=== PATIENT | female | born 1960 | race Caucasian/White ===

== ENCOUNTER → 2020-05-12 13:29 | Outpatient (BNVA) | payer MEDICAID, SELFPAY | PROVIDERS: Visit Provider Orthopaedic Surgery | DX: M17.11 Unilateral primary osteoarthritis, right knee (principal) | CPT/HCPCS: 99212 ==

== ENCOUNTER → 2020-05-21 13:11 | Outpatient (BNVA) | payer MEDICAID, SELFPAY | PROVIDERS: Visit Provider Nurse Practitioner Family | DX: Z01.818 Encounter for other preprocedural examination (principal) | CPT/HCPCS: 99212 ==

== ENCOUNTER 2020-05-22 11:00 | Outpatient (RCR) | payer MEDICAID, SELFPAY ==
[2020-05-12 15:47] LABS: Estimated Average Glucose 123 mg/dL; Hemoglobin A1c % 5.9 %
== END 2020-06-19 11:48 | disposition home or self-care (01) ==
LOC: HO.PTCHIC 11:00
PROVIDERS: Orthopaedic Surgery; PCP Nurse Practitioner Primary Care; Visit Provider Nurse Practitioner Primary Care
DX: M25.562 Pain in left knee (principal)
CPT/HCPCS: 83036; 97110; 97112; 97140

== ENCOUNTER 2020-05-27 12:56 | Outpatient (REF) | payer MEDICAID, SELFPAY ==
[2020-05-27 13:54] LABS: Hematocrit 41.7 % (37-47); Hemoglobin 14.1 g/dl (12.0-16.0); Mean Corpuscular HGB Conc 33.8 g/dl (31.0-35.0); Mean Corpuscular Hemoglobin 32.1 pg (27.0-33.0); Mean Platelet Volume 9.6 fL (9.4-12.3); Platelet Count 270 X10*3/uL (160-400); Red Blood Count 4.39 X10*6/uL (4.20-5.50); Red Cell Distribution Width 12.4 % (11.0-16.0); White Blood Count 8.3 X10*3/uL (4.8-10.8)
[2020-05-27 14:47] LABS: Alanine Aminotransferase 26 U/L (0-31); Albumin Level 4.2 g/dL (3.5-5.0); Alkaline Phosphatase 84 U/L (39-117); Anion Gap 13 (12-20); Aspartate Amino Transferase 26 U/L (5-31); Bilirubin Total 0.3 mg/dL (0.0-1.0); Blood Urea Nitrogen 17 mg/dL (9-16); Calcium 9.1 mg/dL (8.4-10.2); Carbon Dioxide 27 mmol/L (22-29); Chloride 102 mmol/L (96-108); Estimated Glomerular Filt Rate 52; Glucose Random 233 mg/dL (60-115); Potassium 4.1 mmol/l (3.3-5.1); Sodium 138 mmol/L (135-145); Total Protein 6.8 g/dL (6.5-8.0)
== END 2020-05-27 12:57 | disposition home or self-care (01) ==
LOC: HO.LAB 12:56
PROVIDERS: Visit Provider Nurse Practitioner Family
DX: Z12.11 Encounter for screening for malignant neoplasm of colon (principal)
CPT/HCPCS: 36415; 80053; 85027

== ENCOUNTER → 2020-06-19 13:55 | Outpatient (BNVA) | payer MEDICAID, SELFPAY | PROVIDERS: PCP Nurse Practitioner Primary Care; Visit Provider Internal Medicine Cardiovascular Disease | DX: Z01.810 Encounter for preprocedural cardiovascular examination (principal); R00.2 Palpitations; R06.00 Dyspnea, unspecified; I10 Essential (primary) hypertension | CPT/HCPCS: 93005; 99202 ==

== ENCOUNTER → 2020-07-02 11:39 | Outpatient (REF) | payer MEDICAID, SELFPAY ==
--- NOTE | 2020-07-02 10:00 | CA_ITS ---
Acquisition Time: 2020-07-02 11:50:01 Total Exercise Time: 00:05:06 Test Indications: cp Medications: see chart Protocol: FADI Max HR: 169 BPM 105% of Pred: 160 BPM Max BP: 144/080 mmHG Max Work Load: 7.0 METS Exercise stress nuclear using Fadi protocol, total of 5 min 6 sec. Tolerated well, SOB at the end of exercise, pt is asthmatic and used her rescue inh. METS 7.0 and MAPHR up to 105%=-. EKG without any arrhythmia, no ischemic changes during exercise or in recovery. Nuclear images to follow. Normotensive response to exercise. Test reviewed with Dr. Gold. . Referred By: Ramos Lieberman Overread By: Miko Conrad
--- NOTE | 2020-07-02 11:04 | NM_ITS ---
Exercise Myocardial perfusion study Indication: Shortness of breath to evaluate for myocardial ischemia Technique: The patient was brought in for an exercise perfusion study on 07/02/2020. Patient performed exercise as per Moreno protocol and was injected 30 mCi of sestamibi was given intravenously one target HR was achieved. Images were obtained using the SPECT gamma camera interlaced with the gating device. Images were obtained in supine position. Resting perfusion study was performed on 07/04/2020. Patient was administered 30 mCi of sestamibi intravenously at rest. Images were then obtained in supine position. Images obtained with and without CT attenuation. Total DLP 97 mGy-cm. Images were processed with the software and compared side to side in short axis, horizontal long axis and vertical long axis views. Findings: The stress perfusion study showed non attenuated images show normal uptake of radiotracer in all segments of LV myocardium. Attenuation corrected images show minimally reduced uptake in the apex of the LV myocardium. The gated study shows normal LV systolic function with calculated LVEF of greater than 70 %. LV cavity is normal in size. The gated study shows normal systolic wall thickening and contraction of all segments. There is no transient ischemic dilation. Resting study shows non attenuated images show minimally reduced uptake in the apex of the LV myocardium. Attenuation corrected images show mildly to moderately reduced reduced uptake in a small area of the apex of the LV myocardium. Gating at rest reveals normal systolic wall motion with ejection fraction at 73%. The findings are consistent with normal myocardial perfusion. NM/NM cardiolite stress test Impression: 1. Normal myocardial perfusion 2. Gated LVEF is greater than 70% 3. Transient ischemic dilatation not present Stress EKG is negative for ischemia
== END ==
LOC: HO.CARD 11:39
PROVIDERS: Visit Provider Internal Medicine Cardiovascular Disease
DX: R06.00 Dyspnea, unspecified (principal); I10 Essential (primary) hypertension
CPT/HCPCS: 78452; 93017; A9500

== ENCOUNTER → 2020-07-15 08:23 | Outpatient (REF) | payer MEDICAID, SELFPAY ==
--- NOTE | 2020-07-15 08:26 | CA_ITS ---
Transthoracic Echocardiogram Patient (Last, First, Middle): Rhonda Fernández, Gender: Female Date of : 1960 Age: 59 Procedure Date: 07/15/2020 Procedure Type: Transthoracic Echocardiogram Location: OP Height: 160.02 cm Weight: 86.18 kg BSA: 1.89 m2 Heart Rate: bpm BP: 170 / 90 mmHg Dedicated Driver: TAE Referring MD: Ramos Lieberman MD Symptoms: R00.2 - Palpitations Study Quality: Fair/contrast ECG Rhythm: Sinus Conclusions: - The left ventricular systolic function is normal. The visually estimated ejection fraction is between 60-65%. - No obvious valvular pathology seen on this study. Findings Procedure Information Contrast agent, definity, is being given per protocol without apparent complications. Left Ventricle Normal left ventricular cavity size. There is normal left ventricular wall thickness. The left ventricular systolic function is normal. The visually estimated ejection fraction is between 60-65%. There is no evidence of regional wall motion abnormalities. Diastolic function is normal for age. Right Ventricle Normal right ventricular cavity size and systolic function. Atria Both atria are normal in size. Aortic Valve There is a normal trileaflet aortic valve. There is no aortic valve stenosis. There is trace (trivial) aortic valve regurgitation. Mitral Valve The mitral valve appears normal. There is no mitral valve regurgitation. There is no mitral valve stenosis. Pulmonic Valve The pulmonic valve was not well visualized. Tricuspid Valve Normal tricuspid valve structure. There is trace tricuspid valve regurgitation. The pulmonary artery systolic pressure is normal. Great Vessels The aortic annulus, sinuses of valsalva, and asc aorta are normal in size. Venous The inferior vena cava is normal in size and collapses greater than 50% with inspiration. Pericardium/Pleural There is no evidence of pericardial effusion. Prior Study Comparison No prior study available for comparison. Recommendations, Care & Conclusions No obvious valvular pathology seen on this study. Measurements 2D Linear Measurements IVSd: 0.93 0.6-0.9/0.6-1.0 cm LVIDd: 4.18 3.9-5.3/4.2-5.9 cm LVIDd Index: 2.21 2.4-3.2/2.2-3.1 cm/m2 LVIDs: 2.77 2.0-3.6 cm LVPWd: 0.92 0.7-1.1 cm Ao Root: 3.00 2.1-3.5 cm LA Diam: 2.90 2.7-3.8/3.0-4.0 cm LAIDs Index: 1.53 1.5-2.3 cm/m2 LV Mass: 152.07 67-162/88-224 g LV Mass Index: 80.46 43-95/49-115 g/m2 LVOT Diam: 2.00 3.0+(-)1.3 cm 2D Systolic Function EF 4C: 67.10 >55% EF 2C: 65.70 >55% EF BiP: 66.10 >55% Mitral Valve MV Pk E: 0.90 MV PK A: 1.03 MV Decel Time: 271.00 E/A: 0.90 E'Lateral: 10.40 E'Medial: 10.00 E/E' Med: 9.00 E/E' Lat: 8.60 PHT: 79.00 MVA PHT: 2.78 Decel [place]: 3.31 Aortic Valve AoV Pk Jesus: 1.41 AoV Mn Jesus: 0.95 AoV VTI: 0.29 AoV Pk Grad: 8.00 Aov Mn Grad: 4.00 YAMILKA Cont.VTI: 2.34 LVOT LVOT Pk Jesus: 1.01 LVOT Mn Jesus: 0.61 LVOT VTI: 0.22 LVOT Pk Grad: 4.00 LVOT Mn Grad: 2.00 LVOT Diam: 2.00 LVOT Area: 3.14 Diastolic Function MV Pk E: 0.90 MV Pk A: 1.03 E/A: 0.90 E'Medial: 10.00 E/E' Med: 9.00 E' Laterial: 10.40 E/E' Lat: 8.60 Tricuspid Valve TR Pk Jesus: 2.13 TR Pk Grad: 18.00 RA Press: 3.00 RVSP: 21.00 Great Vessels Aorta Ao Root-2D: 3.00 2.0-3.7 cm Ao Asc: 3.40 2.1-3.4 cm Ao Arch: 2.70 Updated in Other Vendor System with Status of Final Noel Gold MD electronically signed on 07/17/2020 4:31:41 PM with status of Final
--- NOTE | 2020-07-15 08:26 | HM_ITS ---
TEST PERFORMED: Cardiac event monitoring. ENROLLMENT PERIOD: 07/15/2020 to 08/14/2020 - 30 days. REQUESTING PHYSICIAN: Dr. Lieberman. INDICATIONS: Palpitations. FINDINGS: In the above monitoring period of 30 days, the underlying rhythm was sinus. The rates ranged from 70 beats per minute to 124 beats per minute. Rare premature atrial contraction, but no other arrhythmias of concern. The patient's symptoms of chest pain, shortness of breath, palpitations are all associated with sinus rhythm only. CONCLUSION: Essentially unremarkable 30-day event monitoring showing sinus rhythm only. No arrhythmias of significance. Noel Gold MD HS/MODL / [id number]
== END ==
LOC: HO.CARD 08:23
PROVIDERS: Visit Provider Internal Medicine Cardiovascular Disease
DX: R00.2 Palpitations (principal); R07.9 Chest pain, unspecified
CPT/HCPCS: 93225; 93270; 93306; Q9957

== ENCOUNTER → 2020-07-22 10:51 | Outpatient (BNVA) | payer MEDICAID, SELFPAY | PROVIDERS: PCP Nurse Practitioner Primary Care; Visit Provider Orthopaedic Surgery | DX: Z76.89 Persons encountering health services in other specified circumstances (principal) ==

== ENCOUNTER 2020-10-01 12:33 | Outpatient (REF) | payer MEDICAID, SELFPAY ==
[2020-10-01 14:19] LABS: MANUAL DIFF FLAG NO
[2020-10-01 14:22] LABS: Basophils Absolute Auto 0.1 X10*3/uL (0.0-0.2); Basophils Percent Auto 0.7 % (0-2); Eosinophils Absolute Auto 0.2 X10*3/uL (0.0-0.4); Eosinophils Percent Auto 2.1 % (0-4); Hematocrit 39.2 % (37-47); Hemoglobin 13.1 g/dl (12.0-16.0); Imm Gran Abs Auto 0.04 X10*3/uL (0.00-0.03); Imm Gran Pct Auto 0.5 % (0.0-0.4); Lymphocytes Absolute Auto 2.4 X10*3/uL (1.2-4.9); Lymphocytes Percent Auto 27.5 % (20-40); Mean Corpuscular HGB Conc 33.4 g/dl (31.0-35.0); Mean Corpuscular Hemoglobin 32.1 pg (27.0-33.0); Mean Corpuscular Volume 96.1 fL (80-98); Mean Platelet Volume 9.3 fL (9.4-12.3); Monocytes Absolute Auto 0.7 X10*3/uL (0.1-1.2); Monocytes Percent Auto 8.7 % (2-11); Neutrophils Absolute Auto 5.2 X10*3/uL (2.0-8.3); Neutrophils Percent Auto 60.5 % (45-73); Platelet Count 268 X10*3/uL (160-400); Red Blood Count 4.08 X10*6/uL (4.20-5.50); Red Cell Distribution Width 12.5 % (11.0-16.0); White Blood Count 8.6 X10*3/uL (4.8-10.8)
[2020-10-01 14:45] LABS: Anion Gap 9 (12-20); Blood Urea Nitrogen 15 mg/dL (9-16); Calcium 8.9 mg/dL (8.4-10.2); Carbon Dioxide 31 mmol/L (22-29); Chloride 105 mmol/L (96-108); Estimated Glomerular Filt Rate > 60; Glucose Random 99 mg/dL (60-115); Potassium 4.6 mmol/L (3.3-5.1); Sodium 140 mmol/L (135-145)
[2020-10-01 15:27] LABS: Estimated Average Glucose 120 mg/dL; Hemoglobin A1c % 5.8 %
== END 2020-10-01 12:34 | disposition home or self-care (01) ==
LOC: HO.LAB 12:33
PROVIDERS: Orthopaedic Surgery; PCP Nurse Practitioner Primary Care; Visit Provider Internal Medicine Cardiovascular Disease
DX: Z01.810 Encounter for preprocedural cardiovascular examination (principal); I10 Essential (primary) hypertension; R06.00 Dyspnea, unspecified; R00.2 Palpitations
CPT/HCPCS: 36415; 80048; 83036; 85025; 93005; 99212

== ENCOUNTER 2020-10-07 14:20 | Outpatient (REF) | payer MEDICAID, SELFPAY ==
--- NOTE | ~2020-10-07 | MM_ITS ---
EXAMINATION: BONE DENSITOMETRY CLINICAL INDICATION: Screening for osteoporosis. COMPARISON: None (current study represents initial baseline exam). TECHNIQUE: Using Easy Voyage DXA System (software version: 13.1) manufactured by [employer], dual-energy x-ray absorptiometry was performed of the lumbar spine and left hip. The images are of good technical quality. Summary results are attached. FINDINGS: AP SPINE L1-L4: BMD 1.260 g/cm2, Z-score 1.3, T-score 0.7, normal. LEFT FEMUR, NECK: BMD 0.978 g/cm2, Z-score 0.4, T-score -0.4, normal. LEFT FEMUR, TOTAL: BMD 1.043 g/cm2, Z-score 0.8, T-score 0.3, normal. IDENTIFIED RISK FACTORS: Early menopause, secondary osteoporosis. HISTORY OF FRACTURE: None listed. MEDICATIONS: Vitamin D. MM/XR DEXA axial skeleton IMPRESSION: 1. DIAGNOSIS: Normal bone density based on the lowest T-score value of -0.4 in the femoral neck applying World Health Organization criteria. 2. 10-YEAR FRACTURE RISK PREDICTION, FRAX: Major osteoporotic fracture (clinical spine, forearm, hip or shoulder) 3.4%. Hip fracture 0.1%. 3. Treatment Recommendations: NOF guidelines recommend consideration for treatment in postmenopausal women and men age 50 and older presenting with the following: -A hip or vertebral (clinical or morphometric) fracture. -T-score less than or equal to -2.5 at the femoral neck or spine after appropriate evaluation to exclude secondary causes. -Low bone mass at the hip or spine and a 10-year fracture probability by FRAX of greater than or equal to 3% for hip fracture or greater than or equal to 20% for major osteoporotic fracture based on the [place] adapted WHO algorithm. 4. Other Recommendations: All treatment decisions require clinical judgment and consideration of individual patient factors, including patient preferences, comorbidities, previous drug use, risk factors not captured in the FRAX model (e.g. frailty, falls, vitamin D deficiency, increased bone turnover, interval significant decline in bone density) and possible under or overestimation of fracture risk by FRAX. FUTURE SCAN RECOMMENDATION: People with diagnosed cases of osteoporosis or at high risk for fracture should have regular bone mineral density tests. For patients eligible for Medicare, routine testing is allowed once every 2 years. The testing frequency can be increased to one year for patients who have rapidly progressing disease, those who are receiving or discontinuing medical therapy to restore bone mass, or have additional risk factors.
== END 2020-10-07 14:21 | disposition home or self-care (01) ==
LOC: HO.MAMMO 14:20
PROVIDERS: Visit Provider Nurse Practitioner Primary Care
DX: Z13.820 Encounter for screening for osteoporosis (principal); Z78.0 Asymptomatic menopausal state; Z79.899 Other long term (current) drug therapy
CPT/HCPCS: 77080

== ENCOUNTER → 2020-10-22 14:04 | Outpatient (BNVA) | payer MEDICAID, SELFPAY | PROVIDERS: PCP Nurse Practitioner Primary Care; Visit Provider Physician Assistant ==

== ENCOUNTER 2020-10-27 09:53 | Outpatient (REF) | payer MEDICAID, SELFPAY ==
--- NOTE | 2020-10-27 10:58 | ECG_ITS ---
Test Reason : PREOP Blood Pressure : / mmHG Vent. Rate : 073 BPM Atrial Rate : 073 BPM P-R Int : 128 ms QRS Dur : 084 ms QT Int : 414 ms P-R-T Axes : 042 013 032 degrees QTc Int : 456 ms Normal sinus rhythm Normal ECG When compared with ECG of 13-JUN-2017 21:49, No significant change was found Referred By: Chai Sebastian Electronically Signed By:TOBI RIZZO
[2020-10-27 11:44] LABS: MANUAL DIFF FLAG NO
[2020-10-27 11:51] LABS: Basophils Absolute Auto 0.1 X10*3/uL (0.0-0.2); Eosinophils Absolute Auto 0.2 X10*3/uL (0.0-0.4); Eosinophils Percent Auto 3.1 % (0-4); Hematocrit 41.7 % (37-47); Imm Gran Abs Auto 0.04 X10*3/uL (0.00-0.03); Imm Gran Pct Auto 0.6 % (0.0-0.4); Lymphocytes Absolute Auto 1.9 X10*3/uL (1.2-4.9); Lymphocytes Percent Auto 27.5 % (20-40); Mean Corpuscular HGB Conc 33.6 g/dl (31.0-35.0); Mean Corpuscular Hemoglobin 32.3 pg (27.0-33.0); Mean Corpuscular Volume 96.3 fL (80-98); Mean Platelet Volume 9.6 fL (9.4-12.3); Monocytes Absolute Auto 0.7 X10*3/uL (0.1-1.2); Monocytes Percent Auto 9.4 % (2-11); Neutrophils Absolute Auto 4.1 X10*3/uL (2.0-8.3); Neutrophils Percent Auto 58.4 % (45-73); Platelet Count 299 X10*3/uL (160-400); Red Blood Count 4.33 X10*6/uL (4.20-5.50); Red Cell Distribution Width 12.8 % (11.0-16.0); White Blood Count 7.1 X10*3/uL (4.8-10.8)
[2020-10-27 12:22] LABS: Anion Gap 14 (12-20); Blood Urea Nitrogen 20 mg/dL (9-16); Carbon Dioxide 29 mmol/L (22-29); Chloride 103 mmol/L (96-108); Estimated Glomerular Filt Rate 59; Glucose Random 111 mg/dL (60-115); Potassium 4.3 mmol/L (3.3-5.1); Sodium 142 mmol/L (135-145)
== END 2020-10-27 09:54 | disposition home or self-care (01) ==
LOC: HO.LAB 09:53
PROVIDERS: PCP Nurse Practitioner Primary Care; Visit Provider Orthopaedic Surgery
DX: Z01.812 Encounter for preprocedural laboratory examination (principal); Z01.810 Encounter for preprocedural cardiovascular examination
CPT/HCPCS: 36415; 80048; 85025; 93005

== ENCOUNTER 2020-11-04 12:46 | Day surgery (SDC) | payer MEDICAID, SELFPAY ==
--- NOTE | 2020-10-31 09:12 | HO.ANESPROP2 ---
Documented by User: Chiara Young 10/31/20 09:19 HPI - Anesthesia Eval Consult details Narrative: 59yo F for Colonoscopy Cardiac cleared at [facility] opioids prn PMFSH Active Problems Active Problems: All Active Problems (Updated 10/22/20 @ 14:32 by Sue Castellon PA-C) Encounter for screening colonoscopy (Acute) Diabetes mellitus (Acute) Hypertension (Acute) Preoperative cardiovascular examination (Acute) HART (dyspnea on exertion) (Acute) Palpitations (Acute) Primary osteoarthritis of right knee (Acute) Past Medical History Medical History Diabetes mellitus Erosive osteoarthritis Hypertension Obesity Palpitations Primary osteoarthritis of knees, bilateral Primary osteoarthritis of right knee Family History Family History Mother Hx of acute arthritis Father History of Parkinson's disease Surgical History Surgical History H/O Spinal surgery History of Social History Social History Alcohol intake: never Smoking Status: Never smoker Use of substances other than those prescribed or required for medical reasons: No Advance Directives: No Advance Directives Information Provided: Yes Current occupational status: unemployed Current occupation: Right [employer] Meds Allergies Allergy/AdvReac Type Severity Reaction Status Date / Time pineapple [PINEAPPLE] Allergy Unknown TONGUE Verified 10/22/20 14:04 SWELLS Home Medications Medication Instructions Recorded Confirmed Last Taken Type amlodipine 5 mg tablet 5 mg PO DAILY 05/09/20 10/27/20 Unknown History oxycodone-acetaminophen 5 mg-325 1 tab PO Q8H PRN 06/19/20 10/27/20 Unknown History mg tablet metformin 500 mg tablet 500 mg PO BID tab 10/22/20 10/27/20 Unknown History Exam Exam Date and Time: October 31, 2020911 Narrative Narrative: EKG 10/2020 Vent. Rate : 073 BPM Atrial Rate : 073 BPM P-R Int : 128 ms QRS Dur : 084 ms QT Int : 414 ms P-R-T Axes : 042 013 032 degrees QTc Int : 456 ms Normal sinus rhythm Normal ECG When compared with ECG of 13-JUN-2017 21:49, No significant change was found ECHO 06/2020 Conclusions: - The left ventricular systolic function is normal. The visually estimated ejection fraction is between 60-65%. - No obvious valvular pathology seen on this study. NM cardiolite stress test 06/2020 Impression: 1. Normal myocardial perfusion 2. Gated LVEF is greater than 70% 3. Transient ischemic dilatation not present Stress EKG is negative for ischemia 30Day CARLOS CONCLUSION: Essentially unremarkable 30-day event monitoring showing sinus rhythm only. No arrhythmias of significance. Assessment and Plan Assessment Anesthesia Assessment: Chart Reviewed Documented by User: Rebeca Fox 11/04/20 13:09 PMF Past Medical History Medical History Diabetes mellitus Erosive osteoarthritis Hypertension Obesity Palpitations Primary osteoarthritis of knees, bilateral Primary osteoarthritis of right knee Family History Family History Mother Hx of acute arthritis Father History of Parkinson's disease Surgical History Surgical History H/O Spinal surgery History of Social History Social History Alcohol intake: never Smoking Status: Never smoker Use of substances other than those prescribed or required for medical reasons: No Advance Directives: No Advance Directives Information Provided: Yes Current occupational status: unemployed Current occupation: Right [employer] Meds Allergies Allergy/AdvReac Type Severity Reaction Status Date / Time pineapple [PINEAPPLE] Allergy Unknown TONGUE Verified 10/22/20 14:04 SWELLS Home Medications Medication Instructions Recorded Confirmed Last Taken Type amlodipine 5 mg tablet 5 mg PO DAILY 05/09/20 10/27/20 Unknown History oxycodone-acetaminophen 5 mg-325 1 tab PO Q8H PRN 06/19/20 10/27/20 Unknown History mg tablet metformin 500 mg tablet 500 mg PO BID tab 10/22/20 10/27/20 Unknown History Exam Airway Mallampati Class: II TM Dist: >3cm Neck ROM: Full Assessment and Plan Assessment Anesthesia Assessment: Anesthesia Plan Discussed and Chart Reviewed Final Anesthetic Review NPO: Yes ASA Class: III Final Preanesthetic Review: No Changes in Pt Med Stat, Meds/Allgs Chart Reviewed and Consent Obtained/Reviewed Patient Risk: Intermediate Procedure Risk: Low Assessment/Block/Sedation in SS: Assess/Block/Sedation-SS Anesthetic Plan Anesthetic Plan: MAC: Disposition: Standard PACU
[2020-11-04] VITALS (8 sets, daily range): BP systolic 74–116; BP diastolic 32–66; PULSE 63–84; RESP 14–16; TEMP 36.2–36.3; O2SAT 94–99; BMI 32.5
[2020-11-04] MEDS: Lactated Ringers 1,000 ML 100 ML IVCONT (12:53)
--- NOTE | 2020-11-04 12:53 | W.PM.OPN ---
Operative Note Operative Note Date of Service: 11/07/20 Narrative: Pre-op diagnosis: Colon cancer screening Post-op diagnosis: other (Colon polyps, diverticulosis, hemorrhoids) Procedure: COLONOSCOPY TO CECUM WITH BIOPSIES AND SNARE POLYPECTOMY Consent: Indications for the procedure and potential complications of bleeding, perforation, reaction to medications and missed diagnosis were discussed with the patient and informed consent was obtained. Instrument: Olympus PCF H 190 L variable stiffness pediatric colonoscope Monitoring: Vital signs and clinical assessment, intermittent blood pressure monitoring, continuous EKG monitoring, Pulse oximetry and Carbon Dioxide monitoring were done throughout the procedure. Colon withdrawl time was 35 minutes. Procedure: The patient was placed in the left lateral decubitis position and pre-procedure medications were administered. After a digital rectal examination of the ano-rectum, the video colonoscope was inserted into the rectum and advanced through the colon to the cecum. The colonoscope was slowly withdrawn in a retrograde panoramic fashion and the colon mucosa was carefully examined including a retroflexed view of the rectum. Findings and interventions are described below. Procedure Difficulty: Without difficulty Findings: Terminal Ileum: Not evaluated Cecum: Normal Ascending Colon: Normal Transverse Colon: A 4-5 mm diminutive appearing polyp removed with the cold biopsy Descending Colon: Moderate diverticulosis Sigmoid Colon: 4-5 mm sessile polyp removed with the cold biopsy. A 7-8 mm sessile polyp removed with cold snare. A 12-15 mm sessile polyp at 35 cm removed with a hot snare. Moderate diverticulosis Rectum: For 4-5 mm diminutive appearing polyp which was biopsy. Ano-rectum: Small internal hemorrhoids Colon preparation: Good after copious irrigation Impression and Post Procedure Diagnosis: Colonoscopy Findings: Four small to medium sized polyps removed Moderate diverticulosis seen in the left colon Small hemorrhoids on retroflexed exam. Plan: Await pathology results Patient will be sent a letter with biopsy results and recommendations for follow-up colonoscopy. Repeat Colonoscopy interval based on path results - in 3 years if polyps are adenomatous and 10 years if polyps are hyperplastic. Above findings were reviewed with the patient and colon polyps and diverticulosis handouts were given in the discharge area Surgeon: Bonnie Pearson MD Anesthesia: MAC (Lety Harrison CRNA) Supervisor Frame Sample And Pattern: Isadora Ferreira Estimated blood loss (mL): 0 Pathology: other (A. TC polyp x 1, B. SC polyps x 2, C. SC polyp at 35 cms, D. Rectal polyp x 1) Condition: stable Disposition: PACU
--- NOTE | 2020-11-04 12:53 | MHC.SHP ---
Pre-Procedural Eval Section A The patient is an INPATIENT: No Changes since office visit: Yes Patient answered all questions; No Cold of Flu in the past 2 weeks, No New Medical Problems and No Changes in Medication The History & Physical has been completed within 30 days and I have reviewed it.: Yes Section B Chief Complaint: Screening Allergies: Allergies Allergy/AdvReac Type Severity Reaction Status Date / Time pineapple [PINEAPPLE] Allergy Unknown TONGUE Verified 10/22/20 14:04 SWELLS Exam Surgical H&P Exam: Normal: Heart, Normal: Lungs, Normal: Extremities and Normal: Abdomen Plan Diagnosis/Plan: Unchanged I have reviewed the history and physical and performed a pertinent physical examination on my patient. No changes have occurred unless specified.
[2020-11-04 12:55] LABS: Glucose, Whole Blood 96 mg/dL (60-115)
== END 2020-11-04 15:14 | disposition home or self-care (01) ==
PROVIDERS: PCP Nurse Practitioner Primary Care; Visit Provider Internal Medicine Gastroenterology
PROC: 0DJD8ZZ Inspection of Lower Intestinal Tract, Via Natural or Artificial Opening Endoscopic (ICD-10-PCS; CPT 45378; principal; 2020-11-04 13:30)
DX: Z12.11 Encounter for screening for malignant neoplasm of colon (principal); D12.5 Benign neoplasm of sigmoid colon; K62.1 Rectal polyp; K57.30 Diverticulosis of large intestine without perforation or abscess without bleeding; K64.8 Other hemorrhoids; I10 Essential (primary) hypertension; E11.9 Type 2 diabetes mellitus without complications; Z79.84 Long term (current) use of oral hypoglycemic drugs; Z79.899 Other long term (current) drug therapy
CPT/HCPCS: 45385; 45380; 82947; 88305

== ENCOUNTER 2020-11-06 13:01 | Outpatient (RCR) | payer MEDICAID, SELFPAY ==
--- NOTE | 2020-11-06 13:58 | MHC.PT.EP ---
[facility] [place] [facility] [place] [facility] [place] [facility] [address] Reggie Hernandez [address] [phone] F: [phone] F: [phone] F: [phone] F: [phone] Physical Therapy Plan of Care Date of Evaluation: Date of Surgery: Diagnosis: unilateral primary OA, R knee PREHAB R TKA 12/02 Assessment: 60 y/o F referred to PT with R knee OA and prehab for upcoming TKA 12/02/20. She reports pain and difficulty with stairs, walking, and standing. Examination shows decreased R knee AROM, decreased B LE strength, decreased B quad length, and impaired gait pattern. Recommend PT for 2 additional visits prior to surgery for LE strengthening, ROM, and education to prepare for upcoming TKA. Pt will be going to [place] for 2 weeks, therefore distributed extensive HEP for vacation and pt will f/u in 2 visits. Frequency and Duration: The patient will be seen 2x/week for 2 weeks Short Term Goals: 2 weeks: 1. I with HEP Intermediate Goals: 3 weeks: 1. I with HEP 2. Pt will improve R knee AROM to 0-125 3. Pt will demonstrate B LE strength of one MMT grade improvement to faciliate stairs. Treatment Plan: Modalities to reduce pain, spasms and effusion. Manual therapy to restore motion and function. Therapeutic exercise to improve strength and flexibility. Neuromuscular re-education for posture and balance. Therapeutic activities to return to functional activities of daily living. Electronically signed by: Oly Lucas PT DPT Please sign and return to therapist. Thank you for your referral.
--- NOTE | 2020-11-26 15:54 | MHC.PT.DC ---
[facility] [place] [facility] [place] [facility] [place] [facility] [address] [phone] F: [phone] F: [phone] F: [phone] F: [phone] Physical Therapy Discharge Report Diagnosis: unilateral primary OA, R knee PREHAB R TKA 12/02 Date of Surgery: Date of Evaluation: 11/06/20 Date of Discharge: 11/26/20 Treatments to Date: 1 Cancellations to Date: 0 No Shows to Date: 0 Discharge Status: Patient Elected to Stop Discharge Summary: Pt only attended for evaluation and then called to self d/c due to transportation issues. Electronically signed by: Oly Lucas PT DPT Please sign and return to therapist. Thank you for your referral.
== END 2020-11-26 15:55 | disposition home or self-care (01) ==
LOC: HO.PT 13:01
PROVIDERS: PCP Nurse Practitioner Primary Care; Visit Provider Orthopaedic Surgery
DX: M17.11 Unilateral primary osteoarthritis, right knee (principal)
CPT/HCPCS: 97110; 97161

== ENCOUNTER → 2020-11-10 11:52 | Outpatient (BNVA) | payer MEDICAID, SELFPAY | PROVIDERS: PCP Nurse Practitioner Primary Care; Visit Provider Physician Assistant | DX: D12.6 Benign neoplasm of colon, unspecified (principal); K57.30 Diverticulosis of large intestine without perforation or abscess without bleeding; K64.9 Unspecified hemorrhoids | CPT/HCPCS: 99212 ==

== ENCOUNTER 2020-11-27 08:06 | Outpatient (REF) | payer MEDICAID, SELFPAY ==
--- NOTE | ~2020-11-27 | XR_ITS ---
EXAMINATION: XR KNEE, RIGHT CLINICAL INFORMATION: Right knee pain. COMPARISON: None TECHNIQUE: Two views of the right knee. FINDINGS: There is significant loss of medial, lateral and patellofemoral compartment joint space without bony erosive changes or loose bodies. There is minimal suprapatellar joint effusion. No soft tissue abnormality seen. XR/XR knee RT 2V IMPRESSION: Minimal suprapatellar joint effusion. Mild degenerative changes of the tricompartment.
== END 2020-11-27 08:07 | disposition home or self-care (01) ==
LOC: HO.HOSX 08:06
PROVIDERS: Visit Provider Physician Assistant
DX: M17.11 Unilateral primary osteoarthritis, right knee (principal)
CPT/HCPCS: 73560; 99212

== ENCOUNTER 2020-12-02 12:25 | Inpatient (IN) | payer MEDICAID, SELFPAY ==
--- NOTE | 2020-11-27 09:55 | P.CONAN_ITS ---
Documented by User: Chiara Hannah 12/01/20 12:24 HPI - Anesthesia Eval Consult details Narrative: 60yo F for Right Knee Replacement Total Cardiac cleared @ intermed risk PCP cleared PMFSH Active Problems Active Problems: All Active Problems (Updated 11/11/20 @ 08:54 by Sue Castellon PA-C) Hemorrhoids (Acute) Diverticulosis large intestine w/o perforation or abscess w/o bleeding (Acute) Adenomatous colon polyp (Acute) Encounter for screening colonoscopy (Acute) Diabetes mellitus (Acute) Preoperative cardiovascular examination (Acute) HART (dyspnea on exertion) (Acute) Primary osteoarthritis of right knee (Acute) Past Medical History Medical History Asthma COVID-19 vaccine series completed Diabetes mellitus Elevated cholesterol Erosive osteoarthritis Full dentures Hypertension Low back pain Obesity Palpitations Primary osteoarthritis of knees, bilateral Primary osteoarthritis of right knee Family History Family History Mother Hx of acute arthritis Father History of Parkinson's disease Family history of problems with anesthesia: No Surgical History Surgical History H/O Spinal surgery History of Hx of colonoscopy Hx of reduction mammoplasty Hx of tonsillectomy History of Problems with Anesthesia: No Social History Social History Household Members: Other Household Members Other:: Room mate Alcohol intake: never Smoking Status: Never smoker Use of substances other than those prescribed or required for medical reasons: No Current occupational status: unemployed Narrative Narrative: No recent illness. No CP or SOB within limits of pain. Meds Allergies Allergy/AdvReac Type Severity Reaction Status Date / Time pineapple [PINEAPPLE] Allergy Unknown TONGUE Verified 11/27/20 11:11 SWES Home Medications Medication Instructions Recorded Confirmed Last Taken Type amlodipine 5 mg tablet 5 mg PO DAILY 05/09/20 11/27/20 12/02/20 History oxycodone-acetaminophen 5 mg-325 1 tab PO Q8H PRN 06/19/20 11/27/20 Unknown History mg tablet metformin 500 mg tablet 1,000 mg PO BID tab 10/22/20 11/27/20 Unknown History albuterol sulfate [Proventil HFA] 2 puff INHALATION Q4-6H PRN 11/27/20 11/27/20 Unknown History amitriptyline 50 mg PO BEDTIME 11/27/20 11/27/20 Unknown History atorvastatin 40 mg PO BEDTIME 11/27/20 11/27/20 Unknown History baclofen 10 mg PO DAILY 11/27/20 11/27/20 Unknown History fluticasone propionate [Flovent] INHALATION 11/27/20 Unknown History Exam Exam Date and Time: November 27, 2020 0955 Pertinent Lab Results Pertinent Lab Results: Laboratory Tests 10/01/20 10/27/20 10/27/20 14:05 11:05 11:05 WBC 7.1 Hgb 14.0 Hct 41.7 Plt Count 299 Sodium 142 Potassium 4.3 Chloride 103 Carbon Dioxide 29 BUN 20 H Creatinine 0.96 Hemoglobin A1c % 5.8 Lab Results 11/27/20 11/27/20 11/27/20 Range/Units 12:30 13:09 Unknown Estimat Average Glucose 120 mg/dL Hemoglobin A1c % 5.8 % Nasal Screen MRSA (PCR) NEGATIVE (Negative) Nasal S. aureus Screen POSITIVE A (Negative) Nasal MRSA/S.aureus Interp SEE NOTE Blood Type A Positive Antibody Screen NEGATIVE Narrative Narrative: Narrative: EKG 10/2020 Vent. Rate : 073 BPM Atrial Rate : 073 BPM P-R Int : 128 ms QRS Dur : 084 ms QT Int : 414 ms P-R-T Axes : 042 013 032 degrees QTc Int : 456 ms Normal sinus rhythm Normal ECG When compared with ECG of 13-JUN-2017 21:49, No significant change was found ECHO 06/2020 Conclusions: - The left ventricular systolic function is normal. The visually estimated ejection fraction is between 60-65%. - No obvious valvular pathology seen on this study. NM cardiolite stress test 06/2020 Impression: 1. Normal myocardial perfusion 2. Gated LVEF is greater than 70% 3. Transient ischemic dilatation not present Stress EKG is negative for ischemia 30Day CARLOS CONCLUSION: Essentially unremarkable 30-day event monitoring showing sinus rhythm only. No arrhythmias of significance. Airway Mallampati Class: II (Small mouth) TM Dist: >3cm Denture: Upper Partial: Lower Heart: RRR Lungs: CTAB Assessment and Plan Assessment Anesthesia Assessment: Anesthesia Plan Discussed and PAT Visit Documented by User: Rebeca Fox 12/02/20 09:37 PMFSH Past Medical History Medical History Asthma COVID-19 vaccine series completed Diabetes mellitus Elevated cholesterol Erosive osteoarthritis Full dentures Hypertension Low back pain Obesity Palpitations Primary osteoarthritis of knees, bilateral Primary osteoarthritis of right knee Family History Family History Mother Hx of acute arthritis Father History of Parkinson's disease Surgical History Surgical History H/O Spinal surgery History of Hx of colonoscopy Hx of reduction mammoplasty Hx of tonsillectomy Social History Social History Household Members: Other Household Members Other:: Room mate Alcohol intake: never Smoking Status: Never smoker Use of substances other than those prescribed or required for medical reasons: No Current occupational status: unemployed Meds Allergies Allergy/AdvReac Type Severity Reaction Status Date / Time pineapple [PINEAPPLE] Allergy Unknown TONGUE Verified 11/27/20 11:11 SWELLS Home Medications Medication Instructions Recorded Confirmed Last Taken Type amlodipine 5 mg tablet 5 mg PO DAILY 05/09/20 11/27/20 12/02/20 History oxycodone-acetaminophen 5 mg-325 1 tab PO Q8H PRN 06/19/20 11/27/20 Unknown History mg tablet metformin 500 mg tablet 1,000 mg PO BID tab 10/22/20 11/27/20 Unknown History albuterol sulfate [Proventil HFA] 2 puff INHALATION Q4-6H PRN 11/27/20 11/27/20 Unknown History amitriptyline 50 mg PO BEDTIME 11/27/20 11/27/20 Unknown History atorvastatin 40 mg PO BEDTIME 11/27/20 11/27/20 Unknown History baclofen 10 mg PO DAILY 11/27/20 11/27/20 Unknown History fluticasone propionate [Flovent] INHALATION 11/27/20 Unknown History Assessment and Plan Assessment Anesthesia Assessment: Anesthesia Plan Discussed and Chart Reviewed Final Anesthetic Review NPO: Yes ASA Class: III Final Preanesthetic Review: No Changes in Pt Med Stat, Meds/Allgs Chart Review ed, Consent Obtained/Reviewed and Anes Risks/Benef Reviewed Patient Risk: Intermediate Procedure Risk: Intermediate Assessment/Block/Sedation in SS: Assess/Block/Sedation-SS Anesthetic Plan Anesthetic Plan: Spinal and Regional Block Disposition: Standard PACU
[2020-11-27 11:53] VITALS: BP 134/84; PULSE 86; RESP 16; O2SAT 98; BMI 34.0
[2020-11-27 14:37] LABS: MRSA Nasal PCR NEGATIVE (Negative); SA Nasal PCR POSITIVE (Negative)
[2020-11-27 15:12] LABS: Estimated Average Glucose 120 mg/dL; Hemoglobin A1c % 5.8 %
[2020-12-02] VITALS (14 sets, daily range): BP systolic 88–134; BP diastolic 54–74; PULSE 77–97; RESP 12–20; TEMP 35.3–36.6; O2SAT 92–97
--- NOTE | ~2020-12-02 | XR_ITS ---
EXAMINATION: XR KNEE, RIGHT CLINICAL INFORMATION: Knee replacement COMPARISON: Preoperative x-ray 12/03/2020 TECHNIQUE: Two views of the right knee. FINDINGS: There is a new 3 component right knee replacement in satisfactory position. No fracture or dislocation is seen. There are postoperative changes to the soft tissues. XR/XR knee RT 2V IMPRESSION: Satisfactory appearance of right knee replacement.
[2020-12-02] MEDS: ceFAZolin Sodium/Dextrose,Iso 2 GM/50 ML PIGGYBACK IV ×2 (08:11→17:14)
[2020-12-02] MEDS: Gabapentin 600 MG TABLET PO (08:11)
[2020-12-02] MEDS: Lactated Ringers 1,000 ML 100 ML IVCONT (08:12)
[2020-12-02 08:17] LABS: COVID-19 Test Negative (Negative)
[2020-12-02 09:35] LABS: Glucose, Whole Blood 109 mg/dL (60-115)
--- NOTE | 2020-12-02 09:57 | MHC.SHP ---
Pre-Procedural Eval Section A The patient is an INPATIENT: No Changes since office visit: Yes Patient answered all questions; No Cold of Flu in the past 2 weeks, No New Medical Problems and No Changes in Medication The History & Physical has been completed within 30 days and I have reviewed it.: Yes Section B Chief Complaint: Osteoarthritis Right Knee Allergies: Allergies Allergy/AdvReac Type Severity Reaction Status Date / Time pineapple [PINEAPPLE] Allergy Unknown TONGUE Verified 11/27/20 11:11 ROCKY Plan I have reviewed the history and physical and performed a pertinent physical examination on my patient. No changes have occurred unless specified.
--- NOTE | 2020-12-02 12:12 | PM.OP ---
Brief Operative Note Date of Service: 12/02/20 Pre-op diagnosis: right knee OA Post-op diagnosis: same Procedure: RIght TKA Implants: [employer] Surgeon: Chai Sebastian MD Anesthesia: regional and spinal Was an Mobile Application Tester used for this Procedure?: Yes Mobile Application Tester: Ponce Palmer Estimated blood loss (mL): 150 IV fluids (mL): 800 Pathology: other Condition: stable Disposition: PACU
--- NOTE | 2020-12-02 12:13 | W.PM.OPN ---
Operative Note Operative Note Date of Service: 12/02/20 Narrative: Pre-op diagnosis: right knee OA Post-op diagnosis: same Procedure: RIght TKA Implants: [place] [employer] 09/16/A Surgeon: Chai Sebastian MD Anesthesia: regional and spinal Was an Loading Manager used for this Procedure?: Yes Loading Manager: Ponce Palmer Estimated blood loss (mL): 150 IV fluids (mL): 800 Pathology: other Condition: stable Disposition: PACU Procedure in detail: Patient was brought to the operating room and prepped and draped in standard sterile fashion. A time-out was called to identify proper site proper procedure proper surgeon IV antibiotics were administered. 1 g of IV tranexamic acid was also administered. I began by making a midline incision down to the retinaculum and performed a medial parapatellar arthrotomy. The patella was translated laterally and the knee was flexed up. I performed a small medial peel and resected the infrapatellar fat pad. There was eburnation of the medial compartment. Mathews's line was then used to drill my intramedullary femoral guide and my distal femur cut was made in 5 degrees of valgus. I then measured a 3 femur and placed my cutting guide and made my anterior posterior and chamfer cuts protecting the soft tissues at all times. Once I was happy with my cut I turned my attention to the tibia. In line with the tibial crest and with a 3 degree posterior slope I made my distal tibial cut protecting the PCL the posterior soft tissues at all times. An extension block was used to confirm appropriate amount of bony resection. I then sized a 2 tibia and which provided tibial coverage I placed my trial and with the trial femur in place took the knee through range of motion. I was satisfied with the extension and flexion as well as the stability at 0, 30 and 90 degrees. This was a varus knee with tight MCL. An medioal peel and anterior release was perfromed. I then turned my attention to the patella where I removed 1 cm from the undersurface of the patella and then trialed a 29a patellar button . Again the knee was taken through range of motion I was satisfied with the tracking. I then returned to the femur and drilled my femoral lug holes and prepared the tibia. Femoral bone plug was then placed and the knee was irrigated copiously. I then press fit the patella, tibia and femur in standard fashion. I trialed different inserts until I was satisfied with a 9. There was full extension and stable thorughout her full arc of motion. I then placed the final insert and performed a 3 minutes iodine soak with local TXA. The knee was then closed with a running Quill suture, a 3 0 Vicryl and elmira on the skin. Patient was then placed in sterile dressing and brought to recovery room in stable condition. There were no known complications.
[2020-12-02] MEDS: oxyCODONE HCl Immed Release 5 MG TABLET PO ×3 (13:44→21:50)
[2020-12-02] MEDS: Acetaminophen 325 MG TABLET 650 MG PO ×2 (13:44→20:20)
[2020-12-02] MEDS: Sodium Chloride 0.45 % 1,000 ML 80 ML IVCONT (14:58)
--- NOTE | 2020-12-02 15:41 | PM.IMCN ---
History of Present Illness Data of Consult Service Date: 12/02/20 Primary Care Provider: Rose Mary Castellano NP [facility] Reason for consult: Diabetes A 60 years old lady with PMH of diabetes type 2, osteoarthritis among others who presented to the hospital for elective right knee arthroplasty. Surgery went well. Orthopedic team as the hospitalist team to evaluate the patient for her medical problems and diabetes control. Review of Systems Review of Systems: No fever, chills or weakness No chest pain, palpitation No shortness of breath or coughing No abdominal pain, nausea or vomiting No urinary symptoms No any rash or wounds PMFSH Medical History Asthma COVID-19 vaccine series completed Diabetes mellitus Elevated cholesterol Erosive osteoarthritis Full dentures Hypertension Low back pain Obesity Palpitations Primary osteoarthritis of knees, bilateral Primary osteoarthritis of right knee Family History Mother Hx of acute arthritis Father History of Parkinson's disease Surgical History H/O Spinal surgery History of Hx of colonoscopy Hx of reduction mammoplasty Hx of tonsillectomy Social History Household Members: Other Household Members Other:: Room mate Housing: Apartment Are you a primary patient care representative to a significant other at home: No Do you presently have visiting nurse or other home services: Yes ([employer]) Alcohol intake: never Smoking Status: Never smoker Use of substances other than those prescribed or required for medical reasons: No Have you been hit, kicked, punched, or otherwise hurt by someone within the past year? If so, by whom?: No Do you feel safe in your current relationship?: No Current Relationship Is there a partner from a previous relationship who is making you feel unsafe now?: No Are you made to feel afraid or neglected: No Spiritual Healthcare Practices: none Nondenominational Healthcare Practices: none Cultural Healthcare Practices: none Are you DNR?: No Advance Directives: No Advance Directives Information Provided: No Advance Directives on File: No Do you have thoughts of harming others: None Do you have a plan to hurt others: No Plan Recently lost weight without trying: No Eating poorly because of decreased appetite: No Nutrition Risks: No Nutritional Risk Patient : No Current occupational status: unemployed Meds Allergies Allergy/AdvReac Type Severity Reaction Status Date / Time pineapple [PINEAPPLE] Allergy Unknown TONGUE Verified 11/27/20 11:11 SWELLS Active Medications: Current Medications Generic Name Dose Route Start Last Admin Trade Name Freq PRN Reason Stop Dose Admin Acetaminophen 650 mg 12/02/20 14:35 Acetaminophen 325 Mg Tablet PO Q6H PRN Pain, Mild (Pain Scale 1-3) Albuterol Sulfate 2 puff 12/02/20 15:19 Albuterol Sulfate 90 Mcg 8 Gm Inhaler INHALE Q4H PRN Shortness Of Breath Or Wheezing Amitriptyline HCl 50 mg 12/02/20 21:00 Amitriptyline Hcl 50 Mg Tablet PO BEDTIME [facility] Amlodipine Besylate 5 mg 12/03/20 09:00 Amlodipine Besylate 5 Mg Tablet PO DAILY [facility] Protocol Aspirin 325 mg 12/03/20 11:00 Aspirin 325 Mg Tablet PO BID [facility] Atorvastatin Calcium 40 mg 12/02/20 21:00 Atorvastatin Calcium 40 Mg Tablet PO BEDTIME [facility] Baclofen 10 mg 12/03/20 09:00 Baclofen 10 Mg Tablet PO DAILY [facility] Celecoxib 200 mg 12/02/20 21:00 Celecoxib 200 Mg Capsule PO BID [facility] Docusate Sodium 100 mg 12/02/20 21:00 Docusate Sodium 100 Mg Capsule PO BID [facility] Hydrochlorothiazide 12.5 mg 12/03/20 09:00 Hydrochlorothiazide 12.5 Mg Tablet PO DAILY [facility] Protocol Hydromorphone HCl 0.25 mg 12/02/20 14:35 Hydromorphone Hcl 0.5 Mg/0.5 Ml Syringe IVPUSH Q4H PRN Pain, Severe (Pain Scale 7-10) Cefazolin Sodium/Dextrose 2 gm in 50 mls @ 100 mls/hr 12/02/20 16:30 Ancef IV 12/02/20 16:59 POSTOP ONE Sodium Chloride 1,000 mls @ 80 mls/hr 12/02/20 14:35 12/02/20 14:58 IVCONT 80 mls/hr .[id number] [facility] Administration Insulin Human Lispro 0 unit 12/02/20 16:30 Insulin Lispro 100 Unit/Ml 3 Ml Vial SUBCUT QIDACHS [facility] Protocol Naloxone HCl 0.2 mg 12/02/20 14:35 Naloxone Hcl 0.4 Mg/Ml Vial IVPUSH Q2M PRN Excessive sedation or RR < 8 Ondansetron HCl 4 mg 12/02/20 14:35 Ondansetron Hcl 4 Mg/2 Ml Vial IVPUSH Q8H PRN Nausea and Vomiting Oxycodone HCl 5 mg 12/02/20 14:35 Oxycodone Hcl Immed Release 5 Mg Tablet PO Q4H PRN Pain, Moderate (Pain Scale 4-6 Oxycodone HCl 10 mg 12/02/20 21:00 Oxycodone Hcl Er 10 Mg Tab.Er.12h PO BID [facility] Sodium Chloride 3 ml 12/02/20 16:00 12/02/20 15:31 0.9 % Sodium Chloride Flush 3 Ml Syringe IVFLUSH Not Given QSHIFT [facility] Home Medications Medication Instructions Recorded Confirmed Last Taken Type amlodipine 5 mg tablet 5 mg PO DAILY 05/09/20 11/27/20 12/02/20 History oxycodone-acetaminophen 5 mg-325 1 tab PO Q8H PRN 06/19/20 11/27/20 Unknown History mg tablet metformin 500 mg tablet 1,000 mg PO BID tab 10/22/20 11/27/20 Unknown History albuterol sulfate [Proventil HFA] 2 puff INHALATION Q4-6H PRN 11/27/20 11/27/20 Unknown History amitriptyline 50 mg PO BEDTIME 11/27/20 11/27/20 Unknown History atorvastatin 40 mg PO BEDTIME 11/27/20 11/27/20 Unknown History baclofen 10 mg PO DAILY 11/27/20 11/27/20 Unknown History fluticasone propionate [Flovent] 110 mcg INHALATION BID 11/27/20 12/02/20 Unknown History Physical Exam Vital Signs and Narrative: Vital Signs: Last Vital Signs Temp 95.5 F L 12/02/20 15:05 Pulse 88 12/02/20 15:05 Resp 20 12/02/20 15:05 BP 100/64 12/02/20 15:05 Pulse Ox 96 12/02/20 15:05 Body Mass Index 34.0 Const: Other: Constitutional : Alert, oriented, not in distress Neck : Normal inspection, Supple Cardiovascular : RRR, S1 S2, no lower extremity edema Respiratory : Good bilateral air entry, no crackles, wheezes or rhonchi Gastrointestinal: soft, lax, Normal bowel sounds, Non tender Skin : Warm/Dry, No rash, right knee in dressing with no drainage noted Neurological : Alert & oriented x3, No focal deficit Results Labs Labs: Laboratory Results - last 24 hr 12/02/20 12/02/20 07:45 08:15 POC Glucose 109 COVID-19 (MARJORIE) Negative COVID-19 Clin Com See Note Imaging Radiologist's Impressions: Impressions Knee X-Ray 12/02/20 12:52 IMPRESSION: Satisfactory appearance of right knee replacement. Assessment and Plan (1) Diabetes mellitus: Problem details: NIDDM Status: Acute A 60 years old lady with PMH of diabetes type 2, osteoarthritis among others who presented to the hospital for elective right knee arthroplasty. Diabetes type 2 Hold oral medications SSI next diabetic diet HLD continue atorvastatin Hypertension Continue amlodipine and hydrochlorothiazide Right knee arthroplasty Plan by orthopedic team DVT PPX per primary team. Thank you for the consult, will continue to follow the patient with you.
[2020-12-02 16:28] LABS: Glucose, Whole Blood 187 mg/dL (60-115)
[2020-12-02] MEDS: Insulin Lispro 100 UNIT/ML 3 ML VIAL SUBCUT ×2 (17:58→20:19)
[2020-12-02 20:20] LABS: Glucose, Whole Blood 311 mg/dL (60-115)
[2020-12-02] MEDS: oxyCODONE HCl ER 10 MG TAB.ER.12H PO (20:21)
[2020-12-02] MEDS: Celecoxib 200 MG CAPSULE PO (20:21)
[2020-12-02] MEDS: Docusate Sodium 100 MG CAPSULE PO (20:21)
[2020-12-02] MEDS: Atorvastatin Calcium 40 MG TABLET PO (20:21)
[2020-12-02] MEDS: Amitriptyline HCl 50 MG TABLET PO (20:21)
[2020-12-02] MEDS: HYDROmorphone HCl 0.5 MG/0.5 ML SYRINGE 0.25 MG IVPUSH (22:54)
[2020-12-02] MEDS: 0.9 % Sodium Chloride Flush 3 ML SYRINGE IVFLUSH (23:30)
[2020-12-03] VITALS (10 sets, daily range): BP systolic 86–103; BP diastolic 55–70; PULSE 70–86; RESP 12–20; TEMP 35.5–36.3; O2SAT 92–97
[2020-12-03] MEDS: Sodium Chloride 0.45 % 1,000 ML 80 ML IVCONT ×2 (03:43→17:03)
[2020-12-03] MEDS: HYDROmorphone HCl 0.5 MG/0.5 ML SYRINGE 0.25 MG IVPUSH (03:52)
[2020-12-03 07:23] LABS: Basophils Percent Auto 0.1 % (0-2); Hematocrit 33.2 % (37-47); Hemoglobin 11.2 g/dl (12.0-16.0); Imm Gran Abs Auto 0.13 X10*3/uL (0.00-0.03); Imm Gran Pct Auto 0.7 % (0.0-0.4); Lymphocytes Absolute Auto 1.1 X10*3/uL (1.2-4.9); Lymphocytes Percent Auto 5.7 % (20-40); MANUAL DIFF FLAG SCAN; Mean Corpuscular HGB Conc 33.7 g/dl (31.0-35.0); Mean Corpuscular Hemoglobin 32.4 pg (27.0-33.0); Mean Platelet Volume 9.6 fL (9.4-12.3); Monocytes Absolute Auto 1.7 X10*3/uL (0.1-1.2); Monocytes Percent Auto 9.1 % (2-11); Neutrophils Absolute Auto 15.6 X10*3/uL (2.0-8.3); Neutrophils Percent Auto 84.4 % (45-73); Platelet Count 236 X10*3/uL (160-400); Red Blood Count 3.46 X10*6/uL (4.20-5.50); Red Cell Distribution Width 12.8 % (11.0-16.0); SCAN SMEAR FLAG 1; White Blood Count 18.5 X10*3/uL (4.8-10.8)
[2020-12-03 07:42] LABS: Glucose, Whole Blood 165 mg/dL (60-115)
[2020-12-03 07:59] LABS: Anion Gap 13 (12-20); Blood Urea Nitrogen 18 mg/dL (9-16); Calcium 8.8 mg/dL (8.4-10.2); Carbon Dioxide 27 mmol/L (22-29); Chloride 102 mmol/L (96-108); Creatinine Clr Calc Pharmacy 63.2; Estimated Glomerular Filt Rate > 60; Glucose Fasting 169 mg/dL (60-99); Potassium 4.4 mmol/L (3.3-5.1); Sodium 138 mmol/L (135-145)
--- NOTE | 2020-12-03 08:04 | PM.PNORT ---
Subjective Subjective Date of Service: 12/03/20 Interval history: POD 1 s/p RT TKA No overnight events States she has not been out of bed yet Has been using the bed winn Denies cp, sob, dizziness. Physical Exam Vital Signs: Vital Signs: Last Vital Signs Temp 96.9 F 12/03/20 07:18 Pulse 77 12/03/20 07:18 Resp 18 12/03/20 07:18 BP 103/66 12/03/20 07:18 Pulse Ox 92 12/03/20 07:18 Body Mass Index 34.0 Const: General: cooperative, healthy appearing and no acute distress Resp: Effort & Inspection: normal respiratory effort and able to speak in complete sentences Cardio: Rate: regular rate Peripheral pulses: Peripheral pulses 2+ throughout GI: Palpation (GI): Soft to palpation Skin: General skin exam: no rashes or lesions noted Extrem: Other: bandage clean dry and intact. [place] intact. No erythema or joint effusion. Calf supple nontender. Neurovascularly intact. Progress Note: A&P Assessment and plan (1) Status post total right knee replacement: Status: Acute Assessment and Plan: Continue pain mgmnt Begin Aspirin for dvt ppx begin PT for RT TKA Dispo planning-Pending PT eval, pain mgmnt Fall Risk Details Current Medications: Current Medications Generic Name Dose Route Start Last Admin Trade Name Ralphq PRN Reason Stop Dose Admin Acetaminophen 650 mg 12/02/20 14:35 12/02/20 20:20 Acetaminophen 325 Mg Tablet PO 650 mg Q6H PRN Administration Pain, Mild (Pain Scale 1-3) Albuterol Sulfate 2 puff 12/02/20 15:19 Albuterol Sulfate 90 Mcg 8 Gm Inhaler INHALE Q4H PRN Shortness Of Breath Or Wheezing Amitriptyline HCl 50 mg 12/02/20 21:00 12/02/20 20:21 Amitriptyline Hcl 50 Mg Tablet PO 50 mg BEDTIME RAGHU Administration Amlodipine Besylate 5 mg 12/03/20 09:00 Amlodipine Besylate 5 Mg Tablet PO DAILY [facility] Protocol Aspirin 325 mg 12/03/20 11:00 Aspirin 325 Mg Tablet PO BID RAGHU Atorvastatin Calcium 40 mg 12/02/20 21:00 12/02/20 20:21 Atorvastatin Calcium 40 Mg Tablet PO 40 mg BEDTIME RAGHU Administration Baclofen 10 mg 12/03/20 09:00 Baclofen 10 Mg Tablet PO DAILY [facility] Celecoxib 200 mg 12/02/20 21:00 12/02/20 20:21 Celecoxib 200 Mg Capsule PO 200 mg BID RAGHU Administration Docusate Sodium 100 mg 12/02/20 21:00 12/02/20 20:21 Docusate Sodium 100 Mg Capsule PO 100 mg BID RAGHU Administration Hydrochlorothiazide 12.5 mg 12/03/20 09:00 Hydrochlorothiazide 12.5 Mg Tablet PO DAILY [facility] Protocol Hydromorphone HCl 0.25 mg 12/02/20 14:35 12/03/20 03:52 Hydromorphone Hcl 0.5 Mg/0.5 Ml Syringe IVPUSH 0.25 mg Q4H PRN Administration Pain, Severe (Pain Scale 7-10) Sodium Chloride 1,000 mls @ 80 mls/hr 12/02/20 14:35 12/03/20 03:43 IVCONT 80 mls/hr .[id number] RAGHU Administration Insulin Human Lispro 0 unit 12/02/20 16:30 12/02/20 20:19 Insulin Lispro 100 Unit/Ml 3 Ml Vial SUBCUT 8 unit QIDACHS [facility] Administration Protocol Naloxone HCl 0.2 mg 12/02/20 14:35 Naloxone Hcl 0.4 Mg/Ml Vial IVPUSH Q2M PRN Excessive sedation or RR < 8 Ondansetron HCl 4 mg 12/02/20 14:35 Ondansetron Hcl 4 Mg/2 Ml Vial IVPUSH Q8H PRN Nausea and Vomiting Oxycodone HCl 5 mg 12/02/20 14:35 12/02/20 21:50 Oxycodone Hcl Immed Release 5 Mg Tablet PO 5 mg Q4H PRN Administration Pain, Moderate (Pain Scale 4-6 Oxycodone HCl 10 mg 12/02/20 21:00 12/02/20 20:21 Oxycodone Hcl Er 10 Mg Tab.Er.12h PO 10 mg BID [facility] Administration Sodium Chloride 3 ml 12/02/20 16:00 12/02/20 23:30 0.9 % Sodium Chloride Flush 3 Ml Syringe IVFLUSH 3 ml QSHIFT [facility] Administration Time Spent With Patient Time: Total time spent is greater than 50% in coordination of care (as documented) at patient's floor/unit and/or counseling patient: Time with patient: less than 15 minutes Procedures Date of Service Date of Service: 12/03/20
[2020-12-03 08:13] LABS: SLIDE REVIEW VERIFIED
[2020-12-03] MEDS: Insulin Lispro 100 UNIT/ML 3 ML VIAL SUBCUT ×3 (08:14→20:42)
[2020-12-03] MEDS: amLODIPine Besylate 5 MG TABLET PO (08:15)
[2020-12-03] MEDS: hydroCHLOROthiazide 12.5 MG TABLET PO (08:15)
[2020-12-03] MEDS: oxyCODONE HCl ER 10 MG TAB.ER.12H PO ×2 (08:15→20:20)
[2020-12-03] MEDS: Baclofen 10 MG TABLET PO (08:15)
[2020-12-03] MEDS: Celecoxib 200 MG CAPSULE PO ×2 (08:16→20:20)
[2020-12-03] MEDS: Docusate Sodium 100 MG CAPSULE PO ×2 (08:17→20:20)
[2020-12-03] MEDS: Aspirin 325 MG TABLET PO ×2 (09:37→20:19)
[2020-12-03] MEDS: oxyCODONE HCl Immed Release 5 MG TABLET PO ×3 (09:37→20:19)
--- NOTE | 2020-12-03 10:24 | HO.POSTANES ---
Post Anesthesia Evaluation Post Anesthesia Evaluation Vital Signs: Vital Signs Temp Pulse Resp BP Pulse Ox 12/03/20 08:59 77 103/66 92 12/03/20 07:18 96.9 F 77 18 103/66 92 12/03/20 05:00 20 12/03/20 03:38 96 F L 82 18 102/64 94 12/02/20 23:19 97.9 F 85 18 112/56 L 92 12/02/20 22:56 86 20 105/57 L Anesthesia: Spinal and Nerve Block Mental Status: Awake Pain Control: Satisfactory Nausea/Vomiting: None Hydration: Adequate Anesthesia-Related Issues: No Anes. Related Issues
[2020-12-03 11:32] LABS: Glucose, Whole Blood 209 mg/dL (60-115)
--- NOTE | 2020-12-03 11:41 | HO.PM.IMPN ---
Subjective Subjective Date of Service: 12/03/20 Interval History: the patient was seen and evaluated this morning Laying in bed, feels comfortable overall as the pain in her right knee improved WBCs increased this morning Denies any fever, chills or shortness of breath No reported other overnight events. Review of Systems No fever, chills or weakness No chest pain, palpitation No shortness of breath or coughing No abdominal pain, nausea or vomiting No urinary symptoms No any rash or wounds Physical Exam Vital Signs: Vital Signs: Last Vital Signs Temp 96.9 F 12/03/20 07:18 Pulse 77 12/03/20 08:59 Resp 18 12/03/20 07:18 BP 103/66 12/03/20 08:59 Pulse Ox 92 12/03/20 08:59 Body Mass Index 34.0 Const: Other: Constitutional : Alert, oriented, not in distress Neck : Normal inspection, Supple Cardiovascular : RRR, S1 S2, no lower extremity edema Respiratory : Good bilateral air entry, no crackles, wheezes or rhonchi Gastrointestinal: soft, lax, Normal bowel sounds, Non tender Skin : Warm/Dry, No rash, right knee in dressing with no drainage noted Neurological : Alert & oriented x3, No focal deficit Objective Data Current Medications Generic Name Dose Route Start Last Admin Trade Name Freq PRN Reason Stop Dose Admin Acetaminophen 650 mg 12/02/20 14:35 12/02/20 20:20 Acetaminophen 325 Mg Tablet PO 650 mg Q6H PRN Administration Pain, Mild (Pain Scale 1-3) Albuterol Sulfate 2 puff 12/02/20 15:19 Albuterol Sulfate 90 Mcg 8 Gm Inhaler INHALE Q4H PRN Shortness Of Breath Or Wheezing Amitriptyline HCl 50 mg 12/02/20 21:00 12/02/20 20:21 Amitriptyline Hcl 50 Mg Tablet PO 50 mg BEDTIME RAGHU Administration Amlodipine Besylate 5 mg 12/03/20 09:00 12/03/20 08:15 Amlodipine Besylate 5 Mg Tablet PO 5 mg DAILY RAGHU Administration Protocol Aspirin 325 mg 12/03/20 11:00 12/03/20 09:37 Aspirin 325 Mg Tablet PO 325 mg BID RAHGU Administration Atorvastatin Calcium 40 mg 12/02/20 21:00 12/02/20 20:21 Atorvastatin Calcium 40 Mg Tablet PO 40 mg BEDTIME RAGHU Administration Baclofen 10 mg 12/03/20 09:00 12/03/20 08:15 Baclofen 10 Mg Tablet PO 10 mg DAILY RAGHU Administration Celecoxib 200 mg 12/02/20 21:00 12/03/20 08:16 Celecoxib 200 Mg Capsule PO 200 mg BID RAGHU Administration Docusate Sodium 100 mg 12/02/20 21:00 12/03/20 08:17 Docusate Sodium 100 Mg Capsule PO 100 mg BID RAGHU Administration Hydrochlorothiazide 12.5 mg 12/03/20 09:00 12/03/20 08:15 Hydrochlorothiazide 12.5 Mg Tablet PO 12.5 mg DAILY RAGHU Administration Protocol Hydromorphone HCl 0.25 mg 12/02/20 14:35 12/03/20 03:52 Hydromorphone Hcl 0.5 Mg/0.5 Ml Syringe IVPUSH 0.25 mg Q4H PRN Administration Pain, Severe (Pain Scale 7-10) Sodium Chloride 1,000 mls @ 80 mls/hr 12/02/20 14:35 12/03/20 03:43 IVCONT 80 mls/hr .[id number] RAGHU Administration Insulin Human Lispro 0 unit 12/02/20 16:30 12/03/20 08:14 Insulin Lispro 100 Unit/Ml 3 Ml Vial SUBCUT 2 unit QIDACHS [facility] Administration Protocol Naloxone HCl 0.2 mg 12/02/20 14:35 Naloxone Hcl 0.4 Mg/Ml Vial IVPUSH Q2M PRN Excessive sedation or RR < 8 Ondansetron HCl 4 mg 12/02/20 14:35 Ondansetron Hcl 4 Mg/2 Ml Vial IVPUSH Q8H PRN Nausea and Vomiting Oxycodone HCl 5 mg 12/02/20 14:35 12/03/20 09:37 Oxycodone Hcl Immed Release 5 Mg Tablet PO 5 mg Q4H PRN Administration Pain, Moderate (Pain Scale 4-6 Oxycodone HCl 10 mg 12/02/20 21:00 12/03/20 08:15 Oxycodone Hcl Er 10 Mg Tab.Er.12h PO 10 mg BID RAGHU Administration Sodium Chloride 3 ml 12/02/20 16:00 12/03/20 08:16 0.9 % Sodium Chloride Flush 3 Ml Syringe IVFLUSH Not Given QSHIFT [facility] Labs CBC & Chem 7: 12/03/20 06:14 12/03/20 06:14 Assessment and Plan (1) Diabetes mellitus: Problem details: NIDDM Status: Acute Assessment and Plan: A 60 years old lady with PMH of diabetes type 2, osteoarthritis among others who presented to the hospital for elective right knee arthroplasty. Leukocytosis No source of infection identified, no fever or chills reported Continue incentive spirometry Hold on antibiotics for the time being Diabetes type 2 Hold oral medications SSI diabetic diet HLD continue atorvastatin Hypertension Continue amlodipine and hydrochlorothiazide Right knee arthroplasty Plan by orthopedic team DVT PPX per primary team. Thank you for the consult, will continue to follow the patient with you.
--- NOTE | 2020-12-03 15:44 | PC.NURSE ---
p low BP 86/55pulse [address] Hsu notified E patient asymptomatic
--- NOTE | 2020-12-03 16:13 | MHC.CM.PN ---
CALL TO PROTOZOOLOGY TEACHER @ [phone]. CURRENTLY AWAITING ARRIVAL FOR CASE MANAGEMENT ASSESSMENT PURPOSES
[2020-12-03 16:27] LABS: Glucose, Whole Blood 131 mg/dL (60-115)
[2020-12-03] MEDS: Atorvastatin Calcium 40 MG TABLET PO (20:20)
[2020-12-03] MEDS: Amitriptyline HCl 50 MG TABLET PO (20:20)
[2020-12-03 20:43] LABS: Glucose, Whole Blood 208 mg/dL (60-115)
[2020-12-04 00:18] VITALS: BP 99/55; PULSE 78; RESP 16; TEMP 36.3; O2SAT 95
[2020-12-04 03:52] VITALS: BP 95/52; PULSE 78; RESP 16; TEMP 36.1; O2SAT 92
[2020-12-04 06:48] LABS: Basophils Percent Auto 0.2 % (0-2); Eosinophils Absolute Auto 0.1 X10*3/uL (0.0-0.4); Eosinophils Percent Auto 0.9 % (0-4); Hematocrit 31.9 % (37-47); Hemoglobin 10.5 g/dl (12.0-16.0); Imm Gran Abs Auto 0.08 X10*3/uL (0.00-0.03); Imm Gran Pct Auto 0.6 % (0.0-0.4); Lymphocytes Absolute Auto 2.6 X10*3/uL (1.2-4.9); Lymphocytes Percent Auto 18.9 % (20-40); MANUAL DIFF FLAG NO; Mean Corpuscular HGB Conc 32.9 g/dl (31.0-35.0); Mean Corpuscular Hemoglobin 32.2 pg (27.0-33.0); Mean Corpuscular Volume 97.9 fL (80-98); Mean Platelet Volume 9.5 fL (9.4-12.3); Monocytes Absolute Auto 1.5 X10*3/uL (0.1-1.2); Monocytes Percent Auto 10.8 % (2-11); Neutrophils Absolute Auto 9.6 X10*3/uL (2.0-8.3); Neutrophils Percent Auto 68.6 % (45-73); Platelet Count 192 X10*3/uL (160-400); Red Blood Count 3.26 X10*6/uL (4.20-5.50); Red Cell Distribution Width 13.1 % (11.0-16.0); White Blood Count 13.9 X10*3/uL (4.8-10.8)
[2020-12-04] MEDS: oxyCODONE HCl Immed Release 5 MG TABLET PO ×2 (06:51→11:33)
[2020-12-04 07:04] LABS: Anion Gap 10 (12-20); Blood Urea Nitrogen 27 mg/dL (9-16); Calcium 8.4 mg/dL (8.4-10.2); Carbon Dioxide 27 mmol/L (22-29); Chloride 104 mmol/L (96-108); Creatinine Clr Calc Pharmacy 57.7; Estimated Glomerular Filt Rate 54; Glucose Fasting 162 mg/dL (60-99); Potassium 4.1 mmol/L (3.3-5.1); Sodium 137 mmol/L (135-145)
--- NOTE | 2020-12-04 07:25 | P.F2F_ITS ---
Service Date Service Date: 12/04/20 Encounter Date of encounter: 12/04/20 Reasons for Services Reason for physical therapy: home safety and mobility, therapeutic exercises, restore joint function, gait/transfer training and ADL training Reason for occupational therapy: home safety and mobility, therapeutic exercises, restore joint function, gait/transfer training, assess need for DME and ADL training Homebound: Leaving the home is medically contraindicated at this time without the asist of a device and/or another person due th the listed conditions above and below. Reason homebound: unsteady gait / fall risk, leg weakness, pain with ambulation, pain with transfers, poor balance / fall risk and unable to drive Homebound supporting statement: Pt. is considered homebound due to recent surgery. Unable to drive, poor balance, poor gait mechanics. Certification: Based on the above findings, I certify that this patient is confined to the home and needs intermittent shelter care, physical therapy and/or speech therapy, or continues to need occupational therapy. The patient is under my care, and I have initiated the establishment of the plan of care. The patient will be followed by a physician who will periodically review the plan of care.
--- NOTE | 2020-12-04 07:26 | PM.DS ---
DS: Providers Provider Date of Service: 12/04/20 Date of admission: 12/02/20 12:25 Primary care physician: Rose Mary Castellano NP Consults: 12/02/20 14:35 Consult to Hospitalist Routine Consulting Provider: Hospitalist Reason For Exam: DIABETES DS: Diagnosis Discharge Diagnosis (1) Diabetes mellitus: Problem details: NIDDM (2) Status post total right knee replacement: Status: Acute Problem details: Ms. Gerry Mclaughlin is a 60 yo female who presented to the office with ongoing right knee pain. She was found to have OA of the right knee and had failed all conservative treatment. She continued to have difficulty with ambulation and daily activities; therefore she consented to move forward with Right total knee arthroplasty. DS: Medications Discharge Medications Home Medications: Home Medications Medication Instructions Recorded Confirmed amlodipine 5 mg tablet 5 mg PO DAILY 05/09/20 11/27/20 metformin 500 mg tablet 1,000 mg PO BID tab 10/22/20 11/27/20 albuterol sulfate [Proventil HFA] 2 puff INHALATION Q4-6H PRN 11/27/20 11/27/20 amitriptyline 50 mg PO BEDTIME 11/27/20 11/27/20 atorvastatin 40 mg PO BEDTIME 11/27/20 11/27/20 baclofen 10 mg PO DAILY 11/27/20 11/27/20 fluticasone propionate 110 mcg INHALATION BID 11/27/20 12/02/20 Previous Rx's Medication Instructions Recorded hydrochlorothiazide 12.5 mg tablet 12.5 mg PO DAILY 90 Days #90 tab 10/13/20 acetaminophen 650 mg PO Q6H PRN 30 Days #240 tab 12/03/20 aspirin 325 mg PO BID 42 Days #84 tab 12/03/20 docusate sodium 100 mg PO BID 30 Days #60 cap 12/03/20 oxycodone 5 mg PO Q4H PRN 7 Days #42 tab 12/04/20 DS: Summary Hospital Course Hospital Course: The patient underwent a successful right total knee arthroplasty, they were transferred to PACU and then to the floor to recover. During their stay, their vitals were stable, afebrile 96.9 Labs were unremarkable, H/H 10.5/31.9. POD 1 they were started on Aspirin 325mg po bid for DVT ppx, they also received Physical Therapy services twice a day. Prior to discharge, their dressing was changed, incision clean dry and intact, new Aquacel dressing applied and the plan was to be discharged home with VNA services. Status at Discharge Functional status at discharge: uses cane/walker Time Spent with Patient Time attestation: Total time spent providing and/or coordinating discharge services: Discharge coordination time: Less than 30 minutes Quality: Stroke Does the patient have a stroke diagnosis?: No Physical Exam Vital Signs: Vital Signs: Last Vital Signs Temp 96.9 F 12/04/20 03:52 Pulse 78 12/04/20 03:52 Resp 16 12/04/20 03:52 BP 95/52 L 12/04/20 03:52 Pulse Ox 92 12/04/20 03:52 Body Mass Index 34.0 Const: General: cooperative, healthy appearing and no acute distress Resp: Effort & Inspection: normal respiratory effort and able to speak in complete sentences Cardio: Rate: regular rate Peripheral pulses: Peripheral pulses 2+ throughout GI: Palpation (GI): Soft to palpation Skin: Lesions: no lesions Rashes: no rashes Extrem: Other: He no ecchymosis, redness, drainage or warmth. Aquacel is clean dry and intact. Incision site remains well approximated with elmira intact. New Aquacel dressing was applied. NVI. DS: Data Data Completed and Pending Pending studies at discharge: Pending at discharge 12/02/20 11:51 Surgical [PTH] Routine Labs on day of discharge: Laboratory Results - last 24 hr 12/03/20 12/03/20 12/03/20 06:14 06:14 07:18 WBC 18.5 H RBC 3.46 L D Hgb 11.2 L Hct 33.2 L D MCV 96.0 MCH 32.4 MCHC 33.7 RDW 12.8 Plt Count 236 MPV 9.6 Immature Gran % (Auto) 0.7 H Neut % (Auto) 84.4 H Lymph % (Auto) 5.7 L Glasscock % (Auto) 9.1 Eos % (Auto) 0.0 Baso % (Auto) 0.1 Lymph # (Auto) 1.1 L Glasscock # (Auto) 1.7 H Eos # (Auto) 0.0 Baso # (Auto) 0.0 Abs Immat Gran (auto) 0.13 H Absolute Neuts (auto) 15.6 H Absolute Nucleated RBC 0.000 Nucleated RBC % (auto) 0.0 Smear Tech's Comments VERIFIED Sodium 138 Potassium 4.4 Chloride 102 Carbon Dioxide 27 Anion Gap 13 BUN 18 H Creatinine 0.94 Estim Creat Clear Calc 63.2 Estimated GFR > 60 POC Glucose 165 H Fasting Glucose 169 H Calcium 8.8 D 12/03/20 12/03/20 12/03/20 11:15 16:15 20:35 WBC RBC Hgb Hct MCV MCH MCHC RDW Plt Count MPV Immature Gran % (Auto) Neut % (Auto) Lymph % (Auto) Glasscock % (Auto) Eos % (Auto) Baso % (Auto) Lymph # (Auto) Glasscock # (Auto) Eos # (Auto) Baso # (Auto) Abs Immat Gran (auto) Absolute Neuts (auto) Absolute Nucleated RBC Nucleated RBC % (auto) Smear Tech's Comments Sodium Potassium Chloride Carbon Dioxide Anion Gap BUN Creatinine Estim Creat Clear Calc Estimated GFR POC Glucose 209 H 131 H 208 H Fasting Glucose Calcium 12/04/20 12/04/20 12/04/20 06:12 06:12 06:12 WBC 13.9 H Cancelled RBC 3.26 L Cancelled Hgb 10.5 L Cancelled Hct 31.9 L Cancelled MCV 97.9 Cancelled MCH 32.2 Cancelled MCHC 32.9 Cancelled RDW 13.1 Cancelled Plt Count 192 Cancelled MPV 9.5 Cancelled Immature Gran % (Auto) 0.6 H Neut % (Auto) 68.6 Lymph % (Auto) 18.9 L Glasscock % (Auto) 10.8 Eos % (Auto) 0.9 Baso % (Auto) 0.2 Lymph # (Auto) 2.6 Glasscock # (Auto) 1.5 H Eos # (Auto) 0.1 Baso # (Auto) 0.0 Abs Immat Gran (auto) 0.08 H Absolute Neuts (auto) 9.6 H Absolute Nucleated RBC 0.000 Cancelled Nucleated RBC % (auto) 0.0 Cancelled Smear Tech's Comments Sodium 137 Potassium 4.1 Chloride 104 Carbon Dioxide 27 Anion Gap 10 L BUN 27 H Creatinine 1.03 Estim Creat Clear Calc 57.7 Estimated GFR 54 POC Glucose Fasting Glucose 162 H Calcium 8.4 Discharge Plan Discharge Patient Disposition: Home Health Service Discharge Diagnosis: s/p RT TKA Referrals: Ponce Palmer PA-C [Physician Battery Plate Assembler] - 2 Weeks (12/18/20 at 12:45pm) Rose Mary Castellano NP [Primary Care Provider] - 1 Week Discharge Medications: New acetaminophen 325 mg Tablet 650 mg PO Q6H PRN (Reason: Pain, Mild (Pain Scale 1-3)) 30 Days Qty: 240 RF: 0 aspirin 325 mg Tablet 325 mg PO BID 42 Days Qty: 84 RF: 0 docusate sodium 100 mg Capsule 100 mg PO BID 30 Days Qty: 60 RF: 0 oxycodone 5 mg Tablet 5 mg PO Q4H PRN (Reason: Pain, Moderate (Pain Scale 4-6) 7 Days Qty: 42 RF: 0 Continued hydrochlorothiazide 12.5 mg tablet 12.5 mg PO DAILY 90 Days Qty: 90 RF: 1 atorvastatin 40 mg Tablet 40 mg PO BEDTIME RF: 0 amitriptyline 50 mg Tablet 50 mg PO BEDTIME RF: 0 baclofen 10 mg Tablet 10 mg PO DAILY RF: 0 albuterol sulfate [Proventil HFA] 90 mcg/actuation Hfa Aerosol Inhaler 2 puff INHALATION Q4-6H PRN (Reason: Shortness Of Breath Or Wheezing) RF: 0 fluticasone propionate 110 mcg/actuation Hfa Aerosol Inhaler 110 mcg INHALATION BID RF: 0 amlodipine 5 mg tablet 5 mg PO DAILY RF: 0 metformin 500 mg tablet 1,000 mg PO BID RF: 0 Discontinued oxycodone-acetaminophen [Percocet] 5-325 mg tablet 1 tab PO Q8H PRN (Reason: Pain) RF: 0 Discharge Orders: Discharge Order (Routine); Ordered 12/04/20 Ordered By: Suzanne Boyle Diet: regular diet Activity on Discharge: Use cane or walker Stand Alone Forms: Patient Portal Discharge page Care Plan Goals: Restore function of joint Health Concerns: none Plan of Treatment: Physical Therapy Pain management DVT prophylaxis Assessment: Physical Therapy for Total knee arthroplasty: gait training, ROM 0-12, quad strength Limit stair climbing No showering, no tub bath-keep dressing clean, dry and intact No driving x6 weeks Continue Aspirin twice a day x 6 weeks Follow up with [facility] in 2 weeks
[2020-12-04 07:34] VITALS: BP 113/66; PULSE 78; RESP 18; TEMP 36.2; O2SAT 95
[2020-12-04 08:04] LABS: Glucose, Whole Blood 160 mg/dL (60-115)
[2020-12-04 08:11] VITALS: BP 113/66; PULSE 78; O2SAT 95
[2020-12-04] MEDS: Insulin Lispro 100 UNIT/ML 3 ML VIAL SUBCUT ×2 (08:28→11:34)
--- NOTE | 2020-12-04 08:55 | MHC.CM.PN ---
PATIENT IS DISCHARGED HOME WITH [facility] FOR HOME P.T. SHE WILL DC TO HER DAUGHTER'S HOME AT [address] [facility] IN [facility]. RN AWARE OF PLAN
[2020-12-04] MEDS: Aspirin 325 MG TABLET PO (09:37)
[2020-12-04] MEDS: 0.9 % Sodium Chloride Flush 3 ML SYRINGE IVFLUSH (09:37)
[2020-12-04] MEDS: Docusate Sodium 100 MG CAPSULE PO (09:38)
[2020-12-04] MEDS: hydroCHLOROthiazide 12.5 MG TABLET PO (09:38)
[2020-12-04] MEDS: Baclofen 10 MG TABLET PO (09:38)
[2020-12-04] MEDS: Celecoxib 200 MG CAPSULE PO (09:38)
[2020-12-04] MEDS: oxyCODONE HCl ER 10 MG TAB.ER.12H PO (09:39)
[2020-12-04] MEDS: amLODIPine Besylate 5 MG TABLET PO (09:41)
--- NOTE | 2020-12-04 10:24 | P.PNIM_ITS ---
Subjective Subjective Date of Service: 12/04/20 Interval History: the patient was seen and evaluated this morning Laying in bed, feels comfortable overall as the pain in her right knee imp roved, dressed and ready to go home WBCs going down to this morning Denies any fever, chills or shortness of breath No reported other overnight events. Review of Systems No fever, chills or weakness No chest pain, palpitation No shortness of breath or coughing No abdominal pain, nausea or vomiting No urinary symptoms No any rash or wounds Physical Exam Vital Signs: Vital Signs: Last Vital Signs Temp 97.1 F 12/04/20 07:34 Pulse 78 12/04/20 08:11 Resp 18 12/04/20 07:34 BP 113/66 12/04/20 08:11 Pulse Ox 95 12/04/20 08:11 Body Mass Index 34.0 Const: Other: Constitutional : Alert, oriented, not in distress Neck : Normal inspection, Supple Cardiovascular : RRR, S1 S2, no lower extremity edema Respiratory : Good bilateral air entry, no crackles, wheezes or rhonchi Gastrointestinal: soft, lax, Normal bowel sounds, Non tender Skin : Warm/Dry, No rash, right knee in dressing Neurological : Alert & oriented x3, No focal deficit Objective Data Current Medications Generic Name Dose Route Start Last Admin Trade Name Ralphq PRN Reason Stop Dose Admin Acetaminophen 650 mg 12/02/20 14:35 12/02/20 20:20 Acetaminophen 325 Mg Tablet PO 650 mg Q6H PRN Administration Pain, Mild (Pain Scale 1-3) Albuterol Sulfate 2 puff 12/02/20 15:19 Albuterol Sulfate 90 Mcg 8 Gm Inhaler INHALE Q4H PRN Shortness Of Breath Or Wheezing Amitriptyline HCl 50 mg 12/02/20 21:00 12/03/20 20:20 Amitriptyline Hcl 50 Mg Tablet PO 50 mg BEDTIME RAGHU Administration Amlodipine Besylate 5 mg 12/03/20 09:00 12/04/20 09:41 Amlodipine Besylate 5 Mg Tablet PO 5 mg DAILY RAGHU Administration Protocol Aspirin 325 mg 12/03/20 11:00 12/04/20 09:37 Aspirin 325 Mg Tablet PO 325 mg BID RAGHU Administration Atorvastatin Calcium 40 mg 12/02/20 21:00 12/03/20 20:20 Atorvastatin Calcium 40 Mg Tablet PO 40 mg BEDTIME RAGHU Administration Baclofen 10 mg 12/03/20 09:00 12/04/20 09:38 Baclofen 10 Mg Tablet PO 10 mg DAILY [facility] Administration Celecoxib 200 mg 12/02/20 21:00 12/04/20 09:38 Celecoxib 200 Mg Capsule PO 200 mg BID RAGHU Administration Diphenhydramine HCl 25 mg 12/04/20 07:53 Diphenhydramine Hcl 25 Mg Tablet PO Q6H PRN Itching Docusate Sodium 100 mg 12/02/20 21:00 12/04/20 09:38 Docusate Sodium 100 Mg Capsule PO 100 mg BID [facility] Administration Hydrochlorothiazide 12.5 mg 12/03/20 09:00 12/04/20 09:38 Hydrochlorothiazide 12.5 Mg Tablet PO 12.5 mg DAILY [facility] Administration Protocol Hydromorphone HCl 0.25 mg 12/02/20 14:35 12/03/20 03:52 Hydromorphone Hcl 0.5 Mg/0.5 Ml Syringe IVPUSH 0.25 mg Q4H PRN Administration Pain, Severe (Pain Scale 7-10) Sodium Chloride 1,000 mls @ 80 mls/hr 12/02/20 14:35 12/04/20 05:41 IVCONT Infused .[id number] [facility] Infusion Insulin Human Lispro 0 unit 12/02/20 16:30 12/04/20 08:28 Insulin Lispro 100 Unit/Ml 3 Ml Vial SUBCUT 2 unit QIDACHS [facility] Administration Protocol Naloxone HCl 0.2 mg 12/02/20 14:35 Naloxone Hcl 0.4 Mg/Ml Vial IVPUSH Q2M PRN Excessive sedation or RR < 8 Ondansetron HCl 4 mg 12/02/20 14:35 Ondansetron Hcl 4 Mg/2 Ml Vial IVPUSH Q8H PRN Nausea and Vomiting Oxycodone HCl 5 mg 12/02/20 14:35 12/04/20 06:51 Oxycodone Hcl Immed Release 5 Mg Tablet PO 5 mg Q4H PRN Administration Pain, Moderate (Pain Scale 4-6 Oxycodone HCl 10 mg 12/02/20 21:00 12/04/20 09:39 Oxycodone Hcl Er 10 Mg Tab.Er.12h PO 10 mg BID [facility] Administration Sodium Chloride 3 ml 12/02/20 16:00 12/04/20 09:37 0.9 % Sodium Chloride Flush 3 Ml Syringe IVFLUSH 3 ml QSHIFT RAGHU Administration Labs CBC & Chem 7: 12/04/20 06:12 12/04/20 06:12 Assessment and Plan (1) Diabetes mellitus: Assessment and Plan: A 60 years old lady with PMH of diabetes type 2, osteoarthritis among others who presented to the hospital for elective right knee arthroplasty. Leukocytosis Trending down No source of infection identified, no fever or chills reported Continue incentive spirometry Hold on antibiotics for the time being Diabetes type 2 Resume oral medications at discharge HLD continue atorvastatin Hypertension Continue amlodipine and hydrochlorothiazide Right knee arthroplasty Plan by orthopedic team DVT PPX per primary team. Thank you for the consult, will continue to follow the patient with you.
[2020-12-04 11:25] LABS: Glucose, Whole Blood 162 mg/dL (60-115)
== END 2020-12-04 11:49 | disposition home health service (06) | DRG 302 ==
LOC: HO.SSSA 12:27 → HO.S3 14:12
PROVIDERS: Physician Assistant; Admitting Provider Orthopaedic Surgery; PCP Nurse Practitioner Primary Care; Visit Provider Orthopaedic Surgery
PROC: 0SRC0JA Replacement of Right Knee Joint with Synthetic Substitute, Uncemented, Open Approach (ICD-10-PCS; CPT 27447; principal; 2020-12-02 09:30)
DX: M17.11 Unilateral primary osteoarthritis, right knee (principal); D72.829 Elevated white blood cell count, unspecified; E11.9 Type 2 diabetes mellitus without complications; E78.5 Hyperlipidemia, unspecified; I10 Essential (primary) hypertension; Z20.822 Contact with and (suspected) exposure to COVID-19; Z79.51 Long term (current) use of inhaled steroids; Z79.899 Other long term (current) drug therapy
CPT/HCPCS: 27447; 36415; 73560; 80048; 82947; 83036; 85025; 86850; 86900; 86901; 87635; 87640; 87641; 88305; 88311; 97110; 97116; 97162; C1776; J0690; J1100; J1170; J2250; J2370

== ENCOUNTER 2020-12-08 10:34 | Emergency (ER) | payer MEDICAID, SELFPAY ==
--- NOTE | ~2020-12-08 | US_ITS ---
EXAMINATION: US VENOUS ULTRASOUND WITH DOPPLER LOWER EXTREMITY, RIGHT CLINICAL INFORMATION: Swelling post knee surgery. COMPARISON: None TECHNIQUE: Ultrasound of the deep veins is performed from the hip to the calf with compression sonography and color and pulse Doppler assessment. Spectral analysis with color-flow imaging is performed. FINDINGS: There is normal venous compression and respiratory variation and augmented flow. The visualized common femoral vein, superficial femoral vein, profunda femoral vein, popliteal vein, and the trifurcation region shows no evidence of deep venous thrombosis. There is no significant popliteal fossa cyst. US/US venous duplex LE RT IMPRESSION: No DVT demonstrated in the right lower extremity.
--- NOTE | ~2020-12-08 | XR_ITS ---
EXAMINATION: XR CHEST CLINICAL INFORMATION: Syncope COMPARISON: None TECHNIQUE: Frontal view of the chest was obtained. FINDINGS: The lungs are hypoexpanded but clear. Heart size and pulmonary vascularity is normal. There is moderate spondylosis dorsal spine. No lytic process. XR/XR chest 1V IMPRESSION: Hypoexpanded lungs without acute process.
--- NOTE | ~2020-12-08 | CT_ITS ---
EXAMINATION: CT HEAD WITHOUT CONTRAST CLINICAL INFORMATION: Syncope COMPARISON: None TECHNIQUE: Contiguous axial imaging was performed from the skull base to vertex without intravenous administration of contrast. This CT examination was performed using dose optimization techniques as appropriate, variously including the following: *Automated exposure control *Adjustment of mA and/or kV according to patient size (this includes techniques or standardized protocols for targeted exams where dose is matched to indication/reason for exam; i.e. extremities or head) *Use of iterative reconstruction technique DLP: 708 mGy-cm FINDINGS: There is no evidence of acute intracranial hemorrhage or territorial infarction. No abnormal mass effect or midline shift is seen. More to white matter differentiation is well preserved. No extra-axial fluid collections are identified. The ventricles are normal in size. There is no abnormal attenuation within the brain parenchyma. The osseous structures and soft tissues are normal. The mastoid air cells and visualized portions of the paranasal sinuses are well aerated. CT/CT head/brain wo con IMPRESSION: No acute intracranial process seen.
[2020-12-08 10:44] VITALS: BP 105/58; PULSE 82; RESP 18; TEMP 36.6; O2SAT 96; BMI 33.7
--- NOTE | 2020-12-08 11:09 | ECG_ITS ---
Test Reason : SYNCOPY Blood Pressure : / mmHG Vent. Rate : 081 BPM Atrial Rate : 081 BPM P-R Int : 138 ms QRS Dur : 086 ms QT Int : 408 ms P-R-T Axes : 038 014 034 degrees QTc Int : 473 ms Normal sinus rhythm Normal ECG When compared with ECG of 27-OCT-2020 11:07, No significant change was found Referred By: Maricarmen Donaldson Electronically Signed By:TOBI RIZZO
--- NOTE | 2020-12-08 11:12 | ED.GENADULT ---
HPI - General Adult General Chief complaint: General Medical Stated complaint: DIZZY W/FALL FROM SITTING W/HEAD STRIKE Time Seen by Provider: 12/08/20 10:56 Source: patient, family and bilingual interpreter Mode of arrival: EMS Limitations: no limitations History of Present Illness HPI narrative: This is a 60-year-old female brought in by ambulance for syncopal episode. 60-year-old female status post right knee replacement last week, patient still suffering from pain after surgery, patient used an old pain medication at home that made the patient dizzy for the past 3 days, patient feeling dizzy and sleepy went to the bathroom today sitting on the toilet then she does remember until was found on the floor hitting her head. Patient declined chest pain, or shortness of breath. Patient stated that she did not have breakfast when she had pain medication. Related Data Home Medications Medication Instructions Recorded Confirmed amlodipine 5 mg tablet 5 mg PO DAILY 05/09/20 11/27/20 metformin 500 mg tablet 1,000 mg PO BID tab 10/22/20 11/27/20 albuterol sulfate [Proventil HFA] 2 puff INHALATION Q4-6H PRN 11/27/20 11/27/20 amitriptyline 50 mg PO BEDTIME 11/27/20 11/27/20 atorvastatin 40 mg PO BEDTIME 11/27/20 11/27/20 baclofen 10 mg PO DAILY 11/27/20 11/27/20 fluticasone propionate 110 mcg INHALATION BID 11/27/20 12/02/20 Previous Rx's Medication Instructions Recorded hydrochlorothiazide 12.5 mg tablet 12.5 mg PO DAILY 90 Days #90 tab 10/13/20 acetaminophen 650 mg PO Q6H PRN 30 Days #240 tab 12/03/20 aspirin 325 mg PO BID 42 Days #84 tab 12/03/20 docusate sodium 100 mg PO BID 30 Days #60 cap 12/03/20 oxycodone 5 mg PO Q4H PRN 7 Days #42 tab 12/04/20 oxycodone 5 mg PO Q8H PRN #10 tab 12/08/20 Allergies Allergy/AdvReac Type Severity Reaction Status Date / Time pineapple [PINEAPPLE] Allergy Unknown TONGUE Verified 11/27/20 11:11 ROCKY Review of Systems Review of Systems: All other systems are reviewed and are negative Constitutional: Reports as per HPI and Reports no additional constitutional complaints Eyes: Reports as per HPI and Reports no additional eye complaints Reports system reviewed and no additional complaints, except as documented Cardiovascular: Reports as per HPI and Reports no additional cardiovascular complaints Respiratory: Reports as per HPI and Reports no additional respiratory complaints Gastrointestinal: Reports as per HPI and Reports no additional gastrointestinal complaints Genitourinary: Reports no additional female genitourinary complaints Musculoskeletal: Reports no additional musculoskeletal complaints Skin/Breast: Reports system reviewed and no additional complaints, except as docu Psychiatric: Reports no additional psychiatric complaints Endocrine: Reports no additional endocrine complaints Hematologic/Lymphatic: Reports no additional hematologic/lymphatic complaints Allergic/Immunologic: Reports no additional allergic/immunologic complaints Reports system reviewed and no additional complaints, except as documented and Reports Abnormal speech present [facility] Past Medical History Medical History Asthma COVID-19 vaccine series completed Diabetes mellitus Elevated cholesterol Erosive osteoarthritis Full dentures Hypertension Low back pain Obesity Palpitations Primary osteoarthritis of knees, bilateral Primary osteoarthritis of right knee Surgical History H/O Spinal surgery History of Hx of colonoscopy Hx of reduction mammoplasty Hx of tonsillectomy Family History Family History Mother Hx of acute arthritis Father History of Parkinson's disease Social History Social History Household Members: Other Household Members Other:: Room mate Housing: Apartment Are you a primary workforce investment act career manager to a significant other at home: No 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 Blood pressure normal. Heart rate normal. Respiration rate normal. Temperature normal. Oxygen saturation normal. Appearance: Alert. Oriented X3. No acute distress. Head: Normal external exam. Normocephalic. Atraumatic. No Romeo signs noted. No raccoon eyes noted Eyes: PERRLA. EOMI. Conjunctiva and sclera normal. Eyelids normal. ENT: TM's Normal. Pharynx normal. Uvula midline. Moist mucous membranes. No trismus noted. No drooling noted. No muffled voice noted. Neck: Normal inspection. Neck supple. FROM. No adenopathy. Thyroid Normal. No meningeal signs. No neck mass noted. CVS: Normal heart rate and rhythm. Heart sound normal. No murmurs noted. Pulses normal throughout. Respiratory: No respiratory distress. Painless inspiration. Breath sounds normal. No wheezes/rales/rhonchi noted. Chest nontender. No accessory muscle usage noted or decreased air movement noted. Abdomen: Soft and nontender. Bowel sounds normal in all 4 quadrants. No distention noted. No organomegaly noted. No visible injury noted. Back: No CVA tenderness. Full range of motion noted. Skin: Skin warm and dry. Normal skin color. Normal skin turgor. No rashes/lesions/lacerations noted. Extremities: Status post right knee replacement, dressing is dry and clean and intact, swelling in the right calf with tenderness with spots of ecchymosis could be normal change after surgery. Neuro: Oriented X 3. No motor deficit. No sensory deficit. Reflexes normal. Course Course Course Narrative: 60-year-old female came in after she had a syncopal episode without chest pain or shortness of breath. Patient status post right total knee arthroplasty. Patient had ultrasound of right lower extremities which ruled out DVT. Chest x-ray unremarkable. Cardiac-contreras patient had an unremarkable troponin and EKG. Patient's symptoms started 3 days ago after taking an old medication for pain control of her right knee. Slight leukocytosis (patient had a history of leukocytosis today's value indicating it is trending down toward normal). Will start patient on few pills of oxycodone to help postoperative pain. Patient was instructed not to take pain medication on empty stomach. Medical Decision Making Lab Data Lab results reviewed: Yes I reviewed the patient's lab results. Result diagrams: 12/08/20 11:43 12/08/20 11:43 Labs: Lab Results 12/08/20 12/08/20 12/08/20 Range/Units 11:43 11:43 11:43 WBC 11.5 H (4.8-10.8) X10*3/uL RBC 3.38 L (4.20-5.50) X10*6/uL Hgb 10.7 L (12.0-16.0) g/dl Hct 32.2 L (37-47) % MCV 95.3 (80-98) fL MCH 31.7 (27.0-33.0) pg MCHC 33.2 (31.0-35.0) g/dl RDW 12.8 (11.0-16.0) % Plt Count 254 D (160-400) X10*3/uL MPV 8.8 L (9.4-12.3) fL Immature Gran % (Auto) 0.4 (0.0-0.4) % Neut % (Auto) 73.3 H (45-73) % Lymph % (Auto) 12.8 L (20-40) % [place] % (Auto) 12.0 H (2-11) % Eos % (Auto) 1.4 (0-4) % Baso % (Auto) 0.1 (0-2) % Lymph # (Auto) 1.5 (1.2-4.9) X10*3/uL [place] # (Auto) 1.4 H (0.1-1.2) X10*3/uL Eos # (Auto) 0.2 (0.0-0.4) X10*3/uL Baso # (Auto) 0.0 (0.0-0.2) X10*3/uL Abs Immat Gran (auto) 0.05 H (0.00-0.03) X10*3/uL Absolute Neuts (auto) 8.4 H (2.0-8.3) X10*3/uL Absolute Nucleated RBC 0.000 (0.0-0.012) X10*3/uL Nucleated RBC % (auto) 0.0 (0.0-0.2) /100WBC Sodium 137 (135-145) mmol/L Potassium 3.9 (3.3-5.1) mmol/L Chloride 101 (96-108) mmol/L Carbon Dioxide 28 (22-29) mmol/L Anion Gap 12 (12-20) BUN 20 H (9-16) mg/dL Creatinine 0.88 (0.5-1.4) mg/dL Estim Creat Clear Calc 69.9 Estimated GFR > 60 Random Glucose 133 H (60-115) mg/dL Calcium 8.6 (8.4-10.2) mg/dL Total Bilirubin 1.1 H (0.0-1.0) mg/dL Direct Bilirubin 0.4 (0.0-0.5) mg/dL AST 20 (5-31) U/L ALT 19 (0-31) U/L Alkaline Phosphatase 100 (39-117) U/L Troponin I High Sens < 3.5 (<3.5-17.0) ng/L Total Protein 6.1 L (6.5-8.0) g/dL Albumin 3.5 (3.5-5.0) g/dL Lipase 22 (8-78) U/L Urine Color Urine Appearance Urine pH (5.0-8.0) Ur Specific [place] (1.005-1.025) Urine Protein (NEG-TRACE) MG/DL Urine Glucose (UA) (NEG) MG/DL Urine Ketones (NEG) MG/DL Urine Blood (NEG) Urine Nitrite (NEG) Ur Leukocyte Esterase (NEG) 12/08/20 Range/Units 13:00 WBC (4.8-10.8) X10*3/uL RBC (4.20-5.50) X10*6/uL Hgb (12.0-16.0) g/dl Hct (37-47) % MCV (80-98) fL MCH (27.0-33.0) pg MCHC (31.0-35.0) g/dl RDW (11.0-16.0) % Plt Count (160-400) X10*3/uL MPV (9.4-12.3) fL Immature Gran % (Auto) (0.0-0.4) % Neut % (Auto) (45-73) % Lymph % (Auto) (20-40) % [place] % (Auto) (2-11) % Eos % (Auto) (0-4) % Baso % (Auto) (0-2) % Lymph # (Auto) (1.2-4.9) X10*3/uL [place] # (Auto) (0.1-1.2) X10*3/uL Eos # (Auto) (0.0-0.4) X10*3/uL Baso # (Auto) (0.0-0.2) X10*3/uL Abs Immat Gran (auto) (0.00-0.03) X10*3/uL Absolute Neuts (auto) (2.0-8.3) X10*3/uL Absolute Nucleated RBC (0.0-0.012) X10*3/uL Nucleated RBC % (auto) (0.0-0.2) /100WBC Sodium (135-145) mmol/L Potassium (3.3-5.1) mmol/L Chloride (96-108) mmol/L Carbon Dioxide (22-29) mmol/L Anion Gap (12-20) BUN (9-16) mg/dL Creatinine (0.5-1.4) mg/dL Estim Creat Clear Calc Estimated GFR Random Glucose (60-115) mg/dL Calcium (8.4-10.2) mg/dL Total Bilirubin (0.0-1.0) mg/dL Direct Bilirubin (0.0-0.5) mg/dL AST (5-31) U/L ALT (0-31) U/L Alkaline Phosphatase (39-117) U/L Troponin I High Sens (<3.5-17.0) ng/L Total Protein (6.5-8.0) g/dL Albumin (3.5-5.0) g/dL Lipase (8-78) U/L Urine Color YELLOW Urine Appearance CLEAR Urine pH 6.5 (5.0-8.0) Ur Specific [place] 1.015 (1.005-1.025) Urine Protein NEG (NEG-TRACE) MG/DL Urine Glucose (UA) NEG (NEG) MG/DL Urine Ketones NEG (NEG) MG/DL Urine Blood NEG (NEG) Urine Nitrite NEG (NEG) Ur Leukocyte Esterase NEG (NEG) Imaging Data Right leg ultrasound.: Radiologist's impression: No DVT demonstrated in the right lower extremity. CT scan - head: Radiologist's impression: No acute intracranial process seen. Chest x-ray: Radiologist's impression: Hypoexpanded lungs without acute process. ECG Data Interpretation: Normal sinus rhythm at 81 beats per minute, normal axis, normal intervals, no ST-T changes. Discharge Plan Discharge Clinical Impression: Orthostatic syncope, Post-operative pain Patient Disposition: Home, Self-Care Instructions: Pain Management After Surgery (DC) Prescriptions: New oxycodone 5 mg tablet 5 mg PO Q8H PRN (Reason: pain) Qty: 10 RF: 0 No Action hydrochlorothiazide 12.5 mg tablet 12.5 mg PO DAILY 90 Days Qty: 90 RF: 1 atorvastatin 40 mg Tablet 40 mg PO BEDTIME RF: 0 amitriptyline 50 mg Tablet 50 mg PO BEDTIME RF: 0 baclofen 10 mg Tablet 10 mg PO DAILY RF: 0 albuterol sulfate [Proventil HFA] 90 mcg/actuation Hfa Aerosol Inhaler 2 puff INHALATION Q4-6H PRN (Reason: Shortness Of Breath Or Wheezing) RF: 0 fluticasone propionate 110 mcg/actuation Hfa Aerosol Inhaler 110 mcg INHALATION BID RF: 0 acetaminophen 325 mg Tablet 650 mg PO Q6H PRN (Reason: Pain, Mild (Pain Scale 1-3)) 30 Days Qty: 240 RF: 0 aspirin 325 mg Tablet 325 mg PO BID 42 Days Qty: 84 RF: 0 docusate sodium 100 mg Capsule 100 mg PO BID 30 Days Qty: 60 RF: 0 oxycodone 5 mg Tablet 5 mg PO Q4H PRN (Reason: Pain, Moderate (Pain Scale 4-6) 7 Days Qty: 42 RF: 0 amlodipine 5 mg tablet 5 mg PO DAILY RF: 0 metformin 500 mg tablet 1,000 mg PO BID RF: 0 Referrals: Chai Sebastian MD [Physician] - 2 days Rose Mary Castellano NP [Primary Care Provider] - 2 days
[2020-12-08 11:47] LABS: MANUAL DIFF FLAG NO
[2020-12-08 11:50] LABS: Basophils Percent Auto 0.1 % (0-2); Eosinophils Absolute Auto 0.2 X10*3/uL (0.0-0.4); Eosinophils Percent Auto 1.4 % (0-4); Hematocrit 32.2 % (37-47); Hemoglobin 10.7 g/dl (12.0-16.0); Imm Gran Abs Auto 0.05 X10*3/uL (0.00-0.03); Imm Gran Pct Auto 0.4 % (0.0-0.4); Lymphocytes Absolute Auto 1.5 X10*3/uL (1.2-4.9); Lymphocytes Percent Auto 12.8 % (20-40); Mean Corpuscular HGB Conc 33.2 g/dl (31.0-35.0); Mean Corpuscular Hemoglobin 31.7 pg (27.0-33.0); Mean Corpuscular Volume 95.3 fL (80-98); Mean Platelet Volume 8.8 fL (9.4-12.3); Monocytes Absolute Auto 1.4 X10*3/uL (0.1-1.2); Neutrophils Absolute Auto 8.4 X10*3/uL (2.0-8.3); Neutrophils Percent Auto 73.3 % (45-73); Platelet Count 254 X10*3/uL (160-400); Red Blood Count 3.38 X10*6/uL (4.20-5.50); Red Cell Distribution Width 12.8 % (11.0-16.0); White Blood Count 11.5 X10*3/uL (4.8-10.8)
[2020-12-08] MEDS: 0.9 % Sodium Chloride 1,000 ML 999 ML IVCONT (12:16)
[2020-12-08 12:20] LABS: Alanine Aminotransferase 19 U/L (0-31); Albumin Level 3.5 g/dL (3.5-5.0); Alkaline Phosphatase 100 U/L (39-117); Anion Gap 12 (12-20); Aspartate Amino Transferase 20 U/L (5-31); Bilirubin Direct 0.4 mg/dL (0.0-0.5); Bilirubin Total 1.1 mg/dL (0.0-1.0); Blood Urea Nitrogen 20 mg/dL (9-16); Calcium 8.6 mg/dL (8.4-10.2); Carbon Dioxide 28 mmol/L (22-29); Chloride 101 mmol/L (96-108); Creatinine Clr Calc Pharmacy 69.9; Estimated Glomerular Filt Rate > 60; Glucose Random 133 mg/dL (60-115); Lipase 22 U/L (8-78); Potassium 3.9 mmol/L (3.3-5.1); Sodium 137 mmol/L (135-145); Total Protein 6.1 g/dL (6.5-8.0)
[2020-12-08 12:25] LABS: Troponin-I High Sensitivity < 3.5 ng/L (<3.5-17.0)
[2020-12-08 13:13] LABS: Appearance Urine CLEAR; Color Urine YELLOW; Glucose Urine UA NEG (NEG); Leukocyte Esterase Urine NEG (NEG); Nitrite Urine NEG (NEG); PH 6.5 (5.0-8.0); Specific Gravity - Urine 1.015 (1.005-1.025); Urine Blood NEG (NEG); Urine Ketones NEG (NEG); Urine Protein NEG (NEG-TRACE)
[2020-12-08 14:11] VITALS: BP 130/72; BP 131/79; PULSE 79; PULSE 80
[2020-12-08 14:12] VITALS: BP 131/79; PULSE 80; RESP 18; O2SAT 100
[2020-12-08 14:49] VITALS: RESP 16
[2020-12-08] MEDS: Morphine Sulfate 2 MG/ML CARTRIDGE IVPUSH (14:49)
== END 2020-12-08 14:59 | disposition home or self-care (01) ==
PROVIDERS: Emergency Provider Emergency Medicine; PCP Nurse Practitioner Primary Care
DX: I95.1 Orthostatic hypotension (principal); G89.18 Other acute postprocedural pain; E11.9 Type 2 diabetes mellitus without complications; E78.5 Hyperlipidemia, unspecified; I10 Essential (primary) hypertension; Z79.82 Long term (current) use of aspirin; Z79.02 Long term (current) use of antithrombotics/antiplatelets; Z79.899 Other long term (current) drug therapy; Z79.84 Long term (current) use of oral hypoglycemic drugs
CPT/HCPCS: 36415; 70450; 71045; 80048; 80076; 81003; 83690; 84484; 85025; 93005; 93971; 96361; 96374; 96376; 99285; J2270

== ENCOUNTER 2020-12-11 13:37 | Outpatient (REF) | payer MEDICAID, SELFPAY ==
--- NOTE | ~2020-12-11 | XR_ITS ---
EXAMINATION:XR knee RT 3V, XR knee RT 2V CLINICAL INFORMATION: Reason for Exam M17.11 - Unilateral primary osteoarthritis, right knee COMPARISON: None available at the time of this dictation. TECHNIQUE: Bilateral frontal, right frontal and lateral. FINDINGS: BONES: No fracture or dislocation is present. JOINTS: There is total knee replacement prosthesis device, both femoral and tibial component of which is properly positioned maintaining normal alignment's. No radiologic evidence of device loosening. Patella properly positioned. The device is properly positioned maintaining anatomic alignment's. There are degenerative osteoarthritic changes of the left knee. SOFT TISSUE: Subcutaneous emphysema postsurgical. XR/XR knee RT 2V IMPRESSION: Postsurgical changes, right total knee replacement. There are degenerative arthritis of the left knee as well.
--- NOTE | ~2020-12-11 | XR_ITS ---
EXAMINATION:XR knee RT 3V, XR knee RT 2V CLINICAL INFORMATION: Reason for Exam M17.11 - Unilateral primary osteoarthritis, right knee COMPARISON: None available at the time of this dictation. TECHNIQUE: Bilateral frontal, right frontal and lateral. FINDINGS: BONES: No fracture or dislocation is present. JOINTS: There is total knee replacement prosthesis device, both femoral and tibial component of which is properly positioned maintaining normal alignment's. No radiologic evidence of device loosening. Patella properly positioned. The device is properly positioned maintaining anatomic alignment's. There are degenerative osteoarthritic changes of the left knee. SOFT TISSUE: Subcutaneous emphysema postsurgical. XR/XR knee RT 3V IMPRESSION: Postsurgical changes, right total knee replacement. There are degenerative arthritis of the left knee as well.
== END 2020-12-11 13:38 | disposition home or self-care (01) ==
LOC: HO.HOSX 13:37
PROVIDERS: PCP Nurse Practitioner Primary Care; Visit Provider Physician Assistant
DX: M25.561 Pain in right knee (principal); Z91.81 History of falling; Z96.651 Presence of right artificial knee joint
CPT/HCPCS: 73560; 73562; 99212

== ENCOUNTER → 2020-12-18 14:30 | Outpatient (BNVA) | payer MEDICAID, SELFPAY | PROVIDERS: Visit Provider Physician Assistant | DX: Z96.651 Presence of right artificial knee joint (principal) | CPT/HCPCS: 99212 ==

== ENCOUNTER → 2020-12-25 15:29 | Outpatient (BNVA) | payer MEDICAID, SELFPAY | PROVIDERS: PCP Nurse Practitioner Primary Care; Visit Provider Orthopaedic Surgery | DX: Z47.1 Aftercare following joint replacement surgery (principal); Z96.651 Presence of right artificial knee joint | CPT/HCPCS: 99212 ==

== ENCOUNTER → 2021-01-01 10:45 | Outpatient (BNVA) | payer MEDICAID, SELFPAY | PROVIDERS: PCP Nurse Practitioner Primary Care; Visit Provider Orthopaedic Surgery | DX: Z47.1 Aftercare following joint replacement surgery (principal); Z96.651 Presence of right artificial knee joint | CPT/HCPCS: 99212 ==

== ENCOUNTER 2021-01-22 14:24 | Outpatient (REF) | payer MEDICAID, SELFPAY ==
--- NOTE | ~2021-01-22 | XR_ITS ---
EXAMINATION: BILATERAL HAND AND WRIST X-RAY CLINICAL INFORMATION: Pain COMPARISON: Previous x-ray December 2017 TECHNIQUE: 4 views of each hand and wrist Findings: Left: Bone alignment is normal. No fracture or dislocation is seen. There is arthritis at the IP joints and first joint with joint space narrowing and osteophyte formation. Soft tissues are unremarkable. Right: Bone alignment is normal. No fracture or dislocation is seen. There is arthritis at the IP and first GROUP HOME joints with joint space narrowing and osteophyte formation. There are mild erosive changes at the DIP joint of the third and fourth fingers increased from previous exam. Soft tissues are unremarkable. XR/XR hand wrist RT Impression: Bilateral osteoarthritis at the IP joints and first GROUP HOME joints. This is most severe at the DIP joints of the third and fourth right fingers were there are mild erosive changes as well. This is increased compared to previous exams.
--- NOTE | ~2021-01-22 | XR_ITS ---
EXAMINATION: BILATERAL HAND AND WRIST X-RAY CLINICAL INFORMATION: Pain COMPARISON: Previous x-ray December 2017 TECHNIQUE: 4 views of each hand and wrist Findings: Left: Bone alignment is normal. No fracture or dislocation is seen. There is arthritis at the IP joints and first joint with joint space narrowing and osteophyte formation. Soft tissues are unremarkable. Right: Bone alignment is normal. No fracture or dislocation is seen. There is arthritis at the IP and first PRISON joints with joint space narrowing and osteophyte formation. There are mild erosive changes at the DIP joint of the third and fourth fingers increased from previous exam. Soft tissues are unremarkable. XR/XR hand wrist LT Impression: Bilateral osteoarthritis at the IP joints and first PRISON joints. This is most severe at the DIP joints of the third and fourth right fingers were there are mild erosive changes as well. This is increased compared to previous exams.
== END 2021-01-22 14:25 | disposition home or self-care (01) ==
LOC: CF 14:24
PROVIDERS: PCP Nurse Practitioner Primary Care; Referring Provider Nurse Practitioner Primary Care; Visit Provider Physician Assistant
DX: Z47.1 Aftercare following joint replacement surgery (principal); M79.641 Pain in right hand; M79.642 Pain in left hand; Z96.651 Presence of right artificial knee joint
CPT/HCPCS: 73110; 73130; 99212

== ENCOUNTER 2021-02-13 13:40 | Outpatient (REF) | payer MEDICAID, SELFPAY ==
--- NOTE | ~2021-02-13 | MM_ITS ---
EXAMINATION: MM SCREENING DIGITAL BREAST TOMOSYNTHESIS, BILATERAL CLINICAL INFORMATION: Screening. Asymptomatic. Prior mammography from [place] currently unavailable. Age 60. Remote history reduction mammoplasty, 1997. Family history breast cancer, mother. The lifetime risk of breast cancer based on the Tyrer-Cuzick Model is 11%. COMPARISON: None. TECHNIQUE: Digital breast tomosynthesis is performed in both the craniocaudal and mediolateral oblique views along with computer-aided detection (CAD). Synthesized 2D images are generated from the tomosynthesis. FINDINGS: There are scattered areas of fibroglandular density (ACR BI-RADS breast composition Category b). Breast tissue composition borders on predominantly fatty. There is some minor bilateral scarring consistent with the history reduction mammoplasty. There is no significant mass or architectural abnormality. No abnormal calcifications. The axilla are unremarkable. MM/MM tomosynthesis screening BI IMPRESSION: No mammographic evidence of malignancy. ASSESSMENT: BI-RADS 2: Benign RECOMMENDATION: Routine annual mammography screening. This patient's information was entered into a reminder system with a target due date for their next mammogram.
== END 2021-02-13 13:41 | disposition home or self-care (01) ==
LOC: HO.MAMMO 13:40
PROVIDERS: Visit Provider Nurse Practitioner Primary Care
DX: Z12.31 Encounter for screening mammogram for malignant neoplasm of breast (principal)
CPT/HCPCS: 77063; 77067

== ENCOUNTER 2021-02-26 12:51 | Outpatient (REF) | payer MEDICAID, SELFPAY ==
--- NOTE | ~2021-02-26 | XR_ITS ---
EXAMINATION: XR KNEE STANDING, BILATERAL XR KNEE, RIGHT CLINICAL INFORMATION: Pain. COMPARISON: Right knee radiographs dated 12/11/2020. TECHNIQUE: AP standing view of the right and left knee. Lateral and sunrise views of the right knee. FINDINGS: Total right knee arthroplasty. No acute hardware or osseous fracture. No perihardware lucency to suggest loosening or infection. No osseous erosion. No significant joint effusion. Left knee medial compartment joint space narrowing with marginal osteophytes, unchanged. XR/XR knee RT 2V IMPRESSION: Total right knee arthroplasty without evidence of complication. Left knee medial compartment osteoarthritis, unchanged.
--- NOTE | ~2021-02-26 | XR_ITS ---
EXAMINATION: XR KNEE STANDING, BILATERAL XR KNEE, RIGHT CLINICAL INFORMATION: Pain. COMPARISON: Right knee radiographs dated 12/11/2020. TECHNIQUE: AP standing view of the right and left knee. Lateral and sunrise views of the right knee. FINDINGS: Total right knee arthroplasty. No acute hardware or osseous fracture. No perihardware lucency to suggest loosening or infection. No osseous erosion. No significant joint effusion. Left knee medial compartment joint space narrowing with marginal osteophytes, unchanged. XR/XR knee standing BI IMPRESSION: Total right knee arthroplasty without evidence of complication. Left knee medial compartment osteoarthritis, unchanged.
== END 2021-02-26 12:52 | disposition home or self-care (01) ==
LOC: HO.HOSX 12:51
PROVIDERS: Visit Provider Physician Assistant
DX: Z47.1 Aftercare following joint replacement surgery (principal); M25.562 Pain in left knee; Z96.651 Presence of right artificial knee joint
CPT/HCPCS: 73560; 73565; 99212

== ENCOUNTER → 2021-03-25 12:56 | Outpatient (BNVA) | payer MEDICAID, SELFPAY | PROVIDERS: PCP Nurse Practitioner Primary Care; Referring Provider Nurse Practitioner Primary Care; Visit Provider Internal Medicine Cardiovascular Disease | DX: R06.00 Dyspnea, unspecified (principal); R00.2 Palpitations; I10 Essential (primary) hypertension; E11.9 Type 2 diabetes mellitus without complications; E78.00 Pure hypercholesterolemia, unspecified; E66.9 Obesity, unspecified; Z68.32 Body mass index [BMI] 32.0-32.9, adult; Z91.018 Allergy to other foods; Z79.84 Long term (current) use of oral hypoglycemic drugs; Z79.891 Long term (current) use of opiate analgesic; Z79.899 Other long term (current) drug therapy | CPT/HCPCS: 99212 ==

== ENCOUNTER → 2021-04-16 15:11 | Outpatient (BNVA) | payer MEDICAID, SELFPAY | PROVIDERS: PCP Nurse Practitioner Primary Care; Visit Provider Surgery Vascular Surgery | DX: I83.12 Varicose veins of left lower extremity with inflammation (principal) | CPT/HCPCS: 99202 ==

== ENCOUNTER → 2021-07-06 14:22 | Outpatient (BNVA) | payer MEDICAID, SELFPAY | PROVIDERS: PCP Nurse Practitioner Primary Care; Visit Provider Orthopaedic Surgery | DX: Z47.1 Aftercare following joint replacement surgery (principal); M17.12 Unilateral primary osteoarthritis, left knee; Z96.651 Presence of right artificial knee joint | CPT/HCPCS: 99212 ==

== ENCOUNTER 2021-08-13 12:13 | Outpatient (REF) | payer MEDICAID, SELFPAY ==
--- NOTE | ~2021-08-13 | US_ITS ---
EXAMINATION: US LOWER EXTREMITY VENOUS (REFLUX EXAM), BILATERAL CLINICAL INDICATION: This is a 60-year-old female with venous insufficiency and varicose veins. COMPARISON: None. TECHNIQUE: Color flow triplex imaging and compression Doppler was performed to evaluate both the deep and the superficial systems bilaterally. To evaluate the superficial system, the examination was performed in the upright position. Color-flow Doppler ultrasound and compression ultrasound were utilized. In addition, maneuvers were utilized to demonstrate reflux. FINDINGS: 1. DEEP VENOUS ULTRASOUND OF THE RIGHT LOWER EXTREMITY: Common Femoral Vein: Compressible, normal respiratory variation and augmented flow. Femoral vein: Compressible, normal color flow and augmentation. Popliteal Vein: Compressible, normal augmentation. Deep Reflux: There is no evidence of reflux in the deep system in either the common femoral vein or the popliteal vein. There is no evidence of a Montes's cyst. 2. SUPERFICIAL ULTRASOUND WITH DOPPLER OF RIGHT LOWER EXTREMITY: GREAT SAPHENOUS VEIN: Saphenofemoral Junction: 0.4 cm Mid Thigh: 0.3 cm Above Knee: 0.3 cm Below Knee: 0.1 cm Mid Calf: 0.2 cm Ankle: 0.2 cm GSV REFLUX: No evidence of reflux. DUPLICATED GREAT SAPHENOUS VEIN: There is a 0.3 cm duplicated lateral great saphenous vein without reflux. SMALL SAPHENOUS VEIN: Proximal: 0.2 cm Distal: 0.1 cm SSV REFLUX: No evidence of reflux. VEIN OF GIACOMINI: None Imaged. PERFORATORS: There are 0.3 cm perforators at the knee without reflux. VARICOSITIES: None Imaged 3. DEEP VENOUS ULTRASOUND OF THE LEFT LOWER EXTREMITY: Common Femoral Vein: Compressible, normal respiratory variation and augmented flow. Femoral Vein: There is reflux in the femoral vein measuring 2640 ms. Popliteal Vein: Compressible, normal augmentation. Deep Reflux: There is no evidence of reflux in the deep system in either the common femoral vein or the popliteal vein. However, there is deep reflux in the left common femoral vein. There is no evidence of a Montes's cyst. 4. SUPERFICIAL ULTRASOUND WITH DOPPLER OF LEFT LOWER EXTREMITY: GREAT SAPHENOUS VEIN: Saphenofemoral Junction: 0.4 cm Mid Thigh: 0.2 cm Above Knee: 0.2 cm Below Knee: 0.2 cm Mid Calf: 0.1 cm Ankle: 0.2 cm GSV REFLUX: No evidence of reflux. DUPLICATED GREAT SAPHENOUS VEIN: There is a 0.2 cm duplicated lateral great saphenous vein without reflux. SMALL SAPHENOUS VEIN: Proximal: 0.2 cm Distal: 0.1 cm SSV REFLUX: No evidence of reflux. VEIN OF GIACOMINI: None Imaged. PERFORATORS: There are 0.3 cm proximal anterior calf perforators with reflux of 1088 ms. VARICOSITIES: There are varicose veins measure 0.3 cm in the proximal calf with reflux of 672 ms. US/US venous duplex LE BI IMPRESSION: 1. There are patent bilateral great saphenous veins, duplicated lateral great saphenous veins, small saphenous veins without evidence of reflux or insufficiency. 2. Varicose veins are not seen on the right. However, varicose veins are seen on the left in the calf.
== END 2021-08-13 12:14 | disposition home or self-care (01) ==
LOC: HO.US 12:13
PROVIDERS: Visit Provider Surgery Vascular Surgery
DX: I83.893 Varicose veins of bilateral lower extremities with other complications (principal)
CPT/HCPCS: 93970

== ENCOUNTER → 2021-08-18 13:43 | Outpatient (BNVA) | payer MEDICAID, SELFPAY | PROVIDERS: PCP Nurse Practitioner Primary Care; Visit Provider Surgery Vascular Surgery | DX: I83.12 Varicose veins of left lower extremity with inflammation (principal) | CPT/HCPCS: 99212 ==

== ENCOUNTER 2021-09-13 19:16 | Emergency (ER) | payer MEDICAID, SELFPAY ==
--- NOTE | 2021-09-13 | ECG_ITS ---
Test Reason : CHEST PAIN Blood Pressure : / mmHG Vent. Rate : 076 BPM Atrial Rate : 076 BPM P-R Int : 134 ms QRS Dur : 082 ms QT Int : 412 ms P-R-T Axes : 042 016 030 degrees QTc Int : 463 ms Normal sinus rhythm Normal ECG When compared with ECG of 08-DEC-2020 13:42, No significant change was found Referred By: Shirlene Narvaez Electronically Signed By:Ramos Lieberman
[2021-09-13 19:29] VITALS: BP 225/104; PULSE 82; RESP 18; TEMP 36.2; O2SAT 97; BMI 32.4
[2021-09-13 22:31] LABS: MANUAL DIFF FLAG NO
--- NOTE | 2021-09-13 22:31 | ED_ITS ---
HPI - Chest Pain General Chief Complaint: Chest Pain Stated Complaint: general medical Time Seen by Provider: 09/13/21 21:48 Source: patient Mode of arrival: ambulatory Limitations: no limitations History of Present Illness HPI narrative: Patient comes to emergency room complaining of hypertension and left arm pain. Patient states that she has been diagnosed with hypertension in the past. Patient takes 5 mg of amlodipine daily, states that she is compliant with her medication. Patient states a few days ago she was seen by her PCP, her blood pressure was in the 150s. Patient already had intermittent headache and left arm pain. Patient complaining of ongoing symptoms. Patient denies chest pain or shortness of breath. No visual changes. Related Data Home Medications Medication Instructions Recorded Confirmed amlodipine 5 mg tablet 5 mg PO DAILY 05/09/20 03/25/21 metformin 500 mg tablet 1,000 mg PO BID tab 10/22/20 03/25/21 albuterol sulfate 90 mcg/actuation 2 puff INHALATION Q4-6H PRN 11/27/20 03/25/21 aerosol inhaler (Proventil HFA) atorvastatin 40 mg tablet 40 mg PO BEDTIME 11/27/20 03/25/21 baclofen 10 mg tablet 10 mg PO DAILY 11/27/20 03/25/21 fluticasone propionate 110 110 mcg INHALATION BID 11/27/20 03/25/21 mcg/actuation HFA aerosol inhaler Previous Rx's Medication Instructions Recorded hydrochlorothiazide 12.5 mg tablet 12.5 mg PO DAILY 90 Days #90 tab 10/13/20 acetaminophen 325 mg tablet 650 mg PO Q6H PRN 30 Days #240 tab 12/03/20 aspirin 325 mg tablet 325 mg PO BID 42 Days #84 tab 12/03/20 docusate sodium 100 mg capsule 100 mg PO BID 30 Days #60 cap 12/03/20 oxycodone 5 mg tablet 5 mg PO Q8H PRN #10 tab 12/08/20 amlodipine 10 mg tablet 10 mg PO DAILY #30 tab 09/14/21 Allergies Allergy/AdvReac Type Severity Reaction Status Date / Time pineapple [PINEAPPLE] Allergy Unknown TONGUE Verified 08/18/21 14:07 ROCKY Review of Systems Review of Systems: Constitutional : No Weight loss, No Fever, No Chills, No Night Sweats, No Fatigue, No Malaise ENT/Mouth : No Hearing loss, No Ear Pain, No Nasal Congestion, No Sinus Pain, No Hoarseness, No sore throat, No Rhinorrhea, No Swallowing Difficulty Eyes: No Eye Pain, No Swelling, No Redness, No Foreign Body, No Discharge, No Vision Changes Cardiovascular : No Chest Pain, No SOB, No Dyspnea on Exertion, No Orthopnea, No Edema, No Palpitations, complaining of hypertension, left-sided arm Respiratory : No Cough, No Sputum, No Wheezing, No Smoke Exposure, No Dyspnea Gastrointestinal : No Nausea, No Vomiting, No Diarrhea, No Constipation, No abdominal Pain, No Hematochezia, No Melena Genitourinary : no irregular bleeding, No Dysuria, No Urinary Frequency, No Hematuria, No Urinary Incontinence, No Urgency, No Flank Pain, No Urinary Flow Changes, No Hesitancy Musculoskeletal : No joint pain, No Myalgias, No Joint Swelling Skin : No Skin Lesions, No rash Neuro : No Weakness, No Numbness, No Paresthesias, No Loss of Consciousness, No Dizziness, complaining of headache secondary to high blood pressure Psych : No Anxiety/Panic, No Depression, No SI/HI/AH/VH, No Social Issues, Heme/Lymph: No Bruising, No Bleeding,No Lymphadenopathy Endocrine : No Polyuria, No Polydipsia, No Temperature Intolerance PMFSH Past Medical History Medical History Asthma COVID-19 vaccine series completed Diabetes mellitus Elevated cholesterol Erosive osteoarthritis Full dentures Hypertension Low back pain Obesity Palpitations Primary osteoarthritis of knees, bilateral Primary osteoarthritis of right knee Surgical History H/O Spinal surgery History of History of total bilateral knee replacement Hx of colonoscopy Hx of reduction mammoplasty Hx of tonsillectomy Family History Family History Mother Hx of acute arthritis Father History of Parkinson's disease Social History Social History Household Members: Other Household Members Other:: Room mate Housing: Apartment Are you a primary post acute care nurse to a significant other at home: No 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 Oriented X3. No acute distress. Well-appearing Eyes: Pupils equal, round and reactive to light. ENT: Pharynx normal. Neck: Normal inspection. Neck supple. No lymph nodes noted. No crepitus CVS: Normal heart rate and rhythm. Pulses normal. Normal S1 and S2, blood pressure 198 systolic Respiratory: No respiratory distress. Breath sounds normal. No Wheezing. No rales Abdomen: Soft and nontender. No rigidity. No distention. Skin: Skin warm and dry. Normal skin color. Normal skin turgor. Extremities: No lower extremity edema.No Lacerations. No Rash Neuro: Oriented X 3. No motor deficit. No sensory deficit. Moving all extermities. No slurred speech. Course Course Course Narrative: This time, patient states that the distal portion of her left arm hurts, not the proximal. Patient denies chest pain, mild headache. Blood pressure 198/92, 1 dose of labetalol 200 mg has been given. Patient's blood pressure improved to 163/82. Heart rate 73. Patient states that she no longer has headache and feels completely back to baseline. EKG unremarkable. Patient instructed to increase her dose medication of amlodipine from 5 mg to 10 mg MDM - Chest Pain Lab Data Result diagrams: 09/13/21 22:27 09/13/21 22:27 Labs: Lab Results 09/13/21 09/13/21 09/13/21 Range/Units 22:27 22:27 22:27 WBC 8.0 (4.8-10.8) X10*3/uL RBC 4.13 L (4.20-5.50) X10*6/uL Hgb 12.6 (12.0-16.0) g/dl Hct 38.2 (37.0-47.0) % MCV 92.5 (80.0-98.0) fL MCH 30.5 (27.0-33.0) pg MCHC 33.0 (31.0-35.0) g/dl RDW 13.8 (11.0-16.0) % Plt Count 246 (160-400) X10*3/uL MPV 9.4 (9.4-12.3) fL Immature Gran % (Auto) 0.2 (0.0-0.4) % Neut % (Auto) 51.6 (45-73) % Lymph % (Auto) 35.5 (20-40) % [place] % (Auto) 9.7 (2-11) % Eos % (Auto) 2.5 (0-4) % Baso % (Auto) 0.5 (0-2) % Lymph # (Auto) 2.9 (1.2-4.9) X10*3/uL [place] # (Auto) 0.8 (0.1-1.2) X10*3/uL Eos # (Auto) 0.2 (0.0-0.4) X10*3/uL Baso # (Auto) 0.0 (0.0-0.2) X10*3/uL Abs Immat Gran (auto) 0.02 (0.00-0.03) X10*3/uL Absolute Neuts (auto) 4.1 (2.0-8.3) x10*3/uL Absolute Nucleated RBC 0.000 (0.0-0.012) X10*3/uL Nucleated RBC % (auto) 0.0 (0.0-0.2) /100WBC Sodium 139 (135-145) mmol/L Potassium 4.3 (3.3-5.1) mmol/L Chloride 101 (96-108) mmol/L Carbon Dioxide 27 (22-29) mmol/L Anion Gap 15 (12-20) BUN 15 (9-16) mg/dL Creatinine 0.84 (0.5-1.4) mg/dL Estim Creat Clear Calc 71.7 Estimated GFR > 60 Random Glucose 94 (60-115) mg/dL Calcium 9.6 D (8.4-10.2) mg/dL Troponin I High Sens < 3.5 (<3.5-17.0) ng/L ECG Data ECG #1: Attestation: I personally reviewed and interpreted this ECG as follows: (Sinus rhythm, heart rate 76, no ST segment depression with the patient, no T- wave inversion, QTC 463) Discharge Plan Discharge Clinical Impression: Hypertension Patient Disposition: Home, Self-Care Instructions: Hypertension (ED) Additional Instructions: Please follow-up with your primary care physician tomorrow. If you have any worsening or new symptoms, please return to the emergency room or call 911 Prescriptions: New amlodipine 10 mg tablet 10 mg PO DAILY Qty: 30 0RF No Action hydrochlorothiazide 12.5 mg tablet 12.5 mg PO DAILY 90 Days Qty: 90 1RF oxycodone 5 mg tablet 5 mg PO Q8H PRN (Reason: pain) Qty: 10 0RF atorvastatin 40 mg Tablet 40 mg PO BEDTIME 0RF baclofen 10 mg Tablet 10 mg PO DAILY 0RF albuterol sulfate [Proventil HFA] 90 mcg/actuation Hfa Aerosol Inhaler 2 puff INHALATION Q4-6H PRN (Reason: Shortness Of Breath Or Wheezing) 0RF fluticasone propionate 110 mcg/actuation Hfa Aerosol Inhaler 110 mcg INHALATION BID 0RF acetaminophen 325 mg Tablet 650 mg PO Q6H PRN (Reason: Pain, Mild (Pain Scale 1-3)) 30 Days Qty: 240 0RF aspirin 325 mg Tablet 325 mg PO BID 42 Days Qty: 84 0RF docusate sodium 100 mg Capsule 100 mg PO BID 30 Days Qty: 60 0RF amlodipine 5 mg tablet 5 mg PO DAILY 0RF metformin 500 mg tablet 1,000 mg PO BID 0RF
[2021-09-13 22:32] VITALS: BP 198/92; PULSE 78; RESP 15; TEMP 37.1; O2SAT 96
[2021-09-13 22:33] LABS: Basophils Percent Auto 0.5 % (0-2); Eosinophils Absolute Auto 0.2 X10*3/uL (0.0-0.4); Eosinophils Percent Auto 2.5 % (0-4); Hematocrit 38.2 % (37.0-47.0); Hemoglobin 12.6 g/dl (12.0-16.0); Imm Gran Abs Auto 0.02 X10*3/uL (0.00-0.03); Imm Gran Pct Auto 0.2 % (0.0-0.4); Lymphocytes Absolute Auto 2.9 X10*3/uL (1.2-4.9); Lymphocytes Percent Auto 35.5 % (20-40); Mean Corpuscular Hemoglobin 30.5 pg (27.0-33.0); Mean Corpuscular Volume 92.5 fL (80.0-98.0); Mean Platelet Volume 9.4 fL (9.4-12.3); Monocytes Absolute Auto 0.8 X10*3/uL (0.1-1.2); Monocytes Percent Auto 9.7 % (2-11); Neutrophils Absolute Auto 4.1 x10*3/uL (2.0-8.3); Neutrophils Percent Auto 51.6 % (45-73); Platelet Count 246 X10*3/uL (160-400); Red Blood Count 4.13 X10*6/uL (4.20-5.50); Red Cell Distribution Width 13.8 % (11.0-16.0)
[2021-09-13 22:49] LABS: Anion Gap 15 (12-20); Blood Urea Nitrogen 15 mg/dL (9-16); Calcium 9.6 mg/dL (8.4-10.2); Carbon Dioxide 27 mmol/L (22-29); Chloride 101 mmol/L (96-108); Creatinine Clr Calc Pharmacy 71.7; Estimated Glomerular Filt Rate > 60; Glucose Random 94 mg/dL (60-115); Potassium 4.3 mmol/L (3.3-5.1); Sodium 139 mmol/L (135-145)
[2021-09-13 22:56] LABS: Troponin-I High Sensitivity < 3.5 ng/L (<3.5-17.0)
[2021-09-13] MEDS: Labetalol HCL 200 MG TABLET PO (23:05)
[2021-09-13 23:57] VITALS: BP 163/82; PULSE 73; RESP 19; O2SAT 98
--- NOTE | 2021-09-14 00:21 | PC.NURSE ---
pt a&o, no sob or chest pain. Reviewed pt discharge plan. pt verbalized understanding. Pt discharged home to follow up with Pcp.
== END 2021-09-14 00:25 | disposition home or self-care (01) ==
PROVIDERS: Emergency Provider Emergency Medicine; PCP Nurse Practitioner Primary Care
DX: R07.9 Chest pain, unspecified (principal); Z79.899 Other long term (current) drug therapy
CPT/HCPCS: 36415; 80048; 84484; 85025; 93005; 99285

== ENCOUNTER → 2021-09-16 13:04 | Outpatient (BNVA) | payer MEDICAID, SELFPAY | PROVIDERS: PCP Nurse Practitioner Primary Care; Visit Provider Nurse Practitioner Family | DX: M79.641 Pain in right hand (principal); M79.642 Pain in left hand; M19.041 Primary osteoarthritis, right hand; M19.042 Primary osteoarthritis, left hand; M17.0 Bilateral primary osteoarthritis of knee; M85.80 Other specified disorders of bone density and structure, unspecified site; E11.9 Type 2 diabetes mellitus without complications; I10 Essential (primary) hypertension; E78.00 Pure hypercholesterolemia, unspecified; E66.9 Obesity, unspecified; Z68.31 Body mass index [BMI] 31.0-31.9, adult; Z96.651 Presence of right artificial knee joint; Z91.018 Allergy to other foods; Z79.84 Long term (current) use of oral hypoglycemic drugs; Z79.891 Long term (current) use of opiate analgesic; Z79.899 Other long term (current) drug therapy | CPT/HCPCS: 99212 ==

== ENCOUNTER 2021-09-29 16:13 | Outpatient (REF) | payer MEDICAID, SELFPAY ==
--- NOTE | ~2021-09-29 | XR_ITS ---
EXAMINATION: XR KNEE, RIGHT CLINICAL INFORMATION: Fall, injury. Right knee pain COMPARISON: Right knee 02/26/2021 TECHNIQUE: Four views of the right knee. FINDINGS: There is a total right knee prosthesis with prosthetic components in satisfactory alignment. There is no periprosthetic fracture. There is no periprosthetic lucency to suspect any loosening. There is no joint effusion seen. The soft tissues are normal. XR/XR knee RT 4V IMPRESSION: Total right knee arthroplasty in satisfactory position. No acute periprosthetic fracture or loosening seen. No change from previous study 02/26/2021
== END 2021-09-29 16:14 | disposition home or self-care (01) ==
LOC: HO.LAB 16:13
PROVIDERS: Absent Provider Registered Nurse Community Health; PCP Registered Nurse Community Health; Visit Provider Nurse Practitioner
DX: M25.561 Pain in right knee (principal)
CPT/HCPCS: 73564

== ENCOUNTER 2021-09-30 08:53 | Outpatient (REF) | payer MEDICAID, SELFPAY ==
[2021-09-30 10:14] LABS: Anion Gap 14 (12-20); Blood Urea Nitrogen 31 mg/dL (9-16); Carbon Dioxide 29 mmol/L (22-29); Chloride 100 mmol/L (96-108); Cholesterol 219 mg/dL; Estimated Glomerular Filt Rate 52; Glucose Random 112 mg/dL (60-115); HDL Cholesterol 77 mg/dL; LDL Cholesterol Calculated 126 mg/dl; Potassium 4.4 mmol/L (3.3-5.1); Sodium 139 mmol/L (135-145); Triglycerides 83 mg/dL
== END 2021-09-30 08:54 | disposition home or self-care (01) ==
LOC: HO.LAB 08:53
PROVIDERS: PCP Registered Nurse Community Health; Visit Provider Nurse Practitioner
DX: I10 Essential (primary) hypertension (principal)
CPT/HCPCS: 36415; 80048; 80061

== ENCOUNTER 2021-10-05 16:20 | Emergency (ER) | payer MEDICAID, SELFPAY ==
--- NOTE | ~2021-10-05 | US_ITS ---
EXAMINATION: US VENOUS ULTRASOUND WITH DOPPLER LOWER EXTREMITY, RIGHT CLINICAL INFORMATION: Fell with pain and swelling. COMPARISON: 08/13/2021. TECHNIQUE: Ultrasound of the deep veins is performed from the hip to the calf with compression sonography and color and pulse Doppler assessment. Spectral analysis with color-flow imaging is performed. FINDINGS: There is normal venous compression and respiratory variation and augmented flow. The visualized common femoral vein, superficial femoral vein, profunda femoral vein, popliteal vein, and the trifurcation region shows no evidence of deep venous thrombosis. There is no significant popliteal fossa cyst. If the patient's symptoms persist, followup ultrasound in 5 days 7 days might be of value to exclude proximal propagation from a non-visualized calf vein. US/US venous duplex LE RT IMPRESSION: No DVT demonstrated in the right lower extremity.
--- NOTE | ~2021-10-05 | XR_ITS ---
EXAMINATION: 1. RADIOGRAPHS RIGHT KNEE 2. RADIOGRAPHS RIGHT TIBIA/FIBULA CLINICAL INFORMATION: Worsening pain and swelling after fall one week ago COMPARISON: Right knee x-rays 09/29/2021 TECHNIQUE: 4 views of the right knee and 2 views of the right tibia/fibula were obtained. FINDINGS: Patient is status post right knee arthroplasty. Components are in expected orientation. There is no dislocation. No periprosthetic fracture. No suprapatellar joint effusion. No fracture of the tibia or fibula. No focal soft tissue swelling identified of the right calf. The right ankle is grossly unremarkable. Small posterior calcaneal enthesophyte. XR/XR tibia fibula RT 2V IMPRESSION: -Postsurgical changes of the right knee are unremarkable. -No fracture of the right tibia or fibula.
--- NOTE | ~2021-10-05 | XR_ITS ---
EXAMINATION: 1. RADIOGRAPHS RIGHT KNEE 2. RADIOGRAPHS RIGHT TIBIA/FIBULA CLINICAL INFORMATION: Worsening pain and swelling after fall one week ago COMPARISON: Right knee x-rays 09/29/2021 TECHNIQUE: 4 views of the right knee and 2 views of the right tibia/fibula were obtained. FINDINGS: Patient is status post right knee arthroplasty. Components are in expected orientation. There is no dislocation. No periprosthetic fracture. No suprapatellar joint effusion. No fracture of the tibia or fibula. No focal soft tissue swelling identified of the right calf. The right ankle is grossly unremarkable. Small posterior calcaneal enthesophyte. XR/XR knee RT 4V IMPRESSION: -Postsurgical changes of the right knee are unremarkable. -No fracture of the right tibia or fibula.
[2021-10-05 18:19] VITALS: BP 138/67; PULSE 78; RESP 16; TEMP 36.5; O2SAT 98; BMI 31.5
--- NOTE | 2021-10-05 20:49 | ED.LOWEXIN ---
HPI - Extremity Injury (Lower) General Chief Complaint: Extremity Injury, Lower Stated Complaint: fall Time Seen by Provider: 10/05/21 19:36 Source: patient and family Mode of arrival: ambulatory Limitations: language barrier ( Northern Irish-speaking) History of Present Illness HPI Narrative: 60-year-old female with a past medical history of hypertension presenting to the ED with complaints of persistent right knee pain after she had a mechanical fall approximately 10 days ago where she fell directly on her right knee. She reports that she was seen here had x-rayed and was negative for any fractures and sent home. Although she reports that the right knee pain continues to worsen now she has some swelling and some redness and she is concerned. She denies any fevers, chills, dizziness, headaches, neck pain /stiffness, trouble swallowing or breathing, chest pain or shortness of breath, dyspnea on exertion, orthopnea, palpitations, or any other symptoms complaints or injuries at this time. MD complaint: knee injury and fall Onset (ago): day(s) (10) Injury: Right: knee Type of Injury: blunt Severity: severe Severity scale (1-10): >10 Relieving factors: nothing Exacerbating factors: weight bearing, movement and palpation Context: fall Associated symptoms: swelling and ambulatory Other symptoms: none Related Data Home Medications Medication Instructions Recorded Confirmed metformin 500 mg tablet 1,000 mg PO BID tab 10/22/20 03/25/21 albuterol sulfate 90 mcg/actuation 2 puff INHALATION Q4-6H PRN 11/27/20 03/25/21 aerosol inhaler (Proventil HFA) atorvastatin 40 mg tablet 40 mg PO BEDTIME 11/27/20 03/25/21 baclofen 10 mg tablet 10 mg PO DAILY 11/27/20 03/25/21 fluticasone propionate 110 110 mcg INHALATION BID 11/27/20 03/25/21 mcg/actuation HFA aerosol inhaler Previous Rx's Medication Instructions Recorded hydrochlorothiazide 12.5 mg tablet 12.5 mg PO DAILY 90 Days #90 tab 10/13/20 acetaminophen 325 mg tablet 650 mg PO Q6H PRN 30 Days #240 tab 12/03/20 aspirin 325 mg tablet 325 mg PO BID 42 Days #84 tab 12/03/20 oxycodone 5 mg tablet 5 mg PO Q8H PRN #10 tab 05/24/21 amlodipine 10 mg tablet 10 mg PO DAILY #30 tab 09/14/21 cephalexin 500 mg capsule 500 mg PO BID 10 Days #20 cap 10/05/21 doxycycline monohydrate 100 mg 100 mg PO BID 10 Days #20 cap 10/05/21 capsule ibuprofen 800 mg tablet 800 mg PO Q8H PRN #14 tab 10/05/21 Allergies Allergy/AdvReac Type Severity Reaction Status Date / Time pineapple [PINEAPPLE] Allergy Unknown TONGUE Verified 09/16/21 13:17 SWELLS Review of Systems Review of Systems: Constitutional : No Weight loss, No Fever, No Chills, No Night Sweats, No Fatigue, No Malaise ENT/Mouth : No Hearing loss, No Ear Pain, No Nasal Congestion, No Sinus Pain, No Hoarseness, No sore throat, No Rhinorrhea, No Swallowing Difficulty Eyes: No Eye Pain, No Swelling, No Redness, No Foreign Body, No Discharge, No Vision Changes Cardiovascular : No Chest Pain, No SOB, No Dyspnea on Exertion, No Orthopnea, No Edema, No Palpitations Respiratory : No Cough, No Sputum, No Wheezing, No Smoke Exposure, No Dyspnea Gastrointestinal : No Nausea, No Vomiting, No Diarrhea, No Constipation, No abdominal Pain, No Hematochezia, No Melena Genitourinary : no irregular bleeding, No Dysuria, No Urinary Frequency, No Hematuria, No Urinary Incontinence, No Urgency, No Flank Pain, No Urinary Flow Changes, No Hesitancy Musculoskeletal : + joint pain/swelling/redness, No Myalgias, No Joint Swelling Skin : No Skin Lesions, No rash Neuro : No Weakness, No Numbness, No Paresthesias, No Loss of Consciousness, No Dizziness, No Headache Psych : No Anxiety/Panic, No Depression, No SI/HI/AH/VH, No Social Issues, Heme/Lymph: No Bruising, No Bleeding,No Lymphadenopathy Endocrine : No Polyuria, No Polydipsia, No Temperature Intolerance Yes all other systems are reviewed and are negative [facility] Past Medical History Attestation statement: The following information was validated with the patient. Medical History Asthma COVID-19 vaccine series completed Diabetes mellitus Elevated cholesterol Erosive osteoarthritis Full dentures Hypertension Low back pain Obesity Palpitations Primary osteoarthritis of knees, bilateral Primary osteoarthritis of right knee Surgical History H/O Spinal surgery History of History of total bilateral knee replacement Hx of colonoscopy Hx of reduction mammoplasty Hx of tonsillectomy Family History Family History Mother Hx of acute arthritis Father History of Parkinson's disease Social History Social History Household Members: Other Household Members Other:: Room mate Housing: Apartment Are you a primary career coach to a significant other at home: No 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 Blood pressure normal Heart rate normal. Respiration rate normal. Temperature normal. Oxygen saturation normal. Appearance: Alert. Oriented X3. No acute distress. Head: Normal external exam. Normocephalic. Atraumatic. Eyes: PERRLA. EOMI. Conjunctiva and sclera normal. Eyelids normal. ENT: Pharynx normal. Uvula midline. Moist mucous membranes. Neck: Normal inspection. Neck supple. FROM. CVS: Normal heart rate and rhythm. Respiratory: No respiratory distress. Painless inspiration. Skin: Skin warm and dry. Normal skin color. Normal skin turgor. No rashes/lesions/lacerations noted. Extremities: Patient with moderate tenderness all patient to the proximal aspect of the tibia /fibula right over the patient's abrasion with mild soft tissue swelling and erythema surrounding the scab borders. Otherwise no fluctuance/induration/ foreign bodies. Not consistent with septic joint. She does have full range of motion of the right knee. She does have tenderness up patient to the right calf and soft tissue swelling to the lower extremity. No pitting edema is noted. Otherwise all other Extremities exhibit normal range of motion and nontender. Neuro: Oriented X 3. No motor deficit. No sensory deficit. Reflexes normal. Normal steady gait. No focal neuro deficits noted. Vascular: + radial pulses/+ 2 distal pedal pulses/+2 dorsalis pedis b/l. Normal cap refill. No cyanosis noted to upper extremity nails and lower extremity toes nails. Course Course Course Narrative: 60-year-old female with a past medical history of hypertension presenting to the ED with complaints of persistent right knee pain after she had a mechanical fall approximately 10 days ago where she fell directly on her right knee. She reports that she was seen here had x-rayed and was negative for any fractures and sent home. Although she reports that the right knee pain continues to worsen now she has some swelling and some redness and she is concerned. She denies any fevers, chills, dizziness, headaches, neck pain /stiffness, trouble swallowing or breathing, chest pain or shortness of breath, dyspnea on exertion, orthopnea, palpitations, or any other symptoms complaints or injuries at this time. x-ray negative for any acute processes. Patient negative for DVT. This is not consistent with a septic joint due to she has full range of motion. At this time she might be starting a cellulitis infection therefore will DC home with antibiotics and symptomatic treatment instructions to return if any new or worsening symptoms to follow up with primary care provider. Patient understands agrees with this plan. MDM - Extremity Injury (Lower) Medical Records Attestation: I reviewed the patient's medical records. Imaging Data Right knee x-ray: Attestation: I personally reviewed and interpreted this imaging study as follows: Radiologist's impression: FINDINGS: Patient is status post right knee arthroplasty. Components are in expected orientation. There is no dislocation. No periprosthetic fracture. No suprapatellar joint effusion. No fracture of the tibia or fibula. No focal soft tissue swelling identified of the right calf. The right ankle is grossly unremarkable. Small posterior calcaneal enthesophyte.? XR/XR knee RT 4V IMPRESSION: -Postsurgical changes of the right knee are unremarkable. -No fracture of the right tibia or fibula.? venous duplex ultrasound of right lower extremity: Attestation: I personally reviewed and interpreted this imaging study as follows: Radiologist's impression: FINDINGS: There is normal venous compression and respiratory variation and augmented flow. The visualized common femoral vein, superficial femoral vein, profunda femoral vein, popliteal vein, and the trifurcation region shows no evidence of deep venous thrombosis. ? There is no significant popliteal fossa cyst. If the patient's symptoms persist, followup ultrasound in 5 days 7 days might be of value to exclude proximal propagation from a non-visualized calf vein. US/US venous duplex LE RT IMPRESSION: No DVT demonstrated in the right lower extremity. Discharge Plan Discharge Clinical Impression: Strain of right knee, Cellulitis of knee, right Patient Disposition: Home, Self-Care Instructions: Cellulitis (ED) Prescriptions: New doxycycline monohydrate 100 mg capsule 100 mg PO BID 10 Days Qty: 20 0RF cephalexin 500 mg capsule 500 mg PO BID 10 Days Qty: 20 0RF ibuprofen 800 mg tablet 800 mg PO Q8H PRN (Reason: pain) Qty: 14 0RF No Action hydrochlorothiazide 12.5 mg tablet 12.5 mg PO DAILY 90 Days Qty: 90 1RF oxycodone 5 mg tablet 5 mg PO Q8H PRN (Reason: pain) Qty: 10 0RF atorvastatin 40 mg Tablet 40 mg PO BEDTIME 0RF baclofen 10 mg Tablet 10 mg PO DAILY 0RF albuterol sulfate [Proventil HFA] 90 mcg/actuation Hfa Aerosol Inhaler 2 puff INHALATION Q4-6H PRN (Reason: Shortness Of Breath Or Wheezing) 0RF fluticasone propionate 110 mcg/actuation Hfa Aerosol Inhaler 110 mcg INHALATION BID 0RF acetaminophen 325 mg Tablet 650 mg PO Q6H PRN (Reason: Pain, Mild (Pain Scale 1-3)) 30 Days Qty: 240 0RF aspirin 325 mg Tablet 325 mg PO BID 42 Days Qty: 84 0RF amlodipine 10 mg tablet 10 mg PO DAILY Qty: 30 0RF metformin 500 mg tablet 1,000 mg PO BID 0RF Referrals: Rebekah Guevara NP [Primary Care Provider] - 2 days Print Language: Northern Irish
== END 2021-10-05 21:14 | disposition home or self-care (01) ==
PROVIDERS: Emergency Provider Internal Medicine; PCP Registered Nurse Community Health
DX: S86.911A Strain of unspecified muscle(s) and tendon(s) at lower leg level, right leg, initial encounter (principal); W01.0XXA Fall on same level from slipping, tripping and stumbling without subsequent striking against object, initial encounter; L03.115 Cellulitis of right lower limb; M25.561 Pain in right knee; E11.9 Type 2 diabetes mellitus without complications; I10 Essential (primary) hypertension; Y93.01 Activity, walking, marching and hiking; Y92.9 Unspecified place or not applicable; Y99.9 Unspecified external cause status
CPT/HCPCS: 73564; 73590; 93971; 99283; 99284

== ENCOUNTER 2022-03-15 16:44 | Outpatient (REF) | payer MEDICAID, SELFPAY ==
--- NOTE | ~2022-03-15 | MM_ITS ---
EXAMINATION: MM SCREENING DIGITAL BREAST TOMOSYNTHESIS, BILATERAL CLINICAL INFORMATION: Screening. Asymptomatic. Remote reduction mammoplasty, 1997. The lifetime risk of breast cancer based on the Tyrer-Cuzick Model is 5%. COMPARISON: Mammography: 02/13/2021 (new baseline). TECHNIQUE: Digital breast tomosynthesis is performed in both the craniocaudal and mediolateral oblique views along with computer-aided detection (CAD). Synthesized 2D images are generated from the tomosynthesis. FINDINGS: There are scattered areas of fibroglandular density (ACR BI-RADS breast composition Category b). Parenchymal pattern is similar to prior new baseline exam. Background stromal markings are normal. There is no developing density or interval architectural abnormality. Minor scarring related to the reduction mammoplasty is stable. No abnormal calcifications. The axilla are unremarkable. No significant changes. MM/MM tomosynthesis screening BI IMPRESSION: No mammographic evidence of malignancy. ASSESSMENT: BI-RADS 2: Benign RECOMMENDATION: Routine annual mammography screening. This patient's information was entered into a reminder system with a target due date for their next mammogram.
== END 2022-03-15 16:45 | disposition home or self-care (01) ==
LOC: HO.MAMMO 16:44
PROVIDERS: PCP Registered Nurse Community Health; Visit Provider Registered Nurse Community Health
DX: Z12.31 Encounter for screening mammogram for malignant neoplasm of breast (principal)
CPT/HCPCS: 77063; 77067

== ENCOUNTER → 2022-07-01 14:31 | Outpatient (BNVA) | payer MEDICAID, SELFPAY | PROVIDERS: PCP Nurse Practitioner Primary Care; Visit Provider Nurse Practitioner Family | DX: M19.041 Primary osteoarthritis, right hand (principal); M19.042 Primary osteoarthritis, left hand | CPT/HCPCS: 99212 ==

== ENCOUNTER 2022-07-26 13:01 | Outpatient (REF) | payer MEDICAID, SELFPAY ==
--- NOTE | ~2022-07-26 | XR_ITS ---
EXAMINATION: XR HAND, RIGHT CLINICAL INFORMATION: Right hand pain. COMPARISON: None TECHNIQUE: PA, lateral, and oblique views of the right hand. An indicator arrow points to the first digit. FINDINGS: Mild to moderate distal interphalangeal and first carpal metacarpal degenerative joint changes are seen, most pronounced in the distal interphalangeal joint of the third digit with hypertrophic changes. There is no acute fracture or dislocation. The carpal bones are normally aligned. The distal radius and ulna are intact. The soft tissues are unremarkable. XR/XR hand RT min 3V IMPRESSION: Mild to moderate degenerative joint changes most consistent with osteoarthritis. No acute abnormality.
--- NOTE | ~2022-07-26 | XR_ITS ---
EXAMINATION: XR HAND, LEFT CLINICAL INFORMATION: Left hand pain. COMPARISON: None TECHNIQUE: PA, lateral, and oblique views of the left hand. FINDINGS: Mild to moderate distal interphalangeal degenerative joint changes are seen most pronounced in the distal phalangeal joints of the third and fourth digits. There is no acute fracture or dislocation. The carpal bones are normally aligned. The distal radius and ulna are intact with the soft tissues are unremarkable. XR/XR hand LT min 3V IMPRESSION: Mild to moderate degenerative joint changes most consistent with osteoarthritis. No overt acute abnormality.
[2022-07-26 14:38] LABS: C Reactive Protein 1.77 mg/dL (< or = 0.50)
[2022-07-26 15:53] LABS: Erythrocyte Sedimentation Rate 19 MM/HR (0-20)
== END 2022-07-26 13:02 | disposition home or self-care (01) ==
LOC: HO.LAB 13:01
PROVIDERS: PCP Nurse Practitioner; Visit Provider Nurse Practitioner Family
DX: M19.042 Primary osteoarthritis, left hand (principal); M19.041 Primary osteoarthritis, right hand
CPT/HCPCS: 36415; 73130; 85652; 86140

== ENCOUNTER 2022-11-18 10:00 | Outpatient (RCR) | payer MEDICAID, SELFPAY ==
--- NOTE | 2022-09-23 12:34 | MHC.OT.EP ---
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 Pt presents with pain and stiffness in L CMC joint as well as decreased strength in B hands. Manager Economic strength is 8# on the left compared to 30# on the right. Pt. reports a 63.6% limitation per the Quick DASH assessment. 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 Pt educated in role of OT, POC, and goals. Pt would benefit from short term skilled OT for pain management, education on joint protection, and instruction on exercises to maximize functional IND. Frequency and Duration: The patient will be seen 2x/wk for 4 weeks Short Term Goals: Decrease bilateral hand pain <4/10 IND with joint protection techniques IND with orthosis wear Chief Security And Safety Officer Goals: IND with HEP Decrease maryann hand pain <2/10 Increase bilateral air conditioning installer supervisor strength by 10# each Quick DASH <30% Treatment Plan: Therapeutic Exercise Therapeutic Activity Home Exercise Program Splinting Patient Education Edema Control Ultrasound Paraffin Fluidotherapy MHP Joint Mobilization Electronically Signed By: Isadora Ashley MS OTR/L Please Sign and return to therapist. Thank you once again for your referral.
--- NOTE | 2022-12-31 14:43 | MHC.OT.DC ---
[address] [phone] F: [phone] Occupational Therapy Discharge Note Patient Name: Rhonda Garrett Mclaughlin Provider: Rebeca Self Diagnosis: Bilateral hand OA Date of Surgery: Date of Evaluation: 09/23/22 Date of Discharge: Treatments to Date: 9 Cancellations to Date: 1 No Shows to Date: 2 Discharge Status: Visit Non-compliance Discharge Summary: Con't moderate left thumb and radial wrist edema noted. 12/25 . Poor compliance with thumb protection with alot of texting, tik tok and facebook Electronically Signed By: Rima Pickard OT CHT CLT Reviewed/agree with student documentation: Therapist: Please Sign and return to therapist, thank you for your referral.
== END 2022-12-31 14:44 | disposition home or self-care (01) ==
LOC: HO.OT 10:00
PROVIDERS: PCP Internal Medicine; Visit Provider Nurse Practitioner Family
DX: M19.041 Primary osteoarthritis, right hand (principal); M19.042 Primary osteoarthritis, left hand
CPT/HCPCS: 29125; 29130; 97033; 97035; 97110; 97140; 97165; 97535; 97760

== ENCOUNTER 2023-02-14 11:37 | Outpatient (AMB) | payer MEDICAID, SELFPAY ==
--- NOTE | 2023-02-14 11:52 | A.OFFVIS_ITS ---
Intake Vital Signs 02/14/23 11:59 Height 5 ft 2 in Weight 173 lb BMI 31.6 BP 97/52 L Blood Pressure Location Lt brachial Position Sitting Pulse 66 Intake Visit Reasons: Gastroesophageal reflux disease (GERD) Intake Note: Patient follow up for CHRISTINE. Patient cc: abdominal pain with acid reflex. Denies any other GI issues. Blasting Gang Miner Required: Yes Blasting Gang Miner [place]: [facility] [place] Accompanied by: Self / Same As Patient Allergies pineapple [PINEAPPLE] Allergy (Unknown, Verified 02/14/23 11:49) TONGUE SWELLS Medication List - Last Reconciled 02/14/23 by Sue Castellon PA-C acetaminophen 650 mg (2 x 325 mg) PO Q6H PRN 30 days albuterol sulfate 90 mcg/actuation (Proventil HFA) 2 puffs inhalation Q4-6H PRN amlodipine-valsartan 10-320 mg 1 tab PO DAILY atorvastatin 40 mg PO BEDTIME betamethasone valerate 0.1% topical BID cetirizine 10 mg PO DAILY chlorthalidone 12.5 mg PO DAILY fluticasone propionate 110 mcg/actuation 110 mcg inhalation BID hydrocortisone 2.5% appl topical BID ibuprofen 800 mg PO Q8H PRN lancets (TRUEplus Lancets) As directed lidocaine 5% (Lidoderm) 0 patches topical metronidazole 0.75% topical BEDTIME naloxone 4 mg/actuation 0 sprays intranasal oxycodone 5 mg PO Q8H PRN HPI HPI Comments History of Present Illness Details A 62 y/o female with acid reflux/ waterbrash - epigastric pain comes and go She is taking papaya supplement which has not been beneficial no antibiotics, no PPI She has a chronic cough due to her asthma however 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- seem to be worse, she was given steroids She had a balloon type procedure- in [place] about 1 1/2 years ago to help her lose weight she has lost about 22 lb Appetite overall is just okay She has normal bowels no issues there No nausea, vomiting, hematemesis, hematochezia fever or chills PFSH Medical History Asthma COVID-19 vaccine series completed Diabetes mellitus Elevated cholesterol Erosive osteoarthritis Full dentures Hypertension Low back pain Obesity Palpitations Primary osteoarthritis of knees, bilateral Primary osteoarthritis of right knee Surgical History H/O Spinal surgery History of bladder surgery History of History of total bilateral knee replacement Hx of colonoscopy Hx of reduction mammoplasty Hx of tonsillectomy Family History Mother Hx of acute arthritis Father History of Parkinson's disease Social History Household Members: Other Household Members Other:: Room mate Housing: Apartment Are you a primary adult daycare coordinator to a significant other at home: No Do you presently have visiting nurse or other home services: Yes (ORIENTAL RUG STRETCHER) Alcohol intake: never Patient Tobacco Use Status: Never used Tobacco Current occupational status: disabled Current occupation: rt handed Review of Systems Const All systems reviewed & are unremarkable except as noted in HPI and below ENT Denies dysphagia, Denies hoarseness, Denies nasal congestion, Denies odynophagia and Denies throat swelling Card Denies chest pain and Denies dyspnea Resp Reports cough and Denies dyspnea GI Reports abdominal pain, Denies change in bowel habits, Denies dysphagia, Reports heartburn, Denies nausea, Denies odynophagia and Denies vomiting Aller/Immun Denies throat swelling Physical Exam Vital Signs: Last Vital Signs Pulse 66 02/14/23 11:59 BP 97/52 L 02/14/23 11:59 BMI result Body Mass Index 31.6 Const General: cooperative, healthy appearing, comfortable and no acute distress Nutritional Appearance: overweight Orientation/consciousness: patient oriented x3 Limitations: language barrier Eyes Sclerae: sclerae normal Resp Effort & Inspection: normal respiratory effort, able to speak in complete sentences and Actively coughing Auscultation: clear to auscultation bilaterally, no rhonchi and no wheezes Cardio Rate: regular rate Rhythm: regular rhythm Heart sounds: S1 normal heart sound present and S2 normal heart sound present GI Palpation (GI): Soft to palpation, Tenderness to palpation present (GI) (Mild) in the epigastrum, no guarding, not rigid and No Rebound tenderness present Auscultation: normal bowel sounds Skin General skin exam: no rashes or lesions noted Neuro General: patient oriented x3 Extrem General: Yes full ROM Psych Appearance: well kempt Mental Status: mental status grossly normal Speech and movement: Normal speech and movement present and Clear speech present Affect: normal affect Attitude: cooperative Thought process: Normal thought process present Thought content: Normal thought content present Insight: Good insight present (Psych) Results Reviewed Results Reviewed: 10/2020- mpression and Post Procedure Diagnosis: Colonoscopy Findings: Four small to medium sized polyps removed Moderate diverticulosis seen in the left colon Small hemorrhoids on retroflexed exam. Plan: Await pathology results Patient will be sent a letter with biopsy results and recommendations for follow-up colonoscopy. Repeat Colonoscopy interval based on path results - in 3 years if polyps are adenomatous and 10 years if polyps are hyperplastic. Above findings were reviewed with the patient and colon polyps and diverticulosis handouts were given in the discharge area Surgeon: Bonnie Pearson MD Name: Rhonda Fernández Age/Sex: 60/F Attending: Bonnie Pearson MD : 1960 Submitted by: Bonnie Pearson MD Copies to: CAMILO WRIGHT NP MR #: [id number] ? Status: [facility] Collected: 11/04/20 Location: [facility] Received: 11/05/20 Diagnosis A.? Colon, transverse, polypectomy:? Colonic mucosa with prominent lymphoid aggregates; no dysplasia seen. B.? Colon, sigmoid, polypectomies: - Tubular adenoma; no high grade dysplasia or carcinoma seen. - Hyperplastic mucosal polyp(s). C.? Colon, sigmoid at 35 cm, polypectomy:? Tubular adenoma; no high grade dysplasia or carcinoma seen. D.? Rectum, polypectomy:? Hyperplastic mucosal polyp. Clinical History Pre-Op Dx:? Screening Post-Op Dx: Colon polyps, diverticulosis and hemorrhoids Assessment & Plan Assessment & Plan (1) Epigastric pain: Comment: Previous GI [id number] get upper GI series- Vague, no exacerbating factor Code(s): R10.13 - Epigastric pain Plan: CBC CMP Upper GI (2) Chronic cough: Comment: Chronic cough for years Asthma,-recent prednisone May be aggravated Code(s): R05.3 - Chronic cough Plan: Follow back with PCP for as (3) Acid reflux: Comment: H pylori breath-if positive will treat Pantoprazole 20 mg daily Reflux may / asthma Code(s): K21.9 - Gastro-esophageal reflux disease without esophagitis Orders: Orders Comprehensive Met. Panel Today R10.13 - Epigastric pain Complete Blood Count Auto Diff Today R10.13 - Epigastric pain H Pylori Breath Test Today A04.8 - Other specified bacterial intestinal infections FL upper GI series Today K21.9 - Gastro-esophageal reflux disease without esophagitis, R05.3 - Chronic cough, R10.13 - Epigastric pain Medications: New pantoprazole 20 mg PO QAM 30 tabs 6RF Patient Instructions: 62-year-old female asthma presents with acid reflux/water brash, asthma chronic cough H pylori breath test obtained-results pending If positive will treat, she will begin pantoprazole 20 mg today Reviewed reflux precautions ,avoid culprits, remain upright 2-3 hours after eating especially after evening meal Follow-up PCP further eval of asthma-any worsening respiratory issues cough ED No major barriers to understanding were identified Coding Level of Care Code New Pt Level 4 (78636) Diagnoses Epigastric pain R10.13 Chronic cough R05.3 Acid reflux K21.9 Time Spent (min) 40 Comment Serena
[2023-02-14 11:59] VITALS: BP 97/52; PULSE 66; BMI 31.6
== END 2023-02-14 12:26 | disposition home or self-care (01) ==
PROVIDERS: PCP Internal Medicine; Visit Provider Physician Assistant
DX: K21.9 Gastro-esophageal reflux disease without esophagitis (principal); R10.13 Epigastric pain; R05.3 Chronic cough
CPT/HCPCS: 99214

== ENCOUNTER 2023-02-14 11:37 | Outpatient (REF) | payer MEDICAID, SELFPAY ==
[2023-02-14 12:40] LABS: MANUAL DIFF FLAG NO
[2023-02-14 14:06] LABS: Basophils Absolute Auto 0.1 X10*3/uL (0.0-0.2); Basophils Percent Auto 0.7 % (0-2); Eosinophils Absolute Auto 0.2 X10*3/uL (0.0-0.4); Eosinophils Percent Auto 1.9 % (0-4); Hematocrit 39.2 % (37.0-47.0); Hemoglobin 12.7 g/dl (12.0-16.0); Imm Gran Abs Auto 0.07 X10*3/uL (0.00-0.03); Imm Gran Pct Auto 0.7 % (0.0-0.4); Lymphocytes Absolute Auto 2.1 X10*3/uL (1.2-4.9); Lymphocytes Percent Auto 20.2 % (20-40); Mean Corpuscular HGB Conc 32.4 g/dl (31.0-35.0); Mean Corpuscular Volume 95.6 fL (80.0-98.0); Mean Platelet Volume 9.5 fL (9.4-12.3); Monocytes Absolute Auto 1.1 X10*3/uL (0.1-1.2); Monocytes Percent Auto 10.7 % (2-11); Neutrophils Absolute Auto 6.8 x10*3/uL (2.0-8.3); Neutrophils Percent Auto 65.8 % (45-73); Platelet Count 310 X10*3/uL (160-400); Red Cell Distribution Width 13.4 % (11.0-16.0); White Blood Count 10.3 X10*3/uL (4.8-10.8)
[2023-02-14 14:55] LABS: Alanine Aminotransferase 15 U/L (0-31); Alkaline Phosphatase 56 U/L (39-117); Anion Gap 17 (12-20); Aspartate Amino Transferase 20 U/L (5-31); Bilirubin Total 0.6 mg/dL (0.0-1.0); Blood Urea Nitrogen 28 mg/dL (9-16); Calcium 9.9 mg/dL (8.4-10.2); Carbon Dioxide 24 mmol/L (22-29); Chloride 108 mmol/L (96-108); Estimated Glomerular Filt Rate 39; Glucose Random 100 mg/dL (60-115); Sodium 145 mmol/L (135-145); Total Protein 7.1 g/dL (6.5-8.0)
[2023-02-16 18:37] LABS: H Pylori Breath Test Positive (Negative)
== END 2023-02-14 11:38 | disposition home or self-care (01) ==
LOC: HO.LAB 11:37
PROVIDERS: PCP Internal Medicine; Visit Provider Physician Assistant
DX: R10.13 Epigastric pain (principal); A04.8 Other specified bacterial intestinal infections; K21.9 Gastro-esophageal reflux disease without esophagitis
CPT/HCPCS: 36415; 80053; 83013; 85025; 99214

== ENCOUNTER 2023-03-22 09:35 | Outpatient (REF) | payer MEDICAID, SELFPAY ==
--- NOTE | ~2023-03-22 | FL_ITS ---
EXAMINATION: XR FLUOROSCOPY UPPER GI WITH AIR CLINICAL INFORMATION: Patient complaining of epigastric pain and reflux. Technology Teacher present as patient only spoke Tajik. COMPARISON: None TECHNIQUE: Fluoroscopic air contrast upper GI examination was performed utilizing standard techniques with thin and thick barium and effervescent granules. Numerous spot images were obtained. FINDINGS: Lateral cine images of the oropharynx and hypopharynx demonstrate normal swallow mechanism with normal epiglottic inversion and soft palate elevation. No tracheal penetration, glottic or subglottic aspiration identified. No nasopharyngeal reflux present. Hypopharyngeal structures appear normal without evidence of mass or diverticulum. 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 Dual and single contrast images of the esophagus demonstrate normal caliber, contour, and mucosal pattern. No evidence of stricture, mass, or ulcerations identified. The primary peristaltic wave was mildly attenuated, however was followed by numerous nonpropulsive tertiary contractions consistent with presbyesophagus. Small hiatus hernia identified at the GE junction, type I. Moderate GE reflux was noted during the course of the examination Dual contrast and single contrast images of the stomach demonstrated a markedly abnormal appearance. The stomach is abnormally distended/enlarged. There is a round lucent balloon in the gastric body, with estimated diameter of approximately 4 1/2 thoracic vertebral bodies. This appears to be causing a functional gastric outlet obstruction, with a phytobezoar of retained food proximal within the gastric fundus and proximal body. In addition, there is retained material within the antrum as well. There was passage of contrast into the duodenal bulb and duodenal sweep. Single and air-contrast images of the duodenal bulb demonstrate no abnormality. The duodenal sweep has a normal appearance, course, and mucosal fold appearance. The imaged proximal jejunum has a normal fold pattern and caliber. Incidental note made of moderate to severe spondylosis of the cervical spine spanning C4-T1. A right-sided sacral nerve stimulator is noted. FLUOROSCOPY TIME: 3.9 minutes Number of Spot Images: 26 DOSE AREA PRODUCT: 40.801 uGy-m2 (microgray-meter squared) FL/FL upper GI w air IMPRESSION: 1. There is a large balloon within the gastric body, which the patient states was placed in [place] as a type of bariatric device. It spans approximately 4 1/2 thoracic vertebral bodies, likely approaching 20 cm in diameter. It is causing a functional gastric outlet obstruction, with a phytobezoar occupying the upper body and fundus of the stomach which is enlarged. A small amount of contrast did progress around the balloon and into the duodenal bulb and sweep. 2. Episodic gastroesophageal reflux, and small type I hiatus hernia. 3. Fairly marked cricopharyngeal achalasia noted. The hypopharynx otherwise appear normal without pouch or diverticulum. 4. Marked presbyesophagus. 5. The duodenal bulb and sweep, as well as the proximal small bowel have a normal appearance.
== END 2023-03-22 09:36 | disposition home or self-care (01) ==
LOC: HO.XRAY 09:35
PROVIDERS: PCP Internal Medicine; Visit Provider Physician Assistant
DX: R10.13 Epigastric pain (principal); R05.3 Chronic cough; K21.9 Gastro-esophageal reflux disease without esophagitis
CPT/HCPCS: 74246

== ENCOUNTER → 2023-03-22 09:37 | Outpatient (BNV) | payer MEDICAID, SELFPAY | PROVIDERS: PCP Internal Medicine; Visit Provider Radiology Diagnostic Radiology | DX: R10.13 Epigastric pain (principal); K21.9 Gastro-esophageal reflux disease without esophagitis | CPT/HCPCS: 74246 ==

== ENCOUNTER 2023-03-30 09:24 | Outpatient (AMB) | payer MEDICAID, SELFPAY ==
--- NOTE | 2023-03-30 09:32 | MHC.OFFVIS ---
Intake Vital Signs 03/30/23 09:33 Height 5 ft 2 in Weight 166 lb BMI 30.4 BP 137/75 Blood Pressure Location Lt brachial Position Sitting Pulse 72 Intake Visit Reasons: f/u GI series Intake Note: Patient follow up for Upper GI series results. Patient cc: abdominal pain, and denies any other GI issues. Nutrition Director Required: Yes Accompanied by: Self / Same As Patient Allergies pineapple [PINEAPPLE] Allergy (Unknown, Verified 02/14/23 11:49) TONGUE SWELLS HPI HPI Comments History of Present Illness Details A 62 y/o female follows up with epigastric pain and acid reflux. She had bariatric device/ balloon placed 03/2022-in [place]-follows up after recent upper GI series. Had reviewed report with Dr. Osorio and please referral to be seen in Bariatric surgery- She presents today she has intermittent RUQ / LUQ intermittently. She has been to have following full liquid diet, she had been advised by bariatric surgeon in [place]- She is scheduled to return to [place] on 04/09/23 She has had no vomiting, fever chills Bowels are normal [facility] Medical History Asthma COVID-19 vaccine series completed Diabetes mellitus Elevated cholesterol Erosive osteoarthritis Full dentures Hypertension Low back pain Obesity Palpitations Primary osteoarthritis of knees, bilateral Primary osteoarthritis of right knee Surgical History History of bladder surgery History of total bilateral knee replacement Hx of colonoscopy Hx of reduction mammoplasty Hx of tonsillectomy History of H/O Spinal surgery Family History Mother Hx of acute arthritis Father History of Parkinson's disease Social History Household Members: Other Household Members Other:: Room mate Housing: Apartment Are you a primary child care counselor to a significant other at home: No Do you presently have visiting nurse or other home services: Yes (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 TESTING 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) Alcohol intake: never Patient Tobacco Use Status: Never used Tobacco Current occupational status: disabled Current occupation: rt handed Review of Systems Const All systems reviewed & are unremarkable except as noted in HPI and below Card Denies chest pain and Denies dyspnea Resp Denies dyspnea GI Reports abdominal pain, Denies change in bowel habits, Reports heartburn, Reports nausea and Denies vomiting Physical Exam Vital Signs: Last Vital Signs Pulse 72 03/30/23 09:33 BP 137/75 03/30/23 09:33 BMI result Body Mass Index 30.4 Const General: comfortable and no acute distress Orientation/consciousness: patient oriented x3 Limitations: language barrier Eyes Sclerae: sclerae normal Resp Effort & Inspection: normal respiratory effort and able to speak in complete sentences Auscultation: clear to auscultation bilaterally, no rales, no rhonchi and no wheezes GI Palpation (GI): Soft to palpation, Tenderness to palpation present (GI) (mild) in the epigastrum and no guarding Auscultation: normal bowel sounds Neuro General: patient oriented x3 Extrem General: Yes full ROM Psych Appearance: well kempt Mental Status: mental status grossly normal Speech and movement: Normal speech and movement present Affect: normal affect Attitude: cooperative Thought process: Normal thought process present Thought content: Normal thought content present Results Reviewed Results Reviewed: FL/FL upper GI w air IMPRESSION: 1. There is a large balloon within the gastric body, which the patient states was placed in [place] as a type of bariatric device. It spans approximately 4 1/2 thoracic vertebral bodies, likely approaching 20 cm in diameter. It is causing a functional gastric outlet obstruction, with a phytobezoar occupying the upper body and fundus of the stomach which is enlarged. A small amount of contrast did progress around the balloon and into the duodenal bulb and sweep. 2. Episodic gastroesophageal reflux, and small type I hiatus hernia. 3. Fairly marked cricopharyngeal achalasia noted. The hypopharynx otherwise appear normal without pouch or diverticulum. 4. Marked presbyesophagus. 5. The duodenal bulb and sweep, as well as the proximal small bowel have a normal appearance. Assessment & Plan Assessment & Plan (1) Complications of bariatric procedures: Comment: Reviewed with patient-prefers to return to [place] where balloon has been originally placed. She is aware a referral has been sent to Dr. Mays Discussed with - large balloon within the gastric body, which the patient states was placed in [place] as a type of bariatric device. It spans approximately 4 1/2 thoracic vertebral bodies, likely approaching 20 cm in diameter. It is causing a functional gastric outlet obstruction, with a phytobezoar occupying the upper body and fundus of the stomach which is enlarged. A small amount of contrast did progress around the balloon and into the duodenal bulb and sweep. Code(s): K95.89 - Other complications of other bariatric procedure Plan: Reviewed with patient- Patient Instructions: 62-year-old female 1 year bariatric device placed in [place]-with epigastric pain acid reflux Reviewed upper GI series discussed options-however prefers to return to [place]- for care She will Continue liquid diet-no solid food Reinforced importance of abdominal pain nausea vomiting go to ED Coding Level of Care Code Est Pt Level 3 (10540) Diagnoses Complications of bariatric procedures K95.89 Time Spent (min) 30 Comment development writer
[2023-03-30 09:33] VITALS: BP 137/75; PULSE 72; BMI 30.4
== END 2023-03-30 09:58 | disposition home or self-care (01) ==
PROVIDERS: PCP Internal Medicine; Visit Provider Physician Assistant
DX: K95.89 Other complications of other bariatric procedure (principal)
CPT/HCPCS: 99213

== ENCOUNTER → 2023-03-30 09:24 | Outpatient (BNVA) | payer MEDICAID, SELFPAY | PROVIDERS: PCP Internal Medicine; Visit Provider Physician Assistant | DX: K95.89 Other complications of other bariatric procedure (principal) | CPT/HCPCS: 99212 ==

== ENCOUNTER 2023-05-04 09:54 | Outpatient (REF) | payer MEDICAID, SELFPAY ==
[2023-05-04 10:37] LABS: MANUAL DIFF FLAG NO
[2023-05-04 10:58] LABS: Basophils Absolute Auto 0.1 X10*3/uL (0.0-0.2); Basophils Percent Auto 0.8 % (0-2); Eosinophils Absolute Auto 0.2 X10*3/uL (0.0-0.4); Eosinophils Percent Auto 3.6 % (0-4); Hematocrit 37.7 % (37.0-47.0); Hemoglobin 12.4 g/dl (12.0-16.0); Imm Gran Abs Auto 0.03 X10*3/uL (0.00-0.03); Imm Gran Pct Auto 0.5 % (0.0-0.4); Lymphocytes Absolute Auto 1.9 X10*3/uL (1.2-4.9); Lymphocytes Percent Auto 29.3 % (20-40); Mean Corpuscular HGB Conc 32.9 g/dl (31.0-35.0); Mean Corpuscular Hemoglobin 31.2 pg (27.0-33.0); Mean Corpuscular Volume 94.7 fL (80.0-98.0); Mean Platelet Volume 9.2 fL (9.4-12.3); Monocytes Absolute Auto 0.6 X10*3/uL (0.1-1.2); Monocytes Percent Auto 9.4 % (2-11); Neutrophils Absolute Auto 3.7 x10*3/uL (2.0-8.3); Neutrophils Percent Auto 56.4 % (45-73); Platelet Count 318 X10*3/uL (160-400); Red Blood Count 3.98 X10*6/uL (4.20-5.50); Red Cell Distribution Width 13.7 % (11.0-16.0); White Blood Count 6.5 X10*3/uL (4.8-10.8)
== END 2023-05-04 09:55 | disposition home or self-care (01) ==
LOC: HO.LAB 09:54
PROVIDERS: PCP Registered Nurse; Visit Provider Internal Medicine Pulmonary Disease
DX: R06.00 Dyspnea, unspecified (principal); J45.909 Unspecified asthma, uncomplicated; Z91.09 Other allergy status, other than to drugs and biological substances
CPT/HCPCS: 36415; 82785; 85025; 86003

== ENCOUNTER 2023-05-04 09:54 | Outpatient (AMB) | payer MEDICAID, SELFPAY ==
[2023-05-04 09:56] VITALS: BP 109/62; PULSE 75; O2SAT 97; BMI 31.2
--- NOTE | 2023-05-04 09:56 | MHC.OFFVIS ---
Intake Vital Signs 05/04/23 09:56 Height 5 ft 2 in Weight 170 lb 13.732 oz BMI 31.2 BP 109/62 Blood Pressure Location Lt brachial Position Sitting Pulse 75 Pulse Source Doppler Pulse Oximetry (%) 97 Oxygen Delivery Method Room Air Intake Visit Reasons: Asthma Physician Assistant Surgery Required: Yes Physician Assistant Surgery Name: Jayne Berlin Monzon Allergies pineapple [PINEAPPLE] Allergy (Unknown, Verified 05/04/23 09:58) TONGUE SWELLS HPI Asthma HPI Details 62-year-old lady, nonsmoker, with underlying history of asthma since 5 years of age, previously managed on Flovent and albuterol MDI. With no recent pulmonary function testing or allergy testing referred for evaluation of her pulmonary concerns. Patient states that she has been getting paroxysms of dry cough poorly relieved with albuterol MDI and only relieved with a brief prednisone courses. She denies family history of lung disease. Patient does not have any pets. She denies exposure to industrial dusts. [facility] Medical History (Updated 05/04/23 @ 10:24 by Brayan Jensen MD) Elevated cholesterol Full dentures Low back pain COVID-19 vaccine series completed Asthma Hypertension Palpitations Primary osteoarthritis of right knee Diabetes mellitus Obesity Erosive osteoarthritis Primary osteoarthritis of knees, bilateral Surgical History History of bladder surgery History of total bilateral knee replacement Hx of colonoscopy Hx of reduction mammoplasty Hx of tonsillectomy History of H/O Spinal surgery Family History Mother Hx of acute arthritis Father History of Parkinson's disease Social History Household Members: Other Household Members Other:: Room mate Housing: Apartment Are you a primary career representative to a significant other at home: No Do you presently have 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) Alcohol intake: never Patient Tobacco Use Status: Never used Tobacco Current occupational status: disabled Current occupation: rt handed Review of Systems Const Denies daytime sleepiness, Denies excessive sweating, Denies fatigue, Denies fever(s), Denies lethargy, Denies malaise, Denies night sweats, Denies snoring and Denies weight loss Eyes Denies blurry vision and Denies itchy eyes ENT Denies nasal congestion, Denies post nasal drip, Denies sinus pain, Denies sinus pressure and Denies other ( Thrush) Card Denies chest pain, Denies pedal edema, Denies dyspnea, Denies orthopnea and Denies paroxysmal nocturnal dyspnea Resp Reports cough, Denies hemoptysis, Denies excessive phlegm production, Denies dyspnea, Denies snoring and Denies wheezing GI Denies abdominal pain and Denies heartburn Musc Denies myalgias, Denies arthralgias and Denies joint swelling Skin/Breast Denies rash Neuro Denies memory loss and Denies seizure-like activity Psych Denies abnormal sleep pattern, Denies anxiety and Denies memory loss Endo Denies excessive sweating, Denies fatigue and Denies heat intolerance Dwayne/Lymph Denies easy bruising Aller/Immun Denies itchy eyes, Denies seasonal rhinorrhea and Denies wheezing Physical Exam Vital Signs: Last Vital Signs Pulse 75 05/04/23 09:56 BP 109/62 05/04/23 09:56 Pulse Ox 97 05/04/23 09:56 Oxygen Delivery Method Room Air 05/04/23 09:56 BMI result Body Mass Index 31.2 Const General: no acute distress and alert Nutritional Appearance: not obese Orientation/consciousness: Other orientation findings ( oriented) HEENT Head: Yes atraumatic Eyes General: appearance normal, both eyes and all related structures Sclerae: sclerae normal EOM: EOMs intact bilaterally Neck Neck: Yes supple Lymphatic: no lymphadenopathy noted Resp Effort & Inspection: normal respiratory effort and no use of accessory muscles Auscultation: clear to auscultation bilaterally Cardio Rate: regular rate Rhythm: regular rhythm Heart sounds: no gallops, no murmurs and no rubs Skin General skin exam: other ( warm) Extrem General: No clubbing, No cyanosis and No edema Assessment & Plan Assessment & Plan (1) Environmental allergies: Code(s): Z91.09 - Other allergy status, other than to drugs and biological substances Plan: Will obtain IgE level, CBC with differential, and RAST panel for further evaluation. (2) Asthma: Code(s): J45.909 - Unspecified asthma, uncomplicated Plan: Likely cough variant asthma suboptimally controlled on current regimen of Flovent albuterol MDI. Will change Flovent to Symbicort. Will obtain full PFT. Orders: Orders PFT pulmonary function test Today R06.00 - Dyspnea, unspecified Complete Blood Count Auto Diff Today R06.00 - Dyspnea, unspecified Rast Allergen Today R06.00 - Dyspnea, unspecified Medications: New budesonide-formoterol 160-4.5 mcg/actuation (Symbicort) 2 puffs inhalation BID 30 days 1 ea 6RF Coding Level of Care Code New Pt Level 4 (78350) Diagnoses Environmental allergies Z91.09 Asthma J45.909
== END 2023-05-04 10:20 | disposition home or self-care (01) ==
PROVIDERS: PCP Internal Medicine; Referring Provider Registered Nurse; Visit Provider Internal Medicine Pulmonary Disease
DX: Z91.09 Other allergy status, other than to drugs and biological substances (principal); J45.909 Unspecified asthma, uncomplicated
CPT/HCPCS: 99204

== ENCOUNTER 2023-05-25 09:56 | Outpatient (AMB) | payer MEDICAID, SELFPAY ==
--- NOTE | 2023-05-25 10:04 | A.OFFVIS_ITS ---
Intake Vital Signs 05/25/23 10:06 Height 5 ft 2 in Weight 165 lb BMI 30.2 BP 116/66 Blood Pressure Location Lt brachial Position Sitting Pulse 76 Intake Visit Reasons: 8 week f/u Intake Note: Patient follow up Patient cc: rectal itching, she think is hemorrhoids and denies any other GI issues. 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 Accompanied by: Self / Same As Patient Allergies pineapple [PINEAPPLE] Allergy (Unknown, Verified 05/25/23 10:06) TONGUE SWELLS Medication List - Last Reconciled 05/25/23 by Sue Castellon PA-C acetaminophen 650 mg (2 x 325 mg) PO Q6H PRN 30 days albuterol sulfate 90 mcg/actuation (Proventil HFA) 2 puffs inhalation Q4-6H PRN amlodipine-valsartan 10-320 mg 1 tab PO DAILY atorvastatin 40 mg PO BEDTIME betamethasone valerate 0.1% topical BID budesonide-formoterol 160-4.5 mcg/actuation (Symbicort) 2 puffs inhalation BID 30 days cetirizine 10 mg PO DAILY chlorthalidone 12.5 mg PO DAILY hydrocortisone 2.5% appl topical BID ibuprofen 800 mg PO Q8H PRN lancets (TRUEplus Lancets) As directed lidocaine 5% (Lidoderm) 0 patches topical metronidazole 0.75% topical BEDTIME naloxone 4 mg/actuation 0 sprays intranasal oxycodone 5 mg PO Q8H PRN HPI HPI Comments History of Present Illness Details A 62 y/o female seen 8 weeks ago- run with acid reflux, gastric balloon placed well in [place]-she had already had appointment to have removed. Upper GI series was performed-was reviewed here is a large balloon within the gastric body, states was placed in [place] as a type of bariatric device. It spans approximately 4 1/2 thoracic vertebral bodies, likely approaching 20 cm in diameter. It is causing a functional gastric outlet obstruction, Today she follows up returns from [place] completely asymptomatic she has a good appetite, she has had no further acid reflux no abdominal pain no GI complaints at all. She has no nausea, vomiting, hematemesis, hematochezia, abdominal pain, dysphagia, fever or chills [facility] Medical History (Updated 05/25/23 @ 11:53 by Sue B Castellon, PA-C) Elevated cholesterol Full dentures Low back pain COVID-19 vaccine series completed Asthma Hypertension Palpitations Primary osteoarthritis of right knee Diabetes mellitus Obesity Erosive osteoarthritis Primary osteoarthritis of knees, bilateral Surgical History History of bladder surgery History of total bilateral knee replacement Hx of colonoscopy Hx of reduction mammoplasty Hx of tonsillectomy History of H/O Spinal surgery Family History Mother Hx of acute arthritis Father History of Parkinson's disease Social History Household Members: Other Household Members Other:: Room mate Housing: Apartment Are you a primary multi care technician to a significant other at home: No Do you presently have 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) Alcohol intake: never Patient Tobacco Use Status: Never used Tobacco Current occupational status: disabled Current occupation: rt handed Review of Systems Const All systems reviewed & are unremarkable except as noted in HPI and below ENT Denies dysphagia Card Denies chest pain and Denies dyspnea Resp Denies dyspnea GI Denies abdominal pain, Denies bloating, Denies dysphagia, Denies early satiety, Denies dyspepsia, Denies heartburn, Denies nausea and Denies vomiting Physical Exam Vital Signs: Last Vital Signs Pulse 76 05/25/23 10:06 BP 116/66 05/25/23 10:06 BMI result Body Mass Index 30.2 Const General: cooperative, healthy appearing, comfortable, no acute distress and well developed Nutritional Appearance: obese Limitations: language barrier Eyes Sclerae: sclerae normal Resp Effort & Inspection: normal respiratory effort and able to speak in complete sentences Extrem General: Yes full ROM Psych Appearance: grossly normal and well kempt Mental Status: mental status grossly normal Speech and movement: Normal speech and movement present and Clear speech present Affect: normal affect Attitude: cooperative Thought process: Normal thought process present Thought content: Normal thought content present and Obsession(s) present Insight: Good insight present (Psych) Judgement: Good judgement present (Psych) Results Reviewed Results Reviewed: BMI result Body Mass Index 30.4 Const Results Reviewed Results Reviewed: FL/FL upper GI w air IMPRESSION: 1. There is a large balloon within the gastric body, which the patient states was placed in [place] as a type of bariatric device. It spans approximately 4 1/2 thoracic vertebral bodies, likely approaching 20 cm in diameter. It is causing a functional gastric outlet obstruction, with a phytobezoar occupying the upper body and fundus of the stomach which is enlarged. A small amount of contrast did progress around the balloon and into the duodenal bulb and sweep. 2. Episodic gastroesophageal reflux, and small type I hiatus hernia. 3. Fairly marked cricopharyngeal achalasia noted. The hypopharynx otherwise appear normal without pouch or diverticulum. 4. Marked presbyesophagus. 5. The duodenal bulb and sweep, as well as the proximal small bowel have a normal appearance. Assessment & Plan Assessment & Plan (1) Acid reflux: Comment: Completely resolved Code(s): K21.9 - Gastro-esophageal reflux disease without esophagitis Plan: Avoid culprits (2) Adenomatous colon polyp: Comment: Repeat asymptomatic colonoscopy- 3 years-2023 Code(s): D12.6 - Benign neoplasm of colon, unspecified Plan: See back after 1st year to discuss colonoscopy (3) Hemorrhoids: Comment: High-fiber diet, avoid straining Code(s): K64.9 - Unspecified hemorrhoids (4) Gastric outlet obstruction: Comment: Results Reviewed: FL/FL upper GI w air IMPRESSION: 1. There is a large balloon within the gastric body, which the patient states was placed in [place] as a type of bariatric device. It spans approximately 4 1/2 thoracic vertebral bodies, likely approaching 20 cm in diameter. It is causing a functional gastric outlet obstruction, with a phytobezoar occupying the upper body and fundus of the stomach which is enlarged. A small amount of contrast did progress around the balloon and into the duodenal bulb and sweep. 2. Episodic gastroesophageal reflux, and small type I hiatus hernia. 3. Fairly marked cricopharyngeal achalasia noted. The hypopharynx otherwise appear normal without pouch or diverticulum. 4. Marked presbyesophagus. 5. The duodenal bulb and sweep, as well as the proximal small bowel have a normal appearance. 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
[2023-05-25 10:06] VITALS: BP 116/66; PULSE 76; BMI 30.2
== END 2023-05-25 10:30 | disposition home or self-care (01) ==
PROVIDERS: PCP Internal Medicine; Visit Provider Physician Assistant
DX: K21.9 Gastro-esophageal reflux disease without esophagitis (principal); D12.6 Benign neoplasm of colon, unspecified; K64.9 Unspecified hemorrhoids; K31.1 Adult hypertrophic pyloric stenosis
CPT/HCPCS: 99213

== ENCOUNTER → 2023-05-25 09:56 | Outpatient (BNVA) | payer MEDICAID, SELFPAY | PROVIDERS: PCP Internal Medicine; Visit Provider Physician Assistant | DX: K31.1 Adult hypertrophic pyloric stenosis (principal); K64.9 Unspecified hemorrhoids; K21.9 Gastro-esophageal reflux disease without esophagitis; D12.6 Benign neoplasm of colon, unspecified | CPT/HCPCS: 99212 ==

== ENCOUNTER 2023-08-17 11:23 | Outpatient (REF) | payer MEDICAID, SELFPAY ==
[2023-08-17 13:14] LABS: MANUAL DIFF FLAG NO
[2023-08-17 13:18] LABS: Basophils Percent Auto 0.5 % (0-2); Eosinophils Absolute Auto 0.1 X10*3/uL (0.0-0.4); Eosinophils Percent Auto 1.5 % (0-4); Hematocrit 42.4 % (37.0-47.0); Hemoglobin 14.5 g/dl (12.0-16.0); Imm Gran Abs Auto 0.03 X10*3/uL (0.00-0.03); Imm Gran Pct Auto 0.4 % (0.0-0.4); Lymphocytes Absolute Auto 1.8 X10*3/uL (1.2-4.9); Lymphocytes Percent Auto 21.2 % (20-40); Mean Corpuscular HGB Conc 34.2 g/dl (31.0-35.0); Mean Corpuscular Hemoglobin 32.5 pg (27.0-33.0); Mean Corpuscular Volume 95.1 fL (80.0-98.0); Mean Platelet Volume 9.7 fL (9.4-12.3); Monocytes Absolute Auto 0.9 X10*3/uL (0.1-1.2); Neutrophils Absolute Auto 5.7 x10*3/uL (2.0-8.3); Neutrophils Percent Auto 66.4 % (45-73); Platelet Count 306 X10*3/uL (160-400); Red Blood Count 4.46 X10*6/uL (4.20-5.50); Red Cell Distribution Width 13.4 % (11.0-16.0); White Blood Count 8.5 X10*3/uL (4.8-10.8)
[2023-08-17 13:39] LABS: Alanine Aminotransferase 17 U/L (0-31); Albumin Level 4.2 g/dL (3.5-5.0); Alkaline Phosphatase 78 U/L (39-117); Anion Gap 14 (12-20); Aspartate Amino Transferase 23 U/L (5-31); Bilirubin Total 0.6 mg/dL (0.0-1.0); Blood Urea Nitrogen 25 mg/dL (9-16); Calcium 9.7 mg/dL (8.4-10.2); Carbon Dioxide 26 mmol/L (22-29); Chloride 104 mmol/L (96-108); Cholesterol 229 mg/dL (<200); Estimated Glomerular Filt Rate 58; Glucose Random 93 mg/dL (60-115); HDL Cholesterol 78 mg/dL (>40); LDL Cholesterol Calculated 131 mg/dL (<100); Sodium 140 mmol/L (135-145); Total Protein 7.6 g/dL (6.5-8.0); Triglycerides 100 mg/dL (<150)
[2023-08-17 13:57] LABS: Free T4 (Free Thyroxine) 0.75 ng/dL (0.71-1.85); Thyroid Stimulating Hormone 1.35 uIU/mL (0.32-4.0)
== END 2023-08-17 11:24 | disposition home or self-care (01) ==
LOC: HO.HHCL 11:23
PROVIDERS: Visit Provider Nurse Practitioner Family
DX: F34.1 Dysthymic disorder (principal); F41.1 Generalized anxiety disorder
CPT/HCPCS: 36415; 80053; 80061; 84439; 84443; 85025

== ENCOUNTER 2023-11-01 15:29 | Outpatient (REF) | payer MEDICAID, SELFPAY ==
[2023-11-01 16:03] LABS: MANUAL DIFF FLAG NO
[2023-11-01 16:19] LABS: Basophils Absolute Auto 0.1 X10*3/uL (0.0-0.2); Basophils Percent Auto 0.5 % (0-2); Eosinophils Absolute Auto 0.3 X10*3/uL (0.0-0.4); Eosinophils Percent Auto 3.4 % (0-4); Hematocrit 37.5 % (37.0-47.0); Hemoglobin 12.8 g/dl (12.0-16.0); Imm Gran Abs Auto 0.05 X10*3/uL (0.00-0.03); Imm Gran Pct Auto 0.5 % (0.0-0.4); Lymphocytes Absolute Auto 2.5 X10*3/uL (1.2-4.9); Lymphocytes Percent Auto 26.1 % (20-40); Mean Corpuscular HGB Conc 34.1 g/dl (31.0-35.0); Mean Corpuscular Hemoglobin 32.1 pg (27.0-33.0); Mean Platelet Volume 9.1 fL (9.4-12.3); Monocytes Absolute Auto 0.9 X10*3/uL (0.1-1.2); Monocytes Percent Auto 9.9 % (2-11); Neutrophils Absolute Auto 5.6 x10*3/uL (2.0-8.3); Neutrophils Percent Auto 59.6 % (45-73); Platelet Count 312 X10*3/uL (160-400); Red Blood Count 3.99 X10*6/uL (4.20-5.50); Red Cell Distribution Width 12.7 % (11.0-16.0); White Blood Count 9.4 X10*3/uL (4.8-10.8)
[2023-11-01 17:03] LABS: Alanine Aminotransferase 16 U/L (0-31); Albumin Level 3.9 g/dL (3.5-5.0); Alkaline Phosphatase 76 U/L (39-117); Anion Gap 11 (12-20); Aspartate Amino Transferase 20 U/L (5-31); Bilirubin Total 0.4 mg/dL (0.0-1.0); Blood Urea Nitrogen 28 mg/dL (9-16); Calcium 9.5 mg/dL (8.4-10.2); Carbon Dioxide 27 mmol/L (22-29); Chloride 106 mmol/L (96-108); Estimated Glomerular Filt Rate 54; Glucose Random 98 mg/dL (60-115); Potassium 3.9 mmol/L (3.3-5.1); Sodium 140 mmol/L (135-145); Total Protein 7.4 g/dL (6.5-8.0)
== END 2023-11-01 15:30 | disposition home or self-care (01) ==
LOC: HO.HHCL 15:29
PROVIDERS: Visit Provider Family Medicine
DX: R10.11 Right upper quadrant pain (principal); J32.9 Chronic sinusitis, unspecified
CPT/HCPCS: 36415; 80053; 85025

== ENCOUNTER 2023-12-05 08:59 | Outpatient (AMB) | payer MEDICAID, SELFPAY ==
[2023-12-05 09:02] VITALS: BP 127/61; PULSE 65; BMI 34.7
--- NOTE | 2023-12-05 09:02 | A.OFFVIS_ITS ---
Vital Signs 12/05/23 09:02 Height 5 ft 2 in Weight 190 lb BMI 34.7 BP 127/61 Blood Pressure Location Lt brachial Position Sitting Pulse 65 Intake Visit Reasons: 3 Month Follow up Intake Note: Patient presents in office today in 3 months follow up of GERD. CC: Patient states that she had a gallbladder US done in [facility] about 2 months ago and she was told that it showed fatty liver. She c/o RUQ abdominal pain, worst if she is seating for long periods of times. Patient also c/o feeling that when she swallows something states stuck in her esophagus and she has to cough. 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 Accompanied by: Self / Same As Patient Allergies No Known Drug Allergies Allergy (Severe, Verified 12/05/23 09:08) Unknown pineapple [PINEAPPLE] Allergy (Unknown, Verified 12/05/23 09:03) TONGUE SWELLS Medication List - Last Reconciled 12/05/23 by Sue Castellon PA-C acetaminophen 650 mg (2 x 325 mg) PO Q6H PRN 30 days albuterol sulfate 90 mcg/actuation (Proventil HFA) 2 puffs inhalation Q4-6H PRN amlodipine-valsartan 10-320 mg 1 tab PO DAILY atorvastatin 40 mg PO BEDTIME betamethasone valerate 0.1% topical BID budesonide-formoterol 160-4.5 mcg/actuation (Symbicort) 2 puffs inhalation BID 30 days cetirizine 10 mg PO DAILY chlorthalidone 12.5 mg PO DAILY hydrocortisone 2.5% (Proctosol HC) 1 appl RI BEDTIME PRN 30 days lancets (TRUEplus Lancets) As directed lidocaine 5% (Lidoderm) 1 patch topical DAILY metronidazole 0.75% topical BEDTIME naloxone 4 mg/actuation 0 sprays intranasal oxycodone 5 mg PO Q8H PRN HPI Comments Details: Seen in06/09- after complications after bariatric surgery- w/ balloon we did UGI Upper GI series was performed-was reviewed here is a large balloon within the gastric body, states was placed in [place] as a type of bariatric device. It spans approximately 4 1/2 thoracic vertebral bodies, likely approaching 20 cm in diameter. It is causing a functional gastric outlet obstruction, Went to [place]-had balloon removed- continues with intermittent dysphagia- heartburn Due for colonoscopy She was seen at [facility] ED-fatty liver She also says she is having testing for lungs- chronic cough/ wheeze,SOB, dizziness- scheduled for ?? procedure in December- no details She has shortness of breath worsens with exertion intermittent dizziness, and wheezing-currently no distress No nausea, vomiting, hematemesis, hematochezia, abdominal pain, fever or chills PFSH Medical History Elevated cholesterol Full dentures Low back pain COVID-19 vaccine series completed Asthma Hypertension Palpitations Primary osteoarthritis of right knee Diabetes mellitus Obesity Erosive osteoarthritis Primary osteoarthritis of knees, bilateral Surgical History History of bladder surgery History of total bilateral knee replacement Hx of colonoscopy Hx of reduction mammoplasty Hx of tonsillectomy History of H/O Spinal surgery Family History Mother Hx of acute arthritis Father History of Parkinson's disease Social History Household Members: Other Household Members Other:: Room mate Housing: Apartment Are you a primary manager managed care to a significant other at home: No Do you presently have 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) Alcohol intake: never Patient Tobacco Use Status: Never used Tobacco Current occupational status: disabled Current occupation: rt handed Review of Systems Const All systems reviewed & are unremarkable except as noted in HPI and below ENT Denies dysphagia and Denies odynophagia Card Denies chest pain, Denies syncope, Denies rapid heart rate, Reports dyspnea and Reports dyspnea on exertion Resp Reports dyspnea and Reports dyspnea on exertion GI Denies abdominal pain, Denies change in stool character, Denies dysphagia, Denies heartburn, Denies nausea, Denies odynophagia and Denies vomiting Neuro Denies syncope Psych Reports anxiety Physical Exam Vital Signs: Last Vital Signs Pulse 65 12/05/23 09:02 BP 127/61 12/05/23 09:02 BMI result Body Mass Index 34.7 Const General: cooperative, healthy appearing and comfortable Orientation/consciousness: patient oriented x3 Limitations: language barrier Eyes Sclerae: sclerae normal Resp Effort & Inspection: normal respiratory effort, able to speak in complete sentences and Actively coughing Auscultation: no rales, no rhonchi and wheezes Cardio Rate: regular rate Rhythm: regular rhythm Heart sounds: S1 normal heart sound present and S2 normal heart sound present Neuro General: patient oriented x3 Extrem General: Yes full ROM Psych Appearance: grossly normal and well kempt Mental Status: mental status grossly normal Speech and movement: Normal speech and movement present and Clear speech present Affect: normal affect Attitude: cooperative Thought process: Normal thought process present Thought content: Normal thought content present Insight: Good insight present (Psych) Judgement: Good judgement present (Psych) Results Reviewed Results Reviewed: Name: Rhonda Fernández Age/Sex: 60/F Attending: Bonnie Pearson MD : 1960 Submitted by: Bonnie Pearson MD Copies to: CAMILO WRIGHT NP MR #: [id number] Status: [facility] Collected: 11/04/20 Location: [facility] Received: 11/05/20 Diagnosis A. Colon, transverse, polypectomy: Colonic mucosa with prominent lymphoid aggregates; no dysplasia seen. B. Colon, sigmoid, polypectomies: - Tubular adenoma; no high grade dysplasia or carcinoma seen. - Hyperplastic mucosal polyp(s). C. Colon, sigmoid at 35 cm, polypectomy: Tubular adenoma; no high grade dysp lasia or carcinoma seen. D. Rectum, polypectomy: Hyperplastic mucosal polyp. Clinical History Pre-Op Dx: Screening Post-Op Dx: Colon polyps, diverticulosis and hemorrhoids Microscopic Description A-D. Microscopic sections reviewed. Material Received A: Transverse colon polyp B: Sigmoid polyps C: Sigmoid polyp at 35 cm D: Rectal polyp Gross Description Received in four parts. Part A: Received in formalin labeled Transverse colon polyp are two glistening, semitranslucent, soft, beach, irregular tissue fragments, ranging from 0.15 to 0.25 cm. in greatest dimension, which are submitted in toto in a single cassette labeled A. Part B: Received in formalin labeled Sigmoid polyps are three glistening, semitranslucent, soft, beach and beach-pink, irregular and papular tissue fragments, ranging from 0.2 to 0.9 cm. in greatest dimension, the largest of which is a 0.3 cm. in greatest dimension, beach-pink papule attached to a 0.6 cm. in length pedicle of beach mucosa. The larger fragment is sectioned and the specimen is entirely submitted in a single cassette labeled B. Patient: Gerry Page 1 of 2 Assessment & Plan Assessment & Plan (1) Gastric outlet obstruction: Comment: 03/2023 Results Reviewed: FL/FL upper GI w air IMPRESSION: 1. There is a large balloon within the gastric body, which the patient states was placed in [place] as a type of bariatric device. It spans approximately 4 1/2 thoracic vertebral bodies, likely approaching 20 cm in diameter. It is causing a functional gastric outlet obstruction, with a phytobezoar occupying the upper body and fundus of the stomach which is enlarged. A small amount of contrast did progress around the balloon and into the duodenal bulb and sweep. 2. Episodic gastroesophageal reflux, and small type I hiatus hernia. 3. Fairly marked cricopharyngeal achalasia noted. The hypopharynx otherwise appear normal without pouch or diverticulum. 4. Marked presbyesophagus. 5. The duodenal bulb and sweep, as well as the proximal small bowel have a normal appearance. 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 Chronic cough for years Asthma,-recent prednisone May be aggravated -seasonal allergies Code(s): R05.3 - Chronic cough Category: Medical Plan: Continue with pulmonary And procedure that is scheduled Follow-up with GI once workup completed (3) Asthma: Code(s): J45.909 - Unspecified asthma, uncomplicated Category: Medical Plan: Follow-up pulmonary Plan RTC 2 mos Complete pulmonary w/u call w/ concerns Patient Instructions: 63-year-old female, no acute distress, Due for repeat colonoscopy-however currently undergoing pulmonary work with chronic cough, shortness of She will continue that workup, will see her back in in a couple months to further discuss endoscopy. She agrees with the plan She will call with concerns, change in health status- Coding Level of Care Code Est Pt Level 3 (07063) Diagnoses Gastric outlet obstruction K31.1 Chronic cough R05.3 Asthma J45.909 Time Spent (min) 30 Comment interp-Josh
== END 2023-12-05 09:38 | disposition home or self-care (01) ==
PROVIDERS: PCP Internal Medicine; Visit Provider Physician Assistant
DX: K31.1 Adult hypertrophic pyloric stenosis (principal); R05.3 Chronic cough; J45.909 Unspecified asthma, uncomplicated
CPT/HCPCS: 99213

== ENCOUNTER → 2023-12-05 08:59 | Outpatient (BNVA) | payer MEDICAID, SELFPAY | PROVIDERS: PCP Internal Medicine; Visit Provider Physician Assistant | DX: K31.1 Adult hypertrophic pyloric stenosis (principal); R05.3 Chronic cough; J45.909 Unspecified asthma, uncomplicated | CPT/HCPCS: 99212 ==

== ENCOUNTER 2024-01-06 12:36 | Outpatient (REF) | payer MEDICAID, SELFPAY ==
[2024-01-06 16:44] LABS: Rheumatoid Factor < 13.0 IU/mL (<15.0)
[2024-01-06 17:02] LABS: C Reactive Protein 0.44 mg/dL (< or = 0.50); Cholesterol 211 mg/dL (<200); HDL Cholesterol 61 mg/dL (>40); LDL Cholesterol Calculated 132 mg/dL (<100); Triglycerides 91 mg/dL (<150)
[2024-01-06 17:08] LABS: TSH reflex Free T4 1.04 uIU/mL (0.32-4.0); Vitamin D 25-OH Total 30.9 ng/mL (>30)
[2024-01-06 17:48] LABS: Erythrocyte Sedimentation Rate 25 MM/HR (0-20)
[2024-01-06 19:26] LABS: Reflex LDLD? No
[2024-01-08 22:04] LABS: RPR Rapid Plasma Reagin NON-REACTIVE (NON-REACTIVE)
[2024-01-09 08:21] LABS: HBc Num1 0.16 S/CO (0.00-0.79); HBsAGNum1 0.27 S/CO (0.00-0.99); HIV AB/AG Nonreactive (Nonreactive); HIV Num 1 0.06 S/CO (0.00-0.99); Hepatitis A Antibody IgM 0.33 Index (0-0.79); Hepatitis B Core Antibody Nonreactive (Nonreactive); Hepatitis B Surface Antigen Negative (Negative); ~HepC Num1 0.17 S/CO (0.00-0.79); ~Hepatitis A Antibody IgM Nonreactive (Nonreactive); ~Hepatitis B Surface Antibody REACTIVE (Nonreactive); ~Hepatitis C Antibody Nonreactive (Nonreactive)
[2024-01-09 15:29] LABS: Anti Nuclear Antibody Screen NEGATIVE (NEGATIVE)
== END 2024-01-06 12:37 | disposition home or self-care (01) ==
LOC: HO.HHCL 12:36
PROVIDERS: Visit Provider Internal Medicine
DX: M51.26 Other intervertebral disc displacement, lumbar region (principal); K76.0 Fatty (change of) liver, not elsewhere classified; E11.9 Type 2 diabetes mellitus without complications; R06.00 Dyspnea, unspecified
CPT/HCPCS: 36415; 80061; 82306; 84443; 85652; 86038; 86140; 86431; 86592; 86704; 86706; 86709; 86803; 87340; 87389

== ENCOUNTER 2024-01-07 09:07 | Outpatient (REF) | payer MEDICAID, SELFPAY ==
--- NOTE | 2024-01-07 09:00 | PFT_ITS ---
Flows: FEV1: 87 % of predicted at 2.01 L FVC: 86 % of predicted at 2.53 L FEV1/FVC: 79 % Bronchodilator response: Absent Volumes: Total lung capacity: 80 % of predicted at 3.91 L Residual volume: 79 % of predicted at 1.39 L Slow vital capacity: 80 % of predicted at 2.52 L Expiratory reserve volume: 58 % of predicted at 0.44 L Diffusion capacity: Normal Impression: No obstructive or restrictive ventilatory defect. No bronchodilator response. Essentially normal pulmonary function test. MTDD
[2024-01-07 10:01] VITALS: PULSE 69; RESP 16; O2SAT 96
== END 2024-01-07 09:08 | disposition home or self-care (01) ==
LOC: HO.RESP 09:07
PROVIDERS: Visit Provider Internal Medicine Pulmonary Disease
DX: R06.00 Dyspnea, unspecified (principal)
CPT/HCPCS: 94010; 94640; 94727; 94729

== ENCOUNTER 2024-01-10 12:42 | Outpatient (AMB) | payer MEDICAID, SELFPAY ==
[2024-01-10 13:03] VITALS: BP 140/78; PULSE 66; O2SAT 94; BMI 34.9
--- NOTE | 2024-01-10 13:03 | MHC.OFFVIS ---
Vital Signs 01/10/24 13:03 Height 5 ft 2 in Weight 190 lb 11.198 oz BMI 34.9 BP 140/78 H Blood Pressure Location Rt brachial Position Sitting Pulse 66 Pulse Source Doppler Pulse Oximetry (%) 94 Oxygen Delivery Method Room Air Intake Visit Reasons: Asthma/PFT Follow Up Implementation Project Manager Required: Yes Implementation Project Manager Name: Jayne Slade PamelaYandy Allergies No Known Drug Allergies Allergy (Severe, Verified 01/10/24 13:08) Unknown pineapple [PINEAPPLE] Allergy (Unknown, Verified 01/10/24 13:08) TONGUE SWELLS HPI HPI Asthma/PFT Follow Up: Details: 62-year-old lady, nonsmoker, with underlying history of asthma since 5 years of age, now followed for asthma. At the last office visit patient is Flovent has been changed to Symbicort with significantly improved symptom control. She also had essentially negative allergic workup. She continues with good symptom control. She does complain of episodes of what appears to be vagal presyncope. [facility] Medical History Elevated cholesterol Full dentures Low back pain COVID-19 vaccine series completed Asthma Hypertension Palpitations Primary osteoarthritis of right knee Diabetes mellitus Obesity Erosive osteoarthritis Primary osteoarthritis of knees, bilateral Surgical History History of bladder surgery History of total bilateral knee replacement Hx of colonoscopy Hx of reduction mammoplasty Hx of tonsillectomy History of H/O Spinal surgery Family History Mother Hx of acute arthritis Father History of Parkinson's disease Social History Household Members: Other Household Members Other:: Room mate Housing: Apartment Are you a primary career technical counselor to a significant other at home: No Do you presently have visiting nurse or other home services: Yes ([employer]) Alcohol intake: never Patient Tobacco Use Status: Never used Tobacco Current occupational status: disabled Current occupation: rt handed Review of Systems Const Denies daytime sleepiness, Denies excessive sweating, Denies fatigue, Denies fever(s), Denies lethargy, Denies malaise, Denies night sweats, Denies snoring and Denies weight loss Eyes Denies blurry vision and Denies itchy eyes ENT Denies nasal congestion, Denies post nasal drip, Denies sinus pain, Denies sinus pressure and Denies other ( Thrush) Card Denies chest pain, Denies pedal edema, Denies dyspnea, Denies orthopnea and Denies paroxysmal nocturnal dyspnea Resp Denies cough, Denies hemoptysis, Denies excessive phlegm production, Denies dyspnea, Denies snoring and Denies wheezing GI Denies abdominal pain and Denies heartburn Musc Denies myalgias, Denies arthralgias and Denies joint swelling Skin/Breast Denies rash Neuro Denies memory loss and Denies seizure-like activity Psych Denies abnormal sleep pattern, Denies anxiety and Denies memory loss Endo Denies excessive sweating, Denies fatigue and Denies heat intolerance Dwayne/Lymph Denies easy bruising Aller/Immun Denies itchy eyes, Denies seasonal rhinorrhea and Denies wheezing Physical Exam Vital Signs: Last Vital Signs Pulse 66 01/10/24 13:03 BP 140/78 H 01/10/24 13:03 Pulse Ox 94 01/10/24 13:03 Oxygen Delivery Method Room Air 01/10/24 13:03 BMI result Body Mass Index 34.9 Const General: no acute distress and alert Nutritional Appearance: obese Orientation/consciousness: Other orientation findings ( oriented) HEENT Head: Yes atraumatic Eyes General: appearance normal, both eyes and all related structures Sclerae: sclerae normal EOM: EOMs intact bilaterally Neck Neck: Yes supple Lymphatic: no lymphadenopathy noted Resp Effort & Inspection: normal respiratory effort and no use of accessory muscles Auscultation: clear to auscultation bilaterally Cardio Rate: regular rate Rhythm: regular rhythm Heart sounds: no gallops, no murmurs and no rubs Skin General skin exam: other ( warm) Extrem General: No clubbing, No cyanosis and No edema Assessment & Plan Assessment & Plan (1) Asthma: Code(s): J45.909 - Unspecified asthma, uncomplicated Category: Medical Plan: Well controlled on Symbicort and albuterol MDI. Continue current regimen. (2) Environmental allergies: Code(s): Z91.09 - Other allergy status, other than to drugs and biological substances Category: Medical Plan: No significant allergic contribution to asthma noted. Continue on as needed Zyrtec for symptomatic relief. (3) Pre-syncope: Code(s): R55 - Syncope and collapse Category: Medical Plan: Patient describes feeling of dizziness lightheadedness darkening in her eyes and difficulty breathing when laughing or coughing that appears to be related to vagal presyncope. Patient has been advised to follow-up with her primary care provider. Coding Level of Care Code Est Pt Level 4 (46131) Diagnoses Asthma J45.909 Environmental allergies Z91.09 Pre-syncope R55
== END 2024-01-10 13:26 | disposition home or self-care (01) ==
PROVIDERS: PCP Internal Medicine; Referring Provider Internal Medicine; Visit Provider Internal Medicine Pulmonary Disease
DX: J45.909 Unspecified asthma, uncomplicated (principal); Z91.09 Other allergy status, other than to drugs and biological substances; R55 Syncope and collapse
CPT/HCPCS: 99214

== ENCOUNTER → 2024-01-10 12:42 | Outpatient (BNVA) | payer MEDICAID, SELFPAY | PROVIDERS: PCP Internal Medicine; Visit Provider Internal Medicine Pulmonary Disease | DX: J45.909 Unspecified asthma, uncomplicated (principal); Z91.09 Other allergy status, other than to drugs and biological substances; R55 Syncope and collapse | CPT/HCPCS: 99212 ==

== ENCOUNTER 2024-03-14 18:01 | Outpatient (REF) | payer MEDICAID, SELFPAY ==
[2024-03-15 11:15] LABS: Bacterial Vaginosis PCR NEGATIVE (Negative); Candida Group PCR NOT DETECTED (Not Detect); Candida glab krusei PCR NOT DETECTED (Not Detect); Trichomonas vaginalis PCR NOT DETECTED (Not Detect)
== END 2024-03-14 18:02 | disposition home or self-care (01) ==
LOC: HO.HHCLNP 18:01
PROVIDERS: Visit Provider Student in an Organized Health Care Education/Training Program
DX: N95.0 Postmenopausal bleeding (principal)
CPT/HCPCS: 0352U

== ENCOUNTER 2024-03-23 14:58 | Outpatient (REF) | payer MEDICAID, SELFPAY ==
--- NOTE | ~2024-03-23 | US_ITS ---
EXAMINATION: US PELVIS COMPLETE US PELVIS ENDOVAGINAL CLINICAL INFORMATION: post menopausal bleeding COMPARISON: Ultrasound pelvis from 05/04/2019 TECHNIQUE: Transabdominal and transvaginal images of the pelvis were obtained. FINDINGS: UTERUS: Anteverted. Normal size and contour, measuring 8.8 x 2.9 x 5.1 cm (cervix to fundus x AP x transverse). Fibroid noted measuring up to 0.6 cm. Thickened endometrium measuring 0.7 cm in width. Echogenic focus noted within the endometrium measuring 0.6 x 0.4 x 0.6 cm, nonspecific though may reflect a polyp. Nabothian cysts are noted. RIGHT OVARY: Normal size and echogenicity measuring 1.9 x 1.3 x 1.1 cm, volume 1.4 mL. LEFT OVARY: Normal size and echogenicity measuring 1.3 x 0.9 x 1.0 cm, and 0.6 mL. FREE FLUID: No pelvic free fluid. US/US pelvic and transvaginal IMPRESSION: 1. Thickened endometrium measuring up to 0.7 cm in width. Echogenic focus noted within the endometrium measuring 0.6 x 0.4 x 0.6 cm, nonspecific though may reflect a polyp. If clinically warranted this can be further evaluated with hysterosonography. 2. Fibroid noted measuring up to 0.6 cm. 3. Nabothian cysts are noted. 4. Bilateral ovaries are unremarkable. Electronically signed by: Paty Montiel MD 03/31/2024 04:26 PM EDT
== END 2024-03-23 14:59 | disposition home or self-care (01) ==
LOC: HO.US 14:58
PROVIDERS: PCP Internal Medicine; Visit Provider Student in an Organized Health Care Education/Training Program
DX: N95.0 Postmenopausal bleeding (principal)
CPT/HCPCS: 76830; 76856

== ENCOUNTER 2024-03-29 11:59 | Outpatient (REF) | payer MEDICAID, SELFPAY ==
--- NOTE | ~2024-03-29 | XR_ITS ---
EXAMINATION: XR FOOT, LEFT CLINICAL INFORMATION: Left foot pain No injury COMPARISON: None available. TECHNIQUE: AP, lateral, and oblique views of the left foot. FINDINGS: The bones are intact No fracture. Alignment is anatomic. There is mild narrowing of the first metatarsophalangeal joint. Achilles enthesophyte is noted. There are small calcifications seen at the insertion of the Achilles tendon. XR/XR foot LT min 3V IMPRESSION: 1. No acute bony abnormality. 2. Mild osteoarthritis of the first metatarsophalangeal joint. Electronically signed by: Africa Li MD 04/19/2024 02:07 PM EDT
== END 2024-03-29 12:00 | disposition home or self-care (01) ==
LOC: HO.HHCX 11:59
PROVIDERS: Visit Provider Internal Medicine
DX: M79.672 Pain in left foot (principal)
CPT/HCPCS: 73630

== ENCOUNTER 2024-05-29 13:08 | Outpatient (REF) | payer MEDICAID, SELFPAY ==
[2024-06-01 15:24] LABS: Fentanyl, Ur NEGATIVE; Norfentanyl, Ur NEGATIVE
[2024-06-01 15:25] LABS: Alphahydroxymidazolam,GCMS Ur NEGATIVE; Alphahydroxytriazolam, GCMS Ur NEGATIVE; Alprazolam, GCMS Urine NEGATIVE; Aminoclonazepam, GCMS Urine NEGATIVE; Flurazepam Metabolite,GCMS Ur NEGATIVE; Lorazepam GCMS Urine NEGATIVE; Nordiazepam, GCMS Urine NEGATIVE; Oxazepam, GCMS Urine NEGATIVE; Temazepam, GCMS Urine NEGATIVE
== END 2024-05-29 13:09 | disposition home or self-care (01) ==
LOC: HO.HHCLNP 13:08
PROVIDERS: Visit Provider Registered Nurse
DX: Z79.891 Long term (current) use of opiate analgesic (principal); M54.16 Radiculopathy, lumbar region
CPT/HCPCS: 80346; 80354

== ENCOUNTER 2024-06-01 13:47 | Outpatient (AMB) | payer MEDICAID, SELFPAY ==
[2024-06-01 14:00] VITALS: BP 136/72; BMI 35.1
--- NOTE | 2024-06-01 14:00 | A.OFFVIS_ITS ---
Vital Signs 06/01/24 14:00 Height 5 ft 2 in Weight 192 lb BMI 35.1 BP 136/72 Intake Visit Reasons: PMB/Referral Unmanned Aircraft Systems Roboticist Required: Yes Unmanned Aircraft Systems Roboticist Language: Ore Bridge Operator Services: Unmanned Aircraft Systems Roboticist Present (in person) Unmanned Aircraft Systems Roboticist Name: Leola Gotti DONTRELL Information Interpreted: non-clinical & clinical Ring Maker: Ring Maker Present (Leola JON) Accompanied by: Self / Same As Patient Allergies No Known Drug Allergies Allergy (Severe, Verified 06/01/24 14:04) Unknown pineapple [PINEAPPLE] Allergy (Unknown, Verified 06/01/24 14:04) TONGUE SWELLS Post menopausal: Yes HPI Comments Details: Patient is here today for a referral due to post menopausal bleeding episode 2 months ago. She does not recall when her last Pap smear or women's exam was obtained she believes it was done at the urology department at [facility]. She denies having any previous surgery to the cervix or abnormal Pap history. History of symphysis pain, back pain, prolapse surgery and correction x2 an additional nerve stimulator for urinary symptoms in place followed at [facility] has a follow up with her providers there. She denies any UTI symptoms today. She is concerned occasionally she has trouble wiping the perianal area clean due to her history of hemorrhoids. [facility] Medical History (Updated 06/01/24 @ 14:37 by Aisha Mcclain CNM) Elevated cholesterol Full dentures Low back pain COVID-19 vaccine series completed Asthma Hypertension Palpitations Primary osteoarthritis of right knee Diabetes mellitus Obesity Erosive osteoarthritis Primary osteoarthritis of knees, bilateral Surgical History (Updated 06/01/24 @ 14:24 by Aisha Mcclain CNM) History of bladder surgery History of total bilateral knee replacement Hx of colonoscopy Hx of reduction mammoplasty Hx of tonsillectomy History of H/O Spinal surgery Family History Mother Hx of acute arthritis Father History of Parkinson's disease Social History (Updated 06/01/24 @ 14:06 by Leola Gotti CMA) Household Members Other:: Daughter Housing: House Are you a primary long term care administrator to a significant other at home: No Do you 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 have 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) Alcohol intake: never Patient Tobacco Use Status: Never used Tobacco Current occupational status: disabled Current occupation: rt handed Sexual orientation: Straight/Heterosexual Gender identity: Female Female Reproductive History Menstrual Total pregnancies: 3 Full term: 3 Number of Living Children: 3 Review of Systems Const All systems reviewed & are unremarkable except as noted in HPI and below Reports as per HPI Eyes Reports no additional complaints ENT Reports no additional complaints Card Reports no additional complaints Resp Reports no additional complaints GI Reports as per HPI and Reports no additional complaints Reports as per HPI Musc Reports no additional complaints Skin/Breast Reports as per HPI Neuro Reports no additional complaints Psych Reports no additional complaints Endo Reports no additional complaints Dwayne/Lymph Reports no additional complaints Aller/Immun Reports no additional complaints Physical Exam Vital Signs: Last Vital Signs BP 136/72 06/01/24 14:00 BMI result Body Mass Index 35.1 Const General: cooperative, healthy appearing, no acute distress, well developed and alert Orientation/consciousness: patient oriented x3 HEENT Head: Yes normal to inspection Eyes General: appearance normal, both eyes and all related structures Neck Neck: Yes normal visual inspection Thyroid: Thyroid normal Chest Other: Bilateral reconstruction scarring Chest palpation & inspection: normal inspection of the chest and other (no puckering, dimpling, peau de orange, retraction, discharge, masses) Breast/axilla inspection: normal inspection of the breasts Breast/axilla palpation: normal palpation of the breasts Resp Effort & Inspection: normal respiratory effort GI Inspection: Yes normal to inspection Palpation (GI): Soft to palpation Rectal Exam - Female: deferred General: Yes bladder normal to palpation External Female Exam: normal external appearance and normal appearance of the urethra Speculum Exam - Vagina: normal appearance of the vagina, normal palpation, normal vaginal discharge and vagina atrophic Speculum Exam - Cervix: normal appearance of the cervix, normal palpation and Other cervical findings present (Short cervix has a post LEEP appearance bled slight with Pap) Bimanual exam- vagina & uterus: normal bimanual exam, normal palpation, uterine size normal, bladder normal to palpation, normal palpation and non-tender Bimanual Exam- Adnexa, other: no masses Skin General skin exam: no rashes or lesions noted Rashes: no rashes Neuro General: patient oriented x3 Cognition (Neuro): normal cognition Extrem General: Yes normal to inspection Psych Attitude: cooperative Thought process: Normal thought process present Results Reviewed Results Reviewed: [address] [address] Ultrasound Report Signed Patient: Rhonda Fernández MR#: [id number] : 1960 Acct:[id number] Age/Sex: 63 / F ADM Date: 03/23/24 Loc: HO.US Attending Dr: Marie Lozano MD Ordering Physician: Marie Lozano MD Date of Service: 03/23/24 Procedure(s): US pelvic and transvaginal Accession Number(s): [id number] cc: Zeinab Sykes MD; Marie Lozano MD~ EXAMINATION: US PELVIS COMPLETE US PELVIS ENDOVAGINAL CLINICAL INFORMATION: post menopausal bleeding COMPARISON: Ultrasound pelvis from 05/04/2019 TECHNIQUE: Transabdominal and transvaginal images of the pelvis were obtained. FINDINGS: UTERUS: Anteverted. Normal size and contour, measuring 8.8 x 2.9 x 5.1 cm (cervix to fundus x AP x transverse). Fibroid noted measuring up to 0.6 cm. Thickened endometrium measuring 0.7 cm in width. Echogenic focus noted within the endometrium measuring 0.6 x 0.4 x 0.6 cm, nonspecific though may reflect a polyp. Nabothian cysts are noted. RIGHT OVARY: Normal size and echogenicity measuring 1.9 x 1.3 x 1.1 cm, volume 1.4 mL. LEFT OVARY: Normal size and echogenicity measuring 1.3 x 0.9 x 1.0 cm, and 0.6 mL. FREE FLUID: No pelvic free fluid. US/US pelvic and transvaginal IMPRESSION: 1. Thickened endometrium measuring up to 0.7 cm in width. Echogenic focus noted within the endometrium measuring 0.6 x 0.4 x 0.6 cm, nonspecific though may reflect a polyp. If clinically warranted this can be further evaluated with hysterosonography. 2. Fibroid noted measuring up to 0.6 cm. 3. Nabothian cysts are noted. 4. Bilateral ovaries are unremarkable. Electronically signed by: Paty Montiel MD 03/31/2024 04:26 PM EDT Dictated By: Paty Montiel MD Signed By: <Electronically signed by Paty Montiel MD in OV> 03/31/24 1626 DD/ 1510 TD/TT: 03/23/24 1548 Wood Box Maker: Assessment & Plan Assessment & Plan (1) Encounter for well woman exam with routine gynecological exam: Code(s): Z01.419 - Encounter for gynecological examination (general) (routine) without abnormal findings Category: Medical (2) Endometrial polyp: Code(s): N84.0 - Polyp of corpus uteri (3) Postmenopausal bleeding: Code(s): N95.0 - Postmenopausal bleeding Plan Discussed: Current recommendations for pap smears per ASCCP guidelines. Pap smear obtained. Breast awareness, periodic self breast exams and yearly mammogram. Recommendations for hysteroscopy with Dr. Quigley appointment to be made for a follow up preop consult. Reviewed endometrial polyps with the use of diagram. Contact the office with any postmenopausal bleeding. Patient verbalizes understanding and agrees to the plan of care. She was given opportunity to ask questions and all questions were answered to the best of my ability. RTO in 1 year for annual remedial reading teacher exam. This note is constructed using voice recognition software. While every effort has been made to ensure accuracy, butter printer errors may have been included. Orders: Orders Pap Smear Today Z01.419 - Encounter for gynecological examination (general) (routine) without abnormal findings HPV High risk Today Z01.419 - Encounter for gynecological examination (general) (routine) without abnormal findings Coding Level of Care Code New Pt Prev Care 40-64y(57543) Diagnoses Encounter for well woman exam with routine gynecological exam Z01.419 Endometrial polyp N84.0 Postmenopausal bleeding N95.0
== END 2024-06-01 14:42 | disposition home or self-care (01) ==
LOC: HO.HWS 13:48
PROVIDERS: PCP Internal Medicine; Visit Provider Advanced Practice Midwife
DX: Z01.419 Encounter for gynecological examination (general) (routine) without abnormal findings (principal); N84.0 Polyp of corpus uteri; N95.0 Postmenopausal bleeding
CPT/HCPCS: 99386

== ENCOUNTER 2024-06-01 13:47 | Outpatient (REF) | payer MEDICAID, SELFPAY ==
[2024-06-04 10:28] LABS: HPV 16,18/45 See PAP report
== END 2024-06-01 13:48 | disposition home or self-care (01) ==
LOC: HO.LNP 13:47
PROVIDERS: PCP Internal Medicine; Visit Provider Advanced Practice Midwife
DX: Z01.419 Encounter for gynecological examination (general) (routine) without abnormal findings (principal); N84.0 Polyp of corpus uteri; N95.0 Postmenopausal bleeding
CPT/HCPCS: 87624; 88175; 99386

== ENCOUNTER 2024-06-05 15:08 | Outpatient (AMB) | payer MEDICAID, SELFPAY ==
--- NOTE | 2024-06-05 15:17 | MHC.OFFVIS ---
Intake Visit Reasons: pre op/Hysteroscopy Wastewater Treatment Supervisor Required: Yes Wastewater Treatment Supervisor Language: Residential Sales Consultant Services: Wastewater Treatment Supervisor Present (in person) Wastewater Treatment Supervisor Name: DONTRELL Leon Information Interpreted: non-clinical & clinical Soaker Meat: Soaker Meat Present (Leola Franco RMA) Accompanied by: Self / Same As Patient Allergies No Known Drug Allergies Allergy (Severe, Verified 06/05/24 15:18) Unknown pineapple [PINEAPPLE] Allergy (Unknown, Verified 06/05/24 15:18) TONGUE SWELLS Is last menstrual period known: Yes Last menstrual period: 05/15/20 Post menopausal: No Patient : No Do you need a note to return to daycare/school/sports/work: Yes (for surgery on tuesday) HPI Comments Details: Presenting referred from the MARLENE Mcclain regarding postmenopausal bleeding and abnormal endometrial ultrasound showing the following: UTERUS: Anteverted. Normal size and contour, measuring 8.8 x 2.9 x 5.1 cm (cervix to fundus x AP x transverse). Fibroid noted measuring up to 0.6 cm. Thickened endometrium measuring 0.7 cm in width. Echogenic focus noted within the endometrium measuring 0.6 x 0.4 x 0.6 cm, nonspecific though may reflect a polyp. Nabothian cysts are noted. RIGHT OVARY: Normal size and echogenicity measuring 1.9 x 1.3 x 1.1 cm, volume 1.4 mL. LEFT OVARY: Normal size and echogenicity measuring 1.3 x 0.9 x 1.0 cm, and 0.6 mL. FREE FLUID: No pelvic free fluid. Last co testing in 06/04 still pending [facility] Medical History Elevated cholesterol Full dentures Low back pain COVID-19 vaccine series completed Asthma Hypertension Palpitations Primary osteoarthritis of right knee Diabetes mellitus Obesity Erosive osteoarthritis Primary osteoarthritis of knees, bilateral Surgical History History of bladder surgery History of total bilateral knee replacement Hx of colonoscopy Hx of reduction mammoplasty Hx of tonsillectomy History of H/O Spinal surgery Family History Mother Hx of acute arthritis Father History of Parkinson's disease Social History Household Members Other:: Daughter Housing: House Are you a primary career center director to a significant other at home: No Do you presently have 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) Alcohol intake: never Patient Tobacco Use Status: Never used Tobacco Current occupational status: disabled Current occupation: rt handed Sexual orientation: Straight/Heterosexual Gender identity: Female Female Reproductive History Menstrual Date of last menstrual period: 05/15/20 Total pregnancies: 2 Full term: 2 Review of Systems Card Reports as per HPI and Reports no additional complaints Resp Reports as per HPI and Reports no additional complaints GI Reports as per HPI and Reports no additional complaints Reports as per HPI Physical Exam Const General: cooperative, healthy appearing and comfortable Resp Effort & Inspection: normal respiratory effort Auscultation: clear to auscultation bilaterally Percussion: percussion normal Cardio Palpation: normal PMI Rate: regular rate Rhythm: regular rhythm Heart sounds: no murmurs and no rubs Peripheral pulses: Peripheral pulses 2+ throughout GI Inspection: Yes normal to inspection Palpation (GI): Soft to palpation, nontender, no guarding, not rigid and No hepatosplenomegaly present Percussion: Yes normal to percussion Auscultation: normal bowel sounds Rectal Exam - Female: deferred Assessment & Plan Assessment & Plan (1) Postmenopausal bleeding: Comment: Thick endometrium and endometrial polyp by ultrasound Code(s): N95.0 - Postmenopausal bleeding Category: Medical Plan: Discussed with the patient the pelvic ultrasound findings, the endometrial stripe thickenss measured by ultrasound was more than 4mm in addition to possible endometrial polyp. The negative predictive value, positive predictive value, Sensitivity, specificity of using ultrasound measurement of endometrial stripe to detecting endometrial pathology including hyperplasia , polyp or cancer were discussed with the patient. Recommended to the patient that the next step is an endometrial sampling via hysteroscopy D&C possible polypectomy versus endometrial biopsy to r/o endometrial pathology including hyperplasia or cancer. All the pros and cons risks and benefits of each approach were discussed with the patient, endometrial biopsy being less invasive, office procedure with less sensitivity and inability diagnose a polyp and removal versus hysteroscopy done under anesthesia more invasive more sensitive to endometrial cancer and possibility of diagnosing and endometrial polyp with the possibility of polypectomy. All questions were answered pt verbalized understanding and decided to proceed with hysteroscopy D&C possible polypectomy/myomectomy. Discussed with the patient the procedure , all benefits and risks including but not limited to inability to complete the procedure , insufficient endometrial tissue for a complete evaluation of the endometrial cavity , bleeding, infection, possible need for blood transfusion with all its risk ( HIV,syphilis, Hepatitis, anaphylaxis shock, others..), injury to bladder, rectum, possible need for laparoscopy/laparotomy or hysterectomy. The patient verbalized understanding and signed the consent. Instructions given the patient to stay NPO after midnight the day prior to the procedure and to take only the specific medication (s) discussed the morning of the surgical procedure and to schedule a 2 week postoperative appointment (2) Uterine myoma: Code(s): D25.9 - Leiomyoma of uterus, unspecified Category: Medical Plan: Discussed with the patient the findings on pelvic ultrasound & the risk of myosarcoma; discussed with the patient the options of treatment including expectant management versus hysterectomy; the pros and cons, risks benefits of each approach were discussed with the patient including the fact that in cases of myosarcoma, surgical treatment can lead to early diagnosis and positively affects the prognosis; after further discussion, the patient decided to proceed with expectant management. Will repeat pelvic ultrasound periodically. Instructions given to patient to call in case any of the following occurs: pressure symptoms, abnormal uterine bleeding, pelvic pain; and to schedule a six-months pelvic ultrasound and a follow-up appointment . All questions answered, the patient verbalized understanding and agreed with the plan . Orders: Orders US pelvic and transvaginal Today D25.9 - Leiomyoma of uterus, unspecified Coding Level of Care Code Est Pt Level 3 (46482) Diagnoses Postmenopausal bleeding N95.0 Uterine myoma D25.9
== END 2024-06-05 15:36 | disposition home or self-care (01) ==
LOC: HO.HWS 15:08
PROVIDERS: PCP Internal Medicine; Visit Provider Obstetrics & Gynecology
DX: N95.0 Postmenopausal bleeding (principal); D25.9 Leiomyoma of uterus, unspecified
CPT/HCPCS: 99213

== ENCOUNTER → 2024-06-05 15:08 | Outpatient (BNVA) | payer MEDICAID, SELFPAY | PROVIDERS: PCP Internal Medicine; Visit Provider Obstetrics & Gynecology | DX: N95.0 Postmenopausal bleeding (principal); D25.9 Leiomyoma of uterus, unspecified | CPT/HCPCS: 99212 ==

== ENCOUNTER 2024-06-08 09:02 | Day surgery (SDC) | payer MEDICAID, SELFPAY ==
--- NOTE | 2024-06-07 10:21 | HO.ANESPROP2 ---
Documented by User: Chiara Young NP 06/07/24 10:24 HPI - Anesthesia Eval Consult details Narrative: 63yo F for D&C Hysteroscopy,possible myomectomy,possible polypectomy PMFSH Active Problems Active Problems: All Active Problems Uterine myoma (Acute) Postmenopausal bleeding (Acute) Encounter for well woman exam with routine gynecological exam (Acute) Pre-syncope (Acute) Environmental allergies (Acute) Asthma (Acute) Complications of bariatric procedures (Acute) Gastric outlet obstruction (Acute) Chronic cough (Acute) Acid reflux (Acute) Epigastric pain (Acute) Rosacea (Acute) Osteoarthritis of hands, bilateral (Acute) Primary osteoarthritis of left knee (Acute) Varicose veins of left lower extremity with inflammation (Acute) Status post total right knee replacement (Acute) HART (dyspnea on exertion) (Acute) Preoperative cardiovascular examination (Acute) Encounter for screening colonoscopy (Acute) Adenomatous colon polyp (Acute) Diverticulosis large intestine w/o perforation or abscess w/o bleeding (Acute) Hemorrhoids (Acute) Primary osteoarthritis of right knee (Acute) Past Medical History Medical History Elevated cholesterol Full dentures Low back pain COVID-19 vaccine series completed Asthma Hypertension Palpitations Primary osteoarthritis of right knee Diabetes mellitus Obesity Erosive osteoarthritis Primary osteoarthritis of knees, bilateral Family History Family History Mother Hx of acute arthritis Father History of Parkinson's disease Family history of problems with anesthesia: No Surgical History Surgical History History of bladder surgery History of total bilateral knee replacement Hx of colonoscopy Hx of reduction mammoplasty Hx of tonsillectomy History of H/O Spinal surgery History of Problems with Anesthesia: No Social History Social History Household Members Other:: Daughter Housing: House Are you a primary healthcare associate to a significant other at home: No Do you presently have visiting nurse or other home services: No Alcohol intake: never Patient Tobacco Use Status: Never used Tobacco Use of substances other than those prescribed or required for medical reasons: No Have you been hit, kicked, punched, or otherwise hurt by someone within the past year? If so, by whom?: No Are you DNR?: No Advance Directives: No Advance Directives Information Provided: No Advance Directives on File: No Recently lost weight without trying: No How much weight loss: Not applicable Eating poorly because of decreased appetite: No Nutrition screen score: 0 Nutrition Risks: No Nutritional Risk Patient : No : No Poor oral hygiene: Yes (upper and lower missing teeth) Current occupational status: disabled Current occupation: rt handed Sexual orientation: Straight/Heterosexual Gender identity: Female Meds Allergies Allergy/AdvReac Type Severity Reaction Status Date / Time pineapple [PINEAPPLE] Allergy Unknown TONGUE Verified 06/08/24 10:01 SWELLS latex Allergy Unknown Verified 06/08/24 10:01 Home Medications ?Medication ?Instructions ?Recorded ?Confirmed ?Last Taken ?Type albuterol sulfate 90 mcg/actuation 2 puff inhalation Q4-6H PRN 11/27/20 06/08/24 Unknown History aerosol inhaler (Proventil HFA) Shortness Of Breath Or Wheezing atorvastatin 40 mg tablet 40 mg PO BEDTIME 11/27/20 06/08/24 Unknown History amlodipine 10 mg-valsartan 320 mg 1 tab PO DAILY 07/01/22 06/08/24 06/08/24 History tablet betamethasone valerate 0.1 % lotion 1 appl topical BID 07/01/22 06/08/24 Unknown History cetirizine 10 mg tablet 10 mg PO DAILY 07/01/22 06/08/24 Unknown History chlorthalidone 25 mg tablet 12.5 mg PO DAILY 07/01/22 06/08/24 Unknown History lancets 33 gauge (TRUEplus Lancets) #100 ea 07/01/22 05/25/23 Unknown History naloxone 4 mg/actuation nasal spray 1 spray intranasal 07/01/22 05/25/23 Unknown History lidocaine 5 % topical patch 1 patch topical DAILY 12/05/23 06/08/24 Unknown History (Lidoderm) gabapentin 300 mg capsule 300 mg PO TID 06/08/24 06/08/24 Unknown History Assessment and Plan Assessment Anesthesia Assessment: Chart Reviewed Final Anesthetic Review Family History of Problems with Anesthesia: No History of Problems with Anesthesia: No Documented by User: Nelia Flores MD 06/08/24 10:05 [facility] Active Problems Active Problems: All Active Problems Uterine myoma (Acute) Postmenopausal bleeding (Acute) Encounter for well woman exam with routine gynecological exam (Acute) Pre-syncope (Acute) Environmental allergies (Acute) Asthma (Acute) Complications of bariatric procedures (Acute)- patient had gastric balloon inserted and removed Gastric outlet obstruction (Acute) Chronic cough (Acute) Acid reflux (Acute) Epigastric pain (Acute) Rosacea (Acute) Osteoarthritis of hands, bilateral (Acute) Primary osteoarthritis of left knee (Acute) Varicose veins of left lower extremity with inflammation (Acute) Status post total right knee replacement (Acute) HART (dyspnea on exertion) (Acute) Preoperative cardiovascular examination (Acute) Encounter for screening colonoscopy (Acute) Adenomatous colon polyp (Acute) Diverticulosis large intestine w/o perforation or abscess w/o bleeding (Acute) Hemorrhoids (Acute) Primary osteoarthritis of right knee (Acute) [place]. Not using CPAP because unable to tolerate Past Medical History Medical History Elevated cholesterol Full dentures Low back pain COVID-19 vaccine series completed Asthma Hypertension Palpitations Primary osteoarthritis of right knee Diabetes mellitus Obesity Erosive osteoarthritis Primary osteoarthritis of knees, bilateral Family History Family History Mother Hx of acute arthritis Father History of Parkinson's disease Family history of problems with anesthesia: No Surgical History Surgical History History of bladder surgery History of total bilateral knee replacement Hx of colonoscopy Hx of reduction mammoplasty Hx of tonsillectomy History of H/O Spinal surgery History of Problems with Anesthesia: No Social History Social History Household Members Other:: Daughter Housing: House Are you a primary healthcare associate to a significant other at home: No Do you presently have visiting nurse or other home services: No Alcohol intake: never Patient Tobacco Use Status: Never used Tobacco Use of substances other than those prescribed or required for medical reasons: No Have you been hit, kicked, punched, or otherwise hurt by someone within the past year? If so, by whom?: No Are you DNR?: No Advance Directives: No Advance Directives Information Provided: No Advance Directives on File: No Recently lost weight without trying: No How much weight loss: Not applicable Eating poorly because of decreased appetite: No Nutrition screen score: 0 Nutrition Risks: No Nutritional Risk Patient : No : No Poor oral hygiene: Yes (upper and lower missing teeth) Current occupational status: disabled Current occupation: rt handed Sexual orientation: Straight/Heterosexual Gender identity: Female Meds Allergies Allergy/AdvReac Type Severity Reaction Status Date / Time pineapple [PINEAPPLE] Allergy Unknown TONGUE Verified 06/08/24 10:01 SWELLS latex Allergy Unknown Verified 06/08/24 10:01 Home Medications ?Medication ?Instructions ?Recorded ?Confirmed ?Last Taken ?Type albuterol sulfate 90 mcg/actuation 2 puff inhalation Q4-6H PRN 11/27/20 06/08/24 Unknown History aerosol inhaler (Proventil HFA) Shortness Of Breath Or Wheezing atorvastatin 40 mg tablet 40 mg PO BEDTIME 11/27/20 06/08/24 Unknown History amlodipine 10 mg-valsartan 320 mg 1 tab PO DAILY 07/01/22 06/08/24 06/08/24 History tablet betamethasone valerate 0.1 % lotion 1 appl topical BID 07/01/22 06/08/24 Unknown History cetirizine 10 mg tablet 10 mg PO DAILY 07/01/22 06/08/24 Unknown History chlorthalidone 25 mg tablet 12.5 mg PO DAILY 07/01/22 06/08/24 Unknown History lancets 33 gauge (TRUEplus Lancets) #100 ea 07/01/22 05/25/23 Unknown History naloxone 4 mg/actuation nasal spray 1 spray intranasal 07/01/22 05/25/23 Unknown History lidocaine 5 % topical patch 1 patch topical DAILY 12/05/23 06/08/24 Unknown History (Lidoderm) gabapentin 300 mg capsule 300 mg PO TID 06/08/24 06/08/24 Unknown History Exam Height,Weight and Vital Signs: Height 5 ft 3 in Weight 86.636 kg Vital Signs Temp Pulse Resp BP Pulse Ox O2 Del Method 06/08/24 09:47 98.2 F 68 16 115/56 L 96 Room Air Pertinent Lab Results Pertinent Lab Results: Lab Results 06/08/24 Range/Units 09:44 POC Glucose 119 H (60-115) mg/dL Airway Mallampati Class: II TM Dist: >3cm Neck ROM: Full Loose/Missing/Broken Teeth: Yes (Edentulous) Heart: RRR Lungs: CTAB Assessment and Plan Assessment Anesthesia Assessment: Anesthesia Plan Discussed and Chart Reviewed Final Anesthetic Review Family History of Problems with Anesthesia: No History of Problems with Anesthesia: No NPO: Yes ASA Class: III Final Preanesthetic Review: No Changes in Pt Med Stat, Meds/Allgs Chart Reviewed, Consent Obtained/Reviewed and Anes Risks/Benef Reviewed Patient Risk: Intermediate Procedure Risk: Low Assessment/Block/Sedation in SS: Assess/Block/Sedation-SS Anesthetic Plan Anesthetic Plan: GA Disposition: Standard PACU
[2024-06-08 09:40] VITALS: BMI 33.8
[2024-06-08 09:47] VITALS: BP 115/56; PULSE 68; RESP 16; TEMP 36.8; O2SAT 96
[2024-06-08 09:49] LABS: Glucose, Whole Blood 119 mg/dL (60-115)
--- NOTE | 2024-06-08 09:52 | MHC.SHP ---
Pre-Procedural Eval Section A - 24 Hr Update-Section A only Date of Service: 06/08/24 The patient is an INPATIENT: No Changes since office visit: No Cold of Flu in the past 2 weeks, No New Medical Problems, No Changes in Medication and No Patient answered all questions The patient has been examined within 24 hours of the surgical procedure. The History & Physical has been completed within 30 days and I have reviewed it.: Yes Section B - Complete if H&P > 30 days Chief Complaint: Postmenopausal bleeding Allergies: Allergies Allergy/AdvReac Type Severity Reaction Status Date / Time No Known Drug Allergies Allergy Severe Unknown Verified 06/05/24 15:18 pineapple [PINEAPPLE] Allergy Unknown TONGUE Verified 06/05/24 15:18 SWELLS Plan Diagnosis/Plan: Unchanged I have reviewed the history and physical and performed a pertinent physical examination on my patient. No changes have occurred unless specified. Time Spent With Patient Time: Total time managing care of this patient today ____ minutes.
[2024-06-08] MEDS: Lactated Ringers 1,000 ML 100 ML IVCONT (09:55)
--- NOTE | 2024-06-08 10:34 | P.OP_ITS ---
Operative Note Operative Note Date of Service: 06/08/24 Narrative: Preop Diagnosis: Postmenopausal bleeding, abnormal endometrium by US Operation: Diagnostic Hysteroscopy, Dilataion & Curettage and polypectomy Post Op Diagnosis: Endometrial Polyp QBL: Minimal Anesthesia: GLMA Surgeon: Nolberto Quigley MD Sail Finisher Hand: None Complication: None Pathology: Endometrial Scrapings, Endometrial polyp Procedure: The patient was put in the dorsal lithotomy position, scrubbed, and draped in the usual manner. A sterile speculum was inserted in the patient's vagina. The anterior lip of the cervix was grasped with a single tooth tenaculum. The cervix was dilated up to 5 mm, then the scope was inserted in the patient's uterus. Inspection revealed endometrial polyp. The Myosure Reach device was used; it was introduced through the operative channel and polypectomy done with no complications. The scope was then taken out from the uterine cavity, sharp curettings was carried on with minimal to moderate amount of tissues retrieved. At the end of the procedure, all instruments were taken out of the patient uterine and vaginal cavity. The single tooth tenaculum was removed and homeostasis was assured using pressure,. The patient tolerated the procedure well and was transferred to the PACU in a stable condition.
--- NOTE | 2024-06-08 10:34 | P.BOP_ITS ---
Brief Operative Note Date of Service: 06/08/24 Pre-op diagnosis: Postmenopausal bleeding, abnormal endometrium by ultrasound Post-op diagnosis: same (Endometrial polyp) Procedure: Hysteroscopy D&C, Polypectomy Surgeon: Nolberto Quigley MD Anesthesia: GLMA Was an Batch Freezer Operator used for this Procedure?: No Estimated blood loss (mL): 0 Pathology: other (Endometrial Scrapping. Polyp) Condition: stable Disposition: PACU
[2024-06-08 10:36] VITALS: BP 105/49; PULSE 62; RESP 12; TEMP 36.1; O2SAT 97
[2024-06-08 10:41] VITALS: BP 107/53; PULSE 87; RESP 12; TEMP 36.1; O2SAT 94
[2024-06-08 10:46] VITALS: BP 106/57; PULSE 77; RESP 12; TEMP 36.1; O2SAT 99
[2024-06-08 10:51] VITALS: BP 107/60; PULSE 70; RESP 12; TEMP 36.1; O2SAT 98
[2024-06-08 11:01] VITALS: BP 101/59; PULSE 70; RESP 12; TEMP 36.1; O2SAT 96
== END 2024-06-08 11:30 | disposition home or self-care (01) ==
PROVIDERS: Visit Provider Obstetrics & Gynecology
PROC: 0UDB8ZZ Extraction of Endometrium, Via Natural or Artificial Opening Endoscopic (ICD-10-PCS; CPT 58558; principal; 2024-06-08 10:30)
DX: N95.0 Postmenopausal bleeding (principal); N84.0 Polyp of corpus uteri; D25.9 Leiomyoma of uterus, unspecified; E78.00 Pure hypercholesterolemia, unspecified; I10 Essential (primary) hypertension; E11.9 Type 2 diabetes mellitus without complications; J45.909 Unspecified asthma, uncomplicated; Z98.890 Other specified postprocedural states; Z79.899 Other long term (current) drug therapy; Z91.040 Latex allergy status
CPT/HCPCS: 58558; 82947; 88305; J0131; J1100; J1885; J2003; J2405; J2704; J3010

== ENCOUNTER → 2024-06-08 09:02 | Outpatient (BNV) | payer MEDICAID, SELFPAY | PROVIDERS: Visit Provider Obstetrics & Gynecology | DX: N84.0 Polyp of corpus uteri (principal) | CPT/HCPCS: 58558 ==

== ENCOUNTER 2024-06-18 14:37 | Outpatient (REF) | payer MEDICAID, SELFPAY | END 2024-06-18 14:38 | disposition home or self-care (01) | LOC: HO.US 14:37 | PROVIDERS: Visit Provider Obstetrics & Gynecology | DX: D25.9 Leiomyoma of uterus, unspecified (principal) | CPT/HCPCS: 76830; 76856 ==

== ENCOUNTER 2024-07-03 11:18 | Outpatient (REF) | payer MEDICAID, SELFPAY ==
--- OUTSIDE RECORDS SUMMARY | 2024-07-03 11:50 | XMS_ITS | Continuity of Care Document ---
Author Organization [facility] Address [address] [place] [address] Phone Care Team Providers Care Cardiologist Name Role Phone Waldo MADDOX FACS RVT Shir[place] CHERY Unavailable Unavailable Allergies, Adverse Reactions, Alerts Substance Reaction Status Criticality latex Active No Information Medications Medication Instructions Dosage Effective Dates (start - stop) Status Comments lidocaine-prilocaine 2.5 %-2.5 % topical cream apply 2 hours before procedures for Pain - Active Procedures Procedure Date Office/Outpt E&M Established 15 Mins Oct Duplex Scan-extrem Veins; [facility]/ 23 Endovenous Laser, 1st Vein Endovenous Laser, [...] E&M Established 15 Mins [facility], [address] [place] [address] Dr Adan [address]Pradeep [place], [id number], [place] tel:[phone] [facility] Venous insufficiency (chronic) (peripheral) 3 Waldo MADDOX FACS RVT MIRI Rapp. [address] [place] [address], [place], [address], [place]. tel:[phone] Referring Provider: Rebekah Guevara, [address] [place], [address]. tel:[phone] [facility], [address] [place] [address] [address]Pradeep [place], [id number], [place] tel:[phone] [facility] - [place] Encntr for f/u exam aft trtmt for cond oth than malig neoplmVenous insufficiency (chronic) (peripheral) 3 Waldo MADDOX FACS RVT MIRI Rapp. [address] [place] [address], [place], [address], [place]. tel:[phone] Referring Provider: Rebekah Guevara, [address] [place] [address], [address]. tel:[phone] [facility], [address] [place] [address] [address]Pradeep [place], [id number], [place] tel:[phone] [facility] [place] Venous insufficiency (chronic) (peripheral) 3 Waldo MADDOX FACS RVT MIRI Rapp. [address] [place] [address], [place], [address], [place]. tel:[phone] Referring Provider: Rebekah Guevara, [address] [place] [address], [address]. tel:[phone] [facility], [address] [place] [address] [address]Pradeep [place], [id number], [place] tel:[phone] [facility] [place] Venous insufficiency (chronic) (peripheral) 3 Waldo MADDOX FACS RVT MIRI Rapp. [address] [place] [address], [place] [address], [place], [address], [place]. tel:[phone] Referring Provider: Rebekah Guevara, [address] [place], [address]. tel:[phone] [facility], [address] [place] [address] [address]Pradeep [place], [id number], [place] tel:[phone] [facility] [place] No Information 3 Waldo Rapp. [address] [facility], [address] [facility], [place], [address], [place]. tel:[phone] Referring Provider: Rebekah Guevara, [address] [place] [address], [address]. tel:[phone] [facility], [address] [place] [address] [address]Pradeep [place], [id number], [place] tel:[phone] [facility] [place] Encntr for f/u exam aft trtmt for cond oth than malig neoplmVenous insufficiency (chronic) (peripheral) 3 Waldo Rapp. [address] [place] [address], [place] [address], [place], [address], [place]. tel:[phone] Referring Provider: Rebekah Guevara, [address] [place] [address], [address]. tel:[phone] [facility], [address] [place] [address] [address]Pradeep [place], [id number], [place] tel:[phone] [facility] [place] Varicose veins of left lower extremities w oth complications 3 Waldo Rapp. [address] [place] [address], [facility] [address], [place], [address], [place]. tel:[phone] Referring Provider: Rebekah Guevara, [address] [place], [address]. tel:[phone] [facility], [address] [place] [address] [address]Pradeep [place], [id number], [place] tel:[phone] [facility] - [place] Venous insufficiency (chronic) (peripheral) 3 Waldo Rapp. [facility], [address], [place], [address], [place]. [phone] Referring Provider: Rebekah Guevara, [address] [place], [address]. tel:[phone] Family History Family Member Type Diagnosis Age At Onset No Information Payers Payer name Insurance type Covered green party ID Authorlitzy funes(s) Medical Assistance DANIEL [id number] Social History Type Description Quantity Date Captured [...]
[2024-07-03 12:59] LABS: Blood Urea Nitrogen 18 mg/dL (9-16); Estimated Glomerular Filt Rate 56
== END 2024-07-03 11:19 | disposition home or self-care (01) ==
LOC: HO.LAB 11:18
PROVIDERS: PCP Internal Medicine; Visit Provider Obstetrics & Gynecology
DX: N95.0 Postmenopausal bleeding (principal); D25.9 Leiomyoma of uterus, unspecified; R10.2 Pelvic and perineal pain
CPT/HCPCS: 36415; 82565; 84520; 99212

== ENCOUNTER 2024-07-03 11:18 | Outpatient (AMB) | payer MEDICAID, SELFPAY ==
--- NOTE | 2024-07-03 11:19 | MHC.OFFVIS ---
Vital Signs 07/03/24 11:21 Height 5 ft 2 in Weight 192 lb BMI 35.1 Intake Visit Reasons: post op Automatic Equipment Technician Required: Yes Automatic Equipment Technician Language: Senior Technical Support Engineer Services: Automatic Equipment Technician Present (in person) Automatic Equipment Technician Name: Leola JON Information Interpreted: non-clinical & clinical Accompanied by: Self / Same As Patient Allergies pineapple [PINEAPPLE] Allergy (Unknown, Verified 07/03/24 11:21) TONGUE SWELLS latex Allergy (Verified 07/03/24 11:21) Unknown Post menopausal: Yes HPI Comments Details: The patient is presenting post hysteroscopy D&C no complaints minimal vaginal bleeding no feverishness chills . The patient has been complaining of pelvic cramping over the last few months no associated urinary or GI symptoms and did not improve after hysteroscopic polypectomy. Intraoperative finding= endometrial polyp The pathology showed the following: A. Endometrium, polypectomy: Fragments of endometrial polyp; no atypia identified. B. Endometrium, curettage: - Fragments of endometrial polyp. - Background inactive endometrium. - No atypia identified PFSH Medical History Elevated cholesterol Full dentures Low back pain COVID-19 vaccine series completed Asthma Hypertension Palpitations Primary osteoarthritis of right knee Diabetes mellitus Obesity Erosive osteoarthritis Primary osteoarthritis of knees, bilateral Surgical History History of bladder surgery History of total bilateral knee replacement Hx of colonoscopy Hx of reduction mammoplasty Hx of tonsillectomy History of H/O Spinal surgery Family History Mother Hx of acute arthritis Father History of Parkinson's disease Social History Household Members Other:: Daughter Housing: House Are you a primary manager career to a significant other at home: No Do you presently have visiting nurse or other home services: No Alcohol intake: never Patient Tobacco Use Status: Never used Tobacco Current occupational status: disabled Current occupation: rt handed Sexual orientation: Straight/Heterosexual Gender identity: Female Review of Systems Const All systems reviewed & are unremarkable except as noted in HPI and below Reports as per HPI and Reports no additional complaints GI Reports no additional complaints Reports no additional complaints Assessment & Plan Assessment & Plan (1) Postmenopausal bleeding: Comment: Thick endometrium and endometrial polyp by ultrasound status post hysteroscopic polypectomy Code(s): N95.0 - Postmenopausal bleeding Category: Medical Plan: Discussed with the patient the results of the intraoperative findings showing endometrial polyp, inactive endometrial pathology and benign polyp. Discussed with the patient the sensitivity, specificity, positive and negative predictive value, of D and C in detecting endometrial pathology including but not limited to endometrial hyperplasia, cancer and other pathology; instructed the patient to call in case vaginal bleeding bleeding recurs, the next step will be to proceed with further endometrial sampling evaluation to rule out endometrial pathology. All questions answered and the patient verbalized understanding and agreed with the plan. (2) Pelvic cramping: Code(s): R10.2 - Pelvic and perineal pain Category: Medical Plan: Urine dip done in the office was negative. Ultrasound of the pelvis done but no official report yet, unofficial finding shows bilateral ovaries were not seen. Will order CT scan of pelvis to rule out pelvic pathology as a cause of the pain. Instructions given the patient to schedule an pelvic ultrasound and CT scan a follow-up appointment. All questions answered, the patient verbalized understanding Orders: Orders Creatinine Today D25.9 - Leiomyoma of uterus, unspecified, R10.2 - Pelvic and perineal pain CT abdomen pelvis wo/w IV con Today R10.2 - Pelvic and perineal pain Blood Urea Nitrogen Today D25.9 - Leiomyoma of uterus, unspecified, R10.2 - Pelvic and perineal pain Coding Level of Care Code Est Pt Level 3 (93436) Diagnoses Postmenopausal bleeding N95.0 Pelvic cramping R10.2
[2024-07-03 11:21] VITALS: BMI 35.1
--- OUTSIDE RECORDS SUMMARY | 2024-07-03 11:41 | XMS_ITS | Continuity of Care Document ---
Author Organization [facility] Address [address] [place] [address] Phone Care Team Providers Care It Infrastructure Architect Name Role Phone Waldo MADDOX FACS RVT Shiraz CHERY Unavailable Unavailable Allergies, Adverse Reactions, Alerts Substance Reaction Status Criticality latex Active No Information Medications Medication Instructions Dosage Effective Dates (start - stop) Status Comments lidocaine-prilocaine 2.5 %-2.5 % topical cream apply 2 hours before procedures for Pain - Active Procedures Procedure Date Office/Outpt E&M Established 15 Mins Oct Duplex Scan-extrem Veins; [facility]/ 23 Endovenous Laser, 1st Vein Endovenous Laser, 1st Vein Endovenous laser vein addon Duplex Scan-extrem Veins; [facility]/ 23 Phleb Veins - Extrem - To Endovenous Laser, 1st Vein Endovenous laser vein addon Advance Directives Directive Yes / No Effective Date File Name No Information Encounters Encounter Description Practice Location Reason(s) For Visit Diagnoses Date Provider Providers Copied on Encounter Office/Outpt E&M Established 15 Mins [facility], [address] [place] [address] [address], [id number], [place] tel:[phone] [facility] Venous insufficiency (chronic) (peripheral) 3 Waldo MADDOX FACS RVT MIRI Rapp. [address] [place] [address], [place], [address], [place]. tel:[phone] Referring Provider: Rebekah Guevara, [address] [place], [address]. tel:[phone] [facility], [address] [place] [address] [address], [id number], [place] tel:[phone] [facility] [place] [facility] En[facility]tr for f/u exam aft trtmt for cond oth than malig neoplmVenous insufficiency (chronic) (peripheral) 3 Waldo MADDOX FACS RVT MIRI Rapp. [address] [place] [address], [place], [address], [place]. tel:[phone] Referring Provider: Rebekah Guevara, [address] [place] [address], [address]. tel:[phone] [facility], [address] [place] [address] [address], [id number], [place] tel:[phone] [facility] [place] [facility] Venous insufficiency (chronic) (peripheral) 3 Waldo MADDOX FACS RVT MIRI Rapp. [address] [place] [address], [place], [address], [place]. tel:[phone] Referring Provider: Rebekah Guevara, [address] [place] [address], [address]. tel:[phone] [facility], [address] [place] [address] [address]ep [place], [id number], [place] tel:[phone] [facility] [place] [facility] Venous insufficiency (chronic) (peripheral) 3 Waldo MADDOX FACS RVT MIRI Rapp. [address] [place] [address], [place] [address], [place], [address], [place]. tel:[phone] Referring Provider: Rebekah Guevara, [address] [place], [address]. tel:[phone] [facility], [address] [place] [address] [address], [id number], [place] tel:[phone] [facility] [place] [facility] No Information 3 Waldo Rapp. [address] [facility], [address] [facility], [place], [address], [place]. tel:[phone] Referring Provider: Rebekah Guevara, [address] [place] [address], [address]. tel:[phone] [facility], [address] [place] [address] [address]ep [place], [id number], [place] tel:[phone] [facility] [place] [facility] En[facility]tr for f/u exam aft trtmt for cond oth than malig neoplmVenous insufficiency (chronic) (peripheral) 3 Waldo Rapp. [address] [place] [address], [place] [address], [place], [address], [place]. tel:[phone] Referring Provider: Rebekah Guevara, [address] [place] [address], [address]. tel:[phone] [facility], [address] [place] [address] [address], [id number], [place] tel:[phone] [facility] [place] [facility] Varicose veins of left lower extremities w oth complications 3 Waldo Rapp. [address] [place] [address], [facility] [address], [place], [address], [place]. tel:[phone] Referring Provider: Rebekah Guevara, [address] [place], [address]. tel:[phone] [facility], [address] [place] [address] [address]ep [place], [id number], [place] tel:[phone] [facility] [place] [facility] [place] Venous insufficiency (chronic) (peripheral) 3 Waldo Rapp. On license of [facility], [address], [place], [address], [place]. [phone] Referring Provider: Rebekah Guevara, [address] [place], [address]. tel:[phone] Family History Family Member Type Diagnosis Age At Onset No Information Payers Payer name Insurance type Covered alliance party ID Authorlitzy funes(s) Medical Assistance DANIEL [id number] Social History Type Description Quantity Date Captured Comments Alcohol Use Details Caffeine Use Details Unknown Tobacco Use Status Never smoked tobacco 2022 Smoking Status Never smoker Non-Smoking Tobacco Use Details : No Details Available : No Details Available Sex Female Chief Complaint And Reason For Visit No Information Reason For Referral Reason For Referral No Information History Of Present Illness Encounter Date Complaint History Of Prese nt Illness No Information Functional Status Date Functional Assessmen t No Information Instructions Date Instruction Additional Infor mation Patient education booklet given Related to Venous Insufficiency (Chronic / Peripheral) Assessments Type Assessment Date assessment Venous insufficiency (chronic) ( peripheral) Patient Care Teams Name Effective Dates (start - stop) Status Members No Information
== END 2024-07-03 11:41 | disposition home or self-care (01) ==
LOC: HO.HWS 11:18
PROVIDERS: PCP Internal Medicine; Visit Provider Obstetrics & Gynecology
DX: N95.0 Postmenopausal bleeding (principal); R10.2 Pelvic and perineal pain
CPT/HCPCS: 99213

== ENCOUNTER 2024-07-26 15:16 | Outpatient (AMB) | payer MEDICAID, SELFPAY ==
[2024-07-26 15:22] VITALS: BP 134/74; PULSE 82; BMI 36.3
--- NOTE | 2024-07-26 15:22 | A.OFFVIS_ITS ---
Vital Signs 07/26/24 15:22 Height 5 ft 2 in Weight 198 lb 6.656 oz BMI 36.3 BP 134/74 Blood Pressure Location Lt brachial Position Sitting Pulse 82 Intake Visit Reasons: Acid reflux Sue patient 30 mins Intake Note: Rhonda presents in office today for acid reflux. CC: Patient c/o having to wipe constantly after BMs and still is never completely cleaned. Also, for about 3 months she has been having pain from her vagina and rectum at the same time and when she needs to have a BM the pain is worst. She states that her cellular equipment installer and urologist could not find a reason for this pain and advised her to see GI. She reports that last month she had about 2 weeks of having to defecate x7 times daily. She also c/o lower back pain. Allergies No Known Drug Allergies Allergy (Unknown, Verified 07/26/24 15:29) none pineapple [PINEAPPLE] Allergy (Unknown, Verified 07/03/24 11:21) TONGUE SWELLS latex Allergy (Verified 07/03/24 11:21) Unknown HPI HPI Acid reflux Sue patient 30 mins: Details: 63-year-old female here for a follow-up for GERD. In the past she was followed by Deirdre Castellon. Her primary care provider is [facility]. PMX Asthma Obesity Diabetes Hypertension High cholesterol Rosacea Osteoarthritis of the hands Osteoarthritis of the knees Varicose veins History of tubular adenoma Fatty liver * SURGICAL HISTORY Bladder stimulator implant Bilateral total knee replacements Reduction mammoplasty Tonsillectomy Lumbar spine surgery Colonoscopy-2020; Michel= 2 TA is and 1 hyperplastic polyp History of bariatric balloon placed in [place] * ALLERGIES Pineapple Latex * [employer] LABS: Laboratory Tests 11/01/23 01/06/24 07/03/24 15:30 12:38 12:03 WBC 9.4 Hgb 12.8 Hct 37.5 Plt Count 312 Estimated GFR 56 Total Bilirubin 0.4 AST 20 ALT 16 Alkaline Phosphatase 76 TSH 1.04 TODAY'S VISIT Sinhala #Zeinab Live With review of the chart it appears she has here not for management of chronic GERD but for her repeat colonoscopy that was called for for 3 years after 3 polyps removed in 2020 although only to move them were TA is. She says I have 2 concerns she is having multiple daily BM's but she will have fecal smearing despite copious cleaning. This has been ongoing for years. She does not feel she that she is constipated, because of the multiple daily movements. I explain, however, that this can be a sign of IBS-C with incomplete evacuation, but the ddx also could include rectal incompetence or even prolapse. She eats fruits, but otherwise her diet is mostly low fiber carbs and meats. She says that when she was on fiber in the past it was not helpful. She has had 3 mos of pressure in the rectal and vaginal area, that at times is stabbing briefly. She has run the problem by her urologist and her HUNTER but they said it has nothing to do with us ask the gastro. I ask if they ever did an exam for a prolapse - she has had 2 surgeries for vaginal prolapse. Her pain started after the most recent one done in 01/2024 at [facility]. 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 Her asthma is well controlled and she denies any cardiac problems. There are no prior problems with anesthesia or sedation. There are no infectious disease problems. ROV next available. [facility] Medical History Hypertension Primary osteoarthritis of left knee Primary osteoarthritis of right knee Hemorrhoids Diverticulosis large intestine w/o perforation or abscess w/o bleeding Encounter for screening colonoscopy Preoperative cardiovascular examination HART (dyspnea on exertion) Epigastric pain Chronic cough Gastric outlet obstruction Complications of bariatric procedures Environmental allergies Pre-syncope Encounter for well woman exam with routine gynecological exam Postmenopausal bleeding Elevated cholesterol Full dentures Low back pain COVID-19 vaccine series completed Asthma Palpitations Diabetes mellitus Obesity Erosive osteoarthritis Primary osteoarthritis of knees, bilateral Surgical History H/O bariatric surgery Status post total right knee replacement History of bladder surgery History of total bilateral knee replacement Hx of colonoscopy Hx of reduction mammoplasty Hx of tonsillectomy History of H/O Spinal surgery Family History Mother Hx of acute arthritis Father History of Parkinson's disease Social History Household Members Other:: Daughter Housing: House Are you a primary senior resident care director to a significant other at home: No Do you presently have visiting nurse or other home services: No Alcohol intake: never Patient Tobacco Use Status: Never used Tobacco Current occupational status: disabled Current occupation: rt handed Sexual orientation: Straight/Heterosexual Gender identity: Female Review of Systems Const Denies fatigue, Denies fever(s), Denies night sweats, Denies poor appetite and Denies weight loss ENT Reports Normal hearing present, Denies dental pain, Denies dysphagia, Denies hearing loss, Denies mouth pain, Denies odynophagia, Denies throat swelling, Denies tongue swelling and Reports other (Dentition adequate) Card Reports no additional complaints Resp Reports no additional complaints GI Details: Rectal spasm and smearing Denies abdominal pain, Denies melena, Denies bloating, Denies hematochezia, Reports constipation, Denies GI cramping, Denies dysphagia, Denies excessive flatus, Denies early satiety, Denies heartburn, Denies diarrhea, Denies nausea, Denies odynophagia, Denies vomiting and Denies hematemesis Reports pelvic pain (Suprapubic midline) Musc Reports back pain Skin/Breast Denies pruritus, Denies lesions, Denies rash and Denies jaundice Neuro Reports Normal hearing present and Denies Abnormal speech present Endo Denies fatigue Aller/Immun Denies throat swelling and Denies tongue swelling Physical Exam Vital Signs: Last Vital Signs Pulse 82 07/26/24 15:22 BP 134/74 07/26/24 15:22 BMI result Body Mass Index 36.3 Const General: cooperative, no acute distress, well developed and well groomed Nutritional Appearance: well nourished and obese Orientation/consciousness: oriented to person, oriented to place and oriented to time Limitations: language barrier HEENT Head: Yes normocephalic and Yes atraumatic Eyes General: appearance normal, both eyes and all related structures Pupils: Equal, round and reactive pupils present Neck Neck: Yes normal visual inspection and Yes no lymphadenopathy Thyroid: Thyroid normal Resp Effort & Inspection: normal respiratory effort and able to speak in complete sentences Auscultation: clear to auscultation bilaterally Cardio Rate: regular rate Rhythm: regular rhythm Heart sounds: Normal, physiologic split S2 sound present Peripheral pulses: radial pulses present and posterior tibial pulses present GI Inspection: No distended, Yes Abdominal panniculus present and Yes obesity Palpation (GI): Soft to palpation, Tenderness to palpation present (GI) (Suprapubic), no guarding, not rigid and No hepatosplenomegaly present Percussion: Yes normal to percussion Auscultation: normal bowel sounds Rectal Exam - Female: deferred Skin General skin exam: no rashes or lesions noted, turgor normal, skin not dry, no jaundice, No spider nevi and no striae Rashes: no rashes Nails: normal Neuro General: oriented to person, oriented to place and oriented to time Cranial nerves: Yes Equal, round and reactive pupils present and Yes Normal hearing present Speech: No Abnormal speech present Extrem General: Yes normal to inspection, No clubbing, No cyanosis and No edema Psych Appearance: grossly normal and well kempt Mental Status: mental status grossly normal Speech and movement: Normal speech and movement present Affect: normal affect Attitude: cooperative Thought process: Normal thought process present and not confabulating Thought content: Normal thought content present Insight: Fair insight present (Psych) and Limited insight present (Psych) Judgement: Fair judgement present (Psych) and Limited judgement present (Psych) Results Reviewed Results Reviewed: Laboratory Tests 11/01/23 01/06/24 07/03/24 15:30 12:38 12:03 WBC 9.4 Hgb 12.8 Hct 37.5 Plt Count 312 Estimated GFR 56 Total Bilirubin 0.4 AST 20 ALT 16 Alkaline Phosphatase 76 TSH 1.04 Review of notes from [facility] year old gynecology 03/13/2024 Rhonda is a 63 year old presenting for f/u of urge incontinence.? Stratus used for interpretation. She's taking Myrbetriq?25 mg.? [address] Ivey a month ago that it was working well but today says she doesn't have urinary frequency but UUI.? She's using vaginal estrogen. 11/2021 she had InterStim implanted.? She's not adjusted the program since that time per pt. She underwent?posterior repair?and perineorrhaphy?on 08/19/[address] Mccauley.?? Previously, she underwent?Rectocele repair, perineorrhaphy, Obtryx midurethral sling,?cystoscopy on 01/28/23. She denies vaginal bulge.? She denies LAUREN but thought the surgery would resolve all incontinence.? She reports UUI.?? Assessment & Plan Assessment & Plan (1) Adenomatous colon polyp: Comment: Repeat asymptomatic colonoscopy- 3 years-2023 Code(s): D12.6 - Benign neoplasm of colon, unspecified Category: Medical (2) Irritable bowel syndrome with constipation: Code(s): K58.1 - Irritable bowel syndrome with constipation Category: Medical (3) Rectal spasm: Code(s): K59.4 - Anal spasm Category: Medical Plan Sinhala #Zeinab Live With review of the chart it appears she has here not for management of chronic GERD but for her repeat colonoscopy that was called for for 3 years after 3 polyps removed in 2020 although only to move them were TA is. She says I have 2 concerns she is having multiple daily BM's but she will have fecal smearing despite copious cleaning. This has been ongoing for years. She does not feel she that she is constipated, because of the multiple daily movem ents. I explain, however, that this can be a sign of IBS-C with incomplete evacuation, but the ddx also could include rectal incompetence or even prolapse. She eats fruits, but otherwise her diet is mostly low fiber carbs and meats. She says that when she was on fiber in the past it was not helpful. She has had 3 mos of pressure in the rectal and vaginal area, that at times is stabbing briefly. She has run the problem by her urologist and her HUNTER but they said it has nothing to do with us ask the gastro. I ask if they ever did an exam for a prolapse - she has had 2 surgeries for vaginal prolapse. Her pain started after the most recent one done in 01/2024 at [facility]. 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 She has a CT scan that was ordered by her cellular equipment installer and I would also be curious to see this to see if there is any gross evidence of prolapse from her prior surgery at [facility]. This was apparently done to address her urinary issues and in the past she has had a bladder stimulator. Her asthma is well controlled and she denies any cardiac problems. There are no prior problems with anesthesia or sedation. There are no infectious disease problems. ROV next available. Orders: Orders Colonoscopy - GI Use Only Today D12.6 - Benign neoplasm of colon, unspecified Medications: New sennosides (Senna Laxative) 17.2 mg (2 x 8.6 mg) PO BEDTIME 60 tabs 6RF K58.1 - Irritable bowel syndrome with constipation dicyclomine 20 mg PO BID 30 days 60 tabs 3RF K58.1 - Irritable bowel syndrome with constipation, K59.4 - Anal spasm peg 3350-electrolytes 236-22.74-6.74 -5.86 gram (Golytely) until fecal effluent is clear; do not exceed a total volume of 2,000 mL 240 mL PO Q10M 1 day 4,000 mL 0RF Z12.11 - Encounter for screening for malignant neoplasm of colon bisacodyl (Dulcolax (bisacodyl)) 10 mg (2 x 5 mg) PO BEDTIME 2 days 4 tabs 0RF Coding Level of Care Code Est Pt Level 4 (52946) Diagnoses Adenomatous colon polyp D12.6 Irritable bowel syndrome with constipation K58.1 Rectal spasm K59.4 Time Spent (min) 38
--- OUTSIDE RECORDS SUMMARY | 2024-07-26 16:49 | XMS_ITS | Continuity of Care Document ---
Author Organization [facility] Address [address] [place] [address] Phone Care Team Providers Care Senior Data Integration Developer Name Role Phone Waldo MADDOX FACS RVT Shiraz CHERY Unavailable Unavailable Allergies, Adverse Reactions, Alerts Substance Reaction Status Criticality latex Active No Information Medications Medication Instructions Dosage Effective Dates (start - stop) Status Comments lidocaine-prilocaine 2.5 %-2.5 % topical cream apply 2 hours before procedures for Pain - Active Procedures Procedure Date Office/Outpt E&M Established 15 Mins Oct Duplex Scan-extrem Veins; [facility]/ 23 Endovenous Laser, 1st Vein Endovenous Laser, [...] E&M Established 15 Mins [facility], [address] [place] [address] Dr Adan [address] 1000Pradeep [place], [id number], [place] tel:[phone] [facility] Venous insufficiency (chronic) (peripheral) 3 Waldo MADDOX FACS RVT MIRI Rapp. [address] [place] [address], [place], [address], [place]. tel:[phone] Referring Provider: Rebekah Guevara, [address] [place], [address]. tel:[phone] [facility], [address] [place] [address] [address]Pradeep [place], [id number], [place] tel:[phone] CVR - [place] Encntr for f/u exam aft trtmt for cond oth than malig neoplmVenous insufficiency (chronic) (peripheral) 3 Waldo MADDOX FACS RVT MIRI Rapp. [address] [place] [address], [place], [address], [place]. tel:[phone] Referring Provider: Rebekah Guevara, [address] [place] [address], [address]. tel:[phone] [facility], [address] [place] [address] [address] 1000Pradeep [place], [id number], [place] tel:[phone] [facility] - [place] Venous insufficiency (chronic) (peripheral) 3 Waldo MADDOX FACS RVT MIRI Rapp. [address] [place] [address], [place], [address], [place]. tel:[phone] Referring Provider: Rebekah Guevara, [address] [place] [address], [address]. tel:[phone] [facility], [address] [place] [address] [address]Pradeep MD, [id number], [place] tel:[phone] [facility] [place] [facility] [place] Venous insufficiency (chronic) (peripheral) 3 Waldo MADDOX FACS RVT MIRI Rapp. [address] [place] [address], [place] [address], [place], [address], [place]. tel:[phone] Referring Provider: Rebekah Guevara, [address] [place], [address]. tel:[phone] [facility], [address] [place] [address] [address]Pradeep [place], [id number], [place] tel:[phone] [facility] [place] No Information 3 Waldo Rapp. [address] [facility], Suite [facility], [place], [address], [place]. tel:[phone] Referring Provider: Rebekah Guevara, [address] [place] [address], [address]. tel:[phone] [facility], [address] [place] [address] [address] 1000Pradeep MD, [id number], [place] tel:[phone] [facility] - [place] Encntr for f/u exam aft trtmt for cond oth than malig neoplmVenous insufficiency (chronic) (peripheral) 3 Waldo Rapp. [address] [place] [address], [place] [address], [place], [address], [place]. tel:[phone] Referring Provider: Rebekah Guevara, [address] [place] [address], [address]. tel:[phone] [facility], [address] [place] [address] [address]Pradeep MD, [id number], [place] tel:[phone] [facility] [place] Varicose veins of left lower extremities w oth complications 3 Waldo Rapp. [address] [place] [address], [facility] [address], [place], [address], [place]. tel:[phone] Referring Provider: Rebekah Guevara, [address] [place], [address]. tel:[phone] [facility], [address] [place] [address] [address]Pradeep MD, [id number], [place] tel:[phone] [facility]R - [place] Venous insufficiency (chronic) (peripheral) 3 Waldo Rapp. [facility], [address], [place], [address], [place]. [phone] Referring Provider: Rebekah Guevara, [address] [place], [address]. tel:[phone] Family History Family Member Type Diagnosis Age At Onset No Information Payers Payer name Insurance type Covered democrat ID Authorlitzy funes(s) Medical Assistance DANIEL [id number] Social History Type Description Quantity Date Captured [...]
== END 2024-07-26 17:39 ==
PROVIDERS: PCP Internal Medicine; Visit Provider Nurse Practitioner
DX: D12.6 Benign neoplasm of colon, unspecified (principal); K58.1 Irritable bowel syndrome with constipation; K59.4 Anal spasm
CPT/HCPCS: 99214

== ENCOUNTER → 2024-07-26 15:16 | Outpatient (BNVA) | payer MEDICAID, SELFPAY | PROVIDERS: PCP Internal Medicine; Visit Provider Nurse Practitioner | DX: K58.1 Irritable bowel syndrome with constipation (principal); K59.4 Anal spasm; D12.6 Benign neoplasm of colon, unspecified | CPT/HCPCS: 99212 ==

== ENCOUNTER 2024-08-16 13:35 | Outpatient (AMB) | payer MEDICAID, SELFPAY ==
--- NOTE | 2024-08-16 13:35 | MHC.OFFVIS ---
Intake Visit Reasons: CT scan and u/s results Plug Shaper Hand Required: Yes Plug Shaper Hand Language: Roller Leveler Operator Services: Plug Shaper Hand Present ([employer]) Plug Shaper Hand Name: Yandy [id number] Information Interpreted: clinical only Pharmacy Operations Coordinator: Pharmacy Operations Coordinator Present (Joan) Accompanied by: Self / Same As Patient Allergies No Known Drug Allergies Allergy (Unknown, Verified 08/16/24 13:44) none pineapple [PINEAPPLE] Allergy (Unknown, Verified 08/16/24 13:44) TONGUE SWELLS latex Allergy (Verified 08/16/24 13:44) Unknown HPI Comments Details: Presenting for ultrasound follow-up regarding her pelvic cramping. The patient is still complaining of mild pelvic cramping no associated vaginal bleeding. P Pelvic ultrasound done in 07/10 showed the followin. Limited visualization due to bowel gas. Visualization further limited as patient unable to completely empty bladder, although 2 attempts were made to empty bladder per welcome center agent's statement. 2. Previously identified fibroid was not visualized today, possibly because of limited visualization. 3. Bilateral ovaries were not visualized. 4. Severely limited visualization of the endometrium with imaged segment measuring approximately 6 mm in thickness, previously 7 mm. Previously identified possible 0.6 cm endometrial polyp is difficult to visualize today, possibly because of severely limited visualization. Correlation with gynecologic consultation recommended to determine further management. CT scan ordered not done yet [facility] Medical History Hypertension Primary osteoarthritis of left knee Primary osteoarthritis of right knee Hemorrhoids Diverticulosis large intestine w/o perforation or abscess w/o bleeding Encounter for screening colonoscopy Preoperative cardiovascular examination HART (dyspnea on exertion) Epigastric pain Chronic cough Gastric outlet obstruction Complications of bariatric procedures Environmental allergies Pre-syncope Encounter for well woman exam with routine gynecological exam Postmenopausal bleeding Elevated cholesterol Full dentures Low back pain COVID-19 vaccine series completed Asthma Palpitations Diabetes mellitus Obesity Erosive osteoarthritis Primary osteoarthritis of knees, bilateral Surgical History H/O perineoplasty H/O bariatric surgery Status post total right knee replacement History of bladder surgery History of total bilateral knee replacement Hx of colonoscopy Hx of reduction mammoplasty Hx of tonsillectomy History of H/O Spinal surgery Family History Mother Hx of acute arthritis Father History of Parkinson's disease Social History Household Members Other:: Daughter Housing: House Are you a primary memory care program director to a significant other at home: No Do you presently have visiting nurse or other home services: No Alcohol intake: never Patient Tobacco Use Status: Never used Tobacco Current occupational status: disabled Current occupation: rt handed Sexual orientation: Straight/Heterosexual Gender identity: Female Review of Systems Const All systems reviewed & are unremarkable except as noted in HPI and below Reports as per HPI and Reports no additional complaints GI Reports no additional complaints Reports no additional complaints Assessment & Plan Assessment & Plan (1) Pelvic cramping: Code(s): R10.2 - Pelvic and perineal pain Category: Medical Plan: Discussed with the patient the results the ultrasound showed thickened endometrium but with the recent hysteroscopy D&C polypectomy and no evidence of vaginal bleeding the findings are not concerning. Since pelvic ultrasound had limited visualization, will expedite the CT scan and schedule a follow-up appointment within 1-2 weeks. Instructions given the patient to call in case of fever above 100.4, persistent or worsening of her pain, nausea or vomiting. All questions answered, the patient verbalized understanding Coding Level of Care Code Est Pt Level 3 (61178) Diagnoses Pelvic cramping R10.2
--- OUTSIDE RECORDS SUMMARY | 2024-08-16 17:27 | XMS_ITS | Encounter Summary ---
Author Organization [employer] Address [address] [place] [address] [address]t [place] [address] Care Team Providers Care Registered Dietetic Technician Name Role Phone Zeinab Sykes MD Primary Care Provider + Reason for Visit * Reason Onset Date Comments Med Refill 08/03/2024 Encounter Details Date Type Department Care Team (Late st Contact Info) Description 08/03/2024 Refill [facility] [address] [place], [place] [phone] Zeinab Sykes MD [address] [place] [address] Other intervertebral disc displacement, lumbar region Social History Tobacco Use Types Packs/Day Years Used Date Smoking Tobacco: Never Passive Smoke Exposure: Never Smokeless Tobacco: Never Alcohol Use Standard Drinks/Week Comments Not Currently 0 (1 standard drink = 0.6 oz pure alcohol) very limited/occasionally/holidays Depression Answer Date Recorded Patient Health Questionnaire-9 Score 18 01/02/2024 Patient Health Questionnaire-9 Score 18 01/02/2024 Last PHQ-9: Questionnaire Data Not on file 0 01/02/2024 Housing Stability Answer Date Recorded What is your housing situation today? I have tessa sing 12/21/[address] you li ve. Do you have problems with any of the following? Mold 12/21/2023 Food Insecurity Answer Date Recorded Within the past 12 months, y ou worried that your food would run out before you got money to buy more: Sometimes True 2023 Within the past 12 months,th e food you bought just didn't last and you didn't have enough money to get more: Sometimes True 12/21/2023 Transportation Answer Date Recorded In the past 12 months, has l ack of transportation kept you from medical appts, meetings, work or from getting things needed for daily living? No 12/21/2023 Utilities Answer Date Recorded In the past 12 months, has t he electric, gas, oil or water company threatened to shut off services in your home? No 12/21/2023 Depression Answer Date Recorded Patient Health Questionnaire-2 Score 6 01/02/2024 Comments No Sex and Gender Information Value Date Recorded Sex Assigned at Female 05/17/2022 10:32 AM EDT Legal Sex Female 10:32 AM EDT Gender Identity Female 05/17/2022 10:32 AM EDT Sexual Orientation Straight 05/17/2022 10 :32 AM EDT documented as of this encounter Miscellaneous Notes * Telephone Encounter - Kirstie Morrison - 08/03/2024 10:56 AM EST TC from pt requesting medication refill. Medications needing refill : oxyCODONE-acetaminophen (Percocet) 5-325 MG tablet () To be sent to: [facility] documented in this encounter Plan of Treatment Upcoming Encounters Date Type Department Care Team (Late st Contact Info) Description 09/25/2024 9:45 AM EDT Office Visit [facility] [address] [place] [phone] 10/09/2024 11:45 AM EDT Office Visit [facility] [address] [place] [phone] Zeinab Sykes MD [address] [place] [phone] documented as of this encounter Goals Goal Patient Goal Type Associated Problems Recent Progress Patient-Stated? Author Patient will manage their medication General On track( 023 11:18 AM EDT) No Citlali Armando, Anoop Note: Began medboxes. Goal achieved 11/19/22. Patient graduated from [facility]. documented as of this encounter Visit Diagnoses Diagnosis Other intervertebral disc displacement, lumbar region documented in this encounter Additional Health Concerns Assessment Noted Time PHQ-9 Depression Total Score: 18 024 1:46 PM EDT documented as of this encounter Care Teams Registered Dietetic Technician Relationship Specialty Start Date End Date Zeinab Sykes MD [address] [place] [phone] PCP - General Internal Medicine 01/02/24 Tomeka Martins Diesel Maintenance ElectricianPolisher Hand 10/27/23 documented as of this encounter
--- OUTSIDE RECORDS SUMMARY | 2024-08-16 17:27 | XMS_ITS | Encounter Summary ---
Author Organization [facility] [facility] Address [address] [place] [address] 7t [place] [address] Care Team Providers Care Computer Tech Name Role Phone Oralia Aguila MD Primary Care Provider [phone] Zeinab Sykes MD Primary Care Provider + Reason for Visit * Reason Comments Med Refill Encounter Details Date Type Department Care Team (Late Contact Info) Description 07/06/2023 Refill [facility] [address] [place] [address] Bryn Franklin MD [address] [place] [address] Social History Tobacco Use Types Packs/Day Years Used Date Smoking Tobacco: Never Passive Smoke Exposure: Never Smokeless Tobacco: Never Alcohol Use Standard Drinks/Week Comments Not Currently 0 (1 standard drink = 0.6 oz pure alcohol) very limited/occasionally/holidays Comments Unknown Sex and Gender Information Value Date Recorded Sex Assigned at Female 05/17/2022 10:32 AM EDT Legal Sex Female 10:32 AM EDT Gender Identity Female 05/17/2022 10:32 AM EDT Sexual Orientation Straight 05/17/2022 10 :32 AM EDT documented as of this encounter Plan of Treatment Upcoming Encounters Date Type Department Care Team (Late Contact Info) Description 09/25/2024 9:45 AM EDT Office Visit [facility] [address] [place] [address] [phone] 10/09/2024 11:45 AM EDT Office Visit [facility] [address] [place] [address] [phone] Zeinab Sykes MD [address] [place] [address] documented as of this encounter Goals Goal Patient Goal Type Associated Problems Recent Progress Patient-Stated? Author Patient will manage their medication General On track( 023 11:18 AM EDT) Citlali Ocampo, Anoop Note: Began medboxes. Goal achieved 11/19/22. Patient graduated from [facility]. documented as of this encounter Visit Diagnoses Not on filedocumented in this encounter Care Teams Computer Tech Relationship Specialty Start Date End Date Oralia Aguila MD [address] [place] [phone] PCP - General Family Medicine 04/26/23 01/01/24 Zeinab Sykes MD [address] [place] [phone] PCP - General Internal Medicine 01/02/24 Tomeka Martins Counseling AideYard Crane Operator 10/27/23 documented as of this encounter
--- OUTSIDE RECORDS SUMMARY | 2024-08-16 17:27 | XMS_ITS | Encounter Summary ---
Author Organization [employer] [facility] Address [address] [place] [address] [address]t [place] [address] Care Team Providers Care Director Bioinformatics Name Role Phone Evelyn Ledesma Primary Care Provider [phone] Oralia Aguila MD Primary Care Provider [phone] Zeinab Sykes MD Primary Care Provider + Reason for Visit * Reason Onset Date Comments Prior Authorization 12/28/2022 Encounter Details Date Type Department Care Team (Late st Contact Info) Description 12/28/2022 Telephone [facility] [address] [place] [phone] Evelyn Ledesma FNP [address] [place] [address] [place] [address] Prior Authorization Social History Tobacco Use Types Packs/Day Years [...] Orientation Straight 05/17/2022 10 :32 AM EDT COVID-19 Exposure Response Date Recorded In the last 10 days, have yo u been in contact with someone who was confirmed or suspected to have Coronavirus/COVID-19? No / Unsure 12/29/2022 9:46 AM EDT documented as of this encounter Miscellaneous Notes * Telephone Encounter - Enedina Richmond RN - 12/31/2022 10:43 AM EDT T/C placed to pt via [employer] Cutter Zeinab #[id number]. Advised of message from pcp re: lab results. Pt verbalized understanding. Reports agreement with POC and Nephrology referral. Advised pt she willmost likely receive referral by mail. * Telephone Encounter - Enedina Richmond RN - 12/31/2022 10:43 AM EDT ----- Message from JERRY Nunes sent at 12/31/2022 9:17 AM EDT ----- Please notify pt that her: Your kidney function has worsened a little since 10/20/22 This means your kidneys are not working as well as they should. You should avoid ibuprofen, aleve, and all other NSAIDS. Do you have a welder and fitter yet? If not, your PCP would like to refer you for an assessment. Your kidney function might have been the reason behind your long QT interval or the percocet. Thereis nothing we need to change we just need to monitor. And if you start having chest pain or palpitations go to ED Also your Mg was normal * Telephone Encounter - Nolvia Alcazar - 12/28/2022 10:18 AM EDT THOMAS Emery from [employer] requesting XL pull ups and disposable under pads . States faxed request couple days ago and have not gotten a response . Informs paper work 12/29/22. Please call to clarify at phone # [phone] . documented in this encounter Plan of Treatment Upcoming Encounters Date Type Department Care Team (Late st Contact Info) Description 09/25/2024 9:45 AM EDT Office Visit [facility] [address] [place] [phone] 10/09/2024 11:45 AM EDT Office Visit [facility] [address] [place] [address] Zeinab Sykes MD [address] [place] [address] documented as of this encounter Goals Goal Patient Goal Type Associated Problems Recent Progress Patient-Stated? Author Patient will manage their medication General On track( 023 11:18 AM EDT) Citlali Ocampo, Anoop Note: Began medboxes. Goal achieved 11/19/22. Patient graduated from [facility]. documented as of this encounter Visit Diagnoses Not on filedocumented in this encounter Care Teams Director Bioinformatics Relationship Specialty Start Date End Date Evelyn Ledesma FNP PCP - General Family Medicine 03/15/22 04/25/23 Oralia Aguila MD [address] [place] [phone] PCP - General Family Medicine 04/26/23 01/01/24 Zeinab Sykes MD [address] [place] [phone] PCP - General Internal Medicine 01/02/24 Tomeka Martins Single Spindle Screw Machine OperatorCocoa Powder Mixer Operator 10/27/23 documented as of this encounter
--- OUTSIDE RECORDS SUMMARY | 2024-08-16 17:27 | XMS_ITS | Encounter Summary ---
Author Organization [employer] Address [address] [facility] [address]t [place] [address] Care Team Providers Care Pickers Material Handlers Name Role Phone Zeinab Sykes MD Primary Care Provider + Encounter Details Date Type Department Care Team (Latest Contact Info) Description 08/14/2024 Travel Social History Tobacco Use Types Packs/Day Years Used Date Smoking Tobacco: Never Passive Smoke Exposure: Never Smokeless Tobacco: Never Alcohol Use Standard Drinks/Week Comments Not Currently 0 (1 standard drink = 0.6 oz pure alcohol) very limited/occasionally/holidays Depression Answer Date Recorded Patient Health Questionnaire-9 Score 22 08/15/2024 Patient Health Questionnaire-9 Score 22 08/15/2024 Last PHQ-9: Questionnaire Data Not on file 0 08/15/2024 Housing Stability Answer Date Recorded What is your housing situation today? I have tessa de la rosa 12/21/[address] you li [...] Date Recorded Patient Health Questionnaire-2 Score 6 08/15/2024 Comments No Sex and Gender Information Value [...] Description 09/25/2024 9:45 AM EDT Office Visit [facility] [address] [place] [address] [phone] 10/09/2024 11:45 AM EDT Office Visit [facility] [address] [place] [address] [phone] Zeinab Sykes MD [address] [place] [address] documented as of this encounter Goals Goal Patient Goal Type Associated Problems Recent Progress Patient-Stated? Author Patient will manage their medication General On track( 023 11:18 AM EDT) Citlali Ocampo PharmD Note: Began medboxes. Goal achieved 11/19/22. Patient graduated from [facility]. documented as of this encounter Visit Diagnoses Not on filedocumented in this encounter Additional Health Concerns Assessment Noted Time PHQ-9 Depression Total Score: 18 024 1:46 PM EDT documented as of this encounter Care Teams Pickers Material Handlers Relationship Specialty Start Date End Date Zeinab Sykes MD [address] [place] [address] PCP - General Internal Medicine 01/02/24 Tomeka Martins Tower Excavator OperatorHuman Service Technician 10/27/23 documented as of this encounter
--- OUTSIDE RECORDS SUMMARY | 2024-08-16 17:27 | XMS_ITS | Encounter Summary ---
Author Organization [employer] Address [address] [facility] [address] [place] [address] Care Team Providers Care Nuclear Waste Process Operator Name Role Phone Zeinab Sykes MD Primary Care Provider + Reason for Visit * Reason Onset Date Comments Chart prep 08/10/2024 Encounter Details Date Type Department Care Team ([facility] st Contact Info) Description 08/10/2024 Telephone [facility] [address] [place] [address] Terra Mackey MA Chart prep Social History Tobacco Use Types Packs/Day Years [...] encounter Miscellaneous Notes * Telephone Encounter - Terra Mackey MA - 08/10/2024 2:38 PM EST Chart Prep Labs: done Images: done Vaccines due: yes Referrals: pending appt Screenings: colonoscopy , eye exam Overdue care gaps: Glucose, PHQ-9 documented in this encounter Plan of Treatment Upcoming Encounters Date Type Department Care Team (Late st Contact Info) Description 09/25/2024 9:45 AM EDT Office Visit [facility] [address] [place] [phone] 10/09/2024 11:45 AM EDT Office Visit [facility] [address] [place] [phone] Zeinab Sykes MD [address] [place] [phone] documented as of this encounter Goals Goal Patient Goal Type Associated Problems Recent Progress Patient-Stated? Author Patient will manage their medication General On track( 023 11:18 AM EDT) No Citlali Armando, Anoop Note: Began medboxes. Goal achieved 11/19/22. Patient graduated from [facility]. documented as of this encounter Visit Diagnoses Not on filedocumented in this encounter Additional Health Concerns Assessment Noted Time PHQ-9 Depression Total Score: 18 024 1:46 PM EDT documented as of this encounter Care Teams Nuclear Waste Process Operator Relationship Specialty Start Date End Date Zeinab Sykes MD [address] [place] [phone] PCP - General Internal Medicine 01/02/24 Tomeka Martins Sales Project AdministratorManager Acquisition 10/27/23 documented as of this encounter
--- OUTSIDE RECORDS SUMMARY | 2024-08-16 17:27 | XMS_ITS | Encounter Summary ---
Author Organization [employer] Address [address] [facility] 7t [place] [address] Care Team Providers Care Regional Loss Prevention Manager Name Role Phone Zeinab Sykes MD Primary Care Provider + Reason for Visit * Reason Comments Med Refill Encounter Details Date Type Department Care Team ([facility] st Contact Info) Description 05/04/2024 Refill [facility] [address] [place], [place] [phone] Zeinab Sykes MD [address] [place] [address] Other intervertebral disc displacement, lumbar region Social [...] Description 09/25/2024 9:45 AM EDT Office Visit [facility] [address] [place] [phone] 10/09/2024 11:45 AM EDT Office Visit [facility] [address] [place] [address] Zeinab Sykes MD [address] [place] [phone] documented as of this encounter Goals Goal Patient Goal Type Associated Problems Recent Progress Patient-Stated? Author Patient will manage their medication General On track( 023 11:18 AM EDT) No Citlali Armando, PharmD Note: Began medboxes. Goal achieved 11/19/22. Patient graduated from [facility]. documented as of this encounter Visit Diagnoses Diagnosis Other intervertebral disc displacement, lumbar region documented in this encounter Additional Health Concerns Assessment Noted Time PHQ-9 Depression Total Score: 18 024 1:46 PM EDT documented as of this encounter Care Teams Regional Loss Prevention Manager Relationship Specialty Start Date End Date Zeinab Sykes MD [address] [place] [phone] PCP - General Internal Medicine 01/02/24 Tomeka Martins Critical Systems TechnicianStain Wiper 10/27/23 documented as of this encounter
--- OUTSIDE RECORDS SUMMARY | 2024-08-16 17:27 | XMS_ITS | Encounter Summary ---
Author Organization [employer] Address [address] [facility] 7[address] [place] [address] Care Team Providers Care Job Analyst Name Role Phone Zeinab Sykes MD Primary Care Provider + Reason for Visit * Reason Comments Cough Encounter Details Date Type Department Care Team (Latest Contact Info) Description 08/08/2024 5:20 PM EST Office Visit [facility] [address] [place], [place] [phone] Lia Martinez NP [address] [place] [address] Acute nasopharyngitis (Primary Dx); Flu-like symptoms Social History Tobacco Use Types Packs/Day Years [...] AM EDT documented as of this encounter Last Filed Vital Signs Vital Sign Reading Time Taken Comments Blood Pressure 130/72 08/08/2024 5:41 PM EST Pulse 88 08/08/2024 4:53 PM EST Temperature 37.4 ??C (99.4 ??F) 08/08/2024 4:53 PM ES T Respiratory Rate 20 08/08/2024 4:53 PM EST Oxygen Saturation - - Inhaled Oxygen Concentration - - Weight 91 kg (200 lb 9.6 oz) 08/08/2024 4:53 PM EST Height 160 cm (5' 3 ) 08/08/2024 4:53 PM EST Body Mass Index 35.53 08/08/2024 4:53 PM EST documented in this encounter Progress Notes * Lia Martinez NP - 08/08/2024 5:20 PM EST SUBJECTIVE: Rhonda Mclaughlin is a 63 y.o. female who presents to the [facility] for a sick visit. Denies recent illness, injury, or hospitalization. Cough Associated symptoms include chills, headaches, myalgias, a sore throat, shortness of breath and wheezing. Pertinent negatives include no chest pain, ear pain, fever, postnasal drip or rash. Complains of headache, sleepiness, and cough. Has some shortness of breath with coughing only and intermittent wheezing. Symptoms started 2 days ago and she has not noticed any fever. Endorses havingchills, and fatigue. Denies dizziness, n/v/d. Review of Systems Constitutional: Positive for chills and fatigue. Negative for fever. HENT: Positive for sore throat. Negative for congestion, ear pain and postnasal drip. Respiratory: Positive for cough, shortness of breath and wheezing. Negative for chest tightness. Cardiovascular: Negative for chest pain. Gastrointestinal: Negative for abdominal pain, constipation, diarrhea and nausea. Genitourinary: Negative for dysuria. Musculoskeletal: Positive for myalgias. Negative for arthralgias, back pain and neck pain. Skin: Negative. Negative for rash and wound. Neurological: Positive for headaches. Negative for weakness and light-headedness. Psychiatric/Behavioral: Negative for behavioral problems, confusion, decreased concentration and suicidal ideas. OBJECTIVE: Vitals: 08/08/24 1653 08/08/24 1741 BP: (!) 142/80 130/72 BP Location: Left arm Left arm Patient Position: Sitting Sitting BP Cuff Size: Large adult Adult Pulse: 88 Resp: 20 Temp: 99.4 ??F (37.4 ??C) TempSrc: Oral Weight: 200 lb 9.6 oz (91 kg) Height: 5' 3 (1.6 m) Patient Active Problem List Diagnosis ??? S/P placement of VNS (vagus nerve stimulation) device ??? Essential hypertension ??? Other intervertebral disc displacement, lumbar region ??? Type 2 diabetes mellitus without complication (CMS/HCC) ??? Moderate persistent asthma without complication ??? Detrusor overactivity ??? Neurostimulator device in situ ??? Obesity ??? Health care maintenance ??? Exostosis of right foot ??? Hallux rigidus of right foot ??? Mixed incontinence ??? Rectocele ??? Neuropathy ??? Gastroesophageal reflux disease without esophagitis ??? RUQ pain ??? Stage 3a chronic kidney disease (CMS/HCC) ??? Recurrent sinusitis ??? Seborrheic dermatitis of scalp ??? Housing insecurity ??? Dyslipidemia ??? Fatty liver ??? Long-term current use of opiate analgesic ??? Postmenopause bleeding ??? Left foot pain ??? Lumbar back pain with radiculopathy affecting left lower extremity Physical Exam Vitals reviewed. Constitutional: General: She is not in acute distress. Appearance: Normal appearance. She is not ill-appearing. HENT: Head: Normocephalic and atraumatic. Right Ear: External ear normal. Left Ear: External ear normal. Nose: Right Sinus: Maxillary sinus tenderness present. Left Sinus: Maxillary sinus tenderness present. Mouth/Throat: Mouth: Mucous membranes are moist. Pharynx: Uvula midline. No oropharyngeal exudate, posterior oropharyngeal erythema or uvula swelling. Eyes: General: No scleral icterus. Extraocular Movements: Extraocular movements intact. Cardiovascular: Rate and Rhythm: Normal rate and regular rhythm. Pulses: Normal pulses. Heart sounds: Normal heart sounds. Pulmonary: Effort: Pulmonary effort is normal. No respiratory distress. Breath sounds: Normal breath sounds. No wheezing. Musculoskeletal: General: Normal range of motion. Cervical back: Normal range of motion. No tenderness. Lymphadenopathy: Cervical: No cervical adenopathy. Neurological: General: No focal deficit present. Mental Status: She is alert and oriented to person, place, and time. Gait: Gait normal. Psychiatric: Mood and Affect: Mood normal. Behavior: Behavior normal. Assessment/Plan Diagnoses and all orders for this visit: Acute nasopharyngitis Comments: -symptoms suggestive of URI -Rapid COVID-19, Influenza and Strep all negative today -advised increase fluid intake and rest -Sore throat: salt water gargles, drink tea with honey & lemon, suck lozenge -come to walk-in center if symptoms worsen -may use Symbicort as needed for rescue not exceeding 12 inhalations per day -rx'ed wale purcell -advised steam inhalation Orders: - benzonatate (Tessalon Perles) 100 MG capsule; Take 1 capsule (100 mg) by mouth if needed in the morning, at noon, and at bedtime for cough for up to 7 days. Do not crush or chew. - acetaminophen (Tylenol) 325 MG tablet; Take 2 tablets (650 mg) by mouth every 6 (six) hours if needed for moderate pain or fever. - sodium chloride (Hardin Nasal [place]) 0.65 % nasal spray; Administer 1 spray into each nostril if needed for congestion. Flu-like symptoms - POCT Rapid RSV JI ID NOW - POCT Rapid Influenza B JI ID NOW - POCT Rapid Influenza A JI ID NOW - POCT Rapid Covid-19 BinaxNOW Occitan Translation: Provided by [facility] staff member DONTRELL Garber documented in this encounter Plan of Treatment Upcoming Encounters Date Type Department Care Team (Late st Contact Info) Description 09/25/2024 9:45 AM EDT Office Visit [facility] [address] [place] [address] 10/09/2024 11:45 AM EDT Office Visit [facility] [address] [place] [address] Zeinab Sykes MD [address] [place] [address] documented as of this encounter Goals Goal Patient Goal Type Associated Problems Recent Progress Patient-Stated? Author Patient will manage their medication General On track( 023 11:18 AM EDT) Citlali Ocampo, Anoop Note: Began medboxes. Goal achieved 11/19/22. Patient graduated from [facility]. documented as of this encounter Procedures Procedure Name Priority Date/Time Associated Diagnosis Comments POCT RSV (ID NOW RAPID ANTIGEN) Routine 08/08/2024 5:54 PM EST Flu-like symptoms POCT INFLUENZA B (ID NOW RAPID MOLECULAR) Routine 08/08/2024 5:54 PM EST Flu-like symptoms POCT INFLUENZA A (ID NOW RAPID MOLECULAR) Routine 08/08/2024 5:54 PM EST Flu-like symptoms POCT RAPID COVID ANTIGEN Routine 08/08/2024 5:54 PM EST Flu-like symptoms documented in this encounter Results * POCT Rapid Covid-19 BinaxNOW (08/08/2024 5:54 PM EST) Rapid COVID Ag Negative Swab 08/08/2024 5:54 PM EST us Lia Martinez NP POINT OF CARE TEST ENTER/EDIT O RDERABLES Final Result * POCT Rapid Influenza A JI ID NOW (08/08/2024 5:54 PM EST) [facility] Influenza A Negative Negative, Indeterminate [facility] Swab 08/08/2024 5:54 PM EST us Lia Blasm EVP [employer] SALES POINT OF CARE TEST ENTER/EDIT O RDERABLES Final Result Performing Organization Address [facility] Co de Phone Number [facility] [address] [place] [phone] * POCT Rapid Influenza B JI ID NOW (08/08/2024 5:54 PM EST) [facility] Influenza B Negative Negative, Indeterminate [facility] Swab 08/08/2024 5:54 PM EST us Lia Martinez [employer] POINT OF CARE TEST ENTER/EDIT O RDERABLES Final Result Performing Organization Address [facility] Co de Phone Number [facility] [address] [place] [phone] * POCT Rapid RSV JI ID NOW (08/08/2024 5:54 PM EST) [facility] RSV Rapid Ag POC Negative Negative [facility] Swab 08/08/2024 5:54 PM EST us Reneeamena Blas [employer] POINT OF CARE TEST ENTER/EDIT O RDERABLES Final Result Performing Organization Address [facility] de Phone Number [facility] [address] [place] [phone] documented in this encounter Visit Diagnoses Diagnosis Acute nasopharyngitis- Primary Acute nasopharyngitis (common cold) Flu-like symptoms documented in this encounter Additional Health Concerns Assessment Noted Time PHQ-9 Depression Total Score: 18 06/17/2 024 1:46 PM EDT documented as of this encounter Care Teams Job Analyst Relationship Specialty Start Date End Date Zeinab Sykes MD [address] [place] [phone] PCP - General Internal Medicine 01/02/24 Tomeka Martins Channel Lip WetterFlexboard Operator 10/27/23 documented as of this encounter
--- OUTSIDE RECORDS SUMMARY | 2024-08-16 17:27 | XMS_ITS | Continuity of Care Document ---
Author Organization [facility] Address [address] [place] [address] Phone Care Team Providers Care Catering Attendant Name Role Phone Waldo MADDOX FACS RVT Shiraz CHERY Unavailable Unavailable Allergies, Adverse Reactions, Alerts Substance Reaction Status Criticality latex Active No Information Medications Medication Instructions Dosage Effective Dates (start - stop) Status Comments lidocaine-prilocaine 2.5 %-2.5 % topical cream apply 2 hours before procedures for Pain - Active Procedures Procedure Date Office/Outpt E&M Established 15 Mins Oct Duplex Scan-extrem Veins; [facility]/ 23 Endovenous Laser, 1st Vein Endovenous [...] E&M Established 15 Mins [facility], [address] [place] [address] [address] [address]Pr[place]ep [place], [id number], [place] tel:[phone] [facility] Venous insufficiency (chronic) (peripheral) 3 Waldo MADDOX FACS RVT MIRI Rapp. [address] [place] [address], [place], [address], [place]. tel:[phone] Referring Provider: Rebekah Guevara, [address] [place], [address]. tel:[phone] [facility] [place], [address] [place] [address] [address]Pradeep [place], [id number], [place] tel:[phone] [facility] [place] [facility] [place] [facility] for f/u exam aft trtmt for cond oth than malig neoplmVenous insufficiency (chronic) (peripheral) 3 Waldo MADDOX FACS RVT MIRI Rapp. [address] [place] [address], [place], [address], [place]. tel:[phone] Referring Provider: Rebekah Guevara, [address] [place] [address], [address]. tel:[phone] [facility], [address] [place] [address] [address]Pradeep [place], [id number], [place] tel:[phone] [facility] [place] [facility] [place] Venous insufficiency (chronic) (peripheral) 3 Waldo MADDOX FACS RVT MIRI Rapp. [address] [place] [address], [place], [address], [place]. tel:[phone] Referring Provider: Rebekah Guevara, [address] [place] [address], [address]. tel:[phone] [facility] MD [place], [address] [place] [address] [address]Pradeep [place], [id number], [place] tel:[phone] [facility] [place] [facility] [place] Venous insufficiency (chronic) (peripheral) 3 Waldo MADDOX FACS RVT MIRI Rapp. [address] [place] [address], [place] [address], [place], [address], [place]. tel:[phone] Referring Provider: Rebekah Guevara, [address] [place], [address]. tel:[phone] [facility], [address] [place] [address] [address]Pradeep [place], [id number], [place] tel:[phone] [facility] [place] [facility] [place] No Information 3 Waldo Rapp. [address] [facility], [address] [facility], [place], [address], [place]. tel:[phone] Referring Provider: Rebekah Guevara, [address] [place] [address], [address]. tel:[phone] [facility], [address] [place] [address] [address]Pradeep [place], [id number], [place] tel:[phone] [facility] [place] [facility] [place] En[facility] for f/u exam aft trtmt for cond oth than malig neoplmVenous insufficiency (chronic) (peripheral) 3 Waldo [address]app[address] [place] [address], [place] [address], [place], [address], [place]. tel:[phone] Referring Provider: Rebekah Guevara, [address] [place] [address], [address]. 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 [place] [address], [facility] [address], [place], [address], [place]. tel:[phone] Referring Provider: Rebekah Guevara, [address] [place], [address]. tel:[phone] [facility] MD [place], [address] [place] [address] [address]Pradeep [place], [id number], [place] tel:[phone] [facility] [place] [facility] [place] Venous insufficiency (chronic) (peripheral) 3 Waldo Rapp. [facility] [facility], [address], [place], [address], [place]. [phone] Referring Provider: Rebekah Guevara, [address] [place], [address]. tel:[phone] Family History Family Member Type Diagnosis Age At Onset No Information Payers Payer name Insurance type Covered republican ID Authorlitzy funes(s) Medical Assistance DANIEL [id number] Social History Type Description Quantity Date Captured [...]
--- OUTSIDE RECORDS SUMMARY | 2024-08-16 17:27 | XMS_ITS | Encounter Summary ---
Author Organization [employer] Address [address] [facility] 7t [place] [address] Care Team Providers Care Consumer Educator Name Role Phone Evelyn Ledesma Primary Care Provider [phone] Oralia Aguila MD Primary Care Provider [phone] Zeinab Sykes MD Primary Care Provider + Reason for Visit * Reason Onset Date Comments case from lab 11/04/2022 Encounter Details Date Type Department Care Team (Late st Contact Info) Description 11/04/2022 Telephone [facility] [address] [place] [address] Asad Shore DDS [address] [place] [address] case from lab Social History Tobacco Use Types Packs/Day Years Used Date Smoking Tobacco: Never Smokeless Tobacco: Never Alcohol Use Standard [...] suspected to have Coronavirus/COVID-19? No / Unsure 10/25/2022 11:29 AM EDT documented as of this encounter Miscellaneous Notes * Telephone Encounter - Edyta Júnior - 11/11/2022 3:18 PM EDT Patient is calling in to confirm if case is back from lab. * Telephone Encounter - Cely Aly - 11/04/2022 2:46 PM EDT Patient is calling in to confirm if case is back from lab. DR documented in this encounter Plan of Treatment Upcoming Encounters Date Type Department Care Team (Late st Contact Info) Description 09/25/2024 9:45 AM EDT Office Visit [facility] [address] [place] [phone] 10/09/2024 11:45 AM EDT Office Visit [address] [address] Zeinab Sykes MD [address] [place] [address] documented as of this encounter Visit Diagnoses Not on filedocumented in this encounter Care Teams Consumer Educator Relationship Specialty Start Date End Date Evelyn Ledesma FNP PCP - General Family Medicine 03/15/22 04/25/23 Oralia Aguila MD [address] [place] [address] PCP - General Family Medicine 04/26/23 01/01/24 Zeinab Sykes MD [address] [place] [address] PCP - General Internal Medicine 01/02/24 Tomeka Martins Fire Control System InstallerTest Inspection Engineer 10/27/23 documented as of this encounter
--- OUTSIDE RECORDS SUMMARY | 2024-08-16 17:27 | XMS_ITS | Encounter Summary ---
Author Organization [facility], Address [address] [place] [address] Phone Care Team Providers Care Plasterer Spray Gun Name Role Phone Evelyn Rodriguez Primary Care Provider Silvana vailable Encounter Details Date Type Department Care Team (Late st Contact Info) Description 02/18/2023 Documentation Only [facility], [address] [place] [address] Xiao She[address]ard [address] [place] [address] Social History Tobacco Use Types Packs/Day Years Used Date Smoking Tobacco: Never Assessed Comments Unknown Sex and Gender Information Value Date Recorded Sex Assigned at Not on file Legal Sex Female 3:56 PM EDT Gender Identity Not on file Sexual Orientation Not on file documented as of this encounter Plan of Treatment Not on file documented as of this encounter Visit Diagnoses Not on filedocumented in this encounter Care Teams Plasterer Spray Gun Relationship Specialty Start Date End Date Evelyn Rodriguez FNP PCP - General 02/18/23 documented as of this encounter
--- OUTSIDE RECORDS SUMMARY | 2024-08-16 17:27 | XMS_ITS | Clinical Summary ---
Author Organization [facility] [facility] Address [address] [place] [address] [address] [place] [address] Care Team Providers Care Grocery Store Manager Name Role Phone Zeinab Sykes MD Primary Care Provider + Allergies Active Allergy Reactions Criticality Noted Date Comments Latex Rash Low 06/09/2022 Pineapple Angioedema 12/15/2022 Medications ammonium lactate (Lac-Hydrin) 12 % lotion apply twice daily to affected area, rub in well Active hydrOXYzine HCl (Atarax) 25 MG tablet Take 1 tablet by mouth every 8 (eight) hours. PRN itching Active Misc. Devices (Cane) misc Active Blood Pressure kit A ctive Respiratory Therapy Supplies (Nebulizer) device A ctive Blood Glucose Monitoring Suppl (FreeStyle glucose monitoring) kit 1 each if needed. Active Turmeric 500 MG capsule Use 3 capsules per day. Patient purchases OTC. Active Finacea 15 % gel APPLY TOPICALLY TO THE FACE ONCE DAILY 023 Active betamethasone dipropionate (Diprosone) 0.05 % lotion APPLY TOPICALLY TO SCALP TWICE DAILY (for itching), DECREASE WHEN SYMPTOMS IMPROVE 023 Active desonide (DesOwen) 0.05 % cream APPLY TOPICALLY TO FACE (for itching) ONCE DAILY NEEDED. DECREASE WHEN SYMPTOMS IMPROVE 023 Active Diclofenac Sodium 1 % gel Apply 2 g topically 4 times daily. 100 g 1 023 Active Symbicort 160-4.5 MCG/ACT inhaler Inhale 2 puffs 2 times daily. Active Clobetasol Propionate 0.05 % lotion APPLY TO SCALP TWICE DAILY NEEDED FOR FLARE Active Myrbetriq 25 MG 24 hr tablet Take 25 mg by mouth in the morning. Active pantoprazole (ProtoNix) 20 MG EC tablet Take 20 mg by mouth in the morning. Active doxepin (SINEquan) 10 MG capsule Take 10 mg by mouth in the morning. Active minoxidil (Loniten) 2.5 MG tablet Take 1.25 mg by mouth in the morning. Active chlorthalidone (Hygroton) 25 MG tablet TAKE 1/2 TABLET BY MOUTH EVERY MORNING 45 tablet 3 Active oxymetazoline (Afrin Nasal [place]) 0.05 % nasal spray Administer 2 sprays into each nostril every 12 (twelve) hours if needed for congestion for up to 2 days. Do not use for more than 3 days. 30 mL Active Alcohol Swabs (Alcohol Prep) padsIndications:Ty pe 2 diabetes mellitus without complication, without long-term current use of insulin ([facility]) USE TWICE DAILY 100 each 5 Active pseudoephedrine (Sudafed) 60 MG tablet Take 1 tablet (60 mg) by mouth every 6 (six) hours if needed for congestion for up to 7 days. 20 tablet Active albuterol (2.5 MG/3ML) 0.083% nebulizer solution Take 3 mL (2.5 mg) by nebulization every 4 (four) hours if needed for wheezing or shortness of breath (Maximum 4 treatments per day). 75 mL 2 024 2024 Active ondansetron (Zofran) 4 MG tablet Take 1 tablet (4 mg) by mouth every 8 (eight) hours if needed for nausea or vomiting. 12 tablet Active cetirizine (ZyrTEC) 10 MG tabletIndications: Seasonal allergic rhinitis, unspecified trigger Take 1 tablet (10 mg) by mouth Once per day. 90 tablet 3 024 2024 Active atorvastatin (Lipitor) 20 MG tablet Take 1 tablet (20 mg) by mouth at bedtime. 90 tablet 3 024 Active celecoxib (CeleBREX) 100 MG capsuleIndications :Left hand pain Take 1 capsule (100 mg) by mouth 2 times daily. 60 capsule 3 024 Active lidocaine (Lidoderm) 5 % patchIndications:O ther intervertebral disc displacement, lumbar region APPLY 1 PATCH TOPICALLY TO SKIN, LEAVE ON FOR 12 HOURS AND OFF FOR 12 HOURS DIRECTED DIRECTED 30 patch 3 Active amLODIPine-valsart an (Exforge) 10-320 MG tablet TAKE 1 TABLET BY MOUTH EVERY MORNING 90 tablet 3 024 Active FreeStyle lancetsIndications :Type 2 diabetes mellitus without complication, without long-term current use of insulin ([facility]) 1 each by Other route Once per day. USE TO TEST BLOOD SUGAR ONCE A DAY 100 each 3 024 Active glucose blood (FREESTYLE LITE) test stripIndications:T ype 2 diabetes mellitus without complication, without long-term current use of insulin ([facility]) USE TO TEST BLOOD SUGAR ONCE A DAY 100 each 3 024 Active gabapentin (Neurontin) 300 MG capsuleIndications :Neuropathy TAKE 1 CAPSULE BY MOUTH THREE TIMES DAILY IN THE MORNING, EVENING, AND BEDTIME 90 capsule 3 024 Active ergocalciferol (Vitamin D2) 1.25 MG (05861 UT) capsule TAKE 1 CAPSULE BY MOUTH ONCE WEEKLY ON TUESDAY MORNING 12 capsule 025 Active oxyCODONE-acetamin ophen (Percocet) 5-325 MG tabletIndications: Other intervertebral disc displacement, lumbar region Take 1 tablet by mouth every 6 (six) hours if needed for severe pain for up to 28 days. 112 tablet 025 2024 Active acetaminophen (Tylenol) 325 MG tabletIndications: Acute nasopharyngitis Take 2 tablets (650 mg) by mouth every 6 (six) hours if needed for moderate pain or fever. 120 tablet 025 2024 Active sodium chloride ([place] Nasal [place]) 0.65 % nasal sprayIndications:A cute nasopharyngitis Administer 1 spray into each nostril if needed for congestion. 30 mL 1 025 2025 Active acetaminophen (Tylenol) 325 MG tablet TAKE 2 TABLETS BY MOUTH EVERY 6 HOURS NEEDED FOR PAIN FOR UP TO 10 DAYS 023 2024 Discontinued(R eorder (will not trigger notification to Pharmacy)) ergocalciferol (Vitamin D2) 1.25 MG (72028 UT) capsule Take 1 capsule (1.25 mg) by mouth 1 (one) time per week. 12 capsule 024 2024 Discontinued oxyCODONE-acetamin ophen (Percocet) 5-325 MG tabletIndications: Other intervertebral disc displacement, lumbar region Take 1 tablet by mouth every 6 (six) hours if needed for severe pain for up to 28 days. 112 tablet 024 2024 Discontinued(R eorder (will not trigger notification to Pharmacy)) benzonatate (Tessalon Perles) 100 MG capsuleIndications :Acute nasopharyngitis Take 1 capsule (100 mg) by mouth if needed in the morning, at noon, and at bedtime for cough for up to 7 days. Do not crush or chew. 20 capsule 025 2024 Hospital, Clinic, or Other Facility Administered Medication Ordered Dose Route Frequency Start Date End Date Status ipratropium-albutero l (Duo-Neb) 0.5-2.5 mg/3 mL nebulizer solution 3 mLIndications:Modera te persistent asthma with acute exacerbation 3 mL NEBULIZATION Once 08/15/2024 08/15/2024 Ended Active Problems Problem Noted Date Diagnosed Date Recurrent major depressive disorder, in partial remission 08/15/2024 Assessment & Plan (08/15/2024 1:31 PM EST): Uncontrolled. FU with [facility] for adjustment. Patient waiting for housing assignment, needs a letter with functional limitations including handicap entrance. Drop release of information at medical records. A[place]LAIDE (obstructive sleep apnea) 08/15/2024 Assessment & Plan (08/15/2024 1:35 PM EST): Patient returned CPAP, she did not tolerate mask. Repeat sleep study and titration. I will prescribe nasal mask. Nasal congestion 08/15/2024 Assessment & Plan (08/15/2024 12:53 PM EST): Residual from URI, now improving. Continue Flonase and Tylenol as needed. DuoNeb nebulization today for asthma exacerbation and she will return to clinic if symptoms get worse or she develops fever again. Postmenopause bleeding 03/29/2024 Assessment & Plan (08/15/2024 1:28 PM EST): Result s/p endometrial polyp resection. Assessment & Plan (03/29/2024 2:47 PM EDT): Resolved. Pelvic US is pending, she may need endometrial bx, I will fu or refer to [facility] after US reports. Left foot pain 03/29/2024 Assessment & Plan (03/29/2024 2:48 PM EDT): Likely sec to lumbar radiculopathy. Order Xray foot to ro osteophyte or neuroma. Refer to PT and fu w me in 3-4m No change in meds. Lumbar back pain with radicu lopathy affecting left lower extremity 03/29/2024 Assessment & Plan (07/31/2024 4:58 PM EST): Known DDD L-spine with radiculopathy sxs 05/26/2018 - Lumbar decompression surgery: L4-5 and right L5-S1 decompressive laminectomy at [facility] - surgeon Dr. Melia Pedroza DME request for 10-in-1 pillow on 07/31/24 Assessment & Plan (05/29/2024 5:18 PM EST): Known DDD L-spine with radiculopathy sxs 05/26/2018 - Lumbar decompression surgery: L4-5 and right L5-S1 decompressive laminectomy at [facility] - surgeon Dr. Melia Pedroza Assessment & Plan (03/29/2024 2:54 PM EDT): Has knows DDD L-spine with radiculopathy sxs, see above She's doing well on percocet, advised to come to acupuncture clinic I will send rx percocet today to be filled out 1w earlier than expected as patient is going away this weekend for 3w. She's aware that insurance may or not cover medication. Her next refill is still due after 05/04/24 Long-term current use of opiate analgesic 2023 Overview (03/13/2024): Medication: Percocet 5-325mg Q6H PRN Indication: herniation of left side of L5-L5 intervertebral disc, s/p vagus nerve stimulator, neuropathy Last [employer] Agreement: 03/13/24 Assessment & Plan (07/31/2024 4:57 PM EST): -Good engagement and participation with Group Medical Visit model -Encouraged multifactorial approach to pain control including pharm and non- pharm modalities -UTOX and pill count as expected Timeline: 10/11/23: Group - WNL 11/08/23: Group - Pill count wnl, utox deferred 01/10/24: Group - WNL 03/13/24: Group - WNL 05/29/24: Group - pill count wnl, UTOX (+) fent, (+) BZO. Confirmatory testing negative 07/31/24: Group - WNL Assessment & Plan (05/29/2024 5:21 PM EST): -Good engagement and participation with Group Medical Visit model -Pill count as expected. Utox positive for BZO and fentanyl. Confirmatory testing sent to lab -Encouraged multifactorial approach to pain control including pharm and non- pharm modalities Timeline: 10/11/23: Group - WNL 11/08/23: Group - Pill count wnl, utox deferred 01/10/24: Group - WNL 03/13/24: Group - WNL 05/29/24: Group - pill count wnl, UTOX (+) fent, (+) BZO. Confirmatory testing sent Assessment & Plan (03/13/2024 5:29 PM EDT): -Good engagement and participation with Group Medical Visit model -Encouraged multifactorial approach to pain control including pharm and non- pharm modalities -UTOX and Pill count as expected Dyslipidemia 02/04/2024 Assessment & Plan (03/29/2024 2:51 PM EDT): LDL is not at goal. We discussed re rx options. Recommended moderate amount of exercise and increase consumption of fruit, vegetables, fish and high fiber foods. Should decrease consumption of highly saturated fats or trans fats. Started on atorvastatin few weeks ago, will repeat lipids and LFTs in 3mo Fatty liver 02/04/2024 Overview (03/29/2024): [facility] [place] [place] abd US on 10/2023 showed Fatty liver. Normal LFTs/albumin Assessment & Plan (03/29/2024 1:40 PM EDT): LFTs remain stable/normal. Dx d/w patient and advised her to continue tight control of DM, weight reduction, try to cut down on opiates and fu with me. I also advised her to avoid ETOH or recreational substances. Seborrheic dermatitis of scalp 01/02/2024 Overview (01/02/2024): Seen at [facility] dermatology Assessment & Plan (03/20/2024 3:50 PM EDT): Generally well controlled, encouraged to continue fu with [facility] derm Refill for fluocinolone today. Housing insecurity 01/02/2024 Assessment & Plan (08/15/2024 1:36 PM EST): See above. Applying for housing and need handicap access. Assessment & Plan (03/20/2024 3:51 PM EDT): Awaiting housing application, lives in abasement FU with SDOH. Stage 3a chronic kidney disease 11/01/2023 Assessment & Plan (03/29/2024 2:39 PM EDT): GFR stable in the 50s. Advised re tight control of DM, HTN and hyperlipidemia. Advised to avoid NSAIDs, tylenol is ok for pain. Assessment & Plan (11/01/2023 3:29 PM EDT): Will check labs. Recurrent sinusitis 11/01/2023 Assessment & Plan (11/01/2023 3:57 PM EDT): S/p treatment w/ amoxicillin SEPTEMBER 2023. Will give prednisone and pseudophedrine short term. Will refer her to snubber again so she can be evaluated for allergy and receive treatment if indicated. Moderate persistent asthma with acute exacerbati on 11/01/2023 Assessment & Plan (08/15/2024 1:38 PM EST): DuoNeb nebullization today and will continue BID at home for 5 days and after PRN. FU in 1 month. Assessment & Plan (11/01/2023 3:27 PM EDT): Cont Symbicort. Cont albuterol prn. Will refer her back to snubber. RUQ pain 10/05/2023 Assessment & Plan (11/01/2023 3:28 PM EDT): Pt was seen in walkin clinic for RUQ. US was ordered but pending. Labs were checked. Request refered to GI. Will check status of US order. Assessment & Plan (10/05/2023 6:49 PM EDT): Pt has benign abd exam but there is tenderness w palpation below RUQ Capillary today CBG 93, hb1AC 6.1 Will need to r/o cholelithiasis ,from symptoms no concern for biliary duct obstruction or pancreatitis ,denies epigastric burning pain nor CP -abd US complete referred today----will call pt w results -simethicone prn -alarm signs and symptoms discussed w pt , if pain is more intense to go to ED Gastroesophageal reflux disease without esophagi tis 04/22/2023 Overview (04/22/2023): EGD on 03/22/23: Large ballon inside the gastric body placed in [place] for bariatric procedure about 20 cm in diameter. Causes functional gastric outlet obstruction Episodic reflux noted and small type 1 hiatal hernia Marked presbyesophagus Duodenal bulb and proximal small bowel appear normal Neuropathy 01/31/2023 Overview (01/31/2023): Treating with Gabapentin 300 mg TID PRN Medbox pt Assessment & Plan (03/30/2023 6:40 PM EDT): Continue gabapentin L hand pain may be r/t neuropathy F/u PRN Assessment & Plan (01/31/2023 7:01 PM EDT): Continue gabapentin Pt picking up Medbox today F/u PRN Mixed incontinence 12/30/2022 Rectocele 12/30/2022 Exostosis of right foot 10/26/2022 Hallux rigidus of right foot 10/26/2022 Health care maintenance 09/17/2022 Overview (09/17/2022): C-scope: 11/04/20 repeat in 3 years due to 4 small to medium sized polyps Mammo: 03/15/2022 No mammographic evidence of malignancy. ASSESSMENT: BI-RADS 2: Benign PAP: 07/07/20 NIL/-HPV DEXA: 10/07/20 normal bone density with lowest t-score of -0.4 of femoral neck . Moderate persistent asthma without complication 08/20/2022 Overview (01/31/2023): Chronic asthma Treating with albuterol nebulizer treatment every 4-6 hours PRN Assessment & Plan (09/08/2023 4:18 PM EST): Albuterol inhaler Q 4-6 hrs Prednisone 40mg for 5 day s Assessment & Plan (03/30/2023 6:45 PM EDT): Hx and exam c/w asthma exacerbation vs GERD/reflux vs esophageal trauma/irritation d/t anesthesia tubing use Continue albuterol PRN as using Rx Prednisone burst 40 mg x 5 days again Refer to Pulmonology F/u with GI and keep EGD appt to further assess throat and reason for cough/vomiting F/u PRN Assessment & Plan (01/31/2023 7:03 PM EDT): Hx and exam c/w asthma exacerbation vs GERD/reflux vs esophageal trauma/irritation d/t anesthesia tubing use Continue albuterol PRN as using Rx Prednisone burst 40 mg x 5 days Educated on use RTC if cough or breathing not improved in 2 weeks F/u PRN Detrusor overactivity 08/20/2022 Overview (09/17/2022): (+) urinary incontinence - Has Vagal nerve stimulator insitu. Neurostimulator device in situ 08/20/2022 Obesity 08/20/2022 S/P placement of VNS (vagus nerve stimulation) d evice 03/08/2022 Type 2 diabetes mellitus without complication Overview (01/30/2023): Diet contolled. Office diagnostics: Hgb A1c 5.3, glucose 130. educated on hypo/hyperglycemia signs and symptoms. continue monitoring BG at home. continue lifestyle modifications. discussed low-concentrated sweets diet. Labs ordered, will evaluate and provide further recommendation per results. Last eye exam 12/30/22. No retinopathy. RTC 1 year f/up 3 months or sooner prn Assessment & Plan (08/15/2024 1:23 PM EST): Controlled. Hyperglycemia today, most likely current URI. Continue on lifestyle modifications only, no meds for now. Counseled re more frequent low calorie/carb meals. Check fgstk 1x daily Encouraged physical activity as tolerated. FU in 3-4 months. Assessment & Plan (03/29/2024 2:49 PM EDT): Controlled. A1c is at goal. Continue on lifestyle modifications only, no meds for now. Counseled re more frequent low calorie/carb meals. Check fgstk 1x daily Encouraged physical activity as tolerated. FU in 3-4 months. Assessment & Plan (03/20/2024 3:49 PM EDT): Controlled. A1c is at goal. Continue on dietary rx. Counseled re more frequent low calorie/carb meals. Check fgstk 1x daily Encouraged physical activity as tolerated. FU in 6 months. Other intervertebral disc displacement, lumbar r egion 05/17/2017 Overview (09/17/2022): On [employer] contract. discussed tapering percocet options, not interested.. Referred to HIM forms dept for handicap plackards documents. Referred to [facility] for polypharmacy education. Continue medications as prescribed. Discussed Narcan. Encouraged nonpharmacologic pain relief strategies. will f/up next visit Assessment & Plan (03/20/2024 3:48 PM EDT): On [employer] contract. discussed tapering percocet options, not interested, it apparently offers partial enough improvement of sxs. Patient is aware that skilled nursing use of opiates can cause hyperalgesia, liver toxicity, TURPENTINE DISTILLER toxicity, increase anxiety, among others. Will continue to work with chronic pain management [facility] clinic. Continue medications as prescribed. Discussed Narcan. Encouraged nonpharmacologic pain relief strategies. Assessment & Plan (01/10/2024 2:20 PM EDT): -Continues with Percocet 5-325mg Q6H PRN. Reviewed med safety and SE. -UTOX and pill count as expected -Good engagement and participation with Group Medical Visit model -Encouraged multifactorial approach to pain control including pharm and non- pharm modalities Assessment & Plan (11/08/2023 1:50 PM EDT): -Continues with Percocet 5-325mg Q6H PRN. Reviewed med safety and SE. -Pill count as expected (Utox deferred as last WNL) -Good engagement and participation with Group Medical Visit model -Encouraged multifactorial approach to pain control including pharm and non- pharm modalities Assessment & Plan (10/11/2023 12:44 PM EDT): -Continues with Percocet 5-325mg Q6H PRN. Reviewed med safety and SE. -UTOX and Pill count as expected -Good engagement and participation with Group Medical Visit model -Encouraged multifactorial approach to pain control including pharm and non- pharm modalities Assessment & Plan (09/13/2023 9:38 PM EST): -Continues with Percocet 5-325mg Q6H PRN. Reviewed med safety and SE. -UTOX and Pill count as expected -Good engagement and participation with Group Medical Visit model - today was first visit. -Encouraged multifactorial approach to pain control including pharm and non- pharm modalities Essential hypertension 05/03/2017 Overview (09/17/2022): Repeat BP during ofc visit 138/88. At goal <140/<90. Admits to medication noncompliance, reports taking PRN for elevated BP readings.. Referred to [facility] for polypharmacy education. Continue medications as prescribed, strongly advised regarding compliance. Continue monitroing BP at home. Keep daily log of BP readings. Follow lifestyle modifications. Labs ordered, will evaluate and provide further recommendation per results. F/up 3 mo. or sooner PRN. Assessment & Plan (08/15/2024 1:25 PM EST): Controlled. Compliant w/ Exforge, Chlorthalidone. Counseled re low salt diet/increase moderate physical activity. Check home BP BIW and prn CP/GUERIN/HART Resolved Problems Problem Noted Date Diagnosed Date Resolved Date Strep pharyngitis 12/26/2023 05/29/2024 Acute maxillary sinusitis 09/08/2023 Viral URI 09/03/2022 09/13/2023 Back pain 08/20/2022 12/30/2022 Onychomycosis of multiple to enails with type 2 diabetes mellitus ([facility]) 05/17/2017 03/29/2024 Encounters Date Type Department Care Team Description 08/15/2024 10:15 AM EST Office Visit [facility] [address] [place] [address] Zeinab Sykes MD Type 2 diabetes mellitus without complication, without long-term current use of insulin ([facility]) (Primary Dx); Essential hypertension; Postmenopause bleeding; Recurrent major depressive disorder, in partial remission ([facility]); Moderate persistent asthma with acute exacerbation; A[place]LA[place] (obstructive sleep apnea); Housing insecurity; Nasal congestion 08/15/2024 Travel 08/14/2024 Travel 08/10/[address] [phone] Terra Mackey MA Chart prep 08/08/2024 5:20 PM EST Office Visit [facility] [address] [place] [phone] Lia Martinez, LAMINE Acute nasopharyngitis (Primary Dx); Flu-like symptoms 08/08/2024 3:00 PM EST Office Visit [facility] [address] [place] [phone] Watknis-Maynard , Gay, DDS Fracture of removable partial denture (Primary Dx) 08/03/2024 3:30 PM EST Office Visit [facility] [address] [place] [phone] Watkins-Maynard , Gay, DDS Fracture of removable partial denture (Primary Dx) 08/03/[address] [address] Zeinab Sykes MD Other intervertebral disc displacement, lumbar region 08/03/2024 Patient Outreach [address] [address] Zeinab Sykes MD Pre-visit Planning ((Unable to reach for PVP screening, LVM)) 08/01/2024 Telephone [facility] [address], [place] [phone] Zeinab Sykes MD Durable Medical Equipment (10 In 1 pillow/) 07/31/2024 9:45 AM EST Office Visit [address] [address] Alma Jha, JERRY Lumbar back pain with radiculopathy affecting left lower extremity (Primary Dx); Long-term current use of opiate analgesic 07/31/2024 Telephone [facility] [address] [place] [address] Alma Jha SERVICES MANAGER [employer]: [employer] System 07/31/[address] [address] Bernie, Scarlett, RN BPI Scoring 07/31/2024 Travel 07/30/2024 Refill [facility] [address] [place] [address] Zeinab Sykes MD 07/16/[address] [address] Zeinab Sykes MD Med Refill 07/04/2024 Refill [facility] [address] [place] [address] Zeinab Sykes MD Other intervertebral disc displacement, lumbar region 06/29/2024 Refill [facility] [address] [place] [address] Zeinab Sykes MD Neuropathy 06/19/2024 Refill [facility] [address] [place] [phone] Zeinab Sykes MD Type 2 diabetes mellitus without complication, without long-term current use of insulin ([facility]) 06/04/2024 Telephone [facility] [address] [place] [phone] Zeinab Sykes MD Med Refill 06/04/2024 Refill [facility] [address] [place] [phone] Zeinab Sykes MD Other intervertebral disc displacement, lumbar region 05/29/2024 11:00 AM EST Office Visit [address] [address] Alma Jha, SERVICES MANAGER Lumbar back pain with radiculopathy affecting left lower extremity (Primary Dx); Long-term current use of opiate analgesic 05/29/2024 Telephone [facility] [address] [place] [phone] Scarlett Gibbs RN UTOX 05/29/[address] [address] Zeinab Sykes MD Serenity recall 05/29/2024 Travel 05/17/2024 2:30 PM EDT Office Visit [facility] [address] [place], [place] [phone] Meg Melgar DDS from Last 3 Months Immunizations Name Administration Dates Next Due HepB-CpG 10/04/2022,09/03/2022 Influenza Injectable Quadriv alant Preservative Free IIV4 MDCK 05/06/2022 Influenza injectable quadriv alent IIV4 with preservative 04/05/2018 Influenza injectable quadriv alent preservative free 07/28/2020 Moderna Covid-19 Vaccine 12+ 01/15/2022, 08/04/2021,10/08/2020,2020 Moderna Covid-19 Vaccine 6+ Bivalent 08/24/2022 Pneumococcal Conjugate PCV 20 09/03/2022 RSV Bivalent 09/13/2023 Tdap 12/26/2020 Zoster, Recombinant 04/20/2022,02/16/2022 Social History Tobacco Use Types Packs/Day Years Used Date Smoking Tobacco: Never Passive Smoke Exposure: Never Smokeless Tobacco: Never Tobacco Cessation:Counseling Given: Not Answered Alcohol Use Standard Drinks/Week Comments Not Currently [...] Orientation Straight 05/17/2022 10 :32 AM EDT Last Filed Vital Signs Vital Sign Reading Time Taken Comments Blood Pressure 128/72 08/15/2024 10:29 AM EST Pulse 65 08/15/2024 10:29 AM EST Temperature 36.2 ??C (97.2 ??F) 08/15/2024 10:[address] Respiratory Rate 20 08/15/2024 10:29 AM EST Oxygen Saturation 98% 08/15/2024 10:29 AM EST Inhaled Oxygen Concentration - - Weight 90.4 kg (199 lb 3.2 oz) 08/15/2024 10:29 AM EST Height 160 cm (5' 3 ) 08/15/2024 10:29 AM EST Body Mass Index 35.29 08/15/2024 10:29 AM EST Plan of Treatment Upcoming Encounters Date Type Department Care Team (Late st Contact Info) Description 09/25/2024 9:45 AM EDT Office Visit [facility] [address] [place] [phone] 10/09/2024 11:45 AM EDT Office Visit [facility] [address] [place] [phone] Zeinab Sykes MD [address] [place] [phone] Health Maintenance Due Date Last Done Comments CT Colonography 1960 Colonoscopy 1960 Colorectal Cancer Screening 1960 Dental X-Ray: Bitewings 1959 Dental X-Ray: Full Mouth 1959 FIT DNA/Cologuard 1959 FIT 1959 FOBT 1960 Sigmoidoscopy 1960 Eye Exam 11/05/1969 Alcohol/Substance Use Screening 1971 Hepatitis A Vaccines (1 of 2 - Risk 2-dose series) 11/05/1978 Diabetes: Urine Protein Screening 03/08/2023 03/08/2022, 09/16/2020 Mammogram 03/15/2024 03/15/2022, 01/17, 10/07/2020 COVID-19 Vaccine ( season) 2024 08/24/2022, 01/15/2022, 08/04/2021, Additional history exists Influenza Vaccine (#1) 2024 , 07/28/2020, 04/05/2018 Dental Oral Exam 07/23/2024 01/20/2024, 07/22/2023 Dental Prophylaxis 07/23/2024 01/20/2024, 07/22/2023 Diabetes: Hemoglobin A1C 09/26/2024 024, 10/05/2023, 10/20/2022, Additional history exists SDOH Screening 12/20/2024 12/21/2023 Lipid Panel 01/05/2025 01/06/2024, 05/19, 09/16/2020 Depression Monitoring (PHQ-9) 02/12/2025 08/15/2024, 08/15/2024 Diabetes: Foot Exam 03/29/2025 03/29/2024, 03/29/2024, 03/29/2024, Additional history exists Cervical Cancer Screening 07/07/2025 HPV/Cotest 07/07/2025 07/07/2020 Depression Screening 08/15/2025 08/15/2024, 08/15/19 25 Tobacco Screening 08/15/2025 08/15/2024 Pap Smear 06/01/2027 06/01/2024, 07/07/2020 DTaP/Tdap/Td Vaccines (2 - Td or Tdap) 12/26/2030 12/26/2020 Zoster Vaccines Completed 04/20/2022, 02/16/2022 Pneumococcal Vaccine: 50+ Years Completed 09/03/2022 Hepatitis B Vaccines Completed 10/04/2022, 09/03/19 23 RSV Patients and Patients Aged 60 years or older Completed 09/13/2023 HIV Screening Completed 01/06/2024, 02/16/2022 Hepatitis C Screening Completed 01/06/2024, 022 HIB Vaccines Aged Out No longer eligi ble based on patient's age to complete this topic HPV Vaccines Aged Out No longer eligi ble based on patient's age to complete this topic IPV Vaccines Aged Out No longer eligi ble based on patient's age to complete this topic Meningococcal Vaccine Aged Out No karina ansley eligible based on patient's age to complete this topic RSV under 20 months Aged Out No longe r eligible based on patient's age to complete this topic Rotavirus Vaccines Aged Out No longer eligible based on patient's age to complete this topic Goals Goal Patient Goal Type Associated Problems Recent Progress Patient-Stated? Author Patient will manage their medication General On track( 023 11:18 AM EDT) No Citlali Armando, Anoop Note: Began medboxes. Goal achieved 11/19/22. Patient graduated from [facility]. Procedures Procedure Name Priority Date/Time Associated Diagnosis Comments POCT INFLUENZA A (ID NOW RAPID MOLECULAR) Routine 08/15/2024 11:29 AM EST Nasal congestion POCT RAPID COVID ANTIGEN Routine 08/15/2024 11:29 AM EST Nasal congestion POCT INFLUENZA B (ID NOW RAPID MOLECULAR) Routine 08/15/2024 11:28 AM EST Nasal congestion POCT GLUCOSE Routine 08/15/2024 10:38 AM EST Type 2 diabetes mellitus without complication, without long-term current use of insulin ([facility]) POCT RAPID COVID ANTIGEN Routine 08/08/2024 5:54 PM EST Flu-like symptoms POCT INFLUENZA A (ID NOW RAPID MOLECULAR) Routine 08/08/2024 5:54 PM EST Flu-like symptoms POCT INFLUENZA B (ID NOW RAPID MOLECULAR) Routine 08/08/2024 5:54 PM EST Flu-like symptoms POCT RSV (ID NOW RAPID ANTIGEN) Routine 08/08/2024 5:54 PM EST Flu-like symptoms [employer] - PROFESSIONAL VISITS - CASE PRESENTATION, SUBSEQUENT TO DETAILED AND EXTENSIVE TREATMENT PLANNING Routine 08/08/2024 3:00 PM EST Fracture of removable partial denture PROSTHODONTICS (REMOVABLE) - REPAIRS TO PARTIAL DENTURES - REPAIR RESIN PARTIAL DENTURE BASE, MANDIBULAR Routine 08/08/2024 3:00 PM EST Fracture of removable partial denture [employer] - PROFESSIONAL VISITS - CASE PRESENTATION, SUBSEQUENT TO DETAILED AND EXTENSIVE TREATMENT PLANNING Routine 08/03/2024 3:30 PM EST Fracture of removable partial denture LIMITED ORAL EVALUATION - PROBLEM FOCUSED Routine 08/03/2024 3:30 PM EST Fracture of removable partial denture POCT DIDIER-14 URINE DRUG SCREEN Routine 07/31/2024 1:45 PM EST Lumbar back pain with radiculopathy affecting left lower extremity CREATININE, SERUM Routine 07/03/2024 12: 03 PM EST Postmenopause bleeding UREA NITROGEN (BUN) Routine 07/03/2024 1 2:03 PM EST Postmenopause bleeding HEMATOXYLIN AND EOSIN STAIN Routine 06/08/2024 10:22 AM EST Postmenopause bleeding GLUCOSE, WHOLE BLOOD Routine 06/08/2024 9:44 AM EST Postmenopause bleeding PAP SMEAR Routine 06/01/2024 2:43 PM EST Postmenopause bleeding POCT DIDIER-14 URINE DRUG SCREEN Routine 05/29/2024 1:54 PM EST Long-term current use of opiate analgesic DRUG MONITORING, BENZODIAZEPINES, QUANTITATIVE, URINE Routine 05/29/2024 12:00 PM EST Postmenopause bleeding DRUG MONITOR, FENTANYL, W/CONF, URINE Routine 05/29/2024 12:00 PM EST Long-term current use of opiate analgesic Lumbar back pain with radiculopathy affecting left lower extremity NO CHARGE PROCEDURE Routine 05/17/2024 2 :30 PM EDT POCT GLYCATED HEMOGLOBIN, TOTAL Routine 03/29/2024 10:47 AM EDT Type 2 diabetes mellitus without complication, without long-term current use of insulin (CMS/HCC) Full PROPHYLAXIS - ADULT Routine 01/20/2024 2:00 PM EDT PERIODIC ORAL EVALUATION - ESTABLISHED PATIENT Routine 01/20/2024 2:00 PM EDT HEPATITIS PANEL, GENERAL Routine 01/06/2024 12:38 PM EDT Fatty liver HIV 1/2 ANTIGEN/ANTIBODY, FOURTH GENERATION W/RFL Routine 01/06/2024 12:38 PM EDT Fatty liver LIPID PANEL WITH REFLEX TO DIRECT LDL Routine 01/06/2024 12:38 PM EDT Type 2 diabetes mellitus without complication, without long-term current use of insulin (CMS/HCC) Fatty liver MAMMOGRAM GENERIC Routine 03/15/2022 5:0 0 PM EDT ALBUMIN, RANDOM URINE W/CREATININE Routine 03/08/2022 3:04 PM EDT HPV MRNA E6/E7 Routine 07/07/2020 12:00 AM EST from Last 3 Months or Most Recently Relevant to Health Maintenance Results * POCT Rapid Influenza A JI ID NOW (08/15/2024 11:29 AM EST) Only the most recent of2 resultswithin the time period is included. Influenza A Negative Negative, Indeterminate [facility] QC Media Lot # [id number] [facility] Lot# Expiration Date [facility] Swab 08/15/2024 11:2 9 AM EST us Zeinab Sykes MD POINT OF CARE TEST ENTER /EDIT ORDERABLES Final Result [facility] [address] [place] [phone] * POCT Rapid Covid-19 BinaxNOW (08/15/2024 11:29 AM EST) Only the most recent of2 resultswithin the time period is included. Rapid COVID Ag Negative [facility] QC Media Lot # [id number] [facility] Lot# Expiration Date [id number] [facility] Swab 08/15/2024 11:2 9 AM EST Zeinab Sykes MD POINT OF CARE TEST ENTER /EDIT ORDERABLES Final Result Performing Organization Address City/[facility]/ZIP Co de Phone Number [facility] [address] [place] [phone] * POCT Rapid Influenza B JI ID NOW (08/15/2024 11:28 AM EST) Only the most recent of2 resultswithin the time period is included. Pathologist [facility] Influenza B Negative Negative, Indeterminate [facility] QC Media Lot # [id number] [facility] Lot# Expiration Date 11526 [facility] Swab 08/15/2024 11:2 8 AM EST Zeinab Sykes MD POINT OF CARE TEST ENTER /EDIT ORDERABLES Final Result Performing Organization Address City/[facility]/ZIP Co de Phone Number [facility] [address] [place] [phone] * (ABNORMAL) POCT Glucose (08/15/2024 10:38 AM EST) Pathologist [facility] Glucose Blood, POC 202(A) 60 - 200 mg/dL QC Media Lot # [id number] Lot# Expiration Date [id number] Blood Capillary blood specimen / Unknown 08/15/2024 10:38 AM EST Zeinab Sykes MD POINT OF CARE TEST ENTER /EDIT ORDERABLES Final Result * POCT Rapid RSV JI ID NOW (08/08/2024 5:54 PM EST) RSV Rapid Ag POC Negative Negative [facility] Swab 08/08/2024 5:54 PM EST Lia Martinez NP POINT OF CARE TEST ENTER/EDIT O RDERABLES Final Result Performing Organization Address [facility] Co de Phone Number [facility] [address] [place] [phone] * POCT DIDIER-14 Urine Drug Screen (07/31/2024 1:45 PM EST) Only the most recent of2 resultswithin the time period is included. TCA, Urine Positive Oxycodone Screen, Urine Positive Urine Urine specimen obtained by clean catch procedure / Unknown 07/31/2024 1:45 PM EST Scarlett Onofre RN - 07/31/2024 1:45 PM EST UTOX cup Lot#[id number] Exp. 04/11/26 Internal Pass Control Zeinab Sykes MD POINT OF CARE TEST ENTER /EDIT ORDERABLES Final Result * Creatinine, Serum (07/03/2024 12:03 PM EST) Pathologist [facility] Creatinine, Serum 0.99 0.5 - 1.4 mg/dL [facility] Estimated Glomerular Filt Rate 56 [facility] Comment:Chronic Kidney Disea se: Estimated GFR < 60 mL/min/[id number] Kidney Disease: Estimated GFR < 15 mL/min/1.73m2 07/03/2024 12:0 3 PM EST 07/03/2024 12:03 PM EST us Generic External Data Provider LAB BLOOD ORDERAB LES Final Result Performing Organization Address City/[facility]/ZIP Co de Phone Number [facility] [address] [place] [phone] * (ABNORMAL) BUN (Blood Urea Nitrogen) (07/03/2024 12:03 PM EST) Urea Nitrogen (BUN) 18(H) 9 - 16 mg/dL [facility] 07/03/2024 12:0 3 PM EST 07/03/2024 12:03 PM EST us Generic External Data Provider LAB BLOOD ORDERAB LES Final Result [facility] [address] [place] [address] [phone] * Hematoxylin and Eosin Stain (06/08/2024 10:22 AM EST) 06/08/2024 10:2 2 AM EST 06/08/2024 11:27 AM EST Narrative [facility] - 06/12/2024 11:41 AM EST ----- ------- Name: Rhonda Fernández ? Age/Sex: 63/F ? : 1960 Unit#: [id number] ?? Attend Dr: Nolberto Quigley MD ?Re06/08/24 ?Status: DEP SDC ? Location: HO.SSS ?Disch: ? ----- ------- SPEC : [id number] ? RECD: 06/08/24 ? STATUS: ??SOUT ? REQ NUM: [id number] ? DARWIN: 06/08/242 ? SUBM DR: Nolberto Quigley MD ? ENTERED: ??06/08/24 ?SP TYPE: Surgical ? OTHR DR: [facility] ? ORDERED: ??HE Stain/4, Gross Micro L4/2 ? Diagnosis ?? A. ??Endometrium, polypectomy: ??Fragments of endometrial polyp; no atypia identified. ? B. ??Endometrium, curettage: ?- Fragments of endometrial polyp. ?- Background inactive endometrium. ?- No atypia identified. ?Clinical History Pre-Op Dx: ??Postmenopausal bleeding Post-Op Dx: Endometrial polyp ?Microscopic Description A, B. ??Microscopic sections reviewed. ? Material Received ?? A. Endometrial polyp ?? B. EMC ? Gross Description Received in two parts. Part A: ??Received in formalin labeled ?endometrial polyp? in a white cotton mesh suction sock device are multiple rubbery, beach and beach-pink irregular shards of tissue ranging from minute to 0.8 cm and aggregating 2.0 x 1.8 x 0.45 cm, submitted in toto in a cassette labeled A. Part B: ??Received in formalin labeled ?EMC? on blood-stained Telfa are multiple irregular fragments of beach-pink and red-maroon tissue and blood ranging from minute to 1.0 cm in greatest dimension. ??The largest fragment is sectioned and the specimen is entirely submitted in a cassette labeled B. CEDS ? CONTINUED ON NEXT PAGE ----- ------- Name: Rhonda Fernández ? Age/Sex: 63/F ? : 1960 Unit#: [id number] ?? Attend Dr: Nolberto Quigley MD ?Re06/08/24 ?Status: DEP [facility] ? Location: HO.SSS ?Disch: ? ----- ------- SPEC : [id number] ? RECD: 06/08/24-1126 ? STATUS: ??SOUT ? REQ NUM: [id number] ? DARWIN: 06/08/24-1021 ? SUBM DR: Nolberto Quigley MD ? ENTERED: ??06/08/24-1139 ?SP TYPE: Surgical ? OTHR DR: [facility] ? ORDERED: ??HE Stain/4, Gross Micro L4/2 ? Copies To: ?? [facility] ?? [address] ?? [place] [address] ? Nolberto Quigley MD ?? [facility] [place] [place] [facility] ?? [address] ?? [place] [address] ?? [phone] ----- ------- Signed (signature on file) Jimmy Trejo MD 06/12/24 1147 ? ----- ------- ? END OF REPORT ? Generic External Data Provider LAB BLOOD ORDERAB LES Final Result Performing Organization Address [facility] de Phone Number [facility] [address] [place] [phone] [phone] * (ABNORMAL) Glucose, Whole Blood (06/08/2024 9:44 AM EST) Glucose, Whole Blood 119(H) 60 - 115 mg/dL [facility] Comment:METER #: [id number] 06/08/2024 9:44 AM EST 06/08/2024 9:49 AM EST Generic External Data Provider LAB BLOOD ORDERAB LES Final Result Performing Organization Address [facility] de Phone Number [facility] [address] [place] [address] [phone] * Pap Smear (06/01/2024 2:43 PM EST) 06/01/2024 2:43 PM EST 06/04/2024 9:25 AM EST Narrative [facility] - 06/20/2024 7:51 AM EST ----- ------- Name: Rhonda Fernández ? Age/Sex: 63/F ? : 1960 Unit#: [id number] ?? Attend Dr: Aisha Mcclain CNM ?Re06/01/24 ?Status: DEP REF ? Location: HO.LNP ?Disch: ? ----- ------- SPEC : [id number] ?RECD: 06/04/24-924 ? STATUS: ??SOUT ? REQ NUM: [id number] ? DARWIN: 06/01/24-1443 ? SUBM DR: Aisha Mcclain CNM ? ENTERED: ??06/04/24-1002 ?SP TYPE: Pap Smr ?OTHR DR: Zeinab Sykes MD ? ORDERED: ??Pap Smear ? Interpretation ?? Satisfactory for evaluation. ?? Negative for intraepithelial lesion or malignancy. ?? No endocervical cells seen. ?? Mild inflammation. ? HPV High Risk: ??Negative ? HPV Genotyping 16: ??Negative ?? HPV Genotyping 18: ??Negative ?Clinical Information LMP: Postmenopausal Previous PAP test: Unknown date, WNL ? Material Received ?? ThinPrep-Cervical Copies To: ?? Zeinab Sykes MD ?? [facility] ?? [address] ?? [place] [address] ?? [phone] ?? Aisha Mcclain ?? [facility] [place] [place] Women[facility] Services ?? [address] ?? [place] ?? [phone] ----- ------- Signed (signature on file) INDERJIT Bloom (ASCP) 06/20/24 0751 ? ----- ------- ? END OF REPORT ? us Generic External Data Provider LAB CYTOLOGY JERED STAFFORD Final Result [facility] [address] [place] [address] [phone] * Drug Monitoring, Benzodiazepines, Quantitative, Urine (05/29/2024 12:00 PM EST) Pathologist Robbie Ruiz, GCMS Urine NEGATIVE [facility] Oxazepam, GCMS Urine NEGATIVE [facility] Lorazepam GCMS Urine NEGATIVE [facility] Alprazolam, GCMS Urine NEGATIVE [facility] Alphahydroxytriazolam, GCMS Ur NEGATIVE [facility] Temazepam, GCMS Urine NEGATIVE [facility] Alphahydroxymidazolam,GC MS Ur NEGATIVE [facility] Aminoclonazepam, GCMS Urine NEGATIVE [facility] Flurazepam Metabolite,GCMS Ur NEGATIVE [facility] Benzodiazepines Comments SEE NOTE [facility] Comment:This drug testing is for medical treatment only.Analysis was performed as non-forensic testing andthese results should be used only by healthcareproviders to render diagnosis or treatment, or tomonitor progress of medical conditions.LDT Notes:Confirmation tests were developed and their analyticalperformance characteristics have been determined by[facility]. It has not been cleared or approvedby the FDA. This assay has been validated pursuant tothe CLIA regulations and is used for clinical purposes.Healthcare Providers needing Interpretation assistance,please contact us at [phone] ( )M-F, 8am to 10pm ESTTHIS TEST PERFORMED AT:[facility] [place] [phone] DIRECTOR: REHAN STAFFORD MD 05/29/2024 12:0 0 PM EST 05/29/2024 2:02 PM EST us Alma Jha SERVICES MANAGER LAB URINE ORDERABLES Final Res ult [facility] [address] [place] [phone] [phone] * Drug Monitoring, Fentanyl, with Confirmation, Urine (05/29/2024 12:00 PM EST) Fentanyl, Ur NEGATIVE [facility] Comment:REFERENCE RANGE: <0. 5 ng/mL Norfentanyl, Ur NEGATIVE [facility] Comment:REFERENCE RANGE: <0. 5 ng/mL Fentanyl Note SEE NOTE [facility] Comment:This drug testing is for medical treatment only.Analysis was performed as non-forensic testing andthese results should be used only by healthcareproviders to render diagnosis or treatment, or tomonitor progress of medical conditions.LDT Notes:Confirmation tests were developed and their analyticalperformance characteristics have been determined by[facility]. It has not been cleared or approvedby the FDA. This assay has been validated pursuant tothe CLIA regulations and is used for clinical purposes.Healthcare Providers needing Interpretation assistance,please contact us at [phone] ( )M-F, 8am to 10pm ESTTHIS TEST PERFORMED AT:[facility] [place] [phone] DIRECTOR: REHAN STAFFORD MD Urine (Urine, Random) 05/29/2024 12:00 PM EST 05/29/2024 1:10 PM EST Alma Jha [facility] LAB URINE ORDERABLES Final Res ult [facility] [address] [place] [phone] * (ABNORMAL) POCT HGB A1C (03/29/2024 10:47 AM EDT) Hemoglobin A1C 6.3(A) 4.0 - 6.0 % QC Media Lot # [id number] Lot# Expiration Date [id number] Blood 03/29/2024 10:4 7 AM EDT Zeinab Sykes MD POINT OF CARE TEST ENTER /EDIT ORDERABLES Final Result * (ABNORMAL) Lipid Panel with Reflex to Direct LDL (01/06/2024 12:38 PM EDT) Triglycerides 91 <150 mg/dL [facility] Comment:Desirable Triglyceri de: less than 150 mg/dLBorderline High Triglyceride 150-199 mg/dLHigh Triglyceride: 200-499 mg/dLVery High Triglyceride: greater than or equal to 5OO mg/dL Cholesterol 211(H) <200 mg/dL [facility] Comment:Desirable Cholestero l: less than 200 mg/dLBorderline High Cholesterol: 200-239 mg/dLHigh Cholesterol: greater than 239 mg/dL LDL Cholesterol Calculated 132(H) <100 mg/dL [facility] Comment:Desirable LDL: less than 100 mg/dLNear Optimal/Above Optimal LDL: 110- 129 mg/dLBorderline High LDL: 130-159 mg/dLHigh LDL: 160-189 mg/dLVery High LDL: greater than or equal to 190 mg/dL HDL Cholesterol 61 >40 mg/dL [facility] Comment:Desirable HDL: great er than 40 mg/dL Note: This HDL assay may give artificially low results in patients with liver disease. Blood 01/06/2024 12:3 8 PM EDT 01/06/2024 4:21 PM EDT us Zeinab Sykes MD LAB BLOOD ORDERABLES Fin al Result [facility] [address] [place] [phone] * Hepatitis Panel, General (01/06/2024 12:38 PM EDT) Hepatitis A IgM Nonreactive Nonreactive [facility] Comment:IgM antibodies to GUERIN V not detected; does not exclude earlyacute or recovered HAV infection. ~Hepatitis B Surface Antibody REACTIVE Nonreactive [facility] Comment:REACTIVE: > 11.99 mI U/mL Hepatitis B Core Antibody Nonreactive Nonreactive [facility] Hepatitis C Antibody Nonreactive Nonreactive [facility] Comment:Antibodies to HCV no t detected; does not exclude early acuteHCV infection. Hepatitis B Surface Ag Negative Negative [facility] Blood 01/06/2024 12:3 8 PM EDT 01/06/2024 4:21 PM EDT Zeinab Sykes MD LAB BLOOD ORDERABLES Fin al Result Performing Organization Address [facility] Co de Phone Number [facility] [address] [place] [phone] * HIV-1/2 Antigen and Antibodies, Fourth Generation, with Reflexes (01/06/2024 12:38 PM EDT) HIV AB/AG Nonreactive Nonreactive [facility] Comment:HIV-1 p24 Ag and/or HIV-1/HIV-2 Ab not detected.A test result that is nonreactive does not exclude thepossibility of exposure to or infection with HIV-1 and/orHIV-2. Nonreactive results in this assay for individualswith prior exposure to HIV-1 and/or HIV-2 may be due toantigen and antibody levels that are below the limit ofdetection of this assay.The WebVisible HIV Ag/Ab Combo assay result andsupplemental assay results should be interpreted inconjunction with the patient's clinical presentation,history and other laboratory results. If the results areinconsistent with clinical evidence, additional testing issuggested to confirm the result. Blood Venous blood specimen / Unknown 01/06/2024 12:38 PM EDT 01/06/2024 4:21 PM EDT Zeinab Sykes MD LAB BLOOD ORDERABLES Fin al Result Performing Organization Address [facility] Co de Phone Number [facility] [address] [place] [phone] * Mammography Report 1 (03/15/2022 5:00 PM EDT) Anatomical Region Laterality Modality Breast Bilateral Mammography 03/15/2022 5:00 PM EDT Narrative 03/16/2022 8:33 AM EDT Refer to the Notes tab for result details [facility] Procedure: Mammography Report 1 Procedure Note ProviderParag MD - 10/10/2022 Refer to the Notes tab for result details [facility] Procedure: Mammography Report 1 Evelyn Ledesma SERVICES MANAGER IMG BI PROCEDURES Final Re sult * ALBUMIN, RANDOM URINE W/CREATININE (03/08/2022 3:04 PM EDT) Microalbumin Urine 1.2 See Note: mg/dL [facility] Comment: Reference Range: ?? Reference Range Not established Microalb/Creat Ratio 5 <30 mcg/mg creat [facility] Comment: ?? The ADA defines abnormalities in albumin excretion as follows: ?? Albuminuria Category ?Result (mcg/mg creatinine) ?? Normal to Mildly increased ?? <30 Moderately increased ? 30-299 ?? Severely increased ? > OR = 300 ?? The ADA recommends that at least two of three specimens collected within a 3-6 month period be abnormal before considering a patient to be within a diagnostic category. Creatinine, Urine 244 20 - 275 mg/dL [facility] 03/08/2022 3:04 PM EDT Rebekah Guevara NP LAB URINE ORDERABLES Final Res ult [facility] [address] * HPV mRNA E6/E7 (07/07/2020 12:00 AM EST) HPV nRNA E6/E7 Not Detected Not Detected [facility] Comment: This test was performed using the APTIMA HPV Assay ([employer] This assay detects E6/E7 viral messenger RNA (mRNA) from 14 high-risk HPV types (16,18,31,33,35,39,45,51,52,56,58,59,66,68). ?? The analytical performance characteristics of this assay have been determined by [facility]. The modifications have not been cleared or approved by the FDA. This assay has been validated pursuant to the CLIA regulations and is used for clinical purposes. 07/07/2020 us Historical Provider LAB BLOOD ORDERABLES Sera hayes Result [facility] [address] from Last 3 Months or Most Recently Relevant to Health Maintenance Insurance [place] [facility] [employer] [facility] Care Teams Grocery Store Manager Relationship Specialty Start Date End Date Zeinab Sykes MD [address] [place] [address] PCP - General Internal Medicine 01/02/24 Tomeka Martins Sketch ArtistAffiliate Marketing Manager 10/27/23
--- OUTSIDE RECORDS SUMMARY | 2024-08-16 17:27 | XMS_ITS | Encounter Summary ---
Author Organization [facility] [facility] Address [address] [place] [address] 7 [place] [address] Care Team Providers Care Material Processor Name Role Phone Evelyn Ledesma Primary Care Provider [phone] Oralia Aguila MD Primary Care Provider [phone] Zeinab Sykes MD Primary Care Provider + Reason for Visit * Reason Onset Date Comments Referral 02/03/2023 Renewal Encounter Details Date Type Department Care Team (Late st Contact Info) Description 02/03/2023 Telephone [facility] MEDICINE [address] [place] [address] Evelyn Ledesma FNP [address] [place] [address] Dept [place] [address] Referral (Renewal ) Social History Tobacco Use Types Packs/Day Years [...] encounter Miscellaneous Notes * Telephone Encounter - Lisa Galicia - 02/03/2023 2:09 PM EDT Tc from patient requesting a renewal for OT referral to Physical Therapy, [facility]. States she was unable to go at the time and the office told her it's and needs a new one. documented in this encounter Plan of Treatment Upcoming Encounters Date Type Department Care Team (Late st Contact Info) Description 09/25/2024 9:45 AM EDT Office Visit [address] [address] 10/09/2024 11:45 AM EDT Office Visit [address] [address] Zeinab Sykes MD [address] [place], [place] [phone] documented as of this encounter Goals Goal Patient Goal Type Associated Problems Recent Progress Patient-Stated? Author Patient will manage their medication General On track( 023 11:18 AM EDT) Citlali Ocampo, PharmD Note: Began medboxes. Goal achieved 11/19/22. Patient graduated from [facility]. documented as of this encounter Visit Diagnoses Not on filedocumented in this encounter Care Teams Material Processor Relationship Specialty Start Date End Date Evelyn Ledesma FNP PCP - General Family Medicine 03/15/22 04/25/23 Oralia Aguila MD [address] [place] [address] [phone] PCP - General Family Medicine 04/26/23 01/01/24 Zeinab Sykes MD [address] [place] [address] [phone] PCP - General Internal Medicine 01/02/24 Tomeka Martins Glove Parts CutterEngineering Project Designer 10/27/23 documented as of this encounter
--- OUTSIDE RECORDS SUMMARY | 2024-08-16 17:27 | XMS_ITS | Clinical Summary ---
Author Organization [facility] Address [address] [place] [address] Care Team Providers Care Heavy Equipment Sales Manager Name Role Phone Meryl Montes Primary Care Provider Surgical History Surgery Date Site/Laterality Comments BREAST REDUCTION PROCEDURE: [facility] BREAST REDUCTION BACK SURGERY PROCEDURE: HISTORICAL BACK SURGERY; COMMENT: L4-5 rt L5-S1 decomp 05/26/18 Medical History Medical History Date Comments Asthma DX:Asthma Diabetes mellitus type 2, co ntrolled, with complications (CMS/HCC) DX:Diabetes mellitus type 2, controlled, with complications (HCC) Essential hypertension DX:Essent ial hypertension Depressive disorder DX:Depressiv e disorder Arthritis DX:Arthritis Memory loss DX:Memory loss Incontinence DX:Incontinence Social History Tobacco Use Types Packs/Day Years Used Date Smoking Tobacco: Never Smokeless Tobacco: Never Alcohol Use Standard Drinks/Week Comments Never 0 (1 standard drink = 0.6 oz pur e alcohol) Sex and Gender Information Value Date Recorded Sex Assigned at Not on file Gender Identity Not on file Sexual Orientation Not on file Obstetrics History Last Filed Vital Signs Vital Sign Reading Time Taken Comments Blood Pressure - - Pulse - - Temperature - - Respiratory Rate - - Oxygen Saturation - - Inhaled Oxygen Concentration - - Weight 82.1 kg (181 lb) 12/20/2022 4:08 PM EDT Height 160 cm (5' 3 ) 11/17/2022 4:18 PM EDT Body Mass Index 32.06 11/17/2022 4:18 PM EDT Plan of Treatment Health Maintenance Due Date Last Done Comments Breast Cancer Screening 1960 DTaP,Tdap,and Td Vaccines (1 - Tdap) 11/05/1978 Cervical Cancer Screening: P ap Smear 11/05/1980 Zoster Vaccines (1 of 2) 11/05/2009 Colorectal Cancer Screening: Colonoscopy 06/27/2022 Depression Screening 06/27/2022 HIV Screening 06/27/2022 Hepatitis C Screening 06/27/2022 Social Influencers of Health Screening 06/27/2022 COVID-19 Vaccine ( - 2023-2 5 season) 2024 Influenza Vaccine (#1) 2024 RSV Immunization Patients 60 + Years Old (1 - 1-dose 75+ series) 11/05/2034 HIB Vaccines Aged Out No longer eligi ble based on patient's age to complete this topic HPV Vaccines Aged Out No longer eligi ble based on patient's age to complete this topic Hepatitis A Vaccines Aged Out No long er eligible based on patient's age to complete this topic Hepatitis B Vaccines Aged Out No long er eligible based on patient's age to complete this topic IPV Vaccines Aged Out No longer eligi ble based on patient's age to complete this topic MMR Vaccines Aged Out No longer eligi ble based on patient's age to complete this topic Meningococcal ACWY Vaccine Aged Out N o longer eligible based on patient's age to complete this topic Pneumococcal Vaccine: Pediat rics (0 to 5 Years) and At-Risk Patients (6 to 64 Years) Aged Out No longer eligible b ased on patient's age to complete this topic RSV Immunization Patients Un ghazala 20 months Aged Out No longer eligible b ased on patient's age to complete this topic Varicella Vaccines Aged Out No longer eligible based on patient's age to complete this topic Care Teams Heavy Equipment Sales Manager Relationship Specialty Start Date End Date Meryl Montes [address] [place] [phone] PCP - General 05/07/22
--- OUTSIDE RECORDS SUMMARY | 2024-08-16 17:27 | XMS_ITS | Encounter Summary ---
Author Organization [employer] [facility] Address [address] [place] [address] 7t [place] [address] Care Team Providers Care Turbine Engineer Name Role Phone Evelyn Ledesma Primary Care Provider [phone] Oralia Aguila MD Primary Care Provider [phone] Zeinab Sykes MD Primary Care Provider + Reason for Visit * Reason Onset Date Comments Appointment Request 12/20/2022 Encounter Details Date Type Department Care Team (Late st Contact Info) Description 12/20/2022 Telephone [facility] MEDICINE [address] [place] [address] Evelyn Ledesma FNP [address] [place] [address] Dept [place] [address] Appointment Request Social History Tobacco Use Types Packs/Day Years [...] suspected to have Coronavirus/COVID-19? No / Unsure 12/15/2022 10:56 AM EDT documented as of this encounter Miscellaneous Notes * Telephone Encounter - Aurelia Barron - 12/20/2022 10:16 AM EDT Tc from pt requesting a call from a nurse in regards to pre-op appt scheduled on January 14 2023. ( Ptwould like to change a appt for an earlier day) Please contact pt at [phone] documented in this encounter Plan of Treatment Upcoming Encounters Date Type Department Care Team (Late st Contact Info) Description 09/25/2024 9:45 AM EDT Office Visit [facility] MEDICINE [address] [place] [phone] 10/09/2024 11:45 AM EDT Office Visit [facility] MEDICINE [address] [place] [address] Zeinab Sykes MD [address] [place] [address] documented as of this encounter Goals Goal Patient Goal Type Associated Problems Recent Progress Patient-Stated? Author Patient will manage their medication General On track( 023 11:18 AM EDT) Citlali Ocampo PharmD Note: Began medboxes. Goal achieved 11/19/22. Patient graduated from [facility]. documented as of this encounter Visit Diagnoses Not on filedocumented in this encounter Care Teams Turbine Engineer Relationship Specialty Start Date End Date Evelyn Ledesma FNP PCP - General Family Medicine 03/15/22 04/25/23 Oralia Aguila MD [address] [place] [phone] PCP - General Family Medicine 04/26/23 01/01/24 Zeinab Sykes MD [address] [place] [phone] PCP - General Internal Medicine 01/02/24 Tomeka Martins Patient Services AssistantMarketing Automation Analyst 10/27/23 documented as of this encounter
--- OUTSIDE RECORDS SUMMARY | 2024-08-16 17:27 | XMS_ITS | Encounter Summary ---
Author Organization [facility] Address [address] [place] [address] 7t [place] [address] Care Team Providers Care Print Designer Name Role Phone Evelyn Ledesma Primary Care Provider [phone] Oralia Aguila MD Primary Care Provider [phone] Zeinab Sykes MD Primary Care Provider + Encounter Details Date Type Department Care Team (Late Contact Info) Description 08/20/2022 Orders Only [facility] MEDICINE [address] [place] [phone] Karen Henderson FNP Social History Tobacco Use Types Packs/Day Years [...] was confirmed or suspected to have Coronavirus/COVID-19? Unable to assess 08/20/2022 1:31 PM EST documented as of this encounter Plan of Treatment Upcoming Encounters Date Type Department Care Team (Late Contact Info) Description 09/25/2024 9:45 AM EDT Office Visit [facility] MEDICINE [address] [place] [address] 10/09/2024 11:45 AM EDT Office Visit [facility] MEDICINE [address] [place] [address] Zeinab Sykes MD [address] [place] [address] documented as of this encounter Visit Diagnoses Not on filedocumented in this encounter Care Teams Print Designer Relationship Specialty Start Date End Date Evelyn Ledesma FNP PCP - General Family Medicine 03/15/22 04/25/23 Oralia Aguila MD [address] [place] [address] [phone] PCP - General Family Medicine 04/26/23 01/01/24 Zeinab Sykes MD [address] [place] [phone] PCP - General Internal Medicine 01/02/24 Tomeka Martins [facility] ManagerTester Sound 10/27/23 documented as of this encounter
--- OUTSIDE RECORDS SUMMARY | 2024-08-16 17:27 | XMS_ITS | Encounter Summary ---
Author Organization Mobile Location, [facility] Address [address] 7t [place] [address] Care Team Providers Care Lye Bath Operator Name Role Phone eZinab Sykes MD Primary Care Provider + Encounter Details Date Type Department Care Team ([facility] st Contact Info) Description 08/08/2024 3:00 PM EST Office Visit [facility] ADULT DENTAL [address] [place] [address] Gay Thompson, DDS [address] [place] [address] Fracture of removable partial denture (Primary Dx) Social History Tobacco Use Types Packs/Day Years [...] is your housing situation today? I have tessasergio de la rosa 12/21/2023 Think about the [...] AM EDT documented as of this encounter Progress Notes * Gay Thompson DDS - 08/08/2024 3:00 PM EST Patient ID: Rhonda Mclaughlin is a 63 y.o. female. Time Out: No data recorded Location: [facility] Tooth: Mandible Procedure: Delivery repaired denture Verified the above with patient, activities assistant, and provider. Confirmed via patient's chart, intraorally and by radiographs. Refiner Operator: not applicable No chief complaint on file. Medical Hx: Vitals: There were no vitals taken for this visit. Medications, Med Hx reviewed with patient and updated in chart. Consent Obtained: The risks, benefits, indications, potential complications, and alternatives were explained to the patient and informed consent was obtained with good understanding. Treatment Provided: Dental procedures in this visit D5611 - PROSTHODONTICS (REMOVABLE) - REPAIRS TO PARTIAL DENTURES - REPAIR RESIN PARTIAL DENTURE BASE, MANDIBULAR (Completed) Service provider: Gay Thompson DDS Billing provider: Gay Thompson DDS [id number] - ADJUNCTIVE GENERAL SERVICES - PROFESSIONAL VISITS - CASE PRESENTATION, SUBSEQUENT TO DETAILED AND EXTENSIVE TREATMENT PLANNING (Completed) Service provider: Gay Thompson DDS Billing provider: Gay Thompson DDS Tried in denture(s) -Evaluated for comfort, fit, phonetics, and stability (f, v, s, th sounds; swallow, yawn, etc) -Evaluated for satisfactory esthetics. -Occlusion verified; adjustments made as necessary. Patient has received information sheet for denture care and expectations. NV: 6 mo periodic exam Steam Pipe Fitter: Jayne Cabrera Dentist: Gay Thompson DDS documented in this encounter Plan of Treatment Upcoming Encounters Date Type Department Care Team (Late st Contact Info) Description 09/25/2024 9:45 AM EDT Office Visit [facility] MEDICINE [address] [place] [address] [phone] 10/09/2024 11:45 AM EDT Office Visit [address] [phone] Zeinab Sykes MD [address] [place] [address] [phone] documented as of this encounter Goals Goal Patient Goal Type Associated Problems Recent Progress Patient-Stated? Author Patient will manage their medication General On track( 023 11:18 AM EDT) Citlali Ocampo, PharmD Note: Began medboxes. Goal achieved 11/19/22. Patient graduated from [facility]. documented as of this encounter Procedures Procedure Name Priority Date/Time Associated Diagnosis Comments PROSTHODONTICS (REMOVABLE) - REPAIRS TO PARTIAL DENTURES - REPAIR RESIN PARTIAL DENTURE BASE, MANDIBULAR Routine 08/08/2024 3:00 PM EST Fracture of removable partial denture ADJUNCTIVE GENERAL SERVICES - PROFESSIONAL VISITS - CASE PRESENTATION, SUBSEQUENT TO DETAILED AND EXTENSIVE TREATMENT PLANNING Routine 08/08/2024 3:00 PM EST Fracture of removable partial denture documented in this encounter Visit Diagnoses Diagnosis Fracture of removable partial denture- Primary documented in this encounter Additional Health Concerns Assessment Noted Time PHQ-9 Depression Total Score: 18 024 1:46 PM EDT documented as of this encounter Care Teams Lye Bath Operator Relationship Specialty Start Date End Date Zeinab Sykes MD [address] [place] [phone] PCP - General Internal Medicine 01/02/24 Tomeka Martins Plugger ManMainframe Programmer 10/27/23 documented as of this encounter
--- OUTSIDE RECORDS SUMMARY | 2024-08-16 17:27 | XMS_ITS | Encounter Summary ---
Author Organization [employer] [facility] Address [address] 7t [place] [address] Care Team Providers Care Service Attendant Cafeteria Name Role Phone Evelyn Ledesma Primary Care Provider [phone] Oralia Aguila MD Primary Care Provider [phone] Zeinab Sykes MD Primary Care Provider + Encounter Details Date Type Department Care Team ([facility] Contact Info) Description 10/22/2022 Orders Only [facility] MEDICINE [address] [place] [address] Evelyn Ledesma FNP [address] [place] [address] Dept [place] [address] Social History Tobacco Use Types Packs/Day Years [...] Upcoming Encounters Date Type Department Care Team ([facility] Contact Info) Description 09/25/2024 9:45 AM EDT Office Visit [facility] MEDICINE [address] [place] [address] 10/09/2024 11:45 AM EDT Office Visit [address] [phone] Zeinab Sykes MD [address] [place] [phone] documented as of this encounter Visit Diagnoses Not on filedocumented in this encounter Care Teams Service Attendant Cafeteria Relationship Specialty Start Date End Date Evelyn Ledesma FNP PCP - General Family Medicine 03/15/22 04/25/23 Oralia Aguila MD [address] [place] [phone] PCP - General Family Medicine 04/26/23 01/01/24 Zeinab Sykes MD [address] [place] [phone] PCP - General Internal Medicine 01/02/24 Tomeka Martins Psychologist EngineeringUsability Strategist 10/27/23 documented as of this encounter
--- OUTSIDE RECORDS SUMMARY | 2024-08-16 17:27 | XMS_ITS | Encounter Summary ---
Author Organization [email or web address] [facility] Address [address] [place] [address] 7t [place] [address] Care Team Providers Care Photoengraving Etcher Name Role Phone Zeinab Sykes MD Primary Care Provider + Reason for Referral * Hospital - Outpatient (Routine) - Authorized Specialty Diagnoses / Procedures Referred By Contac t Referred To Contact Diagnoses ADELAIDE (obstructive sleep apnea) Procedures Polysomnography Zeinab Sykes MD [address] [place] [address] Phone: tel: fax: [address] Phone: tel: fax: Referral ID Status Reason Start Date Expiration Date V isits Requested Visits Authorized [id number] Authorized 08/15/2024 08/15/2025 1 1 Reason for Visit * Reason Comments Diabetes Follow-up Leg pain; pt states that she is noticing that at night she feels like she isn't breathing properly or receiving enough oxygen when she sleeps; also needs a housing letter stating specifically about needing to be accommodated on a first floor apt;, also heightened anxiety which causes pt to overeat Encounter Details Date Type Department Care Team ([facility] st Contact Info) Description 08/15/2024 10:15 AM EST Office Visit [facility] [address] [place], [place] [phone] Zeinab Sykes MD [address] [place] [address] Type 2 diabetes mellitus without complication, without long-term current use of insulin (CMS/HCC) (Primary Dx); Essential hypertension; Postmenopause bleeding; Recurrent major depressive disorder, in partial remission (CMS/HCC); Moderate persistent asthma with acute exacerbation; ADELAIDE (obstructive sleep apnea); Housing insecurity; Nasal congestion Social History Tobacco Use Types Packs/Day Years [...] t he electric, gas, oil or water [employer] threatened to shut off services in your [...] Mass Index 35.29 08/15/2024 10:29 AM EST documented in this encounter Miscellaneous Notes * Assessment & Plan Note - Shilpa Ashford MA - 08/15/2024 1:36 PM EST Associated Problem(s): Housing insecurity See above. Applying for housing and need handicap access. * Assessment & Plan Note - Shilpa Ashford MA - 08/15/2024 1:35 PM EST Associated Problem(s): ADELAIDE (obstructive sleep apnea) Patient returned CPAP, she did not tolerate mask. Repeat sleep study and titration. I will prescribe nasal mask. * Assessment & Plan Note - Shilpa Ashford MA - 08/15/2024 1:32 PM EST Associated Problem(s): Moderate persistent asthma with acute exacerbation DuoNeb nebullization today and will continue BID at home for 5 days and after PRN. FU in 1 month. * Assessment & Plan Note - Shilpa Ashford MA - 08/15/2024 1:30 PM EST Associated Problem(s): Recurrent major depressive disorder, in partial remission (CMS/HCC) Uncontrolled. FU with [facility] for adjustment. Patient waiting for housing assignment, needs a letter with functional limitations including handicap entrance. Drop release of information at medical records. * Assessment & Plan Note - Shilpa Ashford MA - 08/15/2024 1:28 PM EST Associated Problem(s): Postmenopause bleeding Result s/p endometrial polyp resection. * Assessment & Plan Note - Shilpa Ashford MA - 08/15/2024 1:25 PM EST Associated Problem(s): Essential hypertension Controlled. Compliant w/ Exforge, Chlorthalidone. Counseled re low salt diet/increase moderate physical activity. Check home BP BIW and prn CP/GUERIN/HART * Assessment & Plan Note - Shilpa Ashford MA - 08/15/2024 1:23 PM EST Associated Problem(s): Type 2 diabetes mellitus without complication (CMS/HCC) Controlled. Hyperglycemia today, most likely current URI. Continue on lifestyle modifications only, no meds for now. Counseled re more frequent low calorie/carb meals. Check fgstk 1x daily Encouraged physical activity as tolerated. FU in 3-4 months. * Assessment & Plan Note - Zeinab Sykes MD - 08/15/2024 12:53 PM EST Associated Problem(s): Nasal congestion Residual from URI, now improving. Continue Flonase and Tylenol as needed. DuoNeb nebulization today for asthma exacerbation and she will return to clinic if symptoms get worse or she develops fever again. documented in this encounter Plan of Treatment Upcoming Encounters Date Type Department Care Team (Late st Contact Info) Description 09/25/2024 9:45 AM EDT Office Visit [facility] [address] [place] [address] 10/09/2024 11:45 AM EDT Office Visit [facility] [address] [place] [place] [address] [phone] Zeinab Sykes MD [address] [place] [address] Scheduled Orders Name Type Priority Associated Diagnoses Orde r Schedule Polysomnography Sleep Center Routine ADELAIDE (obstructive sleep apnea) Expected: 08/15/2024 (Approximate), Expires: 08/15/2025 documented as of this encounter Goals Goal Patient Goal Type Associated Problems Recent Progress Patient-Stated? Author Patient will manage their medication General On track( 023 11:18 AM EDT) Citlali Ocampo, PharmCatrachita Note: Began medboxes. Goal achieved 11/19/22. Patient graduated from [facility]. documented as of this encounter Procedures [...] complication, without long-term current use of insulin ([facility]/HCC) documented in this encounter Results * POCT Rapid Influenza A JI ID NOW (08/15/2024 11:29 AM EST) Influenza A Negative Negative, Indeterminate [facility] QC Media Lot # [id number] [facility] Lot# Expiration Date [facility] Swab 08/15/2024 11:2 9 AM EST Zeinab Sykes MD POINT OF CARE TEST ENTER /EDIT ORDERABLES Final Result Performing Organization Address [facility]/ZIP Co de Phone Number [facility] [address] [place] [phone] * POCT Rapid Covid-19 BinaxNOW (08/15/2024 11:29 AM EST) Rapid COVID Ag Negative [facility] QC Media Lot # [id number] [facility] Lot# Expiration Date [id number] [facility] Swab 08/15/2024 11:2 9 AM EST Zeinab Sykes MD POINT OF CARE TEST ENTER /EDIT ORDERABLES Final Result Performing Organization Address [facility]/ZIP Co de Phone Number [facility] [address] [place] [phone] * POCT Rapid Influenza B JI ID NOW (08/15/2024 11:28 AM EST) Influenza B Negative Negative, Indeterminate [facility] QC Media Lot # [id number] [facility] Lot# Expiration Date [facility] Swab 08/15/2024 11:2 8 AM EST Zeinab Sykes MD POINT OF CARE TEST ENTER /EDIT ORDERABLES Final Result Performing Organization Address City/[facility]/ZIP Co de Phone Number [facility] [address] [place] [address] [phone] * (ABNORMAL) POCT Glucose (08/15/2024 10:38 AM EST) Glucose Blood, POC 202(A) 60 - 200 mg/dL QC Media Lot # [id number] Lot# Expiration Date Blood Capillary blood specimen / Unknown 08/15/2024 10:38 AM EST Zeinab Sykes MD POINT OF CARE TEST ENTER /EDIT ORDERABLES Final Result documented in this encounter Visit Diagnoses Diagnosis Type 2 diabetes mellitus without complication, without long-term current use of insulin ([facility])- Primary Essential hypertension Unspecified essential hypertension Postmenopause bleeding Postmenopausal bleeding Recurrent major depressive disorder, in partial remission ([facility]) Moderate persistent asthma with acute exacerbation ADELAIDE (obstructive sleep apnea) Obstructive sleep apnea (adult) (pediatric) Housing insecurity Nasal congestion Other diseases of nasal cavity and sinuses documented in this encounter Administered Medications Inactive Administered Medications - up to 3 most recent administrations Medication Order MAR Action Action Date Dose Rate Site ipratropium-albuterol (Duo-Neb) 0.5-2.5 mg/3 mL nebulizer solution 3 mL 3 mL, Nebulization, Once, On Tue08/15/24 at 1115, For 1 doseIndications:Moderate persistent asthma with acute exacerbation Given 08/15/2024 11:15 AM EST 3 mL documented in this encounter Additional Health Concerns Assessment Noted Time PHQ-9 Depression Total Score: 22 025 10:31 AM EST documented as of this encounter Care Teams Photoengraving Etcher Relationship Specialty Start Date End Date Zeinab Sykes MD [address] [place] [address] PCP - General Internal Medicine 01/02/24 Tomeka Martins Pellet Press OperatorPolymerization Oven Operator 10/27/23 documented as of this encounter
--- OUTSIDE RECORDS SUMMARY | 2024-08-16 17:27 | XMS_ITS | Encounter Summary ---
Author Organization [employer] [facility] Address [address] [place] [address] 7t [place] [address] Care Team Providers Care Seismic Survey Assistant Name Role Phone Oralia Aguila MD Primary Care Provider [phone] Zeinab Sykes MD Primary Care Provider + Reason for Visit * Reason Comments Med Refill Encounter Details Date Type Department Care Team (Late Contact Info) Description 08/09/2023 Refill [facility] [address] [place] [address] Oralia Aguila MD [address] [place], [place] [phone] Other intervertebral disc displacement, lumbar region Social [...] Description 09/25/2024 9:45 AM EDT Office Visit [address] [address] 10/09/2024 11:45 AM EDT Office Visit [address] [address] Zeinab Sykes MD [address] [place], [place] [phone] documented as of this encounter Goals Goal Patient Goal Type Associated Problems Recent Progress Patient-Stated? Author Patient will manage their medication General On track( 023 11:18 AM EDT) Citlali Ocampo, Anoop Note: Began medboxes. Goal achieved 11/19/22. Patient graduated from [facility]. documented as of this encounter Visit Diagnoses Diagnosis Other intervertebral disc displacement, lumbar region documented in this encounter Care Teams Seismic Survey Assistant Relationship Specialty Start Date End Date Oralia Aguila MD [address] [place] [phone] PCP - General Family Medicine 04/26/23 01/01/24 Zeinab Sykes MD [address] [place] [address] PCP - General Internal Medicine 01/02/24 Tomeka Martins Shelf FillerLaboratory Aide 10/27/23 documented as of this encounter
--- OUTSIDE RECORDS SUMMARY | 2024-08-16 17:27 | XMS_ITS | Encounter Summary ---
Author Organization [employer] [facility] Address [address] [place] [address] 7t [place] [address] Care Team Providers Care Weaving Inspector Name Role Phone Oralia Aguila MD Primary Care Provider [phone] Zeinab Sykes MD Primary Care Provider + Reason for Visit * Reason Onset Date Comments antibiotics pre med 07/19/2023 Encounter Details Date Type Department Care Team ([facility] st Contact Info) Description 07/19/2023 Telephone [facility] ADULT D[facility]AL [address] [place] [address] AttStefany terry, DDS [address] [place], [place] [phone] antibiotics pre med Social History Tobacco Use Types Packs/Day Years [...] encounter Miscellaneous Notes * Telephone Encounter - Cely Lu - 07/19/2023 10:55 AM EST Patient medical clearance checked off on box that does not need antibiotic for treatment but precautions for treatment explanation on bottom of for states patient must take abx for 2 years follow surgery which was 11/2022. Can abx script be sent to pharmacy? Patient coming on Tuesday for cleaning and exam DR documented in this encounter Plan of Treatment Upcoming Encounters Date Type Department Care Team (Late st Contact Info) Description 09/25/2024 9:45 AM EDT Office Visit [address] [address] 10/09/2024 11:45 AM EDT Office Visit [address] [address] Zeinab Sykes MD [address] [place] [address] documented as of this encounter Goals Goal Patient Goal Type Associated Problems Recent Progress Patient-Stated? Author Patient will manage their medication General On track( 023 11:18 AM EDT) Citlali Ocampo, Anoop Note: Began medboxes. Goal achieved 11/19/22. Patient graduated from [facility]. documented as of this encounter Visit Diagnoses Not on filedocumented in this encounter Care Teams Weaving Inspector Relationship Specialty Start Date End Date Oralia Aguila MD [address] [place] [address] PCP - General Family Medicine 04/26/23 01/01/24 Zeinab Sykes MD [address] [place] [address] PCP - General Internal Medicine 01/02/24 Tomeka Martins Retail Planning ManagerImprovement Rn 10/27/23 documented as of this encounter
--- OUTSIDE RECORDS SUMMARY | 2024-08-16 17:27 | XMS_ITS | Encounter Summary ---
Author Organization [employer] Address [address] [place] [address] 7t [place] [address] Care Team Providers Care Automatic Equipment Technician Name Role Phone Evelyn Ledesma Primary Care Provider [phone] Oralia Aguila MD Primary Care Provider [phone] Zeinab Sykes MD Primary Care Provider + Reason for Visit * Reason Onset Date Comments medical clearance 02/11/2023 Encounter Details Date Type Department Care Team (Late st Contact Info) Description 02/11/2023 Telephone [facility] [address] [place] [address] Asad Shore DDS [address] [place] [address] medical clearance Social History Tobacco Use Types Packs/Day Years [...] * Telephone Encounter - Cely Lu - 02/11/2023 2:31 PM EDT Patient is stating that [facility] provider faxed over the medical clearance back to office but Ander not see it scanned. Can you confirmed if it was received? documented in this encounter Plan of Treatment Upcoming Encounters Date Type Department Care Team (Late st Contact Info) Description 09/25/2024 9:45 AM EDT Office Visit [address] [phone] 10/09/2024 11:45 AM EDT Office Visit [address] [phone] Zeinab Sykes MD [address] [place] [address] [phone] documented as of this encounter Goals Goal Patient Goal Type Associated Problems Recent Progress Patient-Stated? Author Patient will manage their medication General On track( 023 11:18 AM EDT) Citlali Ocampo, PharmD Note: Began medboxes. Goal achieved 11/19/22. Patient graduated from [facility]. documented as of this encounter Visit Diagnoses Not on filedocumented in this encounter Care Teams Automatic Equipment Technician Relationship Specialty Start Date End Date Evelyn Ledesma FNP PCP - General Family Medicine 03/15/22 04/25/23 Oralia Aguila MD [address] [place] [address] [phone] PCP - General Family Medicine 04/26/23 01/01/24 Zeinab Sykes MD [address] [place] [address] [phone] PCP - General Internal Medicine 01/02/24 Tomeka Martins Nursing SecretaryEconomic Development Specialist 10/27/23 documented as of this encounter
--- OUTSIDE RECORDS SUMMARY | 2024-08-16 17:27 | XMS_ITS | Encounter Summary ---
Author Organization [employer] Address [address] [facility] 7t [place] [address] Care Team Providers Care Golf Ball Trimmer Name Role Phone Zeinab Sykes MD Primary Care Provider + Reason for Visit * Reason Comments Pre-visit Planning (Unable to reach for PVP screening, LVM) Encounter Details Date Type Department Care Team ([facility] [address] Contact Info) Description 08/03/2024 Patient Outreach [facility] [address] [place] [address] Zeinab Sykes MD [address] [place] [address] Pre-visit Planning ((Unable to reach for PVP screening, LVM)) Social History Tobacco Use Types Packs/Day Years [...] as of this encounter Progress Notes * Shanika Alcazar - 08/03/2024 9:59 AM EST ANIL Voss. Placed outbound call to patient to complete pre-visit planning. No answer at this time. Patient name and were not confirmed. CC left voicemail requesting return call. Direct contact information provided. documented in this encounter Plan of Treatment Upcoming Encounters Date Type Department Care Team (Late st Contact Info) Description 09/25/2024 9:45 AM EDT Office Visit [facility] [address] [place] [address] 10/09/2024 11:45 AM EDT Office Visit [facility] [address] [place] [address] Zeinab Sykes MD [address] [place] [address] documented as of this encounter Goals Goal Patient Goal Type Associated Problems Recent Progress Patient-Stated? Author Patient will manage their medication General On track( 023 11:18 AM EDT) No Citlali Armando, Anoop Note: Began medboxes. Goal achieved 11/19/22. Patient graduated from [facility]. documented as of this encounter Visit Diagnoses Not on filedocumented in this encounter Additional Health Concerns Assessment Noted Time PHQ-9 Depression Total Score: 18 024 1:46 PM EDT documented as of this encounter Care Teams Golf Ball Trimmer Relationship Specialty Start Date End Date Zeinab Sykes MD [address] [place] [address] PCP - General Internal Medicine 01/02/24 Tomeka Martins Sr Risk Management ConsultantStill Photographer 10/27/23 documented as of this encounter
--- OUTSIDE RECORDS SUMMARY | 2024-08-16 17:27 | XMS_ITS | Clinical Summary ---
Author Organization [facility], Address [address] [place] [address] [place] [address] Phone Care Team Providers Care Tight Barrel Inspector Name Role Phone Evelyn Rodriguez Primary Care Provider Silvana vailable Social History Tobacco Use Types Packs/Day Years Used Date Smoking Tobacco: Never Assessed Comments Unknown Sex and Gender Information Value Date Recorded Sex Assigned at Not on file Legal Sex Female 3:56 PM EDT Gender Identity Not on file Sexual Orientation Not on file Plan of Treatment Health Maintenance Due Date Last Done Comments Breast Cancer Screening 1960 Colorectal Cancer Screening: Annual FOBT 11/05/2008 Colorectal Cancer Screening: Colonoscopy 11/05/2008 Colorectal Cancer Screening: Sigmoidoscopy 11/05/2008 Influenza Vaccine (#1) 2024 Hepatitis B Vaccine Aged Out No longe r eligible based on patient's age to complete this topic Pneumococcal Vaccine: Pediat rics (0 to 5 Years) and At-Risk Patients (6 to 64 Years) Aged Out No longer eligible b ased on patient's age to complete this topic Insurance MEDICAID [place] Care Teams Tight Barrel Inspector Relationship Specialty Start Date End Date Evelyn Rodriguez FNP PCP - General 02/18/23
--- OUTSIDE RECORDS SUMMARY | 2024-08-16 17:27 | XMS_ITS | Encounter Summary ---
Author Organization [employer] [facility] Address [address] [place] [address] [place] [address] Care Team Providers Care Assistant Accounting Manager Name Role Phone Evelyn Ledesma Primary Care Provider [phone] Oralia Aguila MD Primary Care Provider Zeinab Sykes MD Primary Care Provider + Reason for Visit * Reason Comments Med Refill Encounter Details Date Type Department Care Team (Late st Contact Info) Description 02/05/2023 Refill [facility] [address] [place] [phone] Evelyn Ledesma FNP [address] [place] [address] [place] [address] Neuropathy Social History Tobacco Use Types Packs/Day Years [...] 09/25/2024 9:45 AM EDT [facility] [address] [place] [address] 10/09/2024 11:45 AM EDT Office Visit [facility] [address] [place] [address] Zeinab Sykes MD [address] [place] [address] documented as of this encounter Goals Goal Patient Goal Type Associated Problems Recent Progress Patient-Stated? Author Patient will manage their medication General On track( 023 11:18 AM EDT) Citlali Ocampo, Anoop Note: Began medboxes. Goal achieved 11/19/22. Patient graduated from [facility]. documented as of this encounter Visit Diagnoses Diagnosis Neuropathy Mononeuritis of unspecified site documented in this encounter Care Teams Assistant Accounting Manager Relationship Specialty Start Date End Date Evelyn Ledesma FNP PCP - General Family Medicine 03/15/22 04/25/23 Oralia Aguila MD [address] [place] [address] PCP - General Family Medicine 04/26/23 01/01/24 Zeinab Sykes MD [address] [place] [phone] PCP - General Internal Medicine 01/02/24 Tomeka Martins Pick Up And Delivery DriverBook Retailer 10/27/23 documented as of this encounter
--- OUTSIDE RECORDS SUMMARY | 2024-08-16 17:27 | XMS_ITS | Encounter Summary ---
Author Organization [employer] [facility] Address [address] [facility] 7t [place] [address] Care Team Providers Care Core Stripper Name Role Phone Zeinab Sykes MD Primary Care Provider + Reason for Visit * Reason Onset Date Comments Med Refill 07/16/2024 Encounter Details Date Type Department Care Team ([facility] st Contact Info) Description 07/16/2024 Telephone [facility] [address] [place], [place] [phone] Zeinab Sykes MD [address] [place], [place] [phone] Med Refill Social History Tobacco Use Types Packs/Day Years [...] encounter Miscellaneous Notes * Telephone Encounter - Jayne Tucker LPN - 07/16/2024 2:23 PM EST Medication isn't prescribed by PCP. * Telephone Encounter - Nancy Slade - 07/16/2024 2:20 PM EST TC from pt requesting medication refill. Medications needing refill : doxepin (SINEquan) 10 MG capsule To be sent to: [facility] pharmacy documented in this encounter Plan of Treatment Upcoming Encounters Date Type Department Care Team (Late st Contact Info) Description 09/25/2024 9:45 AM EDT Office Visit [facility] [address] [place] [address] [phone] 10/09/2024 11:45 AM EDT Office Visit [facility] [address] [place] [phone] Zeinab Skyes MD [address] [place] [address] documented as of this encounter Goals Goal Patient Goal Type Associated Problems Recent Progress Patient-Stated? Author Patient will manage their medication General On track( 023 11:18 AM EDT) Citlali Ocampo, Anoop Note: Began medboxes. Goal achieved 11/19/22. Patient graduated from [facility]. documented as of this encounter Visit Diagnoses Not on filedocumented in this encounter Additional Health Concerns Assessment Noted Time PHQ-9 Depression Total Score: 18 024 1:46 PM EDT documented as of this encounter Care Teams Core Stripper Relationship Specialty Start Date End Date Zeinab Sykes MD [address] [place] [address] PCP - General Internal Medicine 01/02/24 Tomeka Martins Director CustomTapping Machine Operator Automatic 10/27/23 documented as of this encounter
--- OUTSIDE RECORDS SUMMARY | 2024-08-16 17:27 | XMS_ITS | Encounter Summary ---
Author Organization [employer] Address 75 [facility] 7t [place] [address] Care Team Providers Care Vp Client Services Name Role Phone Zeinab Sykes MD Primary Care Provider + Encounter Details Date Type Department Care Team (Latest Contact Info) Description 08/15/2024 Travel Social History Tobacco Use Types Packs/Day [...] 9:45 AM EDT Office Visit [facility] MEDICINE [address] [place] [address] [phone] 10/09/2024 11:45 AM EDT Office Visit [facility] MEDICINE [address] [place] [address] [phone] Zeinab Sykes MD [address] [place] [address] documented as of this encounter Goals Goal Patient Goal Type Associated Problems Recent Progress Patient-Stated? Author Patient will manage their medication General On track( 023 11:18 AM EDT) Citalli Ocampo PharmD Note: Began medboxes. Goal achieved 11/19/22. Patient graduated from [facility]. documented as of this encounter Visit Diagnoses Not on filedocumented in this encounter Additional Health Concerns Assessment Noted Time PHQ-9 Depression Total Score: 22 025 10:31 AM EST documented as of this encounter Care Teams Vp Client Services Relationship Specialty Start Date End Date Zeinab Sykes MD [address] [place] [address] PCP - General Internal Medicine 01/02/24 Tomeka Martins Certified ProsthetistSpiral Winding Machine Helper 10/27/23 documented as of this encounter
--- OUTSIDE RECORDS SUMMARY | 2024-08-16 17:28 | XMS_ITS | Encounter Summary ---
Author Organization [employer] Address 75 [facility] 7t [place] [address] Care Team Providers Care Sheet Metal Work Furnace Installer Name Role Phone Zeinab Sykes MD Primary Care Provider + Reason for Visit * Reason Comments Med Refill Encounter Details Date Type Department Care Team ([facility] st Contact Info) Description 07/30/2024 Refill [facility] MEDICINE [address] [place], [place] [phone] Zeinab Sykes MD [address] [place] [address] Social History Tobacco Use Types Packs/Day Years [...] Description 09/25/2024 9:45 AM EDT Office Visit [address] [phone] 10/09/2024 11:45 AM EDT Office Visit [facility] MEDICINE [address] [place] [phone] Zeinab Sykes MD [address] [place] [address] documented as of this encounter Goals Goal Patient Goal Type Associated Problems Recent Progress Patient-Stated? Author Patient will manage their medication General On track( 023 11:18 AM EDT) No Citlali Armando, Anoop Note: Began medboxes. Goal achieved 11/19/22. Patient graduated from [facility]. documented as of this encounter Visit Diagnoses Not on filedocumented in this encounter Additional Health Concerns Assessment Noted Time PHQ-9 Depression Total Score: 18 024 1:46 PM EDT documented as of this encounter Care Teams Sheet Metal Work Furnace Installer Relationship Specialty Start Date End Date Zeinab Sykes MD [address] [place] [phone] PCP - General Internal Medicine 01/02/24 Tomeka Martins Leather StakerRadio Announcer 10/27/23 documented as of this encounter
--- OUTSIDE RECORDS SUMMARY | 2024-08-16 17:28 | XMS_ITS | Encounter Summary ---
Author Organization [employer] Address 75 [facility] 7t [place] [address] Care Team Providers Care Bi Application Developer Name Role Phone Zeinab Sykes MD Primary Care Provider + Reason for Visit * Reason Onset Date Comments Durable Medical Equipment 08/01/2024 10 In 1 pillow Encounter Details Date Type Department Care Team ([facility] st Contact Info) Description 08/01/[address] [facility] MED & PEDS [address] [place] [address] Zeinab Sykes MD [address] [place] [address] Durable Medical Equipment (10 In 1 pillow/) Social History Tobacco Use Types Packs/Day Years [...] encounter Miscellaneous Notes * Telephone Encounter - Trish Ahumada LPN - 08/01/2024 9:26 AM EST Rx generated and faxed to [facility] documented in this encounter Plan of Treatment Upcoming Encounters Date Type Department Care Team (Late st Contact Info) Description 09/25/2024 9:45 AM EDT Office Visit [facility] MEDICINE [address] [place] [phone] 10/09/2024 11:45 AM EDT Office Visit [facility] MEDICINE [address] [place] [phone] Zeinab Sykes MD [address] [place] [address] documented as of this encounter Goals Goal Patient Goal Type Associated Problems Recent Progress Patient-Stated? Author Patient will manage their medication General On track( 023 11:18 AM EDT) Citlali Ocampo, Anoop Note: Began medboxes. Goal achieved 11/19/22. Patient graduated from [facility]. documented as of this encounter Visit Diagnoses Not on filedocumented in this encounter Additional Health Concerns Assessment Noted Time PHQ-9 Depression Total Score: 18 024 1:46 PM EDT documented as of this encounter Care Teams Bi Application Developer Relationship Specialty Start Date End Date Zeinab Sykes MD [address] [place] [address] PCP - General Internal Medicine 01/02/24 Tomeka Martins Production Supply Equipment TenderYarn Dry Room Worker 10/27/23 documented as of this encounter
--- OUTSIDE RECORDS SUMMARY | 2024-08-16 17:28 | XMS_ITS | Encounter Summary ---
Author Organization [employer] Address 75 [facility] 7t [place] [address] Care Team Providers Care Can Coverer Name Role Phone Zeinab Sykes MD Primary Care Provider + Encounter Details Date Type Department Care Team (Latest Contact Info) Description 07/31/2024 Travel Social History Tobacco Use Types Packs/Day [...] Description 09/25/2024 9:45 AM EDT Office Visit [facility] MEDICINE [address] [place] [address] [phone] 10/09/2024 11:45 AM EDT Office Visit [facility] MEDICINE [address] [place] [address] [phone] Zeinab Sykes MD [address] [place] [address] documented as of this encounter Goals Goal Patient Goal Type Associated Problems Recent Progress Patient-Stated? Author Patient will manage their medication General On track( 023 11:18 AM EDT) Citlali Ocampo PharmD Note: Began medboxes. Goal achieved 11/19/22. Patient graduated from [facility]. documented as of this encounter Visit Diagnoses Not on filedocumented in this encounter Additional Health Concerns Assessment Noted Time PHQ-9 Depression Total Score: 18 024 1:46 PM EDT documented as of this encounter Care Teams Can Coverer Relationship Specialty Start Date End Date Zeinab Sykes MD [address] [place] [address] PCP - General Internal Medicine 01/02/24 Tomeka Martins Ceramic Design EngineerCatalytic Case Operator 10/27/23 documented as of this encounter
--- OUTSIDE RECORDS SUMMARY | 2024-08-16 17:28 | XMS_ITS | Encounter Summary ---
Author Organization [employer] Address 75 [facility] 7t [place] [address] Care Team Providers Care Chemical Process Project Engineer Name Role Phone Zeinab Sykes MD Primary Care Provider + Encounter Details Date Type Department Care Team (Latest Contact Info) Description 07/31/2024 9:45 AM EST Office Visit [facility] MEDICINE [address] [place] [address] Alma Jha FNP [address] [place] [address] Lumbar back pain with radiculopathy affecting left lower extremity (Primary Dx); Long-term current use of opiate analgesic Social History Tobacco Use Types Packs/Day Years [...] as of this encounter Progress Notes * Alma Jha, EXHAUST MACHINE OPERATOR - 07/31/2024 9:45 AM EST Subjective: Rhonda Saini is a 63 y.o. female w/ PMH hypertension, GERD, lumbar disc herniation, T2DM, mixed incontinence, who presents to the office for - Chronic Pain Clinic Group visits. Initial Group visit: 09/13/23 Group Visit Number: 7 Last PCP visit: Dr. Sykes on 03/29/24 Group Confidentiality last signed: 09/13/23 Group Topic: functional goal setting Chronic Pain History: Associated Diagnosis: herniation of left side of L4-L5 intervertebral disc, neuropathy Vagus nerve stimulator in place 2020 - right knee TKA 05/26/2018 - Lumbar decompression surgery: L4-5 and right L5-S1 decompressive laminectomy at [facility] - surgeon Dr. Melia Pedroza Indicated Dx: spinal stenosis of lumbar region with radiculopathy Current pharm tx: Medication: Percocet 5-325mg Q6H PRN. States taking medication as prescribed. Non-pharm tx: hx of physical therapy sessions Related Specialists: Previously following with Neurosurgery, Ortho, and C Rheum Review of Systems Constitutional: Negative for chills and fever. Respiratory: Negative for cough and wheezing. Cardiovascular: Negative for chest pain and palpitations. Musculoskeletal: Positive for arthralgias and back pain. Physical Exam Constitutional: Appearance: Normal appearance. HENT: Head: Atraumatic. Right Ear: External ear normal. Left Ear: External ear normal. Pulmonary: Effort: Pulmonary effort is normal. Neurological: Mental Status: She is alert and oriented to person, place, and time. Psychiatric: Mood and Affect: Mood normal. Behavior: Behavior normal. Problem List Items Addressed This Visit Other Long-term current use of opiate analgesic Overview Medication: Percocet 5-325mg Q6H PRN Indication: herniation of left side of L5-L5 intervertebral disc, s/p vagus nerve stimulator, neuropathy Last CHIEF PROGRAM OFFICER Agreement: 03/13/24 Current Assessment & Plan -Good engagement and participation with Group Medical [...] Confirmatory testing negative 07/31/24: Group - WNL Lumbar back pain with radiculopathy affecting left lower extremity - Primary Current Assessment & Plan Known DDD L-spine with radiculopathy sxs 05/26/2018 - Lumbar decompression surgery: L4-5 and right L5-S1 decompressive laminectomy at [facility] - surgeon Dr. Melia Pedroza DME request for 10-in-1 pillow on 07/31/24 Relevant Orders POCT DIDIER-14 Urine Drug Screen (Completed) Follow up: 1-3 months for CHIEF PROGRAM OFFICER visit. Follow up as scheduled with PCP, sooner as needed. * Scarlett Gibbs RN - 07/31/2024 9:45 AM EST CHIEF PROGRAM OFFICER currency machine operator: PDMP reviewed today. Last fill date: 07/05/24 Percocet 5mg count was 23, anticipated 6 to be remaining. UTOX completed. Positive for OXY & TCA, Negative for AMP, BAR, BUP, BZO, MIREYA, FTY, MDMA, MET, MOP, MTD, PCP, THC. UTOX as expected. BPI updated today. Pain severity score of 7, activity interference score of 9.3. Previous BPI completed 03/13/24 with pain severity score of 8, activity interference score of 9.7. Will update PCP with BPI scoring. documented in this encounter Miscellaneous Notes * Assessment & Plan Note - JERRY Villalpando - 07/31/2024 4:58 PM ESTAssociated Problem(s): Lumbar back pain with radiculopathy affecting left lower extremity Known DDD L-spine with radiculopathy sxs 05/26/2018 - Lumbar decompression surgery: L4-5 and right L5-S1 decompressive laminectomy at [facility] - surgeon Dr. Melia Pedroza DME request for 10-in-1 pillow on 07/31/24 * Assessment & Plan Note - JERRY Villalpando - 07/30/2024 7:41 PM ESTAssociated Problem(s): Long-term current use of opiate analgesic -Good engagement and participation with Group Medical [...] Confirmatory testing negative 07/31/24: Group - WNL documented in this encounter Plan of Treatment Upcoming Encounters Date Type Department Care Team (Late st Contact Info) Description 09/25/2024 9:45 AM EDT Office Visit [facility] MEDICINE [address] [place] [address] 10/09/2024 11:45 AM EDT Office Visit [facility] MEDICINE [address] [place] [address] Zeinab Sykes MD [address] [place] [address] documented as of this encounter Goals Goal Patient Goal Type Associated Problems Recent Progress Patient-Stated? Author Patient will manage their medication General On track( 023 11:18 AM EDT) Citlali Ocampo PharmD Note: Began medboxes. Goal achieved 11/19/22. Patient graduated from [facility]. documented as of this encounter Procedures Procedure Name Priority Date/Time Associated Diagnosis Comments POCT DIDIER-14 URINE DRUG SCREEN Routine 07/31/2024 1:45 PM EST Lumbar back pain with radiculopathy affecting left lower extremity documented in this encounter Results * POCT DIDIER-14 Urine Drug Screen (07/31/2024 1:45 PM EST) TCA, Urine Positive Oxycodone Screen, Urine Positive Urine Urine specimen obtained by clean catch procedure / Unknown 07/31/2024 1:45 PM EST Scarlett Onofre RN - 07/31/2024 1:45 PM EST UTOX cup Lot#[id number] Exp. 04/11/26 Internal Pass Control Zeinab Sykes MD POINT OF CARE TEST ENTER /EDIT ORDERABLES Final Result documented in this encounter Visit Diagnoses Diagnosis Lumbar back pain with radiculopathy affecting left lower extremity- Primary Long-term current use of opiate analgesic Encounter for long-term (current) use of other medications documented in this encounter Additional Health Concerns Assessment Noted Time PHQ-9 Depression Total Score: 18 024 1:46 PM EDT documented as of this encounter Care Teams Chemical Process Project Engineer Relationship Specialty Start Date End Date Zeinab Sykes MD [address] [place] [address] PCP - General Internal Medicine 01/02/24 Tomeka Martins Floor PersonJob Setter Honing 10/27/23 documented as of this encounter
--- OUTSIDE RECORDS SUMMARY | 2024-08-16 17:28 | XMS_ITS | Encounter Summary ---
Author Organization [employer] [facility] Address [address] [place] [address] 7t [place] [address] Care Team Providers Care Laundry Room Attendant Name Role Phone Evelyn Ledesma Primary Care Provider [phone] Oralia Aguila MD Primary Care Provider [phone] Zeinab Sykes MD Primary Care Provider + Encounter Details Date Type Department Care Team (Latest Contact Info) Description 12/21/2018 Abstract [facility] CONVERSIONS Dental, Provider, DDS Social History Tobacco Use Types Packs/Day Years [...] Upcoming Encounters Date Type Department Care Team ( st Contact Info) Description 09/25/2024 9:45 AM EDT Office Visit [facility] MEDICINE [address] [place] [address] [phone] 10/09/2024 11:45 AM EDT Office Visit [facility] MEDICINE [address] [place] [address] [phone] Zeinab Sykes MD [address] [place] [address] [phone] documented as of this encounter Visit Diagnoses Not on filedocumented in this encounter Care Teams Laundry Room Attendant Relationship Specialty Start Date End Date Evelyn Ledesma FNP PCP - General Family Medicine 03/15/22 04/25/23 Oralia Aguila MD [address] [place] [address] PCP - General Family Medicine 04/26/23 01/01/24 Zeinab Sykes MD [address] [place] [address] PCP - General Internal Medicine 01/02/24 Tomeka Martins Head Of ArtRoustabout Hand 10/27/23 documented as of this encounter
--- OUTSIDE RECORDS SUMMARY | 2024-08-16 17:28 | XMS_ITS | Encounter Summary ---
Author Organization [employer] Address [address] [place] [address] 7t [place] [address] Care Team Providers Care Production Expert Name Role Phone Zeinab Sykes MD Primary Care Provider + Reason for Visit * Reason Onset Date Comments TRAFFIC ASSISTANT: Tier System 07/31/2024 Encounter Details Date Type Department Care Team ([facility] Contact Info) Description 07/31/2024 Telephone [facility] MED & PEDS [address] [place] [address] Alma Jha FNP [address] [place] [address] TRAFFIC ASSISTANT: Tier System Social History Tobacco Use Types Packs/Day Years [...] your housing situation today? I have tessa estrella 12/21/[address] you li [...] encounter Miscellaneous Notes * Telephone Encounter - Zeinab Sykes MD - 07/31/2024 7:55 PM EST She can be seen in Tier 3 visits. Thank you for helping with her medical conditions. * Telephone Encounter - JERRY Villalpando - 07/31/2024 5:02 PM EST John Sykes! Rhonda Mclaughlin recently completed her 7th Chronic Pain Group visit. We are writing to seewhat Tier Level you would like for her to be assigned (see below). Since her last TRAFFIC ASSISTANT agreement (03/13/24) all of her TRAFFIC ASSISTANT visits - utox/pill counts have been as expected. There was one abnormal in office in May 2024, but confirmatory was normal. Please see timeline below. 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 Confirmatory testing negative 07/31/24: Group - WNL Tier Level Visit Frequency Tier 1 - High Risk Monthly Tier 2 - Moderate Risk Every 3 months Tier 3 - Low Risk Every 4-6 months documented in this encounter Plan of Treatment Upcoming Encounters Date Type Department Care Team (Late st Contact Info) Description 09/25/2024 9:45 AM EDT Office Visit [facility] MEDICINE [address] [place] [address] [phone] 10/09/2024 11:45 AM EDT Office Visit [facility] MEDICINE [address] [place] [address] [phone] Zeinab Sykes MD [address] [place] [address] documented as of this encounter Goals Goal Patient Goal Type Associated Problems Recent Progress Patient-Stated? Author Patient will manage their medication General On track( 023 11:18 AM EDT) Citlali Ocampo PharmD Note: Began medboxes. Goal achieved 11/19/22. Patient graduated from [facility]. documented as of this encounter Visit Diagnoses Diagnosis Dietary counseling Dietary surveillance and counseling Exercise counseling documented in this encounter Additional Health Concerns Assessment Noted Time PHQ-9 Depression Total Score: 18 024 1:46 PM EDT documented as of this encounter Care Teams Production Expert Relationship Specialty Start Date End Date Zeinab Sykes MD [address] [place] [address] PCP - General Internal Medicine 01/02/24 Tomeka Martins Human Performance TechnologistZoology Professor 10/27/23 documented as of this encounter
--- OUTSIDE RECORDS SUMMARY | 2024-08-16 17:28 | XMS_ITS | Encounter Summary ---
Author Organization [employer] Address 75 [facility] 7t [place] [address] Care Team Providers Care Pin Sorter And Bagger Name Role Phone Zeinab Sykes MD Primary Care Provider + Reason for Visit * Reason Onset Date Comments BPI Scoring 07/31/2024 Encounter Details Date Type Department Care Team ([facility] st Contact Info) Description 07/31/2024 Telephone [facility] MEDICINE [address] [place] [address] Scarlett Gibbs, PAULINA BPI Scoring Social History Tobacco Use Types Packs/Day Years [...] encounter Miscellaneous Notes * Telephone Encounter - Scarlett Gibbs RN - 07/31/2024 1:47 PM EST Pt attended chronic pain group today BPI updated today. Pain severity score of 7, activity interference score of 9.3. Previous BPI completed 03/13/24 with pain severity score of 8, activity interference score of 9.7. documented in this encounter Plan of Treatment Upcoming Encounters Date Type Department Care Team (Late st Contact Info) Description 09/25/2024 9:45 AM EDT Office Visit [facility] MEDICINE [address] [place] [phone] 10/09/2024 11:45 AM EDT Office Visit [facility] MEDICINE [address] [place] [address] Zeinab Sykes MD [address] [place] [address] documented as of this encounter Goals Goal Patient Goal Type Associated Problems Recent Progress Patient-Stated? Author Patient will manage their medication General On track( 023 11:18 AM EDT) No Citlali Armando PharmD Note: Began medboxes. Goal achieved 11/19/22. Patient graduated from [facility]. documented as of this encounter Visit Diagnoses Not on filedocumented in this encounter Additional Health Concerns Assessment Noted Time PHQ-9 Depression Total Score: 18 024 1:46 PM EDT documented as of this encounter Care Teams Pin Sorter And Bagger Relationship Specialty Start Date End Date Zeinab Sykes MD [address] [place] [address] PCP - General Internal Medicine 01/02/24 Tomeka Martins Servicing RepRegulatory Lead 10/27/23 documented as of this encounter
--- OUTSIDE RECORDS SUMMARY | 2024-08-16 17:28 | XMS_ITS | Encounter Summary ---
Author Organization [employer] [facility] Address [address] [place] [address] 7t [place] [address] Care Team Providers Care Armhole Sewer Name Role Phone Oralia Aguila MD Primary Care Provider [phone] Zeinab Sykes MD Primary Care Provider + Reason for Visit * Reason Comments Med Refill Encounter Details Date Type Department Care Team (Late Contact Info) Description 09/21/2023 Refill [facility] MEDICINE [address] [place] [phone] Oralia Aguila MD [address] [place], [place] [phone] Neuropathy Social History Tobacco Use Types Packs/Day [...] Upcoming Encounters Date Type Department Care Team ([facility] Contact Info) Description 09/25/2024 9:45 AM EDT Office Visit [facility] MEDICINE [address] [place] [address] [phone] 10/09/2024 11:45 AM EDT Office Visit [facility] MEDICINE [address] [place] [phone] Zeinab Sykes MD [address] [place] [phone] documented as of this encounter Goals Goal Patient Goal Type Associated Problems Recent Progress Patient-Stated? Author Patient will manage their medication General On track( 023 11:18 AM EDT) Citlali Ocampo, Anoop Note: Began medboxes. Goal achieved 11/19/22. Patient graduated from [facility]. documented as of this encounter Visit Diagnoses Diagnosis Neuropathy Mononeuritis of unspecified site documented in this encounter Care Teams Armhole Sewer Relationship Specialty Start Date End Date Oralia Aguila MD [address] [place] [address] PCP - General Family Medicine 04/26/23 01/01/24 Zeinab Sykes MD [address] [place] [address] PCP - General Internal Medicine 01/02/24 Tomeka Martins Toll LinemanSecond Baker 10/27/23 documented as of this encounter
--- OUTSIDE RECORDS SUMMARY | 2024-08-16 17:28 | XMS_ITS | Encounter Summary ---
Author Organization [employer] [facility] Address [address] [place] [address] 7t [place] [address] Care Team Providers Care Site Monitor Name Role Phone Evelyn Ledesma Primary Care Provider [phone] Oralia Aguila MD Primary Care Provider [phone] Zeinab Sykes MD Primary Care Provider + Encounter Details Date Type Department Care Team (Latest Contact Info) Description 10/30/2020 Abstract [facility] CONVERSIONS Dental, Provider, DDS Social History Tobacco [...] Description 09/25/2024 9:45 AM EDT Office Visit [facility] MEDICINE [address] [place] [address] [phone] 10/09/2024 11:45 AM EDT Office Visit [facility] MEDICINE [address] [place] [address] [phone] Zeinab Sykes MD [address] [place] [address] [phone] documented as of this encounter Visit Diagnoses Not on filedocumented in this encounter Care Teams Site Monitor Relationship Specialty Start Date End Date Evelyn Ledesma FNP PCP - General Family Medicine 03/15/22 04/25/23 Oralia Aguila MD [address] [place] [address] PCP - General Family Medicine 04/26/23 01/01/24 Zeinab Sykes MD [address] [place] [address] PCP - General Internal Medicine 01/02/24 Tomeka Martins President And Chief Operating OfficerLowerator Operator 10/27/23 documented as of this encounter
--- OUTSIDE RECORDS SUMMARY | 2024-08-16 17:28 | XMS_ITS | Encounter Summary ---
Author Organization [facility] Address [address] [place] [address] 7t [place] [address] Care Team Providers Care Compensation And Benefits Analyst Name Role Phone Oralia Aguila MD Primary Care Provider [phone] Zeinab Sykes MD Primary Care Provider + Reason for Visit * Reason Onset Date Comments Med Refill 05/05/2023 Encounter Details Date Type Department Care Team (Late st Contact Info) Description 05/05/2023 Refill [facility] [address] [place], [place] [phone] Oralia Aguila MD 230 [place], [place] [phone] Other intervertebral disc displacement, lumbar region Social [...] encounter Miscellaneous Notes * Telephone Encounter - Nila Edmundo - 05/05/2023 4:16 PM EDT Tc from pt requesting medication refill on oxyCODONE-acetaminophen (Percocet) 5- 325 MG tablet to besent to [facility] - [place], [place] - 230 [facility] documented in this encounter Plan of Treatment Upcoming Encounters Date Type Department Care Team (Late st Contact Info) Description 09/25/2024 9:45 AM EDT Office Visit [facility] [address] [facility] [place] [address] 10/09/2024 11:45 AM EDT Office Visit [facility] [address] [place] [address] [place] [address] documented as of this encounter Goals Goal Patient Goal Type Associated Problems Recent Progress Patient-Stated? Author Patient will manage their medication General On track( 023 11:18 AM EDT) Citlali Ocampo, PharmD Note: Began medboxes. Goal achieved 11/19/22. Patient graduated from [facility]. documented as of this encounter Visit Diagnoses Diagnosis Other intervertebral disc displacement, lumbar region documented in this encounter Care Teams Compensation And Benefits Analyst Relationship Specialty Start Date End Date [place] [address] PCP - General Family Medicine 04/26/23 01/01/24 Zeinab Sykes MD [address] [place] [address] PCP - General Internal Medicine 01/02/24 Tomeka Martins Director Of Individual GivingPayroll Assistant 10/27/23 documented as of this encounter
--- OUTSIDE RECORDS SUMMARY | 2024-08-16 17:28 | XMS_ITS | Encounter Summary ---
Author Organization [employer] [facility] Address [address] [facility] 7t [place] [address] Care Team Providers Care Director Of Knowledge Management Name Role Phone Zeinab Sykes MD Primary Care Provider + Encounter Details Date Type Department Care Team ([facility] st Contact Info) Description 08/03/2024 3:30 PM EST Office Visit [facility] 230 [place] [address] Gay Thompson, DDS [address] [place] [address] Fracture of removable partial denture (Primary Dx) [...] Progress Notes * Gay Thompson DDS - 08/03/2024 3:30 PM EST Patient ID: Rhonda Mclaughlin is a 63 y.o. female. Time Out: No data recorded Location: [facility] Tooth: Mandible Procedure: Dentures fracture Verified the above with patient, social services assistant, and provider. Confirmed via patient's chart, intraorally and by radiographs. Ux Information Architect: not applicable Chief complaint: Fractured denture Medical Hx: Vitals: There were no vitals taken for this visit. Medications, Med Hx reviewed with patient and updated in chart. Consent Obtained: The risks, benefits, indications, potential complications, and alternatives were explained to the patient and informed consent was obtained with good understanding. Treatment Provided: Dental procedures in this visit D0140 - LIMITED ORAL EVALUATION - PROBLEM FOCUSED (Completed) Service provider: Gay Thompson DDS Billing provider: Gay Thompson DDS [id number] - ADJUNCTIVE GENERAL SERVICES - PROFESSIONAL VISITS - CASE PRESENTATION, SUBSEQUENT TO DETAILED AND EXTENSIVE TREATMENT PLANNING (Completed) Service provider: Gay Thompson DDS Billing provider: Gay Thompson DDS Lower - patient in office because of fracture of lower RPD in the midline. Fracture happened about two months ago, patient had managed to wear them until they finally detached. Lower RPD sent to [facility] for repair. [place]: delivery repaired RPD Cross Cut Sawyer: Shannon Velasquez Dentist: Gay Thompson DDS documented in this encounter Plan of Treatment Upcoming Encounters Date Type Department Care Team (Late st Contact Info) Description 09/25/2024 9:45 AM EDT Office Visit [facility] [address] [place] [address] 10/09/2024 11:45 AM EDT Office Visit [facility] [address] [place] [address] [phone] Zeinab Sykes MD [address] [place] [address] [phone] Scheduled Orders Name Type Priority Associated Diagnoses Orde r Schedule DENTAL LAB DENTURES AND PARTIALS Dental Routine Ordered: 025 documented as of this encounter Goals Goal Patient Goal Type Associated Problems Recent Progress Patient-Stated? Author Patient will manage their medication General On track( 023 11:18 AM EDT) Citlali Ocampo, PharmD Note: Began medboxes. Goal achieved 11/19/22. Patient graduated from [facility]. documented as of this encounter Procedures Procedure Name Priority Date/Time Associated Diagnosis Comments LIMITED ORAL EVALUATION - PROBLEM FOCUSED Routine [...] documented as of this encounter Care Teams Director Of Knowledge Management Relationship Specialty Start Date End Date Zeinab Sykes MD [address] [place] [address] [phone] PCP - General Internal Medicine 01/02/24 Tomeka Martins Fixed Wing Aircraft Flight EngineerNet Application Architect 10/27/23 documented as of this encounter
== END 2024-08-16 13:57 | disposition home or self-care (01) ==
LOC: HO.HWS 13:35
PROVIDERS: PCP Internal Medicine; Visit Provider Obstetrics & Gynecology
DX: R10.2 Pelvic and perineal pain (principal)
CPT/HCPCS: 99213

== ENCOUNTER → 2024-08-16 13:35 | Outpatient (BNVA) | payer MEDICAID, SELFPAY | PROVIDERS: PCP Internal Medicine; Visit Provider Obstetrics & Gynecology | DX: R10.2 Pelvic and perineal pain (principal) | CPT/HCPCS: 99212 ==

== ENCOUNTER 2024-08-21 | Outpatient (REF) | payer MEDICAID, SELFPAY ==
--- OUTSIDE RECORDS SUMMARY | 2024-08-22 15:45 | XMS_ITS | Continuity of Care Document ---
Author Organization [facility] Address [address] [place] [address] Phone Care Team Providers Care Chief Information Security Officer Name Role Phone Waldo MADDOX FACS RVT Shiraz CHERY Unavailable Unavailable Allergies, Adverse Reactions, Alerts Substance Reaction Status Criticality latex Active No Information Medications Medication Instructions Dosage Effective Dates (start - stop) Status Comments lidocaine-prilocaine 2.5 %-2.5 % topical cream apply 2 hours before procedures for Pain - Active Procedures Procedure Date Office/Outpt E&M Established 15 Mins Oct Duplex Scan-extrem Veins; [facility]/ 23 Endovenous Laser, 1st Vein Endovenous [...] E&M Established 15 Mins [facility], [address] [place] [address] Dr [address] [address]Pradeep [place], [id number], [place] tel:[phone] [facility] Venous insufficiency (chronic) (peripheral) 3 Waldo MADDOX FACS RVT MIRI Rapp. [address] [place] [address], [place], [address], [place]. tel:[phone] Referring Provider: Rebekah Guevara, [address] [place], [address]. tel:[phone] [facility] MD PHILLIPS, [address] [place] [address] [address]Pradeep [place], [id number], [place] tel:[phone] [facility] - [place] [facility] [place] Encntr for f/u exam aft trtmt for cond oth than malig neoplmVenous insufficiency (chronic) (peripheral) 3 Waldo MADDOX FACS RVT MIRI Rapp. [address] [place] [address], [place], [address], [place]. tel:[phone] Referring Provider: Rebekah Guevara, [address] [place] [address], [address]. tel:[phone] [facility], [address] [place] [address] [address]Pradeep [place], [id number], [place] tel:[phone] CVR - [place] [facility] [place] Venous insufficiency (chronic) (peripheral) 3 Waldo MADDOX FACS RVT MIRI Rapp. [address] [place] [address], [place], [address], [place]. tel:[phone] Referring Provider: Rebekah Guevara, [address] [place] [address], [address]. tel:[phone] [facility] MD PHILLIPS, [address] [place] [address] [address]Pradeep [place], [id number], [place] tel:[phone] [facility] - [place] [facility] [place] Venous insufficiency (chronic) (peripheral) 3 Waldo MADDOX FACS RVT MIRI Rapp. [address] [place] [address], [place] [address], [place], [address], [place]. tel:[phone] Referring Provider: Rebekah Guevara, [address] [place], [address]. tel:[phone] [facility], [address] [place] [address] [address]Pradeep [place], [id number], [place] tel:[phone] [facility] - [place] [facility] [place] No Information 3 Waldo Rapp. [address] [facility], Suite [facility], [place], [address], [place]. tel:[phone] Referring Provider: Rebekah Guevara, [address] [place] [address], [address]. tel:[phone] [facility], [address] [place] [address] [address]Pradeep [place], [id number], [place] tel:[phone] CVR - [place] [facility] [place] Encntr for f/u exam aft trtmt for cond oth than malig neoplmVenous insufficiency (chronic) (peripheral) 3 Waldo Rapp. [address] [place] [address], [place] [address], [place], [address], [place]. tel:[phone] Referring Provider: Rebekah Guevara, [address] [place] [address], [address]. 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 [address] [place] [address], [facility] [address], [place], [address], [place]. tel:[phone] Referring Provider: Rebekah Guevara, [address] [place], [address]. tel:[phone] [facility] MD PHILLIPS, [address] [place] [address] [address]Pradeep [place], [id number], [place] tel:[phone] CVR - [place] - [place] Venous insufficiency (chronic) (peripheral) 3 Waldo Rapp. [facility], [address], [place], [address], [place]. [phone] Referring Provider: Rebekah Guevara, [address] [place], [address]. tel:[phone] Family History Family Member Type Diagnosis Age At Onset No Information Payers Payer name Insurance type Covered libertarian ID Authorlitzy funes(s) Medical Assistance DANIEL [id number] Social History Type Description Quantity Date Captured [...]
--- OUTSIDE RECORDS SUMMARY | 2024-08-22 15:45 | XMS_ITS | Encounter Summary ---
Author Organization [employer] [facility] Address [address] [facility] 7t [place] [address] Care Team Providers Care Apple Press Operator Name Role Phone Evelyn Ledesma Primary Care Provider [phone] Oralia Aguila MD Primary Care Provider [phone] Zeinab Sykes MD Primary Care Provider + Encounter Details Date Type Department Care Team ([facility] Contact Info) Description 10/22/2022 Orders Only [facility] [address] [place] [address] Evelyn Ledesma FNP [address] [place] [address] Dept [place] [address] Social History Tobacco Use Types Packs/Day Years [...] Upcoming Encounters Date Type Department Care Team ([facility] Contact Info) Description 09/25/2024 9:45 AM EDT Office Visit [facility] [address] [place] [address] 10/09/2024 11:45 AM EDT Office Visit [address] [phone] Zeinab Sykes MD [address] [place] [address] documented as of this encounter Visit Diagnoses Not on filedocumented in this encounter Care Teams Apple Press Operator Relationship Specialty Start Date End Date Evelyn Ledesma FNP PCP - General Family Medicine 03/15/22 04/25/23 Oralia Aguila MD [address] [place] [address] PCP - General Family Medicine 04/26/23 01/01/24 Zeinab Sykes MD [address] [place] [address] PCP - General Internal Medicine 01/02/24 Tomeka Martins Wood BufferBiomedical Repair Technician 10/27/23 documented as of this encounter
--- OUTSIDE RECORDS SUMMARY | 2024-08-22 15:45 | XMS_ITS | Encounter Summary ---
Author Organization [employer] [facility] Address [address] [place] [address] 7t [place] [address] Care Team Providers Care Shade Maker Name Role Phone Evelyn Ledesma Primary Care Provider [phone] Oralia Aguila MD Primary Care Provider [phone] Zeinab Sykes MD Primary Care Provider + Reason for Visit * Reason Onset Date Comments Prior Authorization 12/28/2022 Encounter Details Date Type Department Care Team (Late st Contact Info) Description 12/28/2022 Telephone [facility] [address] [place] [address] Evelyn Ledesma FNP [address] [place] [address] Dept [place] [address] Prior Authorization Social History Tobacco Use Types [...] AM EDT T/C placed to pt via [employer] Relationship Manager Zeinab #[id number]. Advised of message from pcp re: lab [...] all other NSAIDS. Do you have a upsetter setter up yet? If not, your PCP would like [...] 12/28/2022 10:18 AM EDT THOMAS Emery from [facility] requesting XL pull ups and disposable under pads . States faxed request couple days ago and have not gotten a response . Informs paper work 12/29/22. Please call to clarify at phone # [phone] . documented in this encounter Plan of Treatment Upcoming Encounters Date Type Department Care Team (Late st Contact Info) Description 09/25/2024 9:45 AM EDT Office Visit [facility] [address] [place] [address] 10/09/2024 11:45 AM EDT Office Visit [facility] 230 [place] [address] Zeinab Sykes MD 230 [place] [address] documented as of this encounter Goals Goal Patient Goal Type Associated Problems Recent Progress Patient-Stated? Author Patient will manage their medication General On track( 023 11:18 AM EDT) Citlali Ocampo, Anoop Note: Began medboxes. Goal achieved 11/19/22. Patient graduated from [facility]. documented as of this encounter Visit Diagnoses Not on filedocumented in this encounter Care Teams Shade Maker Relationship Specialty Start Date End Date Evelyn Ledesma FNP PCP - General Family Medicine 03/15/22 04/25/23 Oralia Aguila MD [address] [place] [address] PCP - General Family Medicine 04/26/23 01/01/24 Zeinab Sykes MD [address] [place] [address] PCP - General Internal Medicine 01/02/24 Tomeka Martins Emergency RegistrarElectrical Installer 10/27/23 documented as of this encounter
--- OUTSIDE RECORDS SUMMARY | 2024-08-22 15:45 | XMS_ITS | Encounter Summary ---
Author Organization [employer] Address [address] [facility] 7t [place] [address] Care Team Providers Care Pipe Production Worker Name Role Phone Evelyn Ledesma Primary Care Provider [phone] Oralia Aguila MD Primary Care Provider [phone] Zeinab Sykes MD Primary Care Provider + Reason for Visit * Reason Onset Date Comments case from lab 11/04/2022 Encounter Details Date Type Department Care Team (Late st Contact Info) Description 11/04/2022 Telephone [facility] [address] [place] [address] Asad Shore DDS 230 [place] [address] case from lab Social History Tobacco Use [...] Description 09/25/2024 9:45 AM EDT Office Visit [facility] [address] [place] [address] 10/09/2024 11:45 AM EDT Office Visit [address] [address] Zeinab Sykes MD [address] [place] [address] documented as of this encounter Visit Diagnoses Not on filedocumented in this encounter Care Teams Pipe Production Worker Relationship Specialty Start Date End Date Evelyn Ledesma FNP PCP - General Family Medicine 03/15/22 04/25/23 Oralia Aguila MD [address] [place] [address] PCP - General Family Medicine 04/26/23 01/01/24 Zeinab Sykes MD [address] [place] [address] PCP - General Internal Medicine 01/02/24 Tomeka Martins Medication NurseWelding Process Specialist 10/27/23 documented as of this encounter
--- OUTSIDE RECORDS SUMMARY | 2024-08-22 15:45 | XMS_ITS | Encounter Summary ---
Author Organization [facility] Address [address] [place] [address] 7t [place] [address] Care Team Providers Care Promotions Officer Name Role Phone Evelyn Ledesma Primary Care Provider [phone] Oralia Aguila MD Primary Care Provider [phone] Zeinab Sykes MD Primary Care Provider + Encounter Details Date Type Department Care Team (Late Contact Info) Description 08/20/2022 Orders Only [facility] [address] [place] [address] Karen Henderson FNP Social History Tobacco Use [...] Description 09/25/2024 9:45 AM EDT Office Visit [facility] [address] [place] [address] 10/09/2024 11:45 AM EDT Office Visit [facility] 230 [place] [address] Zeinab Sykes MD 230 [place] [address] documented as of this encounter Visit Diagnoses Not on filedocumented in this encounter Care Teams Promotions Officer Relationship Specialty Start Date End Date Evelyn Ledesma FNP PCP - General Family Medicine 03/15/22 04/25/23 Oralia Aguila MD [address] [place] [address] [phone] PCP - General Family Medicine 04/26/23 01/01/24 Zeinab Sykes MD [address] [place] [address] PCP - General Internal Medicine 01/02/24 Tomeka Martins CoutierierEmbossing Press Operator 10/27/23 documented as of this encounter
--- OUTSIDE RECORDS SUMMARY | 2024-08-22 15:45 | XMS_ITS | Encounter Summary ---
Author Organization [employer] [facility] Address [address] [place] [address] 7t [place] [address] Care Team Providers Care Application Support Manager Name Role Phone Evelyn Ledesma Primary Care Provider [phone] Oralia Aguila MD Primary Care Provider [phone] Zeinab Sykes MD Primary Care Provider + Reason for Visit * Reason Onset Date Comments Appointment Request 12/20/2022 Encounter Details Date Type Department Care Team (Late st Contact Info) Description 12/20/2022 Telephone [facility] MED[facility] [address] [place] [address] Evelyn Ledesma FNP [address] [place] [address] Dept [place] [address] Appointment Request Social History Tobacco Use Types [...] an earlier day) Please contact pt at [phone] documented in this encounter Plan of Treatment Upcoming Encounters Date Type Department Care Team (Late st Contact Info) Description 09/25/2024 9:45 AM EDT Office Visit [facility] [address] [place] [address] 10/09/2024 11:45 AM EDT Office Visit [facility] [address] [place] [address] Zeinab Sykes MD [address] [place] [address] documented as of this encounter Goals Goal Patient Goal Type Associated Problems Recent Progress Patient-Stated? Author Patient will manage their medication General On track( 023 11:18 AM EDT) Citlali Ocampo PharmD Note: Began medboxes. Goal achieved 11/19/22. Patient graduated from [facility]. documented as of this encounter Visit Diagnoses Not on filedocumented in this encounter Care Teams Application Support Manager Relationship Specialty Start Date End Date Evelyn Ledesma FNP PCP - General Family Medicine 03/15/22 04/25/23 Oralia Aguila MD [address] [place] [address] PCP - General Family Medicine 04/26/23 01/01/24 Zeinab Sykes MD [address] [place] [address] PCP - General Internal Medicine 01/02/24 Tomeka Martins Beauty DirectorParts Classifier 10/27/23 documented as of this encounter
--- OUTSIDE RECORDS SUMMARY | 2024-08-22 15:46 | XMS_ITS | Encounter Summary ---
Author Organization [employer] Address [address] [facility] 7t [place] [address] Care Team Providers Care Windows Server Specialist Name Role Phone Zeinab Sykes MD Primary Care Provider + Reason for Visit * Reason Comments Cough Encounter Details Date Type Department Care Team (Latest Contact Info) Description 08/08/2024 5:20 PM EST Office Visit [facility] [address] [place], [place] [phone] Lia Martinez NP 230 [place] [address] Acute nasopharyngitis (Primary Dx); Flu-like symptoms Social [...] moderate pain or fever. - sodium chloride (Vanderwagen Nasal [place]) 0.65 % nasal spray; Administer 1 spray into each nostril if needed for congestion. Flu-like symptoms - POCT Rapid RSV JI ID NOW - POCT Rapid Influenza B JI ID NOW - POCT Rapid Influenza A JI ID NOW - POCT Rapid Covid-19 Bin[employer] Georgian Translation: Provided by [facility] staff member DONTRELL Garber documented in this encounter Plan of Treatment Upcoming Encounters Date Type Department Care Team (Late st Contact Info) Description 09/25/2024 9:45 AM EDT Office Visit [facility] [address] [place] [address] 10/09/2024 11:45 AM EDT Office Visit [facility] [address] [place] [address] Zeinab Sykes MD [address] [place] [address] documented as of this encounter Goals Goal Patient Goal Type Associated Problems Recent Progress Patient-Stated? Author Patient will manage their medication General On track( 023 11:18 AM EDT) Citlali Ocampo, Anoop Note: Began medboxes. Goal achieved 11/19/22. Patient graduated from [facility]. documented as of this encounter [...] JI ID NOW (08/08/2024 5:54 PM EST) [facility] Influenza A Negative Negative, Indeterminate [facility] Swab 08/08/2024 5:54 PM EST us Lia Blasm FREIGHT RATE ANALYST POINT OF CARE TEST ENTER/EDIT O RDERABLES Final Result Performing Organization Address [facility] Co de Phone Number [facility] [address] [place] [phone] * POCT Rapid Influenza B JI ID NOW (08/08/2024 5:54 PM EST) [facility] Influenza B Negative Negative, Indeterminate [facility] Swab 08/08/2024 5:54 PM EST us Lia Martinez FREIGHT RATE ANALYST POINT OF CARE TEST ENTER/EDIT O RDERABLES Final Result Performing Organization Address [facility] Co de Phone Number [facility] [address] [place] [phone] * POCT Rapid RSV JI ID NOW (08/08/2024 5:54 PM EST) [facility] RSV Rapid Ag POC Negative Negative [facility] Swab 08/08/2024 5:54 PM EST us Reneeamena Blas FREIGHT RATE ANALYST POINT OF CARE TEST ENTER/EDIT O RDERABLES Final Result Performing Organization Address [facility] [[email or web address]] de Phone Number [facility] [address] [place] [phone] documented in this encounter Visit Diagnoses Diagnosis Acute nasopharyngitis- Primary Acute nasopharyngitis (common cold) Flu-like symptoms documented in this encounter Additional Health Concerns Assessment Noted Time PHQ-9 Depression Total Score: 18 06/17/2 024 1:46 PM EDT documented as of this encounter Care Teams Windows Server Specialist Relationship Specialty Start Date End Date Zeinab Sykes MD [address] [place] [address] PCP - General Internal Medicine 01/02/24 Tomeka Martins Route Sales PersonBag Sealer 10/27/23 documented as of this encounter
--- OUTSIDE RECORDS SUMMARY | 2024-08-22 15:46 | XMS_ITS | Clinical Summary ---
Author Organization [facility], Address [address] [place] [address] [place] [address] Phone Care Team Providers Care Chicken Sexer Name Role Phone Evelyn Rodriguez Primary Care [...] age to complete this topic [place] Care Teams Chicken Sexer Relationship Specialty Start Date End Date Evelyn Rodriguez FNP PCP - General 02/18/23
--- OUTSIDE RECORDS SUMMARY | 2024-08-22 15:46 | XMS_ITS | Encounter Summary ---
Author Organization [employer] Address 75 [facility] 7t [place] [address] Care Team Providers Care Automation Control Integrator Name Role Phone Zeinab Sykes MD Primary Care Provider + Reason for Visit * Reason Comments Pre-visit Planning (Unable to reach for PVP screening, LVM) Encounter Details Date Type Department Care Team ([facility] Contact Info) Description 08/03/2024 Patient Outreach [facility] [address] [place] [address] Zeinab Sykes MD [address] [place] [address] Pre-visit Planning ((Unable to reach for PVP [...] Description 09/25/2024 9:45 AM EDT Office Visit [facility] [address] [place] [phone] 10/09/2024 11:45 AM EDT Office Visit [facility] [address] [place] [phone] Zeinab Sykes MD [address] [place] [address] documented as of this encounter Goals Goal Patient Goal Type Associated Problems Recent Progress Patient-Stated? Author Patient will manage their medication General On track( 023 11:18 AM EDT) No Citlali Armando, Anoop Note: Began medboxes. Goal achieved 11/19/22. Patient graduated from [facility]. documented as of this encounter Visit Diagnoses Not on filedocumented in this encounter Additional Health Concerns Assessment Noted Time PHQ-9 Depression Total Score: 18 024 1:46 PM EDT documented as of this encounter Care Teams Automation Control Integrator Relationship Specialty Start Date End Date Zeinab Sykes MD [address] [place] [phone] PCP - General Internal Medicine 01/02/24 Tomeka Martins Security SpecialistLandscape Gardener 10/27/23 documented as of this encounter
--- OUTSIDE RECORDS SUMMARY | 2024-08-22 15:46 | XMS_ITS | Encounter Summary ---
Author Organization [employer] Address 75 [facility] 7t [place] [address] Care Team Providers Care Wire Spring Relay Adjuster Name Role Phone Zeinab Sykes MD Primary Care Provider + Encounter Details Date Type Department Care Team ([facility] st Contact Info) Description 08/08/2024 3:00 PM EST Office Visit [facility] [address] [place] [address] Gay Thompson, DDS [address] [place] [address] Fracture of removable partial denture (Primary Dx) [...] female. Time Out: No data recorded Location: [facility] Tooth: Mandible Procedure: Delivery repaired denture Verified the above with patient, assistant film editor, and provider. Confirmed via patient's chart, intraorally and by radiographs. Natural Resources Manager: not applicable No chief complaint on file. [...] and expectations. NV: 6 mo periodic exam Fabrication Engineer: Jayne Cabrrea Dentist: Gay Thompson DDS documented in this encounter Plan of Treatment Upcoming Encounters Date Type Department Care Team (Late st Contact Info) Description 09/25/2024 9:45 AM EDT Office Visit [facility] [address] [place] [address] [phone] 10/09/2024 11:45 AM EDT Office Visit [address] [phone] Zeinab Sykes MD [address] [place] [address] [phone] documented as of this encounter Goals Goal Patient Goal Type Associated Problems Recent Progress Patient-Stated? Author Patient will manage their medication General On track( 023 11:18 AM EDT) Citlali Ocampo, PharmD Note: Began medboxes. Goal achieved 11/19/22. Patient graduated from [facility]. documented as of this encounter Procedures Procedure [...] documented as of this encounter Care Teams Wire Spring Relay Adjuster Relationship Specialty Start Date End Date Zeinab Sykes MD [address] [place] [address] PCP - General Internal Medicine 01/02/24 Tomeka Martins Consumer Affairs ManagerIt Investment/Portfolio Manager 10/27/23 documented as of this encounter
--- OUTSIDE RECORDS SUMMARY | 2024-08-22 15:46 | XMS_ITS | Encounter Summary ---
Author Organization [facility] [facility] Address [address] [place] [address] 7t [place] [address] Care Team Providers Care Active Directory Administrator Name Role Phone Oralia Aguila MD Primary Care Provider [phone] Zeinab Sykes MD Primary Care Provider + Reason for Visit * Reason Comments Med Refill Encounter Details Date Type Department Care Team (Late Contact Info) Description 08/09/[address] [facility] [address] [place] [phone] Oralia Aguila MD [address] [place], [place] [phone] Other intervertebral disc displacement, lumbar region Social [...] Description 09/25/2024 9:45 AM EDT Office Visit [address] [address] 10/09/2024 11:45 AM EDT Office Visit [address] [address] Zeinab Sykes MD 230 [place], [place] [phone] documented as of this encounter Goals Goal Patient Goal Type Associated Problems Recent Progress Patient-Stated? Author Patient will manage their medication General On track( 023 11:18 AM EDT) Citlali Ocampo, Anoop Note: Began medboxes. Goal achieved 11/19/22. Patient graduated from [facility]. documented as of this encounter Visit Diagnoses Diagnosis Other intervertebral disc displacement, lumbar region documented in this encounter Care Teams Active Directory Administrator Relationship Specialty Start Date End Date Oralia Aguila MD [address] [place] [address] PCP - General Family Medicine 04/26/23 01/01/24 Zeinab Sykes MD [address] [place] [address] PCP - General Internal Medicine 01/02/[address] Light ServicerOptometrist Assistant 10/27/23 documented as of this encounter
--- OUTSIDE RECORDS SUMMARY | 2024-08-22 15:46 | XMS_ITS | Encounter Summary ---
Author Organization [employer] Address 75 [facility] 7t [place] [address] Care Team Providers Care Drawing Instructor Name Role Phone Zeinab Sykes MD Primary [...] 09/25/2024 9:45 AM EDT Office Visit [facility] [address] [place] [address] [phone] 10/09/2024 11:45 AM EDT Office Visit [facility] [address] [place] [address] [phone] Zeinab Sykes MD 230 [place] [address] documented as of this encounter Goals Goal Patient Goal Type Associated Problems Recent Progress Patient-Stated? Author Patient will manage their medication General On track( 023 11:18 AM EDT) Citlali Ocampo PharmD Note: Began medboxes. Goal achieved 11/19/22. Patient graduated from [facility]. documented as of this encounter Visit Diagnoses Not on filedocumented in this encounter Additional Health Concerns Assessment Noted Time PHQ-9 Depression Total Score: 18 024 1:46 PM EDT documented as of this encounter Care Teams Drawing Instructor Relationship Specialty Start Date End Date Zeinab Sykes MD 230 [place] [address] PCP - General Internal Medicine 01/02/24 Tomeka Martins Endoscopic TechnicianInsulator Technician 10/27/23 documented as of this encounter
--- OUTSIDE RECORDS SUMMARY | 2024-08-22 15:46 | XMS_ITS | Encounter Summary ---
Author Organization [employer] Address 75 [facility] 7t [place] [address] Care Team Providers Care Flexible Nanny Name Role Phone Zeinab Sykse MD Primary Care Provider + Reason for Visit * Reason Comments Med Refill Encounter Details Date Type Department Care Team ([facility] st Contact Info) Description 05/04/2024 Refill [facility] 230 [place], [place] [phone] Zeinab Sykes MD 230 [place] [address] Other intervertebral disc displacement, lumbar region Social [...] Description 09/25/2024 9:45 AM EDT Office Visit [facility] [address] [place] [phone] 10/09/2024 11:45 AM EDT Office Visit [facility] [address] [place] [address] Zeinab Sykes MD [address] [place] [phone] documented as of this encounter Goals Goal Patient Goal Type Associated Problems Recent Progress Patient-Stated? Author Patient will manage their medication General On track( 023 11:18 AM EDT) No Citlali Armando, PharmD Note: Began medboxes. Goal achieved 11/19/22. Patient graduated from [facility]. documented as of this encounter Visit Diagnoses Diagnosis Other intervertebral disc displacement, lumbar region documented in this encounter Additional Health Concerns Assessment Noted Time PHQ-9 Depression Total Score: 18 024 1:46 PM EDT documented as of this encounter Care Teams Flexible Nanny Relationship Specialty Start Date End Date Zeinab Sykes MD [address] [place] [phone] PCP - General Internal Medicine 01/02/24 Tomeka Martins Director Of Outside SalesSenior Software Development Manager 10/27/23 documented as of this encounter
--- OUTSIDE RECORDS SUMMARY | 2024-08-22 15:46 | XMS_ITS | Encounter Summary ---
Author Organization [employer] [facility] Address [address] [place] [address] 7t [place] [address] Care Team Providers Care Print Line Tailer Name Role Phone Zeinab Sykes MD Primary Care Provider + Reason for Visit * Reason Onset Date Comments Med Refill 07/16/2024 Encounter Details Date Type Department Care Team ([facility] st Contact Info) Description 07/16/2024 Telephone [facility] 230 [place], [place] [phone] Zeinab Sykes MD 230 [place], [place] [phone] Med Refill Social History Tobacco Use Types [...] 10 MG capsule To be sent to: [facility] pharmacy documented in this encounter Plan of Treatment Upcoming Encounters Date Type Department Care Team (Late st Contact Info) Description 09/25/2024 9:45 AM EDT Office Visit [facility] [address] [place] [address] [phone] 10/09/2024 11:45 AM EDT Office Visit [facility] [address] [place] [phone] Zeinab Sykes MD [address] [place] [address] documented as of this encounter Goals Goal Patient Goal Type Associated Problems Recent Progress Patient-Stated? Author Patient will manage their medication General On track( 023 11:18 AM EDT) Citlali Ocampo, Anoop Note: Began medboxes. Goal achieved 11/19/22. Patient graduated from [facility]. documented as of this encounter Visit Diagnoses Not on filedocumented in this encounter Additional Health Concerns Assessment Noted Time PHQ-9 Depression Total Score: 18 024 1:46 PM EDT documented as of this encounter Care Teams Print Line Tailer Relationship Specialty Start Date End Date Zeinab Sykes MD 230 [place] [address] PCP - General Internal Medicine 01/02/24 Tomeka Martins Shirt TrimmerHealthcare Account Manager 10/27/23 documented as of this encounter
--- OUTSIDE RECORDS SUMMARY | 2024-08-22 15:46 | XMS_ITS | Encounter Summary ---
Author Organization [employer] Address 75 [facility] 7t [place] [address] Care Team Providers Care Tile Edger Name Role Phone Zeinab Sykes MD Primary Care Provider + Reason for Visit * Reason Comments Med Refill Encounter Details Date Type Department Care Team ([facility] st Contact Info) Description 07/30/2024 Refill [facility] [address] [place], [place] [phone] Zeinab Sykes MD [address] [place] [address] Social History Tobacco Use Types Packs/Day Years [...] Description 09/25/2024 9:45 AM EDT Office Visit [address] [address] 10/09/2024 11:45 AM EDT Office Visit [facility] [address] [place] [phone] Zeinab Sykes MD [address] [place] [phone] documented as of this encounter Goals Goal Patient Goal Type Associated Problems Recent Progress Patient-Stated? Author Patient will manage their medication General On track( 023 11:18 AM EDT) No Citlali Armando, Anoop Note: Began medboxes. Goal achieved 11/19/22. Patient graduated from [facility]. documented as of this encounter Visit Diagnoses Not on filedocumented in this encounter Additional Health Concerns Assessment Noted Time PHQ-9 Depression Total Score: 18 024 1:46 PM EDT documented as of this encounter Care Teams Tile Edger Relationship Specialty Start Date End Date Zeinab Sykes MD [address] [place] [address] PCP - General Internal Medicine 01/02/24 Tomeka Martins Recovery ManagerTip Scourer 10/27/23 documented as of this encounter
--- OUTSIDE RECORDS SUMMARY | 2024-08-22 15:46 | XMS_ITS | Encounter Summary ---
Author Organization [employer] Address [address] [place] [address] 7t [place] [address] Care Team Providers Care Ship Fitter Name Role Phone Zeinab Sykes MD Primary Care Provider + Reason for Visit * Reason Onset Date Comments Med Refill 08/20/2024 Encounter Details Date Type Department Care Team (Late st Contact Info) Description 08/20/2024 Refill [facility] 230 [place], [place] [phone] Zeinab Sykes MD 230 [place], [place] [phone] Type 2 diabetes mellitus without complication, without long-term current use of insulin ([facility]); Other intervertebral disc displacement, lumbar region Social [...] encounter Miscellaneous Notes * Telephone Encounter - Nancy Slade - 08/20/2024 1:19 PM EST TC from pt requesting medication refill. Medications needing refill : Alcohol Swabs (Alcohol Prep) pads albuterol (2.5 MG/3ML) 0.083% nebulizer solution lidocaine (Lidoderm) 5 % patch To be sent to: [facility] [place], [place] - [address] [place] [address] documented in this encounter Plan of Treatment Upcoming Encounters Date Type Department Care Team ([facility] st Contact Info) Description 09/25/2024 9:45 AM EDT Office Visit [facility] [address] [place] [phone] 10/09/2024 11:45 AM EDT Office Visit [facility] [address] [place] [address] Zeinab Sykes MD [address] [place] [address] documented as of this encounter Goals Goal Patient Goal Type Associated Problems Recent Progress Patient-Stated? Author Patient will manage their medication General On track( 023 11:18 AM EDT) Citlali Ocampo, Anoop Note: Began medboxes. Goal achieved 11/19/22. Patient graduated from [facility]. documented as of this encounter Visit Diagnoses Diagnosis Type 2 diabetes mellitus without complication, without long-term current use of insulin ([facility]) Other intervertebral disc displacement, lumbar region documented in this encounter Additional Health Concerns Assessment Noted Time PHQ-9 Depression Total Score: 22 025 10:31 AM EST documented as of this encounter Care Teams Ship Fitter Relationship Specialty Start Date End Date Zeinab Sykes MD [address] [place] [address] PCP - General Internal Medicine 01/02/24 Tomeka Martins Per Diem InterpreterHead Of Training And Development 10/27/23 documented as of this encounter
--- OUTSIDE RECORDS SUMMARY | 2024-08-22 15:46 | XMS_ITS | Encounter Summary ---
Author Organization [employer] Address 75 [facility] 7t [place] [address] Care Team Providers Care Survey Research Teacher Name Role Phone Zeinab Sykes MD Primary Care Provider + Encounter Details Date Type Department Care Team (Latest Contact Info) Description 08/21/2024 Travel Social History Tobacco Use Types Packs/Day [...] 9:45 AM EDT Office Visit [facility] [address] [place] [address] [phone] 10/09/2024 11:45 AM EDT Office Visit [facility] [address] [place] [address] [phone] Zeinab Sykes MD [address] [place] [phone] documented as of this encounter Goals Goal Patient Goal Type Associated Problems Recent Progress Patient-Stated? Author Patient will manage their medication General On track( 023 11:18 AM EDT) Citlali Ocampo PharmD Note: Began medboxes. Goal achieved 11/19/22. Patient graduated from [facility]. documented as of this encounter Visit Diagnoses Not on filedocumented in this encounter Additional Health Concerns Assessment Noted Time PHQ-9 Depression Total Score: 22 025 10:31 AM EST documented as of this encounter Care Teams Survey Research Teacher Relationship Specialty Start Date End Date Zeinab Sykes MD 230 [place] [address] PCP - General Internal Medicine 01/02/24 Tomeka Martins Bacteriology ProfessorCreative Lead 10/27/23 documented as of this encounter
--- OUTSIDE RECORDS SUMMARY | 2024-08-22 15:46 | XMS_ITS | Encounter Summary ---
Author Organization [employer] Address 75 [facility] 7t [place] [address] Care Team Providers Care Quality Assurance Manager Name Role Phone eZinab Sykes MD Primary Care Provider + Reason for Visit * Reason Onset Date Comments BPI Scoring 07/31/2024 Encounter Details Date Type Department Care Team ([facility] st Contact Info) Description 07/31/2024 Telephone [facility] [address] [place] [address] Scarlett Gibbs, PAULINA BPI Scoring Social History [...] Description 09/25/2024 9:45 AM EDT Office Visit [facility] [address] [place] [phone] 10/09/2024 11:45 AM EDT Office Visit [facility] [address] [place] [phone] Zeinab Sykes MD [address] [place] [phone] documented as of this encounter Goals Goal Patient Goal Type Associated Problems Recent Progress Patient-Stated? Author Patient will manage their medication General On track( 023 11:18 AM EDT) No Citlali Armando PharmD Note: Began medboxes. Goal achieved 11/19/22. Patient graduated from [facility]. documented as of this encounter Visit Diagnoses Not on filedocumented in this encounter Additional Health Concerns Assessment Noted Time PHQ-9 Depression Total Score: 18 024 1:46 PM EDT documented as of this encounter Care Teams Quality Assurance Manager Relationship Specialty Start Date End Date Zeinab Sykes MD [address] [place] [address] PCP - General Internal Medicine 01/02/24 Tomeka Martins BryologistInside Contractor Sales 10/27/23 documented as of this encounter
--- OUTSIDE RECORDS SUMMARY | 2024-08-22 15:46 | XMS_ITS | Encounter Summary ---
Author Organization [employer] Address [address] [place] [address] 7t [place] [address] Care Team Providers Care Picture Painter Name Role Phone Zeinab Sykes MD Primary Care Provider + Reason for Visit * Reason Onset Date Comments BUILDING MAINTENANCE CUSTODIAN: Tier System 07/31/2024 Encounter Details Date Type Department [facility] Team ([facility] Description 07/31/2024 Telephone [facility] [address] [place] [address] Alma Jha FNP [address] [place] [address] BUILDING MAINTENANCE CUSTODIAN: Tier System Social History Tobacco Use Types [...] be assigned (see below). Since her last BUILDING MAINTENANCE CUSTODIAN agreement (03/13/24) all of her BUILDING MAINTENANCE CUSTODIAN visits - utox/pill counts have been as expected. There was one abnormal in office in May 2024, but confirmatory was normal. Please see timeline below. 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 Author Patient will manage their medication General On track( 023 11:18 AM EDT) Citlali Ocampo PharmD Note: Began medboxes. Goal achieved 11/19/22. Patient graduated from [facility]. documented as of this encounter Visit Diagnoses Diagnosis Dietary counseling Dietary surveillance and counseling Exercise counseling documented in this encounter Additional Health Concerns Assessment Noted Time PHQ-9 Depression Total Score: 18 024 1:46 PM EDT documented as of this encounter Care Teams Picture Painter Relationship Specialty Start Date End Date Zeinab Sykes MD [address] [place] [address] PCP - General Internal Medicine 01/02/24 Tomeka Martins Wire Wrapper Machine OperatorLathe Scalper Operator 10/27/23 documented as of this encounter
--- OUTSIDE RECORDS SUMMARY | 2024-08-22 15:46 | XMS_ITS | Encounter Summary ---
Author Organization [employer] Address 75 [facility] 7t [place] [address] Care Team Providers Care Translator/Interpreter Name Role Phone Zeinab Sykes MD Primary [...] Description 09/25/2024 9:45 AM EDT Office Visit [facility]INE [address] [place] [address] [phone] 10/09/2024 11:45 AM EDT Office Visit [facility] [address] [place] [address] [phone] Zeinab Sykes MD [address] [place] [phone] documented as of this encounter Goals Goal Patient Goal Type Associated Problems Recent Progress Patient-Stated? Author Patient will manage their medication General On track( 023 11:18 AM EDT) Citlali Ocampo PharmD Note: Began medboxes. Goal achieved 11/19/22. Patient graduated from [facility]. documented as of this encounter Visit Diagnoses Not on filedocumented in this encounter Additional Health Concerns Assessment Noted Time PHQ-9 Depression Total Score: 22 025 10:31 AM EST documented as of this encounter Care Teams Translator/Interpreter Relationship Specialty Start Date End Date Zeinab Sykes MD 230 [place] [address] PCP - General Internal Medicine 01/02/24 Tomeka Martins Patient Care AssistantField Adjuster 10/27/23 documented as of this encounter
--- OUTSIDE RECORDS SUMMARY | 2024-08-22 15:46 | XMS_ITS | Clinical Summary ---
Author Organization [facility] Address [address] [place] [address] [address] [place] [address] Care Team Providers Care Photoengraver Name Role Phone Zeinab Sykes MD Primary [...] 1.25 mg by mouth in the morning. 024 Active chlorthalidone (Hygroton) 25 MG tablet TAKE 1/2 TABLET BY MOUTH EVERY MORNING 45 tablet 3 024 Active oxymetazoline (Afrin Nasal [place]) 0.05 % nasal spray Administer 2 sprays into each nostril every 12 (twelve) hours if needed for congestion for up to 2 days. Do not use for more than 3 days. 30 mL 024 Active pseudoephedrine (Sudafed) 60 MG tablet Take 1 tablet (60 mg) by mouth every 6 (six) hours if needed for congestion for up to 7 days. 20 tablet 024 Active ondansetron (Zofran) 4 MG tablet Take 1 tablet (4 mg) by mouth every 8 (eight) hours if needed for nausea or vomiting. 12 tablet 024 Active cetirizine (ZyrTEC) 10 MG tabletIndications: Seasonal [...] times daily. 60 capsule 3 024 Active amLODIPine-valsart an (Exforge) 10-320 MG tablet TAKE 1 TABLET BY MOUTH EVERY MORNING 90 tablet 3 024 Active FreeStyle lancetsIndications :Type 2 diabetes mellitus without complication, without long-term current use of insulin ([facility]/HCC) 1 each by Other route Once per day. USE TO TEST BLOOD SUGAR ONCE A DAY 100 each 3 024 Active glucose blood (FREESTYLE LITE) test stripIndications:T ype 2 diabetes mellitus without complication, without long-term current use of insulin ([facility]) USE TO TEST BLOOD SUGAR ONCE A DAY 100 each 3 024 Active gabapentin (Neurontin) 300 MG capsuleIndications :Neuropathy TAKE 1 CAPSULE BY MOUTH THREE TIMES DAILY IN THE MORNING, EVENING, AND BEDTIME 90 capsule 3 024 Active ergocalciferol (Vitamin D2) 1.25 MG (99294 UT) capsule TAKE 1 CAPSULE BY MOUTH ONCE WEEKLY ON Tuesday 12 capsule Active oxyCODONE-acetamin ophen (Percocet) 5-325 MG tabletIndications: [...] 120 tablet 025 2024 Active sodium chloride (Shattuck Nasal Cedarcreek) 0.65 % nasal sprayIndications:A cute nasopharyngitis Administer 1 spray into each nostril if needed for congestion. 30 mL 1 025 2025 Active Alcohol Swabs (Alcohol Prep) padsIndications:Ty pe 2 diabetes mellitus without complication, without long-term current use of insulin ([facility]) USE TWICE DAILY 100 each 5 Active albuterol (2.5 MG/3ML) 0.083% nebulizer solution Take 3 mL (2.5 mg) by nebulization every 4 (four) hours if needed for wheezing or shortness of breath (Maximum 4 treatments per day). 75 mL 2 025 2025 Active lidocaine (Lidoderm) 5 % patchIndications:O ther intervertebral disc displacement, lumbar region APPLY 1 PATCH TOPICALLY TO SKIN, LEAVE ON FOR 12 HOURS AND OFF FOR 12 HOURS DIRECTED DIRECTED 30 patch 3 Active azithromycin (Zithromax) 250 MG tabletIndications: Subacute cough Take 2 tablets (500 mg) by mouth Once per day for 1 day, THEN 1 tablet (250 mg) Once per day for 4 days. 6 tablet 025 2024 Active acetaminophen (Tylenol) 325 MG tablet TAKE 2 TABLETS BY MOUTH EVERY 6 HOURS NEEDED FOR PAIN FOR UP TO 10 DAYS 023 2024 Discontinued(R eorder (will not trigger notification to Pharmacy)) Alcohol Swabs (Alcohol Prep) padsIndications:Ty pe 2 diabetes mellitus without complication, without long-term current use of insulin ([facility]) USE TWICE DAILY 100 each 5 024 2024 Discontinued(R eorder (will not trigger notification to Pharmacy)) albuterol (2.5 MG/3ML) 0.083% nebulizer solution Take 3 mL (2.5 mg) by nebulization every 4 (four) hours if needed for wheezing or shortness of breath (Maximum 4 treatments per day). 75 mL 2 024 2024 Discontinued(R eorder (will not trigger notification to Pharmacy)) ergocalciferol (Vitamin D2) 1.25 MG (95875 UT) capsule Take 1 capsule (1.25 mg) by mouth 1 (one) time per week. 12 capsule 024 2024 Discontinued lidocaine (Lidoderm) 5 % patchIndications:O ther intervertebral disc displacement, lumbar region APPLY 1 PATCH TOPICALLY TO SKIN, LEAVE ON FOR 12 HOURS AND OFF FOR 12 HOURS DIRECTED DIRECTED 30 patch 3 024 2024 Discontinued(R eorder (will not trigger notification to Pharmacy)) oxyCODONE-acetamin ophen (Percocet) 5-325 MG tabletIndications: Other [...] bx, I will fu or refer to [facility] after US reports. Left foot pain 03/29/2024 [...] and right L5-S1 decompressive laminectomy at [facility] - surgeon Dr. Melia Pedroza DME request for 10-in-1 pillow on 07/31/24 Assessment & Plan (05/29/2024 5:18 PM EST): Known DDD L-spine with radiculopathy sxs 05/26/2018 - Lumbar decompression surgery: L4-5 and right L5-S1 decompressive laminectomy at [facility] - surgeon Dr. 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 Normal LFTs/albumin Assessment & Plan (03/29/2024 1:40 PM EDT): LFTs remain stable/normal. Dx d/w patient and advised her to continue tight control of DM, weight reduction, try to cut down on opiates and fu with me. I also advised her to avoid ETOH or recreational substances. Seborrheic dermatitis of scalp 01/02/2024 Overview (01/02/2024): Seen at [facility] dermatology Assessment & Plan (03/20/2024 3:50 PM EDT): Generally well controlled, encouraged to continue fu with [facility] derm Refill for fluocinolone today. Housing insecurity [...] pseudophedrine short term. 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 Will refer her back to finishing range supervisor. 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 discussed tapering percocet options, not interested.. Referred to HIM forms dept for handicap plackards documents. Referred to [facility] for polypharmacy education. Continue medications as prescribed. Discussed Narcan. Encouraged nonpharmacologic pain relief strategies. 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 discussed tapering percocet options, not interested, it apparently offers partial enough improvement of sxs. Patient is aware that [facility] use of opiates can cause hyperalgesia, liver toxicity, CUTTING MACHINE FIXER toxicity, increase anxiety, among others. Will continue to work with chronic pain management [facility] clinic. Continue medications as prescribed. Discussed Narcan. [...] PRN for elevated BP readings.. Referred to [facility] for polypharmacy education. Continue medications as [...] to enails with type 2 diabetes mellitus (CMS/HCC) 05/17/2017 03/29/2024 Encounters Date Type Department Care Team Description 08/21/2024 5:20 PM EST Office Visit [facility] [address] [place] [phone] Yonathan Snider MD Subacute cough 08/21/2024 Travel 08/20/2024 Refill [facility] [address] [place] [phone] Zeinab Sykes MD Type 2 diabetes mellitus without complication, without long-term current use of insulin ([facility]); Other intervertebral disc displacement, lumbar region 08/15/2024 10:15 AM EST Office Visit [address] [address] Zeinab Sykes MD Type 2 diabetes mellitus without complication, without long-term current use of insulin ([facility]) (Primary Dx); Essential hypertension; Postmenopause bleeding; Recurrent major depressive disorder, in partial remission ([facility]); Moderate persistent asthma with acute exacerbation; [place] (obstructive sleep apnea); Housing insecurity; Nasal congestion 08/15/2024 Travel 08/14/2024 Travel 08/10/2024 Telephone [facility] [address] [place] [phone] Terra Mackey MA Chart prep 08/08/2024 5:20 PM EST Office Visit [facility] [address] [place] [phone] Lia Martinez NP Acute nasopharyngitis (Primary Dx); Flu-like symptoms 08/08/2024 3:00 PM EST Office Visit [facility] [address] [place] [address] Watkins-Maynard , Gay, DDS Fracture of removable partial denture (Primary Dx) 08/03/2024 3:30 PM EST Office Visit [facility] [address] [place] [address] Watkins-Maynard , Gay, DDS Fracture of removable partial denture (Primary Dx) 08/03/2024 Refill [facility] [address] [place] [address] Zeinab Sykes MD Other intervertebral disc displacement, lumbar region 08/03/2024 Patient Outreach [address] [address] Zeinab Sykes MD Pre-visit Planning ((Unable to reach for PVP screening, LVM)) 08/01/2024 Telephone [facility] [address] [place] [address] Zeinab Sykes MD Durable Medical Equipment (10 In 1 pillow/) 07/31/2024 9:45 AM EST Office Visit [address] [address] Alma Jha FNP Lumbar back pain with radiculopathy affecting left lower extremity (Primary Dx); Long-term current use of opiate analgesic 07/31/2024 Telephone [facility] [address] [place] [address] Alma Jha FNP SEMIAUTOMATIC STITCHER OPERATOR: Tier System 07/31/[address] [address] Scarlett Gibbs, PAULINA BPI Scoring 07/31/2024 Travel 07/30/[address] [address] Zeinab Sykes MD 07/16/[address] [address] Zeinab Sykes MD Med Refill 07/04/20[address] [place] [address] Zeinab Sykes MD Other intervertebral disc displacement, lumbar region 06/29/2024 Refill [facility] [address] [place] [address] Zeinab Sykes MD Neuropathy 06/19/2024 Refill [facility] [address] [place] [address] Zeinab Sykes MD Type 2 diabetes mellitus without complication, without long-term current use of insulin ([facility]) 06/04/2024 Telephone [facility] [address] [place] [address] Zeinab Sykes MD Med Refill 06/04/2024 Refill [facility] [address] [place] [address] Zeinab Sykes MD Other intervertebral disc displacement, lumbar region 05/29/2024 11:00 AM EST Office Visit [facility] [address] [place] [phone] Alma Jha, AUTOMATIC HEAD SAWYER Lumbar back pain with radiculopathy affecting left lower extremity (Primary Dx); Long-term current use of opiate analgesic 05/29/2024 Telephone [facility] [address] [place] [phone] Scarlett Gibbs, RN UTOX 05/29/[address] [address] Zeinab Sykes MD July05/29/2024 Travel from Last 3 Months Immunizations Name Administration [...] Sign Reading Time Taken Comments Blood Pressure 137/87 08/21/2024 5:06 PM EST Pulse 84 08/21/2024 5:06 PM EST Temperature 36.7 ??C (98.1 ??F) 08/21/2024 5:06 PM ES T Respiratory Rate 18 08/21/2024 5:06 PM EST Oxygen Saturation 96% 08/21/2024 5:06 PM EST Inhaled Oxygen Concentration - - Weight 90.7 kg (200 lb) 08/21/2024 5:06 PM EST Height 160 cm (5' 3 ) 08/15/2024 10:29 AM EST Body Mass Index 35.43 08/15/2024 10:29 AM EST Plan of Treatment Upcoming Encounters Date Type Department Care Team (Late st Contact Info) Description 09/25/2024 9:45 AM EDT Office Visit [facility] [address] [place] [address] 10/09/2024 11:45 AM EDT Office Visit [facility] [address] [place] [phone] Zeinab Sykes MD [address] [place] [address] Health Maintenance Due Date Last Done Comments [...] medboxes. Goal achieved 11/19/22. Patient graduated from [facility]. Procedures Procedure Name Priority Date/Time Associated Diagnosis Comments POCT INFLUENZA B (ID NOW RAPID MOLECULAR) Routine 08/21/2024 5:37 PM EST Subacute cough POCT INFLUENZA A (ID NOW RAPID MOLECULAR) Routine 08/21/2024 5:37 PM EST Subacute cough POCT RAPID COVID ANTIGEN Routine 08/21/2024 5:10 PM EST Subacute cough POCT INFLUENZA A (ID NOW RAPID MOLECULAR) Routine 08/15/2024 11:29 AM EST Nasal congestion POCT RAPID COVID ANTIGEN Routine 08/15/2024 11:29 AM EST Nasal congestion POCT INFLUENZA B (ID NOW RAPID MOLECULAR) Routine 08/15/2024 11:28 AM EST Nasal congestion POCT GLUCOSE Routine 08/15/2024 10:38 AM EST Type 2 diabetes mellitus without complication, without long-term current use of insulin ([facility]) POCT RAPID COVID ANTIGEN Routine 08/08/2024 5:54 [...] pain with radiculopathy affecting left lower extremity POCT GLYCATED HEMOGLOBIN, TOTAL Routine 03/29/2024 10:47 AM EDT Type 2 diabetes mellitus without complication, without long-term current use of insulin ([facility]) Full PROPHYLAXIS - ADULT Routine 01/20/2024 2:00 [...] Recently Relevant to Health Maintenance Results * Influenza B (ID NOW Rapid Molecular) (08/21/2024 5:37 PM EST) Only the most recent of3 resultswithin the time period is included. Influenza B Negative Negative, Indeterminate [facility] Swab 08/21/2024 5:37 PM EST Yonathan Snider MD POINT OF CARE TEST ENTER/EDIT OR DERABLES Final Result [facility] [address] [place] [phone] * Influenza A (ID NOW Rapid Molecular) (08/21/2024 5:37 PM EST) Only the most recent of3 resultswithin the time period is included. Influenza A Negative Negative, Indeterminate [facility] Swab 08/21/2024 5:37 PM EST Yonathan Snider MD POINT OF CARE TEST ENTER/EDIT OR DERABLES Final Result [facility] [address] [place] [address] [phone] * POCT Rapid COVID Ag (08/21/2024 5:10 PM EST) Only the most recent of3 resultswithin the time period is included. [facility] Rapid COVID Ag Negative Swab 08/21/2024 5:10 PM EST Yonathan Snider MD POINT OF CARE TEST ENTER/EDIT OR DERABLES Final Result * (ABNORMAL) POCT Glucose (08/15/2024 10:38 AM EST) [facility] Glucose Blood, POC 202(A) 60 - 200 mg/dL QC Media Lot # [id number] Lot# Expiration Date Blood Capillary blood specimen / Unknown 08/15/2024 10:38 AM EST Zeinab Sykes MD POINT OF CARE TEST ENTER /EDIT ORDERABLES Final Result * POCT Rapid RSV JI ID NOW (08/08/2024 5:54 PM EST) [facility] RSV Rapid Ag POC Negative Negative [facility] Swab 08/08/2024 5:54 PM EST Lia Martinez NP POINT OF CARE TEST ENTER/EDIT O RDERABLES Final Result [facility] [address] [place] [address] [phone] * POCT DIDIER-14 Urine Drug Screen (07/31/2024 1:45 PM EST) Only the most recent of2 resultswithin the time period is included. [facility] TCA, Urine Positive Oxycodone Screen, Urine Positive Urine Urine specimen obtained by clean catch procedure / Unknown 07/31/2024 1:45 PM EST Scarlett Onofre RN - 07/31/2024 1:45 PM EST UTOX cup Lot#[id number] Exp. 04/11/26 Internal Pass Control us Zeinab Sykes MD POINT OF CARE TEST ENTER /EDIT ORDERABLES Final Result * Creatinine, Serum (07/03/2024 12:03 PM EST) Creatinine, Serum 0.99 0.5 - 1.4 mg/dL [facility] Estimated Glomerular Filt Rate 56 [facility] Comment:Chronic Kidney Disea se: Estimated GFR < 60 mL/min/1.28n8Nmampl Kidney Disease: Estimated GFR < 15 mL/min/1.73m2 07/03/2024 12:0 3 PM EST 07/03/2024 12:03 PM EST us Generic External Data Provider LAB BLOOD ORDERAB LES Final Result Performing Organization Address City/[facility]/ZIP Co de Phone Number [facility] [address] [place] [phone] * (ABNORMAL) BUN (Blood Urea Nitrogen) (07/03/2024 12:03 PM EST) Urea Nitrogen (BUN) 18(H) 9 - 16 mg/dL [facility] 07/03/2024 12:0 3 PM EST 07/03/2024 12:03 PM EST Generic External Data Provider LAB BLOOD ORDERAB LES Final Result Performing Organization Address City/[facility]/ZIP Co de Phone Number [facility] [address] [place] [phone] * Hematoxylin and Eosin Stain (06/08/2024 10:22 AM EST) 06/08/2024 10:2 2 AM EST 06/08/2024 11:27 AM EST Narrative [facility] - 06/12/2024 11:41 AM EST ----- ------- Name: Rhonda Fernández ? Age/Sex: 63/F ? : 1960 Unit#: [id number] ?? Attend Dr: Nolberto Quigley MD ?Re06/08/24 ?Status: DEP SDC ? Location: HO.SSS ?Disch: ? ----- ------- SPEC : [id number] ? RECD: 06/08/24 ? STATUS: ??SOUT ? REQ NUM: [id number] ? DARWIN: 06/08/24-2 ? SUBM DR: Nolberto Quigley MD ? ENTERED: ??06/08/24-1140 ?SP TYPE: Surgical ? OTHR : [facility] ? ORDERED: ??HE Stain/4, Gross Micro L4/2 [...] ? Age/Sex: 63/F ? : 1960 Unit#: [id number] ?? Attend Dr: Nolberto Quigley MD ?Re06/08/24 ?Status: DEP SDC ? Location: HO.SSS ?Disch: ? ----- ------- SPEC : [id number] ? RECD: 06/08/24 ? STATUS: ??SOUT ? REQ NUM: [id number] ? DARWIN: 06/08/24-1022 ? SUBM DR: Nolberto Quigley MD ? ENTERED: ??06/08/24-1140 ?SP TYPE: Surgical ? OTHR : [facility] ? ORDERED: ??HE Stain/4, Gross Micro L4/2 ? Copies To: ?? [facility] ?? [address] ?? [place] [address] ? Nolberto Quigley MD ?? [facility] ?? [address] ?? [place] [address] ?? [phone] ----- ------- Signed (signature on file) Jimmy Trejo MD 06/12/24 1141 ? ----- ------- ? END OF REPORT ? us Generic External Data Provider LAB BLOOD ORDERAB LES Final Result [facility] [address] [facility] [place] [address] [phone] * (ABNORMAL) Glucose, Whole Blood (06/08/2024 9:44 AM EST) Pathologist [facility] Glucose, Whole Blood 119(H) 60 - 115 mg/dL [facility] Comment:METER #: [id number] 06/08/2024 9:44 AM EST 06/08/2024 9:49 AM EST us Generic External Data Provider LAB BLOOD ORDERAB LES Final Result [facility] [address] [place] [address] [phone] * Pap Smear (06/01/2024 2:43 PM EST) 06/01/2024 2:43 PM EST 06/04/2024 9:25 AM EST Narrative [facility] - 06/20/2024 7:51 AM EST ----- ------- Name: Rhonda Fernández ? Age/Sex: 63/F ? : 1960 Unit#: [id number] ?? Attend Dr: Aisha Mcclain CNM ?Re06/01/24 ?Status: DEP REF ? Location: HO.LNP ?Disch: ? ----- ------- SPEC : [id number] ?RECD: 06/04/24-0925 ? STATUS: ??SOUT ? REQ NUM: [id number] ? DARWIN: 06/01/24-1443 ? SUBM DR: Aisha [...] Copies To: ?? Zeinab Sykes MD ?? [facility] ?? [address] ?? [place] [address] ?? [phone] ?? Aisha Mcclain CNM ?? [facility] ?? [address] ?? [place] [address] ?? [phone] ----- ------- Signed (signature on file) Joaquin INDERJIT Cuellar ([facility]) 06/20/24 0751 ? ----- ------- ? END OF REPORT ? us Generic External Data Provider LAB CYTOLOGY CATHIEE JAVANSOLANGE Final Result [facility] [address] [place], [place] [phone] * Drug Monitoring, Benzodiazepines, Quantitative, Urine (05/29/2024 12:00 PM EST) Nordiazepam, GCMS Urine NEGATIVE [facility] Oxazepam, GCMS Urine NEGATIVE [facility] Lorazepam GCMS Urine NEGATIVE [facility] Alprazolam, GCMS Urine NEGATIVE [facility] Alphahydroxytriazolam, GCMS Ur NEGATIVE [facility] Temazepam, GCMS Urine NEGATIVE [facility] Alphahydroxymidazolam,GC MS Ur NEGATIVE [facility] Aminoclonazepam, GCMS Urine NEGATIVE [facility] Flurazepam Metabolite,GCMS Ur NEGATIVE [facility] Benzodiazepines Comments SEE NOTE [facility] Comment:This drug testing is for medical treatment only.Analysis was performed as non-forensic testing andthese results should be used only by healthcareproviders to render diagnosis or treatment, or tomonitor progress of medical conditions.LDT Notes:Confirmation tests were developed and their analyticalperformance characteristics have been determined by[employer]. It has not been cleared or approvedby the FDA. This assay has been validated pursuant tot CLIA regulations and is used for clinical purposes.Healthcare Providers needing Interpretation assistance,please contact us at [phone] ( )M-F, 8am to 10pm ESTTHIS TEST PERFORMED AT:[facility] [id number] [place] [phone] DIRECTOR: REHAN STAFFORD MD 05/29/2024 12:0 0 PM EST 05/29/2024 2:02 PM EST us Alma Jha [facility] LAB URINE ORDERABLES Final Res ult [facility] [address] [place] [phone] * Drug Monitoring, Fentanyl, with Confirmation, Urine (05/29/2024 12:00 PM EST) Fentanyl, Ur NEGATIVE [facility] Comment:REFERENCE RANGE: <0. 5 ng/mL Norfentanyl, Ur NEGATIVE [facility] Comment:REFERENCE RANGE: <0. 5 ng/mL Fentanyl Note SEE NOTE [facility] Comment:This drug testing is for medical treatment only.Analysis was performed as non-forensic testing andthese results should be used only by healthcareproviders to render diagnosis or treatment, or tomonitor progress of medical conditions.LDT Notes:Confirmation tests were developed and their analyticalperformance characteristics have been determined by[employer]. It has not been cleared or approvedby the FDA. This assay has been validated pursuant tot CLIA regulations and is used for clinical purposes.Healthcare Providers needing Interpretation assistance,please contact us at [phone] ( )M-F, 8am to 10pm ESTTHIS TEST PERFORMED AT:[facility] [address] [phone] DIRECTOR: REHAN STAFFORD MD Urine (Urine, Random) 05/29/2024 12:00 PM EST 05/29/2024 1:10 PM EST us Alma Jha [employer] LAB URINE ORDERABLES Final Res ult [facility] [address] [place] [phone] * (ABNORMAL) POCT HGB A1C (03/29/2024 10:47 AM EDT) Hemoglobin A1C 6.3(A) 4.0 - 6.0 % QC Media Lot # [id number] Lot# Expiration Date [id number] Blood 03/29/2024 10:4 7 AM EDT us Zeinab Sykes MD POINT OF CARE TEST ENTER /EDIT ORDERABLES Final Result * (ABNORMAL) Lipid Panel with Reflex to Direct LDL (01/06/2024 12:38 PM EDT) Triglycerides 91 <150 mg/dL [facility] Comment:Desirable Triglyceri de: less than 150 mg/dLBorderline High Triglyceride 150-199 mg/dLHigh Triglyceride: 200-499 mg/dLVery High Triglyceride: greater than or equal to 5OO mg/dL Cholesterol 211(H) <200 mg/dL [facility] Comment:Desirable Cholestero l: less than 200 mg/dLBorderline High Cholesterol: 200-239 mg/dLHigh Cholesterol: greater than 239 mg/dL LDL Cholesterol Calculated 132(H) <100 mg/dL [facility] Comment:Desirable LDL: less than 100 mg/dLNear Optimal/Above Optimal LDL: 110- 129 mg/dLBorderline High LDL: 130-159 mg/dLHigh LDL: 160-189 mg/dLVery High LDL: greater than or equal to 190 mg/dL HDL Cholesterol 61 >40 mg/dL [facility] Comment:Desirable HDL: great er than 40 mg/dL Note: This HDL assay may give artificially low results in patients with liver disease. Blood 01/06/2024 12:3 8 PM EDT 01/06/2024 4:21 PM EDT Zeinab Sykes MD LAB BLOOD ORDERABLES Fin al Result Performing Organization Address [facility] Co de Phone Number [facility] [address] [place] [address] [phone] * Hepatitis Panel, General (01/06/2024 12:38 PM EDT) Hepatitis A IgM Nonreactive Nonreactive [facility] Comment:IgM antibodies to GUERIN V not detected; does not exclude earlyacute or recovered HAV infection. ~Hepatitis B Surface Antibody REACTIVE Nonreactive [facility] Comment:REACTIVE: > 11.99 mI U/mL Hepatitis B Core Antibody Nonreactive Nonreactive [facility] Hepatitis C Antibody Nonreactive Nonreactive [facility] Comment:Antibodies to HCV no t detected; does not exclude early acuteHCV infection. Hepatitis B Surface Ag Negative Negative [facility] Blood 01/06/2024 12:3 8 PM EDT 01/06/2024 4:21 PM EDT Zeinab Sykes MD LAB BLOOD ORDERABLES Fin al Result Performing Organization Address [facility] de Phone Number [facility] [address] [place] [address] [phone] * HIV-1/2 Antigen and Antibodies, Fourth Generation, with Reflexes (01/06/2024 12:38 PM EDT) HIV AB/AG Nonreactive Nonreactive [facility] Comment:HIV-1 p24 Ag and/or HIV-1/HIV-2 Ab not detected.A test result that is nonreactive does not exclude thepossibility of exposure to or infection with HIV-1 and/orHIV-2. Nonreactive results in this assay for individualswith prior exposure to HIV-1 and/or HIV-2 may be due toantigen and antibody levels that are below the limit ofdetection of this assay.The [employer] HIV Ag/Ab Combo assay result andsupplemental assay results should be interpreted inconjunction with the patient's clinical presentation,history and other laboratory results. If the results areinconsistent with clinical evidence, additional testing issuggested to confirm the result. Blood Venous blood specimen / Unknown 01/06/2024 12:38 PM EDT 01/06/2024 4:21 PM EDT us Zeinab Sykes MD LAB BLOOD ORDERABLES Fin al Result [facility] [address] [place] [address] [phone] * Mammography Report 1 (03/15/2022 5:00 PM EDT) Anatomical Region Laterality Modality Breast Bilateral Mammography 03/15/2022 5:00 PM EDT Narrative 03/16/2022 8:33 AM EDT Refer to the Notes tab for result details [facility] Procedure: Mammography Report 1 Procedure Note Provider, MD Parag - 10/10/2022 Refer to the Notes tab for result details [facility] Procedure: Mammography Report 1 us Evelyn Ledesma AUTOMATIC HEAD SAWYER IMG BI PROCEDURES Final Re sult * ALBUMIN, RANDOM URINE W/CREATININE (03/08/2022 3:04 PM EDT) Microalbumin Urine 1.2 See Note: mg/dL [facility] Comment: Reference Range: ?? Reference [...] [facility] 03/08/2022 3:04 PM EDT us Rebekah Guevara CLOTH MERCERIZER BACK TENDER LAB URINE ORDERABLES Final Res ult Performing Organization Address [facility] Co de Phone Number [facility] [address] * HPV mRNA E6/E7 (07/07/2020 12:00 AM EST) HPV nRNA E6/E7 Not Detected Not Detected [facility] Comment: This test was performed using the APTIMA HPV Assay ([employer] This assay detects E6/E7 viral messenger RNA (mRNA) from 14 high-risk HPV types (16,18,31,33,35,39,45,51,52,56,58,59,66,68). ?? The analytical performance characteristics of this assay have been determined by [employer]. The modifications have not been cleared or approved by the FDA. This assay has been validated pursuant to the CLIA regulations and is used for clinical purposes. 07/07/2020 Historical Provider LAB BLOOD ORDERABLES Sera l Result Performing Organization Address [facility] de Phone Number [facility] [address] from Last 3 Months or Most Recently Relevant to Health Maintenance Insurance [facility] AD[facility] Care Teams Photoengraver Relationship Specialty Start Date End Date Zeinab Sykes MD [address] [place] [phone] PCP - General Internal Medicine 01/02/24 Tomeka Martins Facility Rehab DirectorPost Anesthesia Care Unit Nurse 10/27/23
--- OUTSIDE RECORDS SUMMARY | 2024-08-22 15:46 | XMS_ITS | Encounter Summary ---
Author Organization [facility], Address [address] [place] [address] Phone Care Team Providers Care Foot Tender Name Role Phone Evelyn Rodriguez Primary Care Provider Silvana vailable Encounter Details Date Type Department Care Team (Late st Contact Info) Description 02/18/2023 Documentation Only [facility], [address] [place] [address] Xiao Sheppard [address] [place] [address] Social History Tobacco Use Types [...] on filedocumented in this encounter Care Teams Foot Tender Relationship Specialty Start Date End Date Evelyn Rodriguez FNP PCP - General 02/18/23 documented as of this encounter
--- OUTSIDE RECORDS SUMMARY | 2024-08-22 15:46 | XMS_ITS | Encounter Summary ---
Author Organization [employer] Address [address] 7t [place] [address] Care Team Providers Care Transitional Care Liaison Name Role Phone Zeinab Sykes MD Primary Care Provider + Reason for Visit * Reason Comments Cough Encounter Details Date Type Department Care Team ([facility] Contact Info) Description 08/21/2024 5:20 PM EST Office Visit [facility] [address] [place] [address] [phone] Yonathan Snider MD [address] [place] [address] Subacute cough Social History Tobacco Use Types Packs/Day Years [...] (200 lb) 08/21/2024 5:06 PM EST Height - - Body Mass Index 35.43 08/15/2024 10:29 AM EST documented in this encounter Progress Notes * Yonathan Snider MD - 08/21/2024 5:20 PM EST Subjective History was provided by the patient. Rhonda Mclaughlin is a 63 y.o. female who presents for evaluation of symptoms of a URI. Symptoms include cough, shortness of breath, runny nose, and congestion. Onset of symptoms was 3 weeks ago, unchanged since that time. Associated negative symptoms include fever, chills, sore throat, nausea, vomiting, diarrhea, ear pain, and rash. Evaluation to date: none. Treatment to date: Benzonatateand nasal saline spray (no significant improvement). Objective Vitals: 08/21/24 1706 BP: 137/87 BP Location: Left arm Patient Position: Sitting BP Cuff Size: Adult Pulse: 84 Resp: 18 Temp: 98.1 ??F (36.7 ??C) TempSrc: Oral SpO2: 96% Weight: 200 lb (90.7 kg) Physical Exam Vitals reviewed. Constitutional: Appearance: Normal appearance. She is normal weight. HENT: Head: Normocephalic and atraumatic. Right Ear: Tympanic membrane, ear canal and external ear normal. Left Ear: Tympanic membrane, ear canal and external ear normal. Nose: Nose normal. No congestion or rhinorrhea. Mouth/Throat: Mouth: Mucous membranes are dry. Pharynx: Oropharynx is clear. Posterior oropharyngeal erythema present. No oropharyngeal exudate. Eyes: Extraocular Movements: Extraocular movements intact. Conjunctiva/sclera: Conjunctivae normal. Pupils: Pupils are equal, round, and reactive to light. Cardiovascular: Rate and Rhythm: Normal rate and regular rhythm. Heart sounds: Normal heart sounds. Pulmonary: Effort: Pulmonary effort is normal. Breath sounds: Normal breath sounds. Musculoskeletal: General: Normal range of motion. Cervical back: Normal range of motion and neck supple. Lymphadenopathy: Cervical: No cervical adenopathy. Skin: General: Skin is warm and dry. Neurological: General: No focal deficit present. Mental Status: She is alert and oriented to person, place, and time. Mental status is at baseline. Psychiatric: Mood and Affect: Mood normal. Behavior: Behavior normal. Thought Content: Thought content normal. Judgment: Judgment normal. Office Visit on 08/21/2024 Component Date Value Ref Range Status Influenza A 08/21/2024 Negative Negative, Indeterminate Final Influenza B 08/21/2024 Negative Negative, Indeterminate Final Rapid COVID Ag 08/21/2024 Negative Final Rhonda was seen today for cough. Diagnoses and all orders for this visit: Subacute cough - Influenza A (ID NOW Rapid Molecular) - Influenza B (ID NOW Rapid Molecular) - POCT Rapid COVID Ag - XR Chest 2 Views; Future - Respiratory Viral Panel PCR; Future - azithromycin (Zithromax) 250 MG tablet; Take 2 tablets (500 mg) by mouth Once per day for 1 day, THEN 1 tablet (250 mg) Once per day for 4 days. Patient presents to [facility] due to 3-week duration of cough Tested negative for Influenza and COVID x3 (including today) Also tested negative for RSV at the onset of her Normal pulmonary exam and no respiratory distress Given duration of her symptoms, will check Respiratory Panel and treat empirically with Azithromycin Check CXR Discussed supportive care with ample hydration, sleep position and rest OTC supportive medications reviewed Droplet precautions discussed Advised to contact the clinic if no improvement of symptoms Indications for UC/ER use reviewed documented in this encounter Plan of Treatment Upcoming Encounters Date Type Department Care Team (Late st Contact Info) Description 09/25/2024 9:45 AM EDT Office Visit [facility] [address] [place] [phone] 10/09/2024 11:45 AM EDT Office Visit [facility] [address] [place] [address] 525[address] Zeinab Sykes MD [address] [place] [address] Scheduled Orders Name Type Priority Associated Diagnoses Orde r Schedule XR Chest 2 Views Imaging Routine Subacute cough Expected: 08/21/2024, Expires: 08/21/2025 Respiratory Viral Panel PCR Lab Routine Subacute cough Expected: 08/21/2024 (Approximate), Expires: 08/21/2025 documented as of this encounter Goals Goal Patient Goal Type Associated Problems Recent Progress Patient-Stated? Author Patient will manage their medication General On track( 023 11:18 AM EDT) Citlali Ocampo PharmD Note: Began medboxes. Goal achieved 11/19/22. Patient graduated from [facility]. documented as of this encounter Procedures Procedure Name Priority Date/Time Associated Diagnosis Comments POCT INFLUENZA B (ID NOW RAPID MOLECULAR) Routine 08/21/2024 5:37 PM EST Subacute cough POCT INFLUENZA A (ID NOW RAPID MOLECULAR) Routine 08/21/2024 5:37 PM EST Subacute cough POCT RAPID COVID ANTIGEN Routine 08/21/2024 5:10 PM EST Subacute cough documented in this encounter Results * Influenza B (ID NOW Rapid Molecular) (08/21/2024 5:37 PM EST) Influenza B Negative Negative, Indeterminate [facility] Swab 08/21/2024 5:37 PM EST us Yonathan Snider MD POINT OF CARE TEST ENTER/EDIT OR DERABLES Final Result Performing Organization Address [facility]/ZIP Co de Phone Number [facility] [address] [place] [address] [phone] * Influenza A (ID NOW Rapid Molecular) (08/21/2024 5:37 PM EST) Influenza A Negative Negative, Indeterminate [facility] Swab 08/21/2024 5:37 PM EST us Yonathan Snider MD POINT OF CARE TEST ENTER/EDIT OR DERABLES Final Result Performing Organization Address [facility] Co de Phone Number [facility] [address] [place] [address] [phone] * POCT Rapid COVID Ag (08/21/2024 5:10 PM EST) Rapid COVID Ag Negative Swab 08/21/2024 5:10 PM EST us Yonathan Snider MD POINT OF CARE TEST ENTER/EDIT OR DERABLES Final Result documented in this encounter Visit Diagnoses Diagnosis Subacute cough documented in this encounter Additional Health Concerns Assessment Noted Time PHQ-9 Depression Total Score: 22 025 10:31 AM EST documented as of this encounter Care Teams Transitional Care Liaison Relationship Specialty Start Date End Date Zeinab Sykes MD [address] [place] [address] [phone] PCP - General Internal Medicine 01/02/24 Tomeka Martins Freelance CopywriterMule Developer 10/27/23 documented as of this encounter
--- OUTSIDE RECORDS SUMMARY | 2024-08-22 15:46 | XMS_ITS | Encounter Summary ---
Author Organization [employer] [facility] Address [address] [place] [address] 7t [place] [address] Care Team Providers Care Emergency Medical Dispatcher Name Role Phone Oralia Aguila MD Primary Care Provider [phone] Zeinab Sykes MD Primary Care Provider + Reason for Visit * Reason Comments Med Refill Encounter Details Date Type Department Care Team (Late Contact Info) Description 07/06/2023 Refill [facility] [address] [place] [address] Bryn Franklin MD [address] [place] [address] Social History Tobacco Use Types Packs/Day Years [...] Description 09/25/2024 9:45 AM EDT Office Visit [facility] [address] [place] [address] [phone] 10/09/2024 11:45 AM EDT Office Visit [facility] [address] [place] [address] [phone] Zeinab Sykes MD [address] [place] [address] documented as of this encounter Goals Goal Patient Goal Type Associated Problems Recent Progress Patient-Stated? Author Patient will manage their medication General On track( 023 11:18 AM EDT) Citlali Ocampo, Anoop Note: Began medboxes. Goal achieved 11/19/22. Patient graduated from [facility]. documented as of this encounter Visit Diagnoses Not on filedocumented in this encounter Care Teams Emergency Medical Dispatcher Relationship Specialty Start Date End Date Oralia Aguila MD [address] [place] [address] [phone] PCP - General Family Medicine 04/26/23 01/01/24 Zeinab Sykes MD [address] [place] [address] [phone] PCP - General Internal Medicine 01/02/24 Tomeka Martins Fishing Line Winding Machine OperatorHoof And Shoe Inspector 10/27/23 documented as of this encounter
--- OUTSIDE RECORDS SUMMARY | 2024-08-22 15:46 | XMS_ITS | Encounter Summary ---
Author Organization [employer] [facility] Address [address] [place] [address] 7t [place] [address] Care Team Providers Care Partner Marketing Intern Name Role Phone Zeinab Sykes MD Primary Care Provider + Reason for Referral * Hospital - Outpatient (Routine) - Authorized Specialty Diagnoses / Procedures Referred By Contac t Referred To Contact Diagnoses ADELAIDE (obstructive sleep apnea) Procedures Polysomnography Zeinab Sykes MD [address] [place] [address] Phone: tel: fax: [address] Phone: tel: fax: Referral ID Status Reason Start Date Expiration Date V isits Requested Visits Authorized [id number] Authorized 08/15/2024 08/15/2025 1 1 Reason for [...] Encounter Details Date Type Department Care Team ([facility] st Contact Info) Description 08/15/2024 10:15 AM EST Office Visit [facility] [address] [place], [place] [phone] Zeinab Sykes MD [address] [place] [address] Type 2 diabetes mellitus without complication, without [...] t he electric, gas, oil or water [employer] threatened to shut off services in your [...] Description 09/25/2024 9:45 AM EDT Office Visit [facility] [address] [place] [address] [phone] 10/09/2024 11:45 AM EDT Office Visit [facility] [address] [place] [address] [phone] Zeinab Sykes MD [address] [place] [address] [phone] Scheduled Orders Name Type Priority Associated Diagnoses [...] achieved 11/19/22. Patient graduated from [facility]. documented as of this encounter [...] complication, without long-term current use of insulin ([facility]) documented in this encounter Results * POCT Rapid Influenza A JI ID NOW (08/15/2024 11:29 AM EST) Influenza A Negative Negative, Indeterminate [facility] QC Media Lot # [id number] [facility] Lot# Expiration Date [facility] Swab 08/15/2024 11:2 9 AM EST Zeinab Sykes MD POINT OF CARE TEST ENTER /EDIT ORDERABLES Final Result Performing Organization Address [facility]/ZIP Co de Phone Number [facility] [address] [place] [phone] * POCT Rapid Covid-19 Bin[employer]NOW (08/15/2024 11:29 AM EST) Rapid COVID Ag Negative [facility] QC Media Lot # [id number] [facility] Lot# Expiration Date [id number] [facility] Swab 08/15/2024 11:2 9 AM EST Zeinab Sykes MD POINT OF CARE TEST ENTER /EDIT ORDERABLES Final Result Performing Organization Address [facility]/ZIP Co de Phone Number [facility] [address] [place] [address] [phone] * POCT Rapid Influenza B JI ID NOW (08/15/2024 11:28 AM EST) Influenza B Negative Negative, Indeterminate [facility] QC Media Lot # [id number] [facility] Lot# Expiration Date [facility] Swab 08/15/2024 11:2 8 AM EST Zeinab Sykes MD POINT OF CARE TEST ENTER /EDIT ORDERABLES Final Result Performing Organization Address City/[facility]/ZIP Co de Phone Number [facility] [address] [place] [phone] [phone] * (ABNORMAL) POCT Glucose (08/15/2024 10:38 [...] complication, without long-term current use of insulin ([facility])- Primary Essential hypertension Unspecified essential hypertension Postmenopause bleeding Postmenopausal bleeding Recurrent major depressive disorder, in partial remission ([facility]) Moderate persistent asthma with acute exacerbation ADELAIDE [...] documented as of this encounter Care Teams Partner Marketing Intern Relationship Specialty Start Date End Date Zeinab Sykes MD [address] [place] [address] [phone] PCP - General Internal Medicine 01/02/24 Tomeka Martins Frame StraightenerLead Rider 10/27/23 documented as of this encounter
--- OUTSIDE RECORDS SUMMARY | 2024-08-22 15:46 | XMS_ITS | Encounter Summary ---
Author Organization [employer] Address [address] [facility] [address] [facility] 7t [place] [address] Care Team Providers Care National [employer] Member Name Role Phone Zeinab Sykes MD Primary Care Provider + Reason for Visit * Reason Onset Date Comments Durable Medical Equipment 08/01/2024 10 In 1 pillow Encounter Details Date Type Department Care Team ([facility] st Contact Info) Description 08/01/2024 Telephone [facility] [address] [place] [address] Zeinab Sykes MD [address] [place] [address] Durable Medical Equipment (10 In 1 pillow/) [...] 9:45 AM EDT Office Visit [facility] [address] [place] [phone] 10/09/2024 11:45 AM EDT Office Visit [facility] [address] [place] [address] [phone] Zeinab Sykes MD [address] [place] [address] [phone] documented as of this encounter Goals Goal Patient Goal Type Associated Problems Recent Progress Patient-Stated? Author Patient will manage their medication General On track( 023 11:18 AM EDT) Citlali Ocampo, Anoop Note: Began medboxes. Goal achieved 11/19/22. Patient graduated from [facility]. documented as of this encounter Visit Diagnoses Not on filedocumented in this encounter Additional Health Concerns Assessment Noted Time PHQ-9 Depression Total Score: 18 024 1:46 PM EDT documented as of this encounter Care Teams [employer] Member Relationship Specialty Start Date End Date Zeinab Sykes MD [address] [place] [address] [phone] PCP - General Internal Medicine 01/02/24 Tomeka Martins Patent ChemistCarpenter 10/27/23 documented as of this encounter
--- OUTSIDE RECORDS SUMMARY | 2024-08-22 15:46 | XMS_ITS | Encounter Summary ---
Author Organization [employer] [facility] Address [address] [facility] 7t [place] [address] Care Team Providers Care Behavioral Health Case Manager Name Role Phone Zeinab Sykes MD Primary Care Provider + Encounter Details Date Type Department Care Team ([facility] st Contact Info) Description 08/03/2024 3:30 PM EST Office Visit [facility] [address] [place] [address] Gay Thompson, DDS [address] [place] [address] Fracture of removable partial denture (Primary Dx) [...] female. Time Out: No data recorded Location: [facility] Tooth: Mandible Procedure: Dentures fracture Verified the above with patient, household personal assistant, and provider. Confirmed via patient's chart, intraorally and by radiographs. Sanitation Manager: not applicable Chief complaint: Fractured denture Medical [...] they finally detached. Lower [employer] sent to [facility] for repair. [place]: delivery repaired [employer] Fscm Developer: Shannon Velasquez Dentist: Gay Thompson DDS documented in this encounter Plan of Treatment Upcoming Encounters Date Type Department Care Team (Late st Contact Info) Description 09/25/2024 9:45 AM EDT Office Visit [facility] [address] [place] [phone] 10/09/2024 11:45 AM EDT Office Visit [facility] [address] [place] [address] [phone] Zeinab Sykes MD [address] [place] [address] [phone] Scheduled Orders Name Type Priority Associated Diagnoses Orde r Schedule DENTAL LAB DENTURES AND PARTIALS Dental Routine Ordered: 025 documented as of this encounter Goals Goal Patient Goal Type Associated Problems Recent Progress Patient-Stated? Author Patient will manage their medication General On track( 023 11:18 AM EDT) Citlali Ocampo, PharmD Note: Began medboxes. Goal achieved 11/19/22. Patient graduated from [facility]. documented as of this encounter Procedures [...] documented as of this encounter Care Teams Behavioral Health Case Manager Relationship Specialty Start Date End Date Zeinab Sykes MD [address] [place] [address] [phone] PCP - General Internal Medicine 01/02/24 Tomeka Martins Editor MagazineMicrosoft Infrastructure Consultant 10/27/23 documented as of this encounter
--- OUTSIDE RECORDS SUMMARY | 2024-08-22 15:46 | XMS_ITS | Encounter Summary ---
Author Organization [employer] [facility] Address [address] [place] [address] 7t [place] [address] Care Team Providers Care Power Generation Plant Operator Name Role Phone Oralia Aguila MD Primary Care Provider [phone] Zeinab Sykes MD Primary Care Provider + Reason for Visit * Reason Onset Date Comments antibiotics pre med 07/19/2023 Encounter Details Date Type Department Care Team ([facility] st Contact Info) Description 07/19/2023 Telephone [facility] ADULT D[facility]AL [address] [place] [address] AttStefany terry, DDS [address], [place] [phone] antibiotics pre med Social History Tobacco Use [...] Description 09/25/2024 9:45 AM EDT Office Visit [address] [address] 10/09/2024 11:45 AM EDT Office Visit [address] [address] Zeinab Sykes MD [address] [place] [address] documented as of this encounter Goals Goal Patient Goal Type Associated Problems Recent Progress Patient-Stated? Author Patient will manage their medication General On track( 023 11:18 AM EDT) Citlali Ocampo, Anoop Note: Began medboxes. Goal achieved 11/19/22. Patient graduated from [facility]. documented as of this encounter Visit Diagnoses Not on filedocumented in this encounter Care Teams Power Generation Plant Operator Relationship Specialty Start Date End Date Oralia Aguila MD [address] [place] [address] PCP - General Family Medicine 04/26/23 01/01/24 Zeinab Sykes MD [address] [place] [address] PCP - General Internal Medicine 01/02/24 Tomeka Martins Sheet Metal Duct Worker SupervisorBlade Boner 10/27/23 documented as of this encounter
--- OUTSIDE RECORDS SUMMARY | 2024-08-22 15:46 | XMS_ITS | Encounter Summary ---
Author Organization [employer] Address [address] [facility] 7t [place] [address] Care Team Providers Care Head Housekeeper Name Role Phone Zeinab Sykes MD Primary [...] Description 09/25/2024 9:45 AM EDT Office Visit [facility] MEDICINE [address] [place] [address] [phone] 10/09/2024 11:45 AM EDT Office Visit [facility] MEDICINE [address] [place] [address] [phone] Zeinab Sykes MD [address] [place] [address] documented as of this encounter Goals Goal Patient Goal Type Associated Problems Recent Progress Patient-Stated? Author Patient will manage their medication General On track( 023 11:18 AM EDT) Citlali Ocampo PharmD Note: Began medboxes. Goal achieved 11/19/22. Patient graduated from [facility]. documented as of this encounter Visit Diagnoses Not on filedocumented in this encounter Additional Health Concerns Assessment Noted Time PHQ-9 Depression Total Score: 18 024 1:46 PM EDT documented as of this encounter Care Teams Head Housekeeper Relationship Specialty Start Date End Date Zeinab Sykes MD [address] [place] [address] PCP - General Internal Medicine 01/02/24 Tomeka Martins Merchandise Flow AssociateForestry Conservation Worker 10/27/23 documented as of this encounter
--- OUTSIDE RECORDS SUMMARY | 2024-08-22 15:46 | XMS_ITS | Encounter Summary ---
Author Organization [facility] Address [address] [place] [address] [place] [address] Care Team Providers Care Heel Shaver Name Role Phone Evelyn Ledesma Primary Care Provider [phone] Oralia Aguila MD Primary Care Provider [phone] Zeinab Sykes MD Primary Care Provider + Reason for Visit * Reason Comments Med Refill Encounter Details Date Type Department Care Team (Late st Contact Info) Description 02/05/2023 Refill [facility] MEDICINE [address] [place] [address] Evelyn Ledesma FNP [address] [place] [address] Dept [place] [address] Neuropathy Social History Tobacco Use Types Packs/Day [...] 09/25/2024 9:45 AM EDT Office Visit [facility] MEDICINE [address] [place] [address] 10/09/2024 11:45 AM EDT Office Visit [facility] MEDICINE [address] [place] [address] Zeinab Sykes MD [address] [place] [address] documented as of this encounter Goals Goal Patient Goal Type Associated Problems Recent Progress Patient-Stated? Author Patient will manage their medication General On track( 023 11:18 AM EDT) Citlali Ocampo, Anoop Note: Began medboxes. Goal achieved 11/19/22. Patient graduated from [facility]. documented as of this encounter Visit Diagnoses Diagnosis Neuropathy Mononeuritis of unspecified site documented in this encounter Care Teams Heel Shaver Relationship Specialty Start Date End Date Evelyn Ledesma FNP PCP - General Family Medicine 03/15/22 04/25/23 Oralia Aguila MD [address] [place] [phone] PCP - General Family Medicine 04/26/23 01/01/24 Zeinab Sykes MD [address] [place] [address] PCP - General Internal Medicine 01/02/24 Tomeka Martins Shotgun Shell Reprinting Unit OperatorSpecial Events Director 10/27/23 documented as of this encounter
--- OUTSIDE RECORDS SUMMARY | 2024-08-22 15:46 | XMS_ITS | Encounter Summary ---
Author Organization [employer] [facility] Address [address] [place] [address] 7t [place] [address] Care Team Providers Care Tire And Lube Technician Name Role Phone Evelyn Ledesma Primary Care Provider [phone] Oralia Aguila MD Primary Care Provider [phone] Zeinab Sykes MD Primary Care Provider + Encounter Details Date Type Department Care Team (Latest Contact Info) Description 10/30/2020 Abstract [facility] CONVERSIONS Dental, Provider, DDS Social History [...] Description 09/25/2024 9:45 AM EDT Office Visit [facility] MEDICINE [address] [place] [address] [phone] 10/09/2024 11:45 AM EDT Office Visit [facility] MEDICINE [address] [place] [address] [phone] Zeinab Sykes MD [address] [place] [address] [phone] documented as of this encounter Visit Diagnoses Not on filedocumented in this encounter Care Teams Tire And Lube Technician Relationship Specialty Start Date End Date Evelyn Ledesma FNP PCP - General Family Medicine 03/15/22 04/25/23 Oralia Aguila MD [address] [place] [address] PCP - General Family Medicine 04/26/23 01/01/24 Zeinab Sykes MD [address] [place] [address] PCP - General Internal Medicine 01/02/24 Tomeka Martins Clinical SecretaryHousehold Manager 10/27/23 documented as of this encounter
--- OUTSIDE RECORDS SUMMARY | 2024-08-22 15:46 | XMS_ITS | Clinical Summary ---
Author Organization [facility] Address [address] [place] [address] Care Team Providers Care Field Trainer Name Role Phone Meryl Montes Primary Care Provider Surgical History Surgery Date Site/Laterality Comments BREAST REDUCTION PROCEDURE: OK BREAST REDUCTION BACK SURGERY PROCEDURE: HISTORICAL BACK [...] age to complete this topic Care Teams Field Trainer Relationship Specialty Start Date End Date Meryl Montes [address] [place] [phone] PCP - General 05/07/22
--- OUTSIDE RECORDS SUMMARY | 2024-08-22 15:46 | XMS_ITS | Encounter Summary ---
Author Organization [employer] [facility] Address [address] [place] [address] 7t [place] [address] Care Team Providers Care Hearing Healthcare Practitioner Name Role Phone Oralia Aguila MD Primary Care Provider [phone] Zeinab Sykes MD Primary Care Provider + Reason for Visit * Reason Onset Date Comments Med Refill 05/05/2023 Encounter Details Date Type Department Care Team (Late st Contact Info) Description 05/05/2023 Refill [facility] MEDICINE [address] [place], [place] [phone] Oralia Aguila MD [address] [place], [place] [phone] Other intervertebral disc displacement, lumbar region Social [...] 5- 325 MG tablet to besent to [facility] - [place], [place] - [address] [facility] documented in this encounter Plan of Treatment Upcoming Encounters Date Type Department Care Team (Late st Contact Info) Description 09/25/2024 9:45 AM EDT Office Visit [facility] [address] [facility] [place] [address] 10/09/2024 11:45 AM EDT Office Visit [facility] MEDICINE [address] [place] [address] [place] [address] documented as of this encounter Goals Goal Patient Goal Type Associated Problems Recent Progress Patient-Stated? Author Patient will manage their medication General On track( 023 11:18 AM EDT) Citlali Ocampo, PharmD Note: Began medboxes. Goal achieved 11/19/22. Patient graduated from [facility]. documented as of this encounter Visit Diagnoses Diagnosis Other intervertebral disc displacement, lumbar region documented in this encounter Care Teams Hearing Healthcare Practitioner Relationship Specialty Start Date End Date [place] [address] PCP - General Family Medicine 04/26/23 01/01/24 Zeinab Sykes MD [address] [place] [address] PCP - General Internal Medicine 01/02/24 Tomeka Martins Stock MixerSet Up Mechanic Coil Winding Machines 10/27/23 documented as of this encounter
--- OUTSIDE RECORDS SUMMARY | 2024-08-22 15:46 | XMS_ITS | Encounter Summary ---
Author Organization [employer] [facility] Address [address] [place] [address] 7t [place] [address] Care Team Providers Care Tunneling Machine Operator Name Role Phone Oralia Aguila MD Primary Care Provider [phone] Zeinab Sykes MD Primary Care Provider + Reason for Visit * Reason Comments Med Refill Encounter Details Date Type Department Care Team (Late Contact Info) Description 09/21/2023 Refill [facility] MEDICINE [address] [place] [address] Oralia Aguila MD [address] [place], [place] [phone] Neuropathy Social History Tobacco Use Types Packs/Day [...] Upcoming Encounters Date Type Department Care Team ([facility] Contact Info) Description 09/25/2024 9:45 AM EDT Office Visit [facility] MEDICINE [address] [place] [address] [phone] 10/09/2024 11:45 AM EDT Office Visit [facility] MEDICINE [address] [place] [address] Zeinab Sykes MD [address] [place] [address] documented as of this encounter Goals Goal Patient Goal Type Associated Problems Recent Progress Patient-Stated? Author Patient will manage their medication General On track( 023 11:18 AM EDT) Citlali Ocampo, Anoop Note: Began medboxes. Goal achieved 11/19/22. Patient graduated from [facility]. documented as of this encounter Visit Diagnoses Diagnosis Neuropathy Mononeuritis of unspecified site documented in this encounter Care Teams Tunneling Machine Operator Relationship Specialty Start Date End Date Oralia Aguila MD [address] [place] [address] PCP - General Family Medicine 04/26/23 01/01/24 Zeinab Sykes MD [address] [place] [address] PCP - General Internal Medicine 01/02/24 Tomeka Martins Spool SalvagerFeed Elevator Worker 10/27/23 documented as of this encounter
--- OUTSIDE RECORDS SUMMARY | 2024-08-22 15:46 | XMS_ITS | Encounter Summary ---
Author Organization [employer] Address [address] [facility] 7t [place] [address] Care Team Providers Care Switch Tender Name Role Phone Zeinab Sykes MD Primary Care Provider + Encounter Details Date Type Department Care Team (Latest Contact Info) Description 07/31/2024 9:45 AM EST Office Visit [facility] MEDICINE [address] [place] [address] Alma Jha FNP [address] [place] [address] Lumbar back pain with radiculopathy affecting left [...] this encounter Progress Notes * Alma Jha, SEQUINS STRINGER - 07/31/2024 9:45 AM EST Subjective: Rhonda [...] L4-5 and right L5-S1 decompressive laminectomy at [facility] - surgeon Dr. Melia Pedroza Indicated Dx: [...] disc, s/p vagus nerve stimulator, neuropathy Last CAN MACHINE OPERATOR Agreement: 03/13/24 Current Assessment & Plan -Good [...] L4-5 and right L5-S1 decompressive laminectomy at [facility] - surgeon Dr. Melia Pedroza DME request for 10-in-1 pillow on 07/31/24 Relevant Orders POCT DIDIER-14 Urine Drug Screen (Completed) Follow up: 1-3 months for CAN MACHINE OPERATOR visit. Follow up as scheduled with PCP, sooner as needed. * Scarlett Gibbs RN - 07/31/2024 9:45 AM EST CAN MACHINE OPERATOR equipment maintenance engineer: PDMP reviewed today. Last fill date: 07/05/24 [...] L4-5 and right L5-S1 decompressive laminectomy at [facility] - surgeon Dr. Melia Pedroza DME request [...] Description 09/25/2024 9:45 AM EDT Office Visit [facility] MEDICINE [address] [place] [address] 10/09/2024 11:45 AM EDT Office Visit [facility] MEDICINE [address] [place] [address] Zeinab Sykes MD [address] [place] [address] documented as of this encounter Goals Goal Patient Goal Type Associated Problems Recent Progress Patient-Stated? Author Patient will manage their medication General On track( 023 11:18 AM EDT) Citlali Ocampo PharmD Note: Began medboxes. Goal achieved 11/19/22. Patient graduated from [facility]. documented as of this encounter Procedures [...] - 07/31/2024 1:45 PM EST U[employer] cup Lot#[id number] Exp. 04/11/26 Internal Pass Control Zeinab Sykes [...] documented as of this encounter Care Teams Switch Tender Relationship Specialty Start Date End Date Zeinab Sykes MD [address] [place] [address] PCP - General Internal Medicine 01/02/24 Tomeka Martins Sourcing ConsultantPresident Finance Company 10/27/23 documented as of this encounter
--- OUTSIDE RECORDS SUMMARY | 2024-08-22 15:46 | XMS_ITS | Encounter Summary ---
Author Organization [employer] Address [address] [place] [address] 7t [place] [address] Care Team Providers Care Ethologist Name Role Phone Zeinab Sykes MD Primary Care Provider + Reason for Visit * Reason Onset Date Comments Med Refill 08/03/2024 Encounter Details Date Type Department Care Team (Late st Contact Info) Description 08/03/2024 Refill [facility] MEDICINE [address] [place], [place] [phone] Zeinab Sykes MD [address] [place] [address] Other intervertebral disc displacement, lumbar region Social [...] MG tablet () To be sent to: [facility] documented in this encounter Plan of Treatment Upcoming Encounters Date Type Department Care Team (Late st Contact Info) Description 09/25/2024 9:45 AM EDT Office Visit [facility] MEDICINE [address] [place] [address] 10/09/2024 11:45 AM EDT Office Visit [facility] MEDICINE [address] [place] [address] Zeinab Sykes MD [address] [place] [address] documented as of this encounter Goals Goal Patient Goal Type Associated Problems Recent Progress Patient-Stated? Author Patient will manage their medication General On track( 023 11:18 AM EDT) No Citlali Armando, Anoop Note: Began medboxes. Goal achieved 11/19/22. Patient graduated from [facility]. documented as of this encounter Visit Diagnoses Diagnosis Other intervertebral disc displacement, lumbar region documented in this encounter Additional Health Concerns Assessment Noted Time PHQ-9 Depression Total Score: 18 024 1:46 PM EDT documented as of this encounter Care Teams Ethologist Relationship Specialty Start Date End Date Zeinab Sykes MD [address] [place] [address] PCP - General Internal Medicine 01/02/24 Tomeka Martins Solutions Market ConsultantPrice Accuracy Supervisor 10/27/23 documented as of this encounter
--- OUTSIDE RECORDS SUMMARY | 2024-08-22 15:46 | XMS_ITS | Encounter Summary ---
Author Organization [employer] [facility] Address [address] [place] [address] 7t [place] [address] Care Team Providers Care Chief Architect Name Role Phone Evelyn Ledesma Primary Care Provider [phone] Oralia Aguila MD Primary Care Provider [phone] Zeinab Sykes MD Primary Care Provider + Encounter Details Date Type Department Care Team (Latest Contact Info) Description 12/21/2018 Abstract [facility] CONVERSIONS Dental, Provider, DDS Social History Tobacco [...] Description 09/25/2024 9:45 AM EDT Office Visit [facility] MEDICINE [address] [place] [address] [phone] 10/09/2024 11:45 AM EDT Office Visit [facility] MEDICINE [address] [place] [address] [phone] Zeinab Sykes MD [address] [place] [address] documented as of this encounter Visit Diagnoses Not on filedocumented in this encounter Care Teams Chief Architect Relationship Specialty Start Date End Date Evelyn Ledesma FNP PCP - General Family Medicine 03/15/22 04/25/23 Oralia Aguila MD [address] [place] [address] PCP - General Family Medicine 04/26/23 01/01/24 Zeinab Sykes MD [address] [place] [address] PCP - General Internal Medicine 01/02/24 Tomeka Martins Automat Car AttendantHub Lead 10/27/23 documented as of this encounter
--- OUTSIDE RECORDS SUMMARY | 2024-08-22 15:46 | XMS_ITS | Encounter Summary ---
Author Organization [employer] Address [address] [place] [address] 7t [place] [address] Care Team Providers Care Host Coordinator Name Role Phone Evelyn Ledesma Primary Care Provider [phone] Oralia Aguila MD Primary Care Provider [phone] Zeinab Sykes MD Primary Care Provider + Reason for Visit * Reason Onset Date Comments medical clearance 02/11/2023 Encounter Details Date Type Department Care Team (Late st Contact Info) Description 02/11/2023 Telephone [facility]ULT DENTAL [address] [place] [address] Asad Shore DDS [address] [place] [address] medical clearance Social History Tobacco Use Types [...] Description 09/25/2024 9:45 AM EDT Office Visit [address] [phone] 10/09/2024 11:45 AM EDT Office Visit [address] [phone] Zeinab Sykes MD [address] [place] [address] [phone] documented as of this encounter Goals Goal Patient Goal Type Associated Problems Recent Progress Patient-Stated? Author Patient will manage their medication General On track( 023 11:18 AM EDT) Citlali Ocampo, PharmD Note: Began medboxes. Goal achieved 11/19/22. Patient graduated from [facility]. documented as of this encounter Visit Diagnoses Not on filedocumented in this encounter Care Teams Host Coordinator Relationship Specialty Start Date End Date Evelyn Ledesma FNP PCP - General Family Medicine 03/15/22 04/25/23 Oralia Aguila MD [address] [place] [address] [phone] PCP - General Family Medicine 04/26/23 01/01/24 Zeinab Sykes MD [address] [place] [address] [phone] PCP - General Internal Medicine 01/02/24 Tomeka Martins Technical Systems ArchitectLoan Representative 10/27/23 documented as of this encounter
--- OUTSIDE RECORDS SUMMARY | 2024-08-22 15:46 | XMS_ITS | Encounter Summary ---
Author Organization [employer] Address [address] [facility] 7t [place] [address] Care Team Providers Care Appeals Assistant Name Role Phone Zeinab Sykes MD Primary Care Provider + Reason for Visit * Reason Onset Date Comments Chart prep 08/10/2024 Encounter Details Date Type Department Care Team ([facility] st Contact Info) Description 08/10/2024 Telephone [facility] MEDICINE [address] [place] [address] Terra Mackey MA Chart prep Social History [...] 9:45 AM EDT Office Visit [facility] MEDICINE [address] [place] [address] 10/09/2024 11:45 AM EDT Office Visit [facility] MEDICINE [address] [place] [address] Zeinab Sykes MD [address] [place] [address] documented as of this encounter Goals Goal [...] documented as of this encounter Care Teams Appeals Assistant Relationship Specialty Start Date End Date Zeinab Sykes MD [address] [place] [address] PCP - General Internal Medicine 01/02/24 Tomeka Martins Photovoltaic InstallerShorts Sifter 10/27/23 documented as of this encounter
--- OUTSIDE RECORDS SUMMARY | 2024-08-22 15:46 | XMS_ITS | Encounter Summary ---
Author Organization [email or web address] [facility] Address [address] [place] [address] 7 [place] [address] Care Team Providers Care Dust Puller Name Role Phone Evelyn Ledesma Primary Care Provider [phone] Oralia Aguila MD Primary Care Provider [phone] Zeinab Sykes MD Primary Care Provider + Reason for Visit * Reason Onset Date Comments Referral 02/03/2023 Renewal Encounter Details Date Type Department Care Team (Late st Contact Info) Description 02/03/2023 Telephone [facility] MEDICINE [address] [place] [address] Evelyn Ledesma FNP [address] [place] [address] Dept [place] [address] Referral (Renewal ) Social History Tobacco Use [...] Description 09/25/2024 9:45 AM EDT Office Visit [address] [address] 10/09/2024 11:45 AM EDT Office Visit [address] [address] Zeinab Sykes MD 230 [place], [place] [phone] documented as of this encounter Goals Goal Patient Goal Type Associated Problems Recent Progress Patient-Stated? Author Patient will manage their medication General On track( 023 11:18 AM EDT) Citlali Ocampo, PharmD Note: Began medboxes. Goal achieved 11/19/22. Patient graduated from [facility]. documented as of this encounter Visit Diagnoses Not on filedocumented in this encounter Care Teams Dust Puller Relationship Specialty Start Date End Date Evelyn Ledesma FNP PCP - General Family Medicine 03/15/22 04/25/23 Oralia Aguila MD [address] [place] [address] [phone] PCP - General Family Medicine 04/26/23 01/01/24 Zeinab Sykes MD [address] [place] [address] [phone] PCP - General Internal Medicine 01/02/24 Tomeka Martins Family And Marriage CounsellorBillposting Supervisor 10/27/23 documented as of this encounter
[2024-08-23 09:02] LABS: Adenovirus PCR Not Detected (Not Detect.); Bordetella parapertussis PCR Not Detected (Not Detect.); Bordetella pertussis PCR Not Detected (Not Detect.); Chlamydia pneumoniae PCR Not Detected (Not Detect.); Coronavirus 229E PCR Not Detected (Not Detect.); Coronavirus HKU1 PCR Not Detected (Not Detect.); Coronavirus NL63 PCR Not Detected (Not Detect.); Coronavirus OC43 PCR Detected (Not Detect.); Human metapneumovirus PCR Not Detected (Not Detect.); Influenza A PCR Not Detected (Not Detect.); Influenza B PCR Not Detected (Not Detect.); Mycoplasma pneumoniae PCR Not Detected (Not Detect.); Parainfluenza 1 PCR Not Detected (Not Detect.); Parainfluenza 2 PCR Not Detected (Not Detect.); Parainfluenza 3 PCR Not Detected (Not Detect.); Parainfluenza 4 PCR Not Detected (Not Detect.); RSV PCR Not Detected (Not Detect.); Rhino/Enterovirus PCR Not Detected (Not Detect.); SARS-CoV-2 PCR Not Detected (Not Detect.)
== END 2024-08-21 00:01 | disposition home or self-care (01) ==
LOC: HO.HHCLNP
PROVIDERS: Visit Provider Family Medicine
DX: R05.2 Subacute cough (principal)
CPT/HCPCS: 87633

== ENCOUNTER → 2024-08-22 15:53 | Outpatient (BNV) | payer MEDICAID, SELFPAY | PROVIDERS: Visit Provider Radiology Diagnostic Radiology | DX: R05.2 Subacute cough (principal) | CPT/HCPCS: 71046 ==

== ENCOUNTER 2024-08-31 14:01 | Outpatient (AMB) | payer MEDICAID, SELFPAY ==
--- OUTSIDE RECORDS SUMMARY | 2024-08-31 14:04 | XMS_ITS | Encounter Summary ---
Author Organization [employer] Address [address] [facility] 7t [place] [address] Care Team Providers Care Target Network Analyst Name Role Phone Zeinab Sykes MD Primary Care Provider + Reason for Visit * Reason Comments Med Refill Encounter Details Date Type Department Care Team ([facility] st Contact Info) Description 05/04/2024 Refill [facility] MEDICINE [address] [place], [place] [phone] Zeinab Sykes MD [address] [place] [address] Other intervertebral disc displacement, lumbar region Social [...] 09/25/2024 9:45 AM EDT Office Visit [facility] MEDICINE [address] [place] [address] 10/09/2024 11:45 AM EDT Office Visit [facility] MEDICINE [address] [place] [address] Zeinab Sykes MD [address] [place] [address] documented as of this encounter Goals Goal Patient Goal Type Associated Problems Recent Progress Patient-Stated? Author Patient will manage their medication General On track( 023 11:18 AM EDT) No Citlali Armando, PharmD Note: Began medboxes. Goal achieved 11/19/22. Patient graduated from [facility]. documented as of this encounter Visit Diagnoses Diagnosis Other intervertebral disc displacement, lumbar region documented in this encounter Additional Health Concerns Assessment Noted Time PHQ-9 Depression Total Score: 18 024 1:46 PM EDT documented as of this encounter Care Teams Target Network Analyst Relationship Specialty Start Date End Date Zeinab Sykes MD [address] [place] [address] PCP - General Internal Medicine 01/02/24 Tomeka Martins Gin ClerkMirror Maker 10/27/23 documented as of this encounter
--- OUTSIDE RECORDS SUMMARY | 2024-08-31 14:04 | XMS_ITS | Continuity of Care Document ---
Author Organization [facility] Address [address] [place] [address] Phone Care Team Providers Care Railroad Baggage Porter Name Role Phone Waldo MADDOX FACS RVT Shiraz CHERY Unavailable Unavailable Allergies, Adverse Reactions, Alerts Substance Reaction Status Criticality latex Active No Information Medications Medication Instructions Dosage Effective Dates (start - stop) Status Comments lidocaine-prilocaine 2.5 %-2.5 % topical cream apply 2 hours before procedures for Pain - Active Procedures Procedure Date Office/Outpt E&M Established 15 Mins Oct Duplex Scan-extrem Veins; [facility]/ 23 Endovenous Laser, 1st Vein [...] E&M Established 15 Mins [facility], [address] [place] [address] Dr [address]Pradeep [place], [id number], [place] tel:[phone] [facility] Venous insufficiency (chronic) (peripheral) 3 Waldo MADDOX FACS RVT MIRI Rapp. [address] [place] [address], [place], [address], [place]. tel:[phone] Referring Provider: Rebekah Guevara, [address] [place], [address]. tel:[phone] [facility], [address] [place] [address] [address]Pradeep [place], [id number], [place] tel:[phone] [facility] [place] [facility] [place] En[facility]tr for f/u exam aft trtmt for cond oth than malig neoplmVenous insufficiency (chronic) (peripheral) 3 Waldo MADDOX FACS RVT MIRI Rapp. [address] [place] [address], [place], [address], [place]. tel:[phone] Referring Provider: Rebekah Guevara, [address] [place] [address], [address]. tel:[phone] [facility], [address] [place] [address] [address]Pradeep [place], [id number], [place] tel:[phone] [facility] [place] [facility] [place] Venous insufficiency (chronic) (peripheral) 3 Waldo MADDOX FACS RVT MIRI Rapp. [address] [place] [address], [place], [address], [place]. tel:[phone] Referring Provider: Rebekah Guevara, [address] [place] [address], [address]. tel:[phone] [facility], [address] [place] [address] [address]Pradeep [place], [id number], [place] tel:[phone] [facility] [place] [facility] [place] Venous insufficiency (chronic) (peripheral) 3 Waldo MADDOX FACS RVT MIRI Rapp. [address] [place] [address], [place] [address], [place], [address], [place]. tel:[phone] Referring Provider: Rebekah Guevara, [address] [place], [address]. tel:[phone] [facility], [address] [place] [address] [address]Pradeep [place], [id number], [place] tel:[phone] [facility] [place] [facility] [place] No Information 3 Waldo Rapp. [address] [facility], Suite [facility], [place], [address], [place]. tel:[phone] Referring Provider: Rebekah Guevara, [address] [place] [address], [address]. tel:[phone] [facility], [address] [place] [address] [address]Pradeep [place], [id number], [place] tel:[phone] [facility] [place] [facility] [place] Encntr for f/u exam aft trtmt for cond oth than malig neoplmVenous insufficiency (chronic) (peripheral) 3 Waldo Rapp. [address] [place] [address], [place] [address], [place], [address], [place]. tel:[phone] Referring Provider: Rebekah Guevara, [address] [place] [address], [address]. 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 [address] [place] [address], [facility] [address], [place], [address], [place]. tel:[phone] Referring Provider: Rebekah Guevara, [address] [place], [address]. tel:[phone] [facility], [address] [place] [address] [address]Pradeep [place], [id number], [place] tel:[phone] [facility] [place] Venous insufficiency (chronic) (peripheral) 3 Waldo Rapp. [facility] [facility], [address], [place], [address], [place]. [phone] Referring Provider: Rebekah Guevara, [address] [place], [address]. tel:[phone] Family History Family Member Type Diagnosis Age At Onset No Information Payers Payer name Insurance type Covered alliance party ID Authorlitzy funes(s) Medical Assistance DANIEL [id number] Social History Type Description Quantity Date Captured [...]
--- OUTSIDE RECORDS SUMMARY | 2024-08-31 14:04 | XMS_ITS | Encounter Summary ---
Author Organization [facility], Address [address] [place] [address] Phone Care Team Providers Care Knitting Machine Mechanic Name Role Phone Evelyn Rodriguez Primary Care Provider Silvana vailable Encounter Details Date Type Department Care Team (Late st Contact Info) Description 02/18/2023 Documentation Only [facility], [address] [place] [address] Xiao Sheppard [address] [place] [address] Social History Tobacco Use Types [...] on filedocumented in this encounter Care Teams Knitting Machine Mechanic Relationship Specialty Start Date End Date Evelyn Rodriguez FNP PCP - General 02/18/23 documented as of this encounter
--- OUTSIDE RECORDS SUMMARY | 2024-08-31 14:04 | XMS_ITS | Encounter Summary ---
Author Organization [facility] Address [address] [place] [address] [place] [address] Care Team Providers Care Campus Director Name Role Phone Evelyn Ledesma Primary Care Provider [phone] Oralia Aguila MD Primary Care Provider [phone] Zeinab Sykes MD Primary Care Provider + Reason for Visit * Reason Comments Med Refill Encounter Details Date Type Department Care Team (Late st Contact Info) Description 02/05/2023 Refill [facility] [address] [place] [address] Evelyn Ledesma FNP [address] [place] [address] Dept [place] [address] Neuropathy Social History Tobacco Use Types Packs/Day [...] Description 09/25/2024 9:45 AM EDT Office Visit [facility] [address] [place] [address] 10/09/2024 11:45 AM EDT Office Visit [facility] [address] [place] [address] Zeinab Sykes MD [address] [place] [address] documented as of this encounter Goals Goal Patient Goal Type Associated Problems Recent Progress Patient-Stated? Author Patient will manage their medication General On track( 023 11:18 AM EDT) Citlali Ocampo, Anoop Note: Began medboxes. Goal achieved 11/19/22. Patient graduated from [employer]. documented as of this encounter Visit Diagnoses Diagnosis Neuropathy Mononeuritis of unspecified site documented in this encounter Care Teams Campus Director Relationship Specialty Start Date End Date Evelyn Ledesma FNP PCP - General Family Medicine 03/15/22 04/25/23 Oralia Aguila MD [address] [place] [address] PCP - General Family Medicine 04/26/23 01/01/24 Zeinab Sykes MD [address] [place] [address] PCP - General Internal Medicine 01/02/24 Tomeka Martins [facility] SpecialistCork Painter And Grader 10/27/23 documented as of this encounter
--- OUTSIDE RECORDS SUMMARY | 2024-08-31 14:04 | XMS_ITS | Clinical Summary ---
Author Organization [facility] Address [address] [place] [address] [address] [place] [address] Care Team Providers Care Collar Trimmer Name Role Phone Zeinab Sykes MD [...] mg by mouth in the morning. Active oxymetazoline (Afrin Nasal [place]) 0.05 % nasal spray Administer 2 sprays [...] complication, without long-term current use of insulin ([facility]) 1 each by Other route Once per day. USE TO TEST BLOOD SUGAR ONCE A DAY 100 each 3 024 Active glucose blood (FREESTYLE LITE) test stripIndications:T ype 2 diabetes mellitus without complication, without long-term current use of insulin ([facility]) USE TO TEST BLOOD SUGAR ONCE A DAY 100 each 3 024 Active gabapentin (Neurontin) 300 MG capsuleIndications :Neuropathy TAKE 1 CAPSULE BY MOUTH THREE TIMES DAILY IN THE MORNING, EVENING, AND BEDTIME 90 capsule 3 024 Active ergocalciferol (Vitamin D2) 1.25 MG (61838 UT) capsule TAKE 1 CAPSULE BY MOUTH ONCE WEEKLY ON Tuesday 12 capsule 025 Active oxyCODONE-acetamin ophen (Percocet) 5-325 MG tabletIndications: Other intervertebral disc displacement, lumbar region Take 1 tablet by mouth every 6 (six) hours if needed for severe pain for up to 28 days. 112 tablet 025 Active acetaminophen (Tylenol) 325 MG tabletIndications: Acute nasopharyngitis Take 2 tablets (650 mg) by mouth every 6 (six) hours if needed for moderate pain or fever. 120 tablet 025 2024 Active sodium chloride ([place] Nasal [place]) 0.65 % nasal sprayIndications:A cute nasopharyngitis Administer 1 spray into each nostril if needed for congestion. 30 mL 1 025 2025 Active Alcohol Swabs (Alcohol Prep) padsIndications:Ty pe 2 diabetes mellitus without complication, without long-term current use of insulin ([facility]) USE TWICE DAILY 100 each 5 Active [...] HOURS DIRECTED DIRECTED 30 patch 3 Active chlorthalidone (Hygroton) 25 MG tablet TAKE 1/2 TABLET BY MOUTH EVERY MORNING 45 tablet 3 025 Active acetaminophen (Tylenol) 325 MG tablet TAKE 2 TABLETS BY MOUTH EVERY 6 HOURS NEEDED FOR PAIN FOR UP TO 10 DAYS 023 2024 Discontinued(R eorder (will not trigger notification to Pharmacy)) chlorthalidone (Hygroton) 25 MG tablet TAKE 1/2 TABLET BY MOUTH EVERY MORNING 45 tablet 3 024 2024 Discontinued Alcohol Swabs (Alcohol Prep) padsIndications:Ty pe 2 diabetes mellitus without complication, without long-term current use of insulin ([facility]) USE TWICE DAILY 100 each 5 024 2024 Discontinued(R eorder (will not trigger notification to Pharmacy)) albuterol (2.5 MG/3ML) 0.083% nebulizer solution Take 3 mL (2.5 mg) by nebulization every 4 (four) hours if needed for wheezing or shortness of breath (Maximum 4 treatments per day). 75 mL 2 024 2024 Discontinued(R eorder (will not trigger notification to Pharmacy)) lidocaine (Lidoderm) 5 % patchIndications:O ther intervertebral [...] crush or chew. 20 capsule 025 2024 azithromycin (Zithromax) 250 MG tabletIndications: Subacute cough Take 2 tablets (500 mg) by mouth Once per day for 1 day, THEN 1 tablet (250 mg) Once per day for 4 days. 6 tablet 025 2024 chlorthalidone (Hygroton) 25 MG tablet TAKE 1/2 TABLET BY MOUTH EVERY MORNING 45 tablet 3 025 2024 Discontinued(R eorder (will not trigger notification to Pharmacy)) Hospital, Clinic, or Other Facility Administered Medication [...] bx, I will fu or refer to [facility] after US reports. Left foot pain 03/29/2024 [...] L4-5 and right L5-S1 decompressive laminectomy at [facility] - surgeon Dr. Melia Pedroza DME request for 10-in-1 pillow on 07/31/24 Assessment & Plan (05/29/2024 5:18 PM EST): Known DDD L-spine with radiculopathy sxs 05/26/2018 - Lumbar decompression surgery: L4-5 and right L5-S1 decompressive laminectomy at [facility] - surgeon Dr. Melia Pedroza Assessment [...] disc, s/p vagus nerve stimulator, neuropathy Last PIG HANDLER Agreement: 03/13/24 Assessment & Plan (07/31/2024 4:57 [...] of scalp 01/02/2024 Overview (01/02/2024): Seen at [facility] dermatology Assessment & Plan (03/20/2024 3:50 PM EDT): Generally well controlled, encouraged to continue fu with [facility] derm Refill for fluocinolone today. Housing [...] pseudophedrine short term. 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 Will refer her back to wax [facility] knock out worker. RUQ pain 10/05/2023 Assessment & Plan (11/01/2023 3:28 PM EDT): [facility]. [facility] but [...] ballon inside the gastric body placed in [place] for bariatric procedure about 20 cm in [...] lumbar r egion 05/17/2017 Overview (09/17/2022): On PIG HANDLER contract. discussed tapering percocet options, not interested.. Referred to HIM forms dept for handicap plackards documents. Referred to [facility] for polypharmacy education. Continue medications as prescribed. Discussed Narcan. Encouraged nonpharmacologic pain relief strategies. will f/up next visit Assessment & Plan (03/20/2024 3:48 PM EDT): On PIG HANDLER contract. discussed tapering percocet options, not interested, it apparently offers partial enough improvement of sxs. Patient is aware that shelter use of opiates can cause hyperalgesia, liver toxicity, CAREER DEVELOPMENT SPECIALIST toxicity, increase anxiety, among others. Will continue to work with chronic pain management [facility] clinic. Continue medications as prescribed. Discussed [...] elevated BP readings.. Referred to [facility] for polypharmacy education. Continue medications [...] to enails with type 2 diabetes mellitus ([facility]) 05/17/2017 03/29/2024 Encounters Date Type Department Care Team Description 08/31/[address] [facility] [address] [place] [address] Zeinab Sykes MD Other intervertebral disc displacement, lumbar region 08/30/[address] [facility] [address] [place] [address] Zeinab Sykes MD 08/29/[address] [facility] [address] [place], [place] [phone] Oralia Aguila MD 08/27/[address] [facility] [address] [place] [address] Zeinab Sykes MD Results 08/21/2024 5:20 PM EST Office Visit [facility] [address] [place] [address] Yonathan Snider MD Subacute cough 08/21/2024 Travel 08/20/[address] [facility] [address] [place] [address] Zeinab Sykes MD Type 2 diabetes mellitus without complication, without long-term current use of insulin ([facility]); Other intervertebral disc displacement, lumbar region 08/15/2024 10:15 AM EST Office Visit [facility] [address] [place] [phone] Zeinab Sykes MD Type 2 diabetes mellitus without complication, without long-term current use of insulin ([facility]) (Primary Dx); Essential hypertension; Postmenopause bleeding; Recurrent major depressive disorder, in partial remission ([facility]); Moderate persistent asthma with acute exacerbation; [place] (obstructive sleep apnea); Housing insecurity; Nasal congestion 08/15/2024 Travel 08/14/2024 Travel 08/10/[address] [address] Terra Mackey MA Chart prep 08/08/2024 5:20 PM EST Office Visit [facility] [address] [place] [phone] Lia Martinez NP Acute nasopharyngitis (Primary Dx); Flu-like symptoms 08/08/2024 3:00 PM EST Office Visit [facility] [address] [place] [address] Watkins-Maynard , Gay, DDS Fracture of removable partial denture (Primary Dx) 08/03/2024 3:30 PM EST Office Visit [facility] [address] [place] [address] Watkins-Maynard , Gay, DDS Fracture of removable partial denture (Primary Dx) 08/03/[address] [address] Zeinab Sykes MD Other intervertebral disc displacement, lumbar region 08/03/2024 Patient Outreach [address] [address] Zeinab Sykes MD Pre-visit Planning ((Unable to reach for PVP screening, LVM)) 08/01/[address] [facility] [address] [place], [place] [phone] Zeinab Sykes MD Durable Medical Equipment (10 In 1 pillow/) 07/31/2024 9:45 AM EST Office Visit [address] [phone] Alma Jha, BAIT DIGGER Lumbar back pain with radiculopathy affecting left lower extremity (Primary Dx); Long-term current use of opiate analgesic 07/31/2024 Telephone [facility] [address] [place] [address] Alma Jha FNP PIG HANDLER: Tier System 07/31/[address] [facility] [address] [place] [address] Scarlett Gibbs RN BPI Scoring 07/31/2024 Travel 07/30/[address] [facility] [address] [place] [address] Zeinab Sykes MD 07/16/[address] [facility] [address] [place] [address] Zeinab Sykes MD Med Refill 07/04/[address] [facility] [address] [place] [phone] Zeinab Sykes MD Other intervertebral disc displacement, lumbar region 06/29/[address] [facility] [address] [place] [address] Zeinab Sykes MD Neuropathy 06/19/[address] [facility] [address] [place] [address] Zeinab Sykes MD Type 2 diabetes mellitus without complication, without long-term current use of insulin ([facility]) 06/04/[address] [address] Zeinab Sykes MD Med Refill 06/04/[address] [facility] [address] [place] [address] Zeinab Sykes MD Other intervertebral disc displacement, lumbar region from Last 3 Months Immunizations Name Administration [...] AM EDT Office Visit [facility] [address] [place] [address] [phone] 10/09/2024 11:45 AM EDT Office Visit [facility] [address] [place] [address] [phone] Zeinab Sykes MD [address] [place] [address] [phone] Health Maintenance Due Date Last Done Comments [...] Goal achieved 11/19/22. Patient graduated from [facility]. Procedures Procedure Name Priority Date/Time Associated Diagnosis Comments XR CHEST 2 VIEWS Routine 08/22/2024 3:53 PM EST Subacute cough POCT INFLUENZA B (ID NOW RAPID MOLECULAR) Routine 08/21/2024 5:37 PM EST Subacute cough POCT INFLUENZA A (ID NOW RAPID MOLECULAR) Routine 08/21/2024 5:37 PM EST Subacute cough POCT RAPID COVID ANTIGEN Routine 08/21/2024 5:10 PM EST Subacute cough RESPIRATORY VIRAL PANEL PCR Routine 08/21/2024 2:25 PM EST Subacute cough POCT INFLUENZA A (ID NOW RAPID MOLECULAR) Routine 08/15/2024 11:29 AM EST Nasal congestion POCT RAPID COVID ANTIGEN Routine 08/15/2024 11:29 AM EST Nasal congestion POCT INFLUENZA B (ID NOW RAPID MOLECULAR) Routine 08/15/2024 11:28 AM EST Nasal congestion POCT GLUCOSE Routine 08/15/2024 10:38 AM EST Type 2 diabetes mellitus without complication, without long-term current use of insulin ([facility]) POCT RAPID COVID ANTIGEN Routine 08/08/2024 5:54 PM EST Flu-like symptoms POCT INFLUENZA A (ID NOW RAPID MOLECULAR) Routine 08/08/2024 5:54 PM EST Flu-like symptoms POCT INFLUENZA B (ID NOW RAPID MOLECULAR) Routine 08/08/2024 5:54 PM EST Flu-like symptoms POCT RSV (ID NOW RAPID ANTIGEN) Routine 08/08/2024 5:54 PM EST Flu-like symptoms CASE PRESENTATION, DETAILED AND EXTENSIVE TREATMENT PLANNING Routine 08/08/2024 3:00 PM EST Fracture of removable partial denture REPAIR RESIN PARTIAL DENTURE BASE, LORENA Routine 08/08/2024 3:00 PM EST Fracture of removable partial denture CASE PRESENTATION, DETAILED AND EXTENSIVE TREATMENT PLANNING Routine 08/03/2024 [...] 06/01/2024 2:43 PM EST Postmenopause bleeding POCT GLYCATED HEMOGLOBIN, TOTAL Routine 03/29/2024 10:47 [...] Recently Relevant to Health Maintenance Results * XR Chest 2 Views (08/22/2024 3:53 PM EST) Anatomical Region Laterality Modality Chest Radiographic Celia ging 08/22/2024 3:53 PM EST Narrative 08/22/2024 4:30 PM EST ?[facility] ?[address] ?[place] [address] ?XRay Report ? Signed ? Patient: Rhonda Fernández ?MR# ?? : [id number] ? : 1960 ?Acct:[id number] ? Age/Sex: 63 / F ?ADM Date: 08/22/24 ? Loc: HO.HHCX ? Attending Dr: Yonathan Snider MD ? Ordering Physician: Yonathan Snider MD ?? Date of Service: 08/22/24 ?? Procedure(s): XR chest 2V ?? Accession Number(s): [id number] ? cc: Yonathan Snider MD ? EXAMINATION: ?? XR CHEST ? CLINICAL INFORMATION: ?? 3-week duration of cough ? COMPARISON: ?? None available. ? TECHNIQUE: ?? 2 views of the chest were obtained. ? FINDINGS: ?? The lungs are well-expanded and clear. Heart size and pulmonary ?? vascularity is normal. There is moderate spondylosis dorsal spine. No ?? aggressive lytic or sclerotic process seen ? XR/XR chest 2V ?? IMPRESSION: ?? No acute cardiopulmonary process seen. There is moderate spondylosis ?? dorsal spine. No aggressive lytic or sclerotic process seen. ? Electronically signed by: ??Sanjeev Mayifeld MD ??08/22/2024 04:27 PM EST RP ? Dictated By: ?Sanjeev Mayfield MD ? Signed By: ?<Electronically signed by Sanjeev Mayfield MD in OV> ?08/22/24 1627 ? DD/ 1553 ? TD/TT: 08/22/24 1600 ? Storekeeper Helper: MSM ? Procedure Note Donzacter, Image - 08/22/2024 [facility] [address] [place] [address] XRay Report Signed Patient: Karla Fernández# : [id number] : 1960Acct:[id number] Age/Sex: 63 / FADM Date: 08/22/24 Loc: HO.HHCX Attending Dr: Yonathan Snider MD Ordering Physician: Yonathan Snider MD Date of Service: 08/22/24 Procedure(s): XR chest 2V Accession Number(s): [id number] cc: Yonathan Snider MD EXAMINATION: XR CHEST CLINICAL INFORMATION: 3-week duration of cough COMPARISON: None available. TECHNIQUE: 2 views of the chest were obtained. FINDINGS: The lungs are well-expanded and clear. Heart size and pulmonary vascularity is normal. There is moderate spondylosis dorsal spine. No aggressive lytic or sclerotic process seen XR/XR chest 2V IMPRESSION: No acute cardiopulmonary process seen. There is moderate spondylosis dorsal spine. No aggressive lytic or sclerotic process seen. Electronically signed by: Sanjeev Mayfield MD 08/22/2024 04:27 PM EST Dictated By: Sanjeev Mayfield MD Signed By: <Electronically signed by Sanjeev Mayfield MD in OV> 08/22/24 1627 DD/ 1553 TD/TT: 08/22/24 1600 Storekeeper Helper: MSM Yonathan Snider MD IMG XR PROCEDURES Edited Result - Final * Influenza B (ID NOW Rapid Molecular) (08/21/2024 5:37 PM EST) Only the most recent of3 resultswithin the time period is included. [facility] Influenza B Negative Negative, Indeterminate [facility] Swab 08/21/2024 5:37 PM EST Yonathan Snider MD POINT OF CARE TEST ENTER/EDIT OR DERABLES Final Result Performing Organization Address [facility]/ZIP Co de Phone Number [facility] [address] [place] [phone] * Influenza A (ID NOW Rapid Molecular) (08/21/2024 5:37 PM EST) Only the most recent of3 resultswithin the time period is included. [facility] Influenza A Negative Negative, Indeterminate [facility] Swab 08/21/2024 5:37 PM EST us Yonathan Snider MD POINT OF CARE TEST ENTER/EDIT OR DERABLES Final Result Performing Organization Address [facility] de Phone Number [facility] [address] [place] [phone] * POCT Rapid COVID Ag (08/21/2024 5:10 PM EST) Only the most recent of3 resultswithin the time period is included. [facility] Rapid COVID Ag Negative Swab 08/21/2024 5:10 PM EST Yonathan Snider MD POINT OF CARE TEST ENTER/EDIT OR DERABLES Final Result * (ABNORMAL) Respiratory Viral Panel PCR (08/21/2024 2:25 PM EST) [facility] Adenovirus PCR Not Detected Not Detect. [facility] Bordetella pertussis PCR Not Detected Not Detect. [facility] Comment:Interpret results wi th caution. If B. pertussis isspecifically suspected, additional testing using analternate method is recommended. Bordetella parapertussis PCR Not Detected Not Detect. [facility] Chlamydia pneumoniae PCR Not Detected Not Detect. [facility] Coronavirus 229E PCR Not Detected Not Detect. [facility] Coronavirus HKU1 PCR Not Detected Not Detect. [facility] Coronavirus NL63 PCR Not Detected Not Detect. [facility] Coronavirus OC43 PCR Detected(A) Not Detect. [facility] SARS-CoV-2 PCR Not Detected Not Detect. [facility] Comment:SARS-CoV-2 not detec jocelyn by real-time RT-PCR.Note: If clinical suspicion for Sars-CoV-2 is high, continueto maintain precautions and consider repeat testing.Test results should be interpreted in the context ofclinical findings and other laboratory data.Rare polymorphisms exist that could lead to false-negativeor false-positive results. If results do not match theclinical findings, additional testing should be considered.Results reported to [facility].This test has been authorized by the FDA under the EmergencyUse Authorization (EUA) for use by authorized laboratories. Influenza A PCR Not Detected Not Detect. [facility] Influenza B PCR Not Detected Not Detect. [facility] Human metapneumovirus PCR Not Detected Not Detect. [facility] Rhino/Enterovirus PCR Not Detected Not Detect. [facility] Mycoplasma pneumoniae PCR Not Detected Not Detect. [facility] Parainfluenza 1 PCR Not Detected Not Detect. [facility] Parainfluenza 2 PCR Not Detected Not Detect. [facility] Parainfluenza 3 PCR Not Detected Not Detect. [facility] Parainfluenza 4 PCR Not Detected Not Detect. [facility] RSV PCR Not Detected Not Detect. [facility] Resp Panel NA Note See Note [facility] Comment:All results must be correlated with clinical findings.Negative results should not be used as the sole basis fordiagnosis, treatment, or other management decisions.A negative result does not exclude the possibility of viralor bacterial infection. Negative results may occur from thepresence of sequence variants in the region targeted by theassay, the presence of inhibitors, an infection caused by anorganism not detected by the panel, or lower respiratorytract infections that are not detected by a nasopharyngealswab specimen. Test results may also be affected byconcurrent antiviral/antibacterial therapy or levels oforganism in the specimen that are below the limit ofdetection for this test.This assay is performed by Multiplexed PCR, utilizing BettingXpert Film Array. 08/21/2024 2:25 PM EST 08/22/2024 2:39 PM EST Yonathan Snider MD LAB BLOOD ORDERABLES Final Resul t Performing Organization Address City/[facility] Co de Phone Number [facility] [address] [place] [phone] * (ABNORMAL) POCT Glucose (08/15/2024 10:38 AM EST) [facility] Glucose Blood, POC 202(A) 60 - 200 mg/dL QC Media Lot # [id number] Lot# Expiration Date Blood Capillary blood specimen / Unknown 08/15/2024 10:38 AM EST Zeinab Sykes MD POINT OF CARE TEST ENTER /EDIT ORDERABLES Final Result * POCT Rapid RSV JI ID NOW (08/08/2024 5:54 PM EST) [facility] RSV Rapid Ag POC Negative Negative [facility] Swab 08/08/2024 5:54 PM EST Lia Martinez NP POINT OF CARE TEST ENTER/EDIT O RDERABLES Final Result Performing Organization Address [facility] Co de Phone Number [facility] [address] [place] [phone] * POCT DIDIER-14 Urine Drug Screen (07/31/2024 1:45 PM EST) Pathologist [facility], Urine Positive Oxycodone Screen, Urine Positive Urine Urine specimen obtained by clean catch procedure / Unknown 07/31/2024 1:45 PM EST Scarlett Onofre, PAULINA - 07/31/2024 1:45 PM EST UTOX cup Lot#[id number] Exp. 04/11/26 Internal Pass Control Zeinab Sykes MD POINT OF CARE TEST ENTER /EDIT ORDERABLES Final Result * Creatinine, Serum (07/03/2024 12:03 PM EST) Creatinine, Serum 0.99 0.5 - 1.4 mg/dL [facility] Estimated Glomerular Filt Rate 56 [facility] Comment:Chronic Kidney Disea se: Estimated GFR < 60 mL/min/[id number] Kidney Disease: Estimated GFR < 15 mL/min/1.73m2 07/03/2024 12:0 3 PM EST 07/03/2024 12:03 PM EST Generic External Data Provider LAB BLOOD ORDERAB LES Final Result Performing Organization Address City/[facility]/ZIP Co de Phone Number [facility] [address] [place] [phone] * (ABNORMAL) BUN (Blood Urea Nitrogen) (07/03/2024 12:03 PM EST) Urea Nitrogen (BUN) 18(H) 9 - 16 mg/dL [facility] 07/03/2024 12:0 3 PM EST 07/03/2024 12:03 PM EST Generic External Data Provider LAB BLOOD ORDERAB LES Final Result Performing Organization Address City/[facility]/ZIP Co de Phone Number [facility] [address] [place] [phone] * Hematoxylin and Eosin Stain (06/08/2024 10:22 AM EST) 06/08/2024 10:2 2 AM EST 06/08/2024 11:27 AM EST Narrative [facility] - 06/12/2024 11:41 AM EST ----- ------- Name: Rhonda Fernández ? Age/Sex: 63/F ? : 1960 Unit#: [id number] ?? Attend Dr: Nolberto Quigley MD ?Re06/08/24 ?Status: DEP SDC ? Location: HO.SSS ?Disch: ? ----- ------- SPEC : [id number] ? RECD: 06/08/24 ? STATUS: ??SOUT ? REQ NUM: [id number] ? DARWIN: 06/08/24-1022 ? SUBM DR: Nolberto Quigley MD ? ENTERED: ??06/08/24-1139 ?SP TYPE: Surgical ? OTHR DR: [facility] ? ORDERED: ??HE Stain/4, Gross Micro [...] ? Age/Sex: 63/F ? : 1960 Unit#: [id number] ?? Attend Dr: Nolberto Quigley MD ?Re06/08/24 ?Status: DEP SDC ? Location: HO.SSS ?Disch: ? ----- ------- SPEC : [id number] ? RECD: 06/08/24-1126 ? STATUS: ??SOUT ? REQ NUM: [id number] ? DARWIN: 06/08/24-1022 ? SUBM DR: Nolberto Quigley MD ? ENTERED: ??06/08/24-114 ?SP TYPE: Surgical ? OTHR DR: [facility] ? ORDERED: ??HE Stain/4, Gross Micro L4/2 ? Copies To: ?? [facility] ?? [address] ?? [place] [address] ? Nolberto Quigley MD ?? [facility] ?? [address] ?? [place] [address] ?? [phone] ----- ------- Signed (signature on file) Jimmy Trejo MD 06/12/24 1141 ? ----- ------- ? END OF REPORT ? us Generic External Data Provider LAB BLOOD ORDERAB LES Final Result Performing Organization Address City/[facility]/ZIP Co de Phone Number [facility] [address] [place] [address] [phone] * (ABNORMAL) Glucose, Whole Blood (06/08/2024 9:44 AM EST) [facility] Glucose, Whole Blood 119(H) 60 - 115 mg/dL [facility] Comment:METER #: [id number] 06/08/2024 9:44 AM EST 06/08/2024 9:49 AM EST Generic External Data Provider LAB BLOOD ORDERAB LES Final Result Performing Organization Address [facility]/ZIP Co de Phone Number [facility] [address] [place] [address] [phone] * Pap Smear (06/01/2024 2:43 PM EST) 06/01/2024 2:43 PM EST 06/04/2024 9:25 AM EST Narrative [facility] - 06/20/2024 7:51 AM EST ----- ------- Name: Rhonda Fernández ? Age/Sex: 63/F ? : 1960 Unit#: [id number] ?? Attend Dr: Aisha Mcclain CNM ?Re06/01/24 ?Status: DEP REF ? Location: HO.LNP ?Disch: ? ----- ------- SPEC : [id number] ?RECD: 06/04/24-924 ? STATUS: ??SOUT ? REQ NUM: [id number] ? DARWIN: 06/01/24-7693 ? SUBM DR: Aisha Mcclain CNM ? [...] Copies To: ?? Zeinab Sykes MD ?? [facility] ?? [address] [facility] ?? [place] [address] ?? [phone] ?? Aisha Mcclain CNM ?? [facility] ?? [address] [place] [address] [address] ?? [place] [address] ?? [phone] ----- ------- Signed (signature on file) INDERJIT Bloom (ASCP) 06/20/24 0751 ? ----- ------- ? END OF REPORT ? us Generic External Data Provider LAB CYTOLOGY JERED RABSOLANGE Final Result [facility] [address] [place] [phone] * (ABNORMAL) POCT HGB A1C (03/29/2024 10:47 AM EDT) Pathologist [facility] Hemoglobin A1C 6.3(A) 4.0 - 6.0 % QC Media Lot # [id number] Lot# Expiration Date [id number] Blood 03/29/2024 10:4 7 AM EDT Zeinab Sykes MD POINT OF CARE TEST ENTER /EDIT ORDERABLES Final Result * (ABNORMAL) Lipid Panel with Reflex to Direct LDL (01/06/2024 12:38 PM EDT) Triglycerides 91 <150 mg/dL [facility] Comment:Desirable Triglyceri de: less than 150 mg/dLBorderline High Triglyceride 150-199 mg/dLHigh Triglyceride: 200-499 mg/dLVery High Triglyceride: greater than or equal to 5OO mg/dL Cholesterol 211(H) <200 mg/dL [facility] Comment:Desirable Cholestero l: less than 200 mg/dLBorderline High Cholesterol: 200-239 mg/dLHigh Cholesterol: greater than 239 mg/dL LDL Cholesterol Calculated 132(H) <100 mg/dL [facility] Comment:Desirable LDL: less than 100 mg/dLNear Optimal/Above Optimal LDL: 110- 129 mg/dLBorderline High LDL: 130-159 mg/dLHigh LDL: 160-189 mg/dLVery High LDL: greater than or equal to 190 mg/dL HDL Cholesterol 61 >40 mg/dL [facility] Comment:Desirable HDL: great er than 40 mg/dL Note: This HDL assay may give artificially low results in patients with liver disease. Blood 01/06/2024 12:3 8 PM EDT 01/06/2024 4:21 PM EDT Zeinab Sykes MD LAB BLOOD ORDERABLES Fin al Result Performing Organization Address [facility] de Phone Number [facility] [address] [place] [phone] * Hepatitis Panel, General (01/06/2024 12:38 PM EDT) Pathologist [facility] Hepatitis A IgM Nonreactive Nonreactive [facility] Comment:IgM antibodies to GUERIN V not detected; does not exclude earlyacute or recovered HAV infection. ~Hepatitis B Surface Antibody REACTIVE Nonreactive [facility] Comment:REACTIVE: > 11.99 mI U/mL Hepatitis B Core Antibody Nonreactive Nonreactive [facility] Hepatitis C Antibody Nonreactive Nonreactive [facility] Comment:Antibodies to HCV no t detected; does not exclude early acuteHCV infection. Hepatitis B Surface Ag Negative Negative [facility] Blood 01/06/2024 12:3 8 PM EDT 01/06/2024 4:21 PM EDT Zeinab Sykes MD LAB BLOOD ORDERABLES Fin al Result Performing Organization Address [facility] Co de Phone Number [facility] [address] [place] [phone] * HIV-1/2 Antigen and Antibodies, Fourth Generation, with Reflexes (01/06/2024 12:38 PM EDT) Pathologist [facility] HIV AB/AG Nonreactive Nonreactive [facility] Comment:HIV-1 p24 Ag and/or HIV-1/HIV-2 Ab not detected.A test result that is nonreactive does not exclude thepossibility of exposure to or infection with HIV-1 and/orHIV-2. Nonreactive results in this assay for individualswith prior exposure to HIV-1 and/or HIV-2 may be due toantigen and antibody levels that are below the limit ofdetection of this assay.The [employer] HIV Ag/Ab Combo assay result andsupplemental assay results should be interpreted inconjunction with the patient's clinical presentation,history and other laboratory results. If the results areinconsistent with clinical evidence, additional testing issuggested to confirm the result. Blood Venous blood specimen / Unknown 01/06/2024 12:38 PM EDT 01/06/2024 4:21 PM EDT us Zeinab Sykes MD LAB BLOOD ORDERABLES Fin al Result [facility] [address] [place] [phone] * Mammography Report 1 (03/15/2022 5:00 PM EDT) Anatomical Region Laterality Modality Breast Bilateral Mammography 03/15/2022 5:00 PM EDT Narrative 03/16/2022 8:33 AM EDT Refer to the Notes tab for result details [facility] Procedure: Mammography Report 1 Procedure Note Parag Torres MD - 10/10/2022 Refer to the Notes tab for result details [facility] Procedure: Mammography Report 1 us Evelyn Ledesma BAIT DIGGER IMG BI PROCEDURES Final Re sult * ALBUMIN, RANDOM URINE W/CREATININE (03/08/2022 3:04 PM EDT) Pathologist [facility] Microalbumin Urine 1.2 See Note: mg/dL [facility] Comment: Reference Range: ?? Reference [...] Creatinine, Urine 244 20 - 275 mg/dL [facility] 03/08/2022 3:04 PM EDT Rebekah Guevara SLUBBER TENDER LAB URINE ORDERABLES Final Res ult Performing Organization Address [facility] Phone Number [facility] [address] * HPV mRNA E6/E7 (07/07/2020 12:00 AM EST) HPV nRNA E6/E7 Not Detected Not Detected [facility] Comment: This test was performed using the APTIMA HPV Assay ([employer] This assay detects E6/E7 viral messenger RNA (mRNA) from 14 high-risk HPV types (16,18,31,33,35,39,45,51,52,56,58,59,66,68). ?? The analytical performance characteristics of this assay have been determined by [employer]. The modifications have not been cleared or approved by the FDA. This assay has been validated pursuant to the CLIA regulations and is used for clinical purposes. 07/07/2020 Historical Provider LAB BLOOD ORDERABLES Sera l Result Performing Organization Address [facility] de Phone Number [facility] [address] from Last 3 Months or Most Recently Relevant to Health Maintenance Insurance [facility] C3 [facility] MEDICAID STAND ADULT Care Teams Collar Trimmer Relationship Specialty Start Date End Date Zeinab Sykes MD [address] [place] [phone] PCP - General Internal Medicine 01/02/24 Tomeka Martins Laboratory InspectorNaphthol Soaping Machine Operator 10/27/23
--- OUTSIDE RECORDS SUMMARY | 2024-08-31 14:04 | XMS_ITS | Encounter Summary ---
Author Organization [employer] Address [address] [facility] 7t [place] [address] Care Team Providers Care Package Winder Name Role Phone Zeinab Sykes MD Primary [...] EDT Office Visit [facility] [address] [place] [address] [phone] 10/09/2024 11:45 AM EDT Office Visit [facility] [address] [place] [address] [phone] Zeinab Sykes MD [address] [place] [phone] documented as of this encounter Goals Goal Patient Goal Type Associated Problems Recent Progress Patient-Stated? Author Patient will manage their medication General On track( 023 11:18 AM EDT) Citlali Ocampo PharmD Note: Began medboxes. Goal achieved 11/19/22. Patient graduated from [facility]. documented as of this encounter Visit Diagnoses Not on filedocumented in this encounter Additional Health Concerns Assessment Noted Time PHQ-9 Depression Total Score: 22 025 10:31 AM EST documented as of this encounter Care Teams Package Winder Relationship Specialty Start Date End Date Zeinab Sykes MD [address] [place] [address] PCP - General Internal Medicine 01/02/24 Tomeka Martins Fisher Trawl NetPlastics Process Hand 10/27/23 documented as of this encounter
--- OUTSIDE RECORDS SUMMARY | 2024-08-31 14:04 | XMS_ITS | Encounter Summary ---
Author Organization [employer] [facility] Address [address] [place] [address] 7t [place] [address] Care Team Providers Care Serger Name Role Phone Evelyn Ledesma Primary Care Provider [phone] Oralia Aguila MD Primary Care Provider [phone] Zeinab Sykes MD Primary Care Provider + Reason for Visit * Reason Onset Date Comments Appointment Request 12/20/2022 Encounter Details Date Type Department Care Team (Late st Contact Info) Description 12/20/2022 Telephone [facility] [address] [place] [phone] Evelyn Ledesma FNP [address] [place] [address] Dept [place] [address] Appointment Request Social History Tobacco Use Types [...] an earlier day) Please contact pt at [phone] documented in this encounter Plan of Treatment Upcoming Encounters Date Type Department Care Team (Late st Contact Info) Description 09/25/2024 9:45 AM EDT Office Visit [facility] [address] [place] [phone] 10/09/2024 11:45 AM EDT Office Visit [facility] [address] [place] [phone] Zeinab Sykes MD [address] [place] [address] documented as of this encounter Goals Goal Patient Goal Type Associated Problems Recent Progress Patient-Stated? Author Patient will manage their medication General On track( 023 11:18 AM EDT) Citlali Ocampo PharmD Note: Began medboxes. Goal achieved 11/19/22. Patient graduated from [facility]. documented as of this encounter Visit Diagnoses Not on filedocumented in this encounter Care Teams Serger Relationship Specialty Start Date End Date Evelyn Ledesma FNP PCP - General Family Medicine 03/15/22 04/25/23 Oralia Aguila MD [address] [place] [phone] PCP - General Family Medicine 04/26/23 01/01/24 Zeinab Sykes MD [address] [place] [phone] PCP - General Internal Medicine 01/02/24 Tomeka Martins Records ClerkPublic Transportation Inspector 10/27/23 documented as of this encounter
--- OUTSIDE RECORDS SUMMARY | 2024-08-31 14:04 | XMS_ITS | Encounter Summary ---
Author Organization [facility] Address [address] [place] [address] 7t [place] [address] Care Team Providers Care Glass Forming Engineer Name Role Phone Evelyn Ledesma Primary Care Provider [phone] Oralia Aguila MD Primary Care Provider [phone] Zeinab Sykes MD Primary Care Provider + Encounter Details Date Type Department Care Team (Late Contact Info) Description 08/20/2022 Orders Only [facility] [address] [place] [phone] Karen Henderson FNP Social History Tobacco Use [...] AM EDT Office Visit [facility] [address] [place] [phone] 10/09/2024 11:45 AM EDT Office Visit [facility] [address] [place] [address] Zeinab Sykes MD [address] [place] [address] documented as of this encounter Visit Diagnoses Not on filedocumented in this encounter Care Teams Glass Forming Engineer Relationship Specialty Start Date End Date Evelyn Ledesma FNP PCP - General Family Medicine 03/15/22 04/25/23 Oralia Aguila MD [address] [place] [address] [phone] PCP - General Family Medicine 04/26/23 01/01/24 Zeinab Sykes MD [address] [place] [phone] PCP - General Internal Medicine 01/02/24 Tomeka Martins Bell ValetMechanotherapist 10/27/23 documented as of this encounter
--- OUTSIDE RECORDS SUMMARY | 2024-08-31 14:04 | XMS_ITS | Encounter Summary ---
Author Organization [facility] Address [address] [facility] 7t [place] [address] Care Team Providers Care Stocking Inspector Name Role Phone Zeinab Sykes MD Primary Care Provider + Reason for Visit * Reason Onset Date Comments Med Refill 07/16/2024 Encounter Details Date Type Department Care Team ([facility] st Contact Info) Description 07/16/2024 Telephone [facility] [address] [place], [place] [phone] Zeinab Sykes MD [address] [place], [place] [phone] Med Refill Social History Tobacco Use Types [...] 10 MG capsule To be sent to: [facility] pharmacy documented in this encounter Plan of Treatment Upcoming Encounters Date Type Department Care Team (Late st Contact Info) Description 09/25/2024 9:45 AM EDT Office Visit [facility] [address] [place] [address] [phone] 10/09/2024 11:45 AM EDT Office Visit [facility] [address] [place] [phone] Zeinab Sykes MD [address] [place] [address] documented as of this encounter Goals Goal Patient Goal Type Associated Problems Recent Progress Patient-Stated? Author Patient will manage their medication General On track( 023 11:18 AM EDT) Citlali Ocampo, Anoop Note: Began medboxes. Goal achieved 11/19/22. Patient graduated from [facility]. documented as of this encounter Visit Diagnoses Not on filedocumented in this encounter Additional Health Concerns Assessment Noted Time PHQ-9 Depression Total Score: 18 024 1:46 PM EDT documented as of this encounter Care Teams Stocking Inspector Relationship Specialty Start Date End Date Zeinab Sykes MD [address] [place] [address] PCP - General Internal Medicine 01/02/24 Tomeka Martins Stained Glass PainterNetwork Engineering Advisor 10/27/23 documented as of this encounter
--- OUTSIDE RECORDS SUMMARY | 2024-08-31 14:04 | XMS_ITS | Clinical Summary ---
Author Organization [facility] Address [address] [place] [address] Care Team Providers Care Vocational Training Teacher Name Role Phone Meryl Montes Primary Care Provider [phone] Surgical History Surgery Date Site/Laterality Comments BREAST REDUCTION PROCEDURE: [place] BREAST REDUCTION BACK SURGERY PROCEDURE: HISTORICAL BACK [...] drink = 0.6 oz pur e alcohol) Comments Unknown Sex and Gender Information Value Date Recorded Sex Assigned at Not on file Legal Sex Female 11:34 PM EST Gender Identity Not on file Sexual Orientation [...] Cervical Cancer Screening: P ap Smear 11/05/1980 Pneumococcal Vaccine: 50+ Ye ars (1 of 1 - PCV) 11/05/2009 Zoster Vaccines (1 of 2) 11/05/2009 Colorectal Cancer Screening: Colonoscopy 06/27/2022 Depression Screening 06/27/2022 HIV Screening 06/27/2022 Hepatitis C Screening 06/27/2022 Social Influencers of Health Screening 06/27/2022 COVID-19 Vaccine (1 - 2023-2 5 season) 2024 Influenza Vaccine [...] patient's age to complete this topic Meningococcal B Vacine Aged Out No lo nger eligible based on patient's age to complete [...] age to complete this topic Care Teams Vocational Training Teacher Relationship Specialty Start Date End Date Meryl Montes [address] [place] [phone] PCP - General 05/07/22
--- OUTSIDE RECORDS SUMMARY | 2024-08-31 14:04 | XMS_ITS | Encounter Summary ---
Author Organization [employer] Address [address] [facility] 7t [place] [address] Care Team Providers Care Fruit Coordinator Name Role Phone Evelyn Ledesma Primary Care Provider [phone] Oralia Aguila MD Primary Care Provider [phone] Zeinab Sykes MD Primary Care Provider + Reason for Visit * Reason Onset Date Comments case from lab 11/04/2022 Encounter Details Date Type Department Care Team (Late st Contact Info) Description 11/04/2022 Telephone [facility] [address] [place] [address] Asad Shore DDS [address] [place] [address] case from lab Social History Tobacco Use [...] Description 09/25/2024 9:45 AM EDT Office Visit [facility] [address] [place] [address] 10/09/2024 11:45 AM EDT Office Visit [address] [address] Zeinab Sykes MD [address] [place] [address] documented as of this encounter Visit Diagnoses Not on filedocumented in this encounter Care Teams Fruit Coordinator Relationship Specialty Start Date End Date Evelyn Ledesma FNP PCP - General Family Medicine 03/15/22 04/25/23 Oralia Aguila MD [address] [place] [address] PCP - General Family Medicine 04/26/23 01/01/24 Zeinab Sykes MD [address] [place] [phone] PCP - General Internal Medicine 01/02/24 Tomeka Martins Piston MakerCalender Inspector 10/27/23 documented as of this encounter
--- OUTSIDE RECORDS SUMMARY | 2024-08-31 14:04 | XMS_ITS | Encounter Summary ---
Author Organization [employer] [facility] Address [address] [place] [address] 7t [place] [address] Care Team Providers Care Box Strapper Name Role Phone Evelyn Ledesma Primary Care Provider [phone] Oralia Aguila MD Primary Care Provider [phone] Zeinab Sykes MD Primary Care Provider + Reason for Visit * Reason Onset Date Comments Prior Authorization 12/28/2022 Encounter Details Date Type Department Care Team (Late st Contact Info) Description 12/28/2022 Telephone [facility] [address] [place] [address] Evelyn Ledesma FNP [address] [place] [address] Dept [place] [address] Prior Authorization Social History Tobacco Use Types [...] AM EDT T/C placed to pt via [employer] Supervisor Zeinab #[id number]. Advised of message from pcp re: lab [...] all other NSAIDS. Do you have a foreclosure clerk yet? If not, your PCP would like [...] 12/28/2022 10:18 AM EDT THOMAS Emery from [employer] requesting XL pull ups and disposable under pads . States faxed request couple days ago and have not gotten a response . Informs paper work 12/29/22. Please call to clarify at phone # [phone] . documented in this encounter Plan of Treatment Upcoming Encounters Date Type Department Care Team (Late st Contact Info) Description 09/25/2024 9:45 AM EDT Office Visit [facility] [address] [place] [address] 10/09/2024 11:45 AM EDT Office Visit [facility] [address] [place] [address] Zeinab Sykes MD [address] [place] [address] documented as of this encounter Goals Goal Patient Goal Type Associated Problems Recent Progress Patient-Stated? Author Patient will manage their medication General On track( 023 11:18 AM EDT) Citlali Ocampo, Anoop Note: Began medboxes. Goal achieved 11/19/22. Patient graduated from [facility]. documented as of this encounter Visit Diagnoses Not on filedocumented in this encounter Care Teams Box Strapper Relationship Specialty Start Date End Date Evelyn Ledesma FNP PCP - General Family Medicine 03/15/22 04/25/23 Oralia Aguila MD [address] [place] [address] PCP - General Family Medicine 04/26/23 01/01/24 Zeinab Sykes MD [address] [place] [phone] PCP - General Internal Medicine 01/02/24 Tomeka Martins Hand RiggerTextile Artist 10/27/23 documented as of this encounter
--- OUTSIDE RECORDS SUMMARY | 2024-08-31 14:04 | XMS_ITS | Encounter Summary ---
Author Organization [employer] [facility] Address [address] [place] [address] 7 [place] [address] Care Team Providers Care Orchard Pruner Name Role Phone Evelyn Ledesma Primary Care Provider [phone] Oralia Aguila MD Primary Care Provider [phone] Zeinab Sykes MD Primary Care Provider + Reason for Visit * Reason Onset Date Comments Referral 02/03/2023 Renewal Encounter Details Date Type Department Care Team (Late st Contact Info) Description 02/03/2023 Telephone [facility] [address] [place] [phone] Evelyn Ledesma FNP [address] [place] [address] Dept [place] [address] Referral (Renewal ) Social History Tobacco Use [...] 09/25/2024 9:45 AM EDT Office Visit [address] [address] 10/09/2024 11:45 AM EDT Office Visit [address] [address] Zeinab Sykes MD [address] [place], [place] [phone] documented as of this encounter Goals Goal Patient Goal Type Associated Problems Recent Progress Patient-Stated? Author Patient will manage their medication General On track( 023 11:18 AM EDT) Citlali Ocampo, PharmD Note: Began medboxes. Goal achieved 11/19/22. Patient graduated from [facility]. documented as of this encounter Visit Diagnoses Not on filedocumented in this encounter Care Teams Orchard Pruner Relationship Specialty Start Date End Date Evelyn Ledesma FNP PCP - General Family Medicine 03/15/22 04/25/23 Oralia Aguila MD [address] [place] [address] [phone] PCP - General Family Medicine 04/26/23 01/01/24 Zeinab Sykes MD [address] [place] [address] [phone] PCP - General Internal Medicine 01/02/24 Tomeka Martins Manager StorageClamp Forklift Operator 10/27/23 documented as of this encounter
--- OUTSIDE RECORDS SUMMARY | 2024-08-31 14:04 | XMS_ITS | Encounter Summary ---
Author Organization [facility] Address [address] [place] [address] 7t [place] [address] Care Team Providers Care Roll Cutter Name Role Phone Zeinab Sykes MD Primary Care Provider + Reason for Referral * Hospital - Outpatient (Routine) - Authorized Specialty Diagnoses / Procedures Referred By Contac t Referred To Contact Diagnoses ADELAIDE (obstructive sleep apnea) Procedures Polysomnography Zeinab Sykes MD [address] [place] [address] Phone: tel: fax: [address] Phone: tel: fax: Referral ID Status Reason Start Date Expiration Date V isits Requested Visits Authorized [id number] Authorized 08/15/2024 08/15/2025 1 1 Reason for [...] Encounter Details Date Type Department Care Team ([facility] st Contact Info) Description 08/15/2024 10:15 AM EST Office Visit [facility] [address] [place], [place] [phone] Zeinab Sykes MD [address] [place] [address] Type 2 diabetes mellitus without complication, without [...] t he electric, gas, oil or water [employer] threatened to shut off services in your [...] documented in this encounter Progress Notes * Zeinab Sykes MD - 08/15/2024 10:15 AM EST SUBJECTIVE: Rhonda Mclaughlin is a 63 y.o. year old female who presents for follow up DM/ leg pain. Denies recent illness, injury, or hospitalization. Pelvic US on 03/23/2024 showed thickened endometrium, 0.6 cm fibroid. She followed up with [facility] and was surgically treated. Patient is compliant with all her medications. She attended her consult with the psychiatrist and they increased her medication dose. Patient mentions her depression symptoms have worsened. She says to be worried lately due to problems with housing. Acute Concerns: Patient states during the most recent surgery she had bradypnea and the doctor told her to check with PCP for follow up. She states to have gained a lot of weight recently and is very concerned about this. Patient was seen last week for an URI, today she continues symptoms. Social History Social History Narrative Not on file Patient Active Problem List Diagnosis S/P placement of VNS (vagus nerve stimulation) device Essential hypertension Other intervertebral disc displacement, lumbar region Type 2 diabetes mellitus without complication (CMS/HCC) Moderate persistent asthma without complication Detrusor overactivity Neurostimulator device in situ Obesity Health care maintenance Exostosis of right foot Hallux rigidus of right foot Mixed incontinence Rectocele Neuropathy Gastroesophageal reflux disease without esophagitis RUQ pain Stage 3a chronic kidney disease (CMS/HCC) Recurrent sinusitis Moderate persistent asthma with acute exacerbation Seborrheic dermatitis of scalp Housing insecurity Dyslipidemia Fatty liver Long-term current use of opiate analgesic Postmenopause bleeding Left foot pain Lumbar back pain with radiculopathy affecting left lower extremity Recurrent major depressive disorder, in partial remission (CMS/HCC) ADELAIDE (obstructive sleep apnea) Nasal congestion No family history on file. Review of Systems Constitutional: Positive for unexpected weight change (increased weight gain). Negative for chills,fatigue and fever. HENT: Positive for congestion. Negative for ear pain, nosebleeds, rhinorrhea, sinus pressure, sore throat and trouble swallowing. Eyes: Negative for pain and discharge. Respiratory: Positive for cough. Negative for chest tightness and shortness of breath. Cardiovascular: Negative for chest pain, palpitations and leg swelling. Gastrointestinal: Negative for abdominal pain, blood in stool, constipation, diarrhea and nausea. Endocrine: Negative for polydipsia and polyuria. Genitourinary: Negative for dysuria, frequency, genital sores, pelvic pain and vaginal discharge. Musculoskeletal: Negative for back pain and neck pain. Skin: Negative for rash. Allergic/Immunologic: Negative for environmental allergies. Neurological: Negative for dizziness, seizures, weakness, light-headedness and headaches. Hematological: Negative for adenopathy. Psychiatric/Behavioral: Negative for agitation, behavioral problems, self-injury and suicidal ideas. The patient is nervous/anxious. OBJECTIVE: Vitals: 08/15/24 1029 BP: 128/72 Pulse: 65 Resp: 20 Temp: 97.2 ??F (36.2 ??C) SpO2: 98% Physical Exam HENT: Right Ear: Tympanic membrane and ear canal normal. Left Ear: Tympanic membrane and ear canal normal. Mouth/Throat: Mouth: Mucous membranes are moist. Pharynx: Posterior oropharyngeal erythema present. No oropharyngeal exudate. Eyes: Pupils: Pupils are equal, round, and reactive to light. Cardiovascular: Rate and Rhythm: Regular rhythm. Pulses: Normal pulses. Heart sounds: Normal heart sounds. No murmur heard. Pulmonary: Breath sounds: Wheezing (Bilateral) present. Abdominal: General: Bowel sounds are normal. Palpations: Abdomen is soft. Tenderness: There is no abdominal tenderness. Musculoskeletal: General: Normal range of motion. Cervical back: Neck supple. Lumbar back: Tenderness (walks with cane) present. Skin: General: Skin is warm. Neurological: General: No focal deficit present. Mental Status: She is alert and oriented to person, place, and time. Psychiatric: Mood and Affect: Mood normal. Behavior: Behavior normal. Office Visit on 08/15/2024 Component Date Value Ref Range Status Glucose Blood, POC 08/15/2024 202 (A) 60 - 200 mg/dL Final QC Media Lot # 08/15/2024 [id number] Final Lot# Expiration Date 08/15/2024 [id number] Final Rapid COVID Ag 08/15/2024 Negative Final QC Media Lot # 08/15/2024 [id number] Final Lot# Expiration Date 08/15/2024 [id number] Final Influenza A 08/15/2024 Negative Negative, Indeterminate Final QC Media Lot # 08/15/2024 [id number] Final Lot# Expiration Date 08/15/2024 11,526 Final Influenza B 08/15/2024 Negative Negative, Indeterminate Final QC Media Lot # 08/15/2024 [id number] Final Lot# Expiration Date 08/15/2024 11,526 Final Problem List Items Addressed This Visit Type 2 diabetes mellitus without complication (CMS/HCC) - Primary Controlled. Hyperglycemia today, most likely current URI. Continue on lifestyle modifications only, no meds for now. Counseled re more frequent low calorie/carb meals. Check fgstk 1x daily Encouraged physical activity as tolerated. FU in 3-4 months. Relevant Orders POCT Glucose (Completed) Essential hypertension Controlled. Compliant w/ Exforge, Chlorthalidone. Counseled re low salt diet/increase moderate physical activity. Check home BP BIW and prn CP/GUERIN/HART Postmenopause bleeding Result s/p endometrial polyp resection. Recurrent major depressive disorder, in partial remission (CMS/HCC) Uncontrolled. FU with [facility] for adjustment. Patient waiting for housing assignment, needs a letter with functional limitations including handicap entrance. Drop release of information at medical records. Moderate persistent asthma with acute exacerbation DuoNeb nebullization today and will continue BID at home for 5 days and after PRN. FU in 1 month. Relevant Medications ipratropium-albuterol (Duo-Neb) 0.5-2.5 mg/3 mL nebulizer solution 3 mL (Completed) ADELAIDE (obstructive sleep apnea) Patient returned CPAP, she did not tolerate mask. Repeat sleep study and titration. I will prescribe nasal mask. Relevant Orders Polysomnography Housing insecurity See above. Applying for housing and need handicap access. Nasal congestion Residual from URI, now improving. Continue Flonase and Tylenol as needed. DuoNeb nebulization today for asthma exacerbation and she will return to clinic if symptoms get worse or she develops fever again. Relevant Orders POCT Rapid Covid-19 BinaxNOW (Completed) POCT Rapid Influenza A JI ID NOW (Completed) POCT Rapid Influenza B JI ID NOW (Completed) Follow Up: Current Outpatient Medications on File Prior to Visit Medication Sig Dispense Refill acetaminophen (Tylenol) 325 MG tablet Take 2 tablets (650 mg) by mouth every 6 (six) hours if needed for moderate pain or fever. 120 tablet 0 albuterol (2.5 MG/3ML) 0.083% nebulizer solution Take 3 mL (2.5 mg) by nebulization every 4 (four) hours if needed for wheezing or shortness of breath (Maximum 4 treatments per day). 75 mL 2 Alcohol Swabs (Alcohol Prep) pads USE TWICE DAILY 100 each 5 amLODIPine-valsartan (Exforge) 10-320 MG tablet TAKE 1 TABLET BY MOUTH EVERY MORNING 90 tablet 3 ammonium lactate (Lac-Hydrin) 12 % lotion apply twice daily to affected area, rub in well atorvastatin (Lipitor) 20 MG tablet Take 1 tablet (20 mg) by mouth at bedtime. 90 tablet 3 benzonatate (Tessalon Perles) 100 MG capsule Take 1 capsule (100 mg) by mouth if needed in the morning, at noon, and at bedtime for cough for up to 7 days. Do not crush or chew. 20 capsule 0 betamethasone dipropionate (Diprosone) 0.05 % lotion APPLY TOPICALLY TO SCALP TWICE DAILY (for itching), DECREASE WHEN SYMPTOMS IMPROVE Blood Glucose Monitoring Suppl (FreeStyle glucose monitoring) kit 1 each if needed. Blood Pressure kit celecoxib (CeleBREX) 100 MG capsule Take 1 capsule (100 mg) by mouth 2 times daily. 60 capsule 3 cetirizine (ZyrTEC) 10 MG tablet Take 1 tablet (10 mg) by mouth Once per day. 90 tablet 3 chlorthalidone (Hygroton) 25 MG tablet TAKE 1/2 TABLET BY MOUTH EVERY MORNING 45 tablet 3 Clobetasol Propionate 0.05 % lotion APPLY TO SCALP TWICE DAILY NEEDED FOR FLARE desonide (DesOwen) 0.05 % cream APPLY TOPICALLY TO FACE (for itching) ONCE DAILY NEEDED. DECREASE WHEN SYMPTOMS IMPROVE Diclofenac Sodium 1 % gel Apply 2 g topically 4 times daily. 100 g 1 doxepin (SINEquan) 10 MG capsule Take 10 mg by mouth in the morning. ergocalciferol (Vitamin D2) 1.25 MG (12225 UT) capsule TAKE 1 CAPSULE BY MOUTH ONCE WEEKLY ON Tuesday 12 capsule 0 Finacea 15 % gel APPLY TOPICALLY TO THE FACE ONCE DAILY FreeStyle lancets 1 each by Other route Once per day. USE TO TEST BLOOD SUGAR ONCE A DAY 100 each 3 gabapentin (Neurontin) 300 MG capsule TAKE 1 CAPSULE BY MOUTH THREE TIMES DAILY IN THE MORNING, EVENING, AND BEDTIME 90 capsule 3 glucose blood (FREESTYLE LITE) test strip USE TO TEST BLOOD SUGAR ONCE A DAY 100 each 3 hydrOXYzine HCl (Atarax) 25 MG tablet Take 1 tablet by mouth every 8 (eight) hours. PRN itching lidocaine (Lidoderm) 5 % patch APPLY 1 PATCH TOPICALLY TO SKIN, LEAVE ON FOR 12 HOURS AND OFF FOR 12 HOURS DIRECTED DIRECTED 30 patch 3 minoxidil (Loniten) 2.5 MG tablet Take 1.25 mg by mouth in the morning. Misc. Devices (Cane) misc Myrbetriq 25 MG 24 hr tablet Take 25 mg by mouth in the morning. ondansetron (Zofran) 4 MG tablet Take 1 tablet (4 mg) by mouth every 8 (eight) hours if needed for nausea or vomiting. 12 tablet 0 oxyCODONE-acetaminophen (Percocet) 5-325 MG tablet Take 1 tablet by mouth every 6 (six) hours if needed for severe pain for up to 28 days. 112 tablet 0 oxymetazoline (Afrin Nasal Monroe) 0.05 % nasal spray Administer 2 sprays into each nostril every 12(twelve) hours if needed for congestion for up to 2 days. Do not use for more than 3 days. 30 mL 0 pantoprazole (ProtoNix) 20 MG EC tablet Take 20 mg by mouth in the morning. pseudoephedrine (Sudafed) 60 MG tablet Take 1 tablet (60 mg) by mouth every 6 (six) hours if neededfor congestion for up to 7 days. 20 tablet 0 Respiratory Therapy Supplies (Nebulizer) device sodium chloride ([place]i Nasal Monroe) 0.65 % nasal spray Administer 1 spray into each nostril if needed for congestion. 30 mL 1 Symbicort 160-4.5 MCG/ACT inhaler Inhale 2 puffs 2 times daily. Turmeric 500 MG capsule Use 3 capsules per day. Patient purchases OTC. No current facility-administered medications on file prior to visit. I, Shilpa Ashford, am serving as a scribe to document services personally performed by Dr. Zeinab Sykes, based on the patient's response to questions by provider and provider's statements to me. documented in this encounter Miscellaneous Notes * [...] Description 09/25/2024 9:45 AM EDT Office Visit [facility] [address] [place] [phone] 10/09/2024 11:45 AM EDT Office Visit [facility] [address] [place] [address] [phone] Zeinab Sykes MD [address] [place] [address] Scheduled Orders Name Type Priority Associated Diagnoses [...] Goal achieved 11/19/22. Patient graduated from [facility]. documented as of this encounter [...] complication, without long-term current use of insulin ([facility]) documented in this encounter Results * POCT Rapid Influenza A JI ID NOW (08/15/2024 11:29 AM EST) Influenza A Negative Negative, Indeterminate [facility] QC Media Lot # [id number] [facility] Lot# Expiration Date [facility] Swab 08/15/2024 11:2 9 AM EST Zeinab Sykes MD POINT OF CARE TEST ENTER /EDIT ORDERABLES Final Result Performing Organization Address [facility]/ZIP Co de Phone Number [facility] [address] [place] [phone] * POCT Rapid Covid-19 BinaxNOW (08/15/2024 11:29 AM EST) Rapid COVID Ag Negative [facility] QC Media Lot # [id number] [facility] Lot# Expiration Date [id number] [facility] Swab 08/15/2024 11:2 9 AM EST Zeinab Sykes MD POINT OF CARE TEST ENTER /EDIT ORDERABLES Final Result Performing Organization Address [facility]/ZIP Co de Phone Number [facility] [address] [place] [phone] * POCT Rapid Influenza B JI ID NOW (08/15/2024 11:28 AM EST) Influenza B Negative Negative, Indeterminate [facility] QC Media Lot # [id number] [facility] Lot# Expiration Date [facility] Swab 08/15/2024 11:2 8 AM EST Zeinab Sykes MD POINT OF CARE TEST ENTER /EDIT ORDERABLES Final Result Performing Organization Address City/[facility]/ZIP Co de Phone Number [facility] [address] [place] [address] [phone] * (ABNORMAL) POCT Glucose (08/15/2024 10:38 [...] complication, without long-term current use of insulin ([facility])- Primary Essential hypertension Unspecified essential hypertension Postmenopause bleeding Postmenopausal bleeding Recurrent major depressive disorder, in partial remission ([facility]) Moderate persistent asthma with acute [...] documented as of this encounter Care Teams Roll Cutter Relationship Specialty Start Date End Date Zeinab Sykes MD [address] [place] [address] PCP - General Internal Medicine 01/02/24 Tomeka Martins Line ManagerPourer Metal 10/27/23 documented as of this encounter
--- OUTSIDE RECORDS SUMMARY | 2024-08-31 14:04 | XMS_ITS | Encounter Summary ---
Author Organization [employer] Address [address] [place] [address] 7t [place] [address] Care Team Providers Care Record Changer Assembler Name Role Phone Evelyn Ledesma Primary Care Provider [phone] Oralia Aguila MD Primary Care Provider [phone] Zeinab Sykes MD Primary Care Provider + Reason for Visit * Reason Onset Date Comments medical clearance 02/11/2023 Encounter Details Date Type Department Care Team (Late st Contact Info) Description 02/11/2023 Telephone [facility] [address] [place] [address] Asad Shore DDS [address] [place] [address] medical clearance Social History Tobacco Use Types [...] Description 09/25/2024 9:45 AM EDT Office Visit [address] [phone] 10/09/2024 11:45 AM EDT Office Visit [address] [phone] Zeinab Sykes MD [address] [place] [address] [phone] documented as of this encounter Goals Goal Patient Goal Type Associated Problems Recent Progress Patient-Stated? Author Patient will manage their medication General On track( 023 11:18 AM EDT) Citlali Ocampo, PharmD Note: Began medboxes. Goal achieved 11/19/22. Patient graduated from [facility]. documented as of this encounter Visit Diagnoses Not on filedocumented in this encounter Care Teams Record Changer Assembler Relationship Specialty Start Date End Date Evelyn Ledesma FNP PCP - General Family Medicine 03/15/22 04/25/23 Oralia Aguila MD [address] [place] [address] [phone] PCP - General Family Medicine 04/26/23 01/01/24 Zeinab Sykes MD [address] [place] [address] [phone] PCP - General Internal Medicine 01/02/24 Tomeka Martins Infant Lead TeacherWeb Portal Developer 10/27/23 documented as of this encounter
--- OUTSIDE RECORDS SUMMARY | 2024-08-31 14:04 | XMS_ITS | Encounter Summary ---
Author Organization [facility] Address [address] [facility] 7t [place] [address] Care Team Providers Care Plaster Pattern Caster Name Role Phone Evelyn Ledesma Primary Care Provider [phone] Oralia Aguila MD Primary Care Provider [phone] Zeinab Sykes MD Primary Care Provider + Encounter Details Date Type Department Care Team ([facility] Contact Info) Description 10/22/2022 Orders Only [facility] [address] [place] [address] Evelyn Ledesma FNP [address] [place] [address] [place] [address] Social History Tobacco Use Types Packs/Day Years [...] Upcoming Encounters Date Type Department Care Team ([facility] Contact Info) Description 09/25/2024 9:45 AM EDT Office Visit [facility] [address] [place] [phone] 10/09/2024 11:45 AM EDT Office Visit [address] [phone] Zeinab Sykes MD [address] [place] [phone] documented as of this encounter Visit Diagnoses Not on filedocumented in this encounter Care Teams Plaster Pattern Caster Relationship Specialty Start Date End Date Evelyn Ledesma FNP PCP - General Family Medicine 03/15/22 04/25/23 Oralia Aguila MD [address] [place] [phone] PCP - General Family Medicine 04/26/23 01/01/24 Zeinab Sykes MD [address] [place] [phone] PCP - General Internal Medicine 01/02/24 Tomeka Martins Supervisor Adult EducationDifferential Specialist 10/27/23 documented as of this encounter
--- OUTSIDE RECORDS SUMMARY | 2024-08-31 14:04 | XMS_ITS | Clinical Summary ---
Author Organization [facility], Address [address] [place] [address] [place] [phone] Phone Care Team Providers Care Emergency Department Director Name Role Phone Evelyn Rodriguez Primary Care [...] age to complete this topic Insurance MEDICAID [place] Care Teams Emergency Department Director Relationship Specialty Start Date End Date Evelyn Rodriguez FNP PCP - General 02/18/23
--- OUTSIDE RECORDS SUMMARY | 2024-08-31 14:05 | XMS_ITS | Encounter Summary ---
Author Organization [employer] Address [address] [facility] 7t [place] [address] Care Team Providers Care Hand Tennis Ball Coverer Name Role Phone Zeinab Sykes MD Primary Care Provider + Reason for Visit * Reason Onset Date Comments Chart prep 08/10/2024 Encounter Details Date Type Department Care Team ([facility] st Contact Info) Description 08/10/2024 Telephone [facility] [address] [place] [address] Terra Mackey MA Chart prep Social History [...] Description 09/25/2024 9:45 AM EDT Office Visit [facility] [address] [place] [phone] 10/09/2024 11:45 AM EDT Office Visit [facility] [address] [place] [phone] Zeinab Sykes MD [address] [place] [phone] documented as of this encounter Goals Goal Patient Goal Type Associated Problems Recent Progress Patient-Stated? Author Patient will manage their medication General On track( 023 11:18 AM EDT) No Citlali Armando, Anoop Note: Began medboxes. Goal achieved 11/19/22. Patient graduated from [facility]. documented as of this encounter Visit Diagnoses Not on filedocumented in this encounter Additional Health Concerns Assessment Noted Time PHQ-9 Depression Total Score: 18 024 1:46 PM EDT documented as of this encounter Care Teams Hand Tennis Ball Coverer Relationship Specialty Start Date End Date Zeinab Sykes MD [address] [place] [phone] PCP - General Internal Medicine 01/02/24 Tomeka Martins Case AdvocateHcc Coders 10/27/23 documented as of this encounter
--- OUTSIDE RECORDS SUMMARY | 2024-08-31 14:05 | XMS_ITS | Encounter Summary ---
Author Organization [facility] Address [address] [place] [address] 7t [place] [address] Care Team Providers Care Choral Teacher Name Role Phone Evelyn Ledesma Primary Care Provider [phone] Oralia Aguila MD Primary Care Provider [phone] Zeinab Sykes MD Primary Care Provider + Encounter Details Date Type Department Care Team (Latest Contact Info) Description 12/21/2018 Abstract [facility] CONVERSIONS Dental, Provider, DDS Social History [...] Description 09/25/2024 9:45 AM EDT Office Visit [facility] [address] [place] [address] [phone] 10/09/2024 11:45 AM EDT Office Visit [facility] [address] [place] [address] [phone] Zeinab Sykes MD [address] [place] [phone] documented as of this encounter Visit Diagnoses Not on filedocumented in this encounter Care Teams Choral Teacher Relationship Specialty Start Date End Date Evelyn Ledesma FNP PCP - General Family Medicine 03/15/22 04/25/23 Oralia Aguila MD [address] [place] [address] PCP - General Family Medicine 04/26/23 01/01/24 Zeinab Sykes MD [address] [place] [address] PCP - General Internal Medicine 01/02/24 Tomeka Martins Leaf TierMine Engineering Manager 10/27/23 documented as of this encounter
--- OUTSIDE RECORDS SUMMARY | 2024-08-31 14:05 | XMS_ITS | Encounter Summary ---
Author Organization [employer] Address [address] [facility] 7t [place] [address] Care Team Providers Care Workday Financials Consultant Name Role Phone Zeinab Sykes MD Primary Care Provider + Reason for Visit * Reason Comments Cough Encounter Details Date Type Department Care Team ([facility] Contact Info) Description 08/21/2024 5:20 PM EST Office Visit [facility] [address] [place] [address] [phone] Yonathan Snider MD [address] [place] [address] Subacute cough Social History Tobacco Use Types [...] day for 4 days. Patient presents to [facility] due to 3-week duration of cough [...] Description 09/25/2024 9:45 AM EDT Office Visit [facility] MED[facility] [address] [place] [address] 10/09/2024 11:45 AM EDT Office Visit [facility] MED[facility] [address] [place] [address] Zeinab Sykes MD [address] [place] [address] documented as of this encounter Goals Goal Patient Goal Type Associated Problems Recent Progress Patient-Stated? Author Patient will manage their medication General On track( 023 11:18 AM EDT) Citlali Ocampo PharmD Note: Began medboxes. Goal achieved 11/19/22. Patient graduated from [facility]. documented as of this encounter [...] Routine 08/21/2024 2:25 PM EST Subacute cough documented in this encounter Results * XR Chest 2 Views (08/22/2024 3:53 PM EST) Anatomical Region Laterality Modality Chest Radiographic Celia ging 08/22/2024 3:53 PM EST Narrative 08/22/2024 4:30 PM EST ?[facility] ?[address] ?[place] [address] ?XRay Report ? Signed ? Patient: Gerry Mclaughlin,Rhonda ?MR# ?? : [id number] ? : 1960 ?Acct:[id number] ? Age/Sex: 63 / F ?ADM Date: 08/22/24 ? Loc: HO.HHCX ? Attending Dr: Yonathan Snider MD ? Ordering Physician: Yonathan Snider MD ?? Date of Service: 08/22/24 ?? Procedure(s): XR chest 2V ?? Accession Number(s): [id number] ? cc: Yonathan Snider MD ? EXAMINATION: [...] process seen. ? Electronically signed by: ??Sanjeev Mayfield MD ??08/22/2024 04:27 PM EST RP ? Dictated By: ?Sanjeev Mayfield MD ? Signed By: ?<Electronically signed by Sanjeev Mayfield MD in OV> ?08/22/24 1627 ? DD/ 1553 ? TD/TT: 08/22/24 1600 ? Videogame Designer: MSM ? Procedure Note Carolina Hernandez - 08/22/[address] [address] XRay Report Signed Patient: Bertin FernándezMl# : [id number] : 1960Acct:[id number] Age/Sex: 63 / FADM Date: 08/22/24 Loc: .CX Attending Dr: Yonathan Snider MD Ordering Physician: Yonathan Snider MD Date of Service: 08/22/24 Procedure(s): XR chest 2V Accession Number(s): [id number] cc: Yonathan Snider MD EXAMINATION: XR CHEST [...] Sanjeev Mayfield MD 08/22/2024 04:27 PM EST RP Dictated By: Sanjeev Mayfield MD Signed By: <Electronically signed by Sanjeev Mayfield MD in OV> 08/22/24 1627 DD/ 1553 TD/TT: 08/22/24 1600 Videogame Designer: MSM Yonathan Snider MD IMG XR PROCEDURES Edited Result - Final * Influenza B (ID NOW Rapid Molecular) (08/21/2024 5:37 PM EST) Pathologist [facility] Influenza B Negative Negative, Indeterminate [facility] Swab 08/21/2024 5:37 PM EST Yonathan Snider MD POINT OF CARE TEST ENTER/EDIT OR DERABLES Final Result [facility] [address] [place] [address] [phone] * Influenza A (ID NOW Rapid Molecular) (08/21/2024 5:37 PM EST) Influenza A Negative Negative, Indeterminate [facility] Swab 08/21/2024 5:37 PM EST Yonathan Snider MD POINT OF CARE TEST ENTER/EDIT OR DERABLES Final Result [facility] [address] [place] [phone] * POCT Rapid COVID Ag (08/21/2024 5:10 PM EST) [facility] Rapid COVID Ag Negative Swab 08/21/2024 5:10 PM EST Yonathan Snider MD POINT OF CARE TEST ENTER/EDIT OR DERABLES Final Result * (ABNORMAL) Respiratory Viral Panel PCR (08/21/2024 2:25 PM EST) [facility] Adenovirus PCR Not Detected Not Detect. [facility] Bordetella pertussis PCR Not Detected Not Detect. [facility] Comment:Interpret results wi th caution. If B. pertussis isspecifically suspected, additional testing using analternate method is recommended. Bordetella parapertussis PCR Not Detected Not Detect. [facility] Chlamydia pneumoniae PCR Not Detected Not Detect. [facility] Coronavirus 229E PCR Not Detected Not Detect. [facility] Coronavirus HKU1 PCR Not Detected Not Detect. [facility] Coronavirus NL63 PCR Not Detected Not Detect. [facility] Coronavirus OC43 PCR Detected(A) Not Detect. [facility] SARS-CoV-2 PCR Not Detected Not Detect. [facility] Comment:SARS-CoV-2 not detec jocelyn by real-time RT-PCR.Note: If clinical suspicion for Sars-CoV-2 is high, continueto maintain precautions and consider repeat testing.Test results should be interpreted in the context ofclinical findings and other laboratory data.Rare polymorphisms exist that could lead to false-negativeor false-positive results. If results do not match theclinical findings, additional testing should be considered.Results reported to [facility].This test has been authorized by the FDA under the EmergencyUse Authorization (EUA) for use by authorized laboratories. Influenza A PCR Not Detected Not Detect. [facility] Influenza B PCR Not Detected Not Detect. [facility] Human metapneumovirus PCR Not Detected Not Detect. [facility] Rhino/Enterovirus PCR Not Detected Not Detect. [facility] Mycoplasma pneumoniae PCR Not Detected Not Detect. [facility] Parainfluenza 1 PCR Not Detected Not Detect. [facility] Parainfluenza 2 PCR Not Detected Not Detect. [facility] Parainfluenza 3 PCR Not Detected Not Detect. [facility] Parainfluenza 4 PCR Not Detected Not Detect. [facility] RSV PCR Not Detected Not Detect. [facility] Resp Panel NA Note See Note H [facility] Comment:All results must be correlated with [...] assay is performed by Multiplexed PCR, utilizing [employer]. 08/21/2024 2:25 PM EST 08/22/2024 2:39 PM EST us Yonathan Snider MD LAB BLOOD ORDERABLES Final Resul t [facility] [address] [place] [phone] documented in this encounter Visit Diagnoses Diagnosis Subacute cough documented in this encounter Additional Health Concerns Assessment Noted Time PHQ-9 Depression Total Score: 22 025 10:31 AM EST documented as of this encounter Care Teams Workday Financials Consultant Relationship Specialty Start Date End Date Zeniab Sykes MD [address] [place] [phone] PCP - General Internal Medicine 01/02/24 Tomeka Martins Race And Sports Book WriterReports Developer 10/27/23 documented as of this encounter
--- OUTSIDE RECORDS SUMMARY | 2024-08-31 14:05 | XMS_ITS | Encounter Summary ---
Author Organization [employer] [facility] Address [address] [place] [address] 7t [place] [address] Care Team Providers Care Real Estate Intern Name Role Phone Oralia Aguila MD Primary Care Provider [phone] Zeinab Sykes MD Primary Care Provider + Reason for Visit * Reason Comments Med Refill Encounter Details Date Type Department Care Team (Late Contact Info) Description 08/09/2023 Refill [facility] MEDICINE [address] [place] [phone] Oralia Aguila MD [address] [place], [place] [phone] Other intervertebral disc displacement, lumbar region Social [...] Description 09/25/2024 9:45 AM EDT Office Visit [address] [address] 10/09/2024 11:45 AM EDT Office Visit [address] [address] Zeinab Sykes MD [address] [place], [place] [phone] documented as of this encounter Goals Goal Patient Goal Type Associated Problems Recent Progress Patient-Stated? Author Patient will manage their medication General On track( 023 11:18 AM EDT) Citlali Ocampo, Anoop Note: Began medboxes. Goal achieved 11/19/22. Patient graduated from [facility]. documented as of this encounter Visit Diagnoses Diagnosis Other intervertebral disc displacement, lumbar region documented in this encounter Care Teams Real Estate Intern Relationship Specialty Start Date End Date Oralia Aguila MD [address] [place] [address] PCP - General Family Medicine 04/26/23 01/01/24 Zeinab Sykes MD [address] [place] [address] PCP - General Internal Medicine 01/02/24 Tomeka Martins Horseback ExcavatorClinching Machine Operator 10/27/23 documented as of this encounter
--- OUTSIDE RECORDS SUMMARY | 2024-08-31 14:05 | XMS_ITS | Encounter Summary ---
Author Organization [employer] [facility] Address [address] [facility] 7t [place] [address] Care Team Providers Care Shoder Filler Name Role Phone Zeinab Sykes MD Primary Care Provider + Encounter Details Date Type Department Care Team ([facility] st Contact Info) Description 08/08/2024 3:00 PM EST Office Visit [facility] ADULT DENTAL [address] [place] [address] Gay Thompson, DDS [address] [place] [address] Fracture of removable partial denture (Primary Dx) [...] female. Time Out: No data recorded Location: [facility] Tooth: Mandible Procedure: Delivery repaired denture Verified the above with patient, diver assistant, and provider. Confirmed via patient's chart, intraorally and by radiographs. Violent Crimes Detective: not applicable No chief complaint on file. [...] and expectations. NV: 6 mo periodic exam Business Transformation Analyst: Jayne Cabrera Dentist: Gay Thompson DDS documented in this encounter Plan of Treatment Upcoming Encounters Date Type Department Care Team (Late st Contact Info) Description 09/25/2024 9:45 AM EDT Office Visit [facility] MEDICINE [address] [place] [address] [phone] 10/09/2024 11:45 AM EDT Office Visit [address] [phone] Zeinab Sykes MD [address] [place], [place] [phone] documented as of this encounter Goals Goal Patient Goal Type Associated Problems Recent Progress Patient-Stated? Author Patient will manage their medication General On track( 023 11:18 AM EDT) Citlali Ocampo, PharmD Note: Began medboxes. Goal achieved 11/19/22. Patient graduated from [facility]. documented as of this encounter Procedures Procedure Name Priority Date/Time Associated Diagnosis Comments REPAIR RESIN PARTIAL DENTURE BASE, LORENA Routine [...] documented as of this encounter Care Teams Shoder Filler Relationship Specialty Start Date End Date Zeinab Sykes MD [address] [place] [address] [phone] PCP - General Internal Medicine 01/02/24 Tomeka Martins Acoustical Tile Drill Press OperatorSurgical Orderly 10/27/23 documented as of this encounter
--- OUTSIDE RECORDS SUMMARY | 2024-08-31 14:05 | XMS_ITS | Encounter Summary ---
Author Organization [employer] Address [address] [facility] 7t [place] [address] Care Team Providers Care Milieu Technician Name Role Phone Zeinab Sykes MD Primary Care Provider + Reason for Visit * Reason Comments Cough Encounter Details Date Type Department Care Team (Latest Contact Info) Description 08/08/2024 5:20 PM EST Office Visit [facility] WALK[facility] [address] [place], [place] [phone] Lia Martinez NP [address] [place] [address] Acute nasopharyngitis (Primary Dx); Flu-like symptoms Social [...] moderate pain or fever. - sodium chloride ([facility] [place]) 0.65 % nasal spray; Administer 1 spray into each nostril if needed for congestion. Flu-like symptoms - POCT Rapid RSV JI ID NOW - POCT Rapid Influenza B JI ID NOW - POCT Rapid Influenza A JI ID NOW - POCT Rapid Covid-19 BinaxNOW Turkish Translation: Provided by [facility] staff member DONTRELL Garber documented in this encounter Plan of Treatment Upcoming Encounters Date Type Department Care Team (Late st Contact Info) Description 09/25/2024 9:45 AM EDT Office Visit [facility] MEDICINE [address] [place] [address] 10/09/2024 11:45 AM EDT Office Visit [facility] MEDICINE [address] [place] [address] Zeinab Sykes MD [address] [place] [address] documented as of this encounter Goals Goal Patient Goal Type Associated Problems Recent Progress Patient-Stated? Author Patient will manage their medication General On track( 023 11:18 AM EDT) Citlali Ocampo, Anoop Note: Began medboxes. Goal achieved 11/19/22. Patient graduated from [facility]. documented as of this encounter Procedures [...] JI ID NOW (08/08/2024 5:54 PM EST) [facility] Influenza A Negative Negative, Indeterminate [facility] Swab 08/08/2024 5:54 PM EST us Lia Blasm BLOG WRITER POINT OF CARE TEST ENTER/EDIT O RDERABLES Final Result Performing Organization Address [facility] Co de Phone Number [facility] [address] [place] [phone] * POCT Rapid Influenza B JI ID NOW (08/08/2024 5:54 PM EST) [facility] Influenza B Negative Negative, Indeterminate [facility] Swab 08/08/2024 5:54 PM EST us Lia Martinez BLOG WRITER POINT OF CARE TEST ENTER/EDIT O RDERABLES Final Result Performing Organization Address [facility] Co de Phone Number [facility] [address] [place] [phone] * POCT Rapid RSV JI ID NOW (08/08/2024 5:54 PM EST) [facility] RSV Rapid Ag POC Negative Negative [facility] Swab 08/08/2024 5:54 PM EST us Reneeamena Blas BLOG WRITER POINT OF CARE TEST ENTER/EDIT O RDERABLES Final Result Performing Organization Address [facility] de Phone Number [facility] [address] [place] [phone] documented in this encounter Visit Diagnoses Diagnosis Acute nasopharyngitis- Primary Acute nasopharyngitis (common cold) Flu-like symptoms documented in this encounter Additional Health Concerns Assessment Noted Time PHQ-9 Depression Total Score: 18 06/17/2 024 1:46 PM EDT documented as of this encounter Care Teams Milieu Technician Relationship Specialty Start Date End Date Zeinab Sykes MD [address] [place] [phone] PCP - General Internal Medicine 01/02/24 Tomeka Martins Scientist EngineerManager Customer 10/27/23 documented as of this encounter
--- OUTSIDE RECORDS SUMMARY | 2024-08-31 14:05 | XMS_ITS | Encounter Summary ---
Author Organization [employer] [facility] Address [address] [place] [address] 7t [place] [address] Care Team Providers Care Head Of Music Name Role Phone Oralia Aguila MD Primary Care Provider [phone] Zeinab Sykes MD Primary Care Provider + Reason for Visit * Reason Onset Date Comments Med Refill 05/05/2023 Encounter Details Date Type Department Care Team (Late st Contact Info) Description 05/05/2023 Refill [facility] MEDICINE [address] [place], [place] [phone] Oralia Aguila MD [address] [place], [place] [phone] Other intervertebral disc displacement, lumbar region Social [...] 5- 325 MG tablet to besent to [facility] [place], [place] - [address] [facility] documented in this encounter Plan of Treatment Upcoming Encounters Date Type Department Care Team (Late st Contact Info) Description 09/25/2024 9:45 AM EDT Office Visit [facility] [place] [address] 10/09/2024 11:45 AM EDT Office Visit [facility] MEDICINE [address] [place] [address] [place] [address] documented as of this encounter Goals Goal Patient Goal Type Associated Problems Recent Progress Patient-Stated? Author Patient will manage their medication General On track( 023 11:18 AM EDT) Citlali Ocampo, PharmD Note: Began medboxes. Goal achieved 11/19/22. Patient graduated from [facility]. documented as of this encounter Visit Diagnoses Diagnosis Other intervertebral disc displacement, lumbar region documented in this encounter Care Teams Head Of Music Relationship Specialty Start Date End Date [place] [address] PCP - General Family Medicine 04/26/23 01/01/24 Zeinab Sykes MD [address] [place] [phone] PCP - General Internal Medicine 01/02/24 Tomeka Martins Vp IntegrityAir Control Electronics Operator 10/27/23 documented as of this encounter
--- OUTSIDE RECORDS SUMMARY | 2024-08-31 14:05 | XMS_ITS | Encounter Summary ---
Author Organization [employer] Address [address] [place] [address] 7t [place] [address] Care Team Providers Care Wrapper Opener Name Role Phone Zeinab Sykes MD Primary Care Provider + Reason for Visit * Reason Onset Date Comments Med Refill 08/03/2024 Encounter Details Date Type Department Care Team (Late st Contact Info) Description 08/03/2024 Refill [facility] MEDICINE [address] [place], [place] [phone] Zeinab Sykes MD [address] [place] [address] Other intervertebral disc displacement, lumbar region Social [...] MG tablet () To be sent to: [facility] documented in this encounter Plan of Treatment Upcoming Encounters Date Type Department Care Team (Late st Contact Info) Description 09/25/2024 9:45 AM EDT Office Visit [facility] MEDICINE [address] [place] [phone] 10/09/2024 11:45 AM EDT Office Visit [facility] MED[facility] [address] [place] [address] Zeinab Sykes MD [address] [place] [phone] documented as of this encounter Goals Goal Patient Goal Type Associated Problems Recent Progress Patient-Stated? Author Patient will manage their medication General On track( 023 11:18 AM EDT) No Citlali Armando, Anoop Note: Began medboxes. Goal achieved 11/19/22. Patient graduated from [facility]. documented as of this encounter Visit Diagnoses Diagnosis Other intervertebral disc displacement, lumbar region documented in this encounter Additional Health Concerns Assessment Noted Time PHQ-9 Depression Total Score: 18 024 1:46 PM EDT documented as of this encounter Care Teams Wrapper Opener Relationship Specialty Start Date End Date Zeinab Sykes MD [address] [place] [phone] PCP - General Internal Medicine 01/02/24 Tomeka Martins Courtroom ReporterWiring Technician 10/27/23 documented as of this encounter
--- OUTSIDE RECORDS SUMMARY | 2024-08-31 14:05 | XMS_ITS | Encounter Summary ---
Author Organization [employer] Address [address] [facility] 7t [place] [address] Care Team Providers Care Province Archivist Name Role Phone Zeinab Sykes MD Primary Care Provider + Reason for Visit * Reason Onset Date Comments Durable Medical Equipment 08/01/2024 10 In 1 pillow Encounter Details Date Type Department Care Team ([facility] st Contact Info) Description 08/01/2024 Telephone [facility] [address] [place] [address] Zeinab Sykes MD [address] [place] [address] Durable Medical Equipment (10 In 1 pillow/) [...] Description 09/25/2024 9:45 AM EDT Office Visit [facility] MEDICINE [address] [place] [phone] 10/09/2024 11:45 AM EDT Office Visit [facility] MED[facility] [address] [place] [address] Zeinab Sykes MD [address] [place] [phone] documented as of this encounter Goals Goal [...] documented as of this encounter Care Teams Province Archivist Relationship Specialty Start Date End Date Zeinab Sykes MD [address] [place] [address] PCP - General Internal Medicine 01/02/24 Tomeka Martins Publications Distribution ClerkLead Based Paint Technician 10/27/23 documented as of this encounter
--- OUTSIDE RECORDS SUMMARY | 2024-08-31 14:05 | XMS_ITS | Encounter Summary ---
Author Organization [employer] [facility] Address [address] [place] [address] 7t [place] [address] Care Team Providers Care Security Manager Name Role Phone Oralia Aguila MD Primary Care Provider [phone] Zeinab Sykes MD Primary Care Provider + Reason for Visit * Reason Comments Med Refill Encounter Details Date Type Department Care Team (Late Contact Info) Description 07/06/2023 Refill [facility] [address] [place] [address] Bryn Franklin MD [address] [place] [address] Social History Tobacco Use Types Packs/Day Years [...] Description 09/25/2024 9:45 AM EDT Office Visit [facility] [address] [place] [address] [phone] 10/09/2024 11:45 AM EDT Office Visit [facility] [address] [place] [address] [phone] Zeinab Sykes MD [address] [place] [address] documented as of this encounter Goals Goal Patient Goal Type Associated Problems Recent Progress Patient-Stated? Author Patient will manage their medication General On track( 023 11:18 AM EDT) Citlali Ocampo, Anoop Note: Began medboxes. Goal achieved 11/19/22. Patient graduated from [facility]. documented as of this encounter Visit Diagnoses Not on filedocumented in this encounter Care Teams Security Manager Relationship Specialty Start Date End Date Oralia Aguila MD [address] [place] [phone] PCP - General Family Medicine 04/26/23 01/01/24 Zeinab Sykes MD [address] [place] [address] PCP - General Internal Medicine 01/02/24 Tomeka Martins Spa AttendantElectric Locomotive Firer/Fireman 10/27/23 documented as of this encounter
--- OUTSIDE RECORDS SUMMARY | 2024-08-31 14:05 | XMS_ITS | Encounter Summary ---
Author Organization [facility] Address [address] [facility] 7t [place] [address] Care Team Providers Care Resource Conservationist Name Role Phone Zeinab Sykes MD Primary Care Provider + Encounter Details Date Type Department Care Team ([facility] st Contact Info) Description 08/03/2024 3:30 PM EST Office Visit [facility] ADULT DENTAL [address] [place] [address] Gay Thompson, DDS [address] [place] [address] Fracture of removable partial denture (Primary Dx) [...] of this encounter Progress Notes * Gay Tohmpson DDS - 08/03/2024 3:30 PM EST Patient ID: Rhonda Mclaughlin is a 63 y.o. female. Time Out: No data recorded Location: [facility] Tooth: Mandible Procedure: Dentures fracture Verified the above with patient, team assistant, and provider. Confirmed via patient's chart, intraorally and by radiographs. Small Animal Veterinarian: not applicable Chief complaint: Fractured denture Medical [...] they finally detached. Lower RPD sent to [facility] for repair. [place]: delivery repaired RPD Engineering Executive: Shannon Velasquez Dentist: Gay Thompson DDS documented in this encounter Plan of Treatment Upcoming Encounters Date Type Department Care Team (Late st Contact Info) Description 09/25/2024 9:45 AM EDT Office Visit [facility] MEDICINE [address] [place] [address] [phone] 10/09/2024 11:45 AM EDT Office Visit [facility] MEDICINE [address] [place] [address] [phone] Zeinab Sykes MD [address] [place] [address] [phone] Scheduled Orders Name Type Priority Associated Diagnoses Orde r Schedule DENTAL LAB DENTURES AND PARTIALS Dental Routine Ordered: 025 documented as of this encounter Goals Goal Patient Goal Type Associated Problems Recent Progress Patient-Stated? Author Patient will manage their medication General On track( 023 11:18 AM EDT) Citlali Ocampo, PharmD Note: Began medboxes. Goal achieved 11/19/22. Patient graduated from [facility]. documented as of this encounter Procedures Procedure [...] documented as of this encounter Care Teams Resource Conservationist Relationship Specialty Start Date End Date Zeinab Sykes MD [address] [place] [address] 67[address] PCP - General Internal Medicine 01/02/24 Tomeka Martins Paper Guillotine OperatorGuide Delegate 10/27/23 documented as of this encounter
--- OUTSIDE RECORDS SUMMARY | 2024-08-31 14:05 | XMS_ITS | Encounter Summary ---
Author Organization [facility] Address [address] [place] [address] 7t [place] [address] Care Team Providers Care Beef Cattle Farmer Name Role Phone Oralia Aguila MD Primary Care Provider [phone] Zeinab Sykes MD Primary Care Provider + Reason for Visit * Reason Comments Med Refill Encounter Details Date Type Department Care Team (Late Contact Info) Description 09/21/2023 Refill [facility] MEDICINE [address] [place] [phone] Oralia Aguila MD [address] [place], [place] [phone] Neuropathy Social History Tobacco Use Types Packs/Day [...] Upcoming Encounters Date Type Department Care Team ([facility] Contact Info) Description 09/25/2024 9:45 AM EDT Office Visit [facility] MED[facility]INE [address] [place] [address] [phone] 10/09/2024 11:45 AM EDT Office Visit [facility] MED[facility]INE [address] [place] [phone] Zeinab Sykes MD [address] [place] [phone] documented as of this encounter Goals Goal Patient Goal Type Associated Problems Recent Progress Patient-Stated? Author Patient will manage their medication General On track( 023 11:18 AM EDT) Citlali Ocampo, Anoop Note: Began medboxes. Goal achieved 11/19/22. Patient graduated from [facility]. documented as of this encounter Visit Diagnoses Diagnosis Neuropathy Mononeuritis of unspecified site documented in this encounter Care Teams Beef Cattle Farmer Relationship Specialty Start Date End Date Oralia Aguila MD [address] [place] [address] [phone] PCP - General Family Medicine 04/26/23 01/01/24 Zeinab Sykes MD [address] [place] [address] 495[address] PCP - General Internal Medicine 01/02/24 Tomeka Martins Bag PrinterRegulatory Compliance Director 10/27/23 documented as of this encounter
--- OUTSIDE RECORDS SUMMARY | 2024-08-31 14:05 | XMS_ITS | Encounter Summary ---
Author Organization [employer] Address [address] [facility] 7t [place] [address] Care Team Providers Care Charge Weigher Name Role Phone Zeinab Sykes MD Primary [...] 9:45 AM EDT Office Visit [facility] MED[facility]INE [address] [place] [address] [phone] 10/09/2024 11:45 AM EDT Office Visit [facility] MED[facility]INE [address] [place] [address] [phone] Zeinab Sykes MD [address] [place] [address] documented as of this encounter Goals Goal Patient Goal Type Associated Problems Recent Progress Patient-Stated? Author Patient will manage their medication General On track( 023 11:18 AM EDT) Citlali Ocampo PharmD Note: Began medboxes. Goal achieved 11/19/22. Patient graduated from [facility]. documented as of this encounter Visit Diagnoses Not on filedocumented in this encounter Additional Health Concerns Assessment Noted Time PHQ-9 Depression Total Score: 18 024 1:46 PM EDT documented as of this encounter Care Teams Charge Weigher Relationship Specialty Start Date End Date Zeinab Sykes MD [address] [place] [address] PCP - General Internal Medicine 01/02/24 Tomeka Martins Fine Grade OperatorElectrical Engineering Intern 10/27/23 documented as of this encounter
--- OUTSIDE RECORDS SUMMARY | 2024-08-31 14:05 | XMS_ITS | Encounter Summary ---
Author Organization [employer] Address [address] [facility] 7t [place] [address] Care Team Providers Care Stone Carriage Operator Name Role Phone Zeinab Sykes MD [...] Description 09/25/2024 9:45 AM EDT Office Visit [facility] MEDICINE [address] [place] [address] [phone] 10/09/2024 11:45 AM EDT Office Visit [facility] MED[facility]INE [address] [place] [address] [phone] Zeinab Sykes MD [address] [place] [phone] documented as of this encounter Goals Goal [...] documented as of this encounter Care Teams Stone Carriage Operator Relationship Specialty Start Date End Date Zeinab Sykes MD [address] [place] [address] PCP - General Internal Medicine 01/02/24 Tomeka Martins Supervisor Plate FormingGamemaster 10/27/23 documented as of this encounter
--- OUTSIDE RECORDS SUMMARY | 2024-08-31 14:05 | XMS_ITS | Encounter Summary ---
Author Organization [facility] Address [address] [place] [address] 7t [place] [address] Care Team Providers Care Urologist Physician Name Role Phone Oralia Aguila MD Primary Care Provider [phone] Zeinab Sykes MD Primary Care Provider + Reason for Visit * Reason Onset Date Comments antibiotics pre med 07/19/2023 Encounter Details Date Type Department Care Team ([facility] st Contact Info) Description 07/19/2023 Telephone [facility] ADULT DENTAL [address] [place] [address] AttStefany terry, DDS [address] [place], [place] [phone] antibiotics pre med Social History Tobacco Use [...] Description 09/25/2024 9:45 AM EDT Office Visit [address] [address] 10/09/2024 11:45 AM EDT Office Visit [address] [address] Zeinab Sykes MD [address] [place] [address] documented as of this encounter Goals Goal Patient Goal Type Associated Problems Recent Progress Patient-Stated? Author Patient will manage their medication General On track( 023 11:18 AM EDT) Citlali Ocampo, Anoop Note: Began medboxes. Goal achieved 11/19/22. Patient graduated from [facility]. documented as of this encounter Visit Diagnoses Not on filedocumented in this encounter Care Teams Urologist Physician Relationship Specialty Start Date End Date Oralia Aguila MD [address] [place] [address] PCP - General Family Medicine 04/26/23 01/01/24 Zeinab Sykes MD [address] [place] [address] PCP - General Internal Medicine 01/02/24 Tomeka Martins Shooter HelperMachine Operator General 10/27/23 documented as of this encounter
--- OUTSIDE RECORDS SUMMARY | 2024-08-31 14:05 | XMS_ITS | Encounter Summary ---
Author Organization [employer] Address [address] [place] [address] 7t [place] [address] Care Team Providers Care Welt Cutter Name Role Phone Zeinab Sykes MD Primary Care Provider + Reason for Visit * Reason Onset Date Comments ADJUNCT PROFESSOR OF ENGLISH: Tier System 07/31/2024 Encounter Details Date Type Department Care Team ([facility] Contact Info) Description 07/31/2024 Telephone [facility] MED & PEDS [address] [place] [address] Alma Jha FNP [address] [place] [address] ADJUNCT PROFESSOR OF ENGLISH: Tier System Social History Tobacco Use Types [...] be assigned (see below). Since her last ADJUNCT PROFESSOR OF ENGLISH agreement (03/13/24) all of her ADJUNCT PROFESSOR OF ENGLISH visits - utox/pill counts have been as expected. There was one abnormal in office in May 2024, but confirmatory was normal. Please see timeline below. 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, s/p vagus nerve stimulator, neuropathy Last ADJUNCT PROFESSOR OF ENGLISH Agreement: 03/13/24 Timeline: 10/11/23: Group - WNL [...] 9:45 AM EDT Office Visit [facility] MEDICINE [address] [place] [address] [phone] 10/09/2024 11:45 AM EDT Office Visit [facility] MEDICINE [address] [place] [address] [phone] Zeinab Sykes MD [address] [place] [address] documented as of this encounter Goals Goal [...] documented as of this encounter Care Teams Welt Cutter Relationship Specialty Start Date End Date Zeinab Sykes MD [address] [place] [address] PCP - General Internal Medicine 01/02/24 Tomeka Martins Paper ConservatorDirector Religious Education 10/27/23 documented as of this encounter
--- OUTSIDE RECORDS SUMMARY | 2024-08-31 14:05 | XMS_ITS | Encounter Summary ---
Author Organization [facility] Address [address] [place] [address] 7t [place] [address] Care Team Providers Care Seam Finisher Name Role Phone Evelyn Ledesma Primary Care Provider [phone] Oralia Aguila MD Primary Care Provider [phone] Zeinab Sykes MD Primary Care Provider + Encounter Details Date Type Department Care Team (Latest Contact Info) Description 10/30/2020 Abstract [facility] CONVERSION[facility] Dental, Provider, DDS Social History Tobacco [...] 9:45 AM EDT Office Visit [facility] MEDICINE [address] [place] [address] [phone] 10/09/2024 11:45 AM EDT Office Visit [facility] MED[facility]INE [address] [place] [address] [phone] Zeinab Sykes MD [address] [place] [address] [phone] documented as of this encounter Visit Diagnoses Not on filedocumented in this encounter Care Teams Seam Finisher Relationship Specialty Start Date End Date Evelyn Ledesma FNP PCP - General Family Medicine 03/15/22 04/25/23 Oralia Aguila MD [address] [place] [address] PCP - General Family Medicine 04/26/23 01/01/24 Zeinab Sykes MD [address] [place] [address] PCP - General Internal Medicine 01/02/24 Tomeka Martins Unit Control ClerkCarburetor Expert 10/27/23 documented as of this encounter
--- OUTSIDE RECORDS SUMMARY | 2024-08-31 14:05 | XMS_ITS | Encounter Summary ---
Author Organization [employer] Address [address] [place] [address] 7t [place] [address] Care Team Providers Care Strategic Debriefing Officer Name Role Phone Zeinab Sykes MD Primary Care Provider + Reason for Visit * Reason Onset Date Comments Med Refill 08/20/2024 Encounter Details Date Type Department Care Team (Late st Contact Info) Description 08/20/2024 Refill [facility] MEDICINE [address] [place], [place] [phone] Zeinab Sykes MD [address] [place], [place] [phone] Type 2 diabetes mellitus without complication, without long-term current use of insulin ([facility]); Other intervertebral disc displacement, lumbar region Social [...] 5 % patch To be sent to: [facility] - [place], [place] - [address] [place] [address] documented in this encounter Plan of Treatment Upcoming Encounters Date Type Department Care Team ([facility] st Contact Info) Description 09/25/2024 9:45 AM EDT Office Visit [facility] MEDICINE [address] [place] [phone] 10/09/2024 11:45 AM EDT Office Visit [facility] MED[facility]INE [address] [place] [address] Zeinab Sykes MD [address] [place] [address] documented as of this encounter Goals Goal Patient Goal Type Associated Problems Recent Progress Patient-Stated? Author Patient will manage their medication General On track( 023 11:18 AM EDT) Citlali Ocampo, Anoop Note: Began medboxes. Goal achieved 11/19/22. Patient graduated from [facility]. documented as of this encounter Visit Diagnoses Diagnosis Type 2 diabetes mellitus without complication, without long-term current use of insulin ([facility]) Other intervertebral disc displacement, lumbar region documented in this encounter Additional Health Concerns Assessment Noted Time PHQ-9 Depression Total Score: 22 025 10:31 AM EST documented as of this encounter Care Teams Strategic Debriefing Officer Relationship Specialty Start Date End Date Zeinab Sykes MD [address] [place] [address] PCP - General Internal Medicine 01/02/24 Tomeka Martins Aws Software Development EngineerDelivery And Installation Subcontractor 10/27/23 documented as of this encounter
--- OUTSIDE RECORDS SUMMARY | 2024-08-31 14:05 | XMS_ITS | Encounter Summary ---
Author Organization [employer] Address [address] [facility] 7t [place] [address] Care Team Providers Care Pulvi Mixer Operator Name Role Phone Zeinab Sykes MD Primary Care Provider + Reason for Visit * Reason Comments Pre-visit Planning (Unable to reach for PVP screening, LVM) Encounter Details Date Type Department Care Team ([facility] Contact Info) Description 08/03/2024 Patient Outreach [facility] MEDICINE [address] [place] [address] Zeinab Sykes MD [address] [place] [address] Pre-visit Planning ((Unable to reach for PVP [...] Description 09/25/2024 9:45 AM EDT Office Visit [facility] MEDICINE [address] [place] [address] 10/09/2024 11:45 AM EDT Office Visit [facility] MEDICINE [address] [place] [address] Zeinab Sykes MD [address] [place] [address] documented as of this encounter Goals Goal Patient Goal Type Associated Problems Recent Progress Patient-Stated? Author Patient will manage their medication General On track( 023 11:18 AM EDT) No Citlali Armando, Anoop Note: Began medboxes. Goal achieved 11/19/22. Patient graduated from [facility]. documented as of this encounter Visit Diagnoses Not on filedocumented in this encounter Additional Health Concerns Assessment Noted Time PHQ-9 Depression Total Score: 18 024 1:46 PM EDT documented as of this encounter Care Teams Pulvi Mixer Operator Relationship Specialty Start Date End Date Zeinab Sykes MD [address] [place] [address] PCP - General Internal Medicine 01/02/24 Tomeka Martins Knitter HandApplication Software Developer 10/27/23 documented as of this encounter
--- OUTSIDE RECORDS SUMMARY | 2024-08-31 14:06 | XMS_ITS | Encounter Summary ---
Author Organization [employer] Address [address] [place] [address] 7t [place] [address] Care Team Providers Care Metal Sponge Making Machine Operator Name Role Phone Zeinab Sykes MD Primary Care Provider + Reason for Visit * Reason Onset Date Comments Med Refill 08/31/2024 Encounter Details Date Type Department Care Team (Late st Contact Info) Description 08/31/2024 Refill [facility] MEDICINE [address] [place], [place] [phone] Zeinab Sykes MD [address] [place] [address] Other intervertebral disc displacement, lumbar region Social [...] encounter Miscellaneous Notes * Telephone Encounter - Darius Tom - 08/31/2024 10:35 AM EST TC from pt requesting medication refill. Medications needing refill : oxyCODONE-acetaminophen (Percocet) 5-325 MG tablet To be sent to: [facility] - [place], [place] - [address] [place] [address] documented in this encounter Plan of Treatment Upcoming Encounters Date Type Department Care Team ([facility] st Contact Info) Description 09/25/2024 9:45 AM EDT Office Visit [facility] MEDICINE [address] [place] [address] 10/09/2024 11:45 AM EDT Office Visit [facility] MEDICINE [address] [place] [address] Zeinab Sykes MD [address] [place] [phone] documented as of this encounter Goals Goal Patient Goal Type Associated Problems Recent Progress Patient-Stated? Author Patient will manage their medication General On track( 023 11:18 AM EDT) No Citlali Armando, Anoop Note: Began medboxes. Goal achieved 11/19/22. Patient graduated from [facility]. documented as of this encounter Visit Diagnoses Diagnosis Other intervertebral disc displacement, lumbar region documented in this encounter Additional Health Concerns Assessment Noted Time PHQ-9 Depression Total Score: 22 025 10:31 AM EST documented as of this encounter Care Teams Metal Sponge Making Machine Operator Relationship Specialty Start Date End Date Zeinab Sykes MD [address] [place] [address] PCP - General Internal Medicine 01/02/24 Tomeka Martins Hog ScraperWind Energy Engineer 10/27/23 documented as of this encounter
--- OUTSIDE RECORDS SUMMARY | 2024-08-31 14:06 | XMS_ITS | Encounter Summary ---
Author Organization [employer] Address [address] [facility] 7t [place] [address] Care Team Providers Care Lamps Tester And Inspector Name Role Phone Zeinab Sykes MD Primary Care Provider + Reason for Visit * Reason Comments Med Refill Encounter Details Date Type Department Care Team ([facility] st Contact Info) Description 08/29/2024 Refill [facility] [address] [place] [address] Oralia Aguila MD [address] [place] [address] Social History Tobacco Use Types Packs/Day Years [...] Description 09/25/2024 9:45 AM EDT Office Visit [address] [address] 10/09/2024 11:45 AM EDT Office Visit [facility] MEDICINE [address] [place] [address] Zeinab Sykes MD [address] [place] [address] documented as of this encounter Goals Goal Patient Goal Type Associated Problems Recent Progress Patient-Stated? Author Patient will manage their medication General On track( 023 11:18 AM EDT) No Citlali Armando, Anoop Note: Began medboxes. Goal achieved 11/19/22. Patient graduated from [facility]. documented as of this encounter Visit Diagnoses Not on filedocumented in this encounter Additional Health Concerns Assessment Noted Time PHQ-9 Depression Total Score: 22 025 10:31 AM EST documented as of this encounter Care Teams Lamps Tester And Inspector Relationship Specialty Start Date End Date Zeinab Sykes MD [address] [place] [address] PCP - General Internal Medicine 01/02/24 Tomeka Martins Relations LiaisonSignal Intelligence/Electronic Warfare 10/27/23 documented as of this encounter
--- OUTSIDE RECORDS SUMMARY | 2024-08-31 14:06 | XMS_ITS | Encounter Summary ---
Author Organization [employer] Address [address] [facility] 7t [place] [address] Care Team Providers Care Air Brush Artist Name Role Phone Zeinab Sykes MD Primary Care Provider + Encounter Details Date Type Department Care Team ([facility] st Contact Info) Description 08/30/2024 Refill [facility] MEDICINE [address] [place], [place] [phone] Zeinab Sykes MD [address] [place] [address] Social History Tobacco Use Types Packs/Day Years [...] Description 09/25/2024 9:45 AM EDT Office Visit [facility] MED[facility] [address] [place] [address] 10/09/2024 11:45 AM EDT Office Visit [facility] MED[facility] [address] [place] [address] Zeinab Sykes MD [address] [place] [address] documented as of this encounter Goals Goal Patient Goal Type Associated Problems Recent Progress Patient-Stated? Author Patient will manage their medication General On track( 023 11:18 AM EDT) Citlali Ocampo PharmD Note: Began medboxes. Goal achieved 11/19/22. Patient graduated from [facility]. documented as of this encounter Visit Diagnoses Not on filedocumented in this encounter Additional Health Concerns Assessment Noted Time PHQ-9 Depression Total Score: 22 025 10:31 AM EST documented as of this encounter Care Teams Air Brush Artist Relationship Specialty Start Date End Date Zeinab Sykes MD [address] [place] [address] PCP - General Internal Medicine 01/02/24 Tomeka Martins Manager Of LearningOutbound Sales Executive 10/27/23 documented as of this encounter
--- OUTSIDE RECORDS SUMMARY | 2024-08-31 14:06 | XMS_ITS | Encounter Summary ---
Author Organization [employer] Address 75 [facility] 7t [place] [address] Care Team Providers Care Heddler Name Role Phone Zeinab Sykes MD Primary Care Provider + Reason for Visit * Reason Onset Date Comments Results 08/27/2024 Encounter Details Date Type Department Care Team ([facility] Contact Info) Description 08/27/2024 Telephone [facility] [address] [place], [place] [phone] Zeinab Sykes MD [address] [place] [address] Results Social History Tobacco Use Types Packs/Day Years [...] encounter Miscellaneous Notes * Telephone Encounter - Ashley Cosby RN - 08/28/2024 4:57 PM EST TC placed to pt, Arthena ID: [id number], regarding message below per Dr. Snider. Pt verbalized understanding and reports what do they recommend as feel same but have appt with pulmonology on Tuesday. Pt reports she completed abx. RN reviewed provider recommendations from visit 08/21/24 with pt and returning to [facility] if no improvement. Pt verbalized understanding. No further questions or concerns expressed at this time. Pt to F/U as needed. I had called her, but no answer. If you are able to connect with her, please inform her her CXR showed normal lung findings. It did show some arthritic changes in her spine. * Telephone Encounter - Yonathan Snider MD - 08/27/2024 4:57 PM EST I had called her, but no answer. If you are able to connect with her, please inform her her CXR showed normal lung findings. It did show some arthritic changes in her spine. * Telephone Encounter - Ashley Cosby RN - 08/27/2024 3:50 PM EST See message below. RN will forward to ordering provider Dr. Snider to review and advise team nurses. TC from pt requesting call back regarding Results. Type of results: X-RAY Date when done: 08/22/2023 Facility: [facility] * Telephone Encounter - Nancy Slade - 08/27/2024 3:35 PM EST TC from pt requesting call back regarding Results. Type of results: X-RAY Date when done: 08/22/2023 Facility: [facility] documented in this encounter Plan of Treatment Upcoming Encounters Date Type Department Care Team (Late st Contact Info) Description 09/25/2024 9:45 AM EDT Office Visit [facility] [address] [place] [address] 10/09/2024 11:45 AM EDT Office Visit [facility] [address] [place] [address] Zeinab Sykes MD [address] [place] [address] documented as of this encounter Goals Goal Patient Goal Type Associated Problems Recent Progress Patient-Stated? Author Patient will manage their medication General On track( 023 11:18 AM EDT) Citlali Ocampo PharmD Note: Began medboxes. Goal achieved 11/19/22. Patient graduated from [facility]. documented as of this encounter Visit Diagnoses Not on filedocumented in this encounter Additional Health Concerns Assessment Noted Time PHQ-9 Depression Total Score: 22 025 10:31 AM EST documented as of this encounter Care Teams Heddler Relationship Specialty Start Date End Date Zeinab Sykes MD [address] [place] [address] PCP - General Internal Medicine 01/02/24 Tomeka Martins Support StaffApplication Support Manager 10/27/23 documented as of this encounter
[2024-08-31 14:08] VITALS: BP 110/70; PULSE 80; O2SAT 96; BMI 36.6
--- NOTE | 2024-08-31 14:08 | A.OFFVIS_ITS ---
Vital Signs 08/31/24 14:08 Height 5 ft 2 in Weight 200 lb BMI 36.6 BP 110/70 Blood Pressure Location Rt brachial Position Sitting Pulse 80 Pulse Source Doppler Pulse Oximetry (%) 96 Oxygen Delivery Method Room Air Intake Visit Reasons: cough and wheeze Gps Navigation Installer Required: Yes Gps Navigation Installer Name: Jayne Slade C.L.Yandy Allergies No Known Drug Allergies Allergy (Unknown, Verified 08/31/24 14:22) none pineapple [PINEAPPLE] Allergy (Unknown, Verified 08/31/24 14:22) TONGUE SWELLS latex Allergy (Verified 08/31/24 14:22) Unknown HPI HPI cough and wheeze: Details: 63-year-old lady, nonsmoker, with underlying history of asthma since 5 years of age, now followed for moderate persistent asthma and environmental allergies. Patient has been using Symbicort and albuterol MDI with good baseline control. She does have an ongoing exacerbation after recent viral infection still symptomatic with significant cough and some wheezing, but no dyspnea or sputum production. [facility] Medical History (Updated 08/31/24 @ 14:36 by Brayan Jensen MD) Environmental allergies Hypertension Primary osteoarthritis of left knee Primary osteoarthritis of right knee Hemorrhoids Diverticulosis large intestine w/o perforation or abscess w/o bleeding Encounter for screening colonoscopy Preoperative cardiovascular examination HART (dyspnea on exertion) Epigastric pain Chronic cough Gastric outlet obstruction Complications of bariatric procedures Pre-syncope Encounter for well woman exam with routine gynecological exam Postmenopausal bleeding Elevated cholesterol Full dentures Low back pain COVID-19 vaccine series completed Asthma Palpitations Diabetes mellitus Obesity Erosive osteoarthritis Primary osteoarthritis of knees, bilateral Surgical History H/O perineoplasty H/O bariatric surgery Status post total right knee replacement History of bladder surgery History of total bilateral knee replacement Hx of colonoscopy Hx of reduction mammoplasty Hx of tonsillectomy History of H/O Spinal surgery Family History Mother Hx of acute arthritis Father History of Parkinson's disease Social History Household Members Other:: Daughter Housing: House Are you a primary hospice care sales consultant to a significant other at home: No Do you presently have visiting nurse or other home services: No Alcohol intake: never Patient Tobacco Use Status: Never used Tobacco Current occupational status: disabled Current occupation: rt handed Sexual orientation: Straight/Heterosexual Gender identity: Female Review of Systems Const Denies daytime sleepiness, Denies excessive sweating, Denies fatigue, Denies fever(s), Denies lethargy, Denies malaise, Denies night sweats, Denies snoring and Denies weight loss Eyes Denies blurry vision and Denies itchy eyes ENT Denies nasal congestion, Denies post nasal drip, Denies sinus pain, Denies sinus pressure and Denies other ( Thrush) Card Denies chest pain, Denies pedal edema, Denies dyspnea, Denies orthopnea and Denies paroxysmal nocturnal dyspnea Resp Denies cough, Denies hemoptysis, Denies excessive phlegm production, Denies dyspnea, Denies snoring and Denies wheezing GI Denies abdominal pain and Denies heartburn Musc Denies myalgias, Denies arthralgias and Denies joint swelling Skin/Breast Denies rash Neuro Denies memory loss and Denies seizure-like activity Psych Denies abnormal sleep pattern, Denies anxiety and Denies memory loss Endo Denies excessive sweating, Denies fatigue and Denies heat intolerance Dwayne/Lymph Denies easy bruising Aller/Immun Denies itchy eyes, Denies seasonal rhinorrhea and Denies wheezing Physical Exam Vital Signs: Last Vital Signs Pulse 80 08/31/24 14:08 BP 110/70 08/31/24 14:08 Pulse Ox 96 08/31/24 14:08 Oxygen Delivery Method Room Air 08/31/24 14:08 BMI result Body Mass Index 36.6 Const General: no acute distress and alert Nutritional Appearance: obese Orientation/consciousness: Other orientation findings ( oriented) HEENT Head: Yes atraumatic Eyes General: appearance normal, both eyes and all related structures Sclerae: sclerae normal EOM: EOMs intact bilaterally Neck Neck: Yes supple Lymphatic: no lymphadenopathy noted Resp Effort & Inspection: normal respiratory effort and no use of accessory muscles Auscultation: clear to auscultation bilaterally Cardio Rate: regular rate Rhythm: regular rhythm Heart sounds: no gallops, no murmurs and no rubs Skin General skin exam: other ( warm) Extrem General: No clubbing, No cyanosis and No edema Assessment & Plan Assessment & Plan (1) Asthma: Code(s): J45.909 - Unspecified asthma, uncomplicated Category: Medical Plan: Baseline well controlled on Symbicort and albuterol MDI. Continue current regimen. Now with an acute exacerbation, will treat with a prednisone taper. (2) Environmental allergies: Code(s): Z91.09 - Other allergy status, other than to drugs and biological substances Category: Medical Plan: Well controlled on as needed cetirizine. Continue current regimen. Medications: New prednisone Take 4 pills daily for 5 days, then go down by 1 tab every 5 days 10 mg PO DIRECTED 50 tabs 0RF Coding Level of Care Code Est Pt Level 4 (60974) Diagnoses Asthma J45.909 Environmental allergies Z91.09
== END 2024-08-31 14:34 | disposition home or self-care (01) ==
PROVIDERS: Visit Provider Internal Medicine Pulmonary Disease
DX: J45.909 Unspecified asthma, uncomplicated (principal); Z91.09 Other allergy status, other than to drugs and biological substances
CPT/HCPCS: 99214

== ENCOUNTER → 2024-08-31 14:01 | Outpatient (BNVA) | payer MEDICAID, SELFPAY | PROVIDERS: Visit Provider Internal Medicine Pulmonary Disease | DX: J45.909 Unspecified asthma, uncomplicated (principal); Z91.09 Other allergy status, other than to drugs and biological substances | CPT/HCPCS: 99212 ==

== ENCOUNTER → 2024-09-11 20:30 | Outpatient (REF) | payer MEDICAID, SELFPAY ==
--- OUTSIDE RECORDS SUMMARY | 2024-09-11 21:10 | XMS_ITS | Encounter Summary ---
Author Organization [facility] Address 75 [facility] 7t [place] [address] Care Team Providers Care Airfield Operations Specialist Name Role Phone Evelyn Ledesma Primary Care Provider [phone] Oralia Aguila MD Primary Care Provider [phone] Zeinab Sykes MD Primary Care Provider + Encounter Details Date Type Department Care Team ([facility] [place] Contact Info) Description 10/22/2022 Orders Only [facility] [address] [place] [address] Evelyn Ledesma FNP [address] [place] [address] Dept [place] [address] Social History Tobacco Use Types Packs/Day Years [...] Upcoming Encounters Date Type Department Care Team ([facility] [place] Contact Info) Description 09/25/2024 9:45 AM EDT Office Visit [facility] [address] [place] [address] 10/09/2024 11:45 AM EDT Office Visit [address] [phone] Zeinab Sykes MD [address] [place] [address] documented as of this encounter Visit Diagnoses Not on filedocumented in this encounter Care Teams Airfield Operations Specialist Relationship Specialty Start Date End Date Evelyn Ledesma FNP PCP - General Family Medicine 03/15/22 04/25/23 Oralia Aguila MD [address] [place] [address] PCP - General Family Medicine 04/26/23 01/01/24 Zeinab Sykes MD [address] [place] [address] PCP - General Internal Medicine 01/02/24 Tomeka Martins College CoachApprentice Painter Brush 10/27/23 documented as of this encounter
--- OUTSIDE RECORDS SUMMARY | 2024-09-11 21:10 | XMS_ITS | Encounter Summary ---
Author Organization [employer] [facility] Address [address] [place] [address] 7t [place] [address] Care Team Providers Care Protection Mgr Name Role Phone Evelyn Ledesma Primary Care Provider [phone] Oralia Aguila MD Primary Care Provider [phone] Zeinab Sykes MD Primary Care Provider + Reason for Visit * Reason Onset Date Comments Appointment Request 12/20/2022 Encounter Details Date Type Department Care Team (Late st Contact Info) Description 12/20/2022 Telephone [facility] MEDICINE [address] [place] [address] Evelyn Ledesma FNP [address] [place] [address] Dept [place] [address] Appointment Request Social History Tobacco Use Types [...] an earlier day) Please contact pt at [phone] documented in this encounter Plan of Treatment Upcoming Encounters Date Type Department Care Team (Late st Contact Info) Description 09/25/2024 9:45 AM EDT Office Visit [facility] MED[facility]INE [address] [place] [address] 10/09/2024 11:45 AM EDT Office Visit [facility] MEDICINE [address] [place] [address] Zeinab Sykes MD [address] [place] [address] documented as of this encounter Goals Goal Patient Goal Type Associated Problems Recent Progress Patient-Stated? Author Patient will manage their medication General On track( 023 11:18 AM EDT) Citlali Ocampo PharmD Note: Began medboxes. Goal achieved 11/19/22. Patient graduated from [facility]. documented as of this encounter Visit Diagnoses Not on filedocumented in this encounter Care Teams Protection Mgr Relationship Specialty Start Date End Date Evelyn Ledesma FNP PCP - General Family Medicine 03/15/22 04/25/23 Oralia Aguila MD [address] [place] [address] PCP - General Family Medicine 04/26/23 01/01/24 Zeinab Sykes MD [address] [place] [address] PCP - General Internal Medicine 01/02/24 Tomeka Martins Ext Js DeveloperProduce Laborer 10/27/23 documented as of this encounter
--- OUTSIDE RECORDS SUMMARY | 2024-09-11 21:10 | XMS_ITS | Encounter Summary ---
Author Organization [employer] Address 75 [facility] 7t [place] [address] Care Team Providers Care Electrician Assistant Name Role Phone Evelyn Ledesma Primary Care Provider [phone] Oralia Aguila MD Primary Care Provider [phone] Zeinab Sykes MD Primary Care Provider + Reason for Visit * Reason Onset Date Comments case from lab 11/04/2022 Encounter Details Date Type Department Care Team (Late st Contact Info) Description 11/04/2022 Telephone [facility] [address] [place] [address] Asad Shore DDS [address] [place] [address] case from lab Social History Tobacco Use [...] 09/25/2024 9:45 AM EDT Office Visit [facility] [address] [place] [address] 10/09/2024 11:45 AM EDT Office Visit [address] [address] Zeinab Sykes MD [address] [place] [address] documented as of this encounter Visit Diagnoses Not on filedocumented in this encounter Care Teams Electrician Assistant Relationship Specialty Start Date End Date Evelyn Ledesma FNP PCP - General Family Medicine 03/15/22 04/25/23 Oralia Aguila MD [address] [place] [address] PCP - General Family Medicine 04/26/23 01/01/24 Zeinab Sykes MD [address] [place] [address] PCP - General Internal Medicine 01/02/24 Tomeka Martins Web DeveloperManager Art 10/27/23 documented as of this encounter
--- OUTSIDE RECORDS SUMMARY | 2024-09-11 21:10 | XMS_ITS | Encounter Summary ---
Author Organization [employer] [facility] Address [address] [place] [address] 7t [place] [address] Care Team Providers Care Apartment Maintenance Technician Name Role Phone Evelyn Ledesma Primary Care Provider [phone] Oralia Aguila MD Primary Care Provider [phone] Zeinab Sykes MD Primary Care Provider + Encounter Details Date Type Department Care Team (Late Contact Info) Description 08/20/2022 Orders Only [facility] MEDICINE [address] [place] [address] Karen Henderson FNP Social History Tobacco Use [...] Visit [facility] MED[facility]INE [address] [place] [address] 10/09/2024 11:45 AM EDT Office Visit [facility] MED[facility]INE [address] [place] [address] Zeinab Sykes MD [address] [place] [address] documented as of this encounter Visit Diagnoses Not on filedocumented in this encounter Care Teams Apartment Maintenance Technician Relationship Specialty Start Date End Date Evelyn Ledesma FNP PCP - General Family Medicine 03/15/22 04/25/23 Oralia Aguila MD [address] [place] [address] [phone] PCP - General Family Medicine 04/26/23 01/01/24 Zeinab Sykes MD [address] [place] [address] PCP - General Internal Medicine 01/02/24 Tomeka Martins Pilot Plant SupervisorTitle I Instructional Assistant 10/27/23 documented as of this encounter
--- OUTSIDE RECORDS SUMMARY | 2024-09-11 21:10 | XMS_ITS | Encounter Summary ---
Author Organization [employer] [facility] Address [address] [place] [address] 7t [place] [address] Care Team Providers Care Cigarette Examiner Name Role Phone Evelyn Ledesma Primary Care Provider [phone] Oralia Aguila MD Primary Care Provider [phone] Zeinab Sykes MD Primary Care Provider + Reason for Visit * Reason Onset Date Comments Prior Authorization 12/28/2022 Encounter Details Date Type Department Care Team (Late st Contact Info) Description 12/28/[address] [facility] [address] [place] [address] Evelyn Ledesma FNP [address] [place] [address] Dept [place] [address] Prior Authorization Social History Tobacco Use Types [...] AM EDT T/C placed to pt via [employer] Aide Zeinab #[id number]. Advised of message from pcp re: lab [...] all other NSAIDS. Do you have a transportation officer yet? If not, your PCP would like [...] 12/28/2022 10:18 AM EDT THOMAS Emery from [employer] requesting XL pull ups and disposable under pads . States faxed request couple days ago and have not gotten a response . Informs paper work 12/29/22. Please call to clarify at phone # [phone] . documented in this encounter Plan of Treatment Upcoming Encounters Date Type Department Care Team (Late st Contact Info) Description 09/25/2024 9:45 AM EDT Office Visit [facility] [address] [place] [address] 10/09/2024 11:45 AM EDT Office Visit [facility] [address] [place] [address] Zeinab Sykes MD [address] [place] [address] documented as of this encounter Goals Goal Patient Goal Type Associated Problems Recent Progress Patient-Stated? Author Patient will manage their medication General On track( 023 11:18 AM EDT) Citlali Ocampo, Anoop Note: Began medboxes. Goal achieved 11/19/22. Patient graduated from [facility]. documented as of this encounter Visit Diagnoses Not on filedocumented in this encounter Care Teams Cigarette Examiner Relationship Specialty Start Date End Date Evelyn Ledesma FNP PCP - General Family Medicine 03/15/22 04/25/23 Oralia Aguila MD [address] [place] [address] PCP - General Family Medicine 04/26/23 01/01/24 Zeinab Sykes MD [address] [place] [address] PCP - General Internal Medicine 01/02/24 Tomeka Martins PalletizerPsychology Tech 10/27/23 documented as of this encounter
--- OUTSIDE RECORDS SUMMARY | 2024-09-11 21:11 | XMS_ITS | Encounter Summary ---
Author Organization [employer] Address [address] [place] [address] 7t [place] [address] Care Team Providers Care Shot Hole Shooter Name Role Phone Zeinab Sykes MD Primary Care Provider + Reason for Referral * Hospital - Outpatient (Routine) - Authorized Specialty Diagnoses / Procedures Referred By Contac t Referred To Contact Diagnoses ADELAIDE (obstructive sleep apnea) Procedures Polysomnography Zeinab Sykes MD [address] [place] [address] Phone: tel: fax: [address] Phone: tel: fax: Referral ID Status Reason Start Date Expiration Date V isits Requested Visits Authorized [id number] Authorized 08/15/2024 08/15/2025 1 1 Reason for [...] Encounter Details Date Type Department Care Team ([facility] st Contact Info) Description 08/15/2024 10:15 AM EST Office Visit [facility] MEDICINE [address] [place], [place] [phone] Zeinab Sykes MD [address] [place] [address] Type 2 diabetes mellitus without complication, without [...] t he electric, gas, oil or water [employer] threatened to shut off services in your [...] 0.6 cm fibroid. She followed up with Dining Room Cashier and was surgically treated. Patient is compliant [...] Negative Final QC Media Lot # 08/15/2024 [id number] Final Lot# Expiration Date 08/15/2024 [id number] Final [...] the morning. ergocalciferol (Vitamin D2) 1.25 MG (73354 UT) capsule TAKE 1 CAPSULE BY MOUTH [...] days. 112 tablet 0 oxymetazoline (Afrin Nasal [place]) 0.05 % nasal spray Administer 2 sprays [...] Respiratory Therapy Supplies (Nebulizer) device sodium chloride (Ponce Nasal [place]) 0.65 % nasal spray Administer 1 spray [...] 09/25/2024 9:45 AM EDT Office Visit [facility] MEDICINE [address] [place] [address] 10/09/2024 11:45 AM EDT Office Visit [facility] MEDICINE [address] [place] [address] [phone] Zeinab Sykes MD [address] [place] [address] Scheduled Orders Name Type Priority Associated Diagnoses [...] complication, without long-term current use of insulin ([facility]) documented in this encounter Results * POCT Rapid Influenza A JI ID NOW (08/15/2024 11:29 AM EST) Influenza A Negative Negative, Indeterminate [facility] QC Media Lot # [id number] [facility] Lot# Expiration Date [facility] Swab 08/15/2024 11:2 9 AM EST Zeinab Sykes MD POINT OF CARE TEST ENTER /EDIT ORDERABLES Final Result Performing Organization Address [facility]/ZIP Co de Phone Number [facility] [address] [place] [phone] * POCT Rapid Covid-19 BinaxNOW (08/15/2024 11:29 AM EST) Rapid COVID Ag Negative [facility] QC Media Lot # [id number] [facility] Lot# Expiration Date [id number] [facility] Swab 08/15/2024 11:2 9 AM EST Zeinab Sykes MD POINT OF CARE TEST ENTER /EDIT ORDERABLES Final Result Performing Organization Address [facility]/ZIP Co de Phone Number [facility] [address] [place] [phone] * POCT Rapid Influenza B JI ID NOW (08/15/2024 11:28 AM EST) Influenza B Negative Negative, Indeterminate [facility] QC Media Lot # [id number] [facility] Lot# Expiration Date [facility] Swab 08/15/2024 11:2 8 AM EST Zeinab Sykes MD POINT OF CARE TEST ENTER /EDIT ORDERABLES Final Result Performing Organization Address City/[facility]/ZIP Co de Phone Number [facility] [address] [place] [address] [phone] * (ABNORMAL) POCT Glucose (08/15/2024 10:38 [...] complication, without long-term current use of insulin ([facility])- Primary Essential hypertension Unspecified essential hypertension Postmenopause bleeding Postmenopausal bleeding Recurrent major depressive disorder, in partial remission ([facility]) Moderate persistent asthma with acute exacerbation [...] documented as of this encounter Care Teams Shot Hole Shooter Relationship Specialty Start Date End Date Zeinab Sykes MD [address] [place] [address] PCP - General Internal Medicine 01/02/24 Tomeka Martins Human Services Case ManagerTwist Packer 10/27/23 documented as of this encounter
--- OUTSIDE RECORDS SUMMARY | 2024-09-11 21:11 | XMS_ITS | Clinical Summary ---
Author Organization [facility] Address [address] [place] [address] Care Team Providers Care Bed Spring Maker Name Role Phone Meryl Montes Primary Care Provider Surgical History Surgery Date Site/Laterality Comments BREAST REDUCTION PROCEDURE: GA BREAST REDUCTION BACK SURGERY PROCEDURE: HISTORICAL BACK [...] age to complete this topic Care Teams Bed Spring Maker Relationship Specialty Start Date End Date Meryl Montes [address] [place] [phone] PCP - General 05/07/22
--- OUTSIDE RECORDS SUMMARY | 2024-09-11 21:11 | XMS_ITS | Encounter Summary ---
Author Organization [employer] Address [address] [facility] 7t [place] [address] Care Team Providers Care Web Application Developer Name Role Phone Zeinab Sykes [...] EDT Office Visit [facility] MEDICINE [address] [place] [address] [phone] 10/09/2024 11:45 AM EDT Office Visit [facility] MED[facility]INE [address] [place] [address] [phone] Zeinab Sykes MD [address] [place] [address] documented as of this encounter Goals Goal Patient Goal Type Associated Problems Recent Progress Patient-Stated? Author Patient will manage their medication General On track( 023 11:18 AM EDT) Citlali Ocampo PharmD Note: Began medboxes. Goal achieved 11/19/22. Patient graduated from [facility]. documented as of this encounter Visit Diagnoses Not on filedocumented in this encounter Additional Health Concerns Assessment Noted Time PHQ-9 Depression Total Score: 18 024 1:46 PM EDT documented as of this encounter Care Teams Web Application Developer Relationship Specialty Start Date End Date Zeinab Sykes MD [address] [place] [address] PCP - General Internal Medicine 01/02/24 Tomeka Martins Medical Device SalesVeterans Service Officer 10/27/23 documented as of this encounter
--- OUTSIDE RECORDS SUMMARY | 2024-09-11 21:11 | XMS_ITS | Encounter Summary ---
Author Organization [employer] Address [address] [facility] 7t [place] [address] Care Team Providers Care Dual Rate Dealer Name Role Phone Zeinab Sykes MD Primary Care Provider + Reason for Visit * Reason Comments Med Refill Encounter Details Date Type Department Care Team ([facility] st Contact Info) Description 05/04/2024 Refill [facility] MEDICINE [address] [place], [place] [phone] Zeinab Sykes MD 230 [place] [address] Other intervertebral disc displacement, lumbar region Social [...] Office Visit [facility] MEDICINE [address] [place] [phone] 10/09/2024 11:45 AM EDT Office Visit [facility] MEDICINE [address] [place] [address] Zeinab Sykes MD [address] [place] [address] documented as of this encounter Goals Goal Patient Goal Type Associated Problems Recent Progress Patient-Stated? Author Patient will manage their medication General On track( 023 11:18 AM EDT) No Citlali Armando, PharmD Note: Began medboxes. Goal achieved 11/19/22. Patient graduated from [facility]. documented as of this encounter Visit Diagnoses Diagnosis Other intervertebral disc displacement, lumbar region documented in this encounter Additional Health Concerns Assessment Noted Time PHQ-9 Depression Total Score: 18 024 1:46 PM EDT documented as of this encounter Care Teams Dual Rate Dealer Relationship Specialty Start Date End Date Zeinab Sykes MD [address] [place] [address] PCP - General Internal Medicine 01/02/24 Tomeka Martins Industry Segment SpecialistWasher Repairman 10/27/23 documented as of this encounter
--- OUTSIDE RECORDS SUMMARY | 2024-09-11 21:11 | XMS_ITS | Encounter Summary ---
Author Organization [facility] Address [address] [place] [address] 7t [place] [address] Care Team Providers Care Telephoto Engineer Name Role Phone Evelyn Ledesma Primary Care Provider [phone] Oralia Aguila MD Primary Care Provider [phone] Zeinab Sykes MD Primary Care Provider + Encounter Details Date Type Department Care Team (Latest Contact Info) Description 10/30/2020 Abstract [facility] CONVERSIONS Dental, Provider, DDS Social [...] Description 09/25/2024 9:45 AM EDT Office Visit [facility] MEDICINE [address] [place] [address] [phone] 10/09/2024 11:45 AM EDT Office Visit [facility] MEDICINE [address] [place] [address] [phone] Zeinab Sykes MD [address] [place] [address] [phone] documented as of this encounter Visit Diagnoses Not on filedocumented in this encounter Care Teams Telephoto Engineer Relationship Specialty Start Date End Date Evelyn Ledesma FNP PCP - General Family Medicine 03/15/22 04/25/23 Oralia Aguila MD [address] [place] [address] PCP - General Family Medicine 04/26/23 01/01/24 Zeinab Sykes MD [address] [place] [address] PCP - General Internal Medicine 01/02/24 Tomeka Martins Poultry FarmerCake Former 10/27/23 documented as of this encounter
--- OUTSIDE RECORDS SUMMARY | 2024-09-11 21:11 | XMS_ITS | Encounter Summary ---
Author Organization [employer] Address [address] [facility] 7t [place] [address] Care Team Providers Care Mixing Plant Operator Name Role Phone Zeinab Sykes MD [...] Description 09/25/2024 9:45 AM EDT Office Visit [facility] MEDICINE [address] [place] [address] [phone] 10/09/2024 11:45 AM EDT Office Visit [facility] MEDICINE [address] [place] [address] [phone] Zeinab Sykes MD [address] [place] [address] documented as of this encounter Goals Goal Patient Goal Type Associated Problems Recent Progress Patient-Stated? Author Patient will manage their medication General On track( 023 11:18 AM EDT) Citlali Ocampo PharmD Note: Began medboxes. Goal achieved 11/19/22. Patient graduated from [facility]. documented as of this encounter Visit Diagnoses Not on filedocumented in this encounter Additional Health Concerns Assessment Noted Time PHQ-9 Depression Total Score: 22 025 10:31 AM EST documented as of this encounter Care Teams Mixing Plant Operator Relationship Specialty Start Date End Date Zeinab Sykes MD [address] [place] [address] PCP - General Internal Medicine 01/02/24 Tomeka Martins Pediatric Care CoordinatorPattern Cleaner 10/27/23 documented as of this encounter
--- OUTSIDE RECORDS SUMMARY | 2024-09-11 21:11 | XMS_ITS | Encounter Summary ---
Author Organization [facility] Address [address] [place] [address] 7t [place] [address] Care Team Providers Care Plug Paster Name Role Phone Oralia Aguila MD Primary Care Provider [phone] Zeinab Sykes MD Primary Care Provider + Reason for Visit * Reason Comments Med Refill Encounter Details Date Type Department Care Team (Late Contact Info) Description 08/09/2023 Refill [facility] MEDICINE [address] [place] [address] Oralia Aguila MD 230 [place], [place] [phone] Other intervertebral disc displacement, lumbar region Social [...] Description 09/25/2024 9:45 AM EDT Office Visit [address] [address] 10/09/2024 11:45 AM EDT Office Visit [address] [address] Zeinab Sykes MD 230 [place], [place] [phone] documented as of this encounter Goals Goal Patient Goal Type Associated Problems Recent Progress Patient-Stated? Author Patient will manage their medication General On track( 023 11:18 AM EDT) Citlali Ocampo, Anoop Note: Began medboxes. Goal achieved 11/19/22. Patient graduated from [facility]. documented as of this encounter Visit Diagnoses Diagnosis Other intervertebral disc displacement, lumbar region documented in this encounter Care Teams Plug Paster Relationship Specialty Start Date End Date Oralia Aguila MD [address] [place] [address] PCP - General Family Medicine 04/26/23 01/01/24 Zeinab Sykes MD [address] [place] [address] PCP - General Internal Medicine 01/02/24 Tomeka Martins Manager Critical CareBrass Plater 10/27/23 documented as of this encounter
--- OUTSIDE RECORDS SUMMARY | 2024-09-11 21:11 | XMS_ITS | Encounter Summary ---
Author Organization [employer] [facility] Address [address] [place] [address] [place] [address] Care Team Providers Care Pharmacist Name Role Phone Evelyn Ledesma Primary Care Provider [phone] Oralia Aguila MD Primary Care Provider [phone] Zeinab Sykes MD Primary Care Provider + Reason for Visit * Reason Comments Med Refill Encounter Details Date Type Department Care Team (Late st Contact Info) Description 02/05/2023 Refill [facility] MEDICINE [address] [place] [address] Evelyn Ledesma FNP [address] [place] [address] [place] [address] Neuropathy Social History Tobacco Use Types Packs/Day [...] AM EDT Office Visit [facility] MEDICINE 230 [place] [address] 10/09/2024 11:45 AM EDT Office Visit [facility] MEDICINE 230 [place] [address] Zeinab Sykes MD 230 [place] [address] documented as of this encounter Goals Goal Patient Goal Type Associated Problems Recent Progress Patient-Stated? Author Patient will manage their medication General On track( 023 11:18 AM EDT) Citlali Ocampo, Anoop Note: Began medboxes. Goal achieved 11/19/22. Patient graduated from [facility]. documented as of this encounter Visit Diagnoses Diagnosis Neuropathy Mononeuritis of unspecified site documented in this encounter Care Teams Pharmacist Relationship Specialty Start Date End Date Evelyn Ledesma FNP PCP - General Family Medicine 03/15/22 04/25/23 Oralia Aguila MD [address] [place] [address] PCP - General Family Medicine 04/26/23 01/01/24 Zeinab Sykes MD [address] [place] [address] PCP - General Internal Medicine 01/02/24 Tomeka Martins Plastic SurgeonMilitary Technology Manager 10/27/23 documented as of this encounter
--- OUTSIDE RECORDS SUMMARY | 2024-09-11 21:11 | XMS_ITS | Encounter Summary ---
Author Organization [facility] Address [address] [facility] 7t [place] [address] Care Team Providers Care Rougher Machine Operator Name Role Phone Zeinab Sykes MD Primary Care Provider + Encounter Details Date Type Department Care Team ([facility] st Contact Info) Description 08/30/2024 Refill [facility] MEDICINE 230 [place], [place] [phone] Zeinab Sykes MD 230 [place] [address] Social History Tobacco Use Types Packs/Day Years [...] Office Visit [facility] MEDICINE [address] [place] [address] 10/09/2024 11:45 AM EDT Office Visit [facility] MEDICINE [address] [place] [address] Zeinab Sykes MD [address] [place] [address] documented as of this encounter Goals Goal Patient Goal Type Associated Problems Recent Progress Patient-Stated? Author Patient will manage their medication General On track( 023 11:18 AM EDT) Citlali Ocampo PharmD Note: Began medboxes. Goal achieved 11/19/22. Patient graduated from [facility]. documented as of this encounter Visit Diagnoses Not on filedocumented in this encounter Additional Health Concerns Assessment Noted Time PHQ-9 Depression Total Score: 22 025 10:31 AM EST documented as of this encounter Care Teams Rougher Machine Operator Relationship Specialty Start Date End Date Zeinab Sykes MD [address] [place] [address] PCP - General Internal Medicine 01/02/24 Tomeka Martins President And Chief Executive OfficerMilk Route Deliverer 10/27/23 documented as of this encounter
--- OUTSIDE RECORDS SUMMARY | 2024-09-11 21:11 | XMS_ITS | Encounter Summary ---
Author Organization [employer] [facility] Address [address] [place] [address] 7t [place] [address] Care Team Providers Care Trust Administrative Assistant Name Role Phone Zeinab Sykes MD Primary Care Provider + Reason for Visit * Reason Onset Date Comments Med Refill 07/16/2024 Encounter Details Date Type Department Care Team ([facility] st Contact Info) Description 07/16/2024 Telephone [facility] MEDICINE 230 [place], [place] [phone] Zeinab Sykes MD 230 [place], [place] [phone] Med Refill Social History Tobacco Use Types [...] 10 MG capsule To be sent to: [facility] pharmacy documented in this encounter Plan of Treatment Upcoming Encounters Date Type Department Care Team (Late st Contact Info) Description 09/25/2024 9:45 AM EDT Office Visit [facility] MEDICINE [address] [place] [address] [phone] 10/09/2024 11:45 AM EDT Office Visit [facility] MEDICINE [address] [place] [phone] Zeinab Sykes MD 230 [place] [address] documented as of this encounter Goals Goal Patient Goal Type Associated Problems Recent Progress Patient-Stated? Author Patient will manage their medication General On track( 023 11:18 AM EDT) Citlali Ocampo, Anoop Note: Began medboxes. Goal achieved 11/19/22. Patient graduated from [facility]. documented as of this encounter Visit Diagnoses Not on filedocumented in this encounter Additional Health Concerns Assessment Noted Time PHQ-9 Depression Total Score: 18 024 1:46 PM EDT documented as of this encounter Care Teams Trust Administrative Assistant Relationship Specialty Start Date End Date Zeinab Sykes MD 230 [place] [address] PCP - General Internal Medicine 01/02/24 Tomeka Martins Activity SpecialistApplications Support Specialist 10/27/23 documented as of this encounter
--- OUTSIDE RECORDS SUMMARY | 2024-09-11 21:11 | XMS_ITS | Encounter Summary ---
Author Organization [employer] Address [address] [place] [address] 7t [place] [address] Care Team Providers Care Worm Grower Name Role Phone Zeinab Sykes MD Primary Care Provider + Reason for Visit * Reason Onset Date Comments Med Refill 08/31/2024 Encounter Details Date Type Department Care Team (Late st Contact Info) Description 08/31/2024 Refill [facility] MEDICINE 230 [place], [place] [phone] Zeinab Sykes MD 230 [place] [address] Other intervertebral disc displacement, lumbar region Social [...] 5-325 MG tablet To be sent to: [facility] - [place], [place] - [address] [place] [address] documented in this encounter Plan of Treatment Upcoming Encounters Date Type Department Care Team ([facility] st Contact Info) Description 09/25/2024 9:45 AM EDT Office Visit [facility] MEDICINE [address] [place] [address] 10/09/2024 11:45 AM EDT Office Visit [facility] MEDICINE [address] [place] [address] Zeinab Sykes MD [address] [place] [address] documented as of this encounter Goals Goal Patient Goal Type Associated Problems Recent Progress Patient-Stated? Author Patient will manage their medication General On track( 023 11:18 AM EDT) No Citlali Armando, Anoop Note: Began medboxes. Goal achieved 11/19/22. Patient graduated from [facility]. documented as of this encounter Visit Diagnoses Diagnosis Other intervertebral disc displacement, lumbar region documented in this encounter Additional Health Concerns Assessment Noted Time PHQ-9 Depression Total Score: 22 025 10:31 AM EST documented as of this encounter Care Teams Worm Grower Relationship Specialty Start Date End Date Zeinab Sykes MD [address] [place] [address] PCP - General Internal Medicine 01/02/24 Tomeka Martins Blind EscortArcade Attendant 10/27/23 documented as of this encounter
--- OUTSIDE RECORDS SUMMARY | 2024-09-11 21:11 | XMS_ITS | Encounter Summary ---
Author Organization [employer] [facility] Address [address] [place] [address] 7t [place] [address] Care Team Providers Care Multimedia Designer Name Role Phone Oralia Aguila MD Primary Care Provider [phone] Zeinab Sykes MD Primary Care Provider + Reason for Visit * Reason Comments Med Refill Encounter Details Date Type Department Care Team (Late Contact Info) Description 09/21/2023 Refill [facility] MEDICINE [address] [place] [address] Oralia Aguila MD 230 [place], [place] [phone] Neuropathy Social History Tobacco Use Types Packs/Day [...] Upcoming Encounters Date Type Department Care Team ([facility] Contact Info) Description 09/25/2024 9:45 AM EDT Office Visit [facility] MEDICINE 230 [place], [place] [phone] 10/09/2024 11:45 AM EDT Office Visit [facility] MEDICINE [address] [place] [address] Zeinab Sykes MD [address] [place] [address] documented as of this encounter Goals Goal Patient Goal Type Associated Problems Recent Progress Patient-Stated? Author Patient will manage their medication General On track( 023 11:18 AM EDT) Citlali Ocampo, Anoop Note: Began medboxes. Goal achieved 11/19/22. Patient graduated from [facility]. documented as of this encounter Visit Diagnoses Diagnosis Neuropathy Mononeuritis of unspecified site documented in this encounter Care Teams Multimedia Designer Relationship Specialty Start Date End Date Oralia Aguila MD [address] [place] [address] PCP - General Family Medicine 04/26/23 01/01/24 Zeinab Sykes MD [address] [place] [address] PCP - General Internal Medicine 01/02/24 Tomeka Martins Lead Instructor/Flight AttendantHospital Educator 10/27/23 documented as of this encounter
--- OUTSIDE RECORDS SUMMARY | 2024-09-11 21:11 | XMS_ITS | Encounter Summary ---
Author Organization [employer] Address [address] [place] [address] 7t [place] [address] Care Team Providers Care Roll Setter Name Role Phone Zeinab Sykes MD Primary Care Provider + Reason for Visit * Reason Onset Date Comments Med Refill 08/20/2024 Encounter Details Date Type Department Care Team (Late st Contact Info) Description 08/20/2024 Refill [facility] MEDICINE [address] [place], [place] [phone] Zeinab Sykes MD 230 [place], [place] [phone] Type 2 diabetes mellitus without complication, without long-term current use of insulin ([facility]); Other intervertebral disc displacement, [...] 5 % patch To be sent to: [facility] - [place], [place] - [address] [place] [address] documented in this encounter Plan of Treatment Upcoming Encounters Date Type Department Care Team ([facility] st Contact Info) Description 09/25/2024 9:45 AM EDT Office Visit [facility] MEDICINE [address] [place] [address] 10/09/2024 11:45 AM EDT Office Visit [facility] MEDICINE [address] [place] [address] Zeinab Sykes MD [address] [place] [address] documented as of this encounter Goals Goal Patient Goal Type Associated Problems Recent Progress Patient-Stated? Author Patient will manage their medication General On track( 023 11:18 AM EDT) Citlali Ocampo, Anoop Note: Began medboxes. Goal achieved 11/19/22. Patient graduated from [facility]. documented as of this encounter Visit Diagnoses Diagnosis Type 2 diabetes mellitus without complication, without long-term current use of insulin ([facility]) Other intervertebral disc displacement, lumbar region documented in this encounter Additional Health Concerns Assessment Noted Time PHQ-9 Depression Total Score: 22 025 10:31 AM EST documented as of this encounter Care Teams Roll Setter Relationship Specialty Start Date End Date Zeinab Sykes MD 230 [place] [address] PCP - General Internal Medicine 01/02/24 Tomeka Martins Bell Spinner SousaphonesManager Planning 10/27/23 documented as of this encounter
--- OUTSIDE RECORDS SUMMARY | 2024-09-11 21:11 | XMS_ITS | Encounter Summary ---
Author Organization [employer] [facility] Address [address] [place] [address] 7t [place] [address] Care Team Providers Care Biometrics Technician Name Role Phone Oralia Aguila MD Primary Care Provider [phone] Zeinab Sykes MD Primary Care Provider + Reason for Visit * Reason Onset Date Comments antibiotics pre med 07/19/2023 Encounter Details Date Type Department Care Team ([facility] st Contact Info) Description 07/19/2023 Telephone [facility] ADULT DENTAL [address] [place] [address] AttStefany terry, DDS [address] [place], [place] [phone] antibiotics pre med Social History Tobacco Use [...] Description 09/25/2024 9:45 AM EDT Office Visit [address] [address] 10/09/2024 11:45 AM EDT Office Visit [address] [address] Zeinab Sykes MD [address] [place] [address] documented as of this encounter Goals Goal Patient Goal Type Associated Problems Recent Progress Patient-Stated? Author Patient will manage their medication General On track( 023 11:18 AM EDT) Citlali Ocampo, Anoop Note: Began medboxes. Goal achieved 11/19/22. Patient graduated from [facility]. documented as of this encounter Visit Diagnoses Not on filedocumented in this encounter Care Teams Biometrics Technician Relationship Specialty Start Date End Date Oralai Aguila MD [address] [place] [address] PCP - General Family Medicine 04/26/23 01/01/24 Zeinab Sykes MD [address] [place] [address] PCP - General Internal Medicine 01/02/24 Tomeka Martins Tin Roller Hot MillFurniture Upholsterer 10/27/23 documented as of this encounter
--- OUTSIDE RECORDS SUMMARY | 2024-09-11 21:11 | XMS_ITS | Encounter Summary ---
Author Organization [facility], Address [address] [place] [address] Phone Care Team Providers Care Agronomy Supervisor Name Role Phone Evelyn Rodriguez Primary Care Provider Silvana vailable Encounter Details Date Type Department Care Team (Late st Contact Info) Description 02/18/2023 Documentation Only [facility], [address] [place] [address] [address] [place] [address] Social History Tobacco Use Types [...] on filedocumented in this encounter Care Teams Agronomy Supervisor Relationship Specialty Start Date End Date Evelyn Rodriguez FNP PCP - General 02/18/23 documented as of this encounter
--- OUTSIDE RECORDS SUMMARY | 2024-09-11 21:11 | XMS_ITS | Encounter Summary ---
Author Organization [employer] [facility] Address [address] [place] [address] 7t [place] [address] Care Team Providers Care Ug Designer Name Role Phone Evelyn Ledesma Primary Care Provider [phone] Oralia Aguila MD Primary Care Provider [phone] Zeinab Sykes MD Primary Care Provider + Encounter Details Date Type Department Care Team (Latest Contact Info) Description 12/21/[address] [facility] CONVERSIONS Dental, Provider, DDS Social History [...] EDT Office Visit [facility] MEDICINE [address] [place] [address] [phone] 10/09/2024 11:45 AM EDT Office Visit [facility] MEDICINE [address] [place] [address] [phone] Zeinab Sykes MD [address] [place] [address] documented as of this encounter Visit Diagnoses Not on filedocumented in this encounter Care Teams Ug Designer Relationship Specialty Start Date End Date Evelyn Ledesma FNP PCP - General Family Medicine 03/15/22 04/25/23 Oralia Aguila MD 230 [place] [address] PCP - General Family Medicine 04/26/23 01/01/24 Zeinab Sykes MD 230 [place] [address] PCP - General Internal Medicine 01/02/24 Tomeka Martins Administrative ProcessorFire Manager 10/27/23 documented as of this encounter
--- OUTSIDE RECORDS SUMMARY | 2024-09-11 21:11 | XMS_ITS | Encounter Summary ---
Author Organization [employer] [facility] Address [address] [place] [address] 7 [place] [address] Care Team Providers Care Case Operator Name Role Phone Evelyn Ledesma Primary Care Provider [phone] Oralia Aguila MD Primary Care Provider [phone] Zeinab Sykes MD Primary Care Provider + Reason for Visit * Reason Onset Date Comments Referral 02/03/2023 Renewal Encounter Details Date Type Department Care Team (Late st Contact Info) Description 02/03/2023 Telephone [facility] [address] [place] [id number] Evelyn Ledesma FNP [address] [place] [address] [place] [address] Referral (Renewal ) Social History Tobacco Use [...] 09/25/2024 9:45 AM EDT Office Visit [address] [address] 10/09/2024 11:45 AM EDT Office Visit [address] [address] Zeinab Sykes MD [address] [place], [place] [phone] documented as of this encounter Goals Goal Patient Goal Type Associated Problems Recent Progress Patient-Stated? Author Patient will manage their medication General On track( 023 11:18 AM EDT) Citlali Ocampo, PharmD Note: Began medboxes. Goal achieved 11/19/22. Patient graduated from [employer]. documented as of this encounter Visit Diagnoses Not on filedocumented in this encounter Care Teams Case Operator Relationship Specialty Start Date End Date Evelyn Ledesma FNP PCP - General Family Medicine 03/15/22 04/25/23 Oralia Aguila MD [address] [place] [address] [id number] PCP - General Family Medicine 04/26/23 01/01/24 Zeinab Sykes MD [address] [place] [address] [id number] PCP - General Internal Medicine 01/02/24 Tomeka Martins Director EpidemiologyMachine Cell [employer] 10/27/23 documented as of this encounter
--- OUTSIDE RECORDS SUMMARY | 2024-09-11 21:11 | XMS_ITS | Encounter Summary ---
Author Organization [employer] Address [address] [facility] [address] [place] [address] Care Team Providers Care Club Attendant Name Role Phone Zeinab Sykes MD Primary [...] 9:45 AM EDT Office Visit [facility] [address] [place] [address] [phone] 10/09/2024 11:45 AM EDT Office Visit [facility] [address] [place] [address] [phone] Zeinab Sykes MD [address] [place] [phone] documented as of this encounter Goals Goal Patient Goal Type Associated Problems Recent Progress Patient-Stated? Author Patient will manage their medication General On track( 023 11:18 AM EDT) Citlali Ocampo PharmD Note: Began medboxes. Goal achieved 11/19/22. Patient graduated from [employer] [facility] [employer] [facility]. documented as of this encounter Visit Diagnoses Not on filedocumented in this encounter Additional Health Concerns Assessment Noted Time PHQ-9 Depression Total Score: 22 025 10:31 AM EST documented as of this encounter Care Teams Club Attendant Relationship Specialty Start Date End Date Zeinab Sykes MD [address] [place] [address] PCP - General Internal Medicine 01/02/24 Tomeka Martins Design Release EngineerConference Services Director 10/27/23 documented as of this encounter
--- OUTSIDE RECORDS SUMMARY | 2024-09-11 21:11 | XMS_ITS | Clinical Summary ---
Author Organization [employer] Address [address] [place] [address] 7[address] [place] [address] Care Team Providers Care Manager Chemistry Name Role Phone Zeinab Sykes MD Primary [...] in the morning. Active oxymetazoline (Afrin Nasal [place]) 0.05 % nasal spray Administer 2 sprays [...] complication, without long-term current use of insulin ([facility]) 1 each by Other route Once per day. USE TO TEST BLOOD SUGAR ONCE A DAY 100 each 3 024 Active glucose blood (FREESTYLE LITE) test stripIndications:T ype 2 diabetes mellitus without complication, without long-term current use of insulin (CMS/HCC) USE TO TEST BLOOD SUGAR ONCE A DAY 100 each 3 024 Active gabapentin (Neurontin) 300 MG capsuleIndications :Neuropathy TAKE 1 CAPSULE BY MOUTH THREE TIMES DAILY IN THE MORNING, EVENING, AND BEDTIME 90 capsule 3 024 Active ergocalciferol (Vitamin D2) 1.25 MG (12046 UT) capsule TAKE 1 CAPSULE BY MOUTH ONCE WEEKLY ON TUESDAY MORNING 12 capsule Active sodium chloride ([place] Nasal [place]) 0.65 % nasal sprayIndications:A cute nasopharyngitis Administer 1 spray into each nostril if needed for congestion. 30 mL 1 025 2025 Active Alcohol Swabs (Alcohol Prep) padsIndications:Ty pe 2 diabetes mellitus without complication, without long-term current use of insulin (CMS/HCC) USE TWICE DAILY 100 each 5 025 Active albuterol (2.5 MG/3ML) 0.083% nebulizer solution [...] EVERY MORNING 45 tablet 3 025 Active oxyCODONE-acetamin ophen (Percocet) 5-325 MG tabletIndications: Other intervertebral disc displacement, lumbar region Take 1 tablet by mouth every 6 (six) hours if needed for severe pain for up to 28 days. 112 tablet 025 2024 Active chlorthalidone (Hygroton) 25 MG tablet TAKE 1/2 TABLET BY MOUTH EVERY MORNING 45 tablet 3 024 2024 Discontinued Alcohol Swabs (Alcohol Prep) padsIndications:Ty pe 2 diabetes mellitus without complication, without long-term current use of insulin ([facility]) USE TWICE DAILY 100 each 5 024 [...] to 28 days. 112 tablet 025 2024 Discontinued(R eorder (will not trigger notification to Pharmacy)) benzonatate (Tessalon Perles) 100 MG capsuleIndications :Acute nasopharyngitis Take 1 capsule (100 mg) by mouth if needed in the morning, at noon, and at bedtime for cough for up to 7 days. Do not crush or chew. 20 capsule 025 2024 acetaminophen (Tylenol) 325 MG tabletIndications: Acute nasopharyngitis Take 2 tablets (650 mg) by mouth every 6 (six) hours if needed for moderate pain or fever. 120 tablet 025 2024 azithromycin (Zithromax) 250 MG tabletIndications: [...] bx, I will fu or refer to TRUCK TRAILER FINAL INSPECTOR after US reports. Left foot pain 03/29/2024 [...] L4-5 and right L5-S1 decompressive laminectomy at [facility] - surgeon Dr. Melia Pedroza DME request for 10-in-1 pillow on 07/31/24 Assessment & Plan (05/29/2024 5:18 PM EST): Known DDD L-spine with radiculopathy sxs 05/26/2018 - Lumbar decompression surgery: L4-5 and right L5-S1 decompressive laminectomy at [facility] - surgeon Dr. Melia Pedroza Assessment & [...] disc, s/p vagus nerve stimulator, neuropathy Last RESPIRATORY THERAPY DIRECTOR Agreement: 03/13/24 Assessment & Plan (07/31/2024 4:57 [...] in 3mo Fatty liver 02/04/2024 Overview (03/29/2024): [facility] abd US on 10/2023 showed Fatty liver. Normal LFTs/albumin Assessment & Plan (03/29/2024 1:40 PM EDT): LFTs remain stable/normal. Dx d/w patient and advised her to continue tight control of DM, weight reduction, try to cut down on opiates and fu with me. I also advised her to avoid ETOH or recreational substances. Seborrheic dermatitis of scalp 01/02/2024 Overview (01/02/2024): Seen at [facility] dermatology Assessment & Plan (03/20/2024 3:50 PM EDT): Generally well controlled, encouraged to continue fu with [facility] derm Refill for fluocinolone today. Housing insecurity 01/02/2024 Assessment & Plan (08/15/2024 1:36 PM EST): See above. Applying for housing and need handicap access. Assessment & Plan (03/20/2024 3:51 PM EDT): Awaiting housing application, lives in abasement FU with SDDE. Stage 3a chronic kidney disease 11/01/2023 Assessment [...] pseudophedrine short term. Will refer her to marine engine machinist apprentice again so she can be evaluated for [...] albuterol prn. Will refer her back to marine engine machinist apprentice. RUQ pain 10/05/2023 Assessment & Plan (11/01/2023 3:28 PM EDT): Pt [facility] RUQ. US was ordered but pending. [...] ballon inside the gastric body placed in [place] for bariatric procedure about 20 cm in [...] lumbar r egion 05/17/2017 Overview (09/17/2022): On RESPIRATORY THERAPY DIRECTOR contract. discussed tapering percocet options, not interested.. Referred to HIM forms dept for handicap plackards documents. Referred to [facility] for polypharmacy education. Continue medications as prescribed. Discussed Narcan. Encouraged nonpharmacologic pain relief strategies. will f/up next visit Assessment & Plan (03/20/2024 3:48 PM EDT): On RESPIRATORY THERAPY DIRECTOR contract. discussed tapering percocet options, not interested, it apparently offers partial enough improvement of sxs. Patient is aware that oil heaterman use of opiates can cause hyperalgesia, liver toxicity, TIP SCOURER toxicity, increase anxiety, among others. Will continue to work with chronic pain management [facility] clinic. Continue medications as prescribed. Discussed Narcan. [...] PRN for elevated BP readings.. Referred to [facility] for polypharmacy education. Continue medications as [...] Type Department Care Team Description 08/31/2024 Refill [facility] [address] [place] [address] Zeinab Sykes MD Other intervertebral disc displacement, lumbar region 08/30/2024 Refill [facility] [address] [place] [address] Zeinba Sykes MD 08/29/2024 Refill [facility] & PEDS [address] [place] [address] Oralia Aguila MD 08/27/2024 Telephone [facility] [address] [place] [address] Zeinab Sykes MD Results 08/21/2024 5:20 PM EST Office Visit [facility] [address] [place] [address] Yonathan Snider MD Subacute cough 08/21/2024 Travel 08/20/2024 Refill [facility] [address] [place] [address] Zeinab Sykes MD Type 2 diabetes mellitus without complication, without long-term current use of insulin ([facility]); Other intervertebral disc displacement, lumbar region 08/15/2024 10:15 AM EST Office Visit [facility] [address] [place] [address] Zeinab Sykes MD Type 2 diabetes mellitus without complication, without long-term current use of insulin ([facility]/H[facility]) (Primary Dx); Essential hypertension; Postmenopause bleeding; Recurrent major depressive disorder, in partial remission (CMS/HCC); Moderate persistent asthma with acute exacerbation; ADELAIED (obstructive sleep apnea); Housing insecurity; Nasal congestion 08/15/2024 Travel 08/14/2024 Travel 08/10/[address] [address] Terra Mackey [place] Chart prep 08/08/2024 5:20 PM EST Office Visit [facility] [address] [place] [phone] Lia Martinez NP Acute nasopharyngitis (Primary Dx); Flu-like symptoms 08/08/2024 3:00 PM EST Office Visit [facility] ADULT DENTAL [address] [place] [phone] Watkins-Maynard , Gay, DDS Fracture of removable partial denture (Primary Dx) 08/03/2024 3:30 PM EST Office Visit [facility] [address] [place] [phone] Watkins-Maynard , Gay, DDS Fracture of removable partial denture (Primary Dx) 08/03/[address] [address] Zeinab Sykes MD Other intervertebral disc displacement, lumbar region 08/03/2024 Patient Outreach [address] [address] Zeinab Sykes MD Pre-visit Planning ((Unable to reach for PVP screening, LVM)) 08/01/2024 Telephone [facility] [address] [place], [place] [phone] Zeinab Sykes MD Durable Medical Equipment (10 In 1 pillow/) 07/31/2024 9:45 AM EST Office Visit [address] [address] Alma Jha FNP Lumbar back pain with radiculopathy affecting left lower extremity (Primary Dx); Long-term current use of opiate analgesic 07/31/2024 Telephone [facility] [address] [place], [place] [phone] Alma Jha FNP RESPIRATORY THERAPY DIRECTOR: [employer] System 07/31/2024 Telephone [facility] [address] [place] [address] Scarlett Gibbs RN BPI Scoring 07/31/2024 Travel 07/30/2024 Refill [facility] [address] [place] [address] Zeinab Sykes MD 07/16/2024 Telephone [facility] [address] [place] [address] Zeinab Sykes MD Med Refill 07/04/2024 Refill [facility] [address] [place] [address] Zeinab Sykes MD Other intervertebral disc displacement, lumbar region 06/29/2024 Refill [facility] [address] [place] [address] Zeinab Sykes MD Neuropathy 06/19/2024 Refill [facility] [address] [place] [address] Zeinab Sykes MD Type 2 diabetes mellitus without complication, without long-term current use of insulin ([facility]) from Last 3 Months Immunizations Name Administration [...] [facility] [address] [place] [phone] 10/09/2024 11:45 AM EDT Office Visit [facility] [address] [place] [phone] Zeinab Sykes MD [address] [place] [address] Health Maintenance Due Date Last Done Comments [...] medboxes. Goal achieved 11/19/22. Patient graduated from [facility]. Procedures Procedure Name Priority Date/Time Associated [...] complication, without long-term current use of insulin ([facility]) POCT RAPID COVID ANTIGEN Routine 08/08/2024 5:54 [...] 07/03/2024 1 2:03 PM EST Postmenopause bleeding PAP SMEAR Routine 06/01/2024 [...] PM EST Narrative 08/22/2024 4:30 PM EST ?[facility] ?[address] ?[place] [address] ?XRay Report ? Signed ? Patient: Gerry Mclaughlin,Rhonda ?MR# ?? : [id number] ? : 1960 ?Acct:[id number] ? Age/Sex: 63 / F ?ADM Date: 08/22/24 ? Loc: HO.HHCX ? Attending Dr: Yonathan Snider MD ? Ordering Physician: Yonathan Snider MD ?? Date of Service: 08/22/24 ?? Procedure(s): XR chest 2V ?? Accession Number(s): [id number] ? cc: Yonathan Snider MD ? EXAMINATION: [...] 04:27 PM EST RP ? Dictated By: ?Tiesha Mayfieldnal S MD ? Signed By: ?<Electronically signed by Sajneev Mayfield MD in OV> ?08/22/24 1627 ? DD/ 1553 ? TD/TT: 08/22/24 1600 ? Butcher Helper: MSM ? Procedure Note Carolina Hernandez - 08/22/2024 [facility] [address] [place] [address] XRay Report Signed Patient: Karla Fernández# : [id number] : 1960Acct:[id number] Age/Sex: 63 / FADM Date: 08/22/24 Loc: HO.HHCX Attending Dr: Yonathan Snider MD Ordering Physician: Yonathan Snider MD Date of Service: 08/22/24 Procedure(s): XR chest 2V Accession Number(s): [id number] cc: Yonathan Snider MD EXAMINATION: XR CHEST [...] 08/22/24 1627 DD/ 1553 TD/TT: 08/22/24 1600 Butcher Helper: [facility] Yonathan Snider MD IMG XR PROCEDURES Edited Result - Final * Influenza B (ID NOW Rapid Molecular) (08/21/2024 5:37 PM EST) Only the most recent of3 resultswithin the time period is included. Influenza B Negative Negative, Indeterminate [facility] Swab 08/21/2024 5:37 PM EST Yonathan Snider MD POINT OF CARE TEST ENTER/EDIT OR DERABLES Final Result [facility] [address] [place] [phone] * Influenza A (ID NOW Rapid Molecular) (08/21/2024 5:37 PM EST) Only the most recent of3 resultswithin the time period is included. Influenza A Negative Negative, Indeterminate [facility] Swab 08/21/2024 5:37 PM EST us Yonathan Snider MD POINT OF CARE TEST ENTER/EDIT OR DERABLES Final Result [facility] [address] [place] [address] [phone] * POCT Rapid COVID Ag (08/21/2024 5:10 PM EST) Only the most recent of3 resultswithin the time period is included. [facility] Rapid COVID Ag Negative Swab 08/21/2024 5:10 PM EST Yonathan Snider MD POINT OF CARE TEST ENTER/EDIT OR DERABLES Final Result * (ABNORMAL) Respiratory Viral Panel PCR (08/21/2024 2:25 PM EST) [facility] Adenovirus PCR Not Detected Not Detect. [facility] Bordetella pertussis PCR Not Detected Not Detect. [facility] Comment:Interpret results wi th caution. If B. pertussis isspecifically suspected, additional testing using analternate method is recommended. Bordetella parapertussis PCR Not Detected Not Detect. [facility] Chlamydia pneumoniae PCR Not Detected Not Detect. [facility] Coronavirus 229E PCR Not Detected Not Detect. [facility] Coronavirus HKU1 PCR Not Detected Not Detect. [facility] Coronavirus NL63 PCR Not Detected Not Detect. [facility] Coronavirus OC43 PCR Detected(A) Not Detect. [facility] SARS-CoV-2 PCR Not Detected Not Detect. [facility] Comment:SARS-CoV-2 not detec jocelyn by real-time RT-PCR.Note: If clinical suspicion for Sars-CoV-2 is high, continueto maintain precautions and consider repeat testing.Test results should be interpreted in the context ofclinical findings and other laboratory data.Rare polymorphisms exist that could lead to false-negativeor false-positive results. If results do not match theclinical findings, additional testing should be considered.Results reported to [facility].This test has been authorized by the FDA under the EmergencyUse Authorization (EUA) for use by authorized laboratories. Influenza A PCR Not Detected Not Detect. [facility] Influenza B PCR Not Detected Not Detect. [facility] Human metapneumovirus PCR Not Detected Not Detect. [facility] Rhino/Enterovirus PCR Not Detected Not Detect. [facility] Mycoplasma pneumoniae PCR Not Detected Not Detect. [facility] Parainfluenza 1 PCR Not Detected Not Detect. [facility] Parainfluenza 2 PCR Not Detected Not Detect. [facility] Parainfluenza 3 PCR Not Detected Not Detect. [facility] Parainfluenza 4 PCR Not Detected Not Detect. [facility] RSV PCR Not Detected Not Detect. [facility] Resp Panel NA Note See Note H [facility] Comment:All results must be correlated [...] assay is performed by Multiplexed PCR, utilizing [employer] Film Array. 08/21/2024 2:25 PM EST 08/22/2024 2:39 PM EST us Yonathan Snider MD LAB BLOOD ORDERABLES Final Resul t [facility] [address] [place] [address] [phone] * (ABNORMAL) POCT Glucose (08/15/2024 10:38 AM EST) [facility] Glucose Blood, POC 202(A) 60 - 200 mg/dL QC Media Lot # [id number] Lot# Expiration Date [id number] Blood Capillary blood specimen / Unknown 08/15/2024 10:38 AM EST Zeinab Sykes MD POINT OF CARE TEST ENTER /EDIT ORDERABLES Final Result * POCT Rapid RSV JI ID NOW (08/08/2024 5:54 PM EST) RSV Rapid Ag POC Negative Negative [facility] Swab 08/08/2024 5:54 PM EST Lia Martinez NP POINT OF CARE TEST ENTER/EDIT O RDERABLES Final Result [facility] [address] [place] [phone] * POCT DIDIER-14 Urine Drug Screen (07/31/2024 1:45 PM EST) TCA, Urine Positive Oxycodone Screen, Urine Positive Urine Urine specimen obtained by clean catch procedure / Unknown 07/31/2024 1:45 PM EST Scarlett Onofre RN - 07/31/2024 1:45 PM EST UTOX cup Lot#[id number] Exp. 04/11/26 Internal Pass Control Zeinab Sykes MD POINT OF CARE TEST ENTER /EDIT ORDERABLES Final Result * Creatinine, Serum (07/03/2024 12:03 PM EST) Creatinine, Serum 0.99 0.5 - 1.4 mg/dL [facility] Estimated Glomerular Filt Rate 56 [facility] Comment:Chronic Kidney Disea se: Estimated GFR < 60 mL/min/[id number] Kidney Disease: Estimated GFR < 15 mL/min/1.73m2 07/03/2024 12:0 3 PM EST 07/03/2024 12:03 PM EST us Generic External Data Provider LAB BLOOD ORDERAB LES Final Result Performing Organization Address [facility]/ZIP Co de Phone Number [facility] [address] [place] [phone] * (ABNORMAL) BUN (Blood Urea Nitrogen) (07/03/2024 12:03 PM EST) Urea Nitrogen (BUN) 18(H) 9 - 16 mg/dL [facility] 07/03/2024 12:0 3 PM EST 07/03/2024 12:03 PM EST Generic External Data Provider LAB BLOOD ORDERAB LES Final Result Performing Organization Address [facility] de Phone Number [facility] [address] [place] [phone] * Pap Smear (06/01/2024 2:43 PM EST) 06/01/2024 2:43 PM EST 06/04/2024 9:25 AM EST Farrah [facility] - 06/20/2024 7:51 AM EST ----- ------- Name: Rhonda Fernández ? Age/Sex: 63/F ? : 1960 Unit#: [id number] ?? Attend Dr: Aisha Mcclain CNM ?Re06/01/24 ?Status: DEP REF ? Location: HO.LNP ?Disch: ? ----- ------- SPEC : [id number] ?RECD: 06/04/24 ? STATUS: ??SOUT ? REQ NUM: [id number] ? DARWIN: [birth year]1944 ? SUBM DR: Aisha Mcclain CNM ? ENTERED: ??06/04/24-1001 ?SP TYPE: Pap Smr ?OTHR DR: Zeinab [...] Copies To: ?? Zeinab Sykes MD ?? [facility] ?? [address] [facility] ?? [place] [address] ?? [phone] ?? Aisha Mcclain CNM ?? [facility] Women[facility] Services ?? [address] ?? [place] [address] ?? [phone] ----- ------- Signed (signature on file) INDERJIT Bloom (ASCP) 06/20/24 0751 ? ----- ------- ? END OF REPORT ? us Generic External Data Provider LAB CYTOLOGY JERED STAFFORD Final Result [facility] [address] [place] [address] [phone] * (ABNORMAL) POCT HGB A1C (03/29/2024 10:47 AM EDT) Hemoglobin A1C 6.3(A) 4.0 - 6.0 % QC Media Lot # [id number] Lot# Expiration Date ,[id number] Blood 03/29/2024 10:4 7 AM EDT us Zeinab Sykes MD POINT OF CARE TEST ENTER /EDIT ORDERABLES Final Result * (ABNORMAL) Lipid Panel with Reflex to Direct LDL (01/06/2024 12:38 PM EDT) Triglycerides 91 <150 mg/dL [facility] Comment:Desirable Triglyceri de: less than 150 mg/dLBorderline High Triglyceride 150-199 mg/dLHigh Triglyceride: 200-499 mg/dLVery High Triglyceride: greater than or equal to 5OO mg/dL Cholesterol 211(H) <200 mg/dL [facility] Comment:Desirable Cholestero l: less than 200 mg/dLBorderline High Cholesterol: 200-239 mg/dLHigh Cholesterol: greater than 239 mg/dL LDL Cholesterol Calculated 132(H) <100 mg/dL [facility] Comment:Desirable LDL: less than 100 mg/dLNear Optimal/Above Optimal LDL: 110- 129 mg/dLBorderline High LDL: 130-159 mg/dLHigh LDL: 160-189 mg/dLVery High LDL: greater than or equal to 190 mg/dL HDL Cholesterol 61 >40 mg/dL [facility] Comment:Desirable HDL: great er than 40 mg/dL Note: This HDL assay may give artificially low results in patients with liver disease. Blood 01/06/2024 12:3 8 PM EDT 01/06/2024 4:21 PM EDT us Zeinab Sykes MD LAB BLOOD ORDERABLES Fin al Result [facility] [address] [place] [phone] * Hepatitis Panel, General (01/06/2024 12:38 PM EDT) Hepatitis A IgM Nonreactive Nonreactive [facility] Comment:IgM antibodies to GUERIN V not detected; does not exclude earlyacute or recovered HAV infection. ~Hepatitis B Surface Antibody REACTIVE Nonreactive [facility] Comment:REACTIVE: > 11.99 mI U/mL Hepatitis B Core Antibody Nonreactive Nonreactive [facility] Hepatitis C Antibody Nonreactive Nonreactive [facility] Comment:Antibodies to HCV no t detected; does not exclude early acuteHCV infection. Hepatitis B Surface Ag Negative Negative [facility] Blood 01/06/2024 12:3 8 PM EDT 01/06/2024 4:21 PM EDT Zeinab Sykes MD LAB BLOOD ORDERABLES Fin al Result Performing Organization Address City/[facility]/ZIP Co de Phone Number [facility] [address] [place] [address] [phone] * HIV-1/2 Antigen and Antibodies, Fourth Generation, with Reflexes (01/06/2024 12:38 PM EDT) Pathologist [facility] HIV AB/AG Nonreactive Nonreactive [facility] Comment:HIV-1 p24 Ag and/or HIV-1/HIV-2 Ab not detected.A test result that is nonreactive does not exclude thepossibility of exposure to or infection with HIV-1 and/orHIV-2. Nonreactive results in this assay for individualswith prior exposure to HIV-1 and/or HIV-2 may be due toantigen and antibody levels that are below the limit ofdetection of this assay.The [id number] HIV Ag/Ab Combo assay result andsupplemental assay results should be interpreted inconjunction with the patient's clinical presentation,history and other laboratory results. If the results areinconsistent with clinical evidence, additional testing issuggested to confirm the result. Blood Venous blood specimen / Unknown 01/06/2024 12:38 PM EDT 01/06/2024 4:21 PM EDT Zeinab Sykes MD LAB BLOOD ORDERABLES Fin al Result Performing Organization Address City/[facility]/ZIP Co de Phone Number [facility] [address] [place] [address] [phone] * Mammography Report 1 (03/15/2022 5:00 PM EDT) Anatomical Region Laterality Modality Breast Bilateral Mammography 03/15/2022 5:00 PM EDT Narrative 03/16/2022 8:33 AM EDT Refer to the Notes tab for result details [facility] Procedure: Mammography Report 1 Procedure Note ProviderParag MD - 10/10/2022 Refer to the Notes tab for result details [facility] Procedure: Mammography Report 1 Evelyn Carlin Baltazar PYROTECHNICIAN IMG BI PROCEDURES Final Re sult * [...] Creatinine, Urine 244 20 - 275 mg/dL [facility] 03/08/2022 3:04 PM EDT Rebekah Guevara CHEMICAL TREATMENT PLANT TECHNICIAN LAB URINE ORDERABLES Final Res ult [facility] [address] * HPV mRNA E6/E7 (07/07/2020 12:00 AM EST) HPV nRNA E6/E7 Not Detected Not Detected [facility] Comment: This test was performed using the APTIMA HPV Assay ([employer] This assay detects E6/E7 viral messenger RNA (mRNA) from 14 high-risk HPV types (16,18,31,33,35,39,45,51,52,56,58,59,66,68). ?? The analytical performance characteristics of this assay have been determined by [employer] The modifications have not been cleared or approved by the FDA. This assay has been validated pursuant to the CLIA regulations and is used for clinical purposes. 07/07/2020 us Historical Provider LAB BLOOD ORDERABLES Sera hayes Result Performing Organization Address City/State/RUST Co de Phone Number [facility] [address] from Last 3 Months or Most Recently Relevant to Health Maintenance Insurance [facility] C3 DENTAL-[facility] MEDICAID STAND ADULT Care Teams Manager Chemistry Relationship Specialty Start Date End Date Zeinab Sykes MD [address] [place] [phone] PCP - General Internal Medicine 01/02/24 Tomeka Martins Gasoline Locomotive Crane OperatorHealth Aide 10/27/23
--- OUTSIDE RECORDS SUMMARY | 2024-09-11 21:11 | XMS_ITS | Clinical Summary ---
Author Organization [facility], Address [address] [place] [address] [place] [address] Phone Care Team Providers Care Director Print Name Role Phone Evelyn Rodriguez Primary Care [...] age to complete this topic Insurance [place] Care Teams Director Print Relationship Specialty Start Date End Date Evelyn Rodriguez FNP PCP - General 02/18/23
--- OUTSIDE RECORDS SUMMARY | 2024-09-11 21:11 | XMS_ITS | Encounter Summary ---
Author Organization [employer] Address [address] [place] [address] 7t [place] [address] Care Team Providers Care Fitness Director Name Role Phone Evelyn Ledesma Primary Care Provider [phone] Oralia Aguila MD Primary Care Provider [phone] Zeinab Sykes MD Primary Care Provider + Reason for Visit * Reason Onset Date Comments medical clearance 02/11/2023 Encounter Details Date Type Department Care Team (Late st Contact Info) Description 02/11/2023 Telephone [facility] [address] [place] [address] Asad Shore DDS [address] [place] [address] medical clearance Social History Tobacco Use Types [...] 09/25/2024 9:45 AM EDT Office Visit [address] [phone] 10/09/2024 11:45 AM EDT Office Visit [address] [phone] Zeinab Sykes MD [address] [place] [address] [phone] documented as of this encounter Goals Goal Patient Goal Type Associated Problems Recent Progress Patient-Stated? Author Patient will manage their medication General On track( 023 11:18 AM EDT) Citlali Ocampo, PharmD Note: Began medboxes. Goal achieved 11/19/22. Patient graduated from [facility]. documented as of this encounter Visit Diagnoses Not on filedocumented in this encounter Care Teams Fitness Director Relationship Specialty Start Date End Date Evelyn Ledesma FNP PCP - General Family Medicine 03/15/22 04/25/23 Oralia Aguila MD [address] [place] [address] [phone] PCP - General Family Medicine 04/26/23 01/01/24 Zeinab Sykes MD [address] [place] [address] [phone] PCP - General Internal Medicine 01/02/24 Tomeka Martins Stores LaborerInsurance Inspector 10/27/23 documented as of this encounter
--- OUTSIDE RECORDS SUMMARY | 2024-09-11 21:11 | XMS_ITS | Encounter Summary ---
Author Organization [facility] Address [address] [place] [address] 7t [place] [address] Care Team Providers Care Radio Station Manager Name Role Phone Oralia Aguila MD Primary Care Provider [phone] Zeinab Sykes MD Primary Care Provider + Reason for Visit * Reason Comments Med Refill Encounter Details Date Type Department Care Team (Late Contact Info) Description 07/06/2023 Refill [facility] [address] [place] [address] Bryn Franklin MD 230 [place] [address] Social History Tobacco Use Types Packs/Day Years [...] Description 09/25/2024 9:45 AM EDT Office Visit [facility] [address] [place] [address] [phone] 10/09/2024 11:45 AM EDT Office Visit [facility] [address] [place] [address] [phone] Zeinab Sykes MD [address] [place] [address] documented as of this encounter Goals Goal Patient Goal Type Associated Problems Recent Progress Patient-Stated? Author Patient will manage their medication General On track( 023 11:18 AM EDT) Citlali Ocampo, Anoop Note: Began medboxes. Goal achieved 11/19/22. Patient graduated from [facility]. documented as of this encounter Visit Diagnoses Not on filedocumented in this encounter Care Teams Radio Station Manager Relationship Specialty Start Date End Date Oralia Aguila MD [address] [place] [address] PCP - General Family Medicine 04/26/23 01/01/24 Zeinab Sykes MD [address] [place] [address] PCP - General Internal Medicine 01/02/24 Tomeka Martins Sales Appointment CoordinatorDogman/Woman 10/27/23 documented as of this encounter
--- OUTSIDE RECORDS SUMMARY | 2024-09-11 21:11 | XMS_ITS | Encounter Summary ---
Author Organization [employer] Address [address] [facility] [address] [employer] [address] [employer] 7t [place] [address] Care Team Providers Care Follow Up Clerk Name Role Phone Zeinab Sykes MD Primary Care Provider + Reason for Visit * Reason Onset Date Comments Results 08/27/2024 Encounter Details Date Type Department Care Team ([facility] Contact Info) Description 08/27/2024 Telephone [facility] 230 [place], [place] [phone] Zeinab Sykes MD 230 [place] [address] Results Social History Tobacco Use Types Packs/Day [...] 4:57 PM EST TC placed to pt, Kaleidoscope ID: [id number], regarding message below per Dr. Snider. Pt [...] results: X-RAY Date when done: 08/22/2023 Facility: [facility] * Telephone Encounter - Nancy Slade - 08/27/2024 3:35 PM EST TC from pt requesting call back regarding Results. Type of results: X-RAY Date when done: 08/22/2023 Facility: [facility] documented in this encounter Plan of Treatment Upcoming Encounters Date Type Department Care Team (Late st Contact Info) Description 09/25/2024 9:45 AM EDT Office Visit [facility] [address] [place] [address] 10/09/2024 11:45 AM EDT Office Visit [facility] [address] [place] [address] Zeinab Sykes MD [address] [place] [address] documented as of this encounter Goals Goal Patient Goal Type Associated Problems Recent Progress Patient-Stated? Author Patient will manage their medication General On track( 023 11:18 AM EDT) Citlali Ocampo PharmD Note: Began medboxes. Goal achieved 11/19/22. Patient graduated from [facility]. documented as of this encounter Visit Diagnoses Not on filedocumented in this encounter Additional Health Concerns Assessment Noted Time PHQ-9 Depression Total Score: 22 025 10:31 AM EST documented as of this encounter Care Teams Follow Up Clerk Relationship Specialty Start Date End Date Zeinab Sykes MD [address] [place] [address] PCP - General Internal Medicine 01/02/24 Tomeka Martins Computer Network Support SpecialistBilingual Social Worker 10/27/23 documented as of this encounter
--- OUTSIDE RECORDS SUMMARY | 2024-09-11 21:11 | XMS_ITS | Encounter Summary ---
Author Organization [employer] Address [address] [facility] 7t [place] [address] Care Team Providers Care Health Teacher Name Role Phone Zeinab Sykes MD Primary Care Provider + Reason for Visit * Reason Comments Med Refill Encounter Details Date Type Department Care Team ([facility] st Contact Info) Description 08/29/2024 Refill [facility] [address] [place] [address] Oralia Aguila MD 230 [place] [address] Social History Tobacco Use Types Packs/Day Years [...] Description 09/25/2024 9:45 AM EDT Office Visit [address] [address] 10/09/2024 11:45 AM EDT Office Visit [facility] [address] [place] [address] Zeinab Sykes MD [address] [place] [address] documented as of this encounter Goals Goal Patient Goal Type Associated Problems Recent Progress Patient-Stated? Author Patient will manage their medication General On track( 023 11:18 AM EDT) No Citlali Armando, Anoop Note: Began medboxes. Goal achieved 11/19/22. Patient graduated from [facility]. documented as of this encounter Visit Diagnoses Not on filedocumented in this encounter Additional Health Concerns Assessment Noted Time PHQ-9 Depression Total Score: 22 025 10:31 AM EST documented as of this encounter Care Teams Health Teacher Relationship Specialty Start Date End Date Zeinab Sykes MD [address] [place] [phone] PCP - General Internal Medicine 01/02/24 Tomeka Martins Appliance TechnicianCleaning Matron 10/27/23 documented as of this encounter
--- OUTSIDE RECORDS SUMMARY | 2024-09-11 21:11 | XMS_ITS | Encounter Summary ---
Author Organization [facility] Address [address] [place] [address] 7t [place] [address] Care Team Providers Care Army Helicopter Pilot Name Role Phone Oralia Aguila MD Primary Care Provider [phone] Zeinab Sykes MD Primary Care Provider + Reason for Visit * Reason Onset Date Comments Med Refill 05/05/2023 Encounter Details Date Type Department Care Team (Late st Contact Info) Description 05/05/2023 Refill [facility] [address] [place], [place] [phone] Oralia Aguila MD [address] [place], [place] [phone] Other intervertebral disc displacement, lumbar region Social [...] 5- 325 MG tablet to besent to [facility] - [place], [place] - 230 [facility] documented in this encounter Plan of Treatment Upcoming Encounters Date Type Department Care Team (Late st Contact Info) Description 09/25/2024 9:45 AM EDT Office Visit [facility] [place] [address] 10/09/2024 11:45 AM EDT Office Visit [facility] [address] [place] [address] [place] [address] documented as of this encounter Goals Goal Patient Goal Type Associated Problems Recent Progress Patient-Stated? Author Patient will manage their medication General On track( 023 11:18 AM EDT) Citlali Ocampo, PharmD Note: Began medboxes. Goal achieved 11/19/22. Patient graduated from [facility]. documented as of this encounter Visit Diagnoses Diagnosis Other intervertebral disc displacement, lumbar region documented in this encounter Care Teams Army Helicopter Pilot Relationship Specialty Start Date End Date [place] [address] PCP - General Family Medicine 04/26/23 01/01/24 Zeinab Sykes MD [address] [place] [address] PCP - General Internal Medicine 01/02/24 Tomeka Martins Customer Sales ConsultantBilliard Table Mechanic 10/27/23 documented as of this encounter
--- OUTSIDE RECORDS SUMMARY | 2024-09-11 21:11 | XMS_ITS | Encounter Summary ---
Author Organization [employer] Address [address] [facility] 7t [place] [address] Care Team Providers Care Millinery Blocker Name Role Phone Zeinab Sykes MD Primary Care Provider + Reason for Visit * Reason Comments Cough Encounter Details Date Type Department Care Team ([facility] Contact Info) Description 08/21/2024 5:20 PM EST Office Visit [facility] [address] [place] [address] [phone] Yonathan Snider MD 230 [place] [address] Subacute cough Social History Tobacco Use Types [...] day for 4 days. Patient presents to [facility] due to 3-week duration of cough Tested [...] Description 09/25/2024 9:45 AM EDT Office Visit [facility] 230 [place] [address] 10/09/2024 11:45 AM EDT Office Visit [facility] [address] [place] [address] Zeinab Sykes MD [address] [place] [address] documented as of this encounter Goals Goal [...] PM EST Narrative 08/22/2024 4:30 PM EST ?[facility] ?[address] ?[place] [address] ?XRay Report ? Signed ? Patient: Gerry Mclaughlin,Rhonda ?MR# ?? : [id number] ? : 1960 ?Acct:[id number] ? Age/Sex: 63 / F ?ADM Date: 08/22/24 ? Loc: HO.HHCX ? Attending Dr: Yonathan Snider MD ? Ordering Physician: Yonathan Snider MD ?? Date of Service: 08/22/24 ?? Procedure(s): XR chest 2V ?? Accession Number(s): [id number] ? cc: Yonathan Snider MD ? EXAMINATION: [...] DD/ 1553 ? TD/TT: 08/22/24 1600 ? Freight Car Loader: MSM ? Procedure Note Carolina Hernandez - 08/22/[address] [address] XRay Report Signed Patient: Bertin FernándezMl# : [id number] : 1960Acct:[id number] Age/Sex: 63 / FADM Date: 08/22/24 Loc: .CX Attending Dr: Yonathan Snider MD Ordering Physician: Yonathan Snider MD Date of Service: 08/22/24 Procedure(s): XR chest 2V Accession Number(s): [id number] cc: Yonathan Snider MD EXAMINATION: XR CHEST [...] 08/22/24 1627 DD/ 1553 TD/TT: 08/22/24 1600 Freight Car Loader: MSM Yonathan Snider MD IMG XR PROCEDURES Edited Result - Final * Influenza B (ID NOW Rapid Molecular) (08/21/2024 5:37 PM EST) Pathologist [facility] Influenza B Negative Negative, Indeterminate [facility] Swab 08/21/2024 5:37 PM EST Yonathan Snider MD POINT OF CARE TEST ENTER/EDIT OR DERABLES Final Result [facility] [address] [place] [address] [phone] * Influenza A (ID NOW Rapid Molecular) (08/21/2024 5:37 PM EST) Influenza A Negative Negative, Indeterminate [facility] Swab 08/21/2024 5:37 PM EST Yonathan Snider MD POINT OF CARE TEST ENTER/EDIT OR DERABLES Final Result [facility] [address] [place] [address] [phone] * POCT Rapid COVID Ag (08/21/2024 5:10 PM EST) [facility] Rapid COVID Ag Negative Swab 08/21/2024 5:10 PM EST Yonathan Snider MD POINT OF CARE TEST ENTER/EDIT OR DERABLES Final Result * (ABNORMAL) Respiratory Viral Panel PCR (08/21/2024 2:25 PM EST) [facility] Adenovirus PCR Not Detected Not Detect. [facility] Bordetella pertussis PCR Not Detected Not Detect. [facility] Comment:Interpret results wi th caution. If B. pertussis isspecifically suspected, additional testing using analternate method is recommended. Bordetella parapertussis PCR Not Detected Not Detect. [facility] Chlamydia pneumoniae PCR Not Detected Not Detect. [facility] Coronavirus 229E PCR Not Detected Not Detect. [facility] Coronavirus HKU1 PCR Not Detected Not Detect. [facility] Coronavirus NL63 PCR Not Detected Not Detect. [facility] Coronavirus OC43 PCR Detected(A) Not Detect. [facility] SARS-CoV-2 PCR Not Detected Not Detect. [facility] Comment:SARS-CoV-2 not detec jcoelyn by real-time RT-PCR.Note: If clinical suspicion for Sars-CoV-2 is high, continueto maintain precautions and consider repeat testing.Test results should be interpreted in the context ofclinical findings and other laboratory data.Rare polymorphisms exist that could lead to false-negativeor false-positive results. If results do not match theclinical findings, additional testing should be considered.Results reported to [facility].This test has been authorized by the FDA under the EmergencyUse Authorization (EUA) for use by authorized laboratories. Influenza A PCR Not Detected Not Detect. [facility] Influenza B PCR Not Detected Not Detect. [facility] Human metapneumovirus PCR Not Detected Not Detect. [facility] Rhino/Enterovirus PCR Not Detected Not Detect. [facility] Mycoplasma pneumoniae PCR Not Detected Not Detect. [facility] Parainfluenza 1 PCR Not Detected Not Detect. [facility] Parainfluenza 2 PCR Not Detected Not Detect. [facility] Parainfluenza 3 PCR Not Detected Not Detect. [facility] Parainfluenza 4 PCR Not Detected Not Detect. [facility] RSV PCR Not Detected Not Detect. [facility] Resp Panel NA Note See Note H [facility] Comment:All results must be correlated [...] assay is performed by Multiplexed PCR, utilizing [facility] Film Array. 08/21/2024 2:25 PM EST 08/22/2024 2:39 PM EST us Yonathan Snider MD LAB BLOOD ORDERABLES Final Resul t [facility] [address] [place] [address] [phone] documented in this encounter Visit Diagnoses Diagnosis Subacute cough documented in this encounter Additional Health Concerns Assessment Noted Time PHQ-9 Depression Total Score: 22 025 10:31 AM EST documented as of this encounter Care Teams Millinery Blocker Relationship Specialty Start Date End Date Zeinab Sykes MD [address] [place] [address] PCP - General Internal Medicine 01/02/24 Tomeka Martins Swatch PasterJob Developer 10/27/23 documented as of this encounter
== END ==
LOC: HO.SL 20:30
PROVIDERS: Visit Provider Internal Medicine
DX: Z13.89 Encounter for screening for other disorder (principal)

== ENCOUNTER 2024-09-18 15:48 | Outpatient (REF) | payer MEDICAID, SELFPAY ==
[2024-09-18 17:27] LABS: Blood Urea Nitrogen 13 mg/dL (9-16); Estimated Glomerular Filt Rate 55
--- OUTSIDE RECORDS SUMMARY | 2024-09-18 19:49 | XMS_ITS | Encounter Summary ---
Author Organization [facility] Address [address] [place] [address] 7t [place] [address] Care Team Providers Care Human Resources Training Manager Name Role Phone Oralia Aguila MD Primary Care Provider [phone] Zeinab Sykes MD Primary Care Provider + Reason for Visit * Reason Onset Date Comments Med Refill 05/05/2023 Encounter Details Date Type Department Care Team (Late st Contact Info) Description 05/05/2023 Refill [facility] [address] [place], [place] [phone] Oralia Aguila MD [address] [place], [place] [phone] Other intervertebral disc displacement, lumbar region Social [...] 5- 325 MG tablet to besent to [facility] [place], [place] - 230 [facility] documented in this encounter Plan of Treatment Upcoming Encounters Date Type Department Care Team (Late st Contact Info) Description 09/25/2024 9:45 AM EDT Office Visit [facility] 230 [facility] [place] [address] 10/09/2024 11:45 AM EDT Office Visit [facility] [address] [place] [address] [place] [address] documented as of this encounter Goals Goal Patient Goal Type Associated Problems Recent Progress Patient-Stated? Author Patient will manage their medication General On track( 023 11:18 AM EDT) Citlali Ocampo, PharmD Note: Began medboxes. Goal achieved 11/19/22. Patient graduated from [facility]. documented as of this encounter Visit Diagnoses Diagnosis Other intervertebral disc displacement, lumbar region documented in this encounter Care Teams Human Resources Training Manager Relationship Specialty Start Date End Date [place] [address] PCP - General Family Medicine 04/26/23 01/01/24 Zeinab Sykes MD [address] [place] [address] PCP - General Internal Medicine 01/02/24 Tomeka Martins Paving And Surfacing LabourerProduct Development Coordinator 10/27/23 documented as of this encounter
--- OUTSIDE RECORDS SUMMARY | 2024-09-18 19:49 | XMS_ITS | Encounter Summary ---
Author Organization [employer] Address [address] [facility] 7t [place] [address] Care Team Providers Care Back Padder Name Role Phone Zeinab Sykes MD Primary Care Provider + Encounter Details Date Type Department Care Team ([facility] st Contact Info) Description 08/30/2024 Refill [facility] 230 [place], [place] [phone] Zeinab Sykes MD 230 [place] [address] Social History Tobacco Use Types Packs/Day Years [...] AM EDT Office Visit [facility] [address] [place] [address] 10/09/2024 11:45 AM EDT Office Visit [facility] [address] [place] [address] Zeinab Sykes MD [address] [place] [address] documented as of this encounter Goals Goal [...] documented as of this encounter Care Teams Back Padder Relationship Specialty Start Date End Date Zeinab Sykes MD [address] [place] [address] PCP - General Internal Medicine 01/02/24 Tomeka Martins Scoop FillerContent Strategist 10/27/23 documented as of this encounter
--- OUTSIDE RECORDS SUMMARY | 2024-09-18 19:49 | XMS_ITS | Encounter Summary ---
Author Organization [employer] Address [address] [facility] 7t [place] [address] Care Team Providers Care Marketing Communication Manager Name Role Phone Zeinab Sykes MD Primary Care Provider + Reason for Visit * Reason Comments Med Refill Encounter Details Date Type Department Care Team ([facility] st Contact Info) Description 08/29/2024 Refill [facility] [address] [place] [address] Oralia Aguila MD [address] [place] [address] Social History Tobacco Use Types Packs/Day Years [...] Description 09/25/2024 9:45 AM EDT Office Visit [address] [address] 10/09/2024 11:45 AM EDT Office Visit [facility] [address] [place] [address] Zeinab Sykes MD [address] [place] [address] documented as of this encounter Goals Goal [...] documented as of this encounter Care Teams Marketing Communication Manager Relationship Specialty Start Date End Date Zeianb Sykes MD [address] [place] [address] PCP - General Internal Medicine 01/02/24 Tomeka Martins Redye HandHot Worker 10/27/23 documented as of this encounter
--- OUTSIDE RECORDS SUMMARY | 2024-09-18 19:49 | XMS_ITS | Encounter Summary ---
Author Organization [employer] Address [address] [facility] 7t [place] [address] Care Team Providers Care Manufacturing Engineer Paint Name Role Phone Zeinab Sykes MD Primary Care Provider + Reason for Visit * Reason Comments Med Refill Encounter Details Date Type Department Care Team ([facility] st Contact Info) Description 05/04/2024 Refill [facility] 230 [place], [place] [phone] Zeinab Sykes MD [address] [place] [address] Other intervertebral disc displacement, lumbar region Social [...] Description 09/25/2024 9:45 AM EDT Office Visit [facility] [address] [place] [address] 10/09/2024 11:45 AM EDT Office Visit [facility] [address] [place] [address] Zeinab Sykes MD [address] [place] [address] documented as of this encounter Goals Goal Patient Goal Type Associated Problems Recent Progress Patient-Stated? Author Patient will manage their medication General On track( 023 11:18 AM EDT) No Citlali Armando, PharmD Note: Began medboxes. Goal achieved 11/19/22. Patient graduated from [facility]. documented as of this encounter Visit Diagnoses Diagnosis Other intervertebral disc displacement, lumbar region documented in this encounter Additional Health Concerns Assessment Noted Time PHQ-9 Depression Total Score: 18 024 1:46 PM EDT documented as of this encounter Care Teams Manufacturing Engineer Paint Relationship Specialty Start Date End Date Zeinab Sykes MD [address] [place] [address] PCP - General Internal Medicine 01/02/24 Tomeka Martins Manager RecruitmentFish House Worker 10/27/23 documented as of this encounter
--- OUTSIDE RECORDS SUMMARY | 2024-09-18 19:49 | XMS_ITS | Encounter Summary ---
Author Organization [employer] Address [address] [facility] 7t [place] [address] Care Team Providers Care Branding Specialist Name Role Phone Zeinab Sykes MD Primary Care Provider + Reason for Visit * Reason Onset Date Comments Results 08/27/2024 Encounter Details Date Type Department Care Team ([facility] Contact Info) Description 08/27/2024 Telephone [facility] MEDICINE [address] [place], [place] [phone] Zeinab Sykes MD 230 [place] [address] Results Social History Tobacco Use Types Packs/Day [...] 4:57 PM EST TC placed to pt, Yoono ID: [id number], regarding message below per Dr. Snider. Pt [...] results: X-RAY Date when done: 08/22/2023 Facility: [facility] * Telephone Encounter - Nancy Slade - 08/27/2024 3:35 PM EST TC from pt requesting call back regarding Results. Type of results: X-RAY Date when done: 08/22/2023 Facility: [facility] documented in this encounter Plan of Treatment Upcoming Encounters Date Type Department Care Team (Late st Contact Info) Description 09/25/2024 9:45 AM EDT Office Visit [facility] MEDICINE [address] [place] [address] 10/09/2024 11:45 AM EDT Office Visit [facility] MEDICINE [address] [place] [address] Zeinab Sykes MD [address] [place] [address] documented as of this encounter Goals Goal Patient Goal Type Associated Problems Recent Progress Patient-Stated? Author Patient will manage their medication General On track( 023 11:18 AM EDT) Citlali Ocampo PharmD Note: Began medboxes. Goal achieved 11/19/22. Patient graduated from [facility]. documented as of this encounter Visit Diagnoses Not on filedocumented in this encounter Additional Health Concerns Assessment Noted Time PHQ-9 Depression Total Score: 22 025 10:31 AM EST documented as of this encounter Care Teams Branding Specialist Relationship Specialty Start Date End Date Zeinab Sykes MD [address] [place] [address] PCP - General Internal Medicine 01/02/24 Tomeka Martins Applications ConsultantSecondary Set Up Man 10/27/23 documented as of this encounter
--- OUTSIDE RECORDS SUMMARY | 2024-09-18 19:49 | XMS_ITS | Encounter Summary ---
Author Organization [employer] Address [address] [facility] 7t [place] [address] Care Team Providers Care Silver Steward Name Role Phone Evelyn Ledesma Primary Care Provider [phone] Oralia Aguila MD Primary Care Provider [phone] Zeinab Sykes MD Primary Care Provider + Reason for Visit * Reason Onset Date Comments case from lab 11/04/2022 Encounter Details Date Type Department Care Team (Late st Contact Info) Description 11/04/2022 Telephone [facility] ADULT DENTAL [address] [place] [address] Asad Shore DDS [address] [place] [address] case from lab Social History Tobacco Use [...] Office Visit [facility] MEDICINE [address] [place] [address] 10/09/2024 11:45 AM EDT Office Visit [address] [address] Zeinab Sykes MD [address] [place] [address] documented as of this encounter Visit Diagnoses Not on filedocumented in this encounter Care Teams Silver Steward Relationship Specialty Start Date End Date Evelyn Ledesma FNP PCP - General Family Medicine 03/15/22 04/25/23 Oralia Aguila MD [address] [place] [address] PCP - General Family Medicine 04/26/23 01/01/24 Zeinab Sykes MD [address] [place] [address] PCP - General Internal Medicine 01/02/24 Tomeka Martins Dish Cloth InspectorMetalizing Machine Operator 10/27/23 documented as of this encounter
--- OUTSIDE RECORDS SUMMARY | 2024-09-18 19:49 | XMS_ITS | Encounter Summary ---
Author Organization [facility], Address [address] [place] [address] Phone Care Team Providers Care Nurse Infection Control Name Role Phone Evelyn Rodriguez Primary Care Provider Silvana vailable Encounter Details Date Type Department Care Team (Late st Contact Info) Description 02/18/2023 Documentation Only [facility], [address] [place] [address] Xiao Sheppard [address] [place] [address] Social History Tobacco Use Types [...] on filedocumented in this encounter Care Teams Nurse Infection Control Relationship Specialty Start Date End Date Evelyn Rodriguez FNP PCP - General 02/18/23 documented as of this encounter
--- OUTSIDE RECORDS SUMMARY | 2024-09-18 19:49 | XMS_ITS | Encounter Summary ---
Author Organization [employer] [facility] Address [address] [place] [address] 7t [place] [address] Care Team Providers Care Commercial Lender Name Role Phone Oralia Aguila MD Primary Care Provider [phone] Zeinab Sykes MD Primary Care Provider + Reason for Visit * Reason Comments Med Refill Encounter Details Date Type Department Care Team (Late Contact Info) Description 09/21/2023 Refill [facility] MEDICINE [address] [place] [address] Oralia Aguila MD [address] [place], [place] [phone] Neuropathy Social History Tobacco Use Types Packs/Day [...] Upcoming Encounters Date Type Department Care Team ([facility] Contact Info) Description 09/25/2024 9:45 AM EDT Office Visit [facility] MEDICINE [address] [place] [address] [phone] 10/09/2024 11:45 AM EDT Office Visit [facility] MEDICINE [address] [place] [address] Zeinab Sykes MD [address] [place] [address] documented as of this encounter Goals Goal [...] site documented in this encounter Care Teams Commercial Lender Relationship Specialty Start Date End Date Oralia Aguila MD [address] [place] [address] PCP - General Family Medicine 04/26/23 01/01/24 Zeinab Sykes MD [address] [place] [address] PCP - General Internal Medicine 01/02/24 Tomeka Martins Music ComposerInspector Metal Fabricating 10/27/23 documented as of this encounter
--- OUTSIDE RECORDS SUMMARY | 2024-09-18 19:49 | XMS_ITS | Encounter Summary ---
Author Organization [employer] [facility] Address [address] [place] [address] 7t [place] [address] Care Team Providers Care Roast Master Name Role Phone Oralia Aguila MD Primary Care Provider [phone] Zeinab Sykes MD Primary Care Provider + Reason for Visit * Reason Comments Med Refill Encounter Details Date Type Department Care Team (Late Contact Info) Description 08/09/2023 Refill [facility] MEDICINE [address] [place] [address] Oralia Aguila MD 230 [place], [place] [phone] Other intervertebral disc displacement, lumbar region Social [...] Description 09/25/2024 9:45 AM EDT Office Visit [address] [address] 10/09/2024 11:45 AM EDT Office Visit [address] [address] Zeinab Sykes MD [address] [place], [place] [phone] documented as of this encounter Goals Goal Patient Goal Type Associated Problems Recent Progress Patient-Stated? Author Patient will manage their medication General On track( 023 11:18 AM EDT) Citlali Ocampo, Anoop Note: Began medboxes. Goal achieved 11/19/22. Patient graduated from [facility]. documented as of this encounter Visit Diagnoses Diagnosis Other intervertebral disc displacement, lumbar region documented in this encounter Care Teams Roast Master Relationship Specialty Start Date End Date Oralia Aguila MD [address] [place] [address] PCP - General Family Medicine 04/26/23 01/01/24 Zeinab Sykes MD [address] [place] [address] PCP - General Internal Medicine 01/02/24 Tomeka Martins Branch LeadDirector Public Service 10/27/23 documented as of this encounter
--- OUTSIDE RECORDS SUMMARY | 2024-09-18 19:49 | XMS_ITS | Encounter Summary ---
Author Organization [employer] [facility] Address [address] [place] [address] 7t [place] [address] Care Team Providers Care Head Up Operator Name Role Phone Evelyn Ledesma Primary Care Provider [phone] Oralia Aguila MD Primary Care Provider [phone] Zeinab Sykes MD Primary Care Provider + Reason for Visit * Reason Onset Date Comments Appointment Request 12/20/2022 Encounter Details Date Type Department Care Team (Late st Contact Info) Description 12/20/2022 Telephone [facility] MEDICINE [address] [place] [address] Evelyn Ledesma FNP [address] [place] [address] Dept [place] [address] Appointment Request Social History Tobacco Use Types [...] an earlier day) Please contact pt at [phone] documented in this encounter Plan of Treatment Upcoming Encounters Date Type Department Care Team (Late st Contact Info) Description 09/25/2024 9:45 AM EDT Office Visit [facility] MEDICINE [address] [place] [address] 10/09/2024 11:45 AM EDT Office Visit [facility] MEDICINE [address] [place] [address] Zeinab Sykes MD [address] [place] [address] documented as of this encounter Goals Goal Patient Goal Type Associated Problems Recent Progress Patient-Stated? Author Patient will manage their medication General On track( 023 11:18 AM EDT) Citlali Ocampo PharmD Note: Began medboxes. Goal achieved 11/19/22. Patient graduated from [facility]. documented as of this encounter Visit Diagnoses Not on filedocumented in this encounter Care Teams Head Up Operator Relationship Specialty Start Date End Date Evelyn Ledesma FNP PCP - General Family Medicine 03/15/22 04/25/23 Oralia Aguila MD [address] [place] [address] PCP - General Family Medicine 04/26/23 01/01/24 Zeinab Sykes MD [address] [place] [address] PCP - General Internal Medicine 01/02/24 Tomeka Martins Chemical Plant WorkerLumber Yard Worker 10/27/23 documented as of this encounter
--- OUTSIDE RECORDS SUMMARY | 2024-09-18 19:49 | XMS_ITS | Encounter Summary ---
Author Organization [employer] [facility] Address [address] [place] [address] 7t [place] [address] Care Team Providers Care Hazardous Materials Handler Name Role Phone Evelyn Ledesma Primary Care Provider [phone] Oralia Aguila MD Primary Care Provider [phone] Zeinab Sykes MD Primary Care Provider + Encounter Details Date Type Department Care Team (Latest Contact Info) Description 10/30/2020 Abstract [facility] CONVERSIONS Dental, Provider, DDS Social History [...] Description 09/25/2024 9:45 AM EDT Office Visit [facility] MEDICINE [address] [place] [address] [phone] 10/09/2024 11:45 AM EDT Office Visit [facility] MEDICINE [address] [place] [address] [phone] Zeinab Sykes MD [address] [place] [address] [phone] documented as of this encounter Visit Diagnoses Not on filedocumented in this encounter Care Teams Hazardous Materials Handler Relationship Specialty Start Date End Date Evelyn Ledesma FNP PCP - General Family Medicine 03/15/22 04/25/23 Oralia Aguila MD 230 [place] [address] PCP - General Family Medicine 04/26/23 01/01/24 Zeinab Sykes MD 230 [place] [address] PCP - General Internal Medicine 01/02/24 Tomeka Martins Applications CoordinatorForge Shop Machine Repairer 10/27/23 documented as of this encounter
--- OUTSIDE RECORDS SUMMARY | 2024-09-18 19:49 | XMS_ITS | Encounter Summary ---
Author Organization [employer] [facility] Address [address] [facility] 7t [place] [address] Care Team Providers Care Entertainment & Media Correspondent Name Role Phone Zeinab Sykes MD Primary Care Provider + Reason for Visit * Reason Onset Date Comments Med Refill 07/16/2024 Encounter Details Date Type Department Care Team ([facility] st Contact Info) Description 07/16/2024 Telephone [facility] MEDICINE [address] [place], [place] [phone] Zeinab Sykes MD [address] [place], [place] [phone] Med Refill Social History Tobacco Use Types [...] 10 MG capsule To be sent to: [facility] pharmacy documented in this encounter Plan of Treatment Upcoming Encounters Date Type Department Care Team (Late st Contact Info) Description 09/25/2024 9:45 AM EDT Office Visit [facility] MEDICINE [address] [place] [address] [phone] 10/09/2024 11:45 AM EDT Office Visit [facility] MEDICINE [address] [place] [address] Zeinab Sykes MD [address] [place] [address] documented as of this encounter Goals Goal [...] documented as of this encounter Care Teams Entertainment & Media Correspondent Relationship Specialty Start Date End Date Zeinab Sykes MD [address] [place] [address] PCP - General Internal Medicine 01/02/24 Tomeka Martins Senior Management ConsultantHuman Resource Professional 10/27/23 documented as of this encounter
--- OUTSIDE RECORDS SUMMARY | 2024-09-18 19:49 | XMS_ITS | Encounter Summary ---
Author Organization [employer] [facility] Address [address] [place] [address] 7t [place] [address] Care Team Providers Care Speech Language Therapist Name Role Phone Evelyn Ledesma Primary Care Provider [phone] Oralia Aguila MD Primary Care Provider [phone] eZinab Sykes MD Primary Care Provider + [...] [facility] MED[facility] [address] [place] [address] [phone] 10/09/2024 11:45 AM EDT Office Visit [facility] [address] [place] [address] [phone] Zeinab Sykes MD [address] [place] [address] documented as of this encounter Visit Diagnoses Not on filedocumented in this encounter Care Teams Speech Language Therapist Relationship Specialty Start Date End Date Evelyn Ledesma FNP PCP - General Family Medicine 03/15/22 04/25/23 Oralia Aguila MD 230 [place] [address] PCP - General Family Medicine 04/26/23 01/01/24 Zeinab Sykes MD [address] [place] [address] PCP - General Internal Medicine 01/02/24 Tomeka Martins Audio SpecialistProvider Relations Representative 10/27/23 documented as of this encounter
--- OUTSIDE RECORDS SUMMARY | 2024-09-18 19:49 | XMS_ITS | Encounter Summary ---
Author Organization [employer] Address [address] [facility] 7t [place] [address] Care Team Providers Care Med Spa Manager Name Role Phone Zeinab Sykes MD [...] Description 09/25/2024 9:45 AM EDT Office Visit [facility] MEDICINE [address] [place] [address] [phone] 10/09/2024 11:45 AM EDT Office Visit [facility] MEDICINE [address] [place] [address] [phone] Zeinab Sykes MD [address] [place] [address] documented as of this encounter Goals Goal Patient Goal Type Associated Problems Recent Progress Patient-Stated? Author Patient will manage their medication General On track( 023 11:18 AM EDT) Citlali Ocampo PharmD Note: Began medboxes. Goal achieved 11/19/22. Patient graduated from [facility]. documented as of this encounter Visit Diagnoses Not on filedocumented in this encounter Additional Health Concerns Assessment Noted Time PHQ-9 Depression Total Score: 22 025 10:31 AM EST documented as of this encounter Care Teams Med Spa Manager Relationship Specialty Start Date End Date Zeinab Sykes MD [address] [place] [address] PCP - General Internal Medicine 01/02/24 Tomeka Martins Mechanic Welder Truck DriverDirector Volunteer Services 10/27/23 documented as of this encounter
--- OUTSIDE RECORDS SUMMARY | 2024-09-18 19:49 | XMS_ITS | Encounter Summary ---
Author Organization [employer] [facility] Address [address] [place] [address] 7t [place] [address] Care Team Providers Care Lithographers Printer Name Role Phone Evelyn Ledesma Primary Care Provider [phone] Oralia Aguila MD Primary Care Provider [phone] Zeinab Sykes MD Primary Care Provider + Encounter Details Date Type Department Care Team (Late Contact Info) Description 08/20/2022 Orders Only [facility] MEDICINE [address] [place] [phone] Karen Henderson FNP Social History Tobacco Use [...] 9:45 AM EDT Office Visit [facility] MEDICINE [address] [place] [address] 10/09/2024 11:45 AM EDT Office Visit [facility] MEDICINE [address] [place] [address] Zeinab Sykes MD [address] [place] [address] documented as of this encounter Visit Diagnoses Not on filedocumented in this encounter Care Teams Lithographers Printer Relationship Specialty Start Date End Date Evelyn Ledesma FNP PCP - General Family Medicine 03/15/22 04/25/23 Oralia Aguila MD [address] [place] [address] [phone] PCP - General Family Medicine 04/26/23 01/01/24 Zeinab Sykes MD [address] [place] [address] PCP - General Internal Medicine 01/02/24 Tomeka Martins Billing AdministratorLap Hand Tool 10/27/23 documented as of this encounter
--- OUTSIDE RECORDS SUMMARY | 2024-09-18 19:49 | XMS_ITS | Encounter Summary ---
Author Organization [employer] Address [address] [place] [address] 7t [place] [address] Care Team Providers Care Paint Stock Clerk Name Role Phone Evelyn Ledesma Primary Care Provider [phone] Oralia Aguila MD Primary Care Provider [phone] Zeinab Sykes MD Primary Care Provider + Reason for Visit * Reason Onset Date Comments medical clearance 02/11/2023 Encounter Details Date Type Department Care Team (Late st Contact Info) Description 02/11/2023 Telephone [facility] ADULT DENTAL [address] [place] [address] Asad Shore DDS [address] [place] [address] medical clearance Social History Tobacco Use Types [...] Description 09/25/2024 9:45 AM EDT Office Visit [address] [phone] 10/09/2024 11:45 AM EDT Office Visit [address] [phone] Zeinab Sykes MD [address] [place] [address] [phone] documented as of this encounter Goals Goal Patient Goal Type Associated Problems Recent Progress Patient-Stated? Author Patient will manage their medication General On track( 023 11:18 AM EDT) Citlali Ocampo, PharmD Note: Began medboxes. Goal achieved 11/19/22. Patient graduated from [facility]. documented as of this encounter Visit Diagnoses Not on filedocumented in this encounter Care Teams Paint Stock Clerk Relationship Specialty Start Date End Date Evelyn Ledesma FNP PCP - General Family Medicine 03/15/22 04/25/23 Oralia Aguila MD [address] [place] [address] [phone] PCP - General Family Medicine 04/26/23 01/01/24 Zeinab Sykes MD [address] [place] [address] [phone] PCP - General Internal Medicine 01/02/24 Tomeka Martins Automatic MounterRegistered Nurses 10/27/23 documented as of this encounter
--- OUTSIDE RECORDS SUMMARY | 2024-09-18 19:49 | XMS_ITS | Encounter Summary ---
Author Organization [employer] [facility] Address [address] [place] [address] [place] [address] Care Team Providers Care Automatic Profile Sander Operator Name Role Phone Evelyn Ledesma Primary Care Provider [phone] Oralia Aguila MD Primary Care Provider [phone] Zeinab Sykes MD Primary Care Provider + Reason for Visit * Reason Comments Med Refill Encounter Details Date Type Department Care Team (Late st Contact Info) Description 02/05/2023 Refill [facility] MEDICINE [address] [place] [address] Evelyn Ledesma FNP [address] [place] [address] Dept [place] [address] Neuropathy Social History Tobacco Use Types Packs/Day [...] Office Visit [facility] MEDICINE [address] [place] [address] 10/09/2024 11:45 AM EDT Office Visit [facility] MEDICINE [address] [place] [address] Zeinab Sykes MD [address] [place] [address] documented as of this encounter Goals Goal Patient Goal Type Associated Problems Recent Progress Patient-Stated? Author Patient will manage their medication General On track( 023 11:18 AM EDT) Citlali Ocampo, Anoop Note: Began medboxes. Goal achieved 11/19/22. Patient graduated from [facility]. documented as of this encounter Visit Diagnoses Diagnosis Neuropathy Mononeuritis of unspecified site documented in this encounter Care Teams Automatic Profile Sander Operator Relationship Specialty Start Date End Date Evelyn Ledesma FNP PCP - General Family Medicine 03/15/22 04/25/23 Oralia Aguila MD [address] [place] [address] PCP - General Family Medicine 04/26/23 01/01/24 Zeinab Sykes MD [address] [place] [address] PCP - General Internal Medicine 01/02/24 Tomeka Martins Pantry CookAnimal Doctor 10/27/23 documented as of this encounter
--- OUTSIDE RECORDS SUMMARY | 2024-09-18 19:49 | XMS_ITS | Encounter Summary ---
Author Organization [employer] Address [address] [place] [address] 7t [place] [address] Care Team Providers Care Screen Cleaner Name Role Phone Zeinab Sykes MD Primary Care Provider + Reason for Visit * Reason Onset Date Comments Med Refill 08/31/2024 Encounter Details Date Type Department Care Team (Late st Contact Info) Description 08/31/2024 Refill [facility] MEDICINE 230 [place], [place] [phone] Zeinab Sykes MD [address] [place] [address] Other intervertebral disc displacement, lumbar region Social [...] 5-325 MG tablet To be sent to: [facility] - [place], [place] - [address] [place] [address] documented in this encounter Plan of Treatment Upcoming Encounters Date Type Department Care Team ([facility] st Contact Info) Description 09/25/2024 9:45 AM EDT Office Visit [facility] MEDICINE [address] [place] [address] 10/09/2024 11:45 AM EDT Office Visit [facility] MEDICINE [address] [place] [address] Zeinab Sykes MD [address] [place] [address] documented as of this encounter Goals Goal Patient Goal Type Associated Problems Recent Progress Patient-Stated? Author Patient will manage their medication General On track( 023 11:18 AM EDT) No Citlali Armando, Anoop Note: Began medboxes. Goal achieved 11/19/22. Patient graduated from [facility]. documented as of this encounter Visit Diagnoses Diagnosis Other intervertebral disc displacement, lumbar region documented in this encounter Additional Health Concerns Assessment Noted Time PHQ-9 Depression Total Score: 22 025 10:31 AM EST documented as of this encounter Care Teams Screen Cleaner Relationship Specialty Start Date End Date Zeinab Sykes MD [address] [place] [address] PCP - General Internal Medicine 01/02/24 Tomeka Martins Recruitment DirectorIt Program Engagement Director 10/27/23 documented as of this encounter
--- OUTSIDE RECORDS SUMMARY | 2024-09-18 19:49 | XMS_ITS | Clinical Summary ---
Author Organization [facility] Address [address] [place] [address] Care Team Providers Care Women'S Health Care Nurse Practitioner Name Role Phone Meryl Montes Primary Care [...] age to complete this topic Care Teams Women'S Health Care Nurse Practitioner Relationship Specialty Start Date End Date Meryl Montes [address] [place] [phone] PCP - General 05/07/22
--- OUTSIDE RECORDS SUMMARY | 2024-09-18 19:49 | XMS_ITS | Encounter Summary ---
Author Organization [employer] Organization [facility] Address [address] [place] [address] 7t [place] [address] Care Team Providers Care Sausage Stringer Name Role Phone Oralia Aguila MD Primary Care Provider [phone] Zeinab Sykes MD Primary Care Provider + Reason for Visit * Reason Comments Med Refill Encounter Details Date Type Department Care Team (Late Contact Info) Description 07/06/[address] [facility] [address] [place] [address] Bryn Franklin MD [address] [place] [address] Social History Tobacco Use Types Packs/Day Years [...] 9:45 AM EDT Office Visit [facility] MED[facility]INE [address] [place] [address] [phone] 10/09/2024 11:45 AM EDT Office Visit [facility] MED[facility] [address] [place] [address] [phone] Zeinab Sykes MD [address] [place] [address] documented as of this encounter Goals Goal Patient Goal Type Associated Problems Recent Progress Patient-Stated? Author Patient will manage their medication General On track( 023 11:18 AM EDT) Citlali Ocampo, Anoop Note: Began medboxes. Goal achieved 11/19/22. Patient graduated from [facility]. documented as of this encounter Visit Diagnoses Not on filedocumented in this encounter Care Teams Sausage Stringer Relationship Specialty Start Date End Date Oralia Aguila MD [address] [place] [address] PCP - General Family Medicine 04/26/23 01/01/24 Zeinab Sykes MD [address] [place] [address] PCP - General Internal Medicine 01/02/24 Tomeka Martins Color AdviserBurr Picker 10/27/23 documented as of this encounter
--- OUTSIDE RECORDS SUMMARY | 2024-09-18 19:49 | XMS_ITS | Encounter Summary ---
Author Organization [employer] [facility] Address [address] [facility] 7t [place] [address] Care Team Providers Care Mental Health Program Manager Name Role Phone Evelyn Ledesma Primary Care Provider [phone] Oralia Aguila MD Primary Care Provider [phone] Zeinab Sykes MD Primary Care Provider + Encounter Details Date Type Department Care Team ([facility] Contact Info) Description 10/22/2022 Orders Only [facility] MED[facility]INE [address] [place] [address] Evelyn Ledesma FNP [address] [place] [address] Dept [place] [address] Social History Tobacco Use Types Packs/Day Years [...] Upcoming Encounters Date Type Department Care Team ([facility] Contact Info) Description 09/25/2024 9:45 AM EDT Office Visit [facility] [address] [place] [address] 10/09/2024 11:45 AM EDT Office Visit [address] [phone] Zeinab Sykes MD [address] [place] [address] documented as of this encounter Visit Diagnoses Not on filedocumented in this encounter Care Teams Mental Health Program Manager Relationship Specialty Start Date End Date Evelyn Ledesma FNP PCP - General Family Medicine 03/15/22 04/25/23 Oralia Aguila MD [address] [place] [phone] PCP - General Family Medicine 04/26/23 01/01/24 Zeinab Sykes MD [address] [place] [address] PCP - General Internal Medicine 01/02/24 Tomeka Martins CablemanTerminal Press Operator 10/27/23 documented as of this encounter
--- OUTSIDE RECORDS SUMMARY | 2024-09-18 19:49 | XMS_ITS | Encounter Summary ---
Author Organization [employer] [facility] Address [address] [place] [address] 7 [place] [address] Care Team Providers Care Wood Heel Flap Rubber Name Role Phone Evelyn Ledesma Primary Care Provider [phone] Oralia Aguila MD Primary Care Provider [phone] Zeinab Sykes MD Primary Care Provider + Reason for Visit * Reason Onset Date Comments Referral 02/03/2023 Renewal Encounter Details Date Type Department Care Team (Late st Contact Info) Description 02/03/2023 Telephone [facility] MEDICINE [address] [place] [address] Evelyn Ledesma FNP [address] [place] [address] Dept [place] [address] Referral (Renewal ) Social History Tobacco Use [...] Description 09/25/2024 9:45 AM EDT Office Visit [address] [address] 10/09/2024 11:45 AM EDT Office Visit [address] [address] Zeinab Sykes MD [address] [place], [place] [phone] documented as of this encounter Goals Goal Patient Goal Type Associated Problems Recent Progress Patient-Stated? Author Patient will manage their medication General On track( 023 11:18 AM EDT) Citlali Ocampo, PharmD Note: Began medboxes. Goal achieved 11/19/22. Patient graduated from [facility]. documented as of this encounter Visit Diagnoses Not on filedocumented in this encounter Care Teams Wood Heel Flap Rubber Relationship Specialty Start Date End Date Evelyn Ledesma FNP PCP - General Family Medicine 03/15/22 04/25/23 Oralia Aguila MD [address] [place] [address] [phone] PCP - General Family Medicine 04/26/23 01/01/24 Zeinab Sykes MD [address] [place] [address] [phone] PCP - General Internal Medicine 01/02/24 Tomeka Martins Education RnAccount Services Representative 10/27/23 documented as of this encounter
--- OUTSIDE RECORDS SUMMARY | 2024-09-18 19:49 | XMS_ITS | Encounter Summary ---
Author Organization [employer] [facility] Address [address] [place] [address] 7t [place] [address] Care Team Providers Care Floor Runner Name Role Phone Evelyn Ledesma Primary Care Provider [phone] Oralia Aguila MD Primary Care Provider [phone] Zeinab Sykes MD Primary Care Provider + Reason for Visit * Reason Onset Date Comments Prior Authorization 12/28/2022 Encounter Details Date Type Department Care Team (Late st Contact Info) Description 12/28/2022 Telephone [facility] MEDICINE [address] [place] [address] Evelyn Ledesma FNP [address] [place] [address] Dept [place] [address] Prior Authorization Social History Tobacco Use Types [...] AM EDT T/C placed to pt via [employer] Log[employer] Assistant Zeinab #[id number]. Advised of message from pcp re: lab [...] all other NSAIDS. Do you have a hot strip finisher yet? If not, your PCP would like [...] 12/28/2022 10:18 AM EDT THOMAS Emery from [employer] requesting XL pull ups and disposable under pads . States faxed request couple days ago and have not gotten a response . Informs paper work 12/29/22. Please call to clarify at phone # [phone] . documented in this encounter Plan of Treatment Upcoming Encounters Date Type Department Care Team (Late st Contact Info) Description 09/25/2024 9:45 AM EDT Office Visit [facility] MEDICINE [address] [place] [address] 10/09/2024 11:45 AM EDT Office Visit [facility] MED[facility]INE [address] [place] [address] Zeinab Sykes MD [address] [place] [address] documented as of this encounter Goals Goal Patient Goal Type Associated Problems Recent Progress Patient-Stated? Author Patient will manage their medication General On track( 023 11:18 AM EDT) Citlali Ocampo, Anoop Note: Began medboxes. Goal achieved 11/19/22. Patient graduated from [facility]. documented as of this encounter Visit Diagnoses Not on filedocumented in this encounter Care Teams Floor Runner Relationship Specialty Start Date End Date Evelyn Ledesma FNP PCP - General Family Medicine 03/15/22 04/25/23 Oralia Aguila MD [address] [place] [phone] PCP - General Family Medicine 04/26/23 01/01/24 Zeinab Sykes MD [address] [place] [address] PCP - General Internal Medicine 01/02/24 Tomeka Martins Rivet TosserPattern Maker 10/27/23 documented as of this encounter
--- OUTSIDE RECORDS SUMMARY | 2024-09-18 19:49 | XMS_ITS | Encounter Summary ---
Author Organization [employer] Address [address] [facility] 7t [place] [address] Care Team Providers Care Windscreen Fitter Name Role Phone Zeinab Sykes MD Primary Care Provider + Reason for Visit * Reason Comments Cough Encounter Details Date Type Department Care Team ([facility] Contact Info) Description 08/21/2024 5:20 PM EST Office Visit [facility] [address] [place] [address] [phone] Yonathan Snider MD [address] [place] [address] Subacute cough Social History Tobacco Use Types [...] day for 4 days. Patient presents [facility] to 3-week duration of cough [...] Description 09/25/2024 9:45 AM EDT Office Visit [facility] [address] [place] [address] 10/09/2024 11:45 AM EDT Office Visit [facility] [address] [place] [address] Zeinab Sykes MD [address] [place] [address] documented as of this encounter Goals Goal Patient Goal Type Associated Problems Recent Progress Patient-Stated? Author Patient will manage their medication General On track( 023 11:18 AM EDT) Citlali Ocampo PharmD Note: Began medboxes. Goal achieved 11/19/22. Patient graduated from [facility]. documented as of this encounter [...] PM EST Narrative 08/22/2024 4:30 PM EST ?[facility] ?[address] ?[place] [address] ?XRay Report ? Signed ? Patient: Gerry Mclaughlin,Rhonda ?MR# ?? : [id number] ? : 1960 ?Acct:[id number] ? Age/Sex: 63 / F ?ADM Date: 08/22/24 ? Loc: HO.HHCX ? Attending Dr: Yonathan Snider MD ? Ordering Physician: Yonathan Snider MD ?? Date of Service: 08/22/24 ?? Procedure(s): XR chest 2V ?? Accession Number(s): [id number] ? cc: Yonathan Snider MD ? EXAMINATION: [...] DD/ 1553 ? TD/TT: 08/22/24 1600 ? Software Asset Manager: MSM ? Procedure Note Carolina Hernandez - 08/22/[address] [address] XRay Report Signed Patient: Bertin FernándezMl# : [id number] : 1960Acct:[id number] Age/Sex: 63 / FADM Date: 08/22/24 Loc: .CX Attending Dr: Yonathan Snider MD Ordering Physician: Yonathan Snider MD Date of Service: 08/22/24 Procedure(s): XR chest 2V Accession Number(s): [id number] cc: Yonathan Snider MD EXAMINATION: XR CHEST [...] 08/22/24 1627 DD/ 1553 TD/TT: 08/22/24 1600 Software Asset Manager: MSM Yonathan Snider MD IMG XR PROCEDURES Edited Result - Final * Influenza B (ID NOW Rapid Molecular) (08/21/2024 5:37 PM EST) Pathologist [facility] Influenza B Negative Negative, Indeterminate [facility] Swab 08/21/2024 5:37 PM EST Yonathan Sinder MD POINT OF CARE TEST ENTER/EDIT OR DERABLES Final Result [facility] [address] [place] [address] [phone] * Influenza A (ID NOW Rapid Molecular) (08/21/2024 5:37 PM EST) Influenza A Negative Negative, Indeterminate [facility] Swab 08/21/2024 5:37 PM EST Yonathan Snider MD POINT OF CARE TEST ENTER/EDIT OR DERABLES Final Result [facility] [address] [place] [address] [phone] * POCT Rapid COVID Ag (08/21/2024 5:10 PM EST) [facility] Rapid COVID Ag Negative Swab 08/21/2024 5:10 PM EST Yonathan Snider MD POINT OF CARE TEST ENTER/EDIT OR DERABLES Final Result * (ABNORMAL) Respiratory Viral Panel PCR (08/21/2024 2:25 PM EST) [facility] Adenovirus PCR Not Detected Not Detect. [facility] Bordetella pertussis PCR Not Detected Not Detect. [facility] Comment:Interpret results wi th caution. If B. pertussis isspecifically suspected, additional testing using analternate method is recommended. Bordetella parapertussis PCR Not Detected Not Detect. [facility] Chlamydia pneumoniae PCR Not Detected Not Detect. [facility] Coronavirus 229E PCR Not Detected Not Detect. [facility] Coronavirus HKU1 PCR Not Detected Not Detect. [facility] Coronavirus NL63 PCR Not Detected Not Detect. [facility] Coronavirus OC43 PCR Detected(A) Not Detect. [facility] SARS-CoV-2 PCR Not Detected Not Detect. [facility] Comment:SARS-CoV-2 not detec jocelyn by real-time RT-PCR.Note: If clinical suspicion for Sars-CoV-2 is high, continueto maintain precautions and consider repeat testing.Test results should be interpreted in the context ofclinical findings and other laboratory data.Rare polymorphisms exist that could lead to false-negativeor false-positive results. If results do not match theclinical findings, additional testing should be considered.Results reported to [facility].This test has been authorized by the FDA under the EmergencyUse Authorization (EUA) for use by authorized laboratories. Influenza A PCR Not Detected Not Detect. [facility] Influenza B PCR Not Detected Not Detect. [facility] Human metapneumovirus PCR Not Detected Not Detect. [facility] Rhino/Enterovirus PCR Not Detected Not Detect. [facility] Mycoplasma pneumoniae PCR Not Detected Not Detect. [facility] Parainfluenza 1 PCR Not Detected Not Detect. [facility] Parainfluenza 2 PCR Not Detected Not Detect. [facility] Parainfluenza 3 PCR Not Detected Not Detect. [facility] Parainfluenza 4 PCR Not Detected Not Detect. [facility] RSV PCR Not Detected Not Detect. [facility] Resp Panel NA Note See Note H [facility] Comment:All results must be correlated [...] assay is performed by Multiplexed PCR, utilizing [employer]. 08/21/2024 2:25 PM EST 08/22/2024 2:39 PM EST us Yonathan Snider MD LAB BLOOD ORDERABLES Final Resul t [facility] [address] [place] [address] [phone] documented in this encounter Visit Diagnoses Diagnosis Subacute cough documented in this encounter Additional Health Concerns Assessment Noted Time PHQ-9 Depression Total Score: 22 025 10:31 AM EST documented as of this encounter Care Teams Windscreen Fitter Relationship Specialty Start Date End Date Zeinab Sykes MD [address] [place] [address] PCP - General Internal Medicine 01/02/24 Tomeka Martins Petroleum Inspector SupervisorPharmacy Clinical Specialist 10/27/23 documented as of this encounter
--- OUTSIDE RECORDS SUMMARY | 2024-09-18 19:49 | XMS_ITS | Clinical Summary ---
Author Organization [facility], Address [address] [place] [address] [place] [address] Phone Care Team Providers Care Compressor Station Engineer Chief Name Role Phone Evelyn Rodriguez Primary Care [...] age to complete this topic [place] Care Teams Compressor Station Engineer Chief Relationship Specialty Start Date End Date Evelyn Rodriguez FNP PCP - General 02/18/23
--- OUTSIDE RECORDS SUMMARY | 2024-09-18 19:49 | XMS_ITS | Encounter Summary ---
Author Organization [employer] Address [address] [place] [address] 7t [place] [address] Care Team Providers Care Scalehouse Attendant Name Role Phone Zeinab Sykes MD Primary Care Provider + Reason for Visit * Reason Onset Date Comments Med Refill 08/20/2024 Encounter Details Date Type Department Care Team (Late st Contact Info) Description 08/20/2024 Refill [facility] [address] [place], [place] [phone] Zeinab Sykes MD [address] [place], [place] [phone] Type 2 diabetes mellitus without complication, without long-term current use of insulin ([facility]); Other intervertebral disc displacement, lumbar region Social [...] your housing situation today? I have tessa del a rosa 12/21/[address] you [...] 5 % patch To be sent to: [facility] - [place], [place] - [address] [place] [address] documented in this encounter Plan of Treatment Upcoming Encounters Date Type Department Care Team ([facility] st Contact Info) Description 09/25/2024 9:45 AM EDT Office Visit [facility] [address] [place] [address] 10/09/2024 11:45 AM EDT Office Visit [facility] [address] [place] [address] Zeinab Sykes MD [address] [place] [address] documented as of this encounter Goals Goal Patient Goal Type Associated Problems Recent Progress Patient-Stated? Author Patient will manage their medication General On track( 023 11:18 AM EDT) Citlali Ocampo, Anoop Note: Began medboxes. Goal achieved 11/19/22. Patient graduated from [facility]. documented as of this encounter Visit Diagnoses Diagnosis Type 2 diabetes mellitus without complication, without long-term current use of insulin ([facility]) Other intervertebral disc displacement, lumbar region documented in this encounter Additional Health Concerns Assessment Noted Time PHQ-9 Depression Total Score: 22 025 10:31 AM EST documented as of this encounter Care Teams Scalehouse Attendant Relationship Specialty Start Date End Date Zeinab Sykes MD [address] [place] [address] PCP - General Internal Medicine 01/02/24 Tomeka Martins Twill CutterForest Pathologist 10/27/23 documented as of this encounter
--- OUTSIDE RECORDS SUMMARY | 2024-09-18 19:49 | XMS_ITS | Clinical Summary ---
Author Organization [facility] Address [address] [place] [address] 7[address] [place] [address] Care Team Providers Care Siebel Solution Architect Name Role Phone Zeinab Sykes MD Primary [...] in the morning. Active oxymetazoline (Afrin Nasal Gormania) 0.05 % nasal spray Administer 2 sprays [...] complication, without long-term current use of insulin ([facility]) 1 each by Other route Once [...] 024 Active ergocalciferol (Vitamin D2) 1.25 MG (03365 UT) capsule TAKE 1 CAPSULE BY MOUTH ONCE WEEKLY ON TUESDAY MORNING 12 capsule Active sodium chloride (Gregg Nasal Gormania) 0.65 % nasal sprayIndications:A cute nasopharyngitis Administer [...] complication, without long-term current use of insulin ([facility]) USE TWICE DAILY 100 each 5 [...] eorder (will not trigger notification to Pharmacy)) acetaminophen (Tylenol) 325 MG tabletIndications: Acute nasopharyngitis [...] eorder (will not trigger notification to Pharmacy)) Active Problems Problem Noted Date Diagnosed Date [...] bx, I will fu or refer to AEROSPACE QUALITY ENGINEER after US reports. Left foot pain 03/29/2024 [...] disc, s/p vagus nerve stimulator, neuropathy Last GROUP HOME SUPERVISOR Agreement: 03/13/24 Assessment & Plan (07/31/2024 4:57 [...] in 3mo Fatty liver 02/04/2024 Overview (03/29/2024): C abd US on 10/2023 showed Fatty liver. Normal LFTs/albumin Assessment & Plan (03/29/2024 1:40 PM EDT): LFTs remain stable/normal. Dx d/w patient and advised her to continue tight control of DM, weight reduction, try to cut down on opiates and fu with me. I also advised her to avoid ETOH or recreational substances. Seborrheic dermatitis of scalp 01/02/2024 Overview (01/02/2024): Seen at [facility] dermatology Assessment & Plan (03/20/2024 3:50 PM EDT): Generally well controlled, encouraged to continue fu with [facility] derm Refill for fluocinolone today. Housing insecurity 01/02/2024 Assessment & Plan (08/15/2024 1:36 PM EST): See above. Applying for housing and need handicap access. Assessment & Plan (03/20/2024 3:51 PM EDT): Awaiting housing application, lives in abasement FU with SDNE. Stage 3a chronic kidney disease 11/01/2023 Assessment [...] pseudophedrine short term. Will refer her to pin worker again so she can be evaluated [...] albuterol prn. Will refer her back to pin worker. RUQ pain 10/05/2023 Assessment & Plan [...] ballon inside the gastric body placed in [place] for bariatric procedure about 20 cm in [...] lumbar r egion 05/17/2017 Overview (09/17/2022): On GROUP HOME SUPERVISOR contract. discussed tapering percocet options, not interested.. Referred to HIM forms dept for handicap plackards documents. Referred to [facility] for polypharmacy education. Continue medications as prescribed. Discussed Narcan. Encouraged nonpharmacologic pain relief strategies. will f/up next visit Assessment & Plan (03/20/2024 3:48 PM EDT): On GROUP HOME SUPERVISOR contract. discussed tapering percocet options, not interested, it apparently offers partial enough improvement of sxs. Patient is aware that fdc use of opiates can cause hyperalgesia, liver toxicity, CUSTOMER SERVICE REPRESENTATIVE TELLER toxicity, increase anxiety, among others. Will continue to work with chronic pain management [facility] clinic. Continue medications as prescribed. Discussed Narcan. [...] PRN for elevated BP readings.. Referred to [facility] for polypharmacy education. Continue medications as [...] to enails with type 2 diabetes mellitus ([facility]) 05/17/2017 03/29/2024 Encounters Date Type Department Care Team Description 08/31/2024 Refill [facility] MED[facility]INE [address] [place] [phone] Zeinab Sykes MD Other intervertebral disc displacement, lumbar region 08/30/2024 Refill [facility] [address] [place] [address] Zeinab Sykes MD 08/29/2024 Refill [facility] & PEDS [address] [place] [address] Oralia Aguila MD 08/27/[address] [address] Zeinab Sykes MD Results 08/21/2024 5:20 PM EST Office Visit [facility] [address] [place] [address] Yonathan Snider MD Subacute cough 08/21/2024 Travel 08/20/2024 Refill [facility] [address] [place] [address] Zeinab Sykes MD Type 2 diabetes mellitus without complication, without long-term current use of insulin ([facility]); Other intervertebral disc displacement, lumbar region 08/15/2024 10:15 AM EST Office Visit [address] [address] Zeinab Sykes MD Type 2 diabetes mellitus without complication, without long-term current use of insulin ([facility]) (Primary Dx); Essential hypertension; Postmenopause bleeding; Recurrent major depressive disorder, in partial remission ([facility]/HCC); Moderate persistent asthma with acute exacerbation; [place] (obstructive sleep apnea); Housing insecurity; Nasal congestion 08/15/2024 Travel 08/14/2024 Travel 08/10/2024 Telephone [facility] [address] [place] [address] Terra Mackey MA Chart prep 08/08/2024 5:20 PM EST Office Visit [facility] [address] [place] [address] Lia Martinez NP Acute nasopharyngitis (Primary Dx); Flu-like symptoms 08/08/2024 3:00 PM EST Office Visit [facility] ADULT DENTAL [address] [place] [address] Watkins-Maynard , Gay, DDS Fracture of removable partial denture (Primary Dx) 08/03/2024 3:30 PM EST Office Visit [facility] ADULT DENTAL [address] [place] [address] Watkins-Maynard , Gay, DDS Fracture of removable partial denture (Primary Dx) 08/03/2024 Refill [facility] [address] [facility] [place] [address] Zeinab Sykes MD Other intervertebral disc displacement, lumbar region 08/03/2024 Patient Outreach [facility] [address] [place] [address] Zeinab Sykes MD Pre-visit Planning ((Unable to reach for PVP screening, LVM)) 08/01/2024 Telephone [facility] [address] [place], [place] [phone] Zeinab Sykes MD Durable Medical Equipment (10 In 1 pillow/) 07/31/2024 9:45 AM EST Office Visit [address] [address] Alma Jha FNP Lumbar back pain with radiculopathy affecting left lower extremity (Primary Dx); Long-term current use of opiate analgesic 07/31/2024 Telephone [facility] [address] [place] [address] Alma Jha FNP GROUP HOME SUPERVISOR: Tier System 07/31/[address] [address] Scarlett Gibbs RN BPI Scoring 07/31/2024 Travel 07/30/2024 Refill [facility] [address] [place] [address] Zeinab Sykes MD 07/16/[address] [address] Zeinab Sykes MD Med Refill 07/04/[address] [address] Zeinab Sykes MD Other intervertebral disc displacement, lumbar region 06/29/2024 Refill [facility] [address] [place] [address] Zeinab Sykes MD Neuropathy from Last 3 Months Immunizations Name Administration [...] 09/25/2024 9:45 AM EDT Office Visit [facility] [address] [place] [address] 10/09/2024 11:45 AM EDT Office Visit [facility] [address] [place] [address] Zeinab Sykes MD [address] [place] [phone] Health Maintenance Due Date Last Done Comments CT Colonography 1960 Colonoscopy 1959 Colorectal Cancer Screening 1960 Dental X-Ray: Bitewings 1959 Dental X-Ray: Full Mouth 1959 FIT DNA/Cologuard 1959 FIT 1959 FOBT 1960 Sigmoidoscopy 1960 Eye Exam 11/05/1969 Alcohol/Substance Use Screening 1971 Hepatitis A Vaccines (1 of 2 - Risk 2-dose series) 11/05/1978 Diabetes: Urine Protein Screening 03/08/2023 03/08/2022, 09/16/2020 Mammogram 03/15/2024 03/15/2022, 07, 10/07/2020 COVID-19 Vaccine ( season) 2024 08/24/2022, [...] medboxes. Goal achieved 11/19/22. Patient graduated from [facility]. Procedures Procedure Name Priority Date/Time Associated Diagnosis Comments CREATININE, SERUM Routine 09/18/2024 3:5 7 PM EST Postmenopause bleeding UREA NITROGEN (BUN) Routine 09/18/2024 3 :57 PM EST Postmenopause bleeding XR CHEST 2 VIEWS Routine 08/22/2024 3:53 [...] complication, without long-term current use of insulin ([facility]) POCT RAPID COVID ANTIGEN Routine 08/08/2024 [...] Recently Relevant to Health Maintenance Results * Creatinine, Serum (09/18/2024 3:57 PM EST) Only the most recent of2 resultswithin the time period is included. Creatinine, Serum 1.01 0.5 - 1.4 mg/dL [facility] Estimated Glomerular Filt Rate 55 [facility] Comment:Chronic Kidney Disea se: Estimated GFR < 60 mL/min/1.75i6Qlsude Kidney Disease: Estimated GFR < 15 mL/min/1.73m2 09/18/2024 3:57 PM EST 09/18/2024 3:57 PM EST us Generic External Data Provider LAB BLOOD ORDERAB LES Final Result Performing Organization Address [facility] de Phone Number [facility] [address] [place] [address] [phone] * BUN (Blood Urea Nitrogen) (09/18/2024 3:57 PM EST) Only the most recent of2 resultswithin the time period is included. Urea Nitrogen (BUN) 13 9 - 16 mg/dL [facility] 09/18/2024 3:57 PM EST 09/18/2024 3:57 PM EST Generic External Data Provider LAB BLOOD ORDERAB LES Final Result Performing Organization Address [facility] de Phone Number [facility] [address] [place] [address] [phone] * XR Chest 2 Views (08/22/2024 3:53 PM EST) Anatomical Region Laterality Modality Chest Radiographic Celia ging 08/22/2024 3:53 PM EST Narrative 08/22/2024 4:30 PM EST ?[facility] ?[address] ?[place] [address] ?XRay Report ? Signed ? Patient: Gerry Mclaughlin,Rhonda ?MR# ?? : [id number] ? : 1960 ?Acct:[id number] ? Age/Sex: 63 / F ?ADM Date: 08/22/24 ? Loc: HO.HHCX ? Attending Dr: Yonathan Snider MD ? Ordering Physician: Yonathan Sndier MD ?? Date of Service: 08/22/24 ?? Procedure(s): XR chest 2V ?? Accession Number(s): [id number] ? cc: Yonathan Snider MD ? EXAMINATION: [...] signed by Sanjeev Mayfield MD in OV> ?08/22/241626 ? DD/ 1553 ? TD/TT: 08/22/24 1600 ? Deck[employer]: MSM ? Procedure Note Donotyolieter, Image - 08/22/2024 [place] [address] XRay Report Signed Patient: Karla Fernández# : [id number] : 1960Acct:[id number] Age/Sex: 63 / FADM Date: 08/22/24 Loc: HO.HHCX Attending Dr: Yonathan Snider MD Ordering Physician: Yonathan Snider MD Date of Service: 08/22/24 Procedure(s): XR chest 2V Accession Number(s): [id number] cc: Yonathan Snider MD EXAMINATION: XR CHEST [...] 08/22/24 1627 DD/ 1553 TD/TT: 08/22/24 1600 [employer]: MSM us Yonathan Snider MD IMG XR PROCEDURES Edited Result - Final * Influenza B (ID NOW Rapid Molecular) (08/21/2024 5:37 PM EST) Only the most recent of3 resultswithin the time period is included. Pathologist [facility] Influenza B Negative Negative, Indeterminate [facility] Swab 08/21/2024 5:37 PM EST us Yonathan Snider MD POINT OF CARE TEST ENTER/EDIT OR DERABLES Final Result Performing Organization Address [facility] Co de Phone Number [facility] [address] [place] [phone] * Influenza A (ID NOW Rapid Molecular) (08/21/2024 5:37 PM EST) Only the most recent of3 resultswithin the time period is included. [facility] Influenza A Negative Negative, Indeterminate [facility] Swab 08/21/2024 5:37 PM EST Yonathan Snider MD POINT OF CARE TEST ENTER/EDIT OR DERABLES Final Result Performing Organization Address [facility] Co de Phone Number [facility] [address] [place] [phone] * POCT Rapid COVID Ag (08/21/2024 5:10 PM EST) Only the most recent of3 resultswithin the time period is included. [facility] Rapid COVID Ag Negative Swab 08/21/2024 5:10 PM EST us Yonathan Snider MD POINT OF CARE TEST ENTER/EDIT OR DERABLES Final Result * (ABNORMAL) Respiratory Viral Panel PCR (08/21/2024 2:25 PM EST) [facility] Adenovirus PCR Not Detected Not Detect. [facility] Bordetella pertussis PCR Not Detected Not Detect. [facility] Comment:Interpret results wi th caution. If B. pertussis isspecifically suspected, additional testing using analternate method is recommended. Bordetella parapertussis PCR Not Detected Not Detect. [facility] Chlamydia pneumoniae PCR Not Detected Not Detect. [facility] Coronavirus 229E PCR Not Detected Not Detect. [facility] Coronavirus HKU1 PCR Not Detected Not Detect. [facility] Coronavirus NL63 PCR Not Detected Not Detect. [facility] Coronavirus OC43 PCR Detected(A) Not Detect. [facility] SARS-CoV-2 PCR Not Detected Not Detect. [facility] Comment:SARS-CoV-2 not detec jocelyn by [...] Influenza A PCR Not Detected Not Detect. [facility] Influenza B PCR Not Detected Not Detect. [facility] Human metapneumovirus PCR Not Detected Not Detect. [facility] Rhino/Enterovirus PCR Not Detected Not Detect. [facility] Mycoplasma pneumoniae PCR Not Detected Not Detect. [facility] Parainfluenza 1 PCR Not Detected Not Detect. [facility] Parainfluenza 2 PCR Not Detected Not Detect. [facility] Parainfluenza 3 PCR Not Detected Not Detect. [facility] Parainfluenza 4 PCR Not Detected Not Detect. [facility] RSV PCR Not Detected Not Detect. [facility] Resp Panel NA Note See Note H [facility] Comment:All results must be correlated [...] assay is performed by Multiplexed PCR, utilizing [employer] Film Array. 08/21/2024 2:25 PM EST 08/22/2024 2:39 PM EST Yonathan Snider MD LAB BLOOD ORDERABLES Final Resul t Performing Organization Address [facility]/ZIP Co de Phone Number [facility] [address] [place] [phone] * (ABNORMAL) POCT Glucose (08/15/2024 10:38 [...] EST) RSV Rapid Ag POC Negative Negative [facility] Swab 08/08/2024 5:54 PM EST Lia Martinez NP POINT OF CARE TEST ENTER/EDIT O RDERABLES Final Result Performing Organization Address [facility]/ZIP Co de Phone Number [facility] [address] [place] [phone] * POCT DIDIER-14 Urine Drug Screen (07/31/2024 1:45 PM EST) TCA, Urine Positive Oxycodone Screen, Urine Positive Urine Urine specimen obtained by clean catch procedure / Unknown 07/31/2024 1:45 PM EST Scarlett Onofre RN - 07/31/2024 1:45 PM EST UTOX cup Lot#[id number] Exp. 04/11/26 Internal Pass Control Zeinab Sykes MD POINT OF CARE TEST ENTER /EDIT ORDERABLES Final Result * Pap Smear (06/01/2024 2:43 PM EST) 06/01/2024 2:43 PM EST 06/04/2024 9:25 AM EST [facility] - 06/20/2024 7:51 AM EST ----- ------- Name: Rhonda Fernández ? Age/Sex: 63/F ? : 1960 Unit#: [id number] ?? Attend Dr: Aisha Mcclain CNM ?Re06/01/24 ?Status: DEP REF ? Location: HO.LNP ?Disch: ? ----- ------- SPEC : [id number] ?RECD: 06/04/24 ? STATUS: ??SOUT ? REQ NUM: [id number] ? DARWIN: 06/01/24-4633 ? SUBM DR: Aisha Mcclain CNM ? [...] Copies To: ?? Zeinab Sykes MD ?? [facility] ?? [address] [facility] ?? [place] [address] ?? [phone] ?? Aisha Mcclain CNM ?? [facility] ?? [address] ?? [place] [address] ?? [phone] ----- ------- Signed (signature on file) INDERJIT Bloom (ASC) 06/20/24 0751 ? ----- ------- ? END OF REPORT ? us Generic External Data Provider LAB CYTOLOGY JERED EDOUARDSOLANGE Final Result [facility] [address] [place] [address] [phone] * (ABNORMAL) POCT HGB A1C (03/29/2024 10:47 AM EDT) Pathologist [facility] Hemoglobin A1C 6.3(A) 4.0 - 6.0 % QC Media Lot # [id number] Lot# Expiration Date [id number] Blood 03/29/2024 10:4 7 AM EDT Zeinab Sykes MD POINT OF CARE TEST ENTER /EDIT ORDERABLES Final Result * (ABNORMAL) Lipid Panel with Reflex to Direct LDL (01/06/2024 12:38 PM EDT) Pathologist [facility] Triglycerides 91 <150 mg/dL [facility] Comment:Desirable Triglyceri de: less than 150 mg/dLBorderline High Triglyceride 150-199 mg/dLHigh Triglyceride: 200-499 mg/dLVery High Triglyceride: greater than or equal to 5OO mg/dL Cholesterol 211(H) <200 mg/dL [facility] Comment:Desirable Cholestero l: less than 200 mg/dLBorderline High Cholesterol: 200-239 mg/dLHigh Cholesterol: greater than 239 mg/dL LDL Cholesterol Calculated 132(H) <100 mg/dL [facility] Comment:Desirable LDL: less than 100 mg/dLNear Optimal/Above Optimal LDL: 110- 129 mg/dLBorderline High LDL: 130-159 mg/dLHigh LDL: 160-189 mg/dLVery High LDL: greater than or equal to 190 mg/dL HDL Cholesterol 61 >40 mg/dL [facility] Comment:Desirable HDL: great er than 40 mg/dL Note: This HDL assay may give artificially low results in patients with liver disease. Blood 01/06/2024 12:3 8 PM EDT 01/06/2024 4:21 PM EDT us Zeinab Sykes MD LAB BLOOD ORDERABLES Fin al Result Performing Organization Address [facility] de Phone Number [facility] [address] [place] [phone] * Hepatitis Panel, General (01/06/2024 12:38 PM EDT) Hepatitis A IgM Nonreactive Nonreactive [facility] Comment:IgM antibodies to GUERIN V not detected; does not exclude earlyacute or recovered HAV infection. ~Hepatitis B Surface Antibody REACTIVE Nonreactive [facility] Comment:REACTIVE: > 11.99 mI U/mL Hepatitis B Core Antibody Nonreactive Nonreactive [facility] Hepatitis C Antibody Nonreactive Nonreactive [facility] Comment:Antibodies to HCV no t detected; does not exclude early acuteHCV infection. Hepatitis B Surface Ag Negative Negative [facility] Blood 01/06/2024 12:3 8 PM EDT 01/06/2024 4:21 PM EDT Zeinab Sykes MD LAB BLOOD ORDERABLES Fin al Result Performing Organization Address City/[facility] Co de Phone Number [facility] [address] [place] [address] [phone] * HIV-1/2 Antigen and Antibodies, Fourth Generation, with Reflexes (01/06/2024 12:38 PM EDT) HIV AB/AG Nonreactive Nonreactive [facility] Comment:HIV-1 p24 Ag and/or HIV-1/HIV-2 Ab not detected.A test result that is nonreactive does not exclude thepossibility of exposure to or infection with HIV-1 and/orHIV-2. Nonreactive results in this assay for individualswith prior exposure to HIV-1 and/or HIV-2 may be due toantigen and antibody levels that are below the limit ofdetection of this assay.The [employer] HIV Ag/Ab Combo assay result andsupplemental assay [...] al Result Performing Organization Address [facility]/State/ZIP Co de Phone Number [facility] [address] [place] [address] [phone] * Mammography Report 1 (03/15/2022 5:00 PM EDT) Anatomical Region Laterality Modality Breast Bilateral Mammography 03/15/2022 5:00 PM EDT Narrative 03/16/2022 8:33 AM EDT Refer to the Notes tab for result details [facility] Procedure: Mammography Report 1 Procedure Note ProviderParag MD - 10/10/2022 Refer to the Notes tab for result details [facility] Procedure: Mammography Report 1 us Evelyn Ledesma FLOUR WORKER IMG BI PROCEDURES Final Re sult * [...] Creatinine, Urine 244 20 - 275 mg/dL [facility] 03/08/2022 3:04 PM EDT Rebekah Guevara MACHINE STRIPER LAB URINE ORDERABLES Final Res ult Performing Organization Address [facility] Phone Number [facility] [address] * HPV mRNA E6/E7 (07/07/2020 12:00 AM EST) HPV nRNA E6/E7 Not Detected Not Detected [facility] Comment: This test was performed using the APTIMA HPV Assay ([employer] This assay detects E6/E7 viral messenger RNA (mRNA) from 14 high-risk HPV types (16,18,31,33,35,39,45,51,52,56,58,59,66,68). ?? The analytical performance characteristics of this assay have been determined by [employer]. The modifications have not been cleared or approved by the FDA. This assay has been validated pursuant to the CLIA regulations and is used for clinical purposes. 07/07/2020 us Historical Provider MD LAB BLOOD ORDERABLES Sera l Result Performing Organization Address [facility] de Phone Number [facility] [address] from Last 3 Months or Most Recently Relevant to Health Maintenance Insurance [place], [place] C[facility] MEDICAID STAND ADULT Care Teams Siebel Solution Architect Relationship Specialty Start Date End Date Zeinab Sykes MD [address] [place] [phone] PCP - General Internal Medicine 01/02/24 Tomeka Martins [employer] Sales RepresentativeSales And Service Representative 10/27/23
--- OUTSIDE RECORDS SUMMARY | 2024-09-18 19:49 | XMS_ITS | Encounter Summary ---
Author Organization [facility] Address [address] [place] [address] [address] [place] [address] Care Team Providers Care Bilingual Counter Sales Retail Name Role Phone Oralia Aguila MD Primary Care Provider [phone] Zeinab Sykes MD Primary Care Provider + Reason for Visit * Reason Onset Date Comments antibiotics pre med 07/19/2023 Encounter Details Date Type Department Care Team ([facility] st Contact Info) Description 07/19/2023 Telephone [facility] ADULT D[facility] [address] [place] [address] AttStefany terry, DDS [address] [place], [place] [phone] antibiotics pre med Social History Tobacco Use [...] Description 09/25/2024 9:45 AM EDT Office Visit [address] [address] 10/09/2024 11:45 AM EDT Office Visit [address] [address] Zeinab Sykes MD [address] [place] [phone] documented as of this encounter Goals Goal Patient Goal Type Associated Problems Recent Progress Patient-Stated? Author Patient will manage their medication General On track( 023 11:18 AM EDT) Citlali Ocampo, Anoop Note: Began medboxes. Goal achieved 11/19/22. Patient graduated from [facility]. documented as of this encounter Visit Diagnoses Not on filedocumented in this encounter Care Teams Bilingual Counter Sales Retail Relationship Specialty Start Date End Date Oralia Aguila MD [address] [place] [phone] PCP - General Family Medicine 04/26/23 01/01/24 Zeinab Sykes MD [address] [place] [phone] PCP - General Internal Medicine 01/02/24 Tomeka Martins Can PatcherScallop Cutter 10/27/23 documented as of this encounter
== END 2024-09-18 15:49 | disposition home or self-care (01) ==
LOC: HO.LAB 15:48
PROVIDERS: PCP Internal Medicine; Visit Provider Obstetrics & Gynecology
DX: N83.299 Other ovarian cyst, unspecified side (principal)
CPT/HCPCS: 36415; 82565; 84520

== ENCOUNTER 2024-10-16 15:04 | Emergency (ER) | payer OTHER, MEDICARE, MEDICAID, SELFPAY ==
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
[2024-10-16 15:13] VITALS: BP 185/84; PULSE 66; O2SAT 97
[2024-10-16 15:17] VITALS: BMI 36.8
[2024-10-16 15:35] VITALS: BP 179/80; PULSE 70; RESP 20; TEMP 36.5; O2SAT 95
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
[2024-10-16] MEDS: Acetaminophen 325 MG TABLET 975 MG PO (16:25)
[2024-10-16 17:51] VITALS: BP 167/77; PULSE 64; RESP 18; TEMP 36.7; O2SAT 95
--- OUTSIDE RECORDS SUMMARY | 2024-10-16 18:30 | XMS_ITS | Encounter Summary ---
Author Organization [employer] [facility] Address [address] [place] [address] Care Team Providers Care Rural Health Consultant Name Role Phone Evelyn Ledesma Primary Care Provider [phone] Oralia Aguila MD Primary Care Provider [phone] Zeinab Sykes MD Primary Care Provider + Encounter Details Date Type Department Care Team ([facility] Contact Info) Description 10/22/2022 Orders Only [facility] MEDICINE [address] [place] [address] Evelyn Ledesma FNP [address] [place] [address] Dept [place] [address] Social History Tobacco Use Types Packs/Day Years [...] Upcoming Encounters Date Type Department Care Team ([facility] Contact Info) Description 10/23/2024 11:00 AM EDT Office Visit [facility] MED[facility]INE [address] [place] [address] 10/30/2024 3:30 PM EDT Office Visit [facility] ADULT DENTAL [address] [place] [address] Watkins-Maynard, Gay, DDS [address] [place] [address] 11/16/2024 11:00 AM EDT Nutrition [facility] DIABETES/NUTRITION [address] [place] [address] Czepiel, Juana, RD [address] [place] [address] 01/10/2025 12:00 PM EDT Office Visit [facility] MEDICINE [address] [place] [address] Zeinab Sykes MD [address] [place] [address] documented as of this encounter Visit Diagnoses Not on filedocumented in this encounter Care Teams Rural Health Consultant Relationship Specialty Start Date End Date Evelyn Ledesma FNP PCP - General Family Medicine 03/15/22 04/25/23 Oralia Aguila MD [address] [place] [id number] PCP - General Family Medicine 04/26/23 01/01/24 Zeinab Sykes MD [address] [place] [id number] PCP - General Internal Medicine 01/02/24 Tomeka Martins Regional Sales ManagerMachinist Tool And Die 10/27/23 documented as of this encounter
--- OUTSIDE RECORDS SUMMARY | 2024-10-16 18:30 | XMS_ITS | Encounter Summary ---
Author Organization [employer] [facility] Address [address] [place] [address] [address] [place] [address] Care Team Providers Care Piano Bench Assembler Name Role Phone Zeinab Sykes MD Primary Care Provider + Reason for Visit * Reason Onset Date Comments Med Refill 07/16/2024 Encounter Details Date Type Department Care Team ([facility] st Contact Info) Description 07/16/2024 Telephone [facility] MEDICINE [address] [place], [place] [phone] Zeinab Sykes MD [address] [place], [place] [phone] Med Refill Social History Tobacco Use Types [...] 10 MG capsule To be sent to: [facility] pharmacy documented in this encounter Plan of Treatment Upcoming Encounters Date Type Department Care Team (Late st Contact Info) Description 10/23/2024 11:00 AM EDT Office Visit [facility] MEDICINE [address] [place] [address] 10/30/2024 3:30 PM EDT Office Visit [facility] ADULT DENTAL [address] [place] [address] Gay Thompson, DDS [address] [place] [address] 11/16/2024 11:00 AM EDT Nutrition [facility] DIABETES/NUTRITION [address] [place], [place] [phone] Juana [address]man [address] [place], [place] [phone] 01/10/2025 12:00 PM EDT Office Visit [facility] MEDICINE [address] [place], [place] [phone] Zeinab Sykes MD [address] [place], [place] [phone] documented as of this encounter Goals Goal [...] documented as of this encounter Care Teams Piano Bench Assembler Relationship Specialty Start Date End Date Zeinab Sykes MD [address] [place], [place] [phone] PCP - General Internal Medicine 01/02/24 Tomeka Martins Passport Application ExaminerHarvest Crew Supervisor 10/27/23 documented as of this encounter
--- OUTSIDE RECORDS SUMMARY | 2024-10-16 18:30 | XMS_ITS | Encounter Summary ---
Author Organization [employer] [facility] Address [address] [place] [address] [address] [place] [address] Care Team Providers Care Sliver Lap Machine Tender Name Role Phone Oralia Aguila MD Primary Care Provider [phone] Zeinab Sykes MD Primary Care Provider + Reason for Visit * Reason Onset Date Comments Med Refill 05/05/2023 Encounter Details Date Type Department Care Team (Late st Contact Info) Description 05/05/2023 Refill [facility] MEDICINE [address] [place], [place] [phone] Oralia Aguila MD [address] [place], [place] [phone] Other intervertebral disc displacement, lumbar region Social [...] 5- 325 MG tablet to besent to [facility] [place], [place] - [address] [facility] documented in this encounter Plan of Treatment Upcoming Encounters Date Type Department Care Team (Late st Contact Info) Description 10/23/2024 11:00 AM EDT Office Visit [facility] MEDICINE [address] [place] [address] 10/30/2024 3:30 PM EDT Office Visit [facility] ADULT DENTAL [address] [place] [address] Watkins-Maynard, Gay, DDS [address] [place] [address] 11/16/2024 11:00 AM EDT Nutrition [facility] DIABETES/NUTRITION [address] [place] [address] Juana Gusman, RD [address] [place] [address] 01/10/2025 12:00 PM EDT Office Visit [facility] MEDICINE [address] [place] [address] Zeinab Sykes MD [address] [place] [phone] documented as of this encounter Goals Goal Patient Goal Type Associated Problems Recent Progress Patient-Stated? Author Patient will manage their medication General On track( 023 11:18 AM EDT) Citlali Ocampo, PharmCatrachita Note: Began medboxes. Goal achieved 11/19/22. Patient graduated from [facility] [employer]. documented as of this encounter Visit Diagnoses Diagnosis Other intervertebral disc displacement, lumbar region documented in this encounter Care Teams Sliver Lap Machine Tender Relationship Specialty Start Date End Date Oralia Aguila MD [address] [place] [phone] PCP - General Family Medicine 04/26/23 01/01/24 Zeinab Sykes MD [address] [place] [id number] PCP - General Internal Medicine 01/02/24 Tomeka Martins Public Affairs DirectorTanning Solution Maker 10/27/23 documented as of this encounter
--- OUTSIDE RECORDS SUMMARY | 2024-10-16 18:30 | XMS_ITS | Encounter Summary ---
Author Organization [employer] Address [address] [facility] 7t [place] [address] Care Team Providers Care Warehouse Unloader Name Role Phone Zeinab Sykes MD Primary Care Provider + Reason for Visit * Reason Comments Med Refill Encounter Details Date Type Department Care Team ([facility] st Contact Info) Description 05/04/2024 Refill [facility] MEDICINE [address] [place], [place] [phone] Zeinab Sykes MD 230 [place] [address] Other intervertebral disc displacement, lumbar region Social [...] Description 10/23/2024 11:00 AM EDT Office Visit [facility] MEDICINE [address] [place] [address] 10/30/2024 3:30 PM EDT Office Visit [facility] ADULT DENTAL 230 [place] [address] Watkins-Maynard, Gay, DDS 230 [place] [address] 11/16/2024 11:00 AM EDT Nutrition [facility] DIABETES/NUTRITION [address] [place] [address] Juana Gusman, MONICA 230 [place] [address] 01/10/2025 12:00 PM EDT Office Visit [facility] MEDICINE [address] [place] [address] Zeinab Sykes MD 230 [place] [address] documented as of this encounter Goals Goal Patient Goal Type Associated Problems Recent Progress Patient-Stated? Author Patient will manage their medication General On track( 023 11:18 AM EDT) No Citlali Armando, PharmD Note: Began medboxes. Goal achieved 11/19/22. Patient graduated from [facility]. documented as of this encounter Visit Diagnoses Diagnosis Other intervertebral disc displacement, lumbar region documented in this encounter Additional Health Concerns Assessment Noted Time PHQ-9 Depression Total Score: 18 024 1:46 PM EDT documented as of this encounter Care Teams Warehouse Unloader Relationship Specialty Start Date End Date Zeinab Sykes MD [address] [place] [address] PCP - General Internal Medicine 01/02/24 Tomeka Martins Environmental Protection SpecialistManager Editorial 10/27/23 documented as of this encounter
--- OUTSIDE RECORDS SUMMARY | 2024-10-16 18:30 | XMS_ITS | Encounter Summary ---
Author Organization [employer] [facility] Address [address] [place] [address] 7t [place] [address] Care Team Providers Care Party Supply Specialist Name Role Phone Oralia Aguila MD Primary Care Provider [phone] Zeinab Sykes MD Primary Care Provider + Reason for Visit * Reason Comments Med Refill Encounter Details Date Type Department Care Team (Late Contact Info) Description 07/06/2023 Refill [facility] WALK-IN CENTER 230 [place] [address] Bryn Franklin MD 230 [place] [address] Social History Tobacco Use Types Packs/Day Years [...] Department Care Team (Late Contact Info) Description 10/23/2024 11:00 AM EDT Office Visit [facility] MEDICINE 230 [place] [address] 10/30/2024 3:30 PM EDT Office Visit [facility] ADULT DENTAL [address] [place] [address] Watkins-Maynard, Agy, DDS 230 [place] [address] 11/16/2024 11:00 AM EDT Nutrition [facility] DIABETES/NUTRITION 230 [place] [address] Juana Gusman, RD 230 [place] [address] 01/10/2025 12:00 PM EDT Office Visit [facility] MEDICINE [address] [place] [address] Zeinab Sykes MD [address] [place] [address] documented as of this encounter Goals Goal Patient Goal Type Associated Problems Recent Progress Patient-Stated? Author Patient will manage their medication General On track( 023 11:18 AM EDT) Citlali Ocampo, PharmD Note: Began medboxes. Goal achieved 11/19/22. Patient graduated from [facility]. documented as of this encounter Visit Diagnoses Not on filedocumented in this encounter Care Teams Party Supply Specialist Relationship Specialty Start Date End Date Oralia Aguila MD [address] [place] [address] [phone] PCP - General Family Medicine 04/26/23 01/01/24 Zeinab Sykes MD [address] [place] [address] [phone] PCP - General Internal Medicine 01/02/24 Tomeka Martins Fondant CookerRemnant Sorter 10/27/23 documented as of this encounter
--- OUTSIDE RECORDS SUMMARY | 2024-10-16 18:30 | XMS_ITS | Encounter Summary ---
Author Organization [facility] Address [address] [place] [address] 7t [place] [address] Care Team Providers Care Offset Plate Maker Name Role Phone Oralia Aguila MD Primary Care Provider [phone] Zeinab Sykes MD Primary Care Provider + Reason for Visit * Reason Comments Med Refill Encounter Details Date Type Department Care Team (Late Contact Info) Description 08/09/2023 Refill [facility] MEDICINE [address] [place] [address] Oralia Aguila MD 230 [place], [place] [phone] Other intervertebral disc displacement, lumbar region Social [...] Description 10/23/2024 11:00 AM EDT Office Visit [facility] MEDICINE [address] [place] [address] 10/30/2024 3:30 PM EDT Office Visit [facility] ADULT DENTAL [address] [place] [address] [place] [address] Watkins-Maynard, Gay, DDS 230 [place] [address] 11/16/2024 11:00 AM EDT Nutrition [facility] DIABETES/NUTRITION 230 [place] [address] Juana Gusman, RD 230 [place] [address] 01/10/2025 12:00 PM EDT Office Visit [facility] MEDICINE 230 [place] [address] Zeinab Sykes MD 230 [place] [address] documented as of this encounter Goals Goal Patient Goal Type Associated Problems Recent Progress Patient-Stated? Author Patient will manage their medication General On track( 023 11:18 AM EDT) Citlali Ocampo, PharmCatrachita Note: Began medboxes. Goal achieved 11/19/22. Patient graduated from [facility]. documented as of this encounter Visit Diagnoses Diagnosis Other intervertebral disc displacement, lumbar region documented in this encounter Care Teams Offset Plate Maker Relationship Specialty Start Date End Date Oralia Aguila MD [address] [place] [address] PCP - General Family Medicine 04/26/23 01/01/24 Zeinab Sykes MD [address] [place] [address] PCP - General Internal Medicine 01/02/24 Tomeka Martins Dental Office ReceptionistDry House Tender 10/27/23 documented as of this encounter
--- OUTSIDE RECORDS SUMMARY | 2024-10-16 18:30 | XMS_ITS | Encounter Summary ---
Author Organization [employer] [facility] Address [address] [place] [address] 7t [place] [address] Care Team Providers Care Soda Jerker Name Role Phone Evelyn Ledesma Primary Care Provider [phone] Oralia Aguila MD Primary Care Provider [phone] Zeinab Sykes MD Primary Care Provider + Reason for Visit * Reason Onset Date Comments Appointment Request 12/20/2022 Encounter Details Date Type Department Care Team (Late st Contact Info) Description 12/20/2022 Telephone [facility] MEDICINE [address] [place] [address] Evelyn Ledesma FNP [address] [place] [address] Dept [place] [address] Appointment Request Social History Tobacco Use Types [...] Miscellaneous Notes * Telephone Encounter - Aurelia Carltonrero - 12/20/2022 10:16 AM EDT Tc from pt requesting a call from a nurse in regards to pre-op appt scheduled on January 14 2023. ( Ptwould like to change a appt for an earlier day) Please contact pt at [phone] documented in this encounter Plan of Treatment Upcoming Encounters Date Type Department Care Team (Late st Contact Info) Description 10/23/2024 11:00 AM EDT Office Visit [facility] MEDICINE [address] [place] [address] 10/30/2024 3:30 PM EDT Office Visit [facility] ADULT DENTAL 230 [place] [address] Gay Thompson, DDS 230 [place] [address] 11/16/2024 11:00 AM EDT Nutrition [facility] DIABETES/NUTRITION 230 [place] [address] Juana Gusman, MONICA 230 [place] [address] 01/10/2025 12:00 PM EDT Office Visit [facility] MEDICINE [address] [place] [address] Zeinab Sykes MD 230 [place] [address] documented as of this encounter Goals Goal Patient Goal Type Associated Problems Recent Progress Patient-Stated? Author Patient will manage their medication General On track( 023 11:18 AM EDT) Citlali Ocampo PharmD Note: Began medboxes. Goal achieved 11/19/22. Patient graduated from [facility]. documented as of this encounter Visit Diagnoses Not on filedocumented in this encounter Care Teams Soda Jerker Relationship Specialty Start Date End Date Evelyn Ledesma FNP PCP - General Family Medicine 03/15/22 04/25/23 Oralia Aguila MD 230 [place] [address] PCP - General Family Medicine 04/26/23 01/01/24 Zeinab Sykes MD 230 [place] [address] PCP - General Internal Medicine 01/02/24 Tomeka Martins Tactical Intelligence OfficerUnionmelt Operator 10/27/23 documented as of this encounter
--- OUTSIDE RECORDS SUMMARY | 2024-10-16 18:30 | XMS_ITS | Encounter Summary ---
Author Organization [employer] [facility] Address [address] [place] [address] [place] [address] Care Team Providers Care Caretaker Name Role Phone Evelyn Ledesma Primary Care Provider [phone] Oralia Aguila MD Primary Care Provider [phone] Zeinab Sykes MD Primary Care Provider + Reason for Visit * Reason Comments Med Refill Encounter Details Date Type Department Care Team (Late Contact Info) Description 02/05/2023 Refill [facility] MEDICINE 230 [place] [address] Evelyn Ledesma FNP [address] [place] [address] Dept [place] [address] Neuropathy Social History Tobacco Use Types Packs/Day [...] 10/23/2024 11:00 AM EDT Office Visit [facility] MEDICINE 230 [place] [address] 10/30/2024 3:30 PM EDT Office Visit [facility] ADULT DENTAL 230 [place] [address] Watkins-Maynard Gay, DDS 230 [place] [address] 11/16/2024 11:00 AM EDT Nutrition [facility] DIABETES/NUTRITION 230 [place] [address] Juana Gusman, RD 230 [place] [address] 01/10/2025 12:00 PM EDT Office Visit [facility] MEDICINE 230 [place] [address] Zeinab Sykes MD 230 [place] [address] documented as of this encounter Goals Goal Patient Goal Type Associated Problems Recent Progress Patient-Stated? Author Patient will manage their medication General On track( 023 11:18 AM EDT) Citlali Ocampo, PharmD Note: Began medboxes. Goal achieved 11/19/22. Patient graduated from [facility]. documented as of this encounter Visit Diagnoses Diagnosis Neuropathy Mononeuritis of unspecified site documented in this encounter Care Teams Caretaker Relationship Specialty Start Date End Date Evelyn Ledesma FNP PCP - General Family Medicine 03/15/22 04/25/23 Oralia Aguila MD [address] [place] [address] [phone] PCP - General Family Medicine 04/26/23 01/01/24 Zeinab Sykes MD [address] [place] [address] [phone] PCP - General Internal Medicine 01/02/24 Tomeka Martins Business Intelligence ArchitectPhysician Extender 10/27/23 documented as of this encounter
--- OUTSIDE RECORDS SUMMARY | 2024-10-16 18:30 | XMS_ITS | Encounter Summary ---
Author Organization [employer] [facility] Address [address] [place] [address] 7t [place] [address] Care Team Providers Care Treating Plant Operator Name Role Phone Evelyn Ledesma Primary Care Provider [phone] Oralia Aguila MD Primary Care Provider [phone] Zeinab Sykes MD Primary Care Provider + Encounter Details Date Type Department Care Team (Late Contact Info) Description 08/20/2022 Orders Only [facility] MEDICINE 230 [place] [address] Karen [place] FNP Social History Tobacco Use [...] Description 10/23/2024 11:00 AM EDT Office Visit [facility] MEDICINE [address] [place] [address] [phone] 10/30/2024 3:30 PM EDT Office Visit [facility] ADULT DENTAL 230 [place] [address] Watkins-Maynard, Gay, DDS 230 [place] [address] 11/16/2024 11:00 AM EDT Nutrition [facility] DIABETES/NUTRITION 230 [place] [address] Juana Gusman, RD 230 [place] [address] 01/10/2025 12:00 PM EDT Office Visit [facility] MEDICINE 230 [place] [address] Zeinab Sykes MD 230 [place] [address] documented as of this encounter Visit Diagnoses Not on filedocumented in this encounter Care Teams Treating Plant Operator Relationship Specialty Start Date End Date Evelyn Ledesma FNP PCP - General Family Medicine 03/15/22 04/25/23 Oralia Aguila MD [address] [place] [address] PCP - General Family Medicine 04/26/23 01/01/24 Zeinab Sykes MD [address] [place] [address] PCP - General Internal Medicine 01/02/24 Tomeka Martins Mandrel MakerCan Sorter 10/27/23 documented as of this encounter
--- OUTSIDE RECORDS SUMMARY | 2024-10-16 18:30 | XMS_ITS | Encounter Summary ---
Author Organization [employer] Address [address] [facility] 7t [place] [address] Care Team Providers Care Restrike Hammer Operator Name Role Phone Evelyn Ledesma Primary Care Provider [phone] Oralia Aguila MD Primary Care Provider [phone] Zeinab Sykes MD Primary Care Provider + Reason for Visit * Reason Onset Date Comments case from lab 11/04/2022 Encounter Details Date Type Department Care Team (Late st Contact Info) Description 11/04/2022 Telephone [facility] ADULT DENTAL [address] [place] [address] Asad Shore DDS 230 [place] [address] case from lab Social History Tobacco Use [...] Miscellaneous Notes * Telephone Encounter - Edyta Callejas - 11/11/2022 3:18 PM EDT Patient is calling in to confirm if case is back from lab. * Telephone Encounter - Cely Lu - 11/04/2022 2:46 PM EDT Patient is calling in to confirm if case is back from lab. DR documented in this encounter Plan of Treatment Upcoming Encounters Date Type Department Care Team (Late st Contact Info) Description 10/23/2024 11:00 AM EDT Office Visit [facility] MEDICINE [address] [place] [address] 10/30/2024 3:30 PM EDT Office Visit [facility] ADULT DENTAL [address] [place] [address] Watkins-Maynard, Gay, DDS 230 [place] [address] 11/16/2024 11:00 AM EDT Nutrition [facility] DIABETES/NUTRITION [address] [place] [address] Uzma, Juana, RD 230 [place] [address] 01/10/2025 12:00 PM EDT Office Visit [facility] MEDICINE [address] [place] [address] Zeinab Sykes MD 230 [place] [address] documented as of this encounter Visit Diagnoses Not on filedocumented in this encounter Care Teams Restrike Hammer Operator Relationship Specialty Start Date End Date Evelyn Ledesma FNP PCP - General Family Medicine 03/15/22 04/25/23 Oralia Aguila MD 230 [place] [address] PCP - General Family Medicine 04/26/23 01/01/24 Zeinab Sykes MD 230 [place] [address] PCP - General Internal Medicine 01/02/24 Tomeka Martins Crimper OperatorSofa Inspector 10/27/23 documented as of this encounter
--- OUTSIDE RECORDS SUMMARY | 2024-10-16 18:30 | XMS_ITS | Encounter Summary ---
Author Organization [employer] [facility] Address [address] [place] [address] 7t [place] [address] Care Team Providers Care Parachute Taper Name Role Phone Oralia Aguila MD Primary Care Provider [phone] Zeinab Sykes MD Primary Care Provider + Reason for Visit * Reason Onset Date Comments antibiotics pre med 07/19/2023 Encounter Details Date Type Department Care Team ([facility] st Contact Info) Description 07/19/2023 Telephone [facility] ADULT DENTAL 505 [place] [address] AttStefany terry, DDS 505 [place], [place] [phone] antibiotics pre med Social History Tobacco Use [...] 10/23/2024 11:00 AM EDT Office Visit [facility] MEDICINE 230 [place] [address] 10/30/2024 3:30 PM EDT Office Visit [facility] ADULT DENTAL [address] [place] [address] Watkins-Maynard, Gay, DDS 230 [place] [address] 11/16/2024 11:00 AM EDT Nutrition [facility] DIABETES/NUTRITION [address] [place] [address] Juana Gusman, RD 230 [place] [address] 01/10/2025 12:00 PM EDT Office Visit [facility] MEDICINE [address] [place] [address] Zeinab Sykes MD [address] [place] [address] documented as of this encounter Goals Goal Patient Goal Type Associated Problems Recent Progress Patient-Stated? Author Patient will manage their medication General On track( 023 11:18 AM EDT) No Citlali Armando, PharmCatrachita Note: Began medboxes. Goal achieved 11/19/22. Patient graduated from [facility]. documented as of this encounter Visit Diagnoses Not on filedocumented in this encounter Care Teams Parachute Taper Relationship Specialty Start Date End Date Oralia Aguila MD [address] [place] [address] PCP - General Family Medicine 04/26/23 01/01/24 Zeinab Sykes MD [address] [place] [address] PCP - General Internal Medicine 01/02/24 Tomeka Martins Paper Testing SupervisorBond Analyst 10/27/23 documented as of this encounter
--- OUTSIDE RECORDS SUMMARY | 2024-10-16 18:30 | XMS_ITS | Encounter Summary ---
Author Organization [facility] Address [address] [place] [address] 7 [place] [address] Care Team Providers Care Tuna Purse Seiner Name Role Phone Evelyn Ledesma Primary Care Provider [phone] Oralia Aguila MD Primary Care Provider [phone] Zeinab Sykes MD Primary Care Provider + Reason for Visit * Reason Onset Date Comments Referral 02/03/2023 Renewal Encounter Details Date Type Department Care Team (Late st Contact Info) Description 02/03/2023 Telephone [facility] MEDICINE [address] [place] [address] Evelyn Ledesma FNP [address] [place] [address] Dept [place] [address] Referral (Renewal ) Social History Tobacco Use [...] Description 10/23/2024 11:00 AM EDT Office Visit [facility] MEDICINE 230 [place] [address] 10/30/2024 3:30 PM EDT Office Visit [facility] ADULT DENTAL [address] [place] [address] Roland-Gay Maynard, DDS [address] [place] [address] 11/16/2024 11:00 AM EDT Nutrition [facility] DIABETES/NUTRITION 230 [place] [address] Juana Gusman, MONICA 230 [place] [address] 01/10/2025 12:00 PM EDT Office Visit [facility] MEDICINE 230 [place] [address] Zeinab Sykes MD 230 [place] [address] documented as of this encounter Goals Goal Patient Goal Type Associated Problems Recent Progress Patient-Stated? Author Patient will manage their medication General On track( 023 11:18 AM EDT) Citlali Ocampo, PharmD Note: Began medboxes. Goal achieved 11/19/22. Patient graduated from [facility]. documented as of this encounter Visit Diagnoses Not on filedocumented in this encounter Care Teams Tuna Purse Seiner Relationship Specialty Start Date End Date Evelyn Ledesma FNP PCP - General Family Medicine 03/15/22 04/25/23 Oralia Aguila MD 230 [place] [address] PCP - General Family Medicine 04/26/23 01/01/24 Zeinab Sykes MD [address] [place] [address] PCP - General Internal Medicine 01/02/24 Tomeka Martins Injection Molding EngineerInspector Casing 10/27/23 documented as of this encounter
--- OUTSIDE RECORDS SUMMARY | 2024-10-16 18:30 | XMS_ITS | Encounter Summary ---
Author Organization [employer] [facility] Address [address] [place] [address] 7t [place] [address] Care Team Providers Care Help Desk Agent Name Role Phone Evelyn Ledesma Primary Care Provider [phone] Oralia Aguila MD Primary Care Provider [phone] Zeinab Sykes MD Primary Care Provider + Reason for Visit * Reason Onset Date Comments Prior Authorization 12/28/2022 Encounter Details Date Type Department Care Team (Late st Contact Info) Description 12/28/2022 Telephone [facility] MEDICINE [address] [place] [address] Evelyn Ledesma FNP [address] [place] [address] Dept [place] [address] Prior Authorization Social History Tobacco Use Types [...] AM EDT T/C placed to pt via [employer] Manufacturing Technician Zeinab #[id number]. Advised of message from pcp re: lab [...] all other NSAIDS. Do you have a solar designer/installer yet? If not, your PCP would like [...] 12/28/2022 10:18 AM EDT THOMAS Emery from [employer] requesting XL pull ups and disposable under pads . States faxed request couple days ago and have not gotten a response . Informs paper work 12/29/22. Please call to clarify at phone # [phone] . documented in this encounter Plan of Treatment Upcoming Encounters Date Type Department Care Team (Late st Contact Info) Description 10/23/2024 11:00 AM EDT Office Visit [facility] MEDICINE [address] [place] [address] 10/30/2024 3:30 PM EDT Office Visit [facility] ADULT DENTAL [address] [place] [address] Watkins-Maynard, Gay, DDS [address] [place] [address] 11/16/2024 11:00 AM EDT Nutrition [facility] DIABETES/NUTRITION [address] [place] [address] Juana Gusman, RD [address] [place] [address] 01/10/2025 12:00 PM EDT Office Visit [facility] MEDICINE [address] [place], [place] [phone] Zeinab Sykes MD 230 [place] [address] documented as of this encounter Goals Goal Patient Goal Type Associated Problems Recent Progress Patient-Stated? Author Patient will manage their medication General On track( 023 11:18 AM EDT) Citlali Ocampo, Anoop Note: Began medboxes. Goal achieved 11/19/22. Patient graduated from [facility]. documented as of this encounter Visit Diagnoses Not on filedocumented in this encounter Care Teams Help Desk Agent Relationship Specialty Start Date End Date Evelyn Ledesma FNP PCP - General Family Medicine 03/15/22 04/25/23 Oralia Aguila MD [address] [place] [address] PCP - General Family Medicine 04/26/23 01/01/24 Zeinab Sykes MD [address] [place] [address] PCP - General Internal Medicine 01/02/24 Tomeka Martins Computer Security ManagerVeneer Jointer Returner 10/27/23 documented as of this encounter
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
--- OUTSIDE RECORDS SUMMARY | 2024-10-16 18:30 | XMS_ITS | Encounter Summary ---
Author Organization [employer] Address [address] [place] [address] 7t [place] [address] Care Team Providers Care Cray Fishing Hand Name Role Phone Evelyn Ledesma Primary Care Provider [phone] Oralia Aguila MD Primary Care Provider [phone] Zeinab Sykes MD Primary Care Provider + Reason for Visit * Reason Onset Date Comments medical clearance 02/11/2023 Encounter Details Date Type Department Care Team (Late st Contact Info) Description 02/11/2023 Telephone [facility] CHC ADULT DENTAL [address] [place] [address] Asad Shore DDS [address] [place] [address] medical clearance Social History Tobacco Use Types [...] 10/23/2024 11:00 AM EDT Office Visit [facility] MEDICINE [address] [place] [address] 10/30/2024 3:30 PM EDT Office Visit [facility] ADULT DENTAL [address] [place] [address] Watkins-Maynard, Gay, DDS [address] [place] [address] 11/16/2024 11:00 AM EDT Nutrition [facility] DIABETES/NUTRITION [address] [place] [address] Juana Gusman, RD [address] [place] [address] 01/10/2025 12:00 PM EDT Office Visit [facility] MEDICINE [address] [place] [address] Zeinab Sykes MD [address] [place] [address] documented as of this encounter Goals Goal Patient Goal Type Associated Problems Recent Progress Patient-Stated? Author Patient will manage their medication General On track( 023 11:18 AM EDT) No Citlali Armando, Anoop Note: Began medboxes. Goal achieved 11/19/22. Patient graduated from [facility]. documented as of this encounter Visit Diagnoses Not on filedocumented in this encounter Care Teams Cray Fishing Hand Relationship Specialty Start Date End Date Evelyn Ledesma FNP PCP - General Family Medicine 03/15/22 04/25/23 Oralia Aguila MD [address] [place] [address] PCP - General Family Medicine 04/26/23 01/01/24 Zeinab Sykes MD [address] [place] [address] DANIEL Garrison [address] PCP - General Internal Medicine 01/02/24 Tomeka Martins Cement Sack BreakerEnvironmental Health Manager 10/27/23 documented as of this encounter
--- OUTSIDE RECORDS SUMMARY | 2024-10-16 18:30 | XMS_ITS | Clinical Summary ---
Author Organization [facility] Address [address] [place] [address] 7[address] [place] [address] Care Team Providers Care [employer] Counselor Name Role Phone Zeinab Sykes MD Primary [...] in the morning. Active oxymetazoline (Afrin Nasal Roosevelt) 0.05 % nasal spray Administer 2 sprays [...] at bedtime. 90 tablet 3 024 Active amLODIPine-valsart an (Exforge) 10-320 MG tablet TAKE 1 TABLET BY MOUTH EVERY MORNING 90 tablet 3 024 Active FreeStyle lancetsIndications :Type 2 diabetes mellitus without complication, without long-term current use of insulin ([facility]) 1 each by Other route Once per day. USE TO TEST BLOOD SUGAR ONCE A DAY 100 each 3 024 Active glucose blood (FREESTYLE LITE) test stripIndications:T ype 2 diabetes mellitus without complication, without long-term current use of insulin ([facility]) USE TO TEST BLOOD SUGAR ONCE A DAY 100 each 3 024 Active gabapentin (Neurontin) 300 MG capsuleIndications :Neuropathy TAKE 1 CAPSULE BY MOUTH THREE TIMES DAILY IN THE MORNING, EVENING, AND BEDTIME 90 capsule 3 024 Active sodium chloride (Briscoe Nasal Roosevelt) 0.65 % nasal sprayIndications:A cute nasopharyngitis Administer 1 spray into each nostril if needed for congestion. 30 mL 1 025 2025 Active Alcohol Swabs (Alcohol Prep) padsIndications:Ty pe 2 diabetes mellitus without complication, without long-term current use of insulin ([facility]) USE TWICE DAILY 100 each 5 025 [...] MOUTH EVERY MORNING 45 tablet 3 Active celecoxib (CeleBREX) 100 MG capsuleIndications :Left hand pain TAKE 1 CAPSULE BY MOUTH TWICE DAILY 60 capsule 3 025 Active oxyCODONE-acetamin ophen (Percocet) 5-325 MG tabletIndications: Other intervertebral disc displacement, lumbar region Take 1 tablet by mouth every 6 (six) hours if needed for severe pain for up to 28 days. 112 tablet 025 2024 Active melatonin 10 MG tablet Take 1 tablet (10 mg) by mouth at bedtime. 90 tablet 1 Active ergocalciferol (Vitamin D2) 1.25 MG (01893 UT) capsule Take 1 capsule (1.25 mg) by mouth 1 (one) time per week. 12 capsule 1 Active acetaminophen (Tylenol 8 Hour) 650 MG ER tablet Take 1 tablet (650 mg) by mouth every 8 (eight) hours if needed for mild pain. Do not crush, chew, or split. 120 tablet 025 2024 Active celecoxib (CeleBREX) 100 MG capsuleIndications :Left hand pain Take 1 capsule (100 mg) by mouth 2 times daily. 60 capsule 3 024 2024 Discontinued ergocalciferol (Vitamin D2) 1.25 MG (76334 UT) capsule TAKE 1 CAPSULE BY MOUTH ONCE WEEKLY ON TUESDAY MORNING 12 capsule 025 2024 Discontinued(R eorder (will not trigger notification to Pharmacy)) oxyCODONE-acetamin ophen (Percocet) 5-325 MG tabletIndications: Other intervertebral disc displacement, lumbar region Take 1 tablet by mouth every 6 (six) hours if needed for severe pain for up to 28 days. 112 tablet 025 2024 Discontinued(R eorder (will not trigger notification to Pharmacy)) Active Problems Problem Noted Date Diagnosed Date Vitamin D deficiency 10/09/2024 Assessment & Plan (10/09/2024 2:22 PM EDT): Restart vitamin D x 6 months Advised regarding outdoor exercises for at least 15 minutes. Follow-up vitamin D levels in 1 year Recurrent major depressive disorder, in partial remission 08/15/2024 Assessment & Plan (08/15/2024 1:31 PM EST): Uncontrolled. FU with [facility] for adjustment. Patient waiting for housing [...] bx, I will fu or refer to AUTOMOTIVE TIRE TESTER after US reports. Left foot pain 03/29/2024 Assessment & Plan (03/29/2024 2:48 PM EDT): Likely sec to lumbar radiculopathy. Order Xray foot to ro osteophyte or neuroma. Refer to PT and fu w me in 3-4m No change in meds. Lumbar back pain with radicu lopathy affecting left lower extremity 03/29/2024 Assessment & Plan (09/27/2024 11:23 AM EDT): Known DDD L-spine with radiculopathy sxs 05/26/2018 - Lumbar decompression surgery: L4-5 and right L5-S1 decompressive laminectomy at [facility] - surgeon Dr. Melia Pedroza DME request for 10-in-1 pillow on 07/31/24 (not approved by insurance) Assessment & Plan (07/31/2024 4:58 PM EST): Known DDD L-spine with radiculopathy sxs 05/26/2018 - Lumbar decompression surgery: L4-5 and right L5-S1 decompressive laminectomy at [facility] - surgeon Dr. Melia Pedroza DME request for 10-in-1 pillow on 07/31/24 Assessment & Plan (05/29/2024 5:18 PM EST): Known DDD L-spine with radiculopathy sxs 05/26/2018 - Lumbar decompression surgery: L4-5 and right L5-S1 decompressive laminectomy at [facility] - surgeon Dr. Melia Pedroza Assessment & [...] current use of opiate analgesic 2023 Overview (09/27/2024): Medication: Percocet 5-325mg Q6H PRN Indication: herniation of left side of L5-L5 intervertebral disc, s/p vagus nerve stimulator, neuropathy Last [employer] Agreement: 03/13/24 Tier 3: [employer] visit Q4-6 months. (Last evaluated Jul 2024 by PCP - Dr. Sykes) Assessment & Plan (09/27/2024 11:24 AM EDT): -Good engagement and participation with Group [...] Confirmatory testing negative 07/31/24: Group - WNL 09/25/24: Group - WNL Assessment & Plan (07/31/2024 4:57 PM EST): [...] in 3mo Fatty liver 02/04/2024 Overview (03/29/2024): [facility] [place] [place] on 10/2023 showed Fatty liver. Normal LFTs/albumin Assessment & Plan (03/29/2024 1:40 PM EDT): LFTs remain stable/normal. Dx d/w patient and advised her to continue tight control of DM, weight reduction, try to cut down on opiates and fu with me. I also advised her to avoid ETOH or recreational substances. Seborrheic dermatitis of scalp 01/02/2024 Overview (01/02/2024): Seen at [facility] dermatology Assessment & Plan (03/20/2024 3:50 PM EDT): Generally well controlled, encouraged to continue fu with [facility] Refill for fluocinolone today. Housing insecurity [...] pseudophedrine short term. Will refer her to concert pianist again so she can be evaluated for [...] albuterol prn. Will refer her back to concert pianist. RUQ pain 10/05/2023 Assessment & Plan (11/01/2023 [...] ballon inside the gastric body placed in [place] for bariatric procedure about 20 cm in [...] BI-RADS 2: Benign PAP: 07/07/20 NIL/-HPV DEXA: 3/23/21 normal bone density with lowest t-score of [...] months or sooner prn Assessment & Plan (10/09/2024 2:23 PM EDT): Control, A1c is at goal. See recent note on 08/15/2024 Assessment & Plan (08/15/2024 1:23 PM EST): [...] lumbar r egion 05/17/2017 Overview (09/17/2022): On [employer] contract. discussed tapering percocet options, not interested.. Referred to [facility] forms dept for handicap plackards documents. Referred to [facility] for polypharmacy education. Continue medications as prescribed. Discussed Narcan. Encouraged nonpharmacologic pain relief strategies. will f/up next visit Assessment & Plan (03/20/2024 3:48 PM EDT): On [employer] contract. discussed tapering percocet options, not interested, it apparently offers partial enough improvement of sxs. Patient is aware that intermediate use of opiates can cause hyperalgesia, liver toxicity, QUARTER SECTION IRONER toxicity, increase anxiety, among others. Will continue to work with chronic pain management [facility] clinic. Continue medications as prescribed. Discussed Narcan. [...] PRN for elevated BP readings.. Referred to [facility] for polypharmacy education. Continue medications as prescribed, strongly advised regarding compliance. Continue monitroing BP at home. Keep daily log of BP readings. Follow lifestyle modifications. Labs ordered, will evaluate and provide further recommendation per results. F/up 3 mo. or sooner PRN. Assessment & Plan (10/09/2024 2:23 PM EDT): Controlled, see recent note on 08/15/2024 Assessment & Plan (08/15/2024 1:25 PM EST): Controlled. Compliant w/ Exforge, Chlorthalidone. Counseled re low salt diet/increase moderate physical activity. Check home BP BIW and prn CP/GUERIN/HART Arthritis Assessment & Plan (10/09/2024 2:21 PM EDT): Mostly on both hands today, has Heberden nodules. Use Tylenol as needed, use protective gloves as needed for ADLs. Continue vitamin D supplementation to complete 6 months Reconsult as needed Resolved Problems Problem Noted Date Diagnosed Date Resolved Date Strep pharyngitis 12/26/2023 05/29/2024 Acute maxillary sinusitis 09/08/2023 Viral URI 09/03/2022 09/13/2023 Back pain 08/20/2022 12/30/2022 Onychomycosis of multiple to enails with type 2 diabetes mellitus (CMS/HCC) 05/17/2017 03/29/2024 Encounters Date Type Department Care Team Description 10/09/2024 11:45 AM EDT Office Visit [facility] [address] [place] [address] Zeinab Sykes MD Moderate persistent asthma without complication (Primary Dx); Class 2 severe obesity with serious comorbidity and body mass index (BMI) of 35.0 to 35.9 in adult, unspecified obesity type (CMS/HCC); Type 2 diabetes mellitus without complication, without long-term current use of insulin (CMS/HCC); Essential hypertension; Arthritis; Vitamin D deficiency 10/09/2024 Travel 10/01/2024 Travel 09/28/2024 Refill [facility] [address] [place] [address] Zeinab Sykes MD Other intervertebral disc displacement, lumbar region 09/28/2024 Population Health Risk Score [facility] ([facility]) Department [address] [phone] Provider, Population Health Generic 09/25/2024 9:45 AM EDT Office Visit [facility] [address] [place] [address] Alma Jha, MEDICAL AFFAIRS SPECIALIST Lumbar back pain with radiculopathy affecting left lower extremity (Primary Dx); Long-term current use of opiate analgesic 09/25/2024 Travel 09/20/2024 Orders Only [facility] [address] [place] [address] Parag Torres MD 09/19/2024 Refill [facility] [address] [place] [address] Zeinab Sykes MD Left hand pain 08/31/2024 Refill [facility] [address] [place] [address] Zeinab Sykes MD Other intervertebral disc displacement, lumbar region 08/30/2024 Refill [facility] [address] [place] [address] Zeinab Sykes MD 08/29/2024 Refill [facility] [address] [place] [address] Oralia Aguila MD 08/27/2024 Telephone [facility] [address] [place] [address] Zeinab Sykes MD Results 08/21/2024 5:20 PM EST Office Visit [facility] [address] [place] [address] Yonathan Snider MD Subacute cough 08/21/2024 Travel 08/20/2024 Refill [facility] [address] [place] [address] Zeinab Sykes MD Type 2 diabetes mellitus without complication, without long-term current use of insulin (CMS/HCC); Other intervertebral disc displacement, lumbar region 08/15/2024 10:15 AM EST Office Visit [facility] [address] [place] [address] Zeinab Sykes MD Type 2 diabetes mellitus without complication, without long-term current use of insulin (CMS/HCC) (Primary Dx); Essential hypertension; Postmenopause bleeding; Recurrent major depressive disorder, in partial remission (CMS/HCC); Moderate persistent asthma with acute exacerbation; ADELAIDE (obstructive sleep apnea); Housing insecurity; Nasal congestion 08/15/2024 Travel 08/14/2024 Travel 08/10/[address] [address] Terra Mackey MA Chart prep 08/08/2024 5:20 PM EST Office Visit [facility] [address] [place] [address] Lia Martinez NP Acute nasopharyngitis (Primary Dx); Flu-like symptoms 08/08/2024 3:00 PM EST Office Visit [facility] ADULT DENTAL [address] [place] [address] Watkins-Maynard, Gay, DDS Fracture of removable partial denture (Primary Dx) 08/03/2024 3:30 PM EST Office Visit [facility] ADULT DENTAL [address] [place] [address] Watkins-Maynard, Gay, DDS Fracture of removable partial denture (Primary Dx) 08/03/[address] [address] Zeinab Sykes MD Other intervertebral disc displacement, lumbar region 08/03/2024 Patient Outreach [address] [address] Zeinab Sykes MD Pre-visit Planning ((Unable to reach for PVP screening, LVM)) 08/01/2024 Telephone [facility] [address] [place] [address] Zeinab Sykes MD Durable Medical Equipment (10 In 1 pillow/) 07/31/2024 9:45 AM EST Office Visit [address] [address] Alma Jha FNP Lumbar back pain with radiculopathy affecting left lower extremity (Primary Dx); Long-term current use of opiate analgesic 07/31/2024 Telephone [facility] [address] [place], [place] [phone] Alma Jha FNP SUPERVISOR [employer]: Tier System 07/31/2024 Telephone [facility] [address] [place] [address] Scarlett Gibbs RN BPI Scoring 07/31/2024 Travel 07/30/2024 Refill [facility] [address] [place] [address] Zeinab Sykes MD from Last 3 Months Immunizations Name Administration [...] Sign Reading Time Taken Comments Blood Pressure 130/75 10/09/2024 12:35 PM EDT Pulse 74 10/09/2024 11:56 AM EDT Temperature 35.7 ??C (96.3 ??F) 10/09/2024 11:56 AM E DT Respiratory Rate 20 10/09/2024 11:56 AM EDT Oxygen Saturation 97% 10/09/2024 11:56 AM EDT Inhaled Oxygen Concentration - - Weight 90.3 kg (199 lb 2 oz) 10/09/2024 11:56 AM EDT Height 160 cm (5' 3 ) 10/09/2024 11:56 AM EDT Body Mass Index 35.27 10/09/2024 11:56 AM EDT Plan of Treatment Upcoming Encounters Date Type Department Care Team (Late st Contact Info) Description 10/23/2024 11:00 AM EDT Office Visit [facility] [address] [place] [address] 10/30/2024 3:30 PM EDT Office Visit [facility] ADULT DENTAL [address] [place] [address] Gay Thompson DDS [address] [place] [address] 11/16/2024 11:00 AM EDT Nutrition [facility] DIABETES/NUTRITION [address] [place] [address] [place] [address] 01/10/2025 12:00 PM EDT Office Visit [facility] [address] [place] [address] Zeinab Sykes MD [address] [place] [address] Health Maintenance Due Date Last Done Comments CT Colonography 1959 Dental X-Ray: Bitewings 1959 Dental X-Ray: Full Mouth 1959 FIT DNA/Cologuard 1959 FIT 1959 FOBT 1959 Sigmoidoscopy 1959 Eye Exam 11/05/1969 Alcohol/Substance Use Screening 1971 Hepatitis A Vaccines (1 of 2 - Risk 2-dose series) 11/05/1978 Diabetes: Urine Protein Screening 03/08/2023 03/08/2022, 09/16/2020 Colonoscopy 2023 11/05/2020 Colorectal Cancer Screening 2023 Mammogram 03/15/2024 03/15/2022, 01/17, 10/07/2020 COVID-19 Vaccine ( season) 2024 08/24/2022, 01/15/2022, 08/04/2021, Additional history exists Influenza Vaccine (#1) 2024 , 07/28/2020, 04/05/2018 Dental Oral Exam 07/23/2024 01/20/2024, 07/22/2023 Dental Prophylaxis 07/23/2024 01/20/2024, 07/22/2023 SDOH Screening 12/20/2024 12/21/2023 Lipid Panel 01/05/2025 01/06/2024, 05/19, 09/16/2020 Depression Monitoring (PHQ-9) 02/12/2025 08/15/2024, 08/15/2024 Diabetes: Foot Exam 03/29/2025 03/29/2024, 03/29/2024, 03/29/2024, Additional history exists Diabetes: Hemoglobin A1C 04/11/2025 025, 03/29/2024, 10/05/2023, Additional history exists Cervical Cancer Screening 07/07/2025 HPV/Cotest 07/07/2025 07/07/2020 Depression Screening 08/15/2025 08/15/2024, 08/15/19 Tobacco Screening 10/09/2025 10/09/2024 Pap Smear 06/01/2027 06/01/2024, 07/07/2020 DTaP/Tdap/Td Vaccines [...] Patient graduated from [facility]. Procedures Procedure Name Priority Date/Time Associated Diagnosis Comments XR WRIST 3+ VIEWS LEFT Routine 10/16/2024 5:26 PM EDT XR HIP LEFT WITH PELVIS 1 VIEW Routine 10/16/2024 5:24 PM EDT XR ELBOW 3+ VIEWS LEFT Routine 10/16/2024 5:[address] CERVICAL SPINE WO CONTRAST Routine 10/16/2024 5:18 PM EDT POCT GLYCATED HEMOGLOBIN, TOTAL Routine 10/09/2024 12:03 PM EDT Type 2 diabetes mellitus without complication, without long-term current use of insulin ([facility]) POCT GLUCOSE Routine 10/09/2024 11:58 AM EDT Type 2 diabetes mellitus without complication, without long-term current use of insulin ([facility]) POCT DIDIER-14 URINE DRUG SCREEN Routine 09/25/2024 11:35 AM EDT Lumbar back pain with radiculopathy affecting left lower extremity CREATININE, SERUM Routine 09/18/2024 3:5 7 PM EST Postmenopause bleeding UREA NITROGEN (BUN) Routine 09/18/2024 3 :57 PM EST Postmenopause bleeding POLYSOMNOGRAM Routine 09/11/2024 ADELAIDE (obstructive sleep apnea) XR CHEST 2 VIEWS Routine 08/22/2024 3:53 [...] complication, without long-term current use of insulin ([facility]) POCT RAPID COVID ANTIGEN [...] pain with radiculopathy affecting left lower extremity PAP SMEAR Routine 06/01/2024 2:43 PM EST Postmenopause bleeding Full PROPHYLAXIS - ADULT Routine 01/20/2024 2:00 [...] URINE W/CREATININE Routine 03/08/2022 3:04 PM EDT HM COLONOSCOPY Routine 11/05/2020 11:36 AM EDT HPV MRNA E6/E7 Routine 07/07/2020 12:00 AM EST from Last 3 Months or Most Recently Relevant to Health Maintenance Results * XR Wrist 3+ Views Left (10/16/2024 5:26 PM EDT) Anatomical Region Laterality Modality Upper Extremities, Wrist Left Radiogr aphic Imaging 10/16/2024 5:26 PM EDT Narrative 10/16/2024 5:28 PM EDT ? [facility] ?[address] ?[place] [address] ?XRay Report ? Signed ? Patient: Rhonda Fernández ?MR# ?? : [id number] ? : 1960 ?Acct:[id number] ? Age/Sex: 63 / F ?ADM Date: //25 ? Loc: HO.ED ? Attending Dr: ? Ordering Physician: Lanette Laura PA-C ?? Date of Service: 10/16/24 ?? Procedure(s): XR wrist LT min 3V ?? Accession Number(s): [id number] ? cc: Zeinab Sykes MD; Lanette Laura [...] by Enedina Beltran MD in OV> ? 10/16/241726 ? DD/ 25 ? TD/TT: 10/16/24 1726 ? Excel Analyst: ? Procedure Note Donzacter, Image - 10/16/[address] [address] XRay Report Signed Patient: Karla Fernández# : [id number] : 1960Acct:[id number] Age/Sex: 63 / FADM Date: 10/16/24 Loc: HO.ED Attending Dr: Ordering Physician: Lanette Laura PA-C Date of Service: 10/16/24 Procedure(s): XR wrist LT min 3V Accession Number(s): [id number] cc: Zeinab Sykes MD; Lanette Laura PA-C [...] OV> 10/16/241726 DD/ 172 TD/TT: 10/16/24 172 Excel Analyst: [facility] External Provider IMG XR PROCEDURES Final Result * XR Hip left with Pelvis 1 view (10/16/2024 5:24 PM EDT) Anatomical Region Laterality Modality Lower Extremities, Hip Bilateral Radiograp hic Imaging 10/16/2024 5:24 PM EDT Narrative 10/16/2024 5:26 PM EDT ? [facility] ?[address] ?[place] [address] ?XRay Report ? Signed ? Patient: Gerry Mclaughlin,Rhonda ?MR# ?? : [id number] ? : 1960 ?Acct:[id number] ? Age/Sex: 63 / F ?ADM Date: 10/16/24 ? Loc: HO.ED ? Attending Dr: ? Ordering Physician: Lanette Laura PA-C ?? Date of Service: 10/16/24 ?? Procedure(s): XR hip LT w PEL1V ?? Accession Number(s): [id number] ? cc: Zeinab Sykes MD; Lanette Laura [...] DD/ 1724 ? TD/TT: 10/16/24 1724 ? Excel Analyst: ? Procedure Note Carolina Hernandez - 10/16/2024 [place] [address] XRay Report Signed Patient: Karla Fernández# : [id number] : 1960Acct:[id number] Age/Sex: 63 / FADM Date: 10/16/24 Loc: HO.ED Attending Dr: Ordering Physician: Lanette Laura PA-C Date of Service: 10/16/24 Procedure(s): XR hip LT w PEL1V Accession Number(s): [id number] cc: Zeinab Sykes MD; Lanette Laura PA-C [...] by Enedina Beltran MD in OV> 10/16/24 1725 DD/ 1724 TD/TT: 10/16/24 1724 Excel Analyst: [facility] External Provider IMG XR PROCEDURES Final Result * XR Elbow 3+ Views Left (10/16/2024 5:23 PM EDT) Anatomical Region Laterality Modality Upper Extremities, Elbow Left Radiogr aphic Imaging 10/16/2024 5:23 PM EDT Narrative 10/16/2024 5:25 PM EDT ? [facility] ?[address] ?[place] [address] ?XRay Report ? Signed ? Patient: Gerry MclaughlinRhonda ?MR# ?? : [id number] ? : 1960 ?Acct:[id number] ? Age/Sex: 63 / F ?ADM Date: 10/16/24 ? Loc: HO.ED ? Attending Dr: ? Ordering Physician: Lanette Laura PA-C ?? Date of Service: 10/16/24 ?? Procedure(s): XR elbow LT min 3V ?? Accession Number(s): [id number] ? cc: Zeinab Sykes MD; Lanette Laura [...] in OV> ? 10/16/24 1724 ? DD/ 1723 ? TD/TT: 10/16/24 1723 ? Excel Analyst: ? Procedure Note Donotuseinterpreter, Image - 10/16/2024 [facility] [address] [place] [address] XRay Report Signed Patient: Karla Fernández# : [id number] : 1960Acct:[id number] Age/Sex: 63 / FADM Date: 10/16/24 Loc: HO.ED Attending Dr: Ordering Physician: Lanette Laura PA-C Date of Service: 10/16/24 Procedure(s): XR elbow LT min 3V Accession Number(s): [id number] cc: Zeinab Sykes MD; Lanette Laura PA-C [...] 10/16/24 1724 DD/ 1723 TD/TT: 10/16/24 1723 Excel Analyst: [facility] External Provider IMG XR PROCEDURES Final Result * CT Cervical Spine w/o Contrast (10/16/2024 5:18 PM EDT) Anatomical Region Laterality Modality Spine, C-spine Computed Tomogra phy 10/16/2024 5:18 PM EDT Narrative 10/16/2024 5:19 PM EDT ? [facility] ?[address] ?[place] [address] ? CT Scan Report ? Signed ? Patient: Gerry Mclaughlin,Rhonda ?MR# ?? : [id number] ? : 1960 ?Acct:[id number] ? Age/Sex: 63 / F ?ADM Date: 04/01/25 ? Loc: HO.ED ? Attending Dr: ? Ordering Physician: Lanette Laura PA-C ?? Date of Service: 10/16/24 ?? Procedure(s): CT cervical spine wo IV con ?? Accession Number(s): [id number] ? cc: Zeinab Sykes MD; Lanette Laura PA-C ? Report Number: ?? [id number]: Total DLP = ??605.00 mGy-cm ? CLINICAL [...] Melania Raza MD in OV> ? 10/16/24 8709 ? DD/ ? TD/TT: 10/16/241717 ? Excel Analyst: ? Procedure Note Carolina Hernandez - 10/16/[address] [place] [address] [address] Scan Report Signed Patient: Karla Fernández# : [id number] : 1960Acct:[id number] Age/Sex: 63 / FADM Date: 10/16/24 Loc: HO.ED Attending Dr: Ordering Physician: Lanette Laura PA-C Date of Service: 10/16/24 Procedure(s): CT cervical spine wo IV con Accession Number(s): [id number] cc: Zeinab Sykes MD; Lanette Laura PA-C Report Number: [id number]: Total DLP = 605.00 mGy-cm CLINICAL HISTORY: [...] signed by Melania Raza MD in OV> 10/16/241718 DD/ 17 TD/TT: 10/16/241717 Excel Analyst: [facility] External Provider IMG CT PROCEDURES Final Result * (ABNORMAL) POCT HGB A1C (10/09/2024 12:03 PM EDT) Hemoglobin A1C 6.8(A) 4.0 - 6.0 % QC Media Lot # [id number] Lot# Expiration Date 120,526 Blood 10/09/2024 12:0 3 PM EDT Zeinab Sykes MD POINT OF CARE TEST ENTER /EDIT ORDERABLES Final Result * POCT Glucose (10/09/2024 11:58 AM EDT) Only the most recent of2 resultswithin the time period is included. Glucose Blood, POC 200 60 - 200 mg/dL QC Media Lot # [id number] Lot# Expiration Date 101,425 Blood Capillary blood specimen / Unknown 10/09/2024 11:58 AM EDT Zeinab Sykes MD POINT OF CARE TEST ENTER /EDIT ORDERABLES Final Result * POCT DIDIER-14 Urine Drug Screen (09/25/2024 11:35 AM EDT) Only the most recent of2 resultswithin the time period is included. Oxycodone Screen, Urine Positive Urine Urine specimen obtained by clean catch procedure / Unknown 09/25/2024 11:35 AM EDT Narrative Scarlett Gibbs, RN - 09/25/2024 11:35 AM EDT UTOX cup Lot#[id number] Exp. 03/06/26 Internal Pass Control us Almajazlyn Jha MEDICAL AFFAIRS SPECIALIST POINT OF CARE TEST ENTER/EDIT ORDERABLES Final Result * Creatinine, Serum (09/18/2024 3:57 PM EST) Creatinine, Serum 1.01 0.5 - 1.4 mg/dL [facility] Estimated Glomerular Filt Rate 55 [facility] Comment:Chronic Kidney Disea se: Estimated GFR < 60 mL/min/[id number] Kidney Disease: Estimated GFR < 15 mL/min/1.73m2 09/18/2024 3:57 PM EST 09/18/2024 3:57 PM EST Generic External Data Provider LAB BLOOD ORDERAB LES Final Result Performing Organization Address City/[facility] Co de Phone Number [facility] [address] [place] [phone] * BUN (Blood Urea Nitrogen) (09/18/2024 3:57 PM EST) Urea Nitrogen (BUN) 13 9 - 16 mg/dL [facility] 09/18/2024 3:57 PM EST 09/18/2024 3:57 PM EST us Generic External Data Provider LAB BLOOD ORDERAB LES Final Result Performing Organization Address City/[facility] Co de Phone Number [facility] [address] [place] [phone] * Polysomnography (09/11/2024) us Zeinab Sykes MD [facility] ORDERABLES Final Result * XR Chest 2 Views (08/22/2024 3:53 PM EST) Anatomical Region Laterality Modality Chest Radiographic Celia ging 08/22/2024 3:53 PM EST Narrative 08/22/2024 4:30 PM EST ?[facility] ?[address] ?[place], [place] [address] ?XRay Report ? Signed ? Patient: Gerry Mclaughlin,Rhonda ?MR# ?? : [id number] ? : 1960 ?Acct:[id number] ? Age/Sex: 63 / F ?ADM Date: 08/22/24 ? Loc: HO.HHCX ? Attending Dr: Yonathan Snider MD ? Ordering Physician: Yonathan Snider MD ?? Date of Service: 08/22/24 ?? Procedure(s): XR chest 2V ?? Accession Number(s): [id number] ? cc: Yonathan Snider MD ? EXAMINATION: [...] DD/ 1553 ? TD/TT: 08/22/24 1600 ? Excel Analyst: MSM ? Procedure Note Mary, Image - 08/22/2024 [facility] [address] [place] [address] XRay Report Signed Patient: Karla Fernández# : [id number] : 1960Acct:[id number] Age/Sex: 63 / FADM Date: 08/22/24 Loc: .HHCX Attending Dr: Yonathan Snider MD Ordering Physician: Yonathan Snider MD Date of Service: 08/22/24 Procedure(s): XR chest 2V Accession Number(s): [id number] cc: Yonathan Snider MD EXAMINATION: XR CHEST [...] 08/22/24 1627 DD/ 1553 TD/TT: 08/22/24 1600 Excel Analyst: MSM Yonathan Snider MD IMG XR PROCEDURES Edited Result - Final * Influenza B (ID NOW Rapid Molecular) (08/21/2024 5:37 PM EST) Only the most recent of3 resultswithin the time period is included. Influenza B Negative Negative, Indeterminate [facility] Swab 08/21/2024 5:37 PM EST Yonathan Snider MD POINT OF CARE TEST ENTER/EDIT OR DERABLES Final Result [facility] [address] [place] [address] [phone] * Influenza A (ID NOW Rapid Molecular) (08/21/2024 5:37 PM EST) Only the most recent of3 resultswithin the time period is included. Influenza A Negative Negative, Indeterminate [facility] Swab 08/21/2024 5:37 PM EST us Yonathan Snider MD POINT OF CARE TEST ENTER/EDIT OR DERABLES Final Result [facility] [address] [place] [address] [phone] * POCT Rapid COVID Ag (08/21/2024 5:10 PM EST) Only the most recent of3 resultswithin the time period is included. Pathologist [facility] Rapid COVID Ag Negative Swab 08/21/2024 5:10 PM EST Yonathan Snider MD POINT OF CARE TEST ENTER/EDIT OR DERABLES Final Result * (ABNORMAL) Respiratory Viral Panel PCR (08/21/2024 2:25 PM EST) [facility] Adenovirus PCR Not Detected Not Detect. [facility] Bordetella pertussis PCR Not Detected Not Detect. [facility] Comment:Interpret results wi th caution. If B. pertussis isspecifically suspected, additional testing using analternate method is recommended. Bordetella parapertussis PCR Not Detected Not Detect. [facility] Chlamydia pneumoniae PCR Not Detected Not Detect. [facility] Coronavirus 229E PCR Not Detected Not Detect. [facility] Coronavirus HKU1 PCR Not Detected Not Detect. [facility] Coronavirus NL63 PCR Not Detected Not Detect. [facility] Coronavirus OC43 PCR Detected(A) Not Detect. [facility] SARS-CoV-2 PCR Not Detected Not Detect. [facility] Comment:SARS-CoV-2 not detec jocelyn by real-time RT-PCR.Note: If clinical suspicion for Sars-CoV-2 is high, continueto maintain precautions and consider repeat testing.Test results should be interpreted in the context ofclinical findings and other laboratory data.Rare polymorphisms exist that could lead to false-negativeor false-positive results. If results do not match theclinical findings, additional testing should be considered.Results reported to [facility].This test has been authorized by the FDA under the EmergencyUse Authorization (EUA) for use by authorized laboratories. Influenza A PCR Not Detected Not Detect. [facility] Influenza B PCR Not Detected Not Detect. [facility] Human metapneumovirus PCR Not Detected Not Detect. [facility] Rhino/Enterovirus PCR Not Detected Not Detect. [facility] Mycoplasma pneumoniae PCR Not Detected Not Detect. [facility] Parainfluenza 1 PCR Not Detected Not Detect. [facility] Parainfluenza 2 PCR Not Detected Not Detect. [facility] Parainfluenza 3 PCR Not Detected Not Detect. [facility] Parainfluenza 4 PCR Not Detected Not Detect. [facility] RSV PCR Not Detected Not Detect. [facility] Resp Panel NA Note See Note H [facility] Comment:All results must be correlated [...] assay is performed by Multiplexed PCR, utilizing [address] Film Array. 08/21/2024 2:25 PM EST 08/22/2024 2:39 PM EST us Yonathan Snider MD LAB BLOOD ORDERABLES Final Resul t [facility] [address] [place] [phone] [phone] * POCT Rapid RSV JI ID NOW (08/08/2024 5:54 PM EST) RSV Rapid Ag POC Negative Negative [facility] Swab 08/08/2024 5:54 PM EST Lia Martinez LAMINE POINT OF CARE TEST ENTER/EDIT O RDERABLES Final Result [facility] [address] [place] [address] [phone] * Pap Smear (06/01/2024 2:43 PM EST) 06/01/2024 2:43 PM EST 06/04/2024 9:25 AM EST Narrative [facility] - 06/20/2024 7:51 AM EST ----- ------- Name: Rhonda Fernández ? Age/Sex: 63/F ? : 1960 Unit#: [id number] ?? Attend Dr: Aisha Mcclain CNM ?Re06/01/24 ?Status: DEP REF ? Location: HO.LNP ?Disch: ? ----- ------- SPEC : [id number] ?RECD: 06/04/24 ? STATUS: ??SOUT ? REQ NUM: [id number] ? DARWIN: 06/01/24-1443 ? SUBM DR: Aisha [...] Copies To: ?? Zeinab Sykes MD ?? [facility] ?? [address] [facility] ?? [place] [address] ?? [phone] ?? Aisha Mcclain CNM ?? [facility] ?? [address] [facility] [address] ?? [place] [address] ?? [phone] ----- ------- Signed (signature on file) INDERJIT Bloom ([facility]) 06/20/24 0751 ? ----- ------- ? END OF REPORT ? us Generic External Data Provider LAB CYTOLOGY JERED STAFFORD Final Result [facility] [address] [place] [phone] * (ABNORMAL) Lipid Panel with Reflex to Direct LDL (01/06/2024 12:38 PM EDT) Triglycerides 91 <150 mg/dL [facility] Comment:Desirable Triglyceri de: less than 150 mg/dLBorderline High Triglyceride 150-199 mg/dLHigh Triglyceride: 200-499 mg/dLVery High Triglyceride: greater than or equal to 5OO mg/dL Cholesterol 211(H) <200 mg/dL [facility] Comment:Desirable Cholestero l: less than 200 mg/dLBorderline High Cholesterol: 200-239 mg/dLHigh Cholesterol: greater than 239 mg/dL LDL Cholesterol Calculated 132(H) <100 mg/dL [facility] Comment:Desirable LDL: less than 100 mg/dLNear Optimal/Above Optimal LDL: 110- 129 mg/dLBorderline High LDL: 130-159 mg/dLHigh LDL: 160-189 mg/dLVery High LDL: greater than or equal to 190 mg/dL HDL Cholesterol 61 >40 mg/dL [facility] Comment:Desirable HDL: great er than 40 mg/dL Note: This HDL assay may give artificially low results in patients with liver disease. Blood 01/06/2024 12:3 8 PM EDT 01/06/2024 4:21 PM EDT Zeinab Sykes MD LAB BLOOD ORDERABLES Fin al Result Performing Organization Address [facility] de Phone Number [facility] [address] [place] [phone] * Hepatitis Panel, General (01/06/2024 12:38 PM EDT) Hepatitis A IgM Nonreactive Nonreactive [facility] Comment:IgM antibodies to GUERIN V not detected; does not exclude earlyacute or recovered HAV infection. ~Hepatitis B Surface Antibody REACTIVE Nonreactive [facility] Comment:REACTIVE: > 11.99 mI U/mL Hepatitis B Core Antibody Nonreactive Nonreactive [facility] Hepatitis C Antibody Nonreactive Nonreactive [facility] Comment:Antibodies to HCV no t detected; does not exclude early acuteHCV infection. Hepatitis B Surface Ag Negative Negative [facility] Blood 01/06/2024 12:3 8 PM EDT 01/06/2024 4:21 PM EDT Zeinab Sykes MD LAB BLOOD ORDERABLES Fin al Result Performing Organization Address [facility] de Phone Number [facility] [address] [place] [phone] * HIV-1/2 Antigen and Antibodies, Fourth Generation, with Reflexes (01/06/2024 12:38 PM EDT) HIV AB/AG Nonreactive Nonreactive [facility] Comment:HIV-1 p24 Ag and/or HIV-1/HIV-2 Ab not detected.A test result that is nonreactive does not exclude thepossibility of exposure to or infection with HIV-1 and/orHIV-2. Nonreactive results in this assay for individualswith prior exposure to HIV-1 and/or HIV-2 may be due toantigen and antibody levels that are below the limit ofdetection of this assay.The [employer] HIV Ag/Ab Combo assay result andsupplemental assay results should be interpreted inconjunction with the patient's clinical presentation,history and other laboratory results. If the results areinconsistent with clinical evidence, additional testing issuggested to confirm the result. Blood Venous blood specimen / Unknown 01/06/2024 12:38 PM EDT 01/06/2024 4:21 PM EDT us Zeinab Sykes MD LAB BLOOD ORDERABLES Fin al Result [facility] [address] [place] [phone] * Mammography Report 1 (03/15/2022 5:00 PM EDT) Anatomical Region Laterality Modality Breast Bilateral Mammography 03/15/2022 5:00 PM EDT Narrative 03/16/2022 8:33 AM EDT Refer to the Notes tab for result details [facility] Procedure: Mammography Report 1 Procedure Note Provider, MD Parag - 10/10/2022 Refer to the Notes tab for result details [facility] Procedure: Mammography Report 1 us Evelyn Ledesma MEDICAL AFFAIRS SPECIALIST IMG BI PROCEDURES Final Re sult * [...] Creatinine, Urine 244 20 - 275 mg/dL [facility] 03/08/2022 3:04 PM EDT Rebekah Samayoamitra PBX WIRE CHIEF LAB URINE ORDERABLES Final Res ult Performing Organization Address [facility] Co de Phone Number [facility] [address] * Hm Colonoscopy (11/05/2020 11:36 AM EDT) Historical Provider MD HEALTH MAINTENANCE Final Result * HPV mRNA E6/E7 (07/07/2020 12:00 AM EST) HPV nRNA E6/E7 Not Detected Not Detected [facility] Comment: This test was performed using the APTIMA HPV Assay ([employer] This assay detects E6/E7 viral messenger RNA (mRNA) from 14 high-risk HPV types (16,18,31,33,35,39,45,51,52,56,58,59,66,68). ?? The analytical performance characteristics of this assay have been determined by [employer]. The modifications have not been cleared or approved by the FDA. This assay has been validated pursuant to the CLIA regulations and is used for clinical purposes. 07/07/2020 Historical Provider LAB BLOOD ORDERABLES Sera l Result Performing Organization Address [facility] de Phone Number [facility] [address] from Last 3 Months or Most Recently Relevant to Health Maintenance Insurance [facility] ADULT Care Teams Middle School Counselor Relationship Specialty Start Date End Date Zeinab Sykes MD [address] [place] [phone] PCP - General Internal Medicine 01/02/24 Tomeka Martins Hardwood Floor RefinisherBenefits Officer 10/27/23
--- OUTSIDE RECORDS SUMMARY | 2024-10-16 18:30 | XMS_ITS | Clinical Summary ---
Author Organization [facility] Address [address] [place] [address] Care Team Providers Care Seat Maker Name Role Phone Meryl Montes Primary Care Provider Surgical History Surgery Date Site/Laterality Comments BREAST REDUCTION PROCEDURE: HI BREAST REDUCTION BACK SURGERY PROCEDURE: HISTORICAL BACK [...] age to complete this topic Care Teams Seat Maker Relationship Specialty Start Date End Date Meryl Montes [address] [place] [phone] PCP - General 05/07/22
--- OUTSIDE RECORDS SUMMARY | 2024-10-16 18:30 | XMS_ITS | Clinical Summary ---
Author Organization [facility], Address [address] [place] [address] [place] [address] Phone Care Team Providers Care Pot Lining Supervisor Name Role Phone Evelyn Rodriguez Primary [...] age to complete this topic Insurance MEDICAID [place] Care Teams Pot Lining Supervisor Relationship Specialty Start Date End Date Evelyn Rodriguez FNP PCP - General 02/18/23
--- OUTSIDE RECORDS SUMMARY | 2024-10-16 18:30 | XMS_ITS | Encounter Summary ---
Author Organization [facility], Address [address] [place] [address] Phone Care Team Providers Care Electronic Test Technician Name Role Phone Evelyn Rodriguez Primary Care Provider Silvana vailable Encounter Details Date Type Department Care Team (Late st Contact Info) Description 02/18/2023 Documentation Only [facility], [address] [place] [address] Xiao Sheppard [address] [place] [address] Social History Tobacco Use Types [...] on filedocumented in this encounter Care Teams Electronic Test Technician Relationship Specialty Start Date End Date Evelyn Rodriguez FNP PCP - General 02/18/23 documented as of this encounter
--- OUTSIDE RECORDS SUMMARY | 2024-10-16 18:31 | XMS_ITS | Encounter Summary ---
Author Organization [employer] [facility] Address [address] [place] [address] [address]t [place] [address] Care Team Providers Care Farm Operations Technical Director Name Role Phone Baltazar Evelyn EDWARDS Primary Care Provider [phone] Oralia Aguila MD Primary Care Provider Zeinab Sykes MD Primary Care Provider + Encounter Details Date Type Department Care Team (Latest Contact Info) Description 12/21/2018 Abstract [facility] CONVERSIONS Dental, Provider, DDS Social [...] Care Team ( st Contact Info) Description 10/23/2024 11:00 AM EDT Office Visit [facility] MEDICINE [address] [place] [address] 10/30/2024 3:30 PM EDT Office Visit [facility] ADULT DENTAL [address] [place] [address] Gay Thompson, DDS [address] [place] [address] 11/16/2024 11:00 AM EDT Nutrition [facility] DIABETES/NUTRITION [address] [place], [place] [phone] Juana Gusman, MONICA [address] [place], [place] [phone] 01/10/2025 12:00 PM EDT Office Visit [facility] MEDICINE [address] [place] [address] Zeinab Sykes MD [address] [place], [place] [phone] documented as of this encounter Visit Diagnoses Not on filedocumented in this encounter Care Teams Farm Operations Technical Director Relationship Specialty Start Date End Date Evelyn Ledesma FNP PCP - General Family Medicine 03/15/22 04/25/23 Oralia Aguila MD [address] [place] [address] [phone] PCP - General Family Medicine 04/26/23 01/01/24 Zeinab Sykes MD [address] [place] [address] [phone] PCP - General Internal Medicine 01/02/24 Tomeka Martins Print Line SupervisorFamily Consultant 10/27/23 documented as of this encounter
--- OUTSIDE RECORDS SUMMARY | 2024-10-16 18:31 | XMS_ITS | Encounter Summary ---
Author Organization [employer] [facility] Address [address] [place] [address] 7[address] [place] [address] Care Team Providers Care Shotblast Operator Name Role Phone Oralia Aguila MD Primary Care Provider [phone] Zeinab Sykes MD Primary Care Provider + Reason for Visit * Reason Comments Med Refill Encounter Details Date Type Department Care Team (Late Contact Info) Description 09/21/2023 Refill [facility] MEDICINE [address] [place] [phone] Oralia Aguila MD [address] [place], [place] [phone] Neuropathy Social History Tobacco Use Types Packs/Day [...] Description 10/23/2024 11:00 AM EDT Office Visit [facility] MEDICINE [address] [place], [place] [phone] 10/30/2024 3:30 PM EDT Office Visit [facility] ADULT DENTAL [address] [place] [address] Watkins-Maynard, Gay, DDS [address] [place] [address] 11/16/2024 11:00 AM EDT Nutrition [facility] DIABETES/NUTRITION [address] [place] [address] Juana Gusman, RD [address] [place] [address] 01/10/2025 12:00 PM EDT Office Visit [facility] MEDICINE [address] [place] [address] Zeinab Sykes MD [address] [place] [phone] documented as of this encounter Goals Goal Patient Goal Type Associated Problems Recent Progress Patient-Stated? Author Patient will manage their medication General On track( 023 11:18 AM EDT) Citlali Ocampo, PharmD Note: Began medboxes. Goal achieved 11/19/22. Patient graduated from [facility]. documented as of this encounter Visit Diagnoses Diagnosis Neuropathy Mononeuritis of unspecified site documented in this encounter Care Teams Shotblast Operator Relationship Specialty Start Date End Date Oralia Aguila MD [address] [place] [phone] PCP - General Family Medicine 04/26/23 01/01/24 Zeinab Sykes MD [address] [place] [address] [phone] PCP - General Internal Medicine 01/02/24 Tomeka Martins Post Acute Care Nurse PractitionerSap Bobj Developer 10/27/23 documented as of this encounter
--- OUTSIDE RECORDS SUMMARY | 2024-10-16 18:31 | XMS_ITS | Encounter Summary ---
Author Organization [employer] [facility] Address [address] [place] [address] 7t [place] [address] Care Team Providers Care Senior Speech Pathologist Name Role Phone Baltazar Evelyn EDWARDS Primary Care Provider [phone] Oralia Aguila MD Primary Care Provider [phone] Zeinab Sykes MD Primary Care Provider + Encounter Details Date Type Department Care Team (Latest Contact Info) Description 10/30/2020 Abstract [facility] CONVERSIONS Dental, Provider, DDS [...] Description 10/23/2024 11:00 AM EDT Office Visit [facility] MEDICINE [address] [place] [address] 10/30/2024 3:30 PM EDT Office Visit [facility] ADULT DENTAL [address] [place], [place] [phone] Gay Thompson, DDS [address] [place] [address] 11/16/2024 11:00 AM EDT Nutrition [facility] DIABETES/NUTRITION [address] [place], [place] [phone] Juana Gusman, MONICA [address] [place], [place] [phone] 01/10/2025 12:00 PM EDT Office Visit [facility] MEDICINE [address] [place] [address] Zeinab Sykes MD [address] [place], [place] [phone] documented as of this encounter Visit Diagnoses Not on filedocumented in this encounter Care Teams Senior Speech Pathologist Relationship Specialty Start Date End Date Evelyn Ledesma FNP PCP - General Family Medicine 03/15/22 04/25/23 Oralia Aguila MD [address] [place] [address] [phone] PCP - General Family Medicine 04/26/23 01/01/24 Zeinab Sykes MD [address] [place] [address] [phone] PCP - General Internal Medicine 01/02/24 Tomeka Martins Psychic ReaderPrison Librarian 10/27/23 documented as of this encounter
== END 2024-10-16 17:53 | disposition home or self-care (01) ==
PROVIDERS: Emergency Provider Emergency Medicine; PCP Internal Medicine
DX: M62.838 Other muscle spasm (principal); S16.1XXA Strain of muscle, fascia and tendon at neck level, initial encounter; S29.011A Strain of muscle and tendon of front wall of thorax, initial encounter; S63.502A Unspecified sprain of left wrist, initial encounter; S50.02XA Contusion of left elbow, initial encounter; S70.02XA Contusion of left hip, initial encounter; V43.52XA Car driver injured in collision with other type car in traffic accident, initial encounter; M25.512 Pain in left shoulder; M25.532 Pain in left wrist; Y93.89 Activity, other specified; Y92.488 Other paved roadways as the place of occurrence of the external cause; Y99.9 Unspecified external cause status
CPT/HCPCS: 72125; 73080; 73110; 73502; 99284

== ENCOUNTER → 2024-10-16 15:53 | Outpatient (BNV) | payer MEDICAID, SELFPAY | PROVIDERS: Emergency Provider Emergency Medicine; PCP Internal Medicine; Visit Provider Radiology Diagnostic Radiology | DX: M25.552 Pain in left hip (principal); M25.532 Pain in left wrist; M48.02 Spinal stenosis, cervical region; M25.522 Pain in left elbow | CPT/HCPCS: 72125; 73080; 73110; 73502 ==

== ENCOUNTER 2024-10-18 12:58 | Outpatient (REF) | payer MEDICARE, MEDICAID, SELFPAY ==
--- NOTE | ~2024-10-18 | CT_ITS ---
CLINICAL HISTORY: R10.2 - Pelvic and perineal pain CT abdomen and pelvis with contrast Comparison: None Findings: No consolidation or effusion. Unremarkable gallbladder and solid organs. No urolithiasis. No bowel obstruction, pneumoperitoneum, or pneumatosis. Pelvic contents unremarkable. Normal appendix. The bones are intact. IMPRESSION: No acute findings. This document has been electronically signed by: Amalia Potter MD on 10/19/2024 16:13:40
--- OUTSIDE RECORDS SUMMARY | 2024-10-18 14:13 | XMS_ITS | Encounter Summary ---
Author Organization [employer] [facility] Address [address] [place] [address] [place] [address] Care Team Providers Care Home Therapy Teacher Name Role Phone Evelyn Ledesma Primary Care Provider [phone] Oralia Aguila MD Primary Care Provider [phone] Zeinab Sykes MD Primary Care Provider + Reason for Visit * Reason Comments Med Refill Encounter Details Date Type Department Care Team (Late Contact Info) Description 02/05/2023 Refill [facility] MEDICINE [address] [place] [address] Evelyn Ledesma FNP [address] [place] [address] Dept [place] [address] Neuropathy Social History Tobacco Use Types Packs/Day [...] 10/23/2024 11:00 AM EDT Office Visit [facility] MEDICINE [address] [place] [address] 10/30/2024 3:30 PM EDT Office Visit [facility] ADULT DENTAL [address] [place] [address] Watkins-Maynard Gay, DDS [address] [place] [address] 11/16/2024 11:00 AM EDT Nutrition [facility] DIABETES/NUTRITION [address] [place] [address] Juana Gusman, RD [address] [place] [address] 01/10/2025 12:00 PM EDT Office Visit [facility] MEDICINE [address] [place] [address] Zeinab Sykes MD [address] [place] [address] documented as of this encounter Goals Goal Patient Goal Type Associated Problems Recent Progress Patient-Stated? Author Patient will manage their medication General On track( 023 11:18 AM EDT) Citlali Ocampo, PharmD Note: Began medboxes. Goal achieved 11/19/22. Patient graduated from [facility]. documented as of this encounter Visit Diagnoses Diagnosis Neuropathy Mononeuritis of unspecified site documented in this encounter Care Teams Home Therapy Teacher Relationship Specialty Start Date End Date Evelyn Ledesma FNP PCP - General Family Medicine 03/15/22 04/25/23 Oralia Aguila MD [address] [place] [address] [phone] PCP - General Family Medicine 04/26/23 01/01/24 Zeinab Sykes MD [address] [place] [address] [phone] PCP - General Internal Medicine 01/02/24 Tomeka Martins Field Health OfficerPrecision Farming Coordinator 10/27/23 documented as of this encounter
--- OUTSIDE RECORDS SUMMARY | 2024-10-18 14:13 | XMS_ITS | Clinical Summary ---
Author Organization [employer] [facility] Address [address] [place] [address] 7[address] [place] [address] Care Team Providers Care Account Support Rep Name Role Phone Zeinab Sykes MD Primary [...] in the morning. Active oxymetazoline (Afrin Nasal Rush) 0.05 % nasal spray Administer 2 sprays [...] complication, without long-term current use of insulin ([facility]) 1 each by Other route Once per day. USE TO TEST BLOOD SUGAR ONCE A DAY 100 each 3 024 Active glucose blood (FREESTYLE LITE) test stripIndications:T ype 2 diabetes mellitus without complication, without long-term current use of insulin ([facility]) USE TO TEST BLOOD SUGAR ONCE A DAY 100 each 3 024 Active sodium chloride (Lander Nasal Rush) 0.65 % nasal sprayIndications:A cute nasopharyngitis Administer 1 spray into each nostril if needed for congestion. 30 mL 1 025 2025 Active Alcohol Swabs (Alcohol Prep) padsIndications:Ty pe 2 diabetes mellitus without complication, without long-term current use of insulin ([facility]) USE TWICE DAILY 100 each [...] 12 HOURS DIRECTED DIRECTED 30 patch 3 025 Active chlorthalidone (Hygroton) 25 MG tablet TAKE 1/2 TABLET BY MOUTH EVERY MORNING 45 tablet 3 025 Active celecoxib (CeleBREX) 100 MG capsuleIndications :Left [...] 1 Active ergocalciferol (Vitamin D2) 1.25 MG (50039 UT) capsule Take 1 capsule (1.25 mg) by mouth 1 (one) time per week. 12 capsule 1 025 Active acetaminophen (Tylenol 8 Hour) 650 MG ER tablet Take 1 tablet (650 mg) by mouth every 8 (eight) hours if needed for mild pain. Do not crush, chew, or split. 120 tablet 025 2024 Active gabapentin (Neurontin) 300 MG capsuleIndications :Neuropathy TAKE 1 CAPSULE BY MOUTH THREE TIMES DAILY IN THE MORNING, EVENING, AND BEDTIME 90 capsule 3 025 Active celecoxib (CeleBREX) 100 MG capsuleIndications :Left hand pain Take 1 capsule (100 mg) by mouth 2 times daily. 60 capsule 3 024 2024 Discontinued gabapentin (Neurontin) 300 MG capsuleIndications :Neuropathy TAKE 1 CAPSULE BY MOUTH THREE TIMES DAILY IN THE MORNING, EVENING, AND BEDTIME 90 capsule 3 024 2024 Discontinued ergocalciferol (Vitamin D2) 1.25 MG (01798 UT) capsule TAKE 1 CAPSULE BY MOUTH [...] bx, I will fu or refer to CONTAINERS SALES REPRESENTATIVE after US reports. Left foot pain 03/29/2024 [...] disc, s/p vagus nerve stimulator, neuropathy Last AIR TRAFFIC CONTROL OPERATOR Agreement: 03/13/24 Tier 3: AIR TRAFFIC CONTROL OPERATOR visit Q4-6 months. (Last evaluated Jul 2024 [...] in 3mo Fatty liver 02/04/2024 Overview (03/29/2024): [facility] on 10/2023 showed Fatty liver. Normal LFTs/albumin Assessment & Plan (03/29/2024 1:40 PM EDT): LFTs remain stable/normal. Dx d/w patient and advised her to continue tight control of DM, weight reduction, try to cut down on opiates and fu with me. I also advised her to avoid ETOH or recreational substances. Seborrheic dermatitis of scalp 01/02/2024 Overview (01/02/2024): Seen at [facility] dermatology Assessment & Plan (03/20/2024 3:50 PM EDT): Generally well controlled, encouraged to continue fu with [facility] derm Refill for fluocinolone today. Housing insecurity 01/02/2024 Assessment & Plan (08/15/2024 1:36 PM EST): See above. Applying for housing and need handicap access. Assessment & Plan (03/20/2024 3:51 PM EDT): Awaiting housing application, lives in abasement FU with [place]. Stage 3a chronic kidney disease 11/01/2023 Assessment [...] pseudophedrine short term. Will refer her to poultry processor again so she can be evaluated for [...] albuterol prn. Will refer her back to poultry processor. RUQ pain 10/05/2023 Assessment & Plan (11/01/2023 [...] inside the gastric body placed in [place] for bariatric procedure about 20 cm in [...] lumbar r egion 05/17/2017 Overview (09/17/2022): On AIR TRAFFIC CONTROL OPERATOR contract. discussed tapering percocet options, not interested.. Referred to HIM forms dept for handicap plackards documents. Referred to [facility] for polypharmacy education. Continue medications as prescribed. Discussed Narcan. Encouraged nonpharmacologic pain relief strategies. will f/up next visit Assessment & Plan (03/20/2024 3:48 PM EDT): On AIR TRAFFIC CONTROL OPERATOR contract. discussed tapering percocet options, not interested, it apparently offers partial enough improvement of sxs. Patient is aware that snf use of opiates can cause hyperalgesia, liver toxicity, ADVANCE SCOUT toxicity, increase anxiety, among others. Will continue to work with chronic pain management [facility] clinic. Continue medications as prescribed. Discussed [...] PRN for elevated BP readings.. Referred to [facility] for polypharmacy education. Continue medications [...] to enails with type 2 diabetes mellitus ([facility]) 05/17/2017 03/29/2024 Encounters Date Type Department Care Team Description 10/17/2024 Refill [facility] [address] [place] [address] Zeinab Sykes MD Neuropathy 10/09/2024 11:45 AM EDT Office Visit [facility] [address] [place] [address] Zeinab Sykes MD Moderate persistent asthma without complication (Primary Dx); Class 2 severe obesity with serious comorbidity and body mass index (BMI) of 35.0 to 35.9 in adult, unspecified obesity type ([facility]); Type 2 diabetes mellitus without complication, without long-term current use of insulin ([facility]); Essential hypertension; Arthritis; Vitamin D deficiency 10/09/2024 Travel 10/01/2024 Travel 09/28/2024 Refill [facility] [address] [place] [address] Zeinab Sykes MD Other intervertebral disc displacement, lumbar region 09/28/2024 Population Health Risk Score [facility] (C[facility]) Department [address] [place] [phone] Provider, Population Health Generic 09/25/2024 9:45 AM EDT Office Visit [facility] [address] [place] [address] Alma Jha FNP Lumbar back pain with radiculopathy affecting left lower extremity (Primary Dx); Long-term current use of opiate analgesic 09/25/2024 Travel 09/20/2024 Orders Only [facility] [address] [place] [address] Parag Torres MD 09/19/2024 Refill [facility] [address] [place] [address] Zeinab Sykes MD Left hand pain 08/31/2024 Refill [facility] [address] [place] [address] Zeinab Sykes MD Other intervertebral disc displacement, lumbar region 08/30/2024 Refill [facility] [address] [place] [address] Zeinab Sykes MD 08/29/2024 Refill [facility] [address] [place] [address] Oralia Aguila MD 08/27/2024 Telephone [facility] [address] [place] [address] Zeinab Sykes MD Results 08/21/2024 5:20 PM EST Office Visit [facility] [address] [place] [address] Yonathan Snider MD Subacute cough 08/21/2024 Travel 08/20/2024 Refill [facility] [address] [place] [address] Zeinab Sykes MD Type 2 diabetes mellitus without complication, without long-term current use of insulin ([facility]); Other intervertebral disc displacement, lumbar region 08/15/2024 10:15 AM EST Office Visit [facility] [address] [place] [phone] Zeinab Sykes MD Type 2 diabetes mellitus without complication, without long-term current use of insulin ([facility]) (Primary Dx); Essential hypertension; Postmenopause bleeding; Recurrent major depressive disorder, in partial remission ([facility]); Moderate persistent asthma with acute exacerbation; [place] (obstructive sleep apnea); Housing insecurity; Nasal congestion 08/15/2024 Travel 08/14/2024 Travel 08/10/[address] [address] Terra Mackey MA Chart prep 08/08/2024 5:20 PM EST Office Visit [facility] [address] [place] [phone] Lia Martinez NP Acute nasopharyngitis (Primary Dx); Flu-like symptoms 08/08/2024 3:00 PM EST Office Visit [facility] AD[facility] DENT[facility] [address] [place] [address] Watkins-Maynard, Gay, DDS Fracture of removable partial denture (Primary Dx) 08/03/2024 3:30 PM EST Office Visit [facility] [address] [place] [address] Watkins-Maynard, Gay, DDS Fracture of removable partial denture (Primary Dx) 08/03/[address] [address] Zeinab Sykes MD Other intervertebral disc displacement, lumbar region 08/03/2024 Patient Outreach [address] [address] Zeinab Sykes MD Pre-visit Planning ((Unable to reach for PVP screening, LVM)) 08/01/2024 Telephone [facility] [address] [place], [place] [phone] Zeinab Sykes MD Durable Medical Equipment (10 In 1 pillow/) 07/31/2024 9:45 AM EST Office Visit [address] [address] Alma hJa, NETWORKING TECHNICIAN Lumbar back pain with radiculopathy affecting left lower extremity (Primary Dx); Long-term current use of opiate analgesic 07/31/2024 Telephone [facility] [address] [place] [address] Alma Jha, NETWORKING TECHNICIAN AIR TRAFFIC CONTROL OPERATOR: Tier System 07/31/2024 Telephone [facility] [address] [place] [address] Scarlett Gibbs RN BPI Scoring 07/31/2024 Travel 07/30/2024 Refill [facility] [address] [place] [address] Zeinab Sykes MD from Last 3 Months [...] Description 10/23/2024 11:00 AM EDT Office Visit [facility] [address] [place] [address] 10/30/2024 3:30 PM EDT Office Visit [facility] [address] [place] [address] Gay Thompson, DDS [address] [place] [address] 11/16/2024 11:00 AM EDT Nutrition [facility] DIABET[facility]/NUTRITION [address] [place] [address] Juana Gusman, RD [address], [place] [phone] 01/10/2025 12:00 PM EDT Office Visit [facility] [address] [place] [address] Zeinab Sykes MD [address] [place], [place] [phone] Health Maintenance Due Date Last Done Comments CT Colonography 1959 Dental X-Ray: Bitewings 1959 Dental X-Ray: Full Mouth 1959 FIT DNA/Cologuard 1959 FIT 1959 FOBT 1960 Sigmoidoscopy 1959 Eye Exam 11/05/1969 Alcohol/Substance Use Screening 1971 Hepatitis A Vaccines (1 of 2 - Risk 2-dose series) 11/05/1978 Diabetes: Urine Protein Screening 03/08/2023 03/08/2022, 09/16/2020 Colonoscopy 2023 11/05/2020 Colorectal Cancer Screening 2023 Mammogram 03/15/2024 03/15/2022, 07/3 , 10/07/2020 COVID-19 Vaccine ( season) 2024 08/24/2022, [...] Armando, PharmD Note: Began medboxes. Goal achieved 5/5/23. Patient graduated from [facility]. Procedures Procedure Name Priority Date/Time Associated [...] complication, without long-term current use of insulin ([facility]) POCT GLUCOSE Routine 10/09/2024 11:58 AM EDT Type 2 diabetes mellitus without complication, without long-term current use of insulin ([facility]) POCT DIDIER-14 URINE DRUG SCREEN [...] complication, without long-term current use of insulin ([facility]) POCT RAPID COVID ANTIGEN Routine [...] EDT Narrative 10/16/2024 5:28 PM EDT ? [facility] ?[address] ?[place] [address] ?XRay Report ? Signed ? Patient: Gerry Mclaughlin,Rhonda ?MR# ?? : [id number] ? : 1960 ?Acct:[id number] ? Age/Sex: 63 / F ?ADM Date: 04/01/25 ? Loc: HO.ED ? Attending Dr: ? Ordering Physician: Lanette Laura PA-C ?? Date of Service: 10/16/24 ?? Procedure(s): XR wrist LT min 3V ?? Accession Number(s): [id number] ? cc: Zeinab Sykes MD; Lanette Laura [...] MD in OV> ? 10/16/247 ? DD/ 1726 ? TD/TT: 10/16/24 1726 ? Bonding Supervisor: ? Procedure Note Tioter, Image - 10/16/2024 [place] [address] XRay Report Signed Patient: Karla Fernández# : [id number] : 1960Acct:[id number] Age/Sex: 63 / FADM Date: 10/16/24 Loc: HO.ED Attending Dr: Ordering Physician: Lanette Laura PA-C Date of Service: 10/16/24 Procedure(s): XR wrist LT min 3V Accession Number(s): [id number] cc: Zeinab Sykes MD; Lanette Laura PA-C [...] Enedina Beltran MD in OV> 10/16/241726 DD/ 25 TD/TT: 10/16/241725 Bonding Supervisor: us [facility] External Provider IMG XR PROCEDURES Final Result * XR Hip left with Pelvis 1 view (10/16/2024 5:24 PM EDT) Anatomical Region Laterality Modality Lower Extremities, Hip Bilateral Radiograp hic Imaging 10/16/2024 5:24 PM EDT Narrative 10/16/2024 5:26 PM EDT ? [facility] ?[address] ?[place] [address] ?XRay Report ? Signed ? Patient: Gerry Mclaughlin,Rhonda ?MR# ?? : [id number] ? : 1960 ?Acct:[id number] ? Age/Sex: 63 / F ?ADM Date: 10/16/24 ? Loc: HO.ED ? Attending Dr: ? Ordering Physician: Lanette Laura PA-C ?? Date of Service: 10/16/24 ?? Procedure(s): XR hip LT w PEL1V ?? Accession Number(s): [id number] ? cc: Zeinab Sykes MD; Lanette Laura [...] DD/ 1724 ? TD/TT: 10/16/24 1724 ? Bonding Supervisor: ? Procedure Note Mary, Image - 10/16/[address] [address] XRay Report Signed Patient: Bertin FernándezMl# : [id number] : 1960Acct:[id number] Age/Sex: 63 / FADM Date: 10/16/24 Loc: HO.ED Attending Dr: Ordering Physician: Lanette Laura PA-C Date of Service: 10/16/24 Procedure(s): XR hip LT w PEL1V Accession Number(s): [id number] cc: Zeinab Sykes MD; Lanette Laura PA-C [...] MD in OV> 10/16/241724 DD/ 23 TD/TT: 10/16/241723 Bonding Supervisor: [employer] External Provider IMG XR PROCEDURES Final Result * XR Elbow 3+ Views Left (10/16/2024 5:23 PM EDT) Anatomical Region Laterality Modality Upper Extremities, Elbow Left Radiogr aphic Imaging 10/16/2024 5:23 PM EDT Narrative 10/16/2024 5:25 PM EDT ? [facility] ?[address] ?[place] [address] ?XRay Report ? Signed ? Patient: Gerry Mclaughlin,Rhonda ?MR# ?? : [id number] ? : 1960 ?Acct:[id number] ? Age/Sex: 63 / F ?ADM Date: 10/16/24 ? Loc: HO.ED ? Attending Dr: ? Ordering Physician: Lanette Laura PA-C ?? Date of Service: 10/16/24 ?? Procedure(s): XR elbow LT min 3V ?? Accession Number(s): [id number] ? cc: Zeinab Sykes MD; Lanette Laura [...] DD/ 1723 ? TD/TT: 10/16/24 1723 ? Bonding Supervisor: ? Procedure Note Donotsaludinterpreter, Image - 10/16/[address] [address] XRay Report Signed Patient: Spenser FernándezR# : [id number] : 1960Acct:[id number] Age/Sex: 63 / FADM Date: 10/16/24 Loc: HO.ED Attending Dr: Ordering Physician: Lanette Laura PA-C Date of Service: 10/16/24 Procedure(s): XR elbow LT min 3V Accession Number(s): [id number] cc: Zeinab Sykes MD; Lanette Laura PA-C [...] signed by Enedina Beltran MD in OV> 10/16/241723 DD/ 172 TD/TT: 10/16/24 172 Bonding Supervisor: us [facility] External Provider IMG XR PROCEDURES Final Result * CT Cervical Spine w/o Contrast (10/16/2024 5:18 PM EDT) Anatomical Region Laterality Modality Spine, C-spine Computed Tomogra phy 10/16/2024 5:18 PM EDT Narrative 10/16/2024 5:19 PM EDT ? [place] [facility] ?[address] ?[place] [address] ? CT Scan Report ? Signed ? Patient: Gerry Mclaughlin,Rhonda ?MR# ?? : [id number] ? : 1960 ?Acct:[id number] ? Age/Sex: 63 / F ?ADM Date: 10/16/24 ? Loc: HO.ED ? Attending Dr: ? Ordering Physician: Lanette Laura PA-C ?? Date of Service: 10/16/24 ?? Procedure(s): CT cervical spine wo IV con ?? Accession Number(s): [id number] ? cc: Zeinab Sykes MD; Lanette Laura PA-C ? Report Number: ?? [id number]: Total DLP = ??605.00 mGy-cm ? CLINICAL [...] in OV> ? 10/16/24 1719 ? DD/ 1718 ? TD/TT: 10/16/248 ? Bonding Supervisor: ? Procedure Note Carolina Hernandez - 10/16/[address] [address] [place] Scan Report Signed Patient: Tanmay FernándezSeun# : [id number] : 1960Acct:[id number] Age/Sex: 63 / FADM Date: 10/16/24 Loc: HO.ED Attending Dr: Ordering Physician: Lanette Laura PA-C Date of Service: 10/16/24 Procedure(s): CT cervical spine wo IV con Accession Number(s): [id number] cc: Zeinab Sykes MD; Lanette Laura PA-C Report Number: [id number]: Total DLP = 605.00 mGy-cm CLINICAL HISTORY: [...] in OV> 10/16/241718 DD/ 17 TD/TT: 10/16/241717 Bonding Supervisor: [employer] External Provider IMG CT PROCEDURES Final Result [...] procedure / Unknown 09/25/2024 11:35 AM EDT Scarlett Onofre RN - 09/25/2024 11:35 AM EDT UTOX cup Lot#[id number] Exp. 03/06/26 Internal Pass Control Alma Jha NETWORKING TECHNICIAN POINT OF CARE TEST ENTER/EDIT ORDERABLES Final Result * Creatinine, Serum (09/18/2024 3:57 PM EST) Creatinine, Serum 1.01 0.5 - 1.4 mg/dL [facility] Estimated Glomerular Filt Rate 55 [facility] Comment:Chronic Kidney Disea se: Estimated GFR < 60 mL/min/1.62w7Lzhwuk Kidney Disease: Estimated GFR < 15 mL/min/1.73m2 09/18/2024 3:57 PM EST 09/18/2024 3:57 PM EST Generic External Data Provider LAB BLOOD ORDERAB LES Final Result Performing Organization Address City/[facility]/ZIP Co de Phone Number [facility] [address] [place] [phone] * BUN (Blood Urea Nitrogen) (09/18/2024 3:57 PM EST) Urea Nitrogen (BUN) 13 9 - 16 mg/dL [facility] 09/18/2024 3:57 PM EST 09/18/2024 3:57 PM EST Generic External Data Provider LAB BLOOD ORDERAB LES Final Result Performing Organization Address City/[facility]/ZIP Co de Phone Number [facility] [address] [place] [phone] * Polysomnography (09/11/2024) us Zeinab Sykes MD [facility] ORDERABLES Final Result * XR Chest 2 Views (08/22/2024 3:53 PM EST) Anatomical Region Laterality Modality Chest Radiographic Celia ging 08/22/2024 3:53 PM EST Narrative 08/22/2024 4:30 PM EST ?[facility] ?[address] ?[place] [address] ?XRay Report ? Signed ? Patient: Rhonda Fernández ?MR# ?? : [id number] ? : 1960 ?Acct:[id number] ? Age/Sex: 63 / F ?ADM Date: 08/22/24 ? Loc: HO.HHCX ? Attending Dr: Yonathan Snider MD ? Ordering Physician: Yonathan Snider MD ?? Date of Service: 08/22/24 ?? Procedure(s): XR chest 2V ?? Accession Number(s): [id number] ? cc: Yonathan Snider MD ? EXAMINATION: [...] process seen. ? Electronically signed by: ??Sanjeev Tran MD ??08/22/2024 04:27 PM EST RP ? Dictated By: ?Tran,Sanjeev S MD ? Signed By: ?<Electronically signed by Sanjeev S Tran, MD in OV> ?08/22/24 1627 ? DD/ 1553 ? TD/TT: 08/22/24 1600 ? Bonding Supervisor: MSM ? Procedure Note Mary, Image - 08/22/2024 [facility] [address] [place] [address] XRay Report Signed Patient: Karla Fernández# : [id number] : 1960Acct:[id number] Age/Sex: 63 / FADM Date: 08/22/24 Loc: HO.HHCX Attending Dr: Yonathan Sndier MD Ordering Physician: Yonathan Snider MD Date of Service: 08/22/24 Procedure(s): XR chest 2V Accession Number(s): [id number] cc: Yonathan Snider MD EXAMINATION: XR CHEST [...] 08/22/24 1627 DD/ 1553 TD/TT: 08/22/24 1600 Bonding Supervisor: [facility] Yonathan Snider MD IMG XR PROCEDURES Edited Result - Final * Influenza B (ID NOW Rapid Molecular) (08/21/2024 5:37 PM EST) Only the most recent of3 resultswithin the time period is included. Influenza B Negative Negative, Indeterminate [facility] Swab 08/21/2024 5:37 PM EST Yonathan Snider MD POINT OF CARE TEST ENTER/EDIT OR DERABLES Final Result [facility] [address] [place] [phone] * Influenza A (ID NOW Rapid Molecular) (08/21/2024 5:37 PM EST) Only the most recent of3 resultswithin the time period is included. [facility] Influenza A Negative Negative, Indeterminate [facility] Swab 08/21/2024 5:37 PM EST us Yonathan Snider MD POINT OF CARE TEST ENTER/EDIT OR DERABLES Final Result [facility] [address] [place] [address] [phone] * POCT Rapid COVID Ag (08/21/2024 5:10 PM EST) Only the most recent of3 resultswithin the time period is included. [facility] Rapid COVID Ag Negative Swab 08/21/2024 5:10 PM EST Yonathan Snider MD POINT OF CARE TEST ENTER/EDIT OR DERABLES Final Result * (ABNORMAL) Respiratory Viral Panel PCR (08/21/2024 2:25 PM EST) [facility] Adenovirus PCR Not Detected Not Detect. [facility] Bordetella pertussis PCR Not Detected Not Detect. [facility] Comment:Interpret results wi th caution. If B. pertussis isspecifically suspected, additional testing using analternate method is recommended. Bordetella parapertussis PCR Not Detected Not Detect. [facility] Chlamydia pneumoniae PCR Not Detected Not Detect. [facility] Coronavirus 229E PCR Not Detected Not Detect. [facility] Coronavirus HKU1 PCR Not Detected Not Detect. [facility] Coronavirus NL63 PCR Not Detected Not Detect. [facility] Coronavirus OC43 PCR Detected(A) Not Detect. [facility] SARS-CoV-2 PCR Not Detected Not Detect. [facility] Comment:SARS-CoV-2 not detec jocelyn by real-time RT-PCR.Note: If clinical suspicion for Sars-CoV-2 is high, continueto maintain precautions and consider repeat testing.Test results should be interpreted in the context ofclinical findings and other laboratory data.Rare polymorphisms exist that could lead to false-negativeor false-positive results. If results do not match theclinical findings, additional testing should be considered.Results reported to [facility].This test has been authorized by the FDA under the EmergencyUse Authorization (EUA) for use by authorized laboratories. Influenza A PCR Not Detected Not Detect. [facility] Influenza B PCR Not Detected Not Detect. [facility] Human metapneumovirus PCR Not Detected Not Detect. [facility] Rhino/Enterovirus PCR Not Detected Not Detect. [facility] Mycoplasma pneumoniae PCR Not Detected Not Detect. [facility] Parainfluenza 1 PCR Not Detected Not Detect. [facility] Parainfluenza 2 PCR Not Detected Not Detect. [facility] Parainfluenza 3 PCR Not Detected Not Detect. [facility] Parainfluenza 4 PCR Not Detected Not Detect. [facility] RSV PCR Not Detected Not Detect. [facility] Resp Panel NA Note See Note H [facility] Comment:All results must be [...] assay is performed by Multiplexed PCR, utilizing [employer] Film Array. 08/21/2024 2:25 PM EST 08/22/2024 2:39 PM EST us Yonathan Snider MD LAB BLOOD ORDERABLES Final Resul t [facility] [address] [place] [address] [phone] * POCT Rapid RSV JI ID NOW (08/08/2024 5:54 PM EST) RSV Rapid Ag POC Negative Negative [facility] Swab 08/08/2024 5:54 PM EST Lia Juan RAMAN POINT OF CARE TEST ENTER/EDIT O RDERABLES Final Result [facility] [address] [place] [phone] [phone] * Pap Smear (06/01/2024 2:43 PM EST) 06/01/2024 2:43 PM EST 06/04/2024 9:25 AM EST Narrative [facility] - 06/20/2024 7:51 AM EST ----- ------- Name: Rhonda Fernández ? Age/Sex: 63/F ? : 1960 Unit#: [id number] ?? Attend Dr: Aisha Mcclain CNM ?Re06/01/24 ?Status: DEP REF ? Location: HO.LNP ?Disch: ? ----- ------- SPEC : [id number] ?RECD: 06/04/24 ? STATUS: ??SOUT ? REQ NUM: [id number] ? DARWIN: 06/01/24-018 ? SUBM DR: Aisha Mcclain CNM ? ENTERED: ??06/04/24 ?SP TYPE: Pap Smr ?OTHR DR: Zeinab [...] Copies To: ?? Zeinab Sykes MD ?? [facility] ?? [address] ?? [place] [address] ?? [phone] ?? Aisha Mcclain CNM ?? [facility] ?? [address] [facility] [address] ?? [place] [id number] ?? [phone] ----- ------- Signed (signature on file) INDERJIT Bloom ([facility]) 06/20/24 0751 ? ----- ------- ? END OF REPORT ? us Generic External Data Provider LAB CYTOLOGY JERED STAFFORD Final Result [facility] [address] [place] [phone] * (ABNORMAL) Lipid Panel with Reflex to Direct LDL (01/06/2024 12:38 PM EDT) Triglycerides 91 <150 mg/dL [facility] Comment:Desirable Triglyceri de: less than 150 mg/dLBorderline High Triglyceride 150-199 mg/dLHigh Triglyceride: 200-499 mg/dLVery High Triglyceride: greater than or equal to 5OO mg/dL Cholesterol 211(H) <200 mg/dL [facility] Comment:Desirable Cholestero l: less than 200 mg/dLBorderline High Cholesterol: 200-239 mg/dLHigh Cholesterol: greater than 239 mg/dL LDL Cholesterol Calculated 132(H) <100 mg/dL [facility] Comment:Desirable LDL: less than 100 mg/dLNear Optimal/Above Optimal LDL: 110- 129 mg/dLBorderline High LDL: 130-159 mg/dLHigh LDL: 160-189 mg/dLVery High LDL: greater than or equal to 190 mg/dL HDL Cholesterol 61 >40 mg/dL [facility] Comment:Desirable HDL: great er than 40 mg/dL Note: This HDL assay may give artificially low results in patients with liver disease. Blood 01/06/2024 12:3 8 PM EDT 01/06/2024 4:21 PM EDT Zeinab Sykes MD LAB BLOOD ORDERABLES Fin al Result Performing Organization Address [facility] Co de Phone Number [facility] [address] [place] [phone] * Hepatitis Panel, General (01/06/2024 12:38 PM EDT) Pathologist [facility] Hepatitis A IgM Nonreactive Nonreactive [facility] Comment:IgM antibodies to GUERIN V not detected; does not exclude earlyacute or recovered HAV infection. ~Hepatitis B Surface Antibody REACTIVE Nonreactive [facility] Comment:REACTIVE: > 11.99 mI U/mL Hepatitis B Core Antibody Nonreactive Nonreactive [facility] Hepatitis C Antibody Nonreactive Nonreactive [facility] Comment:Antibodies to HCV no t detected; does not exclude early acuteHCV infection. Hepatitis B Surface Ag Negative Negative [facility] Blood 01/06/2024 12:3 8 PM EDT 01/06/2024 4:21 PM EDT Zeinab Sykes MD LAB BLOOD ORDERABLES Fin al Result Performing Organization Address [facility] Co de Phone Number [facility] [address] [place] [phone] * HIV-1/2 Antigen and Antibodies, Fourth Generation, with Reflexes (01/06/2024 12:38 PM EDT) HIV AB/AG Nonreactive Nonreactive [facility] Comment:HIV-1 p24 Ag and/or HIV-1/HIV-2 Ab not detected.A test result that is nonreactive does not exclude thepossibility of exposure to or infection with HIV-1 and/orHIV-2. Nonreactive results in this assay for individualswith prior exposure to HIV-1 and/or HIV-2 may be due toantigen and antibody levels that are below the limit ofdetection of this assay.The [employer]. HIV Ag/Ab Combo assay result andsupplemental assay results should be interpreted inconjunction with the patient's clinical presentation,history and other laboratory results. If the results areinconsistent with clinical evidence, additional testing issuggested to confirm the result. Blood Venous blood specimen / Unknown 01/06/2024 12:38 PM EDT 01/06/2024 4:21 PM EDT us Zeinab Sykes MD LAB BLOOD ORDERABLES Fin al Result [facility] [address] [place] [phone] * Mammography Report 1 (03/15/2022 5:00 PM EDT) Anatomical Region Laterality Modality Breast Bilateral Mammography 03/15/2022 5:00 PM EDT Narrative 03/16/2022 8:33 AM EDT Refer to the Notes tab for result details [facility] Procedure: Mammography Report 1 Procedure Note ProviderParag MD - 10/10/2022 Refer to the Notes tab for result details [facility] Procedure: Mammography Report 1 us Evelyn Ledesma NETWORKING TECHNICIAN IMG BI PROCEDURES Final Re sult * ALBUMIN, RANDOM URINE W/CREATININE (03/08/2022 3:04 PM EDT) Microalbumin Urine 1.2 See Note: mg/dL [facility] Comment: Reference Range: ?? [...] Urine 244 20 - 275 mg/dL [facility] 03/08/2022 3:04 PM EDT Rebekah Guevara NP LAB URINE ORDERABLES Final Res ult Performing Organization Address [facility] Phone Number [facility] [address] * Hm Colonoscopy (11/05/2020 11:36 AM EDT) Historical Provider HEALTH MAINTENANCE Final Result * HPV mRNA E6/E7 (07/07/2020 12:00 AM EST) HPV nRNA E6/E7 Not Detected Not Detected [facility] Comment: This test was performed using the APTIMA HPV Assay ([employer] This assay detects E6/E7 viral messenger RNA (mRNA) from 14 high-risk HPV types (16,18,31,33,35,39,45,51,52,56,58,59,66,68). ?? The analytical performance characteristics of this assay have been determined by [facility]. The modifications have not been cleared or approved by the FDA. This assay has been validated pursuant to the CLIA regulations and is used for clinical purposes. 07/07/2020 Historical Provider LAB BLOOD ORDERABLES Sera l Result Performing Organization Address [facility] de Phone Number [facility] [address] from Last 3 Months or Most Recently Relevant to Health Maintenance Insurance [place] [facility] [place] MEDICAID STAND ADULT Care Teams Account Support Rep Relationship Specialty Start Date End Date Zeinab Sykes MD [address] [place] [address] PCP - General Internal Medicine 01/02/24 Tomeka Martins Clay ThrowerSuperintendent Landfill Operations 10/27/23
--- OUTSIDE RECORDS SUMMARY | 2024-10-18 14:13 | XMS_ITS | Encounter Summary ---
Author Organization [employer] [facility] Address [address] [place] [address] 7t [place] [address] Care Team Providers Care Member Of The Legislative Council Name Role Phone Evelyn Ledesma Primary Care Provider [phone] Oralia Aguila MD Primary Care Provider [phone] Zeinab Sykes MD Primary Care Provider + Reason for Visit * Reason Onset Date Comments Appointment Request 12/20/2022 Encounter Details Date Type Department Care Team (Late st Contact Info) Description 12/20/2022 Telephone [facility] [address] [place] [address] Evelyn Ledesma FNP [address] [place] [address] Dept [place] [address] Appointment Request Social History Tobacco Use Types [...] an earlier day) Please contact pt at [phone] documented in this encounter Plan of Treatment Upcoming Encounters Date Type Department Care Team (Late st Contact Info) Description 10/23/2024 11:00 AM EDT Office Visit [facility] [address] [place] [address] 10/30/2024 3:30 PM EDT Office Visit [facility] ADULT DENTAL [address] [place] [address] Gay Thompson, DDS [address] [place] [address] 11/16/2024 11:00 AM EDT Nutrition [facility] DIABETES/NUTRITION [address] [place] [address] Juana Gusman, MONICA [address] [place] [address] 01/10/2025 12:00 PM EDT Office Visit [facility] MEDICINE [address] [place] [address] Zeinab Sykes MD [address] [place] [address] documented as of this encounter Goals Goal Patient Goal Type Associated Problems Recent Progress Patient-Stated? Author Patient will manage their medication General On track( 023 11:18 AM EDT) Citlali Ocampo PharmD Note: Began medboxes. Goal achieved 11/19/22. Patient graduated from [facility]. documented as of this encounter Visit Diagnoses Not on filedocumented in this encounter Care Teams Member Of The Legislative Council Relationship Specialty Start Date End Date Evelyn Ledesma FNP PCP - General Family Medicine 03/15/22 04/25/23 Oralia Aguila MD [address] [place] [address] PCP - General Family Medicine 04/26/23 01/01/24 Zeinab Sykes MD [address] [place] [address] PCP - General Internal Medicine 01/02/24 Tomeka Martins Farm Implement Engine MechanicIce Bag Assembler 10/27/23 documented as of this encounter
--- OUTSIDE RECORDS SUMMARY | 2024-10-18 14:13 | XMS_ITS | Encounter Summary ---
Author Organization [facility], Address [address] [place] [address] Phone Care Team Providers Care Box Office Manager Name Role Phone Evelyn Rodriguze Primary Care Provider Silvana vailable Encounter Details Date Type Department Care Team (Late st Contact Info) Description 02/18/2023 Documentation Only [facility], [address] [place] [address] Xiao Sheppard [address] [place] [address] Social History Tobacco Use Types [...] filedocumented in this encounter Care Teams Box Office Manager Relationship Specialty Start Date End Date Evelyn Rodriguez FNP PCP - General 02/18/23 documented as of this encounter
--- OUTSIDE RECORDS SUMMARY | 2024-10-18 14:13 | XMS_ITS | Encounter Summary ---
Author Organization [employer] Address [address] [facility] 7t [place] [address] Care Team Providers Care Ndt Inspector Name Role Phone Evelyn Ledesma Primary Care Provider [phone] Oralia Aguila MD Primary Care Provider [phone] Zeinab Sykes MD Primary Care Provider + Reason for Visit * Reason Onset Date Comments case from lab 11/04/2022 Encounter Details Date Type Department Care Team (Late st Contact Info) Description 11/04/2022 Telephone [facility] ADULT DENTAL [address] [place] [address] Asad Shore DDS [address] [place] [address] case from lab Social History Tobacco Use [...] Description 10/23/2024 11:00 AM EDT Office Visit [facility] MED[facility]INE [address] [place] [address] 10/30/2024 3:30 PM EDT Office Visit [facility] ADULT DENTAL [address] [place] [address] Watkins-Maynard, Gay, DDS [address] [place] [address] 11/16/2024 11:00 AM EDT Nutrition [facility] DIABETES/NUTRITION [address] [place] [address] Uzma, Juana, RD [address] [place] [address] 01/10/2025 12:00 PM EDT Office Visit [facility] MEDICINE [address] [place] [address] Zeinab Sykes MD 230 [place] [address] documented as of this encounter Visit Diagnoses Not on filedocumented in this encounter Care Teams Ndt Inspector Relationship Specialty Start Date End Date Evelyn Ledesma FNP PCP - General Family Medicine 03/15/22 04/25/23 Oralia Aguila MD [address] [place] [address] PCP - General Family Medicine 04/26/23 01/01/24 Zeinab Sykes MD [address] [place] [address] PCP - General Internal Medicine 01/02/24 Tomeka Martins Global Marketing Operations ManagerRn International 10/27/23 documented as of this encounter
--- OUTSIDE RECORDS SUMMARY | 2024-10-18 14:13 | XMS_ITS | Encounter Summary ---
Author Organization [employer] Address [address] [facility] 7t [place] [address] Care Team Providers Care Choral Director Name Role Phone Zeinab Sykes MD Primary Care Provider + Reason for Visit * Reason Comments Med Refill Encounter Details Date Type Department Care Team ([facility] st Contact Info) Description 05/04/2024 Refill [facility] [address] [place], [place] [phone] Zeinab Sykes MD [address] [place] [address] Other intervertebral disc displacement, lumbar region Social [...] 10/23/2024 11:00 AM EDT Office Visit [facility] MEDICINE [address] [place] [address] 10/30/2024 3:30 PM EDT Office Visit [facility] ADULT DENTAL [address] [place] [address] Watkins-Maynard, Gay, DDS [address] [place] [address] 11/16/2024 11:00 AM EDT Nutrition [facility] DIABETES/NUTRITION [address] [place] [address] Juana Gusman, MONICA [address] [place] [address] 01/10/2025 12:00 PM EDT Office Visit [facility] MEDICINE [address] [place] [address] Zeinab Sykes MD [address] [place] [address] documented as of this encounter Goals Goal [...] documented as of this encounter Care Teams Choral Director Relationship Specialty Start Date End Date Zeinab Sykes MD [address] [place] [address] PCP - General Internal Medicine 01/02/24 Tomeka Martins Heavy Coil WinderDredge Master 10/27/23 documented as of this encounter
--- OUTSIDE RECORDS SUMMARY | 2024-10-18 14:13 | XMS_ITS | Encounter Summary ---
Author Organization [employer] Address [address] [place] [address] 7t [place] [address] Care Team Providers Care Sole Trimmer Name Role Phone Evelyn Ledesma Primary Care Provider [phone] Oralia Aguila MD Primary Care Provider [phone] Zeinab Sykes MD Primary Care Provider + Reason for Visit * Reason Onset Date Comments medical clearance 02/11/2023 Encounter Details Date Type Department Care Team (Late st Contact Info) Description 02/11/2023 Telephone [facility] ADULT DENTAL [address] [place] [address] Asad Shore DDS [address] [place] [address] medical clearance Social History Tobacco Use Types [...] Description 10/23/2024 11:00 AM EDT Office Visit [facility] MEDICINE [address] [place] [address] 10/30/2024 3:30 PM EDT Office Visit [facility] ADULT DENTAL [address] [place] [address] Watkins-Maynard, Gay, DDS [address] [place] [address] 11/16/2024 11:00 AM EDT Nutrition [facility] DIABETES/NUTRITION [address] [place] [address] Juana Gusman, RD [address] [place] [address] 01/10/2025 12:00 PM EDT Office Visit [facility] MEDICINE [address] [place] [address] Zeinab Sykes MD [address] [place] [address] documented as of this encounter Goals Goal Patient Goal Type Associated Problems Recent Progress Patient-Stated? Author Patient will manage their medication General On track( 023 11:18 AM EDT) No Citlali Armando, Anoop Note: Began medboxes. Goal achieved 11/19/22. Patient graduated from [facility]. documented as of this encounter Visit Diagnoses Not on filedocumented in this encounter Care Teams Sole Trimmer Relationship Specialty Start Date End Date Evelyn Ledesma FNP PCP - General Family Medicine 03/15/22 04/25/23 Oralia Aguila MD [address] [place] [address] PCP - General Family Medicine 04/26/23 01/01/24 Zeinab Sykes MD [address] [place] [address] DANIEL Garrison [address] PCP - General Internal Medicine 01/02/24 Tomeka Martins Truck Driver SalespersonPhotographic Aide 10/27/23 documented as of this encounter
--- OUTSIDE RECORDS SUMMARY | 2024-10-18 14:13 | XMS_ITS | Encounter Summary ---
Author Organization [employer] [facility] Address [address] [place] [address] 7t [place] [address] Care Team Providers Care Kinesiologist Name Role Phone Evelyn Ledesma Primary Care Provider [phone] Oralia Aguila MD Primary Care Provider [phone] Zeinab Sykes MD Primary Care Provider + Encounter Details Date Type Department Care Team (Late Contact Info) Description 08/20/2022 Orders Only [facility] [address] [place] [address] Karen Henderson FNP Social History Tobacco Use [...] Description 10/23/2024 11:00 AM EDT Office Visit [facility] [address] [place] [address] [phone] 10/30/2024 3:30 PM EDT Office Visit [facility] ADULT DENTAL [address] [place] [address] Watkins-Maynard, Gay, DDS [address] [place] [address] 11/16/2024 11:00 AM EDT Nutrition [facility] DIABETES/NUTRITION [address] [place] [address] Juana Gusman, RD [address] [place] [address] 01/10/2025 12:00 PM EDT Office Visit [facility] [address] [place] [address] Zeinab Sykes MD [address] [place] [address] documented as of this encounter Visit Diagnoses Not on filedocumented in this encounter Care Teams Kinesiologist Relationship Specialty Start Date End Date Evelyn Ledesma FNP PCP - General Family Medicine 03/15/22 04/25/23 Oralia Aguila MD [address] [place] [address] PCP - General Family Medicine 04/26/23 01/01/24 Zeinab Sykes MD [address] [place] [address] PCP - General Internal Medicine 01/02/24 Tomeka Martins Manager TelemarketingCritical Care Technician 10/27/23 documented as of this encounter
--- OUTSIDE RECORDS SUMMARY | 2024-10-18 14:13 | XMS_ITS | Encounter Summary ---
Author Organization [employer] [facility] Address [address] [facility] 7t [place] [address] Care Team Providers Care Paper Cone Machine Tender Name Role Phone Evelyn Ledesma Primary Care Provider [phone] Oralia Aguila MD Primary Care Provider [phone] Zeinab Sykes MD Primary Care Provider + Encounter Details Date Type Department Care Team ([facility] Contact Info) Description 10/22/2022 Orders Only [facility] MEDICINE [address] [place] [address] Evelyn Ledesma FNP [address] [place] [address] Dept [place] [address] Social History Tobacco Use Types Packs/Day Years [...] Upcoming Encounters Date Type Department Care Team ([facility] Contact Info) Description 10/23/2024 11:00 AM EDT Office Visit [facility] [address] [place] [address] 10/30/2024 3:30 PM EDT Office Visit [facility] ADULT DENTAL [address] [place] [address] Watkins-Maynard, Gay, DDS [address] [place] [address] 11/16/2024 11:00 AM EDT Nutrition [facility] DIABETES/NUTRITION [address] [place] [address] Czepiel, Juana, RD [address] [place] [address] 01/10/2025 12:00 PM EDT Office Visit [facility] MEDICINE [address] [place] [address] Zeinab Sykes MD [address] [place] [address] documented as of this encounter Visit Diagnoses Not on filedocumented in this encounter Care Teams Paper Cone Machine Tender Relationship Specialty Start Date End Date Evelyn Ledesma FNP PCP - General Family Medicine 03/15/22 04/25/23 Oralia Aguila MD [address] [place] [address] PCP - General Family Medicine 04/26/23 01/01/24 Zeinab Sykes MD [address] [place] [address] PCP - General Internal Medicine 01/02/24 Tomeka Martins Duct Layer HelperMachine Tool Builder 10/27/23 documented as of this encounter
--- OUTSIDE RECORDS SUMMARY | 2024-10-18 14:13 | XMS_ITS | Encounter Summary ---
Author Organization [employer] [facility] Address [address] [place] [address] 7 [place] [address] Care Team Providers Care Clinic Specialist Name Role Phone Evelyn Ledesma Primary Care Provider [phone] Oralia Aguila MD Primary Care Provider [phone] Zeinab Sykes MD Primary Care Provider + Reason for Visit * Reason Onset Date Comments Referral 02/03/2023 Renewal Encounter Details Date Type Department Care Team (Late st Contact Info) Description 02/03/2023 Telephone [facility] MEDICINE [address] [place] [address] Evelyn Ledesma FNP [address] [place] [address] Dept [place] [address] Referral (Renewal ) Social History Tobacco Use [...] Office Visit [facility] MEDICINE [address] [place] [address] 10/30/2024 3:30 PM EDT Office Visit [facility] ADULT DENTAL [address] [place] [address] Roland-Gay Maynard, DDS [address] [place] [address] 11/16/2024 11:00 AM EDT Nutrition [facility] DIABETES/NUTRITION [address] [place] [address] Juana Gusman, MONICA [address] [place] [address] 01/10/2025 12:00 PM EDT Office Visit [facility] MEDICINE [address] [place] [address] Zeinab Sykes MD [address] [place] [address] documented as of this encounter Goals Goal Patient Goal Type Associated Problems Recent Progress Patient-Stated? Author Patient will manage their medication General On track( 023 11:18 AM EDT) Citlali Ocampo, PharmD Note: Began medboxes. Goal achieved 11/19/22. Patient graduated from [facility]. documented as of this encounter Visit Diagnoses Not on filedocumented in this encounter Care Teams Clinic Specialist Relationship Specialty Start Date End Date Evelyn Ledesma FNP PCP - General Family Medicine 03/15/22 04/25/23 Oralia Aguila MD [address] [place] [address] PCP - General Family Medicine 04/26/23 01/01/24 Zeinab Sykes MD [address] [place] [address] PCP - General Internal Medicine 01/02/24 Tomeka Martins Robotics Testing TechnicianRock Wool Insulator 10/27/23 documented as of this encounter
--- OUTSIDE RECORDS SUMMARY | 2024-10-18 14:13 | XMS_ITS | Encounter Summary ---
Author Organization [employer] [facility] Address [address] [place] [address] 7t [place] [address] Care Team Providers Care Tool Repairer Name Role Phone Evelyn Ledesma Primary Care Provider [phone] Oralia Aguila MD Primary Care Provider [phone] Zeinab Sykes MD Primary Care Provider + Reason for Visit * Reason Onset Date Comments Prior Authorization 12/28/2022 Encounter Details Date Type Department Care Team (Late st Contact Info) Description 12/28/2022 Telephone [facility] MED[facility]INE [address] [place] [address] Evelyn Ledesma FNP [address] [place] [address] Dept [place] [address] Prior Authorization Social History Tobacco Use Types [...] AM EDT T/C placed to pt via [facility] Zeinab #[id number]. Advised of message from pcp re: lab [...] all other NSAIDS. Do you have a software integrator yet? If not, your PCP would like [...] 12/28/2022 10:18 AM EDT THOMAS Emery from [employer] requesting XL pull ups and disposable under pads . States faxed request couple days ago and have not gotten a response . Informs paper work 12/29/22. Please call to clarify at phone # [phone] . documented in this encounter Plan of Treatment Upcoming Encounters Date Type Department Care Team (Late st Contact Info) Description 10/23/2024 11:00 AM EDT Office Visit [facility] [address] [place] [address] 10/30/2024 3:30 PM EDT Office Visit [facility] ADULT DENTAL [address] [place] [address] Watkins-Maynard, Gay, DDS [address] [place] [address] 11/16/2024 11:00 AM EDT Nutrition [facility] DIABETES/NUTRITION [address] [place] [address] Juana Gusman, RD [address] [place] [address] 01/10/2025 12:00 PM EDT Office Visit [facility] MEDICINE [address] [place], [place] [phone] Zeinab Sykes MD [address] [place] [address] documented as of this encounter Goals Goal Patient Goal Type Associated Problems Recent Progress Patient-Stated? Author Patient will manage their medication General On track( 023 11:18 AM EDT) Citlali Ocampo, Anoop Note: Began medboxes. Goal achieved 11/19/22. Patient graduated from [facility]. documented as of this encounter Visit Diagnoses Not on filedocumented in this encounter Care Teams Tool Repairer Relationship Specialty Start Date End Date Evelyn Ledesma FNP PCP - General Family Medicine 03/15/22 04/25/23 Oralia Aguila MD [address] [place] [address] PCP - General Family Medicine 04/26/23 01/01/24 Zeinab Sykes MD [address] [place] [address] PCP - General Internal Medicine 01/02/24 Tomeka Martins Import Customs Clearing AgentLoan Assistant 10/27/23 documented as of this encounter
--- OUTSIDE RECORDS SUMMARY | 2024-10-18 14:13 | XMS_ITS | Encounter Summary ---
Author Organization [employer] Address [address] [facility] 7t [place] [address] Care Team Providers Care Probation And Patrol Agent Name Role Phone Zeinab Sykes MD Primary Care Provider + Encounter Details Date Type Department Care Team ([facility] st Contact Info) Description 09/20/2024 Orders Only [facility] CHC MED & PEDS [address] [place], [place] [phone] ProviderParag MD Social History Tobacco Use Types [...] Description 10/23/2024 11:00 AM EDT Office Visit [facility] MEDICINE [address] [place] [address] 10/30/2024 3:30 PM EDT Office Visit [facility] ADULT DENTAL [address] [place] [address] Roland-Gay Maynard, DDS [address] [place] [address] 11/16/2024 11:00 AM EDT Nutrition [facility] DIABETES/NUTRITION 230 [place] [address] Juana Gusman, RD 230 [place] [address] 01/10/2025 12:00 PM EDT Office Visit [facility] MEDICINE [address] [place] [address] Zeinab Sykes MD 230 [place] [address] documented as of this encounter Goals Goal Patient Goal Type Associated Problems Recent Progress Patient-Stated? Author Patient will manage their medication General On track( 023 11:18 AM EDT) Citlali Ocampo, Anoop Note: Began medboxes. Goal achieved 11/19/22. Patient graduated from [facility]. documented as of this encounter Procedures Procedure [...] EDT Narrative 10/16/2024 5:28 PM EDT ? [facility] ?[address] ?[place] [address] ?XRay Report ? Signed ? Patient: Rhonda Fernández ?MR# ?? : [id number] ? : 1960 ?Acct:[id number] ? Age/Sex: 63 / F ?ADM Date: 10/16/24 ? Loc: HO.ED ? Attending Dr: ? Ordering Physician: Lanette Laura PA-C ?? Date of Service: 10/16/24 ?? Procedure(s): XR wrist LT min 3V ?? Accession Number(s): [id number] ? cc: Zeinab Sykes MD; Lanette Laura [...] 10/16/247 ? DD/ ? TD/TT: 10/16/246 ? Ludlow Machine Operator: ? Procedure Note Donzacter, Image - 10/16/[address] [address] XRay Report Signed Patient: Spenser FernándezR# : [id number] : 1960Acct:[id number] Age/Sex: 63 / FADM Date: 10/16/24 Loc: HO.ED Attending Dr: Ordering Physician: Lanette Laura PA-C Date of Service: 10/16/24 Procedure(s): XR wrist LT min 3V Accession Number(s): [id number] cc: Zeinab Sykes MD; Lanette Laura PA-C [...] OV> 10/16/241726 DD/ 172 TD/TT: 10/16/24 172 Ludlow Machine Operator: us [facility] External Provider IMG XR PROCEDURES Final Result * XR Hip left with Pelvis 1 view (10/16/2024 5:24 PM EDT) Anatomical Region Laterality Modality Lower Extremities, Hip Bilateral Radiograp hic Imaging 10/16/2024 5:24 PM EDT Narrative 10/16/2024 5:26 PM EDT ? [facility] ?[address] ?[place] [address] ?XRay Report ? Signed ? Patient: Gerry Mclaughlin,Rhonda ?MR# ?? : [id number] ? : 1960 ?Acct:[id number] ? Age/Sex: 63 / F ?ADM Date: 04/01/25 ? Loc: HO.ED ? Attending Dr: ? Ordering Physician: Lanette Laura PA-C ?? Date of Service: 10/16/24 ?? Procedure(s): XR hip LT w PEL1V ?? Accession Number(s): [id number] ? cc: Zeinab Sykes MD; Lanette Laura [...] DD/ 1724 ? TD/TT: 10/16/24 1724 ? Ludlow Machine Operator: ? Procedure Note Donzacter, Image - 10/16/[address] [address] XRay Report Signed Patient: Karla Fernández# : [id number] : 1960Acct:[id number] Age/Sex: 63 / FADM Date: 10/16/24 Loc: HO.ED Attending Dr: Ordering Physician: Lanette Laura PA-C Date of Service: 10/16/24 Procedure(s): XR hip LT w PEL1V Accession Number(s): [id number] cc: Zeinab Sykes MD; Lanette Laura PA-C [...] OV> 10/16/241724 DD/ 23 TD/TT: 04/01/25 1724 Ludlow Machine Operator: us [facility] External Provider IMG XR PROCEDURES Final Result * XR Elbow 3+ Views Left (10/16/2024 5:23 PM EDT) Anatomical Region Laterality Modality Upper Extremities, Elbow Left Radiogr aphic Imaging 10/16/2024 5:23 PM EDT Narrative 10/16/2024 5:25 PM EDT ? [facility] ?[address] ?[place], [place] [address] ?XRay Report ? Signed ? Patient: Gerry Mclaughlin,Rhonda ?MR# ?? : [id number] ? : 1960 ?Acct:[id number] ? Age/Sex: 63 / F ?ADM Date: 10/16/24 ? Loc: HO.ED ? Attending Dr: ? Ordering Physician: Lanette Laura PA-C ?? Date of Service: 10/16/24 ?? Procedure(s): XR elbow LT min 3V ?? Accession Number(s): [id number] ? cc: Zeinab Sykes MD; Lanette Laura [...] DD/ 172 ? TD/TT: 10/16/24 1723 ? Ludlow Machine Operator: ? Procedure Note Carolina Hernandez - 10/16/[address] [address] XRay Report Signed Patient: Spenser FernándezEyad# : [id number] : 1960Acct:[id number] Age/Sex: 63 / FADM Date: 10/16/24 Loc: HO.ED Attending Dr: Ordering Physician: Lanette Laura PA-C Date of Service: 10/16/24 Procedure(s): XR elbow LT min 3V Accession Number(s): [id number] cc: Zeinab Sykes MD; Lanette Laura PA-C [...] 10/16/24 1724 DD/ 1723 TD/TT: 10/16/24 1723 Ludlow Machine Operator: [facility] External Provider IMG XR PROCEDURES Final Result * CT Cervical Spine w/o Contrast (10/16/2024 5:18 PM EDT) Anatomical Region Laterality Modality Spine, C-spine Computed Tomogra phy 10/16/2024 5:18 PM EDT Narrative 10/16/2024 5:19 PM EDT ? [facility] ?[address] ?[place] [address] ? CT Scan Report ? Signed ? Patient: Gerry Mclaughlin,Rhonda ?MR# ?? : [id number] ? : 1960 ?Acct:[id number] ? Age/Sex: 63 / F ?ADM Date: 04//25 ? Loc: HO.ED ? Attending Dr: ? Ordering Physician: Lanette Laura PA-C ?? Date of Service: 10/16/24 ?? Procedure(s): CT cervical spine wo IV con ?? Accession Number(s): [id number] ? cc: Zeinab Sykes MD; Lanette Laura PA-C ? Report Number: ?? [id number]: Total DLP = ??605.00 mGy-cm ? CLINICAL [...] 1719 ? DD/ ? TD/TT: 10/16/241717 ? Ludlow Machine Operator: ? Procedure Note Mary, Image - 10/16/[address] [place] [address] [address] Scan Report Signed Patient: Karla Fernández# : [id number] : 1960Acct:[id number] Age/Sex: 63 / FADM Date: 10/16/24 Loc: HO.ED Attending Dr: Ordering Physician: Lanette Laura PA-C Date of Service: 10/16/24 Procedure(s): CT cervical spine wo IV con Accession Number(s): [id number] cc: Zeinab Sykes MD; Lanette Laura PA-C Report Number: [id number]: Total DLP = 605.00 mGy-cm CLINICAL HISTORY: [...] OV> 10/16/24 1719 DD/ 17 TD/TT: 10/16/241717 Ludlow Machine Operator: [facility] External Provider IMG CT PROCEDURES Final Result * Hm Colonoscopy (11/05/2020 11:36 AM EDT) Historical Provider HEALTH MAINTENANCE Final Result documented in this encounter Visit Diagnoses Not on filedocumented in this encounter Additional Health Concerns Assessment Noted Time PHQ-9 Depression Total Score: 22 025 10:31 AM EST documented as of this encounter Care Teams Probation And Patrol Agent Relationship Specialty Start Date End Date Zeinab Sykes MD [address] [place] [address] PCP - General Internal Medicine 01/02/24 Tomeka Martins Klystrom Tube TesterOccupational Therapy Teacher 10/27/23 documented as of this encounter
--- OUTSIDE RECORDS SUMMARY | 2024-10-18 14:13 | XMS_ITS | Clinical Summary ---
Author Organization [facility] Address [address] [place] [address] Care Team Providers Care Box Repairer Name Role Phone Meryl Montes Primary Care Provider [phone] Surgical History Surgery Date Site/Laterality Comments BREAST REDUCTION PROCEDURE: SC BREAST REDUCTION BACK SURGERY PROCEDURE: HISTORICAL BACK [...] 2024 Influenza Vaccine (#1) 2024 RSV Immunization Adult Patie nts (1 - 1-dose 75+ series) 11/05/2034 HIB [...] age to complete this topic Care Teams Box Repairer Relationship Specialty Start Date End Date Meryl Montes [address] [place] [phone] PCP - General 05/07/22
--- OUTSIDE RECORDS SUMMARY | 2024-10-18 14:14 | XMS_ITS | Encounter Summary ---
Author Organization [employer] [facility] Address [address] [place] [address] 7t [place] [address] Care Team Providers Care First Assistant Name Role Phone Oralia Aguila MD Primary Care Provider [phone] Zeinab Sykes MD Primary Care Provider + Reason for Visit * Reason Comments Med Refill Encounter Details Date Type Department Care Team (Late Contact Info) Description 07/06/2023 Refill [facility] WALK-IN CENTER [address] [place] [address] Bryn Franklin MD 230 [place] [address] Social History Tobacco Use Types Packs/Day Years [...] Description 10/23/2024 11:00 AM EDT Office Visit [facility] MEDICINE [address] [place] [address] 10/30/2024 3:30 PM EDT Office Visit [facility] ADULT DENTAL [address] [place] [address] Watkins-Maynard, Gay, DDS [address] [place] [address] 11/16/2024 11:00 AM EDT Nutrition [facility] DIABETES/NUTRITION [address] [place] [address] Juana Gusman, RD 230 [place] [address] 01/10/2025 12:00 PM EDT Office Visit [facility] MEDICINE [address] [place] [address] Zeinab Sykes MD [address] [place] [address] documented as of this encounter Goals Goal Patient Goal Type Associated Problems Recent Progress Patient-Stated? Author Patient will manage their medication General On track( 023 11:18 AM EDT) Citlali Ocampo, PharmD Note: Began medboxes. Goal achieved 11/19/22. Patient graduated from [facility]. documented as of this encounter Visit Diagnoses Not on filedocumented in this encounter Care Teams First Assistant Relationship Specialty Start Date End Date Oralia Aguila MD [address] [place] [address] [phone] PCP - General Family Medicine 04/26/23 01/01/24 Zeinab Sykes MD [address] [place] [address] [phone] PCP - General Internal Medicine 01/02/24 Tomeka Martins Vehicle Maintenance TechnicianOptical Model Maker And Tester 10/27/23 documented as of this encounter
--- OUTSIDE RECORDS SUMMARY | 2024-10-18 14:14 | XMS_ITS | Encounter Summary ---
Author Organization [employer] [facility] Address [address] [place] [address] 7t [place] [address] Care Team Providers Care Sweeper Operator Highways Name Role Phone Baltazar Evelyn EDWARDS Primary Care Provider [phone] Oralia Aguila MD Primary Care Provider [phone] Zeinab Sykes MD Primary Care Provider + Encounter Details Date Type Department Care Team (Latest Contact Info) Description 12/21/2018 Abstract [facility] CONVERSIONS Dental, Provider, DDS Social [...] Description 10/23/2024 11:00 AM EDT Office Visit [facility] MEDICINE [address] [place] [address] 10/30/2024 3:30 PM EDT Office Visit [facility] ADULT DENTAL [address] [place] [address] Gay Thompson, DDS 230 [place] [address] 11/16/2024 11:00 AM EDT Nutrition [facility] DIABETES/NUTRITION [address] [place], [place] [phone] Juana Gusman, MONICA [address] [place], [place] [phone] 01/10/2025 12:00 PM EDT Office Visit [facility] MEDICINE [address] [place] [address] Zeinab Sykes MD 230 [place], [place] [phone] documented as of this encounter Visit Diagnoses Not on filedocumented in this encounter Care Teams Sweeper Operator Highways Relationship Specialty Start Date End Date Evelyn Ledesma FNP PCP - General Family Medicine 03/15/22 04/25/23 Oralia Aguila MD [address] [place] [address] [phone] PCP - General Family Medicine 04/26/23 01/01/24 Zeinab Sykes MD [address] [place] [address] [phone] PCP - General Internal Medicine 01/02/24 Tomeka Martins Tow Bar DriverLockstitch Collar Setter 10/27/23 documented as of this encounter
--- OUTSIDE RECORDS SUMMARY | 2024-10-18 14:14 | XMS_ITS | Encounter Summary ---
Author Organization [facility] Address [address] [place] [address] 7t [place] [address] Care Team Providers Care Hospice Clinical Supervisor Name Role Phone Zeinab Sykes MD Primary Care Provider + Reason for Visit * Reason Onset Date Comments Med Refill 07/16/2024 Encounter Details Date Type Department Care Team ([facility] st Contact Info) Description 07/16/2024 Telephone [facility] MEDICINE 230 [place], [place] [phone] Zeinab Sykes MD 230 [place], [place] [phone] Med Refill Social History Tobacco Use Types [...] 10 MG capsule To be sent to: [facility] pharmacy documented in this encounter Plan of Treatment Upcoming Encounters Date Type Department Care Team (Late st Contact Info) Description 10/23/2024 11:00 AM EDT Office Visit [facility] MEDICINE 230 [place] [address] 10/30/2024 3:30 PM EDT Office Visit [facility] ADULT DENTAL [address] [place] [address] Gay Thompson, DDS 230 [place] [address] 11/16/2024 11:00 AM EDT Nutrition [facility] DIABETES/NUTRITION 230 [place], [place] [phone] Juana Gusman RD 230 [place], [place] [phone] 01/10/2025 12:00 PM EDT Office Visit [facility] MEDICINE 230 [place], [place] [phone] Zeinab Sykes MD 230 [place], [place] [phone] documented as of this encounter Goals Goal Patient Goal Type Associated Problems Recent Progress Patient-Stated? Author Patient will manage their medication General On track( 023 11:18 AM EDT) Citlali Ocampo, Anoop Note: Began medboxes. Goal achieved 11/19/22. Patient graduated from [facility]. documented as of this encounter Visit Diagnoses Not on filedocumented in this encounter Additional Health Concerns Assessment Noted Time PHQ-9 Depression Total Score: 18 024 1:46 PM EDT documented as of this encounter Care Teams Hospice Clinical Supervisor Relationship Specialty Start Date End Date Zeinab Sykes MD [address] [place], [place] [phone] PCP - General Internal Medicine 01/02/24 Tomeka Martins Program ClinicianSales Planning Manager 10/27/23 documented as of this encounter
--- OUTSIDE RECORDS SUMMARY | 2024-10-18 14:14 | XMS_ITS | Encounter Summary ---
Author Organization [employer] [facility] Address [address] [place] [address] 7t [place] [address] Care Team Providers Care Paedodontist Name Role Phone Oralia Aguila MD Primary Care Provider [phone] Zeinab Sykes MD Primary Care Provider + Reason for Visit * Reason Comments Med Refill Encounter Details Date Type Department Care Team (Late Contact Info) Description 08/09/2023 Refill [facility] MEDICINE [address] [place] [address] Oralia Aguila MD 230 [place], [place] [phone] Other intervertebral disc displacement, lumbar region Social [...] Description 10/23/2024 11:00 AM EDT Office Visit [facility] MEDICINE [address] [place] [address] 10/30/2024 3:30 PM EDT Office Visit [facility] ADULT DENTAL [address] [place] [address] [place] [address] Watkins-Maynard, Gay, DDS [address] [place] [address] 11/16/2024 11:00 AM EDT Nutrition [facility] DIABETES/NUTRITION [address] [place] [address] Juana Gusman, RD 230 [place] [address] 01/10/2025 12:00 PM EDT Office Visit [facility] MEDICINE [address] [place] [address] Zeinab Sykes MD 230 [place] [address] documented as of this encounter Goals Goal Patient Goal Type Associated Problems Recent Progress Patient-Stated? Author Patient will manage their medication General On track( 023 11:18 AM EDT) Citlali Ocampo, PharmCatrachita Note: Began medboxes. Goal achieved 11/19/22. Patient graduated from [facility]. documented as of this encounter Visit Diagnoses Diagnosis Other intervertebral disc displacement, lumbar region documented in this encounter Care Teams Paedodontist Relationship Specialty Start Date End Date Oralia Aguila MD [address] [place] [address] PCP - General Family Medicine 04/26/23 01/01/24 Zeinab Sykes MD [address] [place] [address] PCP - General Internal Medicine 01/02/24 Tomeka Martins Claim ApproverJob Interviewer 10/27/23 documented as of this encounter
--- OUTSIDE RECORDS SUMMARY | 2024-10-18 14:14 | XMS_ITS | Encounter Summary ---
Author Organization [facility] Address [address] [place] [address] 7t [place] [address] Care Team Providers Care Customs Compliance Manager Name Role Phone Oralia Aguila MD Primary Care Provider Zeinab Sykes MD Primary Care Provider + Reason for Visit * Reason Comments Med Refill Encounter Details Date Type Department Care Team (Late Contact Info) Description 09/21/2023 Refill [facility] MEDICINE [address] [place] [address] Oralia Aguila MD 230 [place], [place] [phone] Neuropathy Social History Tobacco Use Types Packs/Day [...] Description 10/23/2024 11:00 AM EDT Office Visit [facility] MEDICINE 230 [place], [place] [phone] 10/30/2024 3:30 PM EDT Office Visit [facility] ADULT DENTAL [address] [place] [address] Watkins-Maynard, Gay, DDS [address] [place] [address] 11/16/2024 11:00 AM EDT Nutrition [facility] DIABETES/NUTRITION [address] [place] [address] Juana Gusman, RD 230 [place] [address] 01/10/2025 12:00 PM EDT Office Visit [facility] MEDICINE [address] [place] [address] eZinab Sykes MD [address] [place] [address] documented as of this encounter Goals Goal Patient Goal Type Associated Problems Recent Progress Patient-Stated? Author Patient will manage their medication General On track( 023 11:18 AM EDT) Citlali Ocampo, PharmD Note: Began medboxes. Goal achieved 11/19/22. Patient graduated from [facility]. documented as of this encounter Visit Diagnoses Diagnosis Neuropathy Mononeuritis of unspecified site documented in this encounter Care Teams Customs Compliance Manager Relationship Specialty Start Date End Date Oralia Aguila MD [address] [place] [address] PCP - General Family Medicine 04/26/23 01/01/24 Zeinab Sykes MD [address] [place] [address] [phone] PCP - General Internal Medicine 01/02/24 Tomeka Martins Science AnalystLead Java J2Ee Developer 10/27/23 documented as of this encounter
--- OUTSIDE RECORDS SUMMARY | 2024-10-18 14:14 | XMS_ITS | Clinical Summary ---
Author Organization [facility], Address [address] [place] [address] [place] [address] Phone Care Team Providers Care Lime Kiln Worker Helper Name Role Phone Evelyn Rodriguez Primary Care [...] Colorectal Cancer Screening: Sigmoidoscopy 11/05/2008 Influenza Vaccine (Season Ended) 2025 Hepatitis B Vaccine Aged Out No longe r eligible based on patient's age to complete this topic Pneumococcal Vaccine: Pediat rics (0 to 5 Years) and At-Risk Patients (6 to 64 Years) Aged Out No longer eligible b ased on patient's age to complete this topic Insurance [place]ID [place] Care Teams Lime Kiln Worker Helper Relationship Specialty Start Date End Date Evelyn Rodriguez FNP PCP - General 02/18/23
--- OUTSIDE RECORDS SUMMARY | 2024-10-18 14:14 | XMS_ITS | Encounter Summary ---
Author Organization [facility] Address [address] [facility] 7t [place] [address] Care Team Providers Care Care Worker Name Role Phone Zeinab Sykes MD Primary Care Provider + Reason for Visit * Reason Comments Med Refill Encounter Details Date Type Department Care Team ([facility] st Contact Info) Description 10/17/2024 Refill [facility] MEDICINE 230 [place], [place] [phone] Zeinab Sykes MD 230 [place] [address] Neuropathy Social History Tobacco Use Types Packs/Day [...] Description 10/23/2024 11:00 AM EDT Office Visit [facility] MEDICINE [address] [place] [address] 10/30/2024 3:30 PM EDT Office Visit [facility] ADULT DENTAL [address] [place] [address] Watkins-Maynard, Gay, DDS [address] [place] [address] 11/16/2024 11:00 AM EDT Nutrition [facility] DIABETES/NUTRITION [address] [place] [address] Juana Gusman, RD [address] [place] [address] 01/10/2025 12:00 PM EDT Office Visit [facility] MEDICINE [address] [place] [address] Zeinab Sykes MD [address] [place] [address] documented as of this encounter Goals Goal Patient Goal Type Associated Problems Recent Progress Patient-Stated? Author Patient will manage their medication General On track( 023 11:18 AM EDT) No Citlali Armando, PharmCatrachita Note: Began medboxes. Goal achieved 11/19/22. Patient graduated from [facility]. documented as of this encounter Visit Diagnoses Diagnosis Neuropathy Mononeuritis of unspecified site documented in this encounter Additional Health Concerns Assessment Noted Time PHQ-9 Depression Total Score: 22 025 10:31 AM EST documented as of this encounter Care Teams Care Worker Relationship Specialty Start Date End Date Zeinab Sykes MD [address] [place] [address] PCP - General Internal Medicine 01/02/24 Tomeka Martins Exhibit ElectricianSenior Mortgage Underwriter 10/27/23 documented as of this encounter
--- OUTSIDE RECORDS SUMMARY | 2024-10-18 14:14 | XMS_ITS | Encounter Summary ---
Author Organization [facility] Address [address] [place] [address] 7t [place] [address] Care Team Providers Care Train Driver Name Role Phone Oralia Aguila MD Primary Care Provider [phone] Zeinab Sykes MD Primary Care Provider + Reason for Visit * Reason Onset Date Comments Med Refill 05/05/2023 Encounter Details Date Type Department Care Team (Late st Contact Info) Description 05/05/2023 Refill [facility] MEDICINE 230 [place], [place] [phone] Oralia Aguila MD 230 [place], [place] [phone] Other intervertebral disc displacement, lumbar region Social [...] 5- 325 MG tablet to besent to [facility] [place], [place] - [address] [facility] documented in this encounter Plan of Treatment Upcoming Encounters Date Type Department Care Team (Late st Contact Info) Description 10/23/2024 11:00 AM EDT Office Visit [facility] MEDICINE [address] [place] [address] 10/30/2024 3:30 PM EDT Office Visit [facility] ADULT DENTAL [address] [place] [address] Watkins-Maynard, Gay, DDS [address] [place] [address] 11/16/2024 11:00 AM EDT Nutrition [facility] DIABETES/NUTRITION [address] [place] [address] Juana Gusman, RD [address] [place] [address] 01/10/2025 12:00 PM EDT Office Visit [facility] MEDICINE [address] [place] [address] Zeinab Sykes MD [address] [place] [address] documented as of this encounter Goals Goal Patient Goal Type Associated Problems Recent Progress Patient-Stated? Author Patient will manage their medication General On track( 023 11:18 AM EDT) Citlali Ocampo, PharmCatrachita Note: Began medboxes. Goal achieved 11/19/22. Patient graduated from [facility]. documented as of this encounter Visit Diagnoses Diagnosis Other intervertebral disc displacement, lumbar region documented in this encounter Care Teams Train Driver Relationship Specialty Start Date End Date Oralia Aguila MD [address] [place] [address] PCP - General Family Medicine 04/26/23 01/01/24 Zeinab Sykes MD [address] [place] [address] PCP - General Internal Medicine 01/02/24 Tomeka Martins Cell ManagerBee Breeder 10/27/23 documented as of this encounter
--- OUTSIDE RECORDS SUMMARY | 2024-10-18 14:14 | XMS_ITS | Encounter Summary ---
Author Organization [facility] Address [address] [place] [address] 7t [place] [address] Care Team Providers Care Dean Of Instruction Name Role Phone Oralia Aguila MD Primary Care Provider [phone] Zeinab Sykes MD Primary Care Provider + Reason for Visit * Reason Onset Date Comments antibiotics pre med 07/19/2023 Encounter Details Date Type Department Care Team ([facility] st Contact Info) Description 07/19/2023 Telephone [facility] ADULT DENTAL [address] [place] [address] AttStefany terry, DDS [address] [place], [place] [phone] antibiotics pre med Social History Tobacco Use [...] 10/23/2024 11:00 AM EDT Office Visit [facility] MEDICINE [address] [place] [address] 10/30/2024 3:30 PM EDT Office Visit [facility] ADULT DENTAL [address] [place] [address] Watkins-Maynard, Gay, DDS [address] [place] [address] 11/16/2024 11:00 AM EDT Nutrition [facility] DIABETES/NUTRITION [address] [place] [address] Juana Gusman, RD [address] [place] [address] 01/10/2025 12:00 PM EDT Office Visit [facility] MEDICINE [address] [place] [address] Zeinab Sykes MD [address] [place] [address] documented as of this encounter Goals Goal Patient Goal Type Associated Problems Recent Progress Patient-Stated? Author Patient will manage their medication General On track( 023 11:18 AM EDT) No Citlali Armando, PharmCatrachita Note: Began medboxes. Goal achieved 11/19/22. Patient graduated from [facility]. documented as of this encounter Visit Diagnoses Not on filedocumented in this encounter Care Teams Dean Of Instruction Relationship Specialty Start Date End Date Oralia Aguila MD [address] [place] [address] PCP - General Family Medicine 04/26/23 01/01/24 Zeinab Sykes MD [address] [place] [address] PCP - General Internal Medicine 01/02/24 Tomeka Martins Stretcher OperatorAuthorization Nurse 10/27/23 documented as of this encounter
--- OUTSIDE RECORDS SUMMARY | 2024-10-18 14:14 | XMS_ITS | Encounter Summary ---
Author Organization [employer] [facility] Address [address] [place] [address] 7t [place] [address] Care Team Providers Care Rn Neurology Name Role Phone Baltazar Evelyn EDWARDS Primary Care Provider [phone] Oralia Aguila MD Primary Care Provider [phone] Zeinab Sykes MD Primary Care Provider + Encounter Details Date Type Department Care Team (Latest Contact Info) Description 10/30/2020 Abstract [facility] CONVERSIONS Dental, Provider, DDS Social History [...] Description 10/23/2024 11:00 AM EDT Office Visit [facility] MEDICINE [address] [place] [address] 10/30/2024 3:30 PM EDT Office Visit [facility] ADULT DENTAL [address] [place], [place] [phone] Gay Thompson, DDS [address] [place] [address] 11/16/2024 11:00 AM EDT Nutrition [facility] DIABETES/NUTRITION [address] [place], [place] [phone] Juana Gusman, MONICA [address] [place], [place] [phone] 01/10/2025 12:00 PM EDT Office Visit [facility] MEDICINE [address] [place] [address] Zeinab Sykes MD 230 [place], [place] [phone] documented as of this encounter Visit Diagnoses Not on filedocumented in this encounter Care Teams Rn Neurology Relationship Specialty Start Date End Date Evelyn Ledesma FNP PCP - General Family Medicine 03/15/22 04/25/23 Oralia Aguila MD [address] [place] [address] [phone] PCP - General Family Medicine 04/26/23 01/01/24 Zeinab Sykes MD [address] [place] [address] [phone] PCP - General Internal Medicine 01/02/24 Tomeka Martins Customer Insight AnalystPhysical Therapist 10/27/23 documented as of this encounter
[2024-10-18] MEDS: Barium Sulfate Oral (Berry) 450 ML ORAL.SUSP 900 ML PO (15:39)
[2024-10-18] MEDS: iohexoL 350 MG/ML 75 ML INFUS..BTL 85 ML IV (15:39)
== END 2024-10-18 12:59 | disposition home or self-care (01) ==
LOC: HO.CT 12:58
PROVIDERS: PCP Internal Medicine; Visit Provider Obstetrics & Gynecology
DX: R10.2 Pelvic and perineal pain (principal)
CPT/HCPCS: 74177; Q9967

== ENCOUNTER → 2024-10-18 13:03 | Outpatient (BNV) | payer MEDICARE, MEDICAID, SELFPAY | PROVIDERS: PCP Internal Medicine; Visit Provider Radiology Diagnostic Radiology | DX: R10.2 Pelvic and perineal pain (principal) | CPT/HCPCS: 74177 ==

== ENCOUNTER 2024-11-01 11:45 | Outpatient (AMB) | payer MEDICARE, MEDICAID, SELFPAY ==
--- NOTE | 2024-11-01 11:46 | MHC.OFFVIS ---
Intake Visit Reasons: ct scan results Er Registrar Required: Yes Er Registrar Language: Test Department Helper Services: Er Registrar Present (in person) Er Registrar Name: DONTRELL Leon Information Interpreted: non-clinical & clinical Horizontal Boring Mill Operator: Horizontal Boring Mill Operator Present (DONTRELL Leon) Accompanied by: Self / Same As Patient Allergies No Known Drug Allergies Allergy (Unknown, Verified 11/01/24 11:47) none pineapple [PINEAPPLE] Allergy (Unknown, Verified 11/01/24 11:47) TONGUE SWELLS latex Allergy (Verified 11/01/24 11:47) Unknown HPI Comments Details: Presenting for CT scan follow-up which showed the following: IMPRESSION: No acute findings. Pelvic Ultrasound done in 07/10 had limited visualization Pelvic ultrasound done in 04/10 showed a 0.8 cm myoma, follow-up pelvic ultrasound scheduled within weeks [facility] Medical History Environmental allergies Hypertension Primary osteoarthritis of left knee Primary osteoarthritis of right knee Hemorrhoids Diverticulosis large intestine w/o perforation or abscess w/o bleeding Encounter for screening colonoscopy Preoperative cardiovascular examination HART (dyspnea on exertion) Epigastric pain Chronic cough Gastric outlet obstruction Complications of bariatric procedures Pre-syncope Encounter for well woman exam with routine gynecological exam Postmenopausal bleeding Elevated cholesterol Full dentures Low back pain COVID-19 vaccine series completed Asthma Palpitations Diabetes mellitus Obesity Erosive osteoarthritis Primary osteoarthritis of knees, bilateral Surgical History H/O perineoplasty H/O bariatric surgery Status post total right knee replacement History of bladder surgery History of total bilateral knee replacement Hx of colonoscopy Hx of reduction mammoplasty Hx of tonsillectomy History of H/O Spinal surgery Family History Mother Hx of acute arthritis Father History of Parkinson's disease Social History Household Members Other:: Daughter Housing: House Are you a primary post acute care nurse to a significant other at home: No Do you presently have visiting nurse or other home services: No Unable to assess alcohol history related to: Unknown Alcohol intake: never Patient Tobacco Use Status: Never used Tobacco Current occupational status: disabled Current occupation: rt handed Sexual orientation: Straight/Heterosexual Gender identity: Female Review of Systems Const All systems reviewed & are unremarkable except as noted in HPI and below Reports as per HPI and Reports no additional complaints GI Reports no additional complaints Reports no additional complaints Assessment & Plan Assessment & Plan (1) Uterine myoma: Code(s): D25.9 - Leiomyoma of uterus, unspecified Category: Medical Plan: Pelvic Ultrasound scheduled . Instructions given to patient to schedule a follow-up appointment (2) Pelvic cramping: Code(s): R10.2 - Pelvic and perineal pain Category: Medical Plan: Discussed with the patient the results of the workup done including negative urine dip, pelvic ultrasound and CT scan. Differential diagnosis of elementary supervisor causes that have not be ruled out yet include but not limited to endometriosis, pelvic adhesions , or others. Recommended for the patient to see her PCP for further workup for non elementary supervisor causes; if the all the results are negative and the patient's pelvic pain is persistent, instructions given to patient to call back for further testing. Meanwhile, instructions were given the patient to go to emergency room or call in case of fever above 100.4, heavy vaginal bleeding, persistence or worsening of her pelvic pain. All questions answered, the patient verbalized understanding. Coding Level of Care Code Est Pt Level 3 (00175) Diagnoses Uterine myoma D25.9 Pelvic cramping R10.2
--- OUTSIDE RECORDS SUMMARY | 2024-11-01 14:39 | XMS_ITS | Encounter Summary ---
Author Organization [employer] Address [address] [facility] 7t [place] [address] Care Team Providers Care Floor Press Operator Name Role Phone Zeinab Sykes MD Primary Care Provider + Reason for Visit * Reason Onset Date Comments Verbal Orders 10/29/2024 Encounter Details Date Type Department Care Team ([facility] st Contact Info) Description 10/29/2024 Telephone [facility] MEDICINE [address] [place], [place] [phone] Zeinab Sykes MD 230 [place] [address] Verbal Orders Social History Tobacco Use Types Packs/Day Years [...] encounter Miscellaneous Notes * Telephone Encounter - Monalisa Jerome RN - 10/29/2024 3:30 PM EDT TC placed to Marcia [phone] we're sorry the republican you have dialed is not accepting calls at this time (number documented in TC). RN unable to leave . TC placed to Marcia [phone] (number documented in contacts) providing verbal order for detention services. Marcia to f/u PRN. * Telephone Encounter - Darius Tom - 10/29/2024 3:03 PM EDT Tc from Marcia with Tj Ramos requesting a call back regarding Verbal Orders. Contact Marcia at [phone] documented in this encounter Plan of Treatment Upcoming Encounters Date Type Department Care Team (Late st Contact Info) Description 11/16/2024 11:00 AM EDT Nutrition [facility] DIABETES/NUTRITION [address] [place] [address] Juana Gusman, RD [address] [place] [address] 01/04/2025 11:00 AM EDT Office Visit [facility] ADULT DENTAL [address] [place], [place] [phone] Fabi Hogue [address] [place], [place] [phone] 01/10/2025 12:00 PM EDT Office Visit [facility] MEDICINE [address] [place] [address] Zeinab Sykes MD [address] [place], [place] [phone] 01/22/2025 11:00 AM EDT Office Visit [facility] [address] [place], [place] [phone] documented as of this encounter Goals Goal Patient Goal Type Associated Problems Recent Progress Patient-Stated? Author Patient will manage their medication General On track( 023 11:18 AM EDT) Citlali Ocampo, Anoop Note: Began medboxes. Goal achieved 11/19/22. Patient graduated from [facility]. documented as of this encounter Visit Diagnoses Not on filedocumented in this encounter Additional Health Concerns Assessment Noted Time PHQ-9 Depression Total Score: 22 025 10:31 AM EST documented as of this encounter Care Teams Floor Press Operator Relationship Specialty Start Date End Date Zeinab Sykes MD [address] [place] [address] PCP - General Internal Medicine 01/02/24 Tomeka Martins Mercantile ReporterGrave Digger 10/27/23 documented as of this encounter
--- OUTSIDE RECORDS SUMMARY | 2024-11-01 14:39 | XMS_ITS | Encounter Summary ---
Author Organization [employer] [facility] Address [address] [place] [address] 7t [place] [address] Care Team Providers Care Poultry Process Worker Name Role Phone Evelyn Ledesma Primary Care Provider [phone] Oralia Aguila MD Primary Care Provider [phone] Zeinab Sykes MD Primary Care Provider + Reason for Visit * Reason Onset Date Comments Appointment Request 12/20/2022 Encounter Details Date Type Department Care Team (Late st Contact Info) Description 12/20/2022 Telephone [facility] MEDICINE [address] [place] [address] Evelyn Ledesma FNP [address] [place] [address] Dept [place] [address] Appointment Request Social History Tobacco Use Types [...] Miscellaneous Notes * Telephone Encounter - Aurelia Haley Barron - 12/20/2022 10:16 AM EDT Tc from pt requesting a call from a nurse in regards to pre-op appt scheduled on January 14 2023. ( Ptwould like to change a appt for an earlier day) Please contact pt at [phone] documented in this encounter Plan of Treatment Upcoming Encounters Date Type Department Care Team (Late st Contact Info) Description 11/16/2024 11:00 AM EDT Nutrition [facility] DIABETES/NUTRITION [address] [place] [address] Juana Gusman, MONICA [address] [place] [address] 01/04/2025 11:00 AM EDT Office Visit [facility] ADULT DENTAL [address] [place] [address] Mykel, Fabi [address] [place] [address] 01/10/2025 12:00 PM EDT Office Visit [facility] MEDICINE [address] [place] [address] Zeinab Sykes MD [address] [place] [address] 01/22/2025 11:00 AM EDT Office Visit [facility] MEDICINE [address] [place] [address] documented as of this encounter Goals Goal Patient Goal Type Associated Problems Recent Progress Patient-Stated? Author Patient will manage their medication General On track( 023 11:18 AM EDT) Citlali Ocampo, Anoop Note: Began medboxes. Goal achieved 11/19/22. Patient graduated from [facility]. documented as of this encounter Visit Diagnoses Not on filedocumented in this encounter Care Teams Poultry Process Worker Relationship Specialty Start Date End Date Evelyn Ledesma FNP PCP - General Family Medicine 03/15/22 04/25/23 Oralia Aguila MD [address] [place] [address] PCP - General Family Medicine 04/26/23 01/01/24 Zeinab Sykes MD [address] [place] [address] PCP - General Internal Medicine 01/02/24 Tomeka Martins Client Renewal SpecialistPersonalization Specialist 10/27/23 documented as of this encounter
--- OUTSIDE RECORDS SUMMARY | 2024-11-01 14:39 | XMS_ITS | Encounter Summary ---
Author Organization [facility], Address [address] [place] [address] Phone Care Team Providers Care Clearance Center Manager Name Role Phone Evelyn Rodriguez Primary Care Provider Silvana vailable Encounter Details Date Type Department Care Team (Late st Contact Info) Description 02/18/2023 Documentation Only [facility], [address] [place] [address] Xiao Sheppard [address] [place] [address] Social History Tobacco Use Types [...] on filedocumented in this encounter Care Teams Clearance Center Manager Relationship Specialty Start Date End Date Evelyn Rodriguez FNP PCP - General 02/18/23 documented as of this encounter
--- OUTSIDE RECORDS SUMMARY | 2024-11-01 14:39 | XMS_ITS | Encounter Summary ---
Author Organization [employer] Address [address] [place] [address] 7t [place] [address] Care Team Providers Care Rougher Merchant Mill Name Role Phone Zeinab Sykes MD Primary Care Provider + Reason for Visit * Reason Onset Date Comments Med Refill 10/26/2024 Encounter Details Date Type Department Care Team (Late st Contact Info) Description 10/26/2024 Refill [facility] MEDICINE [address] [place], [place] [phone] Zeinab Sykes MD 230 [place] [address] Other intervertebral disc displacement, lumbar region Social [...] encounter Miscellaneous Notes * Telephone Encounter - Fany Mary RN - 10/30/2024 8:42 AM EDT Bill reviewed again today, rx pended * Telephone Encounter - Fany Mary RN - 10/26/2024 2:08 PM EDT Bill reviewed, pt. Last picked up 28 day supply 10/03/24, due 10/31/24. Will pend to PCP 10/30/24 * Telephone Encounter - Kirstie Morrison - 10/26/2024 1:48 PM EDT TC from pt requesting medication refill. Medications needing refill : oxyCODONE-acetaminophen (Percocet) 5-325 MG tablet To be sent to: [facility] documented in this encounter Plan of Treatment Upcoming Encounters Date Type Department Care Team (Late st Contact Info) Description 11/16/2024 11:00 AM EDT Nutrition [facility] DIABETES/NUTRITION [address] [place], [place] [phone] Juana Gusman, RD [address] [place] [address] 01/04/2025 11:00 AM EDT Office Visit [facility] ADULT DENTAL [address] [place] [address] Mykel, Fabi [address] [place] [address] 01/10/2025 12:00 PM EDT Office Visit [facility] MEDICINE [address] [place] [address] Zeinab Sykes MD [address] [place] [address] 01/22/2025 11:00 AM EDT Office Visit [facility] MEDICINE [address] [place] [address] documented as of this encounter Goals Goal Patient Goal Type Associated Problems Recent Progress Patient-Stated? Author Patient will manage their medication General On track( 023 11:18 AM EDT) Citlali Ocampo, PharmCatrachita Note: Began medboxes. Goal achieved 11/19/22. Patient graduated from [facility]. documented as of this encounter Visit Diagnoses Diagnosis Other intervertebral disc displacement, lumbar region documented in this encounter Additional Health Concerns Assessment Noted Time PHQ-9 Depression Total Score: 22 025 10:31 AM EST documented as of this encounter Care Teams Rougher Merchant Mill Relationship Specialty Start Date End Date Zeinab Sykes MD [address] [place] [address] PCP - General Internal Medicine 01/02/24 Tomeka Martins Polishing Machine Operator HelperPattern Setter 10/27/23 documented as of this encounter
--- OUTSIDE RECORDS SUMMARY | 2024-11-01 14:39 | XMS_ITS | Clinical Summary ---
Author Organization [facility] Address [address] [place] [address] Care Team Providers Care Pouncer Name Role Phone Meryl Montes Primary Care Provider Surgical History Surgery Date Site/Laterality Comments BREAST REDUCTION PROCEDURE: UT BREAST REDUCTION BACK SURGERY PROCEDURE: HISTORICAL BACK SURGERY; COMMENT: L4-5 rt L5-S1 decomp 05/26/18 Medical History Medical History Date Comments Asthma DX:Asthma Diabetes mellitus type 2, co ntrolled, with complications (CMS/HCC V24, CMS/HCC V28) DX:Diabetes mellitus type 2, controlled, with complications ([facility]) Essential hypertension DX:Essent ial hypertension Depressive disorder [...] - 2023-2 5 season) 2024 Influenza Vaccine (Season Ended) 2025 RSV Immunization Adult Patie nts (1 - [...] age to complete this topic Meningococcal B Vaccine Aged Out No l onger eligible based on patient's age to complete [...] age to complete this topic Care Teams Pouncer Relationship Specialty Start Date End Date Meryl Montes [address] [place] [phone] PCP - General 05/07/22
--- OUTSIDE RECORDS SUMMARY | 2024-11-01 14:39 | XMS_ITS | Encounter Summary ---
Author Organization [employer] [facility] Address [address] [place] [address] 7t [place] [address] Care Team Providers Care Manager Agricultural Name Role Phone Zeinab Sykes MD Primary Care Provider + Reason for Visit * Reason Comments Dentures Encounter Details Date Type Department Care Team ([facility] st Contact Info) Description 10/31/2024 8:30 AM EDT Office Visit [facility] ADULT DENTAL [address] [place] [address] Gay Thompson, DDS [address] [place] [address] Fracture of removable partial denture (Primary Dx) [...] Progress Notes * Gay Thompson DDS - 10/31/2024 8:30 AM EDT Rhonda Mclaughlin in office because lower denture fractured. Pt is due for new dentures in December. Pt asked if interested in new pair, in order to do so she would have to wait until December, and repair would have to be stopped in order for insurance to cover the new set. Pt agreed and is coming back in December for new dentures designed. NV: Impression new dentures F/P documented in this encounter Plan of Treatment Upcoming Encounters Date Type Department Care Team (Late st Contact Info) Description 11/16/2024 11:00 AM EDT Nutrition [facility] DIABETES/NUTRITION [address] [place], [place] [phone] Juana Gusman RD [address] [place], [place] [phone] 01/04/2025 11:00 AM EDT Office Visit [facility] ADULT DENTAL [address] [place], [place] [phone] Fabi Hogue [address] [place], [place] [phone] 01/10/2025 12:00 PM EDT Office Visit [facility] MEDICINE [address] [place] [address] Zeinab Sykes MD [address] [place] [address] 01/22/2025 11:00 AM EDT Office Visit [address] [address] Scheduled Orders Name Type Priority Associated Diagnoses Orde r Schedule Max Max COMPLETE DENTURE - MAXILLARY Dental Routine [address] arting 10/31/2024 18,19,20,24,25,28,29,30,3 1 18,19,20,24,25,28,29,30,3 1 MANDIBULAR PARTIAL DENTURE - RESIN BASE (INCLUDING, RETENTIVE/CLASPING MATERIALS, RESTS, AND TEETH) Dental Routine [address] arting 10/31/2024 DENTURE IMPRESSION Dental Routine 1 Occu rrences starting 10/31/2024 BITE REGISTRATION Dental Routine 1 Occur rences starting 10/31/2024 WAX TRY IN Dental Routine 1 Occurrences starting 10/31/2024 documented as of this encounter Goals Goal Patient Goal Type Associated Problems Recent Progress Patient-Stated? Author Patient will manage their medication General On track( 023 11:18 AM EDT) Citlali Ocampo, Anoop Note: Began medboxes. Goal achieved 11/19/22. Patient graduated from [facility]. documented as of this encounter Procedures Procedure Name Priority Date/Time Associated Diagnosis Comments NO CHARGE PROCEDURE Routine 10/31/2024 8:30 AM EDT documented in this encounter Visit Diagnoses Diagnosis Fracture of removable partial denture- Primary documented in this encounter Additional Health Concerns Assessment Noted Time PHQ-9 Depression Total Score: 22 025 10:31 AM EST documented as of this encounter Care Teams Manager Agricultural Relationship Specialty Start Date End Date Zeinab Sykes MD [address] [place] [address] PCP - General Internal Medicine 01/02/24 Tomeka Martins Paste MakerMaterials Mgmt Tech 10/27/23 documented as of this encounter
--- OUTSIDE RECORDS SUMMARY | 2024-11-01 14:39 | XMS_ITS | Encounter Summary ---
Author Organization [employer] [facility] Address [address] [facility] 7t [place] [address] Care Team Providers Care Asw/Asuw Tactical Air Controller Name Role Phone Evelyn Ledesma Primary Care Provider [phone] Oralia Aguila MD Primary Care Provider [phone] Zeinab Sykes MD Primary Care Provider + Encounter Details Date Type Department Care Team ([facility] Contact Info) Description 10/22/2022 Orders Only [facility] MEDICINE [address] [place] [address] Evelyn Ledesma FNP [address] [place] [address] Dept [place] [address] Social History Tobacco Use Types Packs/Day Years [...] Upcoming Encounters Date Type Department Care Team ([facility] Contact Info) Description 11/16/2024 11:00 AM EDT Nutrition [facility] DIABETES/NUTRITION [address] [place] [address] Juana Gusman, RD 230 [place] [address] 01/04/2025 11:00 AM EDT Office Visit [facility] ADULT DENTAL [address] [place] [address] Mykel, Fabi [address] [place] [address] 01/10/2025 12:00 PM EDT Office Visit [facility] MEDICINE [address] [place] [address] Zeinab Sykes MD [address] [place] [address] 01/22/2025 11:00 AM EDT Office Visit [facility] MEDICINE [address] [place] [address] documented as of this encounter Visit Diagnoses Not on filedocumented in this encounter Care Teams Asw/Asuw Tactical Air Controller Relationship Specialty Start Date End Date Evelyn Ledesma FNP PCP - General Family Medicine 03/15/22 04/25/23 Oralia Aguila MD [address] [place] [address] PCP - General Family Medicine 04/26/23 01/01/24 Zeinab Sykes MD [address] [place] [address] PCP - General Internal Medicine 01/02/24 Tomeka Martins Petroleum Products District SupervisorWashing Machine Loader 10/27/23 documented as of this encounter
--- OUTSIDE RECORDS SUMMARY | 2024-11-01 14:39 | XMS_ITS | Clinical Summary ---
Author Organization [facility] Address [address] [place] [address] [address] [place] [address] Care Team Providers Care Video Editing Intern Name Role Phone Zeinab Sykes MD [...] in the morning. Active oxymetazoline (Afrin Nasal [place]) 0.05 % nasal spray Administer 2 sprays [...] long-term current use of insulin ([facility]) 1 each by Other route Once per day. USE TO TEST BLOOD SUGAR ONCE A DAY 100 each 3 024 Active glucose blood (FREESTYLE LITE) test stripIndications:T ype 2 diabetes mellitus without complication, without long-term current use of insulin ([facility]) USE TO TEST BLOOD SUGAR ONCE A DAY 100 each 3 024 Active sodium chloride ([place] Nasal [place]) 0.65 % nasal sprayIndications:A cute nasopharyngitis Administer 1 spray into each nostril if needed for congestion. 30 mL 1 025 2025 Active Alcohol Swabs (Alcohol Prep) padsIndications:Ty pe 2 diabetes mellitus without complication, without long-term current use of insulin ([facility]) USE TWICE DAILY 100 [...] TWICE DAILY 60 capsule 3 025 Active melatonin 10 MG tablet Take 1 tablet (10 mg) by mouth at bedtime. 90 tablet 1 Active ergocalciferol (Vitamin D2) 1.25 MG (79370 UT) capsule Take 1 capsule (1.25 mg) [...] MORNING, EVENING, AND BEDTIME 90 capsule 3 Active oxyCODONE-acetamin ophen (Percocet) 5-325 MG tabletIndications: Other intervertebral disc displacement, lumbar region Take 1 tablet by mouth every 6 (six) hours if needed for severe pain for up to 28 days. 112 tablet 025 2024 Active gabapentin (Neurontin) 300 MG capsuleIndications :Neuropathy TAKE 1 CAPSULE BY MOUTH THREE TIMES DAILY IN THE MORNING, EVENING, AND BEDTIME 90 capsule 3 024 2024 Discontinued ergocalciferol (Vitamin D2) 1.25 MG (18328 UT) capsule TAKE 1 CAPSULE BY MOUTH [...] bx, I will fu or refer to COMMISSARY STEWARD after US reports. Left foot pain 03/29/2024 Assessment & Plan (03/29/2024 2:48 PM EDT): Likely sec to lumbar radiculopathy. Order Xray foot to ro osteophyte or neuroma. Refer to PT and fu w me in 3-4m No change in meds. Lumbar back pain with radicu lopathy affecting left lower extremity 03/29/2024 Assessment & Plan (10/23/2024 2:47 PM EDT): Known DDD L-spine with radiculopathy sxs 05/26/2018 - Lumbar decompression surgery: L4-5 and right L5-S1 decompressive laminectomy at [facility] - surgeon Dr. Melia Pedroza DME request for 10-in-1 pillow on 07/31/24 (not approved by insurance) Assessment & Plan (09/27/2024 11:23 AM EDT): Known DDD L-spine with radiculopathy sxs 05/26/2018 - Lumbar decompression surgery: L4-5 and right L5-S1 decompressive laminectomy at [facility] - surgeon Dr. Melia RIOS request for 10-in-1 pillow on 07/31/24 (not approved by insurance) Assessment & Plan (07/31/2024 4:58 PM EST): Known DDD L-spine with radiculopathy sxs 05/26/2018 - Lumbar decompression surgery: L4-5 and right L5-S1 decompressive laminectomy at [facility] - surgeon Dr. Melia Pedroza DME request for 10-in-1 pillow on 07/31/24 Assessment & Plan (05/29/2024 5:18 PM EST): Known DDD L-spine with radiculopathy sxs 05/26/2018 - Lumbar decompression surgery: L4-5 and right L5-S1 decompressive laminectomy at [facility] - surgeon Dr. Melia Pedroza Assessment [...] disc, s/p vagus nerve stimulator, neuropathy Last DISC INSPECTOR Agreement: 03/13/24 Tier 3: DISC INSPECTOR visit Q4-6 months. (Last evaluated Jul 2024 by PCP - Dr. Sykes) Assessment & Plan (10/23/2024 2:48 PM EDT): -Good engagement and participation with [...] Group - WNL 09/25/24: Group - WNL 10/23/24: Group - WNL Assessment & Plan (09/27/2024 11:24 AM EDT): [...] in 3mo Fatty liver 02/04/2024 Overview (03/29/2024): [facility] abd US on 10/2023 showed Fatty liver. Normal LFTs/albumin Assessment & Plan (03/29/2024 1:40 PM EDT): LFTs remain stable/normal. Dx d/w patient and advised her to continue tight control of DM, weight reduction, try to cut down on opiates and fu with me. I also advised her to avoid ETOH or recreational substances. Seborrheic dermatitis of scalp 01/02/2024 Overview (01/02/2024): Seen at [facility] dermatology Assessment & Plan (03/20/2024 3:50 PM EDT): Generally well controlled, encouraged to continue fu with [facility] derm Refill for fluocinolone today. Housing insecurity 01/02/2024 Assessment & Plan (08/15/2024 1:36 PM EST): See above. Applying for housing and need handicap access. Assessment & Plan (03/20/2024 3:51 PM EDT): Awaiting housing application, lives in abasement FU with [facility]. Stage 3a chronic kidney disease 11/01/2023 Assessment [...] pseudophedrine short term. Will refer her to combination machine tender again so she can be evaluated for [...] albuterol prn. Will refer her back to combination machine tender. RUQ pain 10/05/2023 Assessment & Plan (11/01/2023 [...] ballon inside the gastric body placed in [place] for bariatric procedure about 20 cm in [...] lumbar r egion 05/17/2017 Overview (09/17/2022): On DISC INSPECTOR contract. discussed tapering percocet options, not interested.. Referred to [facility] forms dept for handicap plackards documents. Referred to [facility] for polypharmacy education. Continue medications as prescribed. Discussed Narcan. Encouraged nonpharmacologic pain relief strategies. will f/up next visit Assessment & Plan (03/20/2024 3:48 PM EDT): On DISC INSPECTOR contract. discussed tapering percocet options, not interested, it apparently offers partial enough improvement of sxs. Patient is aware that rn long term care use of opiates can cause hyperalgesia, liver toxicity, HOME CARE GIVER toxicity, increase anxiety, among others. Will continue to work with chronic pain management [facility] clinic. Continue medications as prescribed. Discussed [...] PRN for elevated BP readings.. Referred to [facility] for polypharmacy education. Continue medications [...] to enails with type 2 diabetes mellitus ([facility]) 05/17/2017 03/29/2024 Encounters Date Type Department Care Team Description 10/31/2024 8:30 AM EDT Office Visit [facility] [address] [place] [address] Watkins-Maynard, Gay, DDS Fracture of removable partial denture (Primary Dx) 10/30/2024 Telephone [facility] [address] [place] [address] Zeinab Sykes MD FYI 10/29/[address] [address] Zeinab Sykes MD Verbal Orders 10/26/2024 Refill [facility] [address] [place] [phone] Zeinab Sykes MD Other intervertebral disc displacement, lumbar region 10/23/2024 11:00 AM EDT Office Visit [facility] [address] [place] [address] Alma Jha, CLINICAL INVESTIGATOR Lumbar back pain with radiculopathy affecting left lower extremity (Primary Dx); Long-term current use of opiate analgesic 10/23/2024 Travel 10/18/[address] [address] Zeinab Sykes MD ER Follow-up; Nurse Triage 10/17/[address] [address] Zeinab Sykes MD Neuropathy 10/09/2024 11:45 AM EDT Office Visit [address] [address] Zeinab Sykes MD Moderate persistent asthma without complication (Primary Dx); Class 2 severe obesity with serious comorbidity and body mass index (BMI) of 35.0 to 35.9 in adult, unspecified obesity type ([facility]); Type 2 diabetes mellitus without complication, without long-term current use of insulin ([facility]); Essential hypertension; Arthritis; Vitamin D deficiency 10/09/2024 Travel 10/01/2024 Travel 09/28/2024 Refill [facility] [address] [place] [address] Zeinab Sykes MD Other intervertebral disc displacement, lumbar region 09/28/2024 Population Health Risk Score Community [facility] ([facility]) Department [address] [place] [phone] Provider, Population Health Generic 09/25/2024 9:45 AM EDT Office Visit [facility] [address] [place] [address] Alma Jha, CLINICAL INVESTIGATOR Lumbar back pain with radiculopathy affecting left lower extremity (Primary Dx); Long-term current use of opiate analgesic 09/25/2024 Travel 09/20/2024 Orders Only [facility] [address] [place] [address] Parag Torres MD 09/19/2024 Refill [facility] [address] [place] [address] Zeinab Sykes MD Left hand pain 08/31/2024 Refill [facility] [address] [place] [address] Zeinab Sykes MD Other intervertebral disc displacement, lumbar region 08/30/2024 Refill [facility] [address] [place] [address] Zeinab Sykes MD 08/29/2024 Refill [facility] [address] [place] [address] Oralia Aguila MD 08/27/2024 Telephone [facility] [address] [place] [address] Zeinab Sykes MD Results 08/21/2024 5:20 PM EST Office Visit [facility] [address] [place] [address] Yonathan Snider MD Subacute cough 08/21/2024 Travel 08/20/2024 Refill [facility] [address] [place] [address] Zeinab Sykes MD Type 2 diabetes mellitus without complication, without long-term current use of insulin ([facility]); Other intervertebral disc displacement, lumbar region 08/15/2024 10:15 AM EST Office Visit [facility] [address] [place] [address] Zeinab Sykes MD Type 2 diabetes mellitus without complication, without long-term current use of insulin ([facility]) (Primary Dx); Essential hypertension; Postmenopause bleeding; Recurrent major depressive disorder, in partial remission ([facility]); Moderate persistent asthma with acute exacerbation; [place] (obstructive sleep apnea); Housing insecurity; Nasal congestion 08/15/2024 Travel 08/14/2024 Travel 08/10/2024 Telephone [facility] [address] [place] [address] Terra Mackey MA Chart prep 08/08/2024 5:20 PM EST Office Visit [facility] [address] [place] [phone] Lia Martinez NP Acute nasopharyngitis (Primary Dx); Flu-like symptoms 08/08/2024 3:00 PM EST Office Visit [facility] [address] [place] [address] Watkins-Maynard, Gay, DDS Fracture of removable partial denture (Primary Dx) 08/03/2024 3:30 PM EST Office Visit [facility] [address] [place] [address] Watkins-Maynard, Gay, DDS Fracture of removable partial denture (Primary Dx) 08/03/[address] [address] Zeinab Sykes MD Other intervertebral disc displacement, lumbar region 08/03/2024 Patient Outreach [facility] [address] [place] [address] Zeinab Sykes MD Pre-visit Planning ((Unable to reach for PVP screening, LVM)) from Last 3 Months Immunizations Name Administration [...] Info) Description 11/16/2024 11:00 AM EDT Nutrition [facility] [address] [place] [address] Juana Gusman, RD [address] [place] [address] 01/04/2025 11:00 AM EDT Office Visit [facility] [address] [place] [address] Mykel, Fabi [address] [place] [address] 01/10/2025 12:00 PM EDT Office Visit [facility] [address] [place] [address] Zeinab Sykes MD [address] [place] [address] 01/22/2025 11:00 AM EDT Office Visit [facility] [address] [place] [address] Health Maintenance Due Date Last Done Comments [...] Panel 01/05/2025 01/06/2024, 05/19, 09/16/2020 Depression Monitoring 02/12/2025 08/15/2024, 025 Diabetes: Foot Exam 03/29/2025 03/29/2024, 03/29/2024, 03/29/2024, Additional history exists Diabetes: Hemoglobin A1C 04/11/2025 025, 03/29/2024, 10/05/2023, Additional history exists Cervical Cancer Screening 07/07/2025 HPV/Cotest 07/07/2025 07/07/2020 Depression Screening 08/15/2025 08/15/2024, 08/15/19 25 Tobacco Screening 10/31/2025 10/31/2024 Pap Smear 06/01/2027 06/01/2024, 07/07/2020 DTaP/Tdap/Td Vaccines [...] medboxes. Goal achieved 11/19/22. Patient graduated from [facility]. Procedures Procedure Name Priority Date/Time Associated Diagnosis Comments NO CHARGE PROCEDURE Routine 10/31/2024 8 :30 AM EDT POCT DIDIER-14 URINE DRUG SCREEN Routine 10/23/2024 1:48 PM EDT Lumbar back pain with radiculopathy affecting left lower extremity Long-term current use of opiate analgesic CT ABDOMEN PELVIS W CONTRAST Routine 10/19/2024 4:13 PM EDT XR WRIST 3+ VIEWS LEFT Routine 10/16/2024 [...] long-term current use of insulin ([facility]) POCT GLUCOSE Routine 10/09/2024 11:58 AM EDT Type 2 diabetes mellitus without complication, without long-term current use of insulin ([facility]) POCT DIDIER-14 URINE DRUG [...] without long-term current use of insulin (CMS/HCC) POCT RAPID COVID ANTIGEN Routine 08/08/2024 5:54 [...] PM EST Fracture of removable partial denture PAP SMEAR Routine 06/01/2024 2:43 PM EST [...] Relevant to Health Maintenance Results * POCT DIDIER-14 Urine Drug Screen (10/23/2024 1:48 PM EDT) Only the most recent of2 resultswithin the time period is included. Oxycodone Screen, Urine Positive Urine Urine specimen obtained by clean catch procedure / Unknown 10/23/2024 1:48 PM EDT Narrative Jasmyn Menjivar RN - 10/23/2024 1:48 PM EDT .UTOX cup Lot#[id number] Exp. 03/06/26 Internal Pass Control Alma Jha CLINICAL INVESTIGATOR POINT OF CARE TEST ENTER/EDIT ORDERABLES Final Result * CT Abdomen Pelvis w/ Contrast (10/19/2024 4:13 PM EDT) Anatomical Region Laterality Modality Body, Pelvis, Abdomen Computed T omography 10/19/2024 4:13 PM EDT Narrative 10/19/2024 4:14 PM EDT ? [facility] ?[address] ?[place] [address] ? CT Scan Report ? Signed ? Patient: Rhonda Fernández ?MR# ?? : [id number] ? : 1960 ?Acct:[id number] ? Age/Sex: 63 / F ?ADM Date: 04/03/25 ? Loc: HO.CT ? Attending Dr: Nolberto Quigley MD ? Ordering Physician: Nolberto Quigley MD ?? Date of Service: 10/18/24 ?? Procedure(s): CT abdomen pelvis w IV con ?? Accession Number(s): [id number] ? cc: Zeinab Sykes MD; Nolberto Quigley MD ? Report Number: ?? [id number]: Total DLP = ??538.00 mGy-cm ? CLINICAL HISTORY: R10.2 - Pelvic and perineal pain ? CT abdomen and pelvis with contrast ? Comparison: None ? Findings: ?? No consolidation or effusion. ? Unremarkable gallbladder and solid organs. No urolithiasis. ?? No bowel obstruction, pneumoperitoneum, or pneumatosis. ? Pelvic contents unremarkable. Normal appendix. ?? The bones are intact. ? IMPRESSION: ?? No acute findings. ? This document has been electronically signed by: Amalia Potter MD on ?? 10/19/2024 16:13:40 ? Dictated By: ?Amalia Potter MD ? Signed By: ?<Electronically signed by Amalia Potter MD in OV> ? 10/19/24 1614 ? DD/ 1613 ? TD/TT: 10/19/24 1613 ? Advanced Manager: ? Procedure Note Carolina Hernandez - 10/19/[address] [place] [address] [address] Scan Report Signed Patient: Karla Fernández# : [id number] : 1960Acct:[id number] Age/Sex: 63 / FADM Date: 10/18/24 Loc: HO.CT Attending Dr: Nolberto Quigley MD Ordering Physician: Nolberto Quigley MD Date of Service: 10/18/24 Procedure(s): CT abdomen pelvis w IV con Accession Number(s): [id number] cc: Zeinab Sykes MD; Nolberto Quigley MD Report Number: [id number]: Total DLP = 538.00 mGy-cm CLINICAL HISTORY: R10.2 - Pelvic and perineal pain CT abdomen and pelvis with contrast Comparison: None Findings: No consolidation or effusion. Unremarkable gallbladder and solid organs. No urolithiasis. No bowel obstruction, pneumoperitoneum, or pneumatosis. Pelvic contents unremarkable. Normal appendix. The bones are intact. IMPRESSION: No acute findings. This document has been electronically signed by: Amalia Potter MD on 10/19/2024 16:13:40 Dictated By: Amalia Potter MD Signed By: <Electronically signed by Amalia Potter MD in OV> 10/19/24 1614 DD/ 1613 TD/TT: 10/19/24 1613 Advanced Manager: us [facility] External Provider IMG CT PROCEDURES Final Result * XR Wrist 3+ Views Left (10/16/2024 5:26 PM EDT) Anatomical Region Laterality Modality Upper Extremities, Wrist Left Radiogr aphic Imaging 10/16/2024 5:26 PM EDT Narrative 10/16/2024 5:28 PM EDT ? [facility] ?[address] ?[place] [address] ?XRay Report ? Signed ? Patient: Gerry MclaughlinRhonda ?MR# ?? : [id number] ? : 1960 ?Acct:[id number] ? Age/Sex: 63 / F ?ADM Date: 10/16/24 ? Loc: HO.ED ? Attending Dr: ? Ordering Physician: Lanette Laura PA-C ?? Date of Service: 10/16/24 ?? Procedure(s): XR wrist LT min 3V ?? Accession Number(s): [id number] ? cc: Zeinab Sykes MD; Lanette Laura [...] 10/16/247 ? DD/ 1726 ? TD/TT: 10/16/24 172 ? Advanced Manager: ? Procedure Note Mary, Carolina - 10/16/2024 [facility] [address] [facility] [place] [address] XRay Report Signed Patient: Spenser FernándezR# : [id number] : 1960Acct:[id number] Age/Sex: 63 / FADM Date: 10/16/24 Loc: HO.ED Attending Dr: Ordering Physician: Lanette Laura PA-C Date of Service: 10/16/24 Procedure(s): XR wrist LT min 3V Accession Number(s): [id number] cc: Zeinab Sykes MD; Lanette Laura PA-C [...] by Enedina Beltran MD in OV> 10/16/24 1727 DD/ 1726 TD/TT: 10/16/24 1726 Advanced Manager: [facility] External Provider IMG XR PROCEDURES Final Result * XR Hip left with Pelvis 1 view (10/16/2024 5:24 PM EDT) Anatomical Region Laterality Modality Lower Extremities, Hip Bilateral Radiograp hic Imaging 10/16/2024 5:24 PM EDT Narrative 10/16/2024 5:26 PM EDT ? [facility] ?[address] ?[place] [address] ?XRay Report ? Signed ? Patient: Gerry Mclaughlin,Rhonda ?MR# ?? : [id number] ? : 1960 ?Acct:[id number] ? Age/Sex: 63 / F ?ADM Date: 04/01/25 ? Loc: HO.ED ? Attending Dr: ? Ordering Physician: Lanette Laura PA-C ?? Date of Service: 10/16/24 ?? Procedure(s): XR hip LT w PEL1V ?? Accession Number(s): [id number] ? cc: Zeinab Sykes MD; Lanette Laura [...] by Enedina Beltran MD in OV> ? 10/16/245 ? DD/ ? TD/TT: 10/16/24 1724 ? Advanced Manager: ? Procedure Note Donzacter, Image - 10/16/2024 [place] [address] XRay Report Signed Patient: Karla Fernández# : [id number] : 1960Acct:[id number] Age/Sex: 63 / FADM Date: 10/16/24 Loc: HO.ED Attending Dr: Ordering Physician: Lanette Laura PA-C Date of Service: 10/16/24 Procedure(s): XR hip LT w PEL1V Accession Number(s): [id number] cc: Zeinab Sykes MD; Lanette Laura PA-C [...] in OV> 10/16/241724 DD/ 23 TD/TT: 10/16/241723 Advanced Manager: [facility] External Provider IMG XR PROCEDURES Final Result * XR Elbow 3+ Views Left (10/16/2024 5:23 PM EDT) Anatomical Region Laterality Modality Upper Extremities, Elbow Left Radiogr aphic Imaging 10/16/2024 5:23 PM EDT Narrative 10/16/2024 5:25 PM EDT ? [facility] ?[address] ?[place] [address] ?XRay Report ? Signed ? Patient: Gerry Mclaughlin,Rhonda ?MR# ?? : [id number] ? : 1960 ?Acct:[id number] ? Age/Sex: 63 / F ?ADM Date: 10/16/24 ? Loc: HO.ED ? Attending Dr: ? Ordering Physician: Lanette Laura PA-C ?? Date of Service: 10/16/24 ?? Procedure(s): XR elbow LT min 3V ?? Accession Number(s): [id number] ? cc: Zeinab Sykes MD; Lanette Laura [...] DD/ 1723 ? TD/TT: 10/16/24 1723 ? Advanced Manager: ? Procedure Note Mary, Image - 10/16/[address] [address] XRay Report Signed Patient: Tanmay FernándezSeun# : [id number] : 1960Acct:[id number] Age/Sex: 63 / FADM Date: 10/16/24 Loc: HO.ED Attending Dr: Ordering Physician: Lanette Laura PA-C Date of Service: 10/16/24 Procedure(s): XR elbow LT min 3V Accession Number(s): [id number] cc: Zeinab Sykes MD; Lanette Laura PA-C [...] Beltran MD in OV> 10/16/24 1724 DD/ 172 TD/TT: 10/16/241722 Advanced Manager: [facility] External Provider IMG XR PROCEDURES Final Result * CT Cervical Spine w/o Contrast (10/16/2024 5:18 PM EDT) Anatomical Region Laterality Modality Spine, C-spine Computed Tomogra phy 10/16/2024 5:18 PM EDT Narrative 10/16/2024 5:19 PM EDT ? [facility] ?[address] ?[place] [address] ? CT Scan Report ? Signed ? Patient: Rhonda Fernández ?MR# ?? : [id number] ? : 1960 ?Acct:[id number] ? Age/Sex: 63 / F ?ADM Date: 10/16/24 ? Loc: HO.ED ? Attending Dr: ? Ordering Physician: Lanette Laura PA-C ?? Date of Service: 10/16/24 ?? Procedure(s): CT cervical spine wo IV con ?? Accession Number(s): [id number] ? cc: Zeinab Sykes MD; Lanette Laura PA-C ? Report Number: ?? [id number]: Total DLP = ??605.00 mGy-cm ? CLINICAL [...] by Melania Raza MD in OV> ? 10/16/249 ? DD/ 17 ? TD/TT: 10/16/241717 ? Advanced Manager: ? Procedure Note Donzacter, Image - 10/16/[address] [place] [address] [address] Scan Report Signed Patient: Karla Fernández# : [id number] : 1960Acct:[id number] Age/Sex: 63 / FADM Date: 10/16/24 Loc: HO.ED Attending Dr: Ordering Physician: Lanette Laura PA-C Date of Service: 10/16/24 Procedure(s): CT cervical spine wo IV con Accession Number(s): [id number] cc: Zeinab Sykes MD; Lanette Laura PA-C Report Number: [id number]: Total DLP = 605.00 mGy-cm CLINICAL HISTORY: [...] OV> 10/16/24 1719 DD/ 17 TD/TT: 10/16/241717 Advanced Manager: [facility] External Provider IMG CT PROCEDURES Final Result * (ABNORMAL) POCT HGB A1C (10/09/2024 12:03 PM EDT) Hemoglobin A1C 6.8(A) 4.0 - 6.0 % QC Media Lot # [id number] Lot# Expiration Date 120,526 Blood 10/09/2024 12:0 3 PM EDT Result [facility] Zeinab Sykes MD POINT OF CARE TEST ENTER /EDIT ORDERABLES Final Result * POCT Glucose (10/09/2024 11:58 AM EDT) Only the most recent of2 resultswithin the time period is included. Glucose Blood, POC 200 60 - 200 mg/dL QC Media Lot # [id number] Lot# Expiration Date 101,425 Blood Capillary blood specimen / Unknown 10/09/2024 11:58 AM EDT Result [facility] Zeinab Sykes MD POINT OF CARE TEST ENTER /EDIT ORDERABLES Final Result * Creatinine, Serum (09/18/2024 3:57 PM EST) Creatinine, Serum 1.01 0.5 - 1.4 mg/dL [facility] Estimated Glomerular Filt Rate 55 [facility] Comment:Chronic Kidney Disea se: Estimated GFR < 60 mL/min/1.04d1Sdkosm Kidney Disease: Estimated GFR < 15 mL/min/1.73m2 09/18/2024 3:57 PM EST 09/18/2024 3:57 PM EST Result [facility] Generic External Data Provider LAB BLOOD ORDERAB LES Final Result [facility] [address] [place] [address] [phone] * BUN (Blood Urea Nitrogen) (09/18/2024 3:57 PM EST) Urea Nitrogen (BUN) 13 9 - 16 mg/dL [facility] 09/18/2024 3:57 PM EST 09/18/2024 3:57 PM EST us Generic External Data Provider LAB BLOOD ORDERAB LES Final Result [facility] [address] [facility] [place] [address] [phone] * Polysomnography (09/11/2024) us Zeinab Sykes MD [facility] ORDERABLES Final Result * XR Chest 2 Views (08/22/2024 3:53 PM EST) Anatomical Region Laterality Modality Chest Radiographic Celia ging 08/22/2024 3:53 PM EST Narrative 08/22/2024 4:30 PM EST ?[facility] ?[address] ?[place] [address] ?XRay Report ? Signed ? Patient: Rhonda Fernández ?MR# ?? : [id number] ? : 1960 ?Acct:[id number] ? Age/Sex: 63 / F ?ADM Date: 08/22/24 ? Loc: HO.HHCX ? Attending Dr: Yonathan Snider MD ? Ordering Physician: Yonathan Snider MD ?? Date of Service: 08/22/24 ?? Procedure(s): XR chest 2V ?? Accession Number(s): [id number] ? cc: Yonathan Snider MD ? EXAMINATION: [...] DD/ 1553 ? TD/TT: 08/22/24 1600 ? Advanced Manager: RUTHY ? Procedure Note Donotuseinterpreter, Image - 08/22/2024 [facility] [address] [place] [address] XRay Report Signed Patient: Karla Fernández# : [id number] : 1960Acct:[id number] Age/Sex: 63 / FADM Date: 08/22/24 Loc: HO.HHCX Attending Dr: Yonathan Snider MD Ordering Physician: Yonathan Snider MD Date of Service: 08/22/24 Procedure(s): XR chest 2V Accession Number(s): [id number] cc: Yonathan Snider MD EXAMINATION: XR CHEST [...] 08/22/24 1627 DD/ 1553 TD/TT: 08/22/24 1600 Advanced Manager: RUTHY Yonathan Snider MD IMG XR PROCEDURES Edited Result - Final * Influenza B (ID NOW Rapid Molecular) (08/21/2024 5:37 PM EST) Only the most recent of3 resultswithin the time period is included. [facility] Influenza B Negative Negative, Indeterminate [facility] Swab 08/21/2024 5:37 PM EST Yonathan Snider MD POINT OF CARE TEST ENTER/EDIT OR DERABLES Final Result Performing Organization Address [facility]/ZIP Co de Phone Number [facility] [address] [place] [phone] * Influenza A (ID NOW Rapid Molecular) (08/21/2024 5:37 PM EST) Only the most recent of3 resultswithin the time period is included. [facility] Influenza A Negative Negative, Indeterminate [facility] Swab 08/21/2024 5:37 PM EST Yonathan Snider MD POINT OF CARE TEST ENTER/EDIT OR DERABLES Final Result Performing Organization Address [facility] Co de Phone Number [facility] [address] [place] [phone] * POCT Rapid COVID Ag (08/21/2024 5:10 PM EST) Only the most recent of3 resultswithin the time period is included. [facility] Rapid COVID Ag Negative Swab 08/21/2024 5:10 PM EST Yonathan Snider MD POINT OF CARE TEST ENTER/EDIT OR DERABLES Final Result * (ABNORMAL) Respiratory Viral Panel PCR (08/21/2024 2:25 PM EST) [facility] Adenovirus PCR Not Detected Not Detect. [facility] Bordetella pertussis PCR Not Detected Not Detect. [facility] Comment:Interpret results wi th caution. If B. pertussis isspecifically suspected, additional testing using analternate method is recommended. Bordetella parapertussis PCR Not Detected Not Detect. [facility] Chlamydia pneumoniae PCR Not Detected Not Detect. [facility] Coronavirus 229E PCR Not Detected Not Detect. [facility] Coronavirus HKU1 PCR Not Detected Not Detect. [facility] Coronavirus NL63 PCR Not Detected Not Detect. [facility] Coronavirus OC43 PCR Detected(A) Not Detect. [facility] SARS-CoV-2 PCR Not Detected Not Detect. [facility] Comment:SARS-CoV-2 not detec jocelyn by [...] A PCR Not Detected Not Detect. [facility] Influenza B PCR Not Detected Not Detect. [facility] Human metapneumovirus PCR Not Detected Not Detect. [facility] Rhino/Enterovirus PCR Not Detected Not Detect. [facility] Mycoplasma pneumoniae PCR Not Detected Not Detect. [facility] Parainfluenza 1 PCR Not Detected Not Detect. [facility] Parainfluenza 2 PCR Not Detected Not Detect. [facility] Parainfluenza 3 PCR Not Detected Not Detect. [facility] Parainfluenza 4 PCR Not Detected Not Detect. [facility] RSV PCR Not Detected Not Detect. [facility] Resp Panel NA Note See Note [facility] Comment:All results must be correlated [...] assay is performed by Multiplexed PCR, utilizing i[employer]This Array. 08/21/2024 2:25 PM EST 08/22/2024 2:39 PM EST Yonathan Snider MD LAB BLOOD ORDERABLES Final Resul t Performing Organization Address [facility]/ZIP Co de Phone Number [facility] [address] [place] [phone] * POCT Rapid RSV JI ID NOW (08/08/2024 5:54 PM EST) [facility] RSV Rapid Ag POC Negative Negative [facility] Swab 08/08/2024 5:54 PM EST Lia Martinez NP POINT OF CARE TEST ENTER/EDIT O RDERABLES Final Result Performing Organization Address [facility] de Phone Number [facility] [address] [place] [phone] * Pap Smear (06/01/2024 2:43 PM EST) 06/01/2024 2:43 PM EST 06/04/2024 9:25 AM EST Narrative [facility] - 06/20/2024 7:51 AM EST ----- ------- Name: Rhonda Fernández ? Age/Sex: 63/F ? : 1960 Unit#: [id number] ?? Attend Dr: Aisha Mcclain CNM ?Re06/01/24 ?Status: DEP REF ? Location: HO.LNP ?Disch: ? ----- ------- SPEC : [id number] ?RECD: 06/04/24 ? STATUS: ??SOUT ? REQ NUM: [id number] ? DARWIN: 06/01/24-1193 ? SUBM DR: Aisha Mcclain CNM ? [...] Copies To: ?? Zeinab Sykes MD ?? [facility] ?? [address] ?? [place] [address] ?? [phone] ?? Aisha Mcclain CNM ?? [facility] ?? [address] ?? [place] ?? [phone] ----- ------- Signed (signature on file) INDERJIT Bloom (ASCP) 06/20/24 0751 ? ----- ------- ? END OF REPORT ? us Generic External Data Provider LAB CYTOLOGY JERED STAFFORD Final Result [facility] [address] [facility] [place] [phone] [phone] * (ABNORMAL) Lipid Panel with Reflex to Direct LDL (01/06/2024 12:38 PM EDT) Triglycerides 91 <150 mg/dL [facility] Comment:Desirable Triglyceri de: less than 150 mg/dLBorderline High Triglyceride 150-199 mg/dLHigh Triglyceride: 200-499 mg/dLVery High Triglyceride: greater than or equal to 5OO mg/dL Cholesterol 211(H) <200 mg/dL [facility] Comment:Desirable Cholestero l: less than 200 mg/dLBorderline High Cholesterol: 200-239 mg/dLHigh Cholesterol: greater than 239 mg/dL LDL Cholesterol Calculated 132(H) <100 mg/dL [facility] Comment:Desirable LDL: less than 100 mg/dLNear Optimal/Above Optimal LDL: 110- 129 mg/dLBorderline High LDL: 130-159 mg/dLHigh LDL: 160-189 mg/dLVery High LDL: greater than or equal to 190 mg/dL HDL Cholesterol 61 >40 mg/dL [facility] Comment:Desirable HDL: great er than 40 mg/dL Note: This HDL assay may give artificially low results in patients with liver disease. Blood 01/06/2024 12:3 8 PM EDT 01/06/2024 4:21 PM EDT us Zeinab Sykes MD LAB BLOOD ORDERABLES Fin al Result [facility] [address] [place] [phone] * Hepatitis Panel, General (01/06/2024 12:38 PM EDT) Hepatitis A IgM Nonreactive Nonreactive [facility] Comment:IgM antibodies to GUERIN V not detected; does not exclude earlyacute or recovered HAV infection. ~Hepatitis B Surface Antibody REACTIVE Nonreactive [facility] Comment:REACTIVE: > 11.99 mI U/mL Hepatitis B Core Antibody Nonreactive Nonreactive [facility] Hepatitis C Antibody Nonreactive Nonreactive [facility] Comment:Antibodies to HCV no t detected; does not exclude early acuteHCV infection. Hepatitis B Surface Ag Negative Negative [facility] Blood 01/06/2024 12:3 8 PM EDT 01/06/2024 4:21 PM EDT Zeinab Sykes MD LAB BLOOD ORDERABLES Fin al Result Performing Organization Address [facility] Co de Phone Number [facility] [address] [place] [phone] * HIV-1/2 Antigen and Antibodies, Fourth Generation, with Reflexes (01/06/2024 12:38 PM EDT) [facility] Signature HIV AB/AG Nonreactive Nonreactive [facility] Comment:HIV-1 p24 Ag and/or HIV-1/HIV-2 Ab not detected.A test result that is nonreactive does not exclude thepossibility of exposure to or infection with HIV-1 and/orHIV-2. Nonreactive results in this assay for individualswith prior exposure to HIV-1 and/or HIV-2 may be due toantigen and antibody levels that are below the limit ofdetection of this assay.The Smash Bucket HIV Ag/Ab Combo assay result andsupplemental assay results should be interpreted inconjunction with the patient's clinical presentation,history and other laboratory results. If the results areinconsistent with clinical evidence, additional testing issuggested to confirm the result. Blood Venous blood specimen / Unknown 01/06/2024 12:38 PM EDT 01/06/2024 4:21 PM EDT us Zeinab Sykes MD LAB BLOOD ORDERABLES Fin al Result Performing Organization Address City/[facility] Co de Phone Number [facility] [address] [place] [phone] * Mammography Report 1 (03/15/2022 5:00 PM EDT) Anatomical Region Laterality Modality Breast Bilateral Mammography 03/15/2022 5:00 PM EDT Narrative 03/16/2022 8:33 AM EDT Refer to the Notes tab for result details [facility] Procedure: Mammography Report 1 Procedure Note ProviderParag MD - 10/10/2022 Refer to the Notes tab for result details [facility] Procedure: Mammography Report 1 Evelyn Ledesma CLINICAL INVESTIGATOR IMG BI PROCEDURES Final Re sult * [...] Creatinine, Urine 244 20 - 275 mg/dL [facility] 03/08/2022 3:04 PM EDT Rebekah Guevara VACUUM FORMING MACHINE OPERATOR LAB URINE ORDERABLES Final Res ult [facility] [address] * Hm Colonoscopy (11/05/2020 11:36 AM EDT) Historical Provider HEALTH MAINTENANCE Final Result * HPV mRNA E6/E7 (07/07/2020 12:00 AM EST) HPV nRNA E6/E7 Not Detected Not Detected [facility] Comment: This test was performed using the APTIMA HPV Assay ([employer] This assay detects E6/E7 viral messenger RNA (mRNA) from 14 high-risk HPV types (16,18,31,33,35,39,45,51,52,56,58,59,66,68). ?? The analytical performance characteristics of this assay have been determined by [facility]. The modifications have not been cleared or approved by the FDA. This assay has been validated pursuant to the CLIA regulations and is used for clinical purposes. 07/07/2020 us Historical Provider LAB BLOOD ORDERABLES Sera hayes Result [facility] [address] from Last 3 Months or Most Recently Relevant to Health Maintenance Insurance [place] [address] [place] [id number] D[facility]AL-[facility] MEDICAID STAND ADULT Care Teams Video Editing Intern Relationship Specialty Start Date End Date Zeinab Sykes MD [address] [place] [address] PCP - General Internal Medicine 01/02/24 Tomeka Martins TeletypesetterMarketing Communications Leader 10/27/23
--- OUTSIDE RECORDS SUMMARY | 2024-11-01 14:39 | XMS_ITS | Continuity of Care Document ---
Author Organization [facility] Address [address] [place] [phone] Phone Care Team Providers Care Compensation Programs Manager Name Role Phone Waldo MADDOX FACS RVT Shiraz CHERY Unavailable Unavailable Allergies, Adverse Reactions, Alerts Substance Reaction Status Criticality latex Active No Information Medications Medication Instructions Dosage Effective Dates (start - stop) Status Comments lidocaine-prilocaine 2.5 %-2.5 % topical cream apply 2 hours before procedures for Pain - Active Procedures Procedure Date Office/Outpt E&M Established 15 Mins Oct Duplex Scan-extrem Veins; [facility]/ 23 Endovenous Laser, 1st Vein [...] E&M Established 15 Mins [facility], [address] [place] [address] Dr [address]Pradeep [place], [id number], [place] tel:[phone] [facility] Venous insufficiency (chronic) (peripheral) 3 Waldo MADDOX FACS RVT MIRI Rapp. [address] [place] [address], [place], [address], [place]. tel:[phone] Referring Provider: Rebekah Guevara, [address] [place], [address]. tel:[phone] [facility] MD PHILLIPS, [address] [place] [address] [address]Pradeep [place], [id number], [place] tel:[phone] [facility] [place] [facility] [place] Encntr for f/u exam aft trtmt for cond oth than malig neoplmVenous insufficiency (chronic) (peripheral) 3 Waldo MADDOX FACS RVT MIRI Rapp. [address] [place] [address], [place], [address], [place]. tel:[phone] Referring Provider: Rebekah Guevara, [address] [place] [address], [address]. tel:[phone] [facility], [address] [place] [address] [address]Pradeep [place], [id number], [place] tel:[phone] [facility] [place] [facility] [place] Venous insufficiency (chronic) (peripheral) 3 Waldo MADDOX FACS RVT MIRI Rapp. [address] [place] [address], [place], [address], [place]. tel:[phone] Referring Provider: Rebekah Guevara, [address] [place] [address], [address]. tel:[phone] [facility] MD PHILLIPS, [address] [place] [address] [address]Pradeep [place], [id number], [place] tel:[phone] [facility] [place] [facility] [place] Venous insufficiency (chronic) (peripheral) 3 Waldo MADDOX FACS RVT MIRI Rapp. [address] [place] [address], [place] [address], [place], [address], [place]. tel:[phone] Referring Provider: Rebekah Guevara, [address] [place], [address]. tel:[phone] [facility], [address] [place] [address] [address]Pradeep [place], [id number], [place] tel:[phone] [facility] [place] [facility] [place] No Information 3 Waldo Rapp. [address] [facility], [address] [facility], [place], [address], [place]. tel:[phone] Referring Provider: Rebekah Guevara, [address] [place] [address], [address]. tel:[phone] [facility], [address] [place] [address] [address]Pradeep [place], [id number], [place] tel:[phone] [facility] [place] [facility] [place] Encntr for f/u exam aft trtmt for cond oth than malig neoplmVenous insufficiency (chronic) (peripheral) 3 Waldo Rapp. [address] [place] [address], [place] [address], [place], [address], [place]. tel:[phone] Referring Provider: Rebekah Guevara, [address] [place] [address], [address]. 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 [address] [place] [address], [facility] [address], [place], [address], [place]. tel:[phone] Referring Provider: Rebekah Guevara, [address] [place], [address]. tel:[phone] [facility] MD PHILLIPS, [address] [place] [address] [address]Pradeep [place], [id number], [place] tel:[phone] [facility] [place] [facility] [place] Venous insufficiency (chronic) (peripheral) 3 Waldo Rapp. [facility] [facility], [address], [place], [address], [place]. [phone] Referring Provider: Rebekah Guevara, [address] [place], [address]. tel:[phone] Family History Family Member Type Diagnosis Age At Onset No Information Payers Payer name Insurance type Covered republican ID Authorlitzy funes(s) Medical Assistance DANIEL [id number] Social History Type Description Quantity Date Captured [...]
--- OUTSIDE RECORDS SUMMARY | 2024-11-01 14:39 | XMS_ITS | Encounter Summary ---
Author Organization [employer] [facility] Address [address] [place] [address] 7 [place] [address] Care Team Providers Care Chute Builder Name Role Phone Evelyn Ledesma Primary Care Provider [phone] Oralia Aguila MD Primary Care Provider [phone] Zeinab Sykes MD Primary Care Provider + Reason for Visit * Reason Onset Date Comments Referral 02/03/2023 Renewal Encounter Details Date Type Department Care Team (Late st Contact Info) Description 02/03/2023 Telephone [facility] [address] [place] [address] Evelyn Ledesma FNP [address] [place] [address] Dept [place] [address] Referral (Renewal ) Social History Tobacco Use [...] Info) Description 11/16/2024 11:00 AM EDT Nutrition [facility] DIABETES/NUTRITION [address] [place] [address] Juana Gusman, MONICA [address] [place] [address] 01/04/2025 11:00 AM EDT Office Visit [facility] ADULT DENTAL [address] [place] [address] Mykel, Fabi [address] [place] [address] 01/10/2025 12:00 PM EDT Office Visit [facility] [address] [place] [address] Zeinab Sykes MD [address] [place] [address] 01/22/2025 11:00 AM EDT Office Visit [facility] [address] [place] [address] documented as of this encounter Goals Goal Patient Goal Type Associated Problems Recent Progress Patient-Stated? Author Patient will manage their medication General On track( 023 11:18 AM EDT) Citlali Ocampo, PharmD Note: Began medboxes. Goal achieved 11/19/22. Patient graduated from [facility]. documented as of this encounter Visit Diagnoses Not on filedocumented in this encounter Care Teams Chute Builder Relationship Specialty Start Date End Date Evelyn Ledesma FNP PCP - General Family Medicine 03/15/22 04/25/23 Oralia Aguila MD [address] [place] [address] PCP - General Family Medicine 04/26/23 01/01/24 Zeinab Sykes MD [address] [place] [address] PCP - General Internal Medicine 01/02/24 Tomeka Martins Butadiene Convertor OperatorBurrito Maker 10/27/23 documented as of this encounter
--- OUTSIDE RECORDS SUMMARY | 2024-11-01 14:39 | XMS_ITS | Encounter Summary ---
Author Organization [employer] Address [address] [facility] 7[address] [place] [address] Care Team Providers Care Penology Teacher Name Role Phone Evelyn Ledesma Primary Care Provider [phone] Oralia Aguila MD Primary Care Provider [phone] Zeinab Sykes MD Primary Care Provider + Reason for Visit * Reason Onset Date Comments case from lab 11/04/2022 Encounter Details Date Type Department Care Team (Late st Contact Info) Description 11/04/2022 Telephone [facility] ADULT DENTAL [address] [place] [address] Asad Shore DDS [address] [place] [address] case from lab Social History Tobacco Use [...] Info) Description 11/16/2024 11:00 AM EDT Nutrition [facility] DIABETES/NUTRITION [address] [place] [address] [place] [address] 01/04/2025 11:00 AM EDT Office Visit [facility] ADULT DENTAL [address] [place] [address] Mykel, Fabi [address] [place] [address] 01/10/2025 12:00 PM EDT Office Visit [facility] MEDICINE [address] [place] [address] Zeinab Sykes MD [address] [place] [address] 01/22/2025 11:00 AM EDT Office Visit [facility] MEDICINE [address] [place] [address] documented as of this encounter Visit Diagnoses Not on filedocumented in this encounter Care Teams Penology Teacher Relationship Specialty Start Date End Date Evelyn Ledesma FNP PCP - General Family Medicine 03/15/22 04/25/23 Oralia Aguila MD [address] [place] [address] PCP - General Family Medicine 04/26/23 01/01/24 Zeinab Sykes MD [address] [place] [address] [place] [address] PCP - General Internal Medicine 01/02/24 Tomeka Martins Running InstructorRetail Sales Merchandiser 10/27/23 documented as of this encounter
--- OUTSIDE RECORDS SUMMARY | 2024-11-01 14:39 | XMS_ITS | Encounter Summary ---
Author Organization [employer] [facility] Address [address] [place] [address] 7[address] [place] [address] Care Team Providers Care Intermodal Dispatcher Name Role Phone Evelyn Ledesma Primary Care Provider [phone] Oralia gAuila MD Primary Care Provider [phone] Zeinab Sykes MD Primary Care Provider + Encounter Details Date Type Department Care Team (Late Contact Info) Description 08/20/2022 Orders Only [facility] [address] [place], [place] [phone] Karen Henderson FNP Social History Tobacco Use [...] Department Care Team (Late Contact Info) Description 11/16/2024 11:00 AM EDT Nutrition [facility] DIABETES/NUTRITION [address] [place], [place] [phone] Juana Gusman, MONICA [address] [place] [address] 01/04/2025 11:00 AM EDT Office Visit [facility] ADULT DENTAL [address] [place] [address] Fabi Hogue [address] [place] [address] 01/10/2025 12:00 PM EDT Office Visit [facility] [address] [place] [address] Zeinab Sykes MD [address] [place] [address] 01/22/2025 11:00 AM EDT Office Visit [facility] [address] [place] [address] documented as of this encounter Visit Diagnoses Not on filedocumented in this encounter Care Teams Intermodal Dispatcher Relationship Specialty Start Date End Date Evelyn Ledesma FNP PCP - General Family Medicine 03/15/22 04/25/23 Oralia Aguila MD [address] [place] [address] PCP - General Family Medicine 04/26/23 01/01/24 Zeinab Sykes MD [address] [place] [address] PCP - General Internal Medicine 01/02/24 Tomeka Martins Head Of DigitalSupervisor Conditioning Yard 10/27/23 documented as of this encounter
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
--- OUTSIDE RECORDS SUMMARY | 2024-11-01 14:39 | XMS_ITS | Encounter Summary ---
Author Organization [employer] Address [address] [facility] 7t [place] [address] Care Team Providers Care Mobile Homes Repairer Name Role Phone Zeinab Sykes MD Primary Care Provider + Reason for Visit * Reason Comments Med Refill Encounter Details Date Type Department Care Team ([facility] st Contact Info) Description 05/04/2024 Refill [facility] MEDICINE [address] [place], [place] [phone] Zeinab Sykes MD 230 [place] [address] Other intervertebral disc displacement, lumbar region Social [...] Info) Description 11/16/2024 11:00 AM EDT Nutrition [facility] DIABETES/NUTRITION [address] [place] [address] Juana Gusman, MONICA [address] [place] [address] 01/04/2025 11:00 AM EDT Office Visit [facility] ADULT DENTAL [address] [place] [address] Mykel, Fabi [address] [place] [address] 01/10/2025 12:00 PM EDT Office Visit [facility] MEDICINE [address] [place] [address] Zeinab Sykes MD [address] [place] [address] 01/22/2025 11:00 AM EDT Office Visit [facility] MEDICINE [address] [place] [address] documented as of this encounter Goals Goal Patient Goal Type Associated Problems Recent Progress Patient-Stated? Author Patient will manage their medication General On track( 023 11:18 AM EDT) No Citlali Armando, PharmCatrachita Note: Began medboxes. Goal achieved 11/19/22. Patient graduated from [facility]. documented as of this encounter Visit Diagnoses Diagnosis Other intervertebral disc displacement, lumbar region documented in this encounter Additional Health Concerns Assessment Noted Time PHQ-9 Depression Total Score: 18 024 1:46 PM EDT documented as of this encounter Care Teams Mobile Homes Repairer Relationship Specialty Start Date End Date Zeinab Sykes MD [address] [place] [address] PCP - General Internal Medicine 01/02/24 Tomeka Martins Mortician Supplies Sales RepresentativeAppliance Sales Associate 10/27/23 documented as of this encounter
--- OUTSIDE RECORDS SUMMARY | 2024-11-01 14:39 | XMS_ITS | Encounter Summary ---
Author Organization [employer] Address [address] [place] [address] 7t [place] [address] Care Team Providers Care Artificial Snow Making Machine Operator Name Role Phone Evelyn Ledesma Primary Care Provider [phone] Oralia Aguila MD Primary Care Provider [phone] Zeinab Sykes MD Primary Care Provider + Reason for Visit * Reason Onset Date Comments medical clearance 02/11/2023 Encounter Details Date Type Department Care Team (Late st Contact Info) Description 02/11/[address] [facility] CHC ADULT DENTAL [address] [place] [address] [place] DDS [address] [place] [address] medical clearance Social History Tobacco Use Types [...] Info) Description 11/16/2024 11:[address] [facility] DIABETES/NUTRITION [address] [place] [address] [place] [address] 01/04/2025 11:00 AM EDT Office Visit [facility] ADULT DENTAL [address] [place] [address] Mykel, Fabi [address] [place] [address] 01/10/2025 12:00 PM EDT Office [facility] MEDICINE [address] [place] [address] Zeinab Sykes MD 230 [place] [address] 01/22/2025 11:00 AM EDT Office [facility] MEDICINE [address] [place] [address] documented as of this encounter Goals Goal Patient Goal Type Associated Problems Recent Progress Patient-Stated? Author Patient will manage their medication General On track( 023 11:18 AM EDT) Citlali Ocampo, PharmD Note: Began medboxes. Goal achieved 11/19/22. Patient graduated from [facility]. documented as of this encounter Visit Diagnoses Not on filedocumented in this encounter Care Teams Artificial Snow Making Machine Operator Relationship Specialty Start Date End Date Evelyn Ledesma FNP PCP - General Family Medicine 03/15/22 04/25/23 Oralia Aguila MD [address] [place] [address] PCP - General Family Medicine 04/26/23 01/01/24 Zeinab Sykes MD [address] [place] [address] PCP - General Internal Medicine 01/02/24 Tomeka Martins Review ManagerCharter Boat Captain 10/27/23 documented as of this encounter
--- OUTSIDE RECORDS SUMMARY | 2024-11-01 14:39 | XMS_ITS | Encounter Summary ---
Author Organization [employer] [facility] Address [address] [place] [address] 7t [place] [address] Care Team Providers Care Home Restoration Service Supervisor Name Role Phone Evelyn Ledesma Primary Care Provider [phone] Oralia Aguila MD Primary Care Provider [phone] Zeinab Sykes MD Primary Care Provider + Reason for Visit * Reason Onset Date Comments Prior Authorization 12/28/2022 Encounter Details Date Type Department Care Team (Late st Contact Info) Description 12/28/2022 Telephone [facility] MEDICINE [address] [place] [address] Evelyn Ledesma FNP [address] [place] [address] Dept [place] [address] Prior Authorization Social History Tobacco Use Types [...] AM EDT T/C placed to pt via [employer] Blower And Compressor Assembler Zeinab #[id number]. Advised of message from pcp re: lab [...] all other NSAIDS. Do you have a information resources director yet? If not, your PCP would like [...] 12/28/2022 10:18 AM EDT THOMAS Emery from [facility] requesting XL pull ups and disposable under pads . States faxed request couple days ago and have not gotten a response . Informs paper work 12/29/22. Please call to clarify at phone # [phone] . documented in this encounter Plan of Treatment Upcoming Encounters Date Type Department Care Team (Late st Contact Info) Description 11/16/2024 11:00 AM EDT Nutrition [facility] DIABETES/NUTRITION [address] [place], [place] [phone] Juana Gusman, RD [address] [place] [address] 01/04/2025 11:00 AM EDT Office Visit [facility] ADULT DENTAL [address] [place] [address] Ruben Hoguearis [address] [place] [address] 01/10/2025 12:00 PM EDT Office Visit [facility] MEDICINE [address] [place] [address] Zeinab Sykes MD 230 [place] [address] 01/22/2025 11:00 AM EDT Office Visit [facility] MEDICINE [address] [place] [address] documented as of this encounter Goals Goal Patient Goal Type Associated Problems Recent Progress Patient-Stated? Author Patient will manage their medication General On track( 023 11:18 AM EDT) Citlali Ocampo, PharmCatrachita Note: Began medboxes. Goal achieved 11/19/22. Patient graduated from [facility]. documented as of this encounter Visit Diagnoses Not on filedocumented in this encounter Care Teams Home Restoration Service Supervisor Relationship Specialty Start Date End Date Evelyn Ledesma FNP PCP - General Family Medicine 03/15/22 04/25/23 Oralia Aguila MD [address] [place] [phone] PCP - General Family Medicine 04/26/23 01/01/24 Zeinab Sykes MD [address] [place] [phone] PCP - General Internal Medicine 01/02/24 Tomeka Martins Survey Cad TechnicianLicensed Massage Therapist 10/27/23 documented as of this encounter
--- OUTSIDE RECORDS SUMMARY | 2024-11-01 14:39 | XMS_ITS | Encounter Summary ---
Author Organization [employer] Address [address] [facility] 7t [place] [address] Care Team Providers Care Roller Bearing Inspector Name Role Phone Zeinab Sykes MD Primary Care Provider + Reason for Visit * Reason Onset Date Comments FYI 10/30/2024 Encounter Details Date Type Department Care Team ([facility] st Contact Info) Description 10/30/2024 Telephone [facility] MEDICINE 230 [place], [place] [phone] Zeinab Sykes MD 230 [place] [address] FYI Social History Tobacco Use Types Packs/Day Years [...] Encounter - Fany Mary RN - 10/30/2024 10:15 AM EDT Noted * Telephone Encounter - Nolvia Alcazar - 10/30/2024 10:05 AM EDT Tc from [place] with Tj hernández calling to inform start of services isn't till 11/06/24 due to pt request. documented in this encounter Plan of Treatment Upcoming Encounters Date Type Department Care Team (Late st Contact Info) Description 11/16/2024 11:00 AM EDT Nutrition [facility] DIABETES/NUTRITION [address] [place] [address] Juana Gusman, RD [address] [place], [place] [phone] 01/04/2025 11:00 AM EDT Office Visit [facility] ADULT DENTAL [address] [place] [address] Mykel, Fabi [address] [place] [address] 01/10/2025 12:00 PM EDT Office Visit [facility] MEDICINE [address] [place] [address] Zeinab Sykes MD [address] [place] [address] 01/22/2025 11:00 AM EDT Office Visit [facility] MEDICINE [address] [place] [address] documented as of this encounter Goals Goal Patient Goal Type Associated Problems Recent Progress Patient-Stated? Author Patient will manage their medication General On track( 023 11:18 AM EDT) Citlali Ocampo, PharmCatrachita Note: Began medboxes. Goal achieved 11/19/22. Patient graduated from [facility]. documented as of this encounter Visit Diagnoses Not on filedocumented in this encounter Additional Health Concerns Assessment Noted Time PHQ-9 Depression Total Score: 22 025 10:31 AM EST documented as of this encounter Care Teams Roller Bearing Inspector Relationship Specialty Start Date End Date Zeinab Sykes MD [address] [place] [address] PCP - General Internal Medicine 01/02/24 Tomeka Martins Donor Services ManagerTitle Specialist 10/27/23 documented as of this encounter"
--- OUTSIDE RECORDS SUMMARY | 2024-11-01 14:40 | XMS_ITS | Encounter Summary ---
Author Organization [employer] [facility] Address [address] [place] [address] 7t [place] [address] Care Team Providers Care Software Test And Validation Engineer Name Role Phone Oralia Aguila MD Primary Care Provider [phone] Zeinab Sykes MD Primary Care Provider + Reason for Visit * Reason Onset Date Comments Med Refill 05/05/2023 Encounter Details Date Type Department Care Team (Late st Contact Info) Description 05/05/[address] [facility] MEDICINE [address] [place], [place] [phone] Oralia Aguila MD 230 [place], [place] [phone] Other intervertebral disc displacement, lumbar region Social [...] 5- 325 MG tablet to besent to [facility] - [place], [place] - [address] [facility] documented in this encounter Plan of Treatment Upcoming Encounters Date Type Department Care Team (Late st Contact Info) Description 11/16/2024 11:00 AM EDT Nutrition [facility] DIABETES/NUTRITION [address] [place] [address] Juana Gusman, MONICA [address] [place] [address] 01/04/2025 11:00 AM EDT Office Visit [facility] ADULT DENTAL [address] [place] [address] Mykel, Fabi [address] [place] [address] 01/10/2025 12:00 PM EDT Office Visit [facility] MEDICINE [address] [place] [address] Zeinab Sykes MD [address] [place] [address] 01/22/2025 11:00 AM EDT Office Visit [facility] MEDICINE [address] [place] [address] documented as of this encounter Goals Goal Patient Goal Type Associated Problems Recent Progress Patient-Stated? Author Patient will manage their medication General On track( 023 11:18 AM EDT) Citlali Ocampo, PharmD Note: Began medboxes. Goal achieved 11/19/22. Patient graduated from [facility]. documented as of this encounter Visit Diagnoses Diagnosis Other intervertebral disc displacement, lumbar region documented in this encounter Care Teams Software Test And Validation Engineer Relationship Specialty Start Date End Date Oralia Aguila MD [address] [place] [address] PCP - General Family Medicine 04/26/23 01/01/24 Zeinab Sykes MD [address] [place] [address] PCP - General Internal Medicine 01/02/24 Tomeka Martins Oceanography ProfessorSignal Worker Helper 10/27/23 documented as of this encounter
--- OUTSIDE RECORDS SUMMARY | 2024-11-01 14:40 | XMS_ITS | Encounter Summary ---
Author Organization [employer] [facility] Address [address] [place] [address] 7 [place] [address] Care Team Providers Care Steam Distribution Supervisor Name Role Phone Evelyn Ledesma Primary Care Provider [phone] Oralia Aguila MD Primary Care Provider [phone] Zeinab Sykes MD Primary Care Provider + Reason for Visit * Reason Comments Med Refill Encounter Details Date Type Department Care Team (Late Contact Info) Description 02/05/2023 Refill [facility] MEDICINE [address] [place] [address] Evelyn Ledesma FNP [address] [place] [address] Dept [place] [address] Neuropathy Social History Tobacco Use Types Packs/Day [...] Info) Description 11/16/2024 11:00 AM EDT Nutrition [facility] DIABETES/NUTRITION [address] [place] [address] [place] [address] 01/04/2025 11:00 AM EDT Office Visit [facility] ADULT DENTAL [address] [place] [address] Ruben Hoguearis [address] [place] [address] 01/10/2025 12:00 PM EDT Office Visit [facility] MEDICINE [address] [place] [address] Zeinab Sykes MD 230 [place] [address] 01/22/2025 11:00 AM EDT Office Visit [address] [address] documented as of this encounter Goals Goal Patient Goal Type Associated Problems Recent Progress Patient-Stated? Author Patient will manage their medication General On track( 023 11:18 AM EDT) Citlali Ocampo, PharmD Note: Began medboxes. Goal achieved 11/19/22. Patient graduated from [facility]. documented as of this encounter Visit Diagnoses Diagnosis Neuropathy Mononeuritis of unspecified site documented in this encounter Care Teams Steam Distribution Supervisor Relationship Specialty Start Date End Date Evelyn Ledesma FNP PCP - General Family Medicine 03/15/22 04/25/23 Oralia Aguila MD [address] [place] [address] PCP - General Family Medicine 04/26/23 01/01/24 Zeinab Sykes MD [address] [place] [address] PCP - General Internal Medicine 01/02/24 Tomeka Martins Student Ministries DirectorSpearer 10/27/23 documented as of this encounter
--- OUTSIDE RECORDS SUMMARY | 2024-11-01 14:40 | XMS_ITS | Encounter Summary ---
Author Organization [employer] [facility] Address [address] [place] [address] 7t [place] [address] Care Team Providers Care Ribbon Blocker Name Role Phone Baltazar Evelyn EDWARDS Primary Care Provider [phone] Oralia Aguila MD Primary Care Provider [phone] Zeniab Sykes MD Primary Care Provider + Encounter Details Date Type Department Care Team (Latest Contact Info) Description 10/30/2020 Abstract [facility] CONVERSIONS Dental, Provider, DDS Social History [...] 11/16/2024 11:00 AM EDT Nutrition [facility] DIABETES/NUTRITION [address] [place] [address] Juana Gusman, MONICA [address] [place], [place] [phone] 01/04/2025 11:00 AM EDT Office Visit [facility] ADULT DENTAL [address] [place] [address] Fbai Hogue [address] [place] [address] 01/10/2025 12:00 PM EDT Office Visit [facility] MEDICINE [address] [place] [address] Zeinab Sykes MD [address] [place] [address] 01/22/2025 11:00 AM EDT Office Visit [address] [address] documented as of this encounter Visit Diagnoses Not on filedocumented in this encounter Care Teams Ribbon Blocker Relationship Specialty Start Date End Date Evelyn Ledesma FNP PCP - General Family Medicine 03/15/22 04/25/23 Oralia Aguila MD [address] [place] [address] PCP - General Family Medicine 04/26/23 01/01/24 Zeinab Sykes MD [address] [place] [address] PCP - General Internal Medicine 01/02/24 Tomeka Martins Open Hearth Furnace LaborerLead Front Desk Agent 10/27/23 documented as of this encounter
--- OUTSIDE RECORDS SUMMARY | 2024-11-01 14:40 | XMS_ITS | Encounter Summary ---
Author Organization [facility] Address [address] [place] [address] 7t [place] [address] Care Team Providers Care Supervisor Mold Yard Name Role Phone Oralia Aguila MD Primary Care Provider [phone] Zeinab Sykes MD Primary Care Provider + Reason for Visit * Reason Comments Med Refill Encounter Details Date Type Department Care Team (Late Contact Info) Description 08/09/2023 Refill [facility] MEDICINE 230 [place], [place] [phone] Oralia Aguila MD [address] [place], [place] [phone] Other intervertebral disc displacement, lumbar region Social [...] Info) Description 11/16/2024 11:00 AM EDT Nutrition [facility] DIABETES/NUTRITION 230 [place], [place] [phone] Juana Gusman RD [address] [place], [place] [phone] 01/04/2025 11:00 AM EDT Office Visit [facility] ADULT DENTAL [address] [place], [place] [phone] Fabi Hogue [address] [place], [place] [phone] 01/10/2025 12:00 PM EDT Office Visit [facility] MEDICINE [address] [place] [address] [phone] Zeinab Sykes MD [address] [place], [place] [phone] 01/22/2025 11:00 AM EDT Office Visit [facility] MEDICINE [address] [place] [address] [phone] documented as of this encounter Goals Goal Patient Goal Type Associated Problems Recent Progress Patient-Stated? Author Patient will manage their medication General On track( 023 11:18 AM EDT) Citlali Ocampo, PharmD Note: Began medboxes. Goal achieved 11/19/22. Patient graduated from [facility]. documented as of this encounter Visit Diagnoses Diagnosis Other intervertebral disc displacement, lumbar region documented in this encounter Care Teams Supervisor Mold Yard Relationship Specialty Start Date End Date Oralia Aguila MD [address] [place] [address] PCP - General Family Medicine 04/26/23 01/01/24 Zeinab Sykes MD [address] [place] [address] PCP - General Internal Medicine 01/02/24 Tomeka Martins Block PilerReal Estate Attorney 10/27/23 documented as of this encounter
--- OUTSIDE RECORDS SUMMARY | 2024-11-01 14:40 | XMS_ITS | Encounter Summary ---
Author Organization [employer] [facility] Address [address] [place] [address] 7t [place] [address] Care Team Providers Care Od Grinder Operator Name Role Phone Baltazar Evelyn EDWARDS Primary Care Provider [phone] Oralia Aguila MD Primary Care Provider [phone] Zeinab Sykes MD Primary Care Provider + Encounter Details Date Type Department Care Team (Latest Contact Info) Description 12/21/2018 Abstract [facility] CONVERSIONS Dental, Provider, DDS Social [...] Care Team ( st Contact Info) Description 11/16/2024 11:00 AM EDT Nutrition [facility] DIABETES/NUTRITION 230 [place] [address] Juana Gusman, MONICA [address] [place] [address] 01/04/2025 11:00 AM EDT Office Visit [facility] ADULT DENTAL [address] [place] [address] Fabi Hogue [address] [place] [address] 01/10/2025 12:00 PM EDT Office Visit [facility] MEDICINE [address] [place] [address] Zeinab Sykse MD [address] [place] [address] 01/22/2025 11:00 AM EDT Office Visit [address] [address] documented as of this encounter Visit Diagnoses Not on filedocumented in this encounter Care Teams Od Grinder Operator Relationship Specialty Start Date End Date Evelyn Ledesma FNP PCP - General Family Medicine 03/15/22 04/25/23 Oralia Aguila MD [address] [place] [address] PCP - General Family Medicine 04/26/23 01/01/24 Zeinab Sykes MD [address] [place] [address] PCP - General Internal Medicine 01/02/24 Tomeka Martins Outside Machinist ApprenticeOffice Spec 10/27/23 documented as of this encounter
--- OUTSIDE RECORDS SUMMARY | 2024-11-01 14:40 | XMS_ITS | Encounter Summary ---
Author Organization [facility] Address [address] [place] [address] 7t [place] [address] Care Team Providers Care Printer Apprentice Name Role Phone Oralia Aguila MD Primary Care Provider [phone] Zeinab Sykes MD Primary Care Provider + Reason for Visit * Reason Comments Med Refill Encounter Details Date Type Department Care Team (Late Contact Info) Description 09/21/2023 Refill [facility] MEDICINE 230 [place], [place] [phone] Oralia Aguila MD 230 [place], [place] [phone] Neuropathy Social History Tobacco Use Types Packs/Day [...] 11/16/2024 11:00 AM EDT Nutrition [facility] DIABETES/NUTRITION 230 [place], [place] [phone] Juana Gusman RD 230 [place], [place] [phone] 01/04/2025 11:00 AM EDT Office Visit [facility] ADULT DENTAL 230 [place] [address] Fabi Hogue [address] [place] [address] 01/10/2025 12:00 PM EDT Office Visit [facility] MEDICINE [address] [place] [address] Zeinab Sykes MD 230 [place] [address] 01/22/2025 11:00 AM EDT Office Visit [facility] MEDICINE [address] [place] [address] documented as of this encounter Goals Goal Patient Goal Type Associated Problems Recent Progress Patient-Stated? Author Patient will manage their medication General On track( 023 11:18 AM EDT) Citlali Ocampo, PharmD Note: Began medboxes. Goal achieved 11/19/22. Patient graduated from [facility]. documented as of this encounter Visit Diagnoses Diagnosis Neuropathy Mononeuritis of unspecified site documented in this encounter Care Teams Printer Apprentice Relationship Specialty Start Date End Date Oralia Aguila MD [address] [place] [address] PCP - General Family Medicine 04/26/23 01/01/24 Zeinab Sykes MD [address] [place] [address] PCP - General Internal Medicine 01/02/24 Tomeka Martins Law InstructorTrestle Mainternance Laborer 10/27/23 documented as of this encounter
--- OUTSIDE RECORDS SUMMARY | 2024-11-01 14:40 | XMS_ITS | Encounter Summary ---
Author Organization [employer] [facility] Address [address] [place] [address] 7t [place] [address] Care Team Providers Care R&D Engineer Name Role Phone Zeinab Sykes MD Primary Care Provider + Reason for Visit * Reason Onset Date Comments Med Refill 07/16/2024 Encounter Details Date Type Department Care Team ([facility] st Contact Info) Description 07/16/2024 Telephone [facility] MEDICINE 230 [place], [place] [phone] Zeinab Sykes MD 230 [place], [place] [phone] Med Refill Social History Tobacco Use Types [...] 10 MG capsule To be sent to: [facility] pharmacy documented in this encounter Plan of Treatment Upcoming Encounters Date Type Department Care Team (Late st Contact Info) Description 11/16/2024 11:00 AM EDT Nutrition [facility] DIABETES/NUTRITION 230 [place], [place] [phone] Juana Gusman RD 230 [place], [place] [phone] 01/04/2025 11:00 AM EDT Office Visit [facility] ADULT DENTAL [address] [place] [address] Fabi Hogue [address] [place] [address] 01/10/2025 12:00 PM EDT Office Visit [facility] MEDICINE [address] [place] [address] Zeinab Sykes MD [address] [place] [address] 01/22/2025 11:00 AM EDT Office Visit [address] [address] documented as of this encounter Goals Goal Patient Goal Type Associated Problems Recent Progress Patient-Stated? Author Patient will manage their medication General On track( 023 11:18 AM EDT) Citlali Ocampo, PharmCatrachita Note: Began medboxes. Goal achieved 11/19/22. Patient graduated from [facility]. documented as of this encounter Visit Diagnoses Not on filedocumented in this encounter Additional Health Concerns Assessment Noted Time PHQ-9 Depression Total Score: 18 024 1:46 PM EDT documented as of this encounter Care Teams R&D Engineer Relationship Specialty Start Date End Date Zeinab Sykes MD [address] [place] [address] PCP - General Internal Medicine 01/02/24 Tomeka Martins Supervisor Coal HandlingAssistant Guest Services Manager 10/27/23 documented as of this encounter
--- OUTSIDE RECORDS SUMMARY | 2024-11-01 14:40 | XMS_ITS | Encounter Summary ---
Author Organization [facility] Address [address] [place] [address] 7t [place] [address] Care Team Providers Care Wiper Blender Name Role Phone Oralia Aguila MD Primary Care Provider [phone] Zeinab Sykes MD Primary Care Provider + Reason for Visit * Reason Onset Date Comments antibiotics pre med 07/19/2023 Encounter Details Date Type Department Care Team ([facility] st Contact Info) Description 07/19/2023 Telephone [facility] ADULT DENTAL [address] [place] [address] AttStefany terry, DDS [address] [place], [place] [phone] antibiotics pre med Social History Tobacco Use [...] Info) Description 11/16/2024 11:00 AM EDT Nutrition [facility] DIABETES/NUTRITION [address] [place] [address] Juana Gusman, MONICA [address] [place] [address] 01/04/2025 11:00 AM EDT Office Visit [facility] ADULT DENTAL [address] [place] [address] Mykel, Fabi [address] [place] [address] 01/10/2025 12:00 PM EDT Office Visit [facility] MEDICINE [address] [place] [address] Zeinab Sykes MD [address] [place] [address] 01/22/2025 11:00 AM EDT Office Visit [facility] MEDICINE [address] [place] [address] documented as of this encounter Goals Goal Patient Goal Type Associated Problems Recent Progress Patient-Stated? Author Patient will manage their medication General On track( 023 11:18 AM EDT) Citlali Ocampo, PharmD Note: Began medboxes. Goal achieved 11/19/22. Patient graduated from [facility]. documented as of this encounter Visit Diagnoses Not on filedocumented in this encounter Care Teams Wiper Blender Relationship Specialty Start Date End Date Oralia Aguila MD [address] [place] [address] PCP - General Family Medicine 04/26/23 01/01/24 Zeinab Sykes MD [address] [place] [address] PCP - General Internal Medicine 01/02/24 Tomeka Martins Textile StylistSchool Adjustment Counselor 10/27/23 documented as of this encounter
--- OUTSIDE RECORDS SUMMARY | 2024-11-01 14:40 | XMS_ITS | Clinical Summary ---
Author Organization [facility], Address [address] [place] [address] [place] [address] Phone Care Team Providers Care Microsoft Dynamics Consultant Name Role Phone Evelyn Rodriguez Primary Care [...] Colonoscopy 11/05/2008 Colorectal Cancer Screening: Sigmoidoscopy 11/05/2008 Pneumococcal Vaccine: 50+ Ye ars (1 of - PCV) 11/05/2009 Influenza Vaccine (Season Ended) 2025 Hepatitis B Vaccine Aged Out No longe r eligible based on patient's age to complete this topic Insurance Medicaid [place] Care Teams Microsoft Dynamics Consultant Relationship Specialty Start Date End Date Evelyn Rodriguez FNP PCP - General 02/18/23
--- OUTSIDE RECORDS SUMMARY | 2024-11-01 14:40 | XMS_ITS | Encounter Summary ---
Author Organization [employer] [facility] Address [address] [place] [address] 7t [place] [address] Care Team Providers Care Relish Maker Name Role Phone Oralia Aguila MD Primary Care Provider [phone] Zeinab Sykes MD Primary Care Provider + Reason for Visit * Reason Comments Med Refill Encounter Details Date Type Department Care Team (Late Contact Info) Description 07/06/2023 Refill [facility] [address] [place] [address] Bryn Franklin MD [address] [place], [place] [phone] Social History Tobacco Use Types Packs/Day Years [...] Info) Description 11/16/2024 11:00 AM EDT Nutrition [facility] DIABETES/NUTRITION [address] [place] [address] [place] [address] 01/04/2025 11:00 AM EDT Office Visit [facility] ADULT DENTAL [address] [place] [address] Fabi Hogue [address] [place] [address] 01/10/2025 12:00 PM EDT Office Visit [facility] MEDICINE [address] [place] [address] Zeinab Sykes MD 230 [place] [address] 01/22/2025 11:00 AM EDT Office Visit [facility] MEDICINE [address] [place] [address] documented as of this encounter Goals Goal Patient Goal Type Associated Problems Recent Progress Patient-Stated? Author Patient will manage their medication General On track( 023 11:18 AM EDT) Citlali Ocampo, PharmD Note: Began medboxes. Goal achieved 11/19/22. Patient graduated from [facility]. documented as of this encounter Visit Diagnoses Not on filedocumented in this encounter Care Teams Relish Maker Relationship Specialty Start Date End Date Oralia Aguila MD [address] [place] [address] PCP - General Family Medicine 04/26/23 01/01/24 Zeinab Sykes MD [address] [place] [address] PCP - General Internal Medicine 01/02/24 Tomeka Martins Wire InserterIronworker Apprentice 10/27/23 documented as of this encounter
== END 2024-11-01 12:07 | disposition home or self-care (01) ==
LOC: HO.HWS 11:45
PROVIDERS: PCP Internal Medicine; Visit Provider Obstetrics & Gynecology
DX: D25.9 Leiomyoma of uterus, unspecified (principal); R10.2 Pelvic and perineal pain
CPT/HCPCS: 99213

== ENCOUNTER → 2024-11-01 11:45 | Outpatient (BNVA) | payer MEDICARE, MEDICAID, SELFPAY | PROVIDERS: PCP Internal Medicine; Visit Provider Obstetrics & Gynecology | DX: R10.2 Pelvic and perineal pain (principal); D25.9 Leiomyoma of uterus, unspecified; Z71.2 Person consulting for explanation of examination or test findings | CPT/HCPCS: 99212 ==

== ENCOUNTER 2024-11-02 11:00 | Outpatient (AMB) | payer MEDICARE, MEDICAID, SELFPAY ==
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
[2024-11-02 11:10] VITALS: BMI 35.4
--- OUTSIDE RECORDS SUMMARY | 2024-11-02 12:04 | XMS_ITS | Encounter Summary ---
Author Organization [employer] [facility] Address [address] [place] [address] 7t [place] [address] Care Team Providers Care Assembler Camper Name Role Phone Evelyn Ledesma Primary Care Provider [phone] Oralia Aguila MD Primary Care Provider [phone] Zeinab Sykes MD Primary Care Provider + Reason for Visit * Reason Onset Date Comments Appointment Request 12/20/2022 Encounter Details Date Type Department Care Team (Late st Contact Info) Description 12/20/2022 Telephone [facility] MEDICINE [address] [place] [address] Eveyln Ledesma FNP [address] [place] [address] Dept [place] [address] Appointment Request Social History Tobacco Use Types [...] an earlier day) Please contact pt at [phone] documented in this encounter Plan of Treatment Upcoming Encounters Date Type Department Care Team (Late st Contact Info) Description 11/16/2024 11:00 AM EDT Nutrition [facility] DIABETES/NUTRITION [address] [place] [address] Juana Gusman, MONICA [address] [place] [address] 01/04/2025 11:00 AM EDT Office Visit [facility] ADULT DENTAL [address] [place] [address] Mykel, Fabi [address] [place] [address] 01/10/2025 12:00 PM EDT Office Visit [facility] MEDICINE [address] [place] [address] Zeinab Sykes MD [address] [place] [address] 01/22/2025 11:00 AM EDT Office Visit [facility] MED[facility]INE [address] [place] [address] documented as of this encounter Goals Goal Patient Goal Type Associated Problems Recent Progress Patient-Stated? Author Patient will manage their medication General On track( 023 11:18 AM EDT) Citlali Ocampo, Anoop Note: Began medboxes. Goal achieved 11/19/22. Patient graduated from [facility]. documented as of this encounter Visit Diagnoses Not on filedocumented in this encounter Care Teams Assembler Camper Relationship Specialty Start Date End Date Evelyn Ledesma FNP PCP - General Family Medicine 03/15/22 04/25/23 Oralia Aguila MD [address] [place] [address] PCP - General Family Medicine 04/26/23 01/01/24 Zeinab Sykes MD [address] [place] [address] PCP - General Internal Medicine 01/02/24 Tomeka Martins Paper TesterFreezer Laboratory Technician 10/27/23 documented as of this encounter
--- OUTSIDE RECORDS SUMMARY | 2024-11-02 12:04 | XMS_ITS | Encounter Summary ---
Author Organization [employer] Address [address] [facility] 7t [place] [address] Care Team Providers Care Bird Sitter Name Role Phone Evelyn Ledesma Primary Care Provider [phone] Oralia Aguila MD Primary Care Provider [phone] Zeinab Sykes MD Primary Care Provider + Reason for Visit * Reason Onset Date Comments case from lab 11/04/2022 Encounter Details Date Type Department Care Team (Late st Contact Info) Description 11/04/2022 Telephone [facility] ADULT DENTAL [address] [place] [address] Asad Shore DDS [address] [place] [address] case from lab Social History Tobacco Use [...] 11:00 AM EDT Nutrition [facility] DIABETES/NUTRITION [address] [place] [address] [place] [address] 01/04/2025 11:00 AM EDT Office Visit [facility] ADULT DENTAL [address] [place] [address] Mykel, Fabi [address] [place] [address] 01/10/2025 12:00 PM EDT Office Visit [facility] MEDICINE [address] [place] [address] Zeinab Sykes MD 230 [place] [address] 01/22/2025 11:00 AM EDT Office Visit [facility] MEDICINE [address] [place] [address] documented as of this encounter Visit Diagnoses Not on filedocumented in this encounter Care Teams Bird Sitter Relationship Specialty Start Date End Date Evelyn Ledesma FNP PCP - General Family Medicine 03/15/22 04/25/23 Oralia Aguila MD [address] [place] [address] PCP - General Family Medicine 04/26/23 01/01/24 Zeinab Sykes MD [address] [place] [address] [place] [address] PCP - General Internal Medicine 01/02/24 Tomeka Martins Sql AnalystCardiac Care Nurse 10/27/23 documented as of this encounter
--- OUTSIDE RECORDS SUMMARY | 2024-11-02 12:04 | XMS_ITS | Encounter Summary ---
Author Organization [employer] Address [address] [place] [address] 7t [place] [address] Care Team Providers Care Surgical Assistant Name Role Phone Zeinab Sykes MD Primary Care Provider + Reason for Visit * Reason Onset Date Comments Med Refill 10/26/2024 Encounter Details Date Type Department Care Team (Late st Contact Info) Description 10/26/2024 Refill [facility] MEDICINE 230 [place], [place] [phone] Zeinab Sykes MD 230 [place] [address] Other intervertebral disc displacement, lumbar region Social [...] 5-325 MG tablet To be sent to: [facility] documented in this encounter Plan of Treatment Upcoming Encounters Date Type Department Care Team (Late st Contact Info) Description 11/16/2024 11:00 AM EDT Nutrition [facility] DIABETES/NUTRITION 230 [place], [place] [phone] Juana Gusman, RD 230 [place] [address] 01/04/2025 11:00 AM EDT Office Visit [facility] ADULT DENTAL 230 [place] [address] Mykel, Fabi 230 [place] [address] 01/10/2025 12:00 PM EDT Office Visit [facility] MEDICINE 230 [place] [address] Zeinab Sykes MD [address] [place] [address] 01/22/2025 11:00 AM EDT Office Visit [facility] MEDICINE [address] [place] [address] documented as of this encounter Goals Goal Patient Goal Type Associated Problems Recent Progress Patient-Stated? Author Patient will manage their medication General On track( 023 11:18 AM EDT) Citlali Ocampo, PharmCatrachita Note: Began medboxes. Goal achieved 11/19/22. Patient graduated from [facility]. documented as of this encounter Visit Diagnoses Diagnosis Other intervertebral disc displacement, lumbar region documented in this encounter Additional Health Concerns Assessment Noted Time PHQ-9 Depression Total Score: 22 025 10:31 AM EST documented as of this encounter Care Teams Surgical Assistant Relationship Specialty Start Date End Date Zeinab Sykes MD [address] [place] [address] PCP - General Internal Medicine 01/02/24 Tomeka Martins Company LaborerProfessor Of Psychology 10/27/23 documented as of this encounter
--- OUTSIDE RECORDS SUMMARY | 2024-11-02 12:04 | XMS_ITS | Encounter Summary ---
Author Organization [employer] [facility] Address [address] [place] [address] 7t [place] [address] Care Team Providers Care Rinkman Name Role Phone Evelyn Ledesma Primary Care Provider [phone]- [phone] Oralia Aguila MD Primary Care Provider [phone] Zeinab Sykes MD Primary Care Provider + Encounter Details Date Type Department Care Team (Late Contact Info) Description 08/20/2022 Orders Only [facility] MEDICINE 230 [place], [place] [phone] Karen Henderson FNP Social History Tobacco Use [...] Info) Description 11/16/2024 11:00 AM EDT Nutrition [facility] DIABETES/NUTRITION [address] [place], [place] [phone] Juana Gusman, MONICA 230 [place] [address] 01/04/2025 11:00 AM EDT Office Visit [facility] ADULT DENTAL [address] [place] [address] Fabi Hogue 230 [place] [address] 01/10/2025 12:00 PM EDT Office Visit [facility] MEDICINE [address] [place] [address] Zeinab Sykes MD [address] [place] [address] 01/22/2025 11:00 AM EDT Office Visit [facility] [address] [place] [address] documented as of this encounter Visit Diagnoses Not on filedocumented in this encounter Care Teams Rinkman Relationship Specialty Start Date End Date Evelyn Ledesma FNP PCP - General Family Medicine 03/15/22 04/25/23 Oralia Aguila MD [address] [place] [address] PCP - General Family Medicine 04/26/23 01/01/24 Zeinab Sykes MD [address] [place] [address] PCP - General Internal Medicine 01/02/24 Tomeka Martins Supervisor Of ResearchBronze Plater 10/27/23 documented as of this encounter
--- OUTSIDE RECORDS SUMMARY | 2024-11-02 12:04 | XMS_ITS | Encounter Summary ---
Author Organization [employer] Address [address] [place] [address] 7t [place] [address] Care Team Providers Care Facilities Director Name Role Phone Evelyn Ledesma Primary Care Provider [phone] Oralia Aguila MD Primary Care Provider [phone] Zeinab Sykes MD Primary Care Provider + Reason for Visit * Reason Onset Date Comments medical clearance 02/11/2023 Encounter Details Date Type Department Care Team (Late st Contact Info) Description 02/11/[address] [facility] ADULT DENTAL [address] [place] [address] Asad Shore DDS [address] [place] [address] medical clearance Social History Tobacco Use Types [...] 11:00 AM EDT Nutrition [facility] DIABETES/NUTRITION [address] [place] [address] [place] [address] 01/04/2025 11:00 AM EDT Office Visit [facility] ADULT DENTAL [address] [place] [address] Mykel, Fabi [address] [place] [address] 01/10/2025 12:00 PM EDT Office Visit [facility] MEDICINE [address] [place] [address] Zeinab Sykes MD 230 [place] [address] 01/22/2025 11:00 AM EDT Office Visit [facility] MEDICINE [address] [place] [address] documented as of this encounter Goals Goal Patient Goal Type Associated Problems Recent Progress Patient-Stated? Author Patient will manage their medication General On track( 023 11:18 AM EDT) Citlali Ocampo, PharmD Note: Began medboxes. Goal achieved 11/19/22. Patient graduated from [facility]. documented as of this encounter Visit Diagnoses Not on filedocumented in this encounter Care Teams Facilities Director Relationship Specialty Start Date End Date Evelyn Ledesma FNP PCP - General Family Medicine 03/15/22 04/25/23 Oralia Aguila MD [address] [place] [address] PCP - General Family Medicine 04/26/23 01/01/24 Zeinab Sykes MD [address] [place] [address] PCP - General Internal Medicine 01/02/24 Tomeka Martins Heel MolderC 13 Catapult Operator 10/27/23 documented as of this encounter
--- OUTSIDE RECORDS SUMMARY | 2024-11-02 12:04 | XMS_ITS | Encounter Summary ---
Author Organization [employer] Address [address] [facility] 7t [place] [address] Care Team Providers Care Gas Main Fitter Helper Name Role Phone Zeinab Sykes MD Primary Care Provider + Encounter Details Date Type Department Care Team ([facility] st Contact Info) Description 09/20/2024 Orders Only [facility] CHC MED & PEDS [address] [place], [place] [phone] ProviderParag MD Social History Tobacco Use Types [...] Description 11/16/2024 11:00 AM EDT Nutrition [facility] DIABETES/NUTRITION 230 [place] [address] Juana Gusman, MONICA 230 [place] [address] 01/04/2025 11:00 AM EDT Office Visit [facility] ADULT DENTAL 230 [place] [address] Mykel, Fabi [address] [place] [address] 01/10/2025 12:00 PM EDT Office Visit [facility] MEDICINE [address] [place] [address] Zeinab Sykes MD 230 [place] [address] 01/22/2025 11:00 AM EDT Office Visit [facility] MEDICINE [address] [place] [address] documented as of this encounter Goals Goal Patient Goal Type Associated Problems Recent Progress Patient-Stated? Author Patient will manage their medication General On track( 023 11:18 AM EDT) Citlali Ocampo, Anoop Note: Began medboxes. Goal achieved 11/19/22. Patient graduated from [facility]. documented as of this encounter [...] EDT Narrative 10/19/2024 4:14 PM EDT ? [facility] ?[address] ?[place] [address] ? CT Scan Report ? Signed ? Patient: Rhonda Fernández ?MR# ?? : [id number] ? : 1960 ?Acct:[id number] ? Age/Sex: 63 / F ?ADM Date: 10/18/24 ? Loc: HO.CT ? Attending Dr: Nolberto Quigley MD ? Ordering Physician: Nolberto Quigley MD ?? Date of Service: 10/18/24 ?? Procedure(s): CT abdomen pelvis w IV con ?? Accession Number(s): [id number] ? cc: Zeinab Sykes MD; Nolberto Quigley MD ? Report Number: ?? [id number]: Total DLP = ??538.00 mGy-cm ? CLINICAL [...] ? DD/ ? TD/TT: 10/19/24 1613 ? Usability Specialist: ? Procedure Note Donotuseinterpreter, Image - 10/19/[address] [place] [address] [address] Scan Report Signed Patient: Karla Fernández# : [id number] : 1960Acct:[id number] Age/Sex: 63 / FADM Date: 10/18/24 Loc: HO.CT Attending Dr: Nolberto Quigley MD Ordering Physician: Nolberto Quigley MD Date of Service: 10/18/24 Procedure(s): CT abdomen pelvis w IV con Accession Number(s): [id number] cc: Zeinab Sykes MD; Nolberto Quigley MD Report Number: [id number]: Total DLP = 538.00 mGy-cm CLINICAL HISTORY: [...] 10/19/24 1614 DD/ 161 TD/TT: 10/19/24 161 Usability Specialist: us [facility] External Provider IMG CT PROCEDURES Final Result * XR Wrist 3+ Views Left (10/16/2024 5:26 PM EDT) Anatomical Region Laterality Modality Upper Extremities, Wrist Left Radiogr aphic Imaging 10/16/2024 5:26 PM EDT Narrative 10/16/2024 5:28 PM EDT ? [facility] ?[address] ?[place], [place] [address] ?XRay Report ? Signed ? Patient: Gerry Mclaughlin,Rhonda ?MR# ?? : [id number] ? : 1960 ?Acct:[id number] ? Age/Sex: 63 / F ?ADM Date: 10/16/24 ? Loc: HO.ED ? Attending Dr: ? Ordering Physician: Lanette Laura PA-C ?? Date of Service: 10/16/24 ?? Procedure(s): XR wrist LT min 3V ?? Accession Number(s): [id number] ? cc: Zeinab Sykes MD; Lanette Laura [...] ? DD/ 25 ? TD/TT: 10/16/241725 ? Usability Specialist: ? Procedure Note Mary, Carolina - 10/16/[address] [address] XRay Report Signed Patient: Karla Fernández# : [id number] : 1960Acct:[id number] Age/Sex: 63 / FADM Date: 10/16/24 Loc: HO.ED Attending Dr: Ordering Physician: Lanette Laura PA-C Date of Service: 10/16/24 Procedure(s): XR wrist LT min 3V Accession Number(s): [id number] cc: Zeinab Sykse MD; Lanette Laura PA-C CLINICAL HISTORY: TTP [...] 10/16/24 1727 DD/ 1726 TD/TT: 10/16/24 1726 Usability Specialist: [facility] External Provider IMG XR PROCEDURES Final Result * XR Hip left with Pelvis 1 view (10/16/2024 5:24 PM EDT) Anatomical Region Laterality Modality Lower Extremities, Hip Bilateral Radiograp hic Imaging 10/16/2024 5:24 PM EDT Narrative 10/16/2024 5:26 PM EDT ? [facility] ?[address] ?[place] [address] ?XRay Report ? Signed ? Patient: Rhonda Fernández ?MR# ?? : [id number] ? : 1960 ?Acct:[id number] ? Age/Sex: 63 / F ?ADM Date: 10/16/24 ? Loc: HO.ED ? Attending Dr: ? Ordering Physician: Lanette Laura PA-C ?? Date of Service: 10/16/24 ?? Procedure(s): XR hip LT w PEL1V ?? Accession Number(s): [id number] ? cc: Zeinab Sykes MD; Lanette Laura [...] ? DD/ 1724 ? TD/TT: 10/16/244 ? Usability Specialist: ? Procedure Note Donedward, Image - 10/16/[address] [address] XRay Report Signed Patient: Karla Fernández# : [id number] : 1960Acct:[id number] Age/Sex: 63 / FADM Date: 10/16/24 Loc: HO.ED Attending Dr: Ordering Physician: Lantete Laura PA-C Date of Service: 10/16/24 Procedure(s): XR hip LT w PEL1V Accession Number(s): [id number] cc: Zeinab Sykes MD; Lanette Laura PA-C [...] 10/16/24 1725 DD/ 172 TD/TT: 10/16/24 1724 Usability Specialist: [facility] External Provider IMG XR PROCEDURES Final Result * XR Elbow 3+ Views Left (10/16/2024 5:23 PM EDT) Anatomical Region Laterality Modality Upper Extremities, Elbow Left Radiogr aphic Imaging 10/16/2024 5:23 PM EDT Narrative 10/16/2024 5:25 PM EDT ? [facility] ?[address] ?[place] [address] ?XRay Report ? Signed ? Patient: Gerry Mclaughlin,Rhonda ?MR# ?? : [id number] ? : 1960 ?Acct:[id number] ? Age/Sex: 63 / F ?ADM Date: 04/01/25 ? Loc: HO.ED ? Attending Dr: ? Ordering Physician: Lanette Laura PA-C ?? Date of Service: 10/16/24 ?? Procedure(s): XR elbow LT min 3V ?? Accession Number(s): [id number] ? cc: Zeinab Sykes MD; Lanette Laura [...] DD/ 1723 ? TD/TT: 10/16/24 1723 ? Usability Specialist: ? Procedure Note Carolina Hernandez - 10/16/[address] [address] XRay Report Signed Patient: Karla Fernández# : [id number] : 1960Acct:[id number] Age/Sex: 63 / FADM Date: 10/16/24 Loc: HO.ED Attending Dr: Ordering Physician: Lanette Laura PA-C Date of Service: 10/16/24 Procedure(s): XR elbow LT min 3V Accession Number(s): [id number] cc: Zeinab Sykes MD; Lanette Laura PA-C [...] 10/16/24 1724 DD/ 1723 TD/TT: 10/16/24 1723 Usability Specialist: [facility] External Provider IMG XR PROCEDURES Final Result * CT Cervical Spine w/o Contrast (10/16/2024 5:18 PM EDT) Anatomical Region Laterality Modality Spine, C-spine Computed Tomogra phy 10/16/2024 5:18 PM EDT Narrative 10/16/2024 5:19 PM EDT ? [facility] ?[address] ?[place], [place] [address] ? [address] Scan Report ? Signed ? Patient: Rhonda Fernández ?MR# ?? : [id number] ? : 1960 ?Acct:[id number] ? Age/Sex: 63 / F ?ADM Date: 10/16/24 ? Loc: HO.ED ? Attending Dr: ? Ordering Physician: Lanette Laura PA-C ?? Date of Service: 10/16/24 ?? Procedure(s): CT cervical spine wo IV con ?? Accession Number(s): [id number] ? cc: Zeinab Syeks MD; Lanette Laura PA-C ? Report Number: ?? [id number]: Total DLP = ??605.00 mGy-cm ? CLINICAL [...] ? DD/ 1718 ? TD/TT: 10/16/248 ? Usability Specialist: ? Procedure Note Mary, Image - 04/01/2025 [facility] [address] [place] [address] [address] [address] Scan Report Signed Patient: Karla Fernández# : [id number] : 1960Acct:[id number] Age/Sex: 63 / FADM Date: 10/16/24 Loc: HO.ED Attending Dr: Ordering Physician: Lanette Laura PA-C Date of Service: 10/16/24 Procedure(s): CT cervical spine wo IV con Accession Number(s): [id number] cc: Zeinab Sykes MD; Lanette Laura PA-C Report Number: [id number]: Total DLP = 605.00 mGy-cm CLINICAL HISTORY: [...] in OV> 10/16/241718 DD/ 17 TD/TT: 10/16/241717 Usability Specialist: [facility] External Provider IMG CT PROCEDURES Final Result * Hm Colonoscopy (11/05/2020 11:36 AM EDT) Historical Provider HEALTH MAINTENANCE Final Result documented in this encounter Visit Diagnoses Not on filedocumented in this encounter Additional Health Concerns Assessment Noted Time PHQ-9 Depression Total Score: 22 08/15/ 025 10:31 AM EST documented as of this encounter Care Teams Gas Main Fitter Helper Relationship Specialty Start Date End Date Zeinab Sykes MD [address] [place] [address] PCP - General Internal Medicine 01/02/24 Tomeka Martins Head Of DigitalTherapy Manager 10/27/23 documented as of this encounter
--- OUTSIDE RECORDS SUMMARY | 2024-11-02 12:04 | XMS_ITS | Encounter Summary ---
Author Organization [employer] [facility] Address [address] [place] [address] 7t [place] [address] Care Team Providers Care Rubber Roller Grinder Operator Name Role Phone Evelyn Ledesma Primary Care Provider [phone] Oralia Aguila MD Primary Care Provider [phone] Zeinab Sykes MD Primary Care Provider + Reason for Visit * Reason Onset Date Comments Prior Authorization 12/28/2022 Encounter Details Date Type Department Care Team (Late st Contact Info) Description 12/28/2022 Telephone [facility] MEDICINE [address] [place] [address] Evelyn Ledesma FNP [address] [place] [address] Dept [place] [address] Prior Authorization Social History Tobacco Use Types [...] AM EDT T/C placed to pt via [employer] Distribution Engineer Zeinab #[id number]. Advised of message from pcp re: lab [...] all other NSAIDS. Do you have a agricultural equipment salesperson yet? If not, your PCP would like [...] 12/28/2022 10:18 AM EDT THOMAS Emery from [employer] requesting XL pull ups and disposable under pads . States faxed request couple days ago and have not gotten a response . Informs paper work 12/29/22. Please call to clarify at phone # [phone] . documented in this encounter Plan of Treatment Upcoming Encounters Date Type Department Care Team (Late st Contact Info) Description 11/16/2024 11:00 AM EDT Nutrition [facility] DIABETES/NUTRITION [address] [place], [place] [phone] Juana Gusman, RD 230 [place] [address] 01/04/2025 11:00 AM EDT Office Visit [facility] ADULT DENTAL [address] [place] [address] Ruben Hoguearis [address] [place] [address] 01/10/2025 12:00 PM EDT Office Visit [facility] MEDICINE [address] [place] [address] Zeinab Sykes MD 230 [place] [address] 01/22/2025 11:00 AM EDT Office Visit [facility] MEDICINE [address] [place] [address] documented as of this encounter Goals Goal Patient Goal Type Associated Problems Recent Progress Patient-Stated? Author Patient will manage their medication General On track( 023 11:18 AM EDT) Citlali Ocampo, PharmCatrachita Note: Began medboxes. Goal achieved 11/19/22. Patient graduated from [facility]. documented as of this encounter Visit Diagnoses Not on filedocumented in this encounter Care Teams Rubber Roller Grinder Operator Relationship Specialty Start Date End Date Evelyn Ledesma FNP PCP - General Family Medicine 03/15/22 04/25/23 Oralia Aguila MD [address] [place] [phone] PCP - General Family Medicine 04/26/23 01/01/24 Zeinab Sykes MD [address] [place] [id number] PCP - General Internal Medicine 01/02/24 Tomeka Martins Database Administration Project ManagerDrafting Teacher 10/27/23 documented as of this encounter
--- OUTSIDE RECORDS SUMMARY | 2024-11-02 12:04 | XMS_ITS | Clinical Summary ---
Author Organization [facility] Address [address] [place] [address] Care Team Providers Care Folding Machine Setter Name Role Phone Meryl Montes Primary Care Provider Surgical History Surgery Date Site/Laterality Comments BREAST REDUCTION PROCEDURE: [place] BREAST REDUCTION BACK SURGERY PROCEDURE: HISTORICAL BACK SURGERY; COMMENT: L4-5 rt L5-S1 decomp 05/26/18 Medical History Medical History Date Comments Asthma DX:Asthma Diabetes mellitus type 2, co ntrolled, with complications (CMS/HCC V24, CMS/HCC V28) DX:Diabetes mellitus type 2, controlled, with complications ([facility]) Essential hypertension DX:Essent ial hypertension Depressive disorder [...] age to complete this topic Care Teams Folding Machine Setter Relationship Specialty Start Date End Date Meryl Montes [address] [place] [phone] PCP - General 05/07/22
--- OUTSIDE RECORDS SUMMARY | 2024-11-02 12:04 | XMS_ITS | Encounter Summary ---
Author Organization [employer] [facility] Address [address] [facility] 7t [place] [address] Care Team Providers Care Owner Manager Name Role Phone Evelyn Ledesma Primary Care Provider [phone] Oralia Aguila MD Primary Care Provider [phone] Zeinab Sykes MD Primary Care Provider + Encounter Details Date Type Department Care Team ([facility] Contact Info) Description 10/22/2022 Orders Only [facility] MEDICINE [address] [place] [address] Evelyn Ledesma FNP [address] [place] [address] Dept [place] [address] Social History Tobacco Use Types Packs/Day Years [...] Encounters Date Type Department Care Team ([facility] Contact Info) Description 11/16/2024 11:00 AM EDT Nutrition [facility] DIABETES/NUTRITION [address] [place] [address] Juana Gusman, RD [address] [place] [address] 01/04/2025 11:00 AM EDT Office Visit [facility] ADULT DENTAL [address] [place] [address] Mykel, Fabi [address] [place] [address] 01/10/2025 12:00 PM EDT Office Visit [facility] MEDICINE [address] [place] [address] Zeinab Sykes MD [address] [place] [address] 01/22/2025 11:00 AM EDT Office Visit [facility] MEDICINE [address] [place] [address] documented as of this encounter Visit Diagnoses Not on filedocumented in this encounter Care Teams Owner Manager Relationship Specialty Start Date End Date Evelyn Ledesma FNP PCP - General Family Medicine 03/15/22 04/25/23 Oralia Aguila MD [address] [place] [address] PCP - General Family Medicine 04/26/23 01/01/24 Zeinab Sykes MD [address] [place] [address] PCP - General Internal Medicine 01/02/24 Tomeka Martins Electronic Design EngineerMaterials And Processes Manager 10/27/23 documented as of this encounter
--- OUTSIDE RECORDS SUMMARY | 2024-11-02 12:04 | XMS_ITS | Encounter Summary ---
Author Organization [facility], Address [address] [place] [address] Phone Care Team Providers Care Immersion Metalcleaner Name Role Phone Evelyn Rodriguez Primary Care Provider Silvana vailable Encounter Details Date Type Department Care Team (Late st Contact Info) Description 02/18/2023 Documentation Only [facility], [address] [place] [address] Xiao Sheppard [address] [place] [address] Social History Tobacco Use Types [...] on filedocumented in this encounter Care Teams Immersion Metalcleaner Relationship Specialty Start Date End Date Evelyn Rodriguez FNP PCP - General 02/18/23 documented as of this encounter
--- OUTSIDE RECORDS SUMMARY | 2024-11-02 12:04 | XMS_ITS | Clinical Summary ---
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 Active oxymetazoline (Afrin Nasal [place]) 0.05 % nasal spray Administer 2 sprays [...] complication, without long-term current use of insulin ([facility]) 1 each by Other route Once per day. USE TO TEST BLOOD SUGAR ONCE A DAY 100 each 3 024 Active glucose blood (FREESTYLE LITE) test stripIndications:T ype 2 diabetes mellitus without complication, without long-term current use of insulin ([facility]) USE TO TEST BLOOD SUGAR ONCE A DAY 100 each 3 024 Active sodium chloride ([place] Nasal [place]) 0.65 % nasal sprayIndications:A cute nasopharyngitis Administer 1 spray into each nostril if needed for congestion. 30 mL 1 025 2025 Active Alcohol Swabs (Alcohol Prep) padsIndications:Ty pe 2 diabetes mellitus without complication, without long-term current use of insulin ([facility]) USE TWICE DAILY 100 each 5 025 [...] 1 Active ergocalciferol (Vitamin D2) 1.25 MG (32324 UT) capsule Take 1 capsule (1.25 mg) [...] 2024 Discontinued ergocalciferol (Vitamin D2) 1.25 MG (22940 UT) capsule TAKE 1 CAPSULE BY MOUTH [...] bx, I will fu or refer to SCHOOL SECRETARY after US reports. Left foot pain 03/29/2024 [...] L4-5 and right L5-S1 decompressive laminectomy at [facility] - surgeon Dr. Melia Pedroza DME request for 10-in-1 pillow on 07/31/24 (not approved by insurance) Assessment & Plan (09/27/2024 11:23 AM EDT): Known DDD L-spine with radiculopathy sxs 05/26/2018 - Lumbar decompression surgery: L4-5 and right L5-S1 decompressive laminectomy at [facility] - surgeon Dr. Melia RIOS request for 10-in-1 pillow on 07/31/24 (not approved by insurance) Assessment & Plan (07/31/2024 4:58 PM EST): Known DDD L-spine with radiculopathy sxs 05/26/2018 - Lumbar decompression surgery: L4-5 and right L5-S1 decompressive laminectomy at [facility] - surgeon Dr. Melia Pedroza DME request for 10-in-1 pillow on 07/31/24 Assessment & Plan (05/29/2024 5:18 PM EST): Known DDD L-spine with radiculopathy sxs 05/26/2018 - Lumbar decompression surgery: L4-5 and right L5-S1 decompressive laminectomy at [facility] - surgeon Dr. Melia Pedroza Assessment [...] disc, s/p vagus nerve stimulator, neuropathy Last [facility] [employer] Agreement: 03/13/24 Tier 3: [facility] visit Q4-6 months. (Last evaluated Jul 2024 [...] in 3mo Fatty liver 02/04/2024 Overview (03/29/2024): [facility] [place] on 10/2023 showed Fatty liver. Normal LFTs/albumin Assessment & Plan (03/29/2024 1:40 PM EDT): LFTs remain stable/normal. Dx d/w patient and advised her to continue tight control of DM, weight reduction, try to cut down on opiates and fu with me. I also advised her to avoid ETOH or recreational substances. Seborrheic dermatitis of scalp 01/02/2024 Overview (01/02/2024): Seen at [facility] dermatology Assessment & Plan (03/20/2024 3:50 PM EDT): Generally well controlled, encouraged to continue fu with [facility] derm Refill for fluocinolone today. Housing insecurity 01/02/2024 Assessment & Plan (08/15/2024 1:36 PM EST): See above. Applying for housing and need handicap access. Assessment & Plan (03/20/2024 3:51 PM EDT): Awaiting housing application, lives in abasement FU with [facility]. Stage 3a chronic kidney disease 11/01/2023 Assessment [...] pseudophedrine short term. Will refer her to consolidator again so she can be evaluated for [...] albuterol prn. Will refer her back to consolidator. RUQ pain 10/05/2023 Assessment & Plan (11/01/2023 [...] ballon inside the gastric body placed in [place] for bariatric procedure about 20 cm in [...] lumbar r egion 05/17/2017 Overview (09/17/2022): On [facility] contract. discussed tapering percocet options, not interested.. Referred to [facility] forms dept for handicap plackards documents. Referred to [facility] for polypharmacy education. Continue medications as prescribed. Discussed Narcan. Encouraged nonpharmacologic pain relief strategies. will f/up next visit Assessment & Plan (03/20/2024 3:48 PM EDT): On [facility] contract. discussed tapering percocet options, not interested, it apparently offers partial enough improvement of sxs. Patient is aware that terminal operations manager use of opiates can cause hyperalgesia, liver toxicity, PHYSICAL PLANT EMPLOYEE toxicity, increase anxiety, among others. Will continue to work with chronic pain management [facility] clinic. Continue medications as prescribed. Discussed Narcan. [...] PRN for elevated BP readings.. Referred to [facility] for polypharmacy education. Continue medications as [...] to enails with type 2 diabetes mellitus ([facility]) 05/17/2017 03/29/2024 Encounters Date Type Department Care Team Description 11/01/2024 Telephone [facility] [address] [place] [address] Zeinab Sykes MD MED B form 10/31/2024 8:30 AM EDT Office Visit [facility] ADULT DENTAL [address] [place] [address] Watkins-Maynard, Gay, DDS Fracture of removable partial denture (Primary Dx) 10/30/2024 Telephone [facility] [address] [place] [address] Zeinab Sykes MD FYI 10/29/2024 Telephone [facility] [address] [place] [address] Zeinab Sykes MD Verbal Orders 10/26/2024 Refill [facility] [address] [place] [address] Zeinab Sykes MD Other intervertebral disc displacement, lumbar region 10/23/2024 11:00 AM EDT Office Visit [facility] [address] [place] [address] Alma Jha, TRAFFIC OPERATIONS MANAGER Lumbar back pain with radiculopathy affecting left lower extremity (Primary Dx); Long-term current use of opiate analgesic 10/23/2024 Travel 10/18/2024 Telephone [facility] [address] [place] [address] Zeinab Sykes MD ER Follow-up; Nurse Triage 10/17/2024 Refill [facility] [address] [place] [address] Zeinab Sykes MD Neuropathy 10/09/2024 11:45 AM EDT Office Visit [facility] [address] [place] [address] Zeinab Sykes MD Moderate persistent asthma without complication (Primary Dx); Class 2 severe obesity with serious comorbidity and body mass index (BMI) of 35.0 to 35.9 in adult, unspecified obesity type ([facility]); Type 2 diabetes mellitus without complication, without long-term current use of insulin ([facility]); Essential hypertension; Arthritis; Vitamin D deficiency 10/09/2024 Travel 10/01/2024 Travel 09/28/2024 Refill [facility] [address] [place] [address] Zeinab Sykes MD Other intervertebral disc displacement, lumbar region 09/28/2024 Population Health Risk Score [facility] () Department [address] [phone] Provider, Population Health Generic 09/25/2024 9:45 AM EDT Office Visit [facility] [address] [place] [address] Alma Jha FNP Lumbar back pain with radiculopathy affecting left lower extremity (Primary Dx); Long-term current use of opiate analgesic 09/25/2024 Travel 09/20/2024 Orders Only [facility] [address] [place] [address] Parag Torres MD 09/19/2024 Refill [facility] [address] [place] [address] Zeinab Sykes MD Left hand pain 08/31/2024 Refill [facility] [address] [place] [address] Zeinab Sykes MD Other intervertebral disc displacement, lumbar region 08/30/2024 Refill [facility] [address] [place] [address] Zeinab Sykse MD 08/29/2024 Refill [facility] [address] [place] [address] Oralia Aguila MD 08/27/2024 Telephone [facility] [address] [place] [address] Zeinab Sykes MD Results 08/21/2024 5:20 PM EST Office Visit [facility] [address] [place] [address] Yonathan Snider MD Subacute cough 08/21/2024 Travel 08/20/2024 Refill [facility] [address] [place] [address] Zeinab Sykes MD Type 2 diabetes mellitus without complication, without long-term current use of insulin ([facility]); Other intervertebral disc displacement, lumbar region 08/15/2024 10:15 AM EST Office Visit [facility] [address] [place] [address] Zeinab Sykes MD Type 2 diabetes mellitus without complication, without long-term current use of insulin (CMS/HCC) (Primary Dx); Essential hypertension; Postmenopause bleeding; Recurrent major depressive disorder, in partial remission ([facility]); Moderate persistent asthma with acute exacerbation; [place] (obstructive sleep apnea); Housing insecurity; Nasal congestion 08/15/2024 Travel 08/14/2024 Travel 08/10/2024 Telephone [facility] [address] [place] [address] Terra Mackey MA Chart prep 08/08/2024 5:20 PM EST Office Visit [facility] [address] [place] [address] Lia Martinez NP Acute nasopharyngitis (Primary Dx); Flu-like symptoms 08/08/2024 3:00 PM EST Office Visit [facility] ADULT DENTAL [address] [place] [address] Gay Thompson, DDS Fracture of removable partial denture (Primary Dx) from Last 3 Months Immunizations Name Administration [...] Info) Description 11/16/2024 11:00 AM EDT Nutrition [facility] DIABETES/NUTRITION [address] [place] [address] Juana Gusman, RD [address] [place] [address] 01/04/2025 11:00 AM EDT Office Visit [facility] ADULT DENTAL [address] [place] [address] Ruben Hoguearis [address] [place] [address] 01/10/2025 12:00 PM EDT Office Visit [facility] [address] [place] [address] Zeinab Sykes MD [address] [place] [address] 01/22/2025 11:00 AM EDT Office Visit [facility] [address] [place] [address] Health Maintenance Due Date Last Done Comments [...] medboxes. Goal achieved 11/19/22. Patient graduated from [facility]. Procedures Procedure Name Priority Date/Time Associated [...] complication, without long-term current use of insulin ([facility]) POCT GLUCOSE Routine 10/09/2024 11:58 AM EDT Type 2 diabetes mellitus without complication, without long-term current use of insulin ([facility]) POCT DIDIER-14 URINE DRUG SCREEN Routine 09/25/2024 [...] complication, without long-term current use of insulin ([facility]) POCT RAPID COVID ANTIGEN Routine 08/08/2024 5:54 [...] - 10/23/2024 1:48 PM EDT .UTOX cup Lot#[id number] Exp. 03/06/26 Internal Pass Control Alma Jha TRAFFIC OPERATIONS MANAGER POINT OF CARE TEST ENTER/EDIT ORDERABLES Final Result * CT Abdomen Pelvis w/ Contrast (10/19/2024 4:13 PM EDT) Anatomical Region Laterality Modality Body, Pelvis, Abdomen Computed T omography 10/19/2024 4:13 PM EDT Narrative 10/19/2024 4:14 PM EDT ? [facility] ?[address] ?[place] [address] ? CT Scan Report ? Signed ? Patient: Rhonda Fernández ?MR# ?? : [id number] ? : 1960 ?Acct:[id number] ? Age/Sex: 63 / F ?ADM Date: 10/18/24 ? Loc: HO.CT ? Attending Dr: Nolberto Quigley MD ? Ordering Physician: Nolberto Quigley MD ?? Date of Service: 10/18/24 ?? Procedure(s): CT abdomen pelvis w IV con ?? Accession Number(s): [id number] ? cc: Zeinab Sykes MD; Nolberto Quigley MD ? Report Number: ?? [id number]: Total DLP = ??538.00 mGy-cm ? CLINICAL [...] by Amalia Potter MD in OV> ? 10/19/244 ? DD/ 12 ? TD/TT: 10/19/24 1613 ? [employer]: ? Procedure Note Donzacter, Image - 10/19/[address] [place] [address] [address] Scan Report Signed Patient: Karla Fernández# : [id number] : 1960Acct:[id number] Age/Sex: 63 / FADM Date: 10/18/24 Loc: HO.CT Attending Dr: Nolberto Quigley MD Ordering Physician: Nolberto Quigley MD Date of Service: 10/18/24 Procedure(s): CT abdomen pelvis w IV con Accession Number(s): [id number] cc: Zeinab Sykes MD; Nolberto Quigley MD Report Number: [id number]: Total DLP = 538.00 mGy-cm CLINICAL HISTORY: [...] 10/19/24 1614 DD/ 1613 TD/TT: 10/19/24 1613 [employer]: [facility] External Provider IMG CT PROCEDURES Final Result * XR Wrist 3+ Views Left (10/16/2024 5:26 PM EDT) Anatomical Region Laterality Modality Upper Extremities, Wrist Left Radiogr aphic Imaging 10/16/2024 5:26 PM EDT Narrative 10/16/2024 5:28 PM EDT ? [facility] ?[address] ?[place] [address] ?XRay Report ? Signed ? Patient: Gerry Mclaughlin,Rhonda ?MR# ?? : [id number] ? : 1960 ?Acct:[id number] ? Age/Sex: 63 / F ?ADM Date: 10/16/24 ? Loc: HO.ED ? Attending Dr: ? Ordering Physician: Lanette Laura PA-C ?? Date of Service: 10/16/24 ?? Procedure(s): XR wrist LT min 3V ?? Accession Number(s): [id number] ? cc: Zeinab Sykes MD; Lanette Laura [...] ? DD/ 25 ? TD/TT: 10/16/241725 ? [employer]: ? Procedure Note Vladimirphilipsaludblade, Image - 10/16/[address] [address] XRay Report Signed Patient: Bertin FernándezMl# : [id number] : 1960Acct:[id number] Age/Sex: 63 / FADM Date: 10/16/24 Loc: HO.ED Attending Dr: Ordering Physician: Lanette Laura PA-C Date of Service: 10/16/24 Procedure(s): XR wrist LT min 3V Accession Number(s): [id number] cc: Zeinab Sykes MD; Lanette Laura PA-C [...] Beltran MD in OV> 10/16/24 1727 DD/ 172 TD/TT: 10/16/24 172 [employer]: us [facility] External Provider IMG XR PROCEDURES Final Result * XR Hip left with Pelvis 1 view (10/16/2024 5:24 PM EDT) Anatomical Region Laterality Modality Lower Extremities, Hip Bilateral Radiograp hic Imaging 10/16/2024 5:24 PM EDT Narrative 10/16/2024 5:26 PM EDT ? [facility] ?[address] ?[place] [address] ?XRay Report ? Signed ? Patient: Rhonda Fernández ?MR# ?? : [id number] ? : 1960 ?Acct:[id number] ? Age/Sex: 63 / F ?ADM Date: 10/16/24 ? Loc: HO.ED ? Attending Dr: ? Ordering Physician: Lanette Laura PA-C ?? Date of Service: 10/16/24 ?? Procedure(s): XR hip LT w PEL1V ?? Accession Number(s): [id number] ? cc: Zeinab Sykes MD; Lanette Laura [...] DD/ 1724 ? TD/TT: 10/16/24 1724 ? [employer]: ? Procedure Note Mary, Image - 10/16/2024 [facility] [address] [facility] [place] [address] XRay Report Signed Patient: Karla Fernández# : [id number] : 1960Acct:[id number] Age/Sex: 63 / FADM Date: 10/16/24 Loc: HO.ED Attending Dr: Ordering Physician: Lanette Laura PA-C Date of Service: 10/16/24 Procedure(s): XR hip LT w PEL1V Accession Number(s): [id number] cc: Zeinab Sykes MD; Lanette Laura PA-C [...] OV> 10/16/24 1725 DD/ 1724 TD/TT: 10/16/24 172 [employer]: [facility] External Provider IMG XR PROCEDURES Final Result * XR Elbow 3+ Views Left (10/16/2024 5:23 PM EDT) Anatomical Region Laterality Modality Upper Extremities, Elbow Left Radiogr aphic Imaging 10/16/2024 5:23 PM EDT Narrative 10/16/2024 5:25 PM EDT ? [facility] ?[address] ?[place] [address] ?XRay Report ? Signed ? Patient: Gerry Mclaughlin,Rhonda ?MR# ?? : [id number] ? : 1960 ?Acct:[id number] ? Age/Sex: 63 / F ?ADM Date: 04/01/25 ? Loc: HO.ED ? Attending Dr: ? Ordering Physician: Lanette Laura PA-C ?? Date of Service: 10/16/24 ?? Procedure(s): XR elbow LT min 3V ?? Accession Number(s): [id number] ? cc: Zeinab Sykes MD; Lanette Laura [...] by Enedina Beltran MD in OV> ? 10/16/244 ? DD/ 1723 ? TD/TT: 10/16/24 1723 ? [employer]: ? Procedure Note Donotsaludinterpreter, Image - 10/16/2024 [place] [address] XRay Report Signed Patient: Karla Fernández# : [id number] : 1960Acct:[id number] Age/Sex: 63 / FADM Date: 10/16/24 Loc: HO.ED Attending Dr: Ordering Physician: Lanette Laura PA-C Date of Service: 10/16/24 Procedure(s): XR elbow LT min 3V Accession Number(s): [id number] cc: Zeinab Sykes MD; Lanette Laura PA-C [...] Enedina Beltran MD in OV> 10/16/241723 DD/ 22 TD/TT: 04/01/25 1723 [employer]: us [facility] External Provider IMG XR PROCEDURES Final Result * CT Cervical Spine w/o Contrast (10/16/2024 5:18 PM EDT) Anatomical Region Laterality Modality Spine, C-spine Computed Tomogra phy 10/16/2024 5:18 PM EDT Narrative 10/16/2024 5:19 PM EDT ? [facility] ?[address] ?[place], [place] [address] ? CT Scan Report ? Signed ? Patient: Rhonda Fernández ?MR# ?? : [id number] ? : 1960 ?Acct:[id number] ? Age/Sex: 63 / F ?ADM Date: 10/16/24 ? Loc: HO.ED ? Attending Dr: ? Ordering Physician: Lanette Laura PA-C ?? Date of Service: 10/16/24 ?? Procedure(s): CT cervical spine wo IV con ?? Accession Number(s): [id number] ? cc: Zeinab Sykes MD; Lanette Laura PA-C ? Report Number: ?? [id number]: Total DLP = ??605.00 mGy-cm ? CLINICAL [...] 10/16/24 1719 ? DD/ 1718 ? TD/TT: 10/16/24 1718 ? [employer]: ? Procedure Note Mary, Carolina - 10/16/[address] [address] [address] Scan Report Signed Patient: Karla Fernández# : [id number] : 1960Acct:[id number] Age/Sex: 63 / FADM Date: 10/16/24 Loc: HO.ED Attending Dr: Ordering Physician: Lanette Laura PA-C Date of Service: 10/16/24 Procedure(s): CT cervical spine wo IV con Accession Number(s): [id number] cc: Zeinab Sykes MD; Lanette Laura PA-C Report Number: [id number]: Total DLP = 605.00 mGy-cm CLINICAL HISTORY: [...] in OV> 10/16/241718 DD/ 17 TD/TT: 10/16/241717 [employer]: [facility] External Provider IMG CT PROCEDURES Final [...] Media Lot # [id number] Lot# Expiration Date Blood Capillary blood specimen / Unknown 10/09/2024 11:58 AM EDT us Zeinab Sykes MD POINT OF CARE TEST ENTER /EDIT ORDERABLES Final Result * Creatinine, Serum (09/18/2024 3:57 PM EST) Creatinine, Serum 1.01 0.5 - 1.4 mg/dL [facility] Estimated Glomerular Filt Rate 55 [facility] Comment:Chronic Kidney Disea se: Estimated GFR < 60 mL/min/1.51v6Gyorns Kidney Disease: Estimated GFR < 15 mL/min/1.73m2 09/18/2024 3:57 PM EST 09/18/2024 3:57 PM EST Generic External Data Provider LAB BLOOD ORDERAB LES Final Result Performing Organization Address City/[facility]/ZIP Co de Phone Number [facility] [address] [place] [phone] * BUN (Blood Urea Nitrogen) (09/18/2024 3:57 PM EST) Urea Nitrogen (BUN) 13 9 - 16 mg/dL [facility] 09/18/2024 3:57 PM EST 09/18/2024 3:57 PM EST Generic External Data Provider LAB BLOOD ORDERAB LES Final Result Performing Organization Address City/[facility] Co de Phone Number [facility] [address] [place] [phone] * Polysomnography (09/11/2024) us Zeinab Sykes MD [facility] ORDERABLES Final Result * XR Chest 2 Views (08/22/2024 3:53 PM EST) Anatomical Region Laterality Modality Chest Radiographic Celia ging 08/22/2024 3:53 PM EST Narrative 08/22/2024 4:30 PM EST ?[facility] ?[address] ?[place] [address] ?XRay Report ? Signed ? Patient: Gerry Mclaughlin,Rhonda ?MR# ?? : [id number] ? : 1960 ?Acct:[id number] ? Age/Sex: 63 / F ?ADM Date: 08/22/24 ? Loc: HO.HHCX ? Attending Dr: Yonathan Snider MD ? Ordering Physician: Yonathan Snider MD ?? Date of Service: 08/22/24 ?? Procedure(s): XR chest 2V ?? Accession Number(s): [id number] ? cc: Yonathan Snider MD ? EXAMINATION: [...] DD/ 1553 ? TD/TT: 08/22/24 1600 ? [employer]: MSM ? Procedure Note Carolina Hernandez - 08/22/2024 [facility] [address] [facility] [place] [address] XRay Report Signed Patient: Karla Fernández# : [id number] : 1960Acct:[id number] Age/Sex: 63 / FADM Date: 08/22/24 Loc: HO.HHCX Attending Dr: Yonathan Snider MD Ordering Physician: Yonathan Snider MD Date of Service: 08/22/24 Procedure(s): XR chest 2V Accession Number(s): [id number] cc: Yonathan Snider MD EXAMINATION: XR CHEST [...] 08/22/24 1627 DD/ 1553 TD/TT: 08/22/24 1600 [employer]: MSM Yonathan Snider MD IMG XR PROCEDURES Edited Result - Final * Influenza B (ID NOW Rapid Molecular) (08/21/2024 5:37 PM EST) Only the most recent of3 resultswithin the time period is included. Influenza B Negative Negative, Indeterminate [facility] Swab 08/21/2024 5:37 PM EST Yonathan Snider MD POINT OF CARE TEST ENTER/EDIT OR DERABLES Final Result [facility] [address] [place] [phone] * Influenza A (ID NOW Rapid Molecular) (08/21/2024 5:37 PM EST) Only the most recent of3 resultswithin the time period is included. [facility] Influenza A Negative Negative, Indeterminate [facility] Swab 08/21/2024 5:37 PM EST us Yonathan Snider MD POINT OF CARE TEST ENTER/EDIT OR DERABLES Final Result [facility] [address] [place] [phone] * POCT Rapid COVID Ag (08/21/2024 [...] Health Adenovirus PCR Not Detected Not Detect. [facility] Bordetella pertussis PCR Not Detected Not Detect. [facility] Comment:Interpret results wi th caution. If B. pertussis isspecifically suspected, additional testing using analternate method is recommended. Bordetella parapertussis PCR Not Detected Not Detect. [facility] Chlamydia pneumoniae PCR Not Detected Not Detect. [facility] Coronavirus 229E PCR Not Detected Not Detect. [facility] Coronavirus HKU1 PCR Not Detected Not Detect. [facility] Coronavirus NL63 PCR Not Detected Not Detect. [facility] Coronavirus OC43 PCR Detected(A) Not Detect. [facility] SARS-CoV-2 PCR Not Detected Not Detect. [facility] Comment:SARS-CoV-2 not detec jocelyn by real-time RT-PCR.Note: If clinical suspicion for Sars-CoV-2 is high, continueto maintain precautions and consider repeat testing.Test results should be interpreted in the context ofclinical findings and other laboratory data.Rare polymorphisms exist that could lead to false-negativeor false-positive results. If results do not match theclinical findings, additional testing should be considered.Results reported to [facility].This test has been authorized by the FDA under the EmergencyUse Authorization (EUA) for use by authorized laboratories. Influenza A PCR Not Detected Not Detect. [facility] Influenza B PCR Not Detected Not Detect. [facility] Human metapneumovirus PCR Not Detected Not Detect. [facility] Rhino/Enterovirus PCR Not Detected Not Detect. [facility] Mycoplasma pneumoniae PCR Not Detected Not Detect. [facility] Parainfluenza 1 PCR Not Detected Not Detect. [facility] Parainfluenza 2 PCR Not Detected Not Detect. [facility] Parainfluenza 3 PCR Not Detected Not Detect. [facility] Parainfluenza 4 PCR Not Detected Not Detect. [facility] RSV PCR Not Detected Not Detect. [facility] Resp Panel NA Note See Note [facility] Comment:All results must be correlated with [...] assay is performed by Multiplexed PCR, utilizing [employer] Film Array. 08/21/2024 2:25 PM EST 08/22/2024 2:39 PM EST us Yonathan Snider MD LAB BLOOD ORDERABLES Final Resul t [facility] [address] [place] [address] [phone] * POCT Rapid RSV JI ID NOW (08/08/2024 5:54 PM EST) RSV Rapid Ag POC Negative Negative [facility] Swab 08/08/2024 5:54 PM EST Lia Martinez LAMINE POINT OF CARE TEST ENTER/EDIT O RDERABLES Final Result [facility] [address] [place] [address] [phone] * Pap Smear (06/01/2024 2:43 PM EST) 06/01/2024 2:43 PM EST 06/04/2024 9:25 AM EST Narrative [facility] - 06/20/2024 7:51 AM EST ----- ------- Name: Rhonda Fernández ? Age/Sex: 63/F ? : 1960 Unit#: [id number] ?? Attend Dr: Aisha Mcclain CNM ?Re06/01/24 ?Status: DEP REF ? Location: HO.LNP ?Disch: ? ----- ------- SPEC : [id number] ?RECD: 06/04/24 ? STATUS: ??SOUT ? REQ NUM: [id number] ? DARWIN: 06/01/24-144 ? SUBM DR: Aisha Mcclain CNM ? [...] Copies To: ?? Zeinab Sykes MD ?? [facility] ?? [address] ?? [place] [address] ?? [phone] ?? Aisha Mcclain CNM ?? [facility] ?? [address] ?? [place] [address] ?? [phone] ----- ------- Signed (signature on file) INDERJIT Bloom (ASCP) 06/20/24 0751 ? ----- ------- ? END OF REPORT ? us Generic External Data Provider LAB CYTOLOGY ORDE RABSOLANGE Final Result [facility] [address] [place] [phone] * (ABNORMAL) Lipid Panel with Reflex to Direct LDL (01/06/2024 12:38 PM EDT) Triglycerides 91 <150 mg/dL [facility] Comment:Desirable Triglyceri de: less than 150 mg/dLBorderline High Triglyceride 150-199 mg/dLHigh Triglyceride: 200-499 mg/dLVery High Triglyceride: greater than or equal to 5OO mg/dL Cholesterol 211(H) <200 mg/dL [facility] Comment:Desirable Cholestero l: less than 200 mg/dLBorderline High Cholesterol: 200-239 mg/dLHigh Cholesterol: greater than 239 mg/dL LDL Cholesterol Calculated 132(H) <100 mg/dL [facility] Comment:Desirable LDL: less than 100 mg/dLNear Optimal/Above Optimal LDL: 110- 129 mg/dLBorderline High LDL: 130-159 mg/dLHigh LDL: 160-189 mg/dLVery High LDL: greater than or equal to 190 mg/dL HDL Cholesterol 61 >40 mg/dL [facility] Comment:Desirable HDL: great er than 40 mg/dL Note: This HDL assay may give artificially low results in patients with liver disease. Blood 01/06/2024 12:3 8 PM EDT 01/06/2024 4:21 PM EDT Zeinab Sykes MD LAB BLOOD ORDERABLES Fin al Result Performing Organization Address [facility]/ZIP Co de Phone Number [facility] [address] [place] [address] [phone] * Hepatitis Panel, General (01/06/2024 12:38 PM EDT) Hepatitis A IgM Nonreactive Nonreactive [facility] Comment:IgM antibodies to GUERIN V not detected; does not exclude earlyacute or recovered HAV infection. ~Hepatitis B Surface Antibody REACTIVE Nonreactive [facility] Comment:REACTIVE: > 11.99 mI U/mL Hepatitis B Core Antibody Nonreactive Nonreactive [facility] Hepatitis C Antibody Nonreactive Nonreactive [facility] Comment:Antibodies to HCV no t detected; does not exclude early acuteHCV infection. Hepatitis B Surface Ag Negative Negative [facility] Blood 01/06/2024 12:3 8 PM EDT 01/06/2024 4:21 PM EDT Zeinab Sykes MD LAB BLOOD ORDERABLES Fin al Result Performing Organization Address [facility]/ZIP Co de Phone Number [facility] [address] [place] [address] [phone] * HIV-1/2 Antigen and Antibodies, Fourth Generation, with Reflexes (01/06/2024 12:38 PM EDT) HIV AB/AG Nonreactive Nonreactive [facility] Comment:HIV-1 p24 Ag and/or HIV-1/HIV-2 Ab not detected.A test result that is nonreactive does not exclude thepossibility of exposure to or infection with HIV-1 and/orHIV-2. Nonreactive results in this assay for individualswith prior exposure to HIV-1 and/or HIV-2 may be due toantigen and antibody levels that are below the limit ofdetection of this assay.The [employer] HIV Ag/Ab Combo assay result andsupplemental assay results should be interpreted inconjunction with the patient's clinical presentation,history and other laboratory results. If the results areinconsistent with clinical evidence, additional testing issuggested to confirm the result. Blood Venous blood specimen / Unknown 01/06/2024 12:38 PM EDT 01/06/2024 4:21 PM EDT us Zeinab Sykes MD LAB BLOOD ORDERABLES Fin al Result [facility] [address] [place] [phone] * Mammography Report 1 (03/15/2022 5:00 PM EDT) Anatomical Region Laterality Modality Breast Bilateral Mammography 03/15/2022 5:00 PM EDT Narrative 03/16/2022 8:33 AM EDT Refer to the Notes tab for result details [facility] Procedure: Mammography Report 1 Procedure Note ProviderParag MD - 10/10/2022 Refer to the Notes tab for result details [facility] Procedure: Mammography Report 1 us Evelyn Ledesma TRAFFIC OPERATIONS MANAGER IMG BI PROCEDURES Final Re sult * ALBUMIN, RANDOM URINE W/CREATININE (03/08/2022 3:04 PM EDT) Microalbumin Urine 1.2 See Note: mg/dL [facility] Comment: Reference Range: ?? Reference [...] Creatinine, Urine 244 20 - 275 mg/dL [facility] 03/08/2022 3:04 PM EDT Rebekah Guevara FIELD LABORER LAB URINE ORDERABLES Final Res ult Performing Organization Address [facility]/State/ZIP Co de Phone Number [facility] [address] * Hm Colonoscopy (11/05/2020 11:36 AM EDT) Historical Provider HEALTH MAINTENANCE Final Result * HPV mRNA E6/E7 (07/07/2020 12:00 AM EST) HPV nRNA E6/E7 Not Detected Not Detected [facility] Comment: This test was performed using the APTIMA HPV Assay ([employer] This assay detects E6/E7 viral messenger RNA (mRNA) from 14 high-risk HPV types (16,18,31,33,35,39,45,51,52,56,58,59,66,68). ?? The analytical performance characteristics of this assay have been determined by [employer]. The modifications have not been cleared or approved by the FDA. This assay has been validated pursuant to the CLIA regulations and is used for clinical purposes. 07/07/2020 Historical Provider LAB BLOOD ORDERABLES Sera l Result Performing Organization Address [facility]/ZIP Co de Phone Number [facility] [address] from Last 3 Months or Most Recently Relevant to Health Maintenance Insurance [facility] C3 MEDICARE DENTAL-[facility] MEDICAID STAND ADULT Care Teams Metal Spraying Machine Operator Relationship Specialty Start Date End Date Zeinab Sykes MD [address] [place] [address] PCP - General Internal Medicine 01/02/24 Tomeka Martins Baker Operator AutomaticGeriatric Physical Therapist 10/27/23
--- OUTSIDE RECORDS SUMMARY | 2024-11-02 12:04 | XMS_ITS | Encounter Summary ---
Author Organization [employer] Address [address] [facility] 7t [place] [address] Care Team Providers Care Powder Mixer Name Role Phone Zeinab Sykes MD Primary Care Provider + Reason for Visit * Reason Onset Date Comments Verbal Orders 10/29/2024 Encounter Details Date Type Department Care Team ([facility] st Contact Info) Description 10/29/2024 Telephone [facility] MEDICINE [address] [place], [place] [phone] Zeinab Sykes MD [address] [place] [address] Verbal Orders Social History Tobacco Use Types [...] 3:30 PM EDT TC placed to Marcia [phone] we're sorry the republican you have dialed is not accepting calls at this time (number documented in TC). RN unable to leave . TC placed to Marcia [phone] (number documented in contacts) providing verbal order for intermediate services. Marcia to f/u PRN. * Telephone Encounter - Darius Tom - 10/29/2024 3:03 PM EDT Tc from Marcia with Tj Ramos requesting a call back regarding Verbal Orders. Contact Marcia at [phone] documented in this encounter Plan of Treatment Upcoming Encounters Date Type Department Care Team (Late st Contact Info) Description 11/16/2024 11:00 AM EDT Nutrition [facility] DIABETES/NUTRITION [address] [place] [address] Juana Gusman, RD [address] [place] [address] 01/04/2025 11:00 AM EDT Office Visit [facility] ADULT DENTAL [address] [place], [place] [phone] Fabi Hogue [address] [place], [place] [phone] 01/10/2025 12:00 PM EDT Office Visit [facility] [address] [place] [address] Zeinab Sykes MD [address] [place], [place] [phone] 01/22/2025 11:00 AM EDT Office Visit [facility] [address] [place], [place] [phone] documented as of this encounter Goals Goal [...] documented as of this encounter Care Teams Powder Mixer Relationship Specialty Start Date End Date Zeinab Sykes MD [address] [place] [address] PCP - General Internal Medicine 01/02/24 Tomeka Martins Agricultural Plow OperatorCommodities Trader 10/27/23 documented as of this encounter
--- OUTSIDE RECORDS SUMMARY | 2024-11-02 12:04 | XMS_ITS | Encounter Summary ---
Author Organization [employer] [facility] Address [address] [place] [address] 7 [place] [address] Care Team Providers Care Animal Husbandry Technician Name Role Phone Evelyn Ledesma Primary Care Provider [phone] Oralia Aguila MD Primary Care Provider [phone] Zeinab Sykes MD Primary Care Provider + Reason for Visit * Reason Onset Date Comments Referral 02/03/2023 Renewal Encounter Details Date Type Department Care Team (Late st Contact Info) Description 02/03/2023 Telephone [facility] MEDICINE [address] [place] [phone] Evelyn Ledesma FNP [address] [place] [address] Dept of [place] [address] Referral (Renewal ) Social History Tobacco Use [...] Info) Description 11/16/2024 11:00 AM EDT Nutrition [facility] DIABETES/NUTRITION [address] [place] [address] Juana Gusman, MONICA [address] [place] [address] 01/04/2025 11:00 AM EDT Office Visit [facility] ADULT DENTAL [address] [place] [address] Mykel, Fabi [address] [place] [address] 01/10/2025 12:00 PM EDT Office Visit [facility] MEDICINE [address] [place] [address] Zeinab Sykes MD 230 [place] [address] 01/22/2025 11:00 AM EDT Office Visit [facility] MEDICINE [address] [place] [address] documented as of this encounter Goals Goal Patient Goal Type Associated Problems Recent Progress Patient-Stated? Author Patient will manage their medication General On track( 023 11:18 AM EDT) Citlali Ocampo, PharmD Note: Began medboxes. Goal achieved 11/19/22. Patient graduated from [facility]. documented as of this encounter Visit Diagnoses Not on filedocumented in this encounter Care Teams Animal Husbandry Technician Relationship Specialty Start Date End Date Evelyn Ledesma FNP PCP - General Family Medicine 03/15/22 04/25/23 Oralia Aguila MD [address] [place] [address] PCP - General Family Medicine 04/26/23 01/01/24 Zeinab Sykes MD [address] [place] [address] PCP - General Internal Medicine 01/02/24 Tomeka Martins Land Acquisition ManagerField Artillery Senior Sergeant 10/27/23 documented as of this encounter
--- OUTSIDE RECORDS SUMMARY | 2024-11-02 12:04 | XMS_ITS | Clinical Summary ---
Author Organization [facility], Address [address] [place] [address] [place] [address] Phone Care Team Providers Care Nursing Service Administrator Name Role Phone Evelyn Rodriguez Primary Care [...] this topic Insurance Medicaid [place] Care Teams Nursing Service Administrator Relationship Specialty Start Date End Date Evelyn Rodriguez FNP PCP - General 02/18/23
--- OUTSIDE RECORDS SUMMARY | 2024-11-02 12:04 | XMS_ITS | Encounter Summary ---
Author Organization [facility] Address [address] [place] [address] 7 [place] [address] Care Team Providers Care Head Automatic Sawyer Name Role Phone Evelyn Ledesma Primary Care Provider [phone] Oralia Aguila MD Primary Care Provider [phone] Zeinab Sykes MD Primary Care Provider + Reason for Visit * Reason Comments Med Refill Encounter Details Date Type Department Care Team (Late Contact Info) Description 02/05/2023 Refill [facility] MEDICINE [address] [place] [address] Evelyn Ledesma FNP [address] [place] [address] Dept [place] [address] Neuropathy Social History Tobacco Use Types Packs/Day [...] Info) Description 11/16/2024 11:00 AM EDT Nutrition [facility] DIABETES/NUTRITION [address] [place] [address] [place] [address] 01/04/2025 11:00 AM EDT Office Visit [facility] ADULT DENTAL [address] [place] [address] Ruben Hoguearis [address] [place] [address] 01/10/2025 12:00 PM EDT Office Visit [facility] MEDICINE [address] [place] [address] Zeinab Sykes MD [address] [place] [address] 01/22/2025 11:00 AM EDT Office Visit [address] [address] documented as of this encounter Goals Goal Patient Goal Type Associated Problems Recent Progress Patient-Stated? Author Patient will manage their medication General On track( 023 11:18 AM EDT) Citlali Ocampo, PharmD Note: Began medboxes. Goal achieved 11/19/22. Patient graduated from [facility]. documented as of this encounter Visit Diagnoses Diagnosis Neuropathy Mononeuritis of unspecified site documented in this encounter Care Teams Head Automatic Sawyer Relationship Specialty Start Date End Date Evelyn Ledesma FNP PCP - General Family Medicine 03/15/22 04/25/23 Oralia Aguila MD [address] [place] [address] PCP - General Family Medicine 04/26/23 01/01/24 Zeinab Sykes MD [address] [place] [address] PCP - General Internal Medicine 01/02/24 Tomeka Martins Marble CarverAssociate [employer] 10/27/23 documented as of this encounter
--- OUTSIDE RECORDS SUMMARY | 2024-11-02 12:04 | XMS_ITS | Encounter Summary ---
Author Organization [employer] Address [address] [facility] 7t [place] [address] Care Team Providers Care Wallpaperer Helper Name Role Phone Zeinab Sykes MD Primary Care Provider + Reason for Visit * Reason Comments Med Refill Encounter Details Date Type Department Care Team ([facility] st Contact Info) Description 05/04/2024 Refill [facility] MEDICINE [address] [place], [place] [phone] Zeinab Sykes MD [address] [place] [address] Other intervertebral disc displacement, lumbar region Social [...] Info) Description 11/16/2024 11:00 AM EDT Nutrition [facility] DIABETES/NUTRITION [address] [place] [address] Juana Gusman, MONICA [address] [place] [address] 01/04/2025 11:00 AM EDT Office Visit [facility] ADULT DENTAL [address] [place] [address] Mykel, Fabi [address] [place] [address] 01/10/2025 12:00 PM EDT Office Visit [facility] MEDICINE [address] [place] [address] Zeinab Sykes MD [address] [place] [address] 01/22/2025 11:00 AM EDT Office Visit [facility] MEDICINE [address] [place] [address] documented as of this encounter Goals Goal [...] documented as of this encounter Care Teams Wallpaperer Helper Relationship Specialty Start Date End Date Zeinab Sykes MD [address] [place] [address] PCP - General Internal Medicine 01/02/24 Tomeka Martins Senior Billing ConsultantLining Inserter 10/27/23 documented as of this encounter
--- OUTSIDE RECORDS SUMMARY | 2024-11-02 12:04 | XMS_ITS | Encounter Summary ---
Author Organization [facility] Address [address] [place] [address] 7t [place] [address] Care Team Providers Care Regional Sales Director Name Role Phone Zeinab Sykes MD Primary Care Provider + Reason for Visit * Reason Comments Dentures Encounter Details Date Type Department Care Team ([facility] st Contact Info) Description 10/31/2024 8:30 AM EDT Office Visit [facility] ADULT DENTAL [address] [place] [address] Gay Thompson, DDS [address] [place] [address] Fracture of removable partial denture (Primary Dx) [...] EDT Nutrition [facility] DIABETES/NUTRITION [address] [place], [place] [phone] Juana Gusman RD [address] [place], [place] [phone] 01/04/2025 11:00 AM EDT Office Visit [facility] ADULT DENTAL [address] [place], [place] [phone] Fabi Hogue [address] [place], [place] [phone] 01/10/2025 12:00 PM EDT Office Visit [facility] MEDICINE [address] [place] [address] Zeinab Sykes MD [address] [place] [address] 01/22/2025 11:00 AM EDT Office Visit [address] [address] Scheduled Orders Name Type Priority Associated Diagnoses [...] as of this encounter Care Teams Regional Sales Director Relationship Specialty Start Date End Date Zeinab Sykes MD [address] [place] [address] PCP - General Internal Medicine 01/02/24 Tomeka Martins Executive Communications ManagerProtection Analyst 10/27/23 documented as of this encounter
--- OUTSIDE RECORDS SUMMARY | 2024-11-02 12:04 | XMS_ITS | Continuity of Care Document ---
Author Organization [facility] Address [address] [place] [address] Phone Care Team Providers Care Apprentice Photographer Name Role Phone Waldo MADDOX FACS RVT Shiraz CHERY Unavailable Unavailable Allergies, Adverse Reactions, Alerts Substance Reaction Status Criticality latex Active No Information Medications Medication Instructions Dosage Effective Dates (start - stop) Status Comments lidocaine-prilocaine 2.5 %-2.5 % topical cream apply 2 hours before procedures for Pain - Active Procedures Procedure Date Office/Outpt E&M Established 15 Mins Oct Duplex Scan-extrem Veins; Uni/ 23 Endovenous Laser, 1st Vein Endovenous Laser, [...] E&M Established 15 Mins [facility], [address] [place] [address] Dr [address] [address]Pradeep [place], [id number], [place] tel:[phone] [facility] Venous insufficiency (chronic) (peripheral) 3 Waldo MADDOX FACS RVT MIRI Rapp. [address] [place] [address], [place], [address], [place]. tel:[phone] Referring Provider: Rebekah Guevara, [address] [place], [address]. tel:[phone] [facility] [place] MD [facility]IPS, [address] [place] [address] [address]Pradeep [place], [id number], [place] tel:[phone] [facility] [place] [facility] [place] Encntr for f/u exam aft trtmt for cond oth than malig neoplmVenous insufficiency (chronic) (peripheral) 3 Waldo MADDOX FACS RVT MIRI Rapp. [address] [place] [address], [place], [address], [place]. tel:[phone] Referring Provider: Rebekah Guevara, [address] [place] [address], [address]. tel:[phone] [facility], [address] [place] [address] [address]Pradeep [place], [id number], [place] tel:[phone] [facility] [place] [facility] [place] Venous insufficiency (chronic) (peripheral) 3 Waldo MADDOX FACS RVT MIRI Rapp. [address] [place] [address], [place], [address], [place]. tel:[phone] Referring Provider: Rebekah Guevara, [address] [place] [address], [address]. tel:[phone] [facility] [place] MD PHILLIPS, [address] [place] [address] [address]Pradeep [place], [id number], [place] tel:[phone] [facility] [place] [facility] [place] Venous insufficiency (chronic) (peripheral) 3 Waldo MADDOX FACS RVT MIRI Rapp. [address] [place] [address], [place] [address], [place], [address], [place]. tel:[phone] Referring Provider: Rebekah Guevara, [address] [place], [address]. tel:[phone] [facility], [address] [place] [address] [address]Pradeep [place], [id number], [place] tel:[phone] [facility] [place] [facility] [place] No Information 3 Waldo Rapp. [address] [facility], [address] [facility], [place], [address], [place]. tel:[phone] Referring Provider: Rebekah Guevara, [address] [place] [address], [address]. tel:[phone] [facility], [address] [place] [address] [address]Pradeep [place], [id number], [place] tel:[phone] [facility] [place] [facility] [place] Encntr for f/u exam aft trtmt for cond oth than malig neoplmVenous insufficiency (chronic) (peripheral) 3 [address]app[address] [place] [address], [place] [address], [place], [address], [place]. tel:[phone] Referring Provider: Rebekah Guevara, [address] [place] [address], [address]. 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 [place] [address], [facility] [address], [place], [address], [place]. tel:[phone] Referring Provider: Rebekah Guevara, [address] [place], [address]. tel:[phone] [facility] MD PHILLIPS, [address] [place] [address] [address]Pradeep [place], [id number], [place] tel:[phone] [facility] [place] [facility] [place] Venous insufficiency (chronic) (peripheral) 3 Waldo Rapp. [facility], [address], [place], [address], [place]. [phone] Referring Provider: Rebekah Guevara, [address] [place], [address]. tel:[phone] Family History Family Member Type Diagnosis Age At Onset No Information Payers Payer name Insurance type Covered alliance party ID Authorlitzy funes(s) Medical Assistance DANIEL [id number] Social History Type Description Quantity Date Captured [...]
--- OUTSIDE RECORDS SUMMARY | 2024-11-02 12:04 | XMS_ITS | Encounter Summary ---
Author Organization [employer] Address [address] [facility] 7t [place] [address] Care Team Providers Care President And Chief Operating Officer Name Role Phone Zeinab Sykes MD Primary Care Provider + Reason for Visit * Reason Onset Date Comments FYI 10/30/2024 Encounter Details Date Type Department Care Team ([facility] st Contact Info) Description 10/30/[address] [facility] MEDICINE [address] [place], [place] [phone] Zeinab Sykes MD 230 [place] [address] FYI Social History Tobacco Use Types Packs/Day [...] - 10/30/2024 10:05 AM EDT Tc from [place] with Tj hernández calling to inform start of services isn't till 11/06/24 due to pt request. documented in this encounter Plan of Treatment Upcoming Encounters Date Type Department Care Team (Late st Contact Info) Description 11/16/2024 11:[address] [facility] DIABETES/NUTRITION [address] [place] [address] Juana Gusman, RD [address] [place], [place] [phone] 01/04/2025 11:00 AM EDT Office Visit [facility] ADULT DENTAL [address] [place] [address] Mykel, Fabi [address] [place] [address] 01/10/2025 12:00 PM EDT Office Visit [facility] MEDICINE [address] [place] [address] Zeinab Sykes MD [address] [place] [address] 01/22/2025 11:00 AM EDT Office Visit [facility] MEDICINE [address] [place] [address] documented as of this encounter Goals Goal Patient Goal Type Associated Problems Recent Progress Patient-Stated? Author Patient will manage their medication General On track( 023 11:18 AM EDT) Citlali Ocampo, PharmCatrachita Note: Began medboxes. Goal achieved 11/19/22. Patient graduated from [facility]. documented as of this encounter Visit Diagnoses Not on filedocumented in this encounter Additional Health Concerns Assessment Noted Time PHQ-9 Depression Total Score: 22 025 10:31 AM EST documented as of this encounter Care Teams President And Chief Operating Officer Relationship Specialty Start Date End Date Zeinab Sykes MD [address] [place] [address] PCP - General Internal Medicine 01/02/24 Tomeka Martins Automotive Sales SpecialistShark Biologist 10/27/23 documented as of this encounter
--- OUTSIDE RECORDS SUMMARY | 2024-11-02 12:05 | XMS_ITS | Encounter Summary ---
Author Organization [facility] Address [address] [place] [address] 7t [place] [address] Care Team Providers Care Population Health Coach Name Role Phone Oralia Aguila MD Primary Care Provider Zeinab Sykes MD Primary Care Provider + Reason for Visit * Reason Comments Med Refill Encounter Details Date Type Department Care Team (Late Contact Info) Description 07/06/2023 Refill [facility] 230 [place] [address] Bryn Franklin MD [address] [place], [place] [phone] Social History Tobacco Use Types Packs/Day Years [...] 11/16/2024 11:00 AM EDT Nutrition [facility] DIABETES/NUTRITION 230 [place] [address] [place] [address] 01/04/2025 11:00 AM EDT Office Visit [facility] ADULT DENTAL [address] [place] [address] Fabi Hogue 230 [place] [address] 01/10/2025 12:00 PM EDT Office Visit [facility] MEDICINE [address] [place] [address] Zeinab Sykes MD 230 [place] [address] 01/22/2025 11:00 AM EDT Office Visit [facility] MEDICINE [address] [place] [address] documented as of this encounter Goals Goal Patient Goal Type Associated Problems Recent Progress Patient-Stated? Author Patient will manage their medication General On track( 023 11:18 AM EDT) Citlali Ocampo, PharmD Note: Began medboxes. Goal achieved 11/19/22. Patient graduated from [facility]. documented as of this encounter Visit Diagnoses Not on filedocumented in this encounter Care Teams Population Health Coach Relationship Specialty Start Date End Date Oralia Aguila MD [address] [place] [address] PCP - General Family Medicine 04/26/23 01/01/24 Zeinab Sykes MD [address] [place] [address] PCP - General Internal Medicine 01/02/24 Tomeka Martins Information DeveloperReverberatory Furnace Operator 10/27/23 documented as of this encounter
--- OUTSIDE RECORDS SUMMARY | 2024-11-02 12:05 | XMS_ITS | Encounter Summary ---
Author Organization [facility] Address [address] [place] [address] 7t [place] [address] Care Team Providers Care Business Writer Name Role Phone Oralia Aguila MD Primary Care Provider [phone] Zeinab Sykes MD Primary Care Provider + Reason for Visit * Reason Comments Med Refill Encounter Details Date Type Department Care Team (Late Contact Info) Description 09/21/2023 Refill [facility] MEDICINE 230 [place], [place] [phone] Oralia Aguila MD 230 [place], [place] [phone] Neuropathy Social History Tobacco Use Types Packs/Day [...] Info) Description 11/16/2024 11:00 AM EDT Nutrition [facility] DIABETES/NUTRITION 230 [place], [place] [phone] Juana Gusman RD 230 [place], [place] [phone] 01/04/2025 11:00 AM EDT Office Visit [facility] ADULT DENTAL 230 [place] [address] Fabi oHgue 230 [place] [address] 01/10/2025 12:00 PM EDT Office Visit [facility] MEDICINE [address] [place] [address] Zeinab Sykes MD 230 [place] [address] 01/22/2025 11:00 AM EDT Office Visit [facility] MEDICINE [address] [place] [address] documented as of this encounter Goals Goal Patient Goal Type Associated Problems Recent Progress Patient-Stated? Author Patient will manage their medication General On track( 023 11:18 AM EDT) Citlali Ocampo, PharmD Note: Began medboxes. Goal achieved 11/19/22. Patient graduated from [facility]. documented as of this encounter Visit Diagnoses Diagnosis Neuropathy Mononeuritis of unspecified site documented in this encounter Care Teams Business Writer Relationship Specialty Start Date End Date Oralia Aguila MD [address] [place] [address] PCP - General Family Medicine 04/26/23 01/01/24 Zeinab Sykes MD [address] [place] [address] PCP - General Internal Medicine 01/02/24 Tomeka Martins Office RepGrader Meat 10/27/23 documented as of this encounter
--- OUTSIDE RECORDS SUMMARY | 2024-11-02 12:05 | XMS_ITS | Encounter Summary ---
Author Organization [employer] [facility] Address [address] [place] [address] 7t [place] [address] Care Team Providers Care Animal Rides Manager Name Role Phone Oralia Aguila MD Primary Care Provider [phone] Zeinab Sykes MD Primary Care Provider + Reason for Visit * Reason Comments Med Refill Encounter Details Date Type Department Care Team (Late Contact Info) Description 08/09/2023 Refill [facility] MEDICINE 230 [place], [place] [phone] Oralia Aguila MD 230 [place], [place] [phone] Other intervertebral disc displacement, lumbar region Social [...] EDT Nutrition [facility] DIABETES/NUTRITION 230 [place], [place] [phone] Juana Gusman RD 230 [place], [place] [phone] 01/04/2025 11:00 AM EDT Office Visit [facility] ADULT DENTAL 230 [place], [place] [phone] Fabi Hogue 230 [place], [place] [phone] 01/10/2025 12:00 PM EDT Office Visit [facility] MEDICINE [address] [place] [address] [phone] Zeinab Sykes MD 230 [place], [place] [phone] 01/22/2025 11:00 AM EDT Office Visit [facility] MEDICINE [address] [place] [phone] documented as of this encounter Goals Goal Patient Goal Type Associated Problems Recent Progress Patient-Stated? Author Patient will manage their medication General On track( 023 11:18 AM EDT) Citlali Ocampo, PharmD Note: Began medboxes. Goal achieved 11/19/22. Patient graduated from [facility]. documented as of this encounter Visit Diagnoses Diagnosis Other intervertebral disc displacement, lumbar region documented in this encounter Care Teams Animal Rides Manager Relationship Specialty Start Date End Date Oralia Aguila MD [address] [place] [address] PCP - General Family Medicine 04/26/23 01/01/24 Zeinab Sykes MD [address] [place] [address] PCP - General Internal Medicine 01/02/24 Tomeka Martins Interior Design AssistantElectrical And Radio Aircraft Mechanic 10/27/23 documented as of this encounter
--- OUTSIDE RECORDS SUMMARY | 2024-11-02 12:05 | XMS_ITS | Encounter Summary ---
Author Organization [employer] Address [address] [place] [address] 7t [place] [address] Care Team Providers Care Lsat Instructor Name Role Phone Zeinab Sykes MD Primary Care Provider + Reason for Visit * Reason Onset Date Comments MED B form 11/01/2024 Encounter Details Date Type Department Care Team ([facility] st Contact Info) Description 11/01/2024 Telephone [facility] MEDICINE 230 [place], [place] [phone] Zeinab Sykes MD 230 [place] [address] MED B form Social History Tobacco Use Types Packs/Day Years [...] Telephone Encounter - Monalisa Jerome RN - 11/01/2024 3:32 PM EDT RN received medB form for test strips and lancets. PCP has signed and RN has faxed to pharmacy at [phone], confirmation page received. documented in this encounter Plan of Treatment Upcoming Encounters Date Type Department Care Team (Late st Contact Info) Description 11/16/2024 11:00 AM EDT Nutrition [facility] DIABETES/NUTRITION 230 [place] [address] [place] [address] 01/04/2025 11:00 AM EDT Office Visit [facility] ADULT DENTAL 230 [place] [address] Ruben Hoguearis 230 [place] [address] 01/10/2025 12:00 PM EDT Office Visit [facility] MEDICINE 230 [place] [address] Zeinab Sykes MD 230 [place] [address] 01/22/2025 11:00 AM EDT Office Visit [facility] MEDICINE 230 [place] [address] documented as of this encounter Goals Goal Patient Goal Type Associated Problems Recent Progress Patient-Stated? Author Patient will manage their medication General On track( 023 11:18 AM EDT) Citlali Ocampo PharmD Note: Began medboxes. Goal achieved 11/19/22. Patient graduated from [facility]. documented as of this encounter Visit Diagnoses Not on filedocumented in this encounter Additional Health Concerns Assessment Noted Time PHQ-9 Depression Total Score: 22 025 10:31 AM EST documented as of this encounter Care Teams Lsat Instructor Relationship Specialty Start Date End Date Zeinab Sykes MD 230 [place] [address] PCP - General Internal Medicine 01/02/[address] LiaisonPr Manager 10/27/23 documented as of this encounter
--- OUTSIDE RECORDS SUMMARY | 2024-11-02 12:05 | XMS_ITS | Encounter Summary ---
Author Organization [employer] [facility] Address [address] [place] [address] 7t [place] [address] Care Team Providers Care Sales Receptionist Name Role Phone Baltazar Evelyn EDWARDS Primary Care Provider [phone] Oralia Aguila MD Primary Care Provider [phone] Zeinab Sykes MD Primary Care Provider + Encounter Details Date Type Department Care Team (Latest Contact Info) Description 10/30/2020 Abstract [facility] CONVERSIONS Dental, Provider, DDS Social [...] Info) Description 11/16/2024 11:00 AM EDT Nutrition [facility] DIABETES/NUTRITION 230 [place] [address] Juana Gusman, MONICA 230 [place], [place] [phone] 01/04/2025 11:00 AM EDT Office Visit [facility] ADULT DENTAL 230 [place] [address] Fabi Hogue [address] [place] [address] 01/10/2025 12:00 PM EDT Office Visit [facility] MEDICINE [address] [place] [address] Zeinab Sykes MD [address] [place] [address] 01/22/2025 11:00 AM EDT Office Visit [address] [address] documented as of this encounter Visit Diagnoses Not on filedocumented in this encounter Care Teams Sales Receptionist Relationship Specialty Start Date End Date Evelyn Ledesma FNP PCP - General Family Medicine 03/15/22 04/25/23 Oralia Aguila MD [address] [place] [address] PCP - General Family Medicine 04/26/23 01/01/24 Zeinab Sykes MD [address] [place] [address] PCP - General Internal Medicine 01/02/24 Tomeka Martins Civil LawyerMedical Education Specialist 10/27/23 documented as of this encounter
--- OUTSIDE RECORDS SUMMARY | 2024-11-02 12:05 | XMS_ITS | Encounter Summary ---
Author Organization [facility] Address [address] [place] [address] 7t [place] [address] Care Team Providers Care Suppository Molding Machine Operator Name Role Phone Baltazar Evelyn EDWARDS Primary Care Provider [phone] Oralia Aguila MD Primary Care Provider [phone] Zeinab Sykes MD Primary Care Provider + Encounter Details Date Type Department Care Team (Latest Contact Info) Description 12/21/2018 Abstract [facility] CONVERSIONS Dental, Provider, DDS Social History [...] Nutrition [facility] DIABETES/NUTRITION 230 [place] [address] Juana Gusman, MONICA 230 [place] [address] 01/04/2025 11:00 AM EDT Office Visit [facility] ADULT DENTAL 230 [place] [address] Fabi Hogue 230 [place] [address] 01/10/2025 12:00 PM EDT Office Visit [facility] MEDICINE [address] [place] [address] Zeinab Sykes MD [address] [place] [address] 01/22/2025 11:00 AM EDT Office Visit [address] [address] documented as of this encounter Visit Diagnoses Not on filedocumented in this encounter Care Teams Suppository Molding Machine Operator Relationship Specialty Start Date End Date Evelyn Ledesma FNP PCP - General Family Medicine 03/15/22 04/25/23 Oralia Aguila MD [address] [place] [address] PCP - General Family Medicine 04/26/23 01/01/24 Zeinab Sykes MD [address] [place] [address] PCP - General Internal Medicine 01/02/24 Tomeka Martins Med DirFirmware Software Verification Engineer 10/27/23 documented as of this encounter
--- OUTSIDE RECORDS SUMMARY | 2024-11-02 12:05 | XMS_ITS | Encounter Summary ---
Author Organization [facility] [place] [facility] Address [address] [place] [address] 7t [place] [address] Care Team Providers Care Children'S Attendant Name Role Phone Oralia Aguila MD Primary Care Provider [phone] Zeinab Sykes MD Primary Care Provider + Reason for Visit * Reason Onset Date Comments Med Refill 05/05/2023 Encounter Details Date Type Department Care Team (Late st Contact Info) Description 05/05/2023 Refill [facility] MEDICINE 230 [place], [place] [phone] Oralia Aguila MD 230 [place], [place] [phone] Other intervertebral disc displacement, lumbar region Social [...] 5- 325 MG tablet to besent to [facility] [place], [place] - [address] [facility] documented in this encounter Plan of Treatment Upcoming Encounters Date Type Department Care Team (Late st Contact Info) Description 11/16/2024 11:00 AM EDT Nutrition [facility] DIABETES/NUTRITION 230 [place] [address] Juana Gusman, MONICA 230 [place] [address] 01/04/2025 11:00 AM EDT Office Visit [facility] ADULT DENTAL 230 [place] [address] Mykel, Fabi 230 [place] [address] 01/10/2025 12:00 PM EDT Office Visit [facility] MEDICINE [address] [place] [address] Zeinab Sykes MD [address] [place] [address] 01/22/2025 11:00 AM EDT Office Visit [facility] MEDICINE [address] [place] [address] documented as of this encounter Goals Goal [...] region documented in this encounter Care Teams Children'S Attendant Relationship Specialty Start Date End Date Oralia Aguila MD [address] [place] [address] PCP - General Family Medicine 04/26/23 01/01/24 Zeinab Sykes MD [address] [place] [address] PCP - General Internal Medicine 01/02/24 Tomeka Martins Account AdministratorTemporary Administrative Assistant 10/27/23 documented as of this encounter
--- OUTSIDE RECORDS SUMMARY | 2024-11-02 12:05 | XMS_ITS | Encounter Summary ---
Author Organization [employer] [facility] Address [address] [place] [address] 7t [place] [address] Care Team Providers Care Manager Installation Name Role Phone Zeinab Sykes MD Primary Care Provider + Reason for Visit * Reason Onset Date Comments Med Refill 07/16/2024 Encounter Details Date Type Department Care Team ([facility] st Contact Info) Description 07/16/[address] [facility] MEDICINE 230 [place], [place] [phone] Zeinab Sykes MD 230 [place], [place] [phone] Med Refill Social History Tobacco Use Types [...] 10 MG capsule To be sent to: [facility] pharmacy documented in this encounter Plan of Treatment Upcoming Encounters Date Type Department Care Team (Late st Contact Info) Description 11/16/2024 11:00 AM EDT Nutrition [facility] DIABETES/NUTRITION 230 [place], [place] [phone] Juana Gusman RD [address] [place], [place] [phone] 01/04/2025 11:00 AM EDT Office Visit [facility] ADULT DENTAL [address] [place] [address] Fabi Hogue [address] [place] [address] 01/10/2025 12:00 PM EDT Office Visit [facility] MEDICINE [address] [place] [address] Zeinab Sykes MD [address] [place] [address] 01/22/2025 11:00 AM EDT Office Visit [address] [address] documented as of this encounter Goals Goal [...] as of this encounter Care Teams Manager Installation Relationship Specialty Start Date End Date Zeinab Sykes MD [address] [place] [address] PCP - General Internal Medicine 01/02/24 Tomeka Martins Manager Technical TrainingNeuropsychology Medical Consultant 10/27/23 documented as of this encounter
--- OUTSIDE RECORDS SUMMARY | 2024-11-02 12:05 | XMS_ITS | Encounter Summary ---
Author Organization [employer] [facility] Address [address] [place] [address] 7t [place] [address] Care Team Providers Care Cost Controller Name Role Phone Oralia Aguila MD Primary Care Provider [phone] Zeinab Sykes MD Primary Care Provider + Reason for Visit * Reason Onset Date Comments antibiotics pre med 07/19/2023 Encounter Details Date Type Department Care Team ([facility] st Contact Info) Description 07/19/2023 Telephone [facility] ADULT DENTAL [address] [place] [address] AttStefany terry, DDS [address] [place], [place] [phone] antibiotics pre med Social History Tobacco Use [...] Info) Description 11/16/2024 11:00 AM EDT Nutrition [facility] DIABETES/NUTRITION [address] [place] [address] Juana Gusman, MONICA [address] [place] [address] 01/04/2025 11:00 AM EDT Office Visit [facility] ADULT DENTAL [address] [place] [address] Mykel, Fabi [address] [place] [address] 01/10/2025 12:00 PM EDT Office Visit [facility] MEDICINE [address] [place] [address] Zeinab Sykes MD [address] [place] [address] 01/22/2025 11:00 AM EDT Office Visit [facility] MEDICINE [address] [place] [address] documented as of this encounter Goals Goal Patient Goal Type Associated Problems Recent Progress Patient-Stated? Author Patient will manage their medication General On track( 023 11:18 AM EDT) Citlali Ocampo, PharmD Note: Began medboxes. Goal achieved 11/19/22. Patient graduated from [facility]. documented as of this encounter Visit Diagnoses Not on filedocumented in this encounter Care Teams Cost Controller Relationship Specialty Start Date End Date Oralia Aguila MD [address] [place] [address] PCP - General Family Medicine 04/26/23 01/01/24 Zeinab Sykes MD [address] [place] [address] PCP - General Internal Medicine 01/02/24 Tomeka Martins Civil LawyerFarm Hand 10/27/23 documented as of this encounter
== END 2024-11-02 12:05 | disposition home or self-care (01) ==
LOC: HO.HOS 11:00
PROVIDERS: PCP Internal Medicine
DX: M25.531 Pain in right wrist (principal); M25.532 Pain in left wrist
CPT/HCPCS: 99203

== ENCOUNTER 2024-11-02 11:00 | Outpatient (REF) | payer MEDICARE, MEDICAID, SELFPAY ==
--- NOTE | ~2024-11-02 | XR_ITS ---
EXAMINATION: XR WRIST, BILATERAL CLINICAL INFORMATION: M25.531 - Pain in right wrist COMPARISON: Left wrist 10/16/2024, bilateral hands and 07/26/2022. TECHNIQUE: PA, lateral, oblique, and scaphoid views of the the bilateral wrists. FINDINGS: RIGHT WRIST: No fracture, dislocation, or suspicious bone lesion. Normal carpal alignment. No erosions evident. There is mild chondrocalcinosis of the TFCC. Moderate osteoarthrosis of the first CMC joint. Joint spaces otherwise preserved. Normal soft tissues. LEFT WRIST: No fracture, dislocation, or suspicious bone lesion. Normal carpal alignment. No erosions evident. Moderate osteoarthrosis of the first CMC joint. Joint spaces otherwise preserved. Normal soft tissues. XR/XR Wrist Jah min 3V IMPRESSION: 1. No acute bony abnormalities of either wrist. 2. 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 3. Subtle chondrocalcinosis of the TFCC right wrist. Electronically signed by: Jose Lagunas MD 11/02/2024 12:32 PM EDT
--- OUTSIDE RECORDS SUMMARY | 2024-11-02 12:44 | XMS_ITS | Encounter Summary ---
Author Organization [employer] Address [address] [facility] 7t [place] [address] Care Team Providers Care Lithographic Proofer Apprentice Name Role Phone Zeinab Sykes MD Primary Care Provider + Reason for Visit * Reason Onset Date Comments Verbal Orders 10/29/2024 Encounter Details Date Type Department Care Team ([facility] st Contact Info) Description 10/29/2024 Telephone [facility] MEDICINE 230 [place], [place] [phone] Zeinab Sykes MD 230 [place] [address] Verbal Orders Social History Tobacco Use Types [...] 3:30 PM EDT TC placed to Marcia [phone] we're sorry the green party you have dialed is not accepting calls at this time (number documented in TC). RN unable to leave . TC placed to Marcia [phone] (number documented in contacts) providing verbal order for detention services. Marcia to f/u PRN. * Telephone Encounter - Darius Tom - 10/29/2024 3:03 PM EDT Tc from Marcia with Tj Ramos requesting a call back regarding Verbal Orders. Contact Marcia at [phone] documented in this encounter Plan of Treatment Upcoming Encounters Date Type Department Care Team (Late st Contact Info) Description 11/16/2024 11:00 AM EDT Nutrition [facility] DIABETES/NUTRITION 230 [place] [address] Juana Gusman, RD 230 [place] [address] 01/04/2025 11:00 AM EDT Office Visit [facility] ADULT DENTAL 230 [place], [place] [phone] Fabi Hogue 230 [place], [place] [phone] 01/10/2025 12:00 PM EDT Office Visit [facility] MEDICINE 230 [place] [address] Zeinab Sykes MD 230 [place], [place] [phone] 01/22/2025 11:00 AM EDT Office Visit [facility] MEDICINE 230 [place], [place] [phone] documented as of this encounter Goals Goal Patient Goal Type Associated Problems Recent Progress Patient-Stated? Author Patient will manage their medication General On track( 023 11:18 AM EDT) Citlali Ocampo, Anoop Note: Began medboxes. Goal achieved 11/19/22. Patient graduated from [facility]. documented as of this encounter Visit Diagnoses Not on filedocumented in this encounter Additional Health Concerns Assessment Noted Time PHQ-9 Depression Total Score: 22 025 10:31 AM EST documented as of this encounter Care Teams Lithographic Proofer Apprentice Relationship Specialty Start Date End Date Zeinab Sykes MD [address] [place] [address] PCP - General Internal Medicine 01/02/24 Tomeka Martins J2Ee ArchitectStaff Physical Therapist 10/27/23 documented as of this encounter
--- OUTSIDE RECORDS SUMMARY | 2024-11-02 12:44 | XMS_ITS | Encounter Summary ---
Author Organization [employer] Address [address] [place] [address] 7t [place] [address] Care Team Providers Care Human Factors Scientist Name Role Phone Evelyn Ledesma Primary Care Provider [phone] Oralia Aguila MD Primary Care Provider [phone] Zeinab Sykes MD Primary Care Provider + Reason for Visit * Reason Onset Date Comments medical clearance 02/11/2023 Encounter Details Date Type Department Care Team (Late st Contact Info) Description 02/11/2023 Telephone [facility] ADULT DENTAL [address] [place] [address] Asad Shore DDS [address] [place] [address] medical clearance Social History Tobacco Use Types [...] AM EDT Nutrition [facility] DIABETES/NUTRITION [address] [place] [address] [place] [address] 01/04/2025 11:00 AM EDT Office Visit [facility] ADULT DENTAL [address] [place] [address] Mykel, Fabi [address] [place] [address] 01/10/2025 12:00 PM EDT Office Visit [facility] MEDICINE [address] [place] [address] Zeinab Sykes MD [address] [place] [address] 01/22/2025 11:00 AM EDT Office Visit [facility] MED[facility] [address] [place] [address] documented as of this encounter Goals Goal Patient Goal Type Associated Problems Recent Progress Patient-Stated? Author Patient will manage their medication General On track( 023 11:18 AM EDT) Citlali Ocampo, PharmD Note: Began medboxes. Goal achieved 11/19/22. Patient graduated from [facility]. documented as of this encounter Visit Diagnoses Not on filedocumented in this encounter Care Teams Human Factors Scientist Relationship Specialty Start Date End Date Evelyn Ledesma FNP PCP - General Family Medicine 03/15/22 04/25/23 Oralia Aguila MD [address] [place] [address] PCP - General Family Medicine 04/26/23 01/01/24 Zeinab Sykes MD [address] [place] [address] PCP - General Internal Medicine 01/02/24 Tomeka Martins Treasury AccountantTinning Machine Set Up Operator 10/27/23 documented as of this encounter
--- OUTSIDE RECORDS SUMMARY | 2024-11-02 12:44 | XMS_ITS | Encounter Summary ---
Author Organization [employer] Address [address] [place] [address] 7t [place] [address] Care Team Providers Care Desk Editor Name Role Phone Zeinab Sykes MD Primary Care Provider + Reason for Visit * Reason Onset Date Comments MED B form 11/01/2024 Encounter Details Date Type Department Care Team ([facility] st Contact Info) Description 11/01/2024 Telephone [facility] MEDICINE [address] [place], [place] [phone] Zeinab Sykes MD [address] [place] [address] MED B form Social History Tobacco Use [...] and RN has faxed to pharmacy at [phone], confirmation page received. documented in this encounter Plan of Treatment Upcoming Encounters Date Type Department Care Team (Late st Contact Info) Description 11/16/2024 11:00 AM EDT Nutrition [facility] DIABETES/NUTRITION [address] [place] [address] [place] [address] 01/04/2025 11:00 AM EDT Office Visit [facility] ADULT DENTAL [address] [place] [address] Ruben Hoguearis [address] [place] [address] 01/10/2025 12:00 PM EDT Office Visit [facility] MEDICINE [address] [place] [address] Zeinab Sykes MD [address] [place] [address] 01/22/2025 11:00 AM EDT Office Visit [facility] MEDICINE [address] [place] [address] documented as of this encounter Goals Goal Patient Goal Type Associated Problems Recent Progress Patient-Stated? Author Patient will manage their medication General On track( 023 11:18 AM EDT) Citlali Ocampo PharmD Note: Began medboxes. Goal achieved 11/19/22. Patient graduated from [facility]. documented as of this encounter Visit Diagnoses Not on filedocumented in this encounter Additional Health Concerns Assessment Noted Time PHQ-9 Depression Total Score: 22 025 10:31 AM EST documented as of this encounter Care Teams Desk Editor Relationship Specialty Start Date End Date Zeinab Sykes MD [address] [place] [address] PCP - General Internal Medicine 01/02/24 Tomeka Martins Customer Accounts AdvisorDressing Machine Operator 10/27/23 documented as of this encounter
--- OUTSIDE RECORDS SUMMARY | 2024-11-02 12:44 | XMS_ITS | Encounter Summary ---
Author Organization [employer] [facility] Address [address] [place] [address] 7t [place] [address] Care Team Providers Care Title Investigator Name Role Phone Baltazar Evelyn EDWARDS Primary Care Provider [phone] Oralia Aguila MD Primary Care Provider [phone] Zeinab Sykes MD Primary Care Provider + Encounter Details Date Type Department Care Team (Latest Contact Info) Description 12/21/2018 Abstract [facility] CONVERSIONS Dental, Provider, DDS Social History Tobacco [...] 11/16/2024 11:00 AM EDT Nutrition [facility] DIABETES/NUTRITION [address] [place] [address] Juana Gusman, MONICA [address] [place] [address] 01/04/2025 11:00 AM EDT Office Visit [facility] ADULT DENTAL [address] [place] [address] Fabi Hogue [address] [place] [address] 01/10/2025 12:00 PM EDT Office Visit [facility] MEDICINE [address] [place] [address] Zeinab Sykes MD [address] [place] [address] 01/22/2025 11:00 AM EDT Office Visit [address] [address] documented as of this encounter Visit Diagnoses Not on filedocumented in this encounter Care Teams Title Investigator Relationship Specialty Start Date End Date Evelyn Ledesma FNP PCP - General Family Medicine 03/15/22 04/25/23 Oralia Aguila MD [address] [place] [address] PCP - General Family Medicine 04/26/23 01/01/24 Zeinab Sykes MD [address] [place] [address] PCP - General Internal Medicine 01/02/24 Tomeka Martins [place] SupervisorConsumer Relations Specialist 10/27/23 documented as of this encounter
--- OUTSIDE RECORDS SUMMARY | 2024-11-02 12:44 | XMS_ITS | Encounter Summary ---
Author Organization [employer] [facility] Address [address] [place] [address] 7t [place] [address] Care Team Providers Care Jewelry Sales Coordinator Name Role Phone Evelyn Ledesma Primary Care Provider [phone] Oralia Aguila MD Primary Care Provider Zeinab Sykes MD Primary Care Provider + Encounter Details Date Type Department Care Team (Late Contact Info) Description 08/20/2022 Orders Only [facility] MEDICINE [address] [place], [place] [phone] Karen Henderson FNP Social History Tobacco Use [...] Info) Description 11/16/2024 11:00 AM EDT Nutrition [facility] DIABETES/NUTRITION [address] [place], [place] [phone] Juana Gusman, MONICA [address] [place] [address] 01/04/2025 11:00 AM EDT Office Visit [facility] ADULT DENTAL [address] [place] [address] Fabi Hogue [address] [place] [address] 01/10/2025 12:00 PM EDT Office Visit [facility] MEDICINE [address] [place] [address] Zeinab Sykes MD [address] [place] [address] 01/22/2025 11:00 AM EDT Office Visit [facility] [address] [place] [address] documented as of this encounter Visit Diagnoses Not on filedocumented in this encounter Care Teams Jewelry Sales Coordinator Relationship Specialty Start Date End Date Evelyn Ledesma FNP PCP - General Family Medicine 03/15/22 04/25/23 Oralia Aguila MD [address] [place] [address] PCP - General Family Medicine 04/26/23 01/01/24 Zeinab Sykes MD [address] [place] [address] PCP - General Internal Medicine 01/02/24 Tomeka Martins Blade WorkerNews Library Director 10/27/23 documented as of this encounter
--- OUTSIDE RECORDS SUMMARY | 2024-11-02 12:44 | XMS_ITS | Encounter Summary ---
Author Organization [employer] Address [address] [facility] 7t [place] [address] Care Team Providers Care Yard Stocker Name Role Phone Zeinab Sykes MD Primary Care Provider + Reason for Visit * Reason Onset Date Comments FYI 10/30/2024 Encounter Details Date Type Department Care Team ([facility] st Contact Info) Description 10/30/2024 Telephone [facility] MEDICINE [address] [place], [place] [phone] Zeinab Sykes MD [address] [place] [address] FYI Social History Tobacco Use Types Packs/Day [...] - 10/30/2024 10:05 AM EDT Tc from [place] with Tj hernández calling to inform start of services isn't till 11/06/24 due to pt request. documented in this encounter Plan of Treatment Upcoming Encounters Date Type Department Care Team (Late st Contact Info) Description 11/16/2024 11:00 AM EDT Nutrition [facility] DIABETES/NUTRITION [address] [place] [address] Juana Gusman, RD [address] [place], [place] [phone] 01/04/2025 11:00 AM EDT Office Visit [facility] ADULT DENTAL [address] [place] [address] Mykel, Fabi [address] [place] [address] 01/10/2025 12:00 PM EDT Office Visit [facility] MEDICINE [address] [place] [address] Zeinab Sykes MD [address] [place] [address] 01/22/2025 11:00 AM EDT Office Visit [facility] MEDICINE [address] [place] [address] documented as of this encounter Goals Goal Patient Goal Type Associated Problems Recent Progress Patient-Stated? Author Patient will manage their medication General On track( 023 11:18 AM EDT) Citlali Ocampo, PharmCatrachita Note: Began medboxes. Goal achieved 11/19/22. Patient graduated from [facility]. documented as of this encounter Visit Diagnoses Not on filedocumented in this encounter Additional Health Concerns Assessment Noted Time PHQ-9 Depression Total Score: 22 025 10:31 AM EST documented as of this encounter Care Teams Yard Stocker Relationship Specialty Start Date End Date Zeinab Sykes MD [address] [place] [address] PCP - General Internal Medicine 01/02/24 Tomeka Martins House Wirer HelperBanquet Attendant 10/27/23 documented as of this encounter
--- OUTSIDE RECORDS SUMMARY | 2024-11-02 12:44 | XMS_ITS | Clinical Summary ---
Author Organization [facility] Address [address] [place] [address] 7t [place] [address] Care Team Providers Care Plumber Supervisor Name Role Phone Zeinab Sykes MD [...] in the morning. Active oxymetazoline (Afrin Nasal [place]) 0.05 % nasal spray Administer 2 sprays [...] complication, without long-term current use of insulin ([facility]) 1 each by Other route Once per day. USE TO TEST BLOOD SUGAR ONCE A DAY 100 each 3 024 Active glucose blood (FREESTYLE LITE) test stripIndications:T ype 2 diabetes mellitus without complication, without long-term current use of insulin ([facility]) USE TO TEST BLOOD SUGAR ONCE A DAY 100 each 3 024 Active sodium chloride ([place] Nasal [place]) 0.65 % nasal sprayIndications:A cute nasopharyngitis Administer 1 spray into each nostril if needed for congestion. 30 mL 1 025 2025 Active Alcohol Swabs (Alcohol Prep) padsIndications:Ty pe 2 diabetes mellitus without complication, without long-term current use of insulin ([facility]) USE TWICE DAILY 100 each [...] 1 Active ergocalciferol (Vitamin D2) 1.25 MG (65152 UT) capsule Take 1 capsule (1.25 mg) [...] 2024 Discontinued ergocalciferol (Vitamin D2) 1.25 MG (44631 UT) capsule TAKE 1 CAPSULE BY MOUTH [...] bx, I will fu or refer to BATCH UNLOADER after US reports. Left foot pain 03/29/2024 [...] L4-5 and right L5-S1 decompressive laminectomy at [facility] - surgeon Dr. Melia Pedroza DME request for 10-in-1 pillow on 07/31/24 (not approved by insurance) Assessment & Plan (09/27/2024 11:23 AM EDT): Known DDD L-spine with radiculopathy sxs 05/26/2018 - Lumbar decompression surgery: L4-5 and right L5-S1 decompressive laminectomy at [facility] - surgeon Dr. Melia RIOS request for 10-in-1 pillow on 07/31/24 (not approved by insurance) Assessment & Plan (07/31/2024 4:58 PM EST): Known DDD L-spine with radiculopathy sxs 05/26/2018 - Lumbar decompression surgery: L4-5 and right L5-S1 decompressive laminectomy at [facility] - surgeon Dr. Melia Pedroza DME request for 10-in-1 pillow on 07/31/24 Assessment & Plan (05/29/2024 5:18 PM EST): Known DDD L-spine with radiculopathy sxs 05/26/2018 - Lumbar decompression surgery: L4-5 and right L5-S1 decompressive laminectomy at [facility] - surgeon Dr. 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 (Last evaluated Jul 2024 [...] in 3mo Fatty liver 02/04/2024 Overview (03/29/2024): [facility] abd US on [...] of scalp 01/02/2024 Overview (01/02/2024): Seen at [facility] dermatology Assessment & Plan (03/20/2024 3:50 PM EDT): Generally well controlled, encouraged to continue fu with [facility] derm Refill for fluocinolone today. Housing insecurity 01/02/2024 Assessment & Plan (08/15/2024 1:36 PM EST): See above. Applying for housing and need handicap access. Assessment & Plan (03/20/2024 3:51 PM EDT): Awaiting housing application, lives in abasement FU with [facility]. Stage 3a chronic kidney disease 11/01/2023 [...] pseudophedrine short term. Will refer her to [facility] again so she can be evaluated for [...] albuterol prn. Will refer her back to [facility]. RUQ pain 10/05/2023 Assessment & Plan (11/01/2023 [...] ballon inside the gastric body placed in [employer] for bariatric procedure about 20 cm in [...] lumbar r egion 05/17/2017 Overview (09/17/2022): On [employer] contract. discussed tapering percocet options, not interested.. Referred to [facility] forms dept for handicap plackards documents. Referred to [facility] for polypharmacy education. Continue medications as prescribed. Discussed Narcan. Encouraged nonpharmacologic pain relief strategies. will f/up next visit Assessment & Plan (03/20/2024 3:48 PM EDT): On [employer] contract. discussed tapering percocet options, not interested, it apparently offers partial enough improvement of sxs. Patient is aware that superintendent terminal use of opiates can cause hyperalgesia, liver toxicity, HAND ROUTER OPERATOR toxicity, increase anxiety, among others. Will continue to work with chronic pain management [facility] clinic. Continue medications as prescribed. Discussed [...] PRN for elevated BP readings.. Referred to [facility] for polypharmacy education. Continue medications [...] to enails with type 2 diabetes mellitus ([facility]) 05/17/2017 03/29/2024 Encounters Date Type Department Care Team Description 11/01/2024 Telephone [facility] MEDICINE [address] [place] [address] Zeinab Sykes MD MED B form 10/31/2024 8:30 AM EDT Office Visit [facility] ADULT DENTAL [address] [place] [address] Watkins-Maynard, Gay, DDS Fracture of removable partial denture (Primary Dx) 10/30/2024 Telephone [facility] MEDICINE [address] [place] [address] Zeinab Sykes MD FYI 10/29/2024 Telephone [facility] MEDICINE [address] [place] [address] Zeinab Sykes MD Verbal Orders 10/26/2024 Refill [facility] MEDICINE [address] [place] [address] Zeinab Sykes MD Other intervertebral disc displacement, lumbar region 10/23/2024 11:00 AM EDT Office Visit [facility] MEDICINE [address] [place] [address] Alma Jha, LOCKSTITCH POCKET SETTER Lumbar back pain with radiculopathy affecting left lower extremity (Primary Dx); Long-term current use of opiate analgesic 10/23/2024 Travel 10/18/2024 Telephone [facility] [address] [place] [address] Zeinab Sykes MD ER Follow-up; Nurse Triage 10/17/2024 Refill [facility] MEDICINE [address] [place] [address] Zeinab Sykes MD Neuropathy 10/09/2024 11:45 AM EDT Office Visit [facility] [address] [place] [address] Zeinab Sykes MD Moderate persistent asthma without complication (Primary Dx); Class 2 severe obesity with serious comorbidity and body mass index (BMI) of 35.0 to 35.9 in adult, unspecified obesity type ([facility]); Type 2 diabetes mellitus without complication, without long-term current use of insulin ([facility]); Essential hypertension; Arthritis; Vitamin D deficiency 10/09/2024 Travel 10/01/2024 Travel 09/28/2024 Refill [facility] MEDICINE [address] [place] [address] Zeinab Sykes MD Other intervertebral disc displacement, lumbar region 09/28/2024 Population Health Risk Score [facility] () Department [address] [phone] Provider, Population Health Generic 09/25/2024 9:45 AM EDT Office Visit [facility] MEDICINE [address] [place] [address] Alma Jha FNP Lumbar back pain with radiculopathy affecting left lower extremity (Primary Dx); Long-term current use of opiate analgesic 09/25/2024 Travel 09/20/2024 Orders Only [facility] [address] [place] [address] Parag Torres MD 09/19/2024 Refill [facility] MEDICINE [address] [place] [address] Zeinab Sykes MD Left hand pain 08/31/2024 Refill [facility] MEDICINE [address] [place] [address] Zeinab Sykes MD Other intervertebral disc displacement, lumbar region 08/30/2024 Refill [facility] MEDICINE [address] [place] [address] Zeinab Sykes MD 08/29/2024 Refill [facility] MED & PEDS [address] [place] [address] Oralia Aguila MD 08/27/2024 Telephone [facility] MEDICINE [address] [place] [address] Zeinab Sykes MD Results 08/21/2024 5:20 PM EST Office Visit [facility] WALK-IN CENTER [address] [place] [address] Yonathan Snider MD Subacute cough 08/21/2024 Travel 08/20/2024 Refill [facility] MEDICINE [address] [place] [phone] Zeinab Sykes MD Type 2 diabetes mellitus without complication, without long-term current use of insulin ([facility]); Other intervertebral disc displacement, lumbar region 08/15/2024 10:15 AM EST Office Visit [facility] MEDICINE [address] [place] [phone] Zeinab Sykes MD Type 2 diabetes mellitus without complication, without long-term current use of insulin (CMS/HCC) (Primary Dx); Essential hypertension; Postmenopause bleeding; Recurrent major depressive disorder, in partial remission ([facility]); Moderate persistent asthma with acute exacerbation; [place] (obstructive sleep apnea); Housing insecurity; Nasal congestion 08/15/2024 Travel 08/14/2024 Travel 08/10/2024 Telephone [facility] MEDICINE [address] [place] [address] Terra Mackey MA Chart prep 08/08/2024 5:20 PM EST Office Visit [facility] WALK-IN CENTER [address] [place] [phone] Lia Martinez NP Acute nasopharyngitis (Primary Dx); Flu-like symptoms 08/08/2024 3:00 PM EST Office Visit [facility] ADULT DENTAL [address] [place] [phone] Gay Thompson, DDS Fracture of removable partial [...] 11/16/2024 11:00 AM EDT Nutrition [facility] DIABETES/NUTRITION [address] [place] [address] Juana Gusman, RD [address] [place] [address] 01/04/2025 11:00 AM EDT Office Visit [facility] ADULT DENTAL [address] [place] [address] Ruben Hoguearis [address] [place] [address] 01/10/2025 12:00 PM EDT Office Visit [facility] MEDICINE [address] [place] [phone] Zeinab Sykes MD [address] [place] [address] 01/22/2025 11:00 AM EDT Office Visit [facility] MEDICINE [address] [place] [phone] Health Maintenance Due Date Last Done Comments [...] Goal achieved 11/19/22. Patient graduated from [facility]. Procedures Procedure Name Priority Date/Time Associated [...] complication, without long-term current use of insulin ([facility]) POCT GLUCOSE Routine 10/09/2024 11:58 AM EDT Type 2 diabetes mellitus without complication, without long-term current use of insulin ([facility]) POCT DIDIER-14 URINE DRUG SCREEN [...] complication, without long-term current use of insulin ([facility]) POCT RAPID COVID ANTIGEN Routine [...] - 10/23/2024 1:48 PM EDT .UTOX cup Lot#[id number] Exp. 03/06/26 Internal Pass Control Alma Jha LOCKSTITCH POCKET SETTER POINT OF CARE TEST ENTER/EDIT ORDERABLES Final Result * CT Abdomen Pelvis w/ Contrast (10/19/2024 4:13 PM EDT) Anatomical Region Laterality Modality Body, Pelvis, Abdomen Computed T omography 10/19/2024 4:13 PM EDT Narrative 10/19/2024 4:14 PM EDT ? [facility] ?[address] ?[place] [address] ? CT Scan Report ? Signed ? Patient: Rhonda Fernández ?MR# ?? : [id number] ? : 1960 ?Acct:[id number] ? Age/Sex: 63 / F ?ADM Date: 10/18/24 ? Loc: HO.CT ? Attending Dr: Nolberto Quigley MD ? Ordering Physician: Nolberto Quigley MD ?? Date of Service: 10/18/24 ?? Procedure(s): CT abdomen pelvis w IV con ?? Accession Number(s): [id number] ? cc: Zeinab Sykes MD; Nolberto Quigley MD ? Report Number: ?? [id number]: Total DLP = ??538.00 mGy-cm ? CLINICAL [...] DD/ 12 ? TD/TT: 10/19/24 1613 ? Nurse Coordinator: ? Procedure Note Donzacter, Image - 10/19/[address] [place] [address] [address] Scan Report Signed Patient: Karla Fernández# : [id number] : 1960Acct:[id number] Age/Sex: 63 / FADM Date: 10/18/24 Loc: HO.CT Attending Dr: Nolberto Quigley MD Ordering Physician: Nolberto Quigley MD Date of Service: 10/18/24 Procedure(s): CT abdomen pelvis w IV con Accession Number(s): [id number] cc: Zeinab Sykes MD; Nolberto Quigley MD Report Number: [id number]: Total DLP = 538.00 mGy-cm CLINICAL HISTORY: [...] 10/19/24 1614 DD/ 1613 TD/TT: 10/19/24 1613 Nurse Coordinator: [facility] External Provider IMG CT PROCEDURES Final Result * XR Wrist 3+ Views Left (10/16/2024 5:26 PM EDT) Anatomical Region Laterality Modality Upper Extremities, Wrist Left Radiogr aphic Imaging 10/16/2024 5:26 PM EDT Narrative 10/16/2024 5:28 PM EDT ? [facility] ?[address] ?[place] [address] ?XRay Report ? Signed ? Patient: Gerry Mclaughlin,Rhonda ?MR# ?? : [id number] ? : 1960 ?Acct:[id number] ? Age/Sex: 63 / F ?ADM Date: 10/16/24 ? Loc: HO.ED ? Attending Dr: ? Ordering Physician: Lanette Laura PA-C ?? Date of Service: 10/16/24 ?? Procedure(s): XR wrist LT min 3V ?? Accession Number(s): [id number] ? cc: Zeinab Sykes MD; Lanette Laura [...] ? DD/ 25 ? TD/TT: 10/16/241725 ? Nurse Coordinator: ? Procedure Note Vladimirphilipsaludblade, Image - 10/16/[address] [address] XRay Report Signed Patient: Bertin FernándezMl# : [id number] : 1960Acct:[id number] Age/Sex: 63 / FADM Date: 10/16/24 Loc: HO.ED Attending Dr: Ordering Physician: Lanette Laura PA-C Date of Service: 10/16/24 Procedure(s): XR wrist LT min 3V Accession Number(s): [id number] cc: Zeinab Sykes MD; Lanette Laura PA-C [...] 10/16/24 1727 DD/ 172 TD/TT: 10/16/24 172 Nurse Coordinator: us [facility] External Provider IMG XR PROCEDURES Final Result * XR Hip left with Pelvis 1 view (10/16/2024 5:24 PM EDT) Anatomical Region Laterality Modality Lower Extremities, Hip Bilateral Radiograp hic Imaging 10/16/2024 5:24 PM EDT Narrative 10/16/2024 5:26 PM EDT ? [facility] ?[address] ?[place] [address] ?XRay Report ? Signed ? Patient: Rhonda Fernández ?MR# ?? : [id number] ? : 1960 ?Acct:[id number] ? Age/Sex: 63 / F ?ADM Date: 10/16/24 ? Loc: HO.ED ? Attending Dr: ? Ordering Physician: Lanette Laura PA-C ?? Date of Service: 10/16/24 ?? Procedure(s): XR hip LT w PEL1V ?? Accession Number(s): [id number] ? cc: Zeinab Sykes MD; Lanette Laura [...] DD/ 1724 ? TD/TT: 10/16/24 1724 ? Nurse Coordinator: ? Procedure Note Mary, Image - 10/16/2024 [facility] [address] [place] [address] XRay Report Signed Patient: Karla Fernández# : [id number] : 1960Acct:[id number] Age/Sex: 63 / FADM Date: 10/16/24 Loc: HO.ED Attending Dr: Ordering Physician: Lanette Laura PA-C Date of Service: 10/16/24 Procedure(s): XR hip LT w PEL1V Accession Number(s): [id number] cc: Zeinab Sykes MD; Lanette Laura PA-C CLINICAL HISTORY: TTP lateral hip 3 view, pelvis and left hip Comparison: None Findings: There is a left joce sacral electrode. Mild arthritic change of the left hip. The soft tissues are unremarkable. IMPRESSION: No acute findings. This document has been electronically signed by: Enednia Beltran MD on 10/16/2024 17:24:20 Dictated By: Enedina Beltran MD Signed By: <Electronically signed by Enedina Beltran MD in OV> 10/16/24 1725 DD/ 1724 TD/TT: 10/16/24 172 Nurse Coordinator: [facility] External Provider IMG XR PROCEDURES Final Result * XR Elbow 3+ Views Left (10/16/2024 5:23 PM EDT) Anatomical Region Laterality Modality Upper Extremities, Elbow Left Radiogr aphic Imaging 10/16/2024 5:23 PM EDT Narrative 10/16/2024 5:25 PM EDT ? [facility] ?[address] ?[place] [address] ?XRay Report ? Signed ? Patient: Gerry Mclaughlin,Rhonda ?MR# ?? : [id number] ? : 1960 ?Acct:[id number] ? Age/Sex: 63 / F ?ADM Date: 04/01/25 ? Loc: HO.ED ? Attending Dr: ? Ordering Physician: Lanette Laura PA-C ?? Date of Service: 10/16/24 ?? Procedure(s): XR elbow LT min 3V ?? Accession Number(s): [id number] ? cc: Zeinab Sykes MD; Lanette Laura [...] DD/ 1723 ? TD/TT: 10/16/24 1723 ? Nurse Coordinator: ? Procedure Note Donotsaludinterpreter, Image - 10/16/2024 [place] [address] XRay Report Signed Patient: Karla Fernández# : [id number] : 1960Acct:[id number] Age/Sex: 63 / FADM Date: 10/16/24 Loc: HO.ED Attending Dr: Ordering Physician: Lanette Laura PA-C Date of Service: 10/16/24 Procedure(s): XR elbow LT min 3V Accession Number(s): [id number] cc: Zeinab Sykes MD; Lanette Laura PA-C [...] OV> 10/16/241723 DD/ 22 TD/TT: 04/01/25 1723 Nurse Coordinator: us [facility] External Provider IMG XR PROCEDURES Final Result * CT Cervical Spine w/o Contrast (10/16/2024 5:18 PM EDT) Anatomical Region Laterality Modality Spine, C-spine Computed Tomogra phy 10/16/2024 5:18 PM EDT Narrative 10/16/2024 5:19 PM EDT ? [facility] ?[address] ?[place], [place] [address] ? CT Scan Report ? Signed ? Patient: Rhonda Fernández ?MR# ?? : [id number] ? : 1960 ?Acct:[id number] ? Age/Sex: 63 / F ?ADM Date: 10/16/24 ? Loc: HO.ED ? Attending Dr: ? Ordering Physician: Lanette Laura PA-C ?? Date of Service: 10/16/24 ?? Procedure(s): CT cervical spine wo IV con ?? Accession Number(s): [id number] ? cc: Zeinab Sykes MD; Lanette Laura PA-C ? Report Number: ?? [id number]: Total DLP = ??605.00 mGy-cm ? CLINICAL [...] DD/ 1718 ? TD/TT: 10/16/24 1718 ? Nurse Coordinator: ? Procedure Note Mary, Carolina - 10/16/[address] [address] [address] Scan Report Signed Patient: Karla Fernández# : [id number] : 1960Acct:[id number] Age/Sex: 63 / FADM Date: 10/16/24 Loc: HO.ED Attending Dr: Ordering Physician: Lanette Laura PA-C Date of Service: 10/16/24 Procedure(s): CT cervical spine wo IV con Accession Number(s): [id number] cc: Zeinab Sykes MD; Lanette Laura PA-C Report Number: [id number]: Total DLP = 605.00 mGy-cm CLINICAL HISTORY: [...] in OV> 10/16/241718 DD/ 17 TD/TT: 10/16/241717 Nurse Coordinator: [facility] External Provider IMG CT PROCEDURES [...] Creatinine, Serum 1.01 0.5 - 1.4 mg/dL [facility] Estimated Glomerular Filt Rate 55 [facility] Comment:Chronic Kidney Disea se: Estimated GFR < 60 mL/min/1.07o0Yomhql Kidney Disease: Estimated GFR < 15 mL/min/1.73m2 09/18/2024 3:57 PM EST 09/18/2024 3:57 PM EST Generic External Data Provider LAB BLOOD ORDERAB LES Final Result Performing Organization Address City/[facility]/ZIP Co de Phone Number [facility] [address] [place] [phone] * BUN (Blood Urea Nitrogen) (09/18/2024 3:57 PM EST) Urea Nitrogen (BUN) 13 9 - 16 mg/dL [facility] 09/18/2024 3:57 PM EST 09/18/2024 3:57 PM EST Generic External Data Provider LAB BLOOD ORDERAB LES Final Result Performing Organization Address City/[facility] Co de Phone Number [facility] [address] [place] [phone] * Polysomnography (09/11/2024) us Zeinab Sykes MD [facility] ORDERABLES Final Result * XR Chest 2 Views (08/22/2024 3:53 PM EST) Anatomical Region Laterality Modality Chest Radiographic Celia ging 08/22/2024 3:53 PM EST Narrative 08/22/2024 4:30 PM EST ?[facility] ?[address] ?[place] [address] ?XRay Report ? Signed ? Patient: Gerry Mclaughlin,Rhonda ?MR# ?? : [id number] ? : 1960 ?Acct:[id number] ? Age/Sex: 63 / F ?ADM Date: 08/22/24 ? Loc: HO.HHCX ? Attending Dr: Yonathan Snider MD ? Ordering Physician: Yonathan Snider MD ?? Date of Service: 08/22/24 ?? Procedure(s): XR chest 2V ?? Accession Number(s): [id number] ? cc: Yonathan Snider MD ? EXAMINATION: [...] DD/ 1553 ? TD/TT: 08/22/24 1600 ? Nurse Coordinator: MSM ? Procedure Note Carolina Hernandez - 08/22/2024 [facility] [address] [facility] [place] [address] XRay Report Signed Patient: Karla Fernández# : [id number] : 1960Acct:[id number] Age/Sex: 63 / FADM Date: 08/22/24 Loc: HO.HHCX Attending Dr: Yonathan Snider MD Ordering Physician: Yonathan Snider MD Date of Service: 08/22/24 Procedure(s): XR chest 2V Accession Number(s): [id number] cc: Yonathan Snider MD EXAMINATION: XR CHEST [...] 08/22/24 1627 DD/ 1553 TD/TT: 08/22/24 1600 Nurse Coordinator: MSM Yonathan Snider MD IMG XR PROCEDURES Edited Result - Final * Influenza B (ID NOW Rapid Molecular) (08/21/2024 5:37 PM EST) Only the most recent of3 resultswithin the time period is included. Influenza B Negative Negative, Indeterminate [facility] Swab 08/21/2024 5:37 PM EST Yonathan Snider MD POINT OF CARE TEST ENTER/EDIT OR DERABLES Final Result [facility] [address] [place] [phone] * Influenza A (ID NOW Rapid Molecular) (08/21/2024 5:37 PM EST) Only the most recent of3 resultswithin the time period is included. [facility] Influenza A Negative Negative, Indeterminate [facility] Swab 08/21/2024 5:37 PM EST us Yonathan Snider MD POINT OF CARE TEST ENTER/EDIT OR DERABLES Final Result [facility] [address] [place] [phone] * POCT Rapid COVID Ag (08/21/2024 5:10 PM EST) Only the most recent of3 resultswithin the time period is included. [facility] Rapid COVID Ag Negative Swab 08/21/2024 5:10 PM EST us Yonathan Snider MD POINT OF CARE TEST ENTER/EDIT OR DERABLES Final Result * (ABNORMAL) Respiratory Viral Panel PCR (08/21/2024 2:25 PM EST) [facility] Adenovirus PCR Not Detected Not Detect. [facility] Bordetella pertussis PCR Not Detected Not Detect. [facility] Comment:Interpret results wi th caution. If B. pertussis isspecifically suspected, additional testing using analternate method is recommended. Bordetella parapertussis PCR Not Detected Not Detect. [facility] Chlamydia pneumoniae PCR Not Detected Not Detect. [facility] Coronavirus 229E PCR Not Detected Not Detect. [facility] Coronavirus HKU1 PCR Not Detected Not Detect. [facility] Coronavirus NL63 PCR Not Detected Not Detect. [facility] Coronavirus OC43 PCR Detected(A) Not Detect. [facility] SARS-CoV-2 PCR Not Detected Not Detect. [facility] Comment:SARS-CoV-2 not detec jocelyn by real-time RT-PCR.Note: If clinical suspicion for Sars-CoV-2 is high, continueto maintain precautions and consider repeat testing.Test results should be interpreted in the context ofclinical findings and other laboratory data.Rare polymorphisms exist that could lead to false-negativeor false-positive results. If results do not match theclinical findings, additional testing should be considered.Results reported to [facility].This test has been authorized by the FDA under the EmergencyUse Authorization (EUA) for use by authorized laboratories. Influenza A PCR Not Detected Not Detect. [facility] Influenza B PCR Not Detected Not Detect. [facility] Human metapneumovirus PCR Not Detected Not Detect. [facility] Rhino/Enterovirus PCR Not Detected Not Detect. [facility] Mycoplasma pneumoniae PCR Not Detected Not Detect. [facility] Parainfluenza 1 PCR Not Detected Not Detect. [facility] Parainfluenza 2 PCR Not Detected Not Detect. [facility] Parainfluenza 3 PCR Not Detected Not Detect. [facility] Parainfluenza 4 PCR Not Detected Not Detect. [facility] RSV PCR Not Detected Not Detect. [facility] Resp Panel NA Note See Note H [facility] Comment:All results must be correlated [...] assay is performed by Multiplexed PCR, utilizing Meridium Film Array. 08/21/2024 2:25 PM EST 08/22/2024 2:39 PM EST us Yonathan Snider MD LAB BLOOD ORDERABLES Final Resul t [facility] [address] [place] [address] [phone] * POCT Rapid RSV JI ID NOW (08/08/2024 5:54 PM EST) RSV Rapid Ag POC Negative Negative [facility] Swab 08/08/2024 5:54 PM EST Lia Martinez LAMINE POINT OF CARE TEST ENTER/EDIT O RDERABLES Final Result [facility] [address] [place] [address] [phone] * Pap Smear (06/01/2024 2:43 PM EST) 06/01/2024 2:43 PM EST 06/04/2024 9:25 AM EST Narrative [facility] - 06/20/2024 7:51 AM EST ----- ------- Name: Rhonda Fernández ? Age/Sex: 63/F ? : 1960 Unit#: [id number] ?? Attend Dr: Aisha Mcclain CNM ?Re06/01/24 ?Status: DEP REF ? Location: HO.LNP ?Disch: ? ----- ------- SPEC : [id number] ?RECD: 06/04/24 ? STATUS: ??SOUT ? REQ NUM: [id number] ? DARWIN: 06/01/24-144 ? SUBM DR: Aisha [...] Copies To: ?? Zeinab Sykes MD ?? [facility] ?? [address] ?? [place] [address] ?? [phone] ?? Aisha Mcclain CNM ?? [facility] ?? [address] ?? [place] [address] ?? [phone] ----- ------- Signed (signature on file) INDERJIT Bloom (ASCP) 06/20/24 0751 ? ----- ------- ? END OF REPORT ? us Generic External Data Provider LAB CYTOLOGY ORDE RABSOLANGE Final Result [facility] [address] [place] [phone] * (ABNORMAL) Lipid Panel with Reflex to Direct LDL (01/06/2024 12:38 PM EDT) Triglycerides 91 <150 mg/dL [facility] Comment:Desirable Triglyceri de: less than 150 mg/dLBorderline High Triglyceride 150-199 mg/dLHigh Triglyceride: 200-499 mg/dLVery High Triglyceride: greater than or equal to 5OO mg/dL Cholesterol 211(H) <200 mg/dL [facility] Comment:Desirable Cholestero l: less than 200 mg/dLBorderline High Cholesterol: 200-239 mg/dLHigh Cholesterol: greater than 239 mg/dL LDL Cholesterol Calculated 132(H) <100 mg/dL [facility] Comment:Desirable LDL: less than 100 mg/dLNear Optimal/Above Optimal LDL: 110- 129 mg/dLBorderline High LDL: 130-159 mg/dLHigh LDL: 160-189 mg/dLVery High LDL: greater than or equal to 190 mg/dL HDL Cholesterol 61 >40 mg/dL [facility] Comment:Desirable HDL: great er than 40 mg/dL Note: This HDL assay may give artificially low results in patients with liver disease. Blood 01/06/2024 12:3 8 PM EDT 01/06/2024 4:21 PM EDT Zeinab Sykes MD LAB BLOOD ORDERABLES Fin al Result Performing Organization Address [facility]/ZIP Co de Phone Number [facility] [address] [place] [phone] [phone] * Hepatitis Panel, General (01/06/2024 12:38 PM EDT) Hepatitis A IgM Nonreactive Nonreactive [facility] Comment:IgM antibodies to GUERIN V not detected; does not exclude earlyacute or recovered HAV infection. ~Hepatitis B Surface Antibody REACTIVE Nonreactive [facility] Comment:REACTIVE: > 11.99 mI U/mL Hepatitis B Core Antibody Nonreactive Nonreactive [facility] Hepatitis C Antibody Nonreactive Nonreactive [facility] Comment:Antibodies to HCV no t detected; does not exclude early acuteHCV infection. Hepatitis B Surface Ag Negative Negative [facility] Blood 01/06/2024 12:3 8 PM EDT 01/06/2024 4:21 PM EDT Zeinab Sykes MD LAB BLOOD ORDERABLES Fin al Result Performing Organization Address [facility]/ZIP Co de Phone Number [facility] [address] [place] [address] [phone] * HIV-1/2 Antigen and Antibodies, Fourth Generation, with Reflexes (01/06/2024 12:38 PM EDT) HIV AB/AG Nonreactive Nonreactive [facility] Comment:HIV-1 p24 Ag and/or HIV-1/HIV-2 Ab not detected.A test result that is nonreactive does not exclude thepossibility of exposure to or infection with HIV-1 and/orHIV-2. Nonreactive results in this assay for individualswith prior exposure to HIV-1 and/or HIV-2 may be due toantigen and antibody levels that are below the limit ofdetection of this assay.The [employer] HIV Ag/Ab Combo assay result andsupplemental assay results should be interpreted inconjunction with the patient's clinical presentation,history and other laboratory results. If the results areinconsistent with clinical evidence, additional testing issuggested to confirm the result. Blood Venous blood specimen / Unknown 01/06/2024 12:38 PM EDT 01/06/2024 4:21 PM EDT us Zeinab Sykes MD LAB BLOOD ORDERABLES Fin al Result [facility] [address] [place] [phone] * Mammography Report 1 (03/15/2022 5:00 PM EDT) Anatomical Region Laterality Modality Breast Bilateral Mammography 03/15/2022 5:00 PM EDT Narrative 03/16/2022 8:33 AM EDT Refer to the Notes tab for result details [facility] Procedure: Mammography Report 1 Procedure Note ProviderParag MD - 10/10/2022 Refer to the Notes tab for result details [facility] Procedure: Mammography Report 1 us Evelyn Ledesma LOCKSTITCH POCKET SETTER IMG BI PROCEDURES Final Re sult * ALBUMIN, RANDOM URINE W/CREATININE (03/08/2022 3:04 PM EDT) Microalbumin Urine 1.2 See Note: mg/dL [facility] Comment: Reference Range: ?? [...] Creatinine, Urine 244 20 - 275 mg/dL [facility] 03/08/2022 3:04 PM EDT Rebekah Guevara GLASS ENGRAVER LAB URINE ORDERABLES Final Res ult Performing Organization Address [facility]/State/ZIP Co de Phone Number [facility] [address] * Hm Colonoscopy (11/05/2020 11:36 AM EDT) Historical Provider HEALTH MAINTENANCE Final Result * HPV mRNA E6/E7 (07/07/2020 12:00 AM EST) HPV nRNA E6/E7 Not Detected Not Detected [facility] Comment: This test was performed using the APTIMA HPV Assay ([employer] This assay detects E6/E7 viral messenger RNA (mRNA) from 14 high-risk HPV types (16,18,31,33,35,39,45,51,52,56,58,59,66,68). ?? The analytical performance characteristics of this assay have been determined by [employer]. The modifications have not been cleared or approved by the FDA. This assay has been validated pursuant to the CLIA regulations and is used for clinical purposes. 07/07/2020 Historical Provider LAB BLOOD ORDERABLES Sera l Result Performing Organization Address [facility]/ZIP Co de Phone Number [facility] [address] from Last 3 Months or Most Recently Relevant to Health Maintenance Insurance [facility] C3 MEDICARE DENTAL-[facility] MEDICAID STAND ADULT Care Teams Plumber Supervisor Relationship Specialty Start Date End Date Zeinab Sykes MD [address] [place] [address] PCP - General Internal Medicine 01/02/24 Tomeka Martins Bank GuardShear Tender 10/27/23
--- OUTSIDE RECORDS SUMMARY | 2024-11-02 12:44 | XMS_ITS | Encounter Summary ---
Author Organization [facility] [facility] Address [address] [place] [address] 7t [place] [address] Care Team Providers Care School Examiner Name Role Phone Oralia Aguila MD Primary Care Provider [phone] Zeinab Sykes MD Primary Care Provider + Reason for Visit * Reason Onset Date Comments antibiotics pre med 07/19/2023 Encounter Details Date Type Department Care Team ([facility] st Contact Info) Description 07/19/2023 Telephone [facility]ULT D[facility]AL [address] [place] [address] AttStefany terry, DDS [address], [place] [phone] antibiotics pre med Social History Tobacco Use [...] Info) Description 11/16/2024 11:00 AM EDT Nutrition [facility] DIABETES/NUTRITION [address] [place] [address] Juana Gusman, MONICA [address] [place] [address] 01/04/2025 11:00 AM EDT Office Visit [facility] ADULT DENTAL [address] [place] [address] Mykel, Fabi [address] [place] [address] 01/10/2025 12:00 PM EDT Office Visit [facility] MEDICINE [address] [place] [address] Zeinab Sykes MD [address] [place] [address] 01/22/2025 11:00 AM EDT Office Visit [facility] MEDICINE [address] [place] [address] documented as of this encounter Goals Goal Patient Goal Type Associated Problems Recent Progress Patient-Stated? Author Patient will manage their medication General On track( 023 11:18 AM EDT) Citlali Ocampo, PharmD Note: Began medboxes. Goal achieved 11/19/22. Patient graduated from [facility]. documented as of this encounter Visit Diagnoses Not on filedocumented in this encounter Care Teams School Examiner Relationship Specialty Start Date End Date Oralia Aguila MD [address] [place] [address] PCP - General Family Medicine 04/26/23 01/01/24 Zeinab Sykes MD [address] [place] [address] PCP - General Internal Medicine 01/02/24 Tomeka Martins Group Exercise ManagerScrap Collector 10/27/23 documented as of this encounter
--- OUTSIDE RECORDS SUMMARY | 2024-11-02 12:44 | XMS_ITS | Encounter Summary ---
Author Organization [employer] [facility] Address [address] [place] [address] 7t [place] [address] Care Team Providers Care Furnace Loader Name Role Phone Evelyn Ledesma Primary Care Provider [phone] Oralia Aguila MD Primary Care Provider [phone] Zeinab Syeks MD Primary Care Provider + Reason for Visit * Reason Onset Date Comments Appointment Request 12/20/2022 Encounter Details Date Type Department Care Team (Late st Contact Info) Description 12/20/2022 Telephone [facility] MEDICINE [address] [place] [address] Evelyn Ledesma FNP [address] [place] [address] Dept [place] [address] Appointment Request Social History Tobacco Use Types [...] an earlier day) Please contact pt at [phone] documented in this encounter Plan of Treatment Upcoming Encounters Date Type Department Care Team (Late st Contact Info) Description 11/16/2024 11:00 AM EDT Nutrition [facility] DIABETES/NUTRITION [address] [place] [address] Juana Gusman, MONICA [address] [place] [address] 01/04/2025 11:00 AM EDT Office Visit [facility] ADULT DENTAL [address] [place] [address] Mykel, Fabi [address] [place] [address] 01/10/2025 12:00 PM EDT Office Visit [facility] MEDICINE [address] [place] [address] Zeinab Sykes MD [address] [place] [address] 01/22/2025 11:00 AM EDT Office Visit [facility] MEDICINE [address] [place] [address] documented as of this encounter Goals Goal Patient Goal Type Associated Problems Recent Progress Patient-Stated? Author Patient will manage their medication General On track( 023 11:18 AM EDT) Citlali Ocampo, Anoop Note: Began medboxes. Goal achieved 11/19/22. Patient graduated from [facility]. documented as of this encounter Visit Diagnoses Not on filedocumented in this encounter Care Teams Furnace Loader Relationship Specialty Start Date End Date Evelyn Ledesma FNP PCP - General Family Medicine 03/15/22 04/25/23 Oralia Aguila MD [address] [place] [address] PCP - General Family Medicine 04/26/23 01/01/24 Zeinab Sykes MD [address] [place] [address] PCP - General Internal Medicine 01/02/24 Tomeka Martins Ground WirerSprinkler Fitter 10/27/23 documented as of this encounter
--- OUTSIDE RECORDS SUMMARY | 2024-11-02 12:44 | XMS_ITS | Encounter Summary ---
Author Organization [employer] [facility] Address [address] [place] [address] 7t [place] [address] Care Team Providers Care Head Athletic Trainer Name Role Phone Oralia Aguila MD Primary Care Provider [phone] Zeinab Sykes MD Primary Care Provider + Reason for Visit * Reason Comments Med Refill Encounter Details Date Type Department Care Team (Late Contact Info) Description 08/09/2023 Refill [facility] [address] [place], [place] [phone] Oralia Aguila MD [address] [place], [place] [phone] Other intervertebral disc displacement, lumbar region Social [...] Info) Description 11/16/2024 11:00 AM EDT Nutrition [facility] DIABETES/NUTRITION [address] [place], [place] [phone] Juana [address]man [address] [place], [place] [phone] 01/04/2025 11:00 AM EDT Office Visit [facility] ADULT DENTAL [address] [place], [place] [phone] Fabi Hogue [address] [place], [place] [phone] 01/10/2025 12:00 PM EDT Office Visit [facility] MEDICINE [address] [place] [address] [phone] Zeinab Sykes MD [address] [place], [place] [phone] 01/22/2025 11:00 AM EDT Office Visit [facility] [address] [place] [address] [phone] documented as of this encounter Goals Goal [...] documented in this encounter Care Teams Head Athletic Trainer Relationship Specialty Start Date End Date Oralia Aguila MD [address] [place] [address] PCP - General Family Medicine 04/26/23 01/01/24 Zeinab Sykes MD [address] [place] [address] PCP - General Internal Medicine 01/02/24 Tomeka Martins Receivable ClerkMagneto Electrician 10/27/23 documented as of this encounter
--- OUTSIDE RECORDS SUMMARY | 2024-11-02 12:44 | XMS_ITS | Encounter Summary ---
Author Organization [facility] Address [address] [place] [address] 7 [place] [address] Care Team Providers Care Client Engagement Manager Name Role Phone Evelyn Ledesma Primary Care Provider [phone] Oralia Aguila MD Primary Care Provider Zeinab Sykes MD Primary Care Provider + Reason for Visit * Reason Comments Med Refill Encounter Details Date Type Department Care Team (Late Contact Info) Description 02/05/2023 Refill [facility] [address] [place] [address] Evelyn Ledesma FNP [address] [place] [address] Dept [place] [address] Neuropathy Social History Tobacco Use Types Packs/Day [...] Info) Description 11/16/2024 11:00 AM EDT Nutrition [facility] DIABETES/NUTRITION [address] [place] [address] [place] [address] 01/04/2025 11:00 AM EDT Office Visit [facility] ADULT DENTAL [address] [place] [address] Ruben Hoguearis [address] [place] [address] 01/10/2025 12:00 PM EDT Office Visit [facility] MEDICINE [address] [place] [address] Zeinab Sykes MD [address] [place] [address] 01/22/2025 11:00 AM EDT Office Visit [address] [address] documented as of this encounter Goals Goal Patient Goal Type Associated Problems Recent Progress Patient-Stated? Author Patient will manage their medication General On track( 023 11:18 AM EDT) Citlali Ocampo, PharmD Note: Began medboxes. Goal achieved 11/19/22. Patient graduated from [facility]. documented as of this encounter Visit Diagnoses Diagnosis Neuropathy Mononeuritis of unspecified site documented in this encounter Care Teams Client Engagement Manager Relationship Specialty Start Date End Date Evelyn Ledesma FNP PCP - General Family Medicine 03/15/22 04/25/23 Oralia Aguila MD [address] [place] [address] PCP - General Family Medicine 04/26/23 01/01/24 Zeinab Sykes MD [address] [place] [address] PCP - General Internal Medicine 01/02/24 Tomeka Martins Director Of Leadership DevelopmentReinforcing Iron And Rebar Workers 10/27/23 documented as of this encounter
--- OUTSIDE RECORDS SUMMARY | 2024-11-02 12:44 | XMS_ITS | Encounter Summary ---
Author Organization [facility] Address [address] [place] [address] 7t [place] [address] Care Team Providers Care Meat Packager Name Role Phone Oralia Aguila MD Primary Care Provider [phone] Zeinab Sykes MD Primary Care Provider + Reason for Visit * Reason Comments Med Refill Encounter Details Date Type Department Care Team (Late Contact Info) Description 07/06/2023 Refill [facility] [address] [place] [address] Bryn Franklin MD [address] [place], [place] [phone] Social History Tobacco Use Types Packs/Day Years [...] Info) Description 11/16/2024 11:00 AM EDT Nutrition [facility] DIABETES/NUTRITION [address] [place] [address] [place] [address] 01/04/2025 11:00 AM EDT Office Visit [facility] ADULT DENTAL [address] [place] [address] Fabi Hogue [address] [place] [address] 01/10/2025 12:00 PM EDT Office Visit [facility] MEDICINE [address] [place] [address] Zeinab Sykes MD [address] [place] [address] 01/22/2025 11:00 AM EDT Office Visit [facility] MED[facility] [address] [place] [address] documented as of this encounter Goals Goal Patient Goal Type Associated Problems Recent Progress Patient-Stated? Author Patient will manage their medication General On track( 023 11:18 AM EDT) Citlali Ocampo, PharmD Note: Began medboxes. Goal achieved 11/19/22. Patient graduated from [facility]. documented as of this encounter Visit Diagnoses Not on filedocumented in this encounter Care Teams Meat Packager Relationship Specialty Start Date End Date Oralia Aguila MD [address] [place] [address] PCP - General Family Medicine 04/26/23 01/01/24 Zeinab Sykes MD [address] [place] [address] PCP - General Internal Medicine 01/02/24 Tomeka Martins Print Shop HelperDirector Fundraising 10/27/23 documented as of this encounter
--- OUTSIDE RECORDS SUMMARY | 2024-11-02 12:44 | XMS_ITS | Encounter Summary ---
Author Organization [employer] [facility] Address [address] [place] [address] 7 [place] [address] Care Team Providers Care Registered Nurse Obstetrics Name Role Phone Evelyn Ledesma Primary Care Provider [phone] Oralia Aguila MD Primary Care Provider [phone] Zeinab Sykes MD Primary Care Provider + Reason for Visit * Reason Onset Date Comments Referral 02/03/2023 Renewal Encounter Details Date Type Department Care Team (Late st Contact Info) Description 02/03/2023 Telephone [facility] MEDICINE [address] [place] [address] Evelyn Ledesma FNP [address] [place] [address] Dept [place] [address] Referral (Renewal ) Social History Tobacco Use [...] 11/16/2024 11:00 AM EDT Nutrition [facility] DIABETES/NUTRITION [address] [place] [address] Juana Gusman, MONICA [address] [place] [address] 01/04/2025 11:00 AM EDT Office Visit [facility] ADULT DENTAL [address] [place] [address] Mykel, Fabi [address] [place] [address] 01/10/2025 12:00 PM EDT Office Visit [facility] MEDICINE [address] [place] [address] Zeinab Sykes MD [address] [place] [address] 01/22/2025 11:00 AM EDT Office Visit [facility] MED[facility]INE [address] [place] [address] documented as of this encounter Goals Goal Patient Goal Type Associated Problems Recent Progress Patient-Stated? Author Patient will manage their medication General On track( 023 11:18 AM EDT) Citlali Ocampo, PharmD Note: Began medboxes. Goal achieved 11/19/22. Patient graduated from [facility]. documented as of this encounter Visit Diagnoses Not on filedocumented in this encounter Care Teams Registered Nurse Obstetrics Relationship Specialty Start Date End Date Evelyn Ledesma FNP PCP - General Family Medicine 03/15/22 04/25/23 Oralia Aguila MD [address] [place] [address] PCP - General Family Medicine 04/26/23 01/01/24 Zeinab Sykes MD [address] [place] [address] PCP - General Internal Medicine 01/02/24 Tomeka Martins Sat Act InstructorPanel Edge Sealer 10/27/23 documented as of this encounter
--- OUTSIDE RECORDS SUMMARY | 2024-11-02 12:44 | XMS_ITS | Encounter Summary ---
Author Organization [employer] [facility] Address [address] [place] [address] 7t [place] [address] Care Team Providers Care Makeup Instructor Name Role Phone Oralia Aguila MD Primary Care Provider [phone] Zeinab Sykes MD Primary Care Provider + Reason for Visit * Reason Onset Date Comments Med Refill 05/05/2023 Encounter Details Date Type Department Care Team (Late st Contact Info) Description 05/05/2023 Refill [facility] MED[facility]INE [address] [place], [place] [phone] Orlaia Aguila MD [address] [place], [place] [phone] Other intervertebral disc displacement, lumbar region Social [...] 325 MG tablet to besent to [facility] [place], [place] - [address] [facility] documented in this encounter Plan of Treatment Upcoming Encounters Date Type Department Care Team (Late st Contact Info) Description 11/16/2024 11:00 AM EDT Nutrition [facility] DIABETES/NUTRITION [address] [place] [address] Juana Gusman, MONICA [address] [place] [address] 01/04/2025 11:00 AM EDT Office Visit [facility] ADULT DENTAL [address] [place] [address] Mykel, Fabi [address] [place] [address] 01/10/2025 12:00 PM EDT Office Visit [facility] MEDICINE [address] [place] [address] Zeinab Sykes MD [address] [place] [address] 01/22/2025 11:00 AM EDT Office Visit [facility] MEDICINE [address] [place] [address] documented as of this encounter Goals Goal [...] region documented in this encounter Care Teams Makeup Instructor Relationship Specialty Start Date End Date Oralia Aguila MD [address] [place] [address] PCP - General Family Medicine 04/26/23 01/01/24 Zeinab Sykes MD [address] [place] [address] PCP - General Internal Medicine 01/02/24 Tomeka Martins Event Sales ManagerDental Amalgam Processor 10/27/23 documented as of this encounter
--- OUTSIDE RECORDS SUMMARY | 2024-11-02 12:44 | XMS_ITS | Encounter Summary ---
Author Organization [employer] Address [address] [facility] 7t [place] [address] Care Team Providers Care Disulfurizer Tender Name Role Phone Zeinab Sykes MD Primary Care Provider + Encounter Details Date Type Department Care Team ([facility] st Contact Info) Description 09/20/2024 Orders Only [facility] CH[facility] MED & PEDS [address] [place], [place] [phone] ProviderParag MD Social History Tobacco Use Types [...] Info) Description 11/16/2024 11:00 AM EDT Nutrition [facility] DIABETES/NUTRITION [address] [place] [address] Juana Gusman, MONICA [address] [place] [address] 01/04/2025 11:00 AM EDT Office Visit [facility] ADULT DENTAL [address] [place] [address] Mykel, Fabi [address] [place] [address] 01/10/2025 12:00 PM EDT Office Visit [facility] MEDICINE [address] [place] [address] Zeinab Sykes MD 230 [place] [address] 01/22/2025 11:00 AM EDT Office Visit [facility] MEDICINE [address] [place] [address] documented as of this encounter Goals Goal Patient Goal Type Associated Problems Recent Progress Patient-Stated? Author Patient will manage their medication General On track( 023 11:18 AM EDT) Citlali Ocampo, Anoop Note: Began medboxes. Goal achieved 11/19/22. Patient graduated from [facility]. documented as of this encounter [...] EDT Narrative 10/19/2024 4:14 PM EDT ? [facility] ?[address] ?[place] [address] ? CT Scan Report ? Signed ? Patient: Rhonda Fernández ?MR# ?? : [id number] ? : 1960 ?Acct:[id number] ? Age/Sex: 63 / F ?ADM Date: 10/18/24 ? Loc: HO.CT ? Attending Dr: Nolberto Quigley MD ? Ordering Physician: Nolberto Quigley MD ?? Date of Service: 10/18/24 ?? Procedure(s): CT abdomen pelvis w IV con ?? Accession Number(s): [id number] ? cc: Zeinab Sykes MD; Nolberto Quigley MD ? Report Number: ?? [id number]: Total DLP = ??538.00 mGy-cm ? CLINICAL [...] ? DD/ ? TD/TT: 10/19/24 1613 ? Claim Professional: ? Procedure Note Donotuseinterpreter, Image - 10/19/[address] [place] [address] [address] Scan Report Signed Patient: Karla Fernández# : [id number] : 1960Acct:[id number] Age/Sex: 63 / FADM Date: 10/18/24 Loc: HO.CT Attending Dr: Nolberto Quigley MD Ordering Physician: Nolberto Quigley MD Date of Service: 10/18/24 Procedure(s): CT abdomen pelvis w IV con Accession Number(s): [id number] cc: Zeinab Sykes MD; Nolberto Quigley MD Report Number: [id number]: Total DLP = 538.00 mGy-cm CLINICAL HISTORY: [...] 10/19/24 1614 DD/ 161 TD/TT: 10/19/24 161 Claim Professional: us [facility] External Provider IMG CT PROCEDURES Final Result * XR Wrist 3+ Views Left (10/16/2024 5:26 PM EDT) Anatomical Region Laterality Modality Upper Extremities, Wrist Left Radiogr aphic Imaging 10/16/2024 5:26 PM EDT Narrative 10/16/2024 5:28 PM EDT ? [facility] ?[address] ?[place], [place] [address] ?XRay Report ? Signed ? Patient: Gerry Mclaughlin,Rhonda ?MR# ?? : [id number] ? : 1960 ?Acct:[id number] ? Age/Sex: 63 / F ?ADM Date: 10/16/24 ? Loc: HO.ED ? Attending Dr: ? Ordering Physician: Lanette Laura PA-C ?? Date of Service: 10/16/24 ?? Procedure(s): XR wrist LT min 3V ?? Accession Number(s): [id number] ? cc: Zeinab Sykes MD; Lanette Laura [...] ? DD/ 25 ? TD/TT: 10/16/241725 ? Claim Professional: ? Procedure Note Mary, Carolina - 10/16/[address] [address] XRay Report Signed Patient: Karla Fernández# : [id number] : 1960Acct:[id number] Age/Sex: 63 / FADM Date: 10/16/24 Loc: HO.ED Attending Dr: Ordering Physician: Lanette Laura PA-C Date of Service: 10/16/24 Procedure(s): XR wrist LT min 3V Accession Number(s): [id number] cc: Zeinab Sykes MD; Lanette Laura PA-C [...] 10/16/24 1727 DD/ 1726 TD/TT: 10/16/24 1726 Claim Professional: [facility] External Provider IMG XR PROCEDURES Final Result * XR Hip left with Pelvis 1 view (10/16/2024 5:24 PM EDT) Anatomical Region Laterality Modality Lower Extremities, Hip Bilateral Radiograp hic Imaging 10/16/2024 5:24 PM EDT Narrative 10/16/2024 5:26 PM EDT ? [facility] ?[address] ?[place] [address] ?XRay Report ? Signed ? Patient: Rhonda Fernández ?MR# ?? : [id number] ? : 1960 ?Acct:[id number] ? Age/Sex: 63 / F ?ADM Date: 10/16/24 ? Loc: HO.ED ? Attending Dr: ? Ordering Physician: Lanette Laura PA-C ?? Date of Service: 10/16/24 ?? Procedure(s): XR hip LT w PEL1V ?? Accession Number(s): [id number] ? cc: Zeinab Sykes MD; Lanette Laura [...] ? DD/ 1724 ? TD/TT: 10/16/244 ? Claim Professional: ? Procedure Note Donedward, Image - 10/16/[address] [address] XRay Report Signed Patient: Karla Fernández# : [id number] : 1960Acct:[id number] Age/Sex: 63 / FADM Date: 10/16/24 Loc: HO.ED Attending Dr: Ordering Physician: Lanette Laura PA-C Date of Service: 10/16/24 Procedure(s): XR hip LT w PEL1V Accession Number(s): [id number] cc: Zeinab Sykes MD; Lanette Laura PA-C [...] 10/16/24 1725 DD/ 172 TD/TT: 10/16/24 1724 Claim Professional: [facility] External Provider IMG XR PROCEDURES Final Result * XR Elbow 3+ Views Left (10/16/2024 5:23 PM EDT) Anatomical Region Laterality Modality Upper Extremities, Elbow Left Radiogr aphic Imaging 10/16/2024 5:23 PM EDT Narrative 10/16/2024 5:25 PM EDT ? [facility] ?[address] ?[place] [address] ?XRay Report ? Signed ? Patient: Gerry Mclaughlin,Rhonda ?MR# ?? : [id number] ? : 1960 ?Acct:[id number] ? Age/Sex: 63 / F ?ADM Date: 04/01/25 ? Loc: HO.ED ? Attending Dr: ? Ordering Physician: Lanette Laura PA-C ?? Date of Service: 10/16/24 ?? Procedure(s): XR elbow LT min 3V ?? Accession Number(s): [id number] ? cc: Zeinab Sykes MD; Lanette Laura [...] DD/ 1723 ? TD/TT: 10/16/24 1723 ? Claim Professional: ? Procedure Note Carolina Hernandez - 10/16/[address] [address] XRay Report Signed Patient: Karla Fernández# : [id number] : 1960Acct:[id number] Age/Sex: 63 / FADM Date: 10/16/24 Loc: HO.ED Attending Dr: Ordering Physician: Lanette Laura PA-C Date of Service: 10/16/24 Procedure(s): XR elbow LT min 3V Accession Number(s): [id number] cc: Zeinab Sykes MD; Lanette Laura PA-C [...] 10/16/24 1724 DD/ 1723 TD/TT: 10/16/24 1723 Claim Professional: [facility] External Provider IMG XR PROCEDURES Final Result * CT Cervical Spine w/o Contrast (10/16/2024 5:18 PM EDT) Anatomical Region Laterality Modality Spine, C-spine Computed Tomogra phy 10/16/2024 5:18 PM EDT Narrative 10/16/2024 5:19 PM EDT ? [facility] ?[address] ?[place], [place] [address] ? CT Scan Report ? Signed ? Patient: Rhonda Fernández ?MR# ?? : [id number] ? : 1960 ?Acct:[id number] ? Age/Sex: 63 / F ?ADM Date: 10/16/24 ? Loc: HO.ED ? Attending Dr: ? Ordering Physician: Lanette Laura PA-C ?? Date of Service: 10/16/24 ?? Procedure(s): CT cervical spine wo IV con ?? Accession Number(s): [id number] ? cc: Zeinab Sykes MD; Lanette Laura PA-C ? Report Number: ?? [id number]: Total DLP = ??605.00 mGy-cm ? CLINICAL [...] ? DD/ 1718 ? TD/TT: 10/16/248 ? Claim Professional: ? Procedure Note Mary, Image - 04/01/2025 [facility] [address] [place] [address] [address] [address] Scan Report Signed Patient: Karla Fernández# : [id number] : 1960Acct:[id number] Age/Sex: 63 / FADM Date: 10/16/24 Loc: HO.ED Attending Dr: Ordering Physician: Lanette Laura PA-C Date of Service: 10/16/24 Procedure(s): CT cervical spine wo IV con Accession Number(s): [id number] cc: Zeinab Sykes MD; Lanette Laura PA-C Report Number: [id number]: Total DLP = 605.00 mGy-cm CLINICAL HISTORY: [...] in OV> 10/16/241718 DD/ 17 TD/TT: 10/16/241717 Claim Professional: [facility] External Provider IMG CT PROCEDURES Final Result * Hm Colonoscopy (11/05/2020 11:36 AM EDT) Historical Provider HEALTH MAINTENANCE Final Result documented in this encounter Visit Diagnoses Not on filedocumented in this encounter Additional Health Concerns Assessment Noted Time PHQ-9 Depression Total Score: 22 08/15/ 025 10:31 AM EST documented as of this encounter Care Teams Disulfurizer Tender Relationship Specialty Start Date End Date Zeinab Sykes MD [address] [place] [address] PCP - General Internal Medicine 01/02/24 Tomeka Martins Metal Numerical Control ProgrammerDiesel Maintenance Electrician 10/27/23 documented as of this encounter
--- OUTSIDE RECORDS SUMMARY | 2024-11-02 12:44 | XMS_ITS | Clinical Summary ---
Author Organization [facility], Address [address] [place] [address] [place] [address] Phone Care Team Providers Care Division Sergeant Name Role Phone Evelyn Rodriguez Primary Care [...] this topic Insurance Medicaid [place] Care Teams Division Sergeant Relationship Specialty Start Date End Date Evelyn Rodriguez FNP PCP - General 02/18/23
--- OUTSIDE RECORDS SUMMARY | 2024-11-02 12:44 | XMS_ITS | Continuity of Care Document ---
Author Organization [facility] Address [address] [place] [address] Phone Care Team Providers Care Coil Maker Name Role Phone Waldo MADDOX FACS RVT [...] E&M Established 15 Mins [facility], [address] [place] [address] [address] [address]Pr[place]ep [place], [id number], [place] tel:[phone] [facility] Venous insufficiency (chronic) (peripheral) 3 Waldo MADDOX FACS RVT MIRI Rapp. [address] [place] [address], [place], [address], [place]. tel:[phone] Referring Provider: Rebekah Guevara, [address] [place], [address]. tel:[phone] [facility] MD PHILLIPS, [address] [place] [address] [address]Pradeep [place], [id number], [place] tel:[phone] CVR - [place] - [place] Encntr for f/u exam aft trtmt for cond oth than malig neoplmVenous insufficiency (chronic) (peripheral) 3 Waldo MADDOX FACS RVT MIRI Rapp. [address] [place] [address], [place], [address], [place]. tel:[phone] Referring Provider: Rebekah Guevara, [address] [place] [address], [address]. tel:[phone] [facility], [address] [place] [address] [address]Pradeep [place], [id number], [place] tel:[phone] CVR - [place] - [place] Venous insufficiency (chronic) (peripheral) 3 Waldo MADDOX FACS RVT MIRI Rapp. [address] [place] [address], [place], [address], [place]. tel:[phone] Referring Provider: Rebekah Guevara, [address] [place] [address], [address]. tel:[phone] [facility] MD PHILLIPS, [address] [place] [address] [address]Pradeep [place], [id number], [place] tel:[phone] CVR - [place] - [place] Venous insufficiency (chronic) (peripheral) 3 Waldo MADDOX FACS RVT MIRI Rapp. [address] [place] [address], [place] [address], [place], [address], [place]. tel:[phone] Referring Provider: Rebekah Guevara, [address] [place], [address]. tel:[phone] [facility], [address] [place] [address] [address]Pradeep [place], [id number], [place] tel:[phone] CVR - [place] - [place] No Information 3 Waldo Rapp. [address] [facility], [address] [facility], [place], [address], [place]. tel:[phone] Referring Provider: Rebekah Guevara, [address] [place] [address], [address]. tel:[phone] [facility], [address] [place] [address] [address]Pradeep [place], [id number], [place] tel:[phone] CVR - [place] - [place] Encntr for f/u exam aft trtmt for cond oth than malig neoplmVenous insufficiency (chronic) (peripheral) 3 Waldo Rapp. [address] [place] [address], [place] [address], [place], [address], [place]. tel:[phone] Referring Provider: Rebekah Guevara, [address] [place] [address], [address]. 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 [address] [place] [address], [facility] [address], [place], [address], [place]. tel:[phone] Referring Provider: Rebekah Guevara, [address] [place], [address]. tel:[phone] [facility] MD PHILLIPS, [address] [place] [address] [address]Pradeep [place], [id number], [place] tel:[phone] CVR - [place] Venous insufficiency (chronic) (peripheral) 3 Waldo Rapp. [facility] [facility], [address], [place], [address], [place]. [phone] Referring Provider: Rebekah Guevara, [address] [place], [address]. tel:[phone] Family History Family Member Type Diagnosis Age At Onset No Information Payers Payer name Insurance type Covered libertarian ID Authorlitzy funes(s) Medical Assistance DANIEL [id number] Social History Type Description Quantity Date Captured [...]
--- OUTSIDE RECORDS SUMMARY | 2024-11-02 12:44 | XMS_ITS | Encounter Summary ---
Author Organization [facility] Address [address] [facility] 7t [place] [address] Care Team Providers Care Therapy Site Coordinator Name Role Phone Evelyn Ledesma Primary Care Provider [phone] Oralia Aguila MD Primary Care Provider [phone] Zeinab Sykes MD Primary Care Provider + Encounter Details Date Type Department Care Team ([facility] Contact Info) Description 10/22/2022 Orders Only [facility] MEDICINE [address] [place] [address] Evelyn Ledesma FNP [address] [place] [address] Dept [place] [address] Social History Tobacco Use Types Packs/Day Years [...] Upcoming Encounters Date Type Department Care Team ([facility] Contact Info) Description 11/16/2024 11:00 AM EDT Nutrition [facility] DIABETES/NUTRITION [address] [place] [address] Juana Gusman, RD [address] [place] [address] 01/04/2025 11:00 AM EDT Office Visit [facility] ADULT DENTAL [address] [place] [address] Mykel, Fabi [address] [place] [address] 01/10/2025 12:00 PM EDT Office Visit [facility] MEDICINE [address] [place] [address] Zeinab Sykes MD [address] [place] [address] 01/22/2025 11:00 AM EDT Office Visit [facility] MEDICINE [address] [place] [address] documented as of this encounter Visit Diagnoses Not on filedocumented in this encounter Care Teams Therapy Site Coordinator Relationship Specialty Start Date End Date Evelyn Ledesma FNP PCP - General Family Medicine 03/15/22 04/25/23 Oralia Aguila MD [address] [place] [address] PCP - General Family Medicine 04/26/23 01/01/24 Zeinab Sykes MD [address] [place] [address] PCP - General Internal Medicine 01/02/24 Tomeka Martins Qa LeadFiler Repairer 10/27/23 documented as of this encounter
--- OUTSIDE RECORDS SUMMARY | 2024-11-02 12:44 | XMS_ITS | Encounter Summary ---
Author Organization [employer] [facility] Address [address] [place] [address] 7t [place] [address] Care Team Providers Care Regulatory Affairs Analyst Name Role Phone Oralia Aguila MD Primary Care Provider [phone] Zeinab Sykes MD Primary Care Provider + Reason for Visit * Reason Comments Med Refill Encounter Details Date Type Department Care Team (Late Contact Info) Description 09/21/2023 Refill [facility] MEDICINE [address] [place], [place] [phone] Oralia Aguila MD [address] [place], [place] [phone] Neuropathy Social History Tobacco Use Types Packs/Day [...] Description 11/16/2024 11:00 AM EDT Nutrition [facility] DIABETES/NUTRITION [address] [place], [place] [phone] Juana Gusman RD [address] [place], [place] [phone] 01/04/2025 11:00 AM EDT Office Visit [facility] ADULT DENTAL [address] [place] [address] Fabi Hogue [address] [place] [address] 01/10/2025 12:00 PM EDT Office Visit [facility] MEDICINE [address] [place] [address] Zeinab Sykes MD [address] [place] [address] 01/22/2025 11:00 AM EDT Office Visit [facility] MEDICINE [address] [place] [address] documented as of this encounter Goals Goal Patient Goal Type Associated Problems Recent Progress Patient-Stated? Author Patient will manage their medication General On track( 023 11:18 AM EDT) Citlali Ocampo, PharmD Note: Began medboxes. Goal achieved 11/19/22. Patient graduated from [facility]. documented as of this encounter Visit Diagnoses Diagnosis Neuropathy Mononeuritis of unspecified site documented in this encounter Care Teams Regulatory Affairs Analyst Relationship Specialty Start Date End Date Oralia Aguila MD [address] [place] [address] PCP - General Family Medicine 04/26/23 01/01/24 Zeinab Sykes MD [address] [place] [address] PCP - General Internal Medicine 01/02/24 Tomeka Martins Meat StufferA P Mechanic 10/27/23 documented as of this encounter
--- OUTSIDE RECORDS SUMMARY | 2024-11-02 12:44 | XMS_ITS | Encounter Summary ---
Author Organization [employer] [facility] Address [address] [place] [address] 7t [place] [address] Care Team Providers Care Party Host/Hostess Name Role Phone Evelyn Ledesma Primary Care Provider [phone] Oralia Aguila MD Primary Care Provider [phone] Zeinab Sykes MD Primary Care Provider + Reason for Visit * Reason Onset Date Comments Prior Authorization 12/28/2022 Encounter Details Date Type Department Care Team (Late st Contact Info) Description 12/28/2022 Telephone [facility] MEDICINE [address] [place] [address] Evelyn Ledesma FNP [address] [place] [address] [place] [address] Prior Authorization Social History Tobacco Use Types [...] AM EDT T/C placed to pt via [employer] Zeinab #[id number]. Advised of message from pcp re: lab [...] all other NSAIDS. Do you have a dot etcher yet? If not, your PCP would like [...] 12/28/2022 10:18 AM EDT THOMAS Emery from [employer] requesting XL pull ups and disposable under pads . States faxed request couple days ago and have not gotten a response . Informs paper work 12/29/22. Please call to clarify at phone # [phone] . documented in this encounter Plan of Treatment Upcoming Encounters Date Type Department Care Team (Late st Contact Info) Description 11/16/2024 11:00 AM EDT Nutrition [facility] DIABETES/NUTRITION [address] [place], [place] [phone] Juana Gusman, RD [address] [place] [address] 01/04/2025 11:00 AM EDT Office Visit [facility] ADULT DENTAL [address] [place] [address] Ruben Hoguearis [address] [place] [address] 01/10/2025 12:00 PM EDT Office Visit [facility] MEDICINE [address] [place] [address] Zeinab Sykes MD [address] [place] [address] 01/22/2025 11:00 AM EDT Office Visit [facility] MEDICINE [address] [place] [address] documented as of this encounter Goals Goal Patient Goal Type Associated Problems Recent Progress Patient-Stated? Author Patient will manage their medication General On track( 023 11:18 AM EDT) Citlali Ocampo, PharmCatrachita Note: Began medboxes. Goal achieved 11/19/22. Patient graduated from [facility]. documented as of this encounter Visit Diagnoses Not on filedocumented in this encounter Care Teams Party Host/Hostess Relationship Specialty Start Date End Date Evelyn Ledesma FNP PCP - General Family Medicine 03/15/22 04/25/23 Oralia Aguila MD [address] [place] [address] [phone] PCP - General Family Medicine 04/26/23 01/01/24 Zeinab Sykes MD [address] [place] [phone] PCP - General Internal Medicine 01/02/24 Tomeka Martins Community RepresentativeSenior Operations Analyst 10/27/23 documented as of this encounter
--- OUTSIDE RECORDS SUMMARY | 2024-11-02 12:44 | XMS_ITS | Encounter Summary ---
Author Organization [employer] [facility] Address [address] [place] [address] 7t [place] [address] Care Team Providers Care Instrument Lens Generator Name Role Phone Zeinab Sykes MD Primary Care Provider + Reason for Visit * Reason Onset Date Comments Med Refill 07/16/2024 Encounter Details Date Type Department Care Team ([facility] st Contact Info) Description 07/16/2024 Telephone [facility] MEDICINE [address] [place], [place] [phone] Zeinab Sykes MD [address] [place], [place] [phone] Med Refill Social History Tobacco Use Types [...] 10 MG capsule To be sent to: [facility] pharmacy documented in this encounter Plan of Treatment Upcoming Encounters Date Type Department Care Team (Late st Contact Info) Description 11/16/2024 11:00 AM EDT Nutrition [facility] DIABETES/NUTRITION [address] [place], [place] [phone] Juana Gusman RD [address] [place], [place] [phone] 01/04/2025 11:00 AM EDT Office Visit [facility] ADULT DENTAL [address] [place] [address] Fabi Hogue [address] [place] [address] 01/10/2025 12:00 PM EDT Office Visit [facility] MEDICINE [address] [place] [address] Zeinab Sykes MD [address] [place] [address] 01/22/2025 11:00 AM EDT Office Visit [address] [address] documented as of this encounter Goals Goal Patient Goal Type Associated Problems Recent Progress Patient-Stated? Author Patient will manage their medication General On track( 023 11:18 AM EDT) Citlali Ocampo, PharmCatrachita Note: Began medboxes. Goal achieved 11/19/22. Patient graduated from [facility]. documented as of this encounter Visit Diagnoses Not on filedocumented in this encounter Additional Health Concerns Assessment Noted Time PHQ-9 Depression Total Score: 18 024 1:46 PM EDT documented as of this encounter Care Teams Instrument Lens Generator Relationship Specialty Start Date End Date Zeinab Sykes MD [address] [place] [address] PCP - General Internal Medicine 01/02/24 Tomeka Martins Employee Relations ConsultantCommercial Finance Manager 10/27/23 documented as of this encounter
--- OUTSIDE RECORDS SUMMARY | 2024-11-02 12:44 | XMS_ITS | Encounter Summary ---
Author Organization [employer] [facility] Address [address] [place] [address] 7t [place] [address] Care Team Providers Care Technical Asst Name Role Phone Baltazar Evelyn EDWARDS Primary Care Provider [phone] Oralia Aguila MD Primary Care Provider [phone] Zeinab Sykes MD Primary Care Provider + Encounter Details Date Type Department Care Team (Latest Contact Info) Description 10/30/2020 Abstract [facility] CONVERSIONS Dental, Provider, DDS Social History [...] 11/16/2024 11:00 AM EDT Nutrition [facility] DIABETES/NUTRITION [address] [place] [address] Juana Gusman, MONICA [address] [place], [place] [phone] 01/04/2025 11:00 AM EDT Office Visit [facility] ADULT DENTAL [address] [place] [address] Fabi Hogue [address] [place] [address] 01/10/2025 12:00 PM EDT Office Visit [facility] MEDICINE [address] [place] [address] Zeinab Sykes MD [address] [place] [address] 01/22/2025 11:00 AM EDT Office Visit [address] [address] documented as of this encounter Visit Diagnoses Not on filedocumented in this encounter Care Teams Technical Asst Relationship Specialty Start Date End Date Evelyn Ledesma FNP PCP - General Family Medicine 03/15/22 04/25/23 Oralia Aguila MD [address] [place] [address] PCP - General Family Medicine 04/26/23 01/01/24 Zeinab Sykes MD [address] [place] [address] PCP - General Internal Medicine 01/02/24 Tomeka Martins Rpg Programmer AnalystManager Integration 10/27/23 documented as of this encounter
--- OUTSIDE RECORDS SUMMARY | 2024-11-02 12:44 | XMS_ITS | Encounter Summary ---
Author Organization [employer] Address [address] [facility] 7t [place] [address] Care Team Providers Care Jaw Skinner Name Role Phone Zeinab Sykes MD Primary Care Provider + Reason for Visit * Reason Comments Med Refill Encounter Details Date Type Department Care Team ([facility] st Contact Info) Description 05/04/2024 Refill [facility] MEDICINE [address] [place], [place] [phone] Zeinab Sykes MD [address] [place] [address] Other intervertebral disc displacement, lumbar region Social [...] Nutrition [facility] DIABETES/NUTRITION [address] [place] [address] Juana Gusman, MONICA [address] [place] [address] 01/04/2025 11:00 AM EDT Office Visit [facility] ADULT DENTAL [address] [place] [address] Mykel, Fabi [address] [place] [address] 01/10/2025 12:00 PM EDT Office Visit [facility] MEDICINE [address] [place] [address] Zeinab Sykes MD [address] [place] [address] 01/22/2025 11:00 AM EDT Office Visit [facility] MEDICINE [address] [place] [address] documented as of this encounter Goals Goal [...] documented as of this encounter Care Teams Jaw Skinner Relationship Specialty Start Date End Date Zeinab Sykes MD [address] [place] [address] PCP - General Internal Medicine 01/02/24 Tomeka Martins Gun StockerSeam Stayer 10/27/23 documented as of this encounter
--- OUTSIDE RECORDS SUMMARY | 2024-11-02 12:44 | XMS_ITS | Clinical Summary ---
Author Organization [facility] Address [address] [place] [address] Care Team Providers Care Special Education Resource Room Teacher Name Role Phone Meryl Montes Primary Care Provider [phone] Surgical History Surgery Date Site/Laterality Comments BREAST REDUCTION PROCEDURE: [place] BREAST REDUCTION BACK SURGERY PROCEDURE: HISTORICAL BACK SURGERY; COMMENT: L4-5 rt L5-S1 decomp 05/26/18 Medical History Medical History Date Comments Asthma DX:Asthma Diabetes mellitus type 2, co ntrolled, with complications (CMS/HCC V24, CMS/HCC V28) DX:Diabetes mellitus type 2, controlled, with complications ([facility]) Essential hypertension DX:Essent ial hypertension Depressive disorder [...] age to complete this topic Care Teams Special Education Resource Room Teacher Relationship Specialty Start Date End Date Meryl Montes [address] [place] [phone] PCP - General 05/07/22
--- OUTSIDE RECORDS SUMMARY | 2024-11-02 12:44 | XMS_ITS | Encounter Summary ---
Author Organization [employer] Address [address] [facility] 7t [place] [address] Care Team Providers Care Manager Line Name Role Phone Evelyn Ledesma Primary Care Provider [phone] Oralia Aguila MD Primary Care Provider [phone] Zeinab Sykes MD Primary Care Provider + Reason for Visit * Reason Onset Date Comments case from lab 11/04/2022 Encounter Details Date Type Department Care Team (Late st Contact Info) Description 11/04/2022 Telephone [facility] ADULT DENTAL [address] [place] [address] Asad Shore DDS [address] [place] [address] case from lab Social History Tobacco Use [...] 11/16/2024 11:00 AM EDT Nutrition [facility] DIABETES/NUTRITION [address] [place] [address] [place] [address] 01/04/2025 11:00 AM EDT Office Visit [facility] ADULT DENTAL [address] [place] [address] Mykel, Fabi [address] [place] [address] 01/10/2025 12:00 PM EDT Office Visit [facility] MEDICINE [address] [place] [address] Zeinab Sykes MD [address] [place] [address] 01/22/2025 11:00 AM EDT Office Visit [facility] MEDICINE [address] [place] [address] documented as of this encounter Visit Diagnoses Not on filedocumented in this encounter Care Teams Manager Line Relationship Specialty Start Date End Date Evelyn Ledesma FNP PCP - General Family Medicine 03/15/22 04/25/23 Oralia Aguila MD [address] [place] [phone] PCP - General Family Medicine 04/26/23 01/01/24 Zeinab Sykes MD [address] [place] [address] [place] [address] PCP - General Internal Medicine 01/02/24 Tomeka Martins Perioperative AssistantMotel Manager 10/27/23 documented as of this encounter
--- OUTSIDE RECORDS SUMMARY | 2024-11-02 12:44 | XMS_ITS | Encounter Summary ---
Author Organization [employer] Address [address] [place] [address] 7[address] [place] [address] Care Team Providers Care Berry Picker Machine Operator Name Role Phone Zeinab Sykes MD Primary Care Provider + Reason for Visit * Reason Onset Date Comments Med Refill 10/26/2024 Encounter Details Date Type Department Care Team (Late st Contact Info) Description 10/26/[address] [facility] MEDICINE [address] [place], [place] [phone] Zeinab Sykes MD [address] [place] [address] Other intervertebral disc displacement, lumbar region Social [...] 5-325 MG tablet To be sent to: [facility] documented in this encounter Plan of Treatment Upcoming Encounters Date Type Department Care Team (Late st Contact Info) Description 11/16/2024 11:00 AM EDT Nutrition [facility] DIABETES/NUTRITION [address] [place], [place] [phone] Juana Gusman, RD [address] [place] [address] 01/04/2025 11:00 AM EDT Office Visit [facility] ADULT DENTAL [address] [place] [address] Mykel, Fabi [address] [place] [address] 01/10/2025 12:00 PM EDT Office Visit [facility] MEDICINE [address] [place] [address] Zeinab Sykes MD [address] [place] [address] 01/22/2025 11:00 AM EDT Office Visit [facility] MEDICINE [address] [place] [address] documented as of this encounter Goals Goal [...] documented as of this encounter Care Teams Berry Picker Machine Operator Relationship Specialty Start Date End Date Zeinab Sykes MD [address] [place] [address] PCP - General Internal Medicine 01/02/24 Tomeka Martins Molasses Feed MixerResearch Biologist 10/27/23 documented as of this encounter
--- OUTSIDE RECORDS SUMMARY | 2024-11-02 12:44 | XMS_ITS | Encounter Summary ---
Author Organization [facility], Address [address] [place] [address] Phone Care Team Providers Care Collision Center Manager Name Role Phone Evelyn Rodriguez Primary Care Provider Silvana vailable Encounter Details Date Type Department Care Team (Late st Contact Info) Description 02/18/2023 Documentation Only [facility], [address] [place] [address] Xiao Sheppard [address] [place] [address] Social History Tobacco Use Types [...] on filedocumented in this encounter Care Teams Collision Center Manager Relationship Specialty Start Date End Date Evelyn Rodriguez FNP PCP - General 02/18/23 documented as of this encounter
--- OUTSIDE RECORDS SUMMARY | 2024-11-02 12:44 | XMS_ITS | Encounter Summary ---
Author Organization [employer] [facility] Address [address] [place] [address] 7t [place] [address] Care Team Providers Care Skid Man Name Role Phone Zeinab Sykes MD Primary Care Provider + Reason for Visit * Reason Comments Dentures Encounter Details Date Type Department Care Team ([facility] st Contact Info) Description 10/31/2024 8:30 AM EDT Office Visit [facility] ADULT DENTAL [address] [place] [address] Gay Thompson, DDS [address] [place] [address] Fracture of removable partial denture (Primary Dx) [...] Info) Description 11/16/2024 11:00 AM EDT Nutrition [facility] DIABETES/NUTRITION [address] [place], [place] [phone] Juana Gusman RD [address] [place], [place] [phone] 01/04/2025 11:00 AM EDT Office Visit [facility] ADULT DENTAL [address] [place], [place] [phone] Fabi Hogue [address] [place], [place] [phone] 01/10/2025 12:00 PM EDT Office Visit [facility] MEDICINE [address] [place] [address] Zeinab Sykes MD [address] [place] [address] 01/22/2025 11:00 AM EDT Office Visit [address] [address] Scheduled Orders Name Type Priority Associated Diagnoses [...] medboxes. Goal achieved 11/19/22. Patient graduated from [facility]. documented as of this encounter Procedures Procedure Name Priority Date/Time Associated Diagnosis Comments NO CHARGE PROCEDURE Routine 10/31/2024 8:30 AM EDT documented in this encounter Visit Diagnoses Diagnosis Fracture of removable partial denture- Primary documented in this encounter Additional Health Concerns Assessment Noted Time PHQ-9 Depression Total Score: 22 025 10:31 AM EST documented as of this encounter Care Teams Skid Man Relationship Specialty Start Date End Date Zeinab Sykes MD [address] [place] [address] PCP - General Internal Medicine 01/02/24 Tomeka Martins Cargo Tank MechanicLithograph Designer 10/27/23 documented as of this encounter
== END 2024-11-02 11:01 | disposition home or self-care (01) ==
LOC: HO.HOSX 11:00
PROVIDERS: PCP Internal Medicine
DX: M25.531 Pain in right wrist (principal); M25.532 Pain in left wrist
CPT/HCPCS: 73110; 99202

== ENCOUNTER → 2024-11-02 11:40 | Outpatient (BNV) | payer MEDICARE, MEDICAID, SELFPAY | PROVIDERS: PCP Internal Medicine; Visit Provider Radiology Diagnostic Radiology | DX: M18.11 Unilateral primary osteoarthritis of first carpometacarpal joint, right hand (principal); M19.041 Primary osteoarthritis, right hand | CPT/HCPCS: 73110 ==

== ENCOUNTER 2024-11-21 10:45 | Outpatient (AMB) | payer MEDICARE, MEDICAID, SELFPAY ==
--- NOTE | 2024-11-21 10:47 | A.OFFVIS_ITS ---
Vital Signs 11/21/24 10:54 Height 5 ft 3 in Weight 196 lb 3.382 oz BMI 34.8 BP 174/77 H Blood Pressure Location Lt brachial Position Sitting Pulse 76 Pulse Source Pulse Oximeter Pulse Oximetry (%) 95 Oxygen Delivery Method Room Air Intake Visit Reasons: Follow up Polyps Intake Note: Pt presents to the office today for a follow up polyps. Allergies No Known Drug Allergies Allergy (Unknown, Verified 11/21/24 10:48) none pineapple [PINEAPPLE] Allergy (Unknown, Verified 11/21/24 10:48) TONGUE SWELLS latex Allergy (Verified 11/21/24 10:48) Unknown HPI HPI Follow up Polyps: Details: Assessment & Plan (1) Adenomatous colon polyp: Comment: Repeat asymptomatic colonoscopy- 3 years-2023 Code(s): D12.6 - Benign neoplasm of colon, unspecified Category: Medical (2) Irritable bowel syndrome with constipation: Code(s): K58.1 - Irritable bowel syndrome with constipation Category: Medical (3) Rectal spasm: Code(s): K59.4 - Anal spasm Category: Medical Plan [place] #Zeinab Live With review of the chart it appears she has here not for management of chronic GERD but for her repeat colonoscopy that was called for for 3 years after 3 polyps removed in 2020 although only to move them were TA is. She says I have 2 concerns she is having multiple daily BM's but she will have fecal smearing despite copious cleaning. This has been ongoing for years. She does not feel she that she is constipated, because of the multiple daily movements. I explain, however, that this can be a sign of IBS-C with incomplete evacuation, but the ddx also could include rectal incompetence or even prolapse. She eats fruits, but otherwise her diet is mostly low fiber carbs and meats. She says that when she was on fiber in the past it was not helpful. She has had 3 mos of pressure in the rectal and vaginal area, that at times is stabbing briefly. She has run the problem by her urologist and her BENEFITS COUNSELOR but they said it has nothing to do with us ask the gastro. I ask if they ever did an exam for a prolapse - she has had 2 surgeries for vaginal prolapse. Her pain started after the most recent one done in 01/2024 at [facility]. 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 She has a CT scan that was ordered by her financial recruiter and I would also be curious to see this to see if there is any gross evidence of prolapse from her prior surgery at [facility]. This was apparently done to address her urinary issues and in the past she has had a bladder stimulator. Her asthma is well controlled and she denies any cardiac problems. There are no prior problems with anesthesia or sedation. There are no infectious disease problems. ROV next available. Orders: Orders Colonoscopy - GI Use Only Today D12.6 - Benign neoplasm of colon, unspecified Medications: New sennosides (Senna Laxative) 17.2 mg (2 x 8.6 mg) PO BEDTIME 60 tabs 6RF K58.1 - Irritable bowel syndrome with constipation dicyclomine 20 mg PO BID 30 days 60 tabs 3RF K58.1 - Irritable bowel syndrome with constipation, K59.4 - Anal spasm peg 3350-electrolytes 236-22.74-6.74 -5.86 gram (Golytely) until fecal effluent is clear; do not exceed a total volume of 2,000 mL 240 mL PO Q10M 1 day 4,000 mL 0RF Z12.11 - Encounter for screening for malignant neoplasm of colon bisacodyl (Dulcolax (bisacodyl)) 10 mg (2 x 5 mg) PO BEDTIME 2 days 4 tabs 0RF COLONOSCOPY not yet contacted but tracking note is in chart BIOPSY TODAY'S VISIT [place] #[id number] (With review of the chart it appears she has here not for management of chronic GERD but for her repeat colonoscopy that was called for for 3 years after 3 polyps removed in 2020 although only to move them were TA is.) She tells me that the green pills caused post prandial diarrhea. This was less but still occurred with 1 every night, she even had one episode of near fecal incontinence. So, it sounds like titrating the senna is not a good option for her. I will change to MOM and try to titrate. She also is still having fecal leakage that may indicate incomplete evacuation. She says she saw her BENEFITS COUNSELOR and they did not find any vaginal problems. She had had a LOT of vaginal surgeries, but she feels this problem pre dated her vaginal surgeries - she also had hx of back problems and surgery so interrupted nerve signals could be in the ddx. 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 She did feel that the dicyclomine was helpful with her pain. However she was only taking 1 at bedtime and she does have breakthrough pain during the day so I suggest she take 1 in the evening 1 in the morning and then keep a 3rd for p.r.n. use for breakthrough pain. She is agreeable to this. Along with the milk of magnesia we will see how she does and evaluate her response to the medications. She is ask quite a lot of questions about whether we will be able to see the origin of the pathology via colonoscopy. I advised her that this is probably not likely unless there is a severe anatomic abnormality. Ordinarily these sort of problems of the intestine are functional and not due to anyone causative factor. The good news is it that they are not deadly but they are usually due to a number of different factors that affect the bowels at any given time including hormones, neural signals, internal and external milieu etc. if this is the case once we have ruled out any severe pathology we treat the symptoms. Depending on her response there is the possibility of rectal incompetence and we could consider something like a balloon expulsion test. However I would have to send her to different institution for this. Return office visit next available [facility] Medical History Environmental allergies Hypertension Primary osteoarthritis of left knee Primary osteoarthritis of right knee Hemorrhoids Diverticulosis large intestine w/o perforation or abscess w/o bleeding Encounter for screening colonoscopy Preoperative cardiovascular examination HART (dyspnea on exertion) Epigastric pain Chronic cough Gastric outlet obstruction Complications of bariatric procedures Pre-syncope Encounter for well woman exam with routine gynecological exam Postmenopausal bleeding Elevated cholesterol Full dentures Low back pain COVID-19 vaccine series completed Asthma Palpitations Diabetes mellitus Obesity Erosive osteoarthritis Primary osteoarthritis of knees, bilateral Surgical History H/O perineoplasty H/O bariatric surgery Status post total right knee replacement History of bladder surgery History of total bilateral knee replacement Hx of colonoscopy Hx of reduction mammoplasty Hx of tonsillectomy History of H/O Spinal surgery Family History Mother Hx of acute arthritis Father History of Parkinson's disease Social History Household Members Other:: Daughter Housing: House Are you a primary home care consultant to a significant other at home: No Do you presently have visiting nurse or other home services: No Unable to assess alcohol history related to: Unknown Alcohol intake: never Patient Tobacco Use Status: Never used Tobacco Current occupational status: disabled Current occupation: rt handed Sexual orientation: Straight/Heterosexual Gender identity: Female Review of Systems Const Denies fatigue, Denies fever(s), Denies night sweats, Denies poor appetite and Denies weight loss ENT Reports Normal hearing present, Denies dysphagia, Denies odynophagia, Denies throat swelling and Denies tongue swelling Card Reports no additional complaints Resp Reports no additional complaints GI Details: Reports abdominal pain, Denies melena, Denies bloating, Denies hematochezia, Reports constipation, Denies GI cramping, Denies dysphagia, Denies excessive flatus, Denies early satiety, Reports heartburn, Denies diarrhea, Denies nausea, Denies odynophagia, Denies vomiting, Denies hematemesis and Reports other (Rectal leakage) Reports pelvic pain (Suprapubic) Musc Reports back pain Skin/Breast Denies pruritus, Denies lesions, Denies rash and Denies jaundice Neuro Reports Normal hearing present and Denies Abnormal speech present Endo Denies fatigue Aller/Immun Denies throat swelling and Denies tongue swelling Physical Exam Vital Signs: Last Vital Signs Pulse 76 11/21/24 10:54 BP 174/77 H 11/21/24 10:54 Pulse Ox 95 11/21/24 10:54 Oxygen Delivery Method Room Air 11/21/24 10:54 BMI result Body Mass Index 34.8 Const General: cooperative, no acute distress, well developed and well groomed Nutritional Appearance: well nourished and obese Orientation/consciousness: oriented to person, oriented to place and oriented to time Limitations: language barrier HEENT Head: Yes normocephalic and Yes atraumatic Eyes General: appearance normal, both eyes and all related structures Pupils: Equal, round and reactive pupils present Neck Neck: Yes normal visual inspection and Yes no lymphadenopathy Thyroid: Thyroid normal Resp Effort & Inspection: normal respiratory effort and able to speak in complete sentences Auscultation: clear to auscultation bilaterally Cardio Rate: regular rate Rhythm: regular rhythm Heart sounds: Normal, physiologic split S2 sound present Peripheral pulses: radial pulses present and posterior tibial pulses present GI Inspection: No distended, Yes Abdominal panniculus present and Yes obesity Palpation (GI): Soft to palpation, nontender, no guarding, not rigid and No hepatosplenomegaly present Percussion: Yes normal to percussion Auscultation: normal bowel sounds Rectal Exam - Female: deferred Skin General skin exam: no rashes or lesions noted, turgor normal, skin not dry, no jaundice, No spider nevi and no striae Rashes: no rashes Nails: normal Neuro General: oriented to person, oriented to place and oriented to time Cranial nerves: Yes Equal, round and reactive pupils present and Yes Normal hearing present Speech: No Abnormal speech present Extrem General: Yes normal to inspection, No clubbing, No cyanosis and No edema Psych Appearance: grossly normal and well kempt Mental Status: mental status grossly normal Speech and movement: Normal speech and movement present Affect: normal affect Attitude: cooperative Thought process: Normal thought process present and not confabulating Thought content: Normal thought content present Insight: Limited insight present (Psych) Judgement: Limited judgement present (Psych) Assessment & Plan Assessment & Plan (1) Irritable bowel syndrome with constipation: Code(s): K58.1 - Irritable bowel syndrome with constipation Category: Medical (2) Rectal spasm: Code(s): K59.4 - Anal spasm Category: Medical (3) Adenomatous colon polyp: Comment: Repeat asymptomatic colonoscopy- 3 years-2023 Code(s): D12.6 - Benign neoplasm of colon, unspecified Category: Medical Plan [place] #[id number] (With review of the chart it appears she has here not for management of chronic GERD but for her repeat colonoscopy that was called for for 3 years after 3 polyps removed in 2020 although only to move them were TA is.) She tells me that the green pills caused post prandial diarrhea. This was less but still occurred with 1 every night, she even had one episode of near fecal incontinence. So, it sounds like titrating the senna is not a good option for her. I will change to MOM and try to titrate. She also is still having fecal leakage that may indicate incomplete evacuation. She says she saw her BENEFITS COUNSELOR and they did not find any vaginal problems. She had had a LOT of vaginal surgeries, but she feels this problem pre dated her vaginal surgeries - she also had hx of back problems and surgery so interrupted nerve signals could be in the ddx. 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 She did feel that the dicyclomine was helpful with her pain. However she was only taking 1 at bedtime and she does have breakthrough pain during the day so I suggest she take 1 in the evening 1 in the morning and then keep a 3rd for p.r.n. use for breakthrough pain. She is agreeable to this. Along with the milk of magnbritney we will see how she does and evaluate her response to the medications. She is ask quite a lot of questions about whether we will be able to see the origin of the pathology via colonoscopy. I advised her that this is probably not likely unless there is a severe anatomic abnormality. Ordinarily these sort of problems of the intestine are functional and not due to anyone causative factor. The good news is it that they are not deadly but they are usually due to a number of different factors that affect the bowels at any given time including hormones, neural signals, internal and external milieu etc. if this is the case once we have ruled out any severe pathology we treat the symptoms. Depending on her response there is the possibility of rectal incompetence and we could consider something like a balloon expulsion test. However I would have to send her to different institution for this. Return office visit next available COLONOSCOPY not yet contacted but tracking note is in chart BIOPSY Medications: New magnesium hydroxide (Milk of Magnesia) 5 mL PO BEDTIME 355 mL 6RF K58.1 - Irritable bowel syndrome with constipation Changed From dicyclomine 20 mg PO BID 30 days 60 tabs 3RF K58.1 - Irritable bowel syndrome with constipation, K59.4 - Anal spasm To dicyclomine 1 tab qhs, 1 tab qam scheduled, 1 tablet prn breakthrough cramps orally 3 times a day; 90 tabs 6RF 30 days K58.1 - Irritable bowel syndrome with constipation, K59.4 - Anal spasm Discontinued sennosides (Senna Laxative) Discontinued Reason: Doctor's Order 17.2 mg (2 x 8.6 mg) PO BEDTIME 60 tabs 6RF K58.1 - Irritable bowel syndrome with constipation Coding Level of Care Code Est Pt Level 4 (45333) Diagnoses Irritable bowel syndrome with constipation K58.1 Rectal spasm K59.4 Adenomatous colon polyp D12.6 Time Spent (min) 35
[2024-11-21 10:54] VITALS: BP 174/77; PULSE 76; O2SAT 95; BMI 34.8
--- OUTSIDE RECORDS SUMMARY | 2024-11-21 12:05 | XMS_ITS | Encounter Summary ---
Author Organization [employer] Address [address] [place] [address] Care Team Providers Care Telesales Manager Name Role Phone Zeinab Sykes MD Primary Care Provider + Encounter Details Date Type Department Care Team ([facility] st Contact Info) Description 09/20/2024 Orders Only [facility] PEDS [address] [place] [address] ProviderParag MD Social History Tobacco Use Types [...] Care Team (Late st Contact Info) Description 01/04/2025 11:00 AM EDT Office Visit [facility] ADULT DENTAL [address] [place] [address] Mykel, Fabi [address] [place] [address] 01/10/2025 12:00 PM EDT Office Visit [facility] MEDICINE [address] [place] [address] Zeinab Sykes MD [address] [place] [address] 01/22/2025 11:00 AM EDT Office Visit [facility] MED[facility]INE [address] [place] [phone] documented as of this encounter Goals Goal [...] Narrative 10/19/2024 4:14 PM EDT ? [facility] ?[address] ?[place] [address] ? CT Scan Report ? Signed ? Patient: Rhonda Fernádnez ?MR# ?? : [id number] ? : 1960 ?Acct:[id number] ? Age/Sex: 63 / F ?ADM Date: 10/18/24 ? Loc: HO.CT ? Attending Dr: Nolberto Quigley MD ? Ordering Physician: Nolberto Quigley MD ?? Date of Service: 10/18/24 ?? Procedure(s): CT abdomen pelvis w IV con ?? Accession Number(s): [id number] ? cc: Zeinab Sykes MD; Nolberto Quigley MD ? Report Number: ?? [id number]: Total DLP = ??538.00 mGy-cm ? CLINICAL [...] MD in OV> ? 10/19/241613 ? DD/ 12 ? TD/TT: 10/19/241612 ? Steam Powerplant Supervisor: ? Procedure Note Donotuseinterpreter, Image - 10/19/[address] [address] [address] Scan Report Signed Patient: Karla Fernández# : [id number] : 1960Acct:[id number] Age/Sex: 63 / FADM Date: 10/18/24 Loc: HO.CT Attending Dr: Nolberto Quigley MD Ordering Physician: Nolberto Quigley MD Date of Service: 10/18/24 Procedure(s): CT abdomen pelvis w IV con Accession Number(s): [id number] cc: Zeinab Sykes MD; Nolberto Quigley MD Report Number: [id number]: Total DLP = 538.00 mGy-cm CLINICAL HISTORY: [...] 10/19/24 1614 DD/ 1613 TD/TT: 10/19/24 1613 Steam Powerplant Supervisor: us [facility] External Provider IMG CT PROCEDURES Final Result * XR Wrist 3+ Views Left (10/16/2024 5:26 PM EDT) Anatomical Region Laterality Modality Upper Extremities, Wrist Left Radiogr aphic Imaging 10/16/2024 5:26 PM EDT Narrative 10/16/2024 5:28 PM EDT ? [place] [facility] ?[address] ?[place] [address] ?XRay Report ? Signed ? Patient: Gerry Mclaughlin,Rhonda ?MR# ?? : [id number] ? : 1960 ?Acct:[id number] ? Age/Sex: 63 / F ?ADM Date: 10/16/24 ? Loc: HO.ED ? Attending Dr: ? Ordering Physician: Lanette Laura PA-C ?? Date of Service: 10/16/24 ?? Procedure(s): XR wrist LT min 3V ?? Accession Number(s): [id number] ? cc: Zeinab Sykes MD; Lanette Laura [...] Enedina Beltran MD in OV> ? 10/16/24 1727 ? DD/ ? TD/TT: 10/16/241725 ? Steam Powerplant Supervisor: ? Procedure Note Mary, Image - 10/16/2024 [place] [address] XRay Report Signed Patient: Karla Fernández# : [id number] : 1960Acct:[id number] Age/Sex: 63 / FADM Date: 10/16/24 Loc: HO.ED Attending Dr: Ordering Physician: Lanette Laura PA-C Date of Service: 10/16/24 Procedure(s): XR wrist LT min 3V Accession Number(s): [id number] cc: Zeinab Sykes MD; Lanette Laura PA-C [...] 10/16/24 1727 DD/ 172 TD/TT: 10/16/24 172 Steam Powerplant Supervisor: [facility] External Provider IMG XR PROCEDURES Final Result * XR Hip left with Pelvis 1 view (10/16/2024 5:24 PM EDT) Anatomical Region Laterality Modality Lower Extremities, Hip Bilateral Radiograp hic Imaging 10/16/2024 5:24 PM EDT Narrative 10/16/2024 5:26 PM EDT ? [facility] ?[address] ?[place] [address] ?XRay Report ? Signed ? Patient: Rhonda Fernández ?MR# ?? : [id number] ? : 1960 ?Acct:[id number] ? Age/Sex: 63 / F ?ADM Date: 10/16/24 ? Loc: HO.ED ? Attending Dr: ? Ordering Physician: Lanette Laura PA-C ?? Date of Service: 10/16/24 ?? Procedure(s): XR hip LT w PEL1V ?? Accession Number(s): [id number] ? cc: Zeinab Sykes MD; Lanette Laura [...] DD/ 1724 ? TD/TT: 10/16/24 1724 ? Steam Powerplant Supervisor: ? Procedure Note Mary, Carolina - 10/16/2024 [facility] [address] [place] [address] XRay Report Signed Patient: Karla Fernández# : [id number] : 1960Acct:[id number] Age/Sex: 63 / FADM Date: 10/16/24 Loc: HO.ED Attending Dr: Ordering Physician: Lanette Laura PA-C Date of Service: 10/16/24 Procedure(s): XR hip LT w PEL1V Accession Number(s): [id number] cc: Zeinab Sykes MD; Lanette Laura PA-C [...] 10/16/24 1725 DD/ 1724 TD/TT: 10/16/24 1724 Steam Powerplant Supervisor: [facility] External Provider IMG XR PROCEDURES Final Result * XR Elbow 3+ Views Left (10/16/2024 5:23 PM EDT) Anatomical Region Laterality Modality Upper Extremities, Elbow Left Radiogr aphic Imaging 10/16/2024 5:23 PM EDT Narrative 10/16/2024 5:25 PM EDT ? [facility] ?[address] ?[place] [address] ?XRay Report ? Signed ? Patient: Gerry Mclaughlin,Rhonda ?MR# ?? : [id number] ? : 1960 ?Acct:[id number] ? Age/Sex: 63 / F ?ADM Date: 04/01/25 ? Loc: HO.ED ? Attending Dr: ? Ordering Physician: Lanette Laura PA-C ?? Date of Service: 10/16/24 ?? Procedure(s): XR elbow LT min 3V ?? Accession Number(s): [id number] ? cc: Zeinab Sykes MD; Lanette Laura [...] MD in OV> ? 10/16/244 ? DD/ 22 ? TD/TT: 10/16/24 1723 ? Steam Powerplant Supervisor: ? Procedure Note Carolina Hernandez - 10/16/[address] [address] XRay Report Signed Patient: Karla Fernández# : [id number] : 1960Acct:[id number] Age/Sex: 63 / FADM Date: 10/16/24 Loc: HO.ED Attending Dr: Ordering Physician: Lanette Laura PA-C Date of Service: 10/16/24 Procedure(s): XR elbow LT min 3V Accession Number(s): [id number] cc: Zeinab Sykes MD; Lanette Laura PA-C [...] MD in OV> 10/16/241723 DD/ 22 TD/TT: 10/16/241722 Steam Powerplant Supervisor: us [facility] External Provider IMG XR PROCEDURES Final Result * CT Cervical Spine w/o Contrast (10/16/2024 5:18 PM EDT) Anatomical Region Laterality Modality Spine, C-spine Computed Tomogra phy 10/16/2024 5:18 PM EDT Narrative 10/16/2024 5:19 PM EDT ? [facility] ?[address] ?[place] [address] ? CT Scan Report ? Signed ? Patient: Gerry Mclaughlin,Rhonda ?MR# ?? : [id number] ? : 1960 ?Acct:[id number] ? Age/Sex: 63 / F ?ADM Date: 10/16/24 ? Loc: HO.ED ? Attending Dr: ? Ordering Physician: Lanette Laura PA-C ?? Date of Service: 10/16/24 ?? Procedure(s): CT cervical spine wo IV con ?? Accession Number(s): [id number] ? cc: Zeinab Sykes MD; Lanette Laura PA-C ? Report Number: ?? [id number]: Total DLP = ??605.00 mGy-cm ? CLINICAL [...] DD/ 1718 ? TD/TT: 10/16/24 1718 ? Steam Powerplant Supervisor: ? Procedure Note Carolina Hernandez - 10/16/2024 [facility] [address] [place] [address] CT Scan Report Signed Patient: Gerry MclaughlinKarla# : [id number] : 1960Acct:[id number] Age/Sex: 63 / FADM Date: 10/16/24 Loc: HO.ED Attending Dr: Ordering Physician: Lanette Laura PA-C Date of Service: 10/16/24 Procedure(s): CT cervical spine wo IV con Accession Number(s): [id number] cc: Zeinab Sykes MD; Lanette Laura PA-C Report Number: [id number]: Total DLP = 605.00 mGy-cm CLINICAL HISTORY: [...] in OV> 10/16/241718 DD/ 17 TD/TT: 10/16/241717 Steam Powerplant Supervisor: [facility] External Provider IMG CT PROCEDURES Final Result * Hm Colonoscopy (11/05/2020 11:36 AM EDT) Historical Provider HEALTH MAINTENANCE Final Result documented in this encounter Visit Diagnoses Not on filedocumented in this encounter Additional Health Concerns Assessment Noted Time PHQ-9 Depression Total Score: 22 025 10:31 AM EST documented as of this encounter Care Teams Telesales Manager Relationship Specialty Start Date End Date Zeinab Sykes MD [address] [place] [id number] PCP - General Internal Medicine 01/02/24 Tomeka Martins Stamp PresserHoop Cutter 10/27/23 [facility] 11/06/24 documented as of this encounter
--- OUTSIDE RECORDS SUMMARY | 2024-11-21 12:05 | XMS_ITS | Encounter Summary ---
Author Organization [facility], Address [address] [place] [address] Phone Care Team Providers Care Humidifier Operator Name Role Phone Evelyn Rodriguez Primary Care Provider Silvana vailable Encounter Details Date Type Department Care Team (Late st Contact Info) Description 02/18/2023 Documentation Only [facility], [address] [place] [address] Xiao Sheppard [address] [place] [address] Social History Tobacco Use Types [...] on filedocumented in this encounter Care Teams Humidifier Operator Relationship Specialty Start Date End Date Evelyn Rodriguez FNP PCP - General 02/18/23 documented as of this encounter
--- OUTSIDE RECORDS SUMMARY | 2024-11-21 12:05 | XMS_ITS | Encounter Summary ---
Author Organization [employer] Address [address] [facility] 7[address] [place] [address] Care Team Providers Care Compensation Intern Name Role Phone Evelyn Ledesma Primary Care Provider [phone] Oralia Aguila MD Primary Care Provider [phone] Zeinab Sykes MD Primary Care Provider + Reason for Visit * Reason Onset Date Comments Appointment Request 12/20/2022 Encounter Details Date Type Department Care Team (Late st Contact Info) Description 12/20/2022 Telephone [facility] [address] [place] [id number] Evelyn Ledesma FNP [address] [place] [address] Dept [place] [address] Appointment Request Social History Tobacco Use Types [...] encounter Miscellaneous Notes * Telephone Encounter - Ahiritza Haley Barron - 12/20/2022 10:16 AM EDT Tc from pt requesting a call from a nurse in regards to pre-op appt scheduled on January 14 2023. ( Ptwould like to change a appt for an earlier day) Please contact pt at [phone] documented in this encounter Plan of Treatment Upcoming Encounters Date Type Department Care Team (Late st Contact Info) Description 01/04/2025 11:00 AM EDT Office Visit [facility] [address] [place] [id number] Mykel, Fabi [address] [place] [address] 01/10/2025 12:00 PM EDT Office Visit [facility] [address] [place] [phone] Zeinab Sykes MD [address] [place] [phone] 01/22/2025 11:00 AM EDT Office Visit [facility] [address] [place] [phone] documented as of this encounter Goals Goal Patient Goal Type Associated Problems Recent Progress Patient-Stated? Author Patient will manage their medication General On track( 023 11:18 AM EDT) Citlali Ocampo, Anoop Note: Began medboxes. Goal achieved 11/19/22. Patient graduated from [facility]. documented as of this encounter Visit Diagnoses Not on filedocumented in this encounter Care Teams Compensation Intern Relationship Specialty Start Date End Date Evelyn Ledesma FNP PCP - General Family Medicine 03/15/22 04/25/23 Oralia Aguila MD [address] [place] [phone] PCP - General Family Medicine 04/26/23 01/01/24 Zeinab Sykes MD [address] [place] [address] PCP - General Internal Medicine 01/02/24 Tomeka Martins Supervisor Steffen House[employer] Administrator 10/27/23 [employer] 11/06/24 documented as of this encounter
--- OUTSIDE RECORDS SUMMARY | 2024-11-21 12:05 | XMS_ITS | Encounter Summary ---
Author Organization [employer] [facility] Address [address] [facility] [address] [place] [address] Care Team Providers Care Solar Water Heater Installer Name Role Phone Evelyn Ledesma Primary Care Provider [phone] Oralia Aguila MD Primary Care Provider [phone] Zeinab Sykes MD Primary Care Provider + Encounter Details Date Type Department Care Team ([facility] Contact Info) Description 08/20/2022 Orders Only [facility] [address] [place] [address] Karen Henderson FNP Social History Tobacco Use [...] Department Care Team (Late Contact Info) Description 01/04/2025 11:00 AM EDT Office Visit [facility] [address] [place] [address] Ruben Hoguearis [address] [place] [address] 01/10/2025 12:00 PM EDT Office Visit [address] [address] Zeinab Sykes MD [address] [place] [phone] 01/22/2025 11:00 AM EDT Office Visit [address] [address] documented as of this encounter Visit Diagnoses Not on filedocumented in this encounter Care Teams Solar Water Heater Installer Relationship Specialty Start Date End Date Evelyn Ledesma FNP PCP - General Family Medicine 03/15/22 04/25/23 Oralia Aguila MD [address] [place] [phone] PCP - General Family Medicine 04/26/23 01/01/24 Zeinab Sykes MD [address] [place] [address] [phone] PCP - General Internal Medicine 01/02/24 Tomeka Martins Rate Clerk [employer] 10/27/23 [facility] 11/06/24 documented as of this encounter
--- OUTSIDE RECORDS SUMMARY | 2024-11-21 12:05 | XMS_ITS | Clinical Summary ---
Author Organization [employer] Address [address] [facility] [address] [place] [address] Care Team Providers Care Gear Milling Machine Set Up Operator Name Role Phone Zeinab Sykes MD Primary Care Provider + Allergies Active Allergy Reactions Criticality Noted Date Comments Latex Rash Low 06/09/2022 Pineapple Angioedema 12/15/2022 Medications ammonium lactate (Lac-Hydrin) 12 % lotion apply twice daily to affected area, rub in well Active hydrOXYzine HCl (Atarax) 25 MG tablet Take 1 tablet by mouth every 8 (eight) hours. PRN itching 022 Active Misc. Devices (Cane) misc Active Blood [...] inhaler Inhale 2 puffs 2 times daily. 12/09/2 023 Active Clobetasol Propionate 0.05 % lotion APPLY TO SCALP TWICE DAILY NEEDED FOR FLARE Active Myrbetriq 25 MG 24 hr tablet Take 25 mg by mouth in the morning. Active pantoprazole (ProtoNix) 20 MG EC tablet Take 20 mg by mouth in the morning. 023 Active doxepin (SINEquan) 10 MG capsule Take 10 mg by mouth in the morning. Active minoxidil (Loniten) 2.5 MG tablet Take 1.25 mg by mouth in the morning. Active oxymetazoline (Afrin Nasal [place]) 0.05 % nasal spray Administer 2 sprays [...] complication, without long-term current use of insulin ([facility]) 1 each by Other route Once per day. USE TO TEST BLOOD SUGAR ONCE A DAY 100 each 3 024 Active glucose blood (FREESTYLE LITE) test stripIndications:T ype 2 diabetes mellitus without complication, without long-term current use of insulin ([facility]) USE TO TEST BLOOD SUGAR ONCE A DAY 100 each 3 024 Active sodium chloride ([place] Nasal [place]) 0.65 % nasal sprayIndications:A cute nasopharyngitis Administer 1 spray into each nostril if needed for congestion. 30 mL 1 025 2025 Active Alcohol Swabs (Alcohol Prep) padsIndications:Ty pe 2 diabetes mellitus without complication, without long-term current use of insulin ([facility]) USE TWICE DAILY 100 each 5 025 [...] by mouth at bedtime. 90 tablet 1 025 Active ergocalciferol (Vitamin D2) 1.25 MG (05913 UT) capsule Take 1 capsule (1.25 mg) by mouth 1 (one) time per week. 12 capsule 1 025 Active gabapentin (Neurontin) 300 MG capsuleIndications :Neuropathy TAKE 1 CAPSULE BY MOUTH THREE TIMES DAILY IN THE MORNING, EVENING, AND BEDTIME 90 capsule 3 025 Active oxyCODONE-acetamin ophen (Percocet) 5-325 MG tabletIndications: Other intervertebral disc displacement, lumbar region Take 1 tablet by mouth every 6 (six) hours if needed for severe pain for up to 28 days. 112 tablet 025 2024 Active oxyCODONE-acetamin ophen (Percocet) 5-325 MG tabletIndications: Other intervertebral disc displacement, lumbar region Take 1 tablet by mouth every 6 (six) hours if needed for severe pain for up to 28 days. 112 tablet 025 2024 Discontinued(R eorder (will not trigger notification to Pharmacy)) acetaminophen (Tylenol 8 Hour) 650 MG ER tablet Take 1 tablet (650 mg) by mouth every 8 (eight) hours if needed for mild pain. Do not crush, chew, or split. 120 tablet 025 2024 Active Problems Problem Noted Date Diagnosed Date [...] bx, I will fu or refer to RN OR LVN after US reports. Left foot pain 03/29/2024 [...] L4-5 and right L5-S1 decompressive laminectomy at [facility] - surgeon Dr. Melia Pedroza DME request for 10-in-1 pillow on 07/31/24 (not approved by insurance) Assessment & Plan (09/27/2024 11:23 AM EDT): Known DDD L-spine with radiculopathy sxs 05/26/2018 - Lumbar decompression surgery: L4-5 and right L5-S1 decompressive laminectomy at [facility] - surgeon Dr. Melia Pedroza DME request for 10-in-1 pillow on 07/31/24 (not approved by insurance) Assessment & Plan (07/31/2024 4:58 PM EST): Known DDD L-spine with radiculopathy sxs 05/26/2018 - Lumbar decompression surgery: L4-5 and right L5-S1 decompressive laminectomy at [facility] - surgeon Dr. Melia Pedroza DME request for 10-in-1 pillow on 07/31/24 Assessment & Plan (05/29/2024 5:18 PM EST): Known DDD L-spine with radiculopathy sxs 05/26/2018 - Lumbar decompression surgery: L4-5 and right L5-S1 decompressive laminectomy at [facility] - surgeon Dr. Melia Pedroza Assessment [...] disc, s/p vagus nerve stimulator, neuropathy Last SHOTBLAST EQUIPMENT OPERATOR Agreement: 03/13/24 Tier 3: SHOTBLAST EQUIPMENT OPERATOR visit Q4-6 months. (Last evaluated Jul [...] in 3mo Fatty liver 02/04/2024 Overview (03/29/2024): [facility] [place]23 showed Fatty liver. Normal LFTs/albumin Assessment & Plan (03/29/2024 1:40 PM EDT): LFTs remain stable/normal. Dx d/w patient and advised her to continue tight control of DM, weight reduction, try to cut down on opiates and fu with me. I also advised her to avoid ETOH or recreational substances. Seborrheic dermatitis of scalp 01/02/2024 Overview (01/02/2024): Seen at [facility] dermatology Assessment & Plan (03/20/2024 3:50 PM EDT): Generally well controlled, encouraged to continue fu with [facility] derm Refill for fluocinolone today. Housing [...] pseudophedrine short term. Will refer her to counter server again so she can be evaluated for [...] albuterol prn. Will refer her back to counter server. RUQ pain 10/05/2023 Assessment & Plan (11/01/2023 [...] ballon inside the gastric body placed in [place] for bariatric procedure about 20 cm in [...] lumbar r egion 05/17/2017 Overview (09/17/2022): On SHOTBLAST EQUIPMENT OPERATOR contract. discussed tapering percocet options, not interested.. Referred to HIM forms dept for handicap plackards documents. Referred to [facility] for polypharmacy education. Continue medications as prescribed. Discussed Narcan. Encouraged nonpharmacologic pain relief strategies. will f/up next visit Assessment & Plan (03/20/2024 3:48 PM EDT): On SHOTBLAST EQUIPMENT OPERATOR contract. discussed tapering percocet options, not interested, it apparently offers partial enough improvement of sxs. Patient is aware that long term care phlebotomist use of opiates can cause hyperalgesia, liver toxicity, HUMAN RESOURCES OPERATIONS MANAGER toxicity, increase anxiety, among others. Will continue to work with chronic pain management [facility] clinic. Continue medications as prescribed. [...] PRN for elevated BP readings.. Referred to [facility] for polypharmacy education. Continue [...] to enails with type 2 diabetes mellitus ([facility]) 05/17/2017 03/29/2024 Encounters Date Type Department Care Team Description 11/02/2024 Orders Only [facility] External Provider, [facility] 11/01/2024 Telephone [facility] [address] [place] [phone] Zeinab Sykes MD MED B form 10/31/2024 8:30 AM EDT Office Visit [facility] [address] [place] [address] Gay Thompson, DDS Fracture of removable partial denture (Primary Dx) 10/30/2024 Telephone [facility] [address] [place] [address] Zeinab Sykes MD FYI 10/29/2024 Telephone [facility] [address] [place] [address] Zeinab Sykes MD Verbal Orders 10/26/2024 Refill [facility] [address] [place] [address] Zeinab Sykes MD Other intervertebral disc displacement, lumbar region 10/23/2024 11:00 AM EDT Office Visit [facility] [address] [place] [address] Alma Jha, RECONCILIATION ACCOUNTANT Lumbar back pain with radiculopathy affecting left lower extremity (Primary Dx); Long-term current use of opiate analgesic 10/23/2024 Travel 10/18/2024 Telephone [facility] [address] [place] [address] Zeinab Sykes MD ER Follow-up; Nurse Triage 10/17/2024 Refill [facility] [address] [place] [address] Zeinab Sykes MD Neuropathy 10/09/2024 11:45 AM EDT Office Visit [address] [address] Zeinab Sykes MD Moderate persistent asthma without complication (Primary Dx); Class 2 severe obesity with serious comorbidity and body mass index (BMI) of 35.0 to 35.9 in adult, unspecified obesity type (CMS/HCC); Type 2 diabetes mellitus without complication, without long-term current use of insulin ([facility]); Essential hypertension; Arthritis; Vitamin D deficiency 10/09/2024 Travel 10/01/2024 Travel 09/28/2024 Refill [facility] [address] [place] [address] Zeinab Sykes MD Other intervertebral disc displacement, lumbar region 09/28/2024 Population Health Risk Score [facility] ([facility]) Department [address] [place] [phone] Provider, Population Health Generic 09/25/2024 9:45 AM EDT Office Visit [facility] [address] [place] [address] Alma Jha FNP Lumbar back pain with radiculopathy affecting left lower extremity (Primary Dx); Long-term current use of opiate analgesic 09/25/2024 Travel 09/20/2024 Orders Only [facility] [address] [place] [address] Parag Torres MD 09/19/2024 Refill [facility] [address] [place] [address] Zeinab Sykes MD Left hand pain 08/31/2024 Refill [facility] [address] [place] [address] Zeinab Sykes MD Other intervertebral disc displacement, lumbar region 08/30/2024 Refill [facility] [address] [place] [address] Zeinab Sykes MD 08/29/2024 Refill [facility] [address] [place] [address] Oralia Aguila MD 08/27/2024 Telephone [facility] [address] [place] [address] Zeinab Sykes MD Results from Last 3 Months Immunizations Name Administration [...] Description 01/04/2025 11:00 AM EDT Office Visit [facility] [address] [place] [address] Ruben Hoguearis [address] [place] [address] 01/10/2025 12:00 PM EDT Office Visit [facility] [address] [place] [address] Zeinab Sykes MD [address] [place] [address] 01/22/2025 11:00 AM EDT Office Visit [facility] [address] [place] [address] Health Maintenance Due Date Last Done Comments [...] 12/21/2023 Lipid Panel 01/05/2025 01/06/2024, 05/19, 09/16/2020 Diabetes: Foot Exam 03/29/2025 03/29/2024, 03/29/2024, 03/29/2024, [...] Aged 60 years or older Completed 09/13/2023 Hepatitis C Screening Completed 01/06/2024, 022 HIB [...] achieved 11/19/22. Patient graduated from [facility]. Procedures Procedure Name Priority Date/Time Associated Diagnosis Comments XR WRIST 3+ VIEWS BILATERAL Routine 11/02/2024 11:40 AM EDT NO CHARGE PROCEDURE Routine 10/31/2024 8 :30 [...] complication, without long-term current use of insulin ([facility]) POCT GLUCOSE Routine 10/09/2024 11:58 AM EDT Type 2 diabetes mellitus without complication, without long-term current use of insulin ([facility]) POCT DIDIER-14 URINE DRUG SCREEN Routine 09/25/2024 11:35 AM EDT Lumbar back pain with radiculopathy affecting left lower extremity CREATININE, SERUM Routine 09/18/2024 3:5 7 PM EST Postmenopause bleeding UREA NITROGEN (BUN) Routine 09/18/2024 3 :57 PM EST Postmenopause bleeding POLYSOMNOGRAM Routine 09/11/2024 [place] (obstructive sleep apnea) PAP SMEAR Routine 06/01/2024 2:43 PM EST [...] Maintenance Results * XR Wrist 3+ Views Bilateral (11/02/2024 11:40 AM EDT) Anatomical Region Laterality Modality Upper Extremities, Wrist Bilateral Radiogr aphic Imaging 11/02/2024 11:4 0 AM EDT Narrative 11/02/2024 12:36 PM EDT ? [facility] ? [address] ?[place] [address] ?XRay Report ? Signed ? Patient: Gerry Mclaughlin,Rhonda ?MR# ?? : [id number] ? : 1960 ?Acct:[id number] ? Age/Sex: 63 / F ?ADM Date: 04/18/25 ? Loc: HO.HOSX ? Attending Dr: Rubens ANDRE ? Ordering Physician: Rubens Kellogg ?? Date of Service: 11/02/24 ?? Procedure(s): XR Wrist Jah min 3V ?? Accession Number(s): [id number] ? cc: Rubens Kellogg; Zeinab Sykes MD ? EXAMINATION: ?? XR WRIST, BILATERAL ? CLINICAL INFORMATION: ?? M25.531 - Pain in right wrist ? COMPARISON: ?? Left wrist 10/16/2024, bilateral hands and 07/26/2022. ? TECHNIQUE: ?? PA, lateral, oblique, and scaphoid views of the the bilateral wrists. ? FINDINGS: ?? RIGHT WRIST: ?? No fracture, dislocation, or suspicious bone lesion. ?? Normal carpal alignment. No erosions evident. ?? There is mild chondrocalcinosis of the TFCC. ?? Moderate osteoarthrosis of the first CMC joint. Joint spaces otherwise ?? preserved. ? Normal soft tissues. ? LEFT WRIST: ?? No fracture, dislocation, or suspicious bone lesion. ?? Normal carpal alignment. No erosions evident. ?? Moderate osteoarthrosis of the first CMC joint. Joint spaces otherwise ?? preserved. ? Normal soft tissues. ? XR/XR Wrist Jah min 3V ?? IMPRESSION: ?? 1. No acute bony abnormalities of either wrist. ?? 2. 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 ?? 3. Subtle chondrocalcinosis of the TFCC right wrist. ? Electronically signed by: ??Jose Lagunas MD ??11/02/2024 12:32 PM EDT RP ? Dictated By: ?Jose Lagunas MD ? Signed By: ?<Electronically signed by Jose Lagunas MD in OV> ?11/02/24 1232 ? DD/ 1140 ? TD/TT: 11/02/24 1148 ? Fire Support Specialist: ? Procedure Note Carolina Hernandez - 11/02/2024 [facility] [address] [place] [address] [address] DANIEL Garrison [address] XRay Report Signed Patient: Karla Fernández# : [id number] : 1960Acct:[id number] Age/Sex: 63 / FADM Date: 11/02/24 Loc: [facility] Attending Dr: Rubens ANDRE Ordering Physician: Rubens Kellogg Date of Service: 11/02/24 Procedure(s): XR Wrist Jah min 3V Accession Number(s): [id number] cc: Rubens Kellogg; Zeinab Sykes MD EXAMINATION: XR WRIST, BILATERAL CLINICAL INFORMATION: M25.531 - Pain in right wrist COMPARISON: Left wrist 10/16/2024, bilateral hands and 07/26/2022. TECHNIQUE: PA, lateral, oblique, and scaphoid views of the the bilateral wrists. FINDINGS: RIGHT WRIST: No fracture, dislocation, or suspicious bone lesion. Normal carpal alignment. No erosions evident. There is mild chondrocalcinosis of the TFCC. Moderate osteoarthrosis of the first CMC joint. Joint spaces otherwise preserved. Normal soft tissues. LEFT WRIST: No fracture, dislocation, or suspicious bone lesion. Normal carpal alignment. No erosions evident. Moderate osteoarthrosis of the first CMC joint. Joint spaces otherwise preserved. Normal soft tissues. XR/XR Wrist Jah min 3V IMPRESSION: 1. No acute bony abnormalities of either wrist. 2. 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 3. Subtle chondrocalcinosis of the TFCC right wrist. Electronically signed by: Jose Lagunas MD 11/02/2024 12:32 PM EDT Dictated By: Jose Lagunas MD Signed By: <Electronically signed by Jose Lagunas MD in OV> 11/02/24 1232 DD/ 1140 TD/TT: 11/02/24 1148 Fire Support Specialist: [facility] External Provider IMG XR PROCEDURES Edited Result - Final * POCT DIDIER-14 Urine Drug Screen (10/23/2024 1:48 PM EDT) Only the most recent of2 resultswithin the time period is included. Oxycodone Screen, Urine Positive Urine Urine specimen obtained by clean catch procedure / Unknown 10/23/2024 1:48 PM EDT Narrative Jasmyn Menjivar RN - 10/23/2024 1:48 PM EDT .UTOX cup Lot#[id number] Exp. 03/06/26 Internal Pass Control us Alma Jha RECONCILIATION ACCOUNTANT POINT OF CARE TEST ENTER/EDIT ORDERABLES Final Result * CT Abdomen Pelvis w/ Contrast (10/19/2024 4:13 PM EDT) Anatomical Region Laterality Modality Body, Pelvis, Abdomen Computed T omography 10/19/2024 4:13 PM EDT Narrative 10/19/2024 4:14 PM EDT ? [facility] ?[address] ?[place] [address] ? CT Scan Report ? Signed ? Patient: Rhonda Fernández ?MR# ?? : [id number] ? : 1960 ?Acct:[id number] ? Age/Sex: 63 / F ?ADM Date: 10/18/24 ? Loc: HO.CT ? Attending Dr: Nolberto Quigley MD ? Ordering Physician: Nolberto Quigley MD ?? Date of Service: 10/18/24 ?? Procedure(s): CT abdomen pelvis w IV con ?? Accession Number(s): [id number] ? cc: Zeinab Sykes MD; Nolberto Quigley MD ? Report Number: ?? [id number]: Total DLP = ??538.00 mGy-cm ? CLINICAL [...] ? DD/ 12 ? TD/TT: 10/19/241612 ? Fire Support Specialist: ? Procedure Note Donotyolieter, Image - 10/19/[address] [place] [address] [address] Scan Report Signed Patient: Karla Fernández# : [id number] : 1960Acct:[id number] Age/Sex: 63 / FADM Date: 10/18/24 Loc: HO.CT Attending Dr: Nolberto Quigley MD Ordering Physician: Nolberto Quigley MD Date of Service: 10/18/24 Procedure(s): CT abdomen pelvis w IV con Accession Number(s): [id number] cc: Zeinab Sykes MD; Nolberto Quigley MD Report Number: [id number]: Total DLP = 538.00 mGy-cm CLINICAL HISTORY: [...] 10/19/24 1614 DD/ 1613 TD/TT: 10/19/24 1613 Fire Support Specialist: [facility] External Provider IMG CT PROCEDURES Final Result * XR Wrist 3+ Views Left (10/16/2024 5:26 PM EDT) Anatomical Region Laterality Modality Upper Extremities, Wrist Left Radiogr aphic Imaging 10/16/2024 5:26 PM EDT Narrative 10/16/2024 5:28 PM EDT ? [place] [facility] ?[address] ?[place] [address] ?XRay Report ? Signed ? Patient: Gerry Mclaughlin,Rhonda ?MR# ?? : [id number] ? : 1960 ?Acct:[id number] ? Age/Sex: 63 / F ?ADM Date: 10/16/24 ? Loc: HO.ED ? Attending Dr: ? Ordering Physician: Lanette Laura PA-C ?? Date of Service: 10/16/24 ?? Procedure(s): XR wrist LT min 3V ?? Accession Number(s): [id number] ? cc: Zeinab Sykes MD; Lanette Laura [...] in OV> ? 10/16/24 1727 ? DD/ 25 ? TD/TT: 10/16/241725 ? Fire Support Specialist: ? Procedure Note Carolina Hernandez - 10/16/2024 [place] [address] XRay Report Signed Patient: Karla Fernández# : [id number] : 1960Acct:[id number] Age/Sex: 63 / FADM Date: 10/16/24 Loc: HO.ED Attending Dr: Ordering Physician: Lanette Laura PA-C Date of Service: 10/16/24 Procedure(s): XR wrist LT min 3V Accession Number(s): [id number] cc: Zeinab Sykes MD; Lanette Laura PA-C [...] 10/16/24 1727 DD/ 172 TD/TT: 10/16/24 172 Fire Support Specialist: [facility] External Provider IMG XR PROCEDURES Final Result * XR Hip left with Pelvis 1 view (10/16/2024 5:24 PM EDT) Anatomical Region Laterality Modality Lower Extremities, Hip Bilateral Radiograp hic Imaging 10/16/2024 5:24 PM EDT Narrative 10/16/2024 5:26 PM EDT ? [facility] ?[address] ?[place] [address] ?XRay Report ? Signed ? Patient: Gerry Mclaughlin,Rhonda ?MR# ?? : [id number] ? : 1960 ?Acct:[id number] ? Age/Sex: 63 / F ?ADM Date: 10/16/24 ? Loc: HO.ED ? Attending Dr: ? Ordering Physician: Lanette Luara PA-C ?? Date of Service: 10/16/24 ?? Procedure(s): XR hip LT w PEL1V ?? Accession Number(s): [id number] ? cc: Zeinab Sykes MD; Lanette Laura [...] DD/ 1724 ? TD/TT: 10/16/24 1724 ? Fire Support Specialist: ? Procedure Note Carolina Hernandez - 10/16/[address] [place] [address] XRay Report Signed Patient: Spenser FernándezR# : [id number] : 1960Acct:[id number] Age/Sex: 63 / FADM Date: 10/16/24 Loc: HO.ED Attending Dr: Ordering Physician: Lanette Laura PA-C Date of Service: 10/16/24 Procedure(s): XR hip LT w PEL1V Accession Number(s): [id number] cc: Zeinab Sykes MD; Lanette Laura PA-C [...] 10/16/24 1725 DD/ 1724 TD/TT: 10/16/24 1724 Fire Support Specialist: [facility] External Provider IMG XR PROCEDURES Final Result * XR Elbow 3+ Views Left (10/16/2024 5:23 PM EDT) Anatomical Region Laterality Modality Upper Extremities, Elbow Left Radiogr aphic Imaging 10/16/2024 5:23 PM EDT Narrative 10/16/2024 5:25 PM EDT ? [facility] ?[address] ?[place] [address] ?XRay Report ? Signed ? Patient: Rhonda Fernández ?MR# ?? : [id number] ? : 1960 ?Acct:[id number] ? Age/Sex: 63 / F ?ADM Date: 04/01/25 ? Loc: HO.ED ? Attending Dr: ? Ordering Physician: Lanette Laura PA-C ?? Date of Service: 10/16/24 ?? Procedure(s): XR elbow LT min 3V ?? Accession Number(s): [id number] ? cc: Zeinab Sykes MD; Lanette Laura [...] MD in OV> ? 10/16/244 ? DD/ ? TD/TT: 10/16/24 1723 ? Fire Support Specialist: ? Procedure Note Donphilipsaludagustinter, Image - 10/16/2024 [place] [address] XRay Report Signed Patient: Karla Fernández# : [id number] : 1960Acct:[id number] Age/Sex: 63 / FADM Date: 10/16/24 Loc: HO.ED Attending Dr: Ordering Physician: Lanette Laura PA-C Date of Service: 10/16/24 Procedure(s): XR elbow LT min 3V Accession Number(s): [id number] cc: Zeinab Sykes MD; Lanette Laura PA-C [...] in OV> 10/16/241723 DD/ 22 TD/TT: 10/16/241722 Fire Support Specialist: [facility] External Provider IMG XR PROCEDURES Final Result * CT Cervical Spine w/o Contrast (10/16/2024 5:18 PM EDT) Anatomical Region Laterality Modality Spine, C-spine Computed Tomogra phy 10/16/2024 5:18 PM EDT Narrative 10/16/2024 5:19 PM EDT ? [facility] ?[address] ?[place] [address] ? CT Scan Report ? Signed ? Patient: Geryr Mclaughlin,Rhonda ?MR# ?? : [id number] ? : 1960 ?Acct:[id number] ? Age/Sex: 63 / F ?ADM Date: 10/16/24 ? Loc: HO.ED ? Attending Dr: ? Ordering Physician: Lanette Laura PA-C ?? Date of Service: 10/16/24 ?? Procedure(s): CT cervical spine wo IV con ?? Accession Number(s): [id number] ? cc: Zeinab Sykes MD; Lanette Laura PA-C ? Report Number: ?? [id number]: Total DLP = ??605.00 mGy-cm ? CLINICAL [...] DD/ 1718 ? TD/TT: 10/16/24 1718 ? Fire Support Specialist: ? Procedure Note Carolina Hernandez - 10/16/2024 [facility] [address] [place] [address] CT Scan Report Signed Patient: Karla Fernández# : [id number] : 1960Acct:[id number] Age/Sex: 63 / FADM Date: 10/16/24 Loc: HO.ED Attending Dr: Ordering Physician: Lanette Laura PA-C Date of Service: 10/16/24 Procedure(s): CT cervical spine wo IV con Accession Number(s): [id number] cc: Zeinab Sykes MD; Lanette Laura PA-C Report Number: [id number]: Total DLP = 605.00 mGy-cm CLINICAL HISTORY: [...] in OV> 10/16/241718 DD/ 17 TD/TT: 10/16/241717 Fire Support Specialist: Result [facility] External Provider IMG CT PROCEDURES Final Result * (ABNORMAL) POCT HGB A1C (10/09/2024 12:03 PM EDT) Hemoglobin A1C 6.8(A) 4.0 - 6.0 % QC Media Lot # [id number] Lot# Expiration Date 120,526 Blood 10/09/2024 12:0 3 PM EDT Zeinab Sykes MD POINT OF CARE TEST ENTER /EDIT ORDERABLES Final Result * POCT Glucose (10/09/2024 11:58 AM EDT) Glucose Blood, POC 200 60 - 200 mg/dL QC Media Lot # [id number] Lot# Expiration Date 101,425 Blood Capillary blood specimen / Unknown 10/09/2024 11:58 AM EDT Zeinab Sykes MD POINT OF CARE TEST ENTER /EDIT ORDERABLES Final Result * Creatinine, Serum (09/18/2024 3:57 PM EST) Creatinine, Serum 1.01 0.5 - 1.4 mg/dL [facility] Estimated Glomerular Filt Rate 55 [facility] Comment:Chronic Kidney Disea se: Estimated GFR < 60 mL/min/1.29e5Dbydcr Kidney Disease: Estimated GFR < 15 mL/min/1.73m2 09/18/2024 3:57 PM EST 09/18/2024 3:57 PM EST Generic External Data Provider LAB BLOOD ORDERAB LES Final Result Performing Organization Address [facility]/ZIP Co de Phone Number [facility] [address] [place] [phone] * BUN (Blood Urea Nitrogen) (09/18/2024 3:57 PM EST) Urea Nitrogen (BUN) 13 9 - 16 mg/dL [facility] 09/18/2024 3:57 PM EST 09/18/2024 3:57 PM EST Generic External Data Provider LAB BLOOD ORDERAB LES Final Result Performing Organization Address City/[facility] Co de Phone Number [facility] [address] [place] [phone] * Polysomnography (09/11/2024) us Zeinab Sykes MD [facility] ORDERABLES Final Result * Pap Smear (06/01/2024 2:43 PM EST) 06/01/2024 2:43 PM EST 06/04/2024 9:25 AM EST Narrative [facility] - 06/20/2024 7:51 AM EST ----- ------- Name: Rhonda Fernández ? Age/Sex: 63/F ? : 1960 Unit#: [id number] ?? Attend Dr: Aisha Mcclain CNM ?Re06/01/24 ?Status: DEP REF ? Location: HO.LNP ?Disch: ? ----- ------- SPEC : [id number] ?RECD: 06/04/24 ? STATUS: ??SOUT ? REQ NUM: [id number] ? DARWIN: 06/01/24-1442 ? SUBM DR: Aisha Mcclain CNM ? ENTERED: ??06/04/24-1002 ?SP TYPE: Pap Smr ?OTHR : Zeinab Sykes MD ? ORDERED: ??Pap Smear [...] Copies To: ?? Zeinab Sykes MD ?? [facility] ?? [address] [facility] ?? [place] [address] ?? [phone] ?? Aisha Mcclain CNM ?? [facility] ?? [address] [place] [address] [address] ?? [place] [address] ?? [phone] ----- ------- Signed (signature on file) INDERJIT Bloom (ASCP) 06/20/24 0751 ? ----- ------- ? END OF REPORT ? Generic External Data Provider LAB CYTOLOGY ORDE RABLES Final Result Performing Organization Address [facility] Co de Phone Number [facility] [address] [place] [address] [phone] * (ABNORMAL) Lipid Panel with Reflex to Direct LDL (01/06/2024 12:38 PM EDT) Triglycerides 91 <150 mg/dL [facility] Comment:Desirable Triglyceri de: less than 150 mg/dLBorderline High Triglyceride 150-199 mg/dLHigh Triglyceride: 200-499 mg/dLVery High Triglyceride: greater than or equal to 5OO mg/dL Cholesterol 211(H) <200 mg/dL [facility] Comment:Desirable Cholestero l: less than 200 mg/dLBorderline High Cholesterol: 200-239 mg/dLHigh Cholesterol: greater than 239 mg/dL LDL Cholesterol Calculated 132(H) <100 mg/dL [facility] Comment:Desirable LDL: less than 100 mg/dLNear Optimal/Above Optimal LDL: 110- 129 mg/dLBorderline High LDL: 130-159 mg/dLHigh LDL: 160-189 mg/dLVery High LDL: greater than or equal to 190 mg/dL HDL Cholesterol 61 >40 mg/dL [facility] Comment:Desirable HDL: great er than 40 mg/dL Note: This HDL assay may give artificially low results in patients with liver disease. Blood 01/06/2024 12:3 8 PM EDT 01/06/2024 4:21 PM EDT Zeinab Sykes MD LAB BLOOD ORDERABLES Fin al Result Performing Organization Address [facility] Co de Phone Number [facility] [address] [place] [address] [phone] * Hepatitis Panel, General (01/06/2024 12:38 PM EDT) Hepatitis A IgM Nonreactive Nonreactive [facility] Comment:IgM antibodies to GUERIN V not detected; does not exclude earlyacute or recovered HAV infection. ~Hepatitis B Surface Antibody REACTIVE Nonreactive [facility] Comment:REACTIVE: > 11.99 mI U/mL Hepatitis B Core Antibody Nonreactive Nonreactive [facility] Hepatitis C Antibody Nonreactive Nonreactive [facility] Comment:Antibodies to HCV no t detected; does not exclude early acuteHCV infection. Hepatitis B Surface Ag Negative Negative [facility] Blood 01/06/2024 12:3 8 PM EDT 01/06/2024 4:21 PM EDT us Zeinab Sykes MD LAB BLOOD ORDERABLES Fin al Result [facility] [address] [place] [phone] * Mammography Report 1 (03/15/2022 5:00 PM EDT) Anatomical Region Laterality Modality Breast Bilateral Mammography 03/15/2022 5:00 PM EDT Narrative 03/16/2022 8:33 AM EDT Refer to the Notes tab for result details [facility] Procedure: Mammography Report 1 Procedure Note ProviderParag MD - 10/10/2022 Refer to the Notes tab for result details [facility] Procedure: Mammography Report 1 us Evelyn Raegan Baltazar RECONCILIATION ACCOUNTANT IMG BI PROCEDURES Final Re sult * ALBUMIN, RANDOM URINE W/CREATININE (03/08/2022 3:04 PM EDT) Microalbumin Urine 1.2 See Note: mg/dL [facility] Comment: Reference Range: ?? Reference [...] Creatinine, Urine 244 20 - 275 mg/dL [facility] 03/08/2022 3:04 PM EDT Rebekah Guevara DIESEL POWER MECHANIC LAB URINE ORDERABLES Final Res ult Performing Organization Address [facility] Co de Phone Number [facility] [address] * Hm Colonoscopy (11/05/2020 11:36 AM EDT) Historical Provider MD HEALTH MAINTENANCE Final Result * HPV mRNA E6/E7 (07/07/2020 12:00 AM EST) HPV nRNA E6/E7 Not Detected Not Detected [facility] Comment: This test was performed using the APTIMA HPV Assay ([employer] This assay detects E6/E7 viral messenger RNA (mRNA) from 14 high-risk HPV types (16,18,31,33,35,39,45,51,52,56,58,59,66,68). ?? The analytical performance characteristics of this assay have been determined by [employer]. The modifications have not been cleared or approved by the FDA. This assay has been validated pursuant to the CLIA regulations and is used for clinical purposes. 07/07/2020 Historical Provider LAB BLOOD ORDERABLES Sera l Result Performing Organization Address [facility] Co de Phone Number [facility] [address] from Last 3 Months or Most Recently Relevant to Health Maintenance Insurance MEDICARE [facility] STANDARD DENTAL-[facility] MEDICAID STAND ADULT Care Teams Gear Milling Machine Set Up Operator Relationship Specialty Start Date End Date Zeinab Sykes MD [address] [place] [address] PCP - General Internal Medicine 01/02/24 Tomeka Martins Environmental Engineering AideCloth Coverer 10/27/23 Tj Caring 11/06/24
--- OUTSIDE RECORDS SUMMARY | 2024-11-21 12:05 | XMS_ITS | Encounter Summary ---
Author Organization [email or web address] Address [address] [facility] 7t [place] [address] Care Team Providers Care Mercantile Agent Name Role Phone Evelyn Ledesma Primary Care Provider [phone] Oralia Aguila MD Primary Care Provider [phone] Zeinab Sykes MD Primary Care Provider + Reason for Visit * Reason Onset Date Comments medical clearance 02/11/2023 Encounter Details Date Type Department Care Team (Late st Contact Info) Description 02/11/2023 Telephone [facility] ADULT DENTAL [address] [place] [address] Asad Shore DDS [address] [place] [address] medical clearance Social History Tobacco Use Types [...] Description 01/04/2025 11:00 AM EDT Office Visit [facility] ADULT DENTAL [address] [place], [place] [phone] Mykel Fabi [address] [place] [address] 01/10/2025 12:00 PM EDT Office Visit [facility] MEDICINE [address] [place] [address] Zeinab Sykes MD [address] [place] [address] 01/22/2025 11:00 AM EDT Office Visit [facility] [address] [place] [address] documented as of this encounter Goals Goal Patient Goal Type Associated Problems Recent Progress Patient-Stated? Author Patient will manage their medication General On track( 023 11:18 AM EDT) No Citlali Armando, PharmD Note: Began medboxes. Goal achieved 11/19/22. Patient graduated from [facility]. documented as of this encounter Visit Diagnoses Not on filedocumented in this encounter Care Teams Mercantile Agent Relationship Specialty Start Date End Date Evelyn Ledesma FNP PCP - General Family Medicine 03/15/22 04/25/23 Oralia Aguila MD [address] [place] [address] PCP - General Family Medicine 04/26/23 01/01/24 Zeianb Sykes MD [address] [place] [address] [phone] PCP - General Internal Medicine 01/02/24 Tomeka Martins [employer] ManagerLaundry Helper 10/27/23 [employer] 11/06/24 documented as of this encounter
--- OUTSIDE RECORDS SUMMARY | 2024-11-21 12:05 | XMS_ITS | Continuity of Care Document ---
Author Organization [facility] Address [address] [place] [address] Phone Care Team Providers Care Director Of Customer Service Name Role Phone Waldo MADDOX FACS RVT Shiraz CHERY Unavailable Unavailable Allergies, Adverse Reactions, Alerts Substance Reaction Status Criticality latex Active No Information Medications Medication Instructions Dosage Effective Dates (start - stop) Status Comments lidocaine-prilocaine 2.5 %-2.5 % topical cream apply 2 hours before procedures for Pain - Active Procedures Procedure Date Office/Outpt E&M Established 15 Mins Oct Duplex Scan-extrem Veins; [facility]/ 23 Endovenous Laser, 1st Vein Endovenous [...] E&M Established 15 Mins [facility], [address] [place] [address] [address] [address]Pradeep [place], [id number], [place] tel:[phone] [facility] Venous insufficiency (chronic) (peripheral) 3 Waldo MADDOX FACS RVT MIRI Rapp. [address] [place] [address], [place], [address], [place]. tel:[phone] Referring Provider: Rebekah Guevara, [address] [place], [address]. tel:[phone] [facility] MD PHILLIPS, [address] [place] [address] [address]Pradeep [place], [id number], [place] tel:[phone] [facility] [place] [facility] [place] Encntr for f/u exam aft trtmt for cond oth than malig neoplmVenous insufficiency (chronic) (peripheral) 3 Waldo MADDOX FACS RVT MIRI Rapp. [address] [place] [address], [place], [address], [place]. tel:[phone] Referring Provider: Rebekah Guevara, [address] [place] [address], [address]. tel:[phone] [facility], [address] [place] [address] [address]Pradeep [place], [id number], [place] tel:[phone] [facility] [place] [facility] [place] Venous insufficiency (chronic) (peripheral) 3 Waldo MADDOX FACS RVT MIRI Rapp. [address] [place] [address], [place], [address], [place]. tel:[phone] Referring Provider: Rebekah Guevara, [address] [place] [address], [address]. tel:[phone] [facility] MD PHILLIPS, [address] [place] [address] [address]Pradeep [place], [id number], [place] tel:[phone] [facility] [place] [facility] [place] Venous insufficiency (chronic) (peripheral) 3 Waldo MADDOX FACS RVT MIRI Rapp. [address] [place] [address], [place] [address], [place], [address], [place]. tel:[phone] Referring Provider: Rebekah Guevara, [address] [place], [address]. tel:[phone] [facility], [address] [place] [address] [address]Pradeep [place], [id number], [place] tel:[phone] [facility] [place] [facility] [place] No Information 3 Waldo Rapp. [address] [facility], [address] [facility], [place], [address], [place]. tel:[phone] Referring Provider: Rebekah Guevara, [address] [place] [address], [address]. tel:[phone] [facility], [address] [place] [address] [address]Pradeep [place], [id number], [place] tel:[phone] [facility] [place] [facility] [place] Encntr for f/u exam aft trtmt for cond oth than malig neoplmVenous insufficiency (chronic) (peripheral) 3 Waldo Rapp. [address] [place] [address], [place] [address], [place], [address], [place]. tel:[phone] Referring Provider: Rebekah Guevara, [address] [place] [address], [address]. 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 [address] [place] [address], [facility] [address], [place], [address], [place]. tel:[phone] Referring Provider: Rebekah Guevara, [address] [place], [address]. tel:[phone] [facility] MD [facility]IPS, [address] [place] [address] [address]Pradeep [place], [id number], [place] tel:[phone] [facility] [place] [facility] [place] Venous insufficiency (chronic) (peripheral) 3 Waldo Rapp. [facility], [address], [place], [address], [place]. [phone] Referring Provider: Rebekah Guevara, [address] [place], [address]. tel:[phone] Family History Family Member Type Diagnosis Age At Onset No Information Payers Payer name Insurance type Covered libertarian ID Authorlitzy funes(s) Medical Assistance DANIEL [id number] Social History Type Description Quantity Date Captured [...]
--- OUTSIDE RECORDS SUMMARY | 2024-11-21 12:05 | XMS_ITS | Encounter Summary ---
Author Organization [employer] Address [address] [facility] 7t [place] [address] Care Team Providers Care Clarifier Name Role Phone Evelyn Ledesma Primary Care Provider [phone] Oralia Aguila MD Primary Care Provider [phone] Zeinab Sykes MD Primary Care Provider + Reason for Visit * Reason Onset Date Comments Referral 02/03/2023 Renewal Encounter Details Date Type Department Care Team (Late st Contact Info) Description 02/03/2023 Telephone [facility] MEDICINE [address] [place] [address] Evelyn Ledesma FNP [address] [place] [address] [place] [address] Referral (Renewal ) Social History Tobacco Use [...] Description 01/04/2025 11:00 AM EDT Office Visit [facility] ADULT DENTAL [address] [place], [place] [phone] Mykel, Fabi [address] [place] [address] 01/10/2025 12:00 PM EDT Office Visit [facility] MEDICINE [address] [place] [address] Zeinab Sykes MD [address] [place] [address] 01/22/2025 11:00 AM EDT Office Visit [facility] MED[facility]INE [address] [place] [address] documented as of this encounter Goals Goal Patient Goal Type Associated Problems Recent Progress Patient-Stated? Author Patient will manage their medication General On track( 023 11:18 AM EDT) Citlali Ocampo, PharmD Note: Began medboxes. Goal achieved 11/19/22. Patient graduated from [facility]. documented as of this encounter Visit Diagnoses Not on filedocumented in this encounter Care Teams Clarifier Relationship Specialty Start Date End Date Evelyn Ledesma FNP PCP - General Family Medicine 03/15/22 04/25/23 Oralia Aguila MD [address] [place] [address] PCP - General Family Medicine 04/26/23 01/01/24 Zeinab Sykes MD [address] [place] [address] PCP - General Internal Medicine 01/02/24 Tomeka Martins Precision Instrument And Tool MakerControl Clerk 10/27/23 [employer] Caring 11/06/24 documented as of this encounter
--- OUTSIDE RECORDS SUMMARY | 2024-11-21 12:05 | XMS_ITS | Encounter Summary ---
Author Organization [employer] Address [address] [facility] 7t [place] [address] Care Team Providers Care Refrigerating Technician Name Role Phone Evelyn Ledesma Primary Care Provider [phone] Oralia Aguila MD Primary Care Provider [phone] Zeinab Sykes MD Primary Care Provider + Encounter Details Date Type Department Care Team (Late Contact Info) Description 10/22/2022 Orders Only [facility] [address] [place] [address] Evelyn Ledesma FNP [address] [facility] [place] [address] Social History Tobacco Use Types Packs/Day Years [...] Description 01/04/2025 11:00 AM EDT Office Visit [facility] ADULT DENTAL [address] [place], [place] [phone] Ruben Hoguearis [address] [place] [address] 01/10/2025 12:00 PM EDT Office Visit [facility] [address] [place] [address] Zeinab Sykes MD [address] [place] [address] 01/22/2025 11:00 AM EDT Office Visit [facility] [address] [place] [address] documented as of this encounter Visit Diagnoses Not on filedocumented in this encounter Care Teams Refrigerating Technician Relationship Specialty Start Date End Date Evelyn Ledesma FNP PCP - General Family Medicine 03/15/22 04/25/23 Oralia Aguila MD [address] [place] [address] PCP - General Family Medicine 04/26/23 01/01/24 Zeinab Sykes MD [address] [place] [address] PCP - General Internal Medicine 01/02/24 Tomeka Martins Manager Of Environmental ServicesIntelligence Operations Specialist 10/27/23 [employer] Caring 11/06/24 documented as of this encounter
--- OUTSIDE RECORDS SUMMARY | 2024-11-21 12:05 | XMS_ITS | Encounter Summary ---
Author Organization [employer] Address [address] [facility] 7t [place] [address] Care Team Providers Care Men'S Golf Coach Name Role Phone Zeinab Sykes MD Primary Care Provider + Reason for Visit * Reason Comments Med Refill Encounter Details Date Type Department Care Team ([facility] st Contact Info) Description 05/04/2024 Refill [facility] [address] [place], [place] [phone] Zeinab Sykes MD [address] [place] [address] Other intervertebral disc displacement, lumbar region Social [...] Description 01/04/2025 11:00 AM EDT Office Visit [facility] ADULT DENTAL [address] [place] [address] Mykel, Fabi [address] [place] [address] 01/10/2025 12:00 PM EDT Office Visit [facility] [address] [place] [address] Zeinab Sykes MD [address] [place] [address] 01/22/2025 11:00 AM EDT Office Visit [facility] [address] [place] [address] documented as of this encounter Goals Goal [...] documented as of this encounter Care Teams Men'S Golf Coach Relationship Specialty Start Date End Date Zeinab Sykes MD [address] [place] [address] PCP - General Internal Medicine 01/02/24 Tomeka Martins Office Technology ProfessorChute Puller 10/27/23 [employer] 11/06/24 documented as of this encounter
--- OUTSIDE RECORDS SUMMARY | 2024-11-21 12:05 | XMS_ITS | Encounter Summary ---
Author Organization [employer] Address [address] [facility] 7t [place] [address] Care Team Providers Care Glass Cylinder Flanger Name Role Phone Evelyn Ledesma Primary Care Provider [phone] Oralia Aguila MD Primary Care Provider [phone] Zeinab Sykes MD Primary Care Provider + Reason for Visit * Reason Onset Date Comments Prior Authorization 12/28/2022 Encounter Details Date Type Department Care Team (Late st Contact Info) Description 12/28/2022 Telephone [facility] MEDICINE [address] [place] [address] Evelyn Ledesma FNP [address] [place] [address] Dept [place] [address] Prior Authorization Social History Tobacco Use Types [...] AM EDT T/C placed to pt via [employer] Zeinab #[id number]. Advised of message from pcp re: lab [...] all other NSAIDS. Do you have a cafeteria monitor yet? If not, your PCP would like [...] Nolvia Alcazar - 12/28/2022 10:18 AM EDT TC luis m Emery from [employer] requesting XL pull ups and disposable under pads . States faxed request couple days ago and have not gotten a response . Informs paper work 12/29/22. Please call to clarify at phone # [phone] . documented in this encounter Plan of Treatment Upcoming Encounters Date Type Department Care Team (Late st Contact Info) Description 01/04/2025 11:00 AM EDT Office Visit [facility] ADULT DENTAL [address] [place], [place] [phone] Fabi Hogue [address] [place] [address] 01/10/2025 12:00 PM EDT Office Visit [address] [phone] Zeinab Sykes MD [address] [place] [address] [phone] 01/22/2025 11:00 AM EDT Office Visit [address] [address] documented as of this encounter Goals Goal Patient Goal Type Associated Problems Recent Progress Patient-Stated? Author Patient will manage their medication General On track( 023 11:18 AM EDT) Citlali Ocampo, Anoop Note: Began medboxes. Goal achieved 11/19/22. Patient graduated from [facility]. documented as of this encounter Visit Diagnoses Not on filedocumented in this encounter Care Teams Glass Cylinder Flanger Relationship Specialty Start Date End Date Evelyn Ledesma FNP PCP - General Family Medicine 03/15/22 04/25/23 Oralia Aguila MD [address] [place] [address] [phone] PCP - General Family Medicine 04/26/23 01/01/24 Zeinab Sykes MD [address] [place] [address] PCP - General Internal Medicine 01/02/24 Tomeka Martins Adolescent Medicine SpecialistSupervisor Gluing 10/27/23 [employer] 11/06/24 documented as of this encounter
--- OUTSIDE RECORDS SUMMARY | 2024-11-21 12:05 | XMS_ITS | Clinical Summary ---
Author Organization [facility] Address [address] [place] [address] Care Team Providers Care Tube Washer Name Role Phone Meryl Montes Primary Care Provider Surgical History Surgery Date Site/Laterality Comments BREAST REDUCTION PROCEDURE: [place] BREAST REDUCTION BACK SURGERY PROCEDURE: HISTORICAL BACK SURGERY; COMMENT: L4-5 rt L5-S1 decomp 05/26/18 Medical History Medical History Date Comments Asthma DX:Asthma Diabetes mellitus type 2, co ntrolled, with complications (CMS/HCC V24, CMS/HCC V28) DX:Diabetes mellitus type 2, controlled, with complications ([facility]) Essential hypertension DX:Essent ial hypertension Depressive disorder [...] Cancer Screening: Colonoscopy 06/27/2022 Depression Screening 06/27/2022 Hepatitis C Screening 06/27/2022 Osteoporosis Screening (Bone Density Screening) 06/27/2022 Social Influencers of Health Screening 06/27/2022 COVID-19 Vaccine (1 - 2023-2 5 season) 2024 Falls Risk Assessment 11/05/2024 Influenza Vaccine (Season Ended) 2025 RSV Immunization [...] age to complete this topic Care Teams Tube Washer Relationship Specialty Start Date End Date Meryl Montes [address] [place] [phone] PCP - General 05/07/22
--- OUTSIDE RECORDS SUMMARY | 2024-11-21 12:05 | XMS_ITS | Encounter Summary ---
Author Organization [employer] Address [address] [facility] 7t [place] [address] Care Team Providers Care Ld Teacher Name Role Phone Evelyn Ledesma Primary Care Provider [phone] Oralia Aguila MD Primary Care Provider [phone] Zeinab Sykes MD Primary Care Provider + Reason for Visit * Reason Onset Date Comments case from lab 11/04/2022 Encounter Details Date Type Department Care Team (Late st Contact Info) Description 11/04/2022 Telephone [facility] ADULT DENTAL [address] [place] [address] Asad Shore DDS [address] [place] [address] case from lab Social History Tobacco Use [...] Description 01/04/2025 11:00 AM EDT Office Visit [facility] ADULT DENTAL [address] [place] [address] Fabi Hogue [address] [place] [address] 01/10/2025 12:00 PM EDT Office Visit [facility] MEDICINE [address] [place] [address] Zeinab Sykes MD [address] [place] [address] 01/22/2025 11:00 AM EDT Office Visit [facility] MEDICINE [address] [place] [address] documented as of this encounter Visit Diagnoses Not on filedocumented in this encounter Care Teams Ld Teacher Relationship Specialty Start Date End Date Evelyn Ledesma FNP PCP - General Family Medicine 03/15/22 04/25/23 Oralia Aguila MD [address] [place] [address] PCP - General Family Medicine 04/26/23 01/01/24 Zeinab Sykes MD [address] [place] [address] PCP - General Internal Medicine 01/02/24 Tomeka Martins Sand Control WorkerHoop Punch And Coiler Operator 10/27/23 [employer] 11/06/24 documented as of this encounter
--- OUTSIDE RECORDS SUMMARY | 2024-11-21 12:06 | XMS_ITS | Encounter Summary ---
Author Organization [facility] Address 75 [facility] 7t [place] [address] Care Team Providers Care Beef Tagger Name Role Phone Oralia Aguila MD Primary Care Provider [phone] Zeinab Sykes MD Primary Care Provider + Reason for Visit * Reason Comments Med Refill Encounter Details Date Type Department Care Team (Late st Contact Info) Description 07/06/2023 Refill [facility] [address] [place] [address] Bryn Franklin MD [address] [place], [place] [phone] Social History Tobacco Use Types Packs/Day Years [...] Description 01/04/2025 11:00 AM EDT Office Visit [facility] [address] [place] [address] Fabi Hogue 230 [place] [address] 01/10/2025 12:00 PM EDT Office Visit [facility] [address] [place] [address] Zeinab Sykes MD [address] [place] [address] 01/22/2025 11:00 AM EDT Office Visit [address] [address] documented as of this encounter Goals Goal Patient Goal Type Associated Problems Recent Progress Patient-Stated? Author Patient will manage their medication General On track( 023 11:18 AM EDT) Citlali Ocampo, Anoop Note: Began medboxes. Goal achieved 11/19/22. Patient graduated from [facility]. documented as of this encounter Visit Diagnoses Not on filedocumented in this encounter Care Teams Beef Tagger Relationship Specialty Start Date End Date Oralia Aguila MD [address] [place] [address] PCP - General Family Medicine 04/26/23 01/01/24 Zeinab Sykes MD [address] [place] [address] PCP - General Internal Medicine 01/02/24 Tomeka Martins Sample GrinderIncinerator Plant Supervisor 10/27/23 [employer] 11/06/24 documented as of this encounter
--- OUTSIDE RECORDS SUMMARY | 2024-11-21 12:06 | XMS_ITS | Encounter Summary ---
Author Organization [employer] [facility] Address 75 [facility] 7t [place] [address] Care Team Providers Care Director Of Business Applications Name Role Phone Oraila Aguila MD Primary Care Provider [phone] Zeinab Sykes MD Primary Care Provider + Reason for Visit * Reason Comments Med Refill Encounter Details Date Type Department Care Team (Late st Contact Info) Description 09/21/[address] [facility] 230 [place], [place] [phone] Oralia Aguila MD 230 [place], [place] [phone] Neuropathy Social History Tobacco Use Types Packs/Day [...] Description 01/04/2025 11:00 AM EDT Office Visit [facility] ADULT DENTAL [address] [place], [place] [phone] Fabi Hogue [address] [place] [address] 01/10/2025 12:00 PM EDT Office Visit [facility] [address] [place] [address] Zeinab Sykes MD [address] [place] [address] 01/22/2025 11:00 AM EDT Office Visit [address] [address] documented as of this encounter Goals Goal [...] site documented in this encounter Care Teams Director Of Business Applications Relationship Specialty Start Date End Date Oralia Aguila MD [address] [place] [address] PCP - General Family Medicine 04/26/23 01/01/24 Zeinab Sykes MD [address] [place] [address] PCP - General Internal Medicine 01/02/24 Tomeka Martins Buyer GrainBarber Instructor 10/27/23 [employer] 11/06/24 documented as of this encounter
--- OUTSIDE RECORDS SUMMARY | 2024-11-21 12:06 | XMS_ITS | Encounter Summary ---
Author Organization [employer] Address 75 [facility] 7t [place] [address] Care Team Providers Care Inbound Sales Consultant Name Role Phone Oralia Aguila MD Primary Care Provider [phone] Zeinab Sykes MD Primary Care Provider + Reason for Visit * Reason Onset Date Comments antibiotics pre med 07/19/2023 Encounter Details Date Type Department Care Team (Late st Contact Info) Description 07/19/2023 Telephone [facility] [address] [place] [address] AttStefany terry, DDS [address] [place] [address] antibiotics pre med Social History Tobacco Use [...] Description 01/04/2025 11:00 AM EDT Office Visit [facility] 230 [place], [place] [phone] Mykel, Fabi [address] [place] [address] 01/10/2025 12:00 PM EDT Office Visit [facility] MEDICINE [address] [place] [address] Zeinab Sykes MD 230 [place] [address] 01/22/2025 11:00 AM EDT Office Visit [facility]INE [address] [place] [address] [phone] documented as of this encounter Goals Goal Patient Goal Type Associated Problems Recent Progress Patient-Stated? Author Patient will manage their medication General On track( 023 11:18 AM EDT) No Citlali Armando, PharmD Note: Began medboxes. Goal achieved 11/19/22. Patient graduated from [facility]. documented as of this encounter Visit Diagnoses Not on filedocumented in this encounter Care Teams Inbound Sales Consultant Relationship Specialty Start Date End Date Oralia Aguila MD [address] [place] [address] [phone] PCP - General Family Medicine 04/26/23 01/01/24 Zeinab Sykes MD [address] [place] [address] [phone] PCP - General Internal Medicine 01/02/24 Tomeka Martins Copy ChiefNewspaper Press Operator Apprentice 10/27/23 El[facility] 11/06/24 documented as of this encounter
--- OUTSIDE RECORDS SUMMARY | 2024-11-21 12:06 | XMS_ITS | Encounter Summary ---
Author Organization [employer] [employer] [facility] Address [address] [place] [address] Care Team Providers Care Tinware Lithograph Press Operator Name Role Phone Evelyn Ledesma Primary Care Provider [phone] Oralia Aguila MD Primary Care Provider [phone] Zeinab Sykes MD Primary Care Provider + Reason for Visit * Reason Comments Med Refill Encounter Details Date Type Department Care Team (Late st Contact Info) Description 02/05/2023 Refill [facility] 230 [place] [address] Evelyn Ledesma FNP [address] [place] [address] Dept [place] [address] Neuropathy Social History Tobacco Use Types Packs/Day [...] Description 01/04/2025 11:00 AM EDT Office Visit [facility] 230 [place] [address] Fabi Hogue 230 [place] [address] 01/10/2025 12:00 PM EDT Office Visit [address] [address] Zeinab Sykes MD [address] [place] [address] 01/22/2025 11:00 AM EDT Office Visit [address] [phone] documented as of this encounter Goals Goal Patient Goal Type Associated Problems Recent Progress Patient-Stated? Author Patient will manage their medication General On track( 023 11:18 AM EDT) Citlali Ocampo, PharmD Note: Began medboxes. Goal achieved 11/19/22. Patient graduated from [facility]. documented as of this encounter Visit Diagnoses Diagnosis Neuropathy Mononeuritis of unspecified site documented in this encounter Care Teams Tinware Lithograph Press Operator Relationship Specialty Start Date End Date Evelyn Ledesma FNP PCP - General Family Medicine 03/15/22 04/25/23 Oralia Aguila MD [address] [place] [address] PCP - General Family Medicine 04/26/23 01/01/24 Zeinab Sykes MD [address] [place] [address] PCP - General Internal Medicine 01/02/24 Tomeka Martins Telephone Information SupervisorUtilization Management Manager 10/27/23 [employer] 11/06/24 documented as of this encounter
--- OUTSIDE RECORDS SUMMARY | 2024-11-21 12:06 | XMS_ITS | Encounter Summary ---
Author Organization [facility] Address 75 [facility] 7t [place] [address] Care Team Providers Care Cyanide Pot Tender Name Role Phone Evelyn Ledesma Raegan EDWARDS Primary Care Provider [phone] Oralia Aguila MD Primary Care Provider [phone] Zeinab Sykes MD Primary Care Provider + Encounter Details Date Type Department Care Team (Latest Contact Info) Description 10/30/2020 Abstract [facility] CONVERSIONS Dental, Provider, DDS Social History Tobacco [...] Description 01/04/2025 11:00 AM EDT Office Visit [facility]ULT [facility] 230 [place], [place] [phone] Fabi Hogue [address] [place], [place] [phone] 01/10/2025 12:00 PM EDT Office Visit [facility] MEDICINE 230 [place], [place] [phone] Zeinab Sykes MD 230 [place], [place] [phone] 01/22/2025 11:00 AM EDT Office Visit [facility] 230 [place] [address] documented as of this encounter Visit Diagnoses Not on filedocumented in this encounter Care Teams Cyanide Pot Tender Relationship Specialty Start Date End Date Evelyn Ledesma FNP PCP - General Family Medicine 03/15/22 04/25/23 Oralia Aguila MD [address] [place] [address] PCP - General Family Medicine 04/26/23 01/01/24 Zeinab Sykes MD [address] [place] [address] PCP - General Internal Medicine 01/02/24 Tomeka Martins Substation ElectricianNursing Unit Manager 10/27/23 [employer] 11/06/24 documented as of this encounter
--- OUTSIDE RECORDS SUMMARY | 2024-11-21 12:06 | XMS_ITS | Encounter Summary ---
Author Organization [employer] [facility] Address 75 [facility] 7t [place] [address] Care Team Providers Care Plastic Welder Name Role Phone Oralia Aguila MD Primary Care Provider [phone] Zeinab Sykes MD Primary Care Provider + Reason for Visit * Reason Comments Med Refill Encounter Details Date Type Department Care Team (Late Contact Info) Description 08/09/2023 Refill [facility] 230 [place] [address] Oralia Aguila MD 230 [place], [place] [phone] Other intervertebral disc displacement, lumbar region Social [...] Description 01/04/2025 11:00 AM EDT Office Visit [facility] ADULT D[facility] 230 [place] [address] Fabi Hogue 230 [place] [address] 01/10/2025 12:00 PM EDT Office Visit [address] [address] Zeinab Sykes MD [address] [place] [address] 01/22/2025 11:00 AM EDT Office Visit [address] [address] documented as of this encounter Goals Goal Patient Goal Type Associated Problems Recent Progress Patient-Stated? Author Patient will manage their medication General On track( 023 11:18 AM EDT) Citlali Ocampo, PharmD Note: Began medboxes. Goal achieved 11/19/22. Patient graduated from [facility]. documented as of this encounter Visit Diagnoses Diagnosis Other intervertebral disc displacement, lumbar region documented in this encounter Care Teams Plastic Welder Relationship Specialty Start Date End Date Oralia Aguila MD [address] [place] [address] PCP - General Family Medicine 04/26/23 01/01/24 Zeinab Sykes MD [address] [place] [address] PCP - General Internal Medicine 01/02/24 Tomeka Martins Accounting Systems ManagerHospitality Associate 10/27/23 [facility] 11/06/24 documented as of this encounter
--- OUTSIDE RECORDS SUMMARY | 2024-11-21 12:06 | XMS_ITS | Encounter Summary ---
Author Organization [employer] Address 75 [facility] 7t [place] [address] Care Team Providers Care Dulite Machine Bluer Name Role Phone Zeinab Sykes MD Primary Care Provider + Reason for Visit * Reason Onset Date Comments Med Refill 07/16/2024 Encounter Details Date Type Department Care Team ([facility] st Contact Info) Description 07/16/2024 Telephone [facility] 230 [place], [place] [phone] Zeinab Sykes MD [address] [place] [address] Med Refill Social History Tobacco Use Types [...] 10 MG capsule To be sent to: [facility] pharmacy documented in this encounter Plan of Treatment Upcoming Encounters Date Type Department Care Team (Late st Contact Info) Description 01/04/2025 11:00 AM EDT Office Visit [facility] ADULT DENTAL 230 [place] [address] Fabi Hogue 230 [place] [address] 01/10/2025 12:00 PM EDT Office Visit [facility] 230 [place] [address] Zeinab Sykes MD [address] [place] [address] 01/22/2025 11:00 AM EDT Office Visit [facility] [address] [place] [address] documented as of this encounter Goals Goal [...] documented as of this encounter Care Teams Dulite Machine Bluer Relationship Specialty Start Date End Date Zeinab Sykes MD [address] [place] [address] PCP - General Internal Medicine 01/02/[address] JudgeCombination Machine Tool Operator 10/27/23 [facility] 11/06/24 documented as of this encounter
--- OUTSIDE RECORDS SUMMARY | 2024-11-21 12:06 | XMS_ITS | Clinical Summary ---
Author Organization [facility], Address [address] [place] [address] [place] [address] Phone Care Team Providers Care Shallot Packer Name Role Phone Evelyn Rodriguez Primary Care [...] this topic Insurance Medicaid [place] Care Teams Shallot Packer Relationship Specialty Start Date End Date Evelyn Rodriguez FNP PCP - General 02/18/23
--- OUTSIDE RECORDS SUMMARY | 2024-11-21 12:06 | XMS_ITS | Encounter Summary ---
Author Organization [employer] Address 75 [facility] 7t [place] [address] Care Team Providers Care Pricing Strategist Name Role Phone Oralia Aguila MD Primary Care Provider [phone] Zeinab Sykes MD Primary Care Provider + Reason for Visit * Reason Onset Date Comments Med Refill 05/05/2023 Encounter Details Date Type Department Care Team (Late st Contact Info) Description 05/05/2023 Refill [facility] 230 [place], [place] [phone] Oralia Aguila MD [address] [place], [place] [phone] Other intervertebral disc displacement, lumbar region Social [...] 5- 325 MG tablet to besent to [facility] - [place], [place] - [address] [facility] documented in this encounter Plan of Treatment Upcoming Encounters Date Type Department Care Team (Late st Contact Info) Description 01/04/2025 11:00 AM EDT Office Visit [facility] ADULT DENTAL 230 [place] [address] Mykel, Fabi [address] [place] [address] 01/10/2025 12:00 PM EDT Office Visit [facility] MED[facility] [address] [place] [address] Zeinab Sykes MD [address] [place] [address] 01/22/2025 11:00 AM EDT Office Visit [facility] [address] [place] [address] documented as of this encounter Goals Goal Patient Goal Type Associated Problems Recent Progress Patient-Stated? Author Patient will manage their medication General On track( 023 11:18 AM EDT) Citlali Ocampo, PharmD Note: Began medboxes. Goal achieved 11/19/22. Patient graduated from [facility]. documented as of this encounter Visit Diagnoses Diagnosis Other intervertebral disc displacement, lumbar region documented in this encounter Care Teams Pricing Strategist Relationship Specialty Start Date End Date Oralia Aguila MD [address] [place] [address] PCP - General Family Medicine 04/26/23 01/01/24 Zeinab Sykes MD [address] [place] [address] PCP - General Internal Medicine 01/02/24 Tomeka Martins Forging Roll OperatorOuter Diameter Technician 10/27/23 [facility] 11/06/24 documented as of this encounter
--- OUTSIDE RECORDS SUMMARY | 2024-11-21 12:06 | XMS_ITS | Encounter Summary ---
Author Organization [employer] [facility] Address 75 [facility] 7t [place] [address] Care Team Providers Care Fitness Sales Associate Name Role Phone Evelyn Ledesma Raegan EDWARDS Primary Care Provider [phone] Oralia Aguila MD Primary Care Provider [phone] Zeinab Sykes MD Primary Care Provider + Encounter Details Date Type Department Care Team (Latest Contact Info) Description 12/21/2018 Abstract [facility] CONVERSIONS Dental, Provider, DDS Social [...] Description 01/04/2025 11:00 AM EDT Office Visit [facility] ADULT DENTAL 230 [place] [address] Ruben Hoguearis 230 [place] [address] 01/10/2025 12:00 PM EDT Office Visit [facility] MEDICINE 230 [place], [place] [phone] Zeinab Sykes MD 230 [place], [place] [phone] 01/22/2025 11:00 AM EDT Office Visit [facility] MEDICINE 230 [place] [address] documented as of this encounter Visit Diagnoses Not on filedocumented in this encounter Care Teams Fitness Sales Associate Relationship Specialty Start Date End Date Evelyn Ledesma FNP PCP - General Family Medicine 03/15/22 04/25/23 Oralia Aguila MD 230 [place] [address] PCP - General Family Medicine 04/26/23 01/01/24 Zeinab Sykes MD [address] [place] [address] PCP - General Internal Medicine 01/02/24 Tomeka Martins Box Machine OperatorProfessional Shopper 10/27/23 [facility] 11/06/24 documented as of this encounter
== END 2024-11-21 11:43 | disposition home or self-care (01) ==
LOC: HO.HGI 10:46
PROVIDERS: PCP Internal Medicine; Visit Provider Nurse Practitioner
DX: K58.1 Irritable bowel syndrome with constipation (principal); K59.4 Anal spasm; D12.6 Benign neoplasm of colon, unspecified
CPT/HCPCS: 99214

== ENCOUNTER → 2024-11-21 10:45 | Outpatient (BNVA) | payer MEDICARE, MEDICAID, SELFPAY | PROVIDERS: PCP Internal Medicine; Visit Provider Nurse Practitioner | DX: D12.6 Benign neoplasm of colon, unspecified (principal); K58.1 Irritable bowel syndrome with constipation; K59.4 Anal spasm | CPT/HCPCS: 99212 ==

== ENCOUNTER 2024-12-04 09:55 | Outpatient (REF) | payer MEDICARE, MEDICAID, SELFPAY ==
--- OUTSIDE RECORDS SUMMARY | 2024-12-05 11:17 | XMS_ITS | Encounter Summary ---
Author Organization [facility] Address [address] [place] [address] 7t [place] [address] Care Team Providers Care Coagulator Name Role Phone Evelyn Ledesma Raegan EDWARDS Primary Care Provider [phone] Oralia Agulia MD Primary Care Provider [phone] Zeinab Sykes MD Primary Care Provider + Encounter Details Date Type Department Care Team (Latest Contact Info) Description 10/30/2020 Abstract [facility] CONVERSIONS Dental, Provider, DDS Social History Tobacco [...] Care Team ( st Contact Info) Description 01/04/2025 11:00 AM EDT Office Visit [facility] ADULT D[facility] [address] [place], [place] [phone] Fabi Hogue [address] [place], [place] [phone] 01/10/2025 12:00 PM EDT Office Visit [facility] [address] [place], [place] [phone] Zeinab Sykes MD 230 [place], [place] [phone] 01/22/2025 11:00 AM EDT Office Visit [facility] [address] [place] [address] documented as of this encounter Visit Diagnoses Not on filedocumented in this encounter Care Teams Coagulator Relationship Specialty Start Date End Date Evelyn Ledesma FNP PCP - General Family Medicine 03/15/22 04/25/23 Oralia Aguila MD [address] [place] [address] PCP - General Family Medicine 04/26/23 01/01/24 Zeinab Sykes MD [address] [place] [address] PCP - General Internal Medicine 01/02/24 Tomeka Martins Machine Adjuster HelperHead Buyer Tobacco 10/27/23 [facility] 11/06/24 documented as of this encounter
--- OUTSIDE RECORDS SUMMARY | 2024-12-05 11:17 | XMS_ITS | Clinical Summary ---
Author Organization [facility], Address [address] [place] [address] [place] [address] Phone Care Team Providers Care Pourer Metal Name Role Phone Evelyn Rodriguez Primary Care [...] this topic Insurance Medicaid [place] Care Teams Pourer Metal Relationship Specialty Start Date End Date Evelyn Rodriguez FNP PCP - General 02/18/23
--- OUTSIDE RECORDS SUMMARY | 2024-12-05 11:17 | XMS_ITS | Encounter Summary ---
Author Organization [employer] [facility] Address 75 [facility] 7t [place] [address] Care Team Providers Care Flat Clothier Name Role Phone Evelyn Ledesma Primary Care Provider [phone] Oralia Aguila MD Primary Care Provider [phone] Zeinab Sykes MD Primary Care Provider + Encounter Details Date Type Department Care Team (Late Contact Info) Description 10/22/2022 Orders Only [facility] MEDICINE [address] [place] [address] Evelyn Ledesma FNP 75 [facility] Dept [place] [address] Social History Tobacco Use Types Packs/Day Years [...] Description 01/04/2025 11:00 AM EDT Office Visit [facility] ADULT DENTAL 230 [place], [place] [phone] Ruben Hoguearis [address] [place] [address] 01/10/2025 12:00 PM EDT Office Visit [facility] [address] [place] [address] Zeinab Sykes MD 230 [place] [address] 01/22/2025 11:00 AM EDT Office Visit [facility] [address] [place] [address] documented as of this encounter Visit Diagnoses Not on filedocumented in this encounter Care Teams Flat Clothier Relationship Specialty Start Date End Date Evelyn Ledesma FNP PCP - General Family Medicine 03/15/22 04/25/23 Oralia Aguila MD [address] [place] [address] PCP - General Family Medicine 04/26/23 01/01/24 Zeinab Sykes MD [address] [place] [address] PCP - General Internal Medicine 01/02/24 Tomeka Martins Talent ConsultantSiene Maker 10/27/23 [facility] 11/06/24 documented as of this encounter
--- OUTSIDE RECORDS SUMMARY | 2024-12-05 11:17 | XMS_ITS | Encounter Summary ---
Author Organization [employer] Address 75 [facility] 7t [place] [address] Care Team Providers Care Web Programmer Name Role Phone Evelyn Ledesma Primary Care Provider [phone] Oralia Aguila MD Primary Care Provider Zeinab Sykes MD Primary Care Provider + Reason for Visit * Reason Onset Date Comments case from lab 11/04/2022 Encounter Details Date Type Department Care Team (Late st Contact Info) Description 11/04/2022 Telephone [facility] ADULT DENTAL [address] [place] [address] Asad Shore DDS 230 [place] [address] case from lab Social History Tobacco Use [...] Description 01/04/2025 11:00 AM EDT Office Visit [facility] ADULT DENTAL [address] [place] [address] Fabi Hogue [address] [place] [address] 01/10/2025 12:00 PM EDT Office Visit [facility] MEDICINE [address] [place] [address] Zeinab Sykes MD 230 [place] [address] 01/22/2025 11:00 AM EDT Office Visit [facility] MEDICINE [address] [place] [address] documented as of this encounter Visit Diagnoses Not on filedocumented in this encounter Care Teams Web Programmer Relationship Specialty Start Date End Date Evelyn Ledesma FNP PCP - General Family Medicine 03/15/22 04/25/23 Oralia Aguila MD [address] [place] [address] PCP - General Family Medicine 04/26/23 01/01/24 Zeinab Sykes MD [address] [place] [address] PCP - General Internal Medicine 01/02/24 Tomeka Martins Radio Mechanic ApprenticePromotions Assistant Sales Marketing 10/27/23 [facility] 11/06/24 documented as of this encounter
--- OUTSIDE RECORDS SUMMARY | 2024-12-05 11:17 | XMS_ITS | Encounter Summary ---
Author Organization [employer] Address [address] [place] [address] [address] [place] [address] Care Team Providers Care Plug Paster Name Role Phone Evelyn Ledesma Primary Care Provider [phone] Oralia Aguila MD Primary Care Provider [phone] Zeinab Sykes MD Primary Care Provider + Reason for Visit * Reason Onset Date Comments Appointment Request 12/20/2022 Encounter Details Date Type Department Care Team (Late st Contact Info) Description 12/20/[address] [facility] [address] [place] [phone] Evelyn Ledesma FNP [address] [place] [address] [place] [address] Appointment Request Social History Tobacco Use Types [...] an earlier day) Please contact pt at [phone] documented in this encounter Plan of Treatment Upcoming Encounters Date Type Department Care Team (Late st Contact Info) Description 01/04/2025 11:00 AM EDT Office Visit [facility] ADULT DENTAL [address] [place] [phone] Mykel, Fabi [address] [place] [address] 01/10/2025 12:00 PM EDT Office Visit [facility] MED[facility] [address] [place] [phone] Zeinab Sykes MD [address] [place] [phone] 01/22/2025 11:00 AM EDT Office Visit [facility] [address] [place] [phone] documented as of this encounter Goals Goal Patient Goal Type Associated Problems Recent Progress Patient-Stated? Author Patient will manage their medication General On track( 023 11:18 AM EDT) Citlali Ocampo, Anoop Note: Began medboxes. Goal achieved 11/19/22. Patient graduated from [facility]. documented as of this encounter Visit Diagnoses Not on filedocumented in this encounter Care Teams Plug Paster Relationship Specialty Start Date End Date Evelyn Ledesma FNP PCP - General Family Medicine 03/15/22 04/25/23 Oralia Aguial MD [address] [place] [phone] PCP - General Family Medicine 04/26/23 01/01/24 Zeinab Sykes MD [address] [place] [address] PCP - General Internal Medicine 01/02/24 Tomeka Martins Joss House KeeperInspector Balance Bridge 10/27/23 [employer] 11/06/24 documented as of this encounter
--- OUTSIDE RECORDS SUMMARY | 2024-12-05 11:17 | XMS_ITS | Encounter Summary ---
Author Organization [employer] Address [address] [facility] [address]t [place] [address] Care Team Providers Care Administrative Professional Name Role Phone Evelyn Ledesma Primary Care Provider [phone] Oralia Aguila MD Primary Care Provider [phone] Zeinab Sykes MD Primary Care Provider + Reason for Visit * Reason Onset Date Comments medical clearance 02/11/2023 Encounter Details Date Type Department Care Team (Late st Contact Info) Description 02/11/2023 Telephone [facility] [address] [place] [address] Asad Shore DDS [address] [place] [address] medical clearance Social History Tobacco Use Types [...] Description 01/04/2025 11:00 AM EDT Office Visit [facility] AD[facility] DENTAL [address] [place], [place] [phone] Mykel Fabi [address] [place] [address] 01/10/2025 12:00 PM EDT Office Visit [facility] MEDICINE [address] [place] [address] Zeinab Sykes MD [address] [place] [address] 01/22/2025 11:00 AM EDT Office Visit [facility] [address] [place] [address] documented as of this encounter Goals Goal Patient Goal Type Associated Problems Recent Progress Patient-Stated? Author Patient will manage their medication General On track( 023 11:18 AM EDT) No Citlali Armando, PharmD Note: Began medboxes. Goal achieved 11/19/22. Patient graduated from [facility]. documented as of this encounter Visit Diagnoses Not on filedocumented in this encounter Care Teams Administrative Professional Relationship Specialty Start Date End Date Evelyn Ledesma FNP PCP - General Family Medicine 03/15/22 04/25/23 Oralia Aguila MD [address] [place] [phone] PCP - General Family Medicine 04/26/23 01/01/24 Zeinab Sykes MD [address] [place] [address] [phone] PCP - General Internal Medicine 01/02/24 Tomeka Martins Certified Nuclear Medicine TechnologistCarbon Furnace Operator 10/27/23 [employer] 11/06/24 documented as of this encounter
--- OUTSIDE RECORDS SUMMARY | 2024-12-05 11:17 | XMS_ITS | Encounter Summary ---
Author Organization [facility] Address [address] [facility] [address] [place] [address] Care Team Providers Care Accounting Director Name Role Phone Oralia Aguila MD Primary Care Provider [phone] Zeinab Sykes MD Primary Care Provider + Reason for Visit * Reason Comments Med Refill Encounter Details Date Type Department Care Team (Late st Contact Info) Description 07/06/2023 Refill [facility] [address] [place] [address] Bryn Franklin MD [address] [place], [place] [phone] Social History Tobacco Use Types Packs/Day Years [...] Description 01/04/2025 11:00 AM EDT Office Visit [facility] [address] [place] [address] Fabi Hogue [address] [place] [address] 01/10/2025 12:00 PM EDT Office Visit [facility] [address] [place] [phone] Zeinab Sykes MD [address] [place] [phone] 01/22/2025 11:00 AM EDT Office Visit [address] [address] documented as of this encounter Goals Goal Patient Goal Type Associated Problems Recent Progress Patient-Stated? Author Patient will manage their medication General On track( 023 11:18 AM EDT) Citlali Ocampo, Anoop Note: Began medboxes. Goal achieved 11/19/22. Patient graduated from [facility]. documented as of this encounter Visit Diagnoses Not on filedocumented in this encounter Care Teams Accounting Director Relationship Specialty Start Date End Date Oralia Aguila MD [address] [place] [phone] PCP - General Family Medicine 04/26/23 01/01/24 Zeinab Sykes MD [address] [place] [phone] PCP - General Internal Medicine 01/02/24 Tomeka Martins Control Room HelperMultimedia Services Manager 10/27/23 [employer] 11/06/24 documented as of this encounter
--- OUTSIDE RECORDS SUMMARY | 2024-12-05 11:17 | XMS_ITS | Clinical Summary ---
Author Organization [employer] Address [address] [facility] [address] [place] [address] Care Team Providers Care Hydrant Setter Name Role Phone Zeinab Sykes MD [...] in the morning. Active oxymetazoline (Afrin Nasal Elkins) 0.05 % nasal spray Administer 2 sprays [...] complication, without long-term current use of insulin ([facility]) 1 each by Other route Once per day. USE TO TEST BLOOD SUGAR ONCE A DAY 100 each 3 024 Active glucose blood (FREESTYLE LITE) test stripIndications:T ype 2 diabetes mellitus without complication, without long-term current use of insulin (CMS/[facility]) USE TO TEST BLOOD SUGAR ONCE A DAY 100 each 3 024 Active sodium chloride (Runnells Nasal Elkins) 0.65 % nasal sprayIndications:A cute nasopharyngitis Administer 1 spray into each nostril if needed for congestion. 30 mL 1 025 2025 Active Alcohol Swabs (Alcohol Prep) padsIndications:Ty pe 2 diabetes mellitus without complication, without long-term current use of insulin ([facility]) USE TWICE DAILY 100 each 5 025 [...] 025 Active ergocalciferol (Vitamin D2) 1.25 MG (46474 UT) capsule Take 1 capsule (1.25 mg) [...] days. 112 tablet 025 2024 Active acetaminophen (Tylenol 8 Hour) 650 MG ER tablet Take 1 tablet (650 mg) by mouth every 8 (eight) hours if needed for mild pain. Do not crush, chew, or split. 120 tablet 025 2024 oxyCODONE-acetamin ophen (Percocet) 5-325 MG tabletIndications: Other [...] bx, I will fu or refer to NURSING INFORMATICS SPECIALIST after US reports. Left foot pain 03/29/2024 [...] and right L5-S1 decompressive laminectomy at [facility] - surgeon Dr. Melia Pedroza DME request for 10-in-1 pillow on 07/31/24 (not approved by insurance) Assessment & Plan (09/27/2024 11:23 AM EDT): Known DDD L-spine with radiculopathy sxs 05/26/2018 - Lumbar decompression surgery: L4-5 and right L5-S1 decompressive laminectomy at [facility] - surgeon Dr. Melia Pedroza DME request for 10-in-1 pillow on 07/31/24 (not approved by insurance) Assessment & Plan (07/31/2024 4:58 PM EST): Known DDD L-spine with radiculopathy sxs 05/26/2018 - Lumbar decompression surgery: L4-5 and right L5-S1 decompressive laminectomy at [facility] - surgeon Dr. Melia Pedroza DME request for 10-in-1 pillow on 07/31/24 Assessment & Plan (05/29/2024 5:18 PM EST): Known DDD L-spine with radiculopathy sxs 05/26/2018 - Lumbar decompression surgery: L4-5 and right L5-S1 decompressive laminectomy at [facility] - surgeon Dr. Melia Pedroza [...] disc, s/p vagus nerve stimulator, neuropathy Last LICENSED MORTICIAN Agreement: 03/13/24 Tier 3: LICENSED MORTICIAN visit Q4-6 months. (Last evaluated Jul 2024 [...] in 3mo Fatty liver 02/04/2024 Overview (03/29/2024): [facility] [place] on 10/2023 showed Fatty liver. Normal LFTs/albumin Assessment & Plan (03/29/2024 1:40 PM EDT): LFTs remain stable/normal. Dx d/w patient and advised her to continue tight control of DM, weight reduction, try to cut down on opiates and fu with me. I also advised her to avoid ETOH or recreational substances. Seborrheic dermatitis of scalp 01/02/2024 Overview (01/02/2024): Seen at [facility] dermatology Assessment & Plan (03/20/2024 3:50 PM EDT): Generally well controlled, encouraged to continue fu with [facility] derm Refill for fluocinolone today. Housing [...] pseudophedrine short term. Will refer her to field clerk again so she can be evaluated for [...] albuterol prn. Will refer her back to field clerk. RUQ pain 10/05/2023 Assessment & Plan (11/01/2023 [...] ballon inside the gastric body placed in [place] for bariatric procedure about 20 cm in [...] lumbar r egion 05/17/2017 Overview (09/17/2022): On LICENSED MORTICIAN contract. discussed tapering percocet options, not interested.. Referred to HIM forms dept for handicap plackards documents. Referred to [facility] for polypharmacy education. Continue medications as prescribed. Discussed Narcan. Encouraged nonpharmacologic pain relief strategies. will f/up next visit Assessment & Plan (03/20/2024 3:48 PM EDT): On LICENSED MORTICIAN contract. discussed tapering percocet options, not interested, it apparently offers partial enough improvement of sxs. Patient is aware that terminal gauger use of opiates can cause hyperalgesia, liver toxicity, UNISAW OPERATOR toxicity, increase anxiety, among others. Will continue to work with chronic pain management [facility] clinic. Continue medications as prescribed. Discussed [...] PRN for elevated BP readings.. Referred to [facility] for polypharmacy education. Continue medications [...] to enails with type 2 diabetes mellitus ([facility]) 05/17/2017 03/29/2024 Encounters Date Type Department Care Team Description 11/28/2024 Telephone [facility] [address] [place] [phone] Zeinab Sykes MD Prior Authorization (Medicare PA: Lidocaine 5% Patch) 11/26/2024 Refill [facility] [address] [place] [address] Zeinab Sykes MD Other intervertebral disc displacement, lumbar region 11/02/2024 Orders Only [facility] External Provider, [facility] 11/01/2024 Telephone [facility] [address] [place] [phone] Zeinab Sykes MD MED B form 10/31/2024 8:30 AM EDT Office Visit [facility] ADULT DENTAL [address] [place] [phone] Watkins-Maynard, Gay, DDS Fracture of removable partial denture (Primary Dx) 10/30/[address] [address] Zeinab Sykes MD FYI 10/29/[address] [address] Zeinab Sykes MD Verbal Orders 10/26/[address] [address] Zeinab Sykes MD Other intervertebral disc displacement, lumbar region 10/23/2024 11:00 AM EDT Office Visit [address] [address] Alma Jha, GROOMING ASSISTANT Lumbar back pain with radiculopathy affecting left lower extremity (Primary Dx); Long-term current use of opiate analgesic 10/23/2024 Travel 10/18/[address] [address] Zeinab Sykes MD ER Follow-up; Nurse Triage 10/17/2024 Refill [facility] [address] [place] [phone] Zeinab Sykes MD Neuropathy 10/09/2024 11:45 AM EDT Office Visit [address] [address] Zeinab Sykes MD Moderate persistent asthma without complication (Primary Dx); Class 2 severe obesity with serious comorbidity and body mass index (BMI) of 35.0 to 35.9 in adult, unspecified obesity type (CMS/HCC); Type 2 diabetes mellitus without complication, without long-term current use of insulin ([facility]); Essential hypertension; Arthritis; Vitamin D deficiency 10/09/2024 Travel 10/01/2024 Travel 09/28/2024 Refill [facility] [address] [place] [address] Zeinab Sykes MD Other intervertebral disc displacement, lumbar region 09/28/2024 Population Health Risk Score [facility] [address] [phone] Provider, Population Health Generic 09/25/2024 9:45 AM EDT Office Visit [facility] [address] [place] [address] Alma Jha FNP Lumbar back pain with radiculopathy affecting left lower extremity (Primary Dx); Long-term current use of opiate analgesic 09/25/2024 Travel 09/20/2024 Orders Only [facility] [address] [place], [place] [phone] Provider, MD Parag 09/19/2024 Refill [facility] [address] [place] [address] Zeinab Sykes MD Left hand pain from Last 3 Months Immunizations Immunization Administration Dates Next Due HepB-CpG 10/04/2022,09/03/2022 Influenza [...] 01/04/2025 11:00 AM EDT Office Visit [facility] ADULT DENTAL [address] [place] [address] MykelRubenFabi [address] [place] [address] 01/10/2025 12:00 PM EDT Office Visit [facility] [address] [place] [address] Zeinab Sykes MD [address] [place] [address] 01/22/2025 11:00 AM EDT Office Visit [facility] [address] [place] [address] Health Maintenance Due Date Last Done Comments [...] Depression Screening 08/15/2025 08/15/2024, 08/15/19 Tobacco Screening 10/31/2025 10/31/2024 Pap Smear 06/01/2027 [...] Goal achieved 11/19/22. Patient graduated from [facility]. Procedures Procedure Name Priority Date/Time Associated Diagnosis [...] complication, without long-term current use of insulin ([facility]) POCT GLUCOSE Routine 10/09/2024 11:58 AM EDT Type 2 diabetes mellitus without complication, without long-term current use of insulin ([facility]) POCT DIDIER-14 URINE DRUG SCREEN Routine 09/25/2024 [...] EDT Narrative 11/02/2024 12:36 PM EDT ? [facility] ? [address] ?[place] [address] ?XRay Report ? Signed ? Patient: Gerry Mclaughlin,Rhonda ?MR# ?? : [id number] ? : 1960 ?Acct:[id number] ? Age/Sex: 63 / F ?ADM Date: 04/18/25 ? Loc: HO.HOSX ? Attending Dr: Rubens ANDRE ? Ordering Physician: Rubens Kellogg ?? Date of Service: 11/02/24 ?? Procedure(s): XR Wrist Jah min 3V ?? Accession Number(s): [id number] ? cc: Rubens Kellogg; Zeinab Sykes MD [...] DD/ 1140 ? TD/TT: 11/02/24 1148 ? Project/Production Manager Imaging: ? Procedure Note Carolina Hernandez - 11/02/2024 [facility] [address] [facility] [address] [place] [address] XRay Report Signed Patient: Bertin FernándezMl# : [id number] : 1960Acct:[id number] Age/Sex: 63 / FADM Date: 11/02/24 Loc: ANTHONY Attending Dr: Rubens ANDRE Ordering Physician: Rubens Kellogg Date of Service: 11/02/24 Procedure(s): XR Wrist Jah min 3V Accession Number(s): [id number] cc: Rubens Kellogg; Zeinab Sykes MD EXAMINATION: [...] 11/02/24 1232 DD/ 1140 TD/TT: 11/02/24 1148 Project/Production Manager Imaging: [facility] External Provider IMG XR PROCEDURES Edited Result - Final * POCT DIDIER-14 Urine Drug Screen (10/23/2024 1:48 PM EDT) Only the most recent of2 resultswithin the time period is included. Oxycodone Screen, Urine Positive Urine Urine specimen obtained by clean catch procedure / Unknown 10/23/2024 1:48 PM EDT Narrative Jasmyn Menjivar RN - 10/23/2024 1:48 PM EDT .UTOX cup Lot#[id number] Exp. 03/06/26 Internal Pass Control us Alma Jha GROOMING ASSISTANT POINT OF CARE TEST ENTER/EDIT ORDERABLES Final Result * CT Abdomen Pelvis w/ Contrast (10/19/2024 4:13 PM EDT) Anatomical Region Laterality Modality Body, Pelvis, Abdomen Computed T omography 10/19/2024 4:13 PM EDT Narrative 10/19/2024 4:14 PM EDT ? [facility] ?[address] ?[place] [address] ? CT Scan Report ? Signed ? Patient: Rhonda Fernández ?MR# ?? : [id number] ? : 1960 ?Acct:[id number] ? Age/Sex: 63 / F ?ADM Date: 10/18/24 ? Loc: HO.CT ? Attending Dr: Nolberto Quigley MD ? Ordering Physician: Nolberto Quigley MD ?? Date of Service: 10/18/24 ?? Procedure(s): CT abdomen pelvis w IV con ?? Accession Number(s): [id number] ? cc: Zeinab Sykes MD; Nolberto Quigley MD ? Report Number: ?? [id number]: Total DLP = ??538.00 mGy-cm ? CLINICAL [...] MD in OV> ? 10/19/244 ? DD/ 1613 ? TD/TT: 10/19/243 ? Project/Production Manager Imaging: ? Procedure Note Mary, Image - 10/19/[address] [address] [address] Scan Report Signed Patient: Karla Fernández# : [id number] : 1960Acct:[id number] Age/Sex: 63 / FADM Date: 10/18/24 Loc: HO.CT Attending Dr: Nolberto Quigley MD Ordering Physician: Nolberto Quigley MD Date of Service: 10/18/24 Procedure(s): CT abdomen pelvis w IV con Accession Number(s): [id number] cc: Zeinab Sykes MD; Nolberto Quigley MD Report Number: [id number]: Total DLP = 538.00 mGy-cm CLINICAL HISTORY: [...] 10/19/24 1614 DD/ 1613 TD/TT: 10/19/24 1613 Project/Production Manager Imaging: [facility] External Provider IMG CT PROCEDURES Final Result * XR Wrist 3+ Views Left (10/16/2024 5:26 PM EDT) Anatomical Region Laterality Modality Upper Extremities, Wrist Left Radiogr aphic Imaging 10/16/2024 5:26 PM EDT Narrative 10/16/2024 5:28 PM EDT ? [facility] ?[address] ?[place] [address] ?XRay Report ? Signed ? Patient: Gerry Mclaughlin,Rhonda ?MR# ?? : [id number] ? : 1960 ?Acct:[id number] ? Age/Sex: 63 / F ?ADM Date: 04/01/25 ? Loc: HO.ED ? Attending Dr: ? Ordering Physician: Lanette Laura PA-C ?? Date of Service: 10/16/24 ?? Procedure(s): XR wrist LT min 3V ?? Accession Number(s): [id number] ? cc: Zeinab Sykes MD; Lanette Laura [...] 1727 ? DD/ ? TD/TT: 10/16/241725 ? Project/Production Manager Imaging: ? Procedure Note Carolina Hernandez - 10/16/[address] [address] XRay Report Signed Patient: Karla Fernández# : [id number] : 1960Acct:[id number] Age/Sex: 63 / FADM Date: 10/16/24 Loc: HO.ED Attending Dr: Ordering Physician: Lanette Laura PA-C Date of Service: 10/16/24 Procedure(s): XR wrist LT min 3V Accession Number(s): [id number] cc: Zeinab Sykes MD; Lanette Laura PA-C [...] signed by Enedina Beltran MD in OV> 04/01/25 1727 DD/ 1726 TD/TT: 10/16/24 1726 Project/Production Manager Imaging: [facility] External Provider IMG XR PROCEDURES Final Result * XR Hip left with Pelvis 1 view (10/16/2024 5:24 PM EDT) Anatomical Region Laterality Modality Lower Extremities, Hip Bilateral Radiograp hic Imaging 10/16/2024 5:24 PM EDT Narrative 10/16/2024 5:26 PM EDT ? [facility] ?[address] ?[place] [address] ?XRay Report ? Signed ? Patient: Gerry WickosRhonda ?MR# ?? : [id number] ? : 1960 ?Acct:[id number] ? Age/Sex: 63 / F ?ADM Date: 10/16/24 ? Loc: HO.ED ? Attending Dr: ? Ordering Physician: Lanette Laura PA-C ?? Date of Service: 10/16/24 ?? Procedure(s): XR hip LT w PEL1V ?? Accession Number(s): [id number] ? cc: Zeinab Sykes MD; Lanette Laura [...] DD/ 1724 ? TD/TT: 10/16/24 1724 ? Project/Production Manager Imaging: ? Procedure Note Carolina Hernandez - 10/16/2024 [facility] [address] [place] [address] XRay Report Signed Patient: Karla Fernández# : [id number] : 1960Acct:[id number] Age/Sex: 63 / FADM Date: 10/16/24 Loc: HO.ED Attending Dr: Ordering Physician: Lanette Laura PA-C Date of Service: 10/16/24 Procedure(s): XR hip LT w PEL1V Accession Number(s): [id number] cc: Zeinab Sykes MD; Lanette Laura PA-C [...] OV> 10/16/24 1725 DD/ 172 TD/TT: 10/16/24 172 Project/Production Manager Imaging: [facility] External Provider IMG XR PROCEDURES Final Result * XR Elbow 3+ Views Left (10/16/2024 5:23 PM EDT) Anatomical Region Laterality Modality Upper Extremities, Elbow Left Radiogr aphic Imaging 10/16/2024 5:23 PM EDT Narrative 10/16/2024 5:25 PM EDT ? [facility] ?[address] ?[place] [address] ?XRay Report ? Signed ? Patient: Gerry Mclaughlin,Rhonda ?MR# ?? : [id number] ? : 1960 ?Acct:[id number] ? Age/Sex: 63 / F ?ADM Date: 04/01/25 ? Loc: HO.ED ? Attending Dr: ? Ordering Physician: Lanette Laura PA-C ?? Date of Service: 10/16/24 ?? Procedure(s): XR elbow LT min 3V ?? Accession Number(s): [id number] ? cc: Zeinab Sykes MD; Lanette Laura [...] document has been electronically signed by: Enedina Beltrna MD on ?? 10/16/2024 17:23:59 ? Dictated By: ?Enedina Beltran MD ? Signed By: ?<Electronically signed by Enedina Beltran MD in OV> ? 10/16/24 1724 ? DD/ 1723 ? TD/TT: 10/16/24 1723 ? Project/Production Manager Imaging: ? Procedure Note Donotsaludinterpreter, Image - 10/16/[address] [address] XRay Report Signed Patient: Karla Fernández# : [id number] : 1960Acct:[id number] Age/Sex: 63 / FADM Date: 10/16/24 Loc: HO.ED Attending Dr: Ordering Physician: Lanette Laura PA-C Date of Service: 10/16/24 Procedure(s): XR elbow LT min 3V Accession Number(s): [id number] cc: Zeinab Sykes MD; Lanette Laura PA-C [...] Beltran MD in OV> 10/16/24 1724 DD/ 22 TD/TT: 10/16/241722 Project/Production Manager Imaging: [facility] External Provider IMG XR PROCEDURES Final Result * CT Cervical Spine w/o Contrast (10/16/2024 5:18 PM EDT) Anatomical Region Laterality Modality Spine, C-spine Computed Tomogra phy 10/16/2024 5:18 PM EDT Narrative 10/16/2024 5:19 PM EDT ? [facility] ?[address] ?[place] [address] ? CT Scan Report ? Signed ? Patient: Gerry Mclaughlin,Rhonda ?MR# ?? : [id number] ? : 1960 ?Acct:[id number] ? Age/Sex: 63 / F ?ADM Date: 10/16/24 ? Loc: HO.ED ? Attending Dr: ? Ordering Physician: Lanette Laura PA-C ?? Date of Service: 10/16/24 ?? Procedure(s): CT cervical spine wo IV con ?? Accession Number(s): [id number] ? cc: Zeinab Sykes MD; Lanette Laura PA-C ? Report Number: ?? [id number]: Total DLP = ??605.00 mGy-cm ? CLINICAL [...] ? DD/ 17 ? TD/TT: 10/16/241717 ? Project/Production Manager Imaging: ? Procedure Note Carolina Hernandez - 10/16/[address] [address] [address] Scan Report Signed Patient: Karla Fernández# : [id number] : 1960Acct:[id number] Age/Sex: 63 / FADM Date: 10/16/24 Loc: HO.ED Attending Dr: Ordering Physician: Lanette Laura PA-C Date of Service: 10/16/24 Procedure(s): CT cervical spine wo IV con Accession Number(s): [id number] cc: Zeinab Sykes MD; Lanette Laura PA-C Report Number: [id number]: Total DLP = 605.00 mGy-cm CLINICAL HISTORY: [...] in OV> 10/16/241718 DD/ 17 TD/TT: 10/16/241717 Project/Production Manager Imaging: [facility] External Provider IMG CT PROCEDURES [...] Creatinine, Serum 1.01 0.5 - 1.4 mg/dL [facility] Estimated Glomerular Filt Rate 55 [facility] Comment:Chronic Kidney Disea se: Estimated GFR < 60 mL/min/1.83e5Ptodom Kidney Disease: Estimated GFR < 15 mL/min/1.73m2 09/18/2024 3:57 PM EST 09/18/2024 3:57 PM EST us Generic External Data Provider LAB BLOOD ORDERAB LES Final Result Performing Organization Address City/[facility]/ZIP Co de Phone Number [facility] [address] [place] [phone] * BUN (Blood Urea Nitrogen) (09/18/2024 3:57 PM EST) Urea Nitrogen (BUN) 13 9 - 16 mg/dL [facility] 09/18/2024 3:57 PM EST 09/18/2024 3:57 PM EST us Generic External Data Provider LAB BLOOD ORDERAB LES Final Result Performing Organization Address City/[facility]/ZIP Co de Phone Number [facility] [address] [place] [phone] * Polysomnography (09/11/2024) us Zeinab Sykes MD [facility] ORDERABLES Final Result * Pap Smear (06/01/2024 2:43 PM EST) 06/01/2024 2:43 PM EST 06/04/2024 9:25 AM EST Narrative [facility] - 06/20/2024 7:51 AM EST ----- ------- Name: Rhonda Fernández ? Age/Sex: 63/F ? : 1960 Unit#: [id number] ?? Attend Dr: Aisha Mcclain CNM ?Re06/01/24 ?Status: DEP REF ? Location: HO.LNP ?Disch: ? ----- ------- SPEC : [id number] ?RECD: 06/04/24 ? STATUS: ??SOUT ? REQ NUM: [id number] ? DARWIN: 06/01/24-3993 ? SUBM DR: Aisha Mcclain CNM ? [...] To: ?? Zeinab Sykes MD ?? [facility] ?? [address] ?? [place] [address] ?? [phone] ?? Aisha Mcclain CNM ?? [facility] ?? [address] ?? [place] [address] ?? [phone] ----- ------- Signed (signature on file) INDERJIT Bloom (ASCP) 06/20/24 0751 ? ----- ------- ? END OF REPORT ? us Generic External Data Provider LAB CYTOLOGY ORDAndrea STAFFORD Final Result Performing Organization Address [facility] de Phone Number [facility] [address] [place] [address] [phone] * (ABNORMAL) Lipid Panel with Reflex to Direct LDL (01/06/2024 12:38 PM EDT) Triglycerides 91 <150 mg/dL [facility] Comment:Desirable Triglyceri de: less than 150 mg/dLBorderline High Triglyceride 150-199 mg/dLHigh Triglyceride: 200-499 mg/dLVery High Triglyceride: greater than or equal to 5OO mg/dL Cholesterol 211(H) <200 mg/dL [facility] Comment:Desirable Cholestero l: less than 200 mg/dLBorderline High Cholesterol: 200-239 mg/dLHigh Cholesterol: greater than 239 mg/dL LDL Cholesterol Calculated 132(H) <100 mg/dL [facility] Comment:Desirable LDL: less than 100 mg/dLNear Optimal/Above Optimal LDL: 110- 129 mg/dLBorderline High LDL: 130-159 mg/dLHigh LDL: 160-189 mg/dLVery High LDL: greater than or equal to 190 mg/dL HDL Cholesterol 61 >40 mg/dL [facility] Comment:Desirable HDL: great er than 40 mg/dL Note: This HDL assay may give artificially low results in patients with liver disease. Blood 01/06/2024 12:3 8 PM EDT 01/06/2024 4:21 PM EDT us Zeinab Sykes MD LAB BLOOD ORDERABLES Fin al Result Performing Organization Address [facility] Co de Phone Number [facility] [address] [place] [address] [phone] * Hepatitis Panel, General (01/06/2024 12:38 PM EDT) Hepatitis A IgM Nonreactive Nonreactive [facility] Comment:IgM antibodies to GUERIN V not detected; does not exclude earlyacute or recovered HAV infection. ~Hepatitis B Surface Antibody REACTIVE Nonreactive [facility] Comment:REACTIVE: > 11.99 mI U/mL Hepatitis B Core Antibody Nonreactive Nonreactive [facility] Hepatitis C Antibody Nonreactive Nonreactive [facility] Comment:Antibodies to HCV no t detected; does not exclude early acuteHCV infection. Hepatitis B Surface Ag Negative Negative [facility] Blood 01/06/2024 12:3 8 PM EDT 01/06/2024 4:21 PM EDT us Zeinab Sykes MD LAB BLOOD ORDERABLES Fin al Result [facility] [address] [place] [phone] * Mammography Report 1 (03/15/2022 5:00 PM EDT) Anatomical Region Laterality Modality Breast Bilateral Mammography 03/15/2022 5:00 PM EDT Narrative 03/16/2022 8:33 AM EDT Refer to the Notes tab for result details [facility] Procedure: Mammography Report 1 Procedure Note ProviderParag MD - 10/10/2022 Refer to the Notes tab for result details [facility] Procedure: Mammography Report 1 us Evelyn Ledesma GROOMING ASSISTANT IMG BI PROCEDURES Final Re sult * [...] 244 20 - 275 mg/dL [facility] 03/08/2022 3:04 PM EDT Rebekah Guevara COMMUNITY HEALTH NAVIGATOR LAB URINE ORDERABLES Final Res ult Performing Organization Address [facility] Co de Phone Number [facility] [address] * Hm Colonoscopy (11/05/2020 11:36 AM EDT) Historical Provider MD HEALTH MAINTENANCE Final Result * HPV mRNA E6/E7 (07/07/2020 12:00 AM EST) HPV nRNA E6/E7 Not Detected Not Detected [facility] Comment: This test was performed using the APTIMA HPV Assay ([employer] This assay detects E6/E7 viral messenger RNA (mRNA) from 14 high-risk HPV types (16,18,31,33,35,39,45,51,52,56,58,59,66,68). ?? The analytical performance characteristics of this assay have been determined by [employer]. The modifications have not been cleared or approved by the FDA. This assay has been validated pursuant to the CLIA regulations and is used for clinical purposes. 07/07/2020 Historical Provider LAB BLOOD ORDERABLES Sera l Result Performing Organization Address [facility] de Phone Number [facility] [address] from Last 3 Months or Most Recently Relevant to Health Maintenance Insurance MEDICARE [facility] STANDARD DENTAL-[facility] MEDICAID STAND ADULT Care Teams Hydrant Setter Relationship Specialty Start Date End Date Zeinab Sykes MD [address] [place] [phone] PCP - General Internal Medicine 01/02/24 Tomeka Martins Customer Management SpecialistHousehold Worker 10/27/23 Tj Caring 11/06/24
--- OUTSIDE RECORDS SUMMARY | 2024-12-05 11:17 | XMS_ITS | Encounter Summary ---
Author Organization [facility] Address [address] [place] [address] 7t [place] [address] Care Team Providers Care Interpreter And Translator Name Role Phone Oralia Aguila MD Primary Care Provider [phone] Zeinab Sykes MD Primary Care Provider + Reason for Visit * Reason Onset Date Comments Med Refill 05/05/2023 Encounter Details Date Type Department Care Team (Late st Contact Info) Description 05/05/2023 Refill [facility]INE [address] [place] [address] Oralia Aguila MD 230 [place], [place] [phone] Other intervertebral disc displacement, lumbar region Social [...] 5- 325 MG tablet to besent to [facility] - [place], [place] - [address] [facility] documented in this encounter Plan of Treatment Upcoming Encounters Date Type Department Care Team (Late st Contact Info) Description 01/04/2025 11:00 AM EDT Office Visit [facility] ADULT DENTAL [address] [place] [address] Mykel, Fabi [address] [place] [address] 01/10/2025 12:00 PM EDT Office Visit [facility] MED[facility]INE [address] [place] [address] Zeinab Sykes MD 230 [place] [address] 01/22/2025 11:00 AM EDT Office Visit [facility] [address] [place] [address] documented as of this encounter Goals Goal Patient Goal Type Associated Problems Recent Progress Patient-Stated? Author Patient will manage their medication General On track( 023 11:18 AM EDT) Citlali Ocampo, PharmD Note: Began medboxes. Goal achieved 11/19/22. Patient graduated from [facility]. documented as of this encounter Visit Diagnoses Diagnosis Other intervertebral disc displacement, lumbar region documented in this encounter Care Teams Interpreter And Translator Relationship Specialty Start Date End Date Oralia Aguila MD [address] [place] [address] PCP - General Family Medicine 04/26/23 01/01/24 Zeinab Sykes MD [address] [place] [address] PCP - General Internal Medicine 01/02/24 Tomeka Martins Web Operations AdministratorMedical Imaging Technologist 10/27/23 [facility] 11/06/24 documented as of this encounter
--- OUTSIDE RECORDS SUMMARY | 2024-12-05 11:17 | XMS_ITS | Encounter Summary ---
Author Organization [employer] Address [address] [facility] 7t [place] [address] Care Team Providers Care Privacy Director Name Role Phone Zeinab Sykes MD Primary Care Provider + Reason for Visit * Reason Onset Date Comments Med Refill 07/16/2024 Encounter Details Date Type Department Care Team ([facility] st Contact Info) Description 07/16/2024 Telephone [facility] 230 [place], [place] [phone] Zeinab Sykes MD 230 [place] [address] Med Refill Social History Tobacco Use Types [...] 10 MG capsule To be sent to: [facility] pharmacy documented in this encounter Plan of Treatment Upcoming Encounters Date Type Department Care Team (Late st Contact Info) Description 01/04/2025 11:00 AM EDT Office Visit [facility] ADULT DENTAL 230 [place] [address] Fabi Hogue 230 [place] [address] 01/10/2025 12:00 PM EDT Office Visit [facility] 230 [place] [address] Zeinab Sykes MD 230 [place] [address] 01/22/2025 11:00 AM EDT Office Visit [facility] [address] [place] [address] documented as of this encounter Goals Goal Patient Goal Type Associated Problems Recent Progress Patient-Stated? Author Patient will manage their medication General On track( 023 11:18 AM EDT) Citlali Ocampo PharmD Note: Began medboxes. Goal achieved 11/19/22. Patient graduated from [facility]. documented as of this encounter Visit Diagnoses Not on filedocumented in this encounter Additional Health Concerns Assessment Noted Time PHQ-9 Depression Total Score: 18 024 1:46 PM EDT documented as of this encounter Care Teams Privacy Director Relationship Specialty Start Date End Date Zeinab Sykes MD 230 [place] [address] PCP - General Internal Medicine 01/02/24 Tomeka Martins Devops ConsultantSaw Repairer 10/27/23 [facility] 11/06/24 documented as of this encounter
--- OUTSIDE RECORDS SUMMARY | 2024-12-05 11:17 | XMS_ITS | Encounter Summary ---
Author Organization [employer] [facility] Address [address] [place] [address] 7t [place] [address] Care Team Providers Care Application Integration Architect Name Role Phone Oralia Aguila MD Primary Care Provider [phone] Zeinab Sykes MD Primary Care Provider + Reason for Visit * Reason Onset Date Comments antibiotics pre med 07/19/2023 Encounter Details Date Type Department Care Team (Late st Contact Info) Description 07/19/2023 Telephone [facility] [address] [place] [address] AttStefany terry, DDS [address] [place] [address] antibiotics pre med Social History Tobacco Use [...] Description 01/04/2025 11:00 AM EDT Office Visit [facility] ADULT DENTAL 230 [place], [place] [phone] Mykel, Fabi 230 [place] [address] 01/10/2025 12:00 PM EDT Office Visit [facility] [address] [place] [address] Zeinab Sykes MD 230 [place] [address] 01/22/2025 11:00 AM EDT Office Visit [facility] [address] [place] [address] [phone] documented as of this encounter Goals Goal Patient Goal Type Associated Problems Recent Progress Patient-Stated? Author Patient will manage their medication General On track( 023 11:18 AM EDT) No Citlali Armando, PharmD Note: Began medboxes. Goal achieved 11/19/22. Patient graduated from [facility]. documented as of this encounter Visit Diagnoses Not on filedocumented in this encounter Care Teams Application Integration Architect Relationship Specialty Start Date End Date Oralia Aguila MD [address] [place] [address] [phone] PCP - General Family Medicine 04/26/23 01/01/24 Zeinab Sykes MD [address] [place] [address] [phone] PCP - General Internal Medicine 01/02/24 Tomeka Martins Director Speech And HearingBusiness Office Assistant 10/27/23 [facility] 11/06/24 documented as of this encounter
--- OUTSIDE RECORDS SUMMARY | 2024-12-05 11:17 | XMS_ITS | Encounter Summary ---
Author Organization [employer] [facility] Address [address] [place] [address] [place] [address] Care Team Providers Care Gameplay Programmer Name Role Phone Evelyn Ledesma Primary Care Provider [phone] Oralia Aguila MD Primary Care Provider [phone] Zeinab Sykes MD Primary Care Provider + Reason for Visit * Reason Comments Med Refill Encounter Details Date Type Department Care Team (Late st Contact Info) Description 02/05/2023 Refill [facility] MEDICINE [address] [place] [address] Evelyn Ledesma FNP [address] [place] [address] Dept [place] [address] Neuropathy Social History Tobacco Use Types Packs/Day [...] Description 01/04/2025 11:00 AM EDT Office Visit [facility] ADULT DENTAL 230 [place] [address] Fabi Hogue 230 [place] [address] 01/10/2025 12:00 PM EDT Office Visit [address] [address] Zeinab Sykes MD [address] [place] [address] 01/22/2025 11:00 AM EDT Office Visit [address] [phone] documented as of this encounter Goals Goal Patient Goal Type Associated Problems Recent Progress Patient-Stated? Author Patient will manage their medication General On track( 023 11:18 AM EDT) Citlali Ocampo, PharmD Note: Began medboxes. Goal achieved 11/19/22. Patient graduated from [facility]. documented as of this encounter Visit Diagnoses Diagnosis Neuropathy Mononeuritis of unspecified site documented in this encounter Care Teams Gameplay Programmer Relationship Specialty Start Date End Date Evelyn Ledesma FNP PCP - General Family Medicine 03/15/22 04/25/23 Oralia Aguila MD [address] [place] [address] PCP - General Family Medicine 04/26/23 01/01/24 Zeinab Sykes MD [address] [place] [address] PCP - General Internal Medicine 01/02/24 Tomeka Martins Sfdc Solution ArchitectCeramic Sprayer 10/27/23 [facility] 11/06/24 documented as of this encounter
--- OUTSIDE RECORDS SUMMARY | 2024-12-05 11:17 | XMS_ITS | Encounter Summary ---
Author Organization [employer] [facility] Address [address] [place] [address] 7t [place] [address] Care Team Providers Care Boat Buffer Plastic Name Role Phone Evelyn Ledesma Raegan EDWARDS Primary Care Provider [phone] Oralia Aguila MD Primary Care Provider [phone] Zeinab Sykes MD Primary Care Provider + Encounter Details Date Type Department Care Team (Latest Contact Info) Description 12/21/2018 Abstract [facility] CONVERSIONS Dental, Provider, DDS Social History [...] [facility] ADULT [facility] [address] [place] [address] Ruben Hoguearis [address] [place] [address] 01/10/2025 12:00 PM EDT Office Visit [facility] MEDICINE [address] [place], [place] [phone] Zeinab Sykes MD 230 [place], [place] [phone] 01/22/2025 11:00 AM EDT Office Visit [facility] MEDICINE [address] [place] [address] documented as of this encounter Visit Diagnoses Not on filedocumented in this encounter Care Teams Boat Buffer Plastic Relationship Specialty Start Date End Date Evelyn Ledesma FNP PCP - General Family Medicine 03/15/22 04/25/23 Oralia Aguila MD 230 [place] [address] PCP - General Family Medicine 04/26/23 01/01/24 Zeinab Sykes MD [address] [place] [address] PCP - General Internal Medicine 01/02/24 Tomeka Martins WallpapererCloth Dyeing Range Tender 10/27/23 [facility] 11/06/24 documented as of this encounter
--- OUTSIDE RECORDS SUMMARY | 2024-12-05 11:17 | XMS_ITS | Encounter Summary ---
Author Organization [facility], Address [address] [place] [address] Phone Care Team Providers Care Oracle Obiee Developer Name Role Phone Evelyn Rodriguez Primary Care Provider Silvana vailable Encounter Details Date Type Department Care Team (Late st Contact Info) Description 02/18/2023 Documentation Only [facility], [address] [place] [address] Xiao Sheppard [address] [place] [address] Social History Tobacco Use Types [...] on filedocumented in this encounter Care Teams Oracle Obiee Developer Relationship Specialty Start Date End Date Evelyn Rodriguez FNP PCP - General 02/18/23 documented as of this encounter
--- OUTSIDE RECORDS SUMMARY | 2024-12-05 11:17 | XMS_ITS | Encounter Summary ---
Author Organization [employer] [facility] Address [address] [facility] 7t [place] [address] Care Team Providers Care Bulk Station Agent Name Role Phone Evelyn Ledesma Primary Care Provider [phone] Oralia Aguila MD Primary Care Provider [phone] Zeinab Sykes MD Primary Care Provider + Encounter Details Date Type Department Care Team ([facility] Contact Info) Description 08/20/2022 Orders Only [facility] [address] [place] [address] Karen Henderson FNP Social History Tobacco Use [...] Office Visit [facility]ULT [facility] [address] [place] [address] Ruben Hoguearis [address] [place] [address] 01/10/2025 12:00 PM EDT Office Visit [address] [address] Zeinab Sykes MD [address] [place] [address] 01/22/2025 11:00 AM EDT Office Visit [address] [address] documented as of this encounter Visit Diagnoses Not on filedocumented in this encounter Care Teams Bulk Station Agent Relationship Specialty Start Date End Date Evelyn Ledesma FNP PCP - General Family Medicine 03/15/22 04/25/23 Oralia Aguila MD [address] [place] [address] PCP - General Family Medicine 04/26/23 01/01/24 Zeinab Sykes MD [address] [place] [address] [phone] PCP - General Internal Medicine 01/02/24 Tomeka Martins Laboratory TechBarker Operator 10/27/23 [facility] 11/06/24 documented as of this encounter
--- OUTSIDE RECORDS SUMMARY | 2024-12-05 11:17 | XMS_ITS | Encounter Summary ---
Author Organization [employer] [facility] Address [address] [place] [address] 7t [place] [address] Care Team Providers Care Explosive Operator Bomb Name Role Phone Evelyn Ledesma Primary Care Provider [phone] Oralia Aguila MD Primary Care Provider [phone] Zeinab Sykes MD Primary Care Provider + Reason for Visit * Reason Onset Date Comments Prior Authorization 12/28/2022 Encounter Details Date Type Department Care Team (Late st Contact Info) Description 12/28/2022 Telephone [facility] MEDICINE [address] [place] [address] Evelyn Ledesma FNP [address] [place] [address] Dept [place] [address] Prior Authorization Social History Tobacco Use Types [...] AM EDT T/C placed to pt via [employer] Building Tech Zeinab #[id number]. Advised of message from pcp re: lab [...] all other NSAIDS. Do you have a sales recruiting coordinator yet? If not, your PCP would like [...] AM EDT TC luis m Emery from [employer] requesting XL pull ups and disposable under pads . States faxed request couple days ago and have not gotten a response . Informs paper work 12/29/22. Please call to clarify at phone # [phone] . documented in this encounter Plan of Treatment Upcoming Encounters Date Type Department Care Team (Late st Contact Info) Description 01/04/2025 11:00 AM EDT Office Visit [facility] ADULT DENTAL 230 [place], [place] [phone] Fabi Hogue [address] [place] [address] 01/10/2025 12:00 PM EDT Office Visit [address] [phone] Zeinab Sykes MD [address] [place] [address] [phone] 01/22/2025 11:00 AM EDT Office Visit [address] [address] documented as of this encounter Goals Goal Patient Goal Type Associated Problems Recent Progress Patient-Stated? Author Patient will manage their medication General On track( 023 11:18 AM EDT) Citlali Ocampo, Anoop Note: Began medboxes. Goal achieved 11/19/22. Patient graduated from [facility]. documented as of this encounter Visit Diagnoses Not on filedocumented in this encounter Care Teams Explosive Operator Bomb Relationship Specialty Start Date End Date Evelyn Ledesma FNP PCP - General Family Medicine 03/15/22 04/25/23 Oralia Aguila MD [address] [place] [address] [phone] PCP - General Family Medicine 04/26/23 01/01/24 Zeinab Sykes MD [address] [place] [address] PCP - General Internal Medicine 01/02/24 Tomeka Martins Adhesive Bonding Machine OperatorCvt Tech 10/27/23 [facility] 11/06/24 documented as of this encounter
--- OUTSIDE RECORDS SUMMARY | 2024-12-05 11:17 | XMS_ITS | Clinical Summary ---
Author Organization [facility] Address [address] [place] [address] Care Team Providers Care Coating Mixer Supervisor Name Role Phone Meryl Montes Primary Care Provider [phone] Surgical History Surgery Date Site/Laterality Comments BREAST REDUCTION PROCEDURE: [place] BREAST REDUCTION BACK SURGERY PROCEDURE: HISTORICAL BACK [...] age to complete this topic Care Teams Coating Mixer Supervisor Relationship Specialty Start Date End Date Meryl Montes [address] [place] [address] [phone] PCP - General 05/07/22
--- OUTSIDE RECORDS SUMMARY | 2024-12-05 11:17 | XMS_ITS | Encounter Summary ---
Author Organization [employer] Address [address] [facility] 7t [place] [address] Care Team Providers Care Aircraft Mechanic Armament Name Role Phone Zeinab Sykes MD Primary Care Provider + Reason for Visit * Reason Comments Med Refill Encounter Details Date Type Department Care Team ([facility] st Contact Info) Description 05/04/2024 Refill [facility] MEDICINE 230 [place], [place] [phone] Zeinab Sykes MD 230 [place] [address] Other intervertebral disc displacement, lumbar region Social [...] Description 01/04/2025 11:00 AM EDT Office Visit [facility] ADULT DENTAL [address] [place] [address] Mykel, Fabi [address] [place] [address] 01/10/2025 12:00 PM EDT Office Visit [facility] MEDICINE [address] [place] [address] Zeinab Sykes MD 230 [place] [address] 01/22/2025 11:00 AM EDT Office Visit [facility] MEDICINE [address] [place] [address] documented as of this encounter Goals Goal Patient Goal Type Associated Problems Recent Progress Patient-Stated? Author Patient will manage their medication General On track( 023 11:18 AM EDT) No Citlali Armando PharmD Note: Began medboxes. Goal achieved 11/19/22. Patient graduated from [facility]. documented as of this encounter Visit Diagnoses Diagnosis Other intervertebral disc displacement, lumbar region documented in this encounter Additional Health Concerns Assessment Noted Time PHQ-9 Depression Total Score: 18 024 1:46 PM EDT documented as of this encounter Care Teams Aircraft Mechanic Armament Relationship Specialty Start Date End Date Zeinab Sykes MD [address] [place] [address] PCP - General Internal Medicine 01/02/24 Tomeka Martins Police Department SecretaryCustoms Opener Verifier Packer 10/27/23 [facility] 11/06/24 documented as of this encounter
--- OUTSIDE RECORDS SUMMARY | 2024-12-05 11:17 | XMS_ITS | Encounter Summary ---
Author Organization [employer] Address [address] [facility] 7t [place] [address] Care Team Providers Care Lead Teller Name Role Phone Zeinab Sykes MD Primary Care Provider + Reason for Visit * Reason Onset Date Comments Prior Authorization 11/28/2024 Medicare PA: Lidocaine 5% Patch Encounter Details Date Type Department Care Team ([place] [facility] st Contact Info) Description 11/28/2024 Telephone [facility] MEDICINE [address] [place] [address] Zeinab Sykes MD [address] [place] [address] Prior Authorization (Medicare PA: Lidocaine 5% Patch) Social History Tobacco Use Types Packs/Day Years [...] encounter Miscellaneous Notes * Telephone Encounter - Radha Dickey - 11/30/2024 2:39 PM EDT JES initiated on Covermymeds for Lidocaine 5% Patch. Approval/denial pending. Treviño: [id number] JES Rx #: [id number] * Telephone Encounter - Fabi Farah - 11/29/2024 4:37 PM EDT Tc from pt regarding script for lidocaine (Lidoderm) 5 % patch. Sales Clerk Supervisor contacted [facility] pharmacy and was advised script requires a prior authorization. * Telephone Encounter - Fany Mary RN - 11/28/2024 11:38 AM EDT Per medrec, lidocaine patches with 2 refills remaining. Alcohol pads with 4 refills remaining. * Telephone Encounter - Morena Cordero - 11/28/2024 11:32 AM EDT Pt walked in requesting refill for Lidocaine patches and Alcohol pads. documented in this encounter Plan of Treatment Upcoming Encounters Date Type Department Care Team (Late st Contact Info) Description 01/04/2025 11:00 AM EDT Office Visit [facility] ADULT DENTAL [address] [place], [place] [phone] Mykel, Fabi [address] [place], [place] [phone] 01/10/2025 12:00 PM EDT Office Visit [facility] MEDICINE [address] [place], [place] [phone] Zeinab Sykes MD [address] [place] [address] [phone] 01/22/2025 11:00 AM EDT Office Visit [facility] MEDICINE [address] [place] [address] [phone] documented as of this encounter Goals Goal Patient Goal Type Associated Problems Recent Progress Patient-Stated? Author Patient will manage their medication General On track( 023 11:18 AM EDT) Citlali Ocampo, PharmD Note: Began medboxes. Goal achieved 11/19/22. Patient graduated from [facility]. documented as of this encounter Visit Diagnoses Not on filedocumented in this encounter Additional Health Concerns Assessment Noted Time PHQ-9 Depression Total Score: 22 025 10:31 AM EST documented as of this encounter Care Teams Lead Teller Relationship Specialty Start Date End Date Zeinab Sykes MD [address] [place] [address] PCP - General Internal Medicine 01/02/24 Tomeka Martins Sporting Goods Sales ManagerLap Hand Tool 10/27/23 [facility] 11/06/24 documented as of this encounter
--- OUTSIDE RECORDS SUMMARY | 2024-12-05 11:17 | XMS_ITS | Encounter Summary ---
Author Organization [employer] [facility] Address [address] [place] [address] 7t [place] [address] Care Team Providers Care Drafter (Cad) Electrical Name Role Phone Oralia Aguila MD Primary Care Provider [phone] Zeinab Sykes MD Primary Care Provider + Reason for Visit * Reason Comments Med Refill Encounter Details Date Type Department Care Team (Late Contact Info) Description 08/09/2023 Refill [facility] [address] [place] [address] Oralia Aguila MD 230 [place], [place] [phone] Other intervertebral disc displacement, lumbar region Social [...] 11:00 AM EDT Office Visit [facility] ADULT DENTAL [address] [place] [address] Fabi Hogue [address] [place] [address] 01/10/2025 12:00 PM EDT Office Visit [address] [address] Zeinab Sykes MD [address] [place] [address] 01/22/2025 11:00 AM EDT Office Visit [address] [address] documented as of this encounter Goals Goal Patient Goal Type Associated Problems Recent Progress Patient-Stated? Author Patient will manage their medication General On track( 023 11:18 AM EDT) Citlali Ocampo, PharmD Note: Began medboxes. Goal achieved 11/19/22. Patient graduated from [facility]. documented as of this encounter Visit Diagnoses Diagnosis Other intervertebral disc displacement, lumbar region documented in this encounter Care Teams Drafter (Cad) Electrical Relationship Specialty Start Date End Date Oralia Aguila MD [address] [place] [address] PCP - General Family Medicine 04/26/23 01/01/24 Zeinab Sykes MD [address] [place] [address] PCP - General Internal Medicine 01/02/24 Tomeka Martins Steam Tank OperatorScientific Illustrator 10/27/23 [facility] 11/06/24 documented as of this encounter
--- OUTSIDE RECORDS SUMMARY | 2024-12-05 11:17 | XMS_ITS | Encounter Summary ---
Author Organization [employer] Address [address] [place] [address] [place] [address] Care Team Providers Care Office Clerk Assistant Name Role Phone Evelyn Ledesma Primary Care Provider [phone] Oralia Aguila MD Primary Care Provider [phone] Zeinab Sykes MD Primary Care Provider + Reason for Visit * Reason Onset Date Comments Referral 02/03/2023 Renewal Encounter Details Date Type Department Care Team (Late st Contact Info) Description 02/03/2023 Telephone [facility] MEDICINE [address] [place] [address] Evelyn Ledesma FNP [address] [place] [address] Dept [place] [address] Referral (Renewal ) Social History Tobacco Use [...] 11:00 AM EDT Office Visit [facility] ADULT DENTAL [address] [place], [place] [phone] Mykel, Fabi [address] [place] [address] 01/10/2025 12:00 PM EDT Office Visit [facility] MEDICINE [address] [place] [address] Zeinab Sykes MD [address] [place] [address] 01/22/2025 11:00 AM EDT Office Visit [facility] MEDICINE [address] [place] [address] documented as of this encounter Goals Goal Patient Goal Type Associated Problems Recent Progress Patient-Stated? Author Patient will manage their medication General On track( 023 11:18 AM EDT) Citlali Ocampo, PharmD Note: Began medboxes. Goal achieved 11/19/22. Patient graduated from [facility]. documented as of this encounter Visit Diagnoses Not on filedocumented in this encounter Care Teams Office Clerk Assistant Relationship Specialty Start Date End Date Evelyn Ledesma FNP PCP - General Family Medicine 03/15/22 04/25/23 Oralia Aguila MD [address] [place] [address] PCP - General Family Medicine 04/26/23 01/01/24 Zeinab Sykes MD [address] [place] [address] PCP - General Internal Medicine 01/02/24 Tomeka Martins Nurse Staff IndustrialOil Expeller 10/27/23 [employer] 11/06/24 documented as of this encounter
--- OUTSIDE RECORDS SUMMARY | 2024-12-05 11:17 | XMS_ITS | Encounter Summary ---
Author Organization [employer] Address [address] 7t [place] [address] Care Team Providers Care Divorce Lawyer Name Role Phone Zeinab Sykes MD Primary Care Provider + Encounter Details Date Type Department Care Team ([facility] st Contact Info) Description 09/20/2024 Orders Only [facility] MED & PEDS [address] [place] [address] ProviderParag MD Social History Tobacco Use Types [...] Description 01/04/2025 11:00 AM EDT Office Visit [facility] ADULT DENTAL [address] [place] [address] Mykel, Fabi [address] [place] [address] 01/10/2025 12:00 PM EDT Office Visit [facility] MEDICINE [address] [place] [address] Zeinab Sykes MD [address] [place] [address] 01/22/2025 11:00 AM EDT Office Visit [facility] MEDICINE [address] [place] [address] documented as of this encounter Goals Goal Patient Goal Type Associated Problems Recent Progress Patient-Stated? Author Patient will manage their medication General On track( 023 11:18 AM EDT) No Citlali Armando, Anoop Note: Began medboxes. Goal achieved 11/19/22. Patient graduated from [facility]. documented as of this encounter [...] EDT Narrative 10/19/2024 4:14 PM EDT ? [facility] ?[address] ?[place] [address] ? CT Scan Report ? Signed ? Patient: Rhonda Fernández ?MR# ?? : [id number] ? : 1960 ?Acct:[id number] ? Age/Sex: 63 / F ?ADM Date: 10/18/24 ? Loc: HO.CT ? Attending Dr: Nolberto Quigley MD ? Ordering Physician: Nolberto Quigley MD ?? Date of Service: 10/18/24 ?? Procedure(s): CT abdomen pelvis w IV con ?? Accession Number(s): [id number] ? cc: Zeinab Sykes MD; Nolberto Quigley MD ? Report Number: ?? [id number]: Total DLP = ??538.00 mGy-cm ? CLINICAL [...] ? DD/ 12 ? TD/TT: 10/19/241612 ? Ehs Engineer: ? Procedure Note Donotuseinterpreter, Image - 10/19/[address] [address] [address] Scan Report Signed Patient: Karla Fernández# : [id number] : 1960Acct:[id number] Age/Sex: 63 / FADM Date: 10/18/24 Loc: HO.CT Attending Dr: Nolberto Quigley MD Ordering Physician: Nolberto Quigley MD Date of Service: 10/18/24 Procedure(s): CT abdomen pelvis w IV con Accession Number(s): [id number] cc: Zeinab Sykes MD; Nolberto Quigley MD Report Number: [id number]: Total DLP = 538.00 mGy-cm CLINICAL HISTORY: [...] 10/19/24 1614 DD/ 1613 TD/TT: 10/19/24 1613 Ehs Engineer: us [facility] External Provider IMG CT PROCEDURES Final Result * XR Wrist 3+ Views Left (10/16/2024 5:26 PM EDT) Anatomical Region Laterality Modality Upper Extremities, Wrist Left Radiogr aphic Imaging 10/16/2024 5:26 PM EDT Narrative 10/16/2024 5:28 PM EDT ? [facility] [place] [facility] ?[address] ?[place] [address] ?XRay Report ? Signed ? Patient: Gerry Mclaughlin,Rhonda ?MR# ?? : [id number] ? : 1960 ?Acct:[id number] ? Age/Sex: 63 / F ?ADM Date: 10/16/24 ? Loc: HO.ED ? Attending Dr: ? Ordering Physician: Lanette Laura PA-C ?? Date of Service: 10/16/24 ?? Procedure(s): XR wrist LT min 3V ?? Accession Number(s): [id number] ? cc: Zeinab Sykes MD; Lanette Laura [...] 1727 ? DD/ ? TD/TT: 10/16/241725 ? Ehs Engineer: ? Procedure Note Mary, Image - 10/16/2024 [place] [address] XRay Report Signed Patient: Karla Fernández# : [id number] : 1960Acct:[id number] Age/Sex: 63 / FADM Date: 10/16/24 Loc: HO.ED Attending Dr: Ordering Physician: Lanette Laura PA-C Date of Service: 10/16/24 Procedure(s): XR wrist LT min 3V Accession Number(s): [id number] cc: Zeinab Sykes MD; Lanette Laura PA-C [...] 10/16/24 1727 DD/ 172 TD/TT: 10/16/24 172 Ehs Engineer: [facility] External Provider IMG XR PROCEDURES Final Result * XR Hip left with Pelvis 1 view (10/16/2024 5:24 PM EDT) Anatomical Region Laterality Modality Lower Extremities, Hip Bilateral Radiograp hic Imaging 10/16/2024 5:24 PM EDT Narrative 10/16/2024 5:26 PM EDT ? [facility] ?[address] ?[place] [address] ?XRay Report ? Signed ? Patient: Rhonda Fernández ?MR# ?? : [id number] ? : 1960 ?Acct:[id number] ? Age/Sex: 63 / F ?ADM Date: 10/16/24 ? Loc: HO.ED ? Attending Dr: ? Ordering Physician: Lanette Laura PA-C ?? Date of Service: 10/16/24 ?? Procedure(s): XR hip LT w PEL1V ?? Accession Number(s): [id number] ? cc: Zeinab Sykes MD; Lanette Laura [...] DD/ 1724 ? TD/TT: 10/16/24 1724 ? Ehs Engineer: ? Procedure Note Mary, Carolina - 10/16/2024 [facility] [address] [place] [address] XRay Report Signed Patient: Karla Fernández# : [id number] : 1960Acct:[id number] Age/Sex: 63 / FADM Date: 10/16/24 Loc: HO.ED Attending Dr: Ordering Physician: Lanette Luara PA-C Date of Service: 10/16/24 Procedure(s): XR hip LT w PEL1V Accession Number(s): [id number] cc: Zeinab Sykes MD; Lanette Laura PA-C [...] 10/16/24 1725 DD/ 1724 TD/TT: 10/16/24 1724 Ehs Engineer: [facility] External Provider IMG XR PROCEDURES Final Result * XR Elbow 3+ Views Left (10/16/2024 5:23 PM EDT) Anatomical Region Laterality Modality Upper Extremities, Elbow Left Radiogr aphic Imaging 10/16/2024 5:23 PM EDT Narrative 10/16/2024 5:25 PM EDT ? [facility] ?[address] ?[place] [address] ?XRay Report ? Signed ? Patient: Gerry Mclaughlin,Rhonda ?MR# ?? : [id number] ? : 1960 ?Acct:[id number] ? Age/Sex: 63 / F ?ADM Date: 04/01/25 ? Loc: HO.ED ? Attending Dr: ? Ordering Physician: Lanette Laura PA-C ?? Date of Service: 10/16/24 ?? Procedure(s): XR elbow LT min 3V ?? Accession Number(s): [id number] ? cc: Zeinab Sykes MD; Lanette Laura [...] DD/ 22 ? TD/TT: 10/16/24 1723 ? Ehs Engineer: ? Procedure Note Carolina Hernandez - 10/16/[address] [address] XRay Report Signed Patient: Karla Fernández# : [id number] : 1960Acct:[id number] Age/Sex: 63 / FADM Date: 10/16/24 Loc: HO.ED Attending Dr: Ordering Physician: Lanette Laura PA-C Date of Service: 10/16/24 Procedure(s): XR elbow LT min 3V Accession Number(s): [id number] cc: Zeinab Sykes MD; Lanette Laura PA-C [...] in OV> 10/16/241723 DD/ 22 TD/TT: 10/16/241722 Ehs Engineer: us [facility] External Provider IMG XR PROCEDURES Final Result * CT Cervical Spine w/o Contrast (10/16/2024 5:18 PM EDT) Anatomical Region Laterality Modality Spine, C-spine Computed Tomogra phy 10/16/2024 5:18 PM EDT Narrative 10/16/2024 5:19 PM EDT ? [facility] ?[address] ?[place] [address] ? CT Scan Report ? Signed ? Patient: Gerry Mclaughlin,Rhonda ?MR# ?? : [id number] ? : 1960 ?Acct:[id number] ? Age/Sex: 63 / F ?ADM Date: 10/16/24 ? Loc: HO.ED ? Attending Dr: ? Ordering Physician: Lanette Laura PA-C ?? Date of Service: 10/16/24 ?? Procedure(s): CT cervical spine wo IV con ?? Accession Number(s): [id number] ? cc: Zeinab Sykes MD; Lanette Laura PA-C ? Report Number: ?? [id number]: Total DLP = ??605.00 mGy-cm ? CLINICAL [...] DD/ 1718 ? TD/TT: 10/16/24 1718 ? Ehs Engineer: ? Procedure Note Carolina Hernandez - 10/16/2024 [facility] [address] [place] [address] CT Scan Report Signed Patient: Gerry MclaughlinKarla# : [id number] : 1960Acct:[id number] Age/Sex: 63 / FADM Date: 10/16/24 Loc: HO.ED Attending Dr: Ordering Physician: Lanette Laura PA-C Date of Service: 10/16/24 Procedure(s): CT cervical spine wo IV con Accession Number(s): [id number] cc: Zeinab Sykes MD; Lanette Laura PA-C Report Number: [id number]: Total DLP = 605.00 mGy-cm CLINICAL HISTORY: [...] in OV> 10/16/241718 DD/ 17 TD/TT: 10/16/241717 Ehs Engineer: [facility] External Provider IMG CT PROCEDURES Final Result * Hm Colonoscopy (11/05/2020 11:36 AM EDT) Historical Provider HEALTH MAINTENANCE Final Result documented in this encounter Visit Diagnoses Not on filedocumented in this encounter Additional Health Concerns Assessment Noted Time PHQ-9 Depression Total Score: 22 025 10:31 AM EST documented as of this encounter Care Teams Divorce Lawyer Relationship Specialty Start Date End Date Zeinab Sykes MD [address] [place] [address] PCP - General Internal Medicine 01/02/24 Tomeka Martins Pan GreaserCryptologic Supervisor 10/27/23 [employer] [employer]aring 11/06/24 documented as of this encounter
--- OUTSIDE RECORDS SUMMARY | 2024-12-05 11:17 | XMS_ITS | Encounter Summary ---
Author Organization [facility] Address [address] [place] [address] 7t [place] [address] Care Team Providers Care Glass Enamel Mixer Name Role Phone Oralia Aguila MD Primary Care Provider [phone] Zeinab Sykes MD Primary Care Provider + Reason for Visit * Reason Comments Med Refill Encounter Details Date Type Department Care Team (Late st Contact Info) Description 09/21/2023 Refill [facility] MEDICINE [address] [place], [place] [phone] Oralia Aguila MD [address] [place], [place] [phone] Neuropathy Social History Tobacco Use Types Packs/Day [...] Description 01/04/2025 11:00 AM EDT Office Visit [facility] ADULT DENTAL [address] [place], [place] [phone] Fabi Hogue [address] [place] [address] 01/10/2025 12:00 PM EDT Office Visit [facility] MEDICINE [address] [place] [address] Zeinab Sykes MD [address] [place] [address] 01/22/2025 11:00 AM EDT Office Visit [address] [address] documented as of this encounter Goals Goal Patient Goal Type Associated Problems Recent Progress Patient-Stated? Author Patient will manage their medication General On track( 023 11:18 AM EDT) Citlali Ocampo, Anoop Note: Began medboxes. Goal achieved 11/19/22. Patient graduated from [facility]. documented as of this encounter Visit Diagnoses Diagnosis Neuropathy Mononeuritis of unspecified site documented in this encounter Care Teams Glass Enamel Mixer Relationship Specialty Start Date End Date Oralia Aguila MD [address] [place] [address] PCP - General Family Medicine 04/26/23 01/01/24 Zeinab Sykes MD [address] [place] [address] PCP - General Internal Medicine 01/02/24 Tomeka Martins Business AsstRelations Director 10/27/23 [employer] 11/06/24 documented as of this encounter
== END 2024-12-04 09:56 | disposition home or self-care (01) ==
LOC: HO.HOSX 09:55
DX: Z13.89 Encounter for screening for other disorder (principal)

== ENCOUNTER 2024-12-19 12:57 | Outpatient (REF) | payer MEDICARE, MEDICAID, SELFPAY ==
--- NOTE | ~2024-12-19 | XR_ITS ---
EXAMINATION: XR WRIST, LEFT CLINICAL INFORMATION: M25.532 - Pain in left wrist COMPARISON: November 02, 2024 TECHNIQUE: PA, lateral, and oblique and spot scaphoid views of the left wrist. FINDINGS: There is borderline low mineral density. Again seen is moderate joint space narrowing, osteosclerosis, and ossified formation involving the first carpal metacarpal joint. There is no joint diastases or malalignment. No fracture is identified. XR/XR wrist LT w scaphoid IMPRESSION: Stable moderate osteoarthritis involving the first carpal metacarpal joint. Borderline low bone mineral density. Electronically signed by: Dustin Wolff MD 12/19/2024 06:32 PM EDT
== END 2024-12-19 12:58 | disposition home or self-care (01) ==
LOC: HO.HOSX 12:57
PROVIDERS: PCP Internal Medicine
DX: M25.531 Pain in right wrist (principal); M25.532 Pain in left wrist
CPT/HCPCS: 73110; 99212

== ENCOUNTER 2024-12-19 12:57 | Outpatient (AMB) | payer MEDICARE, MEDICAID, SELFPAY ==
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
[2024-12-19 13:05] VITALS: BMI 34.7
--- OUTSIDE RECORDS SUMMARY | 2024-12-19 13:20 | XMS_ITS | Encounter Summary ---
Author Organization [employer] [facility] Address [address] [facility] 7t [place] [address] Care Team Providers Care Field Trainer Name Role Phone Evelyn Ledesma Primary Care Provider [phone] Oralia Aguila MD Primary Care Provider [phone] Zeinab Sykes MD Primary Care Provider + Encounter Details Date Type Department Care Team ([facility] Contact Info) Description 08/20/2022 Orders Only [facility] MEDICINE [address] [place] [address] Karen Henderson FNP Social History Tobacco Use [...] Description 01/04/2025 11:00 AM EDT Office Visit [facility] ADULT DENTAL [address] [place] [address] Fabi Hogue [address] [place] [address] 01/10/2025 12:00 PM EDT Office Visit [facility] MEDICINE [address] [place] [address] Zeinab Sykes MD [address] [place] [address] 01/15/2025 11:00 AM EDT Office Visit [facility] ADULT DENTAL [address] [place] [address] Watkins-Maynard, Gay, DDS [address] [place] [address] 01/22/2025 11:00 AM EDT Office Visit [facility] MEDICINE [address] [place] [address] documented as of this encounter Visit Diagnoses Not on filedocumented in this encounter Care Teams Field Trainer Relationship Specialty Start Date End Date Evelyn Ledesma FNP PCP - General Family Medicine 03/15/22 04/25/23 Oralia Aguila MD [address] [place] [address] PCP - General Family Medicine 04/26/23 01/01/24 Zeinab Sykes MD [address] [place] [address] PCP - General Internal Medicine 01/02/24 Tomeka Martins Water Fitness InstructorFunder 10/27/23 [employer] 11/06/24 documented as of this encounter
== END 2024-12-19 13:57 | disposition home or self-care (01) ==
LOC: HO.HOS 12:58
PROVIDERS: PCP Internal Medicine
DX: M25.531 Pain in right wrist (principal); M25.532 Pain in left wrist
CPT/HCPCS: 99213

== ENCOUNTER → 2024-12-19 13:40 | Outpatient (BNV) | payer MEDICARE, MEDICAID, SELFPAY | PROVIDERS: PCP Internal Medicine; Visit Provider Radiology Diagnostic Radiology | DX: M18.12 Unilateral primary osteoarthritis of first carpometacarpal joint, left hand (principal) | CPT/HCPCS: 73110 ==

== ENCOUNTER 2025-01-04 16:06 | Outpatient (REF) | payer MEDICARE, MEDICAID, SELFPAY ==
--- NOTE | ~2025-01-04 | US_ITS ---
EXAMINATION: US PELVIS CLINICAL INFORMATION: Uterine leiomyoma COMPARISON: CT 10/04/2024 and ultrasound June 18, 2024 TECHNIQUE: Ultrasound of the pelvis is performed using both transabdominal and transvaginal transducers along with Doppler. Transvaginal imaging is performed due to inadequate visualization transabdominally. FINDINGS: Uterus: The uterus is retroflexed and measures 8.5 x 3.5 x 3.7 cm. The double wall endometrial thickness is 4 mm. The uterus is smooth in contour and has normal myometrial echogenicity. No visible fibroid. Adnexa: Both ovaries are visualized. There is normal color flow to the adnexa. There is no ovarian torsion. There is no pelvic ascites or fluid collection. Right ovary is not well seen. Possible right ovary measured 1.2 x 0.5 x 1.5 cm. Left ovary measures 1.3 x 1.0 x 2.8 cm. US/US pelvic and transvaginal IMPRESSION: No uterine masses were documented. Study was limited by body habitus. Electronically signed by: Dustin Wolff MD 01/04/2025 06:18 PM EDT
== END 2025-01-04 16:07 | disposition home or self-care (01) ==
LOC: HO.US 16:06
PROVIDERS: PCP Internal Medicine; Visit Provider Obstetrics & Gynecology
DX: D25.9 Leiomyoma of uterus, unspecified (principal)
CPT/HCPCS: 76830; 76856

== ENCOUNTER → 2025-01-04 16:08 | Outpatient (BNV) | payer MEDICARE, MEDICAID, SELFPAY | PROVIDERS: PCP Internal Medicine; Visit Provider Radiology Diagnostic Radiology | DX: D25.9 Leiomyoma of uterus, unspecified (principal) | CPT/HCPCS: 76830; 76856 ==

== ENCOUNTER 2025-01-11 10:39 | Outpatient (AMB) | payer MEDICARE, MEDICAID, SELFPAY ==
--- NOTE | 2025-01-11 10:44 | A.OFFVIS_ITS ---
Vital Signs 01/11/25 10:53 Height 5 ft 3 in Weight 198 lb 6.656 oz BMI 35.1 BP 116/56 L Blood Pressure Location Lt brachial Position Sitting Pulse 75 Intake Visit Reasons: ~ 6 week FUV. Intake Note: Rhonda presents in the office as a 6 week follow up. CC: States she has issues with her constipation. [employer] is not working for her. She states when she has a BM she has a very little BM that comes out. Membership Correspondent Required: Yes Allergies No Known Drug Allergies Allergy (Unknown, Verified 01/11/25 10:48) none pineapple (PINEAPPLE) Allergy (Unknown, Verified 01/11/25 10:48) TONGUE SWELLS latex Allergy (Verified 01/11/25 10:48) Unknown HPI HPI ~ 6 week FUV.: Details: Assessment & Plan (1) Irritable bowel syndrome with constipation: Code(s): K58.1 - Irritable bowel syndrome with constipation Category: Medical (2) Rectal spasm: Code(s): K59.4 - Anal spasm Category: Medical (3) Adenomatous colon polyp: Comment: Repeat asymptomatic colonoscopy- 3 years-2023 Code(s): D12.6 - Benign neoplasm of colon, unspecified Category: Medical Plan [employer] #[id number] (With review of the chart it appears she has here not for management of chronic GERD but for her repeat colonoscopy that was called for for 3 years after 3 polyps removed in 2020 although only to move them were TA is.) She tells me that the green pills caused post prandial diarrhea. This was less but still occurred with 1 every night, she even had one episode of near fecal incontinence. So, it sounds like titrating the senna is not a good option for her. I will change to MOM and try to titrate. She also is still having fecal leakage that may indicate incomplete evacuation. She says she saw her COMMUNITY ORGANIZER and they did not find any vaginal problems. She had had a LOT of vaginal surgeries, but she feels this problem pre dated her vaginal surgeries - she also had hx of back problems and surgery so interrupted nerve signals could be in the ddx. 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 She did feel that the dicyclomine was helpful with her pain. However she was only taking 1 at bedtime and she does have breakthrough pain during the day so I suggest she take 1 in the evening 1 in the morning and then keep a 3rd for p.r.n. use for breakthrough pain. She is agreeable to this. Along with the milk of magnesia we will see how she does and evaluate her response to the medications. She is ask quite a lot of questions about whether we will be able to see the origin of the pathology via colonoscopy. I advised her that this is probably not likely unless there is a severe anatomic abnormality. Ordinarily these sort of problems of the intestine are functional and not due to anyone causative factor. The good news is it that they are not deadly but they are usually due to a number of different factors that affect the bowels at any given time including hormones, neural signals, internal and external milieu etc. if this is the case once we have ruled out any severe pathology we treat the symptoms. Depending on her response there is the possibility of rectal incompetence and we could consider something like a balloon expulsion test. However I would have to send her to different institution for this. Return office visit next available Medications: New magnesium hydroxide (Milk of Magnesia) 5 mL PO BEDTIME 355 mL 6RF K58.1 - Irritable bowel syndrome with constipation Changed From dicyclomine 20 mg PO BID 30 days 60 tabs 3RF K58.1 - Irritable bowel syndrome with constipation, K59.4 - Anal spasm To dicyclomine 1 tab qhs, 1 tab qam scheduled, 1 tablet prn breakthrough cramps orally 3 times a day; 90 tabs 6RF 30 days K58.1 - Irritable bowel syndrome with constipation, K59.4 - Anal spasm Discontinued sennosides (Senna Laxative) Discontinued Reason: Doctor's Order 17.2 mg (2 x 8.6 mg) PO BEDTIME 60 tabs 6RF K58.1 - Irritable bowel syndrome with constipation COLONOSCOPY not yet contacted but tracking note is in chart BIOPSY TODAY'S VISIT [employer] #[id number] She prefers the coordinator skill training program camera not point at her She continues to this day on milk of magnesia and dicyclomine. (She has quite a bit of rectal leakage currently of uncertain origin. To date, she says her tetryl wringer operator has not found any overt vaginal problems but it is unclear whether they actually did an exam for cystocele/rectocele.Depending on her response there is the possibility of rectal incompetence and we could consider something like a balloon expulsion test. However I would have to send her to different institution for this. She did not do well with senna going on with the assumption that she may have incomplete evacuation) Her sx are the same, the MOM did not help with the sx, In fact, she feels her CIC has worsened, but the senna gave her diarrhea. She continues to have rectal leakage but only with liquid stools that is preceded by pain and then I can't hold it. She does not have rectal incontinence of solid stools, but she does have stooling that will continues to come down after wiping that seems to indicate incomplete evacuation. ROV 6-8 weeks. PFSH Medical History Environmental allergies Hypertension Primary osteoarthritis of left knee Primary osteoarthritis of right knee Hemorrhoids Diverticulosis large intestine w/o perforation or abscess w/o bleeding Encounter for screening colonoscopy Preoperative cardiovascular examination HART (dyspnea on exertion) Epigastric pain Chronic cough Gastric outlet obstruction Complications of bariatric procedures Pre-syncope Encounter for well woman exam with routine gynecological exam Postmenopausal bleeding Elevated cholesterol Full dentures Low back pain COVID-19 vaccine series completed Asthma Palpitations Diabetes mellitus Obesity Erosive osteoarthritis Primary osteoarthritis of knees, bilateral Surgical History H/O perineoplasty H/O bariatric surgery Status post total right knee replacement History of bladder surgery History of total bilateral knee replacement Hx of colonoscopy Hx of reduction mammoplasty Hx of tonsillectomy History of H/O Spinal surgery Family History Mother Hx of acute arthritis Father History of Parkinson's disease Social History Household Members Other:: Daughter Housing: House Are you a primary child care worker to a significant other at home: No Do you presently have visiting nurse or other home services: No Unable to assess alcohol history related to: Unknown Alcohol intake: never Patient Tobacco Use Status: Never used Tobacco Current occupational status: disabled Current occupation: rt handed Sexual orientation: Straight/Heterosexual Gender identity: Female Review of Systems Const Denies fatigue, Denies fever(s), Denies night sweats, Denies poor appetite and Denies weight loss ENT Reports Normal hearing present, Denies dental pain, Denies dysphagia, Denies hearing loss, Denies mouth pain, Denies odynophagia, Denies throat swelling, Denies tongue swelling and Reports other (Dentition adequate) Card Reports no additional complaints Resp Reports no additional complaints GI Details: Denies abdominal pain, Denies melena, Denies bloating, Denies hematochezia, Reports constipation (Incomplete evacuation followed by fecal incontinence/rectal leakage), Denies GI cramping, Denies dysphagia, Denies excessive flatus, Denies early satiety, Denies heartburn, Denies diarrhea, Denies nausea, Denies odynophagia, Denies vomiting and Denies hematemesis Skin/Breast Denies pruritus, Denies lesions, Denies rash and Denies jaundice Neuro Reports Normal hearing present and Denies Abnormal speech present Endo Denies fatigue Aller/Immun Denies throat swelling and Denies tongue swelling Physical Exam Vital Signs: Last Vital Signs Pulse 75 01/11/25 10:53 BP 116/56 L 01/11/25 10:53 BMI result Body Mass Index 35.1 Const General: cooperative, no acute distress, well developed and well groomed Nutritional Appearance: well nourished and obese Orientation/consciousness: oriented to person, oriented to place and oriented to time Limitations: language barrier HEENT Other: facies asymmetry of mouth Head: Yes atraumatic Eyes General: appearance normal, both eyes and all related structures Pupils: Equal, round and reactive pupils present Neck Neck: Yes normal visual inspection and Yes no lymphadenopathy Thyroid: Thyroid normal Resp Effort & Inspection: normal respiratory effort and able to speak in complete sentences Auscultation: clear to auscultation bilaterally Cardio Rate: regular rate Rhythm: regular rhythm Heart sounds: Normal, physiologic split S2 sound present Peripheral pulses: radial pulses present and posterior tibial pulses present GI Inspection: No distended, Yes Abdominal panniculus present and Yes obesity Palpation (GI): Soft to palpation, nontender, no guarding, not rigid and No hepatosplenomegaly present Percussion: Yes normal to percussion Auscultation: normal bowel sounds Rectal Exam - Female: deferred Skin General skin exam: no rashes or lesions noted, turgor normal, skin not dry, no jaundice, No spider nevi and no striae Rashes: no rashes Nails: normal Neuro General: oriented to person, oriented to place and oriented to time Cranial nerves: Yes Equal, round and reactive pupils present and Yes Normal hearing present Speech: No Abnormal speech present Extrem General: Yes normal to inspection, No clubbing, No cyanosis and No edema Psych Appearance: grossly normal and well kempt Mental Status: mental status grossly normal Speech and movement: Normal speech and movement present Affect: normal affect Attitude: cooperative Thought process: Normal thought process present and not confabulating Thought content: Normal thought content present Insight: Limited insight present (Psych) Judgement: Limited judgement present (Psych) Assessment & Plan Assessment & Plan (1) Rectal spasm: Code(s): K59.4 - Anal spasm Category: Medical (2) Irritable bowel syndrome with constipation: Code(s): K58.1 - Irritable bowel syndrome with constipation Category: Medical (3) Adenomatous colon polyp: Comment: Repeat asymptomatic colonoscopy- 3 years-2023 Code(s): D12.6 - Benign neoplasm of colon, unspecified Category: Medical (4) Rectal leakage: Code(s): R15.9 - Full incontinence of feces Category: Medical Plan [employer] #[id number] She prefers the coordinator skill training program camera not point at her She continues to this day on milk of magnesia and dicyclomine. (She has quite a bit of rectal leakage currently of uncertain origin. To date, she says her tetryl wringer operator has not found any overt vaginal problems but it is unclear whether they actually did an exam for cystocele/rectocele.Depending on her response there is the possibility of rectal incompetence and we could consider something like a balloon expulsion test. However I would have to send her to different institution for this. She did not do well with senna going on with the assumption that she may have incomplete evacuation) Her sx are the same, the MOM did not help with the sx, In fact, she feels her CIC has worsened, but the senna gave her diarrhea. She continues to have rectal leakage but only with liquid stools that is preceded by pain and then I can't hold it. She does not have rectal incontinence of solid stools, but she does have stooling that will continues to come down after wiping that seems to indicate incomplete evacuation. ROV 6-8 weeks. COLONOSCOPY not yet contacted but tracking note is in chart BIOPSY Medications: New lactulose 20 grams (30 mL) PO BID 3,785 mL 3RF K58.1 - Irritable bowel syndrome with constipation Discontinued peg 3350-electrolytes 236-22.74-6.74 -5.86 gram (Golytely) until fecal effluent is clear; do not exceed a total volume of 2,000 mL Discontinued Reason: Patient no longer taking 240 mL PO Q10M 1 day 4,000 mL 0RF Z12.11 - Encounter for screening for malignant neoplasm of colon magnesium hydroxide (Milk of Magnesia) Discontinued Reason: Doctor's Order 5 mL PO BEDTIME 355 mL 6RF K58.1 - Irritable bowel syndrome with constipation Coding Level of Care Code Est Pt Level 3 (72176) Diagnoses Rectal spasm K59.4 Irritable bowel syndrome with constipation K58.1 Adenomatous colon polyp D12.6 Rectal leakage R15.9
[2025-01-11 10:53] VITALS: BP 116/56; PULSE 75; BMI 35.1
--- OUTSIDE RECORDS SUMMARY | 2025-01-11 11:34 | XMS_ITS | Encounter Summary ---
Author Organization [facility] Address [address] [place] [address] Care Team Providers Care Electrical Electronics Technician Name Role Phone Evelyn Ledesma Primary Care Provider [phone] Oralia Aguila MD Primary Care Provider [phone] Zeinab Sykes MD Primary Care Provider + Encounter Details Date Type Department Care Team ([facility] Contact Info) Description 08/20/2022 Orders Only [facility] MEDICINE [address] [place] [address] Karen Henderson FNP Social History Tobacco Use [...] Care Team ([facility] Contact Info) Description 01/15/2025 11:00 AM EDT Office Visit [facility] ADULT DENTAL [address] [place] [address] Gay Thompson, DDS [address], [place] [phone] 01/22/2025 11:00 AM EDT Office Visit [address] [address] 03/28/2025 11:45 AM EDT Office Visit [facility] MEDICINE [address] [place] [address] [phone] Zeinab Sykes MD [address] [place] [phone] documented as of this encounter Visit Diagnoses Not on filedocumented in this encounter Care Teams Electrical Electronics Technician Relationship Specialty Start Date End Date Evelyn Ledesma FNP PCP - General Family Medicine 03/15/22 04/25/23 Oralia Aguila MD [address] [place] [id number] PCP - General Family Medicine 04/26/23 01/01/24 Zeinab Sykes MD [address] [place] [address] [phone] PCP - General Internal Medicine 01/02/24 Tomeka Martins Supervisor AssemblyGroup Care Worker 10/27/23 [facility] 11/06/24 documented as of this encounter
== END 2025-01-11 11:43 | disposition home or self-care (01) ==
LOC: HO.HGI 10:40
PROVIDERS: PCP Internal Medicine; Visit Provider Nurse Practitioner
DX: K59.4 Anal spasm (principal); K58.1 Irritable bowel syndrome with constipation; D12.6 Benign neoplasm of colon, unspecified; R15.9 Full incontinence of feces
CPT/HCPCS: 99213

== ENCOUNTER → 2025-01-11 10:39 | Outpatient (BNVA) | payer MEDICARE, MEDICAID, SELFPAY | PROVIDERS: PCP Internal Medicine; Visit Provider Nurse Practitioner | DX: K59.4 Anal spasm (principal); K58.1 Irritable bowel syndrome with constipation; D12.6 Benign neoplasm of colon, unspecified; R15.9 Full incontinence of feces | CPT/HCPCS: 99212 ==

== ENCOUNTER 2025-02-28 09:00 | Outpatient (AMB) | payer MEDICARE, MEDICAID, SELFPAY ==
--- NOTE | 2025-02-28 09:18 | A.OFFVIS_ITS ---
Vital Signs 02/28/25 09:20 Height 5 ft 3 in Weight 198 lb BMI 35.1 Intake Visit Reasons: 6 month ultrasound follow up Medical Resident Required: Yes Medical Resident Language: And Rescue Fire Fighter [employer]: Medical Resident Present (in person) Medical Resident Name: Leola JON Information Interpreted: non-clinical & clinical Accompanied by: Self / Same As Patient Allergies No Known Drug Allergies Allergy (Unknown, Verified 02/28/25 09:21) none pineapple (PINEAPPLE) Allergy (Unknown, Verified 02/28/25 09:21) TONGUE SWELLS latex Allergy (Verified 02/28/25 09:21) Unknown HPI Comments Details: Presenting for ultrasound follow-up with no complaints. Pelvic ultrasound done recently showed the following: Uterus: The uterus is retroflexed and measures 8.5 x 3.5 x 3.7 cm. The double wall endometrial thickness is 4 mm. The uterus is smooth in contour and has normal myometrial echogenicity. No visible fibroid. Adnexa: Both ovaries are visualized. There is normal color flow to the adnexa. There is no ovarian torsion. There is no pelvic ascites or fluid collection. Right ovary is not well seen. Possible right ovary measured 1.2 x 0.5 x 1.5 cm. Left ovary measures 1.3 x 1.0 x 2.8 cm. [facility] Medical History Environmental allergies Hypertension Primary osteoarthritis of left knee Primary osteoarthritis of right knee Hemorrhoids Diverticulosis large intestine w/o perforation or abscess w/o bleeding Encounter for screening colonoscopy Preoperative cardiovascular examination HART (dyspnea on exertion) Epigastric pain Chronic cough Gastric outlet obstruction Complications of bariatric procedures Pre-syncope Encounter for well woman exam with routine gynecological exam Postmenopausal bleeding Elevated cholesterol Full dentures Low back pain COVID-19 vaccine series completed Asthma Palpitations Diabetes mellitus Obesity Erosive osteoarthritis Primary osteoarthritis of knees, bilateral Surgical History H/O perineoplasty H/O bariatric surgery Status post total right knee replacement History of bladder surgery History of total bilateral knee replacement Hx of colonoscopy Hx of reduction mammoplasty Hx of tonsillectomy History of H/O Spinal surgery Family History Mother Hx of acute arthritis Father History of Parkinson's disease Social History Household Members Other:: Daughter Housing: House Are you a primary primary health care nurse to a significant other at home: No Do you presently have visiting nurse or other home services: No Unable to assess alcohol history related to: Unknown Alcohol intake: never Patient Tobacco Use Status: Never used Tobacco Current occupational status: disabled Current occupation: rt handed Sexual orientation: Straight/Heterosexual Gender identity: Female Review of Systems Const All systems reviewed & are unremarkable except as noted in HPI and below Reports as per HPI and Reports no additional complaints GI Reports no additional complaints Reports no additional complaints Physical Exam Vital Signs: BMI result Body Mass Index 35.1 Assessment & Plan Assessment & Plan (1) Uterine myoma: Code(s): D25.9 - Leiomyoma of uterus, unspecified Category: Medical Plan: Discussed with the patient the finding on ultrasound no evidence of myoma but limited visualization due to body habitus. Endometrial stripe is within normal, instructions given to patient to call in case of pelvic pain and or bleeding in other concerns. all questions answered, the patient verbalized understanding Coding Level of Care Code Est Pt Level 3 (61393) Diagnoses Uterine myoma D25.9
[2025-02-28 09:20] VITALS: BMI 35.1
--- OUTSIDE RECORDS SUMMARY | 2025-02-28 09:27 | XMS_ITS | Encounter Summary ---
Author Organization [facility] Address [address] [place] [address] Care Team Providers Care Communications Intern Name Role Phone Evelyn Ledesma HAND MIXER Primary Care Provider Silvana Oralia Alamo MD Primary Care Provider [phone] Zeinab Sykes MD Primary Care Provider + Encounter Details Date Type Department Care Team ([facility] Contact Info) Description 08/20/2022 Orders Only [facility] MEDICINE [address] [place] [address] Karen Henderson FNP Social History Tobacco Use [...] Upcoming Encounters Date Type Department Care Team ([facility] Contact Info) Description 03/08/2025 10:00 AM EDT Office Visit [facility] ADULT DENTAL [address] [place] [address] WatkinsGay Lim DDS [address] [place] [address] 03/28/2025 11:45 AM EDT Office Visit [address] [address] Zeinab Sykes MD [address] [place], [place] [phone] 05/28/2025 11:00 AM EST Office Visit [address] [address] documented as of this encounter Visit Diagnoses Not on filedocumented in this encounter Care Teams Communications Intern Relationship Specialty Start Date End Date Evelyn Ledesma FNP PCP - General Family Medicine 03/15/22 04/25/23 Oralia Aguila MD [address] [place] [address] [phone] PCP - General Family Medicine 04/26/23 01/01/24 Zeinab Sykes MD [address] [place] [address] [phone] PCP - General Internal Medicine 01/02/24 Tomeka Martins Pharmacy SalespersonBilingual Social Worker 10/27/23 [facility] 11/06/24 documented as of this encounter
--- OUTSIDE RECORDS SUMMARY | 2025-02-28 09:27 | XMS_ITS | Clinical Summary ---
Author Organization [facility] it Address [address] [place] [address] Care Team Providers Care Executive Producer Name Role Phone Meryl Montes Primary Care Provider Surgical History Surgery Date Site/Laterality Comments BREAST REDUCTION PROCEDURE: CT BREAST REDUCTION BACK SURGERY PROCEDURE: HISTORICAL BACK SURGERY; COMMENT: L4-5 rt L5-S1 decomp 05/26/18 Medical History Medical History Date Comments Asthma DX:Asthma Diabetes mellitus type 2, co ntrolled, with complications (CMS/HCC V24, CMS/HCC V28) DX:Diabetes mellitus type 2, controlled, with complications ([facility]) Essential hypertension DX:Essent ial hypertension Depressive disorder [...] 2) 11/05/2009 Colorectal Cancer Screening: Colonoscopy 06/27/2022 Hepatitis C Screening 06/27/2022 Osteoporosis Screening (Bone Density Screening) 06/27/2022 Social Influencers of Health Screening 06/27/2022 COVID-19 Vaccine (1 - 2023-2 5 season) 2024 Depression Screening 07/18/2024 Falls Risk Assessment 11/05/2024 Influenza Vaccine (#1) 2025 RSV Immunization Adult Patie nts (1 [...] age to complete this topic Care Teams Executive Producer Relationship Specialty Start Date End Date Meryl Montes [address] [place] [phone] PCP - General 05/07/22
--- OUTSIDE RECORDS SUMMARY | 2025-02-28 09:27 | XMS_ITS | Encounter Summary ---
Author Organization [facility], Address [address] [place] [address] Phone Care Team Providers Care Golf Ball Marker Name Role Phone Evelyn Rodriguez Primary Care Provider Silvana vailable Encounter Details Date Type Department Care Team (Late st Contact Info) Description 02/18/2023 Documentation Only [facility], [address] [place] [address] Xiao Sheppard [address] [place] [address] Social History Tobacco Use Types [...] on filedocumented in this encounter Care Teams Golf Ball Marker Relationship Specialty Start Date End Date Evelyn Rodriguez FNP PCP - General 02/18/23 documented as of this encounter
== END 2025-02-28 09:33 | disposition home or self-care (01) ==
LOC: HO.HWS 09:06
PROVIDERS: PCP Internal Medicine; Visit Provider Obstetrics & Gynecology
DX: D25.9 Leiomyoma of uterus, unspecified (principal)
CPT/HCPCS: 99213

== ENCOUNTER → 2025-02-28 09:00 | Outpatient (BNVA) | payer OTHER, SELFPAY | PROVIDERS: PCP Internal Medicine; Visit Provider Obstetrics & Gynecology | DX: D25.9 Leiomyoma of uterus, unspecified (principal) | CPT/HCPCS: 99212 ==

== ENCOUNTER 2025-03-26 11:07 | Outpatient (AMB) | payer MEDICARE, MEDICAID, SELFPAY ==
--- NOTE | 2025-03-26 11:16 | MHC.OFFVISCO ---
Intake Intake Visit Reasons: 6/8 wks f/u Allergies No Known Drug Allergies Allergy (Unknown, Verified 02/28/25 09:21) none pineapple (PINEAPPLE) Allergy (Unknown, Verified 02/28/25 09:21) TONGUE SWELLS latex Allergy (Verified 02/28/25 09:21) Unknown Anti-Coag Initial Assessment Social Hx Patient Tobacco Use Status: Never used Tobacco alcohol intake: never Alcohol intake frequency: does not drink Coding
--- NOTE | 2025-03-26 11:16 | MHC.OFFVIS ---
Vital Signs 03/26/25 11:17 Height 5 ft 3 in Weight 198 lb BMI 35.1 BP 146/77 H Blood Pressure Location Rt brachial Position Sitting Pulse 76 Intake Visit Reasons: 6/8 wks f/u Intake Note: Rhonda presents in office today in follow up of constipation. CC: Per patient the lactulose did not work for her because she did not have control of her BM and it was too strong. Patient states that she believes that she is due for colonoscopy but hasn't been scheduled yet. Clock And Watch Assembler Required: Yes Clock And Watch Assembler Language: South African Allergies No Known Drug Allergies Allergy (Unknown, Verified 03/26/25 11:30) none pineapple (PINEAPPLE) Allergy (Unknown, Verified 03/26/25 11:30) TONGUE SWELLS latex Allergy (Verified 03/26/25 11:30) Unknown HPI HPI 6/8 wks f/u: Details: Assessment & Plan (1) Rectal spasm: Code(s): K59.4 - Anal spasm Category: Medical (2) Irritable bowel syndrome with constipation: Code(s): K58.1 - Irritable bowel syndrome with constipation Category: Medical (3) Adenomatous colon polyp: Comment: Repeat asymptomatic colonoscopy- 3 years-2023 Code(s): D12.6 - Benign neoplasm of colon, unspecified Category: Medical (4) Rectal leakage: Code(s): R15.9 - Full incontinence of feces Category: Medical Plan [place] African #[id number] She prefers the acid bath mixer camera not point at her She continues to this day on milk of magnesia and dicyclomine. (She has quite a bit of rectal leakage currently of uncertain origin. To date, she says her power generation technician has not found any overt vaginal problems but it is unclear whether they actually did an exam for cystocele/rectocele.Depending on her response there is the possibility of rectal incompetence and we could consider something like a balloon expulsion test. However I would have to send her to different institution for this. She did not do well with senna going on with the assumption that she may have incomplete evacuation) Her sx are the same, the MOM did not help with the sx, In fact, she feels her CIC has worsened, but the senna gave her diarrhea. She continues to have rectal leakage but only with liquid stools that is preceded by pain and then I can't hold it. She does not have rectal incontinence of solid stools, but she does have stooling that will continues to come down after wiping that seems to indicate incomplete evacuation. ROV 6-8 weeks. COLONOSCOPY not yet contacted but tracking note is in chart BIOPSY Medications: New lactulose 20 grams (30 mL) PO BID 3,785 mL 3RF K58.1 - Irritable bowel syndrome with constipation Discontinued peg 3350-electrolytes 236-22.74-6.74 -5.86 gram (Golytely) until fecal effluent is clear; do not exceed a total volume of 2,000 mL Discontinued Reason: Patient no longer taking 240 mL PO Q10M 1 day 4,000 mL 0RF Z12.11 - Encounter for screening for malignant neoplasm of colon magnesium hydroxide (Milk of Magnesia) Discontinued Reason: Doctor's Order 5 mL PO BEDTIME 355 mL 6RF K58.1 - Irritable bowel syndrome with constipation TODAY'S VISIT COUNTS INCLUDE 234 BEDS AT THE [facility] Medical History (Updated 03/26/25 @ 15:52 by TOMÁS Houser) Irritable bowel syndrome with constipation Environmental allergies Hypertension Primary osteoarthritis of left knee Primary osteoarthritis of right knee Hemorrhoids Diverticulosis large intestine w/o perforation or abscess w/o bleeding Encounter for screening colonoscopy Preoperative cardiovascular examination HART (dyspnea on exertion) Epigastric pain Chronic cough Gastric outlet obstruction Complications of bariatric procedures Pre-syncope Encounter for well woman exam with routine gynecological exam Postmenopausal bleeding Elevated cholesterol Full dentures Low back pain COVID-19 vaccine series completed Asthma Palpitations Diabetes mellitus Obesity Erosive osteoarthritis Primary osteoarthritis of knees, bilateral Surgical History H/O perineoplasty H/O bariatric surgery Status post total right knee replacement History of bladder surgery History of total bilateral knee replacement Hx of colonoscopy Hx of reduction mammoplasty Hx of tonsillectomy History of H/O Spinal surgery Family History Mother Hx of acute arthritis Father History of Parkinson's disease Social History Household Members Other:: Daughter Housing: House Are you a primary student career development specialist to a significant other at home: No Do you presently have visiting nurse or other home services: No Unable to assess alcohol history related to: Unknown Alcohol intake: never Patient Tobacco Use Status: Never used Tobacco Current occupational status: disabled Current occupation: rt handed Sexual orientation: Straight/Heterosexual Gender identity: Female Review of Systems Const Denies fatigue, Denies fever(s), Denies night sweats, Denies poor appetite and Denies weight loss ENT Reports Normal hearing present, Denies dental pain, Denies dysphagia, Denies hearing loss, Denies mouth pain, Denies odynophagia, Denies throat swelling, Denies tongue swelling and Reports other (Dentition adequate) Card Reports no additional complaints Resp Reports no additional complaints GI Details: Fecal smearing of solid stools Denies abdominal pain, Denies melena, Denies bloating, Denies hematochezia, Denies constipation, Denies GI cramping, Denies dysphagia, Denies excessive flatus, Denies early satiety, Denies heartburn, Denies diarrhea, Denies nausea, Denies odynophagia, Denies vomiting and Denies hematemesis Skin/Breast Denies pruritus, Denies lesions, Denies rash and Denies jaundice Neuro Reports Normal hearing present and Denies Abnormal speech present Endo Denies fatigue Aller/Immun Denies throat swelling and Denies tongue swelling Physical Exam Vital Signs: Last Vital Signs Pulse 76 03/26/25 11:17 BP 146/77 H 03/26/25 11:17 BMI result Body Mass Index 35.1 Const General: cooperative, no acute distress, well developed and well groomed Nutritional Appearance: well nourished and obese Orientation/consciousness: oriented to person, oriented to place and oriented to time Limitations: language barrier HEENT Head: Yes normocephalic and Yes atraumatic Eyes General: appearance normal, both eyes and all related structures Pupils: Equal, round and reactive pupils present Neck Neck: Yes normal visual inspection and Yes no lymphadenopathy Thyroid: Thyroid normal Resp Effort & Inspection: normal respiratory effort and able to speak in complete sentences Auscultation: clear to auscultation bilaterally Cardio Rate: regular rate Rhythm: regular rhythm Heart sounds: Normal, physiologic split S2 sound present Peripheral pulses: radial pulses present and posterior tibial pulses present GI Inspection: No distended, Yes Abdominal panniculus present and Yes obesity Palpation (GI): Soft to palpation, nontender, no guarding, not rigid and No hepatosplenomegaly present Percussion: Yes normal to percussion Auscultation: normal bowel sounds Rectal Exam - Female: deferred Skin General skin exam: no rashes or lesions noted, turgor normal, skin not dry, no jaundice, No spider nevi and no striae Rashes: no rashes Nails: normal Neuro General: oriented to person, oriented to place and oriented to time Cranial nerves: Yes Equal, round and reactive pupils present and Yes Normal hearing present Speech: No Abnormal speech present Extrem General: Yes normal to inspection, No clubbing, No cyanosis and No edema Psych Appearance: grossly normal and well kempt Mental Status: mental status grossly normal Speech and movement: Normal speech and movement present Affect: normal affect Attitude: cooperative Thought process: Normal thought process present and not confabulating Thought content: Normal thought content present Insight: Fair insight present (Psych) and Limited insight present (Psych) Judgement: Fair judgement present (Psych) and Limited judgement present (Psych) Assessment & Plan Assessment & Plan (1) Rectal leakage: Code(s): R15.9 - Full incontinence of feces Category: Medical Plan [place] #Charley She prefers the camera not point at her for acid bath mixer Her current GI regimen consists of dicyclomine in lactulose Unfortunately, the lactulose also caused her excessive diarrhea as did all of the other things that we try including senna, MiraLax, bisacodyl, Linzess, milk of magnesia, I know lactulose. Yet she still has incomplete evacuation of formed stools that causes fecal smearing and a need for constant cleansing of the perirectal area. So far have not been able to find a good cause or treatment for this. She says she eats a lot of fiber through her fruits and declines a fiber supplement. At this point I asked her to speak to her power generation technician about a bimanual exam to see if a rectocele or vaginal prolapse could be part of the problem. She also has an upcoming colonoscopy but I am uncertain how diagnostic this will be. For now we will have no more interventions at this time. Return office visit in 6 months or after the colonoscopy COLONOSCOPY not yet contacted but tracking note is in chart BIOPSY Medications: New peg 3350-electrolytes 236-22.74-6.74 -5.86 gram (Golytely) until fecal effluent is clear; do not exceed a total volume of 2,000 mL 240 mL PO Q10M 4,000 mL 0RF 1 day Z12.11 - Encounter for screening for malignant neoplasm of colon Discontinued lactulose Discontinued Reason: Doctor's Order 20 grams (30 mL) PO BID 3,785 mL 3RF K58.1 - Irritable bowel syndrome with constipation Coding Level of Care Code Est Pt Level 3 (56272) Diagnoses Rectal leakage R15.9
[2025-03-26 11:17] VITALS: BP 146/77; PULSE 76; BMI 35.1
--- OUTSIDE RECORDS SUMMARY | 2025-03-26 13:30 | XMS_ITS | Encounter Summary ---
Author Organization [employer] Address [address] [place] [address] [address] [place] [address] Care Team Providers Care Supervisor Porcelain Department Name Role Phone Evelyn Ledesma Primary Care Provider Oralia Dukes MD Primary Care Provider [phone] Zeinab Sykes MD Primary Care Provider + Encounter Details Date Type Department Care Team ([facility] Contact Info) Description 10/22/2022 Orders Only [facility] [address] [place] [address] Evelyn Ledesma FNP Social History Tobacco Use Types Packs/Day [...] Department Care Team (Late Contact Info) Description 03/27/2025 11:15 AM EDT Office Visit [facility] ADULT DENTAL [address] [place] [address] Gay Thompson DDS [address] [place] [address] 04/02/2025 11:30 AM EDT Office Visit [address] [address] Zeinab Sykes MD [address] [place], [place] [phone] 05/28/2025 11:00 AM EST Office Visit [address] [address] documented as of this encounter Visit Diagnoses Not on filedocumented in this encounter Care Teams Supervisor Porcelain Department Relationship Specialty Start Date End Date Evelyn Ledesma FNP PCP - General Family Medicine 03/15/22 04/25/23 Oralia Aguila MD [address] [place] [address] [id number] PCP - General Family Medicine 04/26/23 01/01/24 Zeinab Sykes MD [address] [place] [address] [phone] PCP - General Internal Medicine 01/02/24 Tomeka Martins Police SergeantSenior Clinical Study Manager 10/27/23 Elara Caring 11/06/24 documented as of this encounter
--- OUTSIDE RECORDS SUMMARY | 2025-03-26 13:30 | XMS_ITS | Encounter Summary ---
Author Organization [employer] Address [address] [place] [address] 7[address] [place] [address] Care Team Providers Care Elementary Special Education Teacher Name Role Phone Evelyn Ledesma Primary Care Provider Silvana Oralia Alamo MD Primary Care Provider [phone] Zeinab Sykes MD Primary Care Provider + Encounter Details Date Type Department Care Team ([facility] Contact Info) Description 08/20/2022 Orders Only [facility] [address] [place], [place] [phone] Karen Henderson FNP Social History Tobacco Use [...] Upcoming Encounters Date Type Department Care Team ([facility] Contact Info) Description 03/27/2025 11:15 AM EDT Office Visit [facility] ADULT DENTAL [address] [place], [place] [phone] Gay Thompson DDS [address] [place] [address] 04/02/2025 11:30 AM EDT Office Visit [facility] [place] [address] [place] [address] 05/28/2025 11:00 AM EST Office Visit [facility] [place] [address] documented as of this encounter Visit Diagnoses Not on filedocumented in this encounter Care Teams Elementary Special Education Teacher Relationship Specialty Start Date End Date Evelyn Ledesma FNP PCP - General Family Medicine 03/15/22 04/25/23 Oralia Aguila MD [address] [place], [place] [phone] PCP - General Family Medicine 04/26/23 01/01/24 Zeniab Sykes MD [address] [place], [place] [phone] PCP - General Internal Medicine 01/02/24 Tomeka Martins Food WriterElectrical Engineering Drafting Officer 10/27/23 El[facility] 11/06/24 documented as of this encounter
--- OUTSIDE RECORDS SUMMARY | 2025-03-26 13:30 | XMS_ITS | Encounter Summary ---
Author Organization [employer] Address [address] [facility] [address] [place] [address] Care Team Providers Care Dice Spotter Name Role Phone Evelyn Ledesma Primary Care Provider Oralia Dukes MD Primary Care Provider [phone] Zeinab Sykes MD Primary Care Provider + Reason for Visit * Reason Onset Date Comments Appointment Request 12/20/2022 Encounter Details Date Type Department Care Team (Late st Contact Info) Description 12/20/2022 Telephone [facility] [address] [place] [address] Evelyn Ledesma FNP Appointment Request Social History Tobacco Use Types [...] Notes * Telephone Encounter - Aurelia Haley Anderson - 12/20/2022 10:16 AM EDT Tc from pt requesting a call from a nurse in regards to pre-op appt scheduled on January 14 2023. ( Ptwould like to change a appt for an earlier day) Please contact pt at [phone] documented in this encounter Plan of Treatment Upcoming Encounters Date Type Department Care Team (Late st Contact Info) Description 03/27/2025 11:15 AM EDT Office Visit [facility] [address] [place] [id number] Gay Thompson, DDS [address] [place] [address] 04/02/2025 11:30 AM EDT Office Visit [facility] [address] [place] [id number] Zeinab Sykes MD [address] [place] [phone] 05/28/2025 11:00 AM EST Office Visit [address] [address] documented as of this encounter Goals Goal Patient Goal Type Associated Problems Recent Progress Patient-Stated? Author Patient will manage their medication General On track( 023 11:18 AM EDT) Citlali Ocampo, Anoop Note: Began medboxes. Goal achieved 11/19/22. Patient graduated from [employer]. documented as of this encounter Visit Diagnoses Not on filedocumented in this encounter Care Teams Dice Spotter Relationship Specialty Start Date End Date Evelyn Ledesma FNP PCP - General Family Medicine 03/15/22 04/25/23 Oralia Aguila MD [address] [place] [id number] PCP - General Family Medicine 04/26/23 01/01/24 Zeinab Sykes MD [address] [place] [phone] PCP - General Internal Medicine 01/02/24 Tomeka Martins Under Water AssistantHealth Officer 10/27/23 Tj [facility] 11/06/24 documented as of this encounter
--- OUTSIDE RECORDS SUMMARY | 2025-03-26 13:30 | XMS_ITS | Clinical Summary ---
Author Organization [employer] Address [address] [place] [address] Care Team Providers Care Youtuber Name Role Phone Zeinab Sykes MD Primary Care Provider + Allergies Active Allergy Reactions Criticality Noted Date Comments Latex Rash Low 06/09/2022 Pineapple Angioedema 12/15/2022 Medications * This document contains information received from the source organization and may not represent a complete record from that organization. ammonium lactate (Lac-Hydrin) 12 % lotion apply [...] ONCE DAILY NEEDED. DECREASE WHEN SYMPTOMS IMPROVE Active Diclofenac Sodium 1 % gel Apply [...] in the morning. Active oxymetazoline (Afrin Nasal [place]) 0.05 % nasal spray Administer 2 sprays [...] nausea or vomiting. 12 tablet 024 Active atorvastatin (Lipitor) 20 MG tablet Take 1 tablet (20 mg) by mouth at bedtime. 90 tablet 3 024 Active amLODIPine-valsart an (Exforge) 10-320 MG tablet TAKE 1 TABLET BY MOUTH EVERY MORNING 90 tablet 3 024 Active FreeStyle lancetsIndications :Type 2 diabetes mellitus without complication, without long-term current use of insulin ([facility]) 1 each by Other route Once per day. USE TO TEST BLOOD SUGAR ONCE A DAY 100 each 3 024 Active glucose blood (FREESTYLE LITE) test stripIndications:T ype 2 diabetes mellitus without complication, without long-term current use of insulin (CMS/HCC) USE TO TEST BLOOD SUGAR ONCE A DAY 100 each 3 024 Active sodium chloride ([place] Nasal [place]) 0.65 % nasal sprayIndications:A cute nasopharyngitis Administer 1 spray into each nostril if needed for congestion. 30 mL 1 025 2025 Active Alcohol Swabs (Alcohol Prep) padsIndications:Ty pe 2 diabetes mellitus without complication, without long-term current use of insulin ([facility]) USE TWICE DAILY 100 each 5 Active albuterol (2.5 MG/3ML) 0.083% nebulizer solution Take 3 mL (2.5 mg) by nebulization every 4 (four) hours if needed for wheezing or shortness of breath (Maximum 4 treatments per day). 75 mL 2 025 2025 Active chlorthalidone (Hygroton) 25 MG tablet TAKE 1/2 TABLET BY MOUTH EVERY MORNING 45 tablet 3 025 Active melatonin 10 MG tablet Take 1 tablet (10 mg) by mouth at bedtime. 90 tablet 1 Active ergocalciferol (Vitamin D2) 1.25 MG (12499 UT) capsule Take 1 capsule (1.25 mg) by mouth 1 (one) time per week. 12 capsule 1 Active nystatin (Mycostatin) ointment Apply topically 2 times daily. Apply to the affected area two times a day- corner of the mouth. 15 g 1 025 2025 Active celecoxib (CeleBREX) 100 MG capsuleIndications :Left hand pain TAKE 1 CAPSULE BY MOUTH TWICE DAILY 60 capsule 3 Active cetirizine (ZyrTEC) 10 MG tabletIndications: Seasonal allergic rhinitis, unspecified trigger TAKE 1 TABLET BY MOUTH EVERY MORNING 90 tablet 3 025 Active lidocaine (Lidoderm) 5 % patchIndications:O ther intervertebral disc displacement, lumbar region APPLY 1 PATCH TOPICALLY TO SKIN, LEAVE ON FOR 12 HOURS AND OFF FOR 12 HOURS DIRECTED 30 patch 3 025 Active oxyCODONE-acetamin ophen (Percocet) 5-325 [...] AND BEDTIME 90 capsule 3 025 Active gabapentin (Neurontin) 300 MG capsuleIndications :Neuropathy TAKE 1 CAPSULE BY MOUTH THREE TIMES DAILY IN THE MORNING, EVENING, AND BEDTIME 90 capsule 3 025 2024 Discontinued oxyCODONE-acetamin ophen (Percocet) 5-325 MG tabletIndications: Other intervertebral disc displacement, lumbar region Take 1 tablet by mouth every 6 (six) hours if needed for severe pain for up to 28 days. Do not start before January 29, 2025. 112 tablet 025 2024 Discontinued(R eorder (will not trigger notification to Pharmacy)) Active Problems Problem Noted Date Diagnosed Date Dental plaque 01/04/2025 Generalized gingival recession 01/04/2025 Gingival bleeding 01/04/2025 Excessive attrition of teeth 01/04/2025 Edentulism 01/04/2025 Vitamin D deficiency 10/09/2024 Assessment & Plan [...] bx, I will fu or refer to [facility] after US reports. Left foot pain 03/29/2024 Assessment & Plan (03/29/2024 2:48 PM EDT): Likely sec to lumbar radiculopathy. Order Xray foot to ro osteophyte or neuroma. Refer to PT and fu w me in 3-4m No change in meds. Lumbar back pain with radicu lopathy affecting left lower extremity 03/29/2024 Assessment & Plan (02/28/2025 9:47 AM EDT): Known DDD L-spine with radiculopathy sxs 05/26/2018 - Lumbar decompression surgery: L4-5 and right L5-S1 decompressive laminectomy at [facility] - surgeon Dr. Melia RIOS request for 10-in-1 pillow on 07/31/24 (not approved by insurance) Assessment & Plan (10/23/2024 2:47 PM EDT): Known DDD L-spine with radiculopathy sxs 05/26/2018 - Lumbar decompression surgery: L4-5 and right L5-S1 decompressive laminectomy at [facility] - surgeon Dr. Melia RIOS request for 10-in-1 pillow on 07/31/24 (not approved by insurance) Assessment & Plan (09/27/2024 11:23 AM EDT): Known DDD L-spine with radiculopathy sxs 05/26/2018 - Lumbar decompression surgery: L4-5 and right L5-S1 decompressive laminectomy at [facility] - surgeon Dr. Melia RIOS request for 10-in-1 pillow on 07/31/24 (not approved by insurance) Assessment & Plan (07/31/2024 4:58 PM EST): Known DDD L-spine with radiculopathy sxs 05/26/2018 - Lumbar decompression surgery: L4-5 and right L5-S1 decompressive laminectomy at [facility] - surgeon Dr. Melia Pedroza DME request for 10-in-1 pillow on 07/31/24 Assessment & Plan (05/29/2024 5:18 PM EST): Known DDD L-spine with radiculopathy sxs 05/26/2018 - Lumbar decompression surgery: L4-5 and right L5-S1 decompressive laminectomy at [facility] - surgeon Dr. Melia Pedroza Assessment [...] current use of opiate analgesic 2023 Overview (02/28/2025): Medication: Percocet 5-325mg Q6H PRN Indication: herniation of left side of L5-L5 intervertebral disc, s/p vagus nerve stimulator, neuropathy Last [employer] ESTATE ADMINISTRATOR Agreement: 02/26/25 Tier 3: REAL ESTATE ADMINISTRATOR visit Q4-6 months. (Last evaluated Jul 2024 by PCP - Dr. Sykes) Assessment & Plan (02/28/2025 9:46 AM EDT): -Good engagement and participation with [...] Group - WNL 10/23/24: Group - WNL 02/26/25: Group - WNL Assessment & Plan (10/23/2024 2:48 PM EDT): [...] Fatty liver 02/04/2024 [place] (03/29/2024[place] [facility] [place] showed Fatty liver. Normal LFTs/albumin Assessment & Plan (03/29/2024 1:40 PM EDT): LFTs remain stable/normal. Dx d/w patient and advised her to continue tight control of DM, weight reduction, try to cut down on opiates and fu with me. I also advised her to avoid ETOH or recreational substances. Seborrheic dermatitis of scalp 01/02/2024 Overview (01/02/2024): Seen at [facility] dermatology Assessment & Plan (03/20/2024 3:50 PM EDT): Generally well controlled, encouraged to continue fu with [facility] derm Refill for fluocinolone today. Housing insecurity 01/02/2024 Assessment & Plan (08/15/2024 1:36 PM EST): See above. Applying for housing and need handicap access. Assessment & Plan (03/20/2024 3:51 PM EDT): Awaiting housing application, lives in abasement FU with [facility]. Stage 3a chronic kidney disease 11/01/2023 Assessment [...] pseudophedrine short term. Will refer her to diversified crops farmer again so she can be evaluated for [...] albuterol prn. Will refer her back to diversified crops farmer. RUQ pain 10/05/2023 Assessment & Plan (11/01/2023 [...] ballon inside the gastric body placed in [place] for bariatric procedure about 20 cm in [...] lumbar r egion 05/17/2017 Overview (09/17/2022): On REAL ESTATE ADMINISTRATOR contract. discussed tapering percocet options, not interested.. Referred to HIM forms dept for handicap plackards documents. Referred to [facility] for polypharmacy education. Continue medications as prescribed. Discussed Narcan. Encouraged nonpharmacologic pain relief strategies. will f/up next visit Assessment & Plan (03/20/2024 3:48 PM EDT): On REAL ESTATE ADMINISTRATOR contract. discussed tapering percocet options, not interested, it apparently offers partial enough improvement of sxs. Patient is aware that mcc use of opiates can cause hyperalgesia, liver toxicity, EDITOR BOOK toxicity, increase anxiety, among others. Will continue to work with chronic pain management [facility]. Continue medications as prescribed. Discussed Narcan. [...] elevated BP readings.. Referred to [facility] for polypharmacy education. Continue medications as [...] to enails with type 2 diabetes mellitus ([facility]) 05/17/2017 03/29/2024 Encounters * This document contains information received from the source organization and may not represent a complete record from that organization. Date Type Department Care Team Description 03/19/2025 11:00 AM EDT Office Visit [facility] [address] [place] [address] Watkins-Maynard, Gay, DDS Edentulism (Primary Dx); Partially edentulous mandible, class I edentulism 03/08/2025 10:00 AM EDT Office Visit [facility] [address] [place] [address] Watkins-Maynard, Gay, DDS Edentulism (Primary Dx); Partially edentulous mandible, class I edentulism 03/06/2025 Refill [facility] [address] [place] [address] Zeinab Sykes MD Neuropathy 02/27/2025 Refill [facility] [address] [place] [address] Zeinab Sykes MD Other intervertebral disc displacement, lumbar region 02/26/2025 11:00 AM EDT Office Visit [facility] [address] [place] [address] Alma Jha, RN DIABETES Lumbar back pain with radiculopathy affecting left lower extremity (Primary Dx); Long-term current use of opiate analgesic 02/26/2025 Travel 02/21/2025 Telephone [facility] [address] [place] [address] Zeinab Sykes MD Prior Authorization ([facility]: Lidocaine 5% Patch) 02/20/2025 Refill [facility] [address] [place] [phone] Zeinab Sykes MD Other intervertebral disc displacement, lumbar region 02/18/2025 Telephone [facility] [address] [place] [phone] Zeinab Sykes MD Referral 02/18/2025 Telephone [facility] [address] [place] [phone] Zeinab Sykes MD Durable Medical Equipment (DME Order: Multiple Items) 02/16/2025 Refill [facility] [address] [place] [phone] Zeinab Sykes MD Neuropathy 01/28/2025 Refill [facility] [address] [place] [address] Zeinab Sykes MD Other intervertebral disc displacement, lumbar region 01/21/2025 Telephone [facility] [address] [place] [phone] Scarlett Gibbs RN Rescheduled chronic pain group 01/15/2025 Refill [facility] [address] [place] [phone] Janessa Jolley MD Seasonal allergic rhinitis, unspecified trigger 01/12/2025 Refill [facility] [address] [place] [phone] Zeinab Sykes MD Left hand pain 01/09/2025 Telephone [facility] [address] [place] [phone] Zeinab Sykes MD chart prep 01/04/2025 11:00 AM EDT Office Visit [facility] [address] [place] [address] Fabi Hogue Dental plaque (Primary Dx); Generalized gingival recession; Gingival bleeding; Excessive attrition of teeth; Edentulism; Encounter for dental examination 01/02/2025 Patient Outreach [facility] [address] [place] [phone] Zeinab Sykes MD Care Coordination ([facility] outreach for SDOH PT-1 and food needs-referral completed /) 01/02/2025 Patient Outreach [address] [phone] Zeinab Sykes MD Pre-visit Planning (SDOH screening is positive Tobacco screening is negative) 12/25/2024 Refill [facility] [address] [place], [place] [phone] Zeinab Sykes MD Other intervertebral disc displacement, lumbar region from Last 3 Months Immunizations Immunization Administration [...] today? I have tessa de la rosa 01/02/[address] you li ve. Do you have problems with any of the following? None of the above 01/02/2025 Food Insecurity Answer Date Recorded Within the past 12 months, y ou worried that your food would run out before you got money to buy more: Sometimes True 2024 Within the past 12 months,th e food you bought just didn't last and you didn't have enough money to get more: Sometimes True 01/02/2025 Transportation Answer Date Recorded In the past 12 months, has l ack of transportation kept you from medical appts, meetings, work or from getting things needed for daily living? No 01/02/2025 Utilities Answer Date Recorded In the past 12 months, has t he electric, gas, oil or water company threatened to shut off services in your home? No 01/02/2025 Depression Answer Date Recorded Patient Health Questionnaire-2 Score 6 08/15/2024 Internet Access Answer Date Recorded Internet Access Q1 No 01/02/2025 Internet Access Q2 I cannot afford it 01/02/2025 Comments No Sex and Gender Information Value Date Recorded Sex Assigned at Female 05/17/2022 10:32 AM EDT Legal Sex Female 10:32 AM EDT Gender Identity Female 05/17/2022 10:32 AM EDT Sexual Orientation Straight 05/17/2022 10 :32 AM EDT Last Filed Vital Signs Vital Sign Reading Time Taken Comments Blood Pressure 136/72 01/04/2025 11:31 AM EDT Pulse 74 10/09/2024 11:56 AM EDT Temperature 35.7 C (96.3 F) 10/09/2024 11:56 AM EDT Respiratory Rate 20 10/09/2024 11:56 AM EDT [...] Description 03/27/2025 11:15 AM EDT Office Visit [facility] [address] [place] [address] Gay Thompson DDS [address] [place] [address] 04/02/2025 11:30 AM EDT Office Visit [facility] [address] [place] [phone] Zeinab Sykes MD [address] [place] [address] 05/28/2025 11:00 AM EST Office Visit [address] [address] Health Maintenance Due Date Last Done Comments CT Colonography 1960 Dental X-Ray: Bitewings 1960 FIT DNA/Cologuard 1960 FIT 1960 FOBT 1960 Sigmoidoscopy 1960 Eye Exam 11/05/1969 Alcohol/Substance Use Screening 1971 Hepatitis A Vaccines (1 of 2 - Risk 2-dose series) 11/05/1978 Diabetes: Urine Protein Screening 03/08/2023 03/08/2022, 09/16/2020 Colonoscopy 2023 11/05/2020 Colorectal Cancer Screening 2023 Mammogram 03/15/2024 03/15/2022, 01/17, 10/07/2020 Lipid Panel 01/05/2025 01/06/2024, 05/19, 09/16/2020 Depression Monitoring 02/12/2025 08/15/2024, 025 COVID-19 Vaccine ( season) 2025 08/24/2022, 01/15/2022, 08/04/2021, Additional history exists Influenza Vaccine (#1) 2025 , 07/28/2020, 04/05/2018 Diabetes: Foot Exam 03/29/2025 03/29/2024, 03/29/2024, 03/29/2024, Additional history exists Diabetes: Hemoglobin A1C 04/11/2025 025, 03/29/2024, 10/05/2023, Additional history exists Cervical Cancer Screening 07/07/2025 Dental Oral Exam 07/07/2025 01/04/2025, 11/2023, 07/22/2023 Dental Prophylaxis 07/07/2025 01/04/2025, 0 01/20/2024, 07/22/2023 HPV/Cotest 07/07/2025 07/07/2020 SDOH Screening 01/02/2026 01/02/2025 Tobacco Screening 03/08/2026 03/08/2025 Pap Smear 06/01/2027 06/01/2024, 07/07/2020 Dental X-Ray: Full Mouth 01/06/2028 01/04/2025, 10/16 DTaP/Tdap/Td Vaccines (2 - Td or Tdap) [...] medboxes. Goal achieved 11/19/22. Patient graduated from [facility]. Procedures Procedure Name Priority Date/Time Associated Diagnosis Comments BITE REGISTRATION Routine 03/19/2025 11: 00 AM EDT Edentulism Partially edentulous mandible, class I edentulism DENTURE IMPRESSION Routine 03/08/2025 10 :00 AM EDT Edentulism Partially edentulous mandible, class I edentulism POCT DIDIER-14 URINE DRUG SCREEN Routine 02/26/2025 11:46 AM EDT Lumbar back pain with radiculopathy affecting left lower extremity US PELVIS TRANSVAGINAL Routine 01/04/2025 4:17 PM EDT COMPREHENSIVE PERIODONTAL EVALUATION - NEW OR ESTABLISHED PATIENT Routine 01/04/2025 11:00 AM EDT Dental plaque Generalized gingival recession Gingival bleeding Excessive attrition of teeth Edentulism Encounter for dental examination PERIODIC ORAL EVALUATION - ESTABLISHED PATIENT Routine 01/04/2025 11:00 AM EDT Dental plaque Generalized gingival recession Gingival bleeding Excessive attrition of teeth Edentulism Encounter for dental examination CASE PRESENTATION, DETAILED AND EXTENSIVE TREATMENT PLANNING Routine 01/04/2025 11:00 AM EDT Dental plaque Generalized gingival recession Gingival bleeding Excessive attrition of teeth Edentulism ORAL HYGIENE INSTRUCTIONS Routine 01/04/2025 11:00 AM EDT Dental plaque Generalized gingival recession Gingival bleeding Excessive attrition of teeth Edentulism PROPHYLAXIS - ADULT Routine 01/04/2025 1 1:00 AM EDT Dental plaque Gingival bleeding PANORAMIC RADIOGRAPHIC IMAGE Routine 01/04/2025 11:00 AM EDT Dental plaque Generalized gingival recession Gingival bleeding Excessive attrition of teeth Edentulism 26 DL COMPOSITE FILLING Routine 01/04/2025 12:00 AM EDT POCT GLYCATED HEMOGLOBIN, TOTAL Routine 10/09/2024 12:03 PM EDT Type 2 diabetes mellitus without complication, without long-term current use of insulin (CMS/HCC) PAP SMEAR Routine 06/01/2024 2:43 PM EST Postmenopause bleeding HEPATITIS PANEL, GENERAL Routine 01/06/2024 12:38 PM [...] Recently Relevant to Health Maintenance Results * (ABNORMAL) POCT DIDIER-14 Urine Drug Screen (02/26/2025 11:46 AM EDT) THC Negative Negative Cocaine Screen, Urine Negative Negative Opiate Screen, Urine Negative Negative Methamphetamine Screen Urine Negative Negative Amphetamine Screen, Urine Negative Negative Benzodiazepines Screen, Urine Negative Negative Barbiturate Screen, Urine Negative Negative Methadone Screen, Urine Negative Negative Buprenophine Screen, Urine Negative Negative TCA, Urine Negative Negative MDMA Urine Negative Negative ng/mL Oxycodone Screen, Urine Positive(A) Negative Phencyclidine (PCP), Urine Negative Negative Propoxyphene, Urine Negative Negative Fentanyl, Urine Negative Negative Urine Urine specimen obtained by clean catch procedure / Unknown 02/26/2025 11:46 AM EDT Jasmyn Thakkar RN - 02/26/2025 11:46 AM EDT .UTOX cup Lot#[id number] Exp. 04/23/26 Internal Pass Control Alma Jha RN DIABETES POINT OF CARE TEST ENTER/EDIT ORDERABLES Final Result * US Pelvis Transvaginal (01/04/2025 4:17 PM EDT) Anatomical Region Laterality Modality Pelvis Ultrasound 01/04/2025 4:17 PM EDT Narrative 01/04/2025 6:21 PM EDT [place] [address] Ultrasound Report Signed Patient: Rhonda Fernández MR# : [id number] : 1960 Acct:[id number] Age/Sex: 64 / F ADM Date: 01/04/25 Loc: HO.US Attending Dr: Nolberto Quigley MD Ordering Physician: Nolberto Quigley MD Date of Service: 01/04/25 Procedure(s): US pelvic and transvaginal Accession Number(s): [id number] cc: Zeinab Sykes MD; Nolberto Quigley MD EXAMINATION: US PELVIS CLINICAL INFORMATION: Uterine leiomyoma COMPARISON: CT 10/04/2024 and ultrasound June 18, 2024 TECHNIQUE: Ultrasound of the pelvis is performed using both transabdominal and transvaginal transducers along with Doppler. Transvaginal imaging is performed due to inadequate visualization transabdominally. FINDINGS: Uterus: The uterus is retroflexed and measures 8.5 x 3.5 x 3.7 cm. The double wall endometrial thickness is 4 mm. The uterus is smooth in contour and has normal myometrial echogenicity. No visible fibroid. Adnexa: Both ovaries are visualized. There is normal color flow to the adnexa. There is no ovarian torsion. There is no pelvic ascites or fluid collection. Right ovary is not well seen. Possible right ovary measured 1.2 x 0.5 x 1.5 cm. Left ovary measures 1.3 x 1.0 x 2.8 cm. US/US pelvic and transvaginal IMPRESSION: No uterine masses were documented. Study was limited by body habitus. Electronically signed by: Dustin Wolff MD 01/04/2025 06:18 PM EDT Dictated By: Dustin Wolff MD Signed By: <Electronically signed by Dustin Wolff MD in OV> 01/04/25 1818 DD/ 1617 TD/TT: 01/04/25 1629 Bung Remover: Procedure Note Donotuseinterpreter, Image - 01/04/2025 [place] [address] Ultrasound Report Signed Patient: Karla Fernández# : [id number] : 1960Acct:[id number] Age/Sex: 64 / FADM Date: 01/04/25 Loc: HO.US Attending Dr: Nolberto Quigley MD Ordering Physician: Nolberto Quigley MD Date of Service: 01/04/25 Procedure(s): US pelvic and transvaginal Accession Number(s): [id number] cc: Zeinab Sykes MD; Nolberto Quigley MD EXAMINATION: US PELVIS CLINICAL INFORMATION: Uterine leiomyoma COMPARISON: CT 10/04/2024 and ultrasound June 18, 2024 TECHNIQUE: Ultrasound of the pelvis is performed using both transabdominal and transvaginal transducers along with Doppler. Transvaginal imaging is performed due to inadequate visualization transabdominally. FINDINGS: Uterus: The uterus is retroflexed and measures 8.5 x 3.5 x 3.7 cm. The double wall endometrial thickness is 4 mm. The uterus is smooth in contour and has normal myometrial echogenicity. No visible fibroid. Adnexa: Both ovaries are visualized. There is normal color flow to the adnexa. There is no ovarian torsion. There is no pelvic ascites or fluid collection. Right ovary is not well seen. Possible right ovary measured 1.2 x 0.5 x 1.5 cm. Left ovary measures 1.3 x 1.0 x 2.8 cm. US/US pelvic and transvaginal IMPRESSION: No uterine masses were documented. Study was limited by body habitus. Electronically signed by: Dustin Wolff MD 01/04/2025 06:18 PM EDT Dictated By: Dustin Wolff MD Signed By: <Electronically signed by Dustin Wolff MD in OV> 01/04/25 1818 DD/ 1617 TD/TT: 01/04/25 1629 Bung Remover: us [facility] External Provider IMG US PROCEDURES Final Result * (ABNORMAL) POCT HGB A1C (10/09/2024 12:03 PM EDT) Hemoglobin A1C 6.8(A) 4.0 - 6.0 % QC Media Lot # [id number] Lot# Expiration Date [id number] Blood 10/09/2024 12:0 3 PM EDT Zeinab Sykes MD POINT OF CARE TEST ENTER /EDIT ORDERABLES Final Result * Pap Smear (06/01/2024 2:43 PM EST) 06/01/2024 2:43 PM EST 06/04/2024 9:25 AM EST Narrative [facility] - 06/20/2024 7:51 AM EST ----- ------- Name: Rhonda Fernández Age/Sex: 63/F : 1960 Unit#: [id number] Attend Dr: Aisha Mcclain CNM Re06/01/24 Status: DEP REF Location: [facility] Disch: ----- ------- SPEC : [id number] RECD: 06/04/24 STATUS: HODA GARRETT NUM: [id number] DARWIN: 06/01/24-1443 [facility] DR: Aisha Mcclain CNM ENTERED: 06/04/24-1001 SP TYPE: Pap Smr OTHR DR: Zeinab Sykes MD ORDERED: Pap Smear Interpretation Satisfactory for evaluation. Negative for intraepithelial lesion or malignancy. No endocervical cells seen. Mild inflammation. HPV High Risk: Negative HPV Genotyping 16: Negative HPV Genotyping 18: Negative Clinical Information LMP: Postmenopausal Previous PAP test: Unknown date, WNL Material Received ThinPrep-Cervical Copies To: Zeinab Sykes MD [address] [address] Aisha Mcclain CNM [facility] [address] [place] [address] ----- ------- Signed (signature on file) INDERJIT Bloom (ASCP) 06/20/24 0751 ----- ------- END OF REPORT Generic External Data Provider LAB CYTOLOGY JERED STAFFORD Final Result [facility] [address] [place] [address] [phone] * (ABNORMAL) Lipid Panel with Reflex to Direct LDL (01/06/2024 12:38 PM EDT) Triglycerides 91 <150 mg/dL [facility] Comment:Desirable Triglyceri de: less than 150 mg/dLBorderline High Triglyceride 150-199 mg/dLHigh Triglyceride: 200-499 mg/dLVery High Triglyceride: greater than or equal to 5OO mg/dL Cholesterol 211(H) <200 mg/dL [facility] Comment:Desirable Cholestero l: less than 200 mg/dLBorderline High Cholesterol: 200-239 mg/dLHigh Cholesterol: greater than 239 mg/dL LDL Cholesterol Calculated 132(H) <100 mg/dL [facility] Comment:Desirable LDL: less than 100 mg/dLNear Optimal/Above Optimal LDL: 110- 129 mg/dLBorderline High LDL: 130-159 mg/dLHigh LDL: 160-189 mg/dLVery High LDL: greater than or equal to 190 mg/dL HDL Cholesterol 61 >40 mg/dL [facility] Comment:Desirable HDL: great er than 40 mg/dL Note: This HDL assay may give artificially low results in patients with liver disease. Blood 01/06/2024 12:3 8 PM EDT 01/06/2024 4:21 PM EDT us Zeinab Sykes MD LAB BLOOD ORDERABLES Fin al Result [facility] [address] [place] [address] [phone] * Hepatitis Panel, General (01/06/2024 12:38 PM EDT) Pathologist [facility] Hepatitis A IgM Nonreactive Nonreactive [facility] Comment:IgM antibodies to GUERIN V not detected; does not exclude earlyacute or recovered HAV infection. ~Hepatitis B Surface Antibody REACTIVE Nonreactive [facility] Comment:REACTIVE: > 11.99 mI U/mL Hepatitis B Core Antibody Nonreactive Nonreactive [facility] Hepatitis C Antibody Nonreactive Nonreactive [facility] Comment:Antibodies to HCV no t detected; does not exclude early acuteHCV infection. Hepatitis B Surface Ag Negative Negative [facility] Blood 01/06/2024 12:3 8 PM EDT 01/06/2024 4:21 PM EDT us Zeinab Sykes MD LAB BLOOD ORDERABLES Fin al Result Performing Organization Address City/[facility]/ZIP Co de Phone Number [facility] [address] [place] [phone] * Mammography Report 1 (03/15/2022 5:00 PM EDT) Anatomical Region Laterality Modality Breast Bilateral Mammography 03/15/2022 5:00 PM EDT Narrative 03/16/2022 8:33 AM EDT Refer to the Notes tab for result details [facility] Procedure: Mammography Report 1 Procedure Note ProviderParag MD - 10/10/2022 Refer to the Notes tab for result details [facility] Procedure: Mammography Report 1 us Evelyn Ledesma RN DIABETES IMG BI PROCEDURES Final Re sult * ALBUMIN, RANDOM URINE W/CREATININE (03/08/2022 3:04 PM EDT) Microalbumin Urine 1.2 See Note: mg/dL [facility] Comment: Reference Range: Reference Range Not established Microalb/Creat Ratio 5 <30 mcg/mg creat [facility] Comment: The ADA defines abnormalities in albumin excretion as follows: Albuminuria Category Result (mcg/mg creatinine) Normal to Mildly increased <30 Moderately increased 30-299 Severely increased > OR = 300 The ADA recommends that at least two of three specimens collected within a 3-6 month period be abnormal before considering a patient to be within a diagnostic category. Creatinine, Urine 244 20 - 275 mg/dL [facility] 03/08/2022 3:04 PM EDT us Rebekah Guevara NP LAB URINE ORDERABLES Final Res ult [facility] [address] * Hm Colonoscopy (11/05/2020 11:36 AM EDT) Historical Provider HEALTH MAINTENANCE Final Result * HPV mRNA E6/E7 (07/07/2020 12:00 AM EST) HPV nRNA E6/E7 Not Detected Not Detected [facility] Comment: This test was performed using the APTIMA HPV Assay ([employer] This assay detects E6/E7 viral messenger RNA (mRNA) from 14 high-risk HPV types (16,18,31,33,35,39,45,51,52,56,58,59,66,68). The analytical performance characteristics of this assay have been determined by [facility]. The modifications have not been cleared or approved by the FDA. This assay has been validated pursuant to the CLIA regulations and is used for clinical purposes. 07/07/2020 Historical Provider LAB BLOOD ORDERABLES Sera l Result Performing Organization Address [facility] Co de Phone Number [facility] [address] from Last 3 Months or Most Recently Relevant to Health Maintenance Insurance [facility] C3 [facility] OPTIONS (HMO D-SNP) DENTAL - [facility] Care Teams Youtuber Relationship Specialty Start Date End Date Zeinab Sykes MD [address] [place] [address] PCP - General Internal Medicine 01/02/24 Tomeka Martins MoonerMachined Parts Metal Sprayer 10/27/23 Elara Caring 11/06/24
--- OUTSIDE RECORDS SUMMARY | 2025-03-26 13:30 | XMS_ITS | Encounter Summary ---
Author Organization [employer] Address [address] [facility] 7t [place] [address] Care Team Providers Care Quality Measurement Specialist Name Role Phone Zeinab Sykes MD Primary Care Provider + Reason for Visit * Reason Comments Med Refill Encounter Details Date Type Department Care Team ([facility] st Contact Info) Description 05/04/2024 Refill [facility] [address] [place], [place] [phone] Zeinab Sykes MD [address] [place] [address] Other intervertebral disc displacement, lumbar region Social [...] Description 03/27/2025 11:15 AM EDT Office Visit [facility]ULT [facility] [address] [place] [address] Gay Thompson DDS [address] [place] [address] 04/02/2025 11:30 AM EDT Office Visit [facility] [address] [place] [address] Zeinab Sykes MD [address] [place] [address] 05/28/2025 11:00 AM EST Office Visit [address] [address] documented as of this encounter Goals Goal Patient Goal Type Associated Problems Recent Progress Patient-Stated? Author Patient will manage their medication General On track( 023 11:18 AM EDT) No Citlali Armando, Anoop Note: Began medboxes. Goal achieved 11/19/22. Patient graduated from [employer]. documented as of this encounter Visit Diagnoses Diagnosis Other intervertebral disc displacement, lumbar region documented in this encounter Additional Health Concerns Assessment Noted Time PHQ-9 Depression Total Score: 18 024 1:46 PM EDT documented as of this encounter Care Teams Quality Measurement Specialist Relationship Specialty Start Date End Date Zeinab Sykes MD [address] [place] [address] PCP - General Internal Medicine 01/02/24 Tomeka Martins Taxicab StarterVoice Professor 10/27/23 T[employer] Caring 11/06/24 documented as of this encounter
--- OUTSIDE RECORDS SUMMARY | 2025-03-26 13:30 | XMS_ITS | Encounter Summary ---
Author Organization [employer] Address [address] [facility] 7t [place] [address] Care Team Providers Care Agriculture Teacher Name Role Phone Evelyn LedesmaP Primary Care Provider Oralia Dukes MD Primary Care Provider [phone] Zeinab Sykes MD Primary Care Provider + Reason for Visit * Reason Onset Date Comments case from lab 11/04/2022 Encounter Details Date Type Department Care Team (Late st Contact Info) Description 11/04/2022 Telephone [facility] [address] [place] [address] Asad Shore, DDS [address] [place] [address] case from lab Social History Tobacco Use [...] Description 03/27/2025 11:15 AM EDT Office Visit [facility] ADULT DENT[facility] [address] [place] [address] Gay Thompson DDS [address] [place] [address] 04/02/2025 11:30 AM EDT Office Visit [facility] [address] [place] [address] Zeinab Sykes MD [address] [place] [address] 05/28/2025 11:00 AM EST Office Visit [facility] [address] [place] [address] documented as of this encounter Visit Diagnoses Not on filedocumented in this encounter Care Teams Agriculture Teacher Relationship Specialty Start Date End Date Evelyn Ledesma FNP PCP - General Family Medicine 03/15/22 04/25/23 Oralia Aguila MD [address] [place] [address] PCP - General Family Medicine 04/26/23 01/01/24 Zeinab Sykes MD [address] [place] [address] PCP - General Internal Medicine 01/02/24 Tomeka Martins Soft BoarderSupervisor [employer] 10/27/23 [employer] 11/06/24 documented as of this encounter
--- OUTSIDE RECORDS SUMMARY | 2025-03-26 13:30 | XMS_ITS | Encounter Summary ---
Author Organization [employer] Address [address] [facility] [address] 7[address] [place] [address] Care Team Providers Care Brace Maker Name Role Phone Zeinab Sykes MD Primary Care Provider + Encounter Details Date Type Department Care Team ([facility] st Contact Info) Description 09/20/2024 Orders Only [facility] [address] [place] [address] Provider, MD Parag Social History Tobacco Use Types Packs/Day Years [...] t he electric, gas, oil or water [employer] threatened to shut off services in your [...] Description 03/27/2025 11:15 AM EDT Office Visit [facility] ADULT DENTAL [address] [place] [address] Gay Thompson DDS [address] [place] [address] 04/02/2025 11:30 AM EDT Office Visit [facility] MEDICINE [address] [place] [address] Zeinab Sykes MD [address] [place] [address] 05/28/2025 11:00 AM EST Office Visit [address] [address] documented as of this encounter Goals Goal Patient Goal Type Associated Problems Recent Progress Patient-Stated? Author Patient will manage their medication General On track( 023 11:18 AM EDT) No Citlali Armando, Anoop Note: Began medboxes. Goal achieved 11/19/22. Patient graduated from [facility]. documented as of this encounter Procedures [...] PM EDT Narrative 10/19/2024 4:14 PM EDT [place] [address] [address] Scan Report Signed Patient: Rhonda Fernández MR# : [id number] : 1960 Acct:[id number] Age/Sex: 63 / F ADM Date: 10/18/24 Loc: HO.CT Attending Dr: Nolberto Quigley MD Ordering Physician: Nolberto Quigley MD Date of Service: 10/18/24 Procedure(s): CT abdomen pelvis w IV con Accession Number(s): [id number] cc: Zeinab Sykes MD; Nolberto Quigley MD Report Number: [id number]: Total DLP = 538.00 mGy-cm CLINICAL HISTORY: [...] 10/19/24 1614 DD/ 1613 TD/TT: 10/19/24 1613 Solar Panel Installer: Procedure Note Donotuseinterpreter, Image - 10/19/[address] [address] [address] Scan Report Signed Patient: Spenser FernándezR# : [id number] : 1960Acct:[id number] Age/Sex: 63 / FADM Date: 10/18/24 Loc: HO.CT Attending Dr: Nolberto Quigley MD Ordering Physician: Nolberto Quigley MD Date of Service: 10/18/24 Procedure(s): CT abdomen pelvis w IV con Accession Number(s): [id number] cc: Zeinab Sykes MD; Nolberto Quigley MD Report Number: [id number]: Total DLP = 538.00 mGy-cm CLINICAL HISTORY: [...] 10/19/24 1614 DD/ 1613 TD/TT: 10/19/24 1613 Solar Panel Installer: [facility] External Provider IMG CT PROCEDURES Final Result * XR Wrist 3+ Views Left (10/16/2024 5:26 PM EDT) Anatomical Region Laterality Modality Upper Extremities, Wrist Left Radiogr aphic Imaging 10/16/2024 5:26 PM EDT Narrative 10/16/2024 5:28 PM EDT [address] [address] XRay Report Signed Patient: Rhonda Fernández MR# : [id number] : 1960 Acct:[id number] Age/Sex: 63 / F ADM Date: 10/16/24 Loc: HO.ED Attending Dr: Ordering Physician: Lanette Laura PA-C Date of Service: 10/16/24 Procedure(s): XR wrist LT min 3V Accession Number(s): [id number] cc: Zeinab Sykes MD; Lanette Laura PA-C [...] in OV> 10/16/241726 DD/ 25 TD/TT: 10/16/241725 Solar Panel Installer: Procedure Note Donotuseinterpreter, Image - 10/16/[address] [address] XRay Report Signed Patient: Karla Fernández# : [id number] : 1960Acct:[id number] Age/Sex: 63 / FADM Date: 10/16/24 Loc: HO.ED Attending Dr: Ordering Physician: Lanette Laura PA-C Date of Service: 10/16/24 Procedure(s): XR wrist LT min 3V Accession Number(s): [id number] cc: Zeinab Sykes MD; Lanette Laura PA-C [...] in OV> 10/16/241726 DD/ 25 TD/TT: 10/16/241725 Solar Panel Installer: us [facility] External Provider IMG XR PROCEDURES Final Result * XR Hip left with Pelvis 1 view (10/16/2024 5:24 PM EDT) Anatomical Region Laterality Modality Lower Extremities, Hip Bilateral Radiograp hic Imaging 10/16/2024 5:24 PM EDT Narrative 10/16/2024 5:26 PM EDT [address] [address] XRay Report Signed Patient: Rhonda Fernández MR# : [id number] : 1960 Acct:[id number] Age/Sex: 63 / F ADM Date: 10/16/24 Loc: HO.ED Attending Dr: Ordering Physician: Lanette Laura PA-C Date of Service: 10/16/24 Procedure(s): XR hip LT w PEL1V Accession Number(s): [id number] cc: Zeinab Sykes MD; Lanette Laura PA-C [...] in OV> 10/16/241724 DD/ 23 TD/TT: 10/16/241723 Solar Panel Installer: Procedure Note Donotuseinterpreter, Image - 10/16/[address] [address] XRay Report Signed Patient: Spenser FernándezR# : [id number] : 1960Acct:[id number] Age/Sex: 63 / FADM Date: 10/16/24 Loc: HO.ED Attending Dr: Ordering Physician: Lanette Laura PA-C Date of Service: 10/16/24 Procedure(s): XR hip LT w PEL1V Accession Number(s): [id number] cc: Zeinab Sykes MD; Lanette Laura PA-C [...] in OV> 10/16/241724 DD/ 23 TD/TT: 10/16/241723 Solar Panel Installer: [facility] External Provider IMG XR PROCEDURES Final Result * XR Elbow 3+ Views Left (10/16/2024 5:23 PM EDT) Anatomical Region Laterality Modality Upper Extremities, Elbow Left Radiogr aphic Imaging 10/16/2024 5:23 PM EDT Narrative 10/16/2024 5:25 PM EDT [place] [address] XRay Report Signed Patient: Rhonda Fernández MR# : [id number] : 1960 Acct:[id number] Age/Sex: 63 / F ADM Date: 10/16/24 Loc: .ED Attending Dr: Ordering Physician: Lanette Laura PA-C Date of Service: 10/16/24 Procedure(s): XR elbow LT min 3V Accession Number(s): [id number] cc: Zeinab Sykes MD; Lanette Laura PA-C [...] in OV> 10/16/241723 DD/ 22 TD/TT: 10/16/241722 Solar Panel Installer: Procedure Note Donotuseinterpreter, Image - 10/16/[address] [address] XRay Report Signed Patient: Karla Fernández# : [id number] : 1960Acct:[id number] Age/Sex: 63 / FADM Date: 10/16/24 Loc: HO.ED Attending Dr: Ordering Physician: Lanette Laura PA-C Date of Service: 10/16/24 Procedure(s): XR elbow LT min 3V Accession Number(s): [id number] cc: Zeinab Sykes MD; Lanette Laura PA-C [...] in OV> 10/16/241723 DD/ 22 TD/TT: 10/16/241722 Solar Panel Installer: [facility] External Provider IMG XR PROCEDURES Final Result * CT Cervical Spine w/o Contrast (10/16/2024 5:18 PM EDT) Anatomical Region Laterality Modality Spine, C-spine Computed Tomogra phy 10/16/2024 5:18 PM EDT Narrative 10/16/2024 5:19 PM EDT [address] [address] [address] Scan Report Signed Patient: Rhonda Fernández MR# : [id number] : 1960 Acct:[id number] Age/Sex: 63 / F ADM Date: 10/16/24 Loc: HO.ED Attending Dr: Ordering Physician: Lanette Laura PA-C Date of Service: 10/16/24 Procedure(s): CT cervical spine wo IV con Accession Number(s): [id number] cc: Zeinab Sykes MD; Lanette Laura PA-C Report Number: [id number]: Total DLP = 605.00 mGy-cm CLINICAL HISTORY: [...] in OV> 10/16/241718 DD/ 17 TD/TT: 10/16/241717 Solar Panel Installer: Procedure Note Donotuseinterpreter, Image - 10/16/[address] [address] [address] Scan Report Signed Patient: Spenser FernándezR# : [id number] : 1960Acct:[id number] Age/Sex: 63 / FADM Date: 10/16/24 Loc: .ED Attending Dr: Ordering Physician: Lanette Laura PA-C Date of Service: 10/16/24 Procedure(s): CT cervical spine wo IV con Accession Number(s): [id number] cc: Zeinab Sykes MD; Lanette Laura PA-C Report Number: [id number]: Total DLP = 605.00 mGy-cm CLINICAL HISTORY: [...] in OV> 10/16/241718 DD/ 17 TD/TT: 10/16/241717 Solar Panel Installer: [facility] External Provider IMG CT PROCEDURES Final Result * Hm Colonoscopy (11/05/2020 11:36 AM EDT) Historical Provider HEALTH MAINTENANCE Final Result documented in this encounter Visit Diagnoses Not on filedocumented in this encounter Additional Health Concerns Assessment Noted Time PHQ-9 Depression Total Score: 22 08/15/ 025 10:31 AM EST documented as of this encounter Care Teams Brace Maker Relationship Specialty Start Date End Date Zeinab Sykes MD [address] [place] [address] PCP - General Internal Medicine 01/02/24 Tomeka Martins Yeast DistillerSlag Expander 10/27/23 Tj Caring 11/06/24 documented as of this encounter
--- OUTSIDE RECORDS SUMMARY | 2025-03-26 13:30 | XMS_ITS | Encounter Summary ---
Author Organization [employer] Address [address] [facility] 7t [place] [address] Care Team Providers Care Eligibility Clerk Name Role Phone Zeinab Sykes MD Primary Care Provider + Reason for Visit * Reason Comments Med Refill Encounter Details Date Type Department Care Team ([facility] st Contact Info) Description 02/16/[address] [facility] [address] [place], [place] [phone] Zeinab Sykes MD [address] [place] [address] Neuropathy Social History Tobacco Use Types Packs/Day [...] Description 03/27/2025 11:15 AM EDT Office Visit [facility] ADULT DENTAL [address] [place] [address] Gay Thompson, DDS [address] [place] [address] 04/02/2025 11:30 AM EDT Office Visit [facility] [address] [place] [address] Zeinab Sykes MD [address] [place] [address] 05/28/2025 11:00 AM EST Office Visit [facility] [address] [place] [address] documented as of this encounter Goals Goal [...] Assessment Noted Time PHQ-9 Depression Total Score: 025 10:31 AM EST documented as of this encounter Care Teams Eligibility Clerk Relationship Specialty Start Date End Date Zeinab Sykes MD [address] [place] [address] PCP - General Internal Medicine 01/02/24 Tomeka Martins Hand Lens PolisherCloth Desizing Range Tender 10/27/23 Tj Caring 11/06/24 documented as of this encounter
--- OUTSIDE RECORDS SUMMARY | 2025-03-26 13:30 | XMS_ITS | Encounter Summary ---
Author Organization [employer] Address [address] [facility] 7t [place] [address] Care Team Providers Care Electro Plater Name Role Phone Evelyn Ledesma Primary Care Provider Oralia Dukes MD Primary Care Provider [phone] Zeinab Sykes MD Primary Care Provider + Reason for Visit * Reason Onset Date Comments Prior Authorization 12/28/2022 Encounter Details Date Type Department Care Team (Late st Contact Info) Description 12/28/2022 Telephone [facility] [address] [place] [address] Evelyn Ledesma FNP Prior Authorization Social History Tobacco Use Types [...] AM EDT T/C placed to pt via [employer] Zeinab #[id number]. Advised of message from pcp re: lab [...] all other NSAIDS. Do you have a slagger yet? If not, your PCP would like [...] AM EDT TC luis m Emery from [employer] requesting XL pull ups and disposable under pads . States faxed request couple days ago and have not gotten a response . Informs paper work 12/29/22. Please call to clarify at phone # [phone] . documented in this encounter Plan of Treatment Upcoming Encounters Date Type Department Care Team (Late st Contact Info) Description 03/27/2025 11:15 AM EDT Office Visit [facility] ADULT DENTAL [address] [place] [address] Gay Thompson DDS [address] [place] [address] 04/02/2025 11:30 AM EDT Office Visit [address] [address] Zeinab Sykes MD [address] [place] [address] 05/28/2025 11:00 AM EST Office Visit [address] [address] documented as of this encounter Goals Goal Patient Goal Type Associated Problems Recent Progress Patient-Stated? Author Patient will manage their medication General On track( 023 11:18 AM EDT) Citlali Ocampo, Anoop Note: Began medboxes. Goal achieved 11/19/22. Patient graduated from [facility]. documented as of this encounter Visit Diagnoses Not on filedocumented in this encounter Care Teams Electro Plater Relationship Specialty Start Date End Date Evelyn Ledesma FNP PCP - General Family Medicine 03/15/22 04/25/23 Oralia Aguila MD [address] [place] [address] PCP - General Family Medicine 04/26/23 01/01/24 Zeinab Sykes MD [address] [place] [address] PCP - General Internal Medicine 01/02/24 Tomeka Martins Heat CurerFurnace Packer 10/27/23 [employer] 11/06/24 documented as of this encounter
--- OUTSIDE RECORDS SUMMARY | 2025-03-26 13:30 | XMS_ITS | Clinical Summary ---
Author Organization [facility] Address [address] [place] [address] Care Team Providers Care Student Services Dean Name Role Phone Meryl Montes Primary Care Provider Surgical History Surgery Date Site/Laterality Comments BREAST REDUCTION PROCEDURE: [place] BREAST REDUCTION BACK SURGERY PROCEDURE: HISTORICAL BACK SURGERY; COMMENT: L4-5 rt L5-S1 decomp 05/26/18 Medical History Medical History Date Comments Asthma DX:Asthma Diabetes mellitus type 2, co ntrolled, with complications (CMS/HCC V24, CMS/HCC V28) DX:Diabetes mellitus type 2, controlled, with complications ([facility]) Essential hypertension DX:Essent ial hypertension Depressive disorder [...] 06/27/2022 Social Influencers of Health Screening 06/27/2022 Depression Screening 07/18/2024 Falls Risk Assessment 11/05/2024 COVID-19 Vaccine (1 - 2023-2 5 season) 2025 Influenza Vaccine (#1) 2025 RSV Immunization Adult [...] age to complete this topic Care Teams Student Services Dean Relationship Specialty Start Date End Date Meryl Montes [address] [place] [phone] PCP - General 05/07/22
--- OUTSIDE RECORDS SUMMARY | 2025-03-26 13:30 | XMS_ITS | Encounter Summary ---
Author Organization [employer] Address [address] [facility] 7t [place] [address] Care Team Providers Care Chainstitch Felled Seam Operator Name Role Phone Evelyn LedesmaP Primary Care Provider Oralia Dukes MD Primary Care Provider [phone] Zeinab Sykes MD Primary Care Provider + Reason for Visit * Reason Onset Date Comments medical clearance 02/11/2023 Encounter Details Date Type Department Care Team (Late st Contact Info) Description 02/11/2023 Telephone [facility] ADULT DENTAL [address] [place] [address] Asad Shore, DDS [address] [place] [address] medical clearance Social History Tobacco Use Types [...] Description 03/27/2025 11:15 AM EDT Office Visit [facility] ADULT DENTAL [address] [place] [address] Gay Thompson DDS [address] [place] [address] 04/02/2025 11:30 AM EDT Office Visit [facility] MEDICINE [address] [place] [address] Zeinab Sykes MD [address] [place] [address] 05/28/2025 11:00 AM EST Office Visit [facility] MEDICINE [address] [place] [address] documented as of this encounter Goals Goal Patient Goal Type Associated Problems Recent Progress Patient-Stated? Author Patient will manage their medication General On track( 023 11:18 AM EDT) Citlali Ocampo, PharmD Note: Began medboxes. Goal achieved 11/19/22. Patient graduated from [facility]. documented as of this encounter Visit Diagnoses Not on filedocumented in this encounter Care Teams Chainstitch Felled Seam Operator Relationship Specialty Start Date End Date Evelyn Ledesma FNP PCP - General Family Medicine 03/15/22 04/25/23 Oralia Aguila MD [address] [place] [address] PCP - General Family Medicine 04/26/23 01/01/24 Zeinab Sykes MD [address] [place] [address] PCP - General Internal Medicine 01/02/24 oTmeka Martins Inspector Canned Food ReconditioningFrench Translator 10/27/23 [employer] 11/06/24 documented as of this encounter
--- OUTSIDE RECORDS SUMMARY | 2025-03-26 13:31 | XMS_ITS | Encounter Summary ---
Author Organization [employer] Address [address] [place] [address] 7 [place] [address] Care Team Providers Care Gluer Name Role Phone Evelyn Ledesma Raegan JUNGP Primary Care Provider Oralia Dukes MD Primary Care Provider [phone] Zeinab Sykes MD Primary Care Provider + Encounter Details Date Type Department Care Team (Latest Contact Info) Description 10/30/2020 Abstract [facility] CONVERSIONS Dental, Provider, DDS Social History [...] Description 03/27/2025 11:15 AM EDT Office Visit [facility] ADULT DENTAL [address] [place] [address] Gay Thompson DDS [address] [place] [address] 04/02/2025 11:30 AM EDT Office Visit [facility] MEDICINE [address] [place] [address] Zeinab Sykes MD 230 [place] [address] 05/28/2025 11:00 AM EST Office Visit [facility] MEDICINE [address] [place] [address] documented as of this encounter Visit Diagnoses Not on filedocumented in this encounter Care Teams Gluer Relationship Specialty Start Date End Date Evelyn Ledesma FNP PCP - General Family Medicine 03/15/22 04/25/23 Oralia Aguila MD [address] [place] [address] PCP - General Family Medicine 04/26/23 01/01/24 Zeinab Sykes MD [address] [place] [address] PCP - General Internal Medicine 01/02/24 Tomeka Martins Property InspectorManaging Consultant Clinical Professor 10/27/23 T[employer] Caring 11/06/24 documented as of this encounter
--- OUTSIDE RECORDS SUMMARY | 2025-03-26 13:31 | XMS_ITS | Encounter Summary ---
Author Organization [employer] Address [address] [place] [address] 7t [place] [address] Care Team Providers Care Motorcycle Builder Name Role Phone Oralia Aguila MD Primary Care Provider [phone] Zeinab Sykes MD Primary Care Provider + Reason for Visit * Reason Onset Date Comments Med Refill 05/05/2023 Encounter Details Date Type Department Care Team (Late st Contact Info) Description 05/05/2023 Refill [facility] MEDICINE [address] [place] [address] Oralia Aguila MD 230 [place] [address] Other intervertebral disc displacement, lumbar region Social [...] 5- 325 MG tablet to besent to [facility] [place], [place] - [address] [facility] documented in this encounter Plan of Treatment Upcoming Encounters Date Type Department Care Team (Late st Contact Info) Description 03/27/2025 11:15 AM EDT Office Visit [facility] ADULT DENTAL [address] [place] [address] Watkins-Maynard, Gay, DDS [address] [place] [address] 04/02/2025 11:30 AM EDT Office Visit [facility] MEDICINE [address] [place] [address] Zeinab Sykes MD [facility] [place] [address] 05/28/2025 11:00 AM EST Office Visit [facility] [place] [address] documented as of this encounter Goals Goal Patient Goal Type Associated Problems Recent Progress Patient-Stated? Author Patient will manage their medication General On track( 023 11:18 AM EDT) No Citlali Armando, PharmD Note: Began medboxes. Goal achieved 11/19/22. Patient graduated from [facility]. documented as of this encounter Visit Diagnoses Diagnosis Other intervertebral disc displacement, lumbar region documented in this encounter Care Teams Motorcycle Builder Relationship Specialty Start Date End Date [place] [address] PCP - General Family Medicine 04/26/23 01/01/24 Zeinab Sykes MD [facility] [place] [address] PCP - General Internal Medicine 01/02/24 Tomeka Martins Supervisor RemeltGleason Gear Generator 10/27/23 [employer] Caring 11/06/24 documented as of this encounter
--- OUTSIDE RECORDS SUMMARY | 2025-03-26 13:31 | XMS_ITS | Clinical Summary ---
Author Organization [facility], Address [address] [place] [address] [place] [address] Phone Care Team Providers Care Boring Machine Set Up Operator Jig Name Role Phone Evelyn Rodriguez Primary Care [...] ars (1 of 1 - PCV) 11/05/2009 Influenza Vaccine (#1) 2025 Hepatitis B Vaccine Aged Out No longe r eligible based on patient's age to complete this topic Insurance Medicaid [place] Care Teams Boring Machine Set Up Operator Jig Relationship Specialty Start Date End Date Evelyn Rodriguez FNP PCP - General 02/18/23
--- OUTSIDE RECORDS SUMMARY | 2025-03-26 13:31 | XMS_ITS | Encounter Summary ---
Author Organization [employer] Address [address] [place] [address] 7t [place] [address] Care Team Providers Care Finish Inspector Name Role Phone Oralia Aguila MD Primary Care Provider [phone] Zeinab Sykes MD Primary Care Provider + Reason for Visit * Reason Comments Med Refill Encounter Details Date Type Department Care Team (Late st Contact Info) Description 07/06/2023 Refill [facility] [address] [place] [address] Bryn [place] MD 230 [place] [address] Social History Tobacco Use Types Packs/Day Years [...] Description 03/27/2025 11:15 AM EDT Office Visit [facility] ADULT DENTAL [address] [place] [address] Gay Thompson DDS [address] [place] [address] 04/02/2025 11:30 AM EDT Office Visit [address] [address] Zeinab Sykes MD [address] [place] [address] 05/28/2025 11:00 AM EST Office Visit [address] [address] documented as of this encounter Goals Goal Patient Goal Type Associated Problems Recent Progress Patient-Stated? Author Patient will manage their medication General On track( 023 11:18 AM EDT) Citlali Ocampo, PharmD Note: Began medboxes. Goal achieved 11/19/22. Patient graduated from [facility]. documented as of this encounter Visit Diagnoses Not on filedocumented in this encounter Care Teams Finish Inspector Relationship Specialty Start Date End Date Oralia Aguila MD [address] [place] [address] PCP - General Family Medicine 04/26/23 01/01/24 Zeinab Sykes MD [address] [place] [address] PCP - General Internal Medicine 01/02/24 Tomeka Martins CsrSupervisor In Circuit Testing 10/27/23 [employer] 11/06/24 documented as of this encounter
--- OUTSIDE RECORDS SUMMARY | 2025-03-26 13:31 | XMS_ITS | Encounter Summary ---
Author Organization [employer] Address [address] [place] [address] 7 [place] [address] Care Team Providers Care Client Evaluator Name Role Phone Oralia Aguila MD Primary Care Provider [phone] Zeinab Sykes MD Primary Care Provider + Reason for Visit * Reason Comments Med Refill Encounter Details Date Type Department Care Team (Late Contact Info) Description 08/09/2023 Refill [facility] MEDICINE [address] [place] [address] Oralia Aguila MD 230 [place] [address] Other intervertebral disc displacement, lumbar region Social [...] Description 03/27/2025 11:15 AM EDT Office Visit [facility] ADULT DENTAL [address] [place] [address] Gay Thompson DDS [address] [place] [address] 04/02/2025 11:30 AM EDT Office Visit [address] [phone] Zeinab Sykes MD [address] [place] [address] 05/28/2025 11:00 AM EST Office Visit [address] [address] documented as of this encounter Goals Goal Patient Goal Type Associated Problems Recent Progress Patient-Stated? Author Patient will manage their medication General On track( 023 11:18 AM EDT) Citlali Ocampo, PharmD Note: Began medboxes. Goal achieved 11/19/22. Patient graduated from [facility]. documented as of this encounter Visit Diagnoses Diagnosis Other intervertebral disc displacement, lumbar region documented in this encounter Care Teams Client Evaluator Relationship Specialty Start Date End Date Oralia Aguila MD [address] [place] [address] PCP - General Family Medicine 04/26/23 01/01/24 Zeinab Sykes MD [address] [place] [address] PCP - General Internal Medicine 01/02/24 Tomeka Martins Builder OperatorCook Fry 10/27/23 T[employer] Caring 11/06/24 documented as of this encounter
--- OUTSIDE RECORDS SUMMARY | 2025-03-26 13:31 | XMS_ITS | Encounter Summary ---
Author Organization [employer] Address [address] [place] [address] 7t [place] [address] Care Team Providers Care Reporting Specialist Name Role Phone Oralia Aguila MD Primary Care Provider [phone] Zeinab Sykes MD Primary Care Provider + Reason for Visit * Reason Onset Date Comments antibiotics pre med 07/19/2023 Encounter Details Date Type Department Care Team ([facility] st Contact Info) Description 07/19/2023 Telephone [facility]ULT D[facility]AL [address] [place] [address] Stefany Anton, DDS [address] [place] [address] antibiotics pre med Social History Tobacco Use [...] Visit [facility] ADULT DENTAL [address] [place] [address] Gay Thompson DDS 230 [place] [address] 04/02/2025 11:30 AM EDT Office Visit [facility] MEDICINE [address] [place] [address] Zeinab Sykes MD [address] [place] [address] 05/28/2025 11:00 AM EST Office Visit [facility] MEDICINE [address] [place] [address] documented as of this encounter Goals Goal Patient Goal Type Associated Problems Recent Progress Patient-Stated? Author Patient will manage their medication General On track( 023 11:18 AM EDT) Citlali Ocampo, PharmD Note: Began medboxes. Goal achieved 11/19/22. Patient graduated from [facility]. documented as of this encounter Visit Diagnoses Not on filedocumented in this encounter Care Teams Reporting Specialist Relationship Specialty Start Date End Date Oralia Aguila MD [address] [place] [address] PCP - General Family Medicine 04/26/23 01/01/24 Zeinab Sykes MD [address] [place] [address] PCP - General Internal Medicine 01/02/24 Tomeka Martins Application Software EngineerDie Mounter 10/27/23 [employer] 11/06/24 documented as of this encounter
--- OUTSIDE RECORDS SUMMARY | 2025-03-26 13:31 | XMS_ITS | Encounter Summary ---
Author Organization [employer] Address [address] [place] [address] 7 [place] [address] Care Team Providers Care Real Estate Firm Manager Name Role Phone Evelyn Ledesma Primary Care Provider Oralia Dukes MD Primary Care Provider [phone] Zeinab ySkes MD Primary Care Provider + Reason for Visit * Reason Comments Med Refill Encounter Details Date Type Department Care Team (Late Contact Info) Description 02/05/2023 Refill [facility] MEDICINE [address] [place] [address] Evelyn Ledesma FNP Neuropathy Social History Tobacco Use Types Packs/Day [...] Office Visit [facility] ADULT DENTAL [address] [place] [address] Gay Thompson, DDS [address] [place], [place] [phone] 04/02/2025 11:30 AM EDT Office Visit [address] [address] Zeinab Sykes MD [address] [place] [address] 05/28/2025 11:00 AM EST Office Visit [address] [address] documented as of this encounter Goals Goal [...] site documented in this encounter Care Teams Real Estate Firm Manager Relationship Specialty Start Date End Date Evelyn Ledesma FNP PCP - General Family Medicine 03/15/22 04/25/23 Oralia Aguila MD [address] [place] [address] PCP - General Family Medicine 04/26/23 01/01/24 Zeinab Sykse MD [address] [place] [address] PCP - General Internal Medicine 01/02/24 Tomeka Martins Product Management AnalystPowder Monkey 10/27/23 [employer]aring 11/06/24 documented as of this encounter
--- OUTSIDE RECORDS SUMMARY | 2025-03-26 13:31 | XMS_ITS | Encounter Summary ---
Author Organization [facility], Address [address] [place] [address] Phone Care Team Providers Care Shop Manager Name Role Phone Evelyn Rodriguez Primary Care Provider Silvana vailable Encounter Details Date Type Department Care Team (Late st Contact Info) Description 02/18/2023 Documentation Only [facility], [address] [place] [address] Xiao Sheppard [address] [place] [address] Social History Tobacco Use Types [...] on filedocumented in this encounter Care Teams Shop Manager Relationship Specialty Start Date End Date Evelyn Rodriguez FNP PCP - General 02/18/23 documented as of this encounter
--- OUTSIDE RECORDS SUMMARY | 2025-03-26 13:31 | XMS_ITS | Encounter Summary ---
Author Organization [employer] Address [address] [facility] 7t [place] [address] Care Team Providers Care Heel Sprayer First Name Role Phone Evelyn LedesmaP Primary Care Provider Oralia Dukes MD Primary Care Provider [phone] Zeinab Sykes MD Primary Care Provider + Reason for Visit * Reason Onset Date Comments Referral 02/03/2023 Renewal Encounter Details Date Type Department Care Team (Late st Contact Info) Description 02/03/2023 Telephone [facility] MEDICINE [address] [place] [address] Evelyn Ledesma FNP Referral (Renewal ) Social History Tobacco Use [...] Description 03/27/2025 11:15 AM EDT Office Visit [facility] ADULT DENTAL [address] [place] [address] Watkins-Gay Maynard, DDS [address] [place] [address] 04/02/2025 11:30 AM EDT Office Visit [facility] MEDICINE [address] [place] [address] Zeinab Sykes MD 230 [place] [address] 05/28/2025 11:00 AM EST Office Visit [address] [address] documented as of this encounter Goals Goal Patient Goal Type Associated Problems Recent Progress Patient-Stated? Author Patient will manage their medication General On track( 023 11:18 AM EDT) No Citlali Armando, Anoop Note: Began medboxes. Goal achieved 11/19/22. Patient graduated from [facility]. documented as of this encounter Visit Diagnoses Not on filedocumented in this encounter Care Teams Heel Sprayer First Relationship Specialty Start Date End Date Evelyn Ledesma FNP PCP - General Family Medicine 03/15/22 04/25/23 Oralia Aguila MD [address] [place] [address] PCP - General Family Medicine 04/26/23 01/01/24 Zeinab Sykes MD [address] [place] [phone] PCP - General Internal Medicine 01/02/24 Tomeka Martins Radiotelegraph Operator ServicerEngineer Steam 10/27/23 Tj Ramos 11/06/24 documented as of this encounter
--- OUTSIDE RECORDS SUMMARY | 2025-03-26 13:31 | XMS_ITS | Encounter Summary ---
Author Organization [employer] Address [address] [place] [address] 7 [place] [address] Care Team Providers Care Exchange Underwriting Consultant Name Role Phone Oralia Aguila MD Primary Care Provider [phone] Zeinab Sykes MD Primary Care Provider + Reason for Visit * Reason Comments Med Refill Encounter Details Date Type Department Care Team (Late st Contact Info) Description 09/21/2023 Refill [facility] MEDICINE [address] [place] [address] Oralia Aguila MD 230 [place] [address] Neuropathy Social History Tobacco Use Types Packs/Day [...] Description 03/27/2025 11:15 AM EDT Office Visit [facility] ADULT DENTAL [address] [place] [address] Gay Thompson DDS [address] [place] [address] 04/02/2025 11:30 AM EDT Office Visit [facility] MEDICINE [address] [place] [address] Zeinab Sykes MD [address] [place] [address] 05/28/2025 11:00 AM EST Office Visit [address] [address] documented as of this encounter Goals Goal Patient Goal Type Associated Problems Recent Progress Patient-Stated? Author Patient will manage their medication General On track( 023 11:18 AM EDT) Citlali Ocampo, Anoop Note: Began medboxes. Goal achieved 11/19/22. Patient graduated from [facility]. documented as of this encounter Visit Diagnoses Diagnosis Neuropathy Mononeuritis of unspecified site documented in this encounter Care Teams Exchange Underwriting Consultant Relationship Specialty Start Date End Date Oralia Aguila MD [address] [place] [address] PCP - General Family Medicine 04/26/23 01/01/24 Zeinab Sykes MD [address] [place] [address] PCP - General Internal Medicine 01/02/24 Tomeka Martins Collection Systems ForemanElectric Motor Control Assembler 10/27/23 Tj Caring 11/06/24 documented as of this encounter
--- OUTSIDE RECORDS SUMMARY | 2025-03-26 13:31 | XMS_ITS | Encounter Summary ---
Author Organization [employer] Address [address] [place] [address] 7 [place] [address] Care Team Providers Care Flour Blender Helper Name Role Phone Evelyn Ledesma Raegan ADDICTION MEDICINE PHYSICIAN Primary Care Provider Oralia Dukes MD Primary Care Provider [phone] Zeinab Sykes MD Primary Care Provider + Encounter Details Date Type Department Care Team (Latest Contact Info) Description 12/21/2018 Abstract [facility] CONVERSIONS Dental, Provider, DDS Social History Tobacco [...] Description 03/27/2025 11:15 AM EDT Office Visit [facility] ADULT DENTAL [address] [place] [address] Gay Thompson DDS [address] [place] [address] 04/02/2025 11:30 AM EDT Office Visit [facility] MEDICINE [address] [place] [address] Zeinab Sykes MD [address] [place] [address] 05/28/2025 11:00 AM EST Office Visit [facility] MEDICINE [address] [place] [address] documented as of this encounter Visit Diagnoses Not on filedocumented in this encounter Care Teams Flour Blender Helper Relationship Specialty Start Date End Date Evelyn Ledesma FNP PCP - General Family Medicine 03/15/22 04/25/23 Oralia Aguila MD [address] [place] [address] PCP - General Family Medicine 04/26/23 01/01/24 Zeinab Sykes MD [address] [place] [address] PCP - General Internal Medicine 01/02/24 Tmoeka Martins Ring MakerAudit Lead 10/27/23 Tj Caring 11/06/24 documented as of this encounter
--- OUTSIDE RECORDS SUMMARY | 2025-03-26 13:31 | XMS_ITS | Encounter Summary ---
Author Organization [employer] Address [address] [facility] 7t [place] [address] Care Team Providers Care Repairing Calibrator Name Role Phone Zeinab Sykes MD Primary Care Provider + Reason for Visit * Reason Onset Date Comments Med Refill 07/16/2024 Encounter Details Date Type Department Care Team ([facility] Contact Info) Description 07/16/2024 Telephone [facility] MEDICINE [address] [place], [place] [phone] Zeinab Sykes MD [address] [place] [address] Med Refill Social History Tobacco Use Types [...] 10 MG capsule To be sent to: [facility] pharmacy documented in this encounter Plan of Treatment Upcoming Encounters Date Type Department Care Team (Late st Contact Info) Description 03/27/2025 11:15 AM EDT Office Visit [facility] ADULT DENTAL [address] [place] [address] Gay Thompson DDS [address] [place] [address] 04/02/2025 11:30 AM EDT Office Visit [facility] MEDICINE [address] [place] [address] Zeinab Sykes MD [address] [place] [address] 05/28/2025 11:00 AM EST Office Visit [facility] MEDICINE [address] [place] [address] documented as of this encounter Goals Goal Patient Goal Type Associated Problems Recent Progress Patient-Stated? Author Patient will manage their medication General On track( 023 11:18 AM EDT) Citlali Ocampo, Anoop Note: Began medboxes. Goal achieved 11/19/22. Patient graduated from [facility]. documented as of this encounter Visit Diagnoses Not on filedocumented in this encounter Additional Health Concerns Assessment Noted Time PHQ-9 Depression Total Score: 18 024 1:46 PM EDT documented as of this encounter Care Teams Repairing Calibrator Relationship Specialty Start Date End Date Zeinab Sykes MD [address] [place] [address] PCP - General Internal Medicine 01/02/24 Tomeka Martins Care AssociateDrawing Hand 10/27/23 Tj Caring 11/06/24 documented as of this encounter
== END 2025-03-26 16:02 | disposition home or self-care (01) ==
LOC: HO.HGI 11:08
PROVIDERS: PCP Internal Medicine; Visit Provider Nurse Practitioner
DX: R15.9 Full incontinence of feces (principal)
CPT/HCPCS: 99213

== ENCOUNTER → 2025-03-26 11:07 | Outpatient (BNVA) | payer OTHER, SELFPAY | PROVIDERS: PCP Internal Medicine; Visit Provider Nurse Practitioner | DX: R15.9 Full incontinence of feces (principal); K59.4 Anal spasm; K58.1 Irritable bowel syndrome with constipation | CPT/HCPCS: 99212 ==

== ENCOUNTER 2025-04-10 08:23 | Outpatient (REF) | payer OTHER, SELFPAY ==
--- OUTSIDE RECORDS SUMMARY | 2025-04-10 08:00 | XMS_ITS | Encounter Summary ---
Author Organization [employer] Address [address] [place] [address] 7 [place] [address] Care Team Providers Care Ui Programmer Name Role Phone Zeinab Sykes MD Primary Care Provider + Reason for Visit * Reason Comments Dentures Encounter Details Date Type Department Care Team ([facility] st Contact Info) Description 04/10/2025 8:00 AM EDT Office Visit [facility] ADULT DENTAL [address] [place] [address] Gay Thompson, SCOORROS [address] [place] [address] Arrived Social History Tobacco Use Types Packs/Day Years [...] Care Team (Late st Contact Info) Description 05/28/2025 11:00 AM EST Office Visit [facility] MEDICINE [address] [place] [address] 06/05/2025 11:30 AM EST Office Visit [facility] MEDICINE [address] [place] [address] Zeinab Sykes MD [address] [place] [address] 10/03/2025 12:45 PM EDT Office Visit [facility] ADULT DENTAL [address] [place] [address] Ruben Hoguearis [address] [place] [address] documented as of this encounter Goals Goal Patient Goal Type Associated Problems Recent Progress Patient-Stated? Author Patient will manage their medication General On track( 023 11:18 AM EDT) Citlali Ocampo, Anoop Note: Began medboxes. Goal achieved 11/19/22. Patient graduated from [facility]. documented as of this encounter Visit Diagnoses Not on filedocumented in this encounter Additional Health Concerns Assessment Noted Time PHQ-9 Depression Total Score: 22 025 10:31 AM EST documented as of this encounter Care Teams Ui Programmer Relationship Specialty Start Date End Date Zeinab Sykes MD [address] [place] [address] PCP - General Internal Medicine 01/02/24 Tomeka Martins Placement InterviewerElectrical Construction Project Manager 10/27/23 [employer] 11/06/24 documented as of this encounter
--- OUTSIDE RECORDS SUMMARY | 2025-04-10 09:16 | XMS_ITS | Encounter Summary ---
Author Organization [employer] Address [address] [facility] 7t [place] [address] Care Team Providers Care Planning And Analysis Manager Name Role Phone Zeinab Sykes MD Primary Care Provider + Reason for Visit * Reason Onset Date Comments telephone call 04/09/2025 Encounter Details Date Type Department Care Team ([facility] Contact Info) Description 04/09/2025 Telephone [facility] MEDICINE [address] [place], [place] [phone] Zeinab Sykes MD [address] [place] [address] telephone call Social History Tobacco Use Types [...] Description 05/28/2025 11:00 AM EST Office Visit [facility] MEDICINE [address] [place] [address] 06/05/2025 11:30 AM EST Office Visit [facility] MEDICINE [address] [place] [address] Zeinab Sykes MD [address] [place] [address] 10/03/2025 12:45 PM EDT Office Visit [facility] ADULT DENTAL [address] [place] [address] Fabi Hogue [address] [place] [address] documented as of this encounter Goals Goal Patient Goal Type Associated Problems Recent Progress Patient-Stated? Author Patient will manage their medication General On track( 023 11:18 AM EDT) Citlali Ocampo, Anoop Note: Began medboxes. Goal achieved 11/19/22. Patient graduated from [facility]. documented as of this encounter Visit Diagnoses Not on filedocumented in this encounter Additional Health Concerns Assessment Noted Time PHQ-9 Depression Total Score: 22 025 10:31 AM EST documented as of this encounter Care Teams Planning And Analysis Manager Relationship Specialty Start Date End Date Zeinab Sykes MD [address] [place] [address] PCP - General Internal Medicine 01/02/24 Tomeka Martins Buildings And Grounds CoordinatorSerology Technician 10/27/23 [employer] 11/06/24 documented as of this encounter
--- OUTSIDE RECORDS SUMMARY | 2025-04-10 09:16 | XMS_ITS | Encounter Summary ---
Author Organization [employer] Address [address] [place] [address] 7t [place] [address] Care Team Providers Care Appetizer Packer Name Role Phone Evelyn Ledesma Primary Care Provider Silvana Oralia Alamo MD Primary Care Provider [phone] Zeinab Sykes MD Primary Care Provider + Encounter Details Date Type Department Care Team ([facility] Contact Info) Description 10/22/2022 Orders Only [facility] MEDICINE [address] [place] [address] Evelyn Ledesma FNP Social History Tobacco Use [...] Upcoming Encounters Date Type Department Care Team ([facility] Contact Info) Description 05/28/2025 11:00 AM EST Office Visit [address] [address] 06/05/2025 11:30 AM EST Office Visit [address] [place] [address] Zeinab Sykes MD [address] [place], [place] [phone] 10/03/2025 12:45 PM EDT Office Visit [facility] ADULT DENTAL [address] [place], [place] [phone] Fabi Hogue [address] [place] [address] documented as of this encounter Visit Diagnoses Not on filedocumented in this encounter Care Teams Appetizer Packer Relationship Specialty Start Date End Date Evelyn Ledesma FNP PCP - General Family Medicine 03/15/22 04/25/23 Oralia Aguila MD [address] [place] [phone] PCP - General Family Medicine 04/26/23 01/01/24 Zeinab Sykes MD [address] [place] [phone] PCP - General Internal Medicine 01/02/24 Tomeka Martins Assessment ExpertDonor Support Technician 10/27/23 [employer] 11/06/24 documented as of this encounter
--- OUTSIDE RECORDS SUMMARY | 2025-04-10 09:16 | XMS_ITS | Encounter Summary ---
Author Organization [employer] Address [address] [place] [address] 7t [place] [address] Care Team Providers Care Racecourse Barrier Attendant Name Role Phone Evelyn Ledesma Primary Care Provider Silvana Oralia Alamo MD Primary Care Provider [phone] Zeinab Sykes MD Primary Care Provider + Encounter Details Date Type Department Care Team ([facility] Contact Info) Description 08/20/2022 Orders Only [address] [address] Karen Henderson FNP Social History Tobacco Use [...] Upcoming Encounters Date Type Department Care Team ([facility] Contact Info) Description 05/28/2025 11:00 AM EST Office Visit [address] [address] 06/05/2025 11:30 AM EST Office Visit [address] [place] [address] Zeinab Sykes MD [address] [place] [address] 10/03/2025 12:45 PM EDT Office Visit [facility] ADULT DENTAL [address] [place] [address] Fabi Hogue [address] [place] [address] documented as of this encounter Visit Diagnoses Not on filedocumented in this encounter Care Teams Racecourse Barrier Attendant Relationship Specialty Start Date End Date Evelyn Ledesma FNP PCP - General Family Medicine 03/15/22 04/25/23 Oralia Aguila MD [address] [place] [address] [phone] PCP - General Family Medicine 04/26/23 01/01/24 Zeinab Sykes MD [address] [place] [address] [phone] PCP - General Internal Medicine 01/02/24 Tomeka Martins Instructional Media Services TechnicianApplications Developer 10/27/23 [employer] 11/06/24 documented as of this encounter
--- OUTSIDE RECORDS SUMMARY | 2025-04-10 09:16 | XMS_ITS | Encounter Summary ---
Author Organization [employer] Address [address] [facility] [address] [place] [address] Care Team Providers Care Stacker Attendant Name Role Phone Zeinab Sykes MD Primary Care Provider + Encounter Details Date Type Department Care Team ([facility] st Contact Info) Description 09/20/2024 Orders Only [facility] MED [facility] PEDS [address] [place] [address] Provider, MD Parag Social History Tobacco Use [...] Description 05/28/2025 11:00 AM EST Office Visit [facility] MEDICINE [address] [place] [address] 06/05/2025 11:30 AM EST Office Visit [facility] MEDICINE [address] [place] [address] Zeinab Sykes MD [address] [place] [address] 10/03/2025 12:45 PM EDT Office Visit [facility] ADULT DENTAL [address] [place] [address] Mykel Fabi [address] [place] [address] documented as of this encounter Goals Goal Patient Goal Type Associated Problems Recent Progress Patient-Stated? Author Patient will manage their medication General On track( 023 11:18 AM EDT) No Citlali Armando, PharmD Note: Began medboxes. Goal achieved 11/19/22. Patient graduated from [facility]. documented as of this encounter Procedures [...] PM EDT Narrative 10/19/2024 4:14 PM EDT [place] [address] CT Scan Report Signed Patient: Rhonda Fernández MR# : [id number] : 1960 Acct:[id number] Age/Sex: 63 / F ADM Date: 10/18/24 Loc: HO.CT Attending Dr: Nolberto Quigley MD Ordering Physician: Nolberto Quigley MD Date of Service: 10/18/24 Procedure(s): CT abdomen pelvis w IV con Accession Number(s): [id number] cc: Zeinab Sykes MD; Nolberto Quigley MD Report Number: [id number]: Total DLP = 538.00 mGy-cm CLINICAL HISTORY: [...] 10/19/24 1614 DD/ 1613 TD/TT: 10/19/24 1613 Window Shade Cutter: Procedure Note Donotuseinterpreter, Image - 10/19/[address] [address] [address] Scan Report Signed Patient: Spenser FernándezR# : [id number] : 1960Acct:[id number] Age/Sex: 63 / FADM Date: 10/18/24 Loc: HO.CT Attending Dr: Nolberto Quigley MD Ordering Physician: Nolberto Quigley MD Date of Service: 10/18/24 Procedure(s): CT abdomen pelvis w IV con Accession Number(s): [id number] cc: Zeinab Sykes MD; Nolberto Quigley MD Report Number: [id number]: Total DLP = 538.00 mGy-cm CLINICAL HISTORY: [...] 10/19/24 1614 DD/ 1613 TD/TT: 10/19/24 1613 Window Shade Cutter: [facility] External Provider IMG CT PROCEDURES Final Result * XR Wrist 3+ Views Left (10/16/2024 5:26 PM EDT) Anatomical Region Laterality Modality Upper Extremities, Wrist Left Radiogr aphic Imaging 10/16/2024 5:26 PM EDT Narrative 10/16/2024 5:28 PM EDT [address] [address] XRay Report Signed Patient: Rhonda Fernández MR# : [id number] : 1960 Acct:[id number] Age/Sex: 63 / F ADM Date: 10/16/24 Loc: HO.ED Attending Dr: Ordering Physician: Lanette Laura PA-C Date of Service: 10/16/24 Procedure(s): XR wrist LT min 3V Accession Number(s): [id number] cc: Zeinab Sykes MD; Lanette Laura PA-C [...] in OV> 10/16/241726 DD/ 25 TD/TT: 10/16/241725 Window Shade Cutter: Procedure Note Donotuseinterpreter, Image - 10/16/2024 [place] [address] XRay Report Signed Patient: Karla Fernández# : [id number] : 1960Acct:[id number] Age/Sex: 63 / FADM Date: 10/16/24 Loc: HO.ED Attending Dr: Ordering Physician: Lanette Laura PA-C Date of Service: 10/16/24 Procedure(s): XR wrist LT min 3V Accession Number(s): [id number] cc: Zeinab Sykes MD; Lanette Laura PA-C [...] in OV> 10/16/241726 DD/ 25 TD/TT: 10/16/241725 Window Shade Cutter: [facility] External Provider IMG XR PROCEDURES Final Result * XR Hip left with Pelvis 1 view (10/16/2024 5:24 PM EDT) Anatomical Region Laterality Modality Lower Extremities, Hip Bilateral Radiograp hic Imaging 10/16/2024 5:24 PM EDT Narrative 10/16/2024 5:26 PM EDT [address] [address] XRay Report Signed Patient: Rhonda Fernández MR# : [id number] : 1960 Acct:[id number] Age/Sex: 63 / F ADM Date: 10/16/24 Loc: HO.ED Attending Dr: Ordering Physician: Lanette Laura PA-C Date of Service: 10/16/24 Procedure(s): XR hip LT w PEL1V Accession Number(s): [id number] cc: Zeinab Sykes MD; Lanette Laura PA-C CLINICAL HISTORY: TTP lateral hip 3 view, pelvis and left hip Comparison: None Findings: There is a left joec sacral electrode. Mild arthritic change of the left hip. The soft tissues are unremarkable. IMPRESSION: No acute findings. This document has been electronically signed by: Enedina Beltran MD on 10/16/2024 17:24:20 Dictated By: Enedina Beltran MD Signed By: <Electronically signed by Enedina Beltran MD in OV> 10/16/241724 DD/ 23 TD/TT: 10/16/241723 Window Shade Cutter: Procedure Note Donotuseinterpreter, Image - 10/16/[address] [address] XRay Report Signed Patient: Spenser FernándezR# : [id number] : 1960Acct:[id number] Age/Sex: 63 / FADM Date: 10/16/24 Loc: HO.ED Attending Dr: Ordering Physician: Lanette Laura PA-C Date of Service: 10/16/24 Procedure(s): XR hip LT w PEL1V Accession Number(s): [id number] cc: Zeinab Sykes MD; Lanette Laura PA-C [...] in OV> 10/16/241724 DD/ 23 TD/TT: 10/16/241723 Window Shade Cutter: [facility] External Provider IMG XR PROCEDURES Final Result * XR Elbow 3+ Views Left (10/16/2024 5:23 PM EDT) Anatomical Region Laterality Modality Upper Extremities, Elbow Left Radiogr aphic Imaging 10/16/2024 5:23 PM EDT Narrative 10/16/2024 5:25 PM EDT [place] [address] XRay Report Signed Patient: Rhonda Fernández MR# : [id number] : 1960 Acct:[id number] Age/Sex: 63 / F ADM Date: 10/16/24 Loc: HO.ED Attending Dr: Ordering Physician: Lanette Laura PA-C Date of Service: 10/16/24 Procedure(s): XR elbow LT min 3V Accession Number(s): [id number] cc: Zeinab Sykes MD; Lanette Laura PA-C [...] OV> 10/16/24 1724 DD/ 22 TD/TT: 10/16/241722 Window Shade Cutter: Procedure Note Mary, Image - 10/16/[address] [address] XRay Report Signed Patient: Spenser FernándezR# : [id number] : 1960Acct:[id number] Age/Sex: 63 / FADM Date: 10/16/24 Loc: HO.ED Attending Dr: Ordering Physician: Lanette Laura PA-C Date of Service: 10/16/24 Procedure(s): XR elbow LT min 3V Accession Number(s): [id number] cc: Zeinab Sykes MD; Lanette Laura PA-C [...] signed by Enedina Beltran MD in OV> 10/16/244 DD/ 22 TD/TT: 10/16/241722 Window Shade Cutter: [facility] External Provider IMG XR PROCEDURES Final Result * CT Cervical Spine w/o Contrast (10/16/2024 5:18 PM EDT) Anatomical Region Laterality Modality Spine, C-spine Computed Tomogra phy 10/16/2024 5:18 PM EDT Narrative 10/16/2024 5:19 PM EDT [address] [address] [address] Scan Report Signed Patient: Rhonda Fernández MR# : [id number] : 1960 Acct:[id number] Age/Sex: 63 / F ADM Date: 10/16/24 Loc: HO.ED Attending Dr: Ordering Physician: Lanette Laura PA-C Date of Service: 10/16/24 Procedure(s): CT cervical spine wo IV con Accession Number(s): [id number] cc: Zeinab Sykes MD; Lanette Laura PA-C Report Number: [id number]: Total DLP = 605.00 mGy-cm CLINICAL HISTORY: [...] in OV> 10/16/241718 DD/ 17 TD/TT: 10/16/241717 Window Shade Cutter: Procedure Note Donotuseinterpreter, Image - 10/16/[address] [place] [address] [address] Scan Report Signed Patient: Spenser FernándezR# : [id number] : 1960Acct:[id number] Age/Sex: 63 / FADM Date: 10/16/24 Loc: HO.ED Attending Dr: Ordering Physician: Lanette Laura PA-C Date of Service: 10/16/24 Procedure(s): CT cervical spine wo IV con Accession Number(s): [id number] cc: Zeinab Sykes MD; Lanette Laura PA-C Report Number: [id number]: Total DLP = 605.00 mGy-cm CLINICAL HISTORY: [...] OV> 10/16/24 1719 DD/ 17 TD/TT: 10/16/241717 Window Shade Cutter: [facility] External Provider IMG CT PROCEDURES Final Result * Hm Colonoscopy (11/05/2020 11:36 AM EDT) Historical Provider HEALTH MAINTENANCE Final Result documented in this encounter Visit Diagnoses Not on filedocumented in this encounter Additional Health Concerns Assessment Noted Time PHQ-9 Depression Total Score: 22 025 10:31 AM EST documented as of this encounter Care Teams Stacker Attendant Relationship Specialty Start Date End Date Zeinab Sykes MD [address] [place] [address] PCP - General Internal Medicine 01/02/24 Tomeka Martins Television Production TechnicianHat Blocker 10/27/23 Tj Caring 11/06/24 documented as of this encounter
--- OUTSIDE RECORDS SUMMARY | 2025-04-10 09:16 | XMS_ITS | Encounter Summary ---
Author Organization [employer] Address [address] [facility] 7t [place] [address] Care Team Providers Care Cleater Name Role Phone Zeinab Sykes MD Primary Care Provider + Reason for Visit * Reason Comments Med Refill Encounter Details Date Type Department Care Team ([facility] st Contact Info) Description 02/16/2025 Refill [facility] MEDICINE [address] [place], [place] [phone] Zeinab Sykes MD [address] [place], [place] [phone] Neuropathy Social History Tobacco Use Types Packs/Day [...] 11:00 AM EST Office Visit [facility] MEDICINE [address] [place] [address] 06/05/2025 11:30 AM EST Office Visit [facility] MEDICINE [address] [place] [address] Zeinab Sykes MD [address] [place] [address] 10/03/2025 12:45 PM EDT Office Visit [facility] ADULT DENTAL [address] [place] [address] Fabi Hogue [address] [place] [address] documented as of this encounter Goals Goal [...] documented as of this encounter Care Teams Cleater Relationship Specialty Start Date End Date Zeinab Sykes MD [address] [place] [address] PCP - General Internal Medicine 01/02/24 Tomeka Martins Windows Application DeveloperSfdc Architect 10/27/23 [employer] 11/06/24 documented as of this encounter
--- OUTSIDE RECORDS SUMMARY | 2025-04-10 09:16 | XMS_ITS | Encounter Summary ---
Author Organization [employer] Address [address] [facility] 7t [place] [address] Care Team Providers Care Doubler Helper Name Role Phone Evelyn Ledesma Primary Care Provider Oralia Dukes MD Primary Care Provider [phone] Zeinab Sykes MD Primary Care Provider + Reason for Visit * Reason Onset Date Comments Prior Authorization 12/28/2022 Encounter Details Date Type Department Care Team (Late st Contact Info) Description 12/28/2022 Telephone [facility] MEDICINE [address] [place] [address] Evelyn Ledesma FNP Prior Authorization Social History [...] AM EDT T/C placed to pt via [employer] Zeinab #[id number]. Advised of message from pcp re: lab [...] all other NSAIDS. 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 If not, your PCP would like [...] AM EDT TC luis m Emery from [employer] requesting XL pull ups and disposable under pads . States faxed request couple days ago and have not gotten a response . Informs paper work 12/29/22. Please call to clarify at phone # [phone] . documented in this encounter Plan of Treatment Upcoming Encounters Date Type Department Care Team (Late st Contact Info) Description 05/28/2025 11:00 AM EST Office Visit [facility] MEDICINE [address] [place] [address] 06/05/2025 11:30 AM EST Office Visit [facility] MEDICINE [address] [place] [address] Zeinab Sykes MD [address] [place] [address] 10/03/2025 12:45 PM EDT Office Visit [facility] ADULT DENTAL [address] [place] [address] Fabi Hogue [address] [place] [address] documented as of this encounter Goals Goal Patient Goal Type Associated Problems Recent Progress Patient-Stated? Author Patient will manage their medication General On track( 023 11:18 AM EDT) No Citlali Armando PharmD Note: Began medboxes. Goal achieved 11/19/22. Patient graduated from [facility]. documented as of this encounter Visit Diagnoses Not on filedocumented in this encounter Care Teams Doubler Helper Relationship Specialty Start Date End Date Evelyn Ledesma FNP PCP - General Family Medicine 03/15/22 04/25/23 Oralia Aguila MD [address] [place] [address] PCP - General Family Medicine 04/26/23 01/01/24 Zeinab Sykes MD [address] [place] [address] PCP - General Internal Medicine 01/02/24 Tomeka Martins Chief RecordistBag Tester 10/27/23 [employer] 11/06/24 documented as of this encounter
--- OUTSIDE RECORDS SUMMARY | 2025-04-10 09:16 | XMS_ITS | Encounter Summary ---
Author Organization [employer] Address [address] [facility] [address] [place] [address] Care Team Providers Care Supervisor [employer] Name Role Phone Evelyn Ledesma Primary Care Provider Oralia Dukes MD Primary Care Provider [phone] Zeinab Sykes MD Primary Care Provider + Reason for Visit * Reason Onset Date Comments Appointment Request 12/20/2022 Encounter Details Date Type Department Care Team (Late st Contact Info) Description 12/20/2022 Telephone [facility] MEDICINE [address] [place] [address] Evelyn Ledesma FNP Appointment Request Social History [...] an earlier day) Please contact pt at [phone] documented in this encounter Plan of Treatment Upcoming Encounters Date Type Department Care Team (Late st Contact Info) Description 05/28/2025 11:00 AM EST Office Visit [facility] MEDICINE [address] [place] [phone] 06/05/2025 11:30 AM EST Office Visit [facility] MEDICINE [address] [place] [address] Zeinab Sykes MD [address] [place] [phone] 10/03/2025 12:45 PM EDT Office Visit [facility] ADULT DENTAL [address] [place] [phone] Mykel, Fabi [address] [place] [address] documented as of this encounter Goals Goal Patient Goal Type Associated Problems Recent Progress Patient-Stated? Author Patient will manage their medication General On track( 023 11:18 AM EDT) Citlali Ocampo, Anoop Note: Began medboxes. Goal achieved 11/19/22. Patient graduated from [facility]. documented as of this encounter Visit Diagnoses Not on filedocumented in this encounter Care Teams Supervisor [employer] Relationship Specialty Start Date End Date Evelyn Ledesma FNP PCP - General Family Medicine 03/15/22 04/25/23 Oralia Aguila MD [address] [place] [address] PCP - General Family Medicine 04/26/23 01/01/24 Zeinab Sykes MD [address] [place] [address] PCP - General Internal Medicine 01/02/24 Tomeka Martins Erp Technical LeadGeodetic Advisor 10/27/23 [employer]T Caring 11/06/24 documented as of this encounter
--- OUTSIDE RECORDS SUMMARY | 2025-04-10 09:16 | XMS_ITS | Clinical Summary ---
Author Organization [employer] Address [address] [facility] 7t [place] [address] Care Team Providers Care Catholic Priest Name Role Phone Zeinab Sykes MD Primary [...] in the morning. Active oxymetazoline (Afrin Nasal [place]) 0.05 % nasal spray Administer 2 sprays [...] complication, without long-term current use of insulin ([facility]) 1 each by Other route Once per day. USE TO TEST BLOOD SUGAR ONCE A DAY 100 each 3 024 Active glucose blood (FREESTYLE LITE) test stripIndications:T ype 2 diabetes mellitus without complication, without long-term current use of insulin ([facility]/HCC) USE TO TEST BLOOD SUGAR ONCE [...] 025 Active ergocalciferol (Vitamin D2) 1.25 MG (36088 UT) capsule Take 1 capsule (1.25 mg) [...] 024 2024 Discontinued(T herapy completed) sodium chloride ([place] Nasal [place]) 0.65 % nasal sprayIndications:A cute nasopharyngitis Administer [...] bx, I will fu or refer to [facility] after US reports. Left foot pain 03/29/2024 [...] L4-5 and right L5-S1 decompressive laminectomy at [facility] - surgeon Dr. Melia Pedroza DME request for 10-in-1 pillow on 07/31/24 (not approved by insurance) Assessment & Plan (10/23/2024 2:47 PM EDT): Known DDD L-spine with radiculopathy sxs 05/26/2018 - Lumbar decompression surgery: L4-5 and right L5-S1 decompressive laminectomy at [facility] - surgeon Dr. Melia Pedroza DME request for 10-in-1 pillow on 07/31/24 (not approved by insurance) Assessment & Plan (09/27/2024 11:23 AM EDT): Known DDD L-spine with radiculopathy sxs 05/26/2018 - Lumbar decompression surgery: L4-5 and right L5-S1 decompressive laminectomy at [facility] - surgeon Dr. Melia Pedroza DME request for 10-in-1 pillow on 07/31/24 (not approved by insurance) Assessment & Plan (07/31/2024 4:58 PM EST): Known DDD L-spine with radiculopathy sxs 05/26/2018 - Lumbar decompression surgery: L4-5 and right L5-S1 decompressive laminectomy at [facility] - surgeon Dr. Melia Pedroza DME request for 10-in-1 pillow on 07/31/24 Assessment & Plan (05/29/2024 5:18 PM EST): Known DDD L-spine with radiculopathy sxs 05/26/2018 - Lumbar decompression surgery: L4-5 and right L5-S1 decompressive laminectomy at [facility] - surgeon Dr. Melia Pedroza [...] disc, s/p vagus nerve stimulator, neuropathy Last TEST DESIGN ENGINEER Agreement: 02/26/25 Tier 3: TEST DESIGN ENGINEER visit Q4-6 months. (Last evaluated Jul 2024 [...] of scalp 01/02/2024 Overview (01/02/2024): Seen at [facility] dermatology Assessment & Plan (03/20/2024 3:50 PM EDT): Generally well controlled, encouraged to continue fu with [facility] derm Refill for fluocinolone today. Housing insecurity 01/02/2024 Assessment & Plan (08/15/2024 1:36 PM EST): See above. Applying for housing and need handicap access. Assessment & Plan (03/20/2024 3:51 PM EDT): Awaiting housing application, lives in abasement FU with [facility]. Stage 3a chronic kidney disease 11/01/2023 Assessment [...] albuterol prn. Will refer her back to heating and blending supervisor. RUQ pain 10/05/2023 Assessment & Plan (11/01/2023 3:28 PM EDT): Pt was seen in [facility] for RUQ. US was ordered but pending. [...] ballon inside the gastric body placed in [place] for bariatric procedure about 20 cm in [...] lumbar r egion 05/17/2017 Overview (09/17/2022): On TEST DESIGN ENGINEER contract. discussed tapering percocet options, not interested.. Referred to [facility] forms dept for handicap plackards documents. Referred to [facility] for polypharmacy education. Continue medications as prescribed. Discussed Narcan. Encouraged nonpharmacologic pain relief strategies. will f/up next visit Assessment & Plan (04/02/2025 3:45 PM EDT): On [facility] contract, continue Percocet 3-4 times per day and follow-up with chronic pain management program and TEST DESIGN ENGINEER nurse. We have done [employer] education re [...] & Plan (03/20/2024 3:48 PM EDT): On TEST DESIGN ENGINEER contract. discussed tapering percocet options, not interested, it apparently offers partial enough improvement of sxs. Patient is aware that terminal computer operator use of opiates can cause hyperalgesia, liver toxicity, COURT ADMINISTRATOR toxicity, increase anxiety, among others. Will continue to work with chronic pain management [facility] clinic. Continue medications as prescribed. Discussed Narcan. [...] elevated BP readings.. Referred to [facility] for polypharmacy education. Continue medications as [...] pseudophedrine short term. Will refer her to heating and blending supervisor again so she can be evaluated for allergy and receive treatment if indicated. Acute maxillary sinusitis 09/08/2023 Viral URI 09/03/2022 09/13/2023 Back pain 08/20/2022 12/30/2022 Onychomycosis of multiple to enails with type 2 diabetes mellitus (CMS/HCC) 05/17/2017 03/29/2024 Encounters * This document contains information received from the source organization and may not represent a complete record from that organization. Date Type Department Care Team Description 04/10/2025 8:00 AM EDT Office Visit [facility] [address] [place] [address] [phone] Gay Thompson DDS Arrived 04/09/2025 Telephone [facility] [address] [place] [address] [phone] Zeinab Sykes MD telephone call 04/04/2025 11:15 AM EDT Office Visit [facility] [address] [place] [address] 42601 Gay Thompson DDS Edentulism (Primary Dx); Partially edentulous mandible, class I edentulism 04/02/2025 11:15 AM EDT Office Visit [facility] [address] [place] [address] [phone] Zeinab Sykes MD Type 2 diabetes mellitus without complication, without long-term current use of insulin (CMS/HCC) (Primary Dx); Essential hypertension; Arthritis; Moderate persistent asthma without complication; Recurrent major depressive disorder, in partial remission (CMS/HCC); Other intervertebral disc displacement, lumbar region; Memory impairment; Tubular adenoma of colon; Class 2 severe obesity due to excess calories with serious comorbidity and body mass index (BMI) of 35.0 to 35.9 in adult (CMS/HCC); Obesity (BMI 35.0-39.9 without comorbidity); Screening mammogram for breast cancer 04/02/2025 Patient Outreach [facility] [address] [place] [address] [phone] Zeinab Sykes MD Care Coordination (CHW outreach for SDOH housing search-referral completed ) 04/02/2025 Travel 04/02/2025 Telephone [facility] [address] [place] [address] [phone] Zeinab Sykes MD appt change 03/27/2025 11:15 AM EDT Office Visit [facility] [address] [place] [address] Watkins-Maynard, Gay, DDS Edentulism (Primary Dx); Partially edentulous mandible, class I edentulism 03/27/2025 Refill [facility] [address] [place] [address] Janessa Jolley MD Other intervertebral disc displacement, lumbar region 03/19/2025 11:00 AM EDT Office Visit [facility] [address] [place] [address] Watkins-Maynard, Gay, DDS Edentulism (Primary Dx); Partially edentulous mandible, class I edentulism 03/08/2025 10:00 AM EDT Office Visit [facility] [address] [place] [address] Watkins-Maynard, Gay, DDS Edentulism (Primary Dx); Partially edentulous mandible, class I edentulism 03/06/2025 Refill [facility] [address] [place] [address] [phone] Zeinab Sykes MD Neuropathy 02/27/2025 Refill [facility] [address] [place], [place] [phone] Zeinab Sykes MD Other intervertebral disc displacement, lumbar region 02/26/2025 11:00 AM EDT Office Visit [facility] [address] [place] [address] Alma Jha FNP Lumbar back pain with radiculopathy affecting left lower extremity (Primary Dx); Long-term current use of opiate analgesic 02/26/2025 Travel 02/21/2025 Telephone [facility] [address] [place] [address] 24062 Zeinab Sykes MD Prior Authorization (CCA PA: Lidocaine 5% Patch) 02/20/2025 Refill [facility] [address] [place] [address] [phone] Zeinab Sykes MD Other intervertebral disc displacement, lumbar region 02/18/2025 Telephone [facility] [address] [place] [address] 05227 Zeinab Sykes MD Referral 02/18/2025 Telephone [facility] [address] [place] [address] [phone] Zeinab Sykes MD Durable Medical Equipment (DME Order: Multiple Items) 02/16/2025 Refill [facility] [address] [place] [address] 18527 Zeinab Sykes MD Neuropathy 01/28/2025 Refill [facility] [address] [place] [address] Zeinab Sykes MD Other intervertebral disc displacement, lumbar region 01/21/2025 Telephone [facility] [address] [place] [address] [phone] Scarlett Gibbs RN Rescheduled chronic pain group 01/15/2025 Refill [facility] [address] [place] [address] 53981 Janessa Jolley MD Seasonal allergic rhinitis, unspecified trigger 01/12/2025 Refill [facility] [address] [place] [address] Zeinab Sykes MD Left hand pain 01/09/2025 Telephone [facility] [address] [place] [address] 23951 Zeinab Sykes MD chart prep from Last [...] Description 05/28/2025 11:00 AM EST Office Visit [facility] [address] [place] [address] [phone] 06/05/2025 11:30 AM EST Office Visit [facility] [address] [place] [address] [phone] Zeinab Sykes MD [address] [place] [phone] 10/03/2025 12:45 PM EDT Office Visit [facility] [address] [place] [address] Fabi Hogue [address] [place] [address] Health Maintenance Due Date Last Done Comments [...] exists SDOH Screening 04/02/2026 04/02/2025 Tobacco Screening 04/10/2026 04/10/2025 Pap Smear 06/01/2027 06/01/2024, 07/07/2020 Dental X-Ray: [...] Goal achieved 11/19/22. Patient graduated from [facility]. Procedures Procedure Name Priority Date/Time [...] Media Lot # [id number] Lot# Expiration Date ,703,619 Blood 04/02/2025 11:5 9 AM EDT Zeinab Sykes MD POINT OF CARE TE ST ENTER/EDIT ORDERABLES Edited Result - Final * POCT Glucose (04/02/2025 11:57 AM EDT) Glucose Blood, POC 139 60 - 200 mg/dL Comment:random QC Media Lot # [id number] Lot# Expiration Date ,[id number] Blood Capillary blood specimen / Unknown 04/02/2025 [...] Unknown 02/26/2025 11:46 AM EDT Narrative Jasmyn Menjivar RN - 02/26/2025 11:46 AM EDT .UTOX cup Lot#[id number] Exp. 04/23/26 Internal Pass Control Alma Jha SCORE CALLER POINT OF CARE TEST ENTER/EDIT ORDERABLES Final Result * Pap Smear (06/01/2024 2:43 PM EST) 06/01/2024 2:43 PM EST 06/04/2024 9:25 AM EST [facility] - 06/20/2024 7:51 AM EST ----- ------- Name: Rhonda Fernández Age/Sex: 63/F : 1960 Unit#: [id number] Attend Dr: Aisha Mcclain CNM Re06/01/24 Status: [facility] REF Location: [facility] Disch: ----- ------- SPEC : [id number] RECD: 06/04/24 STATUS: HODA RETheresa NUM: [id number] DARWIN: 06/01/24-1442 [facility] DR: Aisha Mcclain CNM ENTERED: 06/04/24-1001 SP TYPE: Pap Smr OT DR: Zeinab Sykes MD ORDERED: Pap Smear Interpretation Satisfactory for evaluation. Negative for intraepithelial lesion or malignancy. No endocervical cells seen. Mild inflammation. HPV High Risk: Negative HPV Genotyping 16: Negative HPV Genotyping 18: Negative Clinical Information LMP: Postmenopausal Previous PAP test: Unknown date, WNL Material Received ThinPrep-Cervical Copies To: Zeinab Sykes MD [facility] [address] [place] [address] Aisha Mcclain CNM [facility] [address] [place] [address] ----- ------- Signed (signature on file) INDERJIT Bloom (ASCP) 06/20/24 0751 ----- ------- END OF REPORT Generic External Data Provider LAB CYTOLOGY JERED STAFFORD Final Result [facility] [address] [place] [address] [phone] * (ABNORMAL) Lipid Panel with Reflex to Direct LDL (01/06/2024 12:38 PM EDT) Triglycerides 91 <150 mg/dL [facility] Comment:Desirable Triglyceri de: less than 150 mg/dLBorderline High Triglyceride 150-199 mg/dLHigh Triglyceride: 200-499 mg/dLVery High Triglyceride: greater than or equal to 5OO mg/dL Cholesterol 211(H) <200 mg/dL [facility] Comment:Desirable Cholestero l: less than 200 mg/dLBorderline High Cholesterol: 200-239 mg/dLHigh Cholesterol: greater than 239 mg/dL LDL Cholesterol Calculated 132(H) <100 mg/dL [facility] Comment:Desirable LDL: less than 100 mg/dLNear Optimal/Above Optimal LDL: 110- 129 mg/dLBorderline High LDL: 130-159 mg/dLHigh LDL: 160-189 mg/dLVery High LDL: greater than or equal to 190 mg/dL HDL Cholesterol 61 >40 mg/dL [facility] Comment:Desirable HDL: great er than 40 mg/dL Note: This HDL assay may give artificially low results in patients with liver disease. Blood 01/06/2024 12:3 8 PM EDT 01/06/2024 4:21 PM EDT us Zeinab Sykes MD LAB BLOOD ORDERABLES Fin al Result Performing Organization Address [facility] de Phone Number [facility] [address] [place] [phone] * Hepatitis Panel, General (01/06/2024 12:38 PM EDT) Hepatitis A IgM Nonreactive Nonreactive [facility] Comment:IgM antibodies to GUERIN V not detected; does not exclude earlyacute or recovered HAV infection. ~Hepatitis B Surface Antibody REACTIVE Nonreactive [facility] Comment:REACTIVE: > 11.99 mI U/mL Hepatitis B Core Antibody Nonreactive Nonreactive [facility] Hepatitis C Antibody Nonreactive Nonreactive [facility] Comment:Antibodies to HCV no t detected; does not exclude early acuteHCV infection. Hepatitis B Surface Ag Negative Negative [facility] Blood 01/06/2024 12:3 8 PM EDT 01/06/2024 4:21 PM EDT Zeinab Sykes MD LAB BLOOD ORDERABLES Fin al Result Performing Organization Address [facility] Co de Phone Number [facility] [address] [place] [phone] * Mammography Report 1 (03/15/2022 5:00 PM EDT) Anatomical Region Laterality Modality Breast Bilateral Mammography 03/15/2022 5:00 PM EDT Narrative 03/16/2022 8:33 AM EDT Refer to the Notes tab for result details [facility] Procedure: Mammography Report 1 Procedure Note Provider, Parag, - 10/10/2022 Refer to the Notes tab for result details [facility] Procedure: Mammography Report 1 Evelyn Carlin Baltazar SCORE CALLER IMG BI PROCEDURES Final Re sult * [...] SYSTEM 03/08/2022 3:04 PM EDT Rebekah Guevara MARKETING PRODUCTION COORDINATOR LAB URINE ORDERABLES Final Res ult [facility] [address] * Hm Colonoscopy (11/05/2020 11:36 AM EDT) Historical Provider HEALTH MAINTENANCE Final Result * HPV mRNA E6/E7 (07/07/2020 12:00 AM EST) HPV nRNA E6/E7 Not Detected Not Detected [facility] Comment: This test was performed using the APTIMA HPV Assay ([employer] This assay detects E6/E7 viral messenger RNA (mRNA) from 14 high-risk HPV types (16,18,31,33,35,39,45,51,52,56,58,59,66,68). The analytical performance characteristics of this assay have been determined by [employer] The modifications have not been cleared or approved by the FDA. This assay has been validated pursuant to the CLIA regulations and is used for clinical purposes. 07/07/2020 us Historical Provider LAB BLOOD ORDERABLES Sera hayes Result [facility] [address] from Last 3 Months or Most Recently Relevant to Health Maintenance [facility] OPTIONS (HMO D-SNP) [facility] Care Teams Catholic Priest Relationship Specialty Start Date End Date Zeinab Sykes MD [address] [place] [phone] PCP - General Internal Medicine 01/02/24 Tomeka Martins Surgical Dressing MakerFarm Contractor 10/27/23 Nikhilara Caring 11/06/24
--- OUTSIDE RECORDS SUMMARY | 2025-04-10 09:16 | XMS_ITS | Encounter Summary ---
Author Organization [employer] Address [address] [facility] 7t [place] [address] Care Team Providers Care Cocoa Powder Mixer Operator Name Role Phone Evelyn LedesmaP Primary Care Provider Oralia Dukes MD Primary Care Provider Zeinab Sykes MD Primary Care Provider + Reason for Visit * Reason Onset Date Comments case from lab 11/04/2022 Encounter Details Date Type Department Care Team (Late st Contact Info) Description 11/04/2022 Telephone [facility] [address] [place] [address] Asad Shore, DDS [address] [place] [address] case from lab Social History Tobacco Use [...] Description 05/28/2025 11:00 AM EST Office Visit [facility] [address] [place] [address] 06/05/2025 11:30 AM EST Office Visit [facility] [address] [place] [address] Zeinab Sykes MD [address] [place] [address] 10/03/2025 12:45 PM EDT Office Visit [facility]ULT [facility] [address] [place] [address] Mykel, Fabi [address] [place] [address] documented as of this encounter Visit Diagnoses Not on filedocumented in this encounter Care Teams Cocoa Powder Mixer Operator Relationship Specialty Start Date End Date Evelyn Ledesma FNP PCP - General Family Medicine 03/15/22 04/25/23 Oralia Aguila MD [address] [place] [address] PCP - General Family Medicine 04/26/23 01/01/24 Zeinab Sykes MD [address] [place] [address] PCP - General Internal Medicine 01/02/24 Tomeka Martins Box Car WasherInstitutional Cook 10/27/23 [employer] 11/06/24 documented as of this encounter
--- OUTSIDE RECORDS SUMMARY | 2025-04-10 09:17 | XMS_ITS | Encounter Summary ---
Author Organization [employer] Address [address] [facility] 7t [place] [address] Care Team Providers Care Pumper Gauger Apprentice Name Role Phone Evelyn LedesmaP Primary Care Provider Oralia Dukes MD Primary Care Provider [phone] Zeinab Sykes MD Primary Care Provider + Reason for Visit * Reason Onset Date Comments medical clearance 02/11/2023 Encounter Details Date Type Department Care Team (Late st Contact Info) Description 02/11/2023 Telephone [facility] [address] [place] [address] Asad Shore, DDS [address] [place] [address] medical clearance Social History Tobacco Use Types [...] Description 05/28/2025 11:00 AM EST Office Visit [facility] [address] [place] [address] 06/05/2025 11:30 AM EST Office Visit [facility] [address] [place] [address] [phone] Zeinab Sykes MD [address] [place] [address] 10/03/2025 12:45 PM EDT Office Visit [facility] ADULT DENT[facility] [address] [place] [address] Fabi Hogue [address] [place] [address] documented as of this encounter Goals Goal Patient Goal Type Associated Problems Recent Progress Patient-Stated? Author Patient will manage their medication General On track( 023 11:18 AM EDT) Citlali Ocampo, PharmCatrachita Note: Began medboxes. Goal achieved 11/19/22. Patient graduated from [facility]. documented as of this encounter Visit Diagnoses Not on filedocumented in this encounter Care Teams Pumper Gauger Apprentice Relationship Specialty Start Date End Date Evelyn Ledesma FNP PCP - General Family Medicine 03/15/22 04/25/23 Oralia Aguila MD [address] [place] [address] [phone] PCP - General Family Medicine 04/26/23 01/01/24 Zeinab Sykes MD [address] [place] [address] PCP - General Internal Medicine 01/02/24 Tomeka Martins Regional Rehabilitation DirectorDrag Car Racer 10/27/23 [employer] 11/06/24 documented as of this encounter
--- OUTSIDE RECORDS SUMMARY | 2025-04-10 09:17 | XMS_ITS | Encounter Summary ---
Author Organization [employer] Address [address] [place] [address] 7 [place] [address] Care Team Providers Care Charting Clerk Name Role Phone Oralia Aguila MD Primary Care Provider [phone] Zeinab Sykes MD Primary Care Provider + Reason for Visit * Reason Comments Med Refill Encounter Details Date Type Department Care Team (Late Contact Info) Description 08/09/2023 Refill [facility] [address] [place] [address] [phone] Oralia Aguila MD [address] [place] [address] [phone] Other intervertebral disc displacement, lumbar region Social [...] Department Care Team (Late Contact Info) Description 05/28/2025 11:00 AM EST Office Visit [facility] [address] [place] [address] [phone] 06/05/2025 11:30 AM EST Office Visit [facility] [address] [place] [address] [phone] Zeinab Sykes MD [address] [place] [address] 10/03/2025 12:45 PM EDT Office Visit [facility]ULT [facility] [address] [place] [address] Fabi Hogue [address] [place] [address] documented as of this encounter Goals Goal Patient Goal Type Associated Problems Recent Progress Patient-Stated? Author Patient will manage their medication General On track( 023 11:18 AM EDT) Citlali Ocampo, PharmD Note: Began medboxes. Goal achieved 11/19/22. Patient graduated from [facility]. documented as of this encounter Visit Diagnoses Diagnosis Other intervertebral disc displacement, lumbar region documented in this encounter Care Teams Charting Clerk Relationship Specialty Start Date End Date Oralia Aguila MD [address] [place] [phone] PCP - General Family Medicine 04/26/23 01/01/24 Zeinab Sykes MD [address] [place] [phone] PCP - General Internal Medicine 01/02/24 Tomeka Martins Investigator NarcoticsTermite Inspector 10/27/23 [facility] 11/06/24 documented as of this encounter
--- OUTSIDE RECORDS SUMMARY | 2025-04-10 09:17 | XMS_ITS | Encounter Summary ---
Author Organization [employer] Address [address] [place] [address] 7 [place] [address] Care Team Providers Care Naturopath Name Role Phone Evelyn Ledesma WASHER OPERATOR Primary Care Provider Oralia Dukes MD Primary Care Provider [phone] Zeinab Sykes MD Primary Care Provider + Encounter Details Date Type Department Care Team (Latest Contact Info) Description 12/21/[address] [facility]VERSION[facility] Dental, Provider, DDS Social [...] Description 05/28/2025 11:00 AM EST Office Visit [facility] [address] [place] [address] 06/05/2025 11:30 AM EST Office Visit [facility] [address] [place] [phone] Zeinab Sykes MD [address] [place] [address] 10/03/2025 12:45 PM EDT Office Visit [facility] ADULT DENTAL [address] [place] [address] Fabi Hogue [address] [place] [address] documented as of this encounter Visit Diagnoses Not on filedocumented in this encounter Care Teams Naturopath Relationship Specialty Start Date End Date Evelyn Ledesma FNP PCP - General Family Medicine 03/15/22 04/25/23 Oralia [place] MD [address] [place], [place] [phone] PCP - General Family Medicine 04/26/23 01/01/24 Zeinab Sykes MD [address] [place], [place] [phone] PCP - General Internal Medicine 01/02/24 Tomeka Martins Inspector Material DispositionBoard Runner 10/27/23 [facility] 11/06/24 documented as of this encounter
--- OUTSIDE RECORDS SUMMARY | 2025-04-10 09:17 | XMS_ITS | Encounter Summary ---
Author Organization [employer] Address [address] [employer] 7t [place] [address] Care Team Providers Care Mail Handler Assistant Name Role Phone Zeinab Sykes MD Primary Care Provider + Reason for Visit * Reason Comments Med Refill Encounter Details Date Type Department Care Team ([facility] st Contact Info) Description 05/04/2024 Refill [facility] MED[facility]INE [address] [place], [place] [phone] Zeinab Sykes MD [address] [place] [address] Other intervertebral disc displacement, lumbar region Social [...] Office Visit [facility] [address] [place] [phone] 06/05/2025 11:30 AM EST Office Visit [facility] MED[facility] [address] [place] [address] Zeinab Sykes MD [address] [place] [address] 10/03/2025 12:45 PM EDT Office Visit [facility] ADULT DENTAL [address] [place] [address] Ymkel, Fabi [address] [place] [address] documented as of this encounter Goals Goal Patient Goal Type Associated Problems Recent Progress Patient-Stated? Author Patient will manage their medication General On track( 023 11:18 AM EDT) No Citlali Armando PharmD Note: Began medboxes. Goal achieved 11/19/22. Patient graduated from [employer]. documented as of this encounter Visit Diagnoses Diagnosis Other intervertebral disc displacement, lumbar region documented in this encounter Additional Health Concerns Assessment Noted Time PHQ-9 Depression Total Score: 18 024 1:46 PM EDT documented as of this encounter Care Teams Mail Handler Assistant Relationship Specialty Start Date End Date Zeinab Sykes MD [address] [place] [address] PCP - General Internal Medicine 01/02/24 Tomeka Martins Md Pediatric AllergistCommunications Attendant 10/27/23 Nikhilara Caring 11/06/24 documented as of this encounter
--- OUTSIDE RECORDS SUMMARY | 2025-04-10 09:17 | XMS_ITS | Encounter Summary ---
Author Organization [employer] Address [address] [place] [address] 7 [place] [address] Care Team Providers Care Debug Technician Name Role Phone Evelyn Ledesma Primary Care Provider Oralia Dukes MD Primary Care Provider [phone] Zeinab Sykes MD Primary Care Provider + Reason for Visit * Reason Comments Med Refill Encounter Details Date Type Department Care Team (Late st Contact Info) Description 02/05/2023 Refill [facility] MEDICINE [address] [place] [address] Evelyn Ledesma FNP Neuropathy Social History Tobacco [...] Description 05/28/2025 11:00 AM EST Office Visit [facility] MEDICINE [address] [place] [address] [phone] 06/05/2025 11:30 AM EST Office Visit [facility] MEDICINE [address] [place] [address] [phone] Zeinab Sykes MD [address] [place] [address] [phone] 10/03/2025 12:45 PM EDT Office Visit [facility] ADULT DENTAL [address] [place], [place] [phone] Fabi Hogue [address] [place], [place] [phone] documented as of this encounter Goals Goal [...] site documented in this encounter Care Teams Debug Technician Relationship Specialty Start Date End Date Evelyn Ledesma FNP PCP - General Family Medicine 03/15/22 04/25/23 Oralia Aguila MD [address] [place] [address] PCP - General Family Medicine 04/26/23 01/01/24 Zeinab Sykes MD [address] [place] [address] PCP - General Internal Medicine 01/02/24 Tomeka Martins Education Department RegistrarTensioning Machine Operator 10/27/23 [facility] 11/06/24 documented as of this encounter
--- OUTSIDE RECORDS SUMMARY | 2025-04-10 09:17 | XMS_ITS | Encounter Summary ---
Author Organization [employer] Address [address] [place] [address] 7t [place] [address] Care Team Providers Care Occupational Health And Safety Adviser Name Role Phone Oralia Aguila MD Primary Care Provider Zeinab Sykes MD Primary Care Provider + Reason for Visit * Reason Onset Date Comments antibiotics pre med 07/19/2023 Encounter Details Date Type Department Care Team ([facility] st Contact Info) Description 07/19/2023 Telephone [facility] ADULT D[facility]AL [address] [place] [address] Stefany Anton, DDS [address] [place] [address] antibiotics pre med Social History Tobacco Use [...] Description 05/28/2025 11:00 AM EST Office Visit [facility] MEDICINE [address] [place] [address] 06/05/2025 11:30 AM EST Office Visit [facility] MEDICINE [address] [place] [address] Zeinab Sykes MD [address] [place] [address] 10/03/2025 12:45 PM EDT Office Visit [facility] ADULT DENTAL [address] [place] [address] Fabi Hogue [address] [place] [address] documented as of this encounter Goals Goal Patient Goal Type Associated Problems Recent Progress Patient-Stated? Author Patient will manage their medication General On track( 023 11:18 AM EDT) No Citlali Armando, Anoop Note: Began medboxes. Goal achieved 11/19/22. Patient graduated from [facility]. documented as of this encounter Visit Diagnoses Not on filedocumented in this encounter Care Teams Occupational Health And Safety Adviser Relationship Specialty Start Date End Date Oralia Aguila MD [address] [place] [address] PCP - General Family Medicine 04/26/23 01/01/24 Zeinab Sykes MD [address] [place] [address] PCP - General Internal Medicine 01/02/24 Tomeka Martins Panama Hat Hydraulic Press OperatorElectrotyper 10/27/23 [facility] 11/06/24 documented as of this encounter
--- OUTSIDE RECORDS SUMMARY | 2025-04-10 09:17 | XMS_ITS | Clinical Summary ---
Author Organization [facility], Address [address] [place] [address] [place] [address] Phone Care Team Providers Care General Assembler Name Role Phone Evelyn Rodriguez Primary Care [...] this topic Insurance Medicaid [place] Care Teams General Assembler Relationship Specialty Start Date End Date Evelyn Rodriguez FNP PCP - General 02/18/23
--- OUTSIDE RECORDS SUMMARY | 2025-04-10 09:17 | XMS_ITS | Encounter Summary ---
Author Organization [facility], Address [address] [place] [address] Phone Care Team Providers Care Financial Administration Officer Name Role Phone Evelyn Rodriguez Primary Care Provider Silvana vailable Encounter Details Date Type Department Care Team (Late st Contact Info) Description 02/18/2023 Documentation Only [facility], [address] [place] [address] Xiao Sheppard [address] [place] [address] Social History Tobacco Use Types [...] on filedocumented in this encounter Care Teams Financial Administration Officer Relationship Specialty Start Date End Date Evelyn Rodriguez FNP PCP - General 02/18/23 documented as of this encounter
--- OUTSIDE RECORDS SUMMARY | 2025-04-10 09:17 | XMS_ITS | Encounter Summary ---
Author Organization [employer] Address [address] [place] [address] 7t [place] [address] Care Team Providers Care Mold Holder Name Role Phone Oralia Aguila MD Primary Care Provider [phone] Zeinab Sykes MD Primary Care Provider + Reason for Visit * Reason Comments Med Refill Encounter Details Date Type Department Care Team (Late Contact Info) Description 07/06/2023 Refill [facility] [address] [place] [address] [phone] Bryn Franklin MD [address] [place] [phone] Social History Tobacco Use Types Packs/Day Years [...] 11:00 AM EST Office Visit [facility] MEDICINE [address] [place] [address] [phone] 06/05/2025 11:30 AM EST Office Visit [facility] MED[facility]INE [address] [place] [address] [phone] Zeinab Sykes MD 230 [place], [place] [phone] 10/03/2025 12:45 PM EDT Office Visit [facility] ADULT DENTAL [address] [place], [place] [phone] Fabi Hogue [address] [place], [place] [phone] documented as of this encounter Goals Goal Patient Goal Type Associated Problems Recent Progress Patient-Stated? Author Patient will manage their medication General On track( 023 11:18 AM EDT) Citlali Ocampo PharmD Note: Began medboxes. Goal achieved 11/19/22. Patient graduated from [facility]. documented as of this encounter Visit Diagnoses Not on filedocumented in this encounter Care Teams Mold Holder Relationship Specialty Start Date End Date Oralia Aguila MD [address] [place] [address] [phone] PCP - General Family Medicine 04/26/23 01/01/24 Zeinab Sykes MD [address] [place] [address] [phone] PCP - General Internal Medicine 01/02/24 Tomeka Martins Policy AnalystHob Machine Operator 10/27/23 [facility] 11/06/24 documented as of this encounter
--- OUTSIDE RECORDS SUMMARY | 2025-04-10 09:17 | XMS_ITS | Encounter Summary ---
Author Organization [employer] Address [address] [place] [address] 7 [place] [address] Care Team Providers Care Pallet Stone Inserter Name Role Phone Oralia Aguila MD Primary Care Provider [phone] Zeinab Sykes MD Primary Care Provider + Reason for Visit * Reason Comments Med Refill Encounter Details Date Type Department Care Team (Late Contact Info) Description 09/21/2023 Refill [facility] MEDICINE [address] [place] [address] [phone] Oralia Aguila MD [address] [place] [address] [phone] Neuropathy Social History Tobacco Use Types Packs/Day [...] Description 05/28/2025 11:00 AM EST Office Visit [facility] MEDICINE [address] [place] [address] [phone] 06/05/2025 11:30 AM EST Office Visit [facility] MEDICINE [address] [place] [address] [phone] Zeinab Sykes MD [address] [place], [place] [phone] 10/03/2025 12:45 PM EDT Office Visit [facility] ADULT DENTAL [address] [place], [place] [phone] Fabi Hogue [address] [place], [place] [phone] documented as of this encounter Goals Goal Patient Goal Type Associated Problems Recent Progress Patient-Stated? Author Patient will manage their medication General On track( 023 11:18 AM EDT) Citlali Ocampo PharmD Note: Began medboxes. Goal achieved 11/19/22. Patient graduated from [facility]. documented as of this encounter Visit Diagnoses Diagnosis Neuropathy Mononeuritis of unspecified site documented in this encounter Care Teams Pallet Stone Inserter Relationship Specialty Start Date End Date Oralia Aguila MD [address] [place] [address] [phone] PCP - General Family Medicine 04/26/23 01/01/24 Zeinab Sykes MD [address] [place] [address] [phone] PCP - General Internal Medicine 01/02/24 Tomeka Martins Professional Bass FisherSet Up Person 10/27/23 [facility] 11/06/24 documented as of this encounter
--- OUTSIDE RECORDS SUMMARY | 2025-04-10 09:17 | XMS_ITS | Encounter Summary ---
Author Organization [employer] Address [address] [place] [address] 7 [place] [address] Care Team Providers Care Church Business Administrator Name Role Phone Evelyn Ledesma CVT RN Primary Care Provider Oralia Dukes MD Primary Care Provider [phone] Zeinab Sykes MD Primary Care Provider + Encounter Details Date Type Department Care Team (Latest Contact Info) Description 10/30/2020 Abstract [facility] Dental, Provider, DDS Social History Tobacco [...] Description 05/28/2025 11:00 AM EST Office Visit [facility]INE [address] [place] [phone] 06/05/2025 11:30 AM EST Office Visit [facility] [address] [place] [address] Zeinab Sykes MD [address] [place] [address] 10/03/2025 12:45 PM EDT Office Visit [facility] ADULT DENTAL [address] [place] [address] Fabi Hogue [address] [place] [address] documented as of this encounter Visit Diagnoses Not on filedocumented in this encounter Care Teams Church Business Administrator Relationship Specialty Start Date End Date Evelyn Ledesma FNP PCP - General Family Medicine 03/15/22 04/25/23 Oralia Aguila MD [address] [place], [place] [phone] PCP - General Family Medicine 04/26/23 01/01/24 Zeinab Sykes MD [address] [place], [place] [phone] PCP - General Internal Medicine 01/02/24 Tomeka Martins Boiler FitterFarm Machine Operator 10/27/23 [facility] 11/06/24 documented as of this encounter
--- OUTSIDE RECORDS SUMMARY | 2025-04-10 09:17 | XMS_ITS | Encounter Summary ---
Author Organization [employer] Address [address] [facility] 7t [place] [address] Care Team Providers Care Vocational Rehabilitation Technician Name Role Phone Zeinab ySkes MD Primary Care Provider + Reason for Visit * Reason Onset Date Comments Med Refill 07/16/2024 Encounter Details Date Type Department Care Team ([facility] Contact Info) Description 07/16/[address] [facility] MEDICINE [address] [place], [place] [phone] Zeinab Sykes MD [address] [place] [address] Med Refill Social History Tobacco Use Types [...] 10 MG capsule To be sent to: [facility] pharmacy documented in this encounter Plan of Treatment Upcoming Encounters Date Type Department Care Team (Late st Contact Info) Description 05/28/2025 11:00 AM EST Office Visit [facility] MEDICINE [address] [place] [address] 06/05/2025 11:30 AM EST Office Visit [facility] MEDICINE [address] [place] [address] Zeinab Sykes MD [address] [place] [address] 10/03/2025 12:45 PM EDT Office Visit [facility] ADULT DENTAL [address] [place] [address] Fabi Hogue [address] [place] [address] documented as of this encounter Goals Goal Patient Goal Type Associated Problems Recent Progress Patient-Stated? Author Patient will manage their medication General On track( 023 11:18 AM EDT) Citlali Ocampo PharmD Note: Began medboxes. Goal achieved 11/19/22. Patient graduated from [facility]. documented as of this encounter Visit Diagnoses Not on filedocumented in this encounter Additional Health Concerns Assessment Noted Time PHQ-9 Depression Total Score: 18 024 1:46 PM EDT documented as of this encounter Care Teams Vocational Rehabilitation Technician Relationship Specialty Start Date End Date Zeinab Sykes MD [address] [place] [address] PCP - General Internal Medicine 01/02/24 Tomeka Martins Lot AssociateCrystal Cutter 10/27/23 [facility] 11/06/24 documented as of this encounter
--- OUTSIDE RECORDS SUMMARY | 2025-04-10 09:17 | XMS_ITS | Clinical Summary ---
Author Organization [facility] it Address [address] [place] [address] Care Team Providers Care Cancellation Clerk Name Role Phone Meryl Montes Primary Care Provider Surgical History Surgery Date Site/Laterality Comments BREAST REDUCTION PROCEDURE: AR BREAST REDUCTION BACK SURGERY PROCEDURE: HISTORICAL BACK SURGERY; COMMENT: L4-5 rt L5-S1 decomp 05/26/18 Medical History Medical History Date Comments Asthma DX:Asthma Diabetes mellitus type 2, co ntrolled, with complications (CMS/HCC V24, CMS/HCC V28) DX:Diabetes mellitus type 2, controlled, with complications ([facility]) Essential hypertension DX:Essent ial hypertension Depressive disorder [...] age to complete this topic Care Teams Cancellation Clerk Relationship Specialty Start Date End Date Meryl Montes [address] [place] [phone] PCP - General 05/07/22
--- OUTSIDE RECORDS SUMMARY | 2025-04-10 09:17 | XMS_ITS | Encounter Summary ---
Author Organization [employer] Address 75 [facility] 7t [place] [address] Care Team Providers Care Car Inspection And Repair Manager Name Role Phone Evelyn LedesmaP Primary Care Provider Oralia Dukes MD Primary Care Provider [phone] Zeinab Sykes MD Primary Care Provider + Reason for Visit * Reason Onset Date Comments Referral 02/03/2023 Renewal Encounter Details Date Type Department Care Team (Late st Contact Info) Description 02/03/2023 Telephone [facility] MEDICINE [address] [place] [address] Evelyn Ledesma FNP Referral (Renewal ) Social [...] Description 05/28/2025 11:00 AM EST Office Visit [facility] MEDICINE [address] [place] [address] 06/05/2025 11:30 AM EST Office Visit [facility] MEDICINE [address] [place] [address] Zeinab Sykes MD [address] [place] [address] 10/03/2025 12:45 PM EDT Office Visit [facility] ADULT DENTAL [address] [place], [place] [phone] Fabi Hogue [address] [place] [address] documented as of this encounter Goals Goal Patient Goal Type Associated Problems Recent Progress Patient-Stated? Author Patient will manage their medication General On track( 023 11:18 AM EDT) Citlali Ocampo, Anoop Note: Began medboxes. Goal achieved 11/19/22. Patient graduated from [facility]. documented as of this encounter Visit Diagnoses Not on filedocumented in this encounter Care Teams Car Inspection And Repair Manager Relationship Specialty Start Date End Date Evelyn Ledesma FNP PCP - General Family Medicine 03/15/22 04/25/23 Oralia Aguila MD [address] [place] [address] PCP - General Family Medicine 04/26/23 01/01/24 Zeinab Sykes MD [address] [place] [address] PCP - General Internal Medicine 01/02/24 Tomeka Martins Medical Service RepresentativeJewel Hole Rough Opener 10/27/23 [facility] 11/06/24 documented as of this encounter
--- OUTSIDE RECORDS SUMMARY | 2025-04-10 09:17 | XMS_ITS | Encounter Summary ---
Author Organization [employer] Address [address] [place] [address] 7t [place] [address] Care Team Providers Care Edge Burnisher Uppers Name Role Phone Oralia Aguila MD Primary Care Provider [phone] Zeinab Sykes MD Primary Care Provider + Reason for Visit * Reason Onset Date Comments Med Refill 05/05/2023 Encounter Details Date Type Department Care Team (Late st Contact Info) Description 05/05/2023 Refill [facility] [address] [place] [address] Oralia Aguila MD 230 [place] [address] Other intervertebral disc displacement, lumbar region Social [...] 5- 325 MG tablet to besent to [facility] - [place], [place] - [address] [facility] documented in this encounter Plan of Treatment Upcoming Encounters Date Type Department Care Team (Late st Contact Info) Description 05/28/2025 11:00 AM EST Office Visit [facility] [address] [place] [address] 06/05/2025 11:30 AM EST Office Visit [facility] [address] [facility] [place] [address] Zeinab Sykes MD [address] [place] [address] 10/03/2025 12:45 PM EDT Office Visit [facility] ADULT DENTAL [address] [place] [address] Fabi Hogue [address] [place] [address] documented as of this encounter Goals Goal [...] region documented in this encounter Care Teams Edge Burnisher Uppers Relationship Specialty Start Date End Date Oralia [place] [address] PCP - General Family Medicine 04/26/23 01/01/24 [place] [address] PCP - General Internal Medicine 01/02/24 Tomeka Martins Automobile Service WriterAluminum Hydroxide Process Operator 10/27/23 Elara [facility] 11/06/24 documented as of this encounter
[2025-04-10 12:25] LABS: Anion Gap 13 (12-20)
[2025-04-10 12:29] LABS: Folate 10.7 ng/mL (> or = 4.0); Vitamin B12 659 pg/mL (200-900)
[2025-04-10 12:30] LABS: Blood Urea Nitrogen 16 mg/dL (9-16); Calcium 9.6 mg/dL (8.4-10.2); Carbon Dioxide 28 mmol/L (22-29); Chloride 108 mmol/L (96-108); Cholesterol 156 mg/dL (<200); Estimated Glomerular Filt Rate > 60; HDL Cholesterol 63 mg/dL (>40); Potassium 3.7 mmol/L (3.3-5.1); Sodium 145 mmol/L (135-145); Triglycerides 72 mg/dL (<150)
[2025-04-10 12:48] LABS: Reflex LDLD? No
[2025-04-10 13:09] LABS: Microalbum/Creatinine Ratio Ur 6.4 ug/mg cr (<30)
[2025-04-11 03:54] LABS: Syphilis Screen Nonreactive (Nonreactive)
[2025-04-11 04:08] LABS: HIV Num 1 0.04 S/CO (0.00-0.99)
== END 2025-04-10 08:24 | disposition home or self-care (01) ==
LOC: HO.HHCL 08:23
PROVIDERS: PCP Internal Medicine; Visit Provider Internal Medicine
DX: Z11.4 Encounter for screening for human immunodeficiency virus [HIV] (principal); Z11.3 Encounter for screening for infections with a predominantly sexual mode of transmission; E11.9 Type 2 diabetes mellitus without complications; R41.3 Other amnesia
CPT/HCPCS: 36415; 80048; 80061; 82043; 82570; 82607; 82746; 84443; 86780; 87389

== ENCOUNTER 2025-04-12 10:47 | Outpatient (REF) | payer OTHER, SELFPAY ==
--- OUTSIDE RECORDS SUMMARY | 2025-04-10 08:00 | XMS_ITS | Encounter Summary ---
Author Organization [employer] Address [address] [place] [address] 7 [place] [address] Care Team Providers Care Language Interpreter Name Role Phone Zeinab Sykes MD Primary Care Provider + Reason for Visit * Reason Comments Dentures Encounter Details Date Type Department Care Team ([facility] st Contact Info) Description 04/10/2025 8:00 AM EDT Office Visit [facility] ADULT DENTAL [address] [place] [address] Gay Thompson, DDS [address] [place] [address] Ill-fitting dentures (Primary Dx) Social History Tobacco Use Types [...] Progress Notes * Gay Thompson DDS - 04/10/2025 8:00 AM EDT Patient ID: Rhonda Mclaughlin is a 64 y.o. female. Time Out: Timeout Date: 04/10/25, Timeout Time: 814 (Time out for denture adjustment) Location: [facility] Tooth: Maxilla and Mandible Procedure: Dentures adjustment Verified the above with patient, insurance account assistant, and provider. Confirmed via patient's chart, intraorally and by radiographs. Concrete Sculptor: not applicable Chief Complaint Patient presents with Dentures Medical Hx: Vitals: There were no vitals taken for this visit. Medications, Med Hx reviewed with patient and updated in chart. Consent Obtained: The risks, benefits, indications, potential complications, and alternatives were explained to the patient and informed consent was obtained with good understanding. Treatment Provided: Dental procedures in this visit D5110 - DENTURE ADJUSTMENT (Completed) Service provider: Gay Thompson DDS Billing provider: Gay Thompson DDS Upper - adjustment on UR side Lower - adjustment lower anterior teeth ( chel) and LL side clasp- to tight Smoothed and polished. Pt tolerated procedure well and was dismissed in good condition. NV: 6 mo periodic exam Pad Airport Utility Worker: Jayne Cabrera Dentist: Gay Thompson DDS documented in this encounter Plan of Treatment Upcoming Encounters Date Type Department Care Team (Late st Contact Info) Description 05/28/2025 11:00 AM EST Office Visit [facility] MEDICINE [address] [place] [address] 06/05/2025 11:30 AM EST Office Visit [facility] MEDICINE [address] [place] [address] Zeinab Sykes MD [address] [place] [address] 10/03/2025 12:45 PM EDT Office Visit [facility] ADULT DENTAL [address] [place] [address] Fabi Hogue [address] [place] [address] documented as of this encounter Goals Goal Patient Goal Type Associated Problems Recent Progress Patient-Stated? Author Patient will manage their medication General On track( 023 11:18 AM EDT) Citlali Ocampo, PharmD Note: Began medboxes. Goal achieved 11/19/22. Patient graduated from [facility]. documented as of this encounter Procedures Procedure Name Priority Date/Time Associated Diagnosis Comments DENTURE ADJUSTMENT Routine 04/10/2025 8:00 AM EDT documented in this encounter Visit Diagnoses Diagnosis Ill-fitting dentures- Primary documented in this encounter Additional Health Concerns Assessment Noted Time PHQ-9 Depression Total Score: 22 025 10:31 AM EST documented as of this encounter Care Teams Language Interpreter Relationship Specialty Start Date End Date Zeinab Sykes MD [address] [place] [address] PCP - General Internal Medicine 01/02/24 Tomeka Martins Visitor Services Information AssistantHazardous Waste Remover 10/27/23 [employer] 11/06/24 documented as of this encounter
--- NOTE | ~2025-04-12 | MM_ITS ---
EXAMINATION: MM SCREENING DIGITAL BREAST TOMOSYNTHESIS, BILATERAL CLINICAL INFORMATION: Screening. Asymptomatic. COMPARISON: Mammography: Comparison is made with available priors TECHNIQUE: Digital breast mammography with tomosynthesis is performed in both the craniocaudal and mediolateral oblique views along with computer-aided detection (CAD). FINDINGS: There are scattered areas of fibroglandular density. Bilateral reduction mammoplasty. There are no significant masses, abnormal calcifications, or other abnormalities. MM/MM tomosynthesis screening BI IMPRESSION: No mammographic evidence of malignancy. ASSESSMENT: BI-RADS Category 2: Benign RECOMMENDATION: Routine annual mammography screening. 1 year F/U This examination should not preclude the clinical evaluation of a suspicious palpable abnormality. This patient's information was entered into a reminder system with a target due date for their next mammogram. Electronically signed by: Anamika Pollack DO 04/15/2025 05:33 PM EDT
--- OUTSIDE RECORDS SUMMARY | 2025-04-12 12:28 | XMS_ITS | Encounter Summary ---
Author Organization [employer] Address 75 [facility] 7t [place] [address] Care Team Providers Care Manager Of Selection And Assessment Name Role Phone Zeinab Sykes MD Primary Care Provider + Reason for Visit * Reason Onset Date Comments Med Refill 07/16/2024 Encounter Details Date Type Department Care Team ([facility] Contact Info) Description 07/16/2024 Telephone [facility] MEDICINE [address] [place], [place] [phone] Zeinab Sykes MD [address] [place] [address] Med Refill Social History Tobacco Use Types [...] 10 MG capsule To be sent to: [facility] pharmacy documented in this encounter Plan of Treatment Upcoming Encounters Date Type Department Care Team (Late st Contact Info) Description 05/28/2025 11:00 AM EST Office Visit [facility] MEDICINE [address] [place] [address] 06/05/2025 11:30 AM EST Office Visit [facility] MEDICINE [address] [place] [address] Zeinab Sykes MD [address] [place] [address] 10/03/2025 12:45 PM EDT Office Visit [facility] ADULT DENTAL [address] [place] [address] Fabi Hogue [address] [place] [address] documented as of this encounter Goals Goal Patient Goal Type Associated Problems Recent Progress Patient-Stated? Author Patient will manage their medication General On track( 023 11:18 AM EDT) Citlali Ocampo PharmD Note: Began medboxes. Goal achieved 11/19/22. Patient graduated from [facility]. documented as of this encounter Visit Diagnoses Not on filedocumented in this encounter Additional Health Concerns Assessment Noted Time PHQ-9 Depression Total Score: 18 024 1:46 PM EDT documented as of this encounter Care Teams Manager Of Selection And Assessment Relationship Specialty Start Date End Date Zeinab Sykes MD [address] [place] [address] PCP - General Internal Medicine 01/02/24 Tomeka Martins White Kid BufferRefuge Manager 10/27/23 [facility] 11/06/24 documented as of this encounter
--- OUTSIDE RECORDS SUMMARY | 2025-04-12 12:28 | XMS_ITS | Clinical Summary ---
Author Organization [facility] it Address [address] [place] [address] Care Team Providers Care Movie Shot Cameraman Name Role Phone Meryl Montes Primary Care Provider Surgical History Surgery Date Site/Laterality Comments BREAST REDUCTION PROCEDURE: CT BREAST REDUCTION BACK SURGERY PROCEDURE: HISTORICAL BACK SURGERY; COMMENT: L4-5 rt L5-S1 decomp 05/26/18 Medical History Medical History Date Comments Asthma DX:Asthma Diabetes mellitus type 2, co ntrolled, with complications (CMS/HCC V24, CMS/HCC V28) DX:Diabetes mellitus type 2, controlled, with complications ([facility]) Essential hypertension DX:Essent ial hypertension Depressive [...] age to complete this topic Care Teams Movie Shot Cameraman Relationship Specialty Start Date End Date Meryl Montes [address] [place] [phone] PCP - General 05/07/22
--- OUTSIDE RECORDS SUMMARY | 2025-04-12 12:28 | XMS_ITS | Encounter Summary ---
Author Organization [employer] Address [address] [place] [address] 7 [place] [address] Care Team Providers Care Order Management Specialist Name Role Phone Evelyn Ledesma Primary Care Provider Oralia Dukes MD Primary Care Provider [phone] Zeinab Sykes MD Primary Care Provider + Reason for Visit * Reason Comments Med Refill Encounter Details Date Type Department Care Team (Late st Contact Info) Description 02/05/2023 Refill [facility] MED[facility]INE [address] [place] [phone] Evelyn Ledesma FNP Neuropathy Social History Tobacco [...] Description 05/28/2025 11:00 AM EST Office Visit [facility] [address] [place] [address] [phone] 06/05/2025 11:30 AM EST Office Visit [facility] [address] [place] [address] [phone] Zeinab Sykes MD [address] [place] [address] [phone] 10/03/2025 12:45 PM EDT Office Visit [facility] ADULT DENTAL [address] [place], [place] [phone] Fabi Hogue [address] [place], [place] [phone] documented as of this encounter Goals Goal Patient Goal Type Associated Problems Recent Progress Patient-Stated? Author Patient will manage their medication General On track( 023 11:18 AM EDT) Citlali Ocampo, Anoop Note: Began medboxes. Goal achieved 11/19/22. Patient graduated from [facility]. documented as of this encounter Visit Diagnoses Diagnosis Neuropathy Mononeuritis of unspecified site documented in this encounter Care Teams Order Management Specialist Relationship Specialty Start Date End Date Evelyn Ledesma FNP PCP - General Family Medicine 03/15/22 04/25/23 Oralia Aguila MD [address] [place] [phone] PCP - General Family Medicine 04/26/23 01/01/24 Zeinab Sykes MD [address] [place] [address] PCP - General Internal Medicine 01/02/24 Tomeka Martins Traffic Control SupervisorPull Over 10/27/23 Tj Caring 11/06/24 documented as of this encounter
--- OUTSIDE RECORDS SUMMARY | 2025-04-12 12:28 | XMS_ITS | Encounter Summary ---
Author Organization [employer] Address [address] [place] [address] 7t [place] [address] Care Team Providers Care Dry Goods Clerk Name Role Phone Oralia Aguila MD Primary Care Provider [phone] Zeinab Sykes MD Primary Care Provider + Reason for Visit * Reason Onset Date Comments antibiotics pre med 07/19/2023 Encounter Details Date Type Department Care Team ([facility] st Contact Info) Description 07/19/2023 Telephone [facility] ADULT DENTAL [address] [place] [address] Stefany Anton, DDS [address] [place] [address] antibiotics pre med Social History Tobacco Use [...] [facility] MED[facility] [address] [place] [address] 06/05/2025 11:30 AM EST Office Visit [facility] MED[facility]INE [address] [place] [address] Zeinab Sykes MD [address] [place] [address] 10/03/2025 12:45 PM EDT Office Visit [facility] ADULT DENTAL [address] [place] [address] Fabi Hogue [address] [place] [address] documented as of this encounter Goals Goal Patient Goal Type Associated Problems Recent Progress Patient-Stated? Author Patient will manage their medication General On track( 023 11:18 AM EDT) No Citlali Armnado, Anoop Note: Began medboxes. Goal achieved 11/19/22. Patient graduated from [facility]. documented as of this encounter Visit Diagnoses Not on filedocumented in this encounter Care Teams Dry Goods Clerk Relationship Specialty Start Date End Date Oralia Aguila MD [address] [place] [address] PCP - General Family Medicine 04/26/23 01/01/24 Zeinab Sykes MD [address] [place] [address] PCP - General Internal Medicine 01/02/24 Tomeka Martins Career Center AdvisorOil Dipper 10/27/23 Tj Caring 11/06/24 documented as of this encounter
--- OUTSIDE RECORDS SUMMARY | 2025-04-12 12:28 | XMS_ITS | Encounter Summary ---
Author Organization [employer] Address [address] [place] [address] 7t [place] [address] Care Team Providers Care Torch Straightener And Heater Name Role Phone Evelyn Ledesma Primary Care Provider Silvana Oralia Alamo MD Primary Care Provider [phone] Zeinab Sykes MD Primary Care Provider + Encounter Details Date Type Department Care Team ([facility] Contact Info) Description 10/22/2022 Orders Only [facility] MED[facility]INE [address] [place] [address] Evelyn Ledesma FNP Social History Tobacco Use [...] Upcoming Encounters Date Type Department Care Team ([facility] Contact Info) Description 05/28/2025 11:00 AM EST Office Visit [address] [address] 06/05/2025 11:30 AM EST Office Visit [address] [place] [address] Zeinab Sykes MD [address] [place], [place] [phone] 10/03/2025 12:45 PM EDT Office Visit [facility] ADULT DENTAL [address] [place], [place] [phone] Fabi Hogue [address] [place] [address] documented as of this encounter Visit Diagnoses Not on filedocumented in this encounter Care Teams Torch Straightener And Heater Relationship Specialty Start Date End Date Evelyn Ledesma FNP PCP - General Family Medicine 03/15/22 04/25/23 Oralia Aguila MD [address] [place] [address] [phone] PCP - General Family Medicine 04/26/23 01/01/24 Zeinab Sykes MD [address] [place] [address] [phone] PCP - General Internal Medicine 01/02/24 Tomeka Martins Loading Machine AdjusterMobile Home Servicer 10/27/23 Tj Caring 11/06/24 documented as of this encounter
--- OUTSIDE RECORDS SUMMARY | 2025-04-12 12:28 | XMS_ITS | Encounter Summary ---
Author Organization [employer] Address [address] [place] [address] 7 [place] [address] Care Team Providers Care Dermatology Technician Name Role Phone Evelyn Ledesma REINFORCED STEEL PLACING SUPERVISOR Primary Care Provider Oralia Dukes MD Primary Care Provider [phone] Zeinab Sykes MD Primary Care Provider + Encounter Details Date Type Department Care Team (Latest Contact Info) Description 10/30/2020 Abstract [facility] CONVERSION[facility] Dental, Provider, DDS Social History Tobacco [...] 11:00 AM EST Office Visit [facility] MEDICINE [address] [place] [phone] 06/05/2025 11:30 AM EST Office Visit [facility] [address] [place] [address] Zeinab Sykes MD [address] [place] [address] 10/03/2025 12:45 PM EDT Office Visit [facility] ADULT DENTAL [address] [place] [address] Fabi Hogue [address] [place] [address] documented as of this encounter Visit Diagnoses Not on filedocumented in this encounter Care Teams Dermatology Technician Relationship Specialty Start Date End Date Evelyn Ledesma FNP PCP - General Family Medicine 03/15/22 04/25/23 Oralia Aguila MD [address] [place], [place] [phone] PCP - General Family Medicine 04/26/23 01/01/24 Zeinab Sykes MD [address] [place], [place] [phone] PCP - General Internal Medicine 01/02/24 Tomeka Martins Recycling Or Rubbish CollectorDisease Case Manager Rn 10/27/23 Tj Caring 11/06/24 documented as of this encounter
--- OUTSIDE RECORDS SUMMARY | 2025-04-12 12:28 | XMS_ITS | Encounter Summary ---
Author Organization [employer] Address [address] [facility] 7t [place] [address] Care Team Providers Care Journeyman Lineman Name Role Phone Evelyn Ledesma Primary Care Provider Oralia Dukes MD Primary Care Provider [phone] Zeinab Sykes MD Primary Care Provider + Reason for Visit * Reason Onset Date Comments Appointment Request 12/20/2022 Encounter Details Date Type Department Care Team (Late st Contact Info) Description 12/20/2022 Telephone [facility] MEDICINE [address] [place] [address] Evelyn Ledesma FNP Appointment Request Social History [...] an earlier day) Please contact pt at [phone] documented in this encounter Plan of Treatment Upcoming Encounters Date Type Department Care Team (Late st Contact Info) Description 05/28/2025 11:00 AM EST Office Visit [facility] MED[facility]INE [address] [place] [phone] 06/05/2025 11:30 AM EST Office Visit [facility] MED[facility]INE [address] [place] [address] Zeinab Sykes MD [address] [place] [address] 10/03/2025 12:45 PM EDT Office Visit [facility] ADULT DENTAL [address] [place] [address] Mykel, Fabi [address] [place] [address] documented as of this encounter Goals Goal Patient Goal Type Associated Problems Recent Progress Patient-Stated? Author Patient will manage their medication General On track( 023 11:18 AM EDT) Citlali Ocampo, Anoop Note: Began medboxes. Goal achieved 11/19/22. Patient graduated from [facility]. documented as of this encounter Visit Diagnoses Not on filedocumented in this encounter Care Teams Journeyman Lineman Relationship Specialty Start Date End Date Evelyn Ledesma FNP PCP - General Family Medicine 03/15/22 04/25/23 Oralia Aguila MD [address] [place] [place] [address] PCP - General Family Medicine 04/26/23 01/01/24 Zeinab Sykes MD [address] [place] [place] [address] PCP - General Internal Medicine 01/02/24 Tomeka Martins Working ForemanCase Finisher 10/27/23 Tj Caring 11/06/24 documented as of this encounter
--- OUTSIDE RECORDS SUMMARY | 2025-04-12 12:28 | XMS_ITS | Encounter Summary ---
Author Organization [employer] Address [address] [facility] [address] [place] [address] Care Team Providers Care Talent Development Consultant Name Role Phone Zeinab Sykes MD Primary Care Provider + Encounter Details Date Type Department Care Team ([facility] st Contact Info) Description 09/20/2024 Orders Only [facility] PEDS [address] [place] [address] Provider, MD Parag Social History Tobacco Use [...] Visit [facility] MEDICINE [address] [place] [address] 06/05/2025 11:30 AM EST Office Visit [facility] MEDICINE [address] [place] [address] Zeinab Sykes MD [address] [place] [address] 10/03/2025 12:45 PM EDT Office Visit [facility] ADULT DENTAL [address] [place] [address] Mykel Fabi [address] [place] [address] documented as of this encounter Goals Goal [...] PM EDT Narrative 10/19/2024 4:14 PM EDT [place] [address] CT Scan Report Signed Patient: Rhonda Fernández MR# : [id number] : 1960 Acct:[id number] Age/Sex: 63 / F ADM Date: 10/18/24 Loc: HO.CT Attending Dr: Nolberto Quigley MD Ordering Physician: Nolberto Quigley MD Date of Service: 10/18/24 Procedure(s): CT abdomen pelvis w IV con Accession Number(s): [id number] cc: Zeinab Sykes MD; Nolberto Quigley MD Report Number: [id number]: Total DLP = 538.00 mGy-cm CLINICAL HISTORY: [...] 10/19/24 1614 DD/ 1613 TD/TT: 10/19/24 1613 Finger Waver: Procedure Note Donotuseinterpreter, Image - 10/19/[address] [address] [address] Scan Report Signed Patient: Spenser FernándezR# : [id number] : 1960Acct:[id number] Age/Sex: 63 / FADM Date: 10/18/24 Loc: HO.CT Attending Dr: Nolberto Quigley MD Ordering Physician: Nolberto Quigley MD Date of Service: 10/18/24 Procedure(s): CT abdomen pelvis w IV con Accession Number(s): [id number] cc: Zeinab Sykes MD; Nolberto Quigley MD Report Number: [id number]: Total DLP = 538.00 mGy-cm CLINICAL HISTORY: [...] 10/19/24 1614 DD/ 1613 TD/TT: 10/19/24 1613 Finger Waver: [facility] External Provider IMG CT PROCEDURES Final Result * XR Wrist 3+ Views Left (10/16/2024 5:26 PM EDT) Anatomical Region Laterality Modality Upper Extremities, Wrist Left Radiogr aphic Imaging 10/16/2024 5:26 PM EDT Narrative 10/16/2024 5:28 PM EDT [address] [address] XRay Report Signed Patient: Rhonda Fernández MR# : [id number] : 1960 Acct:[id number] Age/Sex: 63 / F ADM Date: 10/16/24 Loc: HO.ED Attending Dr: Ordering Physician: Lanette Laura PA-C Date of Service: 10/16/24 Procedure(s): XR wrist LT min 3V Accession Number(s): [id number] cc: Zeinab Sykes MD; Lanette Laura PA-C [...] in OV> 10/16/241726 DD/ 25 TD/TT: 10/16/241725 Finger Waver: Procedure Note Donotuseinterpreter, Image - 10/16/2024 [place] [address] XRay Report Signed Patient: Karla Fernández# : [id number] : 1960Acct:[id number] Age/Sex: 63 / FADM Date: 10/16/24 Loc: HO.ED Attending Dr: Ordering Physician: Lanette Laura PA-C Date of Service: 10/16/24 Procedure(s): XR wrist LT min 3V Accession Number(s): [id number] cc: Zeinab Sykes MD; Lanette Laura PA-C [...] in OV> 10/16/241726 DD/ 25 TD/TT: 10/16/241725 Finger Waver: us [facility] External Provider IMG XR PROCEDURES Final Result * XR Hip left with Pelvis 1 view (10/16/2024 5:24 PM EDT) Anatomical Region Laterality Modality Lower Extremities, Hip Bilateral Radiograp hic Imaging 10/16/2024 5:24 PM EDT Narrative 10/16/2024 5:26 PM EDT [address] [address] XRay Report Signed Patient: Rhonda Fernández MR# : [id number] : 1960 Acct:[id number] Age/Sex: 63 / F ADM Date: 10/16/24 Loc: HO.ED Attending Dr: Ordering Physician: Lanette Laura PA-C Date of Service: 10/16/24 Procedure(s): XR hip LT w PEL1V Accession Number(s): [id number] cc: Zeinab Sykes MD; Lanette Laura PA-C [...] in OV> 10/16/241724 DD/ 23 TD/TT: 10/16/241723 Finger Waver: Procedure Note Donotuseinterpreter, Image - 10/16/[address] [address] XRay Report Signed Patient: Spenser FernándezR# : [id number] : 1960Acct:[id number] Age/Sex: 63 / FADM Date: 10/16/24 Loc: HO.ED Attending Dr: Ordering Physician: Lanette Laura PA-C Date of Service: 10/16/24 Procedure(s): XR hip LT w PEL1V Accession Number(s): [id number] cc: Zeinab Sykes MD; Lanette Laura PA-C [...] in OV> 10/16/241724 DD/ 23 TD/TT: 10/16/241723 Finger Waver: [facility] External Provider IMG XR PROCEDURES Final Result * XR Elbow 3+ Views Left (10/16/2024 5:23 PM EDT) Anatomical Region Laterality Modality Upper Extremities, Elbow Left Radiogr aphic Imaging 10/16/2024 5:23 PM EDT Narrative 10/16/2024 5:25 PM EDT [place] [address] XRay Report Signed Patient: Rhonda Fernández MR# : [id number] : 1960 Acct:[id number] Age/Sex: 63 / F ADM Date: 10/16/24 Loc: HO.ED Attending Dr: Ordering Physician: Lanette Laura PA-C Date of Service: 10/16/24 Procedure(s): XR elbow LT min 3V Accession Number(s): [id number] cc: Zeinab Sykes MD; Lanette Laura PA-C [...] OV> 10/16/24 1724 DD/ 22 TD/TT: 10/16/241722 Finger Waver: Procedure Note Mary, Image - 10/16/[address] [address] XRay Report Signed Patient: Spenser FernándezR# : [id number] : 1960Acct:[id number] Age/Sex: 63 / FADM Date: 10/16/24 Loc: HO.ED Attending Dr: Ordering Physician: Lanette Laura PA-C Date of Service: 10/16/24 Procedure(s): XR elbow LT min 3V Accession Number(s): [id number] cc: Zeinab Sykes MD; Lanette Laura PA-C [...] in OV> 10/16/244 DD/ 22 TD/TT: 10/16/241722 Finger Waver: [facility] External Provider IMG XR PROCEDURES Final Result * CT Cervical Spine w/o Contrast (10/16/2024 5:18 PM EDT) Anatomical Region Laterality Modality Spine, C-spine Computed Tomogra phy 10/16/2024 5:18 PM EDT Narrative 10/16/2024 5:19 PM EDT [address] [address] [address] Scan Report Signed Patient: Rhonda Fernández MR# : [id number] : 1960 Acct:[id number] Age/Sex: 63 / F ADM Date: 10/16/24 Loc: HO.ED Attending Dr: Ordering Physician: Lanette Laura PA-C Date of Service: 10/16/24 Procedure(s): CT cervical spine wo IV con Accession Number(s): [id number] cc: Zeinab Sykes MD; Lanette Laura PA-C Report Number: [id number]: Total DLP = 605.00 mGy-cm CLINICAL HISTORY: [...] in OV> 10/16/241718 DD/ 17 TD/TT: 10/16/241717 Finger Waver: Procedure Note Donotuseinterpreter, Image - 10/16/[address] [place] [address] [address] Scan Report Signed Patient: Spenser FernándezR# : [id number] : 1960Acct:[id number] Age/Sex: 63 / FADM Date: 10/16/24 Loc: HO.ED Attending Dr: Ordering Physician: Lanette Laura PA-C Date of Service: 10/16/24 Procedure(s): CT cervical spine wo IV con Accession Number(s): [id number] cc: Zeinab Sykes MD; Lantete Laura PA-C Report Number: [id number]: Total DLP = 605.00 mGy-cm CLINICAL HISTORY: [...] OV> 10/16/24 1719 DD/ 17 TD/TT: 10/16/241717 Finger Waver: [facility] External Provider IMG CT PROCEDURES Final Result * Hm Colonoscopy (11/05/2020 11:36 AM EDT) Historical Provider HEALTH MAINTENANCE Final Result documented in this encounter Visit Diagnoses Not on filedocumented in this encounter Additional Health Concerns Assessment Noted Time PHQ-9 Depression Total Score: 22 025 10:31 AM EST documented as of this encounter Care Teams Talent Development Consultant Relationship Specialty Start Date End Date Zeinab Sykes MD [address] [place] [address] PCP - General Internal Medicine 01/02/24 Tomeka Martins Steel Division SupervisorMeteorologist In Charge 10/27/23 Tj Caring 11/06/24 documented as of this encounter
--- OUTSIDE RECORDS SUMMARY | 2025-04-12 12:28 | XMS_ITS | Encounter Summary ---
Author Organization [employer] Address [address] [facility] 7t [place] [address] Care Team Providers Care Asp Net Programmer Name Role Phone Zeinab Sykes MD Primary Care Provider + Reason for Visit * Reason Comments Med Refill Encounter Details Date Type Department Care Team ([facility] st Contact Info) Description 04/11/2025 Refill [facility] MEDICINE [address] [place], [place] [phone] Zeinab Sykes MD [address] [place] [address] Social History Tobacco Use Types Packs/Day Years [...] Description 05/28/2025 11:00 AM EST Office Visit [facility] MEDICINE [address] [place] [address] 06/05/2025 11:30 AM EST Office Visit [facility] MEDICINE [address] [place] [address] Zeinab Sykes MD [address] [place] [address] 10/03/2025 12:45 PM EDT Office Visit [facility] ADULT DENTAL [address] [place] [address] Fabi Hogue [address] [place] [address] documented as of this encounter Goals Goal [...] documented as of this encounter Care Teams Asp Net Programmer Relationship Specialty Start Date End Date Zeinab Sykes MD [address] [place] [address] PCP - General Internal Medicine 01/02/24 Tomeka Martins Marketing And Promotions ManagerSenior Php Software Developer 10/27/23 Tj Caring 11/06/24 documented as of this encounter
--- OUTSIDE RECORDS SUMMARY | 2025-04-12 12:28 | XMS_ITS | Clinical Summary ---
Author Organization [employer] Address [address] [place] [address] Care Team Providers Care Senior Net Software Engineer Name Role Phone Zeinab Sykes MD [...] in the morning. Active oxymetazoline (Afrin Nasal [place]) 0.05 % nasal spray Administer 2 sprays [...] without long-term current use of insulin ([facility]) 1 each by Other route Once per day. USE TO TEST BLOOD SUGAR ONCE A DAY 100 each 3 024 Active glucose blood (FREESTYLE LITE) test stripIndications:T ype 2 diabetes mellitus without complication, without long-term current use of insulin ([facility]/HCC) USE TO TEST BLOOD SUGAR ONCE [...] mouth at bedtime. 90 tablet 1 Active nystatin (Mycostatin) ointment Apply topically [...] times daily. 50 g 025 2025 Active ergocalciferol (Vitamin D2) 1.25 MG (90235 UT) capsule TAKE 1 CAPSULE BY MOUTH ONCE WEEKLY ON TUESDAY MORNING 12 capsule 1 025 Active Finacea 15 % gel APPLY TOPICALLY TO THE FACE ONCE DAILY 023 2024 Discontinued(I neffective) pseudoephedrine (Sudafed) 60 MG tablet Take 1 tablet (60 mg) by mouth every 6 (six) hours if needed for congestion for up to 7 days. 20 tablet 024 2024 Discontinued(T herapy completed) sodium chloride ([place] Nasal [place]) 0.65 % nasal sprayIndications:A cute nasopharyngitis Administer 1 spray into each nostril if needed for congestion. 30 mL 1 025 2024 Discontinued(T herapy completed) ergocalciferol (Vitamin D2) 1.25 MG (69721 UT) capsule Take 1 capsule (1.25 mg) by mouth 1 (one) time per week. 12 capsule 1 025 2024 Discontinued oxyCODONE-acetamin ophen (Percocet) 5-325 [...] bx, I will fu or refer to MARKETING STRATEGY ANALYST after US reports. Left foot pain 03/29/2024 [...] disc, s/p vagus nerve stimulator, neuropathy Last NICK SETTER Agreement: 02/26/25 Tier 3: NICK SETTER visit Q4-6 months. (Last evaluated Jul 2024 [...] of scalp 01/02/2024 Overview (01/02/2024): Seen at [facility] dermatology Assessment & Plan (03/20/2024 3:50 PM EDT): Generally well controlled, encouraged to continue fu with [facility] derm Refill for fluocinolone today. Housing insecurity 01/02/2024 Assessment & Plan (08/15/2024 1:36 PM EST): See above. Applying for housing and need handicap access. Assessment & Plan (03/20/2024 3:51 PM EDT): Awaiting housing application, lives in abasement FU with [facility]RI. Stage 3a chronic kidney disease 11/01/2023 Assessment [...] albuterol prn. Will refer her back to development mgr. RUQ pain 10/05/2023 Assessment & Plan (11/01/2023 [...] ballon inside the gastric body placed in [place] for bariatric procedure about 20 cm in [...] placement of VNS (vagus nerve stimulation) d joelle 03/08/2022 Type 2 diabetes mellitus without complication [...] lumbar r egion 05/17/2017 Overview (09/17/2022): On NICK SETTER contract. discussed tapering percocet options, not interested.. Referred to HIM forms dept for handicap plackards documents. Referred to [facility] for polypharmacy education. Continue medications as prescribed. Discussed Narcan. Encouraged nonpharmacologic pain relief strategies. will f/up next visit Assessment & Plan (04/02/2025 3:45 PM EDT): On [facility] contract, continue Percocet 3-4 times per day and follow-up with chronic pain management program and NICK SETTER nurse. We have done [employer] education re [...] & Plan (03/20/2024 3:48 PM EDT): On NICK SETTER contract. discussed tapering percocet options, not interested, it apparently offers partial enough improvement of sxs. Patient is aware that longwall headgate operator use of opiates can cause hyperalgesia, liver toxicity, AIRLINE MANAGERIAL SUPERVISOR toxicity, increase anxiety, among others. Will continue to work with chronic pain management [facility] clinic. Continue medications as prescribed. [...] PRN for elevated BP readings.. Referred to [facility] for polypharmacy education. Continue [...] pharyngitis 12/26/2023 05/29/2024 Recurrent sinusitis 11/01/2023 04/02/20 Assessment & Plan (11/01/2023 3:57 PM EDT): S/p treatment w/ amoxicillin SEPTEMBER 2023. Will give prednisone and pseudophedrine short term. Will refer her to development mgr again so she can be evaluated for allergy and receive treatment if indicated. Acute maxillary sinusitis 09/08/2023 Viral URI 09/03/2022 09/13/2023 Back pain 08/20/2022 12/30/2022 Onychomycosis of multiple to enails with type 2 diabetes mellitus ([facility]) 05/17/2017 03/29/2024 Encounters * This document contains information received from the source organization and may not represent a complete record from that organization. Date Type Department Care Team Description 04/11/2025 Refill [facility] [address] [place] [phone] Zeinab Sykes MD 04/10/2025 8:00 AM EDT Office Visit [facility]ULT DENT[facility] [address] [place] [address] [phone] Gay Thompson DDS Ill-fitting dentures (Primary Dx) 04/10/2025 Telephone [facility] [address] [place] [address] [phone] Zeinab Sykes MD AUTO SERVICE REPRESENTATIVE referral 04/09/2025 Telephone [facility] [address] [place] [address] [phone] Zeinab Sykes MD telephone call 04/04/2025 11:15 AM EDT Office Visit [facility] [address] [place] [address] [phone] Watkins-Maynard, Gay, DDS Edentulism (Primary Dx); Partially edentulous mandible, class I edentulism 04/02/2025 11:15 AM EDT Office Visit [facility] [address] [place] [address] [phone] Zeinab Sykes MD Type 2 diabetes mellitus without complication, without long-term current use of insulin ([facility]) (Primary Dx); Essential hypertension; Arthritis; Moderate persistent asthma without complication; Recurrent major depressive disorder, in partial remission ([facility]); Other intervertebral disc displacement, lumbar region; Memory impairment; Tubular adenoma of colon; Class 2 severe obesity due to excess calories with serious comorbidity and body mass index (BMI) of 35.0 to 35.9 in adult ([facility]); Obesity (BMI 35.0-39.9 without comorbidity); Screening mammogram for breast cancer 04/02/2025 Patient Outreach [facility] [address] [place] [address] [phone] Zeinab Sykes MD Care Coordination (CHW outreach for SDOH housing search-referral completed ) 04/02/2025 Travel 04/02/2025 Telephone [facility] [address] [place] [address] [phone] Zeinab Sykes MD appt change 03/27/2025 11:15 AM EDT Office Visit [facility] [address] [place] [address] [phone] Watkins-Maynard, Gay, DDS Edentulism (Primary Dx); Partially edentulous mandible, class I edentulism 03/27/2025 Refill [facility] [address] [place] [address] Janessa Jolley MD Other intervertebral disc displacement, lumbar region 03/19/2025 11:00 AM EDT Office Visit [facility] [address] [place] [address] Watkins-Maynard, Gay, DDS Edentulism (Primary Dx); Partially edentulous mandible, class I edentulism 03/08/2025 10:00 AM EDT Office Visit [facility] [address] [place] [address] Gay Thompson, DDS Edentulism (Primary Dx); Partially edentulous mandible, class I edentulism 03/06/2025 Refill [facility] [address] [place] [address] Zeinab Sykes MD Neuropathy 02/27/2025 Refill [facility] [address] [place] [address] Zeinab Sykes MD Other intervertebral disc displacement, lumbar region 02/26/2025 11:00 AM EDT Office Visit [facility] [address] [place] [address] Alma Jha, CLOTH SPREADER SCREEN PRINTING Lumbar back pain with radiculopathy affecting left lower extremity (Primary Dx); Long-term current use of opiate analgesic 02/26/2025 Travel 02/21/2025 Telephone [facility] [address] [place] [address] Zeinab Sykes MD Prior Authorization ([facility] PA: Lidocaine 5% Patch) 02/20/2025 Refill [facility] [address] [place] [address] Zeinab Sykes MD Other intervertebral disc displacement, lumbar region 02/18/2025 Telephone [facility] [address] [place] [address] Zeinab Sykes MD Referral 02/18/2025 Telephone [facility] [address] [place] [address] Zeinab Sykes MD Durable Medical Equipment (DME Order: Multiple Items) 02/16/2025 Refill [facility] [address] [place] [address] Zeinab Sykes MD Neuropathy 01/28/2025 Refill [facility] [address], [place] [phone] Zeinab Sykes MD Other intervertebral disc displacement, lumbar region 01/21/2025 Telephone [facility] [address] [place] [address] Scarlett Gibbs, PAULINA Rescheduled chronic pain group 01/15/2025 Refill [facility] [address] [place] [address] Janessa Jolley MD Seasonal allergic rhinitis, unspecified trigger 01/12/2025 Refill [facility] [address] [place] [address] Zeinab Sykes MD Left hand pain from [...] EST Office Visit [facility] [address] [place] [address] [phone] 06/05/2025 11:30 AM EST Office Visit [facility] [address] [place] [address] [phone] Zeinab Sykes MD [address] [place] [phone] 10/03/2025 12:45 PM EDT Office Visit [facility] ADULT DENT[facility] [address] [place] [address] Fabi Hogue [address] [place] [address] Health Maintenance Due Date Last Done Comments CT Colonography 1960 Dental X-Ray: Bitewings 1960 FIT DNA/Cologuard 1960 FIT 1960 FOBT 1960 Sigmoidoscopy 1960 Eye Exam 11/05/1969 Hepatitis A Vaccines (1 of 2 - Risk 2-dose series) 11/05/1978 Colonoscopy 2023 11/05/2020 Colorectal Cancer Screening 2023 Mammogram 03/15/2024 03/15/2022, 01/17, 10/07/2020 COVID-19 Vaccine ( season) 2025 08/24/2022, 01/15/2022, [...] Additional history exists SDOH Screening 04/02/2026 04/02/2025 Diabetes: Urine Protein Screening 04/10/2026 04/10/2025, 03/08/2022, 09/16/2020 Lipid Panel 04/10/2026 04/10/2025, 12/17, 06/14/2022, Additional history exists Tobacco Screening 04/10/2026 04/10/2025 Pap Smear 06/01/2027 [...] Patient graduated from [facility]. Procedures Procedure Name Priority Date/Time Associated Diagnosis Comments HIV 1/2 ANTIGEN/ANTIBODY, FOURTH GENERATION W/RFL Routine 04/10/2025 8:29 AM EDT Memory impairment SYPHILIS SCREEN Routine 04/10/2025 8:29 AM EDT Memory impairment TSH W/REFLEX TO FT4 Routine 04/10/2025 8 :29 AM EDT Memory impairment VITAMIN B12/FOLATE, SERUM PANEL Routine 04/10/2025 8:29 AM EDT Memory impairment LIPID PANEL WITH REFLEX TO DIRECT LDL Routine 04/10/2025 8:29 AM EDT Type 2 diabetes mellitus without complication, without long-term current use of insulin (CMS/HCC) BASIC METABOLIC PANEL Routine 04/10/2025 8:29 AM EDT Type 2 diabetes mellitus without complication, without long-term current use of insulin (CMS/HCC) ALBUMIN, RANDOM URINE W/CREATININE Routine 04/10/2025 8:29 AM EDT Type 2 diabetes mellitus without complication, without long-term current use of insulin (CMS/HCC) DENTURE ADJUSTMENT Routine 04/10/2025 8: 00 AM EDT CASE PRESENTATION, DETAILED AND EXTENSIVE TREATMENT PLANNING [...] Routine 01/06/2024 12:38 PM EDT Fatty liver MAMMOGRAM GENERIC Routine 03/15/2022 5:0 0 PM EDT HM COLONOSCOPY Routine 11/05/2020 11:36 AM EDT HPV MRNA E6/E7 Routine 07/07/2020 12:00 AM EST from Last 3 Months or Most Recently Relevant to Health Maintenance Results * Syphilis Screen (04/10/2025 8:29 AM EDT) Syphilis Screen Nonreactive Nonreactive [facility] Blood 04/10/2025 8:29 AM EDT 04/10/2025 11:28 AM EDT us Zeinab Sykes MD LAB BLOOD ORDERABLES Fin al Result [facility] [address] [place] [address] [phone] * Vitamin B12/Folate, Serum Panel (04/10/2025 8:29 AM EDT) Vitamin B12 659 200 - 900 pg/mL [facility] Comment:NORMAL 200-900 PG/ML INDETERMINATE 160-199 PG/ML DEFICIENT < 160 PG/ML Folate 10.7 > or = 4.0 ng/mL [facility] Comment:Reference Values:> o r = 4.0 ng/mL< 4.0 ng/mL suggests folate deficiency Methotrexate, aminopterin and folinic acid(leucovorin) are chemotherapeutic agents whose molecularstructures are similar to folate; therefore, the Architectfolate assay cannot be used for patients using these drugs. Blood Venous blood specimen / Unknown 04/10/2025 8:29 AM EDT 04/10/2025 11:28 AM EDT us Zeinab Sykes MD LAB BLOOD ORDERABLES Fin al Result [facility] [address] [place] [phone] * TSH with Reflex to Free T4 (04/10/2025 8:29 AM EDT) Pathologist [facility] TSH reflex Free T4 2.11 0.32 - 4.0 uIU/mL [facility] Blood 04/10/2025 8:29 AM EDT 04/10/2025 11:28 AM EDT us Zeinab Sykes MD LAB BLOOD ORDERABLES Fin al Result [facility] [address] [place] [address] [phone] * Lipid Panel with Reflex to Direct LDL (04/10/2025 8:29 AM EDT) Triglycerides 72 <150 mg/dL [facility] Comment:Desirable Triglyceri de: less than 150 mg/dLBorderline High Triglyceride 150-199 mg/dLHigh Triglyceride: 200-499 mg/dLVery High Triglyceride: greater than or equal to 5OO mg/dL Cholesterol 156 <200 mg/dL [facility] Comment:Desirable Cholestero l: less than 200 mg/dLBorderline High Cholesterol: 200-239 mg/dLHigh Cholesterol: greater than 239 mg/dL LDL Cholesterol Calculated 79 <100 mg/dL [facility] Comment:Desirable LDL: less than 100 mg/dLNear Optimal/Above Optimal LDL: 110- 129 mg/dLBorderline High LDL: 130-159 mg/dLHigh LDL: 160-189 mg/dLVery High LDL: greater than or equal to 190 mg/dL HDL Cholesterol 63 >40 mg/dL [facility] Comment:Desirable HDL: great er than 40 mg/dL Note: This HDL assay may give artificially low results in patients with liver disease. Blood 04/10/2025 8:29 AM EDT 04/10/2025 11:28 AM EDT us Zeinab Sykes MD LAB BLOOD ORDERABLES Fin al Result Performing Organization Address City/[facility]/ZIP Co de Phone Number [facility] [address] [place] [address] [phone] * Albumin, Random Urine W/Creatinine (04/10/2025 8:29 AM EDT) Creatinine, Urine 171.83 mg/dL [facility] Microalbumin Urine 11.0 mg/L [facility] Microalbum Creatinine Ratio Ur 6.4 <30 ug/mg cr [facility] Comment:Albumin/Creatinine R atio Reference Ranges: Normal: < 30 ug/mg creatinine Microalbuminuria: 30 - 300 ug/mg creatinineClinical Albuminuria: > 300 ug/mg creatinine Urine (Urine, Random) 04/10/2025 8:29 AM EDT 04/10/2025 11:43 AM EDT us Zeinab Sykes MD LAB URINE ORDERABLES Fin al Result [facility] [address] [place] [phone] * HIV-1/2 Antigen and Antibodies, Fourth Generation, with Reflexes (04/10/2025 8:29 AM EDT) HIV AB/AG Nonreactive Nonreactive [facility] Comment:HIV-1 p24 Ag and/or HIV-1/HIV-2 Ab not detected.A test result that is nonreactive does not exclude thepossibility of exposure to or infection with HIV-1 and/orHIV-2. Nonreactive results in this assay for individualswith prior exposure to HIV-1 and/or HIV-2 may be due toantigen and antibody levels that are below the limit ofdetection of this assay.The Quora HIV Ag/Ab Combo assay result andsupplemental assay results should be interpreted inconjunction with the patient's clinical presentation,history and other laboratory results. If the results areinconsistent with clinical evidence, additional testing issuggested to confirm the result. Blood Venous blood specimen / Unknown 04/10/2025 8:29 AM EDT 04/10/2025 11:28 AM EDT Zeinab Sykes MD LAB BLOOD ORDERABLES Fin al Result [facility] [address] [place] [phone] * (ABNORMAL) Basic Metabolic Panel (04/10/2025 8:29 AM EDT) Sodium 145 135 - 145 mmol/L [facility] Potassium 3.7 3.3 - 5.1 mmol/L [facility] Chloride 108 96 - 108 mmol/L [facility] Carbon Dioxide 28 22 - 29 mmol/L [facility] Anion Gap 13 12 - 20 [facility] Urea Nitrogen (BUN) 16 9 - 16 mg/dL [facility] Creatinine, Serum 0.93 0.5 - 1.4 mg/dL [facility] Estimated Glomerular Filt Rate >60 [facility] Comment:Chronic Kidney Disea se: Estimated GFR < 60 mL/min/1.54g3Ffawsm Kidney Disease: Estimated GFR < 15 mL/min/1.73m2 Glucose 123(H) 60 - 115 mg/dL [facility] Calcium 9.6 8.4 - 10.2 mg/dL [facility] Blood Venous blood specimen / Unknown 04/10/2025 8:29 AM EDT 04/10/2025 11:28 AM EDT Zeinab Sykes MD LAB BLOOD ORDERABLES Fin al Result [facility] [address] [place] [address] [phone] * (ABNORMAL) POCT Hgb A1c (04/02/2025 11:59 AM EDT) Hemoglobin A1C 6.8(A) 4.0 - 5.7 % QC Media Lot # [id number] Lot# Expiration Date ,292,235 Blood 04/02/2025 11:5 9 AM EDT Zeinab Sykes MD POINT OF CARE TE ST ENTER/EDIT ORDERABLES Edited Result - Final * POCT Glucose (04/02/2025 11:57 AM EDT) Glucose Blood, POC 139 60 - 200 mg/dL Comment:random QC Media Lot # [id number] Lot# Expiration Date ,083,780 Blood Capillary blood specimen / Unknown 04/02/2025 [...] - 02/26/2025 11:46 AM EDT .UTOX cup Lot#[id number] Exp. 04/23/26 Internal Pass Control Alma Jha CLOTH SPREADER SCREEN PRINTING POINT OF CARE TEST ENTER/EDIT ORDERABLES Final Result * Pap Smear (06/01/2024 2:43 PM EST) 06/01/2024 2:43 PM EST 06/04/2024 9:25 AM EST [facility] - 06/20/2024 7:51 AM EST ----- ------- Name: Rhonda Fernández Age/Sex: 63/F : 1960 Unit#: [id number] Attend Dr: Aisha Mcclain CNM Re06/01/24 Status: DEP REF Location: HO.LNP Disch: ----- ------- SPEC : [id number] RECD: 06/04/24 STATUS: HODA GARRETT NUM: [id number] DARWIN: 06/01/24-[address]: Aisha Mcclain CNM ENTERED: 06/04/24 SP TYPE: Pap Smr OTHR DR: Zeinab Sykes MD ORDERED: Pap Smear Interpretation Satisfactory for evaluation. Negative for intraepithelial lesion or malignancy. No endocervical cells seen. Mild inflammation. HPV High Risk: Negative HPV Genotyping 16: Negative HPV Genotyping 18: Negative Clinical Information LMP: Postmenopausal Previous PAP test: Unknown date, WNL Material Received ThinPrep-Cervical Copies To: Zeinab Sykes MD [address] [address] Aisha Mcclain CNM [facility] [address] [place] [address] ----- ------- Signed (signature on file) INDERJIT Bloom (ASCP) 06/20/24 0751 ----- ------- END OF REPORT us Generic External Data Provider LAB CYTOLOGY JERED STAFFORD Final Result [facility] [address] [place] [phone] * Hepatitis Panel, General (01/06/2024 12:38 PM EDT) Hepatitis A IgM Nonreactive Nonreactive [facility] Comment:IgM antibodies to GUERIN V not detected; does not exclude earlyacute or recovered HAV infection. ~Hepatitis B Surface Antibody REACTIVE Nonreactive [facility] Comment:REACTIVE: > 11.99 mI U/mL Hepatitis B Core Antibody Nonreactive Nonreactive [facility] Hepatitis C Antibody Nonreactive Nonreactive [facility] Comment:Antibodies to HCV no t detected; does not exclude early acuteHCV infection. Hepatitis B Surface Ag Negative Negative [facility] Blood 01/06/2024 12:3 8 PM EDT 01/06/2024 4:21 PM EDT Zeinab Sykes MD LAB BLOOD ORDERABLES Fin al Result Performing Organization Address [facility] Co de Phone Number [facility] [address] [place] [address] [phone] * Mammography Report 1 (03/15/2022 5:00 PM EDT) Anatomical Region Laterality Modality Breast Bilateral Mammography 03/15/2022 5:00 PM EDT Narrative 03/16/2022 8:33 AM EDT Refer to the Notes tab for result details [facility] Procedure: Mammography Report 1 Procedure Note Provider, MD Parag - 10/10/2022 Refer to the Notes tab for result details [facility] Procedure: Mammography Report 1 us Evelyn Ledesma CLOTH SPREADER SCREEN PRINTING IMG BI PROCEDURES Final Re sult * Hm Colonoscopy (11/05/2020 11:36 AM EDT) Historical Provider HEALTH MAINTENANCE Final Result * HPV mRNA E6/E7 (07/07/2020 12:00 AM EST) HPV nRNA E6/E7 Not Detected Not Detected [facility] Comment: This test was performed using the APTIMA HPV Assay ([employer] This assay detects E6/E7 viral messenger RNA (mRNA) from 14 high-risk HPV types (16,18,31,33,35,39,45,51,52,56,58,59,66,68). The analytical performance characteristics of this assay have been determined by [employer]. The modifications have not been cleared or approved by the FDA. This assay has been validated pursuant to the CLIA regulations and is used for clinical purposes. 07/07/2020 us Historical Provider LAB BLOOD ORDERABLES Sera hayes Result [facility] [address] from Last 3 Months or Most Recently Relevant to Health Maintenance Insurance [facility] C[facility] OPT[facility] (HMO D-SNP) DENTAL - [facility] Care Teams Senior Net Software Engineer Relationship Specialty Start Date End Date Zeinab Sykes MD [address] [place] [phone] PCP - General Internal Medicine 01/02/24 Tomeka Martins Dye OperatorHome Builder 10/27/23 Tj Caring 11/06/24
--- OUTSIDE RECORDS SUMMARY | 2025-04-12 12:28 | XMS_ITS | Encounter Summary ---
Author Organization [employer] Address [address] [place] [address] [address] [place] [address] Care Team Providers Care Condominium Property Manager Name Role Phone Oralia Aguila MD Primary Care Provider [phone] Zeinab Sykes MD Primary Care Provider + Reason for Visit * Reason Comments Med Refill Encounter Details Date Type Department Care Team (Late Contact Info) Description 07/06/2023 Refill [facility] [address] [place] [address] [phone] Bryn Franklin MD [address] [place] [phone] Social History Tobacco Use Types Packs/Day Years [...] Description 05/28/2025 11:00 AM EST Office Visit [facility] [address] [place] [address] [phone] 06/05/2025 11:30 AM EST Office Visit [facility] [address] [place] [address] [phone] Zeinab Sykes MD [address] [place], [place] [phone] 10/03/2025 12:45 PM EDT Office Visit [facility] [address] [place], [place] [phone] Fabi Hogue [address] [place], [place] [phone] documented as of this encounter Goals Goal Patient Goal Type Associated Problems Recent Progress Patient-Stated? Author Patient will manage their medication General On track( 023 11:18 AM EDT) Citlali Ocampo PharmD Note: Began medboxes. Goal achieved 11/19/22. Patient graduated from [facility]. documented as of this encounter Visit Diagnoses Not on filedocumented in this encounter Care Teams Condominium Property Manager Relationship Specialty Start Date End Date Oralia Aguila MD [address] [place] [address] [phone] PCP - General Family Medicine 04/26/23 01/01/24 Zeinab Sykes MD [address] [place] [address] [phone] PCP - General Internal Medicine 01/02/24 Tomeka Martins Bead Forming Machine OperatorTransportation Modeler 10/27/23 Tj Caring 11/06/24 documented as of this encounter
--- OUTSIDE RECORDS SUMMARY | 2025-04-12 12:28 | XMS_ITS | Encounter Summary ---
Author Organization [employer] Address 75 [facility] 7t [place] [address] Care Team Providers Care Post Tronic Machine Operator Name Role Phone Evelyn LedesmaP Primary Care Provider Oralia Dukes MD Primary Care Provider [phone] Zeinab Sykes MD Primary Care Provider + Reason for Visit * Reason Onset Date Comments Referral 02/03/2023 Renewal Encounter Details Date Type Department Care Team (Late st Contact Info) Description 02/03/2023 Telephone [facility] [address] [place] [address] Evelyn Ledesma FNP Referral (Renewal ) Social [...] AM EST Office Visit [facility] [address] [place] [address] 06/05/2025 11:30 AM EST Office Visit [facility] [address] [place] [address] Zeinab Sykes MD 230 [place] [address] 10/03/2025 12:45 PM EDT Office Visit [facility] ADULT [facility] [address] [place], [place] [phone] Fabi oHgue [address] [place] [address] documented as of this encounter Goals Goal Patient Goal Type Associated Problems Recent Progress Patient-Stated? Author Patient will manage their medication General On track( 023 11:18 AM EDT) Citlali Ocampo, Anoop Note: Began medboxes. Goal achieved 11/19/22. Patient graduated from [facility]. documented as of this encounter Visit Diagnoses Not on filedocumented in this encounter Care Teams Post Tronic Machine Operator Relationship Specialty Start Date End Date Evelyn Ledesma FNP PCP - General Family Medicine 03/15/22 04/25/23 Oralia Aguila MD [address] [place] [address] PCP - General Family Medicine 04/26/23 01/01/24 Zeinab Sykes MD [address] [place] [address] PCP - General Internal Medicine 01/02/24 Tomeka Martins Yarn Dry Room WorkerGeneral Activities Therapist 10/27/23 [employer] C[employer] 11/06/24 documented as of this encounter
--- OUTSIDE RECORDS SUMMARY | 2025-04-12 12:28 | XMS_ITS | Encounter Summary ---
Author Organization [employer] Address 75 [facility] 7t [place] [address] Care Team Providers Care Early Intervention School Psychologist Name Role Phone Zeinab Sykes MD Primary Care Provider + Reason for Visit * Reason Comments Med Refill Encounter Details Date Type Department Care Team ([facility] st Contact Info) Description 05/04/2024 Refill [facility] [address] [place], [place] [phone] Zeinab Sykes MD 230 [place] [address] Other intervertebral disc displacement, lumbar region Social [...] Description 05/28/2025 11:00 AM EST Office Visit [facility] [address] [place] [address] 06/05/2025 11:30 AM EST Office Visit [facility] [address] [place] [address] Zeinab Sykes MD 230 [place] [address] 10/03/2025 12:45 PM EDT Office Visit [facility] ADULT DENTAL [address] [place] [address] Mykel, Fabi [address] [place] [address] documented as of this encounter Goals Goal Patient Goal Type Associated Problems Recent Progress Patient-Stated? Author Patient will manage their medication General On track( 023 11:18 AM EDT) No Citlali Armando PharmD Note: Began medboxes. Goal achieved 11/19/22. Patient graduated from [employer]. documented as of this encounter Visit Diagnoses Diagnosis Other intervertebral disc displacement, lumbar region documented in this encounter Additional Health Concerns Assessment Noted Time PHQ-9 Depression Total Score: 18 024 1:46 PM EDT documented as of this encounter Care Teams Early Intervention School Psychologist Relationship Specialty Start Date End Date Zeinab Sykes MD [address] [place] [address] PCP - General Internal Medicine 01/02/24 Tomeka Martins Breaker LayerFuel Buyer 10/27/23 Nikhilara Caring 11/06/24 documented as of this encounter
--- OUTSIDE RECORDS SUMMARY | 2025-04-12 12:28 | XMS_ITS | Encounter Summary ---
Author Organization [employer] Address 75 [facility] 7t [place] [address] Care Team Providers Care Building Principal Name Role Phone Zeinab Sykes MD Primary Care Provider + Reason for Visit * Reason Onset Date Comments COMMERCIAL FINANCE ANALYST referral 04/10/2025 Encounter Details Date Type Department Care Team ([facility] Contact Info) Description 04/10/2025 Telephone [facility] [address] [place], [place] [phone] Zeinab Sykes MD 230 [place] [address] COMMERCIAL FINANCE ANALYST referral Social History Tobacco Use Types Packs/Day Years [...] encounter Miscellaneous Notes * Telephone Encounter - Rita Frias LPN - 04/10/2025 3:11 PM EDT Janessa from [facility] contacted curriculum writer back. Patient stated to [facility] she is unhappy about decreased hours and when [employer] did their assessment they stated she is able to do things on her own and that is why her hours are decreased. Patient submitted appeal with [facility]. Patient requested a letter to be written to state her medical necessity for increase in COMMERCIAL FINANCE ANALYST hours with Janessa from [facility] and Janessa relayed that message to me. Will contact patient to make an appointmentwith Dr. Sykes before letter can be written regarding her tremors and her pinched nerve symptoms. Janessa informed curriculum writer that [facility] will take patient to and from appointments unlimited as long as it is medical. Any rides that aren't medical she gets 5 rides per month. Increased hours for transportation using [employer] hours could not be written in the letter. Janessa to contact patient and explain the transportation policy again. * Telephone Encounter - Rita Frias LPN - 04/10/2025 9:35 AM EDT Patient dropped off letter request for COMMERCIAL FINANCE ANALYST services. Patient has [facility] insurance; contacted [facility] and left voicemail with day care teacher, Janessa Neumann. Per sales representative graphic art-patient already has COMMERCIAL FINANCE ANALYST services in place. Open Claims Representative took information regarding patients concerns; unable to drive to appointments/shopping, hand tremors and pinched nerves and sent it to Janessa. documented in this encounter Plan of Treatment Upcoming Encounters Date Type Department Care Team (Late st Contact Info) Description 05/28/2025 11:00 AM EST Office Visit [facility] [address] [place] [address] [phone] 06/05/2025 11:30 AM EST Office Visit [facility] [address] [place] [address] Zeinab Sykes MD 230 [place] [address] 10/03/2025 12:45 PM EDT Office Visit [facility] ADULT DENTAL 230 [place], [place] [phone] Mykel, Fabi [address] [place] [address] documented as of this encounter Goals Goal Patient Goal Type Associated Problems Recent Progress Patient-Stated? Author Patient will manage their medication General On track( 023 11:18 AM EDT) Citlali Ocampo, Anoop Note: Began medboxes. Goal achieved 11/19/22. Patient graduated from [facility]. documented as of this encounter Visit Diagnoses Not on filedocumented in this encounter Additional Health Concerns Assessment Noted Time PHQ-9 Depression Total Score: 22 025 10:31 AM EST documented as of this encounter Care Teams Building Principal Relationship Specialty Start Date End Date Zeinab Sykes MD [address] [place] [address] PCP - General Internal Medicine 01/02/24 Tomeka Martins Medical Billing SupervisorWhite Sugar Syrup Operator 10/27/23 [employer] 11/06/24 documented as of this encounter
--- OUTSIDE RECORDS SUMMARY | 2025-04-12 12:28 | XMS_ITS | Encounter Summary ---
Author Organization [employer] Address [address] [facility] 7t [place] [address] Care Team Providers Care Material Control Specialist Name Role Phone Evelyn Ledesma Primary Care Provider Oralia Dukes MD Primary Care Provider [phone] Zeinab Sykes MD Primary Care Provider + Reason for Visit * Reason Onset Date Comments Prior Authorization 12/28/2022 Encounter Details Date Type Department Care Team (Late st Contact Info) Description 12/28/2022 Telephone [facility] [address] [place] [address] Evelyn Ledesma FNP Prior Authorization Social History [...] AM EDT T/C placed to pt via [employer] Zeinab #[id number]. Advised of message from pcp re: lab [...] all other NSAIDS. Do you have a documentation spec yet? If not, your PCP would like [...] AM EDT TC luis m Emery from [employer] requesting XL pull ups and disposable under pads . States faxed request couple days ago and have not gotten a response . Informs paper work 12/29/22. Please call to clarify at phone # [phone] . documented in this encounter Plan of Treatment Upcoming Encounters Date Type Department Care Team (Late st Contact Info) Description 05/28/2025 11:00 AM EST Office Visit [facility] [address] [place] [address] 06/05/2025 11:30 AM EST Office Visit [facility] [address] [place] [address] Zeinab Sykes MD 230 [place] [address] 10/03/2025 12:45 PM EDT Office Visit [facility] ADULT DENTAL [address] [place] [address] Fabi Hogue [address] [place] [address] documented as of this encounter Goals Goal Patient Goal Type Associated Problems Recent Progress Patient-Stated? Author Patient will manage their medication General On track( 023 11:18 AM EDT) No Citlali Armando PharmD Note: Began medboxes. Goal achieved 11/19/22. Patient graduated from [facility]. documented as of this encounter Visit Diagnoses Not on filedocumented in this encounter Care Teams Material Control Specialist Relationship Specialty Start Date End Date Evelyn Ledesma FNP PCP - General Family Medicine 03/15/22 04/25/23 Oralia Aguila MD [address] [place] [address] PCP - General Family Medicine 04/26/23 01/01/24 Zeinab Sykes MD [address] [place] [address] PCP - General Internal Medicine 01/02/24 Tomeka Martins Electronic Plotting System OperatorDirector Software Development 10/27/23 [employer] 11/06/24 documented as of this encounter
--- OUTSIDE RECORDS SUMMARY | 2025-04-12 12:28 | XMS_ITS | Clinical Summary ---
Author Organization [facility], Address [address] [place] [address] [place] [address] Phone Care Team Providers Care Tax Intern Name Role Phone Evelyn Rodriguez Primary Care [...] this topic Insurance Medicaid [place] Care Teams Tax Intern Relationship Specialty Start Date End Date Evelyn Rodriguez FNP PCP - General 02/18/23
--- OUTSIDE RECORDS SUMMARY | 2025-04-12 12:28 | XMS_ITS | Encounter Summary ---
Author Organization [employer] Address [address] [place] [address] 7 [place] [address] Care Team Providers Care Operations Project Manager Name Role Phone Evelyn Ledesma PICKER MACHINE OPERATOR Primary Care Provider Oralia Dukes MD Primary Care Provider [phone] Zeinab Sykes MD Primary Care Provider + Encounter Details Date Type Department Care Team (Latest Contact Info) Description 12/21/[address] [facility] Dental, Provider, DDS Social History [...] EST Office Visit [facility] [address] [place] [address] 06/05/2025 11:30 AM EST Office Visit [facility] [address] [place] [address] Zeinab Sykes MD 230 [place] [address] 10/03/2025 12:45 PM EDT Office Visit [facility] ADULT DENTAL [address] [place] [address] Fabi Hogue [address] [place] [address] documented as of this encounter Visit Diagnoses Not on filedocumented in this encounter Care Teams Operations Project Manager Relationship Specialty Start Date End Date Evelyn Ledesma FNP PCP - General Family Medicine 03/15/22 04/25/23 Oralia Aguila MD [address] [place], [place] [phone] PCP - General Family Medicine 04/26/23 01/01/24 Zeinab Sykes MD [address] [place], [place] [phone] PCP - General Internal Medicine 01/02/24 Tomeka Martins Chemical Dependency CounselorAutomotive Internet Sales Consultant 10/27/23 [employer] 11/06/24 documented as of this encounter
--- OUTSIDE RECORDS SUMMARY | 2025-04-12 12:28 | XMS_ITS | Encounter Summary ---
Author Organization [employer] Address [address] [facility] 7t [place] [address] Care Team Providers Care Program Development Manager Name Role Phone Evelyn LedesmaP Primary Care Provider Oralia Dukes MD Primary Care Provider [phone] Zeinab Sykes MD Primary Care Provider + Reason for Visit * Reason Onset Date Comments case from lab 11/04/2022 Encounter Details Date Type Department Care Team (Late st Contact Info) Description 11/04/2022 Telephone [facility] [address] [place] [address] Asad Shore, DDS [address] [place] [address] case from lab Social History Tobacco Use [...] Description 05/28/2025 11:00 AM EST Office Visit [facility] 230 [place] [address] 06/05/2025 11:30 AM EST Office Visit [facility] [address] [place] [address] Zeinab Skyes MD [address] [place] [address] 10/03/2025 12:45 PM EDT Office Visit [facility] ADULT DENTAL [address] [place] [address] Mykel, Fabi [address] [place] [address] documented as of this encounter Visit Diagnoses Not on filedocumented in this encounter Care Teams Program Development Manager Relationship Specialty Start Date End Date Evelyn Ledesma FNP PCP - General Family Medicine 03/15/22 04/25/23 Oralia Aguila MD [address] [place] [address] PCP - General Family Medicine 04/26/23 01/01/24 Zeinab Sykes MD [address] [place] [address] PCP - General Internal Medicine 01/02/24 Tomeka Martins Aviation ElectricianMotion Study Analyst 10/27/23 [employer] 11/06/24 documented as of this encounter
--- OUTSIDE RECORDS SUMMARY | 2025-04-12 12:28 | XMS_ITS | Encounter Summary ---
Author Organization [employer] Address [address] [facility] 7t [place] [address] Care Team Providers Care Manager Electrical Name Role Phone Evelyn LedesmaP Primary Care Provider Oralia Dukes MD Primary Care Provider [phone] Zeinab Sykes MD Primary Care Provider + Reason for Visit * Reason Onset Date Comments medical clearance 02/11/2023 Encounter Details Date Type Department Care Team (Late st Contact Info) Description 02/11/2023 Telephone [facility] [address] [place] [address] Asad Shore, DDS [address] [place] [address] medical clearance Social History Tobacco Use Types [...] Description 05/28/2025 11:00 AM EST Office Visit [facility] [address] [place] [address] 06/05/2025 11:30 AM EST Office Visit [facility] [address] [place] [address] Zeinab Sykes MD [address] [place] [address] 10/03/2025 12:45 PM EDT Office Visit [facility] [address] [place] [address] Fabi Hogue [address] [place] [address] documented as of this encounter Goals Goal Patient Goal Type Associated Problems Recent Progress Patient-Stated? Author Patient will manage their medication General On track( 023 11:18 AM EDT) Citlali Ocampo, PharmCatrachita Note: Began medboxes. Goal achieved 11/19/22. Patient graduated from [facility]. documented as of this encounter Visit Diagnoses Not on filedocumented in this encounter Care Teams Manager Electrical Relationship Specialty Start Date End Date Evelyn Ledesma FNP PCP - General Family Medicine 03/15/22 04/25/23 Oralia Aguila MD [address] [place] [address] [phone] PCP - General Family Medicine 04/26/23 01/01/24 eZinab Sykes MD [address] [place] [address] PCP - General Internal Medicine 01/02/24 Tomeka Martins PlanogrammerProduct Safety Test Engineer 10/27/23 [employer] 11/06/24 documented as of this encounter
--- OUTSIDE RECORDS SUMMARY | 2025-04-12 12:28 | XMS_ITS | Encounter Summary ---
Author Organization [employer] Address [address] [facility] 7t [place] [address] Care Team Providers Care Chief Of Safety And Protection Name Role Phone Zeinab Sykes MD Primary Care Provider + Reason for Visit * Reason Onset Date Comments telephone call 04/09/2025 Encounter Details Date Type Department Care Team ([facility] Contact Info) Description 04/09/2025 Telephone [facility] [address] [place], [place] [phone] Zeinab Sykes MD [address] [place] [address] telephone call Social History Tobacco Use Types [...] Office Visit [facility] [address] [place] [address] 06/05/2025 11:30 AM EST Office Visit [facility] [address] [place] [address] Zeinab Sykes MD [address] [place] [address] 10/03/2025 12:45 PM EDT Office Visit [facility] ADULT DENTAL [address] [place] [address] Fabi Hogue [address] [place] [address] documented as of this encounter Goals Goal Patient Goal Type Associated Problems Recent Progress Patient-Stated? Author Patient will manage their medication General On track( 023 11:18 AM EDT) Citlali Ocampo, Anoop Note: Began medboxes. Goal achieved 11/19/22. Patient graduated from [facility]. documented as of this encounter Visit Diagnoses Not on filedocumented in this encounter Additional Health Concerns Assessment Noted Time PHQ-9 Depression Total Score: 22 025 10:31 AM EST documented as of this encounter Care Teams Chief Of Safety And Protection Relationship Specialty Start Date End Date Zeinab Sykes MD 230 [place] [address] PCP - General Internal Medicine 01/02/24 Tomeka aMrtins Web ManagerCriminology Teacher 10/27/23 [employer] 11/06/24 documented as of this encounter
--- OUTSIDE RECORDS SUMMARY | 2025-04-12 12:28 | XMS_ITS | Encounter Summary ---
Author Organization [employer] Address [address] [place] [address] 7 [place] [address] Care Team Providers Care Shop Fitter Name Role Phone Oralia Aguila MD Primary Care Provider [phone] Zeinab Sykes MD Primary Care Provider + Reason for Visit * Reason Comments Med Refill Encounter Details Date Type Department Care Team (Late Contact Info) Description 09/21/2023 Refill [facility] MEDICINE [address] [place] [address] [phone] Oralia Aguila MD [address] [place] [address] [phone] Neuropathy Social History Tobacco Use Types Packs/Day [...] Visit [facility] MEDICINE [address] [place] [address] [phone] 06/05/2025 11:30 AM EST Office Visit [facility] MED[facility]INE [address] [place] [address] [phone] Zeinab Sykes MD 230 [place], [place] [phone] 10/03/2025 12:45 PM EDT Office Visit [facility] ADULT DENTAL [address] [place], [place] [phone] Fabi Hogue [address] [place], [place] [phone] documented as of this encounter Goals Goal Patient Goal Type Associated Problems Recent Progress Patient-Stated? Author Patient will manage their medication General On track( 023 11:18 AM EDT) Citlali Ocampo PharmD Note: Began medboxes. Goal achieved 11/19/22. Patient graduated from [facility]. documented as of this encounter Visit Diagnoses Diagnosis Neuropathy Mononeuritis of unspecified site documented in this encounter Care Teams Shop Fitter Relationship Specialty Start Date End Date Oralia Aguila MD [address] [place] [address] [phone] PCP - General Family Medicine 04/26/23 01/01/24 Zeinab Sykes MD [address] [place] [address] [phone] PCP - General Internal Medicine 01/02/24 Tomeka Martins Military Science TeacherEmail Marketer 10/27/23 [employer] 11/06/24 documented as of this encounter
--- OUTSIDE RECORDS SUMMARY | 2025-04-12 12:28 | XMS_ITS | Encounter Summary ---
Author Organization [facility], Address [address] [place] [address] Phone Care Team Providers Care Ocean Transportation Intermediary Name Role Phone Evelyn Rodriguez Primary Care Provider Silvana vailable Encounter Details Date Type Department Care Team (Late st Contact Info) Description 02/18/2023 Documentation Only [facility], [address] [place] [address] Xiao Sheppard [address] [place] [address] Social History Tobacco Use Types [...] on filedocumented in this encounter Care Teams Ocean Transportation Intermediary Relationship Specialty Start Date End Date Evelyn Rodriguez FNP PCP - General 02/18/23 documented as of this encounter
--- OUTSIDE RECORDS SUMMARY | 2025-04-12 12:28 | XMS_ITS | Encounter Summary ---
Author Organization [employer] Address [address] [facility] 7t [place] [address] Care Team Providers Care Sales Support Engineer Name Role Phone Zeinab Sykes MD Primary Care Provider + Reason for Visit * Reason Comments Med Refill Encounter Details Date Type Department Care Team ([facility] st Contact Info) Description 02/16/2025 Refill [facility] [address] [place], [place] [phone] Zeinab Sykes MD [address] [place] [address] Neuropathy Social History Tobacco Use Types Packs/Day [...] Description 05/28/2025 11:00 AM EST Office Visit [facility] [address] [place] [address] 06/05/2025 11:30 AM EST Office Visit [facility] [address] [place] [address] Zeinab Sykes MD [address] [place] [address] 10/03/2025 12:45 PM EDT Office Visit [facility] ADULT DENTAL [address] [place] [address] Fabi Hogue [address] [place] [address] documented as of this encounter Goals Goal Patient Goal Type Associated Problems Recent Progress Patient-Stated? Author Patient will manage their medication General On track( 023 11:18 AM EDT) No Citlali Armando, Anoop Note: Began medboxes. Goal achieved 11/19/22. Patient graduated from [facility]. documented as of this encounter Visit Diagnoses Diagnosis Neuropathy Mononeuritis of unspecified site documented in this encounter Additional Health Concerns Assessment Noted Time PHQ-9 Depression Total Score: 22 025 10:31 AM EST documented as of this encounter Care Teams Sales Support Engineer Relationship Specialty Start Date End Date Zeinab Sykes MD [address] [place] [address] PCP - General Internal Medicine 01/02/24 Tomeka Martins Tile Molder HandQa Developer 10/27/23 [employer] 11/06/24 documented as of this encounter
--- OUTSIDE RECORDS SUMMARY | 2025-04-12 12:28 | XMS_ITS | Encounter Summary ---
Author Organization [employer] Address [address] [place] [address] 7 [place] [address] Care Team Providers Care Ups Driver Name Role Phone Oralia Aguila MD Primary Care Provider [phone] Zeinab Sykes MD Primary Care Provider + Reason for Visit * Reason Comments Med Refill Encounter Details Date Type Department Care Team (Late Contact Info) Description 08/09/2023 Refill [facility] MED[facility]INE [address] [place] [address] [phone] Oralia Aguila MD [address] [place] [address] [phone] Other intervertebral disc displacement, lumbar region Social [...] Description 05/28/2025 11:00 AM EST Office Visit [facility] [address] [place] [address] [phone] 06/05/2025 11:30 AM EST Office Visit [facility] [address] [place] [address] [phone] Zeinab Sykes MD [address] [place] [address] 10/03/2025 12:45 PM EDT Office Visit [facility] ADULT DENTAL 230 [place] [address] Fabi Hogue 230 [place] [address] documented as of this encounter Goals Goal [...] region documented in this encounter Care Teams Ups Driver Relationship Specialty Start Date End Date Oralia Aguila MD [address] [place] [phone] PCP - General Family Medicine 04/26/23 01/01/24 Zeinab Sykes MD [address] [place] [phone] PCP - General Internal Medicine 01/02/24 Tomeka Martins Restorative Rehab AideManager Asset Management 10/27/23 [employer] 11/06/24 documented as of this encounter
--- OUTSIDE RECORDS SUMMARY | 2025-04-12 12:28 | XMS_ITS | Encounter Summary ---
Author Organization [employer] Address [address] [place] [address] 7t [place] [address] Care Team Providers Care Fire Warden Name Role Phone Oralia Aguila MD Primary Care Provider [phone] Zeinab Sykes MD Primary Care Provider + Reason for Visit * Reason Onset Date Comments Med Refill 05/05/2023 Encounter Details Date Type Department Care Team (Late st Contact Info) Description 05/05/2023 Refill [facility] 230 [place] [address] Oralia Aguila MD 230 [place] [address] Other intervertebral disc displacement, lumbar region Social [...] 5- 325 MG tablet to besent to [facility] - [place], [place] - [address] [facility] documented in this encounter Plan of Treatment Upcoming Encounters Date Type Department Care Team (Late st Contact Info) Description 05/28/2025 11:00 AM EST Office Visit [facility] MED[facility]INE [address] [place] [address] 06/05/2025 11:30 AM EST Office Visit [facility] [place] [address] Zeinab Sykes MD [address] [place] [address] 10/03/2025 12:45 PM EDT Office Visit [facility] ADULT DENTAL [address] [place] [address] Fabi Hogue [address] [place] [address] documented as of this encounter Goals Goal Patient Goal Type Associated Problems Recent Progress Patient-Stated? Author Patient will manage their medication General On track( 023 11:18 AM EDT) No Citlali Armando, Anoop Note: Began medboxes. Goal achieved 11/19/22. Patient graduated from [facility]. documented as of this encounter Visit Diagnoses Diagnosis Other intervertebral disc displacement, lumbar region documented in this encounter Care Teams Fire Warden Relationship Specialty Start Date End Date Oralia Aguila [place] [address] PCP - General Family Medicine 04/26/23 01/01/24 [place] [address] PCP - General Internal Medicine 01/02/24 Tomeka Martins Manager InterventionalInvestor Relations Specialist 10/27/23 [facility] 11/06/24 documented as of this encounter
--- OUTSIDE RECORDS SUMMARY | 2025-04-12 12:28 | XMS_ITS | Encounter Summary ---
Author Organization [employer] Address [address] [place] [address] 7t [place] [address] Care Team Providers Care Platform Man Name Role Phone Evelyn Ledesma Primary Care Provider Silvana Oralia Alamo MD Primary Care Provider [phone] Zeinab Sykes MD Primary Care Provider + Encounter Details Date Type [facility] Description 08/20/2022 Orders Only [address] [address] Karen Henderson FNP Social History Tobacco Use [...] Upcoming Encounters Date Type Department [facility] Description 05/28/2025 11:00 AM EST Office Visit [address] [address] 06/05/2025 11:30 AM EST Office Visit [address] [place] [address] Zienab Sykes MD [address] [place] [address] 10/03/2025 12:45 PM EDT Office Visit [facility] ADULT DENTAL [address] [place] [address] Fabi Hogue [address] [place] [address] documented as of this encounter Visit Diagnoses Not on filedocumented in this encounter Care Teams Platform Man Relationship Specialty Start Date End Date Evelyn Ledesma FNP PCP - General Family Medicine 03/15/22 04/25/23 Oralia Aguila MD [address] [place] [address] [phone] PCP - General Family Medicine 04/26/23 01/01/24 Zeinab Sykes MD [address] [place] [address] [phone] PCP - General Internal Medicine 01/02/24 Tomeka Martins Parts Counter SalespersonMortgage Collector 10/27/23 [facility] [facility] 11/06/24 documented as of this encounter
== END 2025-04-12 10:48 | disposition home or self-care (01) ==
LOC: HO.MAMMO 10:47
PROVIDERS: PCP Internal Medicine; Visit Provider Internal Medicine
DX: Z12.31 Encounter for screening mammogram for malignant neoplasm of breast (principal)
CPT/HCPCS: 77063; 77067

== ENCOUNTER → 2025-04-12 11:30 | Outpatient (BNV) | payer OTHER, SELFPAY | PROVIDERS: PCP Internal Medicine; Visit Provider Internal Medicine | DX: Z12.31 Encounter for screening mammogram for malignant neoplasm of breast (principal) | CPT/HCPCS: 77063; 77067 ==

== ENCOUNTER 2025-04-17 08:28 | Outpatient (AMB) | payer OTHER, SELFPAY ==
[2025-04-17 08:34] VITALS: BP 130/70; BMI 35.1
--- NOTE | 2025-04-17 08:34 | A.OFFVIS_ITS ---
Vital Signs 04/17/25 08:34 Height 5 ft 3 in Weight 198 lb BMI 35.1 BP 130/70 Intake Visit Reasons: rectocele Heating And Ventilating Drafter Required: Yes Heating And Ventilating Drafter Language: Leather Belt Loop Cutter Services: Heating And Ventilating Drafter Present (in person) Heating And Ventilating Drafter Name: Leola JON Information Interpreted: non-clinical & clinical Scrap Hoist Operator: Scrap Hoist Operator Present (Leola JON) Accompanied by: Self / Same As Patient Allergies No Known Drug Allergies Allergy (Unknown, Verified 04/17/25 08:39) none pineapple (PINEAPPLE) Allergy (Unknown, Verified 04/17/25 08:39) TONGUE SWELLS latex Allergy (Verified 04/17/25 08:39) Unknown HPI Comments Details: Presenting referred from GI for evaluation of rectocele . The patient has been having rectal leakage. Has history of 2 recurrent rectocele status post rectocele repair last 1 was few years ago. The patient does not complain of any bulge per vagina or any constipation and no need for splinting PFSH Medical History Irritable bowel syndrome with constipation Environmental allergies Hypertension Primary osteoarthritis of left knee Primary osteoarthritis of right knee Hemorrhoids Diverticulosis large intestine w/o perforation or abscess w/o bleeding Encounter for screening colonoscopy Preoperative cardiovascular examination HART (dyspnea on exertion) Epigastric pain Chronic cough Gastric outlet obstruction Complications of bariatric procedures Pre-syncope Encounter for well woman exam with routine gynecological exam Postmenopausal bleeding Elevated cholesterol Full dentures Low back pain COVID-19 vaccine series completed Asthma Palpitations Diabetes mellitus Obesity Erosive osteoarthritis Primary osteoarthritis of knees, bilateral Surgical History H/O perineoplasty H/O bariatric surgery Status post total right knee replacement History of bladder surgery History of total bilateral knee replacement Hx of colonoscopy Hx of reduction mammoplasty Hx of tonsillectomy History of H/O Spinal surgery Family History Mother Hx of acute arthritis Father History of Parkinson's disease Social History Household Members Other:: Daughter Housing: House Are you a primary inspector health care facilities to a significant other at home: No Do you presently have visiting nurse or other home services: No Unable to assess alcohol history related to: Unknown Alcohol intake: never Patient Tobacco Use Status: Never used Tobacco Current occupational status: disabled Current occupation: rt handed Sexual orientation: Straight/Heterosexual Gender identity: Female Review of Systems Const All systems reviewed & are unremarkable except as noted in HPI and below Physical Exam Vital Signs: Last Vital Signs BP 130/70 04/17/25 08:34 BMI result Body Mass Index 35.1 General: Yes no CVA tenderness External Female Exam: normal external appearance and normal appearance of the urethra Speculum Exam - Vagina: normal appearance of the vagina, normal palpation, no lesions, no masses and other (No evidence of cysto or rectocele) Speculum Exam - Cervix: normal appearance of the cervix, normal palpation, no lesions, no masses and nontender Bimanual exam- vagina & uterus: normal bimanual exam, normal palpation, uterine size normal, normal palpation, uterine shape normal, No Cervical tenderness present and non-tender Bimanual Exam- Adnexa, other: normal adnexae Back/Spine/Pelvis Back: no CVA tenderness Assessment & Plan Assessment & Plan (1) Rectal leakage: Code(s): R15.9 - Full incontinence of feces Category: Medical Plan: Discussed with the patient the finding on pelvic exam no evidence of cystocele or rectocele, recommended follow-up with GI for further management. All qu estions answered, the patient verbalized understanding Coding Level of Care Code Est Pt Level 3 (85195) Diagnoses Rectal leakage R15.9
--- OUTSIDE RECORDS SUMMARY | 2025-04-17 09:00 | XMS_ITS | Encounter Summary ---
Author Organization [employer] Address [address] [facility] 7t [place] [address] Care Team Providers Care Flight Dynamicist Name Role Phone Evelyn Ledesma Primary Care Provider Oralia Dukes MD Primary Care Provider [phone] Zeinab Sykes MD Primary Care Provider + Reason for Visit * Reason Onset Date Comments Appointment Request 12/20/2022 Encounter Details Date Type Department Care Team (Late st Contact Info) Description 12/20/2022 Telephone [facility] MEDICINE [address] [place] [address] Evelyn Ledesma FNP Appointment Request Social History [...] an earlier day) Please contact pt at [phone] documented in this encounter Plan of Treatment Upcoming Encounters Date Type Department Care Team (Late st Contact Info) Description 05/17/2025 1:00 PM EDT Nutrition [facility] DIABETES/NUTRITION [address] [place] [address] Juana Gusman, RD [address] [place] [address] 05/28/2025 11:00 AM EST Office Visit [facility] MEDICINE [address] [place] [address] 06/05/2025 11:30 AM EST Office Visit [facility] MED[facility]INE [address] [place] [address] Zeinba Sykes MD 230 [place] [address] 10/03/2025 12:45 PM EDT Office Visit [facility] ADULT DENTAL [address] [place] [address] Mykel Fabi [address] [place] [address] documented as of this encounter Goals Goal Patient Goal Type Associated Problems Recent Progress Patient-Stated? Author Patient will manage their medication General On track( 023 11:18 AM EDT) Citlali Ocampo, PharmD Note: Began medboxes. Goal achieved 11/19/22. Patient graduated from [facility]. documented as of this encounter Visit Diagnoses Not on filedocumented in this encounter Care Teams Flight Dynamicist Relationship Specialty Start Date End Date Evelyn Ledesma FNP PCP - General Family Medicine 03/15/22 04/25/23 Oarlia Aguila MD [address] [place] [phone] PCP - General Family Medicine 04/26/23 01/01/24 Zeinab Sykes MD [address] [place] [address] PCP - General Internal Medicine 01/02/24 Tomeka Martins Yarn Texturing Machine OperatorAudio Experience Expert 10/27/23 [facility] [facility] 11/06/24 documented as of this encounter
--- OUTSIDE RECORDS SUMMARY | 2025-04-17 09:00 | XMS_ITS | Encounter Summary ---
Author Organization [facility], Address [address] [place] [address] Phone Care Team Providers Care Umbrella Mender Name Role Phone Evelyn Rodriguez Primary Care Provider Silvana vailable Encounter Details Date Type Department Care Team (Late st Contact Info) Description 02/18/2023 Documentation Only [facility], [address] [place] [address] Xiao Sheppard [address] [place] [address] Social History Tobacco Use Types [...] on filedocumented in this encounter Care Teams Umbrella Mender Relationship Specialty Start Date End Date Evelyn Rodriguez FNP PCP - General 02/18/23 documented as of this encounter
--- OUTSIDE RECORDS SUMMARY | 2025-04-17 09:00 | XMS_ITS | Clinical Summary ---
Author Organization [facility], Address [address] [place] [address] [place] [address] Phone Care Team Providers Care Qa Analyst Name Role Phone Evelyn Rodriguez Primary Care [...] this topic Insurance Medicaid [place] Care Teams Qa Analyst Relationship Specialty Start Date End Date Evelyn Rodriguez FNP PCP - General 02/18/23
--- OUTSIDE RECORDS SUMMARY | 2025-04-17 09:00 | XMS_ITS | Encounter Summary ---
Author Organization [employer] Address [address] [place] [address] 7 [place] [address] Care Team Providers Care Auto Body Repairer Name Role Phone Evelyn Ledesma Primary Care Provider Silvana Oralia Alamo MD Primary Care Provider [phone] Zeinab Sykes MD Primary Care Provider + Reason for Visit * Reason Comments Med Refill Encounter Details Date Type Department Care Team (Late st Contact Info) Description 02/05/2023 Refill [facility] MEDICINE [address] [place] [address] [phone] Evelyn Ledesma FNP Neuropathy Social History Tobacco [...] Info) Description 05/17/2025 1:00 PM EDT Nutrition [facility] DIABETES/NUTRITION 230 [place], [place] [phone] Juana Gusman, MONICA 230 [place], [place] [phone] 05/28/2025 11:00 AM EST Office Visit [facility] MEDICINE 230 [place] [address] 06/05/2025 11:30 AM EST Office Visit [facility] MEDICINE [address] [place] [address] Zeinab Sykes MD 230 [place] [address] 10/03/2025 12:45 PM EDT Office Visit [facility] ADULT DENTAL [address] [place] [address] Mykel, Fabi [address] [place] [address] documented as of this encounter Goals Goal [...] site documented in this encounter Care Teams Auto Body Repairer Relationship Specialty Start Date End Date Evelyn Ledesma FNP PCP - General Family Medicine 03/15/22 04/25/23 Oralia Aguila MD [address] [place] [address] PCP - General Family Medicine 04/26/23 01/01/24 Zeinab Sykes MD [address] [place] [phone] PCP - General Internal Medicine 01/02/24 Tomeka Martins Senior Information Security ArchitectChild And Adolescent Therapist 10/27/23 [facility] 11/06/24 documented as of this encounter
--- OUTSIDE RECORDS SUMMARY | 2025-04-17 09:00 | XMS_ITS | Encounter Summary ---
Author Organization [employer] Address [address] [facility] 7t [place] [address] Care Team Providers Care Layboy Tender Name Role Phone Zeinab Sykes MD Primary Care Provider + Reason for Visit * Reason Comments Med Refill Encounter Details Date Type Department Care Team ([facility] st Contact Info) Description 02/16/2025 Refill [facility] MEDICINE 230 [place], [place] [phone] Zeinab Sykes MD 230 [place] [address] Neuropathy Social History Tobacco Use Types Packs/Day [...] Info) Description 05/17/2025 1:00 PM EDT Nutrition [facility] DIABETES/NUTRITION [address] [place] [address] [phone] [place] [address] 05/28/2025 11:00 AM EST Office Visit [facility] MEDICINE [address] [place] [phone] 06/05/2025 11:30 AM EST Office Visit [facility] MEDICINE [address] [place] [address] Zeinab Sykes MD [address] [place] [address] 10/03/2025 12:45 PM EDT Office Visit [facility] ADULT DENTAL [address] [place] [address] Fabi Hogue [address] [place] [address] documented as of this encounter Goals Goal Patient Goal Type Associated Problems Recent Progress Patient-Stated? Author Patient will manage their medication General On track( 023 11:18 AM EDT) No Citlali Armando, PharmD Note: Began medboxes. Goal achieved 11/19/22. Patient graduated from [facility]. documented as of this encounter Visit Diagnoses Diagnosis Neuropathy Mononeuritis of unspecified site documented in this encounter Additional Health Concerns Assessment Noted Time PHQ-9 Depression Total Score: 22 025 10:31 AM EST documented as of this encounter Care Teams Layboy Tender Relationship Specialty Start Date End Date Zeinab Sykes MD [address] [place] [address] PCP - General Internal Medicine 01/02/24 Tomeka Martins Adoption Services ManagerMultiple Drum Sander 10/27/23 [facility] 11/06/24 documented as of this encounter
--- OUTSIDE RECORDS SUMMARY | 2025-04-17 09:00 | XMS_ITS | Clinical Summary ---
Author Organization [employer] Address [address] [facility] [address] [place] [address] Care Team Providers Care Wall Worker Name Role Phone Zeinab Sykes MD [...] in the morning. Active oxymetazoline (Afrin Nasal Only) 0.05 % nasal spray Administer 2 sprays [...] complication, without long-term current use of insulin ([facility]) 1 each by Other route Once per day. USE TO TEST BLOOD SUGAR ONCE A DAY 100 each 3 024 Active glucose blood (FREESTYLE LITE) test stripIndications:T ype 2 diabetes mellitus without complication, without long-term current use of insulin ([facility]) USE TO TEST BLOOD SUGAR ONCE A DAY 100 each 3 024 Active Alcohol Swabs (Alcohol Prep) padsIndications:Ty pe 2 diabetes mellitus without complication, without long-term current use of insulin ([facility]) USE TWICE DAILY 100 each 5 025 [...] at bedtime. 90 tablet 1 025 Active nystatin (Mycostatin) ointment Apply [...] 2025 Active ergocalciferol (Vitamin D2) 1.25 MG (39022 UT) capsule TAKE 1 CAPSULE BY MOUTH [...] 024 2024 Discontinued(T herapy completed) sodium chloride ([place] Nasal Only) 0.65 % nasal sprayIndications:A cute nasopharyngitis Administer 1 spray into each nostril if needed for congestion. 30 mL 1 025 2024 Discontinued(T herapy completed) ergocalciferol (Vitamin D2) 1.25 MG (53541 UT) capsule Take 1 capsule (1.25 mg) [...] bx, I will fu or refer to SHINE WORKER after US reports. Left foot pain 03/29/2024 [...] decompressive laminectomy at [facility] - surgeon Dr. Melia Pedroza DME request for 10-in-1 pillow on 07/31/24 (not approved by insurance) Assessment & Plan (10/23/2024 2:47 PM EDT): Known DDD L-spine with radiculopathy sxs 05/26/2018 - Lumbar decompression surgery: L4-5 and right L5-S1 decompressive laminectomy at [facility] - surgeon Dr. Melia Pedroza DME request for 10-in-1 pillow on 07/31/24 (not approved by insurance) Assessment & Plan (09/27/2024 11:23 AM EDT): Known DDD L-spine with radiculopathy sxs 05/26/2018 - Lumbar decompression surgery: L4-5 and right L5-S1 decompressive laminectomy at [facility] - surgeon Dr. Melia Pedroza DME request for 10-in-1 pillow on 07/31/24 (not approved by insurance) Assessment & Plan (07/31/2024 4:58 PM EST): Known DDD L-spine with radiculopathy sxs 05/26/2018 - Lumbar decompression surgery: L4-5 and right L5-S1 decompressive laminectomy at [facility] - surgeon Dr. Melia Pedroza DME request for 10-in-1 pillow on 07/31/24 Assessment & Plan (05/29/2024 5:18 PM EST): Known DDD L-spine with radiculopathy sxs 05/26/2018 - Lumbar decompression surgery: L4-5 and right L5-S1 decompressive laminectomy at [facility] - surgeon Dr. Melia Pedroza Assessment & [...] disc, s/p vagus nerve stimulator, neuropathy Last SERVICES ADVISOR Agreement: 02/26/25 Tier 3: SERVICES ADVISOR visit Q4-6 months. (Last evaluated Jul 2024 [...] of scalp 01/02/2024 Overview (01/02/2024): Seen at [facility] dermatology Assessment & Plan (03/20/2024 3:50 PM EDT): Generally well controlled, encouraged to continue fu with [facility] derm Refill for fluocinolone today. Housing insecurity 01/02/2024 Assessment & Plan (08/15/2024 1:36 PM EST): See above. Applying for housing and need handicap access. Assessment & Plan (03/20/2024 3:51 PM EDT): Awaiting housing application, lives in abasement FU with [facility]. Stage 3a chronic kidney disease (CMS/HCC) 2023 Assessment & Plan (03/29/2024 2:39 PM EDT): [...] albuterol prn. Will refer her back to matcher. RUQ pain 10/05/2023 Assessment & Plan (11/01/2023 [...] ballon inside the gastric body placed in [place] for bariatric procedure about 20 cm in [...] lumbar r egion 05/17/2017 Overview (09/17/2022): On SERVICES ADVISOR contract. discussed tapering percocet options, not interested.. Referred to HIM forms dept for handicap plackards documents. Referred to [facility] for polypharmacy education. Continue medications as prescribed. Discussed Narcan. Encouraged nonpharmacologic pain relief strategies. will f/up next visit Assessment & Plan (04/02/2025 3:45 PM EDT): On [facility] contract, continue Percocet 3-4 times per day and follow-up with chronic pain management program and SERVICES ADVISOR nurse. We have done [employer] education re [...] & Plan (03/20/2024 3:48 PM EDT): On SERVICES ADVISOR contract. discussed tapering percocet options, not interested, it apparently offers partial enough improvement of sxs. Patient is aware that halfway use of opiates can cause hyperalgesia, liver toxicity, LABORER H[employer]SE toxicity, increase anxiety, among others. Will continue to work with chronic pain management [facility] clinic. Continue medications as prescribed. Discussed Narcan. [...] PRN for elevated BP readings.. Referred to [facility] for polypharmacy education. Continue medications as [...] pseudophedrine short term. Will refer her to matcher again so she can be evaluated for allergy and receive treatment if indicated. Acute maxillary sinusitis 09/08/2023 Viral URI 09/03/2022 09/13/2023 Back pain 08/20/2022 12/30/2022 Onychomycosis of multiple to enails with type 2 diabetes mellitus 05/17/2017 03/29/2024 Encounters * This document contains information received from the source organization and may not represent a complete record from that organization. Date Type Department Care Team Description 04/17/2025 Refill [facility] [address] [place] [address] Zeinab Sykes MD 04/15/2025 Telephone [facility] [address] [place] [phone] Zeinab Sykes MD Nutrition referral 04/11/2025 Refill [facility] [address], [place] [phone] Zeinab Sykes MD 04/10/2025 8:00 AM EDT Office Visit [facility] [address], [place] [phone] Gay Thompson DDS Ill-fitting dentures (Primary Dx) 04/10/2025 Telephone [facility] [address] [place] [address] [phone] Zeinab Sykes MD GLOBAL COMMODITY MANAGER referral 04/09/2025 Telephone [facility] [address] [place] [phone] Zeinab Sykes MD telephone call 04/04/2025 11:15 AM EDT Office Visit [facility] [address] [place] [address] Watkins-Maynard, Gay, DDS Edentulism (Primary Dx); Partially edentulous mandible, class I edentulism 04/02/2025 11:15 AM EDT Office Visit [facility] [address] [place] [phone] Zeinab Sykes MD Type 2 diabetes mellitus without complication, without long-term current use of insulin ([facility]) (Primary Dx); Essential hypertension; Arthritis; Moderate persistent [...] mammogram for breast cancer 04/02/2025 Patient Outreach [facility] [address] [place] [phone] Zeinab Sykes MD Care Coordination (CHW outreach for SDOH housing search-referral completed ) 04/02/2025 Travel 04/02/[address] [address] Zeinab Sykes MD appt change 03/27/2025 11:15 AM EDT Office Visit [facility] [address] [place] [address] Watkins-Maynard, Gay, DDS Edentulism (Primary Dx); Partially edentulous mandible, class I edentulism 03/27/2025 Refill [facility] [address] [place] [address] Janessa Jolley MD Other intervertebral disc displacement, lumbar region 03/19/2025 11:00 AM EDT Office Visit [facility] [address] [place] [address] Watkins-Maynard, Gay, DDS Edentulism (Primary Dx); Partially edentulous mandible, class I edentulism 03/08/2025 10:00 AM EDT Office Visit [facility] [address] [place] [address] Watkins-Maynard, Gay, DDS Edentulism (Primary Dx); Partially edentulous mandible, class I edentulism 03/06/2025 Refill [facility] [address] [place] [address] Zeinab Sykes MD Neuropathy 02/27/2025 Refill [facility] [address] [place] [address] Zeinab Sykes MD Other intervertebral disc displacement, lumbar region 02/26/2025 11:00 AM EDT Office Visit [facility] [address] [place] [address] Alma Jha, AEROSPACE QUALITY ENGINEER Lumbar back pain with radiculopathy affecting left lower extremity (Primary Dx); Long-term current use of opiate analgesic 02/26/2025 Travel 02/21/2025 Telephone [facility] [address] [place] [phone] Zeinab Sykes MD Prior Authorization ([facility] PA: Lidocaine 5% Patch) 02/20/2025 Refill [facility] [address] [place] [address] Zeinab Sykes MD Other intervertebral disc displacement, lumbar region 02/18/2025 Telephone [facility] [address] [place] [address] Zeinab Sykes MD Referral 02/18/2025 Telephone [facility] [address] [place] [phone] Zeinab Sykes MD Durable Medical Equipment (DME Order: Multiple Items) 02/16/2025 Refill [facility] [address] [place] [address] Zeinab Sykes MD Neuropathy 01/28/2025 Refill [facility] [address] [place] [address] Zeinab Sykes MD Other intervertebral disc displacement, lumbar region 01/21/2025 Telephone [facility] [address] [place] [address] Scarlett Gibbs RN Rescheduled chronic pain group 01/15/2025 Refill [facility] [address] [place] [address] Janessa Jolley MD Seasonal allergic rhinitis, unspecified trigger from Last 3 Months Immunizations Immunization Administration [...] Info) Description 05/17/2025 1:00 PM EDT Nutrition [facility] [address] [place] [address] [place] [address] 05/28/2025 11:00 AM EST Office Visit [facility] [address] [place] [address] 06/05/2025 11:30 AM EST Office Visit [facility] [address] [place] [address] Zeinab Sykes MD [address] [place] [address] 10/03/2025 12:45 PM EDT Office Visit [facility] [address] [place] [address] Ruben Hoguearis [address] [place] [address] Health Maintenance Due Date Last Done Comments CT Colonography 1960 Dental X-Ray: Bitewings 1960 FIT DNA/Cologuard 1960 FIT 1960 FOBT 1960 Sigmoidoscopy 1960 Eye Exam 11/05/1969 Hepatitis A Vaccines (1 of 2 - Risk 2-dose series) 11/05/1978 Colonoscopy 2023 11/05/2020 Colorectal Cancer Screening 2023 COVID-19 Vaccine ( season) 2025 08/24/2022, 01/15/2022, [...] Additional history exists Tobacco Screening 04/10/2026 04/10/2025 Mammogram 04/12/2027 04/12/2025, 02/16, 02/13/2021, Additional history exists Pap Smear 06/01/2027 06/01/2024, 07/07/2020 Dental X-Ray: [...] Goal achieved 11/19/22. Patient graduated from [facility]. Procedures Procedure Name Priority Date/Time Associated Diagnosis Comments BI MAMMOGRAM SCREENING TOMOSYNTHESIS BILATERAL Routine 04/12/2025 10:58 AM EDT Screening mammogram for breast cancer HIV 1/2 ANTIGEN/ANTIBODY, FOURTH GENERATION W/RFL Routine [...] Edentulism Partially edentulous mandible, class I edentulism 28,29,30,31,25,24,20, 19,18 MANDIBULAR PARTIAL DENTURE - RESIN BASE (INCLUDING, RETENTIVE/CLASPING MATERIALS, RESTS, AND TEETH) Routine 04/04/2025 11:15 AM EDT Edentulism Partially edentulous mandible, class I edentulism Max COMPLETE DENTURE - MAXILLARY Routine 04/04/2025 11:15 AM EDT Edentulism Partially edentulous mandible, class I edentulism POCT GLYCATED HEMOGLOBIN, TOTAL Routine 04/02/2025 11:59 AM EDT Type 2 diabetes mellitus without complication, without long-term current use of insulin ([facility]) POCT GLUCOSE Routine 04/02/2025 11:57 AM EDT Type 2 diabetes mellitus without complication, without long-term current use of insulin ([facility]) WAX TRY IN Routine 03/27/2025 11:15 AM [...] Routine 01/06/2024 12:38 PM EDT Fatty liver HM COLONOSCOPY Routine 11/05/2020 11:36 AM EDT HPV MRNA E6/E7 Routine 07/07/2020 12:00 AM EST from Last 3 Months or Most Recently Relevant to Health Maintenance Results * BI Mammogram Screening Tomosynthesis Bilateral (04/12/2025 10:58 AM EDT) Anatomical Region Laterality Modality Breast Bilateral Mammography 04/12/2025 10:5 8 AM EDT Narrative 04/15/2025 5:36 PM EDT [facility] [address] [place] [address] Mammography Report Signed Patient: Rhonda Fernández MR# : [id number] : 1960 Acct:[id number] Age/Sex: 64 / F ADM Date: 04/12/25 Loc: HO.MAMMO Attending Dr: Zeinab Sykes MD Ordering Physician: Zeinab Sykes MD Results: 2Be nign Date of Service: 04/12/25 Follow Up: 1 Year From Orig ina Mammogram Procedure(s): MM tomosynthesis screening BI Accession Number(s): [id number] cc: Zeinab Sykes MD Reason For Exam: breast ca screen EXAMINATION: MM SCREENING DIGITAL BREAST TOMOSYNTHESIS, BILATERAL CLINICAL INFORMATION: Screening. Asymptomatic. COMPARISON: Mammography: Comparison is made with available priors TECHNIQUE: Digital breast mammography with tomosynthesis is performed in both the craniocaudal and mediolateral oblique views along with computer-aided detection (CAD). FINDINGS: There are scattered areas of fibroglandular density. Bilateral reduction mammoplasty. There are no significant masses, abnormal calcifications, or other abnormalities. MM/MM tomosynthesis screening BI IMPRESSION: No mammographic evidence of malignancy. ASSESSMENT: BI-RADS Category 2: Benign RECOMMENDATION: Routine annual mammography screening. 1 year F/U This examination should not preclude the clinical evaluation of a suspicious palpable abnormality. This patient's information was entered into a reminder system with a target due date for their next mammogram. Electronically signed by: Anamika Pollack DO 04/15/2025 05:33 PM EDT Dictated By: Anamika Pollack DO Signed By: <Electronically signed by Anamika Pollack DO in OV> 04/15/25 7631 DD/ 1058 TD/TT: 04/12/25 1113 Slot Floor Attendant: Procedure Note Donotuseinterpreter, [facility] - [facility] [address] [place] [address] Mammography Report Signed Patient: Karla Fernández# : [id number] : 1960Acct:[id number] Age/Sex: 64 / FADM Date: 04/12/25 Loc: HO.MAMMO Attending Dr: Zeinab Sykes MD Ordering Physician: Zeinab Sykes MDResults: 2Be nign Date of Service: 04/12/25Follow Up: 1 Year From Orig inal Mammogram Procedure(s): MM tomosynthesis screening BI Accession Number(s): [id number] cc: Zeinab Sykes MD Reason For Exam: breast ca screen EXAMINATION: MM SCREENING DIGITAL BREAST TOMOSYNTHESIS, BILATERAL CLINICAL INFORMATION: Screening. Asymptomatic. COMPARISON: Mammography: Comparison is made with available priors TECHNIQUE: Digital breast mammography with tomosynthesis is performed in both the craniocaudal and mediolateral oblique views along with computer-aided detection (CAD). FINDINGS: There are scattered areas of fibroglandular density. Bilateral reduction mammoplasty. There are no significant masses, abnormal calcifications, or other abnormalities. MM/MM tomosynthesis screening BI IMPRESSION: No mammographic evidence of malignancy. ASSESSMENT: BI-RADS Category 2: Benign RECOMMENDATION: Routine annual mammography screening. 1 year F/U This examination should not preclude the clinical evaluation of a suspicious palpable abnormality. This patient's information was entered into a reminder system with a target due date for their next mammogram. Electronically signed by: Anamika Pollack DO 04/15/2025 05:33 PM EDT Dictated By: Anamika Pollack DO Signed By: <Electronically signed by Anamika Pollack DO in OV> 04/15/25 1733 DD/ 1058 TD/TT: 04/12/25 1113 Slot Floor Attendant: us Zeinab Sykes MD IMG BI PROCEDURES Final Result * Syphilis Screen (04/10/2025 8:29 AM EDT) Syphilis Screen Nonreactive Nonreactive [facility] Blood 04/10/2025 8:29 AM EDT 04/10/2025 11:28 AM EDT Zeinab Sykes MD LAB BLOOD ORDERABLES Fin al Result Performing Organization Address City/[facility]/ZIP Co de Phone Number [facility] [address] [place] [phone] * Vitamin B12/Folate, Serum Panel (04/10/2025 8:29 AM EDT) Pathologist [facility] Vitamin B12 659 200 - 900 pg/mL [facility] Comment:NORMAL 200-900 PG/ML INDETERMINATE 160-199 PG/ML DEFICIENT < 160 PG/ML Folate 10.7 > or = 4.0 ng/mL [facility] Comment:Reference Values:> o r = 4.0 [...] Fin al Result Performing Organization Address City/[facility]/ZIP Co de Phone Number [facility] [address] [place] [phone] * TSH with Reflex to Free T4 (04/10/2025 8:29 AM EDT) Pathologist [facility] TSH reflex Free T4 2.11 0.32 - 4.0 uIU/mL [facility] Blood 04/10/2025 8:29 AM EDT 04/10/2025 11:28 AM EDT us Zeinab Sykes MD LAB BLOOD ORDERABLES Fin al Result Performing Organization Address [facility] Co de Phone Number [facility] [address] [place] [phone] [phone] * Lipid Panel with Reflex to Direct LDL (04/10/2025 8:29 AM EDT) Triglycerides 72 <150 mg/dL [facility] Comment:Desirable Triglyceri de: less than 150 mg/dLBorderline High Triglyceride 150-199 mg/dLHigh Triglyceride: 200-499 mg/dLVery High Triglyceride: greater than or equal to 5OO mg/dL Cholesterol 156 <200 mg/dL [facility] Comment:Desirable Cholestero l: less than 200 mg/dLBorderline High Cholesterol: 200-239 mg/dLHigh Cholesterol: greater than 239 mg/dL LDL Cholesterol Calculated 79 <100 mg/dL [facility] Comment:Desirable LDL: less than 100 mg/dLNear Optimal/Above Optimal LDL: 110- 129 mg/dLBorderline High LDL: 130-159 mg/dLHigh LDL: 160-189 mg/dLVery High LDL: greater than or equal to 190 mg/dL HDL Cholesterol 63 >40 mg/dL [facility] Comment:Desirable HDL: great er than 40 mg/dL Note: This HDL assay may give artificially low results in patients with liver disease. Blood 04/10/2025 8:29 AM EDT 04/10/2025 11:28 AM EDT us Zeinab Sykes MD LAB BLOOD ORDERABLES Fin al Result Performing Organization Address [facility]/ZIP Co de Phone Number [facility] [address] [place] [address] [phone] * Albumin, Random Urine W/Creatinine (04/10/2025 8:29 AM EDT) Creatinine, Urine 171.83 mg/dL [facility] Microalbumin Urine 11.0 mg/L [facility] Microalbum Creatinine Ratio Ur 6.4 <30 ug/mg cr [facility] Comment:Albumin/Creatinine R atio Reference Ranges: Normal: < 30 ug/mg creatinine Microalbuminuria: 30 - 300 ug/mg creatinineClinical Albuminuria: > 300 ug/mg creatinine Urine (Urine, Random) 04/10/2025 8:29 AM EDT 04/10/2025 11:43 AM EDT Zeinab Sykes MD LAB URINE ORDERABLES Fin al Result Performing Organization Address City/[facility]/ZIP Co de Phone Number [facility] [address] [place] [address] [phone] * HIV-1/2 Antigen and Antibodies, Fourth Generation, with Reflexes (04/10/2025 8:29 AM EDT) [facility] HIV AB/AG Nonreactive Nonreactive [facility] Comment:HIV-1 p24 Ag and/or HIV-1/HIV-2 Ab not detected.A test result that is nonreactive does not exclude thepossibility of exposure to or infection with HIV-1 and/orHIV-2. Nonreactive results in this assay for individualswith prior exposure to HIV-1 and/or HIV-2 may be due toantigen and antibody levels that are below the limit ofdetection of this assay.The Targovax HIV Ag/Ab Combo assay result andsupplemental assay results should be interpreted inconjunction with the patient's clinical presentation,history and other laboratory results. If the results areinconsistent with clinical evidence, additional testing issuggested to confirm the result. Blood Venous blood specimen / Unknown 04/10/2025 8:29 AM EDT 04/10/2025 11:28 AM EDT Zeinab Sykes MD LAB BLOOD ORDERABLES Fin al Result Performing Organization Address City/[facility]/ZIP Co de Phone Number [facility] [address] [place] [phone] [phone] * (ABNORMAL) Basic Metabolic Panel (04/10/2025 8:29 AM EDT) Sodium 145 135 - 145 mmol/L [facility] Potassium 3.7 3.3 - 5.1 mmol/L [facility] Chloride 108 96 - 108 mmol/L [facility] Carbon Dioxide 28 22 - 29 mmol/L [facility] Anion Gap 13 12 - 20 [facility] Urea Nitrogen (BUN) 16 9 - 16 mg/dL [facility] Creatinine, Serum 0.93 0.5 - 1.4 mg/dL [facility] Estimated Glomerular Filt Rate >60 [facility] Comment:Chronic Kidney Disea se: Estimated GFR < 60 mL/min/1.23l3Czlzea Kidney Disease: Estimated GFR < 15 mL/min/1.73m2 Glucose 123(H) 60 - 115 mg/dL [facility] Calcium 9.6 8.4 - 10.2 mg/dL [facility] Blood Venous blood specimen / Unknown 04/10/2025 8:29 AM EDT 04/10/2025 11:28 AM EDT us Zeinab Sykes MD LAB BLOOD ORDERABLES Fin al Result Performing Organization Address City/State/[facility] Co de Phone Number [facility] [address] [place] [phone] * (ABNORMAL) POCT Hgb A1c (04/02/2025 11:59 AM EDT) Pathologist [facility] Hemoglobin A1C 6.8(A) 4.0 - 5.7 % QC Media Lot # [id number] Lot# Expiration Date [id number] Blood 04/02/2025 11:5 9 AM EDT us Zeinab Sykes MD POINT OF CARE TE ST ENTER/EDIT ORDERABLES Edited Result - Final * POCT Glucose (04/02/2025 11:57 AM EDT) Glucose Blood, POC 139 60 - 200 mg/dL Comment:random QC Media Lot # [id number] Lot# Expiration Date [id number] Blood Capillary blood specimen / Unknown 04/02/2025 [...] - 02/26/2025 11:46 AM EDT .UTOX cup Lot#[id number] Exp. 04/23/26 Internal Pass Control Alma EDWARDS POINT OF CARE TEST ENTER/EDIT ORDERABLES Final Result * Pap Smear (06/01/2024 2:43 PM EST) 06/01/2024 2:43 PM EST 06/04/2024 9:25 AM EST Narrative [facility] - 06/20/2024 7:51 AM EST ----- ------- Name: Rhonda Fernández Age/Sex: 63/F : 1960 Unit#: [id number] Attend Dr: Aisha Mcclain CNM Re06/01/24 Status: DEP REF Location: HO.LNP Disch: ----- ------- SPEC : [id number] RECD: 06/04/24 STATUS: HODA GARRETT NUM: [id number] DARWIN: 06/01/24-1443 [facility] DR: Aisha Mcclain CNM ENTERED: [...] Received ThinPrep-Cervical Copies To: Zeinab Sykes MD [address] [address] Aisha Mcclain CNM [facility] [address] [place] [address] Drive [address] [place] [phone] ----- ------- Signed (signature on file) INDERJIT Bloom (ASCP) 06/20/24 0751 ----- ------- END OF REPORT Generic External Data Provider LAB CYTOLOGY ORDAndrea STAFFORD Final Result Performing Organization Address [facility] Co de Phone Number [facility] [address] [place] [phone] [phone] * Hepatitis Panel, General (01/06/2024 12:38 PM EDT) Pathologist [facility] Hepatitis A IgM Nonreactive Nonreactive [facility] Comment:IgM antibodies to GUERIN V not detected; does not exclude earlyacute or recovered HAV infection. ~Hepatitis B Surface Antibody REACTIVE Nonreactive [facility] Comment:REACTIVE: > 11.99 mI U/mL Hepatitis B Core Antibody Nonreactive Nonreactive [facility] Hepatitis C Antibody Nonreactive Nonreactive [facility] Comment:Antibodies to HCV no t detected; does not exclude early acuteHCV infection. Hepatitis B Surface Ag Negative Negative [facility] Blood 01/06/2024 12:3 8 PM EDT 01/06/2024 4:21 PM EDT Zeinab Sykes MD LAB BLOOD ORDERABLES Fin al Result Performing Organization Address [facility]/ZIP Co de Phone Number [facility] [address] [place] [address] [phone] * Hm Colonoscopy (11/05/2020 11:36 AM EDT) Historical Provider HEALTH MAINTENANCE Final Result * HPV mRNA E6/E7 (07/07/2020 12:00 AM EST) HPV nRNA E6/E7 Not Detected Not Detected [facility] Comment: This test was performed using the APTIMA HPV Assay ([employer] This assay detects E6/E7 viral messenger RNA (mRNA) from 14 high-risk HPV types (16,18,31,33,35,39,45,51,52,56,58,59,66,68). The analytical performance characteristics of this assay have been determined by [employer]. The modifications have not been cleared or approved by the FDA. This assay has been validated pursuant to the CLIA regulations and is used for clinical purposes. 07/07/2020 us Historical Provider LAB BLOOD ORDERABLES Sera hayes Result [facility] Anywhere [address] from Last 3 Months or Most Recently Relevant to Health Maintenance Insurance [facility] C3 [facility] SHE[employer] OPTIONS (HMO D-SNP) DENTAL - [facility] Care Teams Wall Worker Relationship Specialty Start Date End Date Zeinab Sykes MD [address] [place] [phone] PCP - General Internal Medicine 01/02/24 Tomeka Martins Head Bone GrinderBanana Handler 10/27/23 Tj Caring 11/06/24
--- OUTSIDE RECORDS SUMMARY | 2025-04-17 09:00 | XMS_ITS | Encounter Summary ---
Author Organization [employer] Address [address] [place] [address] 7t [place] [address] Care Team Providers Care Cold Meat Chef Name Role Phone Evelyn Ledesma Primary Care Provider Silvana Oralia Alamo MD Primary Care Provider [phone] Zeinab Sykes MD Primary Care Provider + Encounter Details Date Type Department Care Team ([facility] Contact Info) Description 08/20/2022 Orders Only [facility] MEDICINE [address] [place] [address] Karen Henderson FNP Social History Tobacco Use [...] [facility] Contact Info) Description 05/17/2025 1:00 PM EDT Nutrition [facility] DIABETES/NUTRITION [address] [place], [place] [phone] Juana Gusman [address] [place] [address] 05/28/2025 11:00 AM EST Office Visit [facility] MEDICINE [address] [facility] [place] [address] 06/05/2025 11:30 AM EST Office Visit [facility] MED[facility]INE [address] [facility] [place] [address] Zeinab Sykes MD [address] [facility] [place], [place] [phone] 10/03/2025 12:45 PM EDT Office Visit [facility] ADULT DENTAL [address] [facility] [place], [place] [phone] Ruben Hoguearis [address] [place] [address] documented as of this encounter Visit Diagnoses Not on filedocumented in this encounter Care Teams Cold Meat Chef Relationship Specialty Start Date End Date Evelyn Ledesma FNP PCP - General Family Medicine 03/15/22 04/25/23 Oralia Aguila MD C[facility] [place] [address] PCP - General Family Medicine 04/26/23 01/01/24 Zeinab Sykes MD [address]amm[place], [place] [phone] PCP - General Internal Medicine 01/02/24 Tomeka Martins Housing OfficerFacilities Project Manager 10/27/23 Tj Caring 11/06/24 documented as of this encounter
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
--- OUTSIDE RECORDS SUMMARY | 2025-04-17 09:00 | XMS_ITS | Encounter Summary ---
Author Organization [employer] Address [address] [facility] 7t [place] [address] Care Team Providers Care Review Engineer Name Role Phone Evelyn LedesmaP Primary Care Provider Oralia Dukes MD Primary Care Provider [phone] Zeinab Sykes MD Primary Care Provider + Reason for Visit * Reason Onset Date Comments Referral 02/03/2023 Renewal Encounter Details Date Type Department Care Team (Late st Contact Info) Description 02/03/2023 Telephone [facility] MEDICINE [address] [place] [address] Evelyn Ledesma FNP Referral (Renewal ) Social [...] Info) Description 05/17/2025 1:00 PM EDT Nutrition [facility] DIABETES/NUTRITION [address] [place] [address] Curt GusmaneMONICA [address] [place] [address] 05/28/2025 11:00 AM EST Office Visit [facility] MEDICINE [address] [place] [address] 06/05/2025 11:30 AM EST Office Visit [facility] MEDICINE [address] [place] [address] Zeinab Sykes MD [address] [place] [address] 10/03/2025 12:45 PM EDT Office Visit [facility] ADULT DENTAL [address] [place] [address] Mykel, Fabi [address] [place] [address] documented as of this encounter Goals Goal Patient Goal Type Associated Problems Recent Progress Patient-Stated? Author Patient will manage their medication General On track( 023 11:18 AM EDT) Citlali Ocampo, Anoop Note: Began medboxes. Goal achieved 11/19/22. Patient graduated from [facility]. documented as of this encounter Visit Diagnoses Not on filedocumented in this encounter Care Teams Review Engineer Relationship Specialty Start Date End Date Evelyn Ledesma FNP PCP - General Family Medicine 03/15/22 04/25/23 Oralia Aguila MD [address] [place] [address] PCP - General Family Medicine 04/26/23 01/01/24 Zeinab Sykes MD [address] [place] [address] PCP - General Internal Medicine 01/02/24 Tomeka Martins Fashion DirectorFelt Hanger 10/27/23 Tj Caring 11/06/24 documented as of this encounter
--- OUTSIDE RECORDS SUMMARY | 2025-04-17 09:00 | XMS_ITS | Encounter Summary ---
Author Organization [employer] Address [address] [facility] 7t [place] [address] Care Team Providers Care Client Service And Consulting Manager Name Role Phone Zeinab Sykes MD Primary Care Provider + Reason for Visit * Reason Onset Date Comments Nutrition referral 04/15/2025 Encounter Details Date Type Department Care Team ([facility] Contact Info) Description 04/15/2025 Telephone [facility] MEDICINE [address] [place], [place] [phone] Zeinab Sykes MD [address] [place] [address] Nutrition referral Social History Tobacco Use Types Packs/Day [...] encounter Miscellaneous Notes * Telephone Encounter - Dong Junior [place] - 04/15/2025 4:18 PM EDT Telephone call to patient to schedule a nutrition appointment. Pt agree to come in on 05/17/25 at 1pm. documented in this encounter Plan of Treatment Upcoming Encounters Date Type Department Care Team (Late st Contact Info) Description 05/17/2025 1:00 PM EDT Nutrition [facility] DIABETES/NUTRITION [address] [place] [address] [address] [place] [address] 05/28/2025 11:00 AM EST Office Visit [facility] MEDICINE [address] [place] [address] 06/05/2025 11:30 AM EST Office Visit [facility] MEDICINE [address] [place] [address] Zeinab Sykes MD [address] [place] [address] 10/03/2025 12:45 PM EDT Office Visit [facility] ADULT DENTAL [address] [place] [address] [place] [address] Fabi Hogue [address] [place] [address] documented as of this encounter Goals Goal [...] documented as of this encounter Care Teams Client Service And Consulting Manager Relationship Specialty Start Date End Date Zeinab Sykes MD [address] [place] [address] PCP - General Internal Medicine 01/02/24 Tomeka Martins Farm Equipment AssemblerSnowboard Instructor 10/27/23 Tj Caring 11/06/24 documented as of this encounter
--- OUTSIDE RECORDS SUMMARY | 2025-04-17 09:00 | XMS_ITS | Encounter Summary ---
Author Organization [employer] Address [address] [facility] 7t [place] [address] Care Team Providers Care Pullboat Engineer Name Role Phone Evelyn Ledesma Primary Care Provider Oralia Dukes MD Primary Care Provider [phone] Zeinab Sykes MD Primary Care Provider + Reason for Visit * Reason Onset Date Comments Prior Authorization 12/28/2022 Encounter Details Date Type Department Care Team (Late st Contact Info) Description 12/28/2022 Telephone [facility] MEDICINE [address] [place] [address] Evelyn Ledesma FNP Prior Authorization Social History [...] AM EDT T/C placed to pt via TV Interactive Systemser Zeinab #[id number]. Advised of message from pcp re: lab [...] all other NSAIDS. Do you have a substation wireman yet? If not, your PCP would like [...] AM EDT TC luis m Emery from [employer] requesting XL pull ups and disposable under pads . States faxed request couple days ago and have not gotten a response . Informs paper work 12/29/22. Please call to clarify at phone # [phone] . documented in this encounter Plan of Treatment Upcoming Encounters Date Type Department Care Team (Late st Contact Info) Description 05/17/2025 1:00 PM EDT Nutrition [facility] DIABETES/NUTRITION [address] [place], [place] [phone] Juana Gusman, MONICA [address] [place], [place] [phone] 05/28/2025 11:00 AM EST Office Visit [facility] MEDICINE [address] [place] [address] 06/05/2025 11:30 AM EST Office Visit [facility] MEDICINE [address] [place] [address] Zeinab Sykes MD [address] [place] [address] 10/03/2025 12:45 PM EDT Office Visit [facility] ADULT DENTAL [address] [place] [address] Mykel, Fabi [address] [place] [address] documented as of this encounter Goals Goal Patient Goal Type Associated Problems Recent Progress Patient-Stated? Author Patient will manage their medication General On track( 023 11:18 AM EDT) Citlali Ocampo, Anoop Note: Began medboxes. Goal achieved 11/19/22. Patient graduated from [facility]. documented as of this encounter Visit Diagnoses Not on filedocumented in this encounter Care Teams Pullboat Engineer Relationship Specialty Start Date End Date Evelyn Ledesma FNP PCP - General Family Medicine 03/15/22 04/25/23 Oralia Aguila MD [address] [place] [address] PCP - General Family Medicine 04/26/23 01/01/24 Zeinab Sykes MD [address] [place] [address] PCP - General Internal Medicine 01/02/24 Tomeka Martins Teacher DramaticsHot Man 10/27/23 Tj Caring 11/06/24 documented as of this encounter
--- OUTSIDE RECORDS SUMMARY | 2025-04-17 09:00 | XMS_ITS | Encounter Summary ---
Author Organization [employer] Address [address] [facility] 7t [place] [address] Care Team Providers Care Cupola Man Name Role Phone Evelyn eLdesmaP Primary Care Provider Oralia Dukes MD Primary Care Provider [phone] Zeinab ySkes MD Primary Care Provider + Reason for Visit * Reason Onset Date Comments medical clearance 02/11/2023 Encounter Details Date Type Department Care Team (Late st Contact Info) Description 02/11/2023 Telephone [facility] CHC ADULT DENTAL [address] [place] [address] Asad Shore, DDS [address] [place] [address] medical clearance Social History Tobacco Use Types [...] Info) Description 05/17/2025 1:00 PM EDT Nutrition [facility] DIABETES/NUTRITION [address] [place] [address] [place] [address] 05/28/2025 11:00 AM EST Office Visit [facility] MEDICINE 230 [place] [address] 06/05/2025 11:30 AM EST Office Visit [facility] MEDICINE [address] [place] [address] Zeinab Sykes MD 230 [place] [address] 10/03/2025 12:45 PM EDT Office Visit [facility] ADULT DENTAL [address] [place] [address] Mykel, Fabi [address] [place] [address] documented as of this encounter Goals Goal Patient Goal Type Associated Problems Recent Progress Patient-Stated? Author Patient will manage their medication General On track( 023 11:18 AM EDT) Citlali Ocampo, PharmD Note: Began medboxes. Goal achieved 11/19/22. Patient graduated from [facility]. documented as of this encounter Visit Diagnoses Not on filedocumented in this encounter Care Teams Cupola Man Relationship Specialty Start Date End Date Evelyn Ledesma FNP PCP - General Family Medicine 03/15/22 04/25/23 Oralia Aguila MD [address] [place] [address] PCP - General Family Medicine 04/26/23 01/01/24 eZinab Sykes MD [address] [place] [address] PCP - General Internal Medicine 01/02/24 Tomeka Martins CovererClinical Interviewer 10/27/23 [employer] Caring 11/06/24 documented as of this encounter
--- OUTSIDE RECORDS SUMMARY | 2025-04-17 09:00 | XMS_ITS | Encounter Summary ---
Author Organization [employer] Address [address] [facility] 7t [place] [address] Care Team Providers Care Applied Psychology Chair Name Role Phone Evelyn LedesmaP Primary Care Provider Oralia Dukes MD Primary Care Provider [phone] Zeinab Sykes MD Primary Care Provider + Reason for Visit * Reason Onset Date Comments case from lab 11/04/2022 Encounter Details Date Type Department Care Team (Late st Contact Info) Description 11/04/2022 Telephone [facility] ADULT DENTAL [address] [place] [address] Asad Shore, DDS [address] [place] [address] case from lab Social History Tobacco Use [...] Info) Description 05/17/2025 1:00 PM EDT Nutrition [facility] DIABETES/NUTRITION [address] [place] [address] [place] [address] 05/28/2025 11:00 AM EST Office Visit [facility] MEDICINE [address] [place] [address] 06/05/2025 11:30 AM EST Office Visit [facility] MEDICINE [address] [place] [address] Zeinab Sykes MD 230 [place] [address] 10/03/2025 12:45 PM EDT Office Visit [facility] ADULT DENTAL [address] [place] [address] Ruben Hoguearis [address] [place] [address] documented as of this encounter Visit Diagnoses Not on filedocumented in this encounter Care Teams Applied Psychology Chair Relationship Specialty Start Date End Date Evelyn Ledesma FNP PCP - General Family Medicine 03/15/22 04/25/23 Oralia Aguila MD [address] [place] [address] PCP - General Family Medicine 04/26/23 01/01/24 Zeinab Sykes MD [address] [place] [address] PCP - General Internal Medicine 01/02/24 Tomeka Martins Gas ProverOutbound Supervisor 10/27/23 [employer] Caring 11/06/24 documented as of this encounter
--- OUTSIDE RECORDS SUMMARY | 2025-04-17 09:00 | XMS_ITS | Encounter Summary ---
Author Organization [employer] Address [address] [place] [address] 7 [place] [address] Care Team Providers Care Electrical Superintendent Name Role Phone Oralia Aguila MD Primary Care Provider [phone] Zeinab Sykes MD Primary Care Provider + Reason for Visit * Reason Comments Med Refill Encounter Details Date Type Department Care Team (Late Contact Info) Description 08/09/2023 Refill [facility] MEDICINE [address] [place], [place] [phone] Oralia Aguila MD 230 [place], [place] [phone] Other intervertebral disc displacement, lumbar region Social [...] Department Care Team (Late Contact Info) Description 05/17/2025 1:00 PM EDT Nutrition [facility] DIABETES/NUTRITION 230 [place] [address] 230 [place] [address] 05/28/2025 11:00 AM EST Office Visit [facility] MEDICINE [address] [place] [address] 06/05/2025 11:30 AM EST Office Visit [facility]INE [address] [place] [address] Zeinab Sykes MD [address] [place] [address] 10/03/2025 12:45 PM EDT Office Visit [facility] ADULT DENTAL 230 [place] [address] Mykel, Fabi 230 [place] [address] documented as of this encounter Goals Goal Patient Goal Type Associated Problems Recent Progress Patient-Stated? Author Patient will manage their medication General On track( 023 11:18 AM EDT) Citlali Ocampo, Anoop Note: Began medboxes. Goal achieved 11/19/22. Patient graduated from [facility]. documented as of this encounter Visit Diagnoses Diagnosis Other intervertebral disc displacement, lumbar region documented in this encounter Care Teams Electrical Superintendent Relationship Specialty Start Date End Date Oralia Aguila MD [address] [place] [address] PCP - General Family Medicine 04/26/23 01/01/24 Zeinab Sykes MD [address] [place] [address] PCP - General Internal Medicine 01/02/24 Tomeka Martins Lump Room SupervisorHealth Physics Technician 10/27/23 [employer] 11/06/24 documented as of this encounter
--- OUTSIDE RECORDS SUMMARY | 2025-04-17 09:00 | XMS_ITS | Encounter Summary ---
Author Organization [employer] Address [address] 7t [place] [address] Care Team Providers Care Vegetable Cutter Name Role Phone Oralia Aguila MD Primary Care Provider [phone] Zeinab Sykes MD Primary Care Provider + Reason for Visit * Reason Comments Med Refill Encounter Details Date Type Department Care Team (Late Contact Info) Description 07/06/2023 Refill [facility] WALK-IN CENTER [address] [place] [address] [phone] Bryn [place] MD 230 [place], [place] [phone] Social History Tobacco Use Types Packs/Day Years [...] Info) Description 05/17/2025 1:00 PM EDT Nutrition [facility] DIABETES/NUTRITION 230 [place] [address] 230 [place] [address] 05/28/2025 11:00 AM EST Office Visit [facility] MEDICINE [address] [place] [address] 06/05/2025 11:30 AM EST Office Visit [facility] MEDICINE [address] [place] [address] Zeinab Sykes MD 230 [place] [address] 10/03/2025 12:45 PM EDT Office Visit [facility] ADULT DENTAL 230 [place] [address] Mykel, Fabi 230 [place] [address] documented as of this encounter Goals Goal Patient Goal Type Associated Problems Recent Progress Patient-Stated? Author Patient will manage their medication General On track( 023 11:18 AM EDT) Citlali Ocampo PharmD Note: Began medboxes. Goal achieved 11/19/22. Patient graduated from [facility]. documented as of this encounter Visit Diagnoses Not on filedocumented in this encounter Care Teams Vegetable Cutter Relationship Specialty Start Date End Date Oralia Aguila MD [address] [place] [address] PCP - General Family Medicine 04/26/23 01/01/24 Zeinab Sykes MD [address] [place] [address] PCP - General Internal Medicine 01/02/24 Tomeka Martins Supervisor Mirror FabricationWell Tester 10/27/23 [employer] 11/06/24 documented as of this encounter
--- OUTSIDE RECORDS SUMMARY | 2025-04-17 09:00 | XMS_ITS | Encounter Summary ---
Author Organization [employer] Address [address] [facility] 7t [place] [address] Care Team Providers Care Transport Corps Officer Name Role Phone Zeinab Sykes MD Primary Care Provider + Reason for Visit * Reason Comments Med Refill Encounter Details Date Type Department Care Team ([facility] st Contact Info) Description 05/04/2024 Refill [facility] MEDICINE 230 [place], [place] [phone] Zeinab Sykes MD 230 [place] [address] Other intervertebral disc displacement, lumbar region Social [...] Info) Description 05/17/2025 1:00 PM EDT Nutrition [facility] DIABETES/NUTRITION [address] [place] [address] 230 [place] [address] 05/28/2025 11:00 AM EST Office Visit [facility] MEDICINE [address] [place] [address] 06/05/2025 11:30 AM EST Office Visit [facility] MEDICINE [address] [place] [address] Zeinab Sykes MD 230 [place] [address] 10/03/2025 12:45 PM EDT Office Visit [facility] ADULT DENTAL 230 [place] [address] Fabi Hogue 230 [place] [address] documented as of this encounter Goals Goal Patient Goal Type Associated Problems Recent Progress Patient-Stated? Author Patient will manage their medication General On track( 023 11:18 AM EDT) No Citlali Armando, Anoop Note: Began medboxes. Goal achieved 11/19/22. Patient graduated from [employer]. documented as of this encounter Visit Diagnoses Diagnosis Other intervertebral disc displacement, lumbar region documented in this encounter Additional Health Concerns Assessment Noted Time PHQ-9 Depression Total Score: 18 024 1:46 PM EDT documented as of this encounter Care Teams Transport Corps Officer Relationship Specialty Start Date End Date Zeinab Sykes MD 230 [place] [address] PCP - General Internal Medicine 01/02/24 Tomeka Martins Moss GathererHigh Pressure Firer 10/27/23 [employer] 11/06/24 documented as of this encounter
--- OUTSIDE RECORDS SUMMARY | 2025-04-17 09:00 | XMS_ITS | Encounter Summary ---
Author Organization [employer] Address 75 [facility] 7t [place] [address] Care Team Providers Care Wharf Helper Name Role Phone Zeinab Sykes MD Primary Care Provider + Reason for Visit * Reason Onset Date Comments Med Refill 07/16/2024 Encounter Details Date Type Department Care Team ([facility] Contact Info) Description 07/16/2024 Telephone [facility] MEDICINE 230 [place], [place] [phone] Zeinab Sykes MD 230 [place] [address] Med Refill Social History Tobacco Use Types [...] 10 MG capsule To be sent to: [facility] pharmacy documented in this encounter Plan of Treatment Upcoming Encounters Date Type Department Care Team (Late st Contact Info) Description 05/17/2025 1:00 PM EDT Nutrition [facility] DIABETES/NUTRITION [address] [place] [address] 230 [place] [address] 05/28/2025 11:00 AM EST Office Visit [facility] MEDICINE [address] [place] [address] 06/05/2025 11:30 AM EST Office Visit [facility] MEDICINE [address] [place] [address] [phone] Zeinab Sykes MD 230 [place] [address] 10/03/2025 12:45 PM EDT Office Visit [facility] ADULT DENTAL 230 [place], [place] [phone] Fabi Hogue 230 [place] [address] documented as of this encounter Goals Goal Patient Goal Type Associated Problems Recent Progress Patient-Stated? Author Patient will manage their medication General On track( 023 11:18 AM EDT) Citlali Ocampo PharmD Note: Began medboxes. Goal achieved 11/19/22. Patient graduated from [facility]. documented as of this encounter Visit Diagnoses Not on filedocumented in this encounter Additional Health Concerns Assessment Noted Time PHQ-9 Depression Total Score: 18 024 1:46 PM EDT documented as of this encounter Care Teams Wharf Helper Relationship Specialty Start Date End Date Zeinab Sykes MD 230 [place] [address] PCP - General Internal Medicine 01/02/24 Tomeka Martins Progress ClerkAsbestos Hazard Abatement Worker 10/27/23 [employer] 11/06/24 documented as of this encounter
--- OUTSIDE RECORDS SUMMARY | 2025-04-17 09:00 | XMS_ITS | Clinical Summary ---
Author Organization [facility] Address [address] [place] [address] Care Team Providers Care Manager Pricing Name Role Phone Meryl Montes Primary Care Provider Surgical History Surgery Date Site/Laterality Comments BREAST REDUCTION PROCEDURE: TX BREAST REDUCTION BACK SURGERY PROCEDURE: HISTORICAL BACK [...] Breast Cancer Screening 1960 Colorectal Cancer Screening: Colonoscopy 1960 DTaP,Tdap,and Td Vaccines (1 - Tdap) 11/05/1978 Cervical Cancer Screening: P ap Smear 11/05/1980 Pneumococcal Vaccine: 50+ Ye ars (1 of 1 - PCV) 11/05/2009 Zoster Vaccines (1 of 2) 11/05/2009 Hepatitis C Screening 06/27/2022 Osteoporosis Screening (Bone [...] age to complete this topic Care Teams Manager Pricing Relationship Specialty Start Date End Date Meryl Montes [address] [place] [phone] PCP - General 05/07/22
--- OUTSIDE RECORDS SUMMARY | 2025-04-17 09:00 | XMS_ITS | Encounter Summary ---
Author Organization [employer] Address [address] [facility] 7t [place] [address] Care Team Providers Care Shipping Lead Name Role Phone Zeinab Sykes MD Primary Care Provider + Reason for Visit * Reason Comments Med Refill Encounter Details Date Type Department Care Team ([facility] st Contact Info) Description 04/17/[address] [facility] WALK-IN CENTER [address] [place] [address] [phone] Zeinab Sykes MD 230 [place] [address] Social History Tobacco Use Types Packs/Day Years [...] Info) Description 05/17/2025 1:00 PM EDT Nutrition [facility] DIABETES/NUTRITION 230 [place] [address] 230 [place] [address] 05/28/2025 11:00 AM EST Office Visit [facility] MEDICINE [address] [place] [address] 06/05/2025 11:30 AM EST Office Visit [facility] MEDICINE [address] [place] [address] Zeinab Sykes MD 230 [place] [address] 10/03/2025 12:45 PM EDT Office Visit [facility] ADULT DENTAL 230 [place] [address] Fabi Hogue 230 [place] [address] documented as of this encounter Goals Goal [...] documented as of this encounter Care Teams Shipping Lead Relationship Specialty Start Date End Date Zeinab Sykes MD [address] [place] [address] PCP - General Internal Medicine 01/02/24 Tomeka Martins Charge PosterDocumentation Nurse 10/27/23 [employer] 11/06/24 documented as of this encounter
--- OUTSIDE RECORDS SUMMARY | 2025-04-17 09:00 | XMS_ITS | Encounter Summary ---
Author Organization [employer] Address [address] [place] [address] 7t [place] [address] Care Team Providers Care Sales Development Director Name Role Phone Oralia Aguila MD Primary Care Provider [phone] Zeinab Sykes MD Primary Care Provider + Reason for Visit * Reason Onset Date Comments antibiotics pre med 07/19/2023 Encounter Details Date Type Department Care Team ([facility] st Contact Info) Description 07/19/2023 Telephone [facility] ADULT DENTAL [address] [place] [address] Stefany Anton, DDS [address] [place] [address] antibiotics pre med Social History Tobacco Use [...] Info) Description 05/17/2025 1:00 PM EDT Nutrition [facility] DIABETES/NUTRITION 230 [place] [address] [place] [address] 05/28/2025 11:00 AM EST Office Visit [facility] MEDICINE [address] [place] [address] 06/05/2025 11:30 AM EST Office Visit [facility] MEDICINE [address] [place] [address] Zeinab Sykes MD [address] [place] [address] 10/03/2025 12:45 PM EDT Office Visit [facility] ADULT DENTAL [address] [place] [address] Mykel, Fabi [address] [place] [address] documented as of this encounter Goals Goal Patient Goal Type Associated Problems Recent Progress Patient-Stated? Author Patient will manage their medication General On track( 023 11:18 AM EDT) No Citlali Armando, Anoop Note: Began medboxes. Goal achieved 11/19/22. Patient graduated from [facility]. documented as of this encounter Visit Diagnoses Not on filedocumented in this encounter Care Teams Sales Development Director Relationship Specialty Start Date End Date Oralia Aguila MD [address] [place] [address] PCP - General Family Medicine 04/26/23 01/01/24 Zeinab Sykes MD [address] [place] [address] PCP - General Internal Medicine 01/02/24 Tomeka Martins Parlor ChaperoneDigital Service Engineer 10/27/23 [employer] 11/06/24 documented as of this encounter
--- OUTSIDE RECORDS SUMMARY | 2025-04-17 09:00 | XMS_ITS | Encounter Summary ---
Author Organization [employer] Address [address] [place] [address] 7t [place] [address] Care Team Providers Care Plaster Model And Mold Maker Name Role Phone Evelyn Ledesma Primary Care Provider Silvana Oralia Alamo MD Primary Care Provider [phone] Zeinab Sykes MD Primary Care Provider + Encounter Details Date Type Department Care Team ([facility] Contact Info) Description 10/22/2022 Orders Only [facility] MEDICINE 230 [place] [address] Evelyn Ledesma FNP Social History Tobacco Use [...] Upcoming Encounters Date Type Department Care Team ([facility] Contact Info) Description 05/17/2025 1:00 PM EDT Nutrition [facility] DIABETES/NUTRITION 230 [place] [address] [place] [address] 05/28/2025 11:00 AM EST Office Visit [facility] MEDICINE 230 [facility] [place] [address] 06/05/2025 11:30 AM EST Office Visit [facility] MEDICINE 230 [facility] [place] [address] Zeinab Sykes MD 230 [facility] [place] [address] 10/03/2025 12:45 PM EDT Office Visit [facility] ADULT DENTAL 230 [facility] [place], [place] [phone] Ruben Hoguearis 230 [facility] [place] [address] documented as of this encounter Visit Diagnoses Not on filedocumented in this encounter Care Teams Plaster Model And Mold Maker Relationship Specialty Start Date End Date Evelyn Ledesma FNP PCP - General Family Medicine 03/15/22 04/25/23 Oralia Aguila MD C[facility] [place] [address] PCP - General Family Medicine 04/26/23 01/01/24 Zeinab Sykes MD [facility] [place] [address] PCP - General Internal Medicine 01/02/24 Tomeka Martins Environmental Web CrawlerTorch Heater 10/27/23 [employer] 11/06/24 documented as of this encounter
--- OUTSIDE RECORDS SUMMARY | 2025-04-17 09:01 | XMS_ITS | Encounter Summary ---
Author Organization [employer] Address [address] [place] [address] 7 [place] [address] Care Team Providers Care Model Making Supervisor Name Role Phone Evelyn Ledesma Raegan JUNGP Primary Care Provider Oralia Dukes MD Primary Care Provider [phone] Zeinab Sykes MD Primary Care Provider + Encounter Details Date Type Department Care Team (Latest Contact Info) Description 12/21/2018 Abstract [facility] CONVERSIONS Dental, Provider, DDS Social History Tobacco [...] 05/17/2025 1:00 PM EDT Nutrition [facility] DIABETES/NUTRITION [address] [place] [address] [address] [place] [address] 05/28/2025 11:00 AM EST Office Visit [facility] MEDICINE [address] [place] [address] [phone] 06/05/2025 11:30 AM EST Office Visit [facility] MEDICINE [address] [place] [address] Zeinab Sykes MD [address] [place] [address] [phone] 10/03/2025 12:45 PM EDT Office Visit [facility] ADULT DENTAL 230 [place], [place] [phone] Fabi Hogue 230 [place] [address] documented as of this encounter Visit Diagnoses Not on filedocumented in this encounter Care Teams Model Making Supervisor Relationship Specialty Start Date End Date Evelyn Ledesma FNP PCP - General Family Medicine 03/15/22 04/25/23 Oralia Aguila MD 230 [place], [place] [phone] PCP - General Family Medicine 04/26/23 01/01/24 Zeinab Sykes MD 230 [place], [place] [phone] PCP - General Internal Medicine 01/02/24 Tomeka Martins Family CounselorGraphics Intern 10/27/23 [employer] 11/06/24 documented as of this encounter
--- OUTSIDE RECORDS SUMMARY | 2025-04-17 09:01 | XMS_ITS | Encounter Summary ---
Author Organization [employer] Address [address] [place] [address] 7t [place] [address] Care Team Providers Care Cloth Coverer Name Role Phone Oralia Aguila MD Primary Care Provider Zeinab Sykes MD Primary Care Provider + Reason for Visit * Reason Onset Date Comments Med Refill 05/05/2023 Encounter Details Date Type Department Care Team (Late st Contact Info) Description 05/05/2023 Refill [facility] MEDICINE 230 [place] [address] Oralia Aguila MD 230 [place] [address] Other intervertebral disc displacement, lumbar region Social [...] 5- 325 MG tablet to besent to [facility] - [place], [place] - [facility] documented in this encounter Plan of Treatment Upcoming Encounters Date Type Department Care Team (Late st Contact Info) Description 05/17/2025 1:00 PM EDT Nutrition [facility] DIABETES/NUTRITION 230 [place] [address] [place] [address] 05/28/2025 11:00 AM EST Office Visit [facility] MEDICINE 230 [place] [address] 06/05/2025 11:30 AM EST Office Visit [facility] MEDICINE [address] [place] [address] Zeinab Sykes MD 230 [place] [address] 10/03/2025 12:45 PM EDT Office Visit [facility] ADULT DENTAL 230 [place] [address] Mykel, Fabi [address] [place] [address] documented as of this encounter Goals Goal Patient Goal Type Associated Problems Recent Progress Patient-Stated? Author Patient will manage their medication General On track( 023 11:18 AM EDT) Citlali Ocampo PharmD Note: Began medboxes. Goal achieved 11/19/22. Patient graduated from [facility]. documented as of this encounter Visit Diagnoses Diagnosis Other intervertebral disc displacement, lumbar region documented in this encounter Care Teams Cloth Coverer Relationship Specialty Start Date End Date [place] [address] PCP - General Family Medicine 04/26/23 01/01/24 Zeinab Sykes MD [address] [place] [address] PCP - General Internal Medicine 01/02/24 Tomeka aMrtins Family Services SpecialistProfessor Of Forestry 10/27/23 [employer] 11/06/24 documented as of this encounter
--- OUTSIDE RECORDS SUMMARY | 2025-04-17 09:01 | XMS_ITS | Encounter Summary ---
Author Organization [employer] Address [address] [place] [address] 7t [place] [address] Care Team Providers Care Rn Internal Medicine Name Role Phone Oralia Aguila MD Primary Care Provider [phone] Zeinab Sykes MD Primary Care Provider + Reason for Visit * Reason Comments Med Refill Encounter Details Date Type Department Care Team (Late Contact Info) Description 09/21/2023 Refill [facility] MEDICINE 230 [place], [place] [phone] Oralia Aguila MD 230 [place], [place] [phone] Neuropathy Social History Tobacco Use Types Packs/Day [...] Info) Description 05/17/2025 1:00 PM EDT Nutrition [facility] DIABETES/NUTRITION 230 [place] [address] [place], [place] [phone] 05/28/2025 11:00 AM EST Office Visit [facility] MEDICINE 230 [place] [address] 06/05/2025 11:30 AM EST Office Visit [facility] MEDICINE [address] [place] [address] Zeinab Sykes MD 230 [place] [address] 10/03/2025 12:45 PM EDT Office Visit [facility] ADULT DENTAL 230 [place] [address] Mykel, Fabi 230 [place] [address] documented as of this encounter Goals Goal Patient Goal Type Associated Problems Recent Progress Patient-Stated? Author Patient will manage their medication General On track( 023 11:18 AM EDT) Citlali Ocampo PharmD Note: Began medboxes. Goal achieved 11/19/22. Patient graduated from [facility]. documented as of this encounter Visit Diagnoses Diagnosis Neuropathy Mononeuritis of unspecified site documented in this encounter Care Teams Rn Internal Medicine Relationship Specialty Start Date End Date Oralia Aguila MD [address] [place] [address] PCP - General Family Medicine 04/26/23 01/01/24 Zeinab Sykes MD [address] [place] [address] PCP - General Internal Medicine 01/02/24 Tomeka Martins Electrician SecondParty Plan Sales Unit Advisor 10/27/23 [employer] 11/06/24 documented as of this encounter
--- OUTSIDE RECORDS SUMMARY | 2025-04-17 09:01 | XMS_ITS | Encounter Summary ---
Author Organization [employer] Address [address] [place] [address] 7 [place] [address] Care Team Providers Care Data Coder Operator Name Role Phone Evelyn Ledesma Raegan JUNGP Primary Care Provider Oralia Dukes MD Primary Care Provider [phone] Zeinab Sykes MD Primary Care Provider + Encounter Details Date Type Department Care Team (Latest Contact Info) Description 10/30/2020 Abstract [facility] CONVERSIONS Dental, Provider, DDS Social [...] 05/17/2025 1:00 PM EDT Nutrition [facility] DIABETES/NUTRITION [address] [place] [address] [place] [address] 05/28/2025 11:00 AM EST Office Visit [facility] MEDICINE [address] [place] [address] [phone] 06/05/2025 11:30 AM EST Office Visit [facility] MEDICINE [address] [place] [address] Zeinab Sykes MD 230 [place] [address] 10/03/2025 12:45 PM EDT Office Visit [facility] ADULT DENTAL 230 [place], [place] [phone] Fabi Hogue 230 [place] [address] documented as of this encounter Visit Diagnoses Not on filedocumented in this encounter Care Teams Data Coder Operator Relationship Specialty Start Date End Date Evelyn Ledesma FNP PCP - General Family Medicine 03/15/22 04/25/23 Oralia Aguila MD 230 [place], [place] [phone] PCP - General Family Medicine 04/26/23 01/01/24 Zeinab Sykes MD 230 [place], [place] [phone] PCP - General Internal Medicine 01/02/24 Tomeka Martins Supervisor MetalizingRigger Helper 10/27/23 [employer] 11/06/24 documented as of this encounter
== END 2025-04-17 08:47 | disposition home or self-care (01) ==
LOC: HO.HWS 08:28
PROVIDERS: PCP Internal Medicine; Visit Provider Obstetrics & Gynecology
DX: R15.9 Full incontinence of feces (principal)
CPT/HCPCS: 99213

== ENCOUNTER → 2025-04-17 08:28 | Outpatient (BNVA) | payer OTHER, SELFPAY | PROVIDERS: PCP Internal Medicine; Visit Provider Obstetrics & Gynecology | DX: N81.6 Rectocele (principal); R15.9 Full incontinence of feces | CPT/HCPCS: 99212 ==

== ENCOUNTER 2025-04-24 08:54 | Day surgery (SDC) | payer OTHER, SELFPAY ==
--- OUTSIDE RECORDS SUMMARY | 2025-04-04 11:15 | XMS_ITS | Encounter Summary ---
Author Organization [employer] Address [address] [place] [address] 7 [place] [address] Care Team Providers Care Meat Packager Name Role Phone Zeinab Sykes MD Primary Care Provider + Reason for Visit * Reason Comments Dentures Encounter Details Date Type Department Care Team ([facility] st Contact Info) Description 04/04/2025 11:15 AM EDT Office Visit [facility] ADULT DENTAL [address] [place] [address] Gay Thompson, DDS [address] [place] [address] Edentulism (Primary Dx); Partially edentulous mandible, class I edentulism Social History Tobacco Use Types Packs/Day Years [...] before you got money to buy more: Often true 04/02/2025 Within the past 12 months,th e food you bought just didn't last and you didn't have enough money to get more: Often true Transportation Answer Date Recorded In the past [...] Date Recorded Patient Health Questionnaire-2 Score 6 04/02/2025 Internet Access Answer Date Recorded Internet Access Q1 Yes 04/02/2025 Internet Access Q2 I cannot afford it 04/02/2025 Comments No Sex and Gender Information Value Date Recorded Sex Assigned at Female 05/17/2022 10:32 AM EDT Legal Sex Female 10:32 AM EDT Gender Identity Female 05/17/2022 10:32 AM EDT Sexual Orientation Straight 05/17/2022 10 :32 AM EDT documented as of this encounter Progress Notes * Gay Thompson DDS - 04/04/2025 11:15 AM EDT Patient ID: Rhonda Mclaughlin is a 64 y.o. female. Time Out: Timeout Date: 04/04/25, Timeout Time: 1128 (Time out for denture delivery) Location: [facility] Tooth: Maxilla and Mandible Procedure: Dentures delivery Verified the above with patient, housekeeper/laundry assistant, and provider. Confirmed via patient's chart, intraorally and by radiographs. Nnp: not applicable Chief Complaint Patient presents with Dentures Medical Hx: Vitals: There were no vitals taken for this visit. Medications, Med Hx reviewed with patient and updated in chart. Consent Obtained: The risks, benefits, indications, potential complications, and alternatives were explained to the patient and informed consent was obtained with good understanding. Treatment Provided: Dental procedures in this visit D5110 - COMPLETE DENTURE - MAXILLARY Max (Completed) Service provider: aGy Thompson DDS Billing provider: Gay Thompson DDS D5212 - MANDIBULAR PARTIAL DENTURE - RESIN BASE (INCLUDING, RETENTIVE/CLASPING MATERIALS, RESTS, AND TEETH) 28,29,30,31,25,24,20,19,18 (Completed) Service provider: Gay Thompson DDS Billing provider: Gay Thompson DDS D9450 - CASE PRESENTATION, DETAILED AND EXTENSIVE TREATMENT PLANNING (Completed) Service provider: Gay Thompson DDS Billing provider: Gay Thompson DDS Tried in denture(s) -Evaluated for comfort, fit, phonetics, and stability (f, v, s, th sounds; swallow, yawn, etc) -Evaluated for satisfactory esthetics. -Occlusion verified; adjustments made as necessary. Patient has received information sheet for denture care and expectations. Pt was provided with denture case and denture brush. NV: 6 mo periodic exam Wine And Spirits Clerk: Jayne Cabrera Dentist: Gay Thompson DDS documented in this encounter Plan of Treatment Upcoming Encounters Date Type Department Care Team (Late st Contact Info) Description 04/10/2025 8:00 AM EDT Office Visit [facility] ADULT DENTAL [address] [place] [address] Gay Thompson DDS [address] [place] [address] 05/28/2025 11:00 AM EST Office Visit [facility] MEDICINE [address] [place] [address] 06/05/2025 11:30 AM EST Office Visit [facility] MEDICINE [address] [place] [address] Zeinab Sykes MD [address] [place] [address] 10/03/2025 12:45 PM EDT Office Visit [facility] ADULT DENTAL [address] [place] [address] Fabi Hogue [address] [place] [address] documented as of this encounter Goals Goal Patient Goal Type Associated Problems Recent Progress Patient-Stated? Author Patient will manage their medication General On track( 023 11:18 AM EDT) Citlali Ocampo PharmD Note: Began medboxes. Goal achieved 11/19/22. Patient graduated from [facility]. documented as of this encounter Procedures Procedure Name Priority Date/Time Associated Diagnosis Comments 28,29,30,31,25,24,20,19 ,18 MANDIBULAR PARTIAL DENTURE - RESIN BASE (INCLUDING, RETENTIVE/CLASPING MATERIALS, RESTS, AND TEETH) Routine 04/04/2025 11:15 AM EDT Edentulism Partially edentulous mandible, class I edentulism Max COMPLETE DENTURE - MAXILLARY Routine 04/04/2025 11:15 AM EDT Edentulism Partially edentulous mandible, class I edentulism CASE PRESENTATION, DETAILED AND EXTENSIVE TREATMENT PLANNING Routine 04/04/2025 11:15 AM EDT Edentulism Partially edentulous mandible, class I edentulism documented in this encounter Visit Diagnoses Diagnosis Edentulism- Primary Partially edentulous mandible, class I edentulism documented in this encounter Additional Health Concerns Assessment Noted Time PHQ-9 Depression Total Score: 22 025 10:31 AM EST documented as of this encounter Care Teams Meat Packager Relationship Specialty Start Date End Date Zeinab Sykes MD [address] [place] [address] PCP - General Internal Medicine 01/02/24 Tomeka Martins Electric Range PreparerLathe Turner 10/27/23 Tj Caring 11/06/24 documented as of this encounter
--- OUTSIDE RECORDS SUMMARY | 2025-04-09 16:02 | XMS_ITS | Encounter Summary ---
Author Organization [employer] Address [address] [facility] 7t [place] [address] Care Team Providers Care Sound Ranging Crewmember Name Role Phone Evelyn LedesmaP Primary Care Provider Oralia Dukes MD Primary Care Provider [phone] Zeinab Sykes MD Primary Care Provider + Reason for Visit * Reason Onset Date Comments case from lab 11/04/2022 Encounter Details Date Type Department Care Team (Late st Contact Info) Description 11/04/2022 Telephone [facility] ADULT DENTAL [address] [place] [address] Asad Shore, DDS [address] [place] [address] case from lab Social History Tobacco Use [...] Description 04/10/2025 8:00 AM EDT Office Visit [facility] ADULT DENTAL [address] [place] [address] Gay Thompson DDS [address] [place] [address] 05/28/2025 11:00 AM EST Office Visit [facility] MEDICINE [address] [place] [address] 06/05/2025 11:30 AM EST Office Visit [facility] MEDICINE [address] [place] [address] Zeinab Sykes MD [address] [place] [address] 10/03/2025 12:45 PM EDT Office Visit [facility] ADULT DENTAL [address] [place] [address] Fabi Hogue [address] [place] [address] documented as of this encounter Visit Diagnoses Not on filedocumented in this encounter Care Teams Sound Ranging Crewmember Relationship Specialty Start Date End Date Evelyn Ledesma FNP PCP - General Family Medicine 03/15/22 04/25/23 Oralia Aguila MD [address] [place] [address] PCP - General Family Medicine 04/26/23 01/01/24 Zeinab Sykes MD [address] [place] [address] PCP - General Internal Medicine 01/02/24 Tomeka Martins Maternity Floor SupervisorDegreaser Operator 10/27/23 Tj Caring 11/06/24 documented as of this encounter
--- OUTSIDE RECORDS SUMMARY | 2025-04-09 16:02 | XMS_ITS | Encounter Summary ---
Author Organization [employer] Address [address] [facility] 7t [place] [address] Care Team Providers Care Applied Exercise Physiologist Name Role Phone Evelyn Ledesma Primary Care Provider Oralia Dukes MD Primary Care Provider Zeinab Sykes MD Primary Care Provider + Reason for Visit * Reason Onset Date Comments Prior Authorization 12/28/2022 Encounter Details Date Type Department Care Team (Late st Contact Info) Description 12/28/2022 Telephone [facility] MEDICINE [address] [place] [address] Evelyn Ledesma FNP Prior Authorization Social History [...] AM EDT T/C placed to pt via [email or web address] Zeinab #[id number]. Advised of message from pcp re: lab [...] all other NSAIDS. Do you have a used car salesperson yet? If not, your PCP would [...] AM EDT TC luis m Emery from [employer] requesting XL pull ups and disposable under pads . States faxed request couple days ago and have not gotten a response . Informs paper work 12/29/22. Please call to clarify at phone # [phone] . documented in this encounter Plan of Treatment Upcoming Encounters Date Type Department Care Team (Late st Contact Info) Description 04/10/2025 8:00 AM EDT Office Visit [facility] ADULT DENTAL [address] [place] [address] Gay Thompson DDS [address] [place] [address] 05/28/2025 11:00 AM EST Office Visit [facility] MEDICINE [address] [place] [address] 06/05/2025 11:30 AM EST Office Visit [facility] MEDICINE [address] [place] [address] Zeinab Sykes MD [address] [place] [address] 10/03/2025 12:45 PM EDT Office Visit [facility] ADULT DENTAL [address] [place] [address] Mykel, Fabi [address] [place] [address] documented as of this encounter Goals Goal Patient Goal Type Associated Problems Recent Progress Patient-Stated? Author Patient will manage their medication General On track( 023 11:18 AM EDT) Citlali Ocampo, PharmD Note: Began medboxes. Goal achieved 11/19/22. Patient graduated from [facility]. documented as of this encounter Visit Diagnoses Not on filedocumented in this encounter Care Teams Applied Exercise Physiologist Relationship Specialty Start Date End Date Evelyn Ledesma FNP PCP - General Family Medicine 03/15/22 04/25/23 Oralia Aguila MD [address] [place] [address] PCP - General Family Medicine 04/26/23 01/01/24 Zeinab Sykes MD [address] [place] [address] PCP - General Internal Medicine 01/02/24 Tomeka Martins Fire Prevention CaptainPilot Control Operator Helper 10/27/23 Elara Caring 11/06/24 documented as of this encounter
--- OUTSIDE RECORDS SUMMARY | 2025-04-09 16:02 | XMS_ITS | Encounter Summary ---
Author Organization [employer] Address [address] [facility] 7t [place] [address] Care Team Providers Care Sports Medicine Specialist Name Role Phone Zeinab Sykes MD Primary Care Provider + Reason for Visit * Reason Comments Med Refill Encounter Details Date Type Department Care Team ([facility] st Contact Info) Description 02/16/2025 Refill [facility] MEDICINE [address] [place], [place] [phone] Zeinab Sykes MD [address] [place] [address] Neuropathy Social History Tobacco Use Types Packs/Day [...] Description 04/10/2025 8:00 AM EDT Office Visit [facility] ADULT DENTAL [address] [place] [address] Gay Thompson DDS [address] [place] [address] 05/28/2025 11:00 AM EST Office Visit [facility] MEDICINE [address] [place] [address] 06/05/2025 11:30 AM EST Office Visit [facility] MEDICINE [address] [place] [address] Zeinab Sykes MD [address] [place] [address] 10/03/2025 12:45 PM EDT Office Visit [facility] ADULT DENTAL [address] [place] [address] Fabi Hogue [address] [place] [address] documented as of this encounter Goals Goal Patient Goal Type Associated Problems Recent Progress Patient-Stated? Author Patient will manage their medication General On track( 023 11:18 AM EDT) Citlali Ocampo, PharmD Note: Began medboxes. Goal achieved 11/19/22. Patient graduated from [facility]. documented as of this encounter Visit Diagnoses Diagnosis Neuropathy Mononeuritis of unspecified site documented in this encounter Additional Health Concerns Assessment Noted Time PHQ-9 Depression Total Score: 22 025 10:31 AM EST documented as of this encounter Care Teams Sports Medicine Specialist Relationship Specialty Start Date End Date Zeinab Sykes MD [address] [place] [address] PCP - General Internal Medicine 01/02/24 Tomeka Martins Armed Security OfficerPlant Hr Manager 10/27/23 Tj Caring 11/06/24 documented as of this encounter
--- OUTSIDE RECORDS SUMMARY | 2025-04-09 16:02 | XMS_ITS | Encounter Summary ---
Author Organization [employer] Address [address] [facility] 7t [place] [address] Care Team Providers Care Shot Hole Driller Name Role Phone Evelyn Ledesma Primary Care Provider Oralia Dukes MD Primary Care Provider [phone] Zeinab Sykes MD Primary Care Provider + Reason for Visit * Reason Onset Date Comments Appointment Request 12/20/2022 Encounter Details Date Type Department Care Team (Late st Contact Info) Description 12/20/2022 Telephone [facility] MEDICINE [address] [place] [address] Evelyn Ledesma FNP Appointment Request Social History [...] an earlier day) Please contact pt at [phone] documented in this encounter Plan of Treatment Upcoming Encounters Date Type Department Care Team (Late st Contact Info) Description 04/10/2025 8:00 AM EDT Office Visit [facility] ADULT DENTAL [address] [place] [address] Gay Thompson, DDS [address] [place] [address] 05/28/2025 11:00 AM EST Office Visit [facility] MEDICINE [address] [place] [address] 06/05/2025 11:30 AM EST Office Visit [facility] [address] [place] [address] Zeinab Sykes MD [address] [place] [address] 10/03/2025 12:45 PM EDT Office Visit [facility] ADULT DENTAL [address] [place] [address] Ruben Hoguearis [address] [place] [address] documented as of this encounter Goals Goal Patient Goal Type Associated Problems Recent Progress Patient-Stated? Author Patient will manage their medication General On track( 023 11:18 AM EDT) No Citlali Armando PharmD Note: Began medboxes. Goal achieved 11/19/22. Patient graduated from [facility]. documented as of this encounter Visit Diagnoses Not on filedocumented in this encounter Care Teams Shot Hole Driller Relationship Specialty Start Date End Date Evelyn Ledesma FNP PCP - General Family Medicine 03/15/22 04/25/23 Oralia Aguila MD [address] [place] [address] [place] [address] PCP - General Family Medicine 04/26/23 01/01/24 Zeinab Sykes MD [address] [place] [address] PCP - General Internal Medicine 01/02/24 Tomeka Martins Magnetic ProspectorArt Historian 10/27/23 Tj Caring 11/06/24 documented as of this encounter
--- OUTSIDE RECORDS SUMMARY | 2025-04-09 16:02 | XMS_ITS | Encounter Summary ---
Author Organization [employer] Address [address] [place] [address] 7t [place] [address] Care Team Providers Care Cath Lab Nurse Name Role Phone Evelyn Ledesma Primary Care Provider Oralia Dukes MD Primary Care Provider [phone] Zeinab Sykes MD Primary Care Provider + Encounter Details Date Type Department Care Team ([facility] Contact Info) Description 10/22/2022 Orders Only [facility] MEDICINE [address] [place] [address] Evelyn Ledesma FNP Social History Tobacco Use [...] Department Care Team (Late Contact Info) Description 04/10/2025 8:00 AM EDT Office Visit [facility] ADULT DENTAL [address] [place] [address] Gay Thompson DDS [address] [place] [address] 05/28/2025 11:00 AM EST Office Visit [facility] MEDICINE [facility] [address] 06/05/2025 11:30 AM EST Office Visit [facility] MEDICINE [address] [place] [address] Zeinab Sykes MD [address] [facility] [place] [address] 10/03/2025 12:45 PM EDT Office Visit [facility] ADULT DENTAL [address] [place], [place] [phone] Fabi Hogue [address] [place] [address] documented as of this encounter Visit Diagnoses Not on filedocumented in this encounter Care Teams Cath Lab Nurse Relationship Specialty Start Date End Date Evelyn Ledesma FNP PCP - General Family Medicine 03/15/22 04/25/23 Oralia Aguila MD [facility] [place], [place] [phone] PCP - General Family Medicine 04/26/23 01/01/24 Zeinab Sykes MD [address] [place], [place] [phone] PCP - General Internal Medicine 01/02/24 Tomeka Martins Resource DirectorIce Hockey Coach 10/27/23 Elara Caring 11/06/24 documented as of this encounter
--- OUTSIDE RECORDS SUMMARY | 2025-04-09 16:02 | XMS_ITS | Encounter Summary ---
Author Organization [employer] Address [address] [facility] 7t [place] [address] Care Team Providers Care Independent Jeweler Name Role Phone Zeinab Sykes MD Primary Care Provider + Reason for Visit * Reason Onset Date Comments telephone call 04/09/2025 Encounter Details Date Type Department Care Team ([facility] Contact Info) Description 04/09/2025 Telephone [facility] MEDICINE [address] [place], [place] [phone] Zeinab Sykes MD [address] [place] [address] telephone call Social History Tobacco Use Types Packs/Day Years [...] encounter Miscellaneous Notes * Telephone Encounter - Morena Cordero - 04/09/2025 3:56 PM EDT Pt walked in stating she now has [employer] as her insurance and she used to received supplies through [employer] but she is requesting these items. 1.Wipes 2.Pampers (Large) 3.Pads 4.Gloves(Medium) documented in this encounter Plan of Treatment Upcoming Encounters Date Type Department Care Team (Late st Contact Info) Description 04/10/2025 8:00 AM EDT Office Visit [facility] ADULT DENTAL [address] [place] [address] Gay Thompson DDS [address] [place] [address] 05/28/2025 11:00 AM EST Office Visit [facility] MEDICINE [address] [place] [address] 06/05/2025 11:30 AM EST Office Visit [facility] MEDICINE [address] [place] [address] Zeinab Sykes MD [address] [place] [address] 10/03/2025 12:45 PM EDT Office Visit [facility] ADULT DENTAL [address] [place], [place] [phone] Fabi Hogue [address] [place] [address] documented as of this encounter Goals Goal [...] documented as of this encounter Care Teams Independent Jeweler Relationship Specialty Start Date End Date Zeinab Sykes MD [address] [place] [address] PCP - General Internal Medicine 01/02/24 Tomeka Martins Plant Operations CoordinatorProj Engineer 10/27/23 Tj Caring 11/06/24 documented as of this encounter
--- OUTSIDE RECORDS SUMMARY | 2025-04-09 16:02 | XMS_ITS | Encounter Summary ---
Author Organization [employer] Address [address] [place] [address] 7t [place] [address] Care Team Providers Care Cardiovascular Disease Specialist Name Role Phone Evelyn Ledesma Primary Care Provider Silvana Oralia Alamo MD Primary Care Provider [phone] Zeinab Sykes MD Primary Care Provider + Encounter Details Date Type Department Care Team ([facility] Contact Info) Description 08/20/2022 Orders Only [facility] MEDICINE [address] [place], [place] [phone] Karen Henderson FNP Social History Tobacco Use [...] Encounters Date Type Department Care Team ([facility] Contact Info) Description 04/10/2025 8:00 AM EDT Office Visit [facility] ADULT DENTAL [address] [place], [place] [phone] Gay Thompson DDS 230 [place] [address] 05/28/2025 11:00 AM EST Office Visit [facility] MEDICINE [facility] [place] [address] 06/05/2025 11:30 AM EST Office Visit [facility] MEDICINE [address] [facility] [place] [address] Zeinab Sykes MD [address] [facility] [place] [address] 10/03/2025 12:45 PM EDT Office Visit [facility] ADULT DENTAL [address] [facility] [place] [address] Fabi Hogue [address] [facility] [place] [address] documented as of this encounter Visit Diagnoses Not on filedocumented in this encounter Care Teams Cardiovascular Disease Specialist Relationship Specialty Start Date End Date Evelyn Ledesma FNP PCP - General Family Medicine 03/15/22 04/25/23 Oralia Aguila MD [facility] [place], [place] [phone] PCP - General Family Medicine 04/26/23 01/01/24 Zeinab Sykes MD [address]ammie [place], [place] [phone] PCP - General Internal Medicine 01/02/24 Tomeka Martins Sifting OperatorGeothermal Production Manager 10/27/23 Elara Caring 11/06/24 documented as of this encounter
--- OUTSIDE RECORDS SUMMARY | 2025-04-09 16:03 | XMS_ITS | Encounter Summary ---
Author Organization [employer] Address [address] [facility] 7t [place] [address] Care Team Providers Care Coper Hand Name Role Phone Zeinab Sykes MD Primary Care Provider + Reason for Visit * Reason Comments Med Refill Encounter Details Date Type Department Care Team ([facility] st Contact Info) Description 05/04/2024 Refill [facility] MEDICINE [address] [place], [place] [phone] Zeinab Sykes MD [address] [place] [address] Other intervertebral disc displacement, lumbar region Social [...] Description 04/10/2025 8:00 AM EDT Office Visit [facility] ADULT DENTAL [address] [place] [address] Gay Thompson DDS [address] [place] [address] 05/28/2025 11:00 AM EST Office Visit [facility] MEDICINE [address] [place] [address] 06/05/2025 11:30 AM EST Office Visit [facility] MEDICINE [address] [place] [address] Zeinab Sykes MD [address] [place] [address] 10/03/2025 12:45 PM EDT Office Visit [facility] ADULT DENTAL [address] [place] [address] Fabi Hogue [address] [place] [address] documented as of this encounter Goals Goal Patient Goal Type Associated Problems Recent Progress Patient-Stated? Author Patient will manage their medication General On track( 023 11:18 AM EDT) No Citlali Armando, PharmCatrachita Note: Began medboxes. Goal achieved 11/19/22. Patient graduated from [facility]. documented as of this encounter Visit Diagnoses Diagnosis Other intervertebral disc displacement, lumbar region documented in this encounter Additional Health Concerns Assessment Noted Time PHQ-9 Depression Total Score: 18 024 1:46 PM EDT documented as of this encounter Care Teams Coper Hand Relationship Specialty Start Date End Date Zeinab Sykes MD [address] [place] [address] PCP - General Internal Medicine 01/02/24 Tomeka Martins Block TraderBelt Polisher 10/27/23 Tj Caring 11/06/24 documented as of this encounter
--- OUTSIDE RECORDS SUMMARY | 2025-04-09 16:03 | XMS_ITS | Encounter Summary ---
Author Organization [employer] Address [address] [place] [address] [address] [place] [address] Care Team Providers Care Radio News Writer Name Role Phone Evelyn Ledesma Primary Care Provider Oralia Dukes MD Primary Care Provider [phone] Zeinab Sykes MD Primary Care Provider + Reason for Visit * Reason Comments Med Refill Encounter Details Date Type Department Care Team (Late Contact Info) Description 02/05/2023 Refill [facility] [address] [place] [address] Evelyn Ledesma FNP Neuropathy Social History Tobacco [...] Description 04/10/2025 8:00 AM EDT Office Visit [facility] [address] [place] [address] Gay Thompson, DDS [address], [place] [phone] 05/28/2025 11:00 AM EST Office Visit [facility] [address] [place] [address] 06/05/2025 11:30 AM EST Office Visit [facility] [address] [place] [address] Zeinab Sykes MD [address] [place] [address] 10/03/2025 12:45 PM EDT Office Visit [facility] [address], [place] [phone] Mykel, Fabi [address] [place] [address] documented as of this encounter Goals Goal Patient Goal Type Associated Problems Recent Progress Patient-Stated? Author Patient will manage their medication General On track( 023 11:18 AM EDT) Citlali Ocampo PharmD Note: Began medboxes. Goal achieved 11/19/22. Patient graduated from [facility]. documented as of this encounter Visit Diagnoses Diagnosis Neuropathy Mononeuritis of unspecified site documented in this encounter Care Teams Radio News Writer Relationship Specialty Start Date End Date Evelyn Ledesma FNP PCP - General Family Medicine 03/15/22 04/25/23 Oralia Aguila MD [address] [place] [id number] PCP - General Family Medicine 04/26/23 01/01/24 Zeinab Sykes MD [address] [place] [id number] PCP - General Internal Medicine 01/02/24 Tomeka Martins Grassroots OrganizerStaff Attorney 10/27/23 [employer] 11/06/24 documented as of this encounter
--- OUTSIDE RECORDS SUMMARY | 2025-04-09 16:03 | XMS_ITS | Clinical Summary ---
Author Organization [employer] Address [address] [place] [address] Care Team Providers Care Hotel Clerk Name Role Phone Zeniab Sykes MD Primary Care Provider + Allergies [...] capsules per day. Patient purchases OTC. Active betamethasone dipropionate (Diprosone) 0.05 % lotion [...] inhaler Inhale 2 puffs 2 times daily. 023 Active Clobetasol Propionate 0.05 % lotion [...] in the morning. Active oxymetazoline (Afrin Nasal [place]) 0.05 % nasal spray Administer 2 sprays into each nostril every 12 (twelve) hours if needed for congestion for up to 2 days. Do not use for more than 3 days. 30 mL 024 Active ondansetron (Zofran) 4 MG tablet [...] current use of insulin ([facility]) 1 each by Other route Once per day. USE TO TEST BLOOD SUGAR ONCE A DAY 100 each 3 024 Active glucose blood (FREESTYLE LITE) test stripIndications:T ype 2 diabetes mellitus without complication, without long-term current use of insulin ([facility]/HCC) USE TO TEST BLOOD SUGAR ONCE A DAY 100 each 3 024 Active Alcohol Swabs (Alcohol Prep) padsIndications:Ty pe [...] 025 Active ergocalciferol (Vitamin D2) 1.25 MG (38652 UT) capsule Take 1 capsule (1.25 mg) by mouth 1 (one) time per week. 12 capsule 1 025 Active nystatin (Mycostatin) ointment Apply topically 2 times daily. Apply to the affected area two times a day- corner of the mouth. 15 g 1 025 2025 Active celecoxib (CeleBREX) 100 MG capsuleIndications :Left hand pain TAKE 1 CAPSULE BY MOUTH TWICE DAILY 60 capsule 3 025 Active cetirizine (ZyrTEC) 10 MG tabletIndications: Seasonal allergic rhinitis, unspecified trigger TAKE 1 TABLET BY MOUTH EVERY MORNING 90 tablet 3 025 Active lidocaine (Lidoderm) 5 % patchIndications:O ther intervertebral disc displacement, lumbar region APPLY 1 PATCH TOPICALLY TO SKIN, LEAVE ON FOR 12 HOURS AND OFF FOR 12 HOURS DIRECTED 30 patch 3 025 Active gabapentin (Neurontin) 300 MG capsuleIndications :Neuropathy TAKE 1 CAPSULE BY MOUTH THREE TIMES DAILY IN THE MORNING, EVENING, AND BEDTIME 90 capsule 3 025 Active oxyCODONE-acetamin ophen (Percocet) 5-325 MG tabletIndications: Other intervertebral disc displacement, lumbar region Take 1 tablet by mouth every 6 (six) hours if needed for severe pain for up to 28 days. Do not start before March 28, 2025. 112 tablet 025 2024 Active azelaic acid (Azelex) 20 % cream Apply topically 2 times daily. 50 g 025 2025 Active Finacea 15 % gel APPLY TOPICALLY TO THE FACE ONCE DAILY 023 2024 Discontinued(I neffective) pseudoephedrine (Sudafed) 60 MG tablet Take 1 tablet (60 mg) by mouth every 6 (six) hours if needed for congestion for up to 7 days. 20 tablet 024 2024 Discontinued(T herapy completed) sodium chloride ([place] Nasal [place]) 0.65 % nasal sprayIndications:A cute nasopharyngitis Administer 1 spray into each nostril if needed for congestion. 30 mL 1 025 2024 Discontinued(T herapy completed) oxyCODONE-acetamin ophen (Percocet) 5-325 MG tabletIndications: Other intervertebral disc displacement, lumbar region Take 1 tablet by mouth every 6 (six) hours if needed for severe pain for up to 28 days. 112 tablet 025 2024 Discontinued Active Problems Problem Noted Date Diagnosed Date Memory impairment 04/02/2025 Assessment & Plan (04/02/2025 3:49 PM EDT): Most likely related to depression and long-term use of narcotics Will order labs and rule out secondary causes Discussed importance of tight control of depression, hypertension Follow-up with me in 4 weeks Tubular adenoma of colon 04/02/2025 Assessment & Plan (04/02/2025 3:49 PM EDT): Had 2 TA's resected [place] [address] Pearson, she is overdue for colonoscopy as of last year. I will send a referral to GI exclusively for colonoscopy, she is seeing their for other conditions and they are aware of follow-up but have not been able to schedule colonoscopy. Patient will follow-up with them at next upcoming appointment Dental plaque 01/04/2025 Generalized gingival recession 01/04/2025 Gingival bleeding 01/04/2025 Excessive attrition of teeth 01/04/2025 Edentulism 01/04/2025 Vitamin D deficiency 10/09/2024 Assessment & Plan (10/09/2024 2:22 PM EDT): Restart vitamin D x 6 months Advised regarding outdoor exercises for at least 15 minutes. Follow-up vitamin D levels in 1 year Recurrent major depressive disorder, in partial remission 08/15/2024 Assessment & Plan (04/02/2025 3:42 PM EDT): Patient is doing fairly well on duloxetine, doxepin and gabapentin Follow-up with psychiatry Mitzi Concepcion Patient feels safe at home and is able to reach out for safety Advised to continue coming to clinic pain management groups on a monthly basis Advised to contact puncture clinic Assessment & Plan (08/15/2024 1:31 PM EST): [...] and titration. I will prescribe nasal mask. Postmenopause bleeding 03/29/2024 Assessment & Plan (08/15/2024 1:28 PM EST): Result s/p endometrial polyp resection. Assessment & Plan (03/29/2024 2:47 PM EDT): Resolved. Pelvic US is pending, she may need endometrial bx, I will fu or refer to SOIL CHEMIST after US reports. Left foot pain 03/29/2024 [...] L4-5 and right L5-S1 decompressive laminectomy at [facility] - surgeon Dr. Melia Pedroza DME request for 10-in-1 pillow on 07/31/24 (not approved by insurance) Assessment & Plan (10/23/2024 2:47 PM EDT): Known DDD L-spine with radiculopathy sxs 05/26/2018 - Lumbar decompression surgery: L4-5 and right L5-S1 decompressive laminectomy at [facility] - surgeon Dr. Melia Pedroza DME request for 10-in-1 pillow on 07/31/24 (not approved by insurance) Assessment & Plan (09/27/2024 11:23 AM EDT): Known DDD L-spine with radiculopathy sxs 05/26/2018 - Lumbar decompression surgery: L4-5 and right L5-S1 decompressive laminectomy at [facility] - surgeon Dr. Melia Pedroza DME request for 10-in-1 pillow on 07/31/24 (not approved by insurance) Assessment & Plan (07/31/2024 4:58 PM EST): Known DDD L-spine with radiculopathy sxs 05/26/2018 - Lumbar decompression surgery: L4-5 and right L5-S1 decompressive laminectomy at [facility] - surgeon Dr. Melia Pedroza DME request for 10-in-1 pillow on 07/31/24 Assessment & Plan (05/29/2024 5:18 PM EST): Known DDD L-spine with radiculopathy sxs 05/26/2018 - Lumbar decompression surgery: L4-5 and right L5-S1 decompressive laminectomy at [facility] - surgeon Dr. Melia Pedroza Assessment [...] disc, s/p vagus nerve stimulator, neuropathy Last [employer] Agreement: 02/26/25 Tier 3: [employer] visit Q4-6 months. (Last evaluated Jul 2024 [...] of scalp 01/02/2024 Overview (01/02/2024): Seen at [facility] dermatology Assessment & Plan (03/20/2024 3:50 PM EDT): Generally well controlled, encouraged to continue fu with [facility] derm Refill for fluocinolone today. Housing insecurity 01/02/2024 Assessment & Plan (08/15/2024 1:36 PM EST): See above. Applying for housing and need handicap access. Assessment & Plan (03/20/2024 3:51 PM EDT): Awaiting housing application, lives in abasement FU with [facility]. Stage 3a chronic kidney disease 11/01/2023 Assessment & Plan (03/29/2024 2:39 PM EDT): GFR stable in the 50s. Advised re tight control of DM, HTN and hyperlipidemia. Advised to avoid NSAIDs, tylenol is ok for pain. Assessment & Plan (11/01/2023 3:29 PM EDT): Will check labs. Moderate persistent asthma with acute exacerbati on 11/01/2023 Assessment & Plan (08/15/2024 1:38 PM EST): DuoNeb nebullization today and will continue BID at home for 5 days and after PRN. FU in 1 month. Assessment & Plan (11/01/2023 3:27 PM EDT): Cont Symbicort. Cont albuterol prn. Will refer her back to contract management specialist. RUQ pain 10/05/2023 Assessment & Plan (11/01/2023 3:28 PM EDT): Pt was seen in [facility] for RUQ. US was ordered but pending. [...] ballon inside the gastric body placed in [place] for bariatric procedure about 20 cm in [...] every 4-6 hours PRN Assessment & Plan (04/02/2025 3:46 PM EDT): Well-controlled, no recent exacerbations Continue Symbicort twice daily + every 6 hours as needed Patient is a non-smoker Advised to have influenza and COVID immunizations at her earliest convenience Follow-up with me in 6 months Assessment & Plan (09/08/2023 4:18 PM EST): [...] Neurostimulator device in situ 08/20/2022 Obesity 08/20/2022 Assessment & Plan (04/02/2025 3:47 PM EDT): Discussed re weight reduction options including exercise, life style modifications, diet. Recommended to decrease soda and sugary beverage consumption, increase protein intake with meals (at least 1 portion of protein with each meal) to assist with satiety, increase dietary fiber Recommended at least 150 min/week of moderate intensity exercise. She will follow-up with dietitian last time, will send referral again. The plan is to educate regarding healthy lifestyle and start medications for weight reduction. S/P placement of VNS (vagus nerve stimulation) [...] months or sooner prn Assessment & Plan (04/02/2025 3:40 PM EDT): Controlled. A1c is at goal. Continue on lifestyle modification/dietary management Counseled re more frequent low calorie/carb meals. Check fgstk 1x daily Encouraged physical activity as tolerated. FU in 4 months. Foot examination within normal limits, no evidence of diabetic neuropathy Assessment & Plan (10/09/2024 2:23 PM EDT): [...] lumbar r egion 05/17/2017 Overview (09/17/2022): On [employer] contract. discussed tapering percocet options, not interested.. Referred to [facility] forms dept for handicap plackards documents. Referred to [facility] for polypharmacy education. Continue medications as prescribed. Discussed Narcan. Encouraged nonpharmacologic pain relief strategies. will f/up next visit Assessment & Plan (04/02/2025 3:45 PM EDT): On [facility] contract, continue Percocet 3-4 times per day and follow-up with chronic pain management program and [employer] nurse. We have done [employer] education re opiate side effects including dizziness, somnolence, constipation, urinary retention, dependance, etc. Patient is aware of the importance of avoiding any activity that requires vigilance while taking these meds including driving. We have discussed re avoiding diversion of medication, including giving pills to relatives. Patient is to keep medications in a safe place and is aware that rx will not be replaced if lost or stolen. Assessment & Plan (03/20/2024 3:48 PM EDT): On [employer] contract. discussed tapering percocet options, not interested, it apparently offers partial enough improvement of sxs. Patient is aware that [employer]termaker continuous churn use of opiates can cause hyperalgesia, liver toxicity, COSMETIC SALES CONSULTANT toxicity, increase anxiety, among others. Will continue to work with chronic pain management [facility] clinic. Continue medications as prescribed. Discussed [...] elevated BP readings.. Referred to [facility] for polypharmacy education. Continue medications as prescribed, strongly advised regarding compliance. Continue monitroing BP at home. Keep daily log of BP readings. Follow lifestyle modifications. Labs ordered, will evaluate and provide further recommendation per results. F/up 3 mo. or sooner PRN. Assessment & Plan (04/02/2025 3:35 PM EDT): Uncontrolled, it is prior related to patient exertional pain. It is apparently better controlled at home. We discussed about taking medication for pain as prescribed, alternate Tylenol every 8 hours with oxycodone Continue Exforge and chlorthalidone on med boxes Counseled re low salt diet/increase moderate physical activity. Check home BP BIW and prn CP/GUERIN/HART Non smoking patient. Follow-up with me in 6 months with labs Assessment & Plan (10/09/2024 2:23 PM EDT): Controlled, see recent note on 08/15/2024 Assessment & Plan (08/15/2024 1:25 PM EST): Controlled. Compliant w/ Exforge, Chlorthalidone. Counseled re low salt diet/increase moderate physical activity. Check home BP BIW and prn CP/GUERIN/HART Arthritis Assessment & Plan (04/02/2025 3:43 PM EDT): Multiple sites, mostly on hands, improved with Tylenol as needed She has a vagal nerve stimulator and is on chronic narcotics for management of lumbar radiculopathy and disc disease She needs assistance with ADLs, she is on narcotic contract. Assessment & Plan (10/09/2024 2:21 PM EDT): Mostly on both hands today, has [place] nodules. Use Tylenol as needed, use protective gloves as needed for ADLs. Continue vitamin D supplementation to complete 6 months Reconsult as needed Resolved Problems Problem Noted Date Diagnosed Date Resolved Date Nasal congestion 08/15/2024 04/02/2025 Assessment & Plan (08/15/2024 12:53 PM EST): Residual from URI, now improving. Continue Flonase and Tylenol as needed. DuoNeb nebulization today for asthma exacerbation and she will return to clinic if symptoms get worse or she develops fever again. Strep pharyngitis 12/26/2023 05/29/2024 Recurrent sinusitis 11/01/2023 04/02/20 25 Assessment & Plan (11/01/2023 3:57 PM EDT): S/p treatment w/ amoxicillin SEPTEMBER 2023. Will give prednisone and pseudophedrine short term. Will refer her to contract management specialist again so she can be evaluated for allergy and receive treatment if indicated. Acute maxillary sinusitis 09/08/2023 Viral URI 09/03/2022 09/13/2023 Back pain 08/20/2022 12/30/2022 Onychomycosis of multiple to enails with type 2 diabetes mellitus ([facility]) 05/17/2017 03/29/2024 Encounters * This document contains information received from the source organization and may not represent a complete record from that organization. Date Type Department Care Team Description 04/09/2025 Telephone [facility] [address] [place] [phone] Zeinab Sykes MD telephone call 04/04/2025 11:15 AM EDT Office Visit [facility] ADULT DENTAL [address] [place] [phone] Watkins-Maynard, Gay, DDS Edentulism (Primary Dx); Partially edentulous mandible, class I edentulism 04/02/2025 11:15 AM EDT Office Visit [facility] [address] [place] [address] [phone] Zeinab Sykes MD Type 2 diabetes mellitus without complication, without long-term current use of insulin ([facility]) (Primary Dx); Essential hypertension; Arthritis; Moderate persistent asthma without complication; Recurrent major depressive disorder, in partial remission ([facility]/HCC); Other intervertebral disc displacement, lumbar region; Memory impairment; Tubular adenoma of colon; Class 2 severe obesity due to excess calories with serious comorbidity and body mass index (BMI) of 35.0 to 35.9 in adult (CMS/HCC); Obesity (BMI 35.0-39.9 without comorbidity); Screening mammogram for breast cancer 04/02/2025 Patient Outreach [facility] [address] [place] [phone] Zeinab Sykes MD Care Coordination (CHW outreach for SDOH housing search-referral completed ) 04/02/2025 Travel 04/02/2025 Telephone [facility] [address] [place] [address] [phone] Zeinab Sykes MD appt change 03/27/2025 11:15 AM EDT Office Visit [facility] [address] [place] [address] Watkins-Maynard, Gay, DDS Edentulism (Primary Dx); Partially edentulous mandible, class I edentulism 03/27/2025 Refill [facility] [address] [place] [address] Janessa Jolley MD Other intervertebral disc displacement, lumbar region 03/19/2025 11:00 AM EDT Office Visit [facility] [address] [place] [address] Watkins-Maynard, Gay, DDS Edentulism (Primary Dx); Partially edentulous mandible, class I edentulism 03/08/2025 10:00 AM EDT Office Visit [facility] [address] [place] [address] Watkins-Maynard, Gay, DDS Edentulism (Primary Dx); Partially edentulous mandible, class I edentulism 03/06/2025 Refill [facility] [address] [place] [address] Zeinab Sykes MD Neuropathy 02/27/2025 Refill [facility] [address] [place] [address] Zeinab Sykes MD Other intervertebral disc displacement, lumbar region 02/26/2025 11:00 AM EDT Office Visit [facility] [address] [place] [phone] Alma Jha FNP Lumbar back pain with radiculopathy affecting left lower extremity (Primary Dx); Long-term current use of opiate analgesic 02/26/2025 Travel 02/21/2025 Telephone [facility] [address] [place] [address] Zeinab Sykes MD Prior Authorization ([facility] PA: Lidocaine 5% Patch) 02/20/2025 Refill [facility] [address] [place] [address] Zeinab Sykes MD Other intervertebral disc displacement, lumbar region 02/18/2025 Telephone [facility] [address] [place] [address] [phone] Zeinab Sykes MD Referral 02/18/2025 Telephone [facility] [address] [place] [address] [phone] Zeinab Sykes MD Durable Medical Equipment (DME Order: Multiple Items) 02/16/2025 Refill [facility] [address] [place] [address] [phone] Zeinab Sykes MD Neuropathy 01/28/2025 Refill [facility] [address] [place] [address] Zeinab Sykes MD Other intervertebral disc displacement, lumbar region 01/21/2025 Telephone [facility] [address] [place] [address] [phone] Scarlett Gibbs, PAULINA Rescheduled chronic pain group 01/15/2025 Refill [facility] [address] [place] [address] [phone] Janessa Jolley MD Seasonal allergic rhinitis, unspecified trigger 01/12/2025 Refill [facility] [address] [place] [address] [phone] Zeinab Sykes MD Left hand pain 01/09/2025 Telephone [facility] [address] [place] [address] [phone] Zeinab Sykes MD chart prep from Last 3 Months Immunizations Immunization Administration [...] Sign Reading Time Taken Comments Blood Pressure 130/85 04/02/2025 12:15 PM EDT Pulse 80 04/02/2025 11:55 AM EDT Temperature 36.2 C (97.1 F) 04/02/2025 11:55 AM EDT Respiratory Rate 24 04/02/2025 11:5 5 AM EDT Oxygen Saturation 97% 10/09/2024 11: 56 AM EDT Inhaled Oxygen Concentration - - Weight 91.1 kg (200 lb 12.8 oz) 025 11:55 AM EDT Height 160 cm (5' 3 ) 04/02/2025 11:55 AM EDT Body Mass Index 35.57 04/02/2025 11:55 AM EDT Plan of Treatment Upcoming Encounters Date Type Department Care Team (Late st Contact Info) Description 04/10/2025 8:00 AM EDT Office Visit [facility] AD[facility] D[facility] [address] [place] [phone] Gay Thompson DDS [address] [place] [address] 05/28/2025 11:00 AM EST Office Visit [facility] [address] [place] [phone] 06/05/2025 11:30 AM EST Office Visit [facility] [address] [place] [address] [phone] Zeinab Sykes MD [address] [place] [address] 10/03/2025 12:45 PM EDT Office Visit [facility] [address] [place] [phone] Fabi Hogue [address] [place] [address] Health Maintenance Due Date Last Done Comments CT Colonography 1960 Dental X-Ray: Bitewings 1960 FIT DNA/Cologuard 1960 FIT 1960 FOBT 1960 Sigmoidoscopy 1960 Eye Exam 11/05/1969 Hepatitis A Vaccines (1 of 2 - Risk 2-dose series) 11/05/1978 Diabetes: Urine Protein Screening 03/08/2023 03/08/2022, 09/16/2020 Colonoscopy 2023 11/05/2020 Colorectal Cancer Screening 2023 Mammogram 03/15/2024 03/15/2022, 01/17, 10/07/2020 Lipid Panel 01/05/2025 01/06/2024, 05/19, 09/16/2020 COVID-19 Vaccine ( season) 2025 08/24/2022, 01/15/2022, 08/04/2021, Additional history exists Influenza Vaccine (#1) 2025 , 07/28/2020, 04/05/2018 Cervical Cancer Screening 07/07/2025 Dental Oral Exam 07/07/2025 01/04/2025, 11/2023, 07/22/2023 Dental Prophylaxis 07/07/2025 01/04/2025, 0 01/20/2024, 07/22/2023 HPV/Cotest 07/07/2025 07/07/2020 Depression Monitoring 09/30/2025 04/02/2025, 025 Diabetes: Hemoglobin A1C 09/30/2025 025, 10/09/2024, 03/29/2024, Additional history exists Alcohol/Substance Use Screening 04/02/2026 04/02/2025 Diabetes: Foot Exam 04/02/2026 04/02/2025, 04/02/2025, 04/02/2025, Additional history exists SDOH Screening 04/02/2026 04/02/2025 Tobacco Screening 04/04/2026 04/04/2025 Pap Smear 06/01/2027 06/01/2024, 07/07/2020 Dental X-Ray: Full Mouth 01/06/2028 01/04/2025, 0411/2020 DTaP/Tdap/Td Vaccines (2 - Td or Tdap) [...] medboxes. Goal achieved 11/19/22. Patient graduated from [facility]. Procedures Procedure Name Priority Date/Time Associated Diagnosis Comments CASE PRESENTATION, DETAILED AND EXTENSIVE TREATMENT PLANNING Routine 04/04/2025 11:15 AM EDT Edentulism Partially edentulous mandible, class I edentulism 28,29,30,31,25,24,20 ,19,18 MANDIBULAR PARTIAL DENTURE - RESIN BASE (INCLUDING, RETENTIVE/CLASPING MATERIALS, RESTS, AND TEETH) Routine 04/04/2025 11:15 AM EDT Edentulism Partially edentulous mandible, class I edentulism Max COMPLETE DENTURE - MAXILLARY Routine 04/04/2025 11:15 AM EDT Edentulism Partially edentulous mandible, class I edentulism POCT GLYCATED HEMOGLOBIN, TOTAL Routine 04/02/2025 11:59 AM EDT Type 2 diabetes mellitus without complication, without long-term current use of insulin (CMS/HCC) POCT GLUCOSE Routine 04/02/2025 11:57 AM EDT Type 2 diabetes mellitus without complication, without long-term current use of insulin (CMS/HCC) WAX TRY IN Routine 03/27/2025 11:15 AM EDT Edentulism Partially edentulous mandible, class I edentulism BITE REGISTRATION Routine 03/19/2025 11: 00 AM EDT Edentulism Partially edentulous mandible, class I edentulism DENTURE IMPRESSION Routine 03/08/2025 10 :00 AM EDT Edentulism Partially edentulous mandible, class I edentulism POCT DIDIER-14 URINE DRUG SCREEN Routine 02/26/2025 11:46 AM EDT Lumbar back pain with radiculopathy affecting left lower extremity PROPHYLAXIS - ADULT Routine 01/04/2025 1 1:00 AM EDT Dental plaque Gingival bleeding PANORAMIC RADIOGRAPHIC IMAGE Routine 01/04/2025 11:00 AM EDT Dental plaque Generalized gingival recession Gingival bleeding Excessive attrition of teeth Edentulism PERIODIC ORAL EVALUATION - ESTABLISHED PATIENT Routine 01/04/2025 11:00 AM EDT Dental plaque Generalized gingival recession Gingival bleeding Excessive attrition of teeth Edentulism Encounter for dental examination PAP SMEAR Routine 06/01/2024 2:43 PM EST [...] to Health Maintenance Results * (ABNORMAL) POCT Hgb A1c (04/02/2025 11:59 AM EDT) Hemoglobin A1C 6.8(A) 4.0 - 5.7 % QC Media Lot # [id number] Lot# Expiration Date ,933,824 Blood 04/02/2025 11:5 9 AM EDT Zeinab Sykes MD POINT OF CARE TE ST ENTER/EDIT ORDERABLES Edited Result - Final * POCT Glucose (04/02/2025 11:57 AM EDT) Pathologist [facility] Glucose Blood, POC 139 60 - 200 mg/dL Comment:random QC Media Lot # [id number] Lot# Expiration Date ,036,[id number] Blood Capillary blood specimen / Unknown 04/02/2025 11:57 AM EDT Zeinab Sykes MD POINT OF CARE TEST ENTER /EDIT ORDERABLES Final Result * (ABNORMAL) POCT DIDIER-14 Urine Drug Screen [...] procedure / Unknown 02/26/2025 11:46 AM EDT Narrative Jasmyn Menjivar, RN - 02/26/2025 11:46 AM EDT .UTOX cup Lot#[id number] Exp. 04/23/26 Internal Pass Control Alma Jha MAKEUP ARTIST POINT OF CARE TEST ENTER/EDIT ORDERABLES Final Result * Pap Smear (06/01/2024 2:43 PM EST) 06/01/2024 2:43 PM EST 06/04/2024 9:25 AM EST Narrative [facility] - 06/20/2024 7:51 AM EST ----- ------- Name: Rhonda Fernández Age/Sex: 63/F : 1960 Unit#: [id number] Attend Dr: Aisha Mcclain CNM Re06/01/24 Status: DEP REF Location: HO.LNP Disch: ----- ------- SPEC : [id number] RECD: 06/04/24 STATUS: HODA GARRETT NUM: [id number] DARWIN: 06/01/24-[address]: Aisha Mcclain CNM ENTERED: 06/04/24-1001 SP [...] Received ThinPrep-Cervical Copies To: Zeinab Sykes MD [facility] [address] [place] [address] SarahiAishaparadise [facility] [address] [place] [address] ----- ------- Signed (signature on file) INDERJIT Bloom (ASCP) 06/20/24 0751 ----- ------- END OF REPORT us Generic External Data Provider LAB CYTOLOGY JERED STAFFORD Final Result [facility] [address] [place] [address] [phone] * (ABNORMAL) Lipid Panel with Reflex to Direct LDL (01/06/2024 12:38 PM EDT) Triglycerides 91 <150 mg/dL [facility] Comment:Desirable Triglyceri de: less than 150 mg/dLBorderline High Triglyceride 150-199 mg/dLHigh Triglyceride: 200-499 mg/dLVery High Triglyceride: greater than or equal to 5OO mg/dL Cholesterol 211(H) <200 mg/dL [facility] Comment:Desirable Cholestero l: less than 200 mg/dLBorderline High Cholesterol: 200-239 mg/dLHigh Cholesterol: greater than 239 mg/dL LDL Cholesterol Calculated 132(H) <100 mg/dL [facility] Comment:Desirable LDL: less than 100 mg/dLNear Optimal/Above Optimal LDL: 110- 129 mg/dLBorderline High LDL: 130-159 mg/dLHigh LDL: 160-189 mg/dLVery High LDL: greater than or equal to 190 mg/dL HDL Cholesterol 61 >40 mg/dL [facility] Comment:Desirable HDL: great er than 40 mg/dL Note: This HDL assay may give artificially low results in patients with liver disease. Blood 01/06/2024 12:3 8 PM EDT 01/06/2024 4:21 PM EDT us Zeinab Sykes MD LAB BLOOD ORDERABLES Fin al Result Performing Organization Address [facility] de Phone Number [facility] [address] [place] [phone] * Hepatitis Panel, General (01/06/2024 12:38 PM EDT) Hepatitis A IgM Nonreactive Nonreactive [facility] Comment:IgM antibodies to GUERIN V not detected; does not exclude earlyacute or recovered HAV infection. ~Hepatitis B Surface Antibody REACTIVE Nonreactive [facility] Comment:REACTIVE: > 11.99 mI U/mL Hepatitis B Core Antibody Nonreactive Nonreactive [facility] Hepatitis C Antibody Nonreactive Nonreactive [facility] Comment:Antibodies to HCV no t detected; does not exclude early acuteHCV infection. Hepatitis B Surface Ag Negative Negative [facility] Blood 01/06/2024 12:3 8 PM EDT 01/06/2024 4:21 PM EDT Zeinab Sykes MD LAB BLOOD ORDERABLES Fin al Result Performing Organization Address City/[facility]/ZIP Co de Phone Number [facility] [address] [place] [address] [phone] * Mammography Report 1 (03/15/2022 5:00 PM EDT) Anatomical Region Laterality Modality Breast Bilateral Mammography 03/15/2022 5:00 PM EDT Narrative 03/16/2022 8:33 AM EDT Refer to the Notes tab for result details [facility] Procedure: Mammography Report 1 Procedure Note ProviderParag MD - 10/10/2022 Refer to the Notes tab for result details [facility] Procedure: Mammography Report 1 Evelyn Ledesma MAKEUP ARTIST IMG BI PROCEDURES Final Re sult * [...] SYSTEM 03/08/2022 3:04 PM EDT Rebekah Guevara WET PROCESS MILLER HEAD ASSISTANT LAB URINE ORDERABLES Final Res ult [facility] [address] * Hm Colonoscopy (11/05/2020 11:36 AM [...] of this assay have been determined by [employer]. The modifications have not been cleared or approved by the FDA. This assay has been validated pursuant to the CLIA regulations and is used for clinical purposes. 07/07/2020 us Historical Provider LAB BLOOD ORDERABLES Sera hayes Result [facility] [employer] [facility] [address] from Last 3 Months or Most Recently Relevant to Health Maintenance Insurance [facility] FCI OPTIONS (HMO D-SNP) DENTAL - [facility] Care Teams Hotel Clerk Relationship Specialty Start Date End Date Zeinab Sykes MD [address] [place] [address] PCP - General Internal Medicine 01/02/24 Tomeka Martins In Store RepresentativeFlying Squad Worker 10/27/23 [employer] 11/06/24
--- OUTSIDE RECORDS SUMMARY | 2025-04-09 16:03 | XMS_ITS | Encounter Summary ---
Author Organization [employer] Address [address] [place] [address] 7 [place] [address] Care Team Providers Care Junk Dealer Name Role Phone Oralia Aguila MD Primary Care Provider [phone] Zeinab Sykes MD Primary Care Provider + Reason for Visit * Reason Comments Med Refill Encounter Details Date Type Department Care Team (Late Contact Info) Description 08/09/2023 Refill [facility] [address] [place] [address] Oralia Aguila MD [address] [place] [address] Other intervertebral disc displacement, lumbar region Social [...] Description 04/10/2025 8:00 AM EDT Office Visit [facility] ADULT DENTAL [address] [place] [address] Gay Thompson DDS [address] [place], [place] [phone] 05/28/2025 11:00 AM EST Office Visit [facility] [address] [place], [place] [phone] 06/05/2025 11:30 AM EST Office Visit [facility] [address] [place] [phone] Zeinab Sykes MD [address] [place] [address] 10/03/2025 12:45 PM EDT Office Visit [facility] ADULT DENTAL [address] [place] [address] Ruben Hoguearis [address] [place] [address] documented as of this encounter Goals Goal [...] region documented in this encounter Care Teams Junk Dealer Relationship Specialty Start Date End Date Oralia Aguila MD [address] [place] [address] [phone] PCP - General Family Medicine 04/26/23 01/01/24 Zeinab Sykes MD [address] [place] [address] PCP - General Internal Medicine 01/02/24 Tomeka Martins Entertainer Or Variety ArtistSurgical Services Manager 10/27/23 [employer] 11/06/24 documented as of this encounter
--- OUTSIDE RECORDS SUMMARY | 2025-04-09 16:03 | XMS_ITS | Encounter Summary ---
Author Organization [employer] Address [address] [facility] 7t [place] [address] Care Team Providers Care Arterial Embalmer Name Role Phone Evelyn LedesmaP Primary Care Provider Oralia Dukes MD Primary Care Provider [phone] Zeinab Sykes MD Primary Care Provider + Reason for Visit * Reason Onset Date Comments medical clearance 02/11/2023 Encounter Details Date Type Department Care Team (Late st Contact Info) Description 02/11/2023 Telephone [facility] ADULT DENTAL [address] [place] [address] Asad Shore, DDS [address] [place] [address] medical clearance Social History Tobacco Use Types [...] 8:00 AM EDT Office Visit [facility] ADULT DENTAL [address] [place] [address] Gay Thompson DDS [address] [place] [address] 05/28/2025 11:00 AM EST Office Visit [facility] MEDICINE [address] [place] [address] 06/05/2025 11:30 AM EST Office Visit [facility] MEDICINE [address] [place] [address] Zeinab Sykes MD [address] [place], [place] [phone] 10/03/2025 12:45 PM EDT Office Visit [facility] ADULT DENTAL 230 [place] [address] Ruben Hoguearis [address] [place] [address] documented as of this encounter Goals Goal Patient Goal Type Associated Problems Recent Progress Patient-Stated? Author Patient will manage their medication General On track( 023 11:18 AM EDT) No Citlali Armando, PharmD Note: Began medboxes. Goal achieved 11/19/22. Patient graduated from [facility]. documented as of this encounter Visit Diagnoses Not on filedocumented in this encounter Care Teams Arterial Embalmer Relationship Specialty Start Date End Date Evelyn Ledesma FNP PCP - General Family Medicine 03/15/22 04/25/23 Oralia Aguila MD [address] [place] [address] PCP - General Family Medicine 04/26/23 01/01/24 Zeinab Sykes MD [address] [place] [address] PCP - General Internal Medicine 01/02/24 Tomeka Martins Client AdvisorCourt Officer 10/27/23 Nikhilara Caring 11/06/24 documented as of this encounter
--- OUTSIDE RECORDS SUMMARY | 2025-04-09 16:03 | XMS_ITS | Encounter Summary ---
Author Organization [employer] Address [address] [place] [address] 7t [place] [address] Care Team Providers Care Progress Developer Name Role Phone Oralia Aguila MD Primary Care Provider [phone] Zeinab Sykes MD Primary Care Provider + Reason for Visit * Reason Onset Date Comments antibiotics pre med 07/19/2023 Encounter Details Date Type Department Care Team ([facility] st Contact Info) Description 07/19/2023 Telephone [facility] ADULT DENTAL [address] [place] [address] Stefany Anton, DDS [address] [place] [address] antibiotics pre med Social History Tobacco Use [...] Description 04/10/2025 8:00 AM EDT Office Visit [facility] ADULT DENTAL [address] [place] [address] Gay Thompson DDS [address] [place] [address] 05/28/2025 11:00 AM EST Office Visit [facility] MEDICINE [address] [place] [address] 06/05/2025 11:30 AM EST Office Visit [address] [address] Zeinab Sykes MD [address] [place] [address] 10/03/2025 12:45 PM EDT Office Visit [facility] ADULT DENTAL [address] [place] [address] Fabi Hogue [address] [place] [address] documented as of this encounter Goals Goal Patient Goal Type Associated Problems Recent Progress Patient-Stated? Author Patient will manage their medication General On track( 023 11:18 AM EDT) Citlali Ocampo, PharmD Note: Began medboxes. Goal achieved 11/19/22. Patient graduated from [facility]. documented as of this encounter Visit Diagnoses Not on filedocumented in this encounter Care Teams Progress Developer Relationship Specialty Start Date End Date Oralia Aguila MD [address] [place] [address] PCP - General Family Medicine 04/26/23 01/01/24 Zeinab Sykes MD [address] [place] [address] PCP - General Internal Medicine 01/02/24 Tomeka Martins Art Museum AideClerk Entry Level 10/27/23 [employer] 11/06/24 documented as of this encounter
--- OUTSIDE RECORDS SUMMARY | 2025-04-09 16:03 | XMS_ITS | Encounter Summary ---
Author Organization [employer] Address [address] [place] [address] 7 [place] [address] Care Team Providers Care Nuclear Medicine Tech Name Role Phone Evelyn Ledesma WIRE BORDER ASSEMBLER Primary Care Provider Oralia Dukes MD Primary Care Provider [phone] Zeinab Sykes MD Primary Care Provider + Encounter Details Date Type Department Care Team (Latest Contact Info) Description 12/21/2018 Abstract [facility] CONVERSIONS Dental, Provider, DDS Social [...] Care Team ( st Contact Info) Description 04/10/2025 8:00 AM EDT Office Visit [facility] ADULT DENTAL [address] [place] [address] Gay Thompson DDS [address] [place] [address] 05/28/2025 11:00 AM EST Office Visit [facility] MEDICINE [address] [place] [address] 06/05/2025 11:30 AM EST Office Visit [facility] MEDICINE [address] [place] [address] Zeinab Sykes MD [address] [place] [address] 10/03/2025 12:45 PM EDT Office Visit [facility] ADULT DENTAL [address] [place], [place] [phone] Fabi Hogue [address] [place], [place] [phone] documented as of this encounter Visit Diagnoses Not on filedocumented in this encounter Care Teams Nuclear Medicine Tech Relationship Specialty Start Date End Date Evelyn Ledesma FNP PCP - General Family Medicine 03/15/22 04/25/23 Oralia Aguila MD [address] [place], [place] [phone] PCP - General Family Medicine 04/26/23 01/01/24 Zeinab Sykes MD [address] [place], [place] [phone] PCP - General Internal Medicine 01/02/24 Tomeka Martins Assistant Auto Center ManagerRoll Skinner 10/27/23 [employer] 11/06/24 documented as of this encounter
--- OUTSIDE RECORDS SUMMARY | 2025-04-09 16:03 | XMS_ITS | Encounter Summary ---
Author Organization [employer] Address [address] [place] [address] 7t [place] [address] Care Team Providers Care Boilermaker Ship Name Role Phone Oralia Aguila MD Primary Care Provider [phone] Zeinab Sykes MD Primary Care Provider + Reason for Visit * Reason Onset Date Comments Med Refill 05/05/2023 Encounter Details Date Type Department Care Team (Late st Contact Info) Description 05/05/[address] [facility] MEDICINE [address] [place] [address] Oralia Aguila MD [address] [place] [address] Other intervertebral disc displacement, lumbar region Social [...] 325 MG tablet to besent to [facility] - [place], [place] - [address] [facility] documented in this encounter Plan of Treatment Upcoming Encounters Date Type Department Care Team (Late st Contact Info) Description 04/10/2025 8:00 AM EDT Office Visit [facility] ADULT DENTAL 230 [place] [address] Watkins-Caesar Gay, DDS [address] [place] [address] 05/28/2025 11:00 AM EST Office Visit [facility] MEDICINE [address] [place] [address], [place] [address] 06/05/2025 11:30 AM EST Office Visit [facility] MEDICINE [address] [place] [address], [place] [address] Zeinab Sykes MD [address] [place] [address] 10/03/2025 12:45 PM EDT Office Visit [facility] ADULT DENTAL [address] [place] [address] Mykel, Fabi [address] [place] [address] documented as of this encounter Goals Goal Patient Goal Type Associated Problems Recent Progress Patient-Stated? Author Patient will manage their medication General On track( 023 11:18 AM EDT) Citlali Ocampo, PharmD Note: Began medboxes. Goal achieved 11/19/22. Patient graduated from [facility]. documented as of this encounter Visit Diagnoses Diagnosis Other intervertebral disc displacement, lumbar region documented in this encounter Care Teams Boilermaker Ship Relationship Specialty Start Date End Date Oralia Aguila MD [facility] [place] [address] PCP - General Family Medicine 04/26/23 01/01/24 Zeinab Sykes MD [address] [place] [address] PCP - General Internal Medicine 01/02/24 Tomeka Martins Assault Amphibious Vehicle CrewmanIncoming Freight Clerk 10/27/23 [employer] 11/06/24 documented as of this encounter
--- OUTSIDE RECORDS SUMMARY | 2025-04-09 16:03 | XMS_ITS | Encounter Summary ---
Author Organization [employer] Address [address] [place] [address] 7 [place] [address] Care Team Providers Care Child Care Worker Name Role Phone Oralia Aguila MD Primary Care Provider [phone] Zeinab Sykes MD Primary Care Provider + Reason for Visit * Reason Comments Med Refill Encounter Details Date Type Department Care Team (Late st Contact Info) Description 09/21/2023 Refill [facility] MEDICINE [address] [place] [address] Oralia Aguila MD [address] [place] [address] Neuropathy Social History Tobacco Use Types Packs/Day [...] 8:00 AM EDT Office Visit [facility] ADULT DENTAL [address] [place] [address] Gay Thompson DDS [address] [place], [place] [phone] 05/28/2025 11:00 AM EST Office Visit [facility] MEDICINE [address] [place] [address] 06/05/2025 11:30 AM EST Office Visit [facility] MEDICINE [address] [place] [address] Zeinab Sykes MD [address] [place] [address] 10/03/2025 12:45 PM EDT Office Visit [facility] ADULT DENTAL [address] [place] [address] Ruben Hoguearis [address] [place], [place] [phone] documented as of this encounter Goals Goal Patient Goal Type Associated Problems Recent Progress Patient-Stated? Author Patient will manage their medication General On track( 023 11:18 AM EDT) Citlali Ocamop, PharmD Note: Began medboxes. Goal achieved 11/19/22. Patient graduated from [facility]. documented as of this encounter Visit Diagnoses Diagnosis Neuropathy Mononeuritis of unspecified site documented in this encounter Care Teams Child Care Worker Relationship Specialty Start Date End Date Oralia Aguila MD [address] [place] [address] PCP - General Family Medicine 04/26/23 01/01/24 Zeinab Sykes MD [address] [place] [address] PCP - General Internal Medicine 01/02/24 Tomeka Martins Quality Assurance Project ManagerIncinerator Plant Supervisor 10/27/23 [employer] 11/06/24 documented as of this encounter
--- OUTSIDE RECORDS SUMMARY | 2025-04-09 16:03 | XMS_ITS | Encounter Summary ---
Author Organization [employer] Address [address] [facility] 7t [place] [address] Care Team Providers Care Bottom Ironer Name Role Phone Evelyn LedesmaP Primary Care Provider Oralia Dukes MD Primary Care Provider [phone] eZinab Sykes MD Primary Care Provider + Reason for Visit * Reason Onset Date Comments Referral 02/03/2023 Renewal Encounter Details Date Type Department Care Team (Late st Contact Info) Description 02/03/2023 Telephone [facility] MEDICINE [address] [place] [address] Evelyn Ledesma FNP Referral (Renewal ) Social [...] Description 04/10/2025 8:00 AM EDT Office Visit [facility] ADULT DENTAL [address] [place] [address] Roland-Gay Maynard, DDS [address] [place] [address] 05/28/2025 11:00 AM EST Office Visit [facility] MEDICINE [address] [place] [address] 06/05/2025 11:30 AM EST Office Visit [address] [address] Zeinab Sykes MD [address] [place] [address] 10/03/2025 12:45 PM EDT Office Visit [facility] ADULT DENTAL [address] [place] [address] Mykel, Fabi [address] [place] [address] documented as of this encounter Goals Goal Patient Goal Type Associated Problems Recent Progress Patient-Stated? Author Patient will manage their medication General On track( 023 11:18 AM EDT) Citlali Ocampo PharmD Note: Began medboxes. Goal achieved 11/19/22. Patient graduated from [facility]. documented as of this encounter Visit Diagnoses Not on filedocumented in this encounter Care Teams Bottom Ironer Relationship Specialty Start Date End Date Evelyn Ledesma FNP PCP - General Family Medicine 03/15/22 04/25/23 Oralia Aguila MD [address] [place] [address] PCP - General Family Medicine 04/26/23 01/01/24 Zeinab Sykes MD [address] [place] [address] PCP - General Internal Medicine 01/02/24 Tomeka Martins Photogrammetric Stereo CompilerContract Project Manager 10/27/23 [employer] 11/06/24 documented as of this encounter
--- OUTSIDE RECORDS SUMMARY | 2025-04-09 16:03 | XMS_ITS | Encounter Summary ---
Author Organization [employer] Address [address] [place] [address] 7t [place] [address] Care Team Providers Care Rubber Insulator Name Role Phone Oralia Aguila MD Primary Care Provider [phone] Zeinab Sykes MD Primary Care Provider + Reason for Visit * Reason Comments Med Refill Encounter Details Date Type Department Care Team (Late st Contact Info) Description 07/06/2023 Refill [facility] [address] [place] [address] Bryn Franklin MD [address] [place] [address] Social History Tobacco Use Types Packs/Day Years [...] Description 04/10/2025 8:00 AM EDT Office Visit [facility] ADULT DENTAL [address] [place] [address] Gay Thompson DDS [address] [place] [address] 05/28/2025 11:00 AM EST Office Visit [facility] MEDICINE [address] [place] [address] 06/05/2025 11:30 AM EST Office Visit [facility] MEDICINE [address] [place] [address] Zeinab Sykes MD [address] [place] [address] 10/03/2025 12:45 PM EDT Office Visit [facility] ADULT DENTAL [address] [place], [place] [phone] Fabi Hogue [address] [place] [address] documented as of this encounter Goals Goal Patient Goal Type Associated Problems Recent Progress Patient-Stated? Author Patient will manage their medication General On track( 023 11:18 AM EDT) Citlali Ocampo, PharmD Note: Began medboxes. Goal achieved 11/19/22. Patient graduated from [facility]. documented as of this encounter Visit Diagnoses Not on filedocumented in this encounter Care Teams Rubber Insulator Relationship Specialty Start Date End Date Oralia Aguila MD [address] [place] [address] PCP - General Family Medicine 04/26/23 01/01/24 Zeinab Sykes MD [address] [place] [address] PCP - General Internal Medicine 01/02/24 Tomeka Martins Home Health Clinical SupervisorPreventive Medicine Physician 10/27/23 [employer] 11/06/24 documented as of this encounter
--- OUTSIDE RECORDS SUMMARY | 2025-04-09 16:03 | XMS_ITS | Encounter Summary ---
Author Organization [employer] Address [address] [place] [address] 7 [place] [address] Care Team Providers Care Farm Implement Engine Mechanic Name Role Phone Evelyn Ledesma LICENSE EXAMINER Primary Care Provider Oralia Dukes MD Primary Care Provider [phone] Zeinab Sykes MD Primary Care Provider + Encounter Details Date Type Department Care Team (Latest Contact Info) Description 10/30/2020 Abstract [facility] CONVERSIONS Dental, Provider, DDS Social [...] 04/10/2025 8:00 AM EDT Office Visit [facility] ADULT DENTAL [address] [place] [address] Gay Thompson, DDS [address] [place] [address] 05/28/2025 11:00 AM EST Office Visit [facility] MEDICINE [address] [place] [address] 06/05/2025 11:30 AM EST Office Visit [facility] MEDICINE [address] [place] [address] Zeinab Sykes MD [address] [place] [address] [place] [phone] 10/03/2025 12:45 PM EDT Office Visit [facility] ADULT DENTAL [address] [place], [place] [phone] Fabi Hogue [address] [place], [place] [phone] documented as of this encounter Visit Diagnoses Not on filedocumented in this encounter Care Teams Farm Implement Engine Mechanic Relationship Specialty Start Date End Date Evelyn Ledesma FNP PCP - General Family Medicine 03/15/22 04/25/23 Oralia Aguila MD [address] [place] [address] [phone] PCP - General Family Medicine 04/26/23 01/01/24 Zeinab Sykes MD [address] [place] [address] [phone] PCP - General Internal Medicine 01/02/24 Tomeka Martins Klystrom Tube TesterApplications Sales Consultant 10/27/23 [employer] 11/06/24 documented as of this encounter
--- OUTSIDE RECORDS SUMMARY | 2025-04-09 16:03 | XMS_ITS | Clinical Summary ---
Author Organization [facility] Address [address] [place] [address] Care Team Providers Care Respiratory Supervisor Name Role Phone Meryl Montes Primary Care Provider Surgical History Surgery Date Site/Laterality Comments BREAST REDUCTION PROCEDURE: ID BREAST REDUCTION BACK SURGERY PROCEDURE: HISTORICAL BACK SURGERY; COMMENT: L4-5 rt L5-S1 decomp 05/26/18 Medical History Medical History Date Comments Asthma DX:Asthma Diabetes mellitus type 2, co ntrolled, with complications (CMS/HCC V24, CMS/HCC V28) DX:Diabetes mellitus type 2, controlled, with complications ([facility]) Essential hypertension DX:Essent ial hypertension Depressive [...] age to complete this topic Care Teams Respiratory Supervisor Relationship Specialty Start Date End Date Meryl Montes [address] [place] [phone] PCP - General 05/07/22
--- OUTSIDE RECORDS SUMMARY | 2025-04-09 16:03 | XMS_ITS | Encounter Summary ---
Author Organization [employer] Address [address] [facility] 7t [place] [address] Care Team Providers Care Talent Acquisition Sourcer Name Role Phone Zeinab Sykes MD Primary Care Provider + Reason for Visit * Reason Onset Date Comments Med Refill 07/16/2024 Encounter Details Date Type Department Care Team ([facility] Contact Info) Description 07/16/2024 Telephone [facility] MEDICINE [address] [place], [place] [phone] Zeinab Sykes MD [address] [place] [address] Med Refill Social History Tobacco Use Types [...] 10 MG capsule To be sent to: [facility] pharmacy documented in this encounter Plan of Treatment Upcoming Encounters Date Type Department Care Team (Late st Contact Info) Description 04/10/2025 8:00 AM EDT Office Visit [facility] ADULT DENTAL [address] [place] [address] Gay Thompson, DDS [address] [place] [address] 05/28/2025 11:00 AM EST Office Visit [facility] MEDICINE [address] [place] [address] 06/05/2025 11:30 AM EST Office Visit [facility] MEDICINE [address] [place] [address] Zeinab Sykes MD [address] [place] [address] 10/03/2025 12:45 PM EDT Office Visit [facility] ADULT DENTAL [address] [place] [address] Fabi Hogue 230 [place] [address] documented as of this encounter Goals Goal Patient Goal Type Associated Problems Recent Progress Patient-Stated? Author Patient will manage their medication General On track( 023 11:18 AM EDT) Citlali Ocampo PharmD Note: Began medboxes. Goal achieved 11/19/22. Patient graduated from [facility]. documented as of this encounter Visit Diagnoses Not on filedocumented in this encounter Additional Health Concerns Assessment Noted Time PHQ-9 Depression Total Score: 18 024 1:46 PM EDT documented as of this encounter Care Teams Talent Acquisition Sourcer Relationship Specialty Start Date End Date Zeinab Sykes MD [address] [place] [address] PCP - General Internal Medicine 01/02/24 Tomeka Martins Integrative Medicine PhysicianMud Tank Operator 10/27/23 [employer] 11/06/24 documented as of this encounter
--- OUTSIDE RECORDS SUMMARY | 2025-04-09 16:03 | XMS_ITS | Encounter Summary ---
Author Organization [employer] Address [address] [facility] [address] 7t [place] [address] Care Team Providers Care Psychiatric Cns Name Role Phone Zeinab Sykes MD Primary Care Provider + Encounter Details Date Type Department Care Team ([facility] st Contact Info) Description 09/20/2024 Orders Only [facility] [address] [place] [address] Provider, MD Parag Social History Tobacco Use [...] Description 04/10/2025 8:00 AM EDT Office Visit [facility] ADULT DENTAL [address] [place] [address] Gay Thompson DDS [address] [place] [address] 05/28/2025 11:00 AM EST Office Visit [facility] MEDICINE [address] [place] [address] 06/05/2025 11:30 AM EST Office Visit [facility] MEDICINE [address] [place] [address] Zeinab Sykes MD 230 [place] [address] 10/03/2025 12:45 PM EDT Office Visit [facility] ADULT DENTAL [address] [place] [address] Fabi Hogue [address] [place] [address] documented as of this encounter Goals Goal Patient Goal Type Associated Problems Recent Progress Patient-Stated? Author Patient will manage their medication General On track( 023 11:18 AM EDT) Citlali Ocampo, Anoop Note: Began medboxes. Goal achieved 11/19/22. Patient graduated from [facility]. documented as of this encounter [...] PM EDT Narrative 10/19/2024 4:14 PM EDT [place] [address] [address] Scan Report Signed Patient: Rhonda Fernández MR# : [id number] : 1960 Acct:[id number] Age/Sex: 63 / F ADM Date: 10/18/24 Loc: HO.CT Attending Dr: Nolberto Quigley MD Ordering Physician: Nolberto Quigley MD Date of Service: 10/18/24 Procedure(s): CT abdomen pelvis w IV con Accession Number(s): [id number] cc: Zeinab Sykes MD; Nolberto Quigley MD Report Number: [id number]: Total DLP = 538.00 mGy-cm CLINICAL HISTORY: [...] OV> 10/19/24 1614 DD/ 1613 TD/TT: 10/19/24 161 Ditching Machine Operator: Procedure Note Donotsaludinterpreter, Image - 10/19/[address] [place] [address] [address] Scan Report Signed Patient: Karla Fernández# : [id number] : 1960Acct:[id number] Age/Sex: 63 / FADM Date: 10/18/24 Loc: HO.CT Attending Dr: Nolberto Quigley MD Ordering Physician: Nolberto Quigley MD Date of Service: 10/18/24 Procedure(s): CT abdomen pelvis w IV con Accession Number(s): [id number] cc: Zeinab Sykes MD; Nolberto Quigley MD Report Number: [id number]: Total DLP = 538.00 mGy-cm CLINICAL HISTORY: [...] OV> 10/19/24 1614 DD/ 1613 TD/TT: 10/19/24 161 Ditching Machine Operator: [facility] External Provider IMG CT PROCEDURES Final Result * XR Wrist 3+ Views Left (10/16/2024 5:26 PM EDT) Anatomical Region Laterality Modality Upper Extremities, Wrist Left Radiogr aphic Imaging 10/16/2024 5:26 PM EDT Narrative 10/16/2024 5:28 PM EDT [address] [address] XRay Report Signed Patient: Rhonda Fernández MR# : [id number] : 1960 Acct:[id number] Age/Sex: 63 / F ADM Date: 10/16/24 Loc: HO.ED Attending Dr: Ordering Physician: Lanette Laura PA-C Date of Service: 10/16/24 Procedure(s): XR wrist LT min 3V Accession Number(s): [id number] cc: Zeinab Sykes MD; Lanette Laura PA-C [...] by Enedina Beltran MD in OV> 10/16/24 172 DD/ 172 TD/TT: 10/16/24 172 Ditching Machine Operator: Procedure Note Donzacter, Image - 10/16/[address] [address] XRay Report Signed Patient: Spenser FernándezR# : [id number] : 1960Acct:[id number] Age/Sex: 63 / FADM Date: 10/16/24 Loc: HO.ED Attending Dr: Ordering Physician: Lanette Laura PA-C Date of Service: 10/16/24 Procedure(s): XR wrist LT min 3V Accession Number(s): [id number] cc: Zeinab Sykes MD; Lanette Laura PA-C [...] in OV> 10/16/241726 DD/ 25 TD/TT: 10/16/241725 Ditching Machine Operator: us [facility] External Provider IMG XR PROCEDURES Final Result * XR Hip left with Pelvis 1 view (10/16/2024 5:24 PM EDT) Anatomical Region Laterality Modality Lower Extremities, Hip Bilateral Radiograp hic Imaging 10/16/2024 5:24 PM EDT Narrative 10/16/2024 5:26 PM EDT [address] [address] XRay Report Signed Patient: Rhonda Fernández MR# : [id number] : 1960 Acct:[id number] Age/Sex: 63 / F ADM Date: 10/16/24 Loc: HO.ED Attending Dr: Ordering Physician: Lanette Laura PA-C Date of Service: 10/16/24 Procedure(s): XR hip LT w PEL1V Accession Number(s): [id number] cc: Zeinab Sykes MD; Lanette Laura PA-C [...] in OV> 10/16/241724 DD/ 23 TD/TT: 10/16/241723 Ditching Machine Operator: Procedure Note Donotuseinterpreter, Image - 10/16/[address] [address] XRay Report Signed Patient: Spenser FernándezR# : [id number] : 1960Acct:[id number] Age/Sex: 63 / FADM Date: 10/16/24 Loc: HO.ED Attending Dr: Ordering Physician: Lanette Laura PA-C Date of Service: 10/16/24 Procedure(s): XR hip LT w PEL1V Accession Number(s): [id number] cc: Zeinab Sykes MD; Lanette Laura PA-C [...] by Enedina Beltran MD in OV> 10/16/24 172 DD/ 172 TD/TT: 10/16/241723 Ditching Machine Operator: [facility] External Provider IMG XR PROCEDURES Final Result * XR Elbow 3+ Views Left (10/16/2024 5:23 PM EDT) Anatomical Region Laterality Modality Upper Extremities, Elbow Left Radiogr aphic Imaging 10/16/2024 5:23 PM EDT Narrative 10/16/2024 5:25 PM EDT [address] [address] XRay Report Signed Patient: Rhonda Fernández MR# : [id number] : 1960 Acct:[id number] Age/Sex: 63 / F ADM Date: 10/16/24 Loc: HO.ED Attending Dr: Ordering Physician: Lanette Laura PA-C Date of Service: 10/16/24 Procedure(s): XR elbow LT min 3V Accession Number(s): [id number] cc: Zeinab Sykes MD; Lanette Laura PA-C [...] in OV> 10/16/241723 DD/ 22 TD/TT: 10/16/241722 Ditching Machine Operator: Procedure Note Donotuseinterpreter, Image - 10/16/2024 [place] [address] XRay Report Signed Patient: Karla Fernández# : [id number] : 1960Acct:[id number] Age/Sex: 63 / FADM Date: 10/16/24 Loc: HO.ED Attending Dr: Ordering Physician: Lanette Laura PA-C Date of Service: 10/16/24 Procedure(s): XR elbow LT min 3V Accession Number(s): [id number] cc: Zeinab Sykes MD; Lanette Laura PA-C [...] in OV> 10/16/241723 DD/ 22 TD/TT: 10/16/241722 Ditching Machine Operator: [facility] External Provider IMG XR PROCEDURES Final Result * CT Cervical Spine w/o Contrast (10/16/2024 5:18 PM EDT) Anatomical Region Laterality Modality Spine, C-spine Computed Tomogra phy 10/16/2024 5:18 PM EDT Narrative 10/16/2024 5:19 PM EDT [address] [address] [address] Scan Report Signed Patient: Rhonda Fernández MR# : [id number] : 1960 Acct:[id number] Age/Sex: 63 / F ADM Date: 10/16/24 Loc: HO.ED Attending Dr: Ordering Physician: Lanette Laura PA-C Date of Service: 10/16/24 Procedure(s): CT cervical spine wo IV con Accession Number(s): [id number] cc: Zeinab Sykes MD; Lanette Laura PA-C Report Number: [id number]: Total DLP = 605.00 mGy-cm CLINICAL HISTORY: [...] signed by Melania Raza MD in OV> 10/16/249 DD/ 1718 TD/TT: 10/16/241717 Ditching Machine Operator: Procedure Note Donotuseinterpreter, Image - 10/16/[address] [address] [address] Scan Report Signed Patient: Spenser FernándezR# : [id number] : 1960Acct:[id number] Age/Sex: 63 / FADM Date: 10/16/24 Loc: HO.ED Attending Dr: Ordering Physician: Lanette Laura PA-C Date of Service: 10/16/24 Procedure(s): CT cervical spine wo IV con Accession Number(s): [id number] cc: Zeinab Sykes MD; Lanette Laura PA-C Report Number: [id number]: Total DLP = 605.00 mGy-cm CLINICAL HISTORY: [...] signed by Melania Raza MD in OV> 10/16/249 DD/ 17 TD/TT: 10/16/241717 Ditching Machine Operator: [facility] External Provider IMG CT PROCEDURES Final Result * Hm Colonoscopy (11/05/2020 11:36 AM EDT) Historical Provider HEALTH MAINTENANCE Final Result documented in this encounter Visit Diagnoses Not on filedocumented in this encounter Additional Health Concerns Assessment Noted Time PHQ-9 Depression Total Score: 22 08/15/ 025 10:31 AM EST documented as of this encounter Care Teams Psychiatric Cns Relationship Specialty Start Date End Date Zeinab Sykes MD [address] [place] [address] PCP - General Internal Medicine 01/02/24 Tomeka Martins Supply Chain SpecialistCertified Surgical Tech/First Assistant 10/27/23 [employer] 11/06/24 documented as of this encounter
[2025-04-22 13:59] VITALS: BMI 35.1
--- NOTE | 2025-04-23 12:50 | HO.ANESPROP2 ---
Documented by User: Loyda Guillory NP 04/23/25 12:50 HPI - Anesthesia Eval Consult details Narrative: 64 yr old female for colonoscopy Asthma: on ICS/LABA, prn BENIGNO PMFSH Active Problems Active Problems: All Active Problems Rectal leakage (Acute) Bilateral wrist pain (Acute) Rectal spasm (Acute) Hepatic steatosis (Acute) Pelvic cramping (Acute) Uterine myoma (Acute) Rosacea (Acute) Osteoarthritis of hands, bilateral (Acute) Varicose veins of left lower extremity with inflammation (Acute) Adenomatous colon polyp (Acute) Environmental allergies (Acute) Primary osteoarthritis of knees, bilateral (Acute) Obesity (Acute) Diabetes mellitus (Acute) Hypertension (Acute) Elevated cholesterol (Acute) Asthma (Acute) Past Medical History Medical History (Updated 04/22/25 @ 13:56 by Josephine Cardoza RN) Irritable bowel syndrome with constipation Environmental allergies Hypertension Hemorrhoids Diverticulosis large intestine w/o perforation or abscess w/o bleeding Encounter for screening colonoscopy Epigastric pain Gastric outlet obstruction Complications of bariatric procedures Elevated cholesterol Full dentures Asthma Palpitations Diabetes mellitus Obesity Primary osteoarthritis of knees, bilateral Family History Family History Mother Hx of acute arthritis Father History of Parkinson's disease Family history of problems with anesthesia: No Surgical History Surgical History (Updated 04/22/25 @ 13:54 by Josephine Cardoza RN) H/O perineoplasty H/O bariatric surgery History of bladder surgery History of total bilateral knee replacement Hx of colonoscopy Hx of reduction mammoplasty Hx of tonsillectomy History of H/O Spinal surgery History of Problems with Anesthesia: No Social History Social History Household Members Other:: Daughter Housing: House Are you a primary personal care aide to a significant other at home: No Do you presently have visiting nurse or other home services: No Alcohol intake: never Patient Tobacco Use Status: Never used Tobacco Advance Directives: No Advance Directives Information Provided: Yes Current occupational status: disabled Current occupation: rt handed Sexual orientation: Straight/Heterosexual Gender identity: Female Meds Allergies Allergy/AdvReac Type Severity Reaction Status Date / Time pineapple (PINEAPPLE) Allergy Intermediate TONGUE Verified 04/22/25 13:57 SWELLS latex Allergy Unknown Unknown Verified 04/22/25 13:57 Home Medications ?Medication ?Instructions ?Recorded ?Confirmed ?Last Taken ?Type amlodipine 10 mg-valsartan 320 mg 1 tab PO DAILY 07/01/22 04/22/25 06/08/24 History tablet betamethasone valerate 0.1 % lotion 1 appl topical BID 07/01/22 04/22/25 Unknown History cetirizine 10 mg tablet 10 mg PO DAILY 07/01/22 04/22/25 Unknown History chlorthalidone 25 mg tablet 12.5 mg PO DAILY 07/01/22 04/22/25 Unknown History lancets 33 gauge (TRUEplus Lancets) #100 ea 07/01/22 05/25/23 Unknown History naloxone 4 mg/actuation nasal spray 1 spray intranasal 07/01/22 05/25/23 Unknown History lidocaine 5 % topical patch 1 patch topical DAILY 12/05/23 04/22/25 Unknown History (Lidoderm) gabapentin 300 mg capsule 300 mg PO TID 06/08/24 04/22/25 Unknown History mirabegron 25 mg tablet,extended 25 mg PO QAM 07/26/24 04/22/25 Unknown History release 24 hr (Myrbetriq) atorvastatin 20 mg tablet 20 mg PO BEDTIME 01/11/25 04/22/25 Unknown History celecoxib 100 mg capsule 100 mg PO BID 01/11/25 04/22/25 Unknown History duloxetine 40 mg capsule,delayed 40 mg PO BID 01/11/25 04/22/25 Unknown History release hydroxyzine HCl 25 mg tablet 25 - 50 mg PO BEDTIME PRN insomnia 01/11/25 04/22/25 Unknown History oxycodone-acetaminophen 5 mg-325 1 tab PO Q6H PRN severe pain 01/11/25 Unknown History mg tablet melatonin 5 mg tablet 10 mg PO BEDTIME 03/26/25 04/22/25 Unknown History nystatin 100,000 unit/gram topical topical BID 03/26/25 Unknown History ointment albuterol sulfate 2.5 mg/3 mL 2.5 mg inhalation Q4H PRN wheezing 04/22/25 04/22/25 Unknown History (0.083 %) solution for nebulization albuterol sulfate 90 mcg/actuation 2 puff inhalation Q4-6H PRN 04/22/25 04/22/25 Unknown History aerosol inhaler Shortness Of Breath Exam Height,Weight and Vital Signs: Height 5 ft 3 in Weight 89.811 kg Assessment and Plan Final Anesthetic Review Family History of Problems with Anesthesia: No History of Problems with Anesthesia: No Documented by User: Sultana Wilkins MD 04/24/25 09:12 [facility] Past Medical History Medical History (Updated 04/22/25 @ 13:56 by Josephine Cardoza, RN) Irritable bowel syndrome with constipation Environmental allergies Hypertension Hemorrhoids Diverticulosis large intestine w/o perforation or abscess w/o bleeding Encounter for screening colonoscopy Epigastric pain Gastric outlet obstruction Complications of bariatric procedures Elevated cholesterol Full dentures Asthma Palpitations Diabetes mellitus Obesity Primary osteoarthritis of knees, bilateral Family History Family History Mother Hx of acute arthritis Father History of Parkinson's disease Surgical History Surgical History (Updated 04/22/25 @ 13:54 by Josephine Cardoza RN) H/O perineoplasty H/O bariatric surgery History of bladder surgery History of total bilateral knee replacement Hx of colonoscopy Hx of reduction mammoplasty Hx of tonsillectomy History of H/O Spinal surgery Social History Social History Household Members Other:: Daughter Housing: House Are you a primary personal care aide to a significant other at home: No Do you presently have visiting nurse or other home services: No Alcohol intake: never Patient Tobacco Use Status: Never used Tobacco Advance Directives: No Advance Directives Information Provided: Yes Current occupational status: disabled Current occupation: rt handed Sexual orientation: Straight/Heterosexual Gender identity: Female Meds Allergies Allergy/AdvReac Type Severity Reaction Status Date / Time pineapple (PINEAPPLE) Allergy Intermediate TONGUE Verified 04/22/25 13:57 SWELLS latex Allergy Unknown Unknown Verified 04/22/25 13:57 Home Medications ?Medication ?Instructions ?Recorded ?Confirmed ?Last Taken ?Type amlodipine 10 mg-valsartan 320 mg 1 tab PO DAILY 07/01/22 04/22/25 06/08/24 History tablet betamethasone valerate 0.1 % lotion 1 appl topical BID 07/01/22 04/22/25 Unknown History cetirizine 10 mg tablet 10 mg PO DAILY 07/01/22 04/22/25 Unknown History chlorthalidone 25 mg tablet 12.5 mg PO DAILY 07/01/22 04/22/25 Unknown History lancets 33 gauge (TRUEplus Lancets) #100 ea 07/01/22 05/25/23 Unknown History naloxone 4 mg/actuation nasal spray 1 spray intranasal 07/01/22 05/25/23 Unknown History lidocaine 5 % topical patch 1 patch topical DAILY 12/05/23 04/22/25 Unknown History (Lidoderm) gabapentin 300 mg capsule 300 mg PO TID 06/08/24 04/22/25 Unknown History mirabegron 25 mg tablet,extended 25 mg PO QAM 07/26/24 04/22/25 Unknown History release 24 hr (Myrbetriq) atorvastatin 20 mg tablet 20 mg PO BEDTIME 01/11/25 04/22/25 Unknown History celecoxib 100 mg capsule 100 mg PO BID 01/11/25 04/22/25 Unknown History duloxetine 40 mg capsule,delayed 40 mg PO BID 01/11/25 04/22/25 Unknown History release hydroxyzine HCl 25 mg tablet 25 - 50 mg PO BEDTIME PRN insomnia 01/11/25 04/22/25 Unknown History oxycodone-acetaminophen 5 mg-325 1 tab PO Q6H PRN severe pain 01/11/25 Unknown History mg tablet melatonin 5 mg tablet 10 mg PO BEDTIME 03/26/25 04/22/25 Unknown History nystatin 100,000 unit/gram topical topical BID 03/26/25 Unknown History ointment albuterol sulfate 2.5 mg/3 mL 2.5 mg inhalation Q4H PRN wheezing 04/22/25 04/22/25 Unknown History (0.083 %) solution for nebulization albuterol sulfate 90 mcg/actuation 2 puff inhalation Q4-6H PRN 04/22/25 04/22/25 Unknown History aerosol inhaler Shortness Of Breath Exam Airway Mallampati Class: II TM Dist: >3cm Neck ROM: Full Denture: Upper Partial: Lower Heart: rrr Lungs: cta Assessment and Plan Final Anesthetic Review NPO: Yes ASA Class: III Final Preanesthetic Review: No Changes in Pt Med Stat, Meds/Allgs Chart Reviewed and Consent Obtained/Reviewed Patient Risk: Low Procedure Risk: Low Anesthetic Plan Anesthetic Plan: MAC: Disposition: Standard PACU
[2025-04-24] MEDS: Lactated Ringers 1,000 ML 100 ML IVCONT (09:01)
[2025-04-24 09:20] VITALS: BP 166/73; PULSE 69; RESP 18; TEMP 36.7; O2SAT 96
[2025-04-24 09:23] VITALS: BMI 35.8
--- NOTE | 2025-04-24 09:40 | P.HPSUR_ITS ---
Pre-Procedural Eval Section A - 24 Hr Update-Section A only Date of Service: 04/24/25 Section B - Complete if H&P > 30 days Chief Complaint: Benign neoplasm of colon, unspecified Relevant Family History (Specify if Yes): No Relevant Social History: None Present Medications: see Short Stay Collaborative assessment Medical History: Significant History (Irritable bowel syndrome with constipation Environmental allergies Hypertension Primary osteoarthritis of left knee Primary osteoarthritis of right knee Hemorrhoids Diverticulosis large intestine w/o perforation or abscess w/o bleeding Encounter for screening colonoscopy Preoperative cardiovascular ) History of Previous Operations: Relevant previous surgery/procedure and date(s) (H/O perineoplasty H/O bariatric surgery Status post total right knee replacement History of bladder surgery History of total bilateral knee replacement Hx of colonoscopy Hx of reduction mammoplasty Hx of tonsillectomy History of H/O Spinal surgery) Allergies: Allergies Allergy/AdvReac Type Severity Reaction Status Date / Time pineapple (PINEAPPLE) Allergy Intermediate TONGUE Verified 04/24/25 09:24 SWELLS latex Allergy Unknown Unknown Verified 04/24/25 09:24 Review of Systems Sugical H&P ROS: Negative: Constitution, Cardiovascular, Respiratory, Neurological, Psychiatric, Hem-Onc, Allergic/Immunologic, Gastrointestinal, Genitourinary, Musculoskeletal, Integumentary, Endocrine and Eyes/Ears/Nose/Thr oat Exam Surgical H&P Exam: Normal: HEENT, Normal: Heart, Normal: Lungs, Normal: Extremities, Normal: Abdomen, Normal: Skin and Normal: Neurological Plan Diagnosis/Plan: Unchanged I have reviewed the history and physical and performed a pertinent physical examination on my patient. No changes have occurred unless specified. Time Spent With Patient Time: Total time managing care of this patient today ____ minutes.
--- NOTE | 2025-04-24 10:11 | P.OPN-COLO_ITS ---
Colonoscopy Operative Note Operative Note Date of Service: 04/24/25 Narrative: Operative Information Procedure Description: Colonoscopy Indication: screening Anesthesia: MAC COLONOSCOPY Instrument: Olympus variable stiffness pediatric scope 190L Colonoscopy Monitoring: Vital signs and clinical assessment, continuous EKG monitoring, Pulse oximetry, Carbon Dioxide monitoring and blood pressure monitoring were done throughout the procedure. Colon withdrawal time was 13 minutes. Procedure: The patient was placed in the left lateral decubitis position and pre-procedure medications were administered. After a digital rectal examination of the ano-rectum, the video colonoscope was inserted into the rectum and advanced through the colon to the cecum/TI. The colonoscope was slowly withdrawn in a retrograde panoramic fashion and the colon mucosa was carefully examined including a retroflexed view of the rectum. Findings and interventions are described below. Procedure Difficulty: easy Findings: Terminal Ileum-normal Cecum:normal Ascending Colon: 10 mm sessile polyp lifted with eleview and removed with cold snare Transverse Colon -normal Descending Colon:normal Sigmoid Colon: moderate diverticulosis Rectum: Retroflexion with small internal hemorrhoids seen, grade I Anorectum - normal Intervention: cold snare and eleview Colon preparation: Middleton Bowel Preparation Scale Right colon; 2 Transverse colon: 2 Left colon; 2 (0 = Unprepared colon segment with mucosa not seen due to solid stool that cannot be cleared. 1 = Portion of mucosa of the colon segment seen, but other areas of the colon segment not well seen due to staining, residual stool and/or opaque liquid. 2 = Minor amount of residual staining, small fragments of stool and/or opaque liquid, but mucosa of colon segment seen well. 3 = Entire mucosa of colon segment seen well with no residual staining, small fragments of stool or opaque liquid) Impression and Post Procedure Diagnosis: diverticulosis colon polyp x 1 internal hemorrhoids Plan: High fiber diet leaflet Avoid straining at stool, epsom salts and sitz bath, anusol supps or cream Repeat Colonoscopy in 5 years due to polyp or earlier if clinically indicated Above findings were reviewed with the patient and relevant handouts were provided if indicated.
[2025-04-24 10:18] VITALS: BP 108/55; PULSE 70; RESP 16; TEMP 36.2; O2SAT 93
[2025-04-24 10:33] VITALS: BP 113/60; PULSE 68; RESP 16; O2SAT 95
[2025-04-24 10:52] VITALS: BP 115/70; PULSE 67; RESP 16; TEMP 36.3; O2SAT 97
== END 2025-04-24 11:30 | disposition home or self-care (01) ==
PROVIDERS: PCP Internal Medicine; Visit Provider Internal Medicine Gastroenterology
PROC: 0DJD8ZZ Inspection of Lower Intestinal Tract, Via Natural or Artificial Opening Endoscopic (ICD-10-PCS; CPT 45378; principal; 2025-04-24 11:00)
DX: Z12.11 Encounter for screening for malignant neoplasm of colon (principal); D12.2 Benign neoplasm of ascending colon; K57.30 Diverticulosis of large intestine without perforation or abscess without bleeding; K64.0 First degree hemorrhoids; K59.4 Anal spasm; K58.1 Irritable bowel syndrome with constipation
CPT/HCPCS: 45385; 88305; J2003; J2704

== ENCOUNTER → 2025-04-24 08:54 | Outpatient (BNV) | payer OTHER, SELFPAY | PROVIDERS: PCP Internal Medicine; Visit Provider Internal Medicine Gastroenterology | DX: Z12.11 Encounter for screening for malignant neoplasm of colon (principal); D12.2 Benign neoplasm of ascending colon; K57.30 Diverticulosis of large intestine without perforation or abscess without bleeding; K64.0 First degree hemorrhoids | CPT/HCPCS: 45381; 45385 ==

== ENCOUNTER 2025-05-14 11:40 | Outpatient (REF) | payer OTHER, SELFPAY ==
--- OUTSIDE RECORDS SUMMARY | 2025-05-14 15:20 | XMS_ITS | Encounter Summary ---
Author Organization [employer] Address [address] [facility] 7 [place] [address] Care Team Providers Care Manufacturing Laborer Name Role Phone Zeinab Sykes MD Primary Care Provider + Reason for Visit * Reason Comments UTI Encounter Details Date Type Department Care Team ([facility] Contact Info) Description 05/14/2025 3:20 PM EDT Office Visit [facility] [address] [place] [address] Bjorn Melendez CNP [address] [place] [address] Complicated UTI (urinary tract infection) (Primary Dx); UTI symptoms Social History Tobacco Use Types Packs/Day [...] Sign Reading Time Taken Comments Blood Pressure 145/85 05/14/2025 2:59 PM EDT Pulse 94 05/14/2025 2:59 PM EDT Temperature 36.6 C (97.9 F) 05/14/2025 2:59 PM EDT Respiratory Rate 18 05/14/2025 2:59 PM EDT Oxygen Saturation 96% 05/14/2025 2:59 PM EDT Inhaled Oxygen Concentration - - Weight 93 kg (205 lb) 05/14/2025 2:59 PM EDT Height - - Body Mass Index 36.31 05/06/2025 10:23 AM EDT documented in this encounter Progress Notes * Bjorn Melendez CNP - 05/14/2025 3:20 PM EDT Subjective Patient ID: Rhonda Mclaughlin is a 64 y.o. female who presents for UTI. HPI Pt reports she was recently treated for UTI and completed antibiotics however she is endorsing someongoing pelvic pain and flank pain. She denies frequency, urgency, hematuria, fever or chills. She denies n/v/d Review of Systems Constitutional: Negative for chills and fever. Gastrointestinal: Negative for constipation, diarrhea, nausea and vomiting. Genitourinary: Positive for flank pain and pelvic pain. Negative for decreased urine volume, difficulty urinating, dysuria, frequency, hematuria and urgency. Objective Vitals: 05/14/25 1459 BP: (!) 145/85 Pulse: 94 Resp: 18 Temp: 97.9 ??F (36.6 ??C) SpO2: 96% Physical Exam Constitutional: Appearance: Normal appearance. She is normal weight. Cardiovascular: Rate and Rhythm: Normal rate and regular rhythm. Pulses: Normal pulses. Heart sounds: Normal heart sounds. No murmur heard. No friction rub. No gallop. Pulmonary: Effort: Pulmonary effort is normal. No respiratory distress. Breath sounds: Normal breath sounds. No wheezing or rales. Abdominal: Tenderness: There is left CVA tenderness. There is no right CVA tenderness. Neurological: General: No focal deficit present. Mental Status: She is alert and oriented to person, place, and time. Psychiatric: Mood and Affect: Mood normal. Behavior: Behavior normal. Thought Content: Thought content normal. Judgment: Judgment normal. Assessment/Plan Problem List Items Addressed This Visit None Visit Diagnoses Complicated UTI (urinary tract infection) - Primary Relevant Medications ciprofloxacin (Cipro) 500 MG tablet UTI symptoms Relevant Orders POCT urinalysis dipstick manually resulted (CPT 75549) (Completed) Culture, Urine, Routine Pt U/A positive for infection, pt hemodynamically stable, no systemic signs of infection Will send for culture to guide tx Will treat with cipro 500mg BID x7d for complicated UTI Advised pt to drink ample fluids Advised rtc for fever chills or any progression of symptoms. documented in this encounter Plan of Treatment Upcoming Encounters Date Type Department Care Team (Late st Contact Info) Description 05/17/2025 1:00 PM EDT Nutrition [facility] [address] [place] [address] [place] [address] 05/28/2025 11:00 AM EST Office Visit [facility] [address] [place] [id number] 06/05/2025 11:30 AM EST Office Visit [address] [address] Zeinab Sykes MD [address] [place] [address] 10/03/2025 12:45 PM EDT Office Visit [facility] [address] [place] [address] Fabi Hogue [address] [place] [address] Scheduled Orders Name Type Priority Associated Diagnoses Orde r Schedule Culture, Urine, Routine Microbiology Routine UTI symptoms Ordered: 05/14/2025 documented as of this encounter Goals Goal Patient Goal Type Associated Problems Recent Progress Patient-Stated? Author Patient will manage their medication General On track( 023 11:18 AM EDT) Citlali Ocampo PharmD Note: Began medboxes. Goal achieved 11/19/22. Patient graduated from [facility]. documented as of this encounter Procedures Procedure Name Priority Date/Time Associated Diagnosis Comments POCT URINALYSIS DIPSTICK Routine 05/14/2025 3:11 PM EDT UTI symptoms documented in this encounter Results * POCT urinalysis dipstick manually resulted (CPT 87055) (05/14/2025 3:11 PM EDT) Color, UA Yellow Clarity, UA Clear Glucose, UA Negative Bilirubin, UA Few 15 Ketones, UA Positive Comment:tRACE Spec Grav, UA 1.020 Blood, UA Negative Negative, None Detected pH, UA 6.0 Protein, UA 1+ 70+ Urine (Urine, Random) 05/14/2025 3:11 PM EDT Result [facility] POINT OF CARE TEST ENTER/ EDIT ORDERABLES Final Result documented in this encounter Visit Diagnoses Diagnosis Complicated UTI (urinary tract infection)- Primary UTI symptoms documented in this encounter Additional Health Concerns Assessment Noted Time PHQ-9 Depression Total Score: 22 025 10:31 AM EST documented as of this encounter Care Teams Manufacturing Laborer Relationship Specialty Start Date End Date Zeinab Sykes MD [address] [place] [id number] PCP - General Internal Medicine 01/02/24 Tomeka Martins Meal Grinder TenderUnderliner 10/27/23 [facility] 11/06/24 documented as of this encounter
--- OUTSIDE RECORDS SUMMARY | 2025-05-15 15:04 | XMS_ITS | Encounter Summary ---
Author Organization [employer] Address [address] [facility] 7t [place] [address] Care Team Providers Care Garment Alteration Examiner Name Role Phone Evelyn LedesmaP Primary Care Provider Oralia Dukes MD Primary Care Provider [phone] Zeinab Sykes MD Primary Care Provider + Reason for Visit * Reason Onset Date Comments case from lab 11/04/2022 Encounter Details Date Type Department Care Team (Late st Contact Info) Description 11/04/2022 Telephone [facility] [address] [place] [address] Asad Shore, DDS [address] [place] [address] case from lab Social History Tobacco Use [...] PM EDT Nutrition [facility] [address] [place] [address] [place] [address] 05/28/2025 11:00 AM EST Office Visit [facility] [address] [place] [address] 06/05/2025 11:30 AM EST Office Visit [facility] [address] [place] [address] Zeinab Sykes MD [address] [place] [address] 10/03/2025 12:45 PM EDT Office Visit [facility] [address] [place] [address] Ruben Hoguearis [address] [place] [address] documented as of this encounter Visit Diagnoses Not on filedocumented in this encounter Care Teams Garment Alteration Examiner Relationship Specialty Start Date End Date Evelyn Ledesma FNP PCP - General Family Medicine 03/15/22 04/25/23 Oralia Aguila MD [address] [place] [address] PCP - General Family Medicine 04/26/23 01/01/24 Zeinab Sykes MD [address] [place] [id number] PCP - General Internal Medicine 01/02/24 Tomeka Martins Chief Creative OfficerOrthopedic Shoes Salesperson 10/27/23 [facility] 11/06/24 documented as of this encounter
--- OUTSIDE RECORDS SUMMARY | 2025-05-15 15:04 | XMS_ITS | Encounter Summary ---
Author Organization [employer] Address [address] [place] [address] 7t [place] [address] Care Team Providers Care Sales Service Assistant Name Role Phone Evelyn Ledesma Primary Care Provider Silvana Oralia Alamo MD Primary Care Provider [phone] Zeinab Sykes MD Primary Care Provider + Encounter Details Date Type Department Care Team ([facility] Contact Info) Description 08/20/2022 Orders Only [facility] [address] [place] [address] Karen Henderson FNP Social History Tobacco Use [...] Upcoming Encounters Date Type Department Care Team ([facility] Contact Info) Description 05/17/2025 1:00 PM EDT Nutrition [facility] [address] [place], [place] [phone] Juana [address]man [address] [place] [address] 05/28/2025 11:00 AM EST Office Visit [facility] [address] [facility] [place] [address] 06/05/2025 11:30 AM EST Office Visit [facility] [address] [facility] [place] [address] Zeinab Sykes MD [address] [facility] [place], [place] [phone] 10/03/2025 12:45 PM EDT Office Visit [facility] [address] [facility] [place], [place] [phone] Ruben Hoguearis [address] [place] [address] documented as of this encounter Visit Diagnoses Not on filedocumented in this encounter Care Teams Sales Service Assistant Relationship Specialty Start Date End Date Evelyn Ledesma FNP PCP - General Family Medicine 03/15/22 04/25/23 Oralia Aguila MD [facility] [place] [address] PCP - General Family Medicine 04/26/23 01/01/24 Zeinab Sykes MD [address] [place], [place] [phone] PCP - General Internal Medicine 01/02/24 Tomeka Martins Mortgage Branch ManagerCircle Edger 10/27/23 [employer] 11/06/24 documented as of this encounter
--- OUTSIDE RECORDS SUMMARY | 2025-05-15 15:04 | XMS_ITS | Encounter Summary ---
Author Organization [employer] Address [address] [facility] 7t [place] [address] Care Team Providers Care Desk Operator Name Role Phone Evelyn Ledesma Primary Care Provider Oralia Dukes MD Primary Care Provider [phone] Zeinab Sykes MD Primary Care Provider + Reason for Visit * Reason Onset Date Comments Prior Authorization 12/28/2022 Encounter Details Date Type Department Care Team (Late st Contact Info) Description 12/28/2022 Telephone [facility] MEDICINE [address] [place] [address] Evelyn Ledesma FNP Prior Authorization Social History [...] AM EDT T/C placed to pt via [employer] Zeinab #[id number]. Advised of message from pcp re: lab [...] all other NSAIDS. Do you have a trench shovel operator yet? If not, your PCP would [...] AM EDT TC luis m Emery from [employer] requesting XL pull ups and disposable under pads . States faxed request couple days ago and have not gotten a response . Informs paper work 12/29/22. Please call to clarify at phone # [phone] . documented in this encounter Plan of Treatment Upcoming Encounters Date Type Department Care Team (Late st Contact Info) Description 05/17/2025 1:00 PM EDT Nutrition [facility] DIABETES/NUTRITION [address] [place], [place] [phone] Juana Gusman, MONICA [address] [place], [place] [phone] 05/28/2025 11:00 AM EST Office Visit [facility] MEDICINE [address] [place] [address] 06/05/2025 11:30 AM EST Office Visit [facility] MEDICINE [address] [place] [address] Zeinab Sykes MD 230 [place] [address] 10/03/2025 12:45 PM EDT Office Visit [facility] ADULT DENTAL [address] [place] [address] Mykel, Fabi [address] [place] [address] documented as of this encounter Goals Goal Patient Goal Type Associated Problems Recent Progress Patient-Stated? Author Patient will manage their medication General On track( 023 11:18 AM EDT) Citlali Ocampo, Anoop Note: Began medboxes. Goal achieved 11/19/22. Patient graduated from [facility]. documented as of this encounter Visit Diagnoses Not on filedocumented in this encounter Care Teams Desk Operator Relationship Specialty Start Date End Date Evelyn Ledesma FNP PCP - General Family Medicine 03/15/22 04/25/23 Oralia Aguila MD [address] [place] [address] PCP - General Family Medicine 04/26/23 01/01/24 Zeinab Sykes MD [address] [place] [address] PCP - General Internal Medicine 01/02/24 Tomeka Martins Operations Business PartnerFamily Support Coordinator 10/27/23 [employer] 11/06/24 documented as of this encounter
--- OUTSIDE RECORDS SUMMARY | 2025-05-15 15:04 | XMS_ITS | Encounter Summary ---
Author Organization [employer] Address [address] [place] [address] 7t [place] [address] Care Team Providers Care Sociology Teacher Name Role Phone Evelyn Ledesma Primary Care Provider Silvana Oralia Alamo MD Primary Care Provider [phone] Zeinab Sykes MD Primary Care Provider + Encounter Details Date Type Department Care Team ([facility] Contact Info) Description 10/22/2022 Orders Only [facility] MEDICINE [address] [place] [address] Evelyn Ledesma FNP Social History Tobacco Use [...] Date Type Department Care Team ([facility] Contact Info) Description 05/17/2025 1:00 PM EDT Nutrition [facility] DIABETES/NUTRITION 230 [place] [address] [place] [address] 05/28/2025 11:00 AM EST Office Visit [facility] MEDICINE [address] [facility] [place] [address] 06/05/2025 11:30 AM EST Office Visit [facility] MEDICINE [address] [facility] [place] [address] Zeinab Sykes MD [address] [facility] [place] [address] 10/03/2025 12:45 PM EDT Office Visit [facility] ADULT DENTAL [address] [facility] [place], [place] [phone] Ruben Hoguearis [address] [facility] [place] [address] documented as of this encounter Visit Diagnoses Not on filedocumented in this encounter Care Teams Sociology Teacher Relationship Specialty Start Date End Date Evelyn Ledesma FNP PCP - General Family Medicine 03/15/22 04/25/23 Oralia Aguila MD [facility] [place] [address] PCP - General Family Medicine 04/26/23 01/01/24 Zeinab Sykes MD [facility] [place] [address] PCP - General Internal Medicine 01/02/24 Tomeka Martins Computer Networking Instructor AdjunctDirector Of Programming 10/27/23 [employer] 11/06/24 documented as of this encounter
--- OUTSIDE RECORDS SUMMARY | 2025-05-15 15:05 | XMS_ITS | Encounter Summary ---
Author Organization [employer] Address [address] [facility] 7t [place] [address] Care Team Providers Care Lei Maker Name Role Phone Evelyn Ledesma Primary Care Provider Oralia Dukes MD Primary Care Provider Zeinab Sykes MD Primary Care Provider + Reason for Visit * Reason Onset Date Comments Appointment Request 12/20/2022 Encounter Details Date Type Department Care Team (Late st Contact Info) Description 12/20/2022 Telephone [facility] MEDICINE 230 [place], [place] [phone] Evelyn Ledesma FNP Appointment Request Social History [...] an earlier day) Please contact pt at [phone] documented in this encounter Plan of Treatment Upcoming Encounters Date Type Department Care Team (Late st Contact Info) Description 05/17/2025 1:00 PM EDT Nutrition [facility] DIABETES/NUTRITION 230 [place] [address] Juana Gusman, RD 230 [place] [address] 05/28/2025 11:00 AM EST Office Visit [facility] MEDICINE [address] [place] [address] 06/05/2025 11:30 AM EST Office Visit [facility] MEDICINE [address] [place] [address] Zeinab Sykes MD 230 [place] [address] 10/03/2025 12:45 PM EDT Office Visit [facility] ADULT DENTAL 230 [place] [address] Mykel Fabi 230 [place] [address] documented as of this encounter Goals Goal Patient Goal Type Associated Problems Recent Progress Patient-Stated? Author Patient will manage their medication General On track( 023 11:18 AM EDT) Citlali Ocampo, PharmD Note: Began medboxes. Goal achieved 11/19/22. Patient graduated from [facility]. documented as of this encounter Visit Diagnoses Not on filedocumented in this encounter Care Teams Lei Maker Relationship Specialty Start Date End Date Evelyn Ledesma FNP PCP - General Family Medicine 03/15/22 04/25/23 Oralia Aguila MD [address] [place] [address] PCP - General Family Medicine 04/26/23 01/01/24 Zeinab Sykes MD [address] [place] [address] PCP - General Internal Medicine 01/02/24 Tomeka Martins Nuclear Plant Equipment OperatorBull Rider 10/27/23 [employer] 11/06/24 documented as of this encounter
--- OUTSIDE RECORDS SUMMARY | 2025-05-15 15:05 | XMS_ITS | Encounter Summary ---
Author Organization [employer] Address [address] [place] [address] 7t [place] [address] Care Team Providers Care Industrial Waste Treatment Technician Name Role Phone Oralia Aguila MD Primary Care Provider [phone] Zeinab Sykes MD Primary Care Provider + Reason for Visit * Reason Onset Date Comments Med Refill 05/05/2023 Encounter Details Date Type Department Care Team (Late st Contact Info) Description 05/05/2023 Refill [facility] MEDICINE [address] [place] [address] Oralia Aguila MD 230 [place] [address] Other intervertebral disc displacement, lumbar region Social [...] 5- 325 MG tablet to besent to [facility] - [place], [place] - [address] documented in this encounter Plan of Treatment Upcoming Encounters Date Type Department Care Team (Late st Contact Info) Description 05/17/2025 1:00 PM EDT Nutrition [facility] DIABETES/NUTRITION [address] [place] [address] [place] [address] 05/28/2025 11:00 AM EST Office Visit [facility] MEDICINE [address] [place] [address] 06/05/2025 11:30 AM EST Office Visit [facility] MEDICINE [address] [place] [address] Zeinab Sykes MD 230 [place] [address] 10/03/2025 12:45 PM EDT Office Visit [facility] ADULT DENTAL 230 [place] [address] Mykel, Fabi [address] [place] [address] documented as of this encounter Goals Goal Patient Goal Type Associated Problems Recent Progress Patient-Stated? Author Patient will manage their medication General On track( 023 11:18 AM EDT) Citlali Ocampo PharmD Note: Began medboxes. Goal achieved 11/19/22. Patient graduated from [facility]. documented as of this encounter Visit Diagnoses Diagnosis Other intervertebral disc displacement, lumbar region documented in this encounter Care Teams Industrial Waste Treatment Technician Relationship Specialty Start Date End Date [place] [address] PCP - General Family Medicine 04/26/23 01/01/24 Zeinab Sykes MD [address] [place] [address] PCP - General Internal Medicine 01/02/24 Tomeka Martins Natural Resources EngineerTelephone Plant Power Operator 10/27/23 [employer] 11/06/24 documented as of this encounter
--- OUTSIDE RECORDS SUMMARY | 2025-05-15 15:05 | XMS_ITS | Encounter Summary ---
Author Organization [employer] Address [address] [facility] 7t [place] [address] Care Team Providers Care Formulator Compounder Name Role Phone Zeinab Sykes MD Primary Care Provider + Reason for Visit * Reason Onset Date Comments Med Refill 07/16/2024 Encounter Details Date Type Department Care Team ([facility] Contact Info) Description 07/16/2024 Telephone [facility] MEDICINE 230 [place], [place] [phone] Zeinab Sykes MD 230 [place] [address] Med Refill Social History Tobacco Use Types [...] 10 MG capsule To be sent to: [facility] pharmacy documented in this encounter Plan of Treatment Upcoming Encounters Date Type Department Care Team (Late st Contact Info) Description 05/17/2025 1:00 PM EDT Nutrition [facility] DIABETES/NUTRITION [address] [place] [address] [place] [address] 05/28/2025 11:00 AM EST Office Visit [facility] MEDICINE [address] [place] [address] 06/05/2025 11:30 AM EST Office Visit [facility] MEDICINE [address] [place] [address] [phone] Zeinab Sykes MD 230 [place] [address] 10/03/2025 12:45 PM EDT Office Visit [facility] ADULT DENTAL [address] [place], [place] [phone] Fabi Hogue [address] [place] [address] documented as of this encounter Goals Goal Patient Goal Type Associated Problems Recent Progress Patient-Stated? Author Patient will manage their medication General On track( 023 11:18 AM EDT) Citlali Ocampo PharmD Note: Began medboxes. Goal achieved 11/19/22. Patient graduated from [facility]. documented as of this encounter Visit Diagnoses Not on filedocumented in this encounter Additional Health Concerns Assessment Noted Time PHQ-9 Depression Total Score: 18 024 1:46 PM EDT documented as of this encounter Care Teams Formulator Compounder Relationship Specialty Start Date End Date Zeinab Sykes MD 230 [place] [address] PCP - General Internal Medicine 01/02/24 Tomeka Martins Research Animal AttendantCranberry Bog Supervisor 10/27/23 [employer] 11/06/24 documented as of this encounter
--- OUTSIDE RECORDS SUMMARY | 2025-05-15 15:05 | XMS_ITS | Encounter Summary ---
Author Organization [employer] Address [address] [place] [address] 7 [place] [address] Care Team Providers Care Lieutenant/Deputy Name Role Phone Oralia Aguila MD Primary Care Provider [phone] Zeinab Sykes MD Primary Care Provider + Reason for Visit * Reason Comments Med Refill Encounter Details Date Type Department Care Team (Late Contact Info) Description 08/09/2023 Refill [facility] MEDICINE [address] [place], [place] [phone] Oralia Aguila MD 230 [place], [place] [phone] Other intervertebral disc displacement, lumbar region Social [...] EDT Nutrition [facility] DIABETES/NUTRITION [address] [place] [address] [place] [address] 05/28/2025 11:00 AM EST Office Visit [facility] MEDICINE [address] [place] [address] 06/05/2025 11:30 AM EST Office Visit [facility] MEDICINE [address] [place] [address] Zeinab Sykes MD [address] [place] [address] 10/03/2025 12:45 PM EDT Office Visit [facility] ADULT DENTAL [address] [place] [address] Mykel, Fabi [address] [place] [address] documented as of this encounter Goals Goal Patient Goal Type Associated Problems Recent Progress Patient-Stated? Author Patient will manage their medication General On track( 023 11:18 AM EDT) Citlali Ocampo, Anoop Note: Began medboxes. Goal achieved 11/19/22. Patient graduated from [facility]. documented as of this encounter Visit Diagnoses Diagnosis Other intervertebral disc displacement, lumbar region documented in this encounter Care Teams Lieutenant/Deputy Relationship Specialty Start Date End Date Oralia Agiula MD [address] [place] [address] PCP - General Family Medicine 04/26/23 01/01/24 Zeinab Sykes MD [address] [place] [address] PCP - General Internal Medicine 01/02/24 Tomeka Martins Certified Green Building EngineerPiece Dye Worker 10/27/23 [employer] 11/06/24 documented as of this encounter
--- OUTSIDE RECORDS SUMMARY | 2025-05-15 15:05 | XMS_ITS | Clinical Summary ---
Author Organization [facility], Address [address] [place] [address] [place] [address] Phone Care Team Providers Care Impregnator Electrolytic Capacitors Name Role Phone Evelyn Rodriguez Primary Care Provider [phone] Social History Tobacco Use Types Packs/Day Years [...] age to complete this topic Insurance Medicaid [place] Care Teams Impregnator Electrolytic Capacitors Relationship Specialty Start Date End Date Evelyn Rodriguez FNP [facility] - General 02/18/23
--- OUTSIDE RECORDS SUMMARY | 2025-05-15 15:05 | XMS_ITS | Clinical Summary ---
Author Organization [facility] Address [address] [place] [address] Care Team Providers Care Stage Builder Name Role Phone Meryl Montes Primary Care Provider Surgical History Surgery Date Site/Laterality Comments BREAST REDUCTION PROCEDURE: [place] BREAST REDUCTION BACK SURGERY PROCEDURE: HISTORICAL BACK SURGERY; COMMENT: L4-5 rt L5-S1 decomp 05/26/18 Medical History Medical History Date Comments Asthma DX:Asthma Diabetes mellitus type 2, co ntrolled, with complications (CMS/HCC V24, CMS/HCC V28) DX:Diabetes mellitus type 2, controlled, with complications ([facility] Essential hypertension DX:Essent ial hypertension [...] age to complete this topic Care Teams Stage Builder Relationship Specialty Start Date End Date Meryl Montes [address] [place] [phone] PCP - General 05/07/22
--- OUTSIDE RECORDS SUMMARY | 2025-05-15 15:05 | XMS_ITS | Encounter Summary ---
Author Organization [employer] Address [address] [place] [address] 7 [place] [address] Care Team Providers Care Yarn Wrapper Name Role Phone Evelyn Ledesma Raegan JUNGP Primary Care Provider Oralia Dukes MD Primary Care Provider [phone] Zeinab Sykes MD Primary Care Provider + Encounter Details Date Type Department Care Team (Latest Contact Info) Description 12/21/2018 Abstract [facility] CONVERSIONS Dental, Provider, DDS Social History [...] EDT Nutrition [facility] DIABETES/NUTRITION [address] [place] [address] [address] [place] [address] 05/28/2025 11:00 AM EST Office Visit [facility] MEDICINE [address] [place] [address] [phone] 06/05/2025 11:30 AM EST Office Visit [facility] MEDICINE [address] [place] [address] Zeinab Sykes MD [address] [place] [address] [phone] 10/03/2025 12:45 PM EDT Office Visit [facility] ADULT DENTAL [address] [place], [place] [phone] Fabi Hogue [address] [place] [address] documented as of this encounter Visit Diagnoses Not on filedocumented in this encounter Care Teams Yarn Wrapper Relationship Specialty Start Date End Date Evelyn Ledesma FNP PCP - General Family Medicine 03/15/22 04/25/23 Oralia Aguila MD 230 [place], [place] [phone] PCP - General Family Medicine 04/26/23 01/01/24 Zeinab Sykes MD 230 [place], [place] [phone] PCP - General Internal Medicine 01/02/24 Tomeka Martins Heating And Cooling Systems EngineerCna Caregiver 10/27/23 [employer] 11/06/24 documented as of this encounter
--- OUTSIDE RECORDS SUMMARY | 2025-05-15 15:05 | XMS_ITS | Encounter Summary ---
Author Organization [employer] Address [address] [place] [address] 7t [place] [address] Care Team Providers Care Journal Clerk Name Role Phone Oralia Aguila MD Primary Care Provider [phone] Zeinab Sykes MD Primary Care Provider + Reason for Visit * Reason Onset Date Comments antibiotics pre med 07/19/2023 Encounter Details Date Type Department Care Team ([facility] st Contact Info) Description 07/19/2023 Telephone [facility] ADULT DENTAL [address] [place] [address] Stefany Anton, DDS [address] [place] [address] antibiotics pre med Social History Tobacco Use [...] Info) Description 05/17/2025 1:00 PM EDT Nutrition [facility] DIABETES/NUTRITION [address] [place] [address] [place] [address] 05/28/2025 11:00 AM EST Office Visit [facility] MEDICINE [address] [place] [address] 06/05/2025 11:30 AM EST Office Visit [facility] MEDICINE [address] [place] [address] Zeianb Sykes MD [address] [place] [address] 10/03/2025 12:45 PM EDT Office Visit [facility] ADULT DENTAL [address] [place] [address] Mykel, Fabi [address] [place] [address] documented as of this encounter Goals Goal Patient Goal Type Associated Problems Recent Progress Patient-Stated? Author Patient will manage their medication General On track( 023 11:18 AM EDT) No Citlali Armando, Anoop Note: Began medboxes. Goal achieved 11/19/22. Patient graduated from [facility]. documented as of this encounter Visit Diagnoses Not on filedocumented in this encounter Care Teams Journal Clerk Relationship Specialty Start Date End Date Oralia Aguila MD [address] [place] [address] PCP - General Family Medicine 04/26/23 01/01/24 Zeinab Sykes MD [address] [place] [address] PCP - General Internal Medicine 01/02/24 Tomeka Martins Head Up OperatorChristmas Bell Ringer 10/27/23 [employer] 11/06/24 documented as of this encounter
--- OUTSIDE RECORDS SUMMARY | 2025-05-15 15:05 | XMS_ITS | Encounter Summary ---
Author Organization [employer] Address [address] [facility] 7t [place] [address] Care Team Providers Care Mail Opener Name Role Phone Zeinab Sykes MD Primary Care Provider + Reason for Visit * Reason Comments Med Refill Encounter Details Date Type Department Care Team ([facility] st Contact Info) Description 02/16/2025 Refill [facility] MEDICINE 230 [place], [place] [phone] Zeinab Sykes MD 230 [place], [place] [phone] Neuropathy Social History Tobacco Use Types Packs/Day [...] Info) Description 05/17/2025 1:00 PM EDT Nutrition [facility] DIABETES/NUTRITION [address] [place] [address] [place] [address] 05/28/2025 11:00 AM EST Office Visit [facility] MEDICINE [address] [place] [address] 06/05/2025 11:30 AM EST Office Visit [facility] MEDICINE [address] [place] [address] Zeinab Sykes MD 230 [place] [address] 10/03/2025 12:45 PM EDT Office Visit [facility] ADULT DENTAL [address] [place] [address] Fabi Hogue [address] [place] [address] documented as of this encounter Goals Goal [...] as of this encounter Care Teams Mail Opener Relationship Specialty Start Date End Date Zeinab Sykes MD [address] [place] [address] PCP - General Internal Medicine 01/02/24 Tomeka Martins Field Crop FarmerRoad Worker 10/27/23 [employer] 11/06/24 documented as of this encounter
--- OUTSIDE RECORDS SUMMARY | 2025-05-15 15:05 | XMS_ITS | Encounter Summary ---
Author Organization [employer] Address [address] [facility] 7t [place] [address] Care Team Providers Care Learning Administrator Name Role Phone Oralia Aguila MD Primary Care Provider [phone] Zeinab Sykes MD Primary Care Provider + Reason for Visit * Reason Comments Med Refill Encounter Details Date Type Department Care Team (Late Contact Info) Description 07/06/2023 Refill [facility] [address] [place] [address] [phone] Bryn Franklin MD 230 [place], [place] [phone] Social History Tobacco Use Types Packs/Day Years [...] Info) Description 05/17/2025 1:00 PM EDT Nutrition [facility] DIABETES/NUTRITION [address] [place] [address] [place] [address] 05/28/2025 11:00 AM EST Office Visit [facility] MEDICINE [address] [place] [address] 06/05/2025 11:30 AM EST Office Visit [facility] MEDICINE [address] [place] [address] Zeinab Sykes MD 230 [place] [address] 10/03/2025 12:45 PM EDT Office Visit [facility] ADULT DENTAL [address] [place] [address] Mykel, Fabi [address] [place] [address] documented as of this encounter Goals Goal Patient Goal Type Associated Problems Recent Progress Patient-Stated? Author Patient will manage their medication General On track( 023 11:18 AM EDT) Citlali Ocampo PharmD Note: Began medboxes. Goal achieved 11/19/22. Patient graduated from [facility]. documented as of this encounter Visit Diagnoses Not on filedocumented in this encounter Care Teams Learning Administrator Relationship Specialty Start Date End Date Oralia Aguila MD [address] [place] [address] PCP - General Family Medicine 04/26/23 01/01/24 Zeinab Sykes MD [address] [place] [address] PCP - General Internal Medicine 01/02/24 Tomeka Martins Occupational Therapist Rehab ManagerScreen Cutter And Trimmer 10/27/23 [employer] 11/06/24 documented as of this encounter
--- OUTSIDE RECORDS SUMMARY | 2025-05-15 15:05 | XMS_ITS | Encounter Summary ---
Author Organization [employer] Address [address] [facility] 7t [place] [address] Care Team Providers Care Dyeing Machine Back Tender Name Role Phone Zeinab Sykes MD Primary Care Provider + Encounter Details Date Type Department Care Team (Latest Contact Info) Description 05/14/2025 Travel Social History Tobacco Use Types Packs/Day [...] EDT Nutrition [facility] DIABETES/NUTRITION [address] [place] [address] [place] [address] 05/28/2025 11:00 AM EST Office Visit [facility] MEDICINE [address] [place] [address] 06/05/2025 11:30 AM EST Office Visit [facility] MEDICINE [address] [place] [address] Zeinab Sykes MD 230 [place] [address] 10/03/2025 12:45 PM EDT Office Visit [facility] ADULT DENTAL [address] [place] [address] Fabi Hogue [address] [place] [address] documented as of this encounter Goals Goal Patient Goal Type Associated Problems Recent Progress Patient-Stated? Author Patient will manage their medication General On track( 023 11:18 AM EDT) No Citlali Armando, Anoop Note: Began medboxes. Goal achieved 11/19/22. Patient graduated from [facility]. documented as of this encounter Visit Diagnoses Not on filedocumented in this encounter Additional Health Concerns Assessment Noted Time PHQ-9 Depression Total Score: 22 08/15/ 025 10:31 AM EST documented as of this encounter Care Teams Dyeing Machine Back Tender Relationship Specialty Start Date End Date Zeinab Sykes MD [address] [place] [address] PCP - General Internal Medicine 01/02/24 Tomeka Martins Chief Nurse ExecutiveRn House Supervisor 10/27/23 [employer] 11/06/24 documented as of this encounter
--- OUTSIDE RECORDS SUMMARY | 2025-05-15 15:05 | XMS_ITS | Encounter Summary ---
Author Organization [employer] Address [address] [place] [address] 7 [place] [address] Care Team Providers Care Casing Machine Operator Name Role Phone Oralia Aguila MD Primary Care Provider [phone] Zeinab Sykes MD Primary Care Provider + Reason for Visit * Reason Comments Med Refill Encounter Details Date Type Department Care Team (Late Contact Info) Description 09/21/2023 Refill [facility] MEDICINE [address] [place], [place] [phone] Oralia Aguila MD 230 [place], [place] [phone] Neuropathy Social History Tobacco Use Types Packs/Day [...] Description 05/17/2025 1:00 PM EDT Nutrition [facility] DIABETES/NUTRITION [address] [place] [address] [place], [place] [phone] 05/28/2025 11:00 AM EST Office Visit [facility] MEDICINE [address] [place] [address] 06/05/2025 11:30 AM EST Office Visit [facility] MEDICINE [address] [place] [address] Zeinab Sykes MD 230 [place] [address] 10/03/2025 12:45 PM EDT Office Visit [facility] ADULT DENTAL [address] [place] [address] Mykel, Fabi [address] [place] [address] documented as of this encounter Goals Goal Patient Goal Type Associated Problems Recent Progress Patient-Stated? Author Patient will manage their medication General On track( 023 11:18 AM EDT) Citlali Ocampo PharmD Note: Began medboxes. Goal achieved 11/19/22. Patient graduated from [facility]. documented as of this encounter Visit Diagnoses Diagnosis Neuropathy Mononeuritis of unspecified site documented in this encounter Care Teams Casing Machine Operator Relationship Specialty Start Date End Date Oralia Aguila MD [address] [place] [address] PCP - General Family Medicine 04/26/23 01/01/24 Zeinab Sykes MD [address] [place] [address] PCP - General Internal Medicine 01/02/24 Tomeka Martins Control SupervisorAccounting Technician 10/27/23 [employer] 11/06/24 documented as of this encounter
--- OUTSIDE RECORDS SUMMARY | 2025-05-15 15:05 | XMS_ITS | Encounter Summary ---
Author Organization [facility] Address [address] [place] [address] Phone Care Team Providers Care Licensed Psychologist Manager Name Role Phone Evelyn Rodriguez Primary Care Provider [phone] Encounter Details Date Type Department Care Team (Late st Contact Info) Description 02/18/2023 Documentation Only [facility], [address] [place] [address] Xiao Sheppard [address] [place] [address] Social History Tobacco Use Types [...] on filedocumented in this encounter Care Teams Licensed Psychologist Manager Relationship Specialty Start Date End Date Evelyn Rodriguez FNP PCP - General 02/18/23 documented as of this encounter
--- OUTSIDE RECORDS SUMMARY | 2025-05-15 15:05 | XMS_ITS | Encounter Summary ---
Author Organization [employer] Address [address] [facility] 7t [place] [address] Care Team Providers Care Client Project Coordinator Name Role Phone Evelyn eLdesmaP Primary Care Provider Oralia Dukes MD Primary Care Provider [phone] Zeinab Sykes MD Primary Care Provider + Reason for Visit * Reason Onset Date Comments Referral 02/03/2023 Renewal Encounter Details Date Type Department Care Team (Late st Contact Info) Description 02/03/2023 Telephone [facility] MEDICINE [address] [place] [address] Evelyn Ledesma FNP Referral (Renewal ) Social [...] Info) Description 05/17/2025 1:00 PM EDT Nutrition [facility] DIABETES/NUTRITION [address] [place] [address] Curt GusmaneMONICA 230 [place] [address] 05/28/2025 11:00 AM EST Office Visit [facility] MEDICINE [address] [place] [address] 06/05/2025 11:30 AM EST Office Visit [facility] MEDICINE [address] [place] [address] Zeinab Sykes MD [address] [place] [address] 10/03/2025 12:45 PM EDT Office Visit [facility] ADULT DENTAL [address] [place] [address] Mykel, Fabi [address] [place] [address] documented as of this encounter Goals Goal Patient Goal Type Associated Problems Recent Progress Patient-Stated? Author Patient will manage their medication General On track( 023 11:18 AM EDT) Citlali Ocampo, Anoop Note: Began medboxes. Goal achieved 11/19/22. Patient graduated from [facility]. documented as of this encounter Visit Diagnoses Not on filedocumented in this encounter Care Teams Client Project Coordinator Relationship Specialty Start Date End Date Evelyn Ledesma FNP PCP - General Family Medicine 03/15/22 04/25/23 Oralia Aguila MD [address] [place] [address] PCP - General Family Medicine 04/26/23 01/01/24 Zeinab Sykes MD [address] [place] [address] PCP - General Internal Medicine 01/02/24 Tomeka Martins Collections RepCapture Manager 10/27/23 [employer] 11/06/24 documented as of this encounter
--- OUTSIDE RECORDS SUMMARY | 2025-05-15 15:05 | XMS_ITS | Encounter Summary ---
Author Organization [employer] Address [address] [place] [address] 7 [place] [address] Care Team Providers Care Fire Control Officer Name Role Phone Evelyn Ledesma Raegan JUNGP Primary Care Provider Oralia Dukes MD Primary Care Provider [phone] Zeinab Sykes MD Primary Care Provider + Encounter Details Date Type Department Care Team (Latest Contact Info) Description 10/30/2020 Abstract [facility] CONVERSIONS Dental, Provider, DDS Social [...] Info) Description 05/17/2025 1:00 PM EDT Nutrition [facility] DIABETES/NUTRITION [address] [place] [address] [place] [address] 05/28/2025 11:00 AM EST Office Visit [facility] MEDICINE [address] [place] [address] [phone] 06/05/2025 11:30 AM EST Office Visit [facility] MEDICINE [address] [place] [address] Zeinab Sykes MD 230 [place] [address] 10/03/2025 12:45 PM EDT Office Visit [facility] ADULT DENTAL 230 [place], [place] [phone] Fabi Hogue [address] [place] [address] documented as of this encounter Visit Diagnoses Not on filedocumented in this encounter Care Teams Fire Control Officer Relationship Specialty Start Date End Date Evelyn Ledesma FNP PCP - General Family Medicine 03/15/22 04/25/23 Oralia Aguila MD 230 [place], [place] [phone] PCP - General Family Medicine 04/26/23 01/01/24 Zeinab Sykes MD 230 [place], [place] [phone] PCP - General Internal Medicine 01/02/24 Tomeka Martins Mirror Fabrication SupervisorCounselor Camp 10/27/23 [employer] 11/06/24 documented as of this encounter
--- OUTSIDE RECORDS SUMMARY | 2025-05-15 15:05 | XMS_ITS | Encounter Summary ---
Author Organization [employer] Address [address] [facility] 7t [place] [address] Care Team Providers Care Weir Fisherman Name Role Phone Zeinab Sykes MD Primary Care Provider + Reason for Visit * Reason Comments Med Refill Encounter Details Date Type Department Care Team ([facility] st Contact Info) Description 05/04/2024 Refill [facility] MEDICINE 230 [place], [place] [phone] Zeinab Sykes MD 230 [place] [address] Other intervertebral disc displacement, lumbar region Social [...] EDT Nutrition [facility] DIABETES/NUTRITION [address] [place] [address] [place] [address] 05/28/2025 11:00 AM EST Office Visit [facility] MEDICINE [address] [place] [address] 06/05/2025 11:30 AM EST Office Visit [facility] MEDICINE [address] [place] [address] Zeinab Sykes MD [address] [place] [address] 10/03/2025 12:45 PM EDT Office Visit [facility] ADULT DENTAL [address] [place] [address] Fabi Hogue [address] [place] [address] documented as of this encounter Goals Goal [...] documented as of this encounter Care Teams Weir Fisherman Relationship Specialty Start Date End Date Zeinab Sykes MD [address] [place] [address] PCP - General Internal Medicine 01/02/24 Tomeka Matrins Computer Graphic ArtistForestry Patrolman 10/27/23 [employer] 11/06/24 documented as of this encounter
--- OUTSIDE RECORDS SUMMARY | 2025-05-15 15:05 | XMS_ITS | Encounter Summary ---
Author Organization [employer] Address [address] [place] [address] 7 [place] [address] Care Team Providers Care Instructor Technical Training Name Role Phone Evelyn Ledesma Primary Care Provider Silvana Oralia Alamo MD Primary Care Provider [phone] Zeinab Sykes MD Primary Care Provider + Reason for Visit * Reason Comments Med Refill Encounter Details Date Type Department Care Team (Late st Contact Info) Description 02/05/[address] [facility] MEDICINE [address] [place] [address] [phone] Evelyn Ledesma FNP Neuropathy Social History Tobacco [...] Info) Description 05/17/2025 1:[address] [facility] DIABETES/NUTRITION 230 [place], [place] [phone] Juana Gusman, MONICA 230 [place], [place] [phone] 05/28/2025 11:00 AM EST Office Visit [facility] MEDICINE [address] [place] [address] 06/05/2025 11:30 AM EST Office Visit [facility] MEDICINE [address] [place] [address] Zeinab Sykes MD 230 [place] [address] 10/03/2025 12:45 PM EDT Office Visit [facility] ADULT DENTAL [address] [place] [address] Mykel, Fabi [address] [place] [address] documented as of this encounter Goals Goal Patient Goal Type Associated Problems Recent Progress Patient-Stated? Author Patient will manage their medication General On track( 023 11:18 AM EDT) Citlali Ocampo, Anoop Note: Began medboxes. Goal achieved 11/19/22. Patient graduated from [facility]. documented as of this encounter Visit Diagnoses Diagnosis Neuropathy Mononeuritis of unspecified site documented in this encounter Care Teams Instructor Technical Training Relationship Specialty Start Date End Date Evelyn Ledesma FNP PCP - General Family Medicine 03/15/22 04/25/23 Oralia Aguila MD [address] [place] [address] PCP - General Family Medicine 04/26/23 01/01/24 Zeinab Sykes MD [address] [place] [address] PCP - General Internal Medicine 01/02/24 Tomeka Martins Dinkey OperatorAnimal Trainer Supervisor 10/27/23 [employer] 11/06/24 documented as of this encounter
--- OUTSIDE RECORDS SUMMARY | 2025-05-15 15:05 | XMS_ITS | Encounter Summary ---
Author Organization [employer] Address 75 [facility] 7t [place] [address] Care Team Providers Care Ssrs Report Developer Name Role Phone Zeinab Sykes MD Primary Care Provider + Reason for Visit * Reason Onset Date Comments Durable Medical Equipment 04/25/2025 Encounter Details Date Type Department Care Team ([facility] Contact Info) Description 04/25/2025 Telephone [facility] MEDICINE [address] [place], [place] [phone] Zeinab Sykes MD [address] [place] [address] Durable Medical Equipment Social History Tobacco Use Types Packs/Day Years [...] encounter Miscellaneous Notes * Telephone Encounter - Donn Dickey - 04/25/2025 2:37 PM EDT Tc from pt calling in regards to DME stating she would like to change some of the scripts. Pt wouldlike to reduce the amount of underpad's she is receiving, instead of 18 boxes it can be 9. Pt also states the amount of pull ups can also be cut in half. If any questions please contact pt at [phone]. documented in this encounter Plan of Treatment Upcoming Encounters Date Type Department Care Team (Late st Contact Info) Description 05/17/2025 1:00 PM EDT Nutrition [facility] DIABETES/NUTRITION [address] [place] [address] [place] [address] 05/28/2025 11:00 AM EST Office Visit [facility] MEDICINE [address] [place] [address] [phone] 06/05/2025 11:30 AM EST Office Visit [facility] MEDICINE [address] [place] [address] [phone] Zeinab Sykes MD [address] [place] [address] 10/03/2025 12:45 PM EDT Office Visit [facility] ADULT DENTAL 230 [place], [place] [phone] Fabi Hogue [address] [place] [address] documented as of this encounter Goals Goal [...] documented as of this encounter Care Teams Ssrs Report Developer Relationship Specialty Start Date End Date Zeinab Sykes MD [address] [place] [address] PCP - General Internal Medicine 01/02/24 Tomeka Martins [employer] PsychologistNurse Practitioner Physician Assistant 10/27/23 [employer] 11/06/24 documented as of this encounter
--- OUTSIDE RECORDS SUMMARY | 2025-05-15 15:05 | XMS_ITS | Encounter Summary ---
Author Organization [employer] Address [address] [facility] [address] 7t [place] [address] Care Team Providers Care Cytology Technologist Name Role Phone Zeinab Sykes MD Primary Care Provider + Encounter Details Date Type Department Care Team ([facility] st Contact Info) Description 09/20/2024 Orders Only [facility] MED & PEDS [address] [place] [address] Provider, MD Parag Social History Tobacco Use [...] Info) Description 05/17/2025 1:00 PM EDT Nutrition [facility] DIABETES/NUTRITION [address] [place] [address] [place] [address] 05/28/2025 11:00 AM EST Office Visit [facility] MEDICINE [address] [place] [address] 06/05/2025 11:30 AM EST Office Visit [facility] MEDICINE [address] [place] [address] Zeinab Sykes MD 230 [place] [address] 10/03/2025 12:45 PM EDT Office Visit [facility] ADULT DENTAL [address] [place] [address] Fabi Hogue [address] [place] [address] documented as of this encounter Goals Goal Patient Goal Type Associated Problems Recent Progress Patient-Stated? Author Patient will manage their medication General On track( 023 11:18 AM EDT) No Citlali Armando, Anoop Note: Began medboxes. Goal achieved 11/19/22. Patient graduated from [facility]. documented as of this encounter Procedures Procedure [...] PM EDT Narrative 10/19/2024 4:14 PM EDT [place] [address] [address] Scan Report Signed Patient: Rhonda Fernández MR# : [id number] : 1960 Acct:[id number] Age/Sex: 63 / F ADM Date: 10/18/24 Loc: HO.CT Attending Dr: Nolberto Quigley MD Ordering Physician: Nolberto Quigley MD Date of Service: 10/18/24 Procedure(s): CT abdomen pelvis w IV con Accession Number(s): [id number] cc: Zeinab Sykes MD; Nolberto Quigley MD Report Number: [id number]: Total DLP = 538.00 mGy-cm CLINICAL HISTORY: [...] 10/19/24 1614 DD/ 1613 TD/TT: 10/19/24 1613 Freelance Makeup Artist: Procedure Note Donotuseinterpreter, Image - 10/19/[address] [address] [address] Scan Report Signed Patient: Karla Fernández# : [id number] : 1960Acct:[id number] Age/Sex: 63 / FADM Date: 10/18/24 Loc: HO.CT Attending Dr: Nolberto Quigley MD Ordering Physician: Nolberto Quigley MD Date of Service: 10/18/24 Procedure(s): CT abdomen pelvis w IV con Accession Number(s): [id number] cc: Zeinab Sykes MD; Nolberto Quigley MD Report Number: [id number]: Total DLP = 538.00 mGy-cm CLINICAL HISTORY: [...] 10/19/24 1614 DD/ 1613 TD/TT: 10/19/24 1613 Freelance Makeup Artist: us [facility] External Provider IMG CT PROCEDURES Final Result * XR Wrist 3+ Views Left (10/16/2024 5:26 PM EDT) Anatomical Region Laterality Modality Upper Extremities, Wrist Left Radiogr aphic Imaging 10/16/2024 5:26 PM EDT Narrative 10/16/2024 5:28 PM EDT [address] [address] XRay Report Signed Patient: Rhonda Fernández MR# : [id number] : 1960 Acct:[id number] Age/Sex: 63 / F ADM Date: 10/16/24 Loc: HO.ED Attending Dr: Ordering Physician: Lanette Laura PA-C Date of Service: 10/16/24 Procedure(s): XR wrist LT min 3V Accession Number(s): [id number] cc: Zeinab Sykes MD; Lanette Laura PA-C [...] 10/16/24 1727 DD/ 172 TD/TT: 10/16/24 172 Freelance Makeup Artist: Procedure Note Donotuseinterpreter, Image - 10/16/[address] [address] XRay Report Signed Patient: Spenser FernándezR# : [id number] : 1960Acct:[id number] Age/Sex: 63 / FADM Date: 10/16/24 Loc: HO.ED Attending Dr: Ordering Physician: Lanette Laura PA-C Date of Service: 10/16/24 Procedure(s): XR wrist LT min 3V Accession Number(s): [id number] cc: Zeinab Sykes MD; Lanette Laura PA-C [...] in OV> 10/16/241726 DD/ 25 TD/TT: 10/16/241725 Freelance Makeup Artist: [facility] External Provider IMG XR PROCEDURES Final Result * XR Hip left with Pelvis 1 view (10/16/2024 5:24 PM EDT) Anatomical Region Laterality Modality Lower Extremities, Hip Bilateral Radiograp hic Imaging 10/16/2024 5:24 PM EDT Narrative 10/16/2024 5:26 PM EDT [address] [address] XRay Report Signed Patient: Rhonda Fernández MR# : [id number] : 1960 Acct:[id number] Age/Sex: 63 / F ADM Date: 10/16/24 Loc: HO.ED Attending Dr: Ordering Physician: Lanette Laura PA-C Date of Service: 10/16/24 Procedure(s): XR hip LT w PEL1V Accession Number(s): [id number] cc: Zeinab Sykes MD; Lanette Laura PA-C [...] in OV> 10/16/241724 DD/ 23 TD/TT: 10/16/241723 Freelance Makeup Artist: Procedure Note Donotuseinterpreter, Image - 10/16/[address] [address] XRay Report Signed Patient: Spenser FernándezR# : [id number] : 1960Acct:[id number] Age/Sex: 63 / FADM Date: 10/16/24 Loc: HO.ED Attending Dr: Ordering Physician: Lanette Laura PA-C Date of Service: 10/16/24 Procedure(s): XR hip LT w PEL1V Accession Number(s): [id number] cc: Zeinab Sykes MD; Lanette Laura PA-C [...] in OV> 10/16/241724 DD/ 23 TD/TT: 10/16/241723 Freelance Makeup Artist: [facility] External Provider IMG XR PROCEDURES Final Result * XR Elbow 3+ Views Left (10/16/2024 5:23 PM EDT) Anatomical Region Laterality Modality Upper Extremities, Elbow Left Radiogr aphic Imaging 10/16/2024 5:23 PM EDT Narrative 10/16/2024 5:25 PM EDT [place] [address] XRay Report Signed Patient: Rhonda Fernández MR# : [id number] : 1960 Acct:[id number] Age/Sex: 63 / F ADM Date: 10/16/24 Loc: HO.ED Attending Dr: Ordering Physician: Lanette Laura PA-C Date of Service: 10/16/24 Procedure(s): XR elbow LT min 3V Accession Number(s): [id number] cc: Zeinab Sykes MD; Lanette Laura PA-C [...] in OV> 10/16/241723 DD/ 22 TD/TT: 10/16/241722 Freelance Makeup Artist: Procedure Note Donotuseinterpreter, Image - 10/16/2024 [place] [address] XRay Report Signed Patient: Karla Fernández# : [id number] : 1960Acct:[id number] Age/Sex: 63 / FADM Date: 10/16/24 Loc: .ED Attending Dr: Ordering Physician: Lanette Laura PA-C Date of Service: 10/16/24 Procedure(s): XR elbow LT min 3V Accession Number(s): [id number] cc: Zeinab Sykes MD; Lanette Laura PA-C [...] in OV> 10/16/244 DD/ 22 TD/TT: 10/16/241722 Freelance Makeup Artist: [facility] External Provider IMG XR PROCEDURES Final Result * CT Cervical Spine w/o Contrast (10/16/2024 5:18 PM EDT) Anatomical Region Laterality Modality Spine, C-spine Computed Tomogra phy 10/16/2024 5:18 PM EDT Narrative 10/16/2024 5:19 PM EDT [address] [address] [address] Scan Report Signed Patient: Rhonda Fernández MR# : [id number] : 1960 Acct:[id number] Age/Sex: 63 / F ADM Date: 10/16/24 Loc: HO.ED Attending Dr: Ordering Physician: Lanette Laura PA-C Date of Service: 10/16/24 Procedure(s): CT cervical spine wo IV con Accession Number(s): [id number] cc: Zeinab Sykes MD; Lanette Laura PA-C Report Number: [id number]: Total DLP = 605.00 mGy-cm CLINICAL HISTORY: [...] in OV> 10/16/249 DD/ 17 TD/TT: 10/16/241717 Freelance Makeup Artist: Procedure Note Donotuseinterpreter, Image - 10/16/[address] [address] [address] Scan Report Signed Patient: Spenser FernándezR# : [id number] : 1960Acct:[id number] Age/Sex: 63 / FADM Date: 10/16/24 Loc: HO.ED Attending Dr: Ordering Physician: Lanette Laura PA-C Date of Service: 10/16/24 Procedure(s): CT cervical spine wo IV con Accession Number(s): [id number] cc: Zeinab Sykes MD; Lanette Laura PA-C Report Number: [id number]: Total DLP = 605.00 mGy-cm CLINICAL HISTORY: [...] in OV> 10/16/241718 DD/ 17 TD/TT: 10/16/241717 Freelance Makeup Artist: [facility] External Provider IMG CT PROCEDURES Final Result * Hm Colonoscopy (11/05/2020 11:36 AM EDT) Historical Provider HEALTH MAINTENANCE Final Result documented in this encounter Visit Diagnoses Not on filedocumented in this encounter Additional Health Concerns Assessment Noted Time PHQ-9 Depression Total Score: 22 025 10:31 AM EST documented as of this encounter Care Teams Cytology Technologist Relationship Specialty Start Date End Date Zeinab Sykes MD [address] [place] [address] PCP - General Internal Medicine 01/02/24 Tomeka Martins Stereoptic Projection TopographerDrink Waiter 10/27/23 [employer] 11/06/24 documented as of this encounter
--- OUTSIDE RECORDS SUMMARY | 2025-05-15 15:05 | XMS_ITS | Clinical Summary ---
Author Organization [employer] Address [address] [place] [address] Care Team Providers Care Dip Brazier Name Role Phone Zeinab Sykes MD Primary [...] Devices (Cane) misc Active Blood Pressure kit Active Respiratory Therapy Supplies (Nebulizer) device Active Blood Glucose Monitoring Suppl (FreeStyle glucose monitoring) [...] in the morning. Active oxymetazoline (Afrin Nasal [place]) 0.05 % nasal spray Administer 2 sprays into each nostril every 12 (twelve) hours if needed for congestion for up to 2 days. Do not use for more than 3 days. 30 mL Active ondansetron (Zofran) 4 MG tablet Take 1 tablet (4 mg) by mouth every 8 (eight) hours if needed for nausea or vomiting. 12 tablet 024 Active FreeStyle lancetsIndication s:Type 2 diabetes mellitus without complication, without long-term current use of insulin ([facility]) 1 each by Other route Once per day. USE TO TEST BLOOD SUGAR ONCE A DAY 100 each 3 024 Active glucose blood (FREESTYLE LITE) test stripIndications: Type 2 diabetes mellitus without complication, without long-term current use of insulin ([facility]) USE TO TEST BLOOD SUGAR ONCE A DAY 100 each 3 024 Active Alcohol Swabs (Alcohol Prep) padsIndications:T ype 2 diabetes mellitus without complication, without long-term current use of insulin ([facility]) USE TWICE DAILY 100 each 5 Active albuterol (2.5 MG/3ML) 0.083% nebulizer solution Take 3 mL (2.5 mg) by nebulization every 4 (four) hours if needed for wheezing or shortness of breath (Maximum 4 treatments per day). 75 mL 2 025 2025 Active chlorthalidone (Hygroton) 25 MG tablet TAKE 1/2 TABLET BY MOUTH EVERY MORNING 45 tablet 3 Active nystatin (Mycostatin) ointment Apply topically 2 times daily. Apply to the affected area two times a day- corner of the mouth. 15 g 1 025 2025 Active celecoxib (CeleBREX) 100 MG capsuleIndication s:Left hand pain TAKE 1 CAPSULE BY MOUTH TWICE DAILY 60 capsule 3 Active cetirizine (ZyrTEC) 10 MG tabletIndications :Seasonal allergic rhinitis, unspecified trigger TAKE 1 TABLET BY MOUTH EVERY MORNING 90 tablet 3 Active lidocaine (Lidoderm) 5 % patchIndications: Other intervertebral disc displacement, lumbar region APPLY 1 PATCH TOPICALLY TO SKIN, LEAVE ON FOR 12 HOURS AND OFF FOR 12 HOURS DIRECTED 30 patch 3 Active gabapentin (Neurontin) 300 MG capsuleIndication s:Neuropathy TAKE 1 CAPSULE BY MOUTH THREE TIMES DAILY IN THE MORNING, EVENING, AND BEDTIME 90 capsule 3 Active azelaic acid (Azelex) 20 % cream Apply topically 2 times daily. 50 g 025 2025 Active ergocalciferol (Vitamin D2) 1.25 MG (83294 UT) capsule TAKE 1 CAPSULE BY MOUTH ONCE WEEKLY ON TUESDAY MORNING 12 capsule 1 Active amLODIPine-valsar beach (Exforge) 10-320 MG tablet TAKE 1 TABLET BY MOUTH EVERY MORNING 90 tablet 3 Active melatonin 5 MG tablet TAKE 2 TABLETS BY MOUTH EVERY DAY AT BEDTIME 180 tablet 1 Active oxyCODONE-acetami nophen (Percocet) 5-325 MG tabletIndications :Other intervertebral disc displacement, lumbar region Take 1 tablet by mouth every 6 (six) hours if needed for severe pain for up to 28 days. Do not start before April 26, 2025. 112 tablet 025 2024 Active atorvastatin (Lipitor) 20 MG tablet TAKE 1 TABLET BY MOUTH AT BEDTIME 90 tablet 3 Active ciprofloxacin (Cipro) 500 MG tabletIndications :Complicated UTI (urinary tract infection) Take 1 tablet (500 mg) by mouth 2 times daily for 7 days. 14 tablet 025 2024 Active atorvastatin (Lipitor) 20 MG tablet Take 1 tablet (20 mg) by mouth at bedtime. 90 tablet 3 024 2024 Discontinued amLODIPine-valsar beach (Exforge) 10-320 MG tablet TAKE 1 TABLET BY MOUTH EVERY MORNING 90 tablet 3 024 2024 Discontinued melatonin 10 MG tablet Take 1 tablet (10 mg) by mouth at bedtime. 90 tablet 1 025 2024 Discontinued oxyCODONE-acetami nophen (Percocet) 5-325 MG tabletIndications :Other intervertebral disc displacement, lumbar region Take 1 tablet by mouth every 6 (six) hours if needed for severe pain for up to 28 days. Do not start before March 28, 2025. 112 tablet 025 2024 Discontinued(R eorder (will not trigger notification to Pharmacy)) nitrofurantoin, macrocrystal-mono hydrate, (Macrobid) 100 MG capsule Take 1 capsule (100 mg) by mouth 2 times daily for 5 days. 10 capsule 025 2024 Active Problems Problem Noted Date [...] bx, I will fu or refer to [employer] [facility] [employer]ELOPER after US reports. Left foot pain 03/29/2024 [...] L4-5 and right L5-S1 decompressive laminectomy at [facility] - surgeon Dr. Melia Pedroza DME request for 10-in-1 pillow on 07/31/24 (not approved by insurance) Assessment & Plan (10/23/2024 2:47 PM EDT): Known DDD L-spine with radiculopathy sxs 05/26/2018 - Lumbar decompression surgery: L4-5 and right L5-S1 decompressive laminectomy at [facility] - surgeon Dr. Melia Pedroza DME request for 10-in-1 pillow on 07/31/24 (not approved by insurance) Assessment & Plan (09/27/2024 11:23 AM EDT): Known DDD L-spine with radiculopathy sxs 05/26/2018 - Lumbar decompression surgery: L4-5 and right L5-S1 decompressive laminectomy at [facility] - surgeon Dr. Melia Pedroza DME request for 10-in-1 pillow on 07/31/24 (not approved by insurance) Assessment & Plan (07/31/2024 4:58 PM EST): Known DDD L-spine with radiculopathy sxs 05/26/2018 - Lumbar decompression surgery: L4-5 and right L5-S1 decompressive laminectomy at [facility] - surgeon Dr. Melia Pedroza DME request for 10-in-1 pillow on 07/31/24 Assessment & Plan (05/29/2024 5:18 PM EST): Known DDD L-spine with radiculopathy sxs 05/26/2018 - Lumbar decompression surgery: L4-5 and right L5-S1 decompressive laminectomy at [facility] - surgeon Dr. Melia Pedroza Assessment [...] disc, s/p vagus nerve stimulator, neuropathy Last TOUR GUIDE Agreement: 02/26/25 Tier 3: TOUR GUIDE visit Q4-6 months. (Last evaluated Jul 2024 [...] of scalp 01/02/2024 Overview (01/02/2024): Seen at [facility] dermatology Assessment & Plan (03/20/2024 3:50 PM EDT): Generally well controlled, encouraged to continue fu with [facility] derm Refill for fluocinolone today. Housing insecurity 01/02/2024 Assessment & Plan (08/15/2024 1:36 PM EST): See above. Applying for housing and need handicap access. Assessment & Plan (03/20/2024 3:51 PM EDT): Awaiting housing application, lives in abasement FU with [employer]. Stage 3a chronic kidney disease (CMS/HCC) 2023 [...] albuterol prn. Will refer her back to fur polisher. RUQ pain 10/05/2023 Assessment & Plan (11/01/2023 [...] ballon inside the gastric body placed in [place] for bariatric procedure about 20 cm in [...] lumbar r egion 05/17/2017 Overview (09/17/2022): On TOUR GUIDE contract. discussed tapering percocet options, not interested.. Referred to HIM forms dept for handicap plackards documents. Referred to [facility] for polypharmacy education. Continue medications as prescribed. Discussed Narcan. Encouraged nonpharmacologic pain relief strategies. will f/up next visit Assessment & Plan (04/02/2025 3:45 PM EDT): On [facility] contract, continue Percocet 3-4 times per day and follow-up with chronic pain management program and TOUR GUIDE nurse. We have done [employer] education re [...] & Plan (03/20/2024 3:48 PM EDT): On TOUR GUIDE contract. discussed tapering percocet options, not interested, it apparently offers partial enough improvement of sxs. Patient is aware that [facility] use of opiates can cause hyperalgesia, liver toxicity, RD MECHANICAL ENGINEER toxicity, increase anxiety, among others. Will continue to work with chronic pain management [facility] clinic. Continue medications as prescribed. Discussed [...] PRN for elevated BP readings.. Referred to [facility] for polypharmacy education. Continue medications [...] pseudophedrine short term. Will refer her to fur polisher again so she can be evaluated for [...] organization. Date Type Department Care Team Description 05/14/2025 3:20 PM EDT Office Visit [facility] [address] [phone] Bjorn Melendez CNP Complicated UTI (urinary tract infection) (Primary Dx); UTI symptoms 05/14/2025 Travel 05/08/2025 Refill [facility] [address] [place] [phone] Zeinab Sykes MD 05/06/2025 11:00 AM EDT Office Visit [facility] [address] [address] Marie Lozano MD Urinary tract infection without hematuria, site unspecified (Primary Dx); Irregular bowel habits 05/06/2025 Travel 04/25/2025 Telephone [facility] [address] [place] [phone] Zeinab Sykes MD Durable Medical Equipment 04/25/2025 Refill [facility] [address] [place] [address] Zeinab Sykes MD Other intervertebral disc displacement, lumbar region 04/25/2025 Telephone [facility] [address] [place] [phone] Zeinab Sykes MD Referral 04/24/2025 Orders Only GENERIC EXTERNAL DATA DEPARTMENT Provider, Generic External Data 04/17/2025 Refill [facility] [address] [facility] [place] [address] Zeinab Sykes MD 04/15/2025 Telephone [facility] [address] [place] [phone] Zeinab Sykes MD Nutrition referral 04/11/2025 Refill [facility] [address] [place] [phone] Zeinab Sykes MD 04/10/2025 8:00 AM EDT Office Visit [facility] [address] [facility] [place] [address] Gay Thompson, SOCORROS Ill-fitting dentures (Primary Dx) 04/10/2025 Telephone [facility] [address] [place] [phone] Zeinab Sykes MD WORK STUDY STUDENT referral 04/09/[address] [address] Zeinab Sykes MD telephone call; Durable Medical Equipment (DME Request: Incontinence Supplies) 04/04/2025 11:15 AM EDT Office Visit [facility] [address] [place] [address] Gay Thompson, DDS Edentulism (Primary Dx); Partially edentulous mandible, class I edentulism 04/02/2025 11:15 AM EDT Office Visit [facility] [address] [place] [phone] Zeinab Sykes MD Type 2 diabetes mellitus without complication, without long-term current use of insulin ([facility]) (Primary Dx); Essential hypertension; Arthritis; Moderate persistent [...] mammogram for breast cancer 04/02/2025 Patient Outreach [facility] [address] [place] [phone] Zeinab Sykes MD Care Coordination ([facility] outreach for [facility] housing search-referral completed ) 04/02/2025 Travel 04/02/[address] [address] Zeinab Sykes MD appt change 03/27/2025 11:15 AM EDT Office Visit [facility] [address] [place] [phone] Watkins-Maynard, Gay, DDS Edentulism (Primary Dx); Partially edentulous mandible, class I edentulism 03/27/2025 Refill [facility] [address] [place], [place] [phone] Janessa Jolley MD Other intervertebral disc displacement, lumbar region 03/19/2025 11:00 AM EDT Office Visit [facility] [address] [place] [phone] Watkins-Maynard, Gay, DDS Edentulism (Primary Dx); Partially edentulous mandible, class I edentulism 03/08/2025 10:00 AM EDT Office Visit [facility] [address] [place] [phone] Watkins-Maynard, Gay, DDS Edentulism (Primary Dx); Partially edentulous mandible, class I edentulism 03/06/2025 Refill [facility] [address] [place] [phone] Zeinab Sykes MD Neuropathy 02/27/2025 Refill [facility] [address] [place] [address] Zeinab Sykes MD Other intervertebral disc displacement, lumbar region 02/26/2025 11:00 AM EDT Office Visit [facility] [address] [place] [address] Alma Jha, MANAGER RISK Lumbar back pain with radiculopathy affecting left lower extremity (Primary Dx); Long-term current use of opiate analgesic 02/26/2025 Travel 02/21/2025 Telephone [facility] [address] [place] [address] Zeinab Sykes MD Prior Authorization ([facility]: Lidocaine 5% Patch) 02/20/2025 Refill [facility] [address] [place] [address] Zeinab Sykes MD Other intervertebral disc displacement, lumbar region 02/18/2025 Telephone [facility] [address] [place] [address] Zeinab Sykes MD Referral 02/18/2025 Telephone [facility] [address] [place] [address] Zeinab Sykes MD Durable Medical Equipment (DME Order: Multiple Items) 02/16/2025 Refill [facility] [address] [place] [address] Zeinab Sykes MD Neuropathy from Last 3 Months Immunizations Immunization Administration [...] (205 lb) 05/14/2025 2:59 PM EDT Height 160 cm (5' 3 ) 05/06/2025 10:23 AM EDT Body Mass Index 36.31 05/06/2025 10:23 AM EDT Plan of Treatment Upcoming Encounters Date Type Department Care Team (Late st Contact Info) Description 05/17/2025 1:00 PM EDT Nutrition [facility] [address] [place] [address] [place] [address] 05/28/2025 11:00 AM EST Office Visit [facility] [address] [place] [phone] 06/05/2025 11:30 AM EST Office Visit [facility] [address] [place] [phone] Zeinab Sykes MD [address] [place] [address] 10/03/2025 12:45 PM EDT Office Visit [facility] [address] [place] [address] Fabi Hogue [address] [place] [address] Health Maintenance Due Date Last Done Comments [...] 12/17, 06/14/2022, Additional history exists Tobacco Screening 05/14/2026 05/14/2025 Mammogram 04/12/2027 04/12/2025, 02/16, 02/13/2021, Additional history [...] achieved 11/19/22. Patient graduated from [facility]. Procedures Procedure Name Priority Date/Time Associated Diagnosis Comments POCT URINALYSIS DIPSTICK Routine 05/14/2025 3:11 PM EDT UTI symptoms POCT URINALYSIS DIPSTICK Routine 05/06/2025 10:45 AM EDT Urinary tract infection without hematuria, site unspecified HEMATOXYLIN AND EOSIN STAIN Routine 04/24/2025 10:05 AM EDT BI MAMMOGRAM SCREENING TOMOSYNTHESIS BILATERAL Routine 04/12/2025 [...] complication, without long-term current use of insulin ([facility]) BASIC METABOLIC PANEL Routine 04/10/2025 8:29 AM [...] complication, without long-term current use of insulin ([facility]) POCT GLUCOSE Routine 04/02/2025 11:57 AM EDT Type 2 diabetes mellitus without complication, without long-term current use of insulin ([facility]) WAX TRY IN Routine 03/27/2025 11:15 AM [...] Relevant to Health Maintenance Results * POCT urinalysis dipstick manually resulted (CPT 40385) (05/14/2025 3:11 PM EDT) Only the most recent of2 resultswithin the time period is included. Color, UA Yellow Clarity, UA Clear Glucose, UA Negative Bilirubin, UA Few 15 Ketones, UA Positive Comment:tRACE Spec Grav, UA 1.020 Blood, UA Negative Negative, None Detected pH, UA 6.0 Protein, UA 1+ 70+ Urine (Urine, Random) 05/14/2025 3:11 PM EDT [facility] POINT OF CARE TEST ENTER/ EDIT ORDERABLES Final Result * Hematoxylin and Eosin Stain (04/24/2025 10:05 AM EDT) 04/24/2025 10:0 5 AM EDT 04/24/2025 11:26 AM EDT [facility] - 04/25/2025 2:36 PM EDT ----- ------- Name: Gerry MclaughlinRhonda Age/Sex: 64/F : 1960 Unit#: [id number] Attend Dr: Patricio Osorio MD Re04/24/25 Status: [facility] Location: [facility] Disch: ----- ------- SPEC : [id number] RECD: 04/24/25 STATUS: HODA GARRETT NUM: [id number] DARWIN: 04/24/[address] [facility] [address]: Patricio Osorio MD ENTERED: 04/24/25 SP TYPE: Surgical OTHR DR: Zeinab Sykes MD ORDERED: HE Stain/3, Gross Micro L4 Diagnosis Colon, ascending, polypectomy: Fragments of sessile serrated lesion/polyp; negative for cytologic dysplasia. Clinical History Pre-Op Dx: Screening Post-Op Dx: Colon polyp Microscopic Description Microscopic sections reviewed. Material Received Ascending colon polyp Gross Description Received in formalin labeled ascending colon polyp are 6 fragments of beach-white soft tissue measuring 0.2-0.5 cm in greatest dimension which are wrapped in lens paper and entirely submitted for microscopic examination, 6 pieces in cassette A. ([facility]) IHC S/NG Disclaimer NOTE: Unless otherwise stated, all tissue is formalin-fixed and paraffin-embedded. Some or all of the immunohistochemical tests reported herein may have been developed and their performance characteristics determined by [facility]. They have not been cleared or approved by the U.S. Food and Drug Administration (FDA). However, the FDA has determined that such clearance or approval is not necessary. This laboratory is certified under the Clinical Laboratory Improvement Amendments of 1988 (CLIA) as qualified to perform high complexity clinical laboratory testing. Copies To: Zeinab Sykes MD [address] [address] CONTINUED ON NEXT PAGE ----- ------- Name: Rhonda Fernández Age/Sex: 64/F : 1960 Unit#: [id number] Attend Dr: Patricio Osorio MD Re04/24/25 Status: [facility] Location: [facility] Disch: ----- ------- SPEC : [id number] RECD: 04/24/25 STATUS: HODA GARRETT NUM: [id number] DARWIN: 04/24/[address] [facility] [address]: Patricio Osorio MD ENTERED: 04/24/25 SP TYPE: Surgical OTHR DR: Zeinab Sykes MD ORDERED: HE Stain/3, Gross Micro L4 Copies To: (Continued) Patricio Osorio MD [facility] [address] [place] [address] [place] [address] ----- ------- Signed (signature on file) Jimmy Trejo MD 04/25/25 1436 ----- ------- END OF REPORT us Generic External Data Provider LAB BLOOD ORDERAB LES Final Result [facility] [address] [place] [phone] * BI Mammogram Screening Tomosynthesis Bilateral (04/12/2025 10:58 AM EDT) Anatomical Region Laterality Modality Breast Bilateral Mammography 04/12/2025 10:5 8 AM EDT Narrative 04/15/2025 5:36 PM EDT [facility] [address] [place] [address] [place] [address] Mammography Report Signed Patient: Rhonda Fernández MR# : [id number] : 1960 Acct:[id number] Age/Sex: 64 / F ADM Date: 04/12/25 Loc: [facility] Attending Dr: Zeinab Sykes MD Ordering Physician: Zeinab Sykes MD Results: 2Be nign Date of Service: 04/12/25 Follow Up: 1 Year From Orig inal Mammogram Procedure(s): MM tomosynthesis screening BI Accession Number(s): [id number] cc: Zeinab Sykes MD Reason For Exam: [...] 04/15/25 1733 DD/ 1058 TD/TT: 04/12/25 1113 Imcu Specialist: Procedure Note Donotuseinterpreter, Image - 04/15/2025 [facility] [address] [place] [address] Mammography Report Signed Patient: Karla Fernández# : [id number] : 1960Acct:[id number] Age/Sex: 64 / FADM Date: 04/12/25 Loc: HO.MAMMO Attending Dr: Zeinab Sykes MD Ordering Physician: Zeinab Sykes MDResults: 2Be nign Date of Service: 04/12/25Follow Up: 1 Year From Orig inal Mammogram Procedure(s): MM tomosynthesis screening BI Accession Number(s): [id number] cc: Zeinab Sykes MD Reason For Exam: [...] Anamika Pollack DO 04/15/2025 05:33 PM EDT RP Dictated By: Anamika Pollack DO Signed By: <Electronically signed by Anamika Pollack DO in OV> 04/15/25 1733 DD/ 1058 TD/TT: 04/12/25 1113 Imcu Specialist: Zeinab Sykes MD IMG BI PROCEDURES Final Result * Syphilis Screen (04/10/2025 8:29 AM EDT) Syphilis Screen Nonreactive Nonreactive [facility] Blood 04/10/2025 8:29 AM EDT 04/10/2025 11:28 AM EDT us Zeinab Sykes MD LAB BLOOD ORDERABLES Fin al Result [facility] [address] [place] [phone] * Vitamin B12/Folate, Serum Panel (04/10/2025 8:29 AM EDT) Vitamin B12 659 200 - 900 pg/mL [facility] Comment:NORMAL 200-900 PG/ML INDETERMINATE 160-199 PG/ML DEFICIENT < 160 PG/ML Folate 10.7 > or = 4.0 ng/mL [facility] Comment:Reference Values:> o r = [...] ORDERABLES Fin al Result Performing Organization Address [facility] Co de Phone Number [facility] [address] [place] [phone] * TSH with Reflex to Free T4 (04/10/2025 8:29 AM EDT) TSH reflex Free T4 2.11 0.32 - 4.0 uIU/mL [facility] Blood 04/10/2025 8:29 AM EDT 04/10/2025 11:28 AM EDT us Zeinab Sykes MD LAB BLOOD ORDERABLES Fin al Result Performing Organization Address [facility]/ZIP Co de Phone Number [facility] [address] [place] [phone] * Lipid Panel with Reflex to Direct LDL (04/10/2025 8:29 AM EDT) Triglycerides 72 <150 mg/dL [facility] Comment:Desirable Triglyceri de: less than 150 mg/dLBorderline High Triglyceride 150-199 mg/dLHigh Triglyceride: 200-499 mg/dLVery High Triglyceride: greater than or equal to 5OO mg/dL Cholesterol 156 <200 mg/dL [facility] Comment:Desirable Cholestero l: less than 200 mg/dLBorderline High Cholesterol: 200-239 mg/dLHigh Cholesterol: greater than 239 mg/dL LDL Cholesterol Calculated 79 <100 mg/dL [facility] Comment:Desirable LDL: less than 100 mg/dLNear Optimal/Above Optimal LDL: 110- 129 mg/dLBorderline High LDL: 130-159 mg/dLHigh LDL: 160-189 mg/dLVery High LDL: greater than or equal to 190 mg/dL HDL Cholesterol 63 >40 mg/dL [facility] Comment:Desirable HDL: great er than 40 mg/dL Note: This HDL assay may give artificially low results in patients with liver disease. Blood 04/10/2025 8:29 AM EDT 04/10/2025 11:28 AM EDT us Zeinab Sykes MD LAB BLOOD ORDERABLES Fin al Result Performing Organization Address [facility] de Phone Number [facility] [address] [place] [phone] * Albumin, Random Urine W/Creatinine (04/10/2025 8:29 AM EDT) Creatinine, Urine 171.83 mg/dL [facility] Microalbumin Urine 11.0 mg/L [facility] Microalbum Creatinine Ratio Ur 6.4 <30 ug/mg cr [facility] Comment:Albumin/Creatinine R atio Reference Ranges: Normal: < 30 ug/mg creatinine Microalbuminuria: 30 - 300 ug/mg creatinineClinical Albuminuria: > 300 ug/mg creatinine Urine (Urine, Random) 04/10/2025 8:29 AM EDT 04/10/2025 11:43 AM EDT us Zeinab Sykes MD LAB URINE ORDERABLES Fin al Result Performing Organization Address [facility] Co de Phone Number [facility] [address] [place] [phone] * HIV-1/2 Antigen and Antibodies, Fourth Generation, with Reflexes (04/10/2025 8:29 AM EDT) HIV AB/AG Nonreactive Nonreactive [facility] Comment:HIV-1 p24 Ag and/or HIV-1/HIV-2 Ab not detected.A test result that is nonreactive does not exclude thepossibility of exposure to or infection with HIV-1 and/orHIV-2. Nonreactive results in this assay for individualswith prior exposure to HIV-1 and/or HIV-2 may be due toantigen and antibody levels that are below the limit ofdetection of this assay.The VMob HIV Ag/Ab Combo assay result andsupplemental assay results should be interpreted inconjunction with the patient's clinical presentation,history and other laboratory results. If the results areinconsistent with clinical evidence, additional testing issuggested to confirm the result. Blood Venous blood specimen / Unknown 04/10/2025 8:29 AM EDT 04/10/2025 11:28 AM EDT us Zeinab Sykes MD LAB BLOOD ORDERABLES Fin al Result [facility] [address] [place] [phone] * (ABNORMAL) Basic Metabolic Panel (04/10/2025 8:29 AM EDT) Pathologist [facility] Sodium 145 135 - 145 mmol/L [facility] LABS Potassium 3.7 3.3 - 5.1 mmol/L [facility] Chloride 108 96 - 108 mmol/L [facility] Carbon Dioxide 28 22 - 29 mmol/L [facility] Anion Gap 13 12 - 20 [facility] Urea Nitrogen (BUN) 16 9 - 16 mg/dL [facility] Creatinine, Serum 0.93 0.5 - 1.4 mg/dL [facility] Estimated Glomerular Filt Rate >60 [facility] Comment:Chronic Kidney Disea se: Estimated GFR < 60 mL/min/1.66g5Rioqyo Kidney Disease: Estimated GFR < 15 mL/min/1.73m2 Glucose 123(H) 60 - 115 mg/dL [facility] Calcium 9.6 8.4 - 10.2 mg/dL [facility] Blood Venous blood specimen / Unknown 04/10/2025 8:29 AM EDT 04/10/2025 11:28 AM EDT Result [facility] Zeinab Sykes MD LAB BLOOD ORDERABLES Fin al Result [facility] [address] [place] [phone] * (ABNORMAL) POCT Hgb A1c (04/02/2025 11:59 AM EDT) Pathologist [facility] Hemoglobin A1C 6.8(A) 4.0 - 5.7 % QC Media Lot # [id number] Lot# Expiration Date ,173,992 Blood 04/02/2025 11:5 9 AM EDT Result [facility] Zeinab Sykes MD POINT OF CARE TE ST ENTER/EDIT ORDERABLES Edited Result - Final * POCT Glucose (04/02/2025 11:57 AM EDT) Pathologist [facility] Glucose Blood, POC 139 60 - 200 mg/dL Comment:random QC Media Lot # [id number] Lot# Expiration Date ,251,005 Blood Capillary blood specimen / Unknown 04/02/2025 11:57 AM EDT Result [facility] Zeinab Sykes MD POINT OF CARE TEST [...] - 02/26/2025 11:46 AM EDT .UTOX cup Lot#[id number] Exp. 04/23/26 Internal Pass Control Alma Abhijeet MANAGER RISK POINT OF CARE TEST ENTER/EDIT ORDERABLES Final Result * Pap Smear (06/01/2024 2:43 PM EST) 06/01/2024 2:43 PM EST 06/04/2024 9:25 AM EST [facility] LABS - 06/20/2024 7:51 AM EST ----- ------- Name: Rhonda Fernández Age/Sex: 63/F : 1960 Unit#: [id number] Attend Dr: Aisha Mcclain CNM Re06/01/24 Status: DEP REF Location: HO.LNP Disch: ----- ------- SPEC : [id number] RECD: 06/04/24 STATUS: HODA GARRETT NUM: [id number] DARWIN: 06/01/24-[address]: Aisha Mcclain CNM [...] Received ThinPrep-Cervical Copies To: Zeinab Sykes MD [facility] [address] [place] [address] Aisha Mcclain CNM [facility] [address] [place], [place] [phone] ----- ------- Signed (signature on file) INDERJIT Bloom (ASCP) 06/20/24 0751 ----- ------- END OF REPORT us Generic External Data Provider LAB CYTOLOGY JERED STAFFORD Final Result [facility] [address] [place] [address] [phone] * Hepatitis Panel, General (01/06/2024 12:38 PM EDT) Hepatitis A IgM Nonreactive Nonreactive [facility] Comment:IgM antibodies to GUERIN V not detected; does not exclude earlyacute or recovered HAV infection. ~Hepatitis B Surface Antibody REACTIVE Nonreactive [facility] Comment:REACTIVE: > 11.99 mI U/mL Hepatitis B Core Antibody Nonreactive Nonreactive [facility] Hepatitis C Antibody Nonreactive Nonreactive [facility] Comment:Antibodies to HCV no t detected; does not exclude early acuteHCV infection. Hepatitis B Surface Ag Negative Negative [facility] Blood 01/06/2024 12:3 8 PM EDT 01/06/2024 4:21 PM EDT Zeinab Sykes MD LAB BLOOD ORDERABLES Fin al Result [facility] [address] [place] [phone] [phone] * Hm Colonoscopy (11/05/2020 11:36 AM EDT) Historical Provider HEALTH MAINTENANCE Final Result * HPV mRNA E6/E7 (07/07/2020 12:00 AM EST) HPV nRNA E6/E7 Not Detected Not Detected [facility] Comment: This test was performed using the APTIMA HPV Assay ([employer] This assay detects E6/E7 viral messenger RNA (mRNA) from 14 high-risk HPV types (16,18,31,33,35,39,45,51,52,56,58,59,66,68). The analytical performance characteristics of this assay have been determined by [employer]. The modifications have not been cleared or approved by the FDA. This assay has been validated pursuant to the CLIA regulations and is used for clinical purposes. 07/07/2020 Historical Provider LAB BLOOD ORDERABLES Sera l Result [facility] [address] from Last 3 Months or Most Recently Relevant to Health Maintenance Insurance [facility] C3 [facility] HALFWAY OPTIONS (HMO D-SNP) DENTAL [facility] Care Teams Dip Brazier Relationship Specialty Start Date End Date Zeinab Sykes MD [address] [place] [phone] PCP - General Internal Medicine 01/02/24 Tomeka Matrins Energy Conservation RepresentativeChief Innovation Officer 10/27/23 [employer] 11/06/24
--- OUTSIDE RECORDS SUMMARY | 2025-05-15 15:05 | XMS_ITS | Encounter Summary ---
Author Organization [employer] Address [address] [facility] [address] [place] [address] Care Team Providers Care Yeast Tender Name Role Phone Evelyn LedesmaP Primary Care Provider Oralia Dukes MD Primary Care Provider [phone] Zeinab Sykes MD Primary Care Provider + Reason for Visit * Reason Onset Date Comments medical clearance 02/11/2023 Encounter Details Date Type Department Care Team (Late st Contact Info) Description 02/11/2023 Telephone [facility] CHC ADULT DENTAL [address] [place] [address] Asad Shore, DDS [address] [place] [address] medical clearance Social History Tobacco Use Types [...] 05/17/2025 1:00 PM EDT Nutrition [facility] DIABETES/NUTRITION [address] [place] [address] [place] [address] 05/28/2025 11:00 AM EST Office Visit [facility] MEDICINE [address] [place] [address] 06/05/2025 11:30 AM EST Office Visit [facility] MEDICINE [address] [place] [address] Zeinab Sykes MD [address] [place] [address] 10/03/2025 12:45 PM EDT Office Visit [facility] ADULT DENTAL [address] [place] [address] Mykel, Fabi [address] [place] [address] documented as of this encounter Goals Goal Patient Goal Type Associated Problems Recent Progress Patient-Stated? Author Patient will manage their medication General On track( 023 11:18 AM EDT) Citlali Ocampo, PharmD Note: Began medboxes. Goal achieved 11/19/22. Patient graduated from [facility]. documented as of this encounter Visit Diagnoses Not on filedocumented in this encounter Care Teams Yeast Tender Relationship Specialty Start Date End Date Evelyn Ledesma FNP PCP - General Family Medicine 03/15/22 04/25/23 Oralia Aguila MD [address] [place] [phone] PCP - General Family Medicine 04/26/23 01/01/24 Zeinab Sykes MD [address] [place] [phone] PCP - General Internal Medicine 01/02/24 Tomeka Martins Binder OperatorConcessions Manager 10/27/23 [employer] 11/06/24 documented as of this encounter
== END 2025-05-14 11:41 | disposition home or self-care (01) ==
LOC: HO.HHCLNP 11:40
DX: R39.9 Unspecified symptoms and signs involving the genitourinary system (principal)
CPT/HCPCS: 87086

== ENCOUNTER 2025-05-23 15:13 | Outpatient (REF) | payer OTHER, SELFPAY ==
--- NOTE | ~2025-05-23 | XR_ITS ---
EXAMINATION: XR ABDOMEN 1 VIEW (KUB) HISTORY: persistent b/l flank pain COMPARISON: There are no prior studies available for comparison. FINDINGS: Supine and upright views of the abdomen are submitted. The bowel gas pattern is unremarkable, without evidence of mechanical obstruction. The diaphragms are excluded on the upright view, making evaluation for free intraperitoneal gas and possible. There is a large amount of stool throughout the colon. No abnormal calcifications are identified. There are no abnormal soft tissue masses. A sacral stimulator is noted on the left. XR/XR KUB IMPRESSION: No suspicious calcifications are identified. Electronically signed by: Daron Smith MD 05/23/2025 03:41 PM [facility]
--- OUTSIDE RECORDS SUMMARY | 2025-05-23 14:20 | XMS_ITS | Encounter Summary ---
Author Organization [employer] Address [address] [place] [address] 7t [place] [address] Care Team Providers Care Wood Preparation Supervisor Name Role Phone Zeinab Sykes MD Primary Care Provider + Reason for Referral * Imaging (Urgent) - Authorized Specialty Diagnoses / Procedures Referred By Contac t Referred To Contact Radiology Diagnoses Bilateral flank pain Procedures US RENAL BI Jayne Maurer DO [address] [place] [address] Phone: tel: fax: [address] Phone: tel: fax: Referral ID Status Reason Start Date Expiration Date V isits Requested Visits Authorized [id number] Authorized 05/23/2025 05/23/2026 1 1 Encounter Details Date Type Department Care Team (Late st Contact Info) Description 05/23/2025 2:20 PM EST Office Visit [facility] [address] [place], [place] [phone] Jayne Maurer DO [address] [place], [place] [phone] Bilateral flank pain (Primary Dx); Vaginal itching Social History Tobacco Use Types Packs/Day Years [...] Sign Reading Time Taken Comments Blood Pressure 130/70 05/23/2025 2:29 PM EST Pulse 74 05/23/2025 2:29 PM EST Temperature 36.9 C (98.4 F) 05/23/2025 2:29 PM EST Respiratory Rate 20 05/23/2025 2:29 PM EST Oxygen Saturation 97% 05/23/2025 2:29 PM EST Inhaled Oxygen Concentration - - Weight 90.7 kg (200 lb) 05/23/2025 2:29 PM EST Height 160 cm (5' 3 ) 05/23/2025 2:29 PM EST Body Mass Index 35.43 05/23/2025 2:29 PM EST documented in this encounter Progress Notes * Jayne Erasto, DO - 05/23/2025 2:20 PM EST SUBJECTIVE Rhonda Mcluaghlin is a 64 y.o. female who presents for Sick Visit. She presents to [place] today c/o vaginal sx. She was seen 2 weeks ago in [place] with UTI sx and was treated empirically with macrobid. She returned last week c/o persistent sx with pelvic and flank pain. She was treated with cipro BIDfor a complicated UTI. Her Ucx grew mixed tamara. She now presents with vaginal sx. She c/o vaginal itching on the outside which started 2 d/a. She reports some thin, white vaginal discharge. She says that she has not had any cottage cheese discharge that she had before. She has a lot of vaginal itching and irritation. She denies any odor. She also c/o continued pain. She completed her second course of abx but she is having persistent back pain. She says she always has LBP but it has been much more severe for the last 3 weeks since herurinary sx began. She denies any dysuria or hematuria. She says that she always has urinary frequency. She has no h/o renal stones. History provided by: Patient reliability specialist used: No Vaginal Itching Severity: Moderate Onset quality: Sudden Duration: 2 days Timing: Constant Chronicity: New Associated symptoms: no abdominal pain, no chest pain, no cough, no diarrhea, no fever, no headaches, no nausea, no shortness of breath and no vomiting Review of Systems Constitutional: Negative for activity change, appetite change, chills, fever and unexpected weight change. Respiratory: Negative for cough and shortness of breath. Cardiovascular: Negative for chest pain, palpitations and leg swelling. Gastrointestinal: Negative for abdominal pain, diarrhea, nausea and vomiting. Genitourinary: Positive for dysuria, pelvic pain, vaginal discharge (+pruritis) and vaginal pain. Negative for vaginal bleeding. Neurological: Negative for weakness and headaches. Patient Active Problem List Diagnosis S/P placement of VNS (vagus nerve stimulation) device Essential hypertension Other intervertebral disc displacement, lumbar region Type 2 diabetes mellitus without complication Moderate persistent asthma without complication Detrusor overactivity Neurostimulator device in situ Obesity Health care maintenance Exostosis of right foot Hallux rigidus of right foot Mixed incontinence Rectocele Neuropathy Gastroesophageal reflux disease without esophagitis RUQ pain Stage 3a chronic kidney disease (CMS/HCC) (HCC) Moderate persistent asthma with acute exacerbation Seborrheic dermatitis of scalp Housing insecurity Dyslipidemia Fatty liver Long-term current use of opiate analgesic Postmenopause bleeding Left foot pain Lumbar back pain with radiculopathy affecting left lower extremity Recurrent major depressive disorder, in partial remission (CMS/HCC) ADELAIDE (obstructive sleep apnea) Arthritis Vitamin D deficiency Dental plaque Generalized gingival recession Gingival bleeding Excessive attrition of teeth Edentulism Memory impairment Tubular adenoma of colon Allergies Allergen Reactions Pineapple Angioedema Other Reaction(s): TONGUE SWELLS Latex Rash and Unknown OBJECTIVE Visit Vitals BP 130/70 (BP Location: Left arm, Patient Position: Sitting, BP Cuff Size: Adult) Pulse 74 Temp 98.4 ??F (36.9 ??C) (Oral) Resp 20 Ht 5' 3 (1.6 m) Wt 200 lb (90.7 kg) SpO2 97% BMI 35.43 kg/m?? OB Status Postmenopausal Smoking Status Never BSA 2.01 m?? Physical Exam Constitutional: General: She is not in acute distress. Appearance: Normal appearance. Cardiovascular: Rate and Rhythm: Normal rate and regular rhythm. Heart sounds: Normal heart sounds. No murmur heard. Pulmonary: Effort: Pulmonary effort is normal. Breath sounds: Normal breath sounds. No wheezing or rhonchi. Abdominal: General: Bowel sounds are normal. Palpations: Abdomen is soft. There is no mass. Tenderness: There is no abdominal tenderness. There is right CVA tenderness and left CVA tenderness. There is no guarding or rebound. Neurological: General: No focal deficit present. Mental Status: She is alert and oriented to person, place, and time. Cranial Nerves: No cranial nerve deficit. Motor: No weakness. Gait: Gait normal. Psychiatric: Mood and Affect: Mood normal. Assessment/Plan Diagnoses and all orders for this visit: Vaginal itching Probable candidiasis after recent antibiotic use -treat empirically with diflucan -trial terconazole cream for symptomatic relief -send BV panel and GC/CT -advised contact [facility] if sx do not resolve Bilateral flank pain Persistent symptoms for 3 weeks -send Ucx r/o UTI -referred for KUB and renal US r/o stones -cont pain meds as needed -advised rtc or go to ED if severe worsening pain, fevers or vomiting, she agrees with plans --Follow-up with PCP as scheduled or sooner prn-- Current Outpatient Medications: albuterol (2.5 MG/3ML) 0.083% nebulizer solution, Take 3 mL (2.5 mg) by nebulization every 4 (four)hours if needed for wheezing or shortness of breath (Maximum 4 treatments per day)., Disp: 75 mL, Rfl: 2 Alcohol Swabs (Alcohol Prep) pads, USE TWICE DAILY, Disp: 100 each, Rfl: 5 amLODIPine-valsartan (Exforge) 10-320 MG tablet, TAKE 1 TABLET BY MOUTH EVERY MORNING, Disp: 90 tablet, Rfl: 3 ammonium lactate (Lac-Hydrin) 12 % lotion, apply twice daily to affected area, rub in well, Disp: ,Rfl: atorvastatin (Lipitor) 20 MG tablet, TAKE 1 TABLET BY MOUTH AT BEDTIME, Disp: 90 tablet, Rfl: 3 azelaic acid (Azelex) 20 % cream, Apply topically 2 times daily., Disp: 50 g, Rfl: 0 betamethasone dipropionate (Diprosone) 0.05 % lotion, APPLY TOPICALLY TO SCALP TWICE DAILY (for itching), DECREASE WHEN SYMPTOMS IMPROVE, Disp: , Rfl: Blood Glucose Monitoring Suppl (FreeStyle glucose monitoring) kit, 1 each if needed., Disp: , Rfl: Blood Pressure kit, , Disp: , Rfl: celecoxib (CeleBREX) 100 MG capsule, TAKE 1 CAPSULE BY MOUTH TWICE DAILY, Disp: 60 capsule, Rfl: 3 cetirizine (ZyrTEC) 10 MG tablet, TAKE 1 TABLET BY MOUTH EVERY MORNING, Disp: 90 tablet, Rfl: 3 chlorthalidone (Hygroton) 25 MG tablet, TAKE 1/2 TABLET BY MOUTH EVERY MORNING, Disp: 45 tablet, Rfl: 3 Clobetasol Propionate 0.05 % lotion, APPLY TO SCALP TWICE DAILY NEEDED FOR FLARE, Disp: , Rfl: desonide (DesOwen) 0.05 % cream, APPLY TOPICALLY TO FACE (for itching) ONCE DAILY NEEDED. DECREASE WHEN SYMPTOMS IMPROVE, Disp: , Rfl: Diclofenac Sodium 1 % gel, Apply 2 g topically 4 times daily., Disp: 100 g, Rfl: 1 doxepin (SINEquan) 10 MG capsule, Take 10 mg by mouth in the morning., Disp: , Rfl: ergocalciferol (Vitamin D2) 1.25 MG (31223 UT) capsule, TAKE 1 CAPSULE BY MOUTH ONCE WEEKLY ON TUESDAY MORNING, Disp: 12 capsule, Rfl: 1 fluconazole (Diflucan) 150 MG tablet, Take 1 tablet (150 mg) by mouth 1 (one) time for 1 dose., Disp: 1 tablet, Rfl: 0 FreeStyle lancets, 1 each by Other route Once per day. USE TO TEST BLOOD SUGAR ONCE A DAY, Disp: 100 each, Rfl: 3 gabapentin (Neurontin) 300 MG capsule, TAKE 1 CAPSULE BY MOUTH THREE TIMES DAILY IN THE MORNING, EVENING, AND BEDTIME, Disp: 90 capsule, Rfl: 3 glucose blood (FREESTYLE LITE) test strip, USE TO TEST BLOOD SUGAR ONCE A DAY, Disp: 100 each, Rfl:3 hydrOXYzine HCl (Atarax) 25 MG tablet, Take 1 tablet by mouth every 8 (eight) hours. PRN itching, Disp: , Rfl: lidocaine (Lidoderm) 5 % patch, APPLY 1 PATCH TOPICALLY TO SKIN, LEAVE ON FOR 12 HOURS AND OFF FOR 12 HOURS DIRECTED, Disp: 30 patch, Rfl: 3 melatonin 5 MG tablet, TAKE 2 TABLETS BY MOUTH EVERY DAY AT BEDTIME, Disp: 180 tablet, Rfl: 1 minoxidil (Loniten) 2.5 MG tablet, Take 1.25 mg by mouth in the morning., Disp: , Rfl: Misc. Devices (Cane) misc, , Disp: , Rfl: Myrbetriq 25 MG 24 hr tablet, Take 25 mg by mouth in the morning., Disp: , Rfl: nystatin (Mycostatin) ointment, Apply topically 2 times daily. Apply to the affected area two timesa day- corner of the mouth., Disp: 15 g, Rfl: 1 ondansetron (Zofran) 4 MG tablet, Take 1 tablet (4 mg) by mouth every 8 (eight) hours if needed fornausea or vomiting., Disp: 12 tablet, Rfl: 0 oxyCODONE-acetaminophen (Percocet) 5-325 MG tablet, Take 1 tablet by mouth every 6 (six) hours if needed for severe pain for up to 28 days. Do not start before April 26, 2025., Disp: 112 tablet, Rfl: 0 oxymetazoline (Afrin Nasal [place]) 0.05 % nasal spray, Administer 2 sprays into each nostril every 12 (twelve) hours if needed for congestion for up to 2 days. Do not use for more than 3 days., Disp: 30 mL, Rfl: 0 pantoprazole (ProtoNix) 20 MG EC tablet, Take 20 mg by mouth in the morning., Disp: , Rfl: Respiratory Therapy Supplies (Nebulizer) device, , Disp: , Rfl: Symbicort 160-4.5 MCG/ACT inhaler, Inhale 2 puffs 2 times daily., Disp: , Rfl: terconazole (Terazol 7) 0.4 % vaginal cream, Insert 1 applicator into the vagina at bedtime for 7 days., Disp: 45 g, Rfl: 0 Turmeric 500 MG capsule, Use 3 capsules per day. Patient purchases OTC., Disp: , Rfl: Scribe Attestation: Gerald Lehman, am serving as a scribe to document services personally performed by Jayne Garner, based on the patient's response to questions by provider and provider's statements to me. 05/23/25 5:12 PM Physicians Attestation: Jayne Lehman DO, have reviewed the information by the scribe, Gerald Brand, for accuracy and agree with its content. documented in this encounter Plan of Treatment Upcoming Encounters Date Type Department Care Team (Late st Contact Info) Description 05/28/2025 11:00 AM EST Office Visit [facility] [address] [place] [phone] 06/05/2025 11:30 AM EST Office Visit [facility] [address] [place] [phone] Zeinab Sykes MD [address] [place] [address] 06/12/2025 3:30 PM EST Office Visit [facility] ADULT DENT[facility] [address] [place] [address] Watkins-Maynard, Gay, DDS [address] [place] [address] 08/13/2025 9:00 AM EST Nutrition [facility] DIABETES/NUTRITION [address] [place] [address] Czepiel, Juana, RD [address] [place] [address] 10/03/2025 12:45 PM EDT Office Visit [facility] ADULT DENT[facility] [address] [place] [address] Mykel, Fabi [address] [place] [address] Scheduled Orders Name Type Priority Associated Diagnoses Orde r Schedule Chlamydia/N. Gonorrhoeae RNA, TMA, Vaginal Microbiology Routine Vaginal itching Ordered: 05/23/2025 Bacterial Vaginosis Panel Microbiology Routine Vaginal itching Ordered: 05/23/2025 Culture, Urine, Routine Microbiology Routine Vaginal itching Expected: 05/23/2025 (Approximate), Expires: 05/23/2026 US RENAL BI Imaging Urgent Bilateral flank pain Expected: 05/23/2025, Expires: 05/23/2026 documented as of this encounter Goals Goal Patient Goal Type Associated Problems Recent Progress Patient-Stated? Author Patient will manage their medication General On track( 023 11:18 AM EDT) Citlali Ocampo, PharmD Note: Began medboxes. Goal achieved 11/19/22. Patient graduated from [facility]. documented as of this encounter Procedures Procedure Name Priority Date/Time Associated Diagnosis Comments XR KUB AND UPRIGHT 2 VIEWS Urgent 05/23/2025 3:30 PM EST Bilateral flank pain documented in this encounter Results * XR KUB and Upright 2 Views (05/23/2025 3:30 PM EST) Anatomical Region Laterality Modality Radiographic Celia ging 05/23/2025 3:30 PM EST Narrative 05/23/2025 3:44 PM EST [facility] [address] [place] [address] XRay Report Signed Patient: Rhonda Frenández MR# : [id number] : 1960 Acct:[id number] Age/Sex: 64 / F ADM Date: 05/23/25 Loc: [facility] Attending Dr: Jayne Maurer DO Ordering Physician: Jayne Maurer DO Date of Service: 05/23/25 Procedure(s): XR KUB Accession Number(s): [id number] cc: Jayne Maurer DO Reason for Exam: persistent b/l flank pain EXAMINATION: XR ABDOMEN 1 VIEW (KUB) HISTORY: persistent b/l flank pain COMPARISON: There are no prior studies available for comparison. FINDINGS: Supine and upright views of the abdomen are submitted. The bowel gas pattern is unremarkable, without evidence of mechanical obstruction. The diaphragms are excluded on the upright view, making evaluation for free intraperitoneal gas and possible. There is a large amount of stool throughout the colon. No abnormal calcifications are identified. There are no abnormal soft tissue masses. A sacral stimulator is noted on the left. XR/XR KUB IMPRESSION: No suspicious calcifications are identified. Electronically signed by: Daron Smith MD 05/23/2025 03:41 PM EST Dictated By: Daron Smith MD Signed By: <Electronically signed by Daron Smith MD in OV> 05/23/25 1541 DD/ 1530 TD/TT: 05/23/25 1533 Mobile Therapist: Procedure Note Donotuseinterpreter, Image - 05/23/2025 [facility] [address] [place] [address] XRay Report Signed Patient: Spenser FernándezR# : [id number] : 1960Acct:[id number] Age/Sex: 64 / FADM Date: 05/23/25 Loc: [facility] Attending Dr: Jayne Maurer DO Ordering Physician: Jayne Maurer DO Date of Service: 05/23/25 Procedure(s): XR KUB Accession Number(s): [id number] cc: Jayne Maurer DO Reason for Exam: persistent b/l flank pain EXAMINATION: XR ABDOMEN 1 VIEW (KUB) HISTORY: persistent b/l flank pain COMPARISON: There are no prior studies available for comparison. FINDINGS: Supine and upright views of the abdomen are submitted. The bowel gas pattern is unremarkable, without evidence of mechanical obstruction. The diaphragms are excluded on the upright view, making evaluation for free intraperitoneal gas and possible. There is a large amount of stool throughout the colon. No abnormal calcifications are identified. There are no abnormal soft tissue masses. A sacral stimulator is noted on the left. XR/XR KUB IMPRESSION: No suspicious calcifications are identified. Electronically signed by: Daron Smith MD 05/23/2025 03:41 PM EST RP Dictated By: Daron Smith MD Signed By: <Electronically signed by Daron Smith MD in OV> 05/23/25 1541 DD/ 1530 TD/TT: 05/23/25 1533 Mobile Therapist: Jayne Maurer DO IMG XR PROCEDURES Final Resu lt documented in this encounter Visit Diagnoses Diagnosis Bilateral flank pain- Primary Abdominal pain, unspecified site Vaginal itching Pruritus of genital organs documented in this encounter Additional Health Concerns Assessment Noted Time PHQ-9 Depression Total Score: 22 025 10:31 AM EST documented as of this encounter Care Teams Wood Preparation Supervisor Relationship Specialty Start Date End Date Zeinab Sykes MD [address] [place] [phone] PCP - General Internal Medicine 01/02/[address] InspectorMusic Pastor 10/27/23 Elara Caring 11/06/24 documented as of this encounter
--- OUTSIDE RECORDS SUMMARY | 2025-05-23 18:13 | XMS_ITS | Encounter Summary ---
Author Organization [employer] Address [address] [facility] 7t [place] [address] Care Team Providers Care Jute Bag Clipper Name Role Phone Evelyn Ledesma Primary Care Provider Oralia Dukes MD Primary Care Provider [phone] Zeinab Sykes MD Primary Care Provider + Reason for Visit * Reason Onset Date Comments Appointment Request 12/20/2022 Encounter Details Date Type Department Care Team (Late st Contact Info) Description 12/20/2022 Telephone [facility] MEDICINE [address] [place] [address] Evelyn Ledesma FNP Appointment Request Social History [...] an earlier day) Please contact pt at [phone] documented in this encounter Plan of Treatment Upcoming Encounters Date Type Department Care Team (Late st Contact Info) Description 05/28/2025 11:00 AM EST Office Visit [facility] MEDICINE [address] [place] [address] 06/05/2025 11:30 AM EST Office Visit [facility] MEDICINE [address] [place] [address] Zeinab Sykes MD [address] [place] [address] 06/12/2025 3:30 PM EST Office Visit [facility] ADULT DENTAL [address] [place] [address] Watkins-MaynardSergio jaffefemia, DDS [address] [place] [address] 08/13/2025 9:00 AM EST Nutrition [facility] DIABETES/NUTRITION [address] [place] [address] Juana Gusman, RD 230 [place] [address] 10/03/2025 12:45 PM EDT Office Visit [facility] ADULT DENTAL [address] [place] [address] Mykel, Fabi [address] [place] [address] documented as of this encounter Goals Goal Patient Goal Type Associated Problems Recent Progress Patient-Stated? Author Patient will manage their medication General On track( 023 11:18 AM EDT) Citlali Ocampo, Anoop Note: Began medboxes. Goal achieved 11/19/22. Patient graduated from [facility]. documented as of this encounter Visit Diagnoses Not on filedocumented in this encounter Care Teams Jute Bag Clipper Relationship Specialty Start Date End Date Evelyn Ledesma FNP PCP - General Family Medicine 03/15/22 04/25/23 Oralia Aguila MD [address] [place] [address] PCP - General Family Medicine 04/26/23 01/01/24 Zeinab Sykes MD [address] [place] [address] PCP - General Internal Medicine 01/02/24 Tomeka Martins Process MechanicInformation Resources Manager 10/27/23 [employer] 11/06/24 documented as of this encounter
--- OUTSIDE RECORDS SUMMARY | 2025-05-23 18:13 | XMS_ITS | Encounter Summary ---
Author Organization [employer] Address [address] [facility] 7t [place] [address] Care Team Providers Care Emergency Management Director Name Role Phone Zeinab Sykes MD Primary Care Provider + Reason for Visit * Reason Comments Med Refill Encounter Details Date Type Department Care Team ([facility] st Contact Info) Description 02/16/2025 Refill [facility] MEDICINE [address] [place], [place] [phone] Zeinab Sykes MD 230 [place] [address] Neuropathy Social History Tobacco Use Types Packs/Day [...] Description 05/28/2025 11:00 AM EST Office Visit [facility] MEDICINE [address] [place] [address] 06/05/2025 11:30 AM EST Office Visit [facility] MEDICINE [address] [place] [address] Zeinab Sykes MD [address] [place] [address] 06/12/2025 3:30 PM EST Office Visit [facility] ADULT DENTAL [address] [place] [address] Gay Thompson, DDS 230 [place] [address] 08/13/2025 9:00 AM EST Nutrition [facility] DIABETES/NUTRITION 230 [place] [address] Juana Gusman, MONICA 230 [place] [address] 10/03/2025 12:45 PM EDT Office Visit [facility] ADULT DENTAL [address] [place] [address] Fabi Hogue 230 [place] [address] documented as of this encounter Goals Goal [...] documented as of this encounter Care Teams Emergency Management Director Relationship Specialty Start Date End Date Zeinab Sykes MD 230 [place] [address] PCP - General Internal Medicine 01/02/24 Tomeka Martins Sales Project AdministratorUniversal Branch Consultant 10/27/23 [employer] 11/06/24 documented as of this encounter
--- OUTSIDE RECORDS SUMMARY | 2025-05-23 18:13 | XMS_ITS | Clinical Summary ---
Author Organization [facility] Address [address] [place] [address] Care Team Providers Care Mid Teacher Name Role Phone Meryl Montes Primary Care Provider Surgical History Surgery Date Site/Laterality Comments BREAST REDUCTION PROCEDURE: UT BREAST REDUCTION BACK SURGERY PROCEDURE: HISTORICAL BACK SURGERY; COMMENT: L4-5 rt L5-S1 decomp 05/26/18 Medical History Medical History Date Comments Asthma DX:Asthma Diabetes mellitus type 2, co ntrolled, with complications (CMS/HCC V24, CMS/HCC V28) DX:Diabetes mellitus type 2, controlled, with complications ([facility]) Essential hypertension DX:Essent ial hypertension Depressive [...] age to complete this topic Care Teams Mid Teacher Relationship Specialty Start Date End Date Meryl Montes [address] [place] [phone] PCP - General 05/07/22
--- OUTSIDE RECORDS SUMMARY | 2025-05-23 18:13 | XMS_ITS | Encounter Summary ---
Author Organization [employer] Address [address] [facility] 7t [place] [address] Care Team Providers Care Utility Worker Roller Shop Name Role Phone Evelyn LedesmaP Primary Care Provider Oralia Dukes MD Primary Care Provider [phone] Zeinab Sykes MD Primary Care Provider + Reason for Visit * Reason Onset Date Comments case from lab 11/04/2022 Encounter Details Date Type Department Care Team (Late st Contact Info) Description 11/04/2022 Telephone [facility] ADULT DENTAL [address] [place] [address] Asad Shore, DDS [address] [place] [address] case from lab Social History Tobacco Use [...] back from lab. * Telephone Encounter - Celyhenrik Guidrys - 11/04/2022 2:46 PM EDT Patient is calling in to confirm if case is back from lab. documented in this encounter Plan of Treatment Upcoming Encounters Date Type Department Care Team (Late st Contact Info) Description 05/28/2025 11:00 AM EST Office Visit [facility] MEDICINE [address] [place] [address] 06/05/2025 11:30 AM EST Office Visit [facility] MEDICINE [address] [place] [address] Zeinab Sykes MD 230 [place] [address] 06/12/2025 3:30 PM EST Office Visit [facility] ADULT DENTAL [address] [place] [address] Watkins-Maynard, Gay, DDS 230 [place] [address] 08/13/2025 9:00 AM EST Nutrition [facility] DIABETES/NUTRITION [address] [place] [address] Juana Gusmna, RD 230 [place] [address] 10/03/2025 12:45 PM EDT Office Visit [facility] ADULT DENTAL [address] [place] [address] Mykel, Fabi [address] [place] [address] documented as of this encounter Visit Diagnoses Not on filedocumented in this encounter Care Teams Utility Worker Roller Shop Relationship Specialty Start Date End Date Evelyn Ledesma FNP PCP - General Family Medicine 03/15/22 04/25/23 Oralia Aguila MD 230 [place] [address] PCP - General Family Medicine 04/26/23 01/01/24 Zeinab Sykes MD 230 [place] [address] PCP - General Internal Medicine 01/02/24 Tomeka Martins Military Pay ClerkArson And Bomb Investigator 10/27/23 [employer] 11/06/24 documented as of this encounter
--- OUTSIDE RECORDS SUMMARY | 2025-05-23 18:13 | XMS_ITS | Encounter Summary ---
Author Organization [employer] Address [address] [place] [address] 7t [place] [address] Care Team Providers Care Coal Sample Tester Name Role Phone Evelyn Ledesma Primary Care Provider Silvana Oralia Alamo MD Primary Care Provider [phone] Zeinab Sykes MD Primary Care Provider + Encounter Details Date Type Department Care Team ([facility] Contact Info) Description 10/22/2022 Orders Only [facility] MEDICINE [address] [place] [address] Evelyn Ledesma FNP Social History Tobacco Use [...] Department Care Team ([facility] Contact Info) Description 05/28/2025 11:00 AM EST Office Visit [address] [address] 06/05/2025 11:30 AM EST Office Visit [address] [place] [address] Zeinab Sykes MD 230 [place] [address] 06/12/2025 3:30 PM EST Office Visit [facility] ADULT DENTAL [address] [place] [address] Watkins-Maynard, Gay, DDS [address] [place] [address] 08/13/2025 9:00 AM EST Nutrition [facility] DIABETES/NUTRITION [address] [place] [address] Juana Gusman, RD 230 [place] [address] 10/03/2025 12:45 PM EDT Office Visit [facility] ADULT DENTAL [address] [place] [address] Mykel, Fabi [address] [place] [address] documented as of this encounter Visit Diagnoses Not on filedocumented in this encounter Care Teams Coal Sample Tester Relationship Specialty Start Date End Date Evelyn Ledesma FNP PCP - General Family Medicine 03/15/22 04/25/23 Oralia Aguila MD [address] [place] [address] [phone] PCP - General Family Medicine 04/26/23 01/01/24 Zeinab Sykes MD [address] [place] [address] PCP - General Internal Medicine 01/02/24 Tomeka Martins Residential Solar ConsultantMiddle School Humanities Teacher 10/27/23 [employer] 11/06/24 documented as of this encounter
--- OUTSIDE RECORDS SUMMARY | 2025-05-23 18:13 | XMS_ITS | Encounter Summary ---
Author Organization [employer] Address [address] [facility] 7t [place] [address] Care Team Providers Care Crystal Lapper Name Role Phone Evelyn Ledesma Primary Care Provider Oralia Dukes MD Primary Care Provider Zeinab Sykes MD Primary Care Provider + Reason for Visit * Reason Onset Date Comments Prior Authorization 12/28/2022 Encounter Details Date Type Department Care Team (Late st Contact Info) Description 12/28/2022 Telephone [facility] MEDICINE [address] [place] [address] Evelyn Ledesma FNP Prior Authorization Social History [...] AM EDT T/C placed to pt via [employer] Zeinab #[id number]. Advised of message from pcp re: lab [...] all other NSAIDS. Do you have a pharmacy technology instructor yet? If not, your PCP would like [...] Please call to clarify at phone # [phone] . documented in this encounter Plan of Treatment Upcoming Encounters Date Type Department Care Team (Late st Contact Info) Description 05/28/2025 11:00 AM EST Office Visit [facility] MEDICINE [address] [place] [address] 06/05/2025 11:30 AM EST Office Visit [facility] MEDICINE [address] [place] [address] Zeinab Sykes MD 230 [place] [address] 06/12/2025 3:30 PM EST Office Visit [facility] ADULT DENTAL [address] [place] [address] Watkins-Maynard, Gay, DDS 230 [place] [address] 08/13/2025 9:00 AM EST Nutrition [facility] DIABETES/NUTRITION [address] [place] [address] Czepamena, Juana, RD 230 [place] [address] 10/03/2025 12:45 PM EDT Office Visit [facility] ADULT DENTAL [address] [place] [address] Mykel, Fabi [address] [place] [address] documented as of this encounter Goals Goal Patient Goal Type Associated Problems Recent Progress Patient-Stated? Author Patient will manage their medication General On track( 023 11:18 AM EDT) Citlali Ocampo, MikeyD Note: Began medboxes. Goal achieved 11/19/22. Patient graduated from [facility]. documented as of this encounter Visit Diagnoses Not on filedocumented in this encounter Care Teams Crystal Lapper Relationship Specialty Start Date End Date Evelyn Ledesma FNP PCP - General Family Medicine 03/15/22 04/25/23 Oralia Aguila MD [address] [place] [address] PCP - General Family Medicine 04/26/23 01/01/24 Zeinab Sykes MD [address] [place] [address] PCP - General Internal Medicine 01/02/24 Tomeka Martins Informatica DeveloperField Horticultural Specialty Grower 10/27/23 [employer] 11/06/24 documented as of this encounter
--- OUTSIDE RECORDS SUMMARY | 2025-05-23 18:13 | XMS_ITS | Encounter Summary ---
Author Organization [employer] Address [address] [place] [address] 7t [place] [address] Care Team Providers Care Rug Cleaning Supervisor Name Role Phone Evelyn Ledesma Primary Care Provider Silvana Oralia Alamo MD Primary Care Provider [phone] Zeinab Sykes MD Primary Care Provider + Encounter Details Date Type Department Care Team ([facility] Contact Info) Description 08/20/2022 Orders Only [address] [address] Karen Henderson FNP Social History Tobacco Use [...] Type Department Care Team ([facility] Contact Info) Description 05/28/2025 11:00 AM EST Office Visit [address] [address] 06/05/2025 11:30 AM EST Office Visit [address] [place] [address] Zeinab Sykes MD 230 [place] [address] 06/12/2025 3:30 PM EST Office Visit [facility] ADULT DENTAL 230 [place] [address] Watkins-Maynard, Gay, DDS [address] [place] [address] 08/13/2025 9:00 AM EST Nutrition [facility] DIABETES/NUTRITION [address] [place] [address] LeoraepJuana beckwith, RD 230 [place] [address] 10/03/2025 12:45 PM EDT Office Visit [facility] ADULT DENTAL [address] [place] [address] Mykel, Fabi [address] [place] [address] documented as of this encounter Visit Diagnoses Not on filedocumented in this encounter Care Teams Rug Cleaning Supervisor Relationship Specialty Start Date End Date Evelyn Ledesma FNP PCP - General Family Medicine 03/15/22 04/25/23 Oralia Aguila MD [address] [place] [address] PCP - General Family Medicine 04/26/23 01/01/24 Zeinab Sykes MD [address] [place] [address] [phone] PCP - General Internal Medicine 01/02/24 Tomeka Martins Crating And Moving EstimatorSolar Consultant 10/27/23 [employer] 11/06/24 documented as of this encounter
--- OUTSIDE RECORDS SUMMARY | 2025-05-23 18:14 | XMS_ITS | Encounter Summary ---
Author Organization [employer] Address [address] [place] [address] 7 [place] [address] Care Team Providers Care Swamper Name Role Phone Evelyn Ledesma COMPRESSOR STATION ENGINEER Primary Care Provider Oralia Dukes MD Primary Care Provider [phone] Zeinab Sykes MD Primary Care Provider + Encounter Details Date Type Department Care Team (Latest Contact Info) Description 10/30/2020 Abstract [facility] CONVERSIONS Dental, [...] 11:00 AM EST Office Visit [facility] MEDICINE [address] [place] [address] 06/05/2025 11:30 AM EST Office Visit [facility] MEDICINE [address] [place] [address] Zeinab Sykes MD [address] [place] [address] 06/12/2025 3:30 PM EST Office Visit [facility] ADULT DENTAL [address] [place] [address] Gay Thompson DDS [address] [place] [address] 08/13/2025 9:00 AM EST Nutrition [facility] DIABETES/NUTRITION [address] [place] [address] Juana Gusman, MONICA [address] [place] [address] 10/03/2025 12:45 PM EDT Office Visit [facility] ADULT DENTAL [address] [place] [address] Mykel, Fabi [address] [place] [address] documented as of this encounter Visit Diagnoses Not on filedocumented in this encounter Care Teams Swamper Relationship Specialty Start Date End Date Evelyn Ledesma FNP PCP - General Family Medicine 03/15/22 04/25/23 Oralia Aguila MD [address] [place] [address] PCP - General Family Medicine 04/26/23 01/01/24 Zeinab Sykes MD [address] [place] [address] PCP - General Internal Medicine 01/02/24 Tomeka Martins [employer] Open Stack AdministratorExpressive Therapist 10/27/23 [employer] 11/06/24 documented as of this encounter
--- OUTSIDE RECORDS SUMMARY | 2025-05-23 18:14 | XMS_ITS | Clinical Summary ---
Author Organization [email or web address] Address [address] [facility] [address] [place] [address] Care Team Providers Care Turret Lathe Machinist Name Role Phone Zeinab Sykes MD Primary Care Provider + Allergies Active Allergy Reactions Criticality Noted Date Comments Latex Rash,Unknown Low 06/09/2022 Pineapple Angioedema High 12/15/2022 Other Reaction(s): TONGUE SWELLS Medications * This document contains information received [...] DAILY (for itching), DECREASE WHEN SYMPTOMS IMPROVE Active desonide (DesOwen) 0.05 % cream APPLY [...] in the morning. Active oxymetazoline (Afrin Nasal [place]) 0.05 % nasal spray Administer 2 sprays [...] complication, without long-term current use of insulin (HCC) 1 each by Other route Once per day. USE TO TEST BLOOD SUGAR ONCE A DAY 100 each 3 024 Active glucose blood (FREESTYLE LITE) test stripIndications: Type 2 diabetes mellitus without complication, without long-term current use of insulin (HCC) USE TO TEST BLOOD SUGAR ONCE A DAY 100 each 3 024 Active Alcohol Swabs (Alcohol Prep) padsIndications:T ype 2 diabetes mellitus without complication, without long-term current use of insulin (HCC) USE TWICE DAILY 100 each 5 025 Active albuterol (2.5 MG/3ML) 0.083% nebulizer solution Take 3 mL (2.5 mg) by nebulization every 4 (four) hours if needed for wheezing or shortness of breath (Maximum 4 treatments per day). 75 mL 2 025 2025 Active chlorthalidone (Hygroton) 25 MG tablet TAKE 1/2 TABLET BY MOUTH EVERY MORNING 45 tablet 3 025 Active nystatin (Mycostatin) ointment Apply topically [...] 2025 Active ergocalciferol (Vitamin D2) 1.25 MG (29487 UT) capsule TAKE 1 CAPSULE BY MOUTH [...] MOUTH AT BEDTIME 90 tablet 3 Active fluconazole (Diflucan) 150 MG tablet Take 1 tablet (150 mg) by mouth 1 (one) time for 1 dose. 1 tablet 025 2024 Active terconazole (Terazol 7) 0.4 % vaginal cream Insert 1 applicator into the vagina at bedtime for 7 days. 45 g 025 2024 Active atorvastatin (Lipitor) 20 MG tablet Take 1 tablet (20 mg) by mouth at bedtime. 90 tablet 3 024 2024 Discontinued oxyCODONE-acetami nophen (Percocet) 5-325 MG [...] for 5 days. 10 capsule 025 2024 ciprofloxacin (Cipro) 500 MG tabletIndications :Complicated UTI (urinary tract infection) Take 1 tablet (500 mg) by mouth 2 times daily for 7 days. 14 tablet 025 2024 Discontinued(T herapy completed) Active Problems Problem Noted Date Diagnosed Date [...] bx, I will fu or refer to [employer] after US reports. Left foot pain 03/29/2024 [...] L4-5 and right L5-S1 decompressive laminectomy at [facility] - surgeon Dr. Melia Pedroza DME request for 10-in-1 pillow on 07/31/24 (not approved by insurance) Assessment & Plan (10/23/2024 2:47 PM EDT): Known DDD L-spine with radiculopathy sxs 05/26/2018 - Lumbar decompression surgery: L4-5 and right L5-S1 decompressive laminectomy at [facility] - surgeon Dr. Melia Pedroza DME request for 10-in-1 pillow on 07/31/24 (not approved by insurance) Assessment & Plan (09/27/2024 11:23 AM EDT): Known DDD L-spine with radiculopathy sxs 05/26/2018 - Lumbar decompression surgery: L4-5 and right L5-S1 decompressive laminectomy at [facility] - surgeon Dr. Melia Pedroza DME request for 10-in-1 pillow on 07/31/24 (not approved by insurance) Assessment & Plan (07/31/2024 4:58 PM EST): Known DDD L-spine with radiculopathy sxs 05/26/2018 - Lumbar decompression surgery: L4-5 and right L5-S1 decompressive laminectomy at [facility] - surgeon Dr. Melia Pedroza DME request for 10-in-1 pillow on 07/31/24 Assessment & Plan (05/29/2024 5:18 PM EST): Known DDD L-spine with radiculopathy sxs 05/26/2018 - Lumbar decompression surgery: L4-5 and right L5-S1 decompressive laminectomy at [facility] - surgeon Dr. Melia Pedroza [...] disc, s/p vagus nerve stimulator, neuropathy Last [employer] Agreement: 02/26/25 Tier 3: [employer] visit Q4-6 months. (Last evaluated Jul 2024 [...] in 3mo Fatty liver 02/04/2024 Overview (03/29/2024): [facility] abd US on 10/2023 showed Fatty liver. Normal LFTs/albumin Assessment & Plan (03/29/2024 1:40 PM EDT): LFTs remain stable/normal. Dx d/w patient and advised her to continue tight control of DM, weight reduction, try to cut down on opiates and fu with me. I also advised her to avoid ETOH or recreational substances. Seborrheic dermatitis of scalp 01/02/2024 Overview (01/02/2024): Seen at [facility] dermatology Assessment & Plan (03/20/2024 3:50 PM EDT): Generally well controlled, encouraged to continue fu with [facility] derm Refill for fluocinolone today. Housing insecurity 01/02/2024 Assessment & Plan (08/15/2024 1:36 PM EST): See above. Applying for housing and need handicap access. Assessment & Plan (03/20/2024 3:51 PM EDT): Awaiting housing application, lives in abasement FU with SDOH. Stage 3a chronic kidney disease (CMS/HCC) 2023 [...] albuterol prn. Will refer her back to dermatology physician assistant. RUQ pain 10/05/2023 Assessment & Plan (11/01/2023 [...] ballon inside the gastric body placed in [place] for bariatric procedure about 20 cm in [...] lumbar r egion 05/17/2017 Overview (09/17/2022): On [employer] contract. discussed tapering percocet options, not interested.. Referred to HIM forms dept for handicap plackards documents. Referred to [facility] for polypharmacy education. Continue medications as prescribed. Discussed Narcan. Encouraged nonpharmacologic pain relief strategies. will f/up next visit Assessment & Plan (04/02/2025 3:45 PM EDT): On [facility] contract, continue Percocet 3-4 times per day and follow-up with chronic pain management program and [employer] nurse. We have done [employer] education re [...] & Plan (03/20/2024 3:48 PM EDT): On [employer] contract. discussed tapering percocet options, not interested, it apparently offers partial enough improvement of sxs. Patient is aware that long term care social worker use of opiates can cause hyperalgesia, liver toxicity, ASIC DESIGN ENGINEER toxicity, increase anxiety, among others. Will continue to work with chronic pain management [facility] clinic. Continue medications as prescribed. [...] PRN for elevated BP readings.. Referred to [facility] for polypharmacy education. Continue [...] pseudophedrine short term. Will refer her to dermatology physician assistant again so she can be evaluated for [...] organization. Date Type Department Care Team Description 05/23/2025 2:20 PM EST Office Visit [facility] [address] [place] [phone] Jayne Maurer DO Bilateral flank pain (Primary Dx); Vaginal itching 05/23/2025 Travel 05/14/2025 3:20 PM EDT Office Visit [facility] [address] [place] [phone] Bjorn Melendez CNP Complicated UTI (urinary tract infection) (Primary Dx); UTI symptoms 05/14/2025 Travel 05/08/2025 Refill [facility] [address] [place] [phone] Zeinab Sykes MD 05/06/2025 11:00 AM EDT Office Visit [facility] [address] [place] [phone] Marie Lozano MD Urinary tract infection without hematuria, site unspecified (Primary Dx); Irregular bowel habits 05/06/2025 Travel 04/25/2025 Telephone [facility] [address] [place] [phone] Zeinab Sykes MD Durable Medical Equipment 04/25/2025 Refill [facility] [address] [place] [phone] Zeinab Sykes MD Other intervertebral disc displacement, lumbar region 04/25/[address] [address] Zeinab Sykes MD Referral 04/24/2025 Orders Only GENERIC EXTERNAL DATA DEPARTMENT Provider, Generic External Data 04/17/2025 Refill [facility] [address] [place] [phone] Zeinab Sykes MD 04/15/[address] [phone] Zeinab Sykes MD Nutrition referral 04/11/[address] [phone] Zeinab Sykes MD 04/10/2025 8:00 AM EDT Office Visit [facility] ADULT DENTAL [address] [place] [phone] Gay Thompson, DDS Ill-fitting dentures (Primary Dx) 04/10/[address] [phone] Zeinab Sykes MD SASH STICKER referral 04/09/[address] [address] Zeinab Sykes MD telephone call; Durable Medical Equipment (DME Request: Incontinence Supplies) 04/04/2025 11:15 AM EDT Office Visit [facility] ADULT DENTAL [address] [place] [phone] Watkins-Maynard, Gay, DDS Edentulism (Primary Dx); Partially edentulous mandible, class I edentulism 04/02/2025 11:15 AM EDT Office Visit [facility] [address] [place] [phone] Zeinab Sykes MD Type 2 diabetes mellitus without complication, without long-term current use of insulin ([facility]) (Primary Dx); Essential hypertension; Arthritis; Moderate persistent asthma without complication; Recurrent major depressive disorder, in partial remission ([facility]); Other intervertebral disc displacement, lumbar region; Memory impairment; Tubular adenoma of colon; Class 2 severe obesity due to excess calories with serious comorbidity and body mass index (BMI) of 35.0 to 35.9 in adult ([facility]); Obesity (BMI 35.0-39.9 without comorbidity); Screening mammogram for breast cancer 04/02/2025 Patient Outreach [facility] [address] [place] [phone] Zeinab Sykes MD Care Coordination (CHW outreach for SDOH housing search-referral completed ) 04/02/2025 Travel 04/02/2025 Telephone [facility] [address] [place] [phone] Zeinab Sykes MD appt change 03/27/2025 11:15 AM EDT Office Visit [facility] ADULT DENTAL [address] [place] [phone] Watkins-Maynard, Gay, DDS Edentulism (Primary Dx); Partially edentulous mandible, class I edentulism 03/27/2025 Refill [facility] [address] [place] [address] Janessa Jolley MD Other intervertebral disc displacement, lumbar region 03/19/2025 11:00 AM EDT Office Visit [facility] ADULT DENTAL [address] [place] [address] Watkins-Maynard, Gay, DDS Edentulism (Primary Dx); Partially edentulous mandible, class I edentulism 03/08/2025 10:00 AM EDT Office Visit [facility] ADULT DENTAL [address] [place] [address] Gay Thompson, DDS Edentulism (Primary Dx); Partially edentulous mandible, class I edentulism 03/06/2025 Refill [facility] [address] [place] [address] Zeinab Sykes MD Neuropathy 02/27/2025 Refill [facility] [address] [place] [address] Zeinab Sykes MD Other intervertebral disc displacement, lumbar region 02/26/2025 11:00 AM EDT Office Visit [facility] [address] [place] [address] Alma Jha, C 40A CREW CHIEF Lumbar back pain with radiculopathy affecting left lower extremity (Primary Dx); Long-term current use of opiate analgesic 02/26/2025 Travel 02/21/2025 Telephone [facility] [address] [place] [address] Zeinab Sykes MD Prior Authorization ([facility] PA: Lidocaine 5% Patch) 02/20/2025 Refill [facility] [address] [place] [address] Zeinab Sykes MD Other intervertebral disc displacement, [...] today? I have tessasergio de la rosa 01/02/2025 Think about the [...] Mass Index 35.43 05/23/2025 2:29 PM EST Plan of Treatment Upcoming Encounters Date Type Department Care Team (Late st Contact Info) Description 05/28/2025 11:00 AM EST Office Visit [facility] [address] [place] [address] 06/05/2025 11:30 AM EST Office Visit [facility] [address] [place] [address] Zeinab Sykes MD [address] [place] [address] 06/12/2025 3:30 PM EST Office Visit [facility] ADULT DENTAL [address] [place] [address] Watkins-MaynardOtoniel jaffemia, DDS [address] [place] [address] 08/13/2025 9:00 AM EST Nutrition [facility] DIABETES/NUTRITION [address] [place] [address] Juana Gusman, RD [address] [place] [address] 10/03/2025 12:45 PM EDT Office Visit [facility] ADULT DENTAL [address] [place] [address] Mykel, Fabi [address] [place] [address] Health Maintenance Due Date Last Done Comments [...] 12/17, 06/14/2022, Additional history exists Tobacco Screening 05/23/2026 05/23/2025 Mammogram 04/12/2027 04/12/2025, 02/16, 02/13/2021, Additional history [...] 11/19/22. Patient graduated from [facility]. Procedures Procedure Name Priority Date/Time Associated Diagnosis Comments XR KUB AND UPRIGHT 2 VIEWS Urgent 05/23/2025 3:30 PM EST Bilateral flank pain CULTURE, URINE, ROUTINE Routine 05/14/2025 3:16 PM EDT UTI symptoms POCT URINALYSIS DIPSTICK Routine 05/14/2025 3:11 PM [...] Relevant to Health Maintenance Results * XR KUB and Upright 2 Views (05/23/2025 3:30 PM EST) Anatomical Region Laterality Modality Radiographic Celia ging 05/23/2025 3:30 PM EST Narrative 05/23/2025 3:44 PM EST [address] [address] XRay Report Signed Patient: Rhonda Fernández MR# : [id number] : 1960 Acct:[id number] Age/Sex: 64 / F ADM Date: 05/23/25 Loc: [facility] Attending Dr: Jayne Maurer DO Ordering Physician: Jayne Maurer DO Date of Service: 05/23/25 Procedure(s): XR KUB Accession Number(s): [id number] cc: Jayne Maurer DO Reason for Exam: [...] 05/23/25 1541 DD/ 1530 TD/TT: 05/23/25 1533 Supervisor Paint Department: Procedure Note Donotuseinterpreter, Image - 05/23/[address] [address] XRay Report Signed Patient: Karla Fernández# : [id number] : 1960Acct:[id number] Age/Sex: 64 / FADM Date: 05/23/25 Loc: [facility] Attending Dr: Jayne Maurer DO Ordering Physician: Jayne Maurer DO Date of Service: 05/23/25 Procedure(s): XR KUB Accession Number(s): [id number] cc: Jayne Maurer DO Reason for Exam: [...] 05/23/25 1541 DD/ 1530 TD/TT: 05/23/25 1533 Supervisor Paint Department: Jayne Maurer DO IMG XR PROCEDURES Final Resu lt * Culture, Urine, Routine (05/14/2025 3:16 PM EDT) Urine Urine specimen obtained by clean catch procedure / Unknown 05/14/2025 3:16 PM EDT 05/15/2025 11:41 AM EDT Comment:[facility] Narrative [facility] - 05/16/2025 11:00 AM EDT Urine Culture Report Result Urine Culture 10,000 to 50,000 cfu/ml Urine Culture Mixed bacterial tamara characteristic of Urine Culture urogenital contamination. Specimen Source: Urine clean catch [facility] LAB MICROBIOLOGY - GENERA L ORDERABLES Final Result [facility] [address] [place] [address] [phone] * POCT urinalysis dipstick manually resulted (CPT 33724) (05/14/2025 3:11 PM EDT) Only the most recent of2 resultswithin the time period is included. Color, UA Yellow Clarity, UA Clear Glucose, UA Negative Bilirubin, UA Few 15 Ketones, UA Positive Comment:tRACE Spec Grav, UA 1.020 Blood, UA Negative Negative, None Detected pH, UA 6.0 Protein, UA 1+ 70+ Urine (Urine, Random) 05/14/2025 3:11 PM EDT Result [facility] POINT OF CARE TEST ENTER/ EDIT ORDERABLES Final Result * Hematoxylin and Eosin Stain (04/24/2025 10:05 AM EDT) 04/24/2025 10:0 5 AM EDT 04/24/2025 11:26 AM EDT Narrative [facility] - 04/25/2025 2:36 PM EDT ----- ------- Name: Rhonda Fernández Age/Sex: 64/F : 1960 Unit#: [id number] Attend Dr: Patircio Osorio MD Re04/24/25 Status: [facility] Location: [facility] Disch: ----- ------- SPEC : [id number] RECD: 04/24/25 STATUS: HODA GARRETT NUM: [id number] DARWIN: 04/24/[address] [facility] [address]: Patricio Osorio MD ENTERED: 04/24/25 [...] microscopic examination, 6 pieces in cassette A. ([facility]) IHC S/NG Disclaimer NOTE: Unless otherwise stated, all tissue is formalin-fixed and paraffin-embedded. Some or all of the immunohistochemical tests reported herein may have been developed and their performance characteristics determined by [facility]. They have not been cleared or approved by the U.S. Food and Drug Administration (FDA). However, the FDA has determined that such clearance or approval is not necessary. This laboratory is certified under the Clinical Laboratory Improvement Amendments of 1988 (CLIA) as qualified to perform high complexity clinical laboratory testing. Copies To: Zeinab Sykes MD [address] [address] CONTINUED ON NEXT PAGE ----- ------- Name: Rhonda Fernández Age/Sex: 64/F : 1960 Unit#: [id number] Attend Dr: Patricio Osorio MD Re04/24/25 Status: [facility] Location: [facility] Disch: ----- ------- SPEC : [id number] RECD: 04/24/25 STATUS: HODA GARRETT NUM: [id number] DARWIN: 04/24/[address]: Patricio Osorio MD ENTERED: 04/24/25 SP TYPE: Surgical OTHR DR: Zeinab Sykes MD ORDERED: HE Stain/3, Gross Micro L4 Copies To: (Continued) Patricio Osorio MD [facility] Gastroenterology Services [address] [place] [phone] ----- ------- Signed (signature on file) Jimmy Trejo MD 04/25/251435 ----- ------- END OF REPORT us Generic External Data Provider LAB BLOOD ORDERAB LES Final Result [facility] [address] [place] [phone] * BI Mammogram Screening Tomosynthesis Bilateral (04/12/2025 10:58 AM EDT) Anatomical Region Laterality Modality Breast Bilateral Mammography 04/12/2025 10:5 8 AM EDT Narrative 04/15/2025 5:36 PM EDT [address] [place] [address] Mammography Report Signed Patient: Rhonda Fernández MR# : [id number] : 1960 Acct:[id number] Age/Sex: 64 / F ADM Date: 04/12/25 Loc: HO.MAMMO Attending Dr: Zeinab Sykes MD Ordering Physician: Zeinab Sykes MD Results: 2Be nign Date of Service: 04/12/25 Follow Up: 1 Year From Orig inal Mammogram Procedure(s): MM tomosynthesis screening BI Accession Number(s): [id number] cc: Zeinab Sykes MD Reason For Exam: [...] 04/15/25 1733 DD/ 1058 TD/TT: 04/12/25 1113 Supervisor Paint Department: Procedure Note Donotuseinterpreter, Image - 04/15/[address] [place] [address] Mammography Report Signed Patient: Spenser FernándezR# : [id number] : 1960Acct:[id number] Age/Sex: 64 / FADM Date: 04/12/25 Loc: HO.MAMMO Attending Dr: Zeinab Sykes MD Ordering Physician: Zeinab Sykes MDResults: 2Be nign Date of Service: 04/12/25Follow Up: 1 Year From Orig ina Mammogram Procedure(s): MM tomosynthesis screening BI Accession Number(s): [id number] cc: Zeinab Sykes MD Reason For Exam: [...] 04/15/25 1733 DD/ 1058 TD/TT: 04/12/25 1113 Supervisor Paint Department: us Zeinab Sykes MD IMG BI PROCEDURES Final Result * Syphilis Screen (04/10/2025 8:29 AM EDT) Syphilis Screen Nonreactive Nonreactive [facility] Blood 04/10/2025 8:29 AM EDT 04/10/2025 11:28 AM EDT us Zeinab Sykes MD LAB BLOOD ORDERABLES Fin al Result Performing Organization Address City/[facility]/ZIP Co de Phone Number [facility] [address] [place] [address] [phone] * Vitamin B12/Folate, Serum Panel (04/10/2025 8:29 AM EDT) Vitamin B12 659 200 - 900 pg/mL [facility] Comment:NORMAL 200-900 PG/ML INDETERMINATE 160-199 PG/ML DEFICIENT < 160 PG/ML Folate 10.7 > or = 4.0 ng/mL [facility] Comment:Reference Values:> o r = 4.0 [...] al Result Performing Organization Address [facility] Co de Phone Number [facility] [address] [place] [phone] * TSH with Reflex to Free T4 (04/10/2025 8:29 AM EDT) TSH reflex Free T4 2.11 0.32 - 4.0 uIU/mL [facility] Blood 04/10/2025 8:2 9 AM EDT 04/10/2025 11:28 AM EDT us Zeinab Sykes MD LAB BLOOD ORDERABLES Fin al Result [facility] [address] [place] [address] [phone] * Lipid Panel with Reflex to Direct LDL (04/10/2025 8:29 AM EDT) Triglycerides 72 <150 mg/dL [facility] Comment:Desirable Triglyceri de: less than 150 mg/dLBorderline High Triglyceride 150-199 mg/dLHigh Triglyceride: 200-499 mg/dLVery High Triglyceride: greater than or equal to 5OO mg/dL Cholesterol 156 <200 mg/dL [facility] Comment:Desirable Cholestero l: less than 200 mg/dLBorderline High Cholesterol: 200-239 mg/dLHigh Cholesterol: greater than 239 mg/dL LDL Cholesterol Calculated 79 <100 mg/dL [facility] Comment:Desirable LDL: less than 100 mg/dLNear Optimal/Above Optimal LDL: 110- 129 mg/dLBorderline High LDL: 130-159 mg/dLHigh LDL: 160-189 mg/dLVery High LDL: greater than or equal to 190 mg/dL HDL Cholesterol 63 >40 mg/dL [facility] Comment:Desirable HDL: great er than 40 mg/dL Note: This HDL assay may give artificially low results in patients with liver disease. Blood 04/10/2025 8:29 AM EDT 04/10/2025 11:28 AM EDT us Zeinab Sykes MD LAB BLOOD ORDERABLES Fin al Result [facility] [address] [place] [address] [phone] * Albumin, Random Urine W/Creatinine (04/10/2025 8:29 AM EDT) Creatinine, Urine 171.83 mg/dL [facility] Microalbumin Urine 11.0 mg/L [facility] Microalbum Creatinine Ratio Ur 6.4 <30 ug/mg cr [facility] Comment:Albumin/Creatinine R atio Reference Ranges: Normal: < 30 ug/mg creatinine Microalbuminuria: 30 - 300 ug/mg creatinineClinical Albuminuria: > 300 ug/mg creatinine Urine (Urine, Random) 04/10/2025 8:29 AM EDT 04/10/2025 11:43 AM EDT Zeinab Sykes MD LAB URINE ORDERABLES Fin al Result Performing Organization Address [facility]/ZIP Co de Phone Number [facility] [address] [place] [phone] * HIV-1/2 Antigen and Antibodies, Fourth Generation, with Reflexes (04/10/2025 8:29 AM EDT) HIV AB/AG Nonreactive Nonreactive [facility] Comment:HIV-1 p24 Ag and/or HIV-1/HIV-2 Ab not detected.A test result that is nonreactive does not exclude thepossibility of exposure to or infection with HIV-1 and/orHIV-2. Nonreactive results in this assay for individualswith prior exposure to HIV-1 and/or HIV-2 may be due toantigen and antibody levels that are below the limit ofdetection of this assay.The [employer] HIV Ag/Ab Combo assay result andsupplemental assay [...] al Result Performing Organization Address [facility]/ZIP Co de Phone Number [facility] [address] [place] [phone] [phone] * (ABNORMAL) Basic Metabolic Panel (04/10/2025 8:29 AM EDT) Sodium 145 135 - 145 mmol/L [facility] Potassium 3.7 3.3 - 5.1 mmol/L [facility] Chloride 108 96 - 108 mmol/L [facility] Carbon Dioxide 28 22 - 29 mmol/L [facility] Anion Gap 13 12 - 20 [facility] Urea Nitrogen (BUN) 16 9 - 16 mg/dL [facility] Creatinine, Serum 0.93 0.5 - 1.4 mg/dL [facility] Estimated Glomerular Filt Rate >60 [facility] Comment:Chronic Kidney Disea se: Estimated GFR < 60 mL/min/[id number] Kidney Disease: Estimated GFR < 15 mL/min/1.73m2 Glucose 123(H) 60 - 115 mg/dL [facility] Calcium 9.6 8.4 - 10.2 mg/dL [facility] Blood Venous blood specimen / Unknown 04/10/2025 8:29 AM EDT 04/10/2025 11:28 AM EDT us Zeinab Sykes MD LAB BLOOD ORDERABLES Fin al Result [facility] [address] [place] [address] [phone] * (ABNORMAL) POCT Hgb A1c (04/02/2025 11:59 AM EDT) Hemoglobin A1C 6.8(A) 4.0 - 5.7 % QC Media Lot # [id number] Lot# Expiration Date Blood 04/02/2025 11:5 9 AM EDT Zeinab Sykes MD POINT OF CARE TE ST ENTER/EDIT ORDERABLES Edited Result - Final * POCT Glucose (04/02/2025 11:57 AM EDT) Glucose Blood, POC 139 60 - 200 mg/dL Comment:random QC Media Lot # [id number] Lot# Expiration Date , Blood Capillary blood specimen / Unknown 04/02/2025 [...] - 02/26/2025 11:46 AM EDT .UTOX cup Lot#[id number] Exp. 04/23/26 Internal Pass Control [place] EDWARDS POINT OF CARE TEST ENTER/EDIT ORDERABLES Final Result * Pap Smear (06/01/2024 2:43 PM EST) 06/01/2024 2:43 PM EST 06/04/2024 9:25 AM EST Narrative [facility] - 06/20/2024 7:51 AM EST ----- ------- Name: Rhonda Fernández Age/Sex: 63/F : 1960 Unit#: [id number] Attend Dr: Aisha Mcclain CNM Re06/01/24 Status: DEP [facility] Disch: ----- ------- SPEC : [id number] RECD: 06/04/24 STATUS: HODA GARRETT NUM: [id number] DARWIN: 06/01/24-[address] [facility] [address]: Aisha Mcclain CNM ENTERED: 06/04/24-1001 [...] Received ThinPrep-Cervical Copies To: Zeinab Sykes MD [address] [id number] Aisha Mcclain CNM [facility] [address] [place] [address] Drive [address] [place] [address] ----- ------- Signed (signature on file) INDERJIT Bloom (ASCP) 06/20/24 0751 ----- ------- END OF REPORT Generic External Data Provider LAB CYTOLOGY JERED STAFFORD Final Result Performing Organization Address [facility] Co de Phone Number [facility] [address] [place] [address] [phone] * Hepatitis Panel, General (01/06/2024 12:38 PM EDT) Hepatitis A IgM Nonreactive Nonreactive [facility] Comment:IgM antibodies to GUERIN V not detected; does not exclude earlyacute or recovered HAV infection. ~Hepatitis B Surface Antibody REACTIVE Nonreactive [facility] Comment:REACTIVE: > 11.99 mI U/mL Hepatitis B Core Antibody Nonreactive Nonreactive [facility] Hepatitis C Antibody Nonreactive Nonreactive [facility] Comment:Antibodies to HCV no t detected; does not exclude early acuteHCV infection. Hepatitis B Surface Ag Negative Negative [facility] Blood 01/06/2024 12:3 8 PM EDT 01/06/2024 4:21 PM EDT Zeinab Sykes MD LAB BLOOD ORDERABLES Fin al Result Performing Organization Address [facility] Co de Phone Number [facility] [address] [place] [phone] * Hm Colonoscopy (11/05/2020 11:36 AM EDT) Historical Provider HEALTH MAINTENANCE Final Result * HPV mRNA E6/E7 (07/07/2020 12:00 AM EST) HPV nRNA E6/E7 Not Detected Not Detected [facility] Comment: This test was performed using the APTIMA HPV Assay ([employer] This assay detects E6/E7 viral messenger RNA (mRNA) from 14 high-risk HPV types (16,18,31,33,35,39,45,51,52,56,58,59,66,68). The analytical performance characteristics of this assay have been determined by [employer]. The modifications have not been cleared or approved by the FDA. This assay has been validated pursuant to the CLIA regulations and is used for clinical purposes. 07/07/2020 us Historical Provider LAB BLOOD ORDERABLES Sera hayes Result [facility] [address] from Last 3 Months or Most Recently Relevant to Health Maintenance Insurance [facility] [employer] [employer] CUSTODIAL OPTIONS (HMO D-SNP) DENTAL [facility] [place] Care Teams Turret Lathe Machinist Relationship Specialty Start Date End Date Zeinab Sykes MD [address] [place] [phone] PCP - General Internal Medicine 01/02/24 Tomeka Martins Investigation LieutenantRoof Bolter 10/27/23 [employer] Caring 11/06/24
--- OUTSIDE RECORDS SUMMARY | 2025-05-23 18:14 | XMS_ITS | Encounter Summary ---
Author Organization [employer] Address [address] [facility] 7t [place] [address] Care Team Providers Care Personal Service Representative Name Role Phone Evelyn LedesmaP Primary Care Provider Oralia Dukes MD Primary Care Provider [phone] Zeinab Sykes MD Primary Care Provider + Reason for Visit * Reason Onset Date Comments medical clearance 02/11/2023 Encounter Details Date Type Department Care Team (Late st Contact Info) Description 02/11/2023 Telephone [facility] ADULT DENTAL [address] [place] [address] Asad Shore, DDS [address] [place] [address] medical clearance Social History Tobacco Use Types [...] Description 05/28/2025 11:00 AM EST Office Visit [facility] MEDICINE [address] [place] [address] 06/05/2025 11:30 AM EST Office Visit [facility] MEDICINE [address] [place] [address] Zeinab Sykes MD [address] [place] [address] 06/12/2025 3:30 PM EST Office Visit [facility] ADULT DENTAL [address] [place] [address] Watkins-Maynard, Gay, DDS [address] [place] [address] 08/13/2025 9:00 AM EST Nutrition [facility] DIABETES/NUTRITION [address] [place] [address] Juana Gusman, RD [address] [place] [address] 10/03/2025 12:45 PM EDT Office Visit [facility] ADULT DENTAL [address] [place] [address] Mykel Fabi [address] [place] [address] documented as of this encounter Goals Goal Patient Goal Type Associated Problems Recent Progress Patient-Stated? Author Patient will manage their medication General On track( 023 11:18 AM EDT) No Citlali Armando, Anoop Note: Began medboxes. Goal achieved 11/19/22. Patient graduated from [facility]. documented as of this encounter Visit Diagnoses Not on filedocumented in this encounter Care Teams Personal Service Representative Relationship Specialty Start Date End Date Evelyn Ledesma FNP PCP - General Family Medicine 03/15/22 04/25/23 Oralia Aguila MD [address] [place] [address] PCP - General Family Medicine 04/26/23 01/01/24 Zeinab Sykes MD [address] [place] [address] PCP - General Internal Medicine 01/02/24 Tomeka Martins X Ray DeveloperGame Producer 10/27/23 [employer] Caring 11/06/24 documented as of this encounter
--- OUTSIDE RECORDS SUMMARY | 2025-05-23 18:14 | XMS_ITS | Encounter Summary ---
Author Organization [employer] Address [address] [place] [address] 7 [place] [address] Care Team Providers Care Mine Equipment Design Engineer Name Role Phone Evelyn Ledesma TRIMMER SAWYER Primary Care Provider Oralia Dukes MD Primary Care Provider [phone] Zeinab Sykes MD Primary Care Provider + Encounter Details Date Type Department Care Team (Latest Contact Info) Description 12/21/2018 Abstract [facility] CONVERSIONS Dental, Provider, DDS Social History [...] 11:00 AM EST Office Visit [facility] MEDICINE [address] [place] [address] 06/05/2025 11:30 AM EST Office Visit [facility] MEDICINE [address] [place] [address] Zeinab Sykes MD [address] [place] [address] 06/12/2025 3:30 PM EST Office Visit [facility] ADULT DENTAL [address] [place] [address] Gay Thompson DDS [address] [place] [address] 08/13/2025 9:00 AM EST Nutrition [facility] DIABETES/NUTRITION [address] [place] [address] [place] [address] 10/03/2025 12:45 PM EDT Office Visit [facility] ADULT DENTAL [address] [place] [address] Mykel, Fabi [address] [place] [address] documented as of this encounter Visit Diagnoses Not on filedocumented in this encounter Care Teams Mine Equipment Design Engineer Relationship Specialty Start Date End Date Evelyn Ledesma FNP PCP - General Family Medicine 03/15/22 04/25/23 Oralia Aguila MD [address] [place] [address] PCP - General Family Medicine 04/26/23 01/01/24 Zeinab Sykes MD [address] [place] [address] PCP - General Internal Medicine 01/02/24 Tomeka Martins Chief Sustainability OfficerTraveling Nurse 10/27/23 [employer] Caring 11/06/24 documented as of this encounter
--- OUTSIDE RECORDS SUMMARY | 2025-05-23 18:14 | XMS_ITS | Encounter Summary ---
Author Organization [employer] Address [address] [place] [address] 7t [place] [address] Care Team Providers Care Washing Machine Striper Name Role Phone Oralia Aguila MD Primary Care Provider [phone] Zeinab Sykes MD Primary Care Provider + Reason for Visit * Reason Onset Date Comments Med Refill 05/05/2023 Encounter Details Date Type Department Care Team (Late st Contact Info) Description 05/05/2023 Refill [facility] MEDICINE [address] [place] [address] Oralia Aguila MD [address] [place] [address] Other intervertebral disc displacement, lumbar region Social [...] 5- 325 MG tablet to besent to [facility] [place], [place] - [address] [facility] documented in this encounter Plan of Treatment Upcoming Encounters Date Type Department Care Team (Late st Contact Info) Description 05/28/2025 11:00 AM EST Office Visit [facility] MEDICINE [address] [place] [address] 06/05/2025 11:30 AM EST Office Visit [facility] MEDICINE 230 [place] [address] Zeinab Sykes MD [address] [place] [address] 06/12/2025 3:30 PM EST Office Visit [facility] ADULT DENTAL [address] [place] [address] Watkins-Maynard, Gay, DDS [address] [place] [address] 08/13/2025 9:00 AM EST Nutrition [facility] DIABETES/NUTRITION [address] [place] [address] Juana Gusman, RD [address] [place] [address] 10/03/2025 12:45 PM EDT Office Visit [facility] ADULT DENTAL [address] [place] [address] Fabi Hogue [address] [place] [address] documented as of this encounter Goals Goal Patient Goal Type Associated Problems Recent Progress Patient-Stated? Author Patient will manage their medication General On track( 023 11:18 AM EDT) No Citlali Armando, Anoop Note: Began medboxes. Goal achieved 11/19/22. Patient graduated from [facility]. documented as of this encounter Visit Diagnoses Diagnosis Other intervertebral disc displacement, lumbar region documented in this encounter Care Teams Washing Machine Striper Relationship Specialty Start Date End Date Oralia Aguila MD [address] [place] [address] PCP - General Family Medicine 04/26/23 01/01/24 Zeinab Sykes MD [address] [place] [address] PCP - General Internal Medicine 01/02/24 Tomeka Martins Tugboat CaptainSupervisor Dry Cell Assembly 10/27/23 [employer] C[employer] 11/06/24 documented as of this encounter
--- OUTSIDE RECORDS SUMMARY | 2025-05-23 18:14 | XMS_ITS | Encounter Summary ---
Author Organization [employer] Address [address] [place] [address] 7 [place] [address] Care Team Providers Care Ict Systems Test Engineer Name Role Phone Oralia Aguila MD Primary Care Provider [phone] Zeinab Sykes MD Primary Care Provider + Reason for Visit * Reason Comments Med Refill Encounter Details Date Type Department Care Team (Late Contact Info) Description 08/09/2023 Refill [facility] MEDICINE [address] [place] [address] [phone] Oralia Aguila MD [address] [place] [phone] Other intervertebral disc displacement, lumbar region Social [...] 11:00 AM EST Office Visit [facility] MEDICINE [address] [place] [phone] 06/05/2025 11:30 AM EST Office Visit [facility] MEDICINE [address] [place] [address] [phone] Zeinab Sykes MD 230 [place] [address] 06/12/2025 3:30 PM EST Office Visit [facility] ADULT DENTAL 230 [facility] [place] [address] Watkins-Maynard, Gay, DDS 230 [place] [address] 08/13/2025 9:00 AM EST Nutrition [facility] DIABETES/NUTRITION [address] [place] [address] Czepiel, Juana, RD 230 [place] [address] 10/03/2025 12:45 PM EDT Office Visit [facility] ADULT DENTAL [address] [place] [address] Mykel, Fabi [address] [place] [address] documented as of this encounter Goals Goal Patient Goal Type Associated Problems Recent Progress Patient-Stated? Author Patient will manage their medication General On track( 023 11:18 AM EDT) Citlali Ocampo, PharmD Note: Began medboxes. Goal achieved 11/19/22. Patient graduated from [facility]. documented as of this encounter Visit Diagnoses Diagnosis Other intervertebral disc displacement, lumbar region documented in this encounter Care Teams Ict Systems Test Engineer Relationship Specialty Start Date End Date Oralia Aguila MD [address] [place] [address] PCP - General Family Medicine 04/26/23 01/01/24 Zeinab Sykes MD [address] [place] [address] PCP - General Internal Medicine 01/02/24 Tomeka Martins Retort SetterSpecial Collections Librarian 10/27/23 [employer] C[employer] 11/06/24 documented as of this encounter
--- OUTSIDE RECORDS SUMMARY | 2025-05-23 18:14 | XMS_ITS | Encounter Summary ---
Author Organization [employer] Address [address] [facility] 7t [place] [address] Care Team Providers Care Supervisor Firearms Name Role Phone Zeinab Sykes MD Primary Care Provider + Reason for Visit * Reason Onset Date Comments Durable Medical Equipment 04/25/2025 Encounter Details Date Type Department Care Team ([facility] Contact Info) Description 04/25/[address] [facility] MEDICINE [address] [place], [place] [phone] Zeinab Sykes MD [address] [place] [address] Durable Medical Equipment Social History Tobacco Use [...] If any questions please contact pt at [phone]. documented in this encounter Plan of Treatment Upcoming Encounters Date Type Department Care Team (Late st Contact Info) Description 05/28/2025 11:00 AM EST Office Visit [facility] MEDICINE [address] [place] [address] 06/05/2025 11:30 AM EST Office Visit [facility] MEDICINE [address] [place] [address] Zeinab Sykes MD [address] [place] [address] 06/12/2025 3:30 PM EST Office Visit [facility] ADULT DENTAL [address] [place] [address] Gay Thompson DDS [address] [place] [address] 08/13/2025 9:[address] [facility] DIABETES/NUTRITION [address] [place] [address] Juana Gusman, RD [address] [place] [address] 10/03/2025 12:45 PM EDT Office Visit [facility] ADULT DENTAL [address] [place] [address] Mykel, Fabi [address] [place] [address] documented as of this encounter Goals Goal Patient Goal Type Associated Problems Recent Progress Patient-Stated? Author Patient will manage their medication General On track( 023 11:18 AM EDT) Citlali Ocmapo PharmD Note: Began medboxes. Goal achieved 11/19/22. Patient graduated from [facility]. documented as of this encounter Visit Diagnoses Not on filedocumented in this encounter Additional Health Concerns Assessment Noted Time PHQ-9 Depression Total Score: 22 025 10:31 AM EST documented as of this encounter Care Teams Supervisor Firearms Relationship Specialty Start Date End Date Zeinab Sykes MD [address] [place] [address] PCP - General Internal Medicine 01/02/24 Tomeka Martins Take Away WorkerWedding Planner 10/27/23 T[employer] Caring 11/06/24 documented as of this encounter
--- OUTSIDE RECORDS SUMMARY | 2025-05-23 18:14 | XMS_ITS | Encounter Summary ---
Author Organization [employer] Address 75 [facility] 7t [place] [address] Care Team Providers Care Traffic Observer Name Role Phone Zeinab Sykes MD Primary Care Provider + Encounter Details Date Type Department Care Team (Latest Contact Info) Description 05/23/2025 Travel Social History Tobacco Use Types Packs/Day [...] Description 05/28/2025 11:00 AM EST Office Visit [facility] MEDICINE [address] [place] [address] 06/05/2025 11:30 AM EST Office Visit [facility] MEDICINE [address] [place] [address] Zeinab Sykes MD 230 [place] [address] 06/12/2025 3:30 PM EST Office Visit [facility] ADULT DENTAL [address] [place] [address] Gay Thompson, DDS [address] [place] [address] 08/13/2025 9:00 AM EST Nutrition [facility] DIABETES/NUTRITION [address] [place] [address] Juana Gusman, MONICA [address] [place] [address] 10/03/2025 12:45 PM EDT Office Visit [facility] ADULT DENTAL [address] [place] [address] Fabi Hogue [address] [place] [address] documented as of this encounter Goals Goal [...] documented as of this encounter Care Teams Traffic Observer Relationship Specialty Start Date End Date Zeinab Sykes MD [address] [place] [address] PCP - General Internal Medicine 01/02/24 Tomeka Martins Product Marketing ExecutiveWide Area Network Engineer 10/27/23 T[employer] Caring 11/06/24 documented as of this encounter
--- OUTSIDE RECORDS SUMMARY | 2025-05-23 18:14 | XMS_ITS | Encounter Summary ---
Author Organization [employer] Address [address] [place] [address] 7t [place] [address] Care Team Providers Care Insulation Technician Name Role Phone Oralia Aguila MD Primary Care Provider [phone] Zeinab Sykes MD Primary Care Provider + Reason for Visit * Reason Onset Date Comments antibiotics pre med 07/19/2023 Encounter Details Date Type Department Care Team ([facility] st Contact Info) Description 07/19/2023 Telephone [facility] ADULT DENTAL [address] [place] [address] Stefany Anton, DDS [address] [place] [address] antibiotics pre med Social History Tobacco Use [...] Description 05/28/2025 11:00 AM EST Office Visit [facility] MEDICINE [address] [place] [address] 06/05/2025 11:30 AM EST Office Visit [facility] MEDICINE [address] [place] [address] Zeinab Sykes MD [address] [place] [address] 06/12/2025 3:30 PM EST Office Visit [facility] ADULT DENTAL [address] [place] [address] Juan CMaynardGay jaffe, DDS [address] [place] [address] 08/13/2025 9:00 AM EST Nutrition [facility] DIABETES/NUTRITION [address] [place] [address] Juana Gusman, RD [address] [place] [address] 10/03/2025 12:45 PM EDT Office Visit [facility] ADULT DENTAL [address] [place] [address] Mykel Fabi [address] [place] [address] documented as of this encounter Goals Goal Patient Goal Type Associated Problems Recent Progress Patient-Stated? Author Patient will manage their medication General On track( 023 11:18 AM EDT) No Citlali Armando, Anoop Note: Began medboxes. Goal achieved 11/19/22. Patient graduated from [facility]. documented as of this encounter Visit Diagnoses Not on filedocumented in this encounter Care Teams Insulation Technician Relationship Specialty Start Date End Date Oralia Aguila MD [address] [place] [address] PCP - General Family Medicine 04/26/23 01/01/24 Zeinab Sykes MD [address] [place] [address] PCP - General Internal Medicine 01/02/24 Tomeka Martins Coke Crane OperatorVice President Payer 10/27/23 [employer] Caring 11/06/24 documented as of this encounter
--- OUTSIDE RECORDS SUMMARY | 2025-05-23 18:14 | XMS_ITS | Encounter Summary ---
Author Organization [employer] Address 75 [facility] 7t [place] [address] Care Team Providers Care Concrete Float Maker Name Role Phone Evelyn LedesmaP Primary Care Provider Oralia Dukes MD Primary Care Provider [phone] Zeinab Sykes MD Primary Care Provider + Reason for Visit * Reason Onset Date Comments Referral 02/03/2023 Renewal Encounter Details Date Type Department Care Team (Late st Contact Info) Description 02/03/2023 Telephone [facility] MEDICINE [address] [place] [address] Evelyn Ledesma FNP Referral (Renewal ) Social [...] [facility] [address] [place] [address] 06/05/2025 11:30 AM EST Office Visit [facility] MEDICINE 230 [place] [address] Zeinab Sykes MD [address] [place] [address] 06/12/2025 3:30 PM EST Office Visit [facility] ADULT DENTAL [address] [place] [address] Gay Thompson, DDS [address] [place] [address] 08/13/2025 9:00 AM EST Nutrition [facility] DIABETES/NUTRITION [address] [place] [address] Juana Gusman, RD [address] [place] [address] 10/03/2025 12:45 PM EDT Office Visit [facility] ADULT DENTAL [address] [place] [address] Mykel, Fabi [address] [place] [address] documented as of this encounter Goals Goal Patient Goal Type Associated Problems Recent Progress Patient-Stated? Author Patient will manage their medication General On track( 023 11:18 AM EDT) No Citlali Armando PharmD Note: Began medboxes. Goal achieved 11/19/22. Patient graduated from [facility]. documented as of this encounter Visit Diagnoses Not on filedocumented in this encounter Care Teams Concrete Float Maker Relationship Specialty Start Date End Date Evelyn Ledesma FNP PCP - General Family Medicine 03/15/22 04/25/23 Oralia Aguila MD [address] [place] [address] PCP - General Family Medicine 04/26/23 01/01/24 Zeinab Sykes MD [address] [place] [address] PCP - General Internal Medicine 01/02/24 Tomeka Martins Strategic Sourcing ConsultantSupervisor Photoengraving 10/27/23 [employer] Caring 11/06/24 documented as of this encounter
--- OUTSIDE RECORDS SUMMARY | 2025-05-23 18:14 | XMS_ITS | Encounter Summary ---
Author Organization [employer] Address [address] [place] [address] 7 [place] [address] Care Team Providers Care Glove Turner And Former Name Role Phone Oralia Aguila MD Primary Care Provider [phone] Zeinab Sykes MD Primary Care Provider + Reason for Visit * Reason Comments Med Refill Encounter Details Date Type Department Care Team (Late Contact Info) Description 09/21/2023 Refill [facility] MEDICINE [address] [place] [address] [phone] Oralia Aguila MD [address] [place] [address] [phone] Neuropathy Social History Tobacco Use Types Packs/Day [...] Description 05/28/2025 11:00 AM EST Office Visit [facility] MEDICINE [address] [place] [address] [phone] 06/05/2025 11:30 AM EST Office Visit [facility] MEDICINE [address] [place] [address] [phone] Zeinab Sykes MD [address] [place] [address] 06/12/2025 3:30 PM EST Office Visit [facility] ADULT DENTAL 230 [place] [address] Watkins-Maynard, Gay, DDS [address] [place] [address] 08/13/2025 9:00 AM EST Nutrition [facility] DIABETES/NUTRITION [address] [place] [address] Czepiel, Juana, RD [address] [place] [address] 10/03/2025 12:45 PM EDT Office Visit [facility] ADULT DENTAL [address] [place], [place] [phone] Mykel, Fabi [address] [place] [address] documented as of this encounter Goals Goal Patient Goal Type Associated Problems Recent Progress Patient-Stated? Author Patient will manage their medication General On track( 023 11:18 AM EDT) No Citlali Armando, PharmD Note: Began medboxes. Goal achieved 11/19/22. Patient graduated from [facility]. documented as of this encounter Visit Diagnoses Diagnosis Neuropathy Mononeuritis of unspecified site documented in this encounter Care Teams Glove Turner And Former Relationship Specialty Start Date End Date Oralia Aguila MD [address] [place] [address] [phone] PCP - General Family Medicine 04/26/23 01/01/24 Zeinab Sykes MD [address] [place] [address] [phone] PCP - General Internal Medicine 01/02/24 Tomeka Martins FloormanSausage Maker 10/27/23 [employer] 11/06/24 documented as of this encounter
--- OUTSIDE RECORDS SUMMARY | 2025-05-23 18:14 | XMS_ITS | Encounter Summary ---
Author Organization [employer] Address [address] 7t [place] [address] Care Team Providers Care Hand Rigger Name Role Phone Zeinab Sykes MD Primary Care Provider + Encounter Details Date Type Department Care Team ([facility] st Contact Info) Description 09/20/2024 Orders Only [facility] CHC MED & PEDS [address] [place] [address] Provider, MD Parag Social History Tobacco Use [...] 11:00 AM EST Office Visit [facility] MEDICINE [address] [place] [phone] 06/05/2025 11:30 AM EST Office Visit [facility] MEDICINE [address] [place] [address] Zeinab Sykes MD [address] [place] [address] 06/12/2025 3:30 PM EST Office Visit [facility] ADULT DENTAL [address] [place] [address] Gay Thompson, DDS [address] [place] [address] 08/13/2025 9:00 AM EST Nutrition [facility] DIABETES/NUTRITION [address] [place] [address] Juana Gusman, MONICA [address] [place] [address] 10/03/2025 12:45 PM EDT Office Visit [facility] ADULT DENTAL [address] [place] [address] Fabi Hogue [address] [place] [address] documented as of this encounter Goals Goal Patient Goal Type Associated Problems Recent Progress Patient-Stated? Author Patient will manage their medication General On track( 023 11:18 AM EDT) Citlali Ocampo, PharmD Note: Began medboxes. Goal achieved 11/19/22. Patient graduated from [facility]. documented as of this [...] PM EDT Narrative 10/19/2024 4:14 PM EDT [place] [address] CT Scan Report Signed Patient: Rhonda Fernández MR# : [id number] : 1960 Acct:[id number] Age/Sex: 63 / F ADM Date: 10/18/24 Loc: HO.CT Attending Dr: Nolberto Quigley MD Ordering Physician: Nolberto Quigley MD Date of Service: 10/18/24 Procedure(s): CT abdomen pelvis w IV con Accession Number(s): [id number] cc: Zeinab Sykes MD; Nolberto Quigley MD Report Number: [id number]: Total DLP = 538.00 mGy-cm CLINICAL HISTORY: [...] in OV> 10/19/24 1614 DD/ 1613 TD/TT: 10/19/241612 Cloud Services Architect: Procedure Note Donotuseinterpreter, Image - 10/19/[address] [place] [address] [address] Scan Report Signed Patient: Karla Fernández# : [id number] : 1960Acct:[id number] Age/Sex: 63 / FADM Date: 10/18/24 Loc: HO.CT Attending Dr: Nolberto Quigley MD Ordering Physician: Nolberto Quigley MD Date of Service: 10/18/24 Procedure(s): CT abdomen pelvis w IV con Accession Number(s): [id number] cc: Zeinab Sykes MD; Nolberto Quigley MD Report Number: [id number]: Total DLP = 538.00 mGy-cm CLINICAL HISTORY: [...] in OV> 10/19/24 1614 DD/ 1613 TD/TT: 10/19/241612 Cloud Services Architect: [facility] External Provider IMG CT PROCEDURES Final Result * XR Wrist 3+ Views Left (10/16/2024 5:26 PM EDT) Anatomical Region Laterality Modality Upper Extremities, Wrist Left Radiogr aphic Imaging 10/16/2024 5:26 PM EDT Narrative 10/16/2024 5:28 PM EDT [address] [address] XRay Report Signed Patient: Rhonda Fernández MR# : [id number] : 1960 Acct:[id number] Age/Sex: 63 / F ADM Date: 10/16/24 Loc: HO.ED Attending Dr: Ordering Physician: Lanette Laura PA-C Date of Service: 10/16/24 Procedure(s): XR wrist LT min 3V Accession Number(s): [id number] cc: Zeinab Sykes MD; Lanette Laura PA-C [...] OV> 10/16/241726 DD/ 172 TD/TT: 10/16/24 172 Cloud Services Architect: Procedure Note Donotuseinterpreter, Image - 10/16/[address] [address] XRay Report Signed Patient: Spenser FernándezR# : [id number] : 1960Acct:[id number] Age/Sex: 63 / FADM Date: 10/16/24 Loc: HO.ED Attending Dr: Ordering Physician: Lanette Laura PA-C Date of Service: 10/16/24 Procedure(s): XR wrist LT min 3V Accession Number(s): [id number] cc: Zeinab Sykes MD; Lanette Laura PA-C [...] in OV> 10/16/241726 DD/ 25 TD/TT: 10/16/241725 Cloud Services Architect: [facility] External Provider IMG XR PROCEDURES Final Result * XR Hip left with Pelvis 1 view (10/16/2024 5:24 PM EDT) Anatomical Region Laterality Modality Lower Extremities, Hip Bilateral Radiograp hic Imaging 10/16/2024 5:24 PM EDT Narrative 10/16/2024 5:26 PM EDT [address] [address] XRay Report Signed Patient: Rhonda Fernández MR# : [id number] : 1960 Acct:[id number] Age/Sex: 63 / F ADM Date: 10/16/24 Loc: .ED Attending Dr: Ordering Physician: Lanette Laura PA-C Date of Service: 10/16/24 Procedure(s): XR hip LT w PEL1V Accession Number(s): [id number] cc: Zeinab Sykes MD; Lanette Laura PA-C [...] in OV> 10/16/241724 DD/ 23 TD/TT: 10/16/241723 Cloud Services Architect: Procedure Note Donotuseinterpreter, Image - 10/16/[address] [address] XRay Report Signed Patient: Spenser FernándezR# : [id number] : 1960Acct:[id number] Age/Sex: 63 / FADM Date: 10/16/24 Loc: HO.ED Attending Dr: Ordering Physician: Lanette Laura PA-C Date of Service: 10/16/24 Procedure(s): XR hip LT w PEL1V Accession Number(s): [id number] cc: Zeinab Sykes MD; Lanette Laura PA-C [...] in OV> 10/16/241724 DD/ 23 TD/TT: 10/16/241723 Cloud Services Architect: [facility] External Provider IMG XR PROCEDURES Final Result * XR Elbow 3+ Views Left (10/16/2024 5:23 PM EDT) Anatomical Region Laterality Modality Upper Extremities, Elbow Left Radiogr aphic Imaging 10/16/2024 5:23 PM EDT Narrative 10/16/2024 5:25 PM EDT [address] [address] XRay Report Signed Patient: Rhonda Fernández MR# : [id number] : 1960 Acct:[id number] Age/Sex: 63 / F ADM Date: 10/16/24 Loc: HO.ED Attending Dr: Ordering Physician: Lanette Laura PA-C Date of Service: 10/16/24 Procedure(s): XR elbow LT min 3V Accession Number(s): [id number] cc: Zeinab Sykes MD; Lanette Laura PA-C [...] in OV> 10/16/241723 DD/ 22 TD/TT: 10/16/241722 Cloud Services Architect: Procedure Note Donotuseinterpreter, Image - 10/16/2024 [place] [address] XRay Report Signed Patient: Karla Fernández# : [id number] : 1960Acct:[id number] Age/Sex: 63 / FADM Date: 10/16/24 Loc: .ED Attending Dr: Ordering Physician: Lanette Laura PA-C Date of Service: 10/16/24 Procedure(s): XR elbow LT min 3V Accession Number(s): [id number] cc: Zeinab Sykes MD; Lanette Laura PA-C [...] MD in OV> 10/16/241723 DD/ 22 TD/TT: 10/16/24 172 Cloud Services Architect: [facility] External Provider IMG XR PROCEDURES Final Result * CT Cervical Spine w/o Contrast (10/16/2024 5:18 PM EDT) Anatomical Region Laterality Modality Spine, C-spine Computed Tomogra phy 10/16/2024 5:18 PM EDT Narrative 10/16/2024 5:19 PM EDT [address] [address] [address] Scan Report Signed Patient: Rhonda Fernández MR# : [id number] : 1960 Acct:[id number] Age/Sex: 63 / F ADM Date: 10/16/24 Loc: HO.ED Attending Dr: Ordering Physician: Lanette Laura PA-C Date of Service: 10/16/24 Procedure(s): CT cervical spine wo IV con Accession Number(s): [id number] cc: Zeinab Sykes MD; Lanette Laura PA-C Report Number: [id number]: Total DLP = 605.00 mGy-cm CLINICAL HISTORY: [...] in OV> 10/16/241718 DD/ 17 TD/TT: 10/16/241717 Cloud Services Architect: Procedure Note Donotuseinterpreter, Image - 10/16/[address] [address] [address] Scan Report Signed Patient: Karla Fernández# : [id number] : 1960Acct:[id number] Age/Sex: 63 / FADM Date: 10/16/24 Loc: HO.ED Attending Dr: Ordering Physician: Lanette Laura PA-C Date of Service: 10/16/24 Procedure(s): CT cervical spine wo IV con Accession Number(s): [id number] cc: Zeinab Sykes MD; Lanette Laura PA-C Report Number: [id number]: Total DLP = 605.00 mGy-cm CLINICAL HISTORY: [...] in OV> 10/16/241718 DD/ 17 TD/TT: 10/16/241717 Cloud Services Architect: [facility] External Provider IMG CT PROCEDURES Final Result * Hm Colonoscopy (11/05/2020 11:36 AM EDT) Historical Provider HEALTH MAINTENANCE Final Result documented in this encounter Visit Diagnoses Not on filedocumented in this encounter Additional Health Concerns Assessment Noted Time PHQ-9 Depression Total Score: 22 025 10:31 AM EST documented as of this encounter Care Teams Hand Rigger Relationship Specialty Start Date End Date Zeinab Sykes MD [address] [place] [address] PCP - General Internal Medicine 01/02/24 Tomeka Martins Multimedia Production AssistantCustomer Expert 10/27/23 [employer] 11/06/24 documented as of this encounter
--- OUTSIDE RECORDS SUMMARY | 2025-05-23 18:14 | XMS_ITS | Encounter Summary ---
Author Organization [employer] Address [address] [place] [address] 7t [place] [address] Care Team Providers Care Wind Energy Systems Installer Name Role Phone Oralia Aguila MD Primary Care Provider [phone] Zeinab Sykes MD Primary Care Provider + Reason for Visit * Reason Comments Med Refill Encounter Details Date Type Department Care Team (Late Contact Info) Description 07/06/2023 Refill [facility] WALK-IN CENTER [address] [place] [address] [phone] Bryn Franklin MD [address] [place] [address] Social History Tobacco Use Types Packs/Day Years [...] Description 05/28/2025 11:00 AM EST Office Visit [facility] MEDICINE [address] [place] [address] [phone] 06/05/2025 11:30 AM EST Office Visit [facility] MEDICINE [address] [place] [address] [phone] Zeinab Sykes MD [address] [place] [address] 06/12/2025 3:30 PM EST Office Visit [facility] ADULT DENTAL 230 [place] [address] Watkins-Myanard, Gay, DDS 230 [place] [address] 08/13/2025 9:00 AM EST Nutrition [facility] DIABETES/NUTRITION 230 [place] [address] Czepiel, Juana, RD 230 [place] [address] 10/03/2025 12:45 PM EDT Office Visit [facility] ADULT DENTAL 230 [facility], [place] [phone] Mykel, Fabi 230 [place] [address] documented as of this encounter Goals Goal Patient Goal Type Associated Problems Recent Progress Patient-Stated? Author Patient will manage their medication General On track( 023 11:18 AM EDT) No Citlali Armando, PharmD Note: Began medboxes. Goal achieved 11/19/22. Patient graduated from [facility]. documented as of this encounter Visit Diagnoses Not on filedocumented in this encounter Care Teams Wind Energy Systems Installer Relationship Specialty Start Date End Date Oralia Aguila MD [address] [place] [address] PCP - General Family Medicine 04/26/23 01/01/24 Zeinab Sykes MD [address] [place] [address] PCP - General Internal Medicine 01/02/24 Tomeka Martins Enterprise Mobility ArchitectFrame Maker 10/27/23 [employer] 11/06/24 documented as of this encounter
--- OUTSIDE RECORDS SUMMARY | 2025-05-23 18:14 | XMS_ITS | Encounter Summary ---
Author Organization [employer] Address [address]t [place] [address] Care Team Providers Care Brand Marketing Coordinator Name Role Phone Zeinab Sykes MD Primary Care Provider + Reason for Visit * Reason Comments Med Refill Encounter Details Date Type Department Care Team ([facility] st Contact Info) Description 05/04/2024 Refill [facility] MEDICINE [address] [place], [place] [phone] Zeinab Sykes MD [address] [place] [address] Other intervertebral disc displacement, lumbar region Social [...] Description 05/28/2025 11:00 AM EST Office Visit [facility] MEDICINE [address] [place] [phone] 06/05/2025 11:30 AM EST Office Visit [facility] MEDICINE [address] [place] [address] Zeinab Sykes MD [address] [place] [address] 06/12/2025 3:30 PM EST Office Visit [facility] ADULT DENTAL [address] [place] [address] Watkins-Maynard, Gay, DDS [address] [place] [address] 08/13/2025 9:00 AM EST Nutrition [facility] DIABETES/NUTRITION [address] [place] [address] Juana Gusman, MONICA [address] [place] [address] 10/03/2025 12:45 PM EDT Office Visit [facility] ADULT DENTAL [address] [place] [address] Fabi Hogue [address] [place] [address] documented as of this encounter Goals Goal Patient Goal Type Associated Problems Recent Progress Patient-Stated? Author Patient will manage their medication General On track( 023 11:18 AM EDT) Citlali Ocampo, Anoop Note: Began medboxes. Goal achieved 11/19/22. Patient graduated from [facility]. documented as of this encounter Visit Diagnoses Diagnosis Other intervertebral disc displacement, lumbar region documented in this encounter Additional Health Concerns Assessment Noted Time PHQ-9 Depression Total Score: 18 024 1:46 PM EDT documented as of this encounter Care Teams Brand Marketing Coordinator Relationship Specialty Start Date End Date Zeinab Sykes MD [address] [place] [address] PCP - General Internal Medicine 01/02/24 Tomeka Martins Print WasherFloorwalker 10/27/23 [employer] 11/06/24 documented as of this encounter
--- OUTSIDE RECORDS SUMMARY | 2025-05-23 18:14 | XMS_ITS | Encounter Summary ---
Author Organization [employer] Address [address] [place] [address] 7 [place] [address] Care Team Providers Care Microfabrication Engineer Manager Name Role Phone Evelyn Ledesma Primary Care Provider Oralia Dukes MD Primary Care Provider [phone] Zeinab Sykes MD Primary Care Provider + Reason for Visit * Reason Comments Med Refill Encounter Details Date Type Department Care Team (Late st Contact Info) Description 02/05/2023 Refill [facility] MEDICINE [address] [place] [address] Evelyn Ledesma FNP Neuropathy Social History Tobacco [...] Visit [facility] MEDICINE [address] [place] [address] [phone] 06/05/2025 11:30 AM EST Office Visit [facility] MEDICINE [address] [place] [address] [phone] Zeinab Sykes MD [address] [place] [address] [phone] 06/12/2025 3:30 PM EST Office Visit [facility] ADULT DENTAL 230 [place] [address] Watkins-Gay Maynard, DDS [address] [place] [address] 08/13/2025 9:00 AM EST Nutrition [facility] DIABETES/NUTRITION [address] [place] [address] CzepMal beckwithlie, RD 230 [place] [address] 10/03/2025 12:45 PM EDT Office Visit [facility] ADULT DENTAL 230 [place] [address] Mykel, Fabi [address] [place] [address] documented as of this encounter Goals Goal Patient Goal Type Associated Problems Recent Progress Patient-Stated? Author Patient will manage their medication General On track( 023 11:18 AM EDT) Citlali Ocampo, PharmD Note: Began medboxes. Goal achieved 11/19/22. Patient graduated from [facility]. documented as of this encounter Visit Diagnoses Diagnosis Neuropathy Mononeuritis of unspecified site documented in this encounter Care Teams Microfabrication Engineer Manager Relationship Specialty Start Date End Date Evelyn Ledesma FNP PCP - General Family Medicine 03/15/22 04/25/23 Oralia Aguila MD [address] [place] [address] [phone] PCP - General Family Medicine 04/26/23 01/01/24 Zeinab Sykes MD [address] [place] [address] [phone] PCP - General Internal Medicine 01/02/24 Tomeka Martins Telephone RepairerAnimal Science Professor 10/27/23 [employer] 11/06/24 documented as of this encounter
--- OUTSIDE RECORDS SUMMARY | 2025-05-23 18:14 | XMS_ITS | Encounter Summary ---
Author Organization [employer] Address [address] [facility] [address] 7t [place] [address] Care Team Providers Care Contract Implementation Analyst Name Role Phone Zeinab Sykes MD Primary Care Provider + Reason for Visit * Reason Onset Date Comments Med Refill 07/16/2024 Encounter Details Date Type Department Care Team ([facility] Contact Info) Description 07/16/2024 Telephone [facility] MEDICINE [address] [place], [place] [phone] Zeinab Sykes MD [address] [place] [address] Med Refill Social History Tobacco Use Types [...] 10 MG capsule To be sent to: [facility] pharmacy documented in this encounter Plan of Treatment Upcoming Encounters Date Type Department Care Team (Late st Contact Info) Description 05/28/2025 11:00 AM EST Office Visit [facility] MEDICINE [address] [place] [address] 06/05/2025 11:30 AM EST Office Visit [facility] MEDICINE [address] [place] [address] Zeinab Sykes MD [address] [place] [address] 06/12/2025 3:30 PM EST Office Visit [facility] ADULT DENTAL [address] [place] [address] Gay Thompson DDS [address] [place] [address] 08/13/2025 9:00 AM EST Nutrition [facility] DIABETES/NUTRITION [address] [place] [address] RangelMal beckwithlie, RD [address] [place] [address] 10/03/2025 12:45 PM EDT Office Visit [facility] ADULT DENTAL [address] [place] [address] Mykel, Fabi [address] [place] [address] documented as of this encounter Goals Goal Patient Goal Type Associated Problems Recent Progress Patient-Stated? Author Patient will manage their medication General On track( 023 11:18 AM EDT) Citlali Ocampo PharmD Note: Began medboxes. Goal achieved 11/19/22. Patient graduated from [facility]. documented as of this encounter Visit Diagnoses Not on filedocumented in this encounter Additional Health Concerns Assessment Noted Time PHQ-9 Depression Total Score: 18 024 1:46 PM EDT documented as of this encounter Care Teams Contract Implementation Analyst Relationship Specialty Start Date End Date Zeinab Sykes MD [address] [place] [address] PCP - General Internal Medicine 01/02/24 Tomeka Martins Director Of HousingSupervisor Costuming 10/27/23 [employer] 11/06/24 documented as of this encounter
[2025-05-24 04:21] LABS: Bacterial Vaginosis PCR NEGATIVE (Negative); Candida Group PCR DETECTED (Not Detect); Candida glab krusei PCR NOT DETECTED (Not Detect); Trichomonas vaginalis PCR NOT DETECTED (Not Detect)
[2025-05-24 04:52] LABS: CT PCR NOT DETECTED (Not Detect.); NG PCR NOT DETECTED (Not Detect.)
== END 2025-05-23 15:14 | disposition home or self-care (01) ==
LOC: HO.HHCX 15:13
PROVIDERS: Visit Provider Family Medicine
DX: R10.A3 Flank pain, bilateral (principal); N89.8 Other specified noninflammatory disorders of vagina; R82.90 Unspecified abnormal findings in urine
CPT/HCPCS: 74018; 81515; 87086; 87491; 87591

== ENCOUNTER → 2025-05-23 15:14 | Outpatient (BNV) | payer OTHER, SELFPAY | PROVIDERS: Visit Provider Radiology Diagnostic Radiology | DX: R10.A3 Flank pain, bilateral (principal) | CPT/HCPCS: 74018 ==

== ENCOUNTER 2025-06-10 13:20 | Emergency (ER) | payer OTHER, SELFPAY ==
[2025-06-10 13:29] VITALS: BP 133/67; PULSE 75; RESP 18; TEMP 36.6; O2SAT 96; BMI 35.8
--- NOTE | 2025-06-10 13:38 | ED.GENADULT ---
HPI - General Adult General Chief complaint: General Medical Stated complaint: dizzy, weakness Time Seen by Provider: 06/10/25 14:33 Source: patient Mode of arrival: ambulatory Limitations: no limitations History of Present Illness ED Provider: Dr. Cifuentes HPI narrative: This is a 64-year-old female hypertension, diabetes, fatty liver presented hospital today for multiple symptoms of sore throat, dizziness, weakness, elevated blood sugar. Patient stated that she has not been feeling well for the past 4 days. She feels that her head feels heavy. And it was difficult to pick it up. She does complain of some sore throat. She does take metformin for her diabetes. Related Data Home Medications ?Medication ?Instructions ?Recorded ?Confirmed amlodipine 10 mg-valsartan 320 mg 1 tab PO DAILY 07/01/22 04/22/25 tablet betamethasone valerate 0.1 % lotion 1 appl topical BID 07/01/22 04/22/25 cetirizine 10 mg tablet 10 mg PO DAILY 07/01/22 04/22/25 chlorthalidone 25 mg tablet 12.5 mg PO DAILY 07/01/22 04/22/25 lancets 33 gauge (TRUEplus Lancets) #100 ea 07/01/22 05/25/23 naloxone 4 mg/actuation nasal spray 1 spray intranasal 07/01/22 05/25/23 lidocaine 5 % topical patch 1 patch topical DAILY 12/05/23 04/22/25 (Lidoderm) gabapentin 300 mg capsule 300 mg PO TID 06/08/24 04/22/25 mirabegron 25 mg tablet,extended 25 mg PO QAM 07/26/24 04/22/25 release 24 hr (Myrbetriq) atorvastatin 20 mg tablet 20 mg PO BEDTIME 01/11/25 04/22/25 celecoxib 100 mg capsule 100 mg PO BID 01/11/25 04/22/25 duloxetine 40 mg capsule,delayed 40 mg PO BID 01/11/25 04/22/25 release hydroxyzine HCl 25 mg tablet 25 - 50 mg PO BEDTIME PRN insomnia 01/11/25 04/22/25 oxycodone-acetaminophen 5 mg-325 1 tab PO Q6H PRN severe pain 01/11/25 mg tablet melatonin 5 mg tablet 10 mg PO BEDTIME 03/26/25 04/22/25 nystatin 100,000 unit/gram topical topical BID 03/26/25 ointment albuterol sulfate 2.5 mg/3 mL 2.5 mg inhalation Q4H PRN wheezing 04/22/25 04/22/25 (0.083 %) solution for nebulization albuterol sulfate 90 mcg/actuation 2 puff inhalation Q4-6H PRN 04/22/25 04/22/25 aerosol inhaler Shortness Of Breath Previous Rx's ?Medication ?Instructions ?Recorded acetaminophen 325 mg tablet 650 mg (2 x 325 mg) PO Q6H PRN 12/03/20 Pain, Mild (Pain Scale 1-3) 30 days #240 tabs hydrocortisone 2.5 % topical cream 1 appl [place] BEDTIME PRN hemorrhoids 05/25/23 with perineal applicator 30 days #30 grams (Proctosol HC) prednisone 10 mg tablet 10 mg PO DIRECTED #50 tabs 08/31/24 cyclobenzaprine 10 mg tablet 10 mg PO BEDTIME PRN muscle spasm 10/16/24 7 days #7 tabs dicyclomine 20 mg tablet See Rx Instructions PO TID 30 days 11/21/24 #90 tabs budesonide-formoterol HFA 160 2 puff PO BID #10.2 grams 02/18/25 mcg-4.5 mcg/actuation aerosol inhaler (Symbicort) butalbital 50 mg-acetaminophen 325 1 cap PO Q4H PRN pain #14 caps 06/10/25 mg-caffeine 40 mg-codeine 30 mg cap Allergies Allergy/AdvReac Type Severity Reaction Status Date / Time pineapple (PINEAPPLE) Allergy Intermediate TONGUE Verified 06/10/25 13:30 SWELLS latex Allergy Unknown Unknown Verified 06/10/25 13:30 Review of Systems Review of Systems: Pertinent review of systems as mentioned in HPI. All other system otherwise negative. [facility] Past Medical History [facility] Narrative: Medical history as mentioned in HPI Medical History (Updated 06/10/25 @ 18:56 by Stefanie Cifuentes DO) Irritable bowel syndrome with constipation Environmental allergies Hypertension Hemorrhoids Diverticulosis large intestine w/o perforation or abscess w/o bleeding Encounter for screening colonoscopy Epigastric pain Gastric outlet obstruction Complications of bariatric procedures Elevated cholesterol Full dentures Asthma Palpitations Diabetes mellitus Obesity Primary osteoarthritis of knees, bilateral Surgical History H/O perineoplasty H/O bariatric surgery History of bladder surgery History of total bilateral knee replacement Hx of colonoscopy Hx of reduction mammoplasty Hx of tonsillectomy History of H/O Spinal surgery Family History Family History Mother Hx of acute arthritis Father History of Parkinson's disease Social History Social History Household Members Other:: Daughter Housing: House Are you a primary child care giver to a significant other at home: No Do you presently have visiting nurse or other home services: No Alcohol intake: never Patient Tobacco Use Status: Never used Tobacco Advance Directives: No Advance Directives Information Provided: No Current occupational status: disabled Current occupation: rt handed Sexual orientation: Straight/Heterosexual Gender identity: Female Physical Exam ED Exam Exam: General: Pleasant, no distress, interacting appropriately Head: Normacephalic, atraumatic ENT: oral mucosa moist, neck supple, no tracheal deviation Cardiovascular: regular rate, regular rhythm, no murmurs, rubbing, gallops Respiratory: CTAB, no wheeze, rales, rhonchi Gastrointestinal: Soft, non distended, non tender, non guarding Extremities: No limb pain or swelling, no calf tenderness Neurological: Awake and alert, no facial droop noted, no focal neurological deficit Skin: Warm and dry Psychiatric: Appropriate mood and thoughts Vital Signs: Vital Signs - 24 hr 06/10/25 13:29 06/10/25 17:55 Temperature 97.8 F 97.0 F Pulse Rate 75 Respiratory Rate 18 16 Blood Pressure 133/67 Pulse Oximetry 96 98 Oxygen Delivery Method Room Air Room Air BMI result Body Mass Index 35.8 Course Course Course Narrative: This is an RME: Additional HPI, ROS, PE not included below will be deferred to primary provider. RME assessment and note performed by: Brittany Alfonso PA-C This is a 64-year-old female, with a past medical history of hypertension, diabetes, asthma, who presents emergency department with concerns of dizziness, generalized weakness, and feeling as though her sugars have been elevated. She states that she has been feeling like this for the last 4 days. She is neurologically intact. Speaking in full sentences under no acute distress. Plan: Labs, EKG, further ER eval needed Medications Administered Discontinued Medications Generic Name Dose Route Start Last Admin Trade Name Grayson PRN Reason Stop Dose Admin Acetaminophen 975 mg 06/10/25 14:45 06/10/25 15:02 Acetaminophen 325 Mg Tablet PO 06/10/25 14:46 975 mg ONCE ONE Administration Lactated Ringer's 1,000 mls @ 999 mls/hr 06/10/25 14:45 06/10/25 16:11 Lr IV 06/10/25 15:45 Infused .Q1H1M RAGHU Infusion Magnesium Sulfate 2 gm in 50 mls @ 50 mls/hr 06/10/25 16:42 06/10/25 16:49 Magnesium Sulfate/H2o IV 06/10/25 17:41 50 mls/hr ONCE ONE Administration Ketorolac Tromethamine 15 mg 06/10/25 16:42 06/10/25 16:50 Ketorolac Tromethamine 15 Mg/Ml Vial IVPUSH 06/10/25 16:43 15 mg ONCE ONE Administration Metoclopramide HCl 5 mg 06/10/25 16:42 06/10/25 16:50 Metoclopramide Hcl 10 Mg/2 Ml Vial IV 06/10/25 16:43 5 mg ONCE ONE Administration Medical Decision Making Medical Decision Making [facility] Narrative: This is a 64-year-old female presented hospital today for evaluation of dizziness, fatigue, lightheadedness for the past 4 days. With symptoms of sore throat. I reviewed patient's lab work. Patient has no leukocytosis. Patient chemistries did show slight elevation in BUN. Glucose is 197 on lab work here. Troponins negative. UA shows small leuk esterase. Renal ultrasound was obtained from provider in triage. This was negative. EKG shows normal sinus rhythm no sign of cardiac arrhythmia We will plan to give patient a bolus IV fluid and reassess. Patient's symptoms has improved overall however she is still complaining of headache at this time. Patient is neurologically intact I do not think this headache is intracranial bleed or any intracranial abnormality. I suspect patient likely has some viral syndrome at this time. We will plan to prescribe the patient some Fioricet encouraged her to follow up with the primary care doctor. supervisor paper machine was used for this encounter. Patient will be discharged. Differential Diagnosis Differential Diagnoses: The differential diagnosis associated with the presentation includes Dehydration, hyperglycemia, metabolic acidosis, UTI Lab Data MDM Lab Attestation statement: I reviewed the patient's lab results. 06/10/25 13:55 06/10/25 13:55 Labs: Lab Results 06/10/25 06/10/25 06/10/25 Range/Units 13:55 14:52 14:59 WBC 8.9 (4.8-10.8) X10*3/uL RBC 4.47 (4.20-5.50) X10*6/uL Hgb 14.5 (12.0-16.0) g/dl Hct 41.8 (37.0-47.0) % MCV 93.5 (80.0-98.0) fL MCH 32.4 (27.0-33.0) pg MCHC 34.7 (31.0-35.0) g/dl RDW 12.7 (11.0-16.0) % Plt Count 246 (160-400) X10*3/uL MPV 9.1 L (9.4-12.3) fL Immature Gran % (Auto) 0.3 (0.0-0.4) % Neut % (Auto) 69.2 (45-73) % Lymph % (Auto) 19.4 L (20-40) % [place] % (Auto) 9.2 (2-11) % Eos % (Auto) 1.6 (0-4) % Baso % (Auto) 0.3 (0-2) % Lymph # (Auto) 1.7 (1.2-4.9) X10*3/uL [place] # (Auto) 0.8 (0.1-1.2) X10*3/uL Eos # (Auto) 0.1 (0.0-0.4) X10*3/uL Baso # (Auto) 0.0 (0.0-0.2) X10*3/uL Abs Immat Gran (auto) 0.03 (0.00-0.03) X10*3/uL Absolute Neuts (auto) 6.2 (2.0-8.3) x10*3/uL Absolute Nucleated RBC 0.000 (0.0-0.012) X10*3/uL Nucleated RBC % (auto) 0.0 (0.0-0.2) /100WBC Sodium 138 (135-145) mmol/L Potassium 3.9 (3.3-5.1) mmol/L Chloride 102 (96-108) mmol/L Carbon Dioxide 26 (22-29) mmol/L Anion Gap 14 (12-20) BUN 23 H (9-16) mg/dL Creatinine 1.22 (0.5-1.4) mg/dL Estim Creat Clear Calc 49.4 Estimated GFR 44 POC Glucose 197 H (60-115) mg/dL Random Glucose 218 H (60-115) mg/dL Calcium 9.4 (8.4-10.2) mg/dL Magnesium 1.8 (1.6-2.6) mg/dL Total Bilirubin 0.6 (0.0-1.0) mg/dL Direct Bilirubin 0.2 (0.0-0.5) mg/dL AST 37 H (5-31) U/L ALT 29 (0-31) U/L Alkaline Phosphatase 127 H (39-117) U/L Troponin I High Sens < 2.7 (<3.5-17.0) ng/L Total Protein 7.2 (6.5-8.0) g/dL Albumin 4.1 (3.5-5.0) g/dL Urine Color Dark Yellow Urine Appearance Clear Urine pH 5.5 (5.0-9.0) Ur Specific [place] 1.025 (1.005-1.025) Urine Protein Trace (Neg-Trace) mg/dL Urine Glucose (UA) Negative (Negative) mg/dL Urine Ketones Trace (Negative) mg/dL Urine Blood Negative (Negative) Urine Nitrite Negative (Negative) Ur Leukocyte Esterase Small (1+) H (Negative) Urine RBC 0-2 (0-2) /HPF Urine WBC 0-5 (0-5) /HPF Ur Squamous Epith Cells 6-10 (0-2) /HPF Calcium Oxalate Crystal Present Urine Bacteria None Seen (None Seen) Hyaline Casts 3-5 (0-2) /LPF Influenza Type A (PCR) NEGATIVE (Negative) Influenza Type B (PCR) NEGATIVE (Negative) RSV RNA Qual (PCR) NEGATIVE (Negative) SARS-CoV-2 RNA (RT-PCR) NEGATIVE (Negative) Discharge Plan Discharge Clinical Impression: Dizziness, Hyperglycemia, Headache Patient Disposition: Home, Self-Care Additional Instructions: You can take the Fiorcet as needed for headache. Follow up with your primary care doctor. IF you begin to have slurred speech difficulty with walking return to ED, Prescriptions: New djebgfebdb-nkyemxwomq-loh-cod [id number] mg capsule 1 cap PO Q4H PRN (Reason: pain) Qty: 14 0RF No Action budesonide-formoterol [Symbicort] 160-4.5 mcg/actuation HFA aerosol inhaler 2 puff PO BID Qty: 10.2 6RF acetaminophen 325 mg Tablet 650 mg PO Q6H PRN (Reason: Pain, Mild (Pain Scale 1-3)) 30 Days Qty: 240 0RF cyclobenzaprine 10 mg tablet 10 mg PO BEDTIME PRN (Reason: muscle spasm) 7 Days Qty: 7 0RF gabapentin 300 mg capsule 300 mg PO TID albuterol sulfate 2.5 mg /3 mL (0.083 %) solution for nebulization 2.5 mg inhalation Q4H PRN (Reason: wheezing) albuterol sulfate [Proventil HFA] 90 mcg/actuation Hfa Aerosol Inhaler 2 puff INHALATION Q4-6H PRN (Reason: Shortness Of Breath) (DME) lancets [TRUEplus Lancets] 33 gauge misc See Rx Instructions .ROUTE BID Qty: 100 Rx Instructions: As directed chlorthalidone 25 mg tablet 12.5 mg PO DAILY naloxone 4 mg/actuation spray,non-aerosol 1 spray intranasal cetirizine 10 mg tablet 10 mg PO DAILY betamethasone valerate 0.1 % lotion 1 appl topical BID amlodipine-valsartan 10-320 mg tablet 1 tab PO DAILY lidocaine [Lidoderm] 5 % adhesive patch,medicated 1 patch topical DAILY mirabegron [Myrbetriq] 25 mg tablet extended release 24 hr 25 mg PO QAM dicyclomine 20 mg tablet See Rx Instructions PO TID 30 Days Qty: 90 6RF Rx Instructions: 1 tab qhs, 1 tab qam scheduled, 1 tablet prn breakthrough cramps orally 3 times a day; hydrocortisone [Proctosol HC] 2.5 % cream with perineal applicator 1 appl [place] BEDTIME PRN (Reason: hemorrhoids) 30 Days Qty: 30 3RF prednisone 10 mg tablet 10 mg PO DIRECTED Qty: 50 0RF Rx Instructions: Take 4 pills daily for 5 days, then go down by 1 tab every 5 days oxycodone-acetaminophen 5-325 mg tablet 1 tab PO Q6H PRN (Reason: severe pain) duloxetine 40 mg capsule,delayed release(DR/EC) 40 mg PO BID atorvastatin 20 mg tablet 20 mg PO BEDTIME hydroxyzine HCl 25 mg tablet 25 - 50 mg PO BEDTIME PRN (Reason: insomnia) celecoxib 100 mg capsule 100 mg PO BID nystatin 100,000 unit/gram ointment topical BID melatonin 5 mg tablet 10 mg PO BEDTIME Print Language: Tanzanian
--- NOTE | 2025-06-10 13:40 | ECG_ITS ---
Test Reason : dizziness Blood Pressure : */* mmHG Vent. Rate : 76 BPM Atrial Rate : 76 BPM P-R Int : 132 ms QRS Dur : 82 ms QT Int : 412 ms P-R-T Axes : 49 14 32 degrees QTcB Int : 463 ms Normal sinus rhythm Normal ECG When compared with ECG of 13-Sep-2021 19:33, No significant change was found Referred By: Brittany Alfonso Electronically Signed By: Ramos Lieberman
[2025-06-10 14:01] LABS: MANUAL DIFF FLAG NO
[2025-06-10 14:02] LABS: Hematocrit 41.8 % (37.0-47.0); Hemoglobin 14.5 g/dl (12.0-16.0); Imm Gran Abs Auto 0.03 X10*3/uL (0.00-0.03); Imm Gran Pct Auto 0.3 % (0.0-0.4); Lymphocytes Absolute Auto 1.7 X10*3/uL (1.2-4.9); Mean Corpuscular HGB Conc 34.7 g/dl (31.0-35.0); Mean Corpuscular Hemoglobin 32.4 pg (27.0-33.0); Mean Corpuscular Volume 93.5 fL (80.0-98.0); NRBC Abs Auto 0.000 X10*3/uL (0.0-0.012); NRBC Pct Auto 0.0 /100WBC (0.0-0.2); Platelet Count 246 X10*3/uL (160-400); Red Blood Count 4.47 X10*6/uL (4.20-5.50); White Blood Count 8.9 X10*3/uL (4.8-10.8)
[2025-06-10 14:26] LABS: Troponin-I High Sensitivity < 2.7 ng/L (<3.5-17.0)
[2025-06-10 14:33] LABS: Alanine Aminotransferase 29 U/L (0-31); Albumin Level 4.1 g/dL (3.5-5.0); Alkaline Phosphatase 127 U/L (39-117); Anion Gap 14 (12-20); Aspartate Amino Transferase 37 U/L (5-31); Blood Urea Nitrogen 23 mg/dL (9-16); Calcium 9.4 mg/dL (8.4-10.2); Carbon Dioxide 26 mmol/L (22-29); Chloride 102 mmol/L (96-108); Creatinine Clr Calc Pharmacy 49.4; Estimated Glomerular Filt Rate 44; Magnesium 1.8 mg/dL (1.6-2.6); Potassium 3.9 mmol/L (3.3-5.1); Sodium 138 mmol/L (135-145); Total Protein 7.2 g/dL (6.5-8.0)
[2025-06-10 14:40] LABS: Resp Syncy Virus RNA Qual PCR NEGATIVE (Negative); SARS COV2 PCR INHOUSE NEGATIVE (Negative)
[2025-06-10] MEDS: Lactated Ringers 1,000 ML 999 ML IV (15:00)
[2025-06-10 15:11] LABS: Appearance Urine Clear; Glucose Urine UA Negative (Negative); PH 5.5 (5.0-9.0); Specific Gravity - Urine 1.025 (1.005-1.025); UMIC TRIGGER UACC YES
[2025-06-10 15:15] LABS: Glucose, Whole Blood 197 mg/dL (60-115)
[2025-06-10 15:23] LABS: UACC Culture Trigger YES
[2025-06-10] MEDS: Magnesium Sulfate/H2O 2 GM/50 ML PIGGYBACK IV (16:49)
[2025-06-10 17:55] VITALS: RESP 16; TEMP 36.1; O2SAT 98
--- OUTSIDE RECORDS SUMMARY | 2025-06-10 19:21 | XMS_ITS | Clinical Summary ---
Author Organization [facility] it Address [address] [place] [address] Care Team Providers Care Nursing Program Director Name Role Phone Meryl Montes Primary Care Provider Surgical History Surgery Date Site/Laterality Comments BREAST REDUCTION PROCEDURE: [place] BREAST REDUCTION BACK SURGERY PROCEDURE: HISTORICAL BACK SURGERY; COMMENT: L4-5 rt L5-S1 decomp 05/26/18 Medical History Medical History Date Comments Asthma DX:Asthma Diabetes mellitus type 2, co ntrolled, with complications (CMS/HCC V24, CMS/HCC V28) DX:Diabetes mellitus type 2, controlled, with complications ([facility]) Essential hypertension DX:Essent ial hypertension Depressive disorder [...] Risk Assessment 11/05/2024 COVID-19 Vaccine (1 - 2024-2 6 season) 2025 Influenza Vaccine (#1) 2025 RSV [...] age to complete this topic Care Teams Nursing Program Director Relationship Specialty Start Date End Date Meryl Montes [address] [place] [phone] PCP - General 05/07/22
[2025-06-10 19:35] VITALS: BP 152/76; PULSE 71; RESP 16; TEMP 36.6; O2SAT 97
--- NOTE | 2025-06-11 10:39 | PC.NURSE ---
Reglan infusion finished 50ml.
== END 2025-06-10 19:36 | disposition home or self-care (01) ==
PROVIDERS: Physician Assistant Medical; Emergency Provider Student in an Organized Health Care Education/Training Program; PCP Internal Medicine
DX: R42 Dizziness and giddiness (principal); E11.65 Type 2 diabetes mellitus with hyperglycemia; R51.9 Headache, unspecified; R53.1 Weakness; I10 Essential (primary) hypertension; J02.9 Acute pharyngitis, unspecified; Z03.818 Encounter for observation for suspected exposure to other biological agents ruled out
CPT/HCPCS: 36415; 76775; 80048; 80076; 81001; 82947; 83735; 84484; 85025; 87086; 87637; 93005; 96361; 96365; 96366; 96375; 99284; J1885; J2765; J3475; J7120

== ENCOUNTER → 2025-06-10 13:40 | Outpatient (BNV) | payer OTHER, SELFPAY | PROVIDERS: Emergency Provider Student in an Organized Health Care Education/Training Program; PCP Internal Medicine; Visit Provider Internal Medicine Cardiovascular Disease | DX: R42 Dizziness and giddiness (principal) | CPT/HCPCS: 93010 ==

== ENCOUNTER → 2025-06-10 15:10 | Outpatient (BNV) | payer OTHER, SELFPAY | PROVIDERS: PCP Internal Medicine; Visit Provider Radiology Diagnostic Radiology | DX: R10.A3 Flank pain, bilateral (principal) | CPT/HCPCS: 76775 ==